=== PATIENT | female | born 1980 | race Caucasian/White ===

== ENCOUNTER 2024-03-14 17:57 | Inpatient (IN) | payer OTHER, SELFPAY ==
[2024-03-14] VITALS (10 sets, daily range): BP systolic 129–165; BP diastolic 74–95; PULSE 65–82; RESP 16–24; TEMP 36.6–36.9; O2SAT 98–100; BMI 25.0; BMI 26.4
--- NOTE | 2024-03-14 18:09 | CT_ITS ---
PROCEDURE INFORMATION: Exam: CT Abdomen And Pelvis With Contrast Exam date and time: 03/14/2024 6:44 PM Age: 44 years old Clinical indication: Abdominal pain; Additional info: Abd pain, HX biliary atresia TECHNIQUE: Imaging protocol: Computed tomography of the abdomen and pelvis with contrast. Radiation optimization: All CT scans at this facility use at least one of these dose optimization techniques: automated exposure control; mA and/or kV adjustment per patient size (includes targeted exams where dose is matched to clinical indication); or iterative reconstruction. Contrast material: ISOVUE; Contrast volume: 75 ml; Contrast route: IV; COMPARISON: No relevant prior studies available. FINDINGS: Liver: Fatty liver infiltration. Pneumobilia. No mass. Gallbladder and biliary ducts: Normal. No calcified stones. No ductal dilation. Pancreas: Peripancreatic fat stranding/fluid collection along pancreatic head to mid body. Indeterminate pancreatic ductal dilatation along the segment. Poorly defined and characterized pancreas from head to body. Spleen: Normal. No splenomegaly. Adrenal glands: Normal. No mass. Kidneys and ureters: Normal. No hydronephrosis. Stomach and bowel: Unremarkable. No obstruction. No mucosal thickening. Appendix: No evidence of appendicitis. Intraperitoneal space: Unremarkable. No free air. No significant fluid collection. Vasculature: Unremarkable. No abdominal aortic aneurysm. Lymph nodes: Unremarkable. No enlarged lymph nodes. Urinary bladder: Unremarkable as visualized. Reproductive: Unremarkable as visualized. Bones/joints: Unremarkable. No acute fracture. Soft tissues: Unremarkable. IMPRESSION: 1. Poorly defined pancreas with peripancreatic fat stranding/fluid collection suspected from head to body with poorly defined pancreatic parenchymal contour and equivocal ductal dilatation. Query pancreatitis symptoms. Consider further imaging clarification with dedicated MRI. 2. Pneumobilia. Considerations include biliary valvular incompetence and/or recent history of instrumentation.
--- NOTE | 2024-03-14 18:09 | ECG_ITS ---
APPROVED REPORT Exam: Resting ECG HR:60 bpm ECG Measurements Heart Rate 60 AXES AZ 146 P 62 QRSd 96 QRS 75 QT 404 T 52 QTc 405 Conclusion Sinus rhythm Electronically signed by : NICOLE SANTIAGO, 03/16/2024 11:32:06
--- OUTSIDE RECORDS SUMMARY | 2024-03-14 18:13 | XMS_ITS | Clinical Summary ---
Author Organization [facility] Address [facility] [place] [address] Phone Care Team Providers Care Clinical Analyst Name Role Phone Abdifatah Uriarte MD Unavailable [phone] Mini Reeder MD Primary Care Provider [phone] Allergies Active Allergy Reactions Criticality Noted Date Comments Latex Rash 04/22/2017 Latex, Natural Rubber Rash 11/07/2016 Metronidazole Rash Low 04/20/2018 Morphine Nausea And Vomiting 02/27/2013 Hydrocodone-Acetaminophen Itching 11/26/2022 Medications aspirin 81 mg Oral Tablet, Delayed Release (E.C.)Indication s:ASD (atrial septal defect),H/O Amplatzer atrial septal defect closure TAKE ONE TABLET BY MOUTH DAILY 90 Tab 2 03/20/20 20 Active ergocalciferol (VITAMIN D) 1,250 mcg (50,000 unit) Oral Capsule Take 1 Capsule by mouth once a week. 12 Capsule 2 08/27/19 24 Active medroxyPROGESTER one (DEPO-PROVERA) 150 mg/mL IM SuspensionIndica tions:Excessive and frequent menstruation INJECT ONE ML INTRAMUSCULARLY FOR 1 DOSE 1 mL 4 10/28/19 24 Active amLODIPine (NORVASC) 2.5 mg Oral Tablet Take 1 tablet by mouth once daily 90 Tablet 12/02/19 24 Active metoprolol succinate (TOPROL-XL) 25 mg Oral Tablet Sustained Release 24 hrIndications:Pa lpitations Take 1 tablet by mouth once daily 90 Tablet 02/11/20 24 Active amoxicillin (AMOXIL) 875 mg Oral Tablet Take 1 Tablet by mouth 2 times daily for 10 days. 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 Did have ext drain temporarily after , 2008 or so. Migraine without aura 09/13/2014 Overactive child 06/15/2013 Back pain 06/18/2012 Thyroid mass 06/18/2012 Allergic rhinitis 02/27/2010 Resolved Problems Problem Noted Date Diagnosed Date Resolved Date Diarrhea 12/26/2017 10/09/2018 Overview (05/01/2018): Overview: Added automatically from request for surgery [id number] Anemia 11/19/2017 10/09/2018 Overview (05/01/2018): Overview: Added automatically from request for surgery [id number] Status post exploratory laparotomy 11/07/2016 10/09/2018 Obesity 09/13/2014 04/19/2016 Normal pelvic exam 03/08/2014 9 Acute pancreatitis 05/27/2011 9 Cholangitis 12/11/2006 10/09/2018 Encounters Date Type Department Care Team Description 03/03/2024 Telephone [facility] [address] [place] [address] Mini Reeder MD Results (Labs 02/26) 03/02/2024 Orders Only [facility] [address] [place] [address] Mini Reeder MD 02/27/2024 2:45 PM EST Office Visit [facility] [address] [place] [address] Mini Reeder MD Dysuria (Primary Dx); Hematuria, unspecified type 02/27/2024 Orders Only [facility] [address] [place] [facility] [place] [address] Mini Reeder MD Hematuria, unspecified type (Primary Dx) 02/26/2024 Travel 02/09/2024 Telephone [facility] [address] [facility] [place] [address] Bud Jones APRN Results 02/09/2024 Refill [facility] [address] [address] Migue Anne MD Medication Refill 02/07/2024 9:00 AM EDT Office Visit [facility] [address] [place] [address] Bud Jones, PACO Annual physical exam (Primary Dx); Chronic midline posterior neck pain; Vitamin B 12 deficiency; Depo-Provera contraceptive status 02/02/2024 Telephone [facility] [address] [place] [address] Mini Reeder MD Appointment Needed (Dep shot ) from Last 3 Months Immunizations Name Administration Dates Next Due DTaP (Daptacel) 04/22/2008 Influenza Patient Reported 06/25/2018 Tdap 10/27/2019,09/26/2015 Surgical History Surgery Date Site/Laterality Comments ABDOMEN SURGERY as , with CCX, Appy for bile duct APPENDECTOMY couple mos old CHOLECYSTECTOMY couple mos old. ABDOMINAL EXPLORATION SURGERY 11/07/2016 Median Arcuate Ligament Division Deborah Parker MD, for biliary stenosis ASD REPAIR 07/09/2017 Amplatzer septal occluder UPPER GASTROINTESTINAL ENDOSCOPY 12/04/2017 at , Dr. Aaron Rocha COLONOSCOPY 01/12/2018 Dr. Aaron Rocha, with [facility]. 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 Diabetes Maternal Grandfather Heart Disease Maternal Grandfather Lung Cancer Maternal Grandfather Breast Cancer Maternal Grandmother COPD Mother Diabetes Mother Heart Attack Mother Heart Disease Mother stentsx7 Heart Failure Mother High Blood Pressure Mother Kidney Disease Mother melanoma Mother treated with larkin rgery Cancer Paternal Aunt uterine Stroke Paternal Grandmother Cancer Paternal Uncle ? type Cervical Cancer Sister 1 Di Ovarian Cancer Sister 1 Di Uterine Cancer Sister 1 Di Relation Name Status Comments Father Maternal Grandfather Maternal Grandmother Mother Paternal Aunt Paternal Grandmother Paternal Uncle Sister 1 Di Alive Sister 2 Alive Social History Tobacco Use Types Packs/Day Years Used Date Smoking Tobacco: Former Cigarettes 0.5 0.2 1 - 04/21/1994 Smokeless Tobacco: Never Alcohol Use Standard Drinks/Week Comments No 0 (1 standard drink = 0.6 oz pur e alcohol) Overall Financial Resource Strain (CARDIA) Answe r Date Recorded Difficulty of Paying Living Expenses Not hard at all 10/29/2019 PHQ-2 Answer Date Recorded PHQ-2 Total Score 0 08/26/2023 Hunger Vital Sign Answer Date Recorded Worried About Running Out of Food in the Last Ye ar Never true 10/29/2019 Ran Out of Food in the Last Year Never true 10/29/2019 PRAPARE - Transportation Answer Date Re corded Lack of Transportation (Medical) No 10/29/2019 Lack of Transportation (Non-Medical) No 10/29/2019 Sexually Active Control Partners Comments Yes Injection Male Comments No Sex and Gender Information Value Date Recorded Sex Assigned at Not on file Legal Sex Female 1:46 PM EDT Gender Identity Not on file Sexual Orientation Not on file Obstetrics History Para Term AB IAB SAB Ectopic Multiple Livin g Live Births 4 2 2 2 2 Date Outcome GA Total Labor Labor/2nd/3rd Weight Sex Type Anes PTL Zarina A1 A5 Name Clin Term Vag-Spo nt Term Vag-Spo nt SAB SAB Comments Age of menarche 12. 2 Vagina l deliveries. Abnormal pap X3. ECC and Cervical bx 10/21/2019 JACQUI I , LSIL On Depo-provera X 2 years. LMP 2 years ago. Last Filed Vital Signs Vital Sign Reading Time Taken Comments Blood Pressure 126/74 02/27/2024 2:55 PM EST Pulse 80 06/21/2023 9:30 AM EST Temperature 36.8 ??C (98.2 ??F) 02/27/2024 2:55 PM ES T Respiratory Rate 20 06/21/2023 9:30 AM EST Oxygen Saturation 98% 06/21/2023 9:30 AM EST Inhaled Oxygen Concentration - - Weight 74.4 kg (164 lb) 02/27/2024 2:55 PM EST Height 162.6 cm (5' 4 ) 02/27/2024 2:55 PM EST Body Mass Index 28.15 02/27/2024 2:55 PM EST Plan of Treatment Upcoming Encounters Date Type Department Care Team (Late st Contact Info) Description 04/24/2024 10:45 AM EST Clinical Support [facility] [address] [place] [address] Health Maintenance Due Date Last Done Comments COVID-19 Vaccine ( season) 2023 Influenza Vaccine (#1) 2023 9, 04/18/2017 (Declined), 04/19/2016 (Declined), Additional history exists Hepatitis B Vaccine (1 of 3 - 19+ 3-dose series) 08/25/2024 Postponed from 2001 (Patient Declined) Annual Wellness Exam 02/06/2025 02/07/2024, 10/09/2018, 04/18/2017, Additional history exists Breast Cancer Screening 08/25/2025 08/26/19 24, 07/10/2022, 10/30/2020, Additional history exists Pap Smear 06/17/2026 06/17/2023, 05/23, 06/04/2022, Additional history exists Cervical Cancer Screening 06/17/2028 HPV/Pap Cotest 06/17/2028 06/17/2023 DTaP/TDaP/Td (4 - Td or Tdap) 10/26/2029 10/27/2019, 09/26/2015, 04/22/2008 Pneumococcal Vaccine 0-64 Aged Out No longer eligible based on patient's age to complete this topic Goals Goal Patient Goal Type Associated Problems Recent Progress Patient-Stated? Author Maintain a healthy diet, exercise regularly and maintain an ideal body weight General No Thea Rubio MD Stay Tobacco Free Lifestyle No Thea Rubio MD Medical Devices Implanted Type Area Oracle Database Developer Device Identifier Shelf Expiration Date Model / Serial / Lot Occluder Septal Amplatzer 7 Fr 14 Mm - [id number] Implanted:Qty: 1 on 07/09/2017 by Genaro Ibarra MD at [facility] [id number] / / [id number] Procedures Procedure Name Priority Date/Time Associated Diagnosis Comments URINE CULTURE (NO STAIN) Routine 02/27/2024 4:05 PM EST Hematuria, unspecified type SEP URINALYSIS POC Routine 02/27/2024 3: 57 PM EST Dysuria Hematuria, unspecified type VITAMIN B12/ FOLIC ACID Routine 02/07/2024 10:16 AM EDT Vitamin B 12 deficiency THYROID STIMULATING HORMONE Routine 02/07/2024 10:16 AM EDT Annual physical exam LIPID SCREEN Routine 02/07/2024 10:16 AM EDT Annual physical exam HEMOGLOBIN A1C Routine 02/07/2024 10:16 AM EDT Annual physical exam COMPREHENSIVE METABOLIC PANEL Routine 02/07/2024 10:16 AM EDT Annual physical exam CBC Routine 02/07/2024 10:16 AM EDT Annual physical exam MM MAMMO DIGITAL MADELEINE SCREEN BILAT Routine 08/26/2023 7:37 AM EDT Encounter for screening mammogram for malignant neoplasm of breast [facility] CYTOLOGY ORDER Routine 06/17/2023 9:36 AM EST Well woman exam with routine gynecological exam from Last 3 Months or Most Recently Relevant to Health Maintenance Results * (ABNORMAL) URINE CULTURE (NO STAIN) (02/27/2024 4:05 PM EST) Culture Positive Growth(A) 03/02/2024 11:20 AM EST [facility] Culture 20,000 CFU/mL Streptococcus agalactiae (Group B) SUSCEPTIB ILITY RESULT 03/02/2024 11:20 AM EST [facility] Comment: isolated in addition to multiple bacterial species consistent with urogenital commensal organisms. No further workup. Urine URINE SPECIMEN COLLECTION, CLEAN CATCH / Unknown 02/27/2024 4:05 PM EST 02/27/2024 4:05 PM EST us Mini Reeder MD MICROBIOLOGY - GENERAL ORDERAB LES Final Result [facility] [address] [facility] , [place] [address] * (ABNORMAL) SEP URINALYSIS POC (02/27/2024 3:57 PM EST) UA Color POC Yellow Color 02/27/2024 4:00 PM EST [facility] [place] [facility] Appear POC Clear Clear 02/27/2024 4:00 PM EST [facility] [place] [facility] Gluc POC Negative Negative mg/dL 02/27/2024 4:00 PM EST [facility] [place] [facility] Bili POC Negative Negative 02/27/2024 4:00 PM EST [facility] [place] [facility] Ketones POC Negative Negative mg/dL 02/27/2024 4:00 PM EST [facility] [place] [facility] SG POC 1.015 1.001 - 1.035 no units 02/27/2024 4:00 PM EST [facility] [place] [facility] Blood POC Trace-Intact (A) Negative 02/27/2024 4:00 PM EST [facility] [place] [facility] pH POC 7.0 5.0 - 8.0 pH 02/27/2024 4:00 PM EST [facility] [place] [facility] Protein POC Negative Negative mg/dL 02/27/2024 4:00 PM EST [facility] [place] [facility] Urobilinogen POC 1.0 0.2, 1.0 02/27/2024 4:00 PM EST [facility] [place] [facility] Nitrite POC Negative Negative 02/27/2024 4:00 PM EST [facility] [place] [facility] Leuk Est POC Small(A) Negative 4:00 PM EST [facility] [place] Urine URINE SPECIMEN COLLECTION / Unknown 02/27/2024 3:57 PM EST 02/27/2024 4:00 PM EST Mini Reeder MD POINT OF CARE TEST ORDERABLES Final Result Performing Organization Address [facility] de Phone Number [address] [address] * VITAMIN B12/ FOLIC ACID (02/07/2024 10:16 AM EDT) Vitamin B12 416 232 - 1,245 pg/mL 02/07/2024 3:28 PM EDT [email or web address] Folate 9.21 >=4.80 ng/mL 02/07/2024 3:28 PM EDT [email or web address] Blood VENOUS BLOOD / Unknown Venipuncture / Unknown 02/07/2024 10:16 AM EDT 02/07/2024 10:16 AM EDT Narrative [email or web address] - 02/07/2024 3:28 PM EDT Ingestion of abimael doses of biotin (>5 mg/day) taken within 8 hours of drawing blood sample can interfere with this immunoassay test. us Bud Jones APRN CHEMISTRY ORDERABLES Final R esult Performing Organization Address City/[facility] Co de Phone Number [email or web address], [facility] [address] [facility] , [address] [place] [phone] * CBC (02/07/2024 10:16 AM EDT) WBC 6.8 3.7 - 10.3 x10(3)/mcL 02/07/2024 2:30 PM EDT [email or web address] RBC 4.75 3.90 - 5.20 x10(6)/mcL 02/07/2024 2:30 PM EDT [email or web address] Hgb 13.4 11.2 - 15.7 g/dL 02/07/2024 2:30 PM EDT [email or web address] Hct 41.8 34.0 - 45.0 % 02/07/2024 2:30 PM EDT [facility] MCV 88.0 80.0 - 100.0 fL 02/07/2024 2:30 PM EDT [facility] MCH 28.2 26.0 - 34.0 pg 02/07/2024 2:30 PM EDT [facility] MCHC 32.1 30.7 - 35.5 g/dL 02/07/2024 2:30 PM EDT [facility] RDW 12.7 <=14.9 % 02/07/2024 2:30 PM EDT [facility] Platelet 319 155 - 369 x10(3)/mcL 02/07/2024 2:30 PM EDT [email or web address], [facility] MPV 9.7 8.8 - 12.5 fL 02/07/2024 2:30 PM EDT [email or web address], [facility] Blood VENOUS BLOOD / Unknown Venipuncture / Unknown 02/07/2024 10:16 AM EDT 02/07/2024 10:16 AM EDT Bud Jones APRN HEMATOLOGY ORDERABLES Final Result Performing Organization Address City/[facility]/ZIP Co de Phone Number [email or web address] [address] [facility] , [place] [address] * THYROID STIMULATING HORMONE (02/07/2024 10:16 AM EDT) [facility] TSH 1.450 0.270 - 4.200 mcIU/mL 02/07/2024 3:09 PM EDT [email or web address], [facility] Blood VENOUS BLOOD / Unknown Venipuncture / Unknown 02/07/2024 10:16 AM EDT 02/07/2024 10:16 AM EDT Narrative [email or web address], [facility] - 02/07/2024 3:09 PM EDT Ingestion of abimael doses of biotin (>5 mg/day) taken within 8 hours of drawing blood sample can interfere with this immunoassay test. Bud Jones APRN CHEMISTRY ORDERABLES Final R esult Performing Organization Address City/[facility]/ZIP Co de Phone Number [facility], [facility] [address] [facility] , [address] [place] [phone] * HEMOGLOBIN A1C (02/07/2024 10:16 AM EDT) [facility] Hgb A1C 5.3 4.2 - 5.6 % 02/07/2024 2:52 PM EDT [facility] Est. Avg Glucose 105 mg/dL 02/07/2024 2:52 PM EDT [facility] Blood VENOUS BLOOD / Unknown Venipuncture / Unknown 02/07/2024 10:16 AM EDT 02/07/2024 10:16 AM EDT Narrative [facility] - 02/07/2024 2:52 PM EDT REFERENCE RANGE: Normal: 4.0-5.6% Pre-diabetes: 5.7-6.4% Provisional diagnosis of diabetes: >6.4% Hgb F>10% and anything which shortens red cell survival, such as hemolytic anemia, or unstable hemoglobin variants such as HbSS, HbSC, or HbCC, will lower the HbA1c value associated with a given level of glycemic control. ? us Bud Jones APRN CHEMISTRY ORDERABLES Final R esult [facility] [address] [facility] , [address] [place] [phone] [facility] 1 [place] [address] * LIPID SCREEN (02/07/2024 10:16 AM EDT) [facility] Cholesterol 161 <200 mg/dL 02/07/2024 3:09 PM EDT [facility] [employer] Comment: < 200 ?Desirable 200 - 239 ? Borderline High >= 240 ?High Triglyceride 74 <150 mg/dL 02/07/2024 3:09 PM EDT [facility] [employer] Comment: < 150 ? Normal 150 - 199 ?Borderline High 200 - 499 ?High ??>= 500 ? Very High HDL 52 >=40 mg/dL 02/07/2024 3:09 PM EDT [facility] Comment: ??> 60 ?Optimal 40 - 60 ?Acceptable ?? < 40 ?Low LDL Calculated 95 <100 mg/dL 02/07/2024 3:09 PM EDT [facility] Comment: < 100 ?Optimal 100 - 129 ? Near or above optimal 130 - 159 ? Borderline High 160 - 189 ? High >= 190 ?Very High Non-HDL-C Calculated 109 <=129 mg/dL 02/07/2024 3:09 PM EDT [email or web address] Comment: <130 ?Desirable 130-159 Above Desirable 160-189 Borderline High 190-219 High >= 220 ??Very High Fasting Specimen? Unknown None 024 3:09 PM EDT [facility] Blood VENOUS BLOOD / Unknown Venipuncture / Unknown 02/07/2024 10:16 AM EDT 02/07/2024 10:16 AM EDT Bud Jones APRN CHEMISTRY ORDERABLES Final R esult Performing Organization Address [facility]/State/ZIP Co de Phone Number [email or web address], [facility] [address] [facility], [address] [place] [phone] [facility] 1 [place] [address] * COMPREHENSIVE METABOLIC PANEL (02/07/2024 10:16 AM EDT) Sodium 141 136 - 145 mmol/L 02/07/2024 3:09 PM EDT [facility] Potassium 4.3 3.5 - 5.0 mmol/L 02/07/2024 3:09 PM EDT [facility] Chloride 106 98 - 107 mmol/L 02/07/2024 3:09 PM EDT [facility] Total CO2 23 22 - 29 mmol/L 02/07/2024 3:09 PM EDT [facility] Anion Gap 12 7 - 16 mmol/L 02/07/2024 3:09 PM EDT [facility] Calcium 9.0 8.6 - 10.4 mg/dL 02/07/2024 3:09 PM EDT [facility] Glucose Lvl 79 70 - 99 mg/dL 02/07/2024 3:09 PM EDT [facility] BUN 10 6 - 20 mg/dL 02/07/2024 3:09 PM EDT [facility] Creatinine 0.82 0.51 - 1.30 mg/dL 02/07/2024 3:09 PM EDT [facility] Albumin 3.9 3.5 - 5.2 gm/dL 02/07/2024 3:09 PM EDT [facility] Total Protein 6.9 6.4 - 8.3 gm/dL 02/07/2024 3:09 PM EDT [facility] Bili Total 0.4 0.2 - 1.3 mg/dL 02/07/2024 3:09 PM EDT [facility] ALT 5 <=41 U/L 02/07/2024 3:09 PM EDT [facility] AST 15 <=40 U/L 02/07/2024 3:09 PM EDT [facility] Alk Phos 77 36 - 123 U/L 02/07/2024 3:09 PM EDT [facility] eGFR (CKD-EPIcr 2020) 91 >=60 mL/min/1.7 3 m2 02/07/2024 3:09 PM EDT [facility] Comment:Estimated GFR was ca lculated using the CKD-EPIcr (2020) equation refit without race. The equation is recommended by the National [employer] - [place] [employer] Task Force. Blood VENOUS BLOOD / Unknown Venipuncture / Unknown 02/07/2024 10:16 AM EDT 02/07/2024 10:16 AM EDT us Bud Jones SAUSAGE STRINGER CHEMISTRY ORDERABLES Final R esult [facility] [address] [facility] [address] [place] [address] [address] * MM MAMMO DIGITAL MADELEINE SCREEN BILAT (08/26/2023 7:37 AM EDT) Anatomical Region Laterality Modality Breast Bilateral Mammography 08/26/2023 7:54 AM EDT Impressions 08/26/2023 7:54 AM EDT Negative ??([id number]) ~ RECOMMENDATION: Routine screening mammogram in 1 year. ~ DISCLAIMER * Any patient with a palpable abnormality, unexplained by breast imaging, should be managed on clinical basis by the attending physician. * Breast imaging has a false negative rate of 15%. * The patient was notified by mail of the results of this examination. *The patient's information was entered into a reminder system with a target due date for the next mammogram, in accordance with the [place] [employer] and the Society of Breast Imaging recommendations. Narrative 08/26/2023 7:54 AM EDT Procedure:MM MAMMO DIGITAL MADELEINE SCREEN BILAT ~ Reason for exam: screening, asymptomatic. Z12.31-Encounter for screening mammogram for malignant neoplasm of rokshl-KLE-87-CM ~ MM MAMMO DIGITAL MADELEINE SCREEN BILAT Bilateral CC and MLO view(s) were taken. The breast tissue is heterogeneously dense. ??This may lower the sensitivity of mammography. Prior study comparison: Compared with prior studies the most recent being 07/10/22, 10/30/20 No mammographic evidence of malignancy. ~ Procedure Note Charisma Navarrete MD - 08/26/2023 Procedure:MM MAMMO DIGITAL MADELEINE SCREEN BILAT ~ Reason for exam: screening, asymptomatic. Z12.31-Encounter for screening mammogram for malignant neoplasm of uyhksb-BHC-87-CM ~ MM MAMMO DIGITAL MADELEINE SCREEN BILAT Bilateral CC and MLO view(s) were taken. The breast tissue is heterogeneously dense. This may lower thesensitivity of mammography. Prior study comparison: Compared with prior studies the most recentbeing 07/10/22, 10/30/20 No mammographic evidence of malignancy. ~ IMPRESSION: Negative ([id number]) ~ RECOMMENDATION: Routine screening mammogram in 1 year. ~ DISCLAIMER * Any patient with a palpable abnormality, unexplained by breast imaging, should be managed on clinical basis by the attending physician. * Breast imaging has a false negative rate of 15%. * The patient was notified by mail of the results of this examination. *The patient's information was entered into a reminder system with atarget due date for the next mammogram, in accordance with the [place] [employer] and the Society of Breast Imaging recommendations. Misty Gillespie MD IMG MAMMOGRAPHY ORDERABLES Final Result from Last 3 Months or Most Recently Relevant to Health Maintenance Insurance [id number] [id number] Care Teams Clinical Analyst Relationship Specialty Start Date End Date Mini Reeder MD [address] [place] [address] PCP - General Family Medicine 08/26/23 Abdifatah Uriarte MD [address] [place] [phone] Consulting Physician Obstetrics & Gynecology-Gynecologic Oncology 12/16/19
--- OUTSIDE RECORDS SUMMARY | 2024-03-14 18:14 | XMS_ITS | Encounter Summary ---
Author Organization [place] [address] Care Team Providers Care Irish Moss Bleacher Name Role Phone Abdifatah Uriarte MD Unavailable [phone] Abidfatah Geiger MD Primary Care Provider [phone] Reason for Visit * Reason Onset Date Comments Results 06/24/2023 labs Follow-up 06/24/2023 ED f/u Encounter Details Date Type Department Care Team (Late st Contact Info) Description 06/24/2023 Telephone [facility] [address] [place] [address] Abdifatah Geiger MD [address] [place] [address] Results (labs); Follow-up (ED f/u) Social History Tobacco Use Types Packs/Day Years Used Date Smoking Tobacco: Former Cigarettes 0.5 0.2 1 - 04/21/1994 Smokeless Tobacco: Never Alcohol Use Standard Drinks/Week Comments No 0 (1 standard drink = 0.6 oz pur e alcohol) Overall Financial Resource Strain (CARDIA) Answe r Date Recorded Difficulty of Paying Living Expenses Not hard at all 10/29/2019 PHQ-2 Answer Date Recorded PHQ-2 Score 2 09/11/2018 Hunger Vital Sign Answer Date Recorded Worried [...] on file Sexual Orientation Not on file documented as of this encounter Miscellaneous Notes * Telephone Encounter - Antonietta Richards - 06/26/2023 1:55 PM EST She will call back * Telephone Encounter - Breezy Rubio MA - 06/26/2023 1:49 PM EST Needs an ER visit f/u and discuss result also You can schedule her with PA if has opening * Telephone Encounter - Allyn Barbosa MA - 06/26/2023 1:46 PM EST Select the most appropriate reason for this telephone message: Other Who is calling (name & relationship to patient if not the patient): Patient What is needed OR why are they calling: checking status of her labs results from the ER. She is asking if another provider can review results for PCP? Please advise When is this needed by: jeffry Where does this information need to go: any other provider in the office Additional information: * Telephone Encounter - Brittany Arboleda - 06/24/2023 10:59 AM EST Select the most appropriate reason for this telephone message: Test Result(s) Purpose of call: Patient seeking results Type of test: Lab Date of test: 06/21/23 Who ordered the test: Hospital Where was test performed: [facility] Additional Notes: Pt states she went to the ED on Friday for chest tightness and sob. Pt states she is concerned about BUN test, CO2 and platelets. Pt states she was advised her Echo and heart functions were normal. Pt declined appointment at this time. Pt requesting message be sent to PCP. Pt states she is feeling fine today just tired which is normal for her. Please advise. documented in this encounter Plan of Treatment Upcoming Encounters Date Type Department Care Team (Late st Contact Info) Description 04/24/2024 10:45 AM EST Clinical Support [facility] [address] [place] [address] documented as of this encounter Goals Goal Patient Goal Type Associated Problems Recent Progress Patient-Stated? Author Maintain a healthy diet, exercise regularly and maintain an ideal body weight General No Thea Rubio MD Stay Tobacco Free Lifestyle No Thea Rubio MD documented as of this encounter Visit Diagnoses Not on filedocumented in this encounter Additional Health Concerns Assessment Noted Time PHQ-9 Depression Total Score: 2 10/07/19 18 8:00 AM EDT PHQ-2 Depression Total Score: 2 10/07/19 18 8:00 AM EDT documented as of this encounter Care Teams Irish Moss Bleacher Relationship Specialty Start Date End Date Abdifatah Geiger MD [address] [place] [address] PCP - General Family Medicine 07/17/22 08/25/23 Abdifatah Uriarte MD [address] [place] [address] [place] [address] Consulting Physician Obstetrics & Gynecology-Gynecologic Oncology 12/16/19 documented as of this encounter
--- OUTSIDE RECORDS SUMMARY | 2024-03-14 18:14 | XMS_ITS | Encounter Summary ---
Author Organization [place] [address] Care Team Providers Care Ear Mold Laboratory Technician Name Role Phone Abdifatah Uriarte MD Unavailable [phone] Mini Reeder MD Primary Care Provider [phone] Reason for Visit * Reason Onset Date Comments Appointment Needed 10/03/2023 nurse-B12 tin t Encounter Details Date Type Department Care Team (Late Contact Info) Description 10/03/2023 Telephone [facility] [address] [place] [id number] Mini Reeder MD [address] [place] [address] Appointment Needed (nurse-B12 shot ) Social History Tobacco Use Types Packs/Day Years [...] on file documented as of this encounter Functional Status * Is the person deaf or does he/she have serious difficulty hearing? Answer Date of Assessment Author No 08/26/2023 10:23 AM EDT Eli Kilgore RMA * Is the person blind or does he/she have serious difficulty seeing even when wearing glasses? Answer Date of Assessment Author No 08/26/2023 10:23 AM EDT Eli Kilgore RMA * Does this person have serious difficulty walking or climbing stairs? Answer Date of Assessment Author No 08/26/2023 10:23 AM EDT Eli Kilgore RMA * Does this person have difficulty dressing or bathing? Answer Date of Assessment Author No 08/26/2023 10:23 AM EDT Eli Kilgore RMA * Because of a physical, mental or emotional condition, does this person have difficulty doing errands alone such as visiting a doctor's office or shopping? Answer Date of Assessment Author No 08/26/2023 10:23 AM EDT Eli Kilgore RMA documented as of this encounter Mental Status * Because of a physical, mental or emotional condition, does this person have serious difficulty concentrating, remembering or making decisions? Answer Entry Date Author No 08/26/2023 10:23 AM EDEli Donnelly RMA documented in this encounter Miscellaneous Notes * Telephone Encounter - Willi Banda - 10/03/2023 3:50 PM EDT Select the most appropriate reason for this telephone message: Appointment Needed Appointment Requested By: Patient Provider Preference: nurse Type of Appt Needed: Nurse Visit Detailed Reason for Appt: B12 shot Requested Timeframe: 11/11 @11am. Pt's daughter Nilda Childress has appt the same day Reason Scheduling Assistance is Needed: Call Center not permitted to schedule Additional Notes: Please adv documented in this encounter Plan of Treatment Upcoming Encounters Date Type Department Care Team (Late st Contact Info) Description 04/24/2024 10:45 AM EST Clinical Support [facility] [address] [place] [address] documented as of this encounter Goals Goal Patient Goal Type Associated Problems Recent Progress Patient-Stated? Author Maintain a healthy diet, exercise regularly and maintain an ideal body weight General No Thea Rubio MD Stay Tobacco Free Lifestyle No Thea Rubio MD documented as of this encounter Visit Diagnoses Not on filedocumented in this encounter Care Teams Ear Mold Laboratory Technician Relationship Specialty Start Date End Date Mini Reeder MD [address] [place], [place] [id number] PCP - General Family Medicine 08/26/23 Abdifatah Uriarte MD [address] [place] [address] [place] [address] Consulting Physician Obstetrics & Gynecology-Gynecologic Oncology 12/16/19 documented as of this encounter
--- OUTSIDE RECORDS SUMMARY | 2024-03-14 18:14 | XMS_ITS | Encounter Summary ---
Author Organization [place] [address] Care Team Providers Care Artificial Leather Calender Operator Name Role Phone Abdifatah Uriarte MD Unavailable [phone] Mini Reeder MD Primary Care Provider [phone] Reason for Visit * Reason Onset Date Comments Results 03/03/2024 Labs 02/26 Encounter Details Date Type Department Care Team (Late Contact Info) Description 03/03/2024 Telephone [facility] [address] [place] [phone] Mini Reeder MD [address] [place] [address] Results (Labs 02/26) Social History Tobacco Use Types Packs/Day Years [...] encounter Miscellaneous Notes * Telephone Encounter - Corey Cruz RMA - 03/03/2024 5:00 PM EST Left message informing Pt culture showing positive growth for bacteria and medication sent to pharmacy. * Telephone Encounter - Sherri Powers CCMA - 03/03/2024 4:54 PM EST Images from the original note were not included. Select the most appropriate reason for this telephone message: Patient Calling for Results Patient called for results on Lab Which Provider ordered the test? Dr. Reeder Date of test: 02/26 Advised patient of: abnormal result. Patient Instructions/ Questions: She wants to know if the streptococcus agalactiae means a uti? Medications Ordered/Pended (if yes, list medication): Yes amoxicillin Medications/Orders Needed: No Pharmacy Location Verified: Yes Pharmacy Location: [facility] Other: Results given to patient Mini Reeder MD 03/02/2024 6:48 PM EST Small amount of growth on the culture given the symptoms med is sent. documented in this encounter Plan of Treatment Upcoming Encounters Date Type Department Care Team (Late st Contact Info) Description 04/24/2024 10:45 AM EST Clinical Support [facility] [address] [place] [address] documented as of this encounter Goals Goal Patient Goal Type Associated Problems Recent Progress Patient-Stated? Author Maintain a healthy diet, exercise regularly and maintain an ideal body weight General No Thea Rubio MD Stay Tobacco Free Lifestyle No Thea Rubio MD documented as of this encounter Visit Diagnoses Not on filedocumented in this encounter Care Teams Artificial Leather Calender Operator Relationship Specialty Start Date End Date Mini Reeder MD [address] [place] [address] PCP - General Family Medicine 08/26/23 Abdifatah Uriarte MD [address] [place] [address] [place] [address] Consulting Physician Obstetrics & Gynecology-Gynecologic Oncology 12/16/19 documented as of this encounter
--- OUTSIDE RECORDS SUMMARY | 2024-03-14 18:14 | XMS_ITS | Encounter Summary ---
Author [place] [address] Care Team Providers Care Vending Machine Assembler Name Role Phone Abdifatah Uriarte MD Unavailable [phone] Mini Reeder MD Primary Care Provider [phone] Reason for Visit * Reason Comments Contraception Back Pain x14 years Encounter Details Date Type Department Care Team (Late Contact Info) Description 02/07/2024 9:00 AM EDT Office Visit [facility] [address] [place] [phone] Bud Jones, ELEVATOR ADJUSTER [address] [place] [address] Annual physical exam (Primary Dx); Chronic midline posterior neck pain; Vitamin B 12 deficiency; Depo-Provera contraceptive status Social History Tobacco Use Types Packs/Day Years [...] on file documented as of this encounter Last Filed Vital Signs Vital Sign Reading Time Taken Comments Blood Pressure 118/72 02/07/2024 9:22 AM EDT Pulse - - Temperature 37 ??C (98.6 ??F) 02/07/2024 9:22 AM EDT Respiratory Rate - - Oxygen Saturation - - Inhaled Oxygen Concentration - - Weight 73.1 kg (161 lb 3.2 oz) 02/07/2024 9:22 A M EDT Height 164.5 cm (5' 4.75 ) 02/07/2024 9:22 AM ED T Body Mass Index 27.03 02/07/2024 9:22 AM EDT documented in this encounter Functional Status * Is the person deaf or does he/she have serious difficulty hearing? Answer Date of Assessment Author No 08/26/2023 10:23 AM Eli Nguyen RMA * Is the person blind or does he/she have serious difficulty seeing even when wearing glasses? Answer Date of Assessment Author No 08/26/2023 10:23 AM Eli Nguyen RMA * Does this person have serious difficulty walking or climbing stairs? Answer Date of Assessment Author No 08/26/2023 10:23 AM Eli Nguyen RMA * Does this person have difficulty dressing or bathing? Answer Date of Assessment Author No 08/26/2023 10:23 AM Eli Nguyen RMA * Because of a physical, mental or emotional condition, does this person have difficulty doing errands alone such as visiting a doctor's office or shopping? Answer Date of Assessment Author No 08/26/2023 10:23 AM Eli Nguyen RMA documented as of this encounter Mental Status * Because of a physical, mental or emotional condition, does this person have serious difficulty concentrating, remembering or making decisions? Answer Entry Date Author No 08/26/2023 10:23 AM EDT Kilgore, Eli Alexa, RMA documented in this encounter Progress Notes * Bud Jones, ELEVATOR ADJUSTER - 02/07/2024 9:00 AM EDT Vitals: 02/07/24 0922 BP: 118/72 BP Location: Left arm Patient Position: Sitting Temp: 98.6 ??F (37 ??C) TempSrc: Forehead Weight: 161 lb 3.2 oz (73.1 kg) Height: 5' 4.75 (1.645 m) Body mass index is 27.03 kg/m??. SUBJECTIVE: Chief Complaint Patient presents with Contraception Back Pain x14 years HPI:Well Adult: Subjective Ms. Childress is a 44 y.o. female here for an annual wellness visit. Diet: regular Exercise: intermittent Activities of Daily Living: Functional Level: Self-care ADL Limitations: none Social Interaction Screen: Do you have concerns about issues that may impact social interaction such as developmental or behavioral/mental health conditions? no Health Maintenance Due Topic Date Due Annual Wellness Exam 10/10/2019 Health Maintenance Topic Date Due Annual Wellness Exam 10/10/2019 Influenza Vaccine (1) 02/08/2024 (Originally 12/21/2023) COVID-19 Vaccine ( - 2023- season) 2024 (Originally 12/21/2023) Hepatitis B Vaccine (1 of 3 - 19+ 3-dose series) 08/25/2024 (Originally 2001) Breast Cancer Screening 08/25/2025 Cervical Cancer Screening 06/17/2028 DTaP/TDaP/Td (4 - Td or Tdap) 10/26/2029 Immunization History Administered Date(s) Administered DTaP (Daptacel) 04/22/2008 Influenza Patient Reported 06/25/2018 Tdap 09/26/2015, 10/27/2019 Patient Active Problem List Diagnosis Congenital biliary atresia (HCC) Migraine without aura Celiac artery stenosis (HCC) Other chest pain ASD (atrial septal defect) Cyanocobalamin deficiency Allergic rhinitis Back pain Celiac artery compression syndrome (HCC) Overactive child Anaclitic depression Thyroid mass Dysplasia of cervix, low grade (JACQUI 1) S/P closure of congenital atrial septal defect by percutaneous transcatheter technique Past Medical History: Diagnosis Date Abnormal glandular Papanicolaou smear of cervix Bile duct stenosis (HCC) states bile duct dumps directly Biliary atresia (HCC) Depression Migraines Past Surgical History: Procedure Laterality Date ABDOMEN SURGERY as , with CCX, Appy for bile duct ABDOMINAL EXPLORATION SURGERY 11/07/2016 Median Arcuate Ligament Division Deborah Parker MD, for biliary stenosis APPENDECTOMY couple mos old ASD REPAIR 07/09/2017 Amplatzer septal occluder CHOLECYSTECTOMY couple mos old. Infant COLONOSCOPY 01/12/2018 Dr. Aaron Rocha, with [facility]. Normal colon UPPER GASTROINTESTINAL ENDOSCOPY 12/04/2017 at , Dr. Aaron Rocha Allergies Allergen Reactions Latex Rash Latex, Natural Rubber Rash Morphine Nausea And Vomiting Vicodin [Hydrocodone-Acetaminophen] Itching Metronidazole Rash Current Outpatient Medications on File Prior to Visit Medication Sig Dispense Refill amLODIPine (NORVASC) 2.5 mg Oral Tablet Take 1 tablet by mouth once daily 90 Tablet 0 aspirin 81 mg Oral Tablet, Delayed Release (E.C.) TAKE ONE TABLET BY MOUTH DAILY 90 Tab 2 ergocalciferol (VITAMIN D) 1,250 mcg (50,000 unit) Oral Capsule Take 1 Capsule by mouth once a week. 12 Capsule 2 medroxyPROGESTERone (DEPO-PROVERA) 150 mg/mL IM Suspension INJECT ONE ML INTRAMUSCULARLY FOR 1 DOSE1 mL 4 metoprolol succinate (TOPROL-XL) 25 mg Oral Tablet Sustained Release 24 hr Take 1 tablet by mouth once daily 90 Tablet 1 No current facility-administered medications on file prior to visit. Social History Socioeconomic History Marital status: Tobacco Use Smoking status: Former Current packs/day: 0.00 Average packs/day: 0.5 packs/day for 0.2 years (0.1 ttl pk-yrs) Types: Cigarettes Start date: 02/07/1994 Quit date: 04/21/1994 Years since quittin.8 Smokeless tobacco: Never Vaping Use Vaping status: Never Used Substance and Sexual Activity Alcohol use: No Alcohol/week: 0.0 oz Drug use: No Sexual activity: Yes Partners: Male control/protection: Injection Social Drivers of Health Financial Resource Strain: Low Risk (10/29/2019) Overall Financial Resource Strain (CARDIA) Difficulty of Paying Living Expenses: Not hard at all Food Insecurity: No Food Insecurity (10/29/2019) Hunger Vital Sign Worried About Running Out of Food in the Last Year: Never true Ran Out of Food in the Last Year: Never true Transportation Needs: No Transportation Needs (10/29/2019) PRAPARE - Transportation Lack of Transportation (Medical): No Lack of Transportation (Non-Medical): No Family History Problem Relation Age of Onset Diabetes Mother Heart Disease Mother stentsx7 High Blood Pressure Mother Heart Attack Mother 35 COPD Mother Kidney Disease Mother Heart Failure Mother Other (melanoma) Mother treated with surgery Other Father Leigha huddleston, (sp ?), causes head aneurysms. Aneurysm Father Ovarian Cancer Sister 32 Cervical Cancer Sister Uterine Cancer Sister Cancer Paternal Aunt uterine Cancer Paternal Uncle ? type Breast Cancer Maternal Grandmother Diabetes Maternal Grandfather Heart Disease Maternal Grandfather Lung Cancer Maternal Grandfather Stroke Paternal Grandmother No results found. No results found for this visit on 02/07/24. Patient Care Team: Mini Reeder MD as PCP - General (Family Medicine) Abdifatah Uriarte MD as Consulting Physician (Obstetrics & Gynecology- Gynecologic Oncology) Lab Results Component Value Date WBC 6.5 06/21/2023 HGB 13.8 06/21/2023 HCT 41.1 06/21/2023 PLT 394 (H) 06/21/2023 CHOLESTEROL 139 10/10/2021 TRIG 98 10/10/2021 HDL 42 10/10/2021 LDLCALC 79 10/10/2021 ALT 20 10/10/2021 AST 15 10/10/2021 NA 140 06/21/2023 K 3.5 06/21/2023 CL 106 06/21/2023 CREATININE 0.73 06/21/2023 BUN 4 (L) 06/21/2023 CO2 20 (L) 06/21/2023 INR 1.06 07/04/2017 GLU 87 06/21/2023 TSHREFLEX 1.260 12/06/2023 Additional issues addressed today: Contraception This is a new problem. The current episode started today. Associated symptoms include neck pain. Pertinent negatives include no abdominal pain, arthralgias, chest pain, chills, congestion, coughing, fever, headaches or rash. Back Pain This is a chronic problem. The current episode started more than 1 year ago. The problem occurs constantly. The problem has been waxing and waning. Associated symptoms include neck pain. Pertinent negatives include no abdominal pain, arthralgias, chest pain, chills, congestion, coughing, fever, headaches or rash. The symptoms are aggravated by standing. She has tried acetaminophen for the symptoms. The treatment provided mild relief. Also with chronic neck/back pain. Has taken tylenol without improvement. Also with history of b12 deficiency for which she has received injections prior. Also for contraception management. Currently receiving depo provera without side effects. Review of Systems Constitutional: Negative for chills and fever. HENT: Negative for congestion, ear discharge and ear pain. Eyes: Negative for pain, discharge and itching. Respiratory: Negative for cough, shortness of breath and wheezing. Cardiovascular: Negative for chest pain and palpitations. Gastrointestinal: Negative for abdominal distention and abdominal pain. Genitourinary: Negative for difficulty urinating, dysuria and hematuria. Musculoskeletal: Positive for back pain and neck pain. Negative for arthralgias and gait problem. Skin: Negative for rash and wound. Neurological: Negative for dizziness, light-headedness and headaches. Psychiatric/Behavioral: The patient is not nervous/anxious. OBJECTIVE: Physical Exam Constitutional: General: She is not in acute distress. Appearance: She is well-developed. She is not diaphoretic. HENT: Head: Normocephalic and atraumatic. Right Ear: External ear normal. Left Ear: External ear normal. Nose: Nose normal. Mouth/Throat: Pharynx: No oropharyngeal exudate. Eyes: General: Right eye: No discharge. Left eye: No discharge. Conjunctiva/sclera: Conjunctivae normal. Pupils: Pupils are equal, round, and reactive to light. Neck: Vascular: No JVD. Cardiovascular: Rate and Rhythm: Normal rate and regular rhythm. Heart sounds: Normal heart sounds. No murmur heard. Pulmonary: Effort: Pulmonary effort is normal. No respiratory distress. Breath sounds: Normal breath sounds. No wheezing or rales. Chest: Chest wall: No tenderness. Abdominal: General: Bowel sounds are normal. There is no distension. Palpations: Abdomen is soft. There is no mass. Tenderness: There is no abdominal tenderness. There is no guarding or rebound. Musculoskeletal: General: Normal range of motion. Cervical back: Normal range of motion and neck supple. Skin: General: Skin is warm and dry. Findings: No rash. Neurological: Mental Status: She is alert and oriented to person, place, and time. Psychiatric: Behavior: Behavior normal. Thought Content: Thought content normal. Judgment: Judgment normal. Assessment Assessment & Plan Annual physical exam Orders: CBC; Future COMPREHENSIVE METABOLIC PANEL; Future HEMOGLOBIN A1C; Future LIPID SCREEN; Future THYROID STIMULATING HORMONE; Future CBC COMPREHENSIVE METABOLIC PANEL HEMOGLOBIN A1C LIPID SCREEN THYROID STIMULATING HORMONE Chronic midline posterior neck pain Orders: methylPREDNISolone acetate (DEPO-Medrol) injection 120 mg Vitamin B 12 deficiency Orders: cyanocobalamin injection 1,000 mcg VITAMIN B12/ FOLIC ACID; Future VITAMIN B12/ FOLIC ACID Depo-Provera contraceptive status Orders: medroxyPROGESTERone (DEPO-PROVERA) injection 150 mg * Corey Cruz RMA - 02/07/2024 9:00 AM EDT Patient came into the office for a Depo Medrol, depo provera and B12 injections Patient was informed to expect muscle pain after an intramuscular injection and to call the office if there are any issues. Attempted to give Depo Medrol 1.5 mL in right upper outer quadrant and Depo Provera in left upper outer quadrant. Pt refused. Request to injected into deltoids. Explained to Pt possible site reactions. Pt verbalizes understanding. Still insisted to have injections in deltoids. documented in this encounter Plan of Treatment Upcoming Encounters Date Type Department Care Team (Late st Contact Info) Description 04/24/2024 10:45 AM EST Clinical Support [facility] [address] [place] [phone] documented as of this encounter Goals Goal Patient Goal Type Associated Problems Recent Progress Patient-Stated? Author Maintain a healthy diet, exercise regularly and maintain an ideal body weight General No Thea Rubio MD Stay Tobacco Free Lifestyle No Thea Rubio MD documented as of this encounter Procedures Procedure Name Priority Date/Time Associated Diagnosis Comments VITAMIN B12/ FOLIC ACID Routine 02/07/2024 10:16 AM EDT Vitamin B 12 deficiency CBC Routine 02/07/2024 10:16 AM EDT Annual physical exam THYROID STIMULATING HORMONE Routine 02/07/2024 10:16 AM EDT Annual physical exam HEMOGLOBIN A1C Routine 02/07/2024 10:16 AM EDT Annual physical exam LIPID SCREEN Routine 02/07/2024 10:16 AM EDT Annual physical exam COMPREHENSIVE METABOLIC PANEL Routine 02/07/2024 10:16 AM EDT Annual physical exam documented in this encounter Results * VITAMIN B12/ FOLIC ACID (02/07/2024 10:16 AM EDT) Vitamin B12 416 232 - 1,245 pg/mL 02/07/2024 3:28 PM EDT [facility] Folate 9.21 >=4.80 ng/mL 02/07/2024 3:28 PM EDT [employer] Blood VENOUS BLOOD / Unknown Venipuncture / Unknown 02/07/2024 10:16 AM EDT 02/07/2024 10:16 AM EDT Narrative [employer] - 02/07/2024 3:28 PM EDT Ingestion of abimael doses of biotin (>5 mg/day) taken within 8 hours of drawing blood sample can interfere with this immunoassay test. us Bud Jones ELEVATOR ADJUSTER CHEMISTRY ORDERABLES Final R esult [employer] [address] [facility] , [address] [place] [id number] * THYROID STIMULATING HORMONE (02/07/2024 10:16 AM EDT) TSH 1.450 0.270 - 4.200 mcIU/mL 02/07/2024 3:09 PM EDT [employer] Blood VENOUS BLOOD / Unknown Venipuncture / Unknown 02/07/2024 10:16 AM EDT 02/07/2024 10:16 AM EDT Narrative [employer] - 02/07/2024 3:09 PM EDT Ingestion of abimael doses of biotin (>5 mg/day) taken within 8 hours of drawing blood sample can interfere with this immunoassay test. us Bud Jones APRN CHEMISTRY ORDERABLES Final R esult [employer] [address] [facility] , [place] [address] * LIPID SCREEN (02/07/2024 10:16 AM EDT) [facility] Signature Cholesterol 161 <200 mg/dL 02/07/2024 3:09 PM EDT [employer] Comment: < 200 ?Desirable 200 - 239 ? Borderline High >= 240 ?High Triglyceride 74 <150 mg/dL 02/07/2024 3:09 PM EDT [employer] Comment: < 150 ? Normal 150 - 199 ?Borderline High 200 - 499 ?High ??>= 500 ? Very High HDL 52 >=40 mg/dL 02/07/2024 3:09 PM EDT [employer] Comment: ??> 60 ?Optimal 40 - 60 ?Acceptable ?? < 40 ?Low LDL Calculated 95 <100 mg/dL 02/07/2024 3:09 PM EDT [employer] Comment: < 100 ?Optimal 100 - 129 ? Near or above optimal 130 - 159 ? Borderline High 160 - 189 ? High >= 190 ?Very High Non-HDL-C Calculated 109 <=129 mg/dL 02/07/2024 3:09 PM EDT [employer] Comment: <130 ?Desirable 130-159 Above Desirable 160-189 Borderline High 190-219 High >= 220 ??Very High Fasting Specimen? Unknown None 024 3:09 PM EDT [facility] Blood VENOUS BLOOD / Unknown Venipuncture / Unknown 02/07/2024 10:16 AM EDT 02/07/2024 10:16 AM EDT Bud Jones APRN CHEMISTRY ORDERABLES Final R esult Performing Organization Address [facility] de Phone Number [facility] [employer] [facility] [address] [facility] , [place] [address] [facility] [address] [place] [address] * HEMOGLOBIN A1C (02/07/2024 10:16 AM EDT) Hgb A1C 5.3 4.2 - 5.6 % 02/07/2024 2:52 PM EDT [facility] [employer] [facility] Est. Avg Glucose 105 mg/dL 02/07/2024 2:52 PM EDT [facility] Blood VENOUS BLOOD / Unknown Venipuncture / Unknown 02/07/2024 10:16 AM EDT 02/07/2024 10:16 AM EDT Narrative [facility] [employer] [facility] - 02/07/2024 2:52 PM EDT REFERENCE RANGE: Normal: 4.0-5.6% Pre-diabetes: 5.7-6.4% Provisional diagnosis of diabetes: >6.4% Hgb F>10% and anything which shortens red cell survival, such as hemolytic anemia, or unstable hemoglobin variants such as HbSS, HbSC, or HbCC, will lower the HbA1c value associated with a given level of glycemic control. ? Bud Jones APRN CHEMISTRY ORDERABLES Final R esult Performing Organization Address [facility] [address]/[facility] Co de Phone Number [facility] [employer] [facility] [address] [facility] , [place] [address] [facility] [address] [place] [address] * COMPREHENSIVE METABOLIC PANEL (02/07/2024 10:16 AM EDT) Sodium 141 136 - 145 mmol/L 02/07/2024 3:09 PM EDT [facility] [employer] [facility] Potassium 4.3 3.5 - 5.0 mmol/L 02/07/2024 3:09 PM EDT [facility] Chloride 106 98 - 107 mmol/L 02/07/2024 3:09 PM EDT [facility] Total CO2 23 22 - 29 mmol/L 02/07/2024 3:09 PM EDT [facility] Anion Gap 12 7 - 16 mmol/L 02/07/2024 3:09 PM EDT [facility] Calcium 9.0 8.6 - 10.4 mg/dL 02/07/2024 3:09 PM EDT [facility] Glucose Lvl 79 70 - 99 mg/dL 02/07/2024 3:09 PM EDT [facility] BUN 10 6 - 20 mg/dL 02/07/2024 3:09 PM EDT [facility] Creatinine 0.82 0.51 - 1.30 mg/dL 02/07/2024 3:09 PM EDT [facility] Albumin 3.9 3.5 - 5.2 gm/dL 02/07/2024 3:09 PM EDT [facility] Total Protein 6.9 6.4 - 8.3 gm/dL 02/07/2024 3:09 PM EDT [facility] Bili Total 0.4 0.2 - 1.3 mg/dL 02/07/2024 3:09 PM EDT [facility] ALT 5 <=41 U/L 02/07/2024 3:09 PM EDT [facility] AST 15 <=40 U/L 02/07/2024 3:09 PM EDT [facility] Alk Phos 77 36 - 123 U/L 02/07/2024 3:09 PM EDT [facility] eGFR (CKD-EPIcr 2020) 91 >=60 mL/min/1.7 3 m2 02/07/2024 3:09 PM EDT [facility] Comment:Estimated GFR was ca lculated using the CKD-EPIcr (2020) equation refit without race. The equation is recommended by the National Kidney Foundation - [place] [employer] of Nephrology Task Force. Blood VENOUS BLOOD / Unknown Venipuncture / Unknown 02/07/2024 10:16 AM EDT 02/07/2024 10:16 AM EDT Bud Jones APRN CHEMISTRY ORDERABLES Final R esult [facility] [address] [facility], [place] [address] [facility] [address] [place] [address] * CBC (02/07/2024 10:16 AM EDT) [facility] WBC 6.8 3.7 - 10.3 x10(3)/mcL 02/07/2024 2:30 PM EDT [facility] RBC 4.75 3.90 - 5.20 x10(6)/mcL 02/07/2024 2:30 PM EDT [facility] Hgb 13.4 11.2 - 15.7 g/dL 02/07/2024 2:30 PM EDT [facility] Hct 41.8 34.0 - 45.0 % 02/07/2024 2:30 PM EDT [facility] MCV 88.0 80.0 - 100.0 fL 02/07/2024 2:30 PM EDT [facility] MCH 28.2 26.0 - 34.0 pg 02/07/2024 2:30 PM EDT [facility] MCHC 32.1 30.7 - 35.5 g/dL 02/07/2024 2:30 PM EDT [facility] RDW 12.7 <=14.9 % 02/07/2024 2:30 PM EDT [facility] Platelet 319 155 - 369 x10(3)/mcL 02/07/2024 2:30 PM EDT [facility] MPV 9.7 8.8 - 12.5 fL 02/07/2024 2:30 PM EDT [facility] Blood VENOUS BLOOD / Unknown Venipuncture / Unknown 02/07/2024 10:16 AM EDT 02/07/2024 10:16 AM EDT us Bud Jones APRN HEMATOLOGY ORDERABLES Final Result [facility] [address] [facility] [place] [address] [place] [address] documented in this encounter Visit Diagnoses Diagnosis Annual physical exam- Primary Routine general medical examination at a health care facility Chronic midline posterior neck pain Cervicalgia Vitamin B 12 deficiency Other B-complex deficiencies Depo-Provera contraceptive status Surveillance of other previously prescribed contraceptive method documented in this encounter Administered Medications Inactive Administered Medications - up to 1 most recent administrations Medication Order MAR Action Action Date Dose Rate Site cyanocobalamin injection 1,000 mcg 1,000 mcg, Intramuscular, ONCE, 1 dose, On 02/07/24 at 0930, Dx: 1. Vitamin B 12 deficiencyIndications:Vi tamin B 12 deficiency Given 02/07/2024 10:05 AM EDT 1,000 mcg Right Upper Outer Quadrant medroxyPROGESTERone (DEPO-PROVERA) injection 150 mg 150 mg, Intramuscular, ONCE, 1 dose, On 02/07/24 at 0930, Dx: 1. Depo-Provera contraceptive statusIndications:Depo-P rovera contraceptive status Given 02/07/2024 10:05 AM EDT 150 mg Left Deltoid methylPREDNISolone acetate (DEPO-Medrol) injection 120 mg 120 mg, Intramuscular, ONCE, 1 dose, On 02/07/24 at 0945, Dx: 1. Chronic midline posterior neck painIndications:Chronic midline posterior neck pain Given 02/07/2024 10:05 AM EDT 120 mg Right Deltoid documented in this encounter Care Teams Vending Machine Assembler Relationship Specialty Start Date End Date Mini Reeder MD [address] [place] [id number] PCP - General Family Medicine 08/26/23 Abdifatah Uriarte MD [address] [facility] [place] [id number] Consulting Physician Obstetrics & Gynecology-Gynecologic Oncology 12/16/19 documented as of this encounter
--- OUTSIDE RECORDS SUMMARY | 2024-03-14 18:14 | XMS_ITS | Encounter Summary ---
Author Organization [place] [address] Care Team Providers Care Human Relations Teacher Name Role Phone Abdifatah Uriarte MD Unavailable [phone] Mini Reeder MD Primary Care Provider [phone] Reason for Visit * Reason Comments Establish Care Annual Exam Hypertension Encounter Details Date Type Department Care Team (Late st Contact Info) Description 08/26/2023 10:30 AM EDT Office Visit [facility] [address] [place] [phone] Mini Reeder MD [address] [place] [address] ASD (atrial septal defect) (Primary Dx); Celiac artery stenosis (HCC); Celiac artery compression syndrome (HCC); Congenital biliary atresia (HCC); Cyanocobalamin deficiency; Migraine without aura and without status migrainosus, not intractable; S/P closure of congenital atrial septal defect by percutaneous transcatheter technique; Depo-Provera contraceptive status; Vitamin B 12 deficiency; Chronic midline posterior neck pain Social History Tobacco Use Types Packs/Day Years Used Date Smoking Tobacco: Former Cigarettes 0.5 0.2 1 - 04/21/1994 Smokeless Tobacco: Never Tobacco Cessation:Counseling Given: Not Answered Alcohol Use Standard Drinks/Week Comments No 0 [...] Sign Reading Time Taken Comments Blood Pressure 120/80 08/26/2023 10:25 AM EDT Pulse - - Temperature 36.5 ??C (97.7 ??F) 08/26/2023 10:25 AM E DT Respiratory Rate - - Oxygen Saturation - - Inhaled Oxygen Concentration - - Weight 72.6 kg (160 lb) 08/26/2023 10:25 AM EDT Height 164.5 cm (5' 4.75 ) 08/26/2023 10:25 AM E DT Body Mass Index 26.83 08/26/2023 10:25 AM EDT documented in this encounter Functional Status * Is the person deaf or does he/she have serious difficulty hearing? Answer Date of Assessment Author No 08/26/2023 10:23 AM Eli Nguyen RMA * Is the person blind or does he/she have serious difficulty seeing even when wearing glasses? Answer Date of Assessment Author No 08/26/2023 10:23 AM EDEli Donnelly RMA * Does this person have serious [...] of Assessment Author No 08/26/2023 10:23 AM EDEli Donnelly RMA documented as of this encounter Mental Status * Because of a physical, mental or emotional condition, does this person have serious difficulty concentrating, remembering or making decisions? Answer Entry Date Author No 08/26/2023 10:23 AM EDT Eli Kilgore RMA documented in this encounter Progress Notes * Mini Reeder MD - 08/26/2023 10:30 AM EDT Vitals: 08/26/23 1025 BP: 120/80 Temp: 97.7 ??F (36.5 ??C) Weight: 160 lb (72.6 kg) Height: 5' 4.75 (1.645 m) Body mass index is 26.83 kg/m??. SUBJECTIVE: Chief Complaint Patient presents with [facility] Care Annual Exam Hypertension HPI: Well Adult: Subjective Ms. Childress is a 43 y.o. female here for an annual wellness visit. Diet: good Exercise: good Activities of Daily Living: Functional Level: Self-care ADL Limitations: none Social Interaction Screen: Do you have concerns about issues that may impact social interaction such as developmental or behavioral/mental health conditions? no There are no preventive care reminders to display for this patient. Health Maintenance Topic Date Due COVID-19 Vaccine (2022- season) 2024 (Originally 12/20/2022) Hepatitis B Vaccine (1 of 3 - 19+ 3-dose series) 08/25/2024 (Originally 2001) Influenza Vaccine (Season Ended) 2023 Annual Wellness Exam 06/17/2024 Cervical Cancer Screening 06/17/2028 DTaP/TDaP/Td (4 - [...] Infant COLONOSCOPY 01/12/2018 Dr. Aaron Rocha, with [facility] Normal colon UPPER GASTROINTESTINAL ENDOSCOPY 12/04/2017 at , Dr. Aaron Rocha Allergies Allergen Reactions Latex Rash Latex, Natural Rubber Rash Morphine Nausea And Vomiting Vicodin [Hydrocodone-Acetaminophen] Itching Metronidazole Rash Current Outpatient Medications on File Prior to Visit Medication Sig Dispense Refill amLODIPine (NORVASC) 2.5 mg Oral Tablet Take 1 Tablet by mouth daily. 90 Tablet 3 aspirin 81 mg Oral Tablet, Delayed Release (E.C.) TAKE ONE TABLET BY MOUTH DAILY 90 Tab 2 medroxyPROGESTERone (DEPO-PROVERA) 150 mg/mL IM Suspension INJECT ONE ML INTRAMUSCULARLY FOR 1 DOSE1 mL 4 metoprolol succinate (TOPROL-XL) 25 mg Oral Tablet Sustained Release 24 hr Take 1 tablet by mouth once daily 90 Tablet 1 No current facility-administered medications on file prior to visit. Social History Socioeconomic History Marital status: Spouse name: None Number of children: None Years of education: None Highest education level: None Tobacco Use Smoking status: Former Current packs/day: 0.00 Average packs/day: 0.5 packs/day for 0.2 years (0.1 ttl pk-yrs) Types: Cigarettes Start date: 02/07/1994 Quit date: 04/21/1994 Years since quittin.3 Smokeless tobacco: Never Vaping Use Vaping status: Never Used Substance and Sexual Activity Alcohol use: No Alcohol/week: 0.0 oz Drug use: No Sexual activity: Yes Partners: Male control/protection: Injection Social Determinants of Health Financial Resource Strain: Low Risk [...] Grandfather Stroke Paternal Grandmother No results found. Results for orders placed or performed in visit on 08/26/23 VITAMIN B12/ FOLIC ACID Result Value Ref Range Vitamin B12 364 232 - 1,245 pg/mL Folate 8.09 >=4.80 ng/mL Narrative Ingestion of abimael doses of biotin (>5 mg/day) taken within 8 hours of drawing blood sample can interfere with this immunoassay test. VITAMIN D 25 HYDROXY Result Value Ref Range Vit D 25 OH 19.0 (L) 30.0 - 150.0 ng/mL Patient Care Team: Mini Reeder MD as [...] INR 1.06 07/04/2017 GLU 87 06/21/2023 TSHREFLEX 1.720 10/10/2021 Additional issues addressed today: Hypertension: Home reporting of hypertension was reviewed at time of visit. [place] denies any episodes of dizziness, lightheadedness, presyncope, syncope, headache, or chest pain. [place] does not report any new symptoms of possible hypertension sequelae. The patient reports that she is not having significant issues or side effects of current medications/treatments. Review of Systems Constitutional: Positive for fatigue. HENT: Negative. Respiratory: Negative for cough. Cardiovascular: Negative. Gastrointestinal: Negative. Genitourinary: Positive for menstrual problem. Musculoskeletal: Negative. Skin: Negative. Neurological: Negative. Hematological: Negative. Psychiatric/Behavioral: Negative. OBJECTIVE: Physical Exam Vitals and nursing note reviewed. HENT: Head: Normocephalic. Cardiovascular: Rate and Rhythm: Normal rate. Heart sounds: Murmur heard. Pulmonary: Effort: Pulmonary effort is normal. No respiratory distress. Abdominal: Palpations: Abdomen is soft. Tenderness: There is no abdominal tenderness. Musculoskeletal: General: Tenderness present. Skin: General: Skin is warm. Capillary Refill: Capillary refill takes less than 2 seconds. Neurological: General: No focal deficit present. Mental Status: She is alert. Psychiatric: Mood and Affect: Mood normal. 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 Did have ext drain temporarily after , 2008 or so. stable Cyanocobalamin deficiency Overview: Near low side of normal November 2017 Migraine without aura and without status migrainosus, not intractable S/P closure of congenital atrial septal defect by percutaneous transcatheter technique Depo-Provera contraceptive status - VITAMIN D 25 HYDROXY; Future Vitamin B 12 deficiency - VITAMIN B12/ FOLIC ACID; Future - cyanocobalamin injection 1,000 mcg Chronic midline posterior neck pain - methylPREDNISolone acetate (DEPO-Medrol) injection 120 mg documented in this encounter Plan of Treatment Upcoming Encounters Date Type Department Care Team (Late st Contact Info) Description 04/24/2024 10:45 AM EST Clinical Support [facility] [address] [place] [address] documented as of this encounter Goals Goal Patient Goal Type Associated Problems Recent Progress Patient-Stated? Author Maintain a healthy diet, exercise regularly and maintain an ideal body weight General No Thea Rubio MD Stay Tobacco Free Lifestyle No Thea Rubio MD documented as of this encounter Procedures Procedure Name Priority Date/Time Associated Diagnosis Comments VITAMIN B12/ FOLIC ACID Routine 08/26/2023 11:31 AM EDT Vitamin B 12 deficiency VITAMIN D 25 HYDROXY Routine 08/26/2023 11:31 AM EDT Depo-Provera contraceptive status documented in this encounter Results * (ABNORMAL) VITAMIN D 25 HYDROXY (08/26/2023 11:31 AM EDT) Vit D 25 OH 19.0(L) 30.0 - 150.0 ng/mL 08/26/2023 10:34 PM EDT [facility] Comment: Preferred: >= 30 ng/mL Insufficient: 21-29 ng/mL Deficient <= 20 ??ng/mL Possible Toxicity: >150 ng/mL Samples should not be taken from patients receiving therapy with high biotin doses (i.e. > 5 mg/day) until at least 8 hours following the last biotin administration. Blood VENOUS BLOOD / Unknown Venipuncture / Unknown 08/26/2023 11:31 AM EDT 08/26/2023 11:31 AM EDT us Mini Reeder MD CHEMISTRY ORDERABLES Final Res ult [facility] 1 [facility] , [address] [place] [id number] * VITAMIN B12/ FOLIC ACID (08/26/2023 11:31 AM EDT) Vitamin B12 364 232 - 1,245 pg/mL 08/26/2023 10:34 PM EDT [facility] Folate 8.09 >=4.80 ng/mL 08/26/2023 10:34 PM EDT [facility] Blood VENOUS BLOOD / Unknown Venipuncture / Unknown 08/26/2023 11:31 AM EDT 08/26/2023 11:31 AM EDT Narrative [facility] - 08/26/2023 10:34 PM EDT Ingestion of abimael doses of biotin (>5 mg/day) taken within 8 hours of drawing blood sample can interfere with this immunoassay test. 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 Other B-complex deficiencies Migraine without aura and without status migrainosus, not intractable Migraine without aura, without mention of intractable migraine without mention of status migrainosus S/P closure of congenital atrial septal defect by percutaneous transcatheter technique Postsurgical percutaneous transluminal coronary angioplasty status Depo-Provera contraceptive status Surveillance of other previously prescribed contraceptive method Vitamin B 12 deficiency Other B-complex deficiencies Chronic midline posterior neck pain Cervicalgia documented in this encounter Administered Medications Inactive Administered Medications - up to 1 most recent administrations Medication Order MAR Action Action Date Dose Rate Site cyanocobalamin injection 1,000 mcg 1,000 mcg, Intramuscular, ONCE, 1 dose, On Fri08/26/23 at 1115, Dx: 1. Vitamin B 12 deficiencyIndications: Vitamin B 12 deficiency Given 08/26/2023 11:31 AM EDT 1,000 mcg Right Arm methylPREDNISolone acetate (DEPO-Medrol) injection 120 mg 120 mg, Intramuscular, ONCE, 1 dose, On Fri08/26/23 at 1115, Dx: 1. Chronic midline posterior neck painIndications:Chroni c midline posterior neck pain Given 08/26/2023 11:31 AM EDT 120 mg Right Upper Outer Quadrant documented in this encounter Discontinued Medications Medication Sig Discontinue Reason Start Date End Da te medroxyPROGESTERone (DEPO-PROVERA) 150 mg/mL IM Syringe INJECT 1 SYRINGE INTRAMUSCULARLY ONCE FOR 1 DOSE DELETE-Therapy completed 01/08/2022 08/26/2023 documented as of this encounter Care Teams Human Relations Teacher Relationship Specialty Start Date End Date Mini Reeder MD [address] [place] [id number] PCP - General Family Medicine 08/26/23 Abdifatah Uriarte MD [address] [place] [address] [place] [address] Consulting Physician Obstetrics & Gynecology-Gynecologic Oncology 12/16/19 documented as of this encounter
--- OUTSIDE RECORDS SUMMARY | 2024-03-14 18:14 | XMS_ITS | Encounter Summary ---
Author Organization [facility] [place] [place] [address] Care Team Providers Care Computer Technology Instructor Name Role Phone Abdifatah Uriarte MD Unavailable [phone] Abdifatah Geiger MD Primary Care Provider [phone] Encounter Details Date Type Department Care Team (Latest Contact Info) Description 06/21/2023 Travel Social History Tobacco Use Types Packs/Day Years [...] on file documented as of this encounter Plan of Treatment Upcoming Encounters Date Type Department Care Team (Late st Contact Info) Description 04/24/2024 10:45 AM EST Clinical Support [facility] [address] [place] [address] documented as of this encounter Goals Goal Patient Goal Type Associated Problems Recent Progress Patient-Stated? Author Maintain a healthy diet, exercise regularly and maintain an ideal body weight General No Thea Rubio MD Stay Tobacco Free Lifestyle No Thea Rubio MD documented as of this encounter Visit Diagnoses Not on filedocumented in this encounter Additional Health Concerns Infection Onset Date Last Indicated Resolved Time R/O COVID-19 06/21/2023 06/21/2023 06/21/2023 10:2 0 AM EST Assessment Noted Time PHQ-9 Depression Total Score: 2 10/07/19 18 8:00 AM EDT PHQ-2 Depression Total Score: 2 10/07/19 8:00 AM EDT documented as of this encounter Care Teams Computer Technology Instructor Relationship Specialty Start Date End Date Abdifatah Geiger MD [address] [place] [phone] PCP - General Family Medicine 07/17/22 08/25/23 Abdifatah Uriarte MD [address] [place] [address] [place] [address] Consulting Physician Obstetrics & Gynecology-Gynecologic Oncology 12/16/19 documented as of this encounter
--- OUTSIDE RECORDS SUMMARY | 2024-03-14 18:14 | XMS_ITS | Encounter Summary ---
Author Organization [place] [address] Care Team Providers Care Fly Rail Operator Name Role Phone Abdifatah Uriarte MD Unavailable [phone] Abdifatah Geiger MD Primary Care Provider Reason for Visit * Reason Onset Date Comments Medication Refill 08/19/2023 Encounter Details Date Type Department Care Team (Late st Contact Info) Description 08/19/2023 Refill [facility] [address] [place] [phone] Misty Gillespie MD [address] [place] [address] Medication Refill Social History Tobacco Use Types Packs/Day Years [...] on file documented as of this encounter Ordered Prescriptions Prescription Sig Dispense Quantity Refills Last Filled Start Date End Date medroxyPROGESTERo ne (DEPO-PROVERA) 150 mg/mL IM SuspensionIndicat ions:Excessive and frequent menstruation INJECT ONE ML INTRAMUSCULARLY FOR 1 DOSE 1 mL 4 4 10/28/19 24 documented in this encounter Plan of Treatment Upcoming Encounters Date Type Department Care Team (Late st Contact Info) Description 04/24/2024 10:45 AM EST Clinical Support [facility] [address] [place] [address] documented as of this encounter Goals Goal Patient Goal Type Associated Problems Recent Progress Patient-Stated? Author Maintain a healthy diet, exercise regularly and maintain an ideal body weight General No Thea Rubio MD Stay Tobacco Free Lifestyle No Thea Rubio MD documented as of this encounter Visit Diagnoses Diagnosis Excessive and frequent menstruation Excessive or frequent menstruation documented in this encounter Discontinued Medications Medication Sig Discontinue Reason Start Date End Da te medroxyPROGESTERone (DEPO-PROVERA) 150 mg/mL IM SuspensionIndications :Excessive and frequent menstruation INJECT ONE ML INTRAMUSCULARLY FOR 1 DOSE Reorder 05/27/2023 08/19/2023 documented as of this encounter Additional Health Concerns Assessment Noted Time PHQ-9 Depression Total Score: 2 10/07/19 18 8:00 AM EDT PHQ-2 Depression Total Score: 2 10/07/19 18 8:00 AM EDT documented as of this encounter Care Teams Fly Rail Operator Relationship Specialty Start Date End Date Abdifatah Geiger MD [address] [place] [phone] PCP - General Family Medicine 07/17/22 08/25/23 Abdifatah Uriarte MD [address] [place] [phone] Consulting Physician Obstetrics & Gynecology-Gynecologic Oncology 8/27/20 documented as of this encounter
--- OUTSIDE RECORDS SUMMARY | 2024-03-14 18:14 | XMS_ITS | Encounter Summary ---
Author Organization [place] [address] Care Team Providers Care Netbackup Administrator Name Role Phone Abdifatah Uriarte MD Unavailable [phone] Mini Reeder MD Primary Care Provider [phone] Reason for Visit * Reason Comments Medication Refill Encounter Details Date Type Department Care Team (Late Contact Info) Description 02/09/2024 Refill [facility] [address] [place] [address] Migue Anne MD [address] [place] [address] Medication Refill Social History Tobacco Use Types [...] Eli Kilgore RMA documented in this encounter Ordered Prescriptions Prescription Sig Dispense Quantity Refills Last Filled Start Date End Date metoprolol succinate (TOPROL-XL) 25 mg Oral Tablet Sustained Release 24 hrIndications:Palpi tations Take 1 tablet by mouth once daily 90 Tablet 02/11/2024 documented in this encounter Miscellaneous Notes * Telephone Encounter - Swathi Washington CPhT - 02/11/2024 9:17 AM EDT Metoprolol 25mg - Patient has not had an office visit for any reason in >13 months (395 days). Lab tests needed, if any: NONE Defer to office. documented in this encounter Plan of Treatment Upcoming Encounters Date Type Department Care Team (Late st Contact Info) Description 04/24/2024 10:45 AM EST Clinical Support [facility] [address] [place] [address] documented as of this encounter Goals Goal Patient Goal Type Associated Problems Recent Progress Patient-Stated? Author Maintain a healthy diet, exercise regularly and maintain an ideal body weight General No Thea Rubio MD Stay Tobacco Free Lifestyle No Thea Rubio MD documented as of this encounter Visit Diagnoses Diagnosis Palpitations documented in this encounter Discontinued Medications Medication Sig Discontinue Reason Start Date End Da te metoprolol succinate (TOPROL-XL) 25 mg Oral Tablet Sustained Release 24 hrIndications:Palpitatio ns Take 1 tablet by mouth once daily 08/04/2023 02/11/2024 documented as of this encounter Care Teams Netbackup Administrator Relationship Specialty Start Date End Date Mini Reeder MD [address] [place] [address] PCP - General Family Medicine 08/26/23 Abdifatah Uriarte MD [address] [place] [address] [place] [address] Consulting Physician Obstetrics & Gynecology-Gynecologic Oncology 12/16/19 documented as of this encounter
--- OUTSIDE RECORDS SUMMARY | 2024-03-14 18:14 | XMS_ITS | Encounter Summary ---
Author Organization [place] [address] Care Team Providers Care Learning Specialist Name Role Phone Abdifatah Uriarte MD Unavailable [phone] Abdifatah Geiger MD Primary Care Provider [phone] Reason for Visit * Reason Comments Medication Refill Encounter Details Date Type Department Care Team (Late st Contact Info) Description 08/02/2023 Refill [facility] [address] [place] [address] Migue Anne MD [address] [place] [address] Medication Refill Social History Tobacco Use Types [...] 25 mg Oral Tablet Sustained Release 24 hrIndications:Palp itations Take 1 tablet by mouth once daily 90 Tablet 1 08/04/2023 02/11/2024 documented in this encounter Miscellaneous Notes * Telephone Encounter - Irma Gordon CPhT - 08/04/2023 6:42 AM EDT Metoprolol 25 Medication Refill Protocol passed. [facility] Action: Approved 90 day supply with sufficient refills to noted follow-up date by provider or protocol if no follow-up date noted, not to exceed 90 days past that date. documented in this encounter Plan of Treatment Upcoming Encounters Date Type Department Care Team (Late st Contact Info) Description 04/24/2024 10:45 AM EST Clinical Support [facility] [address] [place] [address] documented as of this encounter [...] Take 1 tablet by mouth once daily 02/05/2023 08/04/2023 documented as of this encounter Additional Health Concerns Assessment Noted Time PHQ-9 Depression Total Score: 2 10/07/19 8:00 AM EDT PHQ-2 Depression Total Score: 2 10/07/19 8:00 AM EDT documented as of this encounter Care Teams Learning Specialist Relationship Specialty Start Date End Date Abdifatah [place] [address] PCP - General Family Medicine 07/17/22 08/25/23 Abdifatah Uriarte MD [address] [facility] [place] [phone] Consulting Physician Obstetrics & Gynecology-Gynecologic Oncology 12/16/19 documented as of this encounter
--- OUTSIDE RECORDS SUMMARY | 2024-03-14 18:14 | XMS_ITS | Encounter Summary ---
Author Organization [place] [address] Care Team Providers Care Crt Name Role Phone Abdifatah Uriarte MD Unavailable [phone] Mini Reeder MD Primary Care Provider [phone] Reason for Visit * Reason Comments Vitamin B12 Deficiency Encounter Details Date Type Department Care Team (Latest Contact Info) Description 11/12/2023 11:00 AM EDT Clinical Support [facility] [address] [place] [address] Viri Gore MA Cyanocobalamin deficiency (Primary Dx) Social History Tobacco Use Types Packs/Day Years [...] 08/26/2023 10:23 AM EDEli Donnelly RMA * Is the person blind or [...] Entry Date Author No 08/26/2023 10:23 AM Eli Nguyen RMA documented in this encounter Plan of Treatment Upcoming Encounters Date Type Department Care Team (Late st Contact Info) Description 04/24/2024 10:45 AM EST Clinical Support [facility] [address] [place] [phone] documented as of this encounter Goals Goal Patient Goal Type Associated Problems Recent Progress Patient-Stated? Author Maintain a healthy diet, exercise regularly and maintain an ideal body weight General No Thea Rubio MD Stay Tobacco Free Lifestyle No Thea Rubio MD documented as of this encounter Visit Diagnoses Diagnosis Cyanocobalamin deficiency- Primary Other B-complex deficiencies documented in this encounter Administered Medications Inactive Administered Medications - up to 1 most recent administrations Medication Order MAR Action Action Date Dose Rate Site cyanocobalamin injection 1,000 mcg 1,000 mcg, Intramuscular, ONCE, 1 dose, On Fri11/12/23 at 1115, Dx: 1. Cyanocobalamin deficiencyIndications:Cyano cobalamin deficiency Given 11/12/2023 11:11 AM EDT 1,000 mcg Right Deltoid documented in this encounter Care Teams Crt Relationship Specialty Start Date End Date Mini Reeder MD [address] [place], [place] [phone] PCP - General Family Medicine 08/26/23 Abdifatah Uriarte MD [address] [place] [address] [place] [address] Consulting Physician Obstetrics & Gynecology-Gynecologic Oncology 12/16/19 documented as of this encounter
--- OUTSIDE RECORDS SUMMARY | 2024-03-14 18:14 | XMS_ITS | Encounter Summary ---
Author Organization [place] [address] Care Team Providers Care Recenterer Name Role Phone Abdifatah Uriarte MD Unavailable Mini Reeder MD Primary Care Provider [phone] Encounter Details Date Type Department Care Team (Late st Contact Info) Description 03/02/2024 Orders Only [facility] [address] [place] [phone] Mini Reeder MD [address] [place] [address] Social History Tobacco Use Types Packs/Day Years [...] Eli Nguyen RMA documented in this encounter Ordered Prescriptions Prescription Sig Dispense Quantity Refills Last Filled Start Date End Date amoxicillin (AMOXIL) 875 mg Oral Tablet Take 1 Tablet by mouth 2 times daily for 10 days. 20 Tablet 03/02/2024 03/12/2024 documented in this encounter Plan of Treatment Upcoming Encounters Date Type Department Care Team (Late st Contact Info) Description 04/24/2024 10:45 AM EST Clinical Support [facility] [address] [place] [address] documented as of this encounter Goals Goal Patient Goal Type Associated Problems Recent Progress Patient-Stated? Author Maintain a healthy diet, exercise regularly and maintain an ideal body weight General No Thea Rubio MD Stay Tobacco Free Lifestyle No Thea Rubio MD documented as of this encounter Visit Diagnoses Not on filedocumented in this encounter Care Teams Recenterer Relationship Specialty Start Date End Date Mini Reeder MD [address] [place] [phone] PCP - General Family Medicine 08/26/23 Abdifatah Uriarte MD [address] [place] [address] [place] [address] Consulting Physician Obstetrics & Gynecology-Gynecologic Oncology 12/16/19 documented as of this encounter
--- OUTSIDE RECORDS SUMMARY | 2024-03-14 18:14 | XMS_ITS | Encounter Summary ---
Author Organization [place] [address] Care Team Providers Care Director Marketing Name Role Phone Abdifatah Uriarte MD Unavailable [phone] Mini Reeder MD Primary Care Provider [phone] Encounter Details Date Type Department Care Team (Late st Contact Info) Description 08/27/2023 Orders Only SEP [facility] 100 [place] [phone] Mini Reeder MD 100 [place] [address] Vitamin D deficiency (Primary Dx) Social History Tobacco Use [...] Refills Last Filled Start Date End Date ergocalciferol (VITAMIN D) 1,250 mcg (50,000 unit) Oral Capsule Take 1 Capsule by mouth once a week. 12 Capsule 2 08/27/2023 documented in this encounter Plan of Treatment Upcoming Encounters Date Type Department Care Team (Late st Contact Info) Description 04/24/2024 10:45 AM EST Clinical Support [facility] [address] [place] [address] documented as of this encounter Goals Goal Patient Goal Type Associated Problems Recent Progress Patient-Stated? Author Maintain a healthy diet, exercise regularly and maintain an ideal body weight General No Thea Rubio MD Stay Tobacco Free Lifestyle No Thea Rubio MD documented as of this encounter Visit Diagnoses Diagnosis Vitamin D deficiency- Primary Unspecified vitamin D deficiency documented in this encounter Care Teams Director Marketing Relationship Specialty Start Date End Date Mini Reeder MD [address] [place] [phone] PCP - General Family Medicine 08/26/23 Abdifatah Uriarte MD [address] [place] [address] [place] [address] Consulting Physician Obstetrics & Gynecology-Gynecologic Oncology 12/16/19 documented as of this encounter
--- OUTSIDE RECORDS SUMMARY | 2024-03-14 18:14 | XMS_ITS | Encounter Summary ---
Author Organization [place] [address] Care Team Providers Care Museum Or Zoo Director Name Role Phone Abdifatah Uriarte MD Unavailable [phone] Mini Reeder MD Primary Care Provider [phone] Reason for Visit * Reason Comments Injections Encounter Details Date Type Department Care Team (Latest Contact Info) Description 11/12/2023 9:00 AM EDT Clinical Support [facility] [address] [place] [phone] La Flynn MA Excessive and frequent menstruation (Primary Dx) Social History Tobacco Use Types [...] Donnelly RMA * Does this person have difficulty [...] Description 04/24/2024 10:45 AM EST Clinical Support [facility] 100 [place] [address] documented as of this encounter Goals Goal Patient Goal Type Associated Problems Recent Progress Patient-Stated? Author Maintain a healthy diet, exercise regularly and maintain an ideal body weight General No Thea Rubio MD Stay Tobacco Free Lifestyle No Thea Rubio MD documented as of this encounter Visit Diagnoses Diagnosis Excessive and frequent menstruation- Primary Excessive or frequent menstruation documented in this encounter Administered Medications Inactive Administered Medications - up to 1 most recent administrations Medication Order MAR Action Action Date Dose Rate Site medroxyPROGESTERone (DEPO-PROVERA) injection 150 mg 150 mg, Intramuscular, ONCE, 1 dose, On Fri11/12/23 at 0830, Dx: 1. Excessive and frequent menstruationIndications:Exce ssive and frequent menstruation Given 11/12/2023 8:18 AM EDT 150 mg Left Deltoid documented in this encounter Care Teams Museum Or Zoo Director Relationship Specialty Start Date End Date Mini Reeder MD [address] [place], [place] [phone] PCP - General Family Medicine 08/26/23 Abdifatah Uriarte MD [address] [place] [address] [place] [address] Consulting Physician Obstetrics & Gynecology-Gynecologic Oncology 12/16/19 documented as of this encounter
--- OUTSIDE RECORDS SUMMARY | 2024-03-14 18:14 | XMS_ITS | Encounter Summary ---
Author Organization [place] [address] Care Team Providers Care Bracelet Maker Novelty Name Role Phone Abdifatah Uriarte MD Unavailable [phone] Mini Reeder MD Primary Care Provider Reason for Visit * Reason Comments Weight Gain Encounter Details Date Type Department Care Team (Late Contact Info) Description 12/06/2023 9:30 AM EDT Office Visit [facility] 100 [place] [phone] Horacio Brown MD 100 [place] [address] Vitamin B 12 deficiency (Primary Dx); Chronic fatigue; Hot flashes Social History Tobacco Use Types Packs/Day Years [...] Sign Reading Time Taken Comments Blood Pressure 116/72 12/06/2023 9:46 AM EDT Pulse - - Temperature 36.6 ??C (97.8 ??F) 12/06/2023 9:46 AM ED T Respiratory Rate - - Oxygen Saturation - - Inhaled Oxygen Concentration - - Weight 71.2 kg (157 lb) 12/06/2023 9:46 AM EDT Height 164.5 cm (5' 4.75 ) 12/06/2023 9:46 AM ED T Body Mass Index 26.33 12/06/2023 9:46 AM EDT documented in this encounter Functional [...] of Assessment Author No 08/26/2023 10:23 AM lEi Nguyen RMA * Does this person have [...] Eli Nguyen RMA documented in this encounter Progress Notes * Horacio Brown MD - 12/06/2023 9:30 AM EDT Vitals: 12/06/23 0946 BP: 116/72 Temp: 97.8 ??F (36.6 ??C) Weight: 157 lb (71.2 kg) Height: 5' 4.75 (1.645 m) Body mass index is 26.33 kg/m??. SUBJECTIVE: Chief Complaint Patient presents with Weight Gain Pt c/o weight gain, would like to discuss weight loss options. Pt has tried dieting and exercising with no success. Review of Systems Constitutional: Negative for fever. Eyes: Negative for visual disturbance. Respiratory: Negative for cough and shortness of breath. Cardiovascular: Negative for chest pain, palpitations and leg swelling. Gastrointestinal: Negative for abdominal pain, constipation and diarrhea. Genitourinary: Negative for difficulty urinating. Musculoskeletal: Negative for joint swelling. Skin: Negative for rash. Neurological: Negative for dizziness, light-headedness and headaches. OBJECTIVE: Physical Exam Vitals reviewed. Constitutional: General: She is not in acute distress. Appearance: Normal appearance. She is well-developed. She is not ill-appearing. HENT: Head: Normocephalic and atraumatic. Right Ear: Tympanic membrane normal. Tympanic membrane is not erythematous or bulging. Left Ear: Tympanic membrane normal. Tympanic membrane is not erythematous or bulging. Eyes: General: Right eye: No discharge. Left eye: No discharge. Conjunctiva/sclera: Conjunctivae normal. Cardiovascular: Rate and Rhythm: Normal rate and regular rhythm. Heart sounds: Normal heart sounds. No murmur heard. No friction rub. No gallop. Pulmonary: Effort: Pulmonary effort is normal. No respiratory distress. Breath sounds: Normal breath sounds. No wheezing or rales. Abdominal: General: Bowel sounds are normal. Palpations: Abdomen is soft. Musculoskeletal: General: Normal range of motion. Skin: General: Skin is warm. Findings: No rash. Neurological: Mental Status: She is alert. Psychiatric: Mood and Affect: Mood normal. Thought Content: Thought content normal. Assessment Diagnoses and all orders for this visit: Vitamin B 12 deficiency - cyanocobalamin injection 1,000 mcg - VITAMIN B12/ FOLIC ACID; Future Chronic fatigue - TSH REFLEX; Future Hot flashes - LH/FSH; Future No improvement in fatigue with B12 injections, will recheck lab. Poor sleep likely contributing to fatigue. documented in this encounter Miscellaneous Notes * Addendum Note - Kathleen Ball - 12/06/2023 9:30 AM EDTAddended by: KATHLEEN BALL on: 12/07/2023 01:10 PM Modules accepted: Orders documented in this encounter Plan of Treatment Upcoming Encounters Date Type Department Care Team (Late st Contact Info) Description 04/24/2024 10:45 AM EST Clinical Support [facility] [address] [place] [address] documented as of this encounter Goals Goal Patient Goal Type Associated Problems Recent Progress Patient-Stated? Author Maintain a healthy diet, exercise regularly and maintain an ideal body weight General No Thea Ruibo MD Stay Tobacco Free Lifestyle No Thea Rubio MD documented as of this encounter Procedures Procedure Name Priority Date/Time Associated Diagnosis Comments MISCELLANEOUS LAB Routine 12/06/2023 10: 33 AM EDT Vitamin B 12 deficiency Chronic fatigue Hot flashes VITAMIN B12/ FOLIC ACID Routine 12/06/2023 10:33 AM EDT Vitamin B 12 deficiency TSH REFLEX Routine 12/06/2023 10:33 AM EDT Chronic fatigue documented in this encounter Results * MISCELLANEOUS LAB (12/06/2023 10:33 AM EDT) [facility] COMMENT See Scanned Image 12/09/2023 7:48 AM EDT [facility] Blood VENOUS BLOOD / Unknown Venipuncture / Unknown 12/06/2023 10:33 AM EDT 12/07/2023 1:10 PM EDT us Horacio Brown MD HEMATOLOGY ORDERABLES F inal Result Performing Organization Address [facility] [place]/ZIP Co de Phone Number EXTERNAL LAB See Scanned Report [facility] [address] [place] [phone] * TSH REFLEX (12/06/2023 10:33 AM EDT) TSH Reflex 1.260 0.270 - 4.200 mcIU/mL 12/06/2023 3:12 PM EDT [facility]REFERR[facility] Blood VENOUS BLOOD / Unknown Venipuncture / Unknown 12/06/2023 10:33 AM EDT 12/06/2023 10:33 AM EDT Narrative [facility] - 12/06/2023 3:12 PM EDT Ingestion of abimael doses of biotin (>5 mg/day) taken within 8 hours of drawing blood sample can interfere with this immunoassay test. Horacio Brown MD CHEMISTRY ORDERABLES Fi nal Result Performing Organization Address [facility] de Phone Number [facility] [address] [place] [address] , [place] [address] * VITAMIN B12/ FOLIC ACID (12/06/2023 10:33 AM EDT) Pathologist [facility] Vitamin B12 473 232 - 1,245 pg/mL 12/06/2023 3:58 PM EDT [facility]REFERRED [facility] Folate 11.10 >=4.80 ng/mL 12/06/2023 3:58 PM EDT [facility] Blood VENOUS BLOOD / Unknown Venipuncture / Unknown 12/06/2023 10:33 AM EDT 12/06/2023 10:33 AM EDT Narrative [facility] - 12/06/2023 3:58 PM EDT Ingestion of abimael doses of biotin (>5 mg/day) taken within 8 hours of drawing blood sample can interfere with this immunoassay test. Horacio Brown MD CHEMISTRY ORDERABLES Fi nal Result Performing Organization Address [facility] [place] Co de Phone Number [facility] [address] [place] [address] , [place] [address] documented in this encounter Visit Diagnoses Diagnosis Vitamin B 12 deficiency- Primary Other B-complex deficiencies Chronic fatigue Other malaise and fatigue Hot flashes Symptomatic menopausal or female climacteric states documented in this encounter Administered Medications Inactive Administered Medications - up to 1 most recent administrations Medication Order MAR Action Action Date Dose Rate Site cyanocobalamin injection 1,000 mcg 1,000 mcg, Intramuscular, ONCE, 1 dose, On 12/06/23 at 1015, Dx: 1. Vitamin B 12 deficiencyIndications:Vit irizarry B 12 deficiency Given 12/06/2023 10:34 AM EDT 1,000 mcg Left Deltoid documented in this encounter Orders Lab Orders Without Results Count Last Ordered D ate First Ordered Date LH/FSH 1 12/06/2023 documented in this encounter Care Teams Bracelet Maker Novelty Relationship Specialty Start Date End Date Mini Reeder MD [address] [place] [phone] PCP - General Family Medicine 08/26/23 Abdifatah Uriarte MD 1 [facility] [place] [address] Consulting Physician Obstetrics & Gynecology-Gynecologic Oncology 12/16/19 documented as of this encounter
--- OUTSIDE RECORDS SUMMARY | 2024-03-14 18:14 | XMS_ITS | Encounter Summary ---
Author Organization [place] [address] Care Team Providers Care Nipple Machine Operator Name Role Phone Abdifatah Uriarte MD Unavailable [phone] Mini Reeder MD Primary Care Provider [phone] Reason for Visit * Reason Comments Flank Pain Burning when she uri nates along with some blood when she wipes Other Questions about the depo shot Encounter Details Date Type Department Care Team (Late st Contact Info) Description 02/27/2024 2:45 PM EST Office Visit [facility] 100 [place] [phone] Mini Reeder MD [address] [place] [address] Dysuria (Primary Dx); Hematuria, unspecified type Social History Tobacco Use Types Packs/Day Years [...] Pressure 126/74 02/27/2024 2:55 PM EST Pulse - - Temperature 36.8 ??C (98.2 ??F) 02/27/2024 2:55 PM ES T Respiratory Rate - - Oxygen Saturation - - Inhaled Oxygen Concentration - - Weight 74.4 kg (164 lb) 02/27/2024 2:55 PM EST Height 162.6 cm (5' 4 ) 02/27/2024 2:55 PM EST Body Mass Index 28.15 02/27/2024 2:55 PM EST documented in this encounter Functional Status * [...] Progress Notes * Mini Reeder MD - 02/27/2024 2:45 PM EST Vitals: 02/27/24 1455 BP: 126/74 Temp: 98.2 ??F (36.8 ??C) Weight: 164 lb (74.4 kg) Height: 5' 4 (1.626 m) Body mass index is 28.15 kg/m??. SUBJECTIVE: Chief Complaint Patient presents with Flank Pain Burning when she urinates along with some blood when she wipes Other Questions about the depo shot HPI: Flank Pain This is a new problem. The current episode started in the past 7 days. The problem occurs intermittently. The problem has been unchanged. Associated symptoms include flank pain and urgency. Other This is a new problem. The current episode started today. The problem occurs constantly. The problem has been unchanged. Pertinent negatives include no coughing, fatigue or fever. Review of Systems Constitutional: Negative for fatigue and fever. HENT: Negative. Respiratory: Negative for cough and wheezing. Cardiovascular: Negative. Gastrointestinal: Negative. Genitourinary: Positive for dysuria, flank pain and urgency. Skin: Negative. Neurological: Negative. Hematological: Negative. Psychiatric/Behavioral: Negative. OBJECTIVE: Physical Exam Vitals and nursing note reviewed. HENT: Head: Normocephalic. Cardiovascular: Rate and Rhythm: Normal rate. Heart sounds: No murmur heard. Pulmonary: Effort: Pulmonary effort is normal. Breath sounds: No wheezing. Abdominal: Palpations: Abdomen is soft. Tenderness: There is no abdominal tenderness. Neurological: General: No focal deficit present. Mental Status: She is alert. Psychiatric: Mood and Affect: Mood normal. Assessment Assessment & Plan Dysuria Orders: PERFORM DIPSTICK URINALYSIS Hematuria, unspecified type Orders: URINE CULTURE (NO STAIN) documented in this encounter Plan of Treatment Upcoming Encounters Date Type Department Care Team (Late st Contact Info) Description 04/24/2024 10:45 AM EST Clinical Support [facility] 100 [place] [address] documented as of this encounter Goals Goal [...] 57 PM EST Dysuria Hematuria, unspecified type documented in this encounter Results * (ABNORMAL) URINE CULTURE (NO STAIN) (02/27/2024 4:05 PM EST) Pathologist [facility] Culture Positive Growth(A) 03/02/2024 11:20 AM EST PREFERRED LAB [facility] Culture 20,000 CFU/mL Streptococcus agalactiae (Group B) SUSCEPTIB ILITY RESULT 03/02/2024 11:20 AM EST [facility] Comment: isolated in addition to multiple bacterial species consistent with urogenital commensal organisms. No further workup. Urine URINE SPECIMEN COLLECTION, CLEAN CATCH / Unknown 02/27/2024 4:05 PM EST 02/27/2024 4:05 PM EST us Mini Reeder MD MICROBIOLOGY - GENERAL ORDERAB LES Final Result [facility]REFERRED [facility] [address] [facility], [place] [address] * (ABNORMAL) SEP URINALYSIS POC (02/27/2024 3:57 [...] 1.035 no units 02/27/2024 4:00 PM EST [facility] UA Blood POC Trace-Intact (A) Negative 02/27/2024 4:00 PM EST [facility] [place] UA pH POC 7.0 5.0 - 8.0 pH 02/27/2024 4:00 PM EST [facility] [place] UA Protein POC Negative Negative mg/dL 02/27/2024 4:00 PM EST [facility] [place] [facility] Urobilinogen POC 1.0 0.2, 1.0 02/27/2024 4:00 PM EST [facility] [place] [facility] Nitrite POC Negative Negative 02/27/2024 4:00 PM EST [facility] [place] [facility] Leuk Est POC Small(A) Negative 4:00 PM EST [facility] Urine URINE SPECIMEN COLLECTION / Unknown 02/27/2024 3:57 PM EST 02/27/2024 4:00 PM EST us Mini Reeder MD POINT OF CARE TEST ORDERABLES Final Result Performing Organization Address City/State/[facility] Co de Phone Number [address] [address] documented in this encounter Visit Diagnoses Diagnosis Dysuria- Primary Hematuria, unspecified type documented in this encounter Orders Nursing Count Last Ordered Date First Orde red Date PERFORM DIPSTICK URINALYSIS 1 02/27/2024 documented in this encounter Care Teams Nipple Machine Operator Relationship Specialty Start Date End Date Mini Reeder MD [address] [place] [address] PCP - General Family Medicine 08/26/23 Abdifatah Uriarte MD [address] [place] [address] [place] [phone] Consulting Physician Obstetrics & Gynecology-Gynecologic Oncology 12/16/19 documented as of this encounter
--- OUTSIDE RECORDS SUMMARY | 2024-03-14 18:14 | XMS_ITS | Encounter Summary ---
Author Organization [place] [address] Care Team Providers Care Drivability Technician Name Role Phone Abdifatah Uriarte MD Unavailable [phone] Mini Reeder MD Primary Care Provider [phone] Reason for Visit * Reason Onset Date Comments Appointment Needed 08/29/2023 Encounter Details Date Type Department Care Team (Late Contact Info) Description 08/29/2023 Telephone [facility] [address] [place] [phone] Mini Reeder MD [address] [place] [address] Appointment Needed Social History Tobacco Use Types Packs/Day Years [...] Eli Kilgore RMA documented in this encounter Miscellaneous Notes * Telephone Encounter - Rehana Mccauley - 08/29/2023 10:00 AM EDT Called back and created appt as requested. * Telephone Encounter - Rehana Harmon - 08/29/2023 9:54 AM EDT Select the most appropriate reason for this telephone message: Appointment Needed Appointment Requested By: Patient Provider Preference: Other nurse Type of Appt Needed: Nurse Visit Detailed Reason for Appt: b12 shot Requested Timeframe: Other 09/26/23 Reason Scheduling Assistance is Needed: Call Center not permitted to schedule Additional Notes: documented in this encounter Plan of Treatment Upcoming Encounters Date Type Department Care Team (Late st Contact Info) Description 04/24/2024 10:45 AM EST Clinical Support [facility] [address] [place] [address] documented as of this encounter Goals Goal Patient Goal Type Associated Problems Recent Progress Patient-Stated? Author Maintain a healthy diet, exercise regularly and maintain an ideal body weight General No Thea Rubio MD Stay Tobacco Free Lifestyle No Thea Rubio MD documented as of this encounter Visit Diagnoses Not on filedocumented in this encounter Care Teams Drivability Technician Relationship Specialty Start Date End Date Mini Reeder MD [address] [place] [address] PCP - General Family Medicine 08/26/23 Abdifatah Uriarte MD [address] [place] [address] [place] [phone] Consulting Physician Obstetrics & Gynecology-Gynecologic Oncology 12/16/19 documented as of this encounter
--- OUTSIDE RECORDS SUMMARY | 2024-03-14 18:14 | XMS_ITS | Encounter Summary ---
Author Organization [facility] [place] [address] Care Team Providers Care Upholstery Department Supervisor Name Role Phone Abdifatah Uriarte MD Unavailable [phone] Abdifatah Geiger MD Primary Care Provider [phone] Encounter Details Date Type Department Care Team (Latest Contact Info) Description 08/21/2023 Travel Social History Tobacco Use Types Packs/Day [...] 04/24/2024 10:45 AM EST Clinical Support [facility] 100 [place] [address] documented as of this encounter Goals Goal [...] documented as of this encounter Care Teams Upholstery Department Supervisor Relationship Specialty Start Date End Date Abdifatah Geiger MD [address] [place] [address] PCP - General Family Medicine 07/17/22 08/25/23 Abdifatah Uriarte MD [address] [place] [address] [place] [address] Consulting Physician Obstetrics & Gynecology-Gynecologic Oncology 12/16/19 documented as of this encounter
--- OUTSIDE RECORDS SUMMARY | 2024-03-14 18:14 | XMS_ITS | Encounter Summary ---
Author Organization [place] [address] Care Team Providers Care Plaster Machine Operator Name Role Phone Abdifatah Uriarte MD Unavailable [phone] Mini Reeder MD Primary Care Provider [phone] Encounter Details Date Type Department Care Team (Late st Contact Info) Description 02/27/2024 Orders Only [facility] [address] [place] [phone] Mini Reeder MD [address] [place] [address] Hematuria, unspecified type (Primary Dx) Social History Tobacco Use Types [...] Description 04/24/2024 10:45 AM EST Clinical Support [facility] [address] [place] [address] documented as of this encounter Goals Goal Patient Goal Type Associated Problems Recent Progress Patient-Stated? Author Maintain a healthy diet, exercise regularly and maintain an ideal body weight General No Thea Rubio MD Stay Tobacco Free Lifestyle No Thea Rubio MD documented as of this encounter Results * (ABNORMAL) URINE CULTURE (NO STAIN) (02/27/2024 4:05 PM EST) Culture Positive Growth(A) 03/02/2024 11:20 AM EST PREFERRED LAB [facility] Culture 20,000 CFU/mL Streptococcus agalactiae (Group B) SUSCEPTIB ILITY RESULT 03/02/2024 11:20 AM EST PREFERRED [facility] Comment: isolated in addition to multiple bacterial species consistent with urogenital commensal organisms. No further workup. Urine URINE SPECIMEN COLLECTION, CLEAN CATCH / Unknown 02/27/2024 4:05 PM EST 02/27/2024 4:05 PM EST us Mini Reeder MD MICROBIOLOGY - GENERAL ORDERAB LES Final Result PREFERRED [facility] 1 [facility] , [place] [address] documented in this encounter Visit Diagnoses Diagnosis Hematuria, unspecified type- Primary documented in this encounter Care Teams Plaster Machine Operator Relationship Specialty Start Date End Date Mini Reeder MD [address] [place], [place] [id number] PCP - General Family Medicine 08/26/23 Abdifatah Uriarte MD 1 [facility] [place] [address] Consulting Physician Obstetrics & Gynecology-Gynecologic Oncology 12/16/19 documented as of this encounter
--- OUTSIDE RECORDS SUMMARY | 2024-03-14 18:14 | XMS_ITS | Encounter Summary ---
Author Organization [place] [address] Care Team Providers Care Janitorial Manager Name Role Phone Abdifatah Uriarte MD Unavailable [phone] Mini Reeder MD Primary Care Provider Reason for Visit * Reason Onset Date Comments Results 02/09/2024 Encounter Details Date Type Department Care Team (Late Contact Info) Description 02/09/2024 Telephone [facility] [address] [place] [phone] Bud Jones, DIRECTOR STATISTICAL PROGRAMMING [address] [place], [place] [phone] Results Social History Tobacco Use Types Packs/Day Years [...] Miscellaneous Notes * Telephone Encounter - Rehana Smith - 02/09/2024 9:50 AM EDT Pt returning phone call. Normal result given. * Telephone Encounter - Gerri Eduardo MA - 02/09/2024 8:58 AM EDT Results: Laboratory Result - resulted on 02/09/2024. Results normal. Patient needs follow up appointment in 0 days without . Additional advice or instructions for patient: (copy and paste provider documentation from the result here) Orders placed: No Meds pended: No documented in this encounter Plan of Treatment Upcoming Encounters Date Type Department Care Team (Late st Contact Info) Description 04/24/2024 10:45 AM EST Clinical Support [facility] [address] [place] [address] documented as of this encounter Goals Goal Patient Goal Type Associated Problems Recent Progress Patient-Stated? Author Maintain a healthy diet, exercise regularly and maintain an ideal body weight General No Thea Rubio MD Stay Tobacco Free Lifestyle No Thea Rubio MD documented as of this encounter Visit Diagnoses Not on filedocumented in this encounter Care Teams Janitorial Manager Relationship Specialty Start Date End Date Mini Reeder MD [address] [place] [address] PCP - General Family Medicine 08/26/23 Abdifatah Uriarte MD [address] [place] [address] [place] [address] Consulting Physician Obstetrics & Gynecology-Gynecologic Oncology 12/16/19 documented as of this encounter
--- OUTSIDE RECORDS SUMMARY | 2024-03-14 18:14 | XMS_ITS | Encounter Summary ---
Author Organization [place] [address] Care Team Providers Care Live Out Nanny Name Role Phone Abdifatah Uriarte MD Unavailable [phone] Mini Reeder MD Primary Care Provider [phone] Reason for Visit * Reason Onset Date Comments Medication Refill 10/28/2023 Encounter Details Date Type Department Care Team (Late st Contact Info) Description 10/28/2023 Refill [facility] [address] [place] [phone] Misty Gillespie MD [address] [place] [address] Medication Refill Social History Tobacco Use Types [...] FOR 1 DOSE 1 mL 4 4 documented in this encounter Plan of Treatment Upcoming Encounters Date Type Department Care Team (Late st Contact Info) Description 04/24/2024 10:45 AM EST Clinical Support [facility] 100 [place] [address] [phone] documented as of this encounter Goals Goal [...] ONE ML INTRAMUSCULARLY FOR 1 DOSE Reorder 08/19/2023 10/28/2023 documented as of this encounter Care Teams Live Out Nanny Relationship Specialty Start Date End Date Mini Reeder MD [address] [place] [address] PCP - General Family Medicine 08/26/23 Abdifatah Uriarte MD [address] [place] [address] [place] [address] Consulting Physician Obstetrics & Gynecology-Gynecologic Oncology 12/16/19 documented as of this encounter
--- OUTSIDE RECORDS SUMMARY | 2024-03-14 18:14 | XMS_ITS | Encounter Summary ---
Author Organization [place] [address] Care Team Providers Care Teletype Adjuster Name Role Phone Abdifatah Uriarte MD Unavailable [phone] Mini Reeder MD Primary Care Provider [phone] Reason for Visit * Reason Onset Date Comments Appointment Needed 02/02/2024 Dep shot Encounter Details Date Type Department Care Team (Late Contact Info) Description 02/02/2024 Telephone [facility] [address] [place] [phone] Mini Reeder MD [address] [place] [address] Appointment Needed (Dep shot ) Social History Tobacco Use Types [...] * Telephone Encounter - Rehana Smith - 02/02/2024 10:59 AM EDT Scheduled. * Telephone Encounter - Shea Stephen - 02/02/2024 10:48 AM EDT Select the most appropriate reason for this telephone message: Appointment Needed Appointment Requested By: Patient Provider Preference: Other nurse Type of Appt Needed: Nurse Visit Detailed Reason for Appt: Depo shot Requested Timeframe: Other can she get here instead of Dr Gillespie office hard to get into Dr Dobson office Would like to get on Saturdays at [place] if possible Reason Scheduling Assistance is Needed: Call Center not permitted to schedule Additional Information: N/A documented in this encounter Plan of Treatment Upcoming Encounters Date Type Department Care Team (Late st Contact Info) Description 04/24/2024 10:45 AM EST Clinical Support [facility] [address] [place] [phone] documented as of this encounter Goals Goal Patient Goal Type Associated Problems Recent Progress Patient-Stated? Author Maintain a healthy diet, exercise regularly and maintain an ideal body weight General No Thea Rubio MD Stay Tobacco Free Lifestyle No Thea Rubio MD documented as of this encounter Visit Diagnoses Not on filedocumented in this encounter Care Teams Teletype Adjuster Relationship Specialty Start Date End Date Mini Reeder MD 100 [place] [address] PCP - General Family Medicine 08/26/23 Abdifatah Uriarte MD [address] [place] [address] [place] [address] Consulting Physician Obstetrics & Gynecology-Gynecologic Oncology 12/16/19 documented as of this encounter
--- OUTSIDE RECORDS SUMMARY | 2024-03-14 18:14 | XMS_ITS | Encounter Summary ---
Author Organization [place] [address] Care Team Providers Care Public Health Technologist Name Role Phone Abdifatah Uriarte MD Unavailable Mini Reeder MD Primary Care Provider [phone] Reason for Referral * Mammography (Routine) - Pending Review Specialty Diagnoses / Procedures Referred By Amalia tuttle Referred To Contact Radiology Diagnoses Encounter for screening mammogram for malignant neoplasm of breast Procedures MM MAMMO DIGITAL MADELEINE SCREEN Misty Mary MD [address] [place] [address] Phone: tel: fax: Referral ID Status Reason Start Date Expiration Date V isits Requested Visits Authorized [id number] Pending Review 06/17/2023 06/16/2025 1 1 Reason for Visit * Mammography (Routine) - Pending Review Specialty Diagnoses / Procedures Referred By Amalia tuttle Referred To Contact Radiology Diagnoses Encounter for screening mammogram for malignant neoplasm of breast Procedures MM MAMMO DIGITAL MADELEINE SCREEN Misty Mary MD [address] [place] [address] Phone: tel: fax: Referral ID Status Reason Start Date Expiration Date V isits Requested Visits Authorized [id number] Pending Review 06/17/2023 06/16/2025 1 1 Encounter Details Date Type Department Care Team (Late st Contact Info) Description 08/26/2023 7:05 AM EDT - 08/26/2023 11:59 PM EDT Hospital Encounter [facility] [address] [place] [address] Misty Gillespie MD [address] [place] [address] Encounter for screening mammogram for malignant neoplasm of breast Discharge Disposition: Home or Self Care Social History Tobacco Use Types Packs/Day Years [...] Assessment Author No 08/26/2023 10:23 AM EDT lEi Kilgore RMA * Because of a physical, [...] Eli Kilgore RMA documented in this encounter Medications at Time of Discharge aspirin 81 mg Oral Tablet, Delayed Release (E.C.)Indications :ASD (atrial septal defect),H/O Amplatzer atrial septal defect closure TAKE ONE TABLET BY MOUTH DAILY 90 Tab 2 03/20/2020 amLODIPine (NORVASC) 2.5 mg Oral Tablet Take 1 Tablet by mouth daily. 90 Tablet 3 11/18/2022 10/24/2023 metoprolol succinate (TOPROL-XL) 25 mg Oral Tablet Sustained Release 24 hrIndications:Pal pitations Take 1 tablet by mouth once daily 90 Tablet 1 08/04/2023 02/11/2024 documented as of this encounter Discharge Disposition Disposition Code Departure Means Destination Home or Self Care documented in this encounter Plan of Treatment Upcoming Encounters Date Type Department Care Team (Late st Contact Info) Description 04/24/2024 10:45 AM EST Clinical Support [facility] 100 [place] [address] documented as of this encounter Goals Goal Patient Goal Type Associated Problems Recent Progress Patient-Stated? Author Maintain a healthy diet, exercise regularly and maintain an ideal body weight General No Thea Rubio MD Stay Tobacco Free Lifestyle No Thea Rubio MD documented as of this encounter Procedures Procedure Name Priority Date/Time Associated Diagnosis Comments MM MAMMO DIGITAL MADELEINE SCREEN BILAT Routine 08/26/2023 7:37 AM EDT Encounter for screening mammogram for malignant neoplasm of breast documented in this encounter Results * MM MAMMO DIGITAL MADELEINE SCREEN BILAT (08/26/2023 7:37 AM EDT) Anatomical Region Laterality Modality Breast Bilateral Mammography 08/26/2023 7:54 AM EDT Impressions 08/26/2023 7:54 AM EDT Negative ??([id number]) ~ RECOMMENDATION: Routine screening mammogram in 1 [...] the next mammogram, in accordance with the [employer] and the Society of Breast Imaging recommendations. Narrative 08/26/2023 7:54 AM EDT Procedure:MM MAMMO DIGITAL MADELEINE SCREEN BILAT ~ Reason for exam: screening, asymptomatic. Z12.31-Encounter for screening mammogram for malignant neoplasm of [id number]-CM ~ MM MAMMO DIGITAL MADELEINE SCREEN BILAT [...] for screening mammogram for malignant neoplasm of akgupx-DNX-87-CM ~ MM MAMMO DIGITAL MADELEINE SCREEN BILAT Bilateral CC and MLO view(s) were taken. The breast tissue is heterogeneously dense. This may lower thesensitivity of mammography. Prior study comparison: Compared with prior studies the most recentbeing 07/10/22, 10/30/20 No mammographic evidence of malignancy. ~ IMPRESSION: Negative ([id number]) ~ RECOMMENDATION: Routine screening mammogram in 1 [...] the next mammogram, in accordance with the [employer] and the Society of Breast Imaging recommendations. Misty Gillespie MD IMG MAMMOGRAPHY ORDERABLES Final Result documented in this encounter Visit Diagnoses Diagnosis Encounter for screening mammogram for malignant neoplasm of breast Other screening mammogram documented in this encounter Care Teams Public Health Technologist Relationship Specialty Start Date End Date Mini Reeder MD [address] [place] [address] PCP - General Family Medicine 08/26/23 Abdifatah Uriarte MD [address] [place] [address] [place] [address] Consulting Physician Obstetrics & Gynecology-Gynecologic Oncology 12/16/19 documented as of this encounter
--- OUTSIDE RECORDS SUMMARY | 2024-03-14 18:14 | XMS_ITS | Encounter Summary ---
Author Organization [facility] [place] [address] Care Team Providers Care Loan Review Officer Name Role Phone Abdifatah Uriarte MD Unavailable [phone] Mini Reeder MD Primary Care Provider [phone] Reason for Visit * Reason Comments Injections Encounter Details Date Type Department Care Team (Latest Contact Info) Description 09/27/2023 9:00 AM EDT Clinical Support [facility] [address] [place] [address] Corey Cruz RMA Cyanocobalamin deficiency (Primary Dx) Social History Tobacco [...] Sign Reading Time Taken Comments Blood Pressure - - Pulse - - Temperature - - Respiratory Rate - - Oxygen Saturation - - Inhaled Oxygen Concentration - - Weight 72.6 kg (160 lb) 09/27/2023 10:47 AM EDT Height 164.5 cm (5' 4.75 ) 09/27/2023 10:47 AM E DT Body Mass Index 26.83 09/27/2023 10:47 AM EDT documented in this encounter Functional [...] documented in this encounter Progress Notes * Corey Cruz RMA - 09/27/2023 9:00 AM EDT Patient came into the office for a B-12 injections Patient was informed to expect muscle pain afteran intramuscular injection and to call the office if there are any issues. Patient supplied injection/vaccine no Pt given 1 ml, in the Right deltoid documented in this encounter Plan of Treatment Upcoming Encounters Date Type Department Care Team (Late st Contact Info) Description 04/24/2024 10:45 AM EST Clinical Support [facility] [address] [place] [address] documented as of this encounter Goals Goal [...] 1,000 mcg, Intramuscular, ONCE, 1 dose, On 09/29/23 at 1015, Dx: 1. Cyanocobalamin deficiencyIndications:Cyano cobalamin deficiency Given 09/27/2023 10:47 AM EDT 1,000 mcg Right Deltoid documented in this encounter Care Teams Loan Review Officer Relationship Specialty Start Date End Date Mini Reeder MD [address] [place] [address] PCP - General Family Medicine 08/26/23 Abdifatah Uriarte MD [address] [place] [address] [place] [phone] Consulting Physician Obstetrics & Gynecology-Gynecologic Oncology 12/16/19 documented as of this encounter
--- OUTSIDE RECORDS SUMMARY | 2024-03-14 18:14 | XMS_ITS | Encounter Summary ---
Author Organization [place] [address] Care Team Providers Care Marble Carver Name Role Phone Abdifatah Uriarte MD Unavailable [phone] Mini Reeder MD Primary Care Provider [phone] Reason for Visit * Reason Onset Date Comments Medication Refill Central Patient Navigator Outreach 10/24/2023 med refill [facility]st [facility] Encounter Details Date Type Department Care Team (Late st Contact Info) Description 10/24/2023 Refill [facility] [address] [place] [address] Migue Anne MD [address] [place] [address] Medication Refill; Central Patient Navigator Outreach (med refill 1st H&[facility] ) Social History Tobacco Use Types Packs/Day [...] EDEli Donnelly RMA documented in this encounter Ordered Prescriptions Prescription Sig Dispense Quantity Refills Last Filled Start Date End Date amLODIPine (NORVASC) 2.5 mg Oral Tablet Take 1 tablet by mouth once daily 30 Tablet 10/24/2023 12/02/2023 documented in this encounter Miscellaneous Notes * Telephone Encounter - Ambar Rajput - 10/27/2023 9:12 AM EDT Patient Outreach: Medication refill appointment, 1st [facility] Attempt Count: 2nd Care Gaps Addressed manager contracting: Appointment Outcome: Left message to return call at . * Telephone Encounter - Myrtle Schulte - 10/24/2023 2:25 PM EDT Patient Outreach: Medication refill appointment, [facility] Attempt Count: 1st Care Gaps Addressed manager contracting: Appointment Outcome: Left message to return call at and MyChart Message Sent. * Telephone Encounter - Johnna Esparza CPhT - 10/24/2023 2:15 PM EDT Amlodipine Medication Refill Protocol failed due to appointment. counseling services director Reason: Chart review does not show a coded diagnosis in protocol timeframe. counseling services director Action: Approved 30-day supply of medication Routed to Patient Navigator team for outreach to schedule appointment. documented in this encounter Plan of Treatment Upcoming Encounters Date Type Department Care Team (Late st Contact Info) Description 04/24/2024 10:45 AM EST Clinical Support [facility] 100 [place] [address] documented as of this encounter Goals Goal Patient Goal Type Associated Problems Recent Progress Patient-Stated? Author Maintain a healthy diet, exercise regularly and maintain an ideal body weight General No Thea Rubio MD Stay Tobacco Free Lifestyle No Thea Rubio MD documented as of this encounter Visit Diagnoses Not on filedocumented in this encounter Discontinued Medications Medication Sig Discontinue Reason Start Date End Da te amLODIPine (NORVASC) 2.5 mg Oral Tablet Take 1 Tablet by mouth daily. 11/18/2022 10/24/2023 documented as of this encounter Care Teams Marble Carver Relationship Specialty Start Date End Date Mini Reeder MD [address] [place] [address] PCP - General Family Medicine 08/26/23 Abdifatah Uriarte MD [address] [facility] [address] Consulting Physician Obstetrics & Gynecology-Gynecologic Oncology 12/16/19 documented as of this encounter
--- OUTSIDE RECORDS SUMMARY | 2024-03-14 18:14 | XMS_ITS | Encounter Summary ---
Author Organization [place] [address] Care Team Providers Care Merchandise Director Name Role Phone Abdifatah Uriarte MD Unavailable [phone] Abdifatah Geiger MD Primary Care Provider [phone] Encounter Details Date Type Department Care Team ([facility] Contact Info) Description 08/19/2023 Orders Only [facility] [address] [place] [phone] Cassy Trujillo, RN Social History Tobacco Use Types Packs/Day Years [...] Encounters Date Type Department Care Team (Late Contact Info) Description 04/24/2024 10:45 AM EST Clinical Support [facility] [address] [place] [address] documented as of this encounter [...] documented as of this encounter Care Teams Merchandise Director Relationship Specialty Start Date End Date Abdifatah Geiger MD [address] [place] [address] PCP - General Family Medicine 07/17/22 08/25/23 Abdifatah Uriarte MD [address] [place] [address] [place] [address] Consulting Physician Obstetrics & Gynecology-Gynecologic Oncology 12/16/19 documented as of this encounter
--- OUTSIDE RECORDS SUMMARY | 2024-03-14 18:14 | XMS_ITS | Encounter Summary ---
Author Organization [place] [address] Care Team Providers Care Manager Plan Name Role Phone Abdifatah Uriarte MD Unavailable [phone] Mini Reeder MD Primary Care Provider [phone] Reason for Visit * Reason Comments Injections Depo injection Encounter Details Date Type Department Care Team (Latest Contact Info) Description 08/26/2023 9:00 AM EDT Clinical Support [facility] [address] [place] [phone] Louann Mccray MA Excessive and frequent menstruation (Primary Dx) [...] 04/24/2024 10:45 AM EST Clinical Support [facility] 100 [place] [address] documented as of this encounter Goals Goal [...] 150 mg, Intramuscular, ONCE, 1 dose, On Fri08/26/23 at 0830, Dx: 1. Excessive and frequent menstruationIndications:Exce ssive and frequent menstruation Given 08/26/2023 8:22 AM EDT 150 mg Left Deltoid documented in this encounter Care Teams Manager Plan Relationship Specialty Start Date End Date Mini Reeder MD [address] [place], [place] [phone] PCP - General Family Medicine 08/26/23 Abdifatah Uriarte MD [address] [place] [address] [place] [address] Consulting Physician Obstetrics & Gynecology-Gynecologic Oncology 12/16/19 documented as of this encounter
--- OUTSIDE RECORDS SUMMARY | 2024-03-14 18:14 | XMS_ITS | Referral Summary ---
Author Organization JULIAN SETH OD Address One [facility] [place] [address] Phone Care Team Providers Care Motor Vehicle Examiner Name Role Phone Abdifatah Uriarte MD Unavailable [phone] Mini Reeder MD Primary Care Provider Encounters Date Type Department Care Team Description 03/03/2024 Telephone [facility] [address] [place] [address] Mini Reeder MD Results (Labs 02/26) 03/02/2024 Orders Only [facility] [address] [place] [address] Mini Reeder MD 02/27/2024 Orders Only [facility] [address] [place] [address] Mini Reeder MD Hematuria, unspecified type (Primary Dx) 02/27/2024 2:45 PM EST Office Visit [facility] [address] [place] [address] Mini Reeder MD Dysuria (Primary Dx); Hematuria, unspecified type 02/26/2024 Travel 02/09/2024 Telephone [facility] [address] [place] [address] Bud Jones APRN Results 02/09/2024 Refill [facility] [address] [place] [address] Migue Anne MD Medication Refill 02/07/2024 9:00 AM EDT Office Visit [facility] [address] [place] [address] Bud Jones APRN Annual physical exam (Primary Dx); Chronic midline posterior neck pain; Vitamin B 12 deficiency; Depo-Provera contraceptive status 02/02/2024 Telephone [facility] [address] [place] [address] Mini Reeder MD Appointment Needed (Dep shot ) from Last 3 Months Allergies Active Allergy Reactions Criticality Noted Date [...] Overview: Added automatically from request for surgery [id number] Anemia 11/19/2017 10/09/2018 Overview (05/01/2018): Overview: Added automatically from request for surgery [id number] Status post exploratory laparotomy 11/07/2016 10/09/2018 Obesity 09/13/2014 04/19/2016 Normal pelvic exam 03/08/2014 9 Acute pancreatitis 05/27/2011 9 Cholangitis 12/11/2006 10/09/2018 Immunizations Name Administration Dates Next Due DTaP (Daptacel) 04/22/2008 Influenza Patient Reported 06/25/2018 Tdap 10/27/2019,09/26/2015 Social History Tobacco Use Types Packs/Day Years [...] on file Sexual Orientation Not on file Last Filed Vital Signs Vital Sign Reading [...] Mass Index 28.15 02/27/2024 2:55 PM EST Functional Status * Is the person deaf [...] Assessment Author No 08/26/2023 10:23 AM EDT Kilgore, Eli Alexa, RMA Mental Status * Because of a physical, mental or emotional condition, does this person have serious difficulty concentrating, remembering or making decisions? Answer Entry Date Author No 08/26/2023 10:23 AM EDT Eli Kilgore RMA Plan of Treatment Upcoming Encounters Date Type Department Care Team (Late st Contact Info) Description 04/24/2024 10:45 AM EST Clinical Support [facility] [address] [place] [address] Goals Goal Patient Goal Type Associated Problems Recent Progress Patient-Stated? Author Maintain a healthy diet, exercise regularly and maintain an ideal body weight General No Thea Rubio MD Stay Tobacco Free Lifestyle No Thea Rubio MD Medical Devices Implanted Type Area Enameler Device Identifier Shelf Expiration Date Model / Serial / Lot Occluder Septal Amplatzer 7 Fr 14 Mm - [id number] Implanted:Qty: 1 on 07/09/2017 by Genaro Ibarra MD at [facility] [id number] / / [id number] Procedures Procedure Name Priority Date/Time Associated Diagnosis [...] screening mammogram for malignant neoplasm of breast [facility] INSPECTOR PLATING CYTOLOGY ORDER Routine 06/17/2023 9:36 AM EST Well woman exam with routine gynecological exam from Last 3 Months or Most Recently Relevant to Health Maintenance Results * (ABNORMAL) URINE CULTURE (NO STAIN) (02/27/2024 4:05 PM EST) Culture Positive Growth(A) 03/02/2024 11:20 AM EST [facility] Culture 20,000 CFU/mL Streptococcus agalactiae (Group B) SUSCEPTIB ILITY RESULT 03/02/2024 11:20 AM EST [facility] Comment: isolated in addition to multiple bacterial species consistent with urogenital commensal organisms. No further workup. Urine URINE SPECIMEN COLLECTION, CLEAN CATCH / Unknown 02/27/2024 4:05 PM EST 02/27/2024 4:05 PM EST us Mini Reeder MD MICROBIOLOGY - GENERAL ORDERAB LES Final Result [facility] [address] [place] [address] , [place] [address] * (ABNORMAL) SEP URINALYSIS POC (02/27/2024 3:57 [...] - 8.0 pH 02/27/2024 4:00 PM EST [facility] UA Protein POC Negative Negative mg/dL 02/27/2024 4:00 PM EST [facility] UA Urobilinogen POC 1.0 0.2, 1.0 02/27/2024 4:00 PM EST [facility] UA Nitrite POC Negative Negative 02/27/2024 4:00 PM EST [facility] UA Leuk Est POC Small(A) Negative 4:00 PM EST [facility] Urine URINE SPECIMEN COLLECTION / Unknown 02/27/2024 3:57 PM EST 02/27/2024 4:00 PM EST Mini Reeder MD POINT OF CARE TEST ORDERABLES Final Result Performing Organization Address [facility] Co de Phone Number [address] [address] * VITAMIN B12/ FOLIC ACID (02/07/2024 10:16 AM EDT) Vitamin B12 416 232 - 1,245 pg/mL 02/07/2024 3:28 PM EDT [facility] Folate 9.21 >=4.80 ng/mL 02/07/2024 3:28 PM EDT [email or web address] Blood VENOUS BLOOD / Unknown Venipuncture / Unknown 02/07/2024 10:16 AM EDT 02/07/2024 10:16 AM EDT Narrative [facility] - 02/07/2024 3:28 PM EDT Ingestion of abimael doses of biotin (>5 mg/day) taken within 8 hours of drawing blood sample can interfere with this immunoassay test. us Bud Jones APRN CHEMISTRY ORDERABLES Final R esult [facility] [address] [facility] , [place] [address] * CBC (02/07/2024 10:16 AM EDT) WBC 6.8 3.7 - 10.3 x10(3)/mcL 02/07/2024 2:30 PM EDT [facility] RBC 4.75 3.90 - 5.20 x10(6)/mcL 02/07/2024 2:30 PM EDT [facility] Hgb 13.4 11.2 - 15.7 g/dL 02/07/2024 2:30 PM EDT [facility] Hct 41.8 34.0 - 45.0 % 02/07/2024 2:30 PM EDT [facility] MCV 88.0 80.0 - 100.0 fL 02/07/2024 2:30 PM EDT [facility] MCH 28.2 26.0 - 34.0 pg 02/07/2024 2:30 PM EDT [facility] MCHC 32.1 30.7 - 35.5 g/dL 02/07/2024 2:30 PM EDT [facility] RDW 12.7 <=14.9 % 02/07/2024 2:30 PM EDT [facility] Platelet 319 155 - 369 x10(3)/mcL 02/07/2024 2:30 PM EDT [facility] MPV 9.7 8.8 - 12.5 fL 02/07/2024 2:30 PM EDT [facility] Blood VENOUS BLOOD / Unknown Venipuncture / Unknown 02/07/2024 10:16 AM EDT 02/07/2024 10:16 AM EDT Bud Jones PRESS WRITER HEMATOLOGY ORDERABLES Final Result [facility] [address] [facility] , [place] [address] * THYROID STIMULATING HORMONE (02/07/2024 10:16 AM EDT) Pathologist [facility] TSH 1.450 0.270 - 4.200 mcIU/mL 02/07/2024 3:09 PM EDT [facility] Blood VENOUS BLOOD / Unknown Venipuncture / Unknown 02/07/2024 10:16 AM EDT 02/07/2024 10:16 AM EDT Narrative [facility] - 02/07/2024 3:09 PM EDT Ingestion of abimael doses of biotin (>5 mg/day) taken within 8 hours of drawing blood sample can interfere with this immunoassay test. Bud Jones APRN CHEMISTRY ORDERABLES Final R esult Performing Organization Address City/[facility]/ZIP Co de Phone Number [facility] [address] [facility] , [place] [address] * HEMOGLOBIN A1C (02/07/2024 10:16 AM EDT) Hgb A1C 5.3 4.2 - 5.6 % 02/07/2024 2:[address] [facility] Est. Avg Glucose 105 mg/dL 02/07/2024 2:52 PM EDT [facility] Blood VENOUS BLOOD / Unknown Venipuncture / Unknown 02/07/2024 10:16 AM EDT 02/07/2024 10:[address] [facility] - 02/07/2024 2:52 PM EDT REFERENCE RANGE: [...] ORDERABLES Final R esult Performing Organization Address City/[facility]/ZIP Co de Phone Number [facility] [address] [facility] [address], [place] [address] [facility] [address] [place] [address] * LIPID SCREEN (02/07/2024 10:16 AM EDT) Cholesterol 161 <200 mg/dL 02/07/2024 3:09 PM EDT [facility] Comment: < 200 ?Desirable 200 - 239 ? Borderline High >= 240 ?High Triglyceride 74 <150 mg/dL 02/07/2024 3:09 PM EDT [facility] Comment: < 150 ? Normal 150 - 199 ?Borderline High 200 - 499 ?High ??>= 500 ? Very High HDL 52 >=40 mg/dL 02/07/2024 3:09 PM EDT [facility] Comment: ??> 60 ?Optimal 40 - 60 ?Acceptable ?? < 40 ?Low LDL Calculated 95 <100 mg/dL 02/07/2024 3:09 PM EDT [facility] Comment: < 100 ?Optimal 100 - 129 ? Near or above optimal 130 - 159 ? Borderline High 160 - 189 ? High >= 190 ?Very High Non-HDL-C Calculated 109 <=129 mg/dL 02/07/2024 3:09 PM EDT [facility] Comment: <130 ?Desirable 130-159 Above Desirable 160-189 Borderline High 190-219 High >= 220 ??Very High Fasting Specimen? Unknown None 024 3:09 PM EDT [facility] Blood VENOUS BLOOD / Unknown Venipuncture / Unknown 02/07/2024 10:16 AM EDT 02/07/2024 10:16 AM EDT us Bud Jones PRESS WRITER CHEMISTRY ORDERABLES Final R esult [facility] [address] [facility], [place] [address] [facility] 1 [place] [address] * COMPREHENSIVE METABOLIC PANEL (02/07/2024 10:16 AM EDT) [facility] Sodium 141 136 - 145 mmol/L 02/07/2024 [...] mL/min/1.7 3 m2 02/07/2024 3:09 PM EDT [facility] Comment:Estimated GFR was ca lculated using the CKD-EPIcr (2020) equation refit without race. The equation is recommended by the National Kidney Foundation - [place] [employer] Neph[employer] Task Force. Blood VENOUS BLOOD / Unknown Venipuncture / Unknown 02/07/2024 10:16 AM EDT 02/07/2024 10:16 AM EDT us Bud Jones PRESS WRITER CHEMISTRY ORDERABLES Final R esult [facility] [address] [facility] [place] [id number] [facility] [address] [place] [address] * MM MAMMO DIGITAL MADELEINE SCREEN BILAT (08/26/2023 7:37 AM EDT) Anatomical Region Laterality Modality Breast Bilateral Mammography 08/26/2023 7:54 AM EDT Impressions 08/26/2023 7:54 AM EDT Negative ??([id number]) ~ RECOMMENDATION: Routine screening mammogram in 1 [...] the next mammogram, in accordance with the [employer] and the Society of Breast Imaging recommendations. Narrative 08/26/2023 7:54 AM EDT Procedure:MM MAMMO DIGITAL MADELEINE SCREEN BILAT ~ Reason for exam: screening, asymptomatic. Z12.31-Encounter for screening mammogram for malignant neoplasm of [id number] ~ MM MAMMO DIGITAL MADELEINE SCREEN BILAT [...] for screening mammogram for malignant neoplasm of [id number] ~ MM MAMMO DIGITAL MADELEINE SCREEN BILAT Bilateral CC and MLO view(s) were taken. The breast tissue is heterogeneously dense. This may lower thesensitivity of mammography. Prior study comparison: Compared with prior studies the most recentbeing 07/10/22, 10/30/20 No mammographic evidence of malignancy. ~ IMPRESSION: Negative ([id number]) ~ RECOMMENDATION: Routine screening mammogram in 1 [...] the next mammogram, in accordance with the [employer] and the Society of Breast Imaging recommendations. Misty Gillespie MD [facility] MAMMOGRAPHY ORDERABLES Final Result from Last 3 Months or Most Recently Relevant to Health Maintenance Insurance [id number] [address] Care Teams Motor Vehicle Examiner Relationship Specialty Start Date End Date Mini Reeder MD [address] [place] [address] PCP - General Family Medicine 08/26/23 Abdifatah Uriarte MD [address] [place] [address] [place] [address] Consulting Physician Obstetrics & Gynecology-Gynecologic Oncology 12/16/19
--- OUTSIDE RECORDS SUMMARY | 2024-03-14 18:14 | XMS_ITS | Encounter Summary ---
Author Organization [facility] [place] [address] Care Team Providers Care Tunnel Miner Name Role Phone Abdifatah Uriarte MD Unavailable [phone] Mini Reeder MD Primary Care Provider [phone] Encounter Details Date Type Department Care Team (Latest Contact Info) Description 02/26/2024 Travel Social History Tobacco Use Types Packs/Day [...] 04/24/2024 10:45 AM EST Clinical Support [facility] [address] [place] [address] documented as of this encounter Goals Goal Patient Goal Type Associated Problems Recent Progress Patient-Stated? Author Maintain a healthy diet, exercise regularly and maintain an ideal body weight General No Thea Rubio MD Stay Tobacco Free Lifestyle No Thea Rubio MD documented as of this encounter Visit Diagnoses Not on filedocumented in this encounter Care Teams Tunnel Miner Relationship Specialty Start Date End Date Mini Reeder MD [address] [place], [place] [id number] PCP - General Family Medicine 08/26/23 Abdifatah Uriarte MD [address] [place] [address] [place] [address] Consulting Physician Obstetrics & Gynecology-Gynecologic Oncology 12/16/19 documented as of this encounter
--- OUTSIDE RECORDS SUMMARY | 2024-03-14 18:14 | XMS_ITS | Encounter Summary ---
Author Organization [place] [address] Care Team Providers Care Rules Examiner Name Role Phone Abdifatah Uriarte MD Unavailable [phone] Mini Reeder MD Primary Care Provider [phone] Reason for Visit * Reason Comments Medication Refill Encounter Details Date Type Department Care Team (Late Contact Info) Description 11/30/2023 Refill [facility] [address] [place] [address] Migue Anne MD [address] [place] [address] Medication Refill Social History Tobacco Use Types [...] tablet by mouth once daily 90 Tablet 12/02/2023 documented in this encounter Miscellaneous Notes * Telephone Encounter - Irma Gordon CPhT - 12/02/2023 7:29 AM EDT Amlodipine 2.5 Medication Refill Protocol passed. Andre Action: Approved 90 day supply with sufficient refills to noted follow-up date by provider or protocol if no follow-up date noted, not to exceed 90 days past that date. This diagnosis was last coded on 12/17/22. documented in this encounter Plan of Treatment Upcoming Encounters Date Type Department Care Team (Late st Contact Info) Description 04/24/2024 10:45 AM EST Clinical Support [facility] [address] [place] [address] documented as of this encounter [...] Take 1 tablet by mouth once daily 10/24/2023 12/02/2023 documented as of this encounter Care Teams Rules Examiner Relationship Specialty Start Date End Date Mini Reeder MD [address] [place] [address] PCP - General Family Medicine 08/26/23 Abdifatah Uriarte MD [address] [place] [address] [place] [address] Consulting Physician Obstetrics & Gynecology-Gynecologic Oncology 12/16/19 documented as of this encounter
--- OUTSIDE RECORDS SUMMARY | 2024-03-14 18:14 | XMS_ITS | Encounter Summary ---
Author Organization [place] [address] Care Team Providers Care Fast Food Delivery Driver Name Role Phone Abdifatah Uriarte MD Unavailable [phone] Abdifatah Geiger MD Primary Care Provider [phone] Reason for Visit * Reason Onset Date Comments Medication Refill 08/19/2023 Encounter Details Date Type Department Care Team (Late st Contact Info) Description 08/19/2023 Telephone [facility] [place] [address] [place] [phone] Misty Gillespie MD [address] [place] [address] Medication Refill Social History Tobacco Use Types [...] encounter Miscellaneous Notes * Telephone Encounter - Cassy Trujillo, RN - 08/19/2023 11:21 AM EDT This was addressed by care team at 830a * Telephone Encounter - Eli Thorpe - 08/19/2023 9:36 AM EDT Please refill depo. [place] 05/2023, please give refills to last until due for next annual, Isa Yepez. documented in this encounter Plan of Treatment Upcoming Encounters Date Type Department Care Team (Late st Contact Info) Description 04/24/2024 10:45 AM EST Clinical Support [facility] [address] [place] [address] documented as of this encounter [...] documented as of this encounter Care Teams Fast Food Delivery Driver Relationship Specialty Start Date End Date Abdifatah Geiger MD [address] [place] [phone] PCP - General Family Medicine 07/17/22 08/25/23 Abdifatah Uriarte MD [address] [place] [address] [place] [address] Consulting Physician Obstetrics & Gynecology-Gynecologic Oncology 12/16/19 documented as of this encounter
--- OUTSIDE RECORDS SUMMARY | 2024-03-14 18:15 | XMS_ITS | Encounter Summary ---
Author Organization [place] [address] Care Team Providers Care Grant Officer Name Role Phone Abdifatah Uriarte MD Unavailable [phone] Abdifatah Geiger MD Primary Care Provider [phone] Reason for Visit * Reason Onset Date Comments Medication Refill 08/17/2022 Encounter Details Date Type Department Care Team (Late st Contact Info) Description 08/17/2022 Refill [facility] [address] [place] [address] Migue Anne MD [address] [place] [address] Medication Refill Social History Tobacco Use Types [...] 04/24/2024 10:45 AM EST Clinical Support [facility] [address] [place] [address] documented as of this encounter [...] documented as of this encounter Care Teams Grant Officer Relationship Specialty Start Date End Date Abdifatah Geiger MD [address] [place] [phone] PCP - General Family Medicine 07/17/22 08/25/23 Abdifatah Uriarte MD [address] [place] [address] [place] [address] Consulting Physician Obstetrics & Gynecology-Gynecologic Oncology 12/16/19 documented as of this encounter
--- OUTSIDE RECORDS SUMMARY | 2024-03-14 18:15 | XMS_ITS | Encounter Summary ---
Author Organization [place] [place] [address] Care Team Providers Care Senior Environmental Technician Name Role Phone Abdifatah Uriarte MD Unavailable [phone] Abdifatah Geiger MD Primary Care Provider [phone] Reason for Visit * Reason Comments Chest Pain Complains of chest p ain and shortness of breath for 10 minutes. CPTA-none Encounter Details Date Type Department Care Team (Late st Contact Info) Description 06/21/2023 9:25 AM EST - 06/21/2023 12:28 PM EST [facility] [address] [place], [place] [id number] Genaro Sanchez MD [address] [place] [id number] Chest pain, unspecified type (Primary Dx) Discharge Disposition: Home or Self Care Social [...] Sign Reading Time Taken Comments Blood Pressure 125/72 06/21/2023 9:30 AM EST Pulse 80 06/21/2023 9:30 AM EST Temperature 36.7 ??C (98 ??F) 06/21/2023 9:30 AM EST Respiratory Rate 20 06/21/2023 9:30 AM EST Oxygen Saturation 98% 06/21/2023 9:30 AM EST Inhaled Oxygen Concentration - - Weight - - Height - - Body Mass Index - - documented in this encounter Discharge Instructions * Attachments The following attachments cannot be sent through Care Everywhere. * Chest Pain Discharge Instructions (Marshallese) documented in this encounter Medications at Time [...] by mouth once daily 90 Tablet 1 02/05/2023 08/04/2023 documented as of this encounter Discharge Disposition Disposition Code Departure Means Destination Comment s Home or Self [facility] documented in this encounter ED Notes * Genaro Sanchez MD - 06/21/2023 9:24 AM EST CC: Chief Complaint Patient presents with Chest Pain Complains of chest pain and shortness of breath for 10 minutes. CPTA-none HPI: Gardenia Childress is a 43 y.o. female with a past medical history significant for celiac artery stenosis, migraines, recurrent chest pain, ASD who presents to the emergency department for evaluation of chest tightness and shortness of breath. Symptoms began about 10 minutes prior to arrival. She has had similar episodes in the past. She states that she was making coffee for her boyfriend when this occurred. She was in the kitchen. Nothing is helping her symptoms. She still feels short of breath now. ROS: All Pertinent ROS Negative Unless otherwise stated within HPI. VITALS: Vitals: 06/21/23 0930 BP: 125/72 Pulse: 80 Resp: 20 Temp: 98 ??F (36.7 ??C) SpO2: 98% PHYSICAL EXAM: General: Appears anxious HEENT: Atraumatic. EOMI. Neck: ROM normal, supple. Chest: Equal Chest Rise. Cardiovascular: Well-perfused. Regular rate and rhythm. Lungs: Respiratory effort normal. Clear to auscultation bilaterally. Abdomen: Nondistended. Soft, no guarding or rebound. /Anorectal: Deferred. Musculoskeletal: Moving all four extremities without deformity. Skin: Warm and dry. Psych: Anxious Neurologic: Awake & Alert, Nonfocal. LABS/IMAGING: Reviewed (See Orders) XR CHEST AP PORTABLE Final Result No acute finding. - Note: Radiology results need to be interpreted within a comprehensive clinical context. If you have questions about the radiology report, please contact the office of the ordering clinician. EK EKG [address] 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[facility] : 1980 Requested By: [facility] Order Number: [id number] Reading MD: Genaro Monte MD Measurements Intervals [place] Rate: 71 P: 66 OH: 129 QRS: 85 QRSD: 101 T: 44 QT: 373 QTc: 406 Interpretive Statements SINUS RHYTHM WITH SINUS ARRHYTHMIA INCOMPLETE RIGHT BUNDLE BRANCH BLOCK Electronically Signed On 06-21-2023 9:42:07 EST by Genaro Monte MD Abnormal Labs Reviewed CBC - Abnormal; Notable for the following components: Result Value Platelet 394 (*) All other components within normal limits BASIC METABOLIC PANEL - Abnormal; Notable for the following components: Total CO2 20 (*) BUN 4 (*) All other components within normal limits MEDICATIONS ADMINISTERED: Medications sodium chloride 0.9% syringe 5-10 mL (has no administration in time range) sodium chloride 0.9% IV line flush 50 mL (has no administration in time range) MEDICAL DECISION MAKING: Gardenia Childress is a 43 y.o. female who presents with chest tightness and shortness of breath, Acute.Concerning for possible acute coronary syndrome, pneumothorax, pneumonia, pulmonary embolus, viral illnesses COVID-19 or influenza. Patient's presenting with shortness of breath and chest tightness. I have ordered cardiac testing for the patient as well as COVID-19 and influenza testing. ECG is within normal limits. Patient is PERC negative. Independent Imaging/EKG Interpretations: This is a sinus rhythm at a rate of 71. OH interval is appropriate 129. QRS is narrow at 101. Thereare no acute abnormalities per my interpretation. History obtained via patient. I reviewed the patient's recent medical record which revealed: As noted above in the history of present illness. Discussed Patient with another provider: No. Social Determinants of Health: Noncontributory Care of patient discussed with nursing team and nursing documentation reviewed. As of 12:26 PM, the patient's workup has been completed. Patient's cardiac testing was reassuring. 2-hour troponin remained stable. Her symptoms are not consistent with pneumonia or pneumothorax. Shehas had resolution of her discomfort. It is unclear why she is getting recurrent episodes of chest pain. I recommended follow-up with her specialist. She will return if she develops worsening symptoms or other concerns. PROCEDURES: Procedures Prescriptions Written: ED Current Prescriptions None IMPRESSION: 1. Chest pain, unspecified type DISPOSITION: Discharge Condition at Discharge/Transfer from Department: Stable In cases where narcotics are prescribed, BLUE report was obtained, reviewed, and made part of record. After examining available information, and risks of prescribing or dispensing controlled substances was explained to the patient (including non-treatment or other treatment), it is considered medically appropriate to administer narcotics as prescribed. Genaro Sanchez MD Emergency Medicine 06/21/23 Genaro Sanchez MD 06/21/23 1226 documented in this encounter Plan of Treatment Upcoming Encounters Date Type Department Care Team (Late st Contact Info) Description 04/24/2024 10:45 AM EST Clinical Support [facility] [address] [place] [address] documented as of this encounter Goals Goal Patient Goal Type Associated Problems Recent Progress Patient-Stated? Author Maintain a healthy diet, exercise regularly and maintain an ideal body weight General No Thea Rubio MD Stay Tobacco Free Lifestyle No Thea Rubio MD documented as of this encounter Procedures Procedure Name Priority Date/Time Associated Diagnosis Comments SCANNED EKG 06/23/2023 9:53 AM EST TROPONIN-T HIGH SENSITIVITY 2HR Timed 06/21/2023 11:52 AM EST TROPONIN-T HIGH SENSITIVITY BASELINE W/ REFLEX STAT 06/21/2023 10:04 AM EST CBC STAT 06/21/2023 10:04 AM EST HUMAN CHORIONIC GONADOTROPIN QUANTITATIVE STAT 06/21/2023 10:04 AM EST BASIC METABOLIC PANEL STAT 06/21/2023 10:04 AM EST [id number] A/B Routine 06/21/2023 9:4 7 AM EST XR CHEST AP PORTABLE STAT 06/21/2023 9:44 AM EST EK EKG 12 LEAD STAT 06/21/2023 9:26 AM EST documented in this encounter Results * SCANNED EKG (06/23/2023 9:53 AM EST) Anatomical Region Laterality Modality Other 06/23/2023 9:53 AM EST us Unknown Provider IMG ECG ORDERABLES Final Result * TROPONIN-T HIGH SENSITIVITY 2HR (06/21/2023 11:52 AM EST) lf-[id number]-E 2HR <6 <14 ng/L 06/21/2023 12:16 PM EST [facility] Comment:See the website Information Assurance for rule out RI care pathway, conditions other than AMI that can cause elevated hs cTnT, and comparison of values from the 4th and 5th generation Olaf tests. https://askmayoexpert.[facility].org/topic/clinical-answers/gnt-60233620/cpm-203 24678 hs-cTnT 2Hr Delta from Baseline 06/21/2023 12:16 PM EST [facility] Comment:Unable to calculate, result is outside instrument's measuring range. Blood VENOUS BLOOD / Unknown Venipuncture / Unknown 06/21/2023 11:52 AM EST 06/21/2023 11:53 AM EST Narrative [facility] - 06/21/2023 12:16 PM EST Ingestion of abimael doses of biotin (>5 mg/day) taken within 8 hours of drawing blood sample can interfere with this immunoassay test. us Genaro Sanchez MD CHEMISTRY ORDERABLES Final Resu lt Performing Organization Address [facility] de Phone Number [facility] [address] [place] [address] * HUMAN CHORIONIC GONADOTROPIN QUANTITATIVE (06/21/2023 10:04 AM EST) Hcg Quant <1 <5 mIU/mL 06/21/2023 10:27 AM EST [facility] Blood VENOUS BLOOD / Unknown Venipuncture / Unknown 06/21/2023 10:04 AM EST 06/21/2023 10:08 AM EST Narrative [facility] - 06/21/2023 10:27 AM EST Ingestion of abimael doses of biotin (>5 mg/day) taken within 8 hours of drawing blood sample can interfere with this immunoassay test. Female (non-): 0-4.9 mIU/mL Female (postmenopausal): 0-8.1 mIU/mL Indeterminate values for (e.g., 5-25 mIU/mL) may be confirmed with a repeat test in 48-72 hours. Values in should double every 2-3 days for the first six weeks. us Genaro Sanchez MD CHEMISTRY ORDERABLES Final Resu lt Performing Organization Address [facility]/State/ZIP Co de Phone Number [facility] [address] [place] [id number] * TROPONIN-T HIGH SENSITIVITY BASELINE W/ REFLEX (06/21/2023 10:04 AM EST) Pathologist [facility] ii-lAaanukma-O <6 <14 ng/L 06/21/2023 10:32 AM EST [facility] Comment:See the website belo w for rule out RI care pathway, conditions other than AMI that can cause elevated hs cTnT, and comparison of values from the 4th and 5th generation Olaf tests. https://askmayoexpert.[facility].org/topic/clinical-answers/[email or web address]/cpm-203 25177 Blood VENOUS BLOOD / Unknown Venipuncture / Unknown 06/21/2023 10:04 AM EST 06/21/2023 10:08 AM EST Narrative [facility] - 06/21/2023 10:32 AM EST Ingestion of abimael doses of biotin (>5 mg/day) taken within 8 hours of drawing blood sample can interfere with this immunoassay test. us Genaro Sanchez MD CHEMISTRY ORDERABLES Final Resu lt [facility] [address] [place] [phone] * (ABNORMAL) BASIC METABOLIC PANEL (06/21/2023 10:04 AM EST) Pathologist [facility] Sodium 140 136 - 145 mmol/L 06/21/2023 10:27 AM EST [facility] Potassium 3.5 3.5 - 5.0 mmol/L 06/21/2023 10:27 AM EST [facility] Chloride 106 98 - 107 mmol/L 06/21/2023 10:27 AM EST [facility] Total CO2 20(L) 22 - 29 mmol/L 06/21/2023 10:27 AM EST [facility] Anion Gap 14 7 - 16 mmol/L 06/21/2023 10:27 AM EST [facility] Calcium 9.4 8.6 - 10.4 mg/dL 06/21/2023 10:27 AM [facility] Glucose Lvl 87 70 - 99 mg/dL 06/21/2023 10:27 AM [facility] BUN 4(L) 6 - 20 mg/dL 06/21/2023 10:27 AM [facility] Creatinine 0.73 0.51 - 1.30 mg/dL 06/21/2023 10:27 AM [facility] eGFR (CKD-EPIcr 2020) 105 >=60 mL/min/1.7 3 m2 06/21/2023 10:27 AM [facility] Comment:Estimated GFR was ca lculated using the CKD-EPIcr (2020) equation refit without race. The equation is recommended by the National Kidney Foundation - [place] Society of Nephrology Task Force. Blood VENOUS BLOOD / Unknown Venipuncture / Unknown 06/21/2023 10:04 AM EST 06/21/2023 10:08 AM EST us Genaro Sanchez MD CHEMISTRY ORDERABLES Final Resu lt [facility] [address] [place], [place] [phone] * (ABNORMAL) CBC (06/21/2023 10:04 AM EST) WBC 6.5 3.7 - 10.3 x10(3)/mcL 06/21/2023 10:11 AM [facility] RBC 4.86 3.90 - 5.20 x10(6)/mcL 06/21/2023 10:11 AM [facility] Hgb 13.8 11.2 - 15.7 g/dL 06/21/2023 10:11 AM [facility] Hct 41.1 34.0 - 45.0 % 06/21/2023 10:11 AM [facility] MCV 84.6 80.0 - 100.0 fL 06/21/2023 10:11 AM [facility] MCH 28.4 26.0 - 34.0 pg 06/21/2023 10:11 AM [facility] MCHC 33.6 30.7 - 35.5 g/dL 06/21/2023 10:11 AM [facility] RDW 12.8 <=14.9 % 06/21/2023 10:11 AM [facility] Platelet 394(H) 155 - 369 x10(3)/mcL 06/21/2023 10:11 AM [facility] MPV 9.2 8.8 - 12.5 fL 06/21/2023 10:11 AM [facility] Blood VENOUS BLOOD / Unknown Venipuncture / Unknown 06/21/2023 10:04 AM EST 06/21/2023 10:08 AM EST us Genaro Sanchez MD HEMATOLOGY ORDERABLES Final Res ult [facility] [address] [place] [address] * [id number] A/B (06/21/2023 9:47 AM EST) CORONAVIRUS [id number] Not Detected Not Detected 06/21/2023 10:20 AM [facility] Influenza A DNA Not Detected Not Detected 06/21/2023 10:20 AM [facility] Influenza B DNA Not Detected Not Detected 06/21/2023 10:20 AM [facility] Swab BOTH ANTERIOR NARES / Unknown 06/21/2023 9:47 AM EST 06/21/2023 9:49 AM EST Narrative [facility] - 06/21/2023 10:20 AM EST This test is a real-time RT-PCR test that simultaneously detects and differentiates nucleic acids from SARS-CoV-2, influenza A and influenza B in individuals suspected of a respiratory viral infection. Not Detected results do not preclude COVID-19 or influenza virus infection or other respiratory viruses and should not be used as the sole basis for treatment or other patient management decisions. Test is performed on the Birdie KAYLYNN platform under the FDA's Emergency Use Authorization (EUA). KAYLYNN Fact Sheet for Providers and Patients: KAYLYNN Fact Sheet for Providers: https://www.fda.gov/media/334764/download KAYLYNN Fact Sheet for Patients: https://www.[facility].gov/media/337109/download us Genaro Sanchez MD MICROBIOLOGY - GENERAL ORDERABL ES Final Result [facility] [address] [place] [address] * XR CHEST AP PORTABLE (06/21/2023 9:44 AM EST) Anatomical Region Laterality Modality Chest Radiographic Kristi ging 06/21/2023 9:44 AM EST Impressions 06/21/2023 9:43 AM EST No acute finding. - Note: Radiology results need to be interpreted within a comprehensive clinical context. ??If you have questions about the radiology report, please contact the office of the ordering clinician. Narrative 06/21/2023 9:43 AM EST XR CHEST AP PORTABLE, CLINICAL HISTORY: ??-CHEST PAIN COMPARISON: ??11/17/2017 PROCEDURE COMMENTS: AP portable technique. FINDINGS: Support devices: No visible support devices. Heart and mediastinal contours within normal limits for technique. ??No active failure, pneumonia, or visible effusion. ??No visible pneumothorax. Procedure Note Chandler Monreal MD - 06/21/2023 XR CHEST AP PORTABLE, CLINICAL HISTORY: -CHEST PAIN COMPARISON: 11/17/2017 PROCEDURE COMMENTS: AP portable technique. FINDINGS: Support devices: No visible support devices. Heart and mediastinal contours within normal limits for technique. Noactive failure, pneumonia, or visible effusion. No visible pneumothorax. IMPRESSION: No acute finding. - Note: Radiology results need to be interpreted within a comprehensiveclinical context. If you have questions about the radiology report, please contactthe office of the ordering clinician. us Genaro Sanchez MD IMG DIAGNOSTIC IMAGING ORDERABL ES Final Result * EK EKG 12 LEAD (06/21/2023 9:26 AM EST) Anatomical Region Laterality Modality Electrocardiogra phy 06/21/2023 9:32 AM EST Impressions 06/21/2023 9:42 AM EST ?[facility] ? Test Date: ?2023-06-21 Pat Name: ? GARDENIA HANKST ?Department: ?? DEPID ? Room: ? 06 Gender: ? Female ? 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 Requested By: [facility] Order Number: [id number] ?Reading MD: ?? Genaro Monte MD ? Measurements Intervals ?[place] ? Rate: ? 71 ? P: ?66 OH: ? 129 ?QRS: ?85 QRSD: ? 101 ?T: ?44 QT: ? 373 ? QTc: ?406 ? Interpretive Statements SINUS RHYTHM WITH SINUS ARRHYTHMIA INCOMPLETE RIGHT BUNDLE BRANCH BLOCK Electronically Signed On 06-21-2023 9:42:07 EST by Genaro Monte MD Narrative Procedure Note Genaro Monte MD - 06/21/[address] 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 Order Number: [id number] Reading MD: Genaro Monte MD Measurements Intervals [place] Rate: 71 P: 66 OH: 129 QRS: 85 QRSD: 101 T: 44 QT: 373 QTc: 406 Interpretive Statements SINUS RHYTHM WITH SINUS ARRHYTHMIA INCOMPLETE RIGHT BUNDLE BRANCH BLOCK Electronically Signed On 06-21-2023 9:42:07 EST by Genaro Monte MD Genaro Sanchez MD IMG ECG ORDERABLES Final Result documented in this encounter Visit Diagnoses Diagnosis Chest pain, unspecified type- Primary documented in this encounter Administered Medications Inactive Administered Medications - up to 1 most recent administrations Medication Order MAR Action Action Date Dose Rate Site sodium chloride 0.9% IV line flush 50 mL 50 mL, Intravenous, at 999 mL/hr, PRN, Starting on 06/21/23 at 0929, Until 06/21/23 at 1628, Line Care, Flush with 50 mL after IVPB to insure complete administration of the dose. May use the saline infusion to back flush IVPB tubing as needed., Use this order to document priming and flushing IV line after medication administration. sodium chloride 0.9% syringe 5-10 mL 5-10 mL, Intravenous, PRN, Starting on 06/21/23 at 0929, Until 06/21/23 at 1628, Line Care, Flush with 5 mL saline pre/post IVP, and 5 mL prior to IVPB or blood product administration. Protocol for PERIPHERAL IV saline lock maintenance, flush with 3-5 mL saline syringe every 8 hours., Flush peripheral lines every 12 hours, central lines every 8 hours, and after IV medication documented in this encounter Active and Recently Administered Medications Times are shown in EST. PRN Medication Order 06/19/2023 06/20/2023 06/21/2023 sodium chloride 0.9% IV line flush 50 mL 50 mL, Intravenous, at 999 mL/hr, PRN, Starting on 06/21/23 at 0929, Until 06/21/23 at 1628, Line Care, Flush with 50 mL after IVPB to insure complete administration of the dose. May use the saline infusion to back flush IVPB tubing as needed., Use this order to document priming and flushing IV line after medication administration. sodium chloride 0.9% syringe 5-10 mL 5-10 mL, Intravenous, PRN, Starting on 06/21/23 at 0929, Until 06/21/23 at 1628, Line Care, Flush with 5 mL saline pre/post IVP, and 5 mL prior to IVPB or blood product administration. Protocol for PERIPHERAL IV saline lock maintenance, flush with 3-5 mL saline syringe every 8 hours., Flush peripheral lines every 12 hours, central lines every 8 hours, and after IV medication documented in this encounter Orders Medications Ordered That Jair ht Not Have Been Administered Count Last Ordered Date First Ordered Date sodium chloride 0.9% IV line flush 50 mL 1 06/21/2023 sodium chloride 0.9% syringe 5-10 mL 1 05/2023 documented in this encounter Additional Health Concerns Infection Onset Date Last Indicated Resolved Time R/O COVID-19 06/21/2023 06/21/2023 06/21/2023 10:2 0 AM EST Assessment Noted Time PHQ-9 Depression Total Score: 2 10/07/19 18 8:00 AM EDT PHQ-2 Depression Total Score: 2 10/07/19 18 8:00 AM EDT documented as of this encounter Care Teams Senior Environmental Technician Relationship Specialty Start Date End Date Abdifatah Geiger MD [address] [place] [id number] PCP - General Family Medicine 07/17/22 08/25/23 Abdifatah Uriarte MD [address] [place] [address] [place] [address] Consulting Physician Obstetrics & Gynecology-Gynecologic Oncology 12/16/19 documented as of this encounter
--- OUTSIDE RECORDS SUMMARY | 2024-03-14 18:15 | XMS_ITS | Encounter Summary ---
Author Organization [place] [address] Care Team Providers Care Floor Runner Name Role Phone Abdifatah Uriarte MD Unavailable [phone] Abdifatah Geiger MD Primary Care Provider [phone] Reason for Visit * Reason Onset Date Comments Medication Refill 11/16/2022 Encounter Details Date Type Department Care Team (Late st Contact Info) Description 11/16/2022 Refill [facility] [place] [address] [place] [address] Migue Anne MD [address] [place] [address] Medication Refill Social History Tobacco Use Types [...] mouth daily. 90 Tablet 3 11/18/2022 10/24/2023 documented in this encounter Plan of Treatment Upcoming Encounters Date Type Department Care Team (Late st Contact Info) Description 04/24/2024 10:45 AM EST Clinical Support [facility] [address] [place] [phone] documented as of this encounter Goals Goal [...] Take 1 tablet by mouth once daily Reorder 08/19/2022 11/16/2022 documented as of this encounter Additional Health Concerns Assessment Noted Time PHQ-9 Depression Total Score: 2 10/07/19 18 8:00 AM EDT PHQ-2 Depression Total Score: 2 10/07/19 18 8:00 AM EDT documented as of this encounter Care Teams Floor Runner Relationship Specialty Start Date End Date Abdifatah Geiger MD [address] [place] [phone] PCP - General Family Medicine 07/17/22 08/25/23 Abdifatah Uriarte MD [address] [place] [address] [place] [address] Consulting Physician Obstetrics & Gynecology-Gynecologic Oncology 12/16/19 documented as of this encounter
--- OUTSIDE RECORDS SUMMARY | 2024-03-14 18:15 | XMS_ITS | Encounter Summary ---
Author Organization [place] [address] Care Team Providers Care Net Developer Consultant Name Role Phone Abdifatah Uriarte MD Unavailable [phone] Abdifatah Geiger MD Primary Care Provider [phone] Reason for Visit * Reason Onset Date Comments Medication Refill 12/13/2022 Encounter Details Date Type Department Care Team (Late st Contact Info) Description 12/13/[address] [facility] [address] [place] [phone] Misty Gillespie MD [address] [place] [address] Medication Refill Social History Tobacco Use Types [...] on file Sexual Orientation Not on file COVID-19 Exposure Response Date Recorded In the last 10 days, have louise spence been in contact with someone who was confirmed or suspected to have Coronavirus/COVID-19? No / Unsure 11/26/2022 7:19 PM EDT documented as of this encounter Ordered Prescriptions Prescription Sig Dispense Quantity Refills Last Filled Start Date End Date medroxyPROGESTERo ne (DEPO-PROVERA) 150 mg/mL IM SuspensionIndicat ions:Excessive and frequent menstruation INJECT ONE ML INTRAMUSCULARLY FOR 1 DOSE 1 mL 03/01/20 documented in this encounter Plan of Treatment Upcoming Encounters Date Type Department Care Team (Late st Contact Info) Description 04/24/2024 10:45 AM EST Clinical Support [facility] [address] [place] [address] documented as of this encounter Goals Goal Patient Goal Type Associated Problems Recent Progress Patient-Stated? Author Maintain a healthy diet, exercise regularly and maintain an ideal body weight General No Thea uRbio MD Stay Tobacco Free Lifestyle No Thea Rubio MD documented as of this encounter Visit Diagnoses Diagnosis Excessive and frequent menstruation Excessive or frequent menstruation documented in this encounter Discontinued Medications Medication Sig Discontinue Reason Start Date End Da te medroxyPROGESTERone (DEPO-PROVERA) 150 mg/mL IM SuspensionIndications :Excessive and frequent menstruation INJECT ONE ML INTRAMUSCULARLY FOR 1 DOSE Reorder 04/18/2022 12/13/2022 documented as of this encounter Additional Health Concerns Assessment Noted Time PHQ-9 Depression Total Score: 2 10/07/19 18 8:00 AM EDT PHQ-2 Depression Total Score: 2 10/07/19 18 8:00 AM EDT documented as of this encounter Care Teams Net Developer Consultant Relationship Specialty Start Date End Date Abdifatah Geiger MD [address] [facility] [place] [phone] PCP - General Family Medicine 07/17/22 08/25/23 Abdifatah Uriarte MD [address] [facility] [address] Consulting Physician Obstetrics & Gynecology-Gynecologic Oncology 12/16/19 documented as of this encounter
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
--- OUTSIDE RECORDS SUMMARY | 2024-03-14 18:15 | XMS_ITS | Encounter Summary ---
Author Organization [place] [address] Care Team Providers Care Wood Engraver Name Role Phone Abdifatah Uriarte MD Unavailable [phone] Abdifatah Geiger MD Primary Care Provider Reason for Referral * Mammography (Routine) - Pending Review Specialty Diagnoses / Procedures Referred By Contstephanie t Referred To Contact Radiology Diagnoses Encounter for screening mammogram for malignant neoplasm of breast Procedures MM MAMMO DIGITAL MADELEINE SCREEN Misty Mary MD [address] [place] [address] Phone: tel: fax: Referral ID Status Reason Start Date Expiration Date V isits Requested Visits Authorized [id number] Pending Review 06/17/2023 06/16/2025 1 1 Reason for Visit * Reason Comments Gynecologic Exam Encounter Details Date Type Department Care Team (Late st Contact Info) Description 06/17/2023 9:00 AM EST Office Visit [facility] [address] [place] [phone] Misty Gillespie MD [address] [place] [facility] Well woman exam with routine gynecological exam (Primary Dx); Encounter for screening mammogram for malignant neoplasm of breast Social History Tobacco Use Types Packs/Day Years [...] Sign Reading Time Taken Comments Blood Pressure 114/82 06/17/2023 8:39 AM EST Pulse - - Temperature - - Respiratory Rate - - Oxygen Saturation - - Inhaled Oxygen Concentration - - Weight 73.5 kg (162 lb) 06/17/2023 8:39 AM EST Height 164.5 cm (5' 4.75 ) 06/17/2023 8:39 AM ES T Body Mass Index 27.17 06/17/2023 8:39 AM EST documented in this encounter Progress Notes * Misty Gillespie MD - 06/17/2023 9:00 AM EST COMPOUND COATING MACHINE OFFBEARER ANNUAL EXAM HPI: Patient is a 43 y.o. female presenting for annual exam. Amenorrheic. Current contraception: Depo-Provera injections. No LMP recorded. Patient has had an injection. Mammo due next month. Past Medical History: Diagnosis Date Abnormal glandular [...] Amplatzer septal occluder CHOLECYSTECTOMY couple mos old. COLONOSCOPY 01/12/2018 Dr. Aaron Rocha, with [facility]. Normal colon UPPER GASTROINTESTINAL ENDOSCOPY 12/04/2017 at , Dr. Aaron Rocha Family History Problem Relation Age of Onset [...] Lung Cancer Maternal Grandfather Stroke Paternal Grandmother Social History Socioeconomic History Marital status: Spouse name: None Number of children: None Years of education: None Highest education level: None Tobacco Use Smoking status: Former Current packs/day: 0.00 Average packs/day: 0.5 packs/day for 0.2 years (0.1 ttl pk-yrs) Types: Cigarettes Start date: 02/07/1994 Quit date: 04/21/1994 Years since quittin.1 Smokeless tobacco: Never Vaping Use Vaping Use: Never used Substance and Sexual Activity Alcohol use: No [...] (Medical): No Lack of Transportation (Non-Medical): No Current Outpatient Medications: amLODIPine (NORVASC) 2.5 mg Oral Tablet, Take 1 Tablet by mouth daily., Disp: 90 Tablet, Rfl: 3 aspirin 81 mg Oral Tablet, Delayed Release (E.C.), TAKE ONE TABLET BY MOUTH DAILY, Disp: 90 Tab, Rfl: 2 medroxyPROGESTERone (DEPO-PROVERA) 150 mg/mL IM Suspension, INJECT ONE ML INTRAMUSCULARLY FOR 1 DOSE, Disp: 1 mL, Rfl: 0 metoprolol succinate (TOPROL-XL) 25 mg Oral Tablet Sustained Release 24 hr, Take 1 tablet by mouth once daily, Disp: 90 Tablet, Rfl: 1 medroxyPROGESTERone (DEPO-PROVERA) 150 mg/mL IM Syringe, INJECT 1 SYRINGE INTRAMUSCULARLY ONCE FOR 1 DOSE, Disp: 1 mL, Rfl: 0 Allergies Allergen Reactions Latex Rash Latex, Natural Rubber Rash Morphine Nausea And Vomiting Vicodin [Hydrocodone-Acetaminophen] Itching Metronidazole Rash PHYSICAL EXAM: BP 114/82 Ht 5' 4.75 (1.645 m) Wt 162 lb (73.5 kg) BMI 27.17 kg/m?? General appearance: alert, well appearing, and in no distress. Exam of extremities: peripheral pulses normal, no pedal edema, no clubbing or cyanosis Skin exam - normal coloration and turgor, no rashes, no suspicious skin lesions noted. Breast exam: breasts appear normal, no suspicious masses, no skin or nipple changes or axillary nodes. Abdominal exam: soft, nontender, nondistended, no masses or organomegaly. Pelvic exam: normal external genitalia, vulva, vagina, cervix, uterus and adnexa. Review of Systems - Pertinent items are noted in HPI Assessment: 43 y.o. female presenting for annual exam: 1. Well woman exam with routine gynecological exam [facility] COMPOUND COATING MACHINE OFFBEARER CYTOLOGY ORDER 2. Encounter for screening mammogram for malignant neoplasm of breast MM MAMMO DIGITAL MADELEINE SCREEN BILAT - RTO 1 year or prn Misty Gillespie MD documented in this encounter Plan of Treatment Upcoming Encounters Date Type Department Care Team (Late st Contact Info) Description 04/24/2024 10:45 AM EST Clinical Support [facility] [address] [place] [address] documented as of this encounter Goals Goal Patient Goal Type Associated Problems Recent Progress Patient-Stated? Author Maintain a healthy diet, exercise regularly and maintain an ideal body weight General No Thea Rubio MD Stay Tobacco Free Lifestyle No Thea Rubio MD documented as of this encounter Procedures Procedure Name Priority Date/Time Associated Diagnosis Comments COMPOUND COATING MACHINE OFFBEARER CYTOLOGY REQUEST (PAP ONLY) Routine 06/17/2023 9:36 AM EST Well woman exam with routine gynecological exam [facility] COMPOUND COATING MACHINE OFFBEARER CYTOLOGY ORDER Routine 06/17/2023 9:36 AM EST Well woman exam with routine gynecological exam HPV HIGH RISK Routine 06/17/2023 9:36 AM EST Well woman exam with routine gynecological exam documented in this encounter Results * MM MAMMO DIGITAL MADELEINE SCREEN BILAT (08/26/2023 7:37 AM EDT) Anatomical Region Laterality Modality Breast Bilateral Mammography 08/26/2023 7:54 AM EDT Impressions 08/26/2023 7:54 AM EDT Negative ??([id number]-2) ~ RECOMMENDATION: Routine screening mammogram in 1 [...] the next mammogram, in accordance with the [employer] and the Society of Breast Imaging recommendations. Narrative 08/26/2023 7:54 AM EDT Procedure:MM MAMMO DIGITAL MADELEINE SCREEN BILAT ~ Reason for exam: screening, asymptomatic. Z12.31-Encounter for screening mammogram for malignant neoplasm of nlvdse-FMN-57-CM ~ MM MAMMO DIGITAL MADELEINE SCREEN BILAT [...] for screening mammogram for malignant neoplasm of pmkpms-XTW-12-CM ~ MM MAMMO DIGITAL MADELEINE SCREEN BILAT Bilateral CC and MLO view(s) were taken. The breast tissue is heterogeneously dense. This may lower thesensitivity of mammography. Prior study comparison: Compared with prior studies the most recentbeing 07/10/22, 10/30/20 No mammographic evidence of malignancy. ~ IMPRESSION: Negative ([id number]-3) ~ RECOMMENDATION: Routine screening mammogram in 1 [...] the next mammogram, in accordance with the [employer] and the Society of Breast Imaging recommendations. Misty Gillespie MD IM MAMMOGRAPHY ORDERABLES Final Result * HPV HIGH RISK (06/17/2023 9:36 AM EST) HPV HR Not Detected Not Detected 06/18/2023 3:19 PM EST [facility] Thin Prep SPECIMEN FROM UTERINE CERVIX / Unknown 06/17/2023 9:36 AM EST 06/17/2023 9:36 AM EST Narrative [facility] - 06/18/2023 3:19 PM EST This test was performed using the FDA Approved APTIMA HPV mRNA assay which detects E6/E7 messenger RNA of High Risk HPV types (16, 18, 31, 33, 35, 39, 45, 51, 52, 56, 58, 59, 66, and 68).? This assay is intended for use in women 21 years or older with ASC-US cervical cytology or women 30 years or older. This assay is not intended to substitute for regular cervical cytology screening. Detection of HPV using the APTIMA HPV Assay does not differentiate HPV types and cannot evaluate persistence of any one type. The use of this assay has not been evaluated for the management of HPV vaccinated women, women with prior ablative or excisional therapy, hysterectomy, or who are . Sensitivities may be affected by collection methods, stage of infection, and the presence of interfering substances. Results of this assay should be interpreted in conjunction with other available laboratory and clinical data.?? us Misty Gillespie MD MICROBIOLOGY - GENERAL JOSE L [facility] Final Result [facility] [address] [facility] , [address] [place] [address] * COMPOUND COATING MACHINE OFFBEARER CYTOLOGY REQUEST (PAP ONLY) (06/17/2023 9:36 AM EST) CASE REPORT Gynecologic Cytology Report ? Case: [id number] ? Authorizing Provider: ??Misty Gillespie MD ? Collected: ? 06/17/2023 0936 ? [id number] ?Received: ?06/17/2023 0936 ? First Screen: ?Diego Raza, ? CT ? Specimen: ?LIQUID-BASED PAP - CERVICAL/ENDOCERV ICAL, Cervix, Endocervical ? 06/19/2023 11:44 AM EST [facility] CORRECTION HISTORY . 06/19/2023 11:44 AM EST [facility] PAP FINAL DIAGNOSIS Negative for intraepithelial lesion or malignancy 06/19/2023 11:44 AM EST [facility] OSCOPIC DESCRIPTION Microscopic examination is performed and the findings corroborate the diagnosis. 06/19/2023 11:44 AM EST [facility] PAP SMEAR ADEQUACY Satisfactory for evaluation 06/19/2023 11:44 AM EST [facility] ENDOCERVICAL T-ZONE Transformation zone present 06/19/2023 11:44 AM EST [facility] EMBEDDED IMAGES 11:44 AM EST [facility] PAP DISCLAIMER The Pap Smear is a screening test that aids in the detection of cervical cancer and cancer precursors. Both false positive and false negative results can occur. The test should be used at regular intervals, and positive results should be confirmed before definitive therapy. Processed using the ThinPrep Carriage Dogger Automated cytology screening device (T1 Visions). 06/19/2023 11:44 AM EST [facility] PAP OTHER FINDINGS Many acute inflammatory cells noted. 06/19/2023 11:44 AM EST [facility] Thin Prep ENDOCERVICAL STRUCTURE / Unknown 06/17/2023 9:36 AM EST 06/17/2023 9:36 AM EST us Misty Gillespie MD CYTOLOGY ORDERABLES Final R esult [facility] [address] [place] [address] documented in this encounter Visit Diagnoses Diagnosis Well woman exam with routine gynecological exam- Primary Routine gynecological examination Encounter for screening mammogram for malignant neoplasm of breast Other screening mammogram Encounter for screening mammogram for malignant neoplasm of breast Other screening mammogram documented in this encounter Additional Health Concerns Assessment Noted Time PHQ-9 Depression Total Score: 2 10/07/19 18 8:00 AM EDT PHQ-2 Depression Total Score: 2 10/07/19 18 8:00 AM EDT documented as of this encounter Care Teams Wood Engraver Relationship Specialty Start Date End Date Abdifatah Geiger MD [address] [facility] [phone] PCP - General Family Medicine 07/17/22 08/25/23 Abdifatah Uriarte MD [address] [facility] [place] [address] Consulting Physician Obstetrics & Gynecology-Gynecologic Oncology 12/16/19 documented as of this encounter
--- OUTSIDE RECORDS SUMMARY | 2024-03-14 18:15 | XMS_ITS | Encounter Summary ---
Author Organization [place] [address] Care Team Providers Care Cardiac Catheterization Technologist Name Role Phone Abdifatah Uriarte MD Unavailable [phone] Abdifatah Geiger MD Primary Care Provider [phone] Reason for Visit * Reason Onset Date Comments Medication Refill 12/15/2022 Encounter Details Date Type Department Care Team (Late st Contact Info) Description 12/15/2022 Refill [facility] [address] [place] [address] Migue Anne MD [address] [place] [address] Medication Refill Social History Tobacco Use Types [...] Sustained Release 24 hrIndications:Palp itations Take 1 Tablet by mouth daily. 30 Tablet 12/16/2022 01/05/2023 documented in this encounter Plan of Treatment Upcoming Encounters Date Type Department Care Team (Late st Contact Info) Description 04/24/2024 10:45 AM EST Clinical Support [facility] [address] [place] [address] documented as of this encounter [...] 1 tablet by mouth once daily Reorder 09/17/2022 12/15/2022 documented as of this encounter Additional Health Concerns Assessment Noted Time PHQ-9 Depression Total Score: 2 10/07/19 18 8:00 AM EDT PHQ-2 Depression Total Score: 2 10/07/19 18 8:00 AM EDT documented as of this encounter Care Teams Cardiac Catheterization Technologist Relationship Specialty Start Date End Date Abdifatah Geiger MD [address] [place] [address] PCP - General Family Medicine 07/17/22 08/25/23 Abdifatah Uriarte MD [address] [place] [address] [place] [address] Consulting Physician Obstetrics & Gynecology-Gynecologic Oncology 12/16/19 documented as of this encounter
--- OUTSIDE RECORDS SUMMARY | 2024-03-14 18:15 | XMS_ITS | Encounter Summary ---
Author Organization [place] [address] Care Team Providers Care Bulb Inspector Name Role Phone Thea Rubio MD Primary Care Provider [phone] Abdifatah Uriarte MD Unavailable [phone] Reason for Visit * Reason Comments Medication Refill Encounter Details Date Type Department Care Team (Late st Contact Info) Description 06/13/2022 Refill [facility] [place] [address] [place] [address] Migue Anne MD [address] [place] [address] Medication Refill Social History Tobacco Use Types [...] tablet by mouth once daily 90 Tablet 06/14/2022 09/17/2022 documented in this encounter Plan of Treatment Upcoming Encounters Date Type Department Care Team (Late st Contact Info) Description 04/24/2024 10:45 AM EST Clinical Support [facility] [address] [place] [address] documented as of this encounter Goals [...] Take 1 tablet by mouth once daily 03/12/2022 06/14/2022 documented as of this encounter Additional Health Concerns Assessment Noted Time PHQ-9 Depression Total Score: 2 10/07/19 18 8:00 AM EDT PHQ-2 Depression Total Score: 2 10/07/19 18 8:00 AM EDT documented as of this encounter Care Teams Bulb Inspector Relationship Specialty Start Date End Date Thea Rubio MD PCP - General Family Medicine 09/13/14 07/16/22 Abdifatah Uriarte MD [address] [place] [address] [place] [address] Consulting Physician Obstetrics & Gynecology-Gynecologic Oncology 12/16/19 documented as of this encounter
--- OUTSIDE RECORDS SUMMARY | 2024-03-14 18:15 | XMS_ITS | Encounter Summary ---
Author Organization [facility] [place] [address] Care Team Providers Care Motor Operator Name Role Phone Thea Rubio MD Primary Care Provider [phone] Abdifatah Uriarte MD Unavailable [phone] Encounter Details Date Type Department Care Team (Latest Contact Info) Description 07/10/2022 Travel Social History Tobacco Use Types Packs/Day [...] suspected to have Coronavirus/COVID-19? No / Unsure 07/10/2022 7:52 AM EDT documented as of this encounter Plan of Treatment Upcoming Encounters Date Type Department Care Team (Late st Contact Info) Description 04/24/2024 10:45 AM EST Clinical Support [facility] [address] [place] [address] documented as of this encounter [...] documented as of this encounter Care Teams Motor Operator Relationship Specialty Start Date End Date Thea Rubio MD PCP - General Family Medicine 09/13/14 07/16/22 Abdifatah Uriarte MD [address] [place] [address] [place] [address] Consulting Physician Obstetrics & Gynecology-Gynecologic Oncology 12/16/19 documented as of this encounter
--- OUTSIDE RECORDS SUMMARY | 2024-03-14 18:15 | XMS_ITS | Encounter Summary ---
Author Organization [place] [address] Care Team Providers Care Administrative Representative Name Role Phone Abdifatah Uriarte MD Unavailable [phone] Abdifatah Geiger MD Primary Care Provider [phone] Encounter Details Date Type Department Care Team (Latest Contact Info) Description 12/17/2022 3:38 PM EDT - 12/17/2022 11:59 PM EDT Hospital Encounter G[facility] XRAY [address] [place] [address] Cervical pain (neck) Discharge Disposition: Home or Self Care Social [...] PM EDT documented as of this encounter Medications at Time of Discharge aspirin 81 mg Oral Tablet, Delayed Release (E.C.)Indications :ASD (atrial septal defect),H/O Amplatzer atrial septal defect closure TAKE ONE TABLET BY MOUTH DAILY 90 Tab 2 03/20/2020 amLODIPine (NORVASC) 2.5 mg Oral Tablet Take 1 Tablet by mouth daily. 90 Tablet 3 11/18/2022 10/24/2023 methocarbamoL (ROBAXIN) 500 mg Oral TabletIndications :Cervical pain (neck) Take 1 Tablet by mouth 4 times daily as needed for Muscle spasms for up to 7 days. 28 Tablet 12/17/2022 12/24/2022 documented as of this encounter Discharge Disposition Disposition Code Departure Means Destination Home or Self Care documented in this encounter Plan of Treatment Upcoming Encounters Date Type Department Care Team (Late st Contact Info) Description 04/24/2024 10:45 AM EST [facility] Support [facility] [address] [place] [address] documented as of this encounter Goals Goal Patient Goal Type Associated Problems Recent Progress Patient-Stated? Author Maintain a healthy diet, exercise regularly and maintain an ideal body weight General No Thea Rubio MD Stay Tobacco Free Lifestyle No Thea Rubio MD documented as of this encounter Procedures Procedure Name Priority Date/Time Associated Diagnosis Comments XR CERVICAL SPINE AP LATERAL AND ODONTOID Routine 12/17/2022 3:53 PM EDT Cervical pain (neck) documented in this encounter Results * XR CERVICAL SPINE AP LATERAL AND [...] ODONTOID C-SPINE, ??12/17/2022 3:53 PM CLINICAL HISTORY: ??M54.4-[id number] COMPARISON: ??07/16/2018 PROCEDURE COMMENTS: AP, lateral, and odontoid views of the cervical spine. FINDINGS: No fracture or malalignment. Soft tissues unremarkable. Minimal degenerative change with minimal disc space narrowing C5-C6 and minimal facet disease stable from prior Procedure Note Abdifatah Flores MD - 12/17/2022 AP, LATERAL, AND ODONTOID C-SPINE, 12/17/2022 3:53 PM CLINICAL HISTORY: M54.0-[id number] COMPARISON: 07/16/2018 PROCEDURE COMMENTS: AP, lateral, and [...] contactthe office of the ordering clinician. Michelle Robert GEAR TESTER IMG DIAGNOSTIC IMAGING ORDERABLES Final Result documented in this encounter Visit Diagnoses Diagnosis Cervical pain (neck) Cervicalgia documented in this encounter Additional Health Concerns Assessment Noted Time PHQ-9 Depression Total Score: 2 10/07/19 18 8:00 AM EDT PHQ-2 Depression Total Score: 2 10/07/19 18 8:00 AM EDT documented as of this encounter Care Teams Administrative Representative Relationship Specialty Start Date End Date Abdifatah Geiger MD [facility] [place] [phone] PCP - General Family Medicine 07/17/22 08/25/23 Abdifatah Uriarte MD [address] [place] [address] [place] [address] Consulting Physician Obstetrics & Gynecology-Gynecologic Oncology 12/16/19 documented as of this encounter
--- OUTSIDE RECORDS SUMMARY | 2024-03-14 18:15 | XMS_ITS | Encounter Summary ---
Author Organization [place] [address] Care Team Providers Care Media Marketing Specialist Name Role Phone Abdifatah Uriarte MD Unavailable [phone] Abdifatah Geiger MD Primary Care Provider [phone] Reason for Visit * Reason Onset Date Comments Medication Refill 09/14/2022 Encounter Details Date Type Department Care Team (Late st Contact Info) Description 09/14/2022 Refill [facility] H&[facility] [place] [address] [place] [address] Migue Anne MD [address] [place] [address] Medication Refill Social History Tobacco Use Types [...] 04/24/2024 10:45 AM EST Clinical Support [facility] [address] [place] [address] documented as of this encounter Goals Goal Patient Goal Type Associated Problems Recent Progress Patient-Stated? Author Maintain a healthy diet, exercise regularly and maintain an ideal body weight General No Thea Rubio MD Stay Tobacco Free Lifestyle No Thea Rubio MD documented as of this encounter Visit Diagnoses Diagnosis Palpitations documented in this encounter Additional Health Concerns Assessment Noted Time PHQ-9 Depression Total Score: 2 10/07/19 18 8:00 AM EDT PHQ-2 Depression Total Score: 2 10/07/19 18 8:00 AM EDT documented as of this encounter Care Teams Media Marketing Specialist Relationship Specialty Start Date End Date Abdifatah Geiger MD [address] [place] [phone] PCP - General Family Medicine 07/17/22 08/25/23 Abdifatah Uriarte MD [address] [place] [address] [place] [address] Consulting Physician Obstetrics & Gynecology-Gynecologic Oncology 12/16/19 documented as of this encounter
--- OUTSIDE RECORDS SUMMARY | 2024-03-14 18:15 | XMS_ITS | Encounter Summary ---
Author Organization [place] [address] Care Team Providers Care Web Developer Name Role Phone Abdifatah Uriarte MD Unavailable [phone] Abdifatah Geiger MD Primary Care Provider [phone] Reason for Visit * Reason Comments Medication Refill Encounter Details Date Type Department Care Team (Late st Contact Info) Description 09/14/2022 Refill [facility] [place] [address] [place] [address] Migue Anne MD [address] [place] [address] Medication Refill Social History Tobacco Use Types [...] tablet by mouth once daily 90 Tablet 09/17/2022 12/15/2022 documented in this encounter Plan of Treatment Upcoming Encounters Date Type Department Care Team (Late st Contact Info) Description 04/24/2024 10:45 AM EST Clinical Support [facility] 100 [facility] [place] [address] documented as of this encounter [...] Take 1 tablet by mouth once daily 06/14/2022 09/17/2022 documented as of this encounter Additional Health Concerns Assessment Noted Time PHQ-9 Depression Total Score: 2 10/07/19 18 8:00 AM EDT PHQ-2 Depression Total Score: 2 10/07/19 18 8:00 AM EDT documented as of this encounter Care Teams Web Developer Relationship Specialty Start Date End Date Abdifatah Geiger MD [address] [place] [phone] PCP - General Family Medicine 07/17/22 08/25/23 Abdifatah Uriarte MD [address] [place] [address] [place] [address] Consulting Physician Obstetrics & Gynecology-Gynecologic Oncology 12/16/19 documented as of this encounter
--- OUTSIDE RECORDS SUMMARY | 2024-03-14 18:15 | XMS_ITS | Encounter Summary ---
Author Organization [place] [address] Care Team Providers Care Carver And Checkerer Specials Name Role Phone Thea Rubio MD Primary Care Provider [phone] Abdifatah Uriarte MD Unavailable [phone] Reason for Visit * Reason Comments Injections Dep-Provera Encounter Details Date Type Department Care Team (Latest Contact Info) Description 07/10/2022 9:00 AM EDT Clinical Support [facility] [address] [place] [phone] Sadaf Cobian, [facility] [address] [facility] [address] [place] [address] Excessive and frequent menstruation (Primary Dx) Social [...] 04/24/2024 10:45 AM EST Clinical Support [facility] [address] [place] [address] documented as of this encounter [...] 150 mg, Intramuscular, ONCE, 1 dose, On Fri07/10/22 at 0945, Dx: 1. Excessive and frequent menstruationIndications:Exce ssive and frequent menstruation Given 07/10/2022 9:38 AM EDT 150 mg Left Deltoid documented in this encounter Additional Health Concerns Assessment Noted Time PHQ-9 Depression Total Score: 2 10/07/19 18 8:00 AM EDT PHQ-2 Depression Total Score: 2 10/07/19 18 8:00 AM EDT documented as of this encounter Care Teams Carver And Checkerer Specials Relationship Specialty Start Date End Date Thea Rubio MD PCP - General Family Medicine 09/13/14 07/16/22 Abdifatah Uriarte MD [address] [place] [address] [place] [address] Consulting Physician Obstetrics & Gynecology-Gynecologic Oncology 12/16/19 documented as of this encounter
--- OUTSIDE RECORDS SUMMARY | 2024-03-14 18:15 | XMS_ITS | Encounter Summary ---
Author Organization [place] [address] Care Team Providers Care Physical Damage Appraiser Name Role Phone Abdifatah Uriarte MD Unavailable [phone] Abdifatah Geiger MD Primary Care Provider [phone] Reason for Visit * Reason Onset Date Comments Medication Refill 03/01/2023 Encounter Details Date Type Department Care Team (Late st Contact Info) Description 03/01/2023 Refill [facility] [address] [place] [phone] Misty Gillespie MD [address] [place] [address] Medication Refill Social History Tobacco Use Types [...] ML INTRAMUSCULARLY FOR 1 DOSE 1 mL 3 05/26/19 24 documented in this encounter Miscellaneous Notes * Telephone Encounter - Daniela Portillo MA - 03/03/2023 7:19 AM EST Approved documented in this encounter Plan of Treatment Upcoming Encounters Date Type Department Care Team (Late st Contact Info) Description 04/24/2024 10:45 AM EST Clinical Support [facility] [address] [place] [address] documented as of this encounter [...] ONE ML INTRAMUSCULARLY FOR 1 DOSE Reorder 12/13/2022 03/01/2023 documented as of this encounter Additional Health Concerns Assessment Noted Time PHQ-9 Depression Total Score: 2 10/07/19 18 8:00 AM EDT PHQ-2 Depression Total Score: 2 10/07/19 18 8:00 AM EDT documented as of this encounter Care Teams Physical Damage Appraiser Relationship Specialty Start Date End Date Abdifatah Geiger MD [place] [address] PCP - General Family Medicine 07/17/22 08/25/23 Abdifatah Uriarte MD 1 [facility] CANCER [place] [phone] Consulting Physician Obstetrics & Gynecology-Gynecologic Oncology 12/16/19 documented as of this encounter
--- OUTSIDE RECORDS SUMMARY | 2024-03-14 18:15 | XMS_ITS | Encounter Summary ---
Author Organization [place] [address] Care Team Providers Care Auto Body Repair Estimator Name Role Phone Thea Rubio MD Primary Care Provider [phone] Abdifatah Uriarte MD Unavailable [phone] Reason for Referral * Mammography (Routine) - Pending Review Specialty Diagnoses / Procedures Referred By Amalia tuttle Referred To Contact Radiology Diagnoses Breast cancer screening by mammogram Procedures MM MAMMO DIGITAL MADELEINE SCREEN Misty Mary MD [address] [place] [address] Phone: tel: fax: Referral ID Status Reason Start Date Expiration Date V isits Requested Visits Authorized [id number] Pending Review 06/04/2022 06/03/2024 1 1 Reason for Visit * Mammography (Routine) - Pending Review Specialty Diagnoses / Procedures Referred By Amalia tuttle Referred To Contact Radiology Diagnoses Breast cancer screening by mammogram Procedures MM MAMMO DIGITAL MADELEINE SCREEN Misty Mary MD [address] [place] [address] Phone: tel: fax: Referral ID Status Reason Start Date Expiration Date V isits Requested Visits Authorized [id number] Pending Review 06/04/2022 06/03/2024 1 1 Encounter Details Date Type Department Care Team (Late st Contact Info) Description 07/10/2022 7:54 AM EDT - 07/10/2022 11:59 PM EDT Hospital Encounter [facility] [address] [place] [address] Misty Gillespie MD [address] [place] [address] Breast cancer screening by mammogram Discharge Disposition: Home or Self Care Social [...] AM EDT documented as of this encounter Medications at Time of Discharge aspirin 81 mg Oral Tablet, Delayed Release (E.C.)Indications :ASD (atrial septal defect),H/O Amplatzer atrial septal defect closure TAKE ONE TABLET BY MOUTH DAILY 90 Tab 2 03/20/2020 amLODIPine (NORVASC) 2.5 mg Oral Tablet Take 1 tablet by mouth once daily 90 Tablet 05/20/2022 08/19/2022 metoprolol succinate (TOPROL-XL) 25 mg Oral Tablet Sustained Release 24 hrIndications:Pal pitations Take 1 tablet by mouth once daily 90 Tablet 06/14/2022 09/17/2022 documented as of this encounter Discharge Disposition Disposition Code Departure Means Destination Home or Self Care documented in this encounter Plan of Treatment Upcoming Encounters Date Type Department Care Team (Late st Contact Info) Description 04/24/2024 10:45 AM EST Clinical Support [facility] [address] [place] [address] documented as of this encounter Goals Goal Patient Goal Type Associated Problems Recent Progress Patient-Stated? Author Maintain a healthy diet, exercise regularly and maintain an ideal body weight General No Thea Rubio MD Stay Tobacco Free Lifestyle No Thea Rubio MD documented as of this encounter Procedures Procedure Name Priority Date/Time Associated Diagnosis Comments MM MAMMO DIGITAL MADELEINE SCREEN BILAT Routine 07/10/2022 8:14 AM EDT Breast cancer screening by mammogram documented in this encounter Results * MM MAMMO DIGITAL MADELEINE SCREEN BILAT (07/10/2022 8:14 AM EDT) Anatomical Region Laterality Modality Breast Bilateral Mammography 07/10/2022 9:09 AM EDT Impressions 07/10/2022 9:09 AM EDT Negative ??([id number]) ~ RECOMMENDATION: Routine screening mammogram in 1 [...] the next mammogram, in accordance with the [employer] and the Society of Breast Imaging recommendations. Narrative 07/10/2022 9:09 AM EDT Procedure:MM MAMMO DIGITAL MADELEINE SCREEN BILAT ~ Reason for exam: screening, asymptomatic. Z12.31-Encounter for screening mammogram for malignant neoplasm of [id number] ~ MM MAMMO DIGITAL MADELEINE SCREEN BILAT Bilateral CC and MLO view(s) were taken. Technologist: Svetlana Sinclair, RT The breast tissue is heterogeneously dense. ??This may lower the sensitivity of mammography. Prior study comparison: Compared with prior studies the most recent being 10/30/20, 10/07/19 No suspicious mass, architectural distortion, or microcalcifications. No mammographic evidence of malignancy. ~ Procedure Note Ruel Maurice MD - 07/10/2022 Procedure:MM MAMMO DIGITAL MADELEINE SCREEN BILAT ~ Reason for exam: screening, asymptomatic. Z12.31-Encounter for screening mammogram for malignant neoplasm of [id number]-CM ~ MM MAMMO DIGITAL MADELEINE SCREEN BILAT Bilateral CC and MLO view(s) were taken. Technologist: Svetlana Sinclair RT The breast tissue is heterogeneously dense. This may lower thesensitivity of mammography. Prior study comparison: Compared with prior studies the most recentbeing 10/30/20, 10/07/19 No suspicious mass, architectural distortion, or microcalcifications. No mammographic evidence of malignancy. ~ IMPRESSION: Negative ([id number]) ~ RECOMMENDATION: Routine screening mammogram in 1 [...] the next mammogram, in accordance with the [employer] and the Society of Breast Imaging recommendations. Misty Gillespie MD [facility] MAMMOGRAPHY ORDERABLES Final Result documented in this encounter Visit Diagnoses Diagnosis Breast cancer screening by mammogram documented in this encounter Additional Health Concerns Assessment Noted Time PHQ-9 Depression Total Score: 2 10/07/19 18 8:00 AM EDT PHQ-2 Depression Total Score: 2 10/07/19 18 8:00 AM EDT documented as of this encounter Care Teams Auto Body Repair Estimator Relationship Specialty Start Date End Date Thea Rubio MD PCP - General Family Medicine 09/13/14 07/16/22 Abdifatah Uriarte MD 1 [facility] [place] [address] Consulting Physician Obstetrics & Gynecology-Gynecologic Oncology 12/16/19 documented as of this encounter
--- OUTSIDE RECORDS SUMMARY | 2024-03-14 18:15 | XMS_ITS | Encounter Summary ---
Author Organization [place] [address] Care Team Providers Care Infertility Nurse Name Role Phone Abdifatah Uriarte MD Unavailable [phone] Abdifatah Geiger MD Primary Care Provider [phone] Reason for Visit * Reason Comments Medication Refill Encounter Details Date Type Department Care Team (Late st Contact Info) Description 08/17/2022 Refill [facility] [place] [address] [place] [address] Migue Anne MD [address] [place] [address] Medication Refill Social History Tobacco Use Types [...] tablet by mouth once daily 90 Tablet 08/19/2022 11/16/2022 documented in this encounter Plan of Treatment Upcoming Encounters Date Type Department Care Team (Late st Contact Info) Description 04/24/2024 10:45 AM EST Clinical Support [facility] [address] [place] [phone] documented as of this encounter Goals Goal [...] Take 1 tablet by mouth once daily 05/20/2022 08/19/2022 documented as of this encounter Additional Health Concerns Assessment Noted Time PHQ-9 Depression Total Score: 2 10/07/19 18 8:00 AM EDT PHQ-2 Depression Total Score: 2 10/07/19 18 8:00 AM EDT documented as of this encounter Care Teams Infertility Nurse Relationship Specialty Start Date End Date Abdifatah Geiger MD [address] [place] [phone] PCP - General Family Medicine 07/17/22 08/25/23 Abdifatah Uriarte MD [address] [place] [address] [place] [address] Consulting Physician Obstetrics & Gynecology-Gynecologic Oncology 12/16/19 documented as of this encounter
--- OUTSIDE RECORDS SUMMARY | 2024-03-14 18:15 | XMS_ITS | Encounter Summary ---
Author Organization [place] [address] Care Team Providers Care Computer Game Programmer Name Role Phone Abdifatah Uriarte MD Unavailable [phone] Abdifatah Geiger MD Primary Care Provider [phone] Reason for Referral * Echo (Routine) - Closed Specialty Diagnoses / Procedures Referred By Contac t Referred To Contact Radiology Diagnoses ASD (atrial septal defect) Palpitations Chest discomfort Procedures EC ECHOCARDIOGRAM COMPLETE W DOPPLER AND COLOR FLOW MAPPING Migue Anne MD [address] [place] [address] Phone: tel: fax: Referral ID Status Reason Start Date Expiration Date Visits Re quested Visits Authorized [id number] Closed 12/17/2022 12/16/2024 1 1 Reason for Visit * Echo (Routine) - Closed Specialty Diagnoses / Procedures Referred By Contac t Referred To Contact Radiology Diagnoses ASD (atrial septal defect) Palpitations Chest discomfort Procedures EC ECHOCARDIOGRAM COMPLETE W DOPPLER AND COLOR FLOW MAPPING Migue Anne MD [address] [place] [address] Phone: tel: fax: Referral ID Status Reason Start Date Expiration Date Visits Re quested Visits Authorized [id number] Closed 12/17/2022 12/16/2024 1 1 Encounter Details Date Type Department Care Team (Latest Contact Info) Description 06/17/2023 7:08 AM EST - 06/17/2023 11:59 PM [facility] [[email or web address] Hospital Encounter [facility] ECHO [address] [place] [address] Migue Anne MD [address] [facility] [place] [id number] ASD (atrial septal defect); Palpitations; Chest discomfort Discharge Disposition: Home or Self Care Social [...] on file documented as of this encounter Medications at [...] Clinical Support [facility] [address] [place] [address] documented as of this encounter Goals Goal Patient Goal Type Associated Problems Recent Progress Patient-Stated? Author Maintain a healthy diet, exercise regularly and maintain an ideal body weight General No Thea Rubio MD Stay Tobacco Free Lifestyle No Thea Rubio MD documented as of this encounter Procedures Procedure Name Priority Date/Time Associated Diagnosis Comments EC ECHOCARDIOGRAM COMPLETE W DOPPLER AND COLOR FLOW MAPPING Routine 06/17/2023 7:58 AM EST ASD (atrial septal defect) Palpitations Chest discomfort documented in this encounter Results * EC ECHOCARDIOGRAM COMPLETE W DOPPLER AND COLOR FLOW MAPPING (06/17/2023 7:58 AM EST) Ejection Fraction 60-65% PYRAMIS MITRAL REGURGITATION no PYRAMIS AORTIC STENOSIS no PYRAMIS LV DIASTOLIC PLAX 4.4 cm PYRAMIS Anatomical Region Laterality Modality Electrocardiogra phy 06/17/2023 7:12 AM EST Impressions 06/17/2023 11:45 AM EST Conclusions ??* Left ventricular chamber dimension is normal. ??* Left ventricular function is normal with an estimated ejection fraction of 60-65%. ??* Left ventricular segmental wall motion is normal. ??* There is no increased left ventricular wall thickness. ??* Right ventricular chamber dimension is normal. ??* Right ventricular systolic function is normal. ??* Atrial septal defect occluder visualized without evidence of interatrial shunting. Narrative Procedure Note Migue Anne MD - 06/17/2023 IMPRESSION Conclusions * Left ventricular chamber dimension is normal. * Left ventricular function is normal with an estimated ejectionfraction of 60-65%. * Left ventricular segmental wall motion is normal. * There is no increased left ventricular wall thickness. * Right ventricular chamber dimension is normal. * Right ventricular systolic function is normal. * Atrial septal defect occluder visualized without evidence ofinteratrial shunting. us Migue Anne MD IMG ECHO ORDERABLES Fin al Result documented in this encounter Visit Diagnoses Diagnosis ASD (atrial septal defect) Ostium secundum type atrial septal defect Palpitations Chest discomfort Other chest pain documented in this encounter Additional Health Concerns Assessment Noted Time PHQ-9 Depression Total Score: 2 10/07/19 18 8:00 AM EDT PHQ-2 Depression Total Score: 2 10/07/19 18 8:00 AM EDT documented as of this encounter Care Teams Computer Game Programmer Relationship Specialty Start Date End Date Abdifatah Geiger MD [address] [place] [phone] PCP - General Family Medicine 07/17/22 08/25/23 Abdifatah Uriarte MD [address] [place] [address] [place] [address] Consulting Physician Obstetrics & Gynecology-Gynecologic Oncology 12/16/19 documented as of this encounter
--- OUTSIDE RECORDS SUMMARY | 2024-03-14 18:15 | XMS_ITS | Encounter Summary ---
Author Organization [place] [address] Care Team Providers Care Cement Breaker Name Role Phone Abdifatah Uriarte MD Unavailable [phone] Abdifatah Geiger MD Primary Care Provider [phone] Reason for Visit * Reason Onset Date Comments Medication Refill 05/26/2023 Encounter Details Date Type Department Care Team (Late st Contact Info) Description 05/26/2023 Refill [facility] [address] [place] [phone] Misty Gillespie MD [address] [place] [address] Medication Refill Social History Tobacco Use Types [...] ML INTRAMUSCULARLY FOR 1 DOSE 1 mL 08/19/19 24 documented in this encounter Miscellaneous Notes * Telephone Encounter - Elba Hernandez RMA - 05/27/2023 9:52 AM EST Ordered. Annual scheduled. documented in this encounter Plan of Treatment Upcoming Encounters Date Type Department Care Team (Late st Contact Info) Description 04/24/2024 10:45 AM EST Clinical Support [facility] [address] [place] [address] documented as of this encounter [...] ONE ML INTRAMUSCULARLY FOR 1 DOSE Reorder 03/03/2023 05/26/2023 documented as of this encounter Additional Health Concerns Assessment Noted Time PHQ-9 Depression Total Score: 2 10/07/19 18 8:00 AM EDT PHQ-2 Depression Total Score: 2 10/07/19 18 8:00 AM EDT documented as of this encounter Care Teams Cement Breaker Relationship Specialty Start Date End Date Abdifatah Geiger MD [address] [place] [phone] PCP - General Family Medicine 07/17/22 08/25/23 Abdifatah Uriarte MD [address] [facility] [place] [address] Consulting Physician Obstetrics & Gynecology-Gynecologic Oncology 12/16/19 documented as of this encounter
--- OUTSIDE RECORDS SUMMARY | 2024-03-14 18:15 | XMS_ITS | Encounter Summary ---
Author Organization [place] [address] Care Team Providers Care Personnel Interviewer Name Role Phone Abdifatah Uriarte MD Unavailable [phone] Abdifatah Geiger MD Primary Care Provider [phone] Reason for Visit * Reason Comments Injections Encounter Details Date Type Department Care Team (Latest Contact Info) Description 03/07/2023 9:00 AM EST Clinical Support [facility] [address] [place] [phone] La Flynn MA Excessive and frequent [...] Clinical Support [facility] [address] [facility] [place] [address] documented as of this encounter Goals [...] 150 mg, Intramuscular, ONCE, 1 dose, On Fri03/07/23 at 0815, Dx: 1. Excessive and frequent menstruationIndications:Exce ssive and frequent menstruation Given 03/07/2023 8:04 AM EST 150 mg Left Deltoid documented in this encounter Orders Medications Ordered That Jair ht Not Have Been Administered Count Last Ordered Date First Ordered Date medroxyPROGESTERone (DEPO-LA OVERA) injection 150 mg 1 03/07/2023 documented in this encounter Additional Health Concerns Assessment Noted Time PHQ-9 Depression Total Score: 2 10/07/19 18 8:00 AM EDT PHQ-2 Depression Total Score: 2 10/07/19 18 8:00 AM EDT documented as of this encounter Care Teams Personnel Interviewer Relationship Specialty Start Date End Date Abdifatah Geiger MD [address] [place] [phone] PCP - General Family Medicine 07/17/22 08/25/23 Abdifatah Uriarte MD [address] [place] [address] [place] [address] Consulting Physician Obstetrics & Gynecology-Gynecologic Oncology 12/16/19 documented as of this encounter
--- OUTSIDE RECORDS SUMMARY | 2024-03-14 18:15 | XMS_ITS | Encounter Summary ---
Author Organization [place] [address] Care Team Providers Care Finish Rolls Operator Name Role Phone Abdifatah Uriarte MD Unavailable [phone] Abdifatah Geiger MD Primary Care Provider [phone] Reason for Visit * Reason Comments Injections Encounter Details Date Type Department Care Team (Latest Contact Info) Description 06/04/2023 3:00 PM EST Clinical Support [facility] [address] [place] [phone] La Flynn MA Excessive and frequent [...] Clinical [facility] [place] [address] documented as of this encounter Goals [...] 150 mg, Intramuscular, ONCE, 1 dose, On Fri06/04/23 at 1515, Dx: 1. Excessive and frequent menstruationIndications:Exce ssive and frequent menstruation Given 06/04/2023 3:10 PM EST 150 mg Left Deltoid documented in this encounter Additional Health Concerns Assessment Noted Time PHQ-9 Depression Total Score: 2 10/07/19 18 8:00 AM EDT PHQ-2 Depression Total Score: 2 10/07/19 18 8:00 AM EDT documented as of this encounter Care Teams Finish Rolls Operator Relationship Specialty Start Date End Date Abdifatah Geiger MD [address] [place] [phone] PCP - General Family Medicine 07/17/22 08/25/23 Abdifatah Uriarte MD 1 [facility] [place] [address] Consulting Physician Obstetrics & Gynecology-Gynecologic Oncology 12/16/19 documented as of this encounter
--- OUTSIDE RECORDS SUMMARY | 2024-03-14 18:15 | XMS_ITS | Encounter Summary ---
Author Organization [place] [address] Care Team Providers Care Air Hose Coupler Name Role Phone Abdifatah Uriarte MD Unavailable [phone] Abdifatah Geiger MD Primary Care Provider [phone] Encounter Details Date Type Department Care Team (Late st Contact Info) Description 09/18/2022 [facility] Only [facility] [address] [place] [address] Abdifatah Geiger MD [address] [place] [address] Social History Tobacco Use Types Packs/Day Years [...] Refills Last Filled Start Date End Date fluticasone propionate (FLONASE) 50 mcg/actuation Nasl Golden, Suspension 1 Golden by Nasal route 2 times daily for 30 days. 1 Each 2 09/18/2022 3 methylPREDNISolon e (MEDROL DOSPACK) 4 mg Oral Tablets, Dose Pack See package instructions 21 Tablet 09/18/2022 3 documented in this encounter Plan of Treatment Upcoming Encounters Date Type Department Care Team (Late st Contact Info) Description 04/24/2024 10:45 AM EST Clinical Support [facility] [address] [place] [address] documented as of this encounter [...] documented as of this encounter Care Teams Air Hose Coupler Relationship Specialty Start Date End Date Abdifatah Geiger MD [address] [place] [phone] PCP - General Family Medicine 07/17/22 08/25/23 Abdifatah Uriarte MD [address] [place] [address] [place] [address] Consulting Physician Obstetrics & Gynecology-Gynecologic Oncology 12/16/19 documented as of this encounter
--- OUTSIDE RECORDS SUMMARY | 2024-03-14 18:15 | XMS_ITS | Encounter Summary ---
Author Organization [place] [address] Care Team Providers Care Management Instructor Name Role Phone Abdifatah Uriarte MD Unavailable [phone] Abdifatah Geiger MD Primary Care Provider [phone] Reason for Visit * Reason Comments Injections Depo-Provera Encounter Details Date Type Department Care Team (Latest Contact Info) Description 10/01/2022 9:00 AM EDT Clinical Support [facility] [place] [id number] [place] [phone] Sadaf Cobian Michelle, REPLACED BY [facility] [address] [facility] [address] [place] [address] Excessive and frequent menstruation (Primary Dx) Social [...] 04/24/2024 10:45 AM EST Clinical Support [facility] [address] [place] [address] documented as of this encounter [...] 150 mg, Intramuscular, ONCE, 1 dose, On Fri10/01/22 at 0815, Dx: 1. Excessive and frequent menstruationIndications:Exce ssive and frequent menstruation Given 10/01/2022 8:04 AM EDT 150 mg Left Deltoid documented in this encounter Additional Health Concerns Assessment Noted Time PHQ-9 Depression Total Score: 2 10/07/19 18 8:00 AM EDT PHQ-2 Depression Total Score: 2 10/07/19 18 8:00 AM EDT documented as of this encounter Care Teams Management Instructor Relationship Specialty Start Date End Date Abdifatah Geiger MD [address] [place] [phone] PCP - General Family Medicine 07/17/22 08/25/23 Abdifatah Uriarte MD [address] [place] [address] [place] [address] Consulting Physician Obstetrics & Gynecology-Gynecologic Oncology 12/16/19 documented as of this encounter
--- OUTSIDE RECORDS SUMMARY | 2024-03-14 18:15 | XMS_ITS | Encounter Summary ---
Author Organization [place] [address] Care Team Providers Care Art Preparator Name Role Phone Abdifatah Uriarte MD Unavailable [phone] Abdifatah Geiger MD Primary Care Provider [phone] Reason for Visit * Reason Comments Dental Pain Abscess that started yesterday Encounter Details Date Type Department Care Team (Late st Contact Info) Description 11/26/2022 7:29 PM EDT - 11/26/2022 8:12 PM EDT Emergency [facility] [address] [facility] [place], [place] [id number] Pamela Brown MD [address] [facility] [place] [address] Dental infection (Primary Dx) Discharge Disposition: Home or Self [...] Sign Reading Time Taken Comments Blood Pressure 143/81 11/26/2022 7:32 PM EDT Pulse 70 11/26/2022 7:22 PM EDT Temperature 36.6 ??C (97.9 ??F) 11/26/2022 7:22 PM ED T Respiratory Rate 16 11/26/2022 7:22 PM EDT Oxygen Saturation 100% 11/26/2022 7:22 PM EDT Inhaled Oxygen Concentration - - Weight - - Height - - Body Mass Index - - documented in this encounter Discharge Instructions * Discharge Instructions* Lauren Crook APRN - 11/26/2022 7:45 PM EDT Warm salt water rinse four times a day and after eating. Take antibiotics as directed until completed. Percocet as needed for severe pain. Do not drive or drink alcohol with this medication as this is sedating. Follow-up with your oral surgeon as scheduled next week. Return if worse, fever, difficult swallowing or increasing swelling. * Attachments The following attachments cannot be sent through Care Everywhere. * DENTAL PAIN ED ([facility]) documented in this encounter Medications at Time of Discharge aspirin 81 mg Oral Tablet, Delayed Release (E.C.)Indications :ASD (atrial septal defect),H/O Amplatzer atrial septal defect closure TAKE ONE TABLET BY MOUTH DAILY 90 Tab 2 03/20/2020 amLODIPine (NORVASC) 2.5 mg Oral Tablet Take 1 Tablet by mouth daily. 90 Tablet 3 11/18/2022 10/24/2023 oxyCODONE-acetami nophen (PERCOCET) 5-325 mg Oral Tablet Take 1 Tablet by mouth every 6 hours as needed for Acute Pain (R52) for up to 3 days. 12 Tablet 11/26/2022 11/29/2022 penicillin v potassium (VEETID) 500 mg Oral Tablet Take 1 Tablet by mouth 4 times daily for 7 days. 28 Tablet 11/26/2022 12/03/2022 documented as of this encounter Ordered Prescriptions Prescription Sig Dispense Quantity Refills Last Filled Start Date End Date oxyCODONE-acetamin ophen (PERCOCET) 5-325 mg Oral Tablet Take 1 Tablet by mouth every 6 hours as needed for Acute Pain (R52) for up to 3 days. 12 Tablet 11/26/2022 11/29/2022 penicillin v potassium (VEETID) 500 mg Oral Tablet Take 1 Tablet by mouth 4 times daily for 7 days. 28 Tablet 11/26/2022 12/03/2022 HYDROcodone-acetam inophen (NORCO) 5-325 mg Oral Tablet Take 1 Tablet by mouth every 6 hours as needed for Acute Pain (R52) for up to 3 days. 12 Tablet 11/26/2022 11/26/2022 documented in this encounter Discharge Disposition Disposition Code Departure Means Destination Comment s Home or Self [facility] documented in this encounter ED Notes * ArmaanLaurenPACO - 11/26/2022 7:18 PM EDT CHIEF COMPLAINT Chief Complaint Patient presents with Dental Pain Abscess that started yesterday HPI I am seeing this patient with Dr. Pebbles Brown MD who is available for consultation during this encounter. Gardenia Childress is a 42 y.o. female with previous medical history as described below most significantly notable for biliary atresia, migraines who [facility]. Patient states that she has a broken tooth in the left upperside that needs to be pulled. She has an appointment for a oral surgeon that was recommended to her by her dentist. Her appointment is for next Friday, in approximately 1 week. Patient states that she noticed some pain in her tooth yesterday and then woke up this morning with worsening pain. She states she did not have any facial swelling this morning but as the day has gone on she has noticed some left facial swelling. She states she took Tylenol at home earlier today without relief. She denies any body aches or fevers. Denies any difficulty swallowing or drooling. Denies difficulty openingher mouth. Denies any additional complaints at this time. REVIEW OF SYSTEMS See HPI for further details. Constitutional: Negative. HENT: Positive for dental pain. Eyes: Negative. Respiratory: Negative. Cardiovascular: Negative. Gastrointestinal: Negative. Endocrine: Negative. Genitourinary: Negative. Musculoskeletal: Negative. Skin: Negative. Allergic/Immunologic: Negative. Neurological: Negative. Hematological: Negative. Psychiatric/Behavioral: Negative. All other systems reviewed and are otherwise negative. 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 Biliary atresia Depression Migraines FAMILY HISTORY Family History Problem Relation Age of Onset [...] Lung Cancer Maternal Grandfather Stroke Paternal Grandmother SOCIAL HISTORY Social History Socioeconomic History Marital status: Spouse name: None Number of children: None Years of education: None Highest education level: None Tobacco Use Smoking status: Former Current packs/day: 0.00 Average packs/day: 0.5 packs/day for 0.2 years (0.1 pk-yrs) Types: Cigarettes Start date: 02/07/1994 Quit date: 04/21/1994 Years since quittin.6 Smokeless tobacco: Never Vaping Use Vaping Use: Never used Substance and Sexual Activity Alcohol use: No Alcohol/week: 0.0 oz Drug use: No Sexual activity: Yes Partners: Male control/protection: Injection SURGICAL HISTORY Past Surgical History: Procedure Laterality Date ABDOMEN SURGERY as , with CCX, Appy for bile duct ABDOMINAL EXPLORATION SURGERY 11/07/2016 Median Arcuate Ligament Division Deborah Parker MD, for biliary stenosis APPENDECTOMY couple mos old ASD REPAIR 07/09/2017 Amplatzer septal occluder CHOLECYSTECTOMY couple mos old. COLONOSCOPY 01/12/2018 Dr. Aaron Rocha, with [facility]. Normal colon UPPER GASTROINTESTINAL ENDOSCOPY 12/04/2017 at , Dr. Aaron Rocha CURRENT MEDICATIONS No current facility-administered medications for this encounter. Current Outpatient Medications: amLODIPine (NORVASC) 2.5 mg Oral Tablet, Take 1 Tablet by mouth daily., Disp: 90 Tablet, Rfl: 3 aspirin 81 mg Oral Tablet, Delayed Release (E.C.), TAKE ONE TABLET BY MOUTH DAILY, Disp: 90 Tab, Rfl: 2 medroxyPROGESTERone (DEPO-PROVERA) 150 mg/mL IM Suspension, INJECT ONE ML INTRAMUSCULARLY FOR 1 DOSE, Disp: 1 mL, Rfl: 3 medroxyPROGESTERone (DEPO-PROVERA) 150 mg/mL IM Syringe, INJECT 1 SYRINGE INTRAMUSCULARLY ONCE FOR 1 DOSE, Disp: 1 mL, Rfl: 0 metoprolol succinate (TOPROL-XL) 25 mg Oral Tablet Sustained Release 24 hr, Take 1 tablet by mouth once daily, Disp: 90 Tablet, Rfl: 0 methylPREDNISolone (MEDROL DOSPACK) 4 mg Oral Tablets, Dose Pack, See package instructions (Patientnot taking: Reported on 11/26/2022), Disp: 21 Tablet, Rfl: 0 oxyCODONE-acetaminophen (PERCOCET) 5-325 mg Oral Tablet, Take 1 Tablet by mouth every 6 hours as needed for Acute Pain (R52) for up to 3 days., Disp: 12 Tablet, Rfl: 0 penicillin v potassium (VEETID) 500 mg Oral Tablet, Take 1 Tablet by mouth 4 times daily for 7 days., Disp: 28 Tablet, Rfl: 0 ALLERGIES Allergies Allergen Reactions Latex Rash Latex, Natural Rubber Rash Morphine Nausea And Vomiting Vicodin [Hydrocodone-Acetaminophen] Itching Metronidazole Rash PHYSICAL EXAM Vitals: 11/26/22 1922 11/26/22 1932 BP: 143/81 Pulse: 70 Resp: 16 Temp: 97.9 ??F (36.6 ??C) SpO2: 100% refer to nursing notes for most recent vital signs. Constitutional: Awake, alert & oriented. Well developed, and in no acute distress. HENT: Normocephalic, atraumatic head. Bilateral external ears normal. Nose normal. Throat normal. Posterior oropharynx without exudate or erythema. Uvula midline. No trismus. No drooling. No sublingual swelling. Mild left facial swelling. Dental: Scattered poor dentition with dental caries. First premolar #12 tooth is broken with exposed tooth root. Questionable early apical abscess that is pinpoint to the superior gumline with surrounding erythema. No palpable fluctuance. No drainage. No trismus. No drooling. Tongue normal. No sublingual swelling. Eyes: Conjunctiva normal, no discharge. Neck: Normal range of motion, supple. Cardiovascular: Normal heart rate, normal pulses. Thorax & Lungs: No respiratory distress. No chest asymmetry or tenderness. Abdomen: Soft, non tender, non distended. Skin: Warm, dry. No rash. No pallor or cyanosis. Back: No tenderness. Musculoskeletal: No signs of injury. Peripheral Vascular: No edema. No apparent focal weakness. Good strength bilaterally. Neurologic: No focal deficits. Psych: Calm, pleasant and cooperative. Mood normal and behavior appropriate. LABS/RADIOLOGY/PROCEDURES Labs Reviewed - No data to display No orders to display No orders to display COURSE & MEDICAL DECISION MAKING Pertinent Labs & Imaging studies reviewed. (See chart for details) Medications penicillin v potassium (VEETID) tablet 500 mg (500 mg Oral Given 11/26/222001) oxyCODONE-acetaminophen (PERCOCET) 5-325 mg per tablet 1 Tablet (1 Tablet Oral Given 11/26/222001) External records reviewed including previous ED notes. History obtained by patient. No social determinates addressed. Shared decision making used for treatment plan. Case discussed thoroughly with attending physician who is agreeable to plan. Gardenia Childress is a nontoxic, well appearing female who presents with complaints of left facial swelling and dental pain. Vital signs are stable. Patient is afebrile. Physical exam as noted above consistent with concerns for early development of apical abscess of the left upper first premolar. No evidence of Ludwigs angina. Airway patent. I offered the patient attempt of incision and drainage of the small area of questionable early abscess. Patient declined at this time and would like to first try pain medication and antibiotic treatment. Patient was given a Percocet for her discomfort. She was given her first dose of penicillin in the emergency department. A prescription for penicillin and Percocet was sent to desired pharmacy for her infection. She was instructed to keep her appointment with her oral surgeon for next Friday and explained that if after being on antibiotics for 24 hours the patient's pain or swelling worsenedor did not improve she needed to return to the emergency department or try to get in sooner to her oral surgeon. Return precautions were reviewed and discussed. Patient verbalized understanding of discharge instructions and is agreeable to this plan. Patient discharged in stable condition. Discussed Patient with another provider: Yes, Dr. Brown . Attending physician personally spoke with and evaluated patient: no. Care of patient discussed with nursing team and nursing documentation reviewed. ED Current Prescriptions Medication Dispense Auth. Provider penicillin v potassium (VEETID) 500 mg Oral Tablet 28 Tablet Pamela Brown MD oxyCODONE-acetaminophen (PERCOCET) 5-325 mg Oral Tablet 12 Tablet Pamela Brown MD FINAL IMPRESSION 1. Dental infection Disposition: Risks, benefits, and alternatives were discussed. At this time the patient has been deemed safe for discharge. My customary discharge instructions including strict return precautions forworsening or new symptoms have been communicated. Condition at Discharge/Transfer from Department: Stable Lauren Crook APRN This chart was completed using voice recognition technology and may contain unintended errors Lauren Crook APRN 11/26/222043 Cosigned by Pamela Brown MD at 11/26/2022 8:54 PM EDT Associated attestation - Pamela Brown MD - 11/26/2022 8:54 PM EDT I agree with the plan above. I was present and available for questions at all times. This chart was completed using voice recognition technology and may contain unintended errors documented in this encounter Plan of Treatment Upcoming Encounters Date Type Department Care Team (Late st Contact Info) Description 04/24/2024 10:45 AM EST Clinical Support [facility] [address] [place] [address] documented as of this encounter Goals Goal Patient Goal Type Associated Problems Recent Progress Patient-Stated? Author Maintain a healthy diet, exercise regularly and maintain an ideal body weight General No Tcheng, Thea Mcneilli, MD Stay Tobacco Free Lifestyle No Thea Rubio MD documented as of this encounter Visit Diagnoses Diagnosis Dental infection- Primary Acute apical periodontitis of pulpal origin documented in this encounter Administered Medications Inactive Administered Medications - up to 1 most recent administrations Medication Order MAR Action Action Date Dose Rate Site oxyCODONE-acetaminophen (PERCOCET) 5-325 mg per tablet 1 Tablet 1 Tablet, Oral, ONCE, 1 dose, On Fri11/26/22 at 1945, Maximum adult dose of acetaminophen is 4000 mg from all sources in 24 hours. Given 11/26/2022 8:02 PM EDT 1 Tablet penicillin v potassium (VEETID) tablet 500 mg 500 mg, Oral, ONCE, 1 dose, On Fri11/26/22 at 1945, Reason for Therapy: Infection Suspected, Indication: HEENT Coverage Given 11/26/2022 8:02 PM EDT 500 mg documented in this encounter Discontinued Medications Medication Sig Discontinue Reason Start Date End Da te HYDROcodone-acetaminophe n (NORCO) 5-325 mg Oral Tablet Take 1 Tablet by mouth every 6 hours as needed for Acute Pain (R52) for up to 3 days. Cancelled by 11/26/2022 11/26/2022 documented as of this encounter Active and Recently Administered Medications Times are shown in EDT. Scheduled Medication Order 11/24/2022 11/25/2022 11/26/2022 oxyCODONE-acetaminophen (PERCOCET) 5-325 mg per tablet 1 Tablet (COMPLETED) 1 Tablet, Oral, ONCE, 1 dose, On Fri11/26/22 at 1945, Maximum adult dose of acetaminophen is 4000 mg from all sources in 24 hours. 2001 (Given - Provid er: Geno Gomez RN) penicillin v potassium (VEETID) tablet 500 mg (COMPLETED) 500 mg, Oral, ONCE, 1 dose, On Fri11/26/22 at 1945, Reason for Therapy: Infection Suspected, Indication: HEENT Coverage 2001 (Given - Provid er: Geno Gomez RN) documented in this encounter Additional Health Concerns Assessment Noted Time PHQ-9 Depression Total Score: 2 10/07/19 18 8:00 AM EDT PHQ-2 Depression Total Score: 2 10/07/19 18 8:00 AM EDT documented as of this encounter Care Teams Art Preparator Relationship Specialty Start Date End Date Abdifatah Geiger MD [address] [place] [phone] PCP - General Family Medicine 07/17/22 08/25/23 Abdifatah Uriarte MD [address] [place] [address] [place] [address] Consulting Physician Obstetrics & Gynecology-Gynecologic Oncology 12/16/19 documented as of this encounter
--- OUTSIDE RECORDS SUMMARY | 2024-03-14 18:15 | XMS_ITS | Encounter Summary ---
Author Organization [place] [address] Care Team Providers Care Electric Fan Assembler Name Role Phone Abdifatah Uriarte MD Unavailable Abdifatah Geiger MD Primary Care Provider [phone] Reason for Visit * Reason Comments Injections Encounter Details Date Type Department Care Team (Latest Contact Info) Description 12/17/2022 10:00 AM EDT Clinical Support [facility] [address] [place] [phone] Chelsea Agee, HERIBERTO Excessive and frequent menstruation (Primary Dx) Social [...] PM EDT documented as of this encounter Plan of Treatment Upcoming Encounters Date Type Department Care Team (Late st Contact Info) Description 04/24/2024 10:45 AM EST Clinical Support [facility] [address] [place] [address] documented as of this encounter [...] 150 mg, Intramuscular, ONCE, 1 dose, On Fri12/17/22 at 1015, Dx: 1. Excessive and frequent menstruationIndications:Excess josie and frequent menstruation Given 12/17/2022 10:04 AM EDT 150 mg Left Arm documented in this encounter Additional Health Concerns Assessment Noted Time PHQ-9 Depression Total Score: 2 10/07/19 18 8:00 AM EDT PHQ-2 Depression Total Score: 2 10/07/19 18 8:00 AM EDT documented as of this encounter Care Teams Electric Fan Assembler Relationship Specialty Start Date End Date Abdifatah Geiger MD [address] [place] [phone] PCP - General Family Medicine 07/17/22 08/25/23 Abdifatah Uriarte MD [address] [place] [address] [place] [address] Consulting Physician Obstetrics & Gynecology-Gynecologic Oncology 12/16/19 documented as of this encounter
--- OUTSIDE RECORDS SUMMARY | 2024-03-14 18:15 | XMS_ITS | Encounter Summary ---
Author Organization [place] [address] Care Team Providers Care Special Delivery Messenger Name Role Phone Abdifatah Uriarte MD Unavailable [phone] Abdifatah Geiger MD Primary Care Provider [phone] Reason for Visit * Reason Onset Date Comments Medication Refill 01/05/2023 Encounter Details Date Type Department Care Team (Late st Contact Info) Description 01/05/2023 Refill [facility] [address] [place] [address] Migue Anne MD [address] [place] [address] Medication Refill Social History Tobacco Use Types [...] 1 Tablet by mouth daily. 30 Tablet 01/06/2023 02/05/2023 documented in this encounter Plan of Treatment Upcoming Encounters Date Type Department Care Team (Late st Contact Info) Description 04/24/2024 10:45 AM EST Clinical Support [facility] [address] [place] [address] documented as of this encounter [...] Sustained Release 24 hrIndications:Palpitatio ns Take 1 Tablet by mouth daily. Reorder 12/16/2022 01/05/2023 documented as of this encounter Additional Health Concerns Assessment Noted Time PHQ-9 Depression Total Score: 2 10/07/19 18 8:00 AM EDT PHQ-2 Depression Total Score: 2 10/07/19 18 8:00 AM EDT documented as of this encounter Care Teams Special Delivery Messenger Relationship Specialty Start Date End Date Abdifatah Geiger MD [address] [place] [phone] PCP - General Family Medicine 07/17/22 08/25/23 Abdifatah Uriarte MD [address] [place] [address] [place] [phone] Consulting Physician Obstetrics & Gynecology-Gynecologic Oncology 12/16/19 documented as of this encounter
--- OUTSIDE RECORDS SUMMARY | 2024-03-14 18:15 | XMS_ITS | Encounter Summary ---
Author Organization [place] [address] Care Team Providers Care Milk Condenser Name Role Phone Thea Rubio MD Primary Care Provider [phone] Abdifatah Uriarte MD Unavailable [phone] Reason for Referral * Mammography (Routine) - Pending Review Specialty Diagnoses / Procedures Referred By Amalia tuttle Referred To Contact Radiology Diagnoses Breast cancer screening by mammogram Procedures MM MAMMO DIGITAL MADELEINE SCREEN BILAT Misty Gillespie MD [address] [place] [address] Phone: tel: fax: Referral ID Status Reason Start Date Expiration Date V isits Requested Visits Authorized [id number] Pending Review 06/04/2022 06/03/2024 1 1 Reason for Visit * Reason Comments Gynecologic Exam * Consultation (Routine) - Closed Specialty Diagnoses / Procedures Referred By Amalia t Referred To Contact Obstetrics & Gynecology / Obstetrics and Gynecology Diagnoses Annual, [facility] Procedures ANNUAL OFFICE VISIT Thea Rubio MD Phone: tel: fax: Misty Gillespie MD [address] [place] [address] Phone: tel: fax: Referral ID Status Reason Start Date Expiration Date Visits Re quested Visits Authorized [id number] Closed 06/04/2022 06/04/2023 99 99 Encounter Details Date Type Department Care Team (Late st Contact Info) Description 06/04/2022 2:20 PM EST Office Visit [facility] [address] [place] [address] Misty Gillespie MD [address] [place] [address] Well woman exam with routine gynecological exam (Primary Dx); Breast cancer screening by mammogram Social History Tobacco Use Types Packs/Day Years [...] Sign Reading Time Taken Comments Blood Pressure 132/72 06/04/2022 2:24 PM EST Pulse - - Temperature - - Respiratory Rate - - Oxygen Saturation - - Inhaled Oxygen Concentration - - Weight 79.4 kg (175 lb) 06/04/2022 2:24 PM EST Height 164.5 cm (5' 4.75 ) 06/04/2022 2:24 PM ES T Body Mass Index 29.35 06/04/2022 2:24 PM EST documented in this encounter Progress Notes * Misty Gillespie MD - 06/04/2022 2:20 PM EST RESPIRATORY THERAPY AIDE ANNUAL EXAM HPI: Patient is a 42 y.o. female presenting for annual exam. Amenorrheic with depo provera. Currentcontraception: Depo-Provera injections. No LMP recorded. Patient has had an injection. Mammo scheduled. Past Medical History: Diagnosis Date ??? Abnormal glandular Papanicolaou smear of cervix ??? 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 Biliary atresia ??? Depression ??? Migraines Past Surgical History: Procedure Laterality Date ??? ABDOMEN SURGERY as , with CCX, Appy for bile duct ??? ABDOMINAL EXPLORATION SURGERY 11/07/2016 [facility] Deborah Parker MD, for biliary stenosis ??? APPENDECTOMY couple mos old ??? ASD REPAIR 07/09/2017 Amplatzer septal occluder ??? CHOLECYSTECTOMY couple mos old. ??? COLONOSCOPY 01/12/2018 Dr. Aaron Rocha, with [facility]. Normal colon ??? UPPER GASTROINTESTINAL ENDOSCOPY 12/04/2017 at , Dr. Aaron Rocha Family History Problem Relation Age of Onset ??? Diabetes Mother ??? Heart Disease Mother stentsx7 ??? High Blood Pressure Mother ??? Heart Attack Mother 35 ??? COPD Mother ??? Kidney Disease Mother ??? Heart Failure Mother ??? Other (melanoma) Mother treated with surgery ??? Other Father Leigha huddleston, (sp ?), causes head aneurysms. ??? Aneurysm Father ??? Ovarian Cancer Sister 32 ??? Cervical Cancer Sister ??? Uterine Cancer Sister ??? Cancer Paternal Aunt uterine ??? Cancer Paternal Uncle ? type ??? Breast Cancer Maternal Grandmother ??? Diabetes Maternal Grandfather ??? Heart Disease Maternal Grandfather ??? Lung Cancer Maternal Grandfather ??? Stroke Paternal Grandmother Social History Socioeconomic History ??? Marital status: Spouse name: None ??? Number of children: None ??? Years of education: None ??? Highest education level: None Tobacco Use ??? Smoking status: Former Packs/day: 0.50 Years: 0.20 Pack years: 0.10 Types: Cigarettes Quit date: 04/21/1994 Years since quittin.1 ??? Smokeless tobacco: Never Vaping Use ??? Vaping Use: Never used Substance and Sexual Activity ??? Alcohol use: No Alcohol/week: 0.0 oz ??? Drug use: No ??? Sexual activity: Yes Partners: Male control/protection: Injection Current Outpatient Medications: ??? amLODIPine (NORVASC) 2.5 mg Oral Tablet, Take 1 tablet by mouth once daily, Disp: 90 Tablet, Rfl: 0 ??? aspirin 81 mg Oral Tablet, Delayed Release (E.C.), TAKE ONE TABLET BY MOUTH DAILY, Disp: 90 Tab, Rfl: 2 ??? medroxyPROGESTERone (DEPO-PROVERA) 150 mg/mL IM Suspension, INJECT ONE ML INTRAMUSCULARLY FOR 1DOSE, Disp: 1 mL, Rfl: 3 ??? metoprolol succinate (TOPROL-XL) 25 mg Oral Tablet Sustained Release 24 hr, Take 1 tablet by mouth once daily, Disp: 90 Tablet, Rfl: 0 ??? medroxyPROGESTERone (DEPO-PROVERA) 150 mg/mL IM Syringe, INJECT 1 SYRINGE INTRAMUSCULARLY ONCE FOR 1 DOSE, Disp: 1 mL, Rfl: 0 Allergies Allergen Reactions ??? Latex Rash ??? Latex, Natural Rubber Rash ??? Morphine Nausea And Vomiting ??? Metronidazole Rash PHYSICAL EXAM: BP 132/72 (BP Location: Left arm, Patient Position: Sitting) Ht 5' 4.75 (1.645 m) Wt 175 lb (79.4 kg) BMI 29.35 kg/m?? General appearance: alert, well appearing, and [...] genitalia, vulva, vagina, cervix, uterus and adnexa. Thyroid exam reveals thyroid is normal in size without nodules or tenderness. Review of Systems - Pertinent items are noted in HPI Assessment: 42 y.o. female presenting for annual exam: 1. Well woman exam with routine gynecological exam [facility] RESPIRATORY THERAPY AIDE CYTOLOGY ORDER 2. Breast cancer screening by mammogram MM MAMMO DIGITAL MADELEINE SCREEN BILAT - RTO 1 year or prn Misty Gillespie MD documented in this encounter Plan of Treatment Upcoming Encounters Date Type Department Care Team (Late st Contact Info) Description 04/24/2024 10:45 AM EST Clinical Support [facility] [address] [facility] [place] [id number] documented as of this encounter Goals Goal Patient Goal Type Associated Problems Recent Progress Patient-Stated? Author Maintain a healthy diet, exercise regularly and maintain an ideal body weight General No Thea Rubio MD Stay Tobacco Free Lifestyle No Thea Rubio MD documented as of this encounter Procedures Procedure Name Priority Date/Time Associated Diagnosis Comments RESPIRATORY THERAPY AIDE CYTOLOGY REQUEST (PAP ONLY) Routine 06/04/2022 2:46 PM EST Well woman exam with routine gynecological exam [facility] RESPIRATORY THERAPY AIDE CYTOLOGY ORDER Routine 06/04/2022 2:46 PM EST Well woman exam with routine gynecological exam HPV HIGH RISK Routine 06/04/2022 2:46 PM EST Well woman exam with routine gynecological exam documented in this encounter Results * MM MAMMO DIGITAL MADELEINE SCREEN BILAT (07/10/2022 8:14 AM EDT) Anatomical Region Laterality Modality Breast Bilateral Mammography 07/10/2022 9:09 AM EDT Impressions 07/10/2022 9:09 AM EDT Negative ??([id number]) ~ RECOMMENDATION: Routine screening mammogram in 1 [...] the next mammogram, in accordance with the [employer] and the Society of Breast Imaging recommendations. Narrative 07/10/2022 9:09 AM EDT Procedure:MM MAMMO DIGITAL MADELEINE SCREEN BILAT ~ Reason for exam: screening, asymptomatic. Z12.31-Encounter for screening mammogram for malignant neoplasm of gymnej-FLA-19-CM ~ MM MAMMO DIGITAL MADELEINE SCREEN BILAT Bilateral CC and MLO view(s) were taken. Technologist: RT Yadi The breast tissue is heterogeneously dense. ??This [...] for screening mammogram for malignant neoplasm of glxxyj-CZR-75-CM ~ MM MAMMO DIGITAL MADELEINE SCREEN BILAT Bilateral CC and MLO view(s) were taken. Technologist: RT Yadi The breast tissue is heterogeneously dense. This may lower thesensitivity of mammography. Prior study comparison: Compared with prior studies the most recentbeing 10/30/20, 10/07/19 No suspicious mass, architectural distortion, or microcalcifications. No mammographic evidence of malignancy. ~ IMPRESSION: Negative ([id number]) ~ RECOMMENDATION: Routine screening mammogram in 1 [...] the next mammogram, in accordance with the [employer] and the Society of Breast Imaging recommendations. Misty Gillespie MD [facility] MAMMOGRAPHY ORDERABLES Final Result * HPV HIGH RISK (06/04/2022 2:46 PM EST) HPV HR Not Detected Not Detected 06/05/2022 3:47 PM EST [facility] Thin Prep SPECIMEN FROM UTERINE CERVIX / Unknown 06/04/2022 2:46 PM EST 06/04/2022 2:46 PM EST Narrative [facility] - 06/05/2022 3:47 PM EST This test was performed using [...] with other available laboratory and clinical data.?? Misty Gillespie MD MICROBIOLOGY - GENERAL [facility] Final Result [facility] [address] [facility] , [place] [address] * RESPIRATORY THERAPY AIDE CYTOLOGY REQUEST (PAP ONLY) (06/04/2022 2:46 PM EST) CASE REPORT Gynecologic Cytology Report ? Case: [id number] ? Authorizing Provider: ??Misty Gillespie MD ? Collected: ? 06/04/2022 1446 ? Ordering Location: ? [facility] ? Received: ?06/04/2022 1446 ? First Screen: ?Diego Raza, ? CT ? Rescreen: ?Lashell Mccann CT ? Specimen: ?LIQUID-BASED PAP - CERVICAL/ENDOCERV ICAL, Cervix, Endocervical ? 06/06/2022 10:44 AM [facility] P[facility] FINAL DIAGNOSIS Negative for intraepithelial lesion or malignancy 06/06/2022 10:44 AM [facility] OSCOPIC DESCRIPTION Microscopic examination is performed and the findings corroborate the diagnosis. 06/06/2022 10:44 AM [facility] PAP SMEAR ADEQUACY Satisfactory for evaluation 06/06/2022 10:44 AM [facility] ENDOCERVICAL T-ZONE Transformation zone present 06/06/2022 10:44 AM [employer] [facility] E[facility] 10:44 AM [facility] PAP DISCLAIMER The Pap Smear is a screening test that aids in the detection of cervical cancer and cancer precursors. Both false positive and false negative results can occur. The test should be used at regular intervals, and positive results should be confirmed before definitive therapy. Processed using the [employer] Automated cytology screening device (Rewardpod). 06/06/2022 10:44 AM EST [facility] Thin Prep ENDOCERVICAL STRUCTURE / Unknown 06/04/2022 2:46 PM EST 06/04/2022 2:46 PM EST us Misty Gillespie MD CYTOLOGY ORDERABLES Final R esult [facility] [address] [place] [address] documented in this encounter Visit Diagnoses Diagnosis Well woman exam with routine gynecological exam- Primary Routine gynecological examination Breast cancer screening by mammogram Breast cancer screening by mammogram documented in this encounter Additional Health Concerns Assessment Noted Time PHQ-9 Depression Total Score: 2 10/07/19 18 8:00 AM EDT PHQ-2 Depression Total Score: 2 10/07/19 18 8:00 AM EDT documented as of this encounter Care Teams Milk Condenser Relationship Specialty Start Date End Date Thea Rubio MD PCP - General Family Medicine 09/13/14 07/16/22 Abdifatah Uriarte MD [address] [facility] [place] [phone] Consulting Physician Obstetrics & Gynecology-Gynecologic Oncology 12/16/19 documented as of this encounter
--- OUTSIDE RECORDS SUMMARY | 2024-03-14 18:15 | XMS_ITS | Encounter Summary ---
Author Organization [place] [address] Care Team Providers Care Tv Host Name Role Phone Abdifatah Uriarte MD Unavailable [phone] Abdifatah Geiger MD Primary Care Provider [phone] Reason for Referral * Echo (Routine) - Closed Specialty Diagnoses / Procedures Referred By Amalia t Referred To Contact Radiology Diagnoses ASD (atrial septal defect) Palpitations Chest discomfort Procedures EC ECHOCARDIOGRAM COMPLETE W DOPPLER AND COLOR FLOW MAPPING Migue Anne MD [address] [place] [address] Phone: tel: fax: Referral ID Status Reason Start Date Expiration Date Visits Re quested Visits Authorized [id number] Closed 12/17/2022 12/16/2024 1 1 Reason for Visit * Reason Comments Annual Exam Annual exam * Consultation (Routine) - Closed Specialty Diagnoses / Procedures Referred By Contac t Referred To Contact Internal Medicine-Cardiovascular Disease / Cardiology Diagnoses 1 year follow up Procedures OFFICE VISIT Thea Rubio MD Phone: tel: fax: Migue Anne MD [address] [place] [address] Phone: tel: fax: Referral ID Status Reason Start Date Expiration Date Visits Re quested Visits Authorized [id number] Closed 12/17/2022 12/17/2023 99 99 Encounter Details Date Type Department Care Team (Late st Contact Info) Description 12/17/2022 8:30 AM EDT Office Visit [facility] [address] [place] [address] Migue Anne MD [address] [facility] [address] [place] [address] ASD (atrial septal defect) (Primary Dx); Palpitations; Chest discomfort Social History Tobacco Use Types Packs/Day Years [...] Sign Reading Time Taken Comments Blood Pressure 122/78 12/17/2022 8:39 AM EDT Pulse 65 12/17/2022 8:39 AM EDT Temperature - - Respiratory Rate - - Oxygen Saturation 98% 12/17/2022 8:39 AM EDT Inhaled Oxygen Concentration - - Weight 72.7 kg (160 lb 3.2 oz) 12/17/2022 8:39 A M EDT Height 164.5 cm (5' 4.75 ) 12/17/2022 8:39 AM ED T Body Mass Index 26.86 12/17/2022 8:39 AM EDT documented in this encounter Progress Notes * Migue Anne MD - 12/17/2022 8:30 AM EDT Cardiology Follow Up Visit Name: Gardenia Childress : 1980 Referring Physician Abdifatah Geiger MD Reason for Follow-up Chest Brennan, ASD, GAMING HPI 42 y.o. female is seen for regarding /o ASD closure, chronic chest pain and GAMING. She feels fairly well. Her weight is down from last visit with dietary modication. 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 Occasional fleeting palpitations very short lived. Rare chest pain but always fleeting. No exertional chest pain. Blood pressure has been well controlled. ROS Positive: intentional weight loss Denies: Change in vision, headache, fever, chills, nausea, vomiting, anorexia, diarrhea, change in bowel or bladder habits. No palpitations, lightheadedness, dizziness, syncope, or near syncope. No extreme fatigue, daytime solomence or change in energy level. No significant depression or anhedonia. Current Outpatient Medications Medication Sig Dispense Refill amLODIPine (NORVASC) 2.5 mg Oral Tablet Take 1 Tablet by mouth daily. 90 Tablet 3 aspirin 81 mg Oral Tablet, Delayed Release (E.C.) TAKE ONE TABLET BY MOUTH DAILY 90 Tab 2 medroxyPROGESTERone (DEPO-PROVERA) 150 mg/mL IM Suspension INJECT ONE ML INTRAMUSCULARLY FOR 1 DOSE1 mL 0 metoprolol succinate (TOPROL-XL) 25 mg Oral Tablet Sustained Release 24 hr Take 1 Tablet by mouth daily. 30 Tablet 0 medroxyPROGESTERone (DEPO-PROVERA) 150 mg/mL IM Syringe INJECT 1 SYRINGE INTRAMUSCULARLY ONCE FOR 1DOSE (Patient not taking: Reported on 12/17/2022) 1 mL 0 methylPREDNISolone (MEDROL DOSPACK) 4 mg Oral Tablets, Dose Pack See package instructions (Patient not taking: Reported on 11/26/2022) 21 Tablet 0 No current facility-administered medications for this visit. Allergies Allergen Reactions Latex Rash Latex, Natural Rubber Rash Morphine Nausea And Vomiting Vicodin [Hydrocodone-Acetaminophen] Itching Metronidazole Rash Objective Vitals: 12/17/22 0839 BP: 122/78 Pulse: 65 SpO2: 98% Exam: GENERAL APPEARANCE: In no acute distress HEENT: Normocephalic, Atraumatic, Sclera anicteric, Pupils equal, round, and reactive. NECK: No JVD, No Bruit. Carotid upstrokes are full. RESPIRATORY: No rales or wheezing HEART: Normal S1, with split S2. No murmur. VASCULAR: Normal pulses, equal bilaterally. ABDOMEN: Soft, nontender, no organomegaly, no distension. EXTREMITIES: No edema. Calves are soft No results found for this visit on 12/17/22. Labs Lab Results Component Value Date CHOLESTEROL 139 10/10/2021 CHOLESTEROL 137 12/16/2019 CHOLESTEROL 154 05/14/2017 HDL 42 10/10/2021 HDL 55 12/16/2019 HDL 68 05/14/2017 LDLCALC 79 10/10/2021 LDLCALC 67 12/16/2019 LDLCALC 73 05/14/2017 TRIG 98 10/10/2021 TRIG 73 12/16/2019 TRIG 67 05/14/2017 Lab Results Component Value Date INR 1.06 07/04/2017 Lab Results Component Value Date WBC 7.4 10/10/2021 WBC 5.3 12/16/2019 WBC 6.9 10/09/2018 HGB 13.1 10/10/2021 HGB 13.2 12/16/2019 HGB 12.9 10/09/2018 HCT 41.0 10/10/2021 HCT 39.2 12/16/2019 HCT 39.6 10/09/2018 MCV 86.5 10/10/2021 MCV 87.3 12/16/2019 MCV 87.8 10/09/2018 PLT 341 10/10/2021 PLT 296 12/16/2019 PLT 324 10/09/2018 No results found for: HGBA1C Lab Results Component Value Date NA 138 10/10/2021 NA 139 12/16/2019 NA 139 10/09/2018 K 3.9 10/10/2021 K 3.9 12/16/2019 K 3.5 10/09/2018 BUN 6 10/10/2021 BUN 7 12/16/2019 BUN 6 10/09/2018 CALCIUM 9.5 10/10/2021 CALCIUM 8.8 12/16/2019 CALCIUM 9.1 10/09/2018 CL 104 10/10/2021 CL 105 12/16/2019 CL 105 10/09/2018 CO2 22 10/10/2021 CO2 22 12/16/2019 CO2 23 10/09/2018 CREATININE 0.78 10/10/2021 CREATININE 0.66 12/16/2019 CREATININE 0.75 10/09/2018 GLU 79 10/10/2021 GLU 83 12/16/2019 GLU 89 10/09/2018 Lab Results Component Value Date ALT 20 10/10/2021 ALT 6 10/09/2018 ALT 11 04/14/2018 AST 15 10/10/2021 AST 13 10/09/2018 AST 15 04/14/2018 ALKPHOS 75 10/10/2021 ALKPHOS 88 10/09/2018 ALKPHOS 54 04/14/2018 Lab Results Component Value Date TSHREFLEX 1.720 10/10/2021 Cardiac Testing: Stress Echo 05/08: 9.8 METs negative ekg and echo. EF 60%. Mild RVD. ASD with left to right interatrial shunting. Mild TR. RVSP 19. Cardiac CT - normal cors but proximal vessels not well visualized. No congenital defects noted WAYNE 05/08: EF 55%. Mild JEFFREY. 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 Echo 07/06: EF 60-65%, ASD closure device without evidence of residual interatrial shunt Echo 01/06: EF 60%. Amplazter appears well seated in the interatrial septum without evidence of residual shunting Cardiac Cath 05/09: Essentially normal epicardial coronary arteries. Normal LV function. No findingsto explain persistent chest pain Echo 10/09: EF 60-65%. Normal size and chamber sizes. Amplatz device noted in interatrial septum appearing well seated with no peridevice leak Labs 10/11: LDL - 91, HDL - 46, VLDL 18. BUN/CR and LFT's WNL Assessment: ASD S/p Closure 07/06 - no associated cardiac abnormalities on Cardiac CT - s/p ASD closure 07/06 - stable Chronic Chest Pain - empirically treating small vessel dz - ? 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 Dada Anne MD documented in this encounter Plan of Treatment Upcoming Encounters Date Type Department Care Team (Late st Contact Info) Description 04/24/2024 10:45 AM EST Clinical Support [facility] [address] [place] [address] documented as of this encounter Goals Goal Patient Goal Type Associated Problems Recent Progress Patient-Stated? Author Maintain a healthy diet, exercise regularly and maintain an ideal body weight General No Thea Rubio MD Stay Tobacco Free Lifestyle No Thea Rubio MD documented as of this encounter Results * EC ECHOCARDIOGRAM COMPLETE [...] defect occluder visualized without evidence ofinteratrial shunting. Migue Anne MD IMG ECHO ORDERABLES Fin al Result documented in this encounter Visit Diagnoses Diagnosis ASD (atrial septal defect)- Primary Ostium secundum type atrial septal defect Palpitations Chest discomfort Other chest pain ASD (atrial septal defect) Ostium secundum type atrial septal defect Palpitations Chest discomfort Other chest pain documented in this encounter Additional Health Concerns Assessment Noted Time PHQ-9 Depression Total Score: 2 10/07/19 18 8:00 AM EDT PHQ-2 Depression Total Score: 2 10/07/19 18 8:00 AM EDT documented as of this encounter Care Teams Tv Host Relationship Specialty Start Date End Date Abdifatah Geiger MD [address] [place] [phone] PCP - General Family Medicine 07/17/22 08/25/23 Abdifatah Uriarte MD [address] [place] [address] [place] [address] Consulting Physician Obstetrics & Gynecology-Gynecologic Oncology 12/16/19 documented as of this encounter
--- OUTSIDE RECORDS SUMMARY | 2024-03-14 18:15 | XMS_ITS | Encounter Summary ---
Author Organization [place] [address] Care Team Providers Care Locket Maker Name Role Phone Abdifatah Uriarte MD Unavailable [phone] Abdifatah Geiger MD Primary Care Provider [phone] Reason for Visit * Reason Comments Medication Refill Encounter Details Date Type Department Care Team (Late Contact Info) Description 02/03/2023 Refill [facility] [facility] [address] [place] [address] Migue Anne MD [address] [place] [address] Medication Refill Social History Tobacco Use Types [...] daily 90 Tablet 1 02/05/2023 08/04/2023 documented in this encounter Miscellaneous Notes * Telephone Encounter - Irma Gordon CPhT - 02/04/2023 10:22 AM EDT Metoprolol Medication Refill Protocol failed due to labs, vitals or acute exacerbations. wholesale manager Reason: Abnormal serum potassium OR potassium not on file within 6 months and Serum creatininenot on file within protocol timeframe wholesale manager Action: Defer to office. Patient needs labwork or vitals completed. Routed to office staff for outreach. This diagnosis was last assessed on 12/17/22. documented in this encounter Plan of Treatment Upcoming Encounters Date Type Department Care Team (Late st Contact Info) Description 04/24/2024 10:45 AM EST Clinical Support [facility] [address] [place] [address] documented as of this encounter [...] ns Take 1 Tablet by mouth daily. 01/06/2023 02/05/2023 documented as of this encounter Additional Health Concerns Assessment Noted Time PHQ-9 Depression Total Score: 2 10/07/19 18 8:00 AM EDT PHQ-2 Depression Total Score: 2 10/07/19 8:00 AM EDT documented as of this encounter Care Teams Locket Maker Relationship Specialty Start Date End Date Abdifatah Geiger MD [address] [place] [address] PCP - General Family Medicine 07/17/22 08/25/23 Abdifatah Uriarte MD [address] [facility] [address] Consulting Physician Obstetrics & Gynecology-Gynecologic Oncology 12/16/19 documented as of this encounter
--- OUTSIDE RECORDS SUMMARY | 2024-03-14 18:15 | XMS_ITS | Encounter Summary ---
Author Organization [facility] [place] [address] Care Team Providers Care Miller Rod Mill Name Role Phone Abdifatah Uriarte MD Unavailable [phone] Abdifatah Geiger MD Primary Care Provider [phone] Encounter Details Date Type Department Care Team (Latest Contact Info) Description 11/26/2022 Travel Social History Tobacco Use Types Packs/Day [...] 04/24/2024 10:45 AM EST Clinical Support [facility] [address] [place] [address] documented as of this encounter [...] documented as of this encounter Care Teams Miller Rod Mill Relationship Specialty Start Date End Date Abdifatah Geiger MD [address] [place] [phone] PCP - General Family Medicine 07/17/22 08/25/23 Abdifatah Uriarte MD [address] [place] [address] [place] [address] Consulting Physician Obstetrics & Gynecology-Gynecologic Oncology 12/16/19 documented as of this encounter
--- NOTE | 2024-03-14 18:16 | ED_ITS ---
Discharge Plan Disposition Patient Disposition: Admitted Condition: Good Clinical Impressions Clinical Impression: Pancreatitis, Pneumobilia Discharge ED Provider: Rigoberto Fall General Adult HPI <SOL Gutierrez - Last Filed: 03/14/24 21:24> General Chief complaint: Abdominal Pain Stated complaint: Abdominal pain, Time Seen by Provider: 03/14/24 18:02 Mode of Arrival: Ambulatory Source of Information: Patient Limitations: No Limitations Description of Symptoms (Recalled from ER Triage Doc. by RN): abdominal pain,upper gastric History of Present Illness HPI narrative: Patient presents with sudden onset of epigastric abdominal pain with nausea and vomiting. 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 She reports that this pain seems similar. She denies any change in bowel habits. Denies any fever. Denies any jaundice or icterus. Hx CCY, Appendectomy, celiac artery repair, ASD repair. MD complaint: abdominal pain, N/V Onset (ago): hour(s) (1) Location: abdomen Radiation: non-radiation Severity: severe Severity scale (1-10): >10 Consistency: constant Relieving factors: none Exacerbating factors: none Associated symptoms: nausea/vomiting; negative fever/chills Treatments prior to arrival: none Related Data Allergies Allergy/AdvReac Type Severity Reaction Status Date / Time acetaminophen (From Vicodin) Allergy Rash Verified 03/14/24 18:16 hydrocodone (From Vicodin) Allergy Rash Verified 03/14/24 18:16 morphine Allergy Rash Verified 03/14/24 18:16 PFSH <SOL Gutierrez - Last Filed: 03/14/24 21:24> [facility] Disclaimer: The information contained in this section may have been updated after the patient was seen, as this information can be updated by other users. Social History (Updated 03/14/24 @ 21:24 by SOL Gutierrez) Smoking Status: Unknown if ever smoked alcohol intake: never current occupational status: employed Travel in the last 8 weeks: None <SOL Gutierrez - Last Filed: 03/14/24 21:24> ROS Obtained: Yes All systems reviewed & no additional complaints except as documented Physical Exam <SOL Gutierrez - Last Filed: 03/14/24 21:24> General General appearance: alert, in no apparent distress and other (diaphoretic ) Head Head exam: atraumatic and normocephalic Eye Eye exam: Present normal appearance and EOMI Chest Chest inspection: Present symmetric chest wall rise Respiratory Respiratory exam: Present normal lung sounds bilaterally; Absent wheezes or stridor Cardiovascular Cardiovascular exam: Present regular rate and normal rhythm; Absent systolic murmur Abdominal Exam Abdominal exam: Present soft; Absent distention, guarding or rebound Abdominal tenderness: Present epigastrium Extremities Exam Extremities exam: Present full ROM Neurological Exam Neurological exam: Present alert and oriented X3 Psychiatric Psychiatric exam: Present normal affect and normal mood Skin Skin exam: Present warm, dry and intact Medical Decision Making <SOL Gutierrez - Last Filed: 03/14/24 21:24> Medical Records Screening: Per USPSTF and CDC recommendations, given the prevalence of disease in our region, it is our hospital?s policy to screen for HIV and viral Hepatitis for all patients aged 18 and over and those with ongoing risk factors. Ayo Inquiry Pt receiving controlled substance: No Vital Signs: 03/14/24 18:00 03/14/24 18:05 03/14/24 18:30 Temperature 98.5 F Temperature Source Oral Pulse Rate 78 65 Pulse Rate [Right] 69 Respiratory Rate 22 16 Blood Pressure 165/95 H 131/90 Blood Pressure [Right Arm] 165/95 H Blood Pressure Mean [Right Arm] 118 02 Sat by Pulse Oximetry 99 99 98 Oxygen Delivery Method Room Air Room Air Room Air Lab Data Lab Results 03/14/24 18:15: WBC 21.4 H*, RBC 5.37, Hgb 15.5, Hct 45.8, MCV 85.3, MCH 28.8, MCHC 33.8, RDW 13.5, Plt Count 450 H, MPV 7.0 L, Neut % (Auto) 72.4, Lymph % (Auto) 18.5, Citrus % (Auto) 5.6, Eos % (Auto) 2.7, Baso % (Auto) 0.8, Neut # (Auto) 15.5 H, Lymph # (Auto) 4.0, Citrus # (Auto) 1.2 H, Eos # (Auto) 0.6 H, Baso # (Auto) 0.2, Total Counted 100, Neutrophils % (Manual) 69, Lymphocytes % (Manual) 21, Monocytes % (Manual) 6, Eosinophils % (Manual) 4 H, Platelet Estimate Normal, RBC Morphology Normal, Sodium 144, Potassium 3.2 L, Chloride 107, Carbon Dioxide 24, Anion Gap 16.2 H, BUN 12, Creatinine 0.80, Estimated Creat Clear 98, Estimated GFR 79, Est GFR ( Amer) 95, Glucose 118 H, L actate 2.7 H, Calcium 9.5, Total Bilirubin 0.6, AST 29, ALT 27, Alkaline Phosphatase 79, Troponin I < 0.01, Total Protein 8.2, Albumin 4.8, Globulin 3.4 H, Albumin/Globulin Ratio 1.4, Lipase 23648 H, Serum HCG, Qual Negative 03/14/24 18:15 03/14/24 18:15 Orders (Tests/Meds): ED MEDICATIONS Generic Name Dose Route Start Last Admin Trade Name Freq PRN Reason Stop Dose Admin Acetaminophen 650 mg 03/14/24 21:17 Acetaminophen 325mg Tab PO 04/13/24 21:16 Q4HP PRN Fever or Mild Pain (1-3) Hydromorphone HCl 0.5 mg 03/14/24 21:17 Hydromorphone 2mg/Ml Syringe IV 04/13/24 21:16 Q2HP PRN Severe Pain (7-10) Lactated Ringer's 1,000 mls @ 200 mls/hr 03/14/24 21:17 Lactated Ringer's 1000 Ml Bag IV 04/13/24 21:16 .Q5H YOANNA Lactated Ringer's 1,000 mls @ 999 mls/hr 03/14/24 21:24 Lactated Ringer's 1000 Ml Bag IV 03/14/24 22:24 .Q1H1M ONE Ketorolac Tromethamine 30 mg 03/14/24 21:17 Ketorolac 30mg/Ml Vial IV 03/19/24 21:16 Q6HP PRN Moderate Pain (4-6) Prochlorperazine Edisylate 5 mg 03/14/24 21:17 Prochlorperazine 10mg/2ml Vial IV 04/13/24 21:16 Q6HP PRN Nausea And Vomiting Discontinued Medications Generic Name Dose Route Start Last Admin Trade Name Freq PRN Reason Stop Dose Admin Hydromorphone HCl 1 mg 03/14/24 18:09 03/14/24 18:21 Hydromorphone 2mg/Ml Syringe IV 03/14/24 18:10 1 mg ONCE ONE Administration Hydromorphone HCl 1 mg 03/14/24 19:33 03/14/24 19:39 Hydromorphone 2mg/Ml Syringe IV 03/14/24 19:34 1 mg ONCE ONE Administration Sodium Chloride 1,000 mls @ 999 mls/hr 03/14/24 19:10 03/14/24 19:37 Sod Chlor 0.9% 1000ml Bag IV 03/14/24 20:10 999 mls/hr .Q1H1M ONE Administration Ampicillin Sodium/Sulbactam 100 mls @ 200 mls/hr 03/14/24 19:25 03/14/24 19:36 Sodium 3 gm/ Sodium Chloride IV 03/14/24 19:26 200 mls/hr ONCE ONE Administration Iopamidol 75 ml 03/14/24 19:04 03/14/24 19:05 Iopamidol-370 (76%);100ml Bottle IV 03/14/24 19:05 75 ml ONCE ONE Administration Ondansetron HCl 4 mg 03/14/24 18:09 03/14/24 18:21 Ondansetron 4mg/2ml Vial IV 03/14/24 18:10 4 mg ONCE ONE Administration Ondansetron HCl 4 mg 03/14/24 18:50 03/14/24 18:54 Ondansetron 4mg/2ml Vial IV 03/14/24 18:51 4 mg ONCE ONE Administration Promethazine HCl 12.5 mg 03/14/24 20:41 03/14/24 20:45 Promethazine Hcl 25mg/Ml 1ml Vial IV 03/14/24 20:42 12.5 mg ONCE ONE Administration Sodium Chloride 10 ml 03/14/24 19:04 03/14/24 19:05 Sodium Chloride 0.9% 10ml Syr (Rad Only) IV 03/14/24 19:05 10 ml ONCE ONE Administration Sodium Chloride 25 ml 03/14/24 20:41 03/14/24 20:46 Sodium Chloride 0.9% 25ml Bag IV 03/14/24 20:42 25 ml ONCE ONE Administration ORDERS Category Date Time Status CT abdomen pelvis w con Stat Cat Scan 03/14/24 18:09 Completed POCUS Point of Care (ER Only) Stat Exams 03/14/24 18:19 Completed CBC w/Auto Diff [Complete Blood Count Auto Diff] Stat Lab 03/14/24 18:15 Completed CMP [Comprehensive Metabolic Panel] Stat Lab 03/14/24 18:15 Completed HCG Qualitative, Serum Stat Lab 03/14/24 18:15 Completed Lactic Acid Stat Lab 03/14/24 18:15 Completed Lipase Stat Lab 03/14/24 18:15 Completed Trop I [Troponin I] Stat Lab 03/14/24 18:15 Completed Urinalysis and Microscopic Stat Lab 03/14/24 18:09 Ordered Blood Culture Stat Micro 03/14/24 18:39 Received Medical Decision Narrative: In summary patient is a 44-year-old who presents the emergency department for evaluation of epigastric abdominal pain, nausea and vomiting. Patient is hypertensive upon arrival, afebrile. Epigastric abdominal tenderness. Differential diagnosis includes cholecystitis, biliary dysfunction, ACS, gastroenteritis, pancreatitis. Initial workup will be conducted with CBC, CMP, lipase, EKG, troponin, CT abdomen pelvis. Initial inventions include Dilaudid, Zofran. Initial workup reviewed by ne leukocytosis of 20,000, lipase over 58,000, lactic 2.7, CT abdomen and pelvis reveals evidence of pancreatitis and pneumobilia. Upon repeat evaluation improvement in pain with Dilaudid.. Given this patient admitted for further workup and GI consultation.. I informally interpreted the patient's CT read and is remarkable for pneumobilia. <Rigoberto Fall MD - Last Filed: 03/14/24 21:42> Vital Signs: 03/14/24 18:00 03/14/24 18:05 03/14/24 18:30 Temperature 98.5 F Temperature Source Oral Pulse Rate 78 65 Pulse Rate [Right] 69 Respiratory Rate 22 16 Blood Pressure 165/95 H 131/90 Blood Pressure [Right Arm] 165/95 H Blood Pressure Mean [Right Arm] 118 02 Sat by Pulse Oximetry 99 99 98 Oxygen Delivery Method Room Air Room Air Room Air Lab Data Lab Results 03/14/24 18:15: WBC 21.4 H*, RBC 5.37, Hgb 15.5, Hct 45.8, MCV 85.3, MCH 28.8, MCHC 33.8, RDW 13.5, Plt Count 450 H, MPV 7.0 L, Neut % (Auto) 72.4, Lymph % (Auto) 18.5, Citrus % (Auto) 5.6, Eos % (Auto) 2.7, Baso % (Auto) 0.8, Neut # (Auto) 15.5 H, Lymph # (Auto) 4.0, Citrus # (Auto) 1.2 H, Eos # (Auto) 0.6 H, Baso # (Auto) 0.2, Total Counted 100, Neutrophils % (Manual) 69, Lymphocytes % (Manual) 21, Monocytes % (Manual) 6, Eosinophils % (Manual) 4 H, Platelet Estimate Normal, RBC Morphology Normal, Sodium 144, Potassium 3.2 L, Chloride 107, Carbon Dioxide 24, Anion Gap 16.2 H, BUN 12, Creatinine 0.80, Estimated Creat Clear 98, Estimated GFR 79, Est GFR ( Amer) 95, Glucose 118 H, L actate 2.7 H, Calcium 9.5, Total Bilirubin 0.6, AST 29, ALT 27, Alkaline Phosphatase 79, Troponin I < 0.01, Total Protein 8.2, Albumin 4.8, Globulin 3.4 H, Albumin/Globulin Ratio 1.4, Lipase 45600 H, Serum HCG, Qual Negative Orders (Tests/Meds): ED MEDICATIONS Generic Name Dose Route Start Last Admin Trade Name Freq PRN Reason Stop Dose Admin Acetaminophen 650 mg 03/14/24 21:17 Acetaminophen 325mg Tab PO 04/13/24 21:16 Q4HP PRN Fever or Mild Pain (1-3) Hydromorphone HCl 0.5 mg 03/14/24 21:17 Hydromorphone 2mg/Ml Syringe IV 04/13/24 21:16 Q2HP PRN Severe Pain (7-10) Lactated Ringer's 1,000 mls @ 200 mls/hr 03/14/24 21:17 Lactated Ringer's 1000 Ml Bag IV 04/13/24 21:16 .Q5H YOANNA Lactated Ringer's 1,000 mls @ 999 mls/hr 03/14/24 21:24 Lactated Ringer's 1000 Ml Bag IV 03/14/24 22:24 .Q1H1M ONE Ketorolac Tromethamine 30 mg 03/14/24 21:17 Ketorolac 30mg/Ml Vial IV 03/19/24 21:16 Q6HP PRN Moderate Pain (4-6) Prochlorperazine Edisylate 5 mg 03/14/24 21:17 Prochlorperazine 10mg/2ml Vial IV 04/13/24 21:16 Q6HP PRN Nausea And Vomiting Discontinued Medications Generic Name Dose Route Start Last Admin Trade Name Freq PRN Reason Stop Dose Admin Hydromorphone HCl 1 mg 03/14/24 18:09 03/14/24 18:21 Hydromorphone 2mg/Ml Syringe IV 03/14/24 18:10 1 mg ONCE ONE Administration Hydromorphone HCl 1 mg 03/14/24 19:33 03/14/24 19:39 Hydromorphone 2mg/Ml Syringe IV 03/14/24 19:34 1 mg ONCE ONE Administration Sodium Chloride 1,000 mls @ 999 mls/hr 03/14/24 19:10 03/14/24 19:37 Sod Chlor 0.9% 1000ml Bag IV 03/14/24 20:10 999 mls/hr .Q1H1M ONE Administration Ampicillin Sodium/Sulbactam 100 mls @ 200 mls/hr 03/14/24 19:25 03/14/24 19:36 Sodium 3 gm/ Sodium Chloride IV 03/14/24 19:26 200 mls/hr ONCE ONE Administration Iopamidol 75 ml 03/14/24 19:04 03/14/24 19:05 Iopamidol-370 (76%);100ml Bottle IV 03/14/24 19:05 75 ml ONCE ONE Administration Ondansetron HCl 4 mg 03/14/24 18:09 03/14/24 18:21 Ondansetron 4mg/2ml Vial IV 03/14/24 18:10 4 mg ONCE ONE Administration Ondansetron HCl 4 mg 03/14/24 18:50 03/14/24 18:54 Ondansetron 4mg/2ml Vial IV 03/14/24 18:51 4 mg ONCE ONE Administration Promethazine HCl 12.5 mg 03/14/24 20:41 03/14/24 20:45 Promethazine Hcl 25mg/Ml 1ml Vial IV 03/14/24 20:42 12.5 mg ONCE ONE Administration Sodium Chloride 10 ml 03/14/24 19:04 03/14/24 19:05 Sodium Chloride 0.9% 10ml Syr (Rad Only) IV 03/14/24 19:05 10 ml ONCE ONE Administration Sodium Chloride 25 ml 03/14/24 20:41 03/14/24 20:46 Sodium Chloride 0.9% 25ml Bag IV 03/14/24 20:42 25 ml ONCE ONE Administration ORDERS Category Date Time Status CT abdomen pelvis w con Stat Cat Scan 03/14/24 18:09 Completed POCUS Point of Care (ER Only) Stat Exams 03/14/24 18:19 Completed CBC w/Auto Diff [Complete Blood Count Auto Diff] Stat Lab 03/14/24 18:15 Completed CMP [Comprehensive Metabolic Panel] Stat Lab 03/14/24 18:15 Completed HCG Qualitative, Serum Stat Lab 03/14/24 18:15 Completed Lactic Acid Stat Lab 03/14/24 18:15 Completed Lipase Stat Lab 03/14/24 18:15 Completed Trop I [Troponin I] Stat Lab 03/14/24 18:15 Completed Urinalysis and Microscopic Stat Lab 03/14/24 18:09 Ordered Blood Culture Stat Micro 03/14/24 18:39 Received Medical Decision Narrative: In summary patient is a 44-year-old who presents the emergency department for evaluation of epigastric abdominal pain, nausea and vomiting. Patient is hypertensive upon arrival, afebrile. Epigastric abdominal tenderness. Differential diagnosis includes cholecystitis, biliary dysfunction, ACS, gastroenteritis, pancreatitis. Initial workup will be conducted with CBC, CMP, lipase, EKG, troponin, CT abdomen pelvis. Initial inventions include Dilaudid, Zofran. Initial workup reviewed by me leukocytosis of 20,000, lipase over 58,000, lactic 2.7, CT abdomen and pelvis reveals evidence of pancreatitis and pneumobilia. Upon repeat evaluation improvement in pain with Dilaudid.. Given this patient admitted for further workup and GI consultation.. I informally interpreted the patient's CT and is remarkable for pneumobilia as well as pancreatitis. I was consulted by the LUCERO, and we discussed the complexity of the problems being addressed. I approved the treatment and management plan for this patient's care in the Emergency Department, thus performing a substantive portion of the medical decision making. Rigoberto Fall MD Critical Care <SOL Gutierrez - Last Filed: 03/14/24 21:24> Critical Care Time Critical Care Time: Yes Attestation: On 03/14/24, the high probability of a clinically significant, sudden or life threatening deterioration of the following system(s) required my full and direct attention, intervention and personal management. The time I documented below is in addition to time spent performing reported procedures but includes the following listed in this critical care notation. Total Time Total Critical Care Time: 30 <Rigoberto Fall MD - Last Filed: 03/14/24 21:42> Total Time Total Critical Care Time: 35
--- OUTSIDE RECORDS SUMMARY | 2024-03-14 18:16 | XMS_ITS | Encounter Summary ---
Author [place] [address] Care Team Providers Care Enrollment Management Director Name Role Phone Thea Rubio MD Primary Care Provider +1- [phone] Abdifatah Uriarte MD Unavailable [phone] Reason for Visit * Reason Onset Date Comments ED Follow-Up Call 10/12/2021 Encounter Details Date Type Department Care Team (Late st Contact Info) Description 10/12/2021 Patient Outreach [facility] [address] [place] [address] Lidia Jean, EQUIPMENT ENGINEER Follow-Up Call Social History Tobacco Use Types Packs/Day Years [...] on file documented as of this encounter Progress Notes * Lidia Jean, RN - 10/12/2021 9:23 AM EDT Attempted to reach patient regarding Emergency Department follow up. Patient didn't answer and voicemail was left. Letter was sent via [employer]. documented in this encounter Plan of Treatment Upcoming Encounters Date Type Department Care Team (Late st Contact Info) Description 04/24/2024 10:45 AM EST Clinical Support [facility] [address] [place] [address] documented as of this encounter [...] documented as of this encounter Care Teams Enrollment Management Director Relationship Specialty Start Date End Date Thea Rubio MD PCP - General Family Medicine 09/13/14 07/16/22 Abdifatah Uriarte MD [address] [place] [address] [place] [address] Consulting Physician Obstetrics & Gynecology-Gynecologic Oncology 12/16/19 documented as of this encounter
--- OUTSIDE RECORDS SUMMARY | 2024-03-14 18:16 | XMS_ITS | Encounter Summary ---
Author Organization [place] [address] Care Team Providers Care Manual Winder Name Role Phone Thea Rubio MD Primary Care Provider +1- [phone] Abdifatah Uriarte MD Unavailable [phone] Reason for Visit * Reason Comments Poison Jeff Poison Jeff, has tristen ointment with my DrFazal at 0900 but I cant wait that long Encounter Details Date Type Department Care Team (Late st Contact Info) Description 10/11/2021 7:20 AM EDT - 10/11/2021 8:00 AM EDT Emergency [facility] [address] [place] [address] Matthew Salas MD [address] [place] [address] Contact dermatitis due to poison jeff (Primary Dx) Discharge Disposition: Home or Self [...] Sign Reading Time Taken Comments Blood Pressure 123/74 10/11/2021 7:18 AM EDT Pulse 73 10/11/2021 7:18 AM EDT Temperature 36.8 ??C (98.2 ??F) 10/11/2021 7:18 AM ED T Respiratory Rate 16 10/11/2021 7:18 AM EDT Oxygen Saturation 100% 10/11/2021 7:18 AM EDT Inhaled Oxygen Concentration - - Weight 77.1 kg (170 lb) 10/11/2021 7:18 AM EDT Height 165.1 cm (5' 5 ) 10/11/2021 7:18 AM EDT Body Mass Index 28.29 10/11/2021 7:18 AM EDT documented in this encounter Discharge Instructions * Discharge Instructions* Matthew Salas MD - 10/11/2021 7:42 AM EDT Begin prednisone taper tomorrow, return to emergency for any concerns, continue Benadryl and calamine documented in this encounter Medications at Time of Discharge aspirin 81 mg Oral Tablet, Delayed Release (E.C.)Indicatio ns:ASD (atrial septal defect),H/O Amplatzer atrial septal defect closure TAKE ONE TABLET BY MOUTH DAILY 90 Tab 2 03/20/2020 amLODIPine (NORVASC) 2.5 mg Oral Tablet Take 1 tablet by mouth once daily 90 Tablet 1 05/04/2021 11/09/19 22 medroxyPROGESTE Abelardo (DEPO-PROVERA) 150 mg/mL IM Syringe USE DIRECTED INTRAMUSCULARLY FOR 1 DOSE 1 mL 08/15/2021 01/09/20 22 metoprolol succinate (TOPROL-XL) 25 mg Oral Tablet Sustained Release 24 hrIndications:P alpitations Take 1 Tablet by mouth daily. 30 Tablet 5 09/11/2021 03/12/20 predniSONE (DELTASONE) 10 mg Oral Tablet 6day taper- Day 1: 6 tabs in AM; Day 2: 5 tabs in AM; Day 3: 4 tabs in AM; Day 4: 3 tabs in AM; Day 5: 2tabs in AM; Day 6 -1 tab in AM 21 Tablet 10/11/2021 10/18/19 22 documented as of this encounter Ordered Prescriptions Prescription Sig Dispense Quantity Refills Last Filled Start Date End Date predniSONE (DELTASONE) 10 mg Oral Tablet 6day taper- Day 1: 6 tabs in AM; Day 2: 5 tabs in AM; Day 3: 4 tabs in AM; Day 4: 3 tabs in AM; Day 5: 2tabs in AM; Day 6 -1 tab in AM 21 Tablet 10/11/2021 10/17/2021 documented in this encounter Discharge Disposition Disposition Code Departure Means Destination Home or Self Penitentiary documented in this encounter ED Notes * Washington Encinas RN - 10/11/2021 7:59 AM EDT Due to Covid Pandemic, verbal authorization of understanding of discharge instructions was obtainedto limit risk of exposure through exchange of pens/etc. Pt understands discharge instructions given, and all questions answered. * Matthew Salas MD - 10/11/2021 6:56 AM EDT Chief Complaint Patient presents with ??? Poison Jeff Poison Jeff, has appointment with my at 0900 but I cant wait that long 41-year-old female presents emerged department complaining of poison jeff rash over extremities, trunk and private areas. Had an appointment with This morning but could not wait. Has been using calamine at home. Denies fever or chills. Denies swelling in throat, face or eye involvement or difficulty breathing. Patient History Allergies Allergen Reactions ??? Latex Rash ??? Latex, Natural Rubber Rash ??? Morphine Nausea And Vomiting ??? Metronidazole Rash Home Medications: Prior to Admission medications Medication Sig Start Date End Date Taking? Authorizing Provider amLODIPine (NORVASC) 2.5 mg Oral Tablet Take 1 tablet by mouth once daily 05/04/21 Migue Anne MD aspirin 81 mg Oral Tablet, Delayed Release (E.C.) TAKE ONE TABLET BY MOUTH DAILY 03/20/20 Tiny Mendoza APRN medroxyPROGESTERone (DEPO-PROVERA) 150 mg/mL IM Suspension INJECT ONE ML INTRAMUSCULARLY FOR 1 DOSE04/30/21 Misty Gillespie MD medroxyPROGESTERone (DEPO-PROVERA) 150 mg/mL IM Syringe USE DIRECTED INTRAMUSCULARLY FOR 1 DOSE 08/15/21 Misty Gillespie MD metoprolol succinate (TOPROL-XL) 25 mg Oral Tablet Sustained Release 24 hr Take 1 Tablet by mouth daily. 09/11/21 Migue Anne MD predniSONE (DELTASONE) 10 mg Oral Tablet 6day taper- Day 1: 6 tabs in AM; Day 2: 5 tabs in AM; Day 3: 4 tabs in AM; Day 4: 3 tabs in AM; Day 5: 2tabs in AM; Day 6 -1 tab in AM 10/11/21 10/17/21 Matthew Salas MD Past Medical History: Past Medical History: Diagnosis Date ??? Abnormal glandular Papanicolaou smear of cervix ??? 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 Biliary atresia ??? Depression ??? Migraines Social History: reports that she quit smoking about 27 years ago. She has a 0.10 pack-year smoking history. She has never used smokeless tobacco. She reports being sexually active and has had partner(s) who are male. She reports using the following method of control/protection: Injection. Shereports that she does not drink alcohol and does not use drugs. E-Cigarettes (such as Vapes or Juul) ??? E-Cigarette Use Never User Family History: Family History Problem Relation Age of Onset ??? Ovarian Cancer Sister 32 ??? Cervical Cancer Sister ??? Uterine Cancer Sister ??? Diabetes Mother ??? Heart Disease Mother [id number] ??? High Blood Pressure Mother ??? Heart Attack Mother 35 ??? COPD Mother ??? Kidney Disease Mother ??? Heart Failure Mother ??? Other (melanoma) Mother treated with surgery ??? Cancer Paternal Aunt uterine ??? Cancer Paternal Uncle ? type ??? Breast Cancer Maternal Grandmother ??? Diabetes Maternal Grandfather ??? Heart Disease Maternal Grandfather ??? Lung Cancer Maternal Grandfather ??? Stroke Paternal Grandmother ??? Other Father Leigha huddleston, (sp ?), causes head aneurysms. Surgical History: Past Surgical History: Procedure Laterality Date ??? ABDOMEN SURGERY as infant, with CCX, Appy for bile duct ??? ABDOMINAL EXPLORATION SURGERY 11/07/2016 [facility] Deborah Parker MD, for biliary stenosis ??? APPENDECTOMY couple mos old ??? ASD REPAIR 07/09/2017 Amplatzer septal occluder ??? CHOLECYSTECTOMY couple mos old. ??? COLONOSCOPY 01/12/2018 Dr. Aaron Rocha, with [facility]. Normal colon ??? UPPER GASTROINTESTINAL ENDOSCOPY 12/04/2017 at , Dr. Aaron Rocha Review of Systems Review of Systems All other systems reviewed and are negative. Physical Exam Blood pressure 123/74, pulse 73, temperature 98.2 ??F (36.8 ??C), temperature source Oral, resp. rate 16, height 5' 5 (1.651 m), weight 170 lb (77.1 kg), SpO2 100 %, not currently . Physical Exam Vitals and nursing note reviewed. Constitutional: General: She is not in acute distress. Appearance: Normal appearance. HENT: Head: Normocephalic and atraumatic. Eyes: Extraocular Movements: Extraocular movements intact. Pupils: Pupils are equal, round, and reactive to light. Cardiovascular: Rate and Rhythm: Normal rate and regular rhythm. Pulses: Normal pulses. Heart sounds: Normal heart sounds. Pulmonary: Effort: Pulmonary effort is normal. Breath sounds: Normal breath sounds. Abdominal: General: Abdomen is flat. Bowel sounds are normal. There is no distension. Palpations: Abdomen is soft. Tenderness: There is no abdominal tenderness. Musculoskeletal: General: Normal range of motion. Cervical back: Normal range of motion and neck supple. No rigidity. No muscular tenderness. Right lower leg: No edema. Left lower leg: No edema. Skin: General: Skin is warm and dry. Capillary Refill: Capillary refill takes less than 2 seconds. Comments: Diffuse contact dermatitis over trunk and extremities Neurological: General: No focal deficit present. Mental Status: She is alert. Cranial Nerves: No cranial nerve deficit. Psychiatric: Mood and Affect: Mood normal. Behavior: Behavior normal. Thought Content: Thought content normal. Procedures Radiology/EKG/Labs: ED Course: Appropriate laboratory and radiology studies reviewed Medications dexamethasone (DECADRON) injection 10 mg (10 mg Intramuscular Given 10/11/21 0753) Patient discharged on a prednisone taper ED Clinical Impression: Final diagnoses: Contact dermatitis due to poison jeff (Primary) Condition at Discharge/Transfer from Department: Stable This chart was completed using voice recognition technology and may contain unintended errors Matthew Salas MD 10/14/21628 documented in this encounter Plan of Treatment Upcoming Encounters Date Type Department Care Team (Late st Contact Info) Description 04/24/2024 10:45 AM EST Clinical Support [facility] [address] [place] [address] documented as of this encounter Goals Goal Patient Goal Type Associated Problems Recent Progress Patient-Stated? Author Maintain a healthy diet, exercise regularly and maintain an ideal body weight General No Thea Rubio MD Stay Tobacco Free Lifestyle No Thea Rubio MD documented as of this encounter Visit Diagnoses Diagnosis Contact dermatitis due to poison jeff- Primary Contact dermatitis and other eczema due to plants (except food) documented in this encounter Administered Medications Inactive Administered Medications - up to 1 most recent administrations Medication Order MAR Action Action Date Dose Rate Site dexamethasone (DECADRON) injection 10 mg 10 mg, Intramuscular, ONCE, 1 dose, On Stephanie 10/11/21 at 0745 Given 10/11/2021 7:53 AM EDT 10 mg Left Deltoid documented in this encounter Active and Recently Administered Medications Times are shown in EDT. Scheduled Medication Order 10/09/2021 10/10/2021 10/11/2021 dexamethasone (DECADRON) injection 10 mg (COMPLETED) 10 mg, Intramuscular, ONCE, 1 dose, On Stephanie 10/11/21 at 0745 0753 (Given - Provid er: Washington Encinas RN) documented in this encounter Additional Health Concerns Assessment Noted Time PHQ-9 Depression Total Score: 2 10/07/19 18 8:00 AM EDT PHQ-2 Depression Total Score: 2 10/07/19 18 8:00 AM EDT documented as of this encounter Care Teams Manual Winder Relationship Specialty Start Date End Date Thea Rubio MD PCP - General Family Medicine 09/13/14 07/16/22 Abdifatah Uriarte MD [address] [place] [address] [place] [address] Consulting Physician Obstetrics & Gynecology-Gynecologic Oncology 12/16/19 documented as of this encounter
--- OUTSIDE RECORDS SUMMARY | 2024-03-14 18:16 | XMS_ITS | Encounter Summary ---
Author Organization [place] [address] Care Team Providers Care Cabinet Builder Name Role Phone Thea Rubio MD Primary Care Provider +1- [phone] Abdifatah Uriarte MD Unavailable [phone] Encounter Details Date Type Department Care Team (Late st Contact Info) Description 09/11/2021 Orders Only [facility] [place] [address] [place], [place] [id number] Shavon Pyle MA Palpitations Social History Tobacco Use Types Packs/Day Years [...] by mouth daily. 30 Tablet 5 09/11/2021 03/12/2022 documented in this encounter Plan of Treatment Upcoming Encounters Date Type Department Care Team (Late st Contact Info) Description 04/24/2024 10:45 AM EST Clinical Support [facility] [address] [place] [address] documented as of this encounter [...] Oral Tablet Sustained Release 24 hrIndications:Palpitatio ns TAKE ONE TABLET BY MOUTH DAILY Reorder 03/08/2021 09/11/2021 documented as of this encounter Additional Health Concerns Assessment Noted Time PHQ-9 Depression Total Score: 2 10/07/19 18 8:00 AM EDT PHQ-2 Depression Total Score: 2 10/07/19 18 8:00 AM EDT documented as of this encounter Care Teams Cabinet Builder Relationship Specialty Start Date End Date Thea Rubio MD PCP - General Family Medicine 09/13/14 07/16/22 Abdifatah Uriarte MD [address] [place] [address] [place] [address] Consulting Physician Obstetrics & Gynecology-Gynecologic Oncology 12/16/19 documented as of this encounter
--- OUTSIDE RECORDS SUMMARY | 2024-03-14 18:16 | XMS_ITS | Encounter Summary ---
Author Organization [place] [address] Care Team Providers Care Charity Fundraiser Name Role Phone Thea Rubio MD Primary Care Provider +1- [phone] Abdifatah Uriarte MD Unavailable [phone] Reason for Visit * Reason Comments Injections Encounter Details Date Type Department Care Team (Latest Contact Info) Description 04/22/2022 9:00 AM EST Clinical Support [facility] [address] [place] [phone] Louann Mccray MA Excessive and frequent [...] [facility] [address] [place] [phone] documented as of this encounter Goals Goal [...] 150 mg, Intramuscular, ONCE, 1 dose, On Fri04/22/22 at 0800, Dx: 1. Excessive and frequent menstruationIndications:Exce ssive and frequent menstruation Given 04/22/2022 7:47 AM EST 150 mg Left Deltoid documented in this encounter Additional Health Concerns Assessment Noted Time PHQ-9 Depression Total Score: 2 10/07/19 18 8:00 AM EDT PHQ-2 Depression Total Score: 2 10/07/19 18 8:00 AM EDT documented as of this encounter Care Teams Charity Fundraiser Relationship Specialty Start Date End Date Thea Rubio MD PCP - General Family Medicine 09/13/14 07/16/22 Abdifatah Uriarte MD [address] [facility] [place] [address] Consulting Physician Obstetrics & Gynecology-Gynecologic Oncology 12/16/19 documented as of this encounter
--- OUTSIDE RECORDS SUMMARY | 2024-03-14 18:16 | XMS_ITS | Encounter Summary ---
Author Organization [place] [address] Care Team Providers Care Farmer Cash Grain Name Role Phone Thea Rubio MD Primary Care Provider +1- [phone] Abdifatah Uriarte MD Unavailable [phone] Reason for Visit * Reason Comments Medication Refill Encounter Details Date Type Department Care Team (Late Contact Info) Description 04/18/2022 Refill [facility] [address] [place] [phone] Misty Gillespie MD [address] [place] [address] Medication Refill Social History Tobacco Use Types [...] 04/24/2024 10:45 AM EST Clinical Support [facility] [address] [place] [address] documented as of this encounter [...] documented as of this encounter Care Teams Farmer Cash Grain Relationship Specialty Start Date End Date Thea Rubio MD PCP - General Family Medicine 09/13/14 07/16/22 Abdifatah Uriarte MD [address] [place] [address] [place] [phone] Consulting Physician Obstetrics & Gynecology-Gynecologic Oncology 12/16/19 documented as of this encounter
--- OUTSIDE RECORDS SUMMARY | 2024-03-14 18:16 | XMS_ITS | Encounter Summary ---
Author Organization [place] [address] Care Team Providers Care Bench Worker Name Role Phone Thea Rubio MD Primary Care Provider +1- [phone] Abdifatah Urairte MD Unavailable [phone] Reason for Visit * Reason Comments Medication Refill Encounter Details Date Type Department Care Team (Late st Contact Info) Description 01/08/[address] [facility] [address] [place] [phone] Misty Gillespie MD [address] [place] [address] Medication Refill Social History Tobacco Use Types [...] Date medroxyPROGESTERo ne (DEPO-PROVERA) 150 mg/mL IM Syringe INJECT 1 SYRINGE INTRAMUSCULARLY ONCE FOR 1 DOSE 1 mL 2 08/26/19 24 documented in this encounter Plan of Treatment Upcoming Encounters Date Type Department Care Team (Late st Contact Info) Description 04/24/2024 10:45 AM EST Clinical Support [facility] [address] [place] [address] documented as of this encounter [...] te medroxyPROGESTERone (DEPO-PROVERA) 150 mg/mL IM Syringe USE DIRECTED INTRAMUSCULARLY FOR 1 DOSE 08/15/2021 01/08/2022 documented as of this encounter Additional Health Concerns Assessment Noted Time PHQ-9 Depression Total Score: 2 10/07/19 18 8:00 AM EDT PHQ-2 Depression Total Score: 2 10/07/19 18 8:00 AM EDT documented as of this encounter Care Teams Bench Worker Relationship Specialty Start Date End Date Thea Rubio MD PCP - General Family Medicine 09/13/14 07/16/22 Abdifatah Uriarte MD [address] [place] [address] [place] [address] Consulting Physician Obstetrics & Gynecology-Gynecologic Oncology 12/16/19 documented as of this encounter
--- OUTSIDE RECORDS SUMMARY | 2024-03-14 18:16 | XMS_ITS | Encounter Summary ---
Author Organization [place] [address] Care Team Providers Care Assistant Director Of Admissions Name Role Phone Thea Rubio MD Primary Care Provider [phone]- [phone] Abdifatah Uriarte MD Unavailable [phone] Reason for Visit * Reason Comments Injections Encounter Details Date Type Department Care Team (Latest Contact Info) Description 11/07/2021 9:00 AM EDT Clinical Support [facility] [address] [place] [phone] Excessive and frequent menstruation Social History Tobacco Use Types Packs/Day Years [...] 04/24/2024 10:45 AM EST Clinical Support [facility] [address] [place] [address] documented as of this encounter [...] 150 mg, Intramuscular, ONCE, 1 dose, On Fri11/07/21 at 0900, Dx: 1. Excessive and frequent menstruationIndications:Exce ssive and frequent menstruation Given 11/07/2021 8:54 AM EDT 150 mg Left Deltoid documented in this encounter Additional Health Concerns Assessment Noted Time PHQ-9 Depression Total Score: 2 10/07/19 18 8:00 AM EDT PHQ-2 Depression Total Score: 2 10/07/19 18 8:00 AM EDT documented as of this encounter Care Teams Assistant Director Of Admissions Relationship Specialty Start Date End Date Thea Rubio MD PCP - General Family Medicine 09/13/14 07/16/22 Abdifatah Uriarte MD [address] [place] [address] [place] [address] Consulting Physician Obstetrics & Gynecology-Gynecologic Oncology 12/16/19 documented as of this encounter
--- OUTSIDE RECORDS SUMMARY | 2024-03-14 18:16 | XMS_ITS | Encounter Summary ---
Author Organization [place] [address] Care Team Providers Care Metal Sprayer Name Role Phone Thea Rubio MD Primary Care Provider +1- [phone] Abdifatah Uriarte MD Unavailable [phone] Reason for Visit * Reason Comments Medication Refill Encounter Details Date Type Department Care Team (Late st Contact Info) Description 11/07/2021 Refill [facility] [place] [address] [place] [address] Migue Anne MD [address] [place] [address] Medication Refill Social History Tobacco Use Types [...] tablet by mouth once daily 90 Tablet 11/08/2021 02/14/2022 documented in this encounter Plan of Treatment Upcoming Encounters Date Type Department Care Team (Late st Contact Info) Description 04/24/2024 10:45 AM EST Clinical Support [facility] [address] [place] [address] documented as of this encounter [...] Take 1 tablet by mouth once daily 05/04/2021 11/08/2021 documented as of this encounter Additional Health Concerns Assessment Noted Time PHQ-9 Depression Total Score: 2 10/07/19 18 8:00 AM EDT PHQ-2 Depression Total Score: 2 10/07/19 18 8:00 AM EDT documented as of this encounter Care Teams Metal Sprayer Relationship Specialty Start Date End Date Thea Rubio MD PCP - General Family Medicine 09/13/14 07/16/22 Abdifatah Uriarte MD [address] [place] [address] [place] [address] Consulting Physician Obstetrics & Gynecology-Gynecologic Oncology 12/16/19 documented as of this encounter
--- OUTSIDE RECORDS SUMMARY | 2024-03-14 18:16 | XMS_ITS | Encounter Summary ---
Author Organization [place] [address] Care Team Providers Care Bus Cleaner Name Role Phone Thea Rubio MD Primary Care Provider +1- [phone] Abdifatah Uriarte MD Unavailable [phone] Reason for Visit * Reason Comments Medication Refill Encounter Details Date Type Department Care Team (Late st Contact Info) Description 05/19/2022 Refill [facility] [address] [place] [address] Migue Anne MD [address] [place] [address] Medication Refill Social History Tobacco Use Types [...] mouth once daily 90 Tablet 05/20/2022 08/19/2022 documented in this encounter Plan of Treatment Upcoming Encounters Date Type Department Care Team (Late st Contact Info) Description 04/24/2024 10:45 AM EST Clinical Support [facility] [address] [place] [address] documented as of this encounter [...] Take 1 tablet by mouth once daily 02/14/2022 05/20/2022 documented as of this encounter Additional Health Concerns Assessment Noted Time PHQ-9 Depression Total Score: 2 10/07/19 18 8:00 AM EDT PHQ-2 Depression Total Score: 2 10/07/19 18 8:00 AM EDT documented as of this encounter Care Teams Bus Cleaner Relationship Specialty Start Date End Date Thea Rubio MD PCP - General Family Medicine 09/13/14 07/16/22 Abdifatah Uriarte MD [address] [place] [address] [place] [address] Consulting Physician Obstetrics & Gynecology-Gynecologic Oncology 12/16/19 documented as of this encounter
--- OUTSIDE RECORDS SUMMARY | 2024-03-14 18:16 | XMS_ITS | Encounter Summary ---
Author Organization [place] [address] Care Team Providers Care Chief Gauger Name Role Phone hTea Rubio MD Primary Care Provider +1- [phone] Abdifatah Uriarte MD Unavailable [phone] Reason for Visit * Reason Comments Medication Refill Encounter Details Date Type Department Care Team (Late st Contact Info) Description 02/13/2022 Refill [facility] [place] [address] [place] [address] Migue Anne MD [address] [place] [address] Medication Refill Social History Tobacco Use Types [...] tablet by mouth once daily 90 Tablet 02/14/2022 05/20/2022 documented in this encounter Plan of Treatment Upcoming Encounters Date Type Department Care Team (Late st Contact Info) Description 04/24/2024 10:45 AM EST Clinical Support [facility] [address] [place] [address] documented as of this encounter [...] Take 1 tablet by mouth once daily 11/08/2021 02/14/2022 documented as of this encounter Additional Health Concerns Assessment Noted Time PHQ-9 Depression Total Score: 2 10/07/19 18 8:00 AM EDT PHQ-2 Depression Total Score: 2 10/07/19 18 8:00 AM EDT documented as of this encounter Care Teams Chief Gauger Relationship Specialty Start Date End Date Thea Rubio MD PCP - General Family Medicine 09/13/14 07/16/22 Abdifatah Uriarte MD [address] [place] [address] [place] [address] Consulting Physician Obstetrics & Gynecology-Gynecologic Oncology 12/16/19 documented as of this encounter
--- OUTSIDE RECORDS SUMMARY | 2024-03-14 18:16 | XMS_ITS | Encounter Summary ---
Author Organization [place] [address] Care Team Providers Care Winding Lathe Operator Name Role Phone Thea Rubio MD Primary Care Provider [phone]- [phone] Abdifatah Uriarte MD Unavailable [phone] Encounter Details Date Type Department Care Team (Late st Contact Info) Description 11/07/2021 Orders Only [facility] [address] [place] [phone] Misty Gillespie MD [address] [place] [address] Excessive and frequent menstruation Social History Tobacco [...] ML INTRAMUSCULARLY FOR 1 DOSE 1 mL 2 04/18/20 22 documented in this encounter Plan of Treatment Upcoming Encounters Date Type Department Care Team (Late st Contact Info) Description 04/24/2024 10:45 AM EST Clinical Support [facility] [address] [place] [address] documented as of this encounter [...] ONE ML INTRAMUSCULARLY FOR 1 DOSE Reorder 04/30/2021 11/07/2021 documented as of this encounter Additional Health Concerns Assessment Noted Time PHQ-9 Depression Total Score: 2 10/07/19 18 8:00 AM EDT PHQ-2 Depression Total Score: 2 10/07/19 18 8:00 AM EDT documented as of this encounter Care Teams Winding Lathe Operator Relationship Specialty Start Date End Date Thea Rubio MD PCP - General Family Medicine 09/13/14 07/16/22 Abdifatah Uriarte MD [address] [place] [address] [place] [address] Consulting Physician Obstetrics & Gynecology-Gynecologic Oncology 12/16/19 documented as of this encounter
--- OUTSIDE RECORDS SUMMARY | 2024-03-14 18:16 | XMS_ITS | Encounter Summary ---
Author Organization [place] [address] Care Team Providers Care Pump Attendant Name Role Phone Thea Rubio MD Primary Care Provider [phone]- [phone] Abdifatah Uriaret MD Unavailable [phone] Reason for Visit * Reason Comments Injections Encounter Details Date Type Department Care Team (Latest Contact Info) Description 12/21/2020 10:00 AM EDT Clinical Support [facility] [address] [place] [phone] Chelsea Agee RMA Excessive or frequent menstruation (Primary Dx) Social History Tobacco [...] Exposure Response Date Recorded In the last month, have you been in contact with someone who was confirmed or suspected to have Coronavirus / COVID-19? No / Unsure 12/20/2020 3:59 PM EDT documented as of this encounter Plan of Treatment Upcoming Encounters Date Type Department Care Team (Late st Contact Info) Description 04/24/2024 10:45 AM EST Clinical Support [facility] [address] [place] [address] documented as of this encounter Goals Goal Patient Goal Type Associated Problems Recent Progress Patient-Stated? Author Maintain a healthy diet, exercise regularly and maintain an ideal body weight General No Thea Rubio MD Stay Tobacco Free Lifestyle No Thea Rubio MD documented as of this encounter Visit Diagnoses Diagnosis Excessive or frequent menstruation- Primary documented in this encounter Administered Medications Inactive Administered Medications - up to 1 most recent administrations Medication Order MAR Action Action Date Dose Rate Site medroxyPROGESTERone (DEPO-PROVERA) injection 150 mg 150 mg, Intramuscular, ONCE, 1 dose, On Stephanie 12/21/20 at 1545, Dx: 1. Excessive or frequent menstruationIndications:Exce ssive or frequent menstruation Given 12/21/2020 3:38 PM EDT 150 mg Left Deltoid documented in this encounter Orders Medications Ordered That Jair ht Not Have Been Administered Count Last Ordered Date First Ordered Date medroxyPROGESTERone (DEPO-WY OVERA) injection 150 mg 1 12/21/2020 documented in this encounter Additional Health Concerns Assessment Noted Time PHQ-9 Depression Total Score: 2 10/07/19 18 8:00 AM EDT PHQ-2 Depression Total Score: 2 10/07/19 18 8:00 AM EDT documented as of this encounter Care Teams Pump Attendant Relationship Specialty Start Date End Date Thea Rubio MD PCP - General Family Medicine 09/13/14 07/16/22 Abdifatah Uriarte MD [address] [facility] [address] Consulting Physician Obstetrics & Gynecology-Gynecologic Oncology 12/16/19 documented as of this encounter
--- OUTSIDE RECORDS SUMMARY | 2024-03-14 18:16 | XMS_ITS | Encounter Summary ---
Author Organization [place] [address] Care Team Providers Care Centrifugal Operator Name Role Phone Thea Rubio MD Primary Care Provider [phone]- [phone] Abdifatah Uriarte MD Unavailable [phone] Reason for Visit * Reason Comments Injections Encounter Details Date Type Department Care Team (Latest Contact Info) Description 03/05/2021 10:00 AM EST Clinical Support [facility] [address] [place] [phone] Chelsea Agee, HERIBERTO Excessive or frequent menstruation (Primary Dx) Social [...] have Coronavirus / COVID-19? No / Unsure 03/05/2021 9:46 AM EST documented as of this encounter Plan of Treatment Upcoming Encounters Date Type Department Care Team (Late st Contact Info) Description 04/24/2024 10:45 AM EST Clinical Support [facility] [address] [place] [address] documented as of this encounter [...] 150 mg, Intramuscular, ONCE, 1 dose, On 03/05/21 at 1000, Dx: 1. Excessive or frequent menstruationIndications:Excess josie or frequent menstruation Given 03/05/2021 9:58 AM EST 150 mg Left Arm documented in this encounter Additional Health Concerns Assessment Noted Time PHQ-9 Depression Total Score: 2 10/07/19 18 8:00 AM EDT PHQ-2 Depression Total Score: 2 10/07/19 18 8:00 AM EDT documented as of this encounter Care Teams Centrifugal Operator Relationship Specialty Start Date End Date Thea Rubio MD PCP - General Family Medicine 09/13/14 07/16/22 Abdifatah Uriarte MD [address] [place] [address] [place] [id number] Consulting Physician Obstetrics & Gynecology-Gynecologic Oncology 12/16/19 documented as of this encounter
--- OUTSIDE RECORDS SUMMARY | 2024-03-14 18:16 | XMS_ITS | Encounter Summary ---
Author Organization [place] [address] Care Team Providers Care Jewelry Casting Model Maker Apprentice Name Role Phone Thea Rubio MD Primary Care Provider [phone]- [phone] Abdifatah Uriarte MD Unavailable [phone] Reason for Visit * Reason Comments Injections Depo-provera Encounter Details Date Type Department Care Team (Latest Contact Info) Description 05/23/2021 3:00 PM EST Clinical Support [facility] [address] [place] [phone] Es Vega MA Excessive and frequent menstruation (Primary Dx) [...] 04/24/2024 10:45 AM EST Clinical Support [facility] [place] [phone] documented as of this encounter Goals Goal [...] 150 mg, Intramuscular, ONCE, 1 dose, On Fri05/23/21 at 1545, Dx: 1. Excessive and frequent menstruationIndications:Exce ssive and frequent menstruation Given 05/23/2021 3:30 PM EST 150 mg Left Deltoid documented in this encounter Additional Health Concerns Assessment Noted Time PHQ-9 Depression Total Score: 2 10/07/19 18 8:00 AM EDT PHQ-2 Depression Total Score: 2 10/07/19 18 8:00 AM EDT documented as of this encounter Care Teams Jewelry Casting Model Maker Apprentice Relationship Specialty Start Date End Date Thea Rubio MD PCP - General Family Medicine 09/13/14 07/16/22 Abdifatah Uriarte MD [address] [facility] [address] Consulting Physician Obstetrics & Gynecology-Gynecologic Oncology 12/16/19 documented as of this encounter
--- OUTSIDE RECORDS SUMMARY | 2024-03-14 18:16 | XMS_ITS | Encounter Summary ---
Author Organization [place] [address] Care Team Providers Care Cracking Still Operator Name Role Phone Thea Rubio MD Primary Care Provider [phone]- [phone] Abdifatah Uriarte MD Unavailable [phone] Reason for Visit * Reason Comments Medication Refill Encounter Details Date Type Department Care Team (Late Contact Info) Description 03/16/2021 Refill [facility] [address] [place] [phone] Misty Gillespie MD [address] [place] [address] Medication Refill Social History Tobacco Use Types [...] have Coronavirus / COVID-19? No / Unsure 03/13/2021 8:42 AM EST documented as of this encounter Plan of Treatment Upcoming Encounters Date Type Department Care Team (Late st Contact Info) Description 04/24/2024 10:45 AM EST Clinical Support [facility] [address] [place] [address] documented as of this encounter Goals Goal Patient Goal Type Associated Problems Recent Progress Patient-Stated? Author Maintain a healthy diet, exercise regularly and maintain an ideal body weight General No Thea Rubio MD Stay Tobacco Free Lifestyle No Thea Rubio MD documented as of this encounter Visit Diagnoses Diagnosis Excessive and frequent menstruation Excessive or frequent menstruation documented in this encounter Additional Health Concerns Assessment Noted Time PHQ-9 Depression Total Score: 2 10/07/19 18 8:00 AM EDT PHQ-2 Depression Total Score: 2 10/07/19 18 8:00 AM EDT documented as of this encounter Care Teams Cracking Still Operator Relationship Specialty Start Date End Date Thea Rubio MD PCP - General Family Medicine 09/13/14 07/16/22 Abdifatah Uriarte MD [address] [place] [address] [place] [address] Consulting Physician Obstetrics & Gynecology-Gynecologic Oncology 12/16/19 documented as of this encounter
--- OUTSIDE RECORDS SUMMARY | 2024-03-14 18:16 | XMS_ITS | Encounter Summary ---
Author Organization [place] [address] Care Team Providers Care Factory Maintenance Manager Name Role Phone Thea Rubio MD Primary Care Provider [phone]- [phone] Abdifatah Uriarte MD Unavailable [phone] Reason for Visit * Reason Comments Consult * Consultation (Routine) - Closed Specialty Diagnoses / Procedures Referred By Amalia tuttle Referred To Contact Obstetrics & Gynecology / Obstetrics and Gynecology Diagnoses Consult for Hyst. , okay to add on per Dr. Gillespie Procedures RETURN TAX ACCOUNTANT VISIT Thea Rubio MD Phone: tel: fax: Misty Gillespie MD [id number] [place] [address] Phone: tel: fax: Referral ID Status Reason Start Date Expiration Date Visits Re quested Visits Authorized [id number] Closed 12/12/2021 01/18/2022 99 99 Encounter Details Date Type Department Care Team (Late st Contact Info) Description 12/12/2021 8:20 AM EDT Office Visit [facility] [address] [place] [phone] Misty Gillespie MD [address] [place] [address] On Depo-Provera for contraception (Primary Dx) Social History Tobacco Use Types [...] Sign Reading Time Taken Comments Blood Pressure 122/82 12/12/2021 8:34 AM EDT Pulse - - Temperature - - Respiratory Rate - - Oxygen Saturation - - Inhaled Oxygen Concentration - - Weight 78.7 kg (173 lb 9.6 oz) 12/12/2021 8:34 A M EDT Height 167.6 cm (5' 6 ) 12/12/2021 8:34 AM EDT Body Mass Index 28.02 12/12/2021 8:34 AM EDT documented in this encounter Progress Notes * Misty Gillespie MD - 12/12/2021 8:20 AM EDT TAX ACCOUNTANT Problem Visit HPI: Patient is a 41 y.o. female here for hysterectomy consultation. Has been on depo provera for 4+ years and continues to be amenorrheic. Says PMD is worried about bone density. Has not had any ill side effects. Is done having children. Does have history of abnormalpap smears. Has annual scheduled in a few weeks. Past Medical History: Diagnosis Date ??? Abnormal [...] septal occluder ??? CHOLECYSTECTOMY couple mos old. Infant ??? COLONOSCOPY 01/12/2018 Dr. Aaron Rocha, with [facility]. Normal colon ??? UPPER GASTROINTESTINAL ENDOSCOPY [...] Leigha huddleston, (sp ?), causes head aneurysms. Social History Socioeconomic History ??? Marital status: Spouse name: None ??? Number of children: None ??? Years of education: None ??? Highest education level: None Tobacco Use ??? Smoking status: Former Smoker Packs/day: 0.50 Years: 0.20 Pack years: 0.10 Quit date: 04/21/1994 Years since quittin.6 ??? Smokeless tobacco: Never Used Vaping Use ??? Vaping Use: Never used Substance and Sexual Activity ??? Alcohol use: No Alcohol/week: 0.0 oz ??? Drug use: No ??? Sexual activity: Yes Partners: Male control/protection: Injection Current Outpatient Medications on File Prior to Visit Medication Sig Dispense Refill ??? amLODIPine (NORVASC) 2.5 mg Oral Tablet Take 1 tablet by mouth once daily 90 Tablet 0 ??? aspirin 81 mg Oral Tablet, Delayed Release (E.C.) TAKE ONE TABLET BY MOUTH DAILY 90 Tab 2 ??? medroxyPROGESTERone (DEPO-PROVERA) 150 mg/mL IM Suspension INJECT ONE ML INTRAMUSCULARLY FOR 1 DOSE 1 mL 0 ??? medroxyPROGESTERone (DEPO-PROVERA) 150 mg/mL IM Syringe USE DIRECTED INTRAMUSCULARLY FOR 1 DOSE 1 mL 0 ??? metoprolol succinate (TOPROL-XL) 25 mg Oral Tablet Sustained Release 24 hr Take 1 Tablet by mouth daily. 30 Tablet 5 No current facility-administered medications on file prior to visit. Physical Exam BP 122/82 Ht 5' 6 (1.676 m) Wt 173 lb 9.6 oz (78.7 kg) BMI 28.02 kg/m?? General appearance: alert, well appearing, and in no distress. Abdominal exam: soft, nontender, nondistended, no masses or organomegaly. Has horizontal laparotomyscar about 3 fingerbreadths superior to umbilicus extending across entire width of abdomen A/P: 41 y.o. female with 1. On Depo-Provera for contraception Patient wants hysterectomy but is doing well on depo provera without any ill side effects. Discussed low benefit to surgery compared to surgical risks. She has had laparotomy x 2 on upper abdomen which would put her at higher surgical risk for bowel injury. I do not recommend proceeding with surgery for this reason as the risks outweigh the benefits. Discussed her concern of bone density and recommend calcium/vitamin D supplement if she likes. Misty Gillespie MD documented in this encounter Plan of Treatment Upcoming Encounters Date Type Department Care Team (Late st Contact Info) Description 04/24/2024 10:45 AM EST Clinical Support [facility] [address] [place] [address] documented as of this encounter Goals Goal Patient Goal Type Associated Problems Recent Progress Patient-Stated? Author Maintain a healthy diet, exercise regularly and maintain an ideal body weight General No Thea Rubio MD Stay Tobacco Free Lifestyle No Thea Rubio MD documented as of this encounter Visit Diagnoses Diagnosis On Depo-Provera for contraception- Primary documented in this encounter Additional Health Concerns Assessment Noted Time PHQ-9 Depression Total Score: 2 10/07/19 18 8:00 AM EDT PHQ-2 Depression Total Score: 2 10/07/19 18 8:00 AM EDT documented as of this encounter Care Teams Factory Maintenance Manager Relationship Specialty Start Date End Date Thea Rubio MD PCP - General Family Medicine 09/13/14 07/16/22 Abdifatah Uriarte MD [address] [place] [address] [place] [address] Consulting Physician Obstetrics & Gynecology-Gynecologic Oncology 12/16/19 documented as of this encounter
--- OUTSIDE RECORDS SUMMARY | 2024-03-14 18:16 | XMS_ITS | Encounter Summary ---
Author Organization [place] [address] Care Team Providers Care Glass Etcher Helper Name Role Phone Thea Rubio MD Primary Care Provider [phone]- [phone] Abdifatah Uriarte MD Unavailable [phone] Reason for Visit * Reason Comments Medication Refill Encounter Details Date Type Department Care Team (Late st Contact Info) Description 08/14/2021 Refill [facility] [address] [place] [phone] Misty Gillespie MD [address] [place] [address] Medication Refill Social History Tobacco Use Types [...] medroxyPROGESTERo ne (DEPO-PROVERA) 150 mg/mL IM Syringe USE DIRECTED INTRAMUSCULARLY FOR 1 DOSE 1 mL 2 01/09/20 22 documented in this encounter Plan of Treatment Upcoming Encounters Date Type Department Care Team (Late st Contact Info) Description 04/24/2024 10:45 AM EST Clinical Support [facility] [address] [place] [address] documented as of this encounter [...] documented as of this encounter Care Teams Glass Etcher Helper Relationship Specialty Start Date End Date Thea Rubio MD PCP - General Family Medicine 09/13/14 07/16/22 Abdifatah Uriarte MD [address] [place] [address] [place] [address] Consulting Physician Obstetrics & Gynecology-Gynecologic Oncology 12/16/19 documented as of this encounter
--- OUTSIDE RECORDS SUMMARY | 2024-03-14 18:16 | XMS_ITS | Encounter Summary ---
Author Organization [place] [address] Care Team Providers Care Chicken Hanger Name Role Phone Thea Rubio MD Primary Care Provider [phone]- [phone] Abdifatah Uriarte MD Unavailable [phone] Reason for Visit * Reason Comments Medication Refill Encounter Details Date Type Department Care Team (Late st Contact Info) Description 05/03/2021 Refill [facility] [address] [place] [address] Migue Anne MD [address] [place] [address] Medication Refill Social History Tobacco Use Types [...] mouth once daily 90 Tablet 1 05/04/2021 11/08/2021 documented in this encounter Plan of Treatment Upcoming Encounters Date Type Department Care Team (Late st Contact Info) Description 04/24/2024 10:45 AM EST Clinical Support [facility] [address] [place] [address] documented as of this encounter [...] te amLODIPine (NORVASC) 2.5 mg Oral Tablet TAKE ONE TABLET BY MOUTH DAILY 10/30/2020 05/04/2021 documented as of this encounter Additional Health Concerns Assessment Noted Time PHQ-9 Depression Total Score: 2 10/07/19 18 8:00 AM EDT PHQ-2 Depression Total Score: 2 10/07/19 18 8:00 AM EDT documented as of this encounter Care Teams Chicken Hanger Relationship Specialty Start Date End Date Thea Rubio MD PCP - General Family Medicine 09/13/14 07/16/22 Abdifatah Uriarte MD [address] [place] [address] [place] [address] Consulting Physician Obstetrics & Gynecology-Gynecologic Oncology 12/16/19 documented as of this encounter
--- OUTSIDE RECORDS SUMMARY | 2024-03-14 18:16 | XMS_ITS | Encounter Summary ---
Author Organization [place] [place] [address] Care Team Providers Care Open Hearth Laborer Name Role Phone Thea Rubio MD Primary Care Provider [phone]- [phone] Abdifatah Uriarte MD Unavailable [phone] Reason for Visit * Reason Comments Medication Refill Encounter Details Date Type Department Care Team (Late st Contact Info) Description 03/08/2021 Refill [facility] [address] [place] [address] Migue Anne MD [address] [place] [address] Medication Refill Social History Tobacco Use Types [...] AM EST documented as of this encounter Ordered Prescriptions Prescription Sig Dispense Quantity Refills Last Filled Start Date End Date metoprolol succinate (TOPROL-XL) 25 mg Oral Tablet Sustained Release 24 hrIndications:Palp itations TAKE ONE TABLET BY MOUTH DAILY 30 Tablet 5 03/08/2021 09/11/2021 documented in this encounter Miscellaneous Notes * Telephone Encounter - Heather Holden LPN - 03/08/2021 1:39 PM EST Office visit 03/13/21 documented in this encounter Plan of Treatment Upcoming Encounters Date Type Department Care Team (Late st Contact Info) Description 04/24/2024 10:45 AM EST Clinical Support [facility] [address] [place] [address] documented as of this encounter [...] 25 mg Oral Tablet Sustained Release 24 hrIndications:Palpitation s Take 1 Tab by mouth daily. 09/12/2020 03/08/2021 documented as of this encounter Additional Health Concerns Assessment Noted Time PHQ-9 Depression Total Score: 2 10/07/19 18 8:00 AM EDT PHQ-2 Depression Total Score: 2 10/07/19 8:00 AM EDT documented as of this encounter Care Teams Open Hearth Laborer Relationship Specialty Start Date End Date Thea Rubio MD PCP - General Family Medicine 09/13/14 07/16/22 Abdifatah Uriarte MD [address] [facility] [place] [phone] Consulting Physician Obstetrics & Gynecology-Gynecologic Oncology 12/16/19 documented as of this encounter
--- OUTSIDE RECORDS SUMMARY | 2024-03-14 18:16 | XMS_ITS | Encounter Summary ---
Author Organization [place] [address] Care Team Providers Care Framing Mill Operator Helper Name Role Phone Thea Rubio MD Primary Care Provider [phone]- [phone] Abdifatah Uriarte MD Unavailable [phone] Encounter Details Date Type Department Care Team (Latest Contact Info) Description 10/10/2021 8:45 AM EDT - 10/10/2021 11:59 PM EDT Hospital Encounter [facility] [address] [place] [address] ASD (atrial septal defect) Discharge Disposition: Home or Self Care Social [...] once daily 90 Tablet 1 05/04/2021 11/09/19 medroxyPROGESTE Abelardo (DEPO-PROVERA) 150 mg/mL IM Syringe USE DIRECTED INTRAMUSCULARLY FOR 1 DOSE 1 mL 08/15/2021 01/09/20 metoprolol succinate (TOPROL-XL) 25 mg Oral Tablet Sustained Release 24 hrIndications:P alpitations Take 1 Tablet by mouth daily. 30 Tablet 5 09/11/2021 03/12/20 documented as of this encounter Discharge Disposition Disposition Code Departure Means Destination Home or Self Care documented in this encounter Plan of Treatment Upcoming Encounters Date Type Department Care Team (Late st Contact Info) Description 04/24/2024 10:45 AM EST Clinical Support [facility] [address] [place] [address] documented as of this encounter Goals Goal Patient Goal Type Associated Problems Recent Progress Patient-Stated? Author Maintain a healthy diet, exercise regularly and maintain an ideal body weight General No Thea Rubio MD Stay Tobacco Free Lifestyle No Thea Rubio MD documented as of this encounter Procedures Procedure Name Priority Date/Time Associated Diagnosis Comments LIPID PANEL REFLEX Routine 10/10/2021 8: 52 AM EDT ASD (atrial septal defect) TSH REFLEX Routine 10/10/2021 8:52 AM EDT ASD (atrial septal defect) CBC Routine 10/10/2021 8:52 AM EDT ASD (atrial septal defect) COMPREHENSIVE METABOLIC PANEL Routine 10/10/2021 8:52 AM EDT ASD (atrial septal defect) documented in this encounter Results * TSH REFLEX (10/10/2021 8:52 AM EDT) TSH Reflex 1.720 0.270 - 4.200 mcIU/mL 10/10/2021 3:44 PM EDT [facility] Blood VENOUS BLOOD / Unknown Venipuncture / Unknown 10/10/2021 8:52 AM EDT 10/10/2021 8:52 AM EDT Narrative [facility] - 10/10/2021 3:44 PM EDT Ingestion of abimael doses of biotin (>5 mg/day) taken within 8 hours of drawing blood sample can interfere with this immunoassay test. us Migue Anne MD CHEMISTRY ORDERABLES nal Result [facility] [address] [facility] [facility] , [place] [address] * LIPID PANEL REFLEX (10/10/2021 8:52 AM EDT) Cholesterol 139 <200 mg/dL 10/10/2021 3:44 PM EDT [facility] Comment: < 200 ?Desirable 200 - 239 ? Borderline High >= 240 ?High Triglyceride 98 <150 mg/dL 10/10/2021 3:44 PM EDT [facility] Comment: < 150 ? Normal 150 - 199 ?Borderline High 200 - 499 ?High ??>= 500 ? Very High HDL 42 >=40 mg/dL 10/10/2021 3:44 PM EDT [facility] Comment: ??> 60 ?Optimal 40 - 60 ?Acceptable ?? < 40 ?Low LDL Calculated 79 <100 mg/dL 10/10/2021 3:44 PM EDT [facility] Non-HDL-C Calculated 97 <=129 mg/dL 10/10/2021 3:44 PM EDT [facility] Comment: <130 ?Desirable 130-159 Above Desirable 160-189 Borderline High 190-219 High >= 220 ??Very High Fasting Specimen? No None 022 3:44 PM EDT [facility] Blood VENOUS BLOOD / Unknown Venipuncture / Unknown 10/10/2021 8:52 AM EDT 10/10/2021 8:52 AM EDT Migue Anne MD CHEMISTRY ORDERABLES Fi nal Result [facility] [address] , [place] [address] [facility] [address] [place] [address] * CBC (10/10/2021 8:52 AM EDT) WBC 7.4 3.7 - 10.3 x10(3)/mcL 10/10/2021 3:22 PM EDT [facility] RBC 4.74 3.90 - 5.20 x10(6)/mcL 10/10/2021 3:22 PM EDT [facility] Hgb 13.1 11.2 - 15.7 g/dL 10/10/2021 3:22 PM EDT [facility] Hct 41.0 34.0 - 45.0 % 10/10/2021 3:22 PM EDT [facility] MCV 86.5 80.0 - 100.0 fL 10/10/2021 3:22 PM EDT [facility] MCH 27.6 26.0 - 34.0 pg 10/10/2021 3:22 PM EDT [facility] MCHC 32.0 30.7 - 35.5 g/dL 10/10/2021 3:22 PM EDT [facility] RDW 13.4 <=14.9 % 10/10/2021 3:22 PM EDT [facility] Platelet 341 155 - 369 x10(3)/mcL 10/10/2021 3:22 PM EDT [facility] MPV 9.7 8.8 - 12.5 fL 10/10/2021 3:22 PM EDT [facility] Blood VENOUS BLOOD / Unknown Venipuncture / Unknown 10/10/2021 8:52 AM EDT 10/10/2021 8:52 AM EDT Migue Anne MD HEMATOLOGY ORDERABLES F inal Result [facility] [address] [facility] , [place] [address] * COMPREHENSIVE METABOLIC PANEL (10/10/2021 8:52 AM EDT) Sodium 138 136 - 145 mmol/L 10/10/2021 3:44 PM EDT [facility] Potassium 3.9 3.5 - 5.0 mmol/L 10/10/2021 3:44 PM EDT [facility] Chloride 104 98 - 107 mmol/L 10/10/2021 3:44 PM EDT [facility] Total CO2 22 22 - 29 mmol/L 10/10/2021 3:44 PM EDT [facility] Anion Gap 12 7 - 16 mmol/L 10/10/2021 3:44 PM EDT [facility] Calcium 9.5 8.6 - 10.4 mg/dL 10/10/2021 3:44 PM EDT [facility] Glucose Lvl 79 74 - 100 mg/dL 10/10/2021 3:44 PM EDT [facility] BUN 6 6 - 20 mg/dL 10/10/2021 3:44 PM EDT [facility] Creatinine 0.78 0.51 - 1.30 mg/dL 10/10/2021 3:44 PM EDT [facility] Albumin 4.3 3.5 - 5.2 gm/dL 10/10/2021 3:44 PM EDT [facility] Total Protein 6.8 6.4 - 8.3 gm/dL 10/10/2021 3:44 PM EDT [facility] Bili Total 0.2 0.1 - 1.3 mg/dL 10/10/2021 3:44 PM EDT [facility] ALT 20 <=41 U/L 10/10/2021 3:44 PM EDT [facility] AST 15 <=40 U/L 10/10/2021 3:44 PM EDT [facility] Alk Phos 75 36 - 123 U/L 10/10/2021 3:44 PM EDT [facility] eGFR (CKD-EPIcr 2020) 99 >=60 mL/min/1.7 3 m2 10/10/2021 3:44 PM EDT [facility] Comment:Estimated GFR was ca lculated using the CKD-EPIcr (2020) equation refit without race. The equation is recommended by the National Kidney Foundation - [employer] Nephrology Task Force. Blood VENOUS BLOOD / Unknown Venipuncture / Unknown 10/10/2021 8:52 AM EDT 10/10/2021 8:52 AM EDT us Migue Anne MD CHEMISTRY ORDERABLES Fi nal Result [facility] [address] [place] [address] [facility] [address] [place] [address] documented in this encounter Visit Diagnoses Diagnosis ASD (atrial septal defect) Ostium secundum type atrial septal defect documented in this encounter Additional Health Concerns Assessment Noted Time PHQ-9 Depression Total Score: 2 10/07/19 18 8:00 AM EDT PHQ-2 Depression Total Score: 2 10/07/19 18 8:00 AM EDT documented as of this encounter Care Teams Framing Mill Operator Helper Relationship Specialty Start Date End Date Thea Rubio MD PCP - General Family Medicine 09/13/14 07/16/22 Abdifatah Uriarte MD [address] [facility] [place] [phone] Consulting Physician Obstetrics & Gynecology-Gynecologic Oncology 12/16/19 documented as of this encounter
--- OUTSIDE RECORDS SUMMARY | 2024-03-14 18:16 | XMS_ITS | Encounter Summary ---
Author Organization [place] [address] Care Team Providers Care Supervisor Cab Name Role Phone Thea Rubio MD Primary Care Provider [phone]- [phone] Abdifatah Uriarte MD Unavailable [phone] Reason for Visit * Reason Comments Medication Refill Encounter Details Date Type Department Care Team (Late st Contact Info) Description 03/11/2022 Refill [facility] [address] [place] [address] Migue Anne MD [address] [place] [address] Medication Refill Social History Tobacco Use Types [...] tablet by mouth once daily 90 Tablet 03/12/2022 06/14/2022 documented in this encounter Plan of Treatment Upcoming Encounters Date Type Department Care Team (Late st Contact Info) Description 04/24/2024 10:45 AM EST Clinical Support [facility] [address] [place] [address] documented as of this encounter Goals [...] ns Take 1 Tablet by mouth daily. 09/11/2021 03/12/2022 documented as of this encounter Additional Health Concerns Assessment Noted Time PHQ-9 Depression Total Score: 2 10/07/19 18 8:00 AM EDT PHQ-2 Depression Total Score: 2 10/07/19 18 8:00 AM EDT documented as of this encounter Care Teams Supervisor Cab Relationship Specialty Start Date End Date Thea Rubio MD PCP - General Family Medicine 09/13/14 07/16/22 Abdifatah Uriarte MD [address] [place] [address] [place] [address] Consulting Physician Obstetrics & Gynecology-Gynecologic Oncology 12/16/19 documented as of this encounter
--- OUTSIDE RECORDS SUMMARY | 2024-03-14 18:16 | XMS_ITS | Encounter Summary ---
Author Organization [place] [address] Care Team Providers Care Talent Acquisition Director Name Role Phone Thea Rubio MD Primary Care Provider +1- [phone] Abdifatah Uriarte MD Unavailable [phone] Encounter Details Date Type Department Care Team (Late st Contact Info) Description 10/10/2021 Orders Only [facility] [address] [place] [address] Migue Anne MD [address] [place] [address] ASD (atrial septal defect) (Primary Dx) Social History Tobacco Use Types [...] as of this encounter Progress Notes * Kallie Rocha RN - 10/10/2021 8:49 AM EDT Patient at lab attempting to get labs drawn. Labs . Will reorder. documented in this encounter Plan of Treatment Upcoming Encounters Date Type Department Care Team (Late st Contact Info) Description 04/24/2024 10:45 AM EST Clinical Support [facility]P [facility] [address] [place] [address] documented as of this encounter Goals Goal Patient Goal Type Associated Problems Recent Progress Patient-Stated? Author Maintain a healthy diet, exercise regularly and maintain an ideal body weight General No Thea Rubio MD Stay Tobacco Free Lifestyle No Thea Rbuio MD documented as of this encounter Results * TSH REFLEX (10/10/2021 8:52 AM EDT) TSH Reflex 1.720 0.270 - 4.200 mcIU/mL 10/10/2021 3:44 PM EDT [facility] Blood VENOUS BLOOD / Unknown Venipuncture / Unknown 10/10/2021 8:52 AM EDT 10/10/2021 8:52 AM EDT Narrative PREFERRED [facility] - 10/10/2021 3:44 PM EDT Ingestion of abimael doses of biotin (>5 mg/day) taken within 8 hours of drawing blood sample can interfere with this immunoassay test. us Migue Anne MD CHEMISTRY ORDERABLES nal Result PREFERRED [facility] [address] [facility] , [place] [address] * LIPID PANEL REFLEX (10/10/2021 8:52 AM EDT) Cholesterol 139 <200 mg/dL 10/10/2021 3:44 PM EDT PREFERRED LAB [facility] Comment: < 200 ?Desirable 200 - 239 ? Borderline High >= 240 ?High Triglyceride 98 <150 mg/dL 10/10/2021 3:44 PM EDT PREFERRED LAB [facility] Comment: < 150 ? Normal 150 - 199 ?Borderline High 200 - 499 ?High ??>= 500 ? Very High HDL 42 >=40 mg/dL 10/10/2021 3:44 PM EDT PREFERRED LAB [facility] Comment: ??> 60 ?Optimal 40 - 60 ?Acceptable ?? < 40 ?Low LDL Calculated 79 <100 mg/dL 10/10/2021 3:44 PM EDT PREFERRED LAB [facility] [place] Non-HDL-C Calculated 97 <=129 mg/dL 10/10/2021 3:44 PM EDT PREFERRED LAB [facility] [place] Comment: <130 ?Desirable 130-159 Above Desirable 160-189 Borderline High 190-219 High >= 220 ??Very High Fasting Specimen? No None 022 3:44 PM EDT [facility] Blood VENOUS BLOOD / Unknown Venipuncture / Unknown 10/10/2021 8:52 AM EDT 10/10/2021 8:52 AM EDT Migue Anne MD CHEMISTRY ORDERABLES Fi nal Result PREFERRED LAB [facility], [facility] [address] [facility] , [address] [place] [id number] [facility] 1 [place] [address] * CBC (10/10/2021 8:52 AM EDT) [facility] WBC 7.4 3.7 - 10.3 x10(3)/mcL 10/10/2021 3:22 PM EDT PREFERRED LAB [facility], [facility] RBC 4.74 3.90 - 5.20 x10(6)/mcL 10/10/2021 [...] ORDERABLES F inal Result [facility] [address] [facility] , [place] [address] * COMPREHENSIVE METABOLIC PANEL (10/10/2021 8:52 AM [...] 10/10/2021 3:44 PM EDT [facility] Calcium 9.5 8.6 - 10.4 mg/dL 10/10/2021 3:44 PM EDT [facility] Glucose Lvl 79 74 - 100 mg/dL 10/10/2021 3:44 PM EDT [facility] BUN 6 6 - 20 mg/dL 10/10/2021 3:44 PM EDT [facility] Creatinine 0.78 0.51 - 1.30 mg/dL 10/10/2021 3:44 PM EDT [facility] Albumin 4.3 3.5 - 5.2 gm/dL 10/10/2021 3:44 PM EDT [facility] Total Protein 6.8 6.4 - 8.3 gm/dL 10/10/2021 3:44 PM EDT [facility] Bili Total 0.2 0.1 - 1.3 mg/dL 10/10/2021 3:44 PM EDT [facility] ALT 20 <=41 U/L 10/10/2021 3:44 PM EDT [facility] AST 15 <=40 U/L 10/10/2021 3:44 PM EDT [facility] Alk Phos 75 36 - 123 U/L 10/10/2021 3:44 PM EDT [facility] eGFR (CKD-EPIcr 2020) 99 >=60 mL/min/1.7 3 m2 10/10/2021 3:44 PM EDT [facility] Comment:Estimated GFR was ca lculated using the CKD-EPIcr (2020) equation refit without race. The equation is recommended by the National Kidney Foundation - [place] [employer] Nephrology Task Force. Blood VENOUS BLOOD / Unknown Venipuncture / Unknown 10/10/2021 8:52 AM EDT 10/10/2021 8:52 AM EDT us Migue Anne MD CHEMISTRY ORDERABLES Fi nal Result [facility] [address] [facility] , [place] [address] [address] documented in this encounter Visit Diagnoses Diagnosis ASD (atrial septal defect)- Primary Ostium secundum type atrial septal defect documented in this encounter Additional Health Concerns Assessment Noted Time PHQ-9 Depression Total Score: 2 10/07/19 18 8:00 AM EDT PHQ-2 Depression Total Score: 2 10/07/19 18 8:00 AM EDT documented as of this encounter Care Teams Talent Acquisition Director Relationship Specialty Start Date End Date Thea Rubio MD PCP - General Family Medicine 09/13/14 07/16/22 Abdifatah Uriarte MD [address] [place] [address] [place] [address] Consulting Physician Obstetrics & Gynecology-Gynecologic Oncology 12/16/19 documented as of this encounter
--- OUTSIDE RECORDS SUMMARY | 2024-03-14 18:16 | XMS_ITS | Encounter Summary ---
Author Organization [facility] [place] [address] Care Team Providers Care Newspaper Publisher Name Role Phone Thea Rubio MD Primary Care Provider +1- [phone] Abdifatah Uriarte MD Unavailable [phone] Encounter Details Date Type Department Care Team (Latest Contact Info) Description 03/05/2021 Travel Social History Tobacco Use Types Packs/Day [...] 04/24/2024 10:45 AM EST Clinical Support [facility] [address] [place] [address] documented as of this encounter [...] documented as of this encounter Care Teams Newspaper Publisher Relationship Specialty Start Date End Date Thea Rubio MD PCP - General Family Medicine 09/13/14 07/16/22 Abdifatah Uriarte MD [address] [place] [address] [place] [address] Consulting Physician Obstetrics & Gynecology-Gynecologic Oncology 12/16/19 documented as of this encounter
--- OUTSIDE RECORDS SUMMARY | 2024-03-14 18:16 | XMS_ITS | Encounter Summary ---
Author Organization [place] [address] Care Team Providers Care Cake Washer Name Role Phone Thea Rubio MD Primary Care Provider [phone]- [phone] Abdifatah Uriarte MD Unavailable Reason for Visit * Reason Onset Date Comments Medication Refill 12/20/2020 Encounter Details Date Type Department Care Team (Late st Contact Info) Description 12/20/2020 Refill [facility] [address] [place] [phone] Misty Gillespie MD [address] [place] [address] Medication Refill Social History Tobacco Use Types [...] PM EDT documented as of this encounter Miscellaneous Notes * Telephone Encounter - Christina Florez RN - 12/20/2020 4:09 PM EDT Refill sent * Telephone Encounter - Luba Rain - 12/20/2020 4:00 PM EDT Images from the original note were not included. Please call in depo. Appoitnment tomorrow. medroxyPROGESTERone medroxyPROGESTERone (DEPO-PROVERA) 150 mg/mL IM Suspension INJECT ONE ML INTRAMUSCULARLY FOR 1 DOSE, Disp-1 Vial, R-0, Normal Dispense: 1 Vial Refills: 0 ordered Pharmacy: [address] [id number] [phone] ( ) Order Details Ordered on: 07/13/20 Associated Dx: Excessive and frequent menstruation Authorizing provider: Misty Gillespie MD documented in this encounter Plan of Treatment Upcoming Encounters Date Type Department Care Team (Late st Contact Info) Description 04/24/2024 10:45 AM EST Clinical Support [facility] [address] [place] [address] documented as of this encounter Goals Goal [...] documented as of this encounter Care Teams Cake Washer Relationship Specialty Start Date End Date Thea Rubio MD PCP - General Family Medicine 09/13/14 07/16/22 Abdifatah Uriarte MD [address] [place] [address] [place] [address] Consulting Physician Obstetrics & Gynecology-Gynecologic Oncology 12/16/19 documented as of this encounter
--- OUTSIDE RECORDS SUMMARY | 2024-03-14 18:16 | XMS_ITS | Encounter Summary ---
Author Organization [place] [address] Care Team Providers Care Account Collector Name Role Phone Thea Rubio MD Primary Care Provider [phone]- [phone] Abdifatah Uriarte MD Unavailable [phone] Encounter Details Date Type Department Care Team (Late st Contact Info) Description 02/16/2021 Orders Only [facility]P [facility] [address] [place] [phone] Cassy Trujillo, RN Excessive and frequent menstruation Social History Tobacco [...] ML INTRAMUSCULARLY FOR 1 DOSE 1 mL 04/30/19 22 documented in this encounter Plan of Treatment Upcoming Encounters Date Type Department Care Team (Late st Contact Info) Description 04/24/2024 10:45 AM EST Clinical Support [facility] [address] [place] [address] documented [...] ONE ML INTRAMUSCULARLY FOR 1 DOSE Reorder 12/20/2020 02/16/2021 documented as of this encounter Additional Health Concerns Assessment Noted Time PHQ-9 Depression Total Score: 2 10/07/19 18 8:00 AM EDT PHQ-2 Depression Total Score: 2 10/07/19 18 8:00 AM EDT documented as of this encounter Care Teams Account Collector Relationship Specialty Start Date End Date Thea Rubio MD PCP - General Family Medicine 09/13/14 07/16/22 Abdifatah Uriarte MD [address] [place] [address] [place] [address] Consulting Physician Obstetrics & Gynecology-Gynecologic Oncology 12/16/19 documented as of this encounter
--- OUTSIDE RECORDS SUMMARY | 2024-03-14 18:16 | XMS_ITS | Encounter Summary ---
Author Organization [facility] [place] [address] Care Team Providers Care Trailer Technician Name Role Phone Thea Rubio MD Primary Care Provider +1- [phone] Abdifatah Uriarte MD Unavailable [phone] Reason for Visit * Reason Onset Date Comments Medication Refill 04/18/2022 Encounter Details Date Type Department Care Team (Late st Contact Info) Description 04/18/2022 Refill [facility] [address] [place] [phone] Es Vega MA Medication Refill Social History Tobacco Use Types [...] INTRAMUSCULARLY FOR 1 DOSE 1 mL 3 2 12/14/19 23 documented in this encounter Plan of Treatment Upcoming Encounters Date Type Department Care Team (Late st Contact Info) Description 04/24/2024 10:45 AM EST Clinical Support [facility] [address] [place] [address] documented as of this encounter [...] ONE ML INTRAMUSCULARLY FOR 1 DOSE Reorder 11/07/2021 04/18/2022 documented as of this encounter Additional Health Concerns Assessment Noted Time PHQ-9 Depression Total Score: 2 10/07/19 18 8:00 AM EDT PHQ-2 Depression Total Score: 2 10/07/19 18 8:00 AM EDT documented as of this encounter Care Teams Trailer Technician Relationship Specialty Start Date End Date Thea Rubio MD PCP - General Family Medicine 09/13/14 07/16/22 Abdifatah Uriarte MD [address] [place] [address] [place] [phone] Consulting Physician Obstetrics & Gynecology-Gynecologic Oncology 12/16/19 documented as of this encounter
--- OUTSIDE RECORDS SUMMARY | 2024-03-14 18:16 | XMS_ITS | Encounter Summary ---
Author Organization [facility] [address] Care Team Providers Care Cdc Associate Name Role Phone Thea Rubio MD Primary Care Provider [phone]- [phone] Abdifatah Uriarte MD Unavailable [phone] Reason for Visit * Reason Onset Date Comments Medication Refill 04/30/2021 Encounter Details Date Type Department Care Team (Late Contact Info) Description 04/30/2021 Telephone [facility] [address] [place] [phone] Chelsea Agee, HERIBERTO Medication Refill Social History Tobacco Use Types [...] INTRAMUSCULARLY FOR 1 DOSE 1 mL 2 11/08/19 documented in this encounter Miscellaneous Notes * Telephone Encounter - Chelsea Agee RMA - 04/30/2021 3:47 PM EST Medication sent in, pt aware. documented in this encounter Plan of Treatment Upcoming Encounters Date Type Department Care Team (Late st Contact Info) Description 04/24/2024 10:45 AM EST Clinical Support SEP [facility] [address] [place] [address] documented as of this encounter Goals Goal Patient Goal Type Associated Problems Recent Progress Patient-Stated? Author Maintain a healthy diet, exercise regularly and maintain an ideal body weight General No Thea Rubio MD Stay Tobacco Free Lifestyle No Thea Rubio MD documented as of this encounter Visit Diagnoses Diagnosis Excessive or frequent menstruation- Primary Excessive and frequent menstruation Excessive or frequent menstruation documented in this encounter Discontinued Medications Medication Sig Discontinue Reason Start Date End Da te medroxyPROGESTERone (DEPO-PROVERA) 150 mg/mL IM SuspensionIndications :Excessive and frequent menstruation INJECT ONE ML INTRAMUSCULARLY FOR 1 DOSE Reorder 02/16/2021 04/30/2021 documented as of this encounter Additional Health Concerns Assessment Noted Time PHQ-9 Depression Total Score: 2 10/07/19 18 8:00 AM EDT PHQ-2 Depression Total Score: 2 10/07/19 18 8:00 AM EDT documented as of this encounter Care Teams Cdc Associate Relationship Specialty Start Date End Date Thea Rubio MD PCP - General Family Medicine 09/13/14 07/16/22 Abdifatah Uriarte MD 1 [facility] [place] [address] Consulting Physician Obstetrics & Gynecology-Gynecologic Oncology 12/16/19 documented as of this encounter
--- OUTSIDE RECORDS SUMMARY | 2024-03-14 18:16 | XMS_ITS | Encounter Summary ---
Author Organization [place] [address] Care Team Providers Care Post Doctoral Fellow Name Role Phone Thea Rubio MD Primary Care Provider +1- [phone] Abdifatah Uriarte MD Unavailable [phone] Reason for Visit * Reason Comments Injections Encounter Details Date Type Department Care Team (Latest Contact Info) Description 02/04/2022 9:00 AM EDT Clinical Support [facility] [address] [place] [phone] Louann Mccray MA Excessive and frequent [...] Support [facility] [address] [place] [phone] documented as of this encounter Goals Goal [...] 150 mg, Intramuscular, ONCE, 1 dose, On 02/04/22 at 0930, Dx: 1. Excessive and frequent menstruationIndications:Exce ssive and frequent menstruation Given 02/04/2022 9:20 AM EDT 150 mg Left Deltoid documented in this encounter Additional Health Concerns Assessment Noted Time PHQ-9 Depression Total Score: 2 10/07/19 18 8:00 AM EDT PHQ-2 Depression Total Score: 2 10/07/19 18 8:00 AM EDT documented as of this encounter Care Teams Post Doctoral Fellow Relationship Specialty Start Date End Date Thea Rubio MD PCP - General Family Medicine 09/13/14 07/16/22 Abdifatah Uriarte MD 1 [facility] [place] [address] Consulting Physician Obstetrics & Gynecology-Gynecologic Oncology 12/16/19 documented as of this encounter
--- OUTSIDE RECORDS SUMMARY | 2024-03-14 18:16 | XMS_ITS | Encounter Summary ---
Author Organization [place] [address] Care Team Providers Care Biofuels Plant Operations Engineer Name Role Phone Thea Rubio MD Primary Care Provider +1- [phone] Abdifatah Uriarte MD Unavailable [phone] Reason for Visit * Reason Comments Injections Encounter Details Date Type Department Care Team (Latest Contact Info) Description 08/21/2021 3:30 PM EDT Clinical Support SEP [facility] [address] [place] [phone] Lounan Mccray MA Excessive and frequent menstruation (Primary [...] Clinical Support [facility] [address] [facility] [place] [phone] documented as of this encounter Goals Goal [...] 150 mg, Intramuscular, ONCE, 1 dose, On Fri08/21/21 at 1615, Dx: 1. Excessive and frequent menstruationIndications:Exce ssive and frequent menstruation Given 08/21/2021 4:08 PM EDT 150 mg Left Deltoid documented in this encounter Additional Health Concerns Assessment Noted Time PHQ-9 Depression Total Score: 2 10/07/19 18 8:00 AM EDT PHQ-2 Depression Total Score: 2 10/07/19 18 8:00 AM EDT documented as of this encounter Care Teams Biofuels Plant Operations Engineer Relationship Specialty Start Date End Date Thea Rubio MD PCP - General Family Medicine 09/13/14 07/16/22 Abdifatah Uriarte MD 1 [facility] [place] [address] Consulting Physician Obstetrics & Gynecology-Gynecologic Oncology 12/16/19 documented as of this encounter
--- OUTSIDE RECORDS SUMMARY | 2024-03-14 18:16 | XMS_ITS | Encounter Summary ---
Author Organization [place] [address] Care Team Providers Care Front Office Supervisor Name Role Phone Thea Rubio MD Primary Care Provider [phone]- [phone] Abdifatah Uriarte MD Unavailable [phone] Encounter Details Date Type Department Care Team (Late st Contact Info) Description 12/20/2020 Orders Only [facility] [address] [place] [address] Christina Oreilly RN Excessive and frequent menstruation Social History [...] ML INTRAMUSCULARLY FOR 1 DOSE 1 mL 02/17/20 21 documented in this encounter Plan of Treatment Upcoming Encounters Date Type Department Care Team (Late st Contact Info) Description 04/24/2024 10:45 AM EST Clinical Support [facility] [address] [place] [address] documented as of this encounter [...] ONE ML INTRAMUSCULARLY FOR 1 DOSE Reorder 07/13/2020 12/20/2020 documented as of this encounter Additional Health Concerns Assessment Noted Time PHQ-9 Depression Total Score: 2 10/07/19 18 8:00 AM EDT PHQ-2 Depression Total Score: 2 10/07/19 18 8:00 AM EDT documented as of this encounter Care Teams Front Office Supervisor Relationship Specialty Start Date End Date Thea Rubio MD PCP - General Family Medicine 09/13/14 07/16/22 Abdifatah Uriarte MD [address] [place] [phone] Consulting Physician Obstetrics & Gynecology-Gynecologic Oncology 12/16/19 documented as of this encounter
--- OUTSIDE RECORDS SUMMARY | 2024-03-14 18:16 | XMS_ITS | Encounter Summary ---
Author Organization [place] [address] Care Team Providers Care Insurance Follow Up Representative Name Role Phone Thea Rubio MD Primary Care Provider +1- [phone] Abdifatah Uriarte MD Unavailable [phone] Reason for Visit * Reason Comments Medication Refill Encounter Details Date Type Department Care Team (Late st Contact Info) Description 12/27/2020 Refill [facility] [address] [place] [phone] Misty Gillespie MD [address] [place] [address] Medication Refill Social History Tobacco Use Types [...] 04/24/2024 10:45 AM EST Clinical Support [facility] [address] [place] [address] documented as of this encounter [...] documented as of this encounter Care Teams Insurance Follow Up Representative Relationship Specialty Start Date End Date Thea Rubio MD PCP - General Family Medicine 09/13/14 07/16/22 Abdifatah Uriarte MD [address] [place] [address] [place] [address] Consulting Physician Obstetrics & Gynecology-Gynecologic Oncology 12/16/19 documented as of this encounter
--- OUTSIDE RECORDS SUMMARY | 2024-03-14 18:16 | XMS_ITS | Encounter Summary ---
Author Organization [place] [address] Care Team Providers Care Patient Services Assistant Name Role Phone Thea Rubio MD Primary Care Provider [phone]- [phone] Abdifatah Uriarte MD Unavailable [phone] Reason for Visit * Reason Comments Follow-up atrial septal defect * Consultation (Routine) - Closed Specialty Diagnoses / Procedures Referred By Amalia tuttle Referred To Contact Internal Medicine-Cardiovascular Disease / Cardiology Diagnoses 6-8 month check/Echo 10/04/2020 Procedures OFFICE VISIT Thea Rubio MD Phone: tel: fax: Migue Anne MD [address] [place] [address] Phone: tel: fax: Referral ID Status Reason Start Date Expiration Date Visits Re quested Visits Authorized [id number] Closed 03/06/2021 03/06/2022 99 99 Encounter Details Date Type Department Care Team (Late st Contact Info) Description 03/13/2021 8:45 AM EST [place] [address] Migue Anne MD [address] [place] [address] ASD (atrial septal defect) (Primary Dx); Palpitations; [...] AM EST documented as of this encounter Last Filed Vital Signs Vital Sign Reading Time Taken Comments Blood Pressure 112/70 03/13/2021 8:51 AM EST Pulse 72 03/13/2021 8:51 AM EST Temperature - - Respiratory Rate 16 03/13/2021 8:51 AM EST Oxygen Saturation - - Inhaled Oxygen Concentration - - Weight 78.6 kg (173 lb 3.2 oz) 03/13/2021 8:51 A M EST Height 166.4 cm (5' 5.5 ) 03/13/2021 8:51 AM EST Body Mass Index 28.38 03/13/2021 8:51 AM EST documented in this encounter Progress Notes * Migue Anne MD - 03/13/2021 8:45 AM EST Cardiology Follow Up Visit Name: Gardenia Childress : 1980 Referring Physician Thea Rubio MD Reason for Follow-up Chest Brennan, ASD, GAMING HPI 41 y.o. female is seen for regarding h/o chronic chest pain and h/o ASD closure and GAMING. She has continued to gain a little weight and feels related to BCP. She has rare episode of fleeting chest pain but no change in pattern. Blood pressure has been well controlled. ROS Positive: weight gain Denies: Change in vision, headache, fever, chills, nausea, vomiting, anorexia, diarrhea, change in bowel or bladder habits. No palpitations, lightheadedness, dizziness, syncope, or near syncope. No extreme fatigue, daytime solomence or change in energy level. No significant depression or anhedonia. Current Outpatient Medications Medication Sig Dispense Refill ??? amLODIPine (NORVASC) 2.5 mg Oral Tablet TAKE ONE TABLET BY MOUTH DAILY 30 Tab 5 ??? aspirin 81 mg Oral Tablet, Delayed Release (E.C.) TAKE ONE TABLET BY MOUTH DAILY 90 Tab 2 ??? medroxyPROGESTERone (DEPO-PROVERA) 150 mg/mL IM Suspension INJECT ONE ML INTRAMUSCULARLY FOR 1 DOSE 1 mL 0 ??? metoprolol succinate (TOPROL-XL) 25 mg Oral Tablet Sustained Release 24 hr TAKE ONE TABLET BY MOUTH DAILY 30 Tablet 5 No current facility-administered medications for this visit. Allergies Allergen Reactions ??? Latex Rash ??? Latex, Natural Rubber Rash ??? Morphine Nausea And Vomiting ??? Metronidazole Rash Objective Vitals: 03/13/21 0851 BP: 112/70 Pulse: 72 Resp: 16 Exam: GENERAL APPEARANCE: In no acute distress [...] No results found for this visit on 03/13/21. Labs Lab Results Component Value Date CHOLESTEROL 137 12/16/2019 CHOLESTEROL 154 05/14/2017 CHOLESTEROL 151 04/22/2017 HDL 55 12/16/2019 HDL 68 05/14/2017 HDL 63 04/22/2017 LDLCALC 67 12/16/2019 LDLCALC 73 05/14/2017 LDLCALC 74 04/22/2017 TRIG 73 12/16/2019 TRIG 67 05/14/2017 TRIG 72 04/22/2017 Lab Results Component Value Date INR 1.06 07/04/2017 Lab Results Component Value Date WBC 5.3 12/16/2019 WBC 6.9 10/09/2018 WBC 6.0 05/19/2018 HGB 13.2 12/16/2019 HGB 12.9 10/09/2018 HGB 12.6 05/19/2018 HCT 39.2 12/16/2019 HCT 39.6 10/09/2018 HCT 38.4 05/19/2018 MCV 87.3 12/16/2019 MCV 87.8 10/09/2018 MCV 86.9 05/19/2018 PLT 296 12/16/2019 PLT 324 10/09/2018 PLT 461 (H) 05/19/2018 No results found for: HGBA1C Lab Results Component Value Date NA 139 12/16/2019 NA 139 10/09/2018 NA 140 05/19/2018 K 3.9 12/16/2019 K 3.5 10/09/2018 K 3.9 05/19/2018 BUN 7 12/16/2019 BUN 6 10/09/2018 BUN 9 05/19/2018 CALCIUM 8.8 12/16/2019 CALCIUM 9.1 10/09/2018 CALCIUM 9.0 05/19/2018 CL 105 12/16/2019 CL 105 10/09/2018 CL 104 05/19/2018 CO2 22 12/16/2019 CO2 23 10/09/2018 CO2 26 05/19/2018 CREATININE 0.66 12/16/2019 CREATININE 0.75 10/09/2018 CREATININE 0.76 05/19/2018 GLU 83 12/16/2019 GLU 89 10/09/2018 GLU 85 05/19/2018 Lab Results Component Value Date ALT 6 10/09/2018 ALT 11 04/14/2018 ALT 9 10/13/2017 AST 13 10/09/2018 AST 15 04/14/2018 AST 14 10/13/2017 ALKPHOS 88 10/09/2018 ALKPHOS 54 04/14/2018 ALKPHOS 53 10/13/2017 Lab Results Component Value Date TSHREFLEX 1.520 12/16/2019 Stress Echo 05/08: 9.8 METs negative ekg and echo. EF 60%. Mild RVD. ASD with left to right interatrial shunting. Mild TR. RVSP 19. Cardiac CT - normal cors but proximal vessels not well visualized. No congenital defects noted ?? WAYNE 05/08: EF 55%. Mild EJFFREY. 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 - empirically treating small vessel dz - ? some improvement on Amlodipine - stable GAMING - suspect related to weight gain ASD S/p Closure 07/06 - No associated cardiac abnormalities on Cardiac CT - s/p ASD closure 07/06 - stable Chronic Migraine ORTEGA's ?? 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 Plan: Continue Amlodipine Encourage more aerobic activity and weigh loss Echo reviwed and stable RTC 9 months P. Dada Anne MD documented in this encounter Plan of Treatment Upcoming Encounters Date Type Department Care Team (Late st Contact Info) Description 04/24/2024 10:45 AM EST Clinical Support [facility] [address] [place] [address] Scheduled Orders Name Type Priority Associated Diagnoses Orde r Schedule COMPREHENSIVE METABOLIC PANEL Lab Routine ASD (atrial septal defect) Palpitations Chest discomfort 1 Occurrences starting 03/13/2021 until 09/11/2021 CBC Lab Routine ASD (atrial septal defect) Palpitations Chest discomfort 1 Occurrences starting 03/13/2021 until 09/11/2021 LIPID SCREEN Lab Routine ASD (atrial septal defect) Palpitations Chest discomfort 1 Occurrences starting 03/13/2021 until 09/11/2021 TSH REFLEX Lab Routine ASD (atrial septal defect) Palpitations Chest discomfort 1 Occurrences starting 03/13/2021 until 09/11/2021 documented as of this encounter Goals Goal Patient Goal Type Associated Problems Recent Progress Patient-Stated? Author Maintain a healthy diet, exercise regularly and maintain an ideal body weight General No Thea Rubio MD Stay Tobacco Free Lifestyle No Thea Rubio MD documented as of this encounter Visit Diagnoses Diagnosis ASD (atrial septal defect)- Primary Ostium secundum type atrial septal defect Palpitations Chest discomfort Other chest pain documented in this encounter Discontinued Medications Medication Sig Discontinue Reason Start Date End Da te cetirizine (ZYRTEC) 10 mg Oral Tablet Take by mouth daily. Patient Reported not taking medication 03/13/2021 documented as of this encounter Additional Health Concerns Assessment Noted Time PHQ-9 Depression Total Score: 2 10/07/19 18 8:00 AM EDT PHQ-2 Depression Total Score: 2 10/07/19 18 8:00 AM EDT documented as of this encounter Care Teams Patient Services Assistant Relationship Specialty Start Date End Date Thea Rubio MD PCP - General Family Medicine 09/13/14 07/16/22 Abdifatah Uriarte MD [address] [place] [address] [place] [address] Consulting Physician Obstetrics & Gynecology-Gynecologic Oncology 12/16/19 documented as of this encounter
--- OUTSIDE RECORDS SUMMARY | 2024-03-14 18:16 | XMS_ITS | Encounter Summary ---
Author Organization [place] [address] Care Team Providers Care Computer Information Systems Professor Name Role Phone Thea Rubio MD Primary Care Provider [phone]- [phone] Abdifatah Uriarte MD Unavailable [phone] Reason for Visit * Reason Onset Date Comments Medication Refill 02/16/2021 Encounter Details Date Type Department Care Team (Late Contact Info) Description 02/16/2021 Telephone [facility] [address] [place] [phone] Misty Gillespie MD [address] [place] [address] Medication Refill Social History Tobacco Use Types [...] Miscellaneous Notes * Telephone Encounter - Cassy Trujillo RN - 02/16/2021 2:31 PM EDT sent * Telephone Encounter - Eli Thorpe - 02/16/2021 2:10 PM EDT Refill depo, inj scheduled for 03/05. Send Rx to [facility] in [place]. documented in this encounter Plan of Treatment Upcoming Encounters Date Type Department Care Team (Late st Contact Info) Description 04/24/2024 10:45 AM EST Clinical Support [facility] [address] [place] [address] documented as of this encounter [...] as of this encounter Care Teams Computer Information Systems Professor Relationship Specialty Start Date End Date Thea Rubio MD PCP - General Family Medicine 09/13/14 07/16/22 Abdifatah Uriarte MD [address] [place] [address] Consulting Physician Obstetrics & Gynecology-Gynecologic Oncology 12/16/19 documented as of this encounter
--- OUTSIDE RECORDS SUMMARY | 2024-03-14 18:16 | XMS_ITS | Encounter Summary ---
Author Organization [place] [address] Care Team Providers Care Code Enforcement Supervisor Name Role Phone Thea Rubio MD Primary Care Provider [phone]- [phone] Abdifatah Uriarte MD Unavailable [phone] Reason for Visit * Reason Comments Atrial Septal Defect 9 month follow up G H pt * Consultation (Routine) - Closed Specialty Diagnoses / Procedures Referred By Amalia tuttle Referred To Contact Internal Medicine-Cardiovascular Disease / Cardiology Diagnoses Palpitations Atrial septal defect 9 month follow up Procedures OFFICE VISIT Thea Rubio MD Phone: tel: fax: Migue Anne MD [address] [place] [address] Phone: tel: fax: Referral ID Status Reason Start Date Expiration Date Visits Re quested Visits Authorized [id number] Closed 12/07/2021 12/07/2022 99 99 Encounter Details Date Type Department Care Team (Latest Contact Info) Description 12/12/2021 10:40 AM EDT Office [place] [address] Ailyn Williamson PA-C ASD (atrial septal defect) (Primary Dx); S/P closure of congenital atrial septal defect by percutaneous transcatheter technique; Thyroid mass Social History Tobacco Use Types Packs/Day Years [...] Reading Time Taken Comments Blood Pressure 112/70 12/12/2021 9:42 AM EDT Pulse 80 12/12/2021 9:42 AM EDT Temperature - - Respiratory Rate - - Oxygen Saturation - - Inhaled Oxygen Concentration - - Weight 78.7 kg (173 lb 9.6 oz) 12/12/2021 9:42 A M EDT Height 167.6 cm (5' 6 ) 12/12/2021 9:42 AM EDT Body Mass Index 28.02 12/12/2021 9:42 AM EDT documented in this encounter Progress Notes * Ailyn Williamson PA-C - 12/12/2021 10:40 AM EDT Cardiology Progress Note Patient Name: Gardenia Childress : 1980 CC: 9 month f/u Chronic CP ASD s/p closure HPI States that she is feeling well. 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 No further issues with CP. Some SOB cont with hills, even small ones, working on building cardio up.Denies H/A's. ROS Denies: fever, chills, nausea, vomiting, dizziness, headaches, diarrhea Past Medical History: Diagnosis Date ??? Abnormal glandular Papanicolaou smear of cervix ??? 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 Biliary atresia ??? Depression ??? Migraines Current Outpatient Medications: ??? amLODIPine (NORVASC) 2.5 mg Oral Tablet, Take 1 tablet by mouth once daily, Disp: 90 Tablet, Rfl: 0 ??? aspirin 81 mg Oral Tablet, Delayed Release (E.C.), TAKE ONE TABLET BY MOUTH DAILY, Disp: 90 Tab, Rfl: 2 ??? medroxyPROGESTERone (DEPO-PROVERA) 150 mg/mL IM Suspension, INJECT ONE ML INTRAMUSCULARLY FOR 1DOSE, Disp: 1 mL, Rfl: 0 ??? medroxyPROGESTERone (DEPO-PROVERA) 150 mg/mL IM Syringe, USE DIRECTED INTRAMUSCULARLY FOR 1 DOSE, Disp: 1 mL, Rfl: 0 ??? metoprolol succinate (TOPROL-XL) 25 mg Oral Tablet Sustained Release 24 hr, Take 1 Tablet by mouth daily., Disp: 30 Tablet, Rfl: 5 Social History Socioeconomic History ??? Marital status: Spouse name: Not on file ??? Number of children: Not on file ??? Years of education: Not on file ??? Highest education level: Not on file Occupational History ??? Not on file Tobacco Use ??? Smoking status: Former Smoker Packs/day: 0.50 Years: 0.20 Pack years: 0.10 Quit date: 04/21/1994 Years since quittin.6 ??? Smokeless tobacco: Never Used Vaping Use ??? Vaping Use: Never used Substance and Sexual Activity ??? Alcohol use: No Alcohol/week: 0.0 oz ??? Drug use: No ??? Sexual activity: Yes Partners: Male control/protection: Injection Other Topics Concern ??? Not on file Social History Narrative ??? Not on file Social Determinants of Health Financial Resource Strain: Not on file Food Insecurity: Not on file Transportation Needs: Not on file Physical Activity: Not on file Stress: Not on file Social Connections: Not on file Intimate Partner Violence: Not on file Housing Stability: Not on file Past Surgical History: Procedure Laterality Date ??? ABDOMEN SURGERY as , with CCX, Appy for bile duct ??? ABDOMINAL EXPLORATION SURGERY 11/07/2016 Median Arcuate Ligament Division Shimul A Parker, MD, for biliary stenosis ??? APPENDECTOMY couple mos old ??? ASD REPAIR 07/09/2017 Amplatzer septal occluder ??? CHOLECYSTECTOMY couple mos old. ??? COLONOSCOPY 01/12/2018 Dr. Aaron Rocha, with [facility]. Normal colon ??? UPPER GASTROINTESTINAL ENDOSCOPY 12/04/2017 at , Dr. Aaron Rocha Allergies Allergen Reactions ??? Latex Rash ??? Latex, Natural Rubber Rash ??? Morphine Nausea And Vomiting ??? Metronidazole Rash Family History Problem Relation Age of Onset [...] Leigha huddleston, (sp ?), causes head aneurysms. Objective Vitals: 12/12/21 0942 BP: 112/70 Pulse: 80 Wt Readings from Last 2 Encounters: 12/12/21 173 lb 9.6 oz (78.7 kg) 12/12/21 173 lb 9.6 oz (78.7 kg) Exam: GENERAL APPEARANCE: Well-developed, In no acute Distress, AxO x4 NECK: No JVD - No Bruits RESPIRATORY: Normal breath sounds bilaterally HEART: Normal S1 S2- No S3, S4 No Murmur, rub or gallop VASCULAR: Normal pulses, equal, bilateral ABDOMEN: Soft, nontender, no organomegaly, no distension EXTREMITIES No edema- No cyanosis Labs Lab Results Component Value Date CHOLESTEROL 139 10/10/2021 HDL 42 10/10/2021 LDLCALC 79 10/10/2021 TRIG 98 10/10/2021 Lab Results Component Value Date INR 1.06 07/04/2017 Lab Results Component Value Date WBC 7.4 10/10/2021 HGB 13.1 10/10/2021 HCT 41.0 10/10/2021 MCV 86.5 10/10/2021 PLT 341 10/10/2021 Lab Results Component Value Date NA 138 10/10/2021 K 3.9 10/10/2021 BUN 6 10/10/2021 CALCIUM 9.5 10/10/2021 CL 104 10/10/2021 CO2 22 10/10/2021 CREATININE 0.78 10/10/2021 GLU 79 10/10/2021 Lab Results Component Value Date ALT 20 10/10/2021 AST 15 10/10/2021 ALKPHOS 75 10/10/2021 Lab Results Component Value Date TSHREFLEX 1.720 10/10/2021 FREET4 1.06 04/23/2016 IMAGING No results found. Results for orders placed during the hospital encounter of 10/06/20 EC ECHOCARDIOGRAM COMPLETE W DOPPLER AND COLOR FLOW MAPPING Impression CONCLUSIONS Normal global left ventricular size, wall thickness, systolic function with no obvious regional wall motion abnormalities. Left Ventricular ejection fraction is estimated at 60-65%. Amplatz device noted in interatrial septum - appearing well seated with no peridevice leak No significant valvular regurgitant lesions. No results found for this or any previous visit. No results found for this or any previous visit. Assessment/Plan: Chronic Chest Pain - no further issues with CP - cont amlodipine and bASA to empirically treat small vessel dz - cont BB - most recent LDL 79 ( 10/10/21)on no statin currently Stress Echo 05/08: 9.8 METs negative ekg and echo. EF 60%. Mild RVD. ASD with left to right interatrial shunting. Mild TR. RVSP 19. ?? Cardiac CT - normal cors but proximal vessels not well visualized. No congenital defects noted ?? WAYNE 05/08: EF 55%. Mild JEFFREY. 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 ?? Echo 07/06:??EF 60-65%, ASD closure device without evidence of residual interatrial shunt ?? Echo 01/06: EF 60%. Amplazter appears well seated in the interatrial septum without evidence of ??residual shunting ?? Cardiac Cath 05/09: Essentially normal epicardial coronary arteries. Normal LV function. No findingsto explain persistent chest pain ?? Echo 10/09: EF 60-65%. Normal size and chamber sizes. Amplatz device noted in interatrial septum appearing well seated with no peridevice leak ASD s/p Closure - most recent ECHO as noted above - plan next ECHO after next yr's OV or as determined necessary per camper assembler Thyroid Mass - no surgery - Bx 2012 - per others - being monitored - TSH 1.72 ion documented in this encounter Plan of Treatment Upcoming Encounters Date Type Department Care Team (Late st Contact Info) Description 04/24/2024 10:45 AM EST Clinical Support [facility] [address] [place] [address] documented as of this encounter Goals Goal Patient Goal Type Associated Problems Recent Progress Patient-Stated? Author Maintain a healthy diet, exercise regularly and maintain an ideal body weight General No Thea Rubio MD Stay Tobacco Free Lifestyle No Thea Rubio MD documented as of this encounter Visit Diagnoses Diagnosis ASD (atrial septal defect)- Primary Ostium secundum type atrial septal defect S/P closure of congenital atrial septal defect by percutaneous transcatheter technique Postsurgical percutaneous transluminal coronary angioplasty status Thyroid mass Unspecified disorder of thyroid documented in this encounter Additional Health Concerns Assessment Noted Time PHQ-9 Depression Total Score: 2 10/07/19 18 8:00 AM EDT PHQ-2 Depression Total Score: 2 10/07/19 18 8:00 AM EDT documented as of this encounter Care Teams Code Enforcement Supervisor Relationship Specialty Start Date End Date Thea Rubio MD PCP - General Family Medicine 09/13/14 07/16/22 Abdifatah Uriarte MD [address] [place] [address] [place] [address] Consulting Physician Obstetrics & Gynecology-Gynecologic Oncology 12/16/19 documented as of this encounter
--- OUTSIDE RECORDS SUMMARY | 2024-03-14 18:16 | XMS_ITS | Encounter Summary ---
Author Organization [facility] [place] [address] Care Team Providers Care Billing Manager Name Role Phone Thea Rubio MD Primary Care Provider [phone] Abdifatah Uriarte MD Unavailable [phone] Encounter Details Date Type Department Care Team (Latest Contact Info) Description 03/13/2021 Travel Social History Tobacco Use Types Packs/Day [...] 04/24/2024 10:45 AM EST Clinical Support [facility] [address] [place] [address] documented as of this encounter [...] documented as of this encounter Care Teams Billing Manager Relationship Specialty Start Date End Date Thea Rubio MD PCP - General Family Medicine 09/13/14 07/16/22 Abdifatah Uriarte MD [address] [place] [address] [place] [address] Consulting Physician Obstetrics & Gynecology-Gynecologic Oncology 12/16/19 documented as of this encounter
--- OUTSIDE RECORDS SUMMARY | 2024-03-14 18:17 | XMS_ITS | Encounter Summary ---
Author Organization [place] [address] Care Team Providers Care Make Up Editor Name Role Phone Thea Rubio MD Primary Care Provider [phone]- [phone] Abdifatah Uriarte MD Unavailable [phone] Reason for Referral * Echo (Routine) - Closed Specialty Diagnoses / Procedures Referred By Contac t Referred To Contact Radiology Diagnoses ASD (atrial septal defect) SOB (shortness of breath) Procedures EC ECHOCARDIOGRAM COMPLETE W DOPPLER AND COLOR FLOW MAPPING Migue Anne MD Phone: tel: fax: Referral ID Status Reason Start Date Expiration Date Visits Re quested Visits Authorized [id number] Closed 08/07/2020 08/07/2022 1 1 Reason for Visit * Echo (Routine) - Closed Specialty Diagnoses / Procedures Referred By Contac t Referred To Contact Radiology Diagnoses ASD (atrial septal defect) SOB (shortness of breath) Procedures EC ECHOCARDIOGRAM COMPLETE W DOPPLER AND COLOR FLOW MAPPING Migue Anne MD Phone: tel: fax: Referral ID Status Reason Start Date Expiration Date Visits Re quested Visits Authorized [id number] Closed 08/07/2020 08/07/2022 1 1 Encounter Details Date Type Department Care Team (Latest Contact Info) Description 10/06/2020 12:47 PM EDT - 10/06/2020 11:59 PM EDT Hospital Encounter [facility] [address] [place] [address] Migue Anne MD [address] [facility] [place] [address] ASD (atrial septal defect); SOB (shortness of breath) Discharge Disposition: Home or Self Care Social [...] have Coronavirus / COVID-19? No / Unsure 10/06/2020 12:45 PM EDT documented as of this encounter Medications at Time of Discharge aspirin 81 mg Oral Tablet, Delayed Release (E.C.)Indications :ASD (atrial septal defect),H/O Amplatzer atrial septal defect closure TAKE ONE TABLET BY MOUTH DAILY 90 Tab 2 03/20/2020 amLODIPine (NORVASC) 2.5 mg Oral Tablet TAKE ONE TABLET BY MOUTH DAILY 30 Tab 1 07/24/2020 10/30/2020 cetirizine (ZYRTEC) 10 mg Oral Tablet Take by mouth daily. 03/13/2021 metoprolol succinate (TOPROL-XL) 25 mg Oral Tablet Sustained Release 24 hrIndications:Pal pitations Take 1 Tab by mouth daily. 30 Tab 5 09/12/2020 03/08/2021 documented as of this encounter Discharge Disposition Disposition Code Departure Means Destination Home or Self Care documented in this encounter Plan of Treatment Upcoming Encounters Date Type Department Care Team (Late st Contact Info) Description 04/24/2024 10:45 AM EST Clinical Support [facility] [address] [place] [address] documented as of this encounter [...] W DOPPLER AND COLOR FLOW MAPPING Routine 10/06/2020 1:38 PM EDT ASD (atrial septal defect) SOB (shortness of breath) documented in this encounter Results * EC ECHOCARDIOGRAM COMPLETE W DOPPLER AND COLOR FLOW MAPPING (10/06/2020 1:38 PM EDT) Ejection Fraction 60-65 % PYRAMIS Anatomical Region Laterality Modality Electrocardiogra phy 10/06/2020 1:03 PM EDT Impressions 10/06/2020 3:34 PM EDT ??CONCLUSIONS ??Normal global left ventricular size, wall thickness, systolic function with no obvious regional wall motion abnormalities. ??Left Ventricular ejection fraction is estimated at 60-65%. ?Amplatz device noted in interatrial septum - appearing well seated with no peridevice leak ??No significant ??valvular regurgitant ??lesions. Narrative Procedure Note Migue Anne MD - 10/06/2020 IMPRESSION CONCLUSIONS Normal global left ventricular size, wall thickness, systolic functionwith no obvious regional wall motion abnormalities. Left Ventricular ejection fraction is estimated at 60-65%. Amplatz device noted in interatrial septum - appearing well seated withno peridevice leak No significant valvular regurgitant lesions. Migue Anne MD IMG ECHO ORDERABLES Fin al Result documented in this encounter Visit Diagnoses Diagnosis ASD (atrial septal defect) Ostium secundum type atrial septal defect SOB (shortness of breath) Shortness of breath documented in this encounter Additional Health Concerns Assessment Noted Time PHQ-9 Depression Total Score: 2 10/07/19 18 8:00 AM EDT PHQ-2 Depression Total Score: 2 10/07/19 18 8:00 AM EDT documented as of this encounter Care Teams Make Up Editor Relationship Specialty Start Date End Date Thea Rubio MD PCP - General Family Medicine 09/13/14 07/16/22 Abdifatah Uriarte MD [address] [place] [address] [place] [address] Consulting Physician Obstetrics & Gynecology-Gynecologic Oncology 12/16/19 documented as of this encounter
--- OUTSIDE RECORDS SUMMARY | 2024-03-14 18:17 | XMS_ITS | Encounter Summary ---
Author Organization [place] [address] Care Team Providers Care Preparation Center Coordinator Name Role Phone Thea Rubio MD Primary Care Provider [phone]- [phone] Abdifatah Uriarte MD Unavailable [phone] Reason for Visit * Reason Comments Injections Encounter Details Date Type Department Care Team (Latest Contact Info) Description 01/24/2020 4:00 PM EDT Clinical Support [facility] [address] [place] [phone] La Flynn MA Excessive and frequent [...] have Coronavirus / COVID-19? No / Unsure 01/24/2020 3:14 PM EDT documented as of this encounter Progress Notes * La Flynn MA - 01/24/2020 4:00 PM EDT Results for orders placed or performed in visit on 01/24/20 POCT URINE TELCOR Result Value Ref Range Preg Test, Ur Negative Pt supplied Depo was given, tolerated well, 150mg, LT deltoid documented in this encounter Plan of Treatment Upcoming Encounters Date Type Department Care Team (Late st Contact Info) Description 04/24/2024 10:45 AM EST Clinical Support [facility] [address] [place] [address] documented as of this encounter Goals Goal Patient Goal Type Associated Problems Recent Progress Patient-Stated? Author Maintain a healthy diet, exercise regularly and maintain an ideal body weight General No Thea Rubio MD Stay Tobacco Free Lifestyle No Thea Rubio MD documented as of this encounter Procedures Procedure Name Priority Date/Time Associated Diagnosis Comments POCT URINE TELCOR Routine 01/24/2020 3:22 PM EDT Excessive and frequent menstruation documented in this encounter Results * POCT URINE TELCOR (01/24/2020 3:22 PM EDT) Preg Test, Ur Negative 01/24/2020 3:29 PM EDT [facility] Urine URINE SPECIMEN COLLECTION / Unknown 01/24/2020 3:22 PM EDT 01/24/2020 3:28 PM EDT [facility] Injection Nurse POINT OF C ARE TEST ORDERABLES Final Result [facility] [address] [place] [address] documented in this encounter Visit Diagnoses Diagnosis Excessive and frequent menstruation- Primary Excessive or frequent menstruation documented in this encounter Administered Medications Inactive Administered Medications - up to 1 most recent administrations Medication Order MAR Action Action Date Dose Rate Site medroxyPROGESTERone (DEPO-PROVERA) injection 150 mg 150 mg, Intramuscular, ONCE, 1 dose, On 01/24/20 at 1545, Dx: 1. Excessive and frequent menstruationIndications:Exce ssive and frequent menstruation Given 01/24/2020 3:42 PM EDT 150 mg Left Deltoid documented in this encounter Additional Health Concerns Assessment Noted Time PHQ-9 Depression Total Score: 2 10/07/19 18 8:00 AM EDT PHQ-2 Depression Total Score: 2 10/07/19 18 8:00 AM EDT documented as of this encounter Care Teams Preparation Center Coordinator Relationship Specialty Start Date End Date Thea Rubio MD PCP - General Family Medicine 09/13/14 07/16/22 Abdifatah Uriarte MD [address] [place] [address] [place] [address] Consulting Physician Obstetrics & Gynecology-Gynecologic Oncology 12/16/19 documented as of this encounter
--- OUTSIDE RECORDS SUMMARY | 2024-03-14 18:17 | XMS_ITS | Encounter Summary ---
Author Organization [place] [address] Care Team Providers Care Web Development Intern Name Role Phone Thea Rubio MD Primary Care Provider [phone]- [phone] Abdifatah Uriarte MD Unavailable [phone] Reason for Visit * Reason Comments Medication Refill Encounter Details Date Type Department Care Team (Late Contact Info) Description 07/13/2020 Refill [facility] [address] [place] [phone] Misty Gillespie MD [address] [place] [address] Medication Refill Social History Tobacco Use Types [...] have Coronavirus / COVID-19? No / Unsure 07/14/2020 1:10 PM EDT documented as of this encounter Ordered Prescriptions Prescription Sig Dispense Quantity Refills Last Filled Start Date End Date medroxyPROGESTERo ne (DEPO-PROVERA) 150 mg/mL IM SuspensionIndicat ions:Excessive and frequent menstruation INJECT ONE ML INTRAMUSCULARLY FOR 1 DOSE 1 Vial 1 12/21/19 21 documented in this encounter Miscellaneous Notes * Telephone Encounter - Es Vega MA - 07/13/2020 7:28 AM EDT Ordered documented in this encounter Plan of Treatment Upcoming Encounters Date Type Department Care Team (Late st Contact Info) Description 04/24/2024 10:45 AM EST Clinical Support [facility] [address] [place] [address] documented as of this encounter [...] Da te medroxyPROGESTERone (DEPO-PROVERA) 150 mg/mL IM SuspensionIndications:Exc essive and frequent menstruation Inject 1 mL into the muscle once for 1 dose. 04/03/2020 07/13/2020 documented as of this encounter Additional Health Concerns Assessment Noted Time PHQ-9 Depression Total Score: 2 10/07/19 18 8:00 AM EDT PHQ-2 Depression Total Score: 2 10/07/19 18 8:00 AM EDT documented as of this encounter Care Teams Web Development Intern Relationship Specialty Start Date End Date Tcheng, Alvena Margarito, MD PCP - General Family Medicine 09/13/14 07/16/22 Abdifatah Uriarte MD [address] [place] [address] [place] [address] Consulting Physician Obstetrics & Gynecology-Gynecologic Oncology 12/16/19 documented as of this encounter
--- OUTSIDE RECORDS SUMMARY | 2024-03-14 18:17 | XMS_ITS | Encounter Summary ---
Author Organization [place] [address] Care Team Providers Care Cashier Payments Received Name Role Phone Thea Rubio MD Primary Care Provider [phone]- [phone] Abdifatah Uriarte MD Unavailable [phone] Reason for Visit * Reason Comments Medication Refill Encounter Details Date Type Department Care Team (Late st Contact Info) Description 07/23/2020 Refill [facility] [address] [place] [address] Migue Anne MD [address] [place] [address] Medication Refill Social History Tobacco Use Types [...] Date amLODIPine (NORVASC) 2.5 mg Oral Tablet TAKE ONE TABLET BY MOUTH DAILY 30 Tab 1 07/24/2020 10/30/2020 documented in this encounter Plan of Treatment Upcoming Encounters Date Type Department Care Team (Late st Contact Info) Description 04/24/2024 10:45 AM EST Clinical Support [facility] [address] [place] [address] documented as of this encounter [...] Tablet TAKE ONE TABLET BY MOUTH DAILY 04/18/2020 07/24/2020 documented as of this encounter Additional Health Concerns Assessment Noted Time PHQ-9 Depression Total Score: 2 10/07/19 18 8:00 AM EDT PHQ-2 Depression Total Score: 2 10/07/19 18 8:00 AM EDT documented as of this encounter Care Teams Cashier Payments Received Relationship Specialty Start Date End Date Thea Rubio MD PCP - General Family Medicine 09/13/14 07/16/22 Abdifatah Uriarte MD [address] [place] [address] [place] [address] Consulting Physician Obstetrics & Gynecology-Gynecologic Oncology 12/16/19 documented as of this encounter
--- OUTSIDE RECORDS SUMMARY | 2024-03-14 18:17 | XMS_ITS | Encounter Summary ---
Author Organization [place] [address] Care Team Providers Care Pharmacist Name Role Phone Thea Rubio MD Primary Care Provider [phone]- [phone] Abdifatah Uriarte MD Unavailable [phone] Reason for Visit * Reason Onset Date Comments Other 12/29/2019 Encounter Details Date Type Department Care Team (Late st Contact Info) Description 12/29/2019 Telephone [facility] [address] [place] [address] Thea Rubio MD [address] [place], [place] [id number] Other Social History Tobacco Use Types Packs/Day Years [...] have Coronavirus / COVID-19? No / Unsure 12/16/2019 12:49 PM EDT documented as of this encounter Miscellaneous Notes * Telephone Encounter - Susan Oliveira RMA - 12/29/2019 6:00 PM EDT Spoke with patient and discussed Dr Rubio's recommendations * Telephone Encounter - Thea Rubio MD - 12/29/2019 10:40 AM EDT Since patient had an abnormal Pap and is seeing the compress engineer, Dr. Gillespie, I would feel much better if she would be getting her shots from Dr. Gillespie. Can she ask long chain dyeing machine operator instead? * Telephone Encounter - Antonietta Richards - 12/29/2019 9:56 AM EDT The patient needs to get her Depo for control. Can we schedule this? documented in this encounter Plan of Treatment Upcoming Encounters Date Type Department Care Team (Late st Contact Info) Description 04/24/2024 10:45 AM EST Clinical Support [facility] [address] [place] [address] documented as of this encounter [...] documented as of this encounter Care Teams Pharmacist Relationship Specialty Start Date End Date Thea Rubio MD PCP - General Family Medicine 09/13/14 07/16/22 Abdifatah Uriarte MD [address] [place] [address] [place] [address] Consulting Physician Obstetrics & Gynecology-Gynecologic Oncology 12/16/19 documented as of this encounter
--- OUTSIDE RECORDS SUMMARY | 2024-03-14 18:17 | XMS_ITS | Encounter Summary ---
Author Organization [facility] [place] [address] Care Team Providers Care Foreclosure Field Inspector Name Role Phone Thea Rubio MD Primary Care Provider [phone]- [phone] Abdifatah Uriarte MD Unavailable [phone] Encounter Details Date Type Department Care Team (Latest Contact Info) Description 08/07/2020 Travel Social History Tobacco Use Types Packs/Day [...] have Coronavirus / COVID-19? No / Unsure 08/07/2020 3:03 PM EDT documented as of this encounter Plan of Treatment Upcoming Encounters Date Type Department Care Team (Late st Contact Info) Description 04/24/2024 10:45 AM EST Clinical Support [facility] [address] [place] [address] documented as of this encounter [...] documented as of this encounter Care Teams Foreclosure Field Inspector Relationship Specialty Start Date End Date Thea Rubio MD PCP - General Family Medicine 09/13/14 07/16/22 Abdifatah Uriarte MD [address] [place] [address] [place] [address] Consulting Physician Obstetrics & Gynecology-Gynecologic Oncology 12/16/19 documented as of this encounter
--- OUTSIDE RECORDS SUMMARY | 2024-03-14 18:17 | XMS_ITS | Encounter Summary ---
Author Organization [facility] [place] [address] Care Team Providers Care Mock Up Builder Name Role Phone Thea Rubio MD Primary Care Provider +1- [phone] Abdifatah Uriarte MD Unavailable [phone] Encounter Details Date Type Department Care Team (Latest Contact Info) Description 07/14/2020 Travel Social History Tobacco Use Types Packs/Day [...] 04/24/2024 10:45 AM EST Clinical Support [facility] [address] [place] [address] documented as of this encounter [...] documented as of this encounter Care Teams Mock Up Builder Relationship Specialty Start Date End Date Thea Rubio MD PCP - General Family Medicine 09/13/14 07/16/22 Abdifatah Uriarte MD [address] [place] [address] [place] [address] Consulting Physician Obstetrics & Gynecology-Gynecologic Oncology 12/16/19 documented as of this encounter
--- OUTSIDE RECORDS SUMMARY | 2024-03-14 18:17 | XMS_ITS | Encounter Summary ---
Author Organization [place] [address] Care Team Providers Care Imaging Technician Name Role Phone Thea Rubio MD Primary Care Provider [phone]- [phone] Abdifatah Uriarte MD Unavailable [phone] Encounter Details Date Type Department Care Team (Latest Contact Info) Description 12/16/2019 1:53 PM EDT - 12/16/2019 2:11 PM EDT Hospital Encounter EDG D-WING [facility] [place] [address] Tailor's bunionette, right; Tailor's bunionette, left; Pain in both feet Discharge Disposition: Home or Self Care Social [...] this encounter Medications at Time of Discharge amLODIPine (NORVASC) 2.5 mg Oral Tablet TAKE ONE TABLET BY MOUTH DAILY 30 Tab 3 12/06/2019 04/18/2020 aspirin 81 mg Oral Tablet, Delayed Release (E.C.)Indications :ASD (atrial septal defect),H/O Amplatzer atrial septal defect closure TAKE ONE TABLET BY MOUTH DAILY 30 Tab 8 07/12/2019 03/20/2020 cetirizine (ZYRTEC) 10 mg Oral Tablet Take by mouth daily. 03/13/2021 documented as of this encounter Discharge Disposition Disposition Code Departure Means Destination Home or Self Care documented in this encounter Plan of Treatment Upcoming Encounters Date Type Department Care Team (Late st Contact Info) Description 04/24/2024 10:45 AM EST Clinical Support [facility] [address] [place] [address] documented as of this encounter Goals Goal Patient Goal Type Associated Problems Recent Progress Patient-Stated? Author Maintain a healthy diet, exercise regularly and maintain an ideal body weight General No Thea Rubio MD Stay Tobacco Free Lifestyle No Thea Rubio MD documented as of this encounter Procedures Procedure Name Priority Date/Time Associated Diagnosis Comments XR FOOT BILATERAL AP LATERAL AND OBLIQUE STANDING Routine 12/16/2019 2:12 PM EDT Tailor's bunionette, right Tailor's bunionette, left Pain in both feet documented in this encounter Results * XR FOOT BILATERAL AP LATERAL AND OBLIQUE STANDING (12/16/2019 2:12 PM EDT) Anatomical Region Laterality Modality Foot Radiographic Kristi ging 12/16/2019 2:12 PM EDT Impressions 12/16/2019 3:31 PM EDT No significant arthritic process or acute bone or soft tissue abnormality. - Narrative 12/16/2019 3:31 PM EDT XR FOOT BILATERAL AP LATERAL AND OBLIQUE STANDING, ??12/16/2019 2:12 PM CLINICAL HISTORY: ??M21.621-Bunionette of right grjr-NWU-81-CM M21.622-Bunionette of left mcef-AQL-58-CM M79.671-Pain in right unfq-ZQS-29-CM M79.672-Pain in left bscv-CZU-90-CM COMPARISON: ??None. PROCEDURE COMMENTS: 3 views each of the right and left foot and toes obtained. FINDINGS: Right: Joint spaces are maintained. No erosions or periostitis. No significant bony or soft tissue finding. Left: Joint spaces are maintained. No erosions or periostitis. No significant bony or soft tissue finding. Procedure Note Lex Maynard MD - 12/16/2019 XR FOOT BILATERAL AP LATERAL AND OBLIQUE STANDING, 12/16/2019 2:12 PM CLINICAL HISTORY: M21.621-Bunionette of right rklz-PUO-50-CM M21.622-Bunionette of left wuiq-ZOI-05-CM M79.671-Pain in right vfty-GAI-23-CM M79.672-Pain in left mhve-VWH-48-CM COMPARISON: None. PROCEDURE COMMENTS: 3 views each of the right and left foot and toesobtained. FINDINGS: Right: Joint spaces are maintained. No erosions or periostitis. No significant bony or soft tissue finding. Left: Joint spaces are maintained. No erosions or periostitis. No significant bony or soft tissue finding. IMPRESSION: No significant arthritic process or acute bone or soft tissue abnormality. - Abdifatah Contreras DPM IMG DIAGNOSTIC IMAGING ORDERA BLES Final Result documented in this encounter Visit Diagnoses Diagnosis Tailor's bunionette, right Tailor's bunionette, left Pain in both feet Pain in limb documented in this encounter Additional Health Concerns Assessment Noted Time PHQ-9 Depression Total Score: 2 10/07/19 18 8:00 AM EDT PHQ-2 Depression Total Score: 2 10/07/19 18 8:00 AM EDT documented as of this encounter Care Teams Imaging Technician Relationship Specialty Start Date End Date Thea Rubio MD PCP - General Family Medicine 09/13/14 07/16/22 Abdifatah Uriarte MD [address] [facility] [place] [address] Consulting Physician Obstetrics & Gynecology-Gynecologic Oncology 12/16/19 documented as of this encounter
--- OUTSIDE RECORDS SUMMARY | 2024-03-14 18:17 | XMS_ITS | Encounter Summary ---
Author Organization [place] [address] Care Team Providers Care Health Occupations Instructor Name Role Phone Thea Rubio MD Primary Care Provider +1- [phone] Abdifatah Uriarte MD Unavailable [phone] Reason for Referral * Echo (Routine) - Closed Specialty Diagnoses / Procedures Referred By Amalia tuttle Referred To Contact Radiology Diagnoses ASD (atrial septal defect) SOB (shortness of breath) Procedures EC ECHOCARDIOGRAM COMPLETE W DOPPLER AND COLOR FLOW MAPPING Migue Anne MD Phone: tel: fax: Referral ID Status Reason Start Date Expiration Date Visits Re quested Visits Authorized [id number] Closed 08/07/2020 08/07/2022 1 1 Reason for Visit * Reason Comments Follow-up 8 mo ck * Consultation (Routine) - Closed Specialty Diagnoses / Procedures Referred By Amalia tuttle Referred To Contact Internal Medicine-Cardiovascula r Disease / Cardiology Diagnoses Personal history of (corrected) congenital malformations of heart and circulatory system Nereida Mendoza 8 mon ck Procedures OFFICE VISIT Thea Rubio MD Phone: tel: fax: Migue Anne MD [address] [place] [address] Phone: tel: fax: Referral ID Status Reason Start Date Expiration Date Visits Re quested Visits Authorized [id number] Closed 12/16/2019 12/15/2020 99 99 Encounter Details Date Type Department Care Team (Late st Contact Info) Description 08/07/2020 3:15 PM EDT Office Visit [facility] [place] [facility] [address] [place] [address] Migue Anne MD [address] [facility] [place] [address] ASD (atrial septal defect) (Primary Dx); Chest discomfort; SOB (shortness of breath) Social History Tobacco Use Types Packs/Day Years [...] Sign Reading Time Taken Comments Blood Pressure 122/86 08/07/2020 3:50 PM EDT Pulse 83 08/07/2020 3:50 PM EDT Temperature - - Respiratory Rate - - Oxygen Saturation - - Inhaled Oxygen Concentration - - Weight 71.8 kg (158 lb 3.2 oz) 08/07/2020 3:50 P M EDT Height 166.4 cm (5' 5.5 ) 08/07/2020 3:50 PM EDT Body Mass Index 25.93 08/07/2020 3:50 PM EDT documented in this encounter Progress Notes * Migue Anne MD - 08/07/2020 3:15 PM EDT Cardiology Follow Up Visit Name: Gardenia Childress : 1980 Referring Physician Thea Rubio MD Reason for Follow-up Chest Brennan, ASD Chief Complaint: GAMING HPI 40 y.o. female is seen for regarding h/o chest pain and h/o ASD closure. States the chest pain has been stable and rarely occurs. She has noted more GAMING when climbing steps. She restart Amlodipine. She recently received a promotion at [employer], now in a less labor intensive job. Admits she has not been able to lose weight. ROS Positive: weight gain Denies: Change in [...] TABLET BY MOUTH DAILY 30 Tab 1 ??? aspirin 81 mg Oral Tablet, Delayed Release (E.C.) TAKE ONE TABLET BY MOUTH DAILY 90 Tab 2 ??? cetirizine (ZYRTEC) 10 mg Oral Tablet Take by mouth daily. ??? medroxyPROGESTERone (DEPO-PROVERA) 150 mg/mL IM Suspension INJECT ONE ML INTRAMUSCULARLY FOR 1 DOSE 1 Vial 0 No current facility-administered medications for this visit. Allergies Allergen Reactions ??? Latex Rash ??? Latex, Natural Rubber Rash ??? Morphine Nausea And Vomiting ??? Metronidazole Rash Objective Vitals: 08/07/20 1550 BP: 122/86 Pulse: 83 Exam: GENERAL APPEARANCE: In no acute distress HEENT: Normocephalic, Atraumatic, Sclera anicteric, Pupils equal, round, and reactive. NECK: No JVD, No Bruit. Carotid upstrokes are full. RESPIRATORY: Normal breath sounds bilaterally with full volume excursion. No rales or wheezing HEART: Normal S1, with split S2. No murmur. VASCULAR: Normal pulses, equal bilaterally. ABDOMEN: Soft, nontender, no organomegaly, no distension. Bowel sounds are normoactive. EXTREMITIES: No edema. Calves are soft No results found for this visit on 08/07/20. Labs Lab Results Component Value Date CHOLESTEROL [...] to right interatrial shunting. Mild TR. RVSP . Cardiac CT - normal cors but proximal [...] function. No findingsto explain persistent chest pain Assessment: Atypical Chest Pain ?? - empirically treating small vessel dz - some improvement on Amlodipine GAMING - ? Weight gain ASD S/p Closure 07/06 - No associated cardiac abnormalities on Cardiac CT - s/p ASD closure 07/06 Chronic Migraine ORTEGA's ?? 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 Leg Cramps Plan: Continue Amlodipine Encourage more aerobic activity and weigh loss Echo RTC 6- 8 months documented in this encounter Miscellaneous Notes * Patient Instructions - Lauren Miles RMA - 08/07/2020 3:15 PM EDT Return to the office in 6-[address] Anne Echocardiogram (ultrasound of the heart) No prep prior to testing (eat and drink as you normally would) Please remember that this is a Hospital Service. Even though it is being performed in our office, it will be billed by the hospital documented in this encounter Plan of Treatment Upcoming Encounters Date Type Department Care Team (Late st Contact Info) Description 04/24/2024 10:45 AM EST Clinical Support [facility] [address] [place] [address] documented as of this encounter [...] Primary Ostium secundum type atrial septal defect Chest discomfort Other chest pain SOB (shortness of breath) Shortness of breath ASD (atrial septal defect) Ostium secundum type atrial septal defect SOB (shortness of breath) Shortness of breath documented in this encounter Discontinued Medications Medication Sig Discontinue Reason Start Date End Da te ranitidine HCl (ZANTAC ORAL) Take 1 Tab by mouth daily. DELETE-Therapy completed 08/07/2020 documented as of this encounter Additional Health Concerns Assessment Noted Time PHQ-9 Depression Total Score: 2 10/07/19 18 8:00 AM EDT PHQ-2 Depression Total Score: 2 10/07/19 18 8:00 AM EDT documented as of this encounter Care Teams Health Occupations Instructor Relationship Specialty Start Date End Date Thea Rubio MD PCP - General Family Medicine 09/13/14 07/16/22 Abdifatah Uriarte MD [address] [place] [address] [place] [id number] Consulting Physician Obstetrics & Gynecology-Gynecologic Oncology 12/16/19 documented as of this encounter
--- OUTSIDE RECORDS SUMMARY | 2024-03-14 18:17 | XMS_ITS | Encounter Summary ---
Author Organization [facility] [place] [address] Care Team Providers Care Motorized Squad Captain Name Role Phone Thea Rubio MD Primary Care Provider +1- [phone] Abdifatah Uriarte MD Unavailable [phone] Encounter Details Date Type Department Care Team (Latest Contact Info) Description 12/20/2020 Travel Social History Tobacco Use Types Packs/Day [...] 04/24/2024 10:45 AM EST Clinical Support [facility] [address] [place] [address] documented as of this encounter [...] documented as of this encounter Care Teams Motorized Squad Captain Relationship Specialty Start Date End Date Thea Rubio MD PCP - General Family Medicine 09/13/14 07/16/22 Abdifatah Uriarte MD [address] [place] [address] [place] [address] Consulting Physician Obstetrics & Gynecology-Gynecologic Oncology 12/16/19 documented as of this encounter
--- OUTSIDE RECORDS SUMMARY | 2024-03-14 18:17 | XMS_ITS | Encounter Summary ---
Author Organization [place] [address] Care Team Providers Care Intermodal Dispatcher Name Role Phone Thea Rubio MD Primary Care Provider +1- [phone] Abdifatah Uriarte MD Unavailable [phone] Reason for Visit * Reason Comments Medication Refill Encounter Details Date Type Department Care Team (Late st Contact Info) Description 03/17/2020 Refill [facility] [facility] [address] [place] [address] Migue Anne MD [address] [place] [address] Medication Refill Social History Tobacco Use Types [...] Refills Last Filled Start Date End Date aspirin 81 mg Oral Tablet, Delayed Release (E.C.)Indications:A SD (atrial septal defect),H/O Amplatzer atrial septal defect closure TAKE ONE TABLET BY MOUTH DAILY 90 Tab 2 03/20/2020 documented in this encounter Plan of Treatment Upcoming Encounters Date Type Department Care Team (Late st Contact Info) Description 04/24/2024 10:45 AM EST Clinical Support [facility] [address] [place] [address] documented as of this encounter Goals Goal Patient Goal Type Associated Problems Recent Progress Patient-Stated? Author Maintain a healthy diet, exercise regularly and maintain an ideal body weight General No Thea Rubio MD Stay Tobacco Free Lifestyle No Thea Rubio MD documented as of this encounter Visit Diagnoses Diagnosis ASD (atrial septal defect) Ostium secundum type atrial septal defect H/O Amplatzer atrial septal defect closure Personal history of surgery to heart and great vessels, presenting hazards to health documented in this encounter Discontinued Medications Medication Sig Discontinue Reason Start Date End Da te aspirin 81 mg Oral Tablet, Delayed Release (E.C.)Indications:ASD (atrial septal defect),H/O Amplatzer atrial septal defect closure TAKE ONE TABLET BY MOUTH DAILY 07/12/2019 03/20/2020 documented as of this encounter Additional Health Concerns Assessment Noted Time PHQ-9 Depression Total Score: 2 10/07/19 18 8:00 AM EDT PHQ-2 Depression Total Score: 2 10/07/19 18 8:00 AM EDT documented as of this encounter Care Teams Intermodal Dispatcher Relationship Specialty Start Date End Date Thea Rubio MD PCP - General Family Medicine 09/13/14 07/16/22 Abdifatah Uriarte MD [address] [place] [address] Consulting Physician Obstetrics & Gynecology-Gynecologic Oncology 12/16/19 documented as of this encounter
--- OUTSIDE RECORDS SUMMARY | 2024-03-14 18:17 | XMS_ITS | Encounter Summary ---
Author Organization [place] [address] Care Team Providers Care Burlap Roll Coverer Name Role Phone Thea Rubio MD Primary Care Provider +1- [phone] Abdifatah Uriarte MD Unavailable [phone] Reason for Visit * Reason Comments Injections Encounter Details Date Type Department Care Team (Latest Contact Info) Description 04/24/2020 3:00 PM EST Clinical Support [facility] [address] [place] [address] Daniela Portillo MA Excessive and frequent menstruation (Primary Dx) [...] have Coronavirus / COVID-19? No / Unsure 04/24/2020 3:04 PM EST documented as of this encounter Progress Notes * Daniela Hernandez MA - 04/24/2020 3:00 PM EST Depo Injection, patient supplied. Left Deltoid, patient tolerated well. [facility] # : [id number] Lot # : [id number] : 04/24/2022 documented in this encounter Plan of Treatment Upcoming Encounters Date Type Department Care Team (Late st Contact Info) Description 04/24/2024 10:45 AM EST Clinical Support [facility] [address] [place] [address] documented as of this encounter [...] 150 mg, Intramuscular, ONCE, 1 dose, On Fri04/24/20 at 1530, Dx: 1. Excessive and frequent menstruationIndications:Exce ssive and frequent menstruation Given 04/24/2020 3:19 PM EST 150 mg Left Deltoid documented in this encounter Additional Health Concerns Assessment Noted Time PHQ-9 Depression Total Score: 2 10/07/19 18 8:00 AM EDT PHQ-2 Depression Total Score: 2 10/07/19 18 8:00 AM EDT documented as of this encounter Care Teams Burlap Roll Coverer Relationship Specialty Start Date End Date Thea Rubio MD PCP - General Family Medicine 09/13/14 07/16/22 Abdifatah Uriarte MD [address] [place] [address] Consulting Physician Obstetrics & Gynecology-Gynecologic Oncology 12/16/19 documented as of this encounter
--- OUTSIDE RECORDS SUMMARY | 2024-03-14 18:17 | XMS_ITS | Encounter Summary ---
Author Organization [facility] [place] [address] Care Team Providers Care Client Account Manager Name Role Phone Thea Rubio MD Primary Care Provider +1- [phone] Abdifatah Uriarte MD Unavailable [phone] Encounter Details Date Type Department Care Team (Latest Contact Info) Description 10/30/2020 Travel Social History Tobacco Use Types Packs/Day [...] have Coronavirus / COVID-19? No / Unsure 10/30/2020 7:17 AM EDT documented as of this encounter Plan of Treatment Upcoming Encounters Date Type Department Care Team (Late st Contact Info) Description 04/24/2024 10:45 AM EST Clinical Support [facility] [address] [place] [address] documented as of this encounter [...] documented as of this encounter Care Teams Client Account Manager Relationship Specialty Start Date End Date Thea Rubio MD PCP - General Family Medicine 09/13/14 07/16/22 Abdifatah Uriarte MD [address] [place] [address] [place] [address] Consulting Physician Obstetrics & Gynecology-Gynecologic Oncology 12/16/19 documented as of this encounter
--- OUTSIDE RECORDS SUMMARY | 2024-03-14 18:17 | XMS_ITS | Encounter Summary ---
Author Organization [facility] [place] [address] Care Team Providers Care Industrial Editor Name Role Phone Thea Rubio MD Primary Care Provider +1- [phone] Abdifatah Uriarte MD Unavailable [phone] Encounter Details Date Type Department Care Team (Latest Contact Info) Description 10/06/2020 Travel Social History Tobacco Use Types Packs/Day [...] 04/24/2024 10:45 AM EST Clinical Support [facility] [address] [place] [address] documented as of this encounter [...] documented as of this encounter Care Teams Industrial Editor Relationship Specialty Start Date End Date Thea Rubio MD PCP - General Family Medicine 09/13/14 07/16/22 Abdifatah Uriarte MD [address] [place] [address] [place] [address] Consulting Physician Obstetrics & Gynecology-Gynecologic Oncology 12/16/19 documented as of this encounter
--- OUTSIDE RECORDS SUMMARY | 2024-03-14 18:17 | XMS_ITS | Encounter Summary ---
Author Organization [place] [address] Care Team Providers Care Apartment Hotel Manager Name Role Phone Thea Rubio MD Primary Care Provider +1- [phone] Abdifatah Uriarte MD Unavailable [phone] Reason for Visit * Reason Comments Medication Refill Encounter Details Date Type Department Care Team (Late st Contact Info) Description 10/28/2020 Refill [facility] [place] [facility] [address] [place] [address] Migue Anne MD [address] [place] [address] Medication Refill Social History Tobacco Use Types [...] AM EDT documented as of this encounter Ordered Prescriptions Prescription Sig Dispense Quantity Refills Last Filled Start Date End Date amLODIPine (NORVASC) 2.5 mg Oral Tablet TAKE ONE TABLET BY MOUTH DAILY 30 Tab 5 10/30/2020 05/04/2021 documented in this encounter Plan of Treatment Upcoming Encounters Date Type Department Care Team (Late st Contact Info) Description 04/24/2024 10:45 AM EST Clinical Support [facility] [address] [place] [address] documented as of this encounter [...] Tablet TAKE ONE TABLET BY MOUTH DAILY 07/24/2020 10/30/2020 documented as of this encounter Additional Health Concerns Assessment Noted Time PHQ-9 Depression Total Score: 2 10/07/19 18 8:00 AM EDT PHQ-2 Depression Total Score: 2 10/07/19 18 8:00 AM EDT documented as of this encounter Care Teams Apartment Hotel Manager Relationship Specialty Start Date End Date Thea Rubio MD PCP - General Family Medicine 09/13/14 07/16/22 Abdifatah Uriarte MD [address] [place] [address] [place] [address] Consulting Physician Obstetrics & Gynecology-Gynecologic Oncology 12/16/19 documented as of this encounter
--- OUTSIDE RECORDS SUMMARY | 2024-03-14 18:17 | XMS_ITS | Encounter Summary ---
Author Organization [facility] [place] [address] Care Team Providers Care Deaf Teacher Name Role Phone Thea Rubio MD Primary Care Provider [phone]- [phone] Abdifatah Uriarte MD Unavailable [phone] Encounter Details Date Type Department Care Team (Latest Contact Info) Description 04/24/2020 Travel Social History Tobacco Use Types Packs/Day [...] PM EST documented as of this encounter Plan of Treatment Upcoming Encounters Date Type Department Care Team (Late st Contact Info) Description 04/24/2024 10:45 AM EST Clinical Support [facility] [address] [place] [address] documented as of this encounter [...] documented as of this encounter Care Teams Deaf Teacher Relationship Specialty Start Date End Date Thea Rubio MD PCP - General Family Medicine 09/13/14 07/16/22 Abdifatah Uriarte MD [address] [place] [address] [place] [address] Consulting Physician Obstetrics & Gynecology-Gynecologic Oncology 12/16/19 documented as of this encounter
--- OUTSIDE RECORDS SUMMARY | 2024-03-14 18:17 | XMS_ITS | Encounter Summary ---
Author Organization [place] [address] Care Team Providers Care Large Sheetfed Press Operator Name Role Phone Thea Rubio MD Primary Care Provider +1- [phone] Abdifatah Uriarte MD Unavailable [phone] Reason for Visit * Reason Onset Date Comments Contraception 12/22/2019 mirena info Encounter Details Date Type Department Care Team (Late Contact Info) Description 12/22/2019 Telephone [facility] [address] [place] [address] Misty Gillespie MD [address] [place] [address] Contraception (mirena info) Social History Tobacco Use Types Packs/Day Years [...] PM EST documented as of this encounter Miscellaneous Notes * Telephone Encounter - Eli Thorpe - 04/24/2020 3:09 PM EST Pt is still weight options. Currently using depo but thinking of switching. Will call when she decides. * Telephone Encounter - Eli Thorpe - 02/03/2020 3:13 PM EDT IUD arrived in [place]. Called pt to schedule, LMTCB. * Telephone Encounter - Heather Ness - 01/20/2020 3:05 PM EDT Candida with [facility] called to schedule IUD delivery to office. [employer] priority. 01/26/20 * Telephone Encounter - Eli Thorpe - 01/04/2020 2:14 PM EDT Rx was transferred from [facility] to [facility]. Spoke anya/ Antonio, the pharmacist, to confirm this order. They will ship it out [facility]. * Telephone Encounter - Eli Thorpe - 12/22/2019 10:14 AM EDT Patient Supply Mirena order submitted to [facility]. Pharmacy will contact patient withbenefits and schedule delivery of IUD to office. Once IUD is received in office we will contact patient to schedule insertion. * Telephone Encounter - Maurilio Eli Marquez - 12/22/2019 10:06 AM EDT ----- Message from Misty Gillespie MD sent at 12/16/2019 3:54 PM EDT ----- Mirena auth please does not need Cytotec ordered Does not need to be on period for placement. Instruct Ibuprofen 600mg one hour before appt. Okay to squeeze onto schedule. Thanks! documented in this encounter Plan of Treatment Upcoming Encounters Date Type Department Care Team (Late st Contact Info) Description 04/24/2024 10:45 AM EST Clinical Support [facility] [address] [place] [address] documented as of this encounter [...] documented as of this encounter Care Teams Large Sheetfed Press Operator Relationship Specialty Start Date End Date Thea Rubio MD PCP - General Family Medicine 09/13/14 07/16/22 Abdifatah Uriarte MD [address] [place] [address] [place] [address] Consulting Physician Obstetrics & Gynecology-Gynecologic Oncology 12/16/19 documented as of this encounter
--- OUTSIDE RECORDS SUMMARY | 2024-03-14 18:17 | XMS_ITS | Encounter Summary ---
Author Organization [place] [address] Care Team Providers Care Selector Packer Name Role Phone Thea Rubio MD Primary Care Provider [phone]- [phone] Abdifatah Uriarte MD Unavailable [phone] Reason for Referral * Mammography (Routine) - Closed Specialty Diagnoses / Procedures Referred By Amalia tuttle Referred To Contact Radiology Diagnoses Breast lump on left side at 1 o'clock position Procedures MM MAMMO DIGITAL MADELEINE DIAGN BILAT MM MAMMO DIGITAL DIAGNOSTIC W CAD BILAT MM MAMMO DIGITAL DIAGNOSTIC W CAD LEFT Misty Gillespie MD [address] [place] [address] Phone: tel: fax: Referral ID Status Reason Start Date Expiration Date Visits Re quested Visits Authorized [id number] Closed 10/04/2020 10/04/2022 1 1 Reason for Visit * Mammography (Routine) - Closed Specialty Diagnoses / Procedures Referred By Amalia tuttle Referred To Contact Radiology Diagnoses Breast lump on left side at 1 o'clock position Procedures MM MAMMO DIGITAL MADELEINE DIAGN BILAT MM MAMMO DIGITAL DIAGNOSTIC W CAD BILAT MM MAMMO DIGITAL DIAGNOSTIC W CAD LEFT Misty Gillespie MD [address] [place] [address] Phone: tel: fax: Referral ID Status Reason Start Date Expiration Date Visits Re quested Visits Authorized [id number] Closed 10/04/2020 10/04/2022 1 1 Encounter Details Date Type Department Care Team (Late st Contact Info) Description 10/30/2020 7:20 AM EDT - 10/30/2020 7:50 AM EDT Hospital Encounter [facility] [address] [place] [address] Misty Gillespie MD [address] [place] [id number] Breast lump on left side at 1 o'clock position Discharge Disposition: Home or Self Care Social [...] MOUTH DAILY 30 Tab 5 10/30/2020 05/04/2021 cetirizine (ZYRTEC) 10 mg Oral Tablet Take [...] Description 04/24/2024 10:45 AM EST Clinical Support [facility] [address] [place] [address] documented as of this encounter Goals Goal Patient Goal Type Associated Problems Recent Progress Patient-Stated? Author Maintain a healthy diet, exercise regularly and maintain an ideal body weight General No Thea Rubio MD Stay Tobacco Free Lifestyle No Thea Rubio MD documented as of this encounter Procedures Procedure Name Priority Date/Time Associated Diagnosis Comments MM MAMMO DIGITAL MAEDLEINE DIAGN BILAT Routine 10/30/2020 7:46 AM EDT Breast lump on left side at 1 o'clock position documented in this encounter Results * MM MAMMO DIGITAL MADELEINE DIAGN BILAT (10/30/2020 7:46 AM EDT) Anatomical Region Laterality Modality Breast Bilateral Mammography 10/30/2020 2:43 PM EDT Impressions 10/30/2020 2:43 PM EDT Incomplete-need additional imaging evaluation ([id number]) ~ RECOMMENDATION: Ultrasound of the left breast. ~ DISCLAIMER * Any patient with a [...] the next mammogram, in accordance with the [employer] and the Society of Breast Imaging recommendations. Narrative 10/30/2020 2:43 PM EDT Procedure:MM MAMMO DIGITAL MADELEINE DIAGN BILAT ~ Reason for exam: clinical finding. N63.21-Unspecified lump in the left breast, upper outer [id number] ~ MM MAMMO DIGITAL MADELEINE DIAGN BILAT Bilateral CC and MLO view(s) were taken. Technologist: RT José Luis The breast tissue is heterogeneously dense. ??This may lower the sensitivity of mammography. Prior study comparison: Compared with prior studies, the most recent being 10/07/19. There are no focal findings in the far posterior left breast where the patient reports a palpable finding. This is far posterior approximately 3:00 location with the marker only identified on the MLO view. Ultrasound will be performed for further evaluation. The breasts are stable in appearance since the prior examination 10/07/2019. ~ Procedure Note Felix Ortiz III, MD - 10/30/2020 Procedure:MM MAMMO DIGITAL MADELEINE DIAGN BILAT ~ Reason for exam: clinical finding. N63.21-Unspecified lump in the left breast, upper [id number] ~ MM MAMMO DIGITAL MADELEINE DIAGN BILAT Bilateral CC and MLO view(s) were taken. Technologist: RT José Luis The breast tissue is heterogeneously dense. This may lower thesensitivity of mammography. Prior study comparison: Compared with prior studies, the most recentbeing 10/07/19. There are no focal findings in the far posterior left breast where the patient reports a palpable finding. This is far posterior approximately 3:00 location with the marker only identified on the MLO view.Ultrasound will be performed for further evaluation. The breasts are stable in appearance since the prior examination 10/07/2019. ~ IMPRESSION: Incomplete-need additional imaging evaluation ([id number]) ~ RECOMMENDATION: Ultrasound of the left breast. ~ DISCLAIMER * Any patient with a [...] the next mammogram, in accordance with the [place] and the Society of Breast Imaging recommendations. us Misty Gillespie MD IMG MAMMOGRAPHY ORDERABLES Final Result documented in this encounter Visit Diagnoses Diagnosis Breast lump on left side at 1 o'clock position Lump or mass in breast documented in this encounter Additional Health Concerns Assessment Noted Time PHQ-9 Depression Total Score: 2 10/07/19 18 8:00 AM EDT PHQ-2 Depression Total Score: 2 10/07/19 18 8:00 AM EDT documented as of this encounter Care Teams Selector Packer Relationship Specialty Start Date End Date Thea Rubio MD PCP - General Family Medicine 09/13/14 07/16/22 Abdifatah Uriarte MD [address] [place] [address] [place] [address] Consulting Physician Obstetrics & Gynecology-Gynecologic Oncology 12/16/19 documented as of this encounter
--- OUTSIDE RECORDS SUMMARY | 2024-03-14 18:17 | XMS_ITS | Encounter Summary ---
Author Organization [place] [address] Care Team Providers Care Egg Worker Name Role Phone Thea Rubio MD Primary Care Provider [phone]- [phone] Abdifatah Uriarte MD Unavailable [phone] Reason for Visit * Reason Onset Date Comments Palpitations 09/11/2020 Encounter Details Date Type Department Care Team (Late st Contact Info) Description 09/11/2020 Telephone [facility] [place] [facility] [address] [place] [address] Migue Anne MD [address] [place] [address] Palpitations Social History Tobacco Use Types Packs/Day [...] Sustained Release 24 hrIndications:Palpi tations Take 1 Tab by mouth daily. 30 Tab 5 09/12/2020 03/08/2021 documented in this encounter Miscellaneous Notes * Telephone Encounter - Teresa Saleh RN - 09/12/2020 8:40 AM EDT Called and DWP, she verbalized understanding. Rx sent to pharmacy at this time. * Telephone Encounter - Migue Anne MD - 09/11/2020 5:10 PM EDT Can try low dose beta moo Metoprolol XL 25 mg daily - may help with racing heart beat * Telephone Encounter - Teresa Saleh RN - 09/11/2020 4:29 PM EDT SWP, states she's continuing to experience intermittent heart racing and SOB. Her BP has also been slightly elevated: 131/91 124/89 136/90 139/94 128/100 146/100 HR 70-80s She denies any dizziness/lightheadedness. No edema or wt gain noted. No change in diet or meds. Will forward to Dr. Anne for review/recommendation, thank you. documented in this encounter Plan of Treatment Upcoming Encounters Date Type Department Care Team (Late st Contact Info) Description 04/24/2024 10:45 AM EST Clinical Support [facility] [address] [place] [address] documented as of this encounter Goals Goal Patient Goal Type Associated Problems Recent Progress Patient-Stated? Author Maintain a healthy diet, exercise regularly and maintain an ideal body weight General No Thea Rubio MD Stay Tobacco Free Lifestyle No Thea Rubio MD documented as of this encounter Visit Diagnoses Diagnosis Palpitations- Primary documented in this encounter Additional Health Concerns Assessment Noted Time PHQ-9 Depression Total Score: 2 10/07/19 18 8:00 AM EDT PHQ-2 Depression Total Score: 2 10/07/19 18 8:00 AM EDT documented as of this encounter Care Teams Egg Worker Relationship Specialty Start Date End Date Thea Rubio MD PCP - General Family Medicine 09/13/14 07/16/22 Abdifatah Uriarte MD [address] [place] [address] [place] [address] Consulting Physician Obstetrics & Gynecology-Gynecologic Oncology 12/16/19 documented as of this encounter
--- OUTSIDE RECORDS SUMMARY | 2024-03-14 18:17 | XMS_ITS | Encounter Summary ---
Author Organization [facility] [place] [address] Care Team Providers Care Supervisor Properties Name Role Phone Thea Rubio MD Primary Care Provider +1- [phone] Abdifatah Uriarte MD Unavailable [phone] Encounter Details Date Type Department Care Team (Latest Contact Info) Description 01/24/2020 Travel Social History Tobacco Use Types Packs/Day [...] 04/24/2024 10:45 AM EST Clinical Support [facility] [address] [place] [address] documented as of this encounter [...] as of this encounter Care Teams Supervisor Properties Relationship Specialty Start Date End Date Thea Rubio MD PCP - General Family Medicine 09/13/14 07/16/22 Abdifatah Uriarte MD [address] [place] [address] [place] [address] Consulting Physician Obstetrics & Gynecology-Gynecologic Oncology 12/16/19 documented as of this encounter
--- OUTSIDE RECORDS SUMMARY | 2024-03-14 18:17 | XMS_ITS | Encounter Summary ---
Author Organization [facility] [facility] [place] [address] Care Team Providers Care Security Flex Officer Name Role Phone Thea Rubio MD Primary Care Provider +1- [phone] Abdifatah Uriarte MD Unavailable [phone] Reason for Visit * Reason Onset Date Comments Medication Refill 06/27/2020 Encounter Details Date Type Department Care Team (Late st Contact Info) Description 06/27/2020 Refill [facility] [address] [place] [address] Misty Gillespie MD [address] [place] [address] Medication Refill Social History Tobacco Use Types [...] Refills Last Filled Start Date End Date medroxyPROGESTERon e (DEPO-PROVERA) 150 mg/mL IM SuspensionIndicati ons:Excessive and frequent menstruation Inject 1 mL into the muscle once for 1 dose. 1 Vial 06/27/2020 06/27/2020 documented in this encounter Miscellaneous Notes * Telephone Encounter - Yolis Angeles RN - 06/27/2020 2:49 PM EST Rx sent * Telephone Encounter - Eli Thorpe - 06/27/2020 1:56 PM EST Needs refill on depo, inj scheduled for 07/11. Annual scheduled for 10/04. documented in this encounter Plan of Treatment Upcoming Encounters Date Type Department Care Team (Late st Contact Info) Description 04/24/2024 10:45 AM EST Clinical Support [facility] [address] [place] [address] documented as of this encounter [...] documented as of this encounter Care Teams Security Flex Officer Relationship Specialty Start Date End Date Thea Rubio MD PCP - General Family Medicine 09/13/14 07/16/22 Abdifatah Uriarte MD [address] [facility] [place] [address] Consulting Physician Obstetrics & Gynecology-Gynecologic Oncology 12/16/19 documented as of this encounter
--- OUTSIDE RECORDS SUMMARY | 2024-03-14 18:17 | XMS_ITS | Encounter Summary ---
Author Organization [place] [address] Care Team Providers Care Supervisor Money Room Name Role Phone Thea Rubio MD Primary Care Provider +1- [phone] Abdifatah Uriarte MD Unavailable [phone] Reason for Referral * Mammography (Routine) - Closed Specialty Diagnoses / Procedures Referred By Contac t Referred To Contact Radiology Diagnoses Breast lump on left side at 1 o'clock position Procedures MM MAMMO DIGITAL MADELEINE DIAGN BILAT MM MAMMO DIGITAL DIAGNOSTIC W CAD BILAT MM MAMMO DIGITAL DIAGNOSTIC W CAD LEFT Misty Gillespie MD [address] [place] [address] Phone: tel: fax: Referral ID Status Reason Start Date Expiration Date Visits Re quested Visits Authorized [id number] Closed 10/04/2020 10/04/2022 1 1 * Mammography (Routine) - Closed Specialty Diagnoses / Procedures Referred By Contac t Referred To Contact Radiology Diagnoses Breast lump on left side at 1 o'clock position Procedures MM US BREAST LIMITED LEFT Misty Gillespie MD [address] [place] [address] Phone: tel: fax: Referral ID Status Reason Start Date Expiration Date Visits Re quested Visits Authorized [id number] Closed 10/04/2020 10/04/2022 11 11 Reason for Visit * Reason Comments Routine Visit Encounter Details Date Type Department Care Team (Late st Contact Info) Description 10/04/2020 3:30 PM EDT Office Visit [facility] [address] [facility] [address] [address] Misty Gillespie MD [address] [facility] [address] [place] [id number] Well woman exam (Primary Dx); Excessive and frequent menstruation; Breast lump on left side at 1 o'clock position Social History Tobacco Use Types Packs/Day Years [...] have Coronavirus / COVID-19? No / Unsure 10/04/2020 3:21 PM EDT documented as of this encounter Last Filed Vital Signs Vital Sign Reading Time Taken Comments Blood Pressure 110/80 10/04/2020 3:37 PM EDT Pulse - - Temperature - - Respiratory Rate - - Oxygen Saturation - - Inhaled Oxygen Concentration - - Weight 73.5 kg (162 lb) 10/04/2020 3:37 PM EDT Height 166.4 cm (5' 5.5 ) 10/04/2020 3:37 PM EDT Body Mass Index 26.55 10/04/2020 3:37 PM EDT documented in this encounter Progress Notes * Misty Gillespie MD - 10/04/2020 3:30 PM EDT INSOLE TACKER ANNUAL EXAM HPI: Patient is a 40 y.o. female presenting for annual exam. Amenorrheic with depo provera. The patient is sexually active. Current contraception: Depo- Provera injections. No LMP recorded. Patient has had an injection. Had screening mammogram last year which was normal. Past Medical History: Diagnosis Date ??? Abnormal [...] ??? COLONOSCOPY 01/12/2018 Dr. Aaron Rocha, with [facility]. Normal colon ??? UPPER GASTROINTESTINAL ENDOSCOPY 12/04/2017 [...] education: None ??? Highest education level: None Social Needs ??? Financial resource strain: Not hard at all ??? Food insecurity Worry: Never true Inability: Never true ??? Transportation needs Medical: No Non-medical: No Tobacco Use ??? Smoking status: Former Smoker Packs/day: 0.50 Years: 0.20 Pack years: 0.10 Quit date: 04/21/1994 Years since quittin.4 ??? Smokeless tobacco: Never Used Substance and Sexual Activity ??? Alcohol use: No Alcohol/week: 0.0 oz ??? Drug use: No ??? Sexual activity: Yes Partners: Male control/protection: Injection Current Outpatient Medications: ??? amLODIPine (NORVASC) 2.5 mg Oral Tablet, TAKE ONE TABLET BY MOUTH DAILY, Disp: 30 Tab, Rfl: 1 ??? aspirin 81 mg Oral Tablet, Delayed Release (E.C.), TAKE ONE TABLET BY MOUTH DAILY, Disp: 90 Tab, Rfl: 2 ??? cetirizine (ZYRTEC) 10 mg Oral Tablet, Take by mouth daily., Disp: , Rfl: ??? medroxyPROGESTERone (DEPO-PROVERA) 150 mg/mL IM Suspension, INJECT ONE ML INTRAMUSCULARLY FOR 1DOSE, Disp: 1 Vial, Rfl: 0 ??? metoprolol succinate (TOPROL-XL) 25 mg Oral Tablet Sustained Release 24 hr, Take 1 Tab by mouthdaily., Disp: 30 Tab, Rfl: 5 Allergies Allergen Reactions ??? Latex Rash ??? Latex, Natural Rubber Rash ??? Morphine Nausea And Vomiting ??? Metronidazole Rash PHYSICAL EXAM: BP 110/80 Ht 5' 5.5 (1.664 m) Wt 162 lb (73.5 kg) BMI 26.55 kg/m?? General appearance: alert, well appearing, and in no distress. Exam of extremities: peripheral pulses normal, no pedal edema, no clubbing or cyanosis Skin exam - normal coloration and turgor, no rashes, no suspicious skin lesions noted. Breast exam: breasts appear normal, no suspicious masses, no skin or nipple changes or axillary nodes.L breast with tender nodule around 1-2 oclock Abdominal exam: soft, nontender, nondistended, no masses or organomegaly. Pelvic exam: normal external genitalia, vulva, vagina, cervix, uterus and adnexa. Thyroid exam reveals thyroid is normal in size without nodules or tenderness. Review of Systems - Pertinent items are noted in HPI Assessment: 40 y.o. female presenting for annual exam: 1. Well woman exam [facility] INSOLE TACKER CYTOLOGY ORDER DISCONTINUED: medroxyPROGESTERone (DEPO-PROVERA) injection 150 mg 2. Excessive and frequent menstruation medroxyPROGESTERone (DEPO-PROVERA) injection 150 mg 3. Breast lump on left side at 1 o'clock position MM MAMMO DIGITAL DIAGNOSTIC W CAD LEFT MM US BREAST LIMITED LEFT - RTO 1 year or prn Misty Gillespie MD * Es Vega MA - 10/04/2020 3:30 PM EDT Dep[place] inj Pt supplied [id number] 09/2022 documented in this encounter Plan of Treatment Upcoming Encounters Date Type Department Care Team (Late st Contact Info) Description 04/24/2024 10:45 AM EST Clinical Support [facility] [address] [place] [address] documented as of this encounter Goals Goal Patient Goal Type Associated Problems Recent Progress Patient-Stated? Author Maintain a healthy diet, exercise regularly and maintain an ideal body weight General No Thea Rubio MD Stay Tobacco Free Lifestyle No Thea Rubio MD documented as of this encounter Procedures Procedure Name Priority Date/Time Associated Diagnosis Comments INSOLE TACKER CYTOLOGY REQUEST (PAP ONLY) Routine 10/04/2020 4:41 PM EDT Well woman exam [facility] INSOLE TACKER CYTOLOGY ORDER Routine 10/04/2020 4:41 PM EDT Well woman exam HPV HIGH RISK Routine 10/04/2020 4:41 PM EDT Well woman exam documented in this encounter Results * MM US BREAST LIMITED LEFT (10/30/2020 8:03 AM EDT) Anatomical Region Laterality Modality Breast Left Ultrasound 10/30/2020 2:37 PM EDT Impressions 10/30/2020 2:37 PM EDT Negative ??(MDR-Thrktanq-6) ~ RECOMMENDATION: Routine screening mammogram in 1 [...] the next mammogram, in accordance with the [employer] and the Society of Breast Imaging recommendations. Narrative 10/30/2020 2:37 PM EDT Procedure:MM US BREAST LIMITED LEFT ~ Reason for exam: characterization of a palpable mass. N63.21-Unspecified lump in the left breast, upper outer lzafdvgn-BYO-51-CM ~ MM US BREAST LIMITED LEFT Technologist: Aliyah Forrester ~ Prior study comparison: Compared with prior studies, the most recent being diagnostic mammogram dated 10/30/2020. There are no sonographic findings in the left breast to correspond the patient's palpable finding. ~ Procedure Note Felix Ortiz III, MD - 10/30/2020 Procedure:MM US BREAST LIMITED LEFT ~ Reason for exam: characterization of a palpable mass. N63.21-Unspecified lump in the left breast, upper amlihyuvpxlrz-UJF-58-CM ~ MM US BREAST LIMITED LEFT Technologist: Aliyah Forrester ~ Prior study comparison: Compared with prior studies, the most recentbeing diagnostic mammogram dated 10/30/2020. There are no sonographic findings in the left breast to correspond the patient's palpable finding. ~ IMPRESSION: Negative (RMC-Adgntvsk-2) ~ RECOMMENDATION: Routine screening mammogram in 1 [...] the next mammogram, in accordance with the [employer] and the Society of Breast Imaging recommendations. us Misty Gillespie MD IMG MAMMOGRAPHY ORDERABLES Final Result * MM MAMMO DIGITAL MADELEINE DIAGN BILAT (10/30/2020 7:46 AM EDT) Anatomical Region Laterality Modality Breast Bilateral Mammography 10/30/2020 2:43 PM EDT Impressions 10/30/2020 2:43 PM EDT Incomplete-need additional imaging evaluation (RJI-Jnvtmnuc-7) ~ RECOMMENDATION: Ultrasound of the left breast. [...] the next mammogram, in accordance with the [employer] and the Society of Breast Imaging recommendations. Narrative 10/30/2020 2:43 PM EDT Procedure:MM MAMMO DIGITAL MADELEINE DIAGN BILAT ~ Reason for exam: clinical finding. N63.21-Unspecified lump in the left breast, upper outer mreldpxn-XHC-09-CM ~ MM MAMMO DIGITAL MADELEINE DIAGN BILAT Bilateral CC and MLO view(s) were taken. Technologist: Jyoti Robles, RT The breast tissue is heterogeneously dense. [...] N63.21-Unspecified lump in the left breast, upper aoliqngmgasvf-BVE-00-CM ~ MM MAMMO DIGITAL MADELEINE DIAGN BILAT Bilateral CC and MLO view(s) were taken. Technologist: Jyoti Robles, RT The breast tissue is heterogeneously dense. [...] 10/07/2019. ~ IMPRESSION: Incomplete-need additional imaging evaluation (ZRL-Axpoqgnd-5) ~ RECOMMENDATION: Ultrasound of the left breast. [...] the next mammogram, in accordance with the [employer] and the Society of Breast Imaging recommendations. Misty Gillespie MD [facility] MAMMOGRAPHY ORDERABLES Final Result * HPV HIGH RISK (10/04/2020 4:41 PM EDT) HPV HR Not Detected Not Detected 10/05/2020 6:07 PM EDT [facility] Thin Prep SPECIMEN FROM UTERINE CERVIX / Unknown 10/04/2020 4:41 PM EDT 10/04/2020 4:41 PM EDT Narrative [facility] - 10/05/2020 6:07 PM EDT This test was performed using the FDA [...] us Misty Gillespie MD MICROBIOLOGY - GENERAL [facility] Final Result [facility] [address] [facility] , [address] [place] [id number] * INSOLE TACKER CYTOLOGY REQUEST (PAP ONLY) (10/04/2020 4:41 PM EDT) CASE REPORT Gynecologic Cytology Report ? Case: [id number] ? Authorizing Provider: ??Misty Gillespie MD ? Collected: ? 10/04/2020 1641 ? Ordering Location: ? [facility] ? Received: ?10/04/2020 1641 ? First Screen: ?Diego Raza, ? CT ? Rescreen: ?Lauren De Anda CT ? Specimen: ?LIQUID-BASED PAP - CERVICAL/ENDOCERV ICAL, Cervix, Endocervical ? 10/06/2020 1:52 PM EDT [facility] CORRECTION HISTORY 10/06/2020 1:52 PM EDT [facility] PAP FINAL DIAGNOSIS Negative for intraepithelial lesion or malignancy 10/06/2020 1:52 PM EDT [facility] OSCOPIC DESCRIPTION Microscopic examination is performed and the findings corroborate the diagnosis 10/06/2020 1:52 PM EDT [facility] PAP SMEAR ADEQUACY Satisfactory for evaluation 10/06/2020 1:52 PM EDT [facility] ENDOCERVICAL T-ZONE Transformation zone present 10/06/2020 1:52 PM EDT [facility] EMBEDDED IMAGES 1:52 PM EDT [facility] PAP DISCLAIMER The Pap Smear is a screening test that aids in the detection of cervical cancer and cancer precursors. Both false positive and false negative results can occur. The test should be used at regular intervals, and positive results should be confirmed before definitive therapy. Processed using the ThinPrep Business Analytics Director Automated cytology screening device (Airu). 10/06/2020 1:52 PM EDT [facility] Thin Prep ENDOCERVICAL STRUCTURE / Unknown 10/04/2020 4:41 PM EDT 10/04/2020 4:41 PM EDT us Misty Gillespie MD CYTOLOGY ORDERABLES Final R esult [facility] [address] [place] [address] documented in this encounter Visit Diagnoses Diagnosis Well woman exam- Primary Routine general medical examination at a health care facility Excessive and frequent menstruation Excessive or frequent menstruation Breast lump on left side at 1 o'clock position Lump or mass in breast Breast lump on left side at 1 o'clock position Lump or mass in breast Breast lump on left side at 1 o'clock position Lump or mass in breast documented in this encounter Administered Medications Inactive Administered Medications - up to 1 most recent administrations Medication Order MAR Action Action Date Dose Rate Site medroxyPROGESTERone (DEPO-PROVERA) injection 150 mg 150 mg, Intramuscular, ONCE, 1 dose, On Fri10/04/20 at 1545, Dx: 1. Excessive and frequent menstruationIndications:Exce ssive and frequent menstruation Given 10/04/2020 3:43 PM EDT 150 mg Left Deltoid documented in this encounter Orders Medications Ordered That Jair ht Not Have Been Administered Count Last Ordered Date First Ordered Date medroxyPROGESTERone (DEPO-RI OVERA) injection 150 mg 1 10/04/2020 documented in this encounter Additional Health Concerns Assessment Noted Time PHQ-9 Depression Total Score: 2 10/07/19 18 8:00 AM EDT PHQ-2 Depression Total Score: 2 10/07/19 18 8:00 AM EDT documented as of this encounter Care Teams Supervisor Money Room Relationship Specialty Start Date End Date Thea Rubio MD PCP - General Family Medicine 09/13/14 07/16/22 Abdifatah Uriarte MD [address] [facility] [place] [address] Consulting Physician Obstetrics & Gynecology-Gynecologic Oncology 12/16/19 documented as of this encounter
--- OUTSIDE RECORDS SUMMARY | 2024-03-14 18:17 | XMS_ITS | Encounter Summary ---
Author Organization [place] [address] Care Team Providers Care Lens Grinder Name Role Phone Thea Rubio MD Primary Care Provider [phone]- [phone] Abdifatah Uriarte MD Unavailable [phone] Reason for Visit * Reason Onset Date Comments Other 12/30/2019 Ordering of Depo Encounter Details Date Type Department Care Team (Late Contact Info) Description 12/30/2019 Telephone [facility] [address] [place] [address] Yolis Angeles, RN Other (Ordering of Depo) Social History Tobacco Use Types Packs/Day Years [...] Date medroxyPROGESTERon e (DEPO-PROVERA) 150 mg/mL IM Suspension Inject 1 mL into the muscle once for 1 dose. 1 Vial 12/30/2019 12/30/2019 documented in this encounter Miscellaneous Notes * Telephone Encounter - Yolis Angeles RN - 12/30/2019 5:00 PM EDT Rx ordered and appt scheduled for injection on 01/23. * Telephone Encounter - Misty Gillespie MD - 12/30/2019 4:48 PM EDT I am happy to take over her depo provera. PRODUCTION MAINTENANCE TECHNICIAN oncology thought Mirena would be good for her as well (which I agree) but either is appropriate. * Telephone Encounter - Yolis Angeles RN - 12/30/2019 4:00 PM EDT Patient called today asking if Dr. Gillespie can assume the responsibility of ordering her Depo injection. Previously this had been done by her PCP (Dr. Thea Rubio), but due to her history of abnormal pap/PRODUCTION MAINTENANCE TECHNICIAN hx, they have asked that the PRODUCTION MAINTENANCE TECHNICIAN now manage this medication. Patient has notes related to a possible hysterectomy and it appears that she is also awaiting Mirena placement. RN asked patient about possible Mirena placement and she stated she is unsure and wanted to do some more research.Patient instructed the RN will follow up with Dr. Gillespie to determine next steps. documented in this encounter Plan of Treatment Upcoming Encounters Date Type Department Care Team (Late st Contact Info) Description 04/24/2024 10:45 AM EST Clinical Support [facility] [address] [place] [address] documented as of this encounter Goals Goal Patient Goal Type Associated Problems Recent Progress Patient-Stated? Author Maintain a healthy diet, exercise regularly and maintain an ideal body weight General No Thea Rubio MD Stay Tobacco Free Lifestyle No Thea Rubio MD documented as of this encounter Visit Diagnoses Diagnosis Abnormal uterine bleeding- Primary Unspecified disorder of menstruation and other abnormal bleeding from female genital tract documented in this encounter Discontinued Medications Medication Sig Discontinue Reason Start Date End Da te medroxyprogesterone acetate (DEPO-PROVERA IM) Inject into the muscle. Every three months DELETE-Duplicate 12/30/2019 documented as of this encounter Additional Health Concerns Assessment Noted Time PHQ-9 Depression Total Score: 2 10/07/19 18 8:00 AM EDT PHQ-2 Depression Total Score: 2 10/07/19 18 8:00 AM EDT documented as of this encounter Care Teams Lens Grinder Relationship Specialty Start Date End Date Thea Rubio MD PCP - General Family Medicine 09/13/14 07/16/22 Abdifatah Uriarte MD [address] [place] [address] [place] [address] Consulting Physician Obstetrics & Gynecology-Gynecologic Oncology 12/16/19 documented as of this encounter
--- OUTSIDE RECORDS SUMMARY | 2024-03-14 18:17 | XMS_ITS | Encounter Summary ---
Author Organization [facility] [place] [address] Care Team Providers Care Utility Mechanic Name Role Phone Thea Rubio MD Primary Care Provider [phone]- [phone] Abdifatah Uriarte MD Unavailable [phone] Encounter Details Date Type Department Care Team (Latest Contact Info) Description 10/04/2020 Travel Social History Tobacco Use Types Packs/Day [...] 04/24/2024 10:45 AM EST Clinical Support [facility] [address] [place] [address] documented as of this encounter [...] documented as of this encounter Care Teams Utility Mechanic Relationship Specialty Start Date End Date Thea Rubio MD PCP - General Family Medicine 09/13/14 07/16/22 Abdifatah Uriarte MD [address] [place] [address] [place] [address] Consulting Physician Obstetrics & Gynecology-Gynecologic Oncology 12/16/19 documented as of this encounter
--- OUTSIDE RECORDS SUMMARY | 2024-03-14 18:17 | XMS_ITS | Encounter Summary ---
Author Organization [facility] [place] [address] Care Team Providers Care Computer Builder Name Role Phone Thea Rubio MD Primary Care Provider [phone]- [phone] Abdifatah Uriarte MD Unavailable [phone] Encounter Details Date Type Department Care Team (Latest Contact Info) Description 07/11/2020 Travel Social History Tobacco Use Types Packs/Day [...] have Coronavirus / COVID-19? No / Unsure 07/11/2020 4:05 PM EDT documented as of this encounter Plan of Treatment Upcoming Encounters Date Type Department Care Team (Late st Contact Info) Description 04/24/2024 10:45 AM EST Clinical Support [facility] [address] [place] [address] documented as of this encounter [...] as of this encounter Care Teams Computer Builder Relationship Specialty Start Date End Date Thea Rubio MD PCP - General Family Medicine 09/13/14 07/16/22 Abdifatah Uriarte MD [address] [place] [address] [place] [address] Consulting Physician Obstetrics & Gynecology-Gynecologic Oncology 12/16/19 documented as of this encounter
--- OUTSIDE RECORDS SUMMARY | 2024-03-14 18:17 | XMS_ITS | Encounter Summary ---
Author Organization [place] [address] Care Team Providers Care Heating And Cooling Systems Engineer Name Role Phone Thea Rubio MD Primary Care Provider [phone]- [phone] Abdifatah Uriarte MD Unavailable [phone] Encounter Details Date Type Department Care Team (Late st Contact Info) Description 12/20/2019 Social Work [facility] [place] [id number] Linda Roman, CLARE Social History Tobacco Use Types Packs/Day Years [...] as of this encounter Progress Notes * Linda Roman MSW - 12/20/2019 9:29 AM EDT 12/20/19 0928 Training Intern Assessment Referred By nursing Referral Location Other (Comment) Reason for Referral distress tool Distress Screening Distress Tool 0 Distress tool reviewed. Score of 0 with no concerns indicated. Linda SPARKS, REAL ESTATE RECRUITER Social Work - Cancer Care [place] documented in this encounter Plan of Treatment Upcoming Encounters Date Type Department Care Team (Late st Contact Info) Description 04/24/2024 10:45 AM EST Clinical Support [facility] [address] [place] [address] documented as of this encounter [...] documented as of this encounter Care Teams Heating And Cooling Systems Engineer Relationship Specialty Start Date End Date Thea Rubio MD PCP - General Family Medicine 09/13/14 07/16/22 Abdifatah Uriarte MD [address] [place] [address] [place] [address] Consulting Physician Obstetrics & Gynecology-Gynecologic Oncology 12/16/19 documented as of this encounter
--- OUTSIDE RECORDS SUMMARY | 2024-03-14 18:17 | XMS_ITS | Encounter Summary ---
Author Organization [place] [address] Care Team Providers Care Glove Parts Cutter Name Role Phone Thea Rubio MD Primary Care Provider [phone]- [phone] Abdifatah Uriarte MD Unavailable [phone] Reason for Visit * Reason Comments Injections depo Encounter Details Date Type Department Care Team (Latest Contact Info) Description 07/11/2020 4:00 PM EDT Clinical Support [facility] [address] [place] [phone] Es Vega MA Excessive and frequent [...] as of this encounter Progress Notes * Es Vega MA - 07/11/2020 4:00 PM EDT [place] supplied [id number] 06/2022 documented in this encounter Plan of Treatment Upcoming Encounters Date Type Department Care Team (Late st Contact Info) Description 04/24/2024 10:45 AM EST Clinical Support [facility] [address] [place] [address] documented as of this encounter Goals Goal [...] 150 mg, Intramuscular, ONCE, 1 dose, On Fri07/11/20 at 1700, Dx: 1. Excessive and frequent menstruationIndications:Exc essive and frequent menstruation Given 07/11/2020 4:45 PM EDT 150 mg Right Deltoid documented in this encounter Additional Health Concerns Assessment Noted Time PHQ-9 Depression Total Score: 2 10/07/19 18 8:00 AM EDT PHQ-2 Depression Total Score: 2 10/07/19 18 8:00 AM EDT documented as of this encounter Care Teams Glove Parts Cutter Relationship Specialty Start Date End Date Thea Rubio MD PCP - General Family Medicine 09/13/14 07/16/22 Abdifatah Uriarte MD [address] [facility] [place] [address] Consulting Physician Obstetrics & Gynecology-Gynecologic Oncology 12/16/19 documented as of this encounter
--- OUTSIDE RECORDS SUMMARY | 2024-03-14 18:17 | XMS_ITS | Encounter Summary ---
Author Organization [place] [address] Care Team Providers Care Data Integration Analyst Name Role Phone Thea Rubio MD Primary Care Provider [phone] Abdifatah Uriarte MD Unavailable [phone] Reason for Visit * Reason Comments Medication Refill Encounter Details Date Type Department Care Team (Late st Contact Info) Description 04/18/2020 Refill [facility] [address] [place] [address] Migue Anne MD [address] [place] [address] Medication Refill Social History Tobacco Use Types [...] ONE TABLET BY MOUTH DAILY 30 Tab 2 04/18/2020 07/24/2020 documented in this encounter Plan of Treatment Upcoming Encounters Date Type Department Care Team (Late st Contact Info) Description 04/24/2024 10:45 AM EST Clinical Support [facility] [address] [place] [address] documented as of this encounter [...] Tablet TAKE ONE TABLET BY MOUTH DAILY 12/06/2019 04/18/2020 documented as of this encounter Additional Health Concerns Assessment Noted Time PHQ-9 Depression Total Score: 2 10/07/19 18 8:00 AM EDT PHQ-2 Depression Total Score: 2 10/07/19 18 8:00 AM EDT documented as of this encounter Care Teams Data Integration Analyst Relationship Specialty Start Date End Date Thea Rubio MD PCP - General Family Medicine 09/13/14 07/16/22 Abdifatah Uriarte MD [address] [place] [address] [place] [address] Consulting Physician Obstetrics & Gynecology-Gynecologic Oncology 12/16/19 documented as of this encounter
--- OUTSIDE RECORDS SUMMARY | 2024-03-14 18:17 | XMS_ITS | Encounter Summary ---
Author Organization [place] [address] Care Team Providers Care Packaging Associate Name Role Phone Thea Rubio MD Primary Care Provider [phone]- [phone] Abdifatah Uriarte MD Unavailable [phone] Reason for Referral * Mammography (Routine) - Closed Specialty Diagnoses / Procedures Referred By Amalia tuttle Referred To Contact Radiology Diagnoses Breast lump on left side at 1 o'clock position Procedures MM US BREAST LIMITED LEFT Misty Gillespie MD [address] [place] [address] Phone: tel: fax: Referral ID Status Reason Start Date Expiration Date Visits Re quested Visits Authorized [id number] Closed 10/04/2020 10/04/2022 11 11 Reason for Visit * Mammography (Routine) - Closed Specialty Diagnoses / Procedures Referred By Amlaia tuttle Referred To Contact Radiology Diagnoses Breast lump on left side at 1 o'clock position Procedures MM US BREAST LIMITED LEFT Misty Gillespie MD [address] [place] [address] Phone: tel: fax: Referral ID Status Reason Start Date Expiration Date Visits Re quested Visits Authorized [id number] Closed 10/04/2020 10/04/2022 11 11 Encounter Details Date Type Department Care Team (Late st Contact Info) Description 10/30/2020 7:51 AM EDT - 10/30/2020 11:59 PM EDT Hospital Encounter [facility] [address] [place], [place] [address] Misty Gillespie MD [address] [place] [id number] Breast lump on left side at 1 [...] 04/24/2024 10:45 AM EST Clinical Support [facility] [address] [place] [address] documented as of this encounter Goals Goal Patient Goal Type Associated Problems Recent Progress Patient-Stated? Author Maintain a healthy diet, exercise regularly and maintain an ideal body weight General No Thea Rubio MD Stay Tobacco Free Lifestyle No Thea Rubio MD documented as of this encounter Procedures Procedure Name Priority Date/Time Associated Diagnosis Comments MM US BREAST LIMITED LEFT Routine 10/30/2020 8:03 AM EDT Breast lump on left side at 1 o'clock position documented in this encounter Results * MM US BREAST LIMITED LEFT (10/30/2020 8:03 AM EDT) Anatomical Region Laterality Modality Breast Left Ultrasound 10/30/2020 2:37 PM EDT Impressions 10/30/2020 2:37 PM EDT Negative ??([id number]) ~ RECOMMENDATION: Routine screening mammogram in 1 [...] the next mammogram, in accordance with the [employer] and the Society of Breast Imaging recommendations. Narrative 10/30/2020 2:37 PM EDT Procedure:MM US BREAST LIMITED LEFT ~ Reason for exam: characterization of a palpable mass. N63.21-Unspecified lump in the left breast, upper outer [id number] ~ MM US BREAST LIMITED LEFT Technologist: [...] N63.21-Unspecified lump in the left breast, upper pzjsoakywnagq-XPJ-16-CM ~ MM US BREAST LIMITED LEFT Technologist: Aliyah Forrseter ~ Prior study comparison: Compared with prior studies, the most recentbeing diagnostic mammogram dated 10/30/2020. There are no sonographic findings in the left breast to correspond the patient's palpable finding. ~ IMPRESSION: Negative (BJZ-[id number]-9) ~ RECOMMENDATION: Routine screening mammogram in 1 [...] the next mammogram, in accordance with the [employer] and the Society of [...] documented as of this encounter Care Teams Packaging Associate Relationship Specialty Start Date End Date Thea Rubio MD PCP - General Family Medicine 09/13/14 07/16/22 Abdifatah Uriarte MD [address] [place] [address] Consulting Physician Obstetrics & Gynecology-Gynecologic Oncology 12/16/19 documented as of this encounter
--- OUTSIDE RECORDS SUMMARY | 2024-03-14 18:17 | XMS_ITS | Encounter Summary ---
Author Organization [facility] [place] [address] Care Team Providers Care Dairy Associate Name Role Phone Thea Rubio MD Primary Care Provider [phone]- [phone] Abdifatah Uriarte MD Unavailable [phone] Encounter Details Date Type Department Care Team (Latest Contact Info) Description 12/16/2019 Travel Social History Tobacco Use Types Packs/Day [...] 10:45 AM EST Clinical Support [facility] [address] [place] [address] documented as of this encounter [...] documented as of this encounter Care Teams Dairy Associate Relationship Specialty Start Date End Date Thea Rubio MD PCP - General Family Medicine 09/13/14 07/16/22 Abdifatah Uriarte MD [address] [place] [address] [place] [address] Consulting Physician Obstetrics & Gynecology-Gynecologic Oncology 12/16/19 documented as of this encounter
--- OUTSIDE RECORDS SUMMARY | 2024-03-14 18:17 | XMS_ITS | Encounter Summary ---
Author Organization [place] [address] Care Team Providers Care Journeyman Level Acoustic Analyst Name Role Phone Thea Rubio MD Primary Care Provider [phone]- [phone] Abdifatah Uriarte MD Unavailable [phone] Encounter Details Date Type Department Care Team (Latest Contact Info) Description 12/16/2019 1:50 PM EDT - 12/16/2019 1:52 PM EDT Hospital Encounter [facility] [address] [place] [id number] ASD (atrial septal defect); Atypical chest pain Discharge Disposition: Home or Self Care Social [...] Support [facility] [address] [place] [address] documented as of this encounter Goals Goal Patient Goal Type Associated Problems Recent Progress Patient-Stated? Author Maintain a healthy diet, exercise regularly and maintain an ideal body weight General No Thea Rubio MD Stay Tobacco Free Lifestyle No Thea Rubio MD documented as of this encounter Procedures Procedure Name Priority Date/Time Associated Diagnosis Comments TSH REFLEX Routine 12/16/2019 2:02 PM EDT ASD (atrial septal defect) Atypical chest pain CBC Routine 12/16/2019 2:02 PM EDT ASD (atrial septal defect) Atypical chest pain LIPID SCREEN Routine 12/16/2019 2:02 PM EDT ASD (atrial septal defect) Atypical chest pain BASIC METABOLIC PANEL Routine 12/16/2019 2:02 PM EDT ASD (atrial septal defect) Atypical chest pain documented in this encounter Results * LIPID SCREEN (12/16/2019 2:02 PM EDT) Cholesterol 137 <200 mg/dL 12/16/2019 3:00 PM EDT [facility] Comment: < 200 ?Desirable 200 - 239 ? Borderline High >= 240 ?High Triglyceride 73 <150 mg/dL 12/16/2019 3:00 PM EDT [facility] Comment: < 150 ? Normal 150 - 199 ?Borderline High 200 - 499 ?High ??>= 500 ? Very High HDL 55 >=40 mg/dL 12/16/2019 3:00 PM EDT [facility] Comment: ??> 60 ?Optimal 40 - 60 ?Acceptable ?? < 40 ?Low LDL Calculated 67 <100 mg/dL 12/16/2019 3:00 PM EDT [facility] Comment: < 100 ?Optimal 100 - 129 ? Near or above optimal 130 - 159 ? Borderline High 160 - 189 ? High >= 190 ?Very High Non-HDL-C Calculated 82 <=129 mg/dL 12/16/2019 3:00 PM EDT [facility] Comment: <130 ?Desirable 130-159 Above Desirable 160-189 Borderline High 190-219 High >= 220 ??Very High Fasting Specimen? No None 020 3:00 PM EDT [facility] Blood VENOUS BLOOD / Unknown Venipuncture / Unknown 12/16/2019 2:02 PM EDT 12/16/2019 2:02 PM EDT us Tiny Mendoza WIRELESS WATCHER CHEMISTRY ORDERABLES Final Result [facility] [address], [place] [address] * BASIC METABOLIC PANEL (12/16/2019 2:02 PM EDT) Pathologist [facility] Sodium 139 136 - 145 mmol/L 12/16/2019 3:00 PM EDT [facility] Potassium 3.9 3.5 - 5.0 mmol/L 12/16/2019 3:00 PM EDT [facility] Chloride 105 98 - 107 mmol/L 12/16/2019 3:00 PM EDT [facility] Total CO2 22 22 - 29 mmol/L 12/16/2019 3:00 PM EDT [facility] Anion Gap 12 7 - 16 mmol/L 12/16/2019 3:00 PM EDT [facility] Calcium 8.8 8.6 - 10.4 mg/dL 12/16/2019 3:00 PM EDT [facility] Glucose Lvl 83 74 - 100 mg/dL 12/16/2019 3:00 PM EDT [facility] BUN 7 6 - 20 mg/dL 12/16/2019 3:00 PM EDT [facility] Creatinine 0.66 0.51 - 1.30 mg/dL 12/16/2019 3:00 PM EDT [facility] GFR Afr Am 131 >=60 mL/min/1.7 3 m2 12/16/2019 3:00 PM EDT [facility] GFR Non Afr Am 113 >=60 mL/min/1.7 3 m2 12/16/2019 3:00 PM EDT [facility] Comment: This estimated GFR was calculated using CKD-EPI equation which is modified based on ethnicity for Non Americans and Americans. Both results are reported since it is not always possible to determine the patient's ethnicity. This equation should only be used for individuals 18 and older. It has not been validated for use with the elderly (>70 years), women, or in some racial or ethnic subgroups, such as Hispanics. The equation will be less accurate in people with differences in nutritional status or muscle mass. Blood VENOUS BLOOD / Unknown Venipuncture / Unknown 12/16/2019 2:02 PM EDT 12/16/2019 2:02 PM EDT us Tiny Mendoza WIRELESS WATCHER CHEMISTRY ORDERABLES Final Result [facility] [address] [facility] , [place] [address] [facility] [address] [place] [address] * CBC (12/16/2019 2:02 PM EDT) Pathologist [facility] WBC 5.3 3.7 - 10.3 x10(3)/mcL 12/16/2019 2:16 PM EDT [facility] RBC 4.49 3.90 - 5.20 x10(6)/mcL 12/16/2019 2:16 PM EDT [facility] Hgb 13.2 11.2 - 15.7 g/dL 12/16/2019 2:16 PM EDT [facility] Hct 39.2 34.0 - 45.0 % 12/16/2019 2:16 PM EDT [facility] MCV 87.3 80.0 - 100.0 fL 12/16/2019 2:16 PM EDT [facility] MCH 29.4 26.0 - 34.0 pg 12/16/2019 2:16 PM EDT [facility] MCHC 33.7 30.7 - 35.5 g/dL 12/16/2019 2:16 PM EDT [facility] RDW 13.0 <=14.9 % 12/16/2019 2:16 PM EDT [facility] Platelet 296 155 - 369 x10(3)/mcL 12/16/2019 2:16 PM EDT [facility] MPV 9.7 8.8 - 12.5 fL 12/16/2019 2:16 PM EDT [facility] Blood VENOUS BLOOD / Unknown Venipuncture / Unknown 12/16/2019 2:02 PM EDT 12/16/2019 2:02 PM EDT us Tiny Mendoza APRN HEMATOLOGY ORDERABLES Antonia zach Result [facility] [address] [facility] , [place] [address] * TSH REFLEX (12/16/2019 2:02 PM EDT) TSH Reflex 1.520 0.270 - 4.200 mcIU/mL 12/16/2019 3:00 PM EDT [facility] Blood VENOUS BLOOD / Unknown Venipuncture / Unknown 12/16/2019 2:02 PM EDT 12/16/2019 2:02 PM EDT Narrative [facility] - 12/16/2019 3:00 PM EDT Ingestion of abimael doses of biotin (>5 mg/day) taken within 8 hours of drawing blood sample can interfere with this immunoassay test. Tiny Mendoza WIRELESS WATCHER CHEMISTRY ORDERABLES Final Result [facility] [address] [facility] , [place] [address] documented in this encounter Visit Diagnoses Diagnosis ASD (atrial septal defect) Ostium secundum type atrial septal defect Atypical chest pain Other chest pain documented in this encounter Additional Health Concerns Assessment Noted Time PHQ-9 Depression Total Score: 2 10/07/19 18 8:00 AM EDT PHQ-2 Depression Total Score: 2 10/07/19 18 8:00 AM EDT documented as of this encounter Care Teams Journeyman Level Acoustic Analyst Relationship Specialty Start Date End Date Thea Rubio MD PCP - General Family Medicine 09/13/14 07/16/22 Abdifatah Uriarte MD [address] [facility] [place] [address] Consulting Physician Obstetrics & Gynecology-Gynecologic Oncology 12/16/19 documented as of this encounter
--- OUTSIDE RECORDS SUMMARY | 2024-03-14 18:17 | XMS_ITS | Encounter Summary ---
Author Organization [facility] [place] [address] Care Team Providers Care Software Quality Tester Name Role Phone Thea Rubio MD Primary Care Provider [phone] Abdifatah Uriarte MD Unavailable [phone] Reason for Visit * Reason Onset Date Comments Medication Refill 04/03/2020 Encounter Details Date Type Department Care Team (Late st Contact Info) Description 04/03/2020 Refill [facility] [address] [place] [phone] Misty Gillespie MD [address] [place] [address] Medication Refill Social History Tobacco Use Types [...] muscle once for 1 dose. 1 Vial 04/03/2020 07/13/2020 documented in this encounter Miscellaneous Notes * Telephone Encounter - Yolis Angeles RN - 04/03/2020 3:28 PM EST Rx sent to pharmacy. * Telephone Encounter - Heather Ness - 04/03/2020 3:12 PM EST medroxyPROGESTERone (DEPO-PROVERA) injection 150 mg ?? [[id number]] Order Details Ordered Dose: 150 mg Route: Intramuscular Frequency: ONCE Administration Dose: 150 mg Scheduled Start Date/Time: 01/24/201544 End Date/Time: 01/24/20 154 after 1 doses ?? Diagnosis Association: Excessive and frequent menstruation (N92.0) Order Status: Completed FriJan 24, 2020 1542, originally scheduled to end FriJan 25, 2020 0345 Ordering User: La Flynn MA Ordering Date/Time: FriJan 24, 2020 1542 Ordering Provider: Misty Gillespie MD Refill needed, appt 04/24/20 documented in this encounter Plan of Treatment Upcoming Encounters Date Type Department Care Team (Late st Contact Info) Description 04/24/2024 10:45 AM EST Clinical Support [facility] [address] [place] [address] documented as of this encounter Goals Goal [...] documented as of this encounter Care Teams Software Quality Tester Relationship Specialty Start Date End Date Thea Rubio MD PCP - General Family Medicine 09/13/14 07/16/22 Abdifatah Uriarte MD [address] [place] [address] [place] [address] Consulting Physician Obstetrics & Gynecology-Gynecologic Oncology 12/16/19 documented as of this encounter
--- OUTSIDE RECORDS SUMMARY | 2024-03-14 18:18 | XMS_ITS | Encounter Summary ---
Author Organization [place] [address] Care Team Providers Care Sketch Liner Name Role Phone Thea Rubio MD Primary Care Provider [phone] Reason for Visit * Reason Comments Medication Refill Encounter Details Date Type Department Care Team (Late st Contact Info) Description 12/05/2019 Refill [facility] [address] [place] [address] Migue Anne MD [address] [place] [address] Medication Refill Social History Tobacco Use Types [...] 10/29/2019 Sexually Active Control Partners Comments Yes Male Comments No Sex and Gender Information Value Date Recorded Sex Assigned at Not on file Legal Sex Female 1:46 PM EDT Gender Identity Not on file Sexual Orientation Not on file COVID-19 Exposure Response Date Recorded In the last month, have you been in contact with someone who was confirmed or suspected to have Coronavirus / COVID-19? No / Unsure 12/03/2019 9:52 AM EDT documented as of this encounter Ordered Prescriptions Prescription Sig Dispense Quantity Refills Last Filled Start Date End Date amLODIPine (NORVASC) 2.5 mg Oral Tablet TAKE ONE TABLET BY MOUTH DAILY 30 Tab 3 12/06/2019 04/18/2020 documented in this encounter Miscellaneous Notes * Telephone Encounter - Heather Holden LPN - 12/06/2019 10:40 AM EDT Spoke with patient verified she is currently on Amlodipine 2.5 mg daily, medication refilled documented in this encounter Plan of Treatment Upcoming Encounters Date Type Department Care Team (Late st Contact Info) Description 04/24/2024 10:45 AM EST Clinical Support [facility] [address] [place] [address] documented as of this encounter [...] Discontinue Reason Start Date End Da te amLODIPine-atorvastata tin (CADUET) 10-10 mg Oral Tablet Take 1 Tab by mouth daily. Discontinued by another clinician 12/06/2019 documented as of this encounter Additional Health Concerns Assessment Noted Time PHQ-9 Depression Total Score: 2 10/07/19 18 8:00 AM EDT PHQ-2 Depression Total Score: 2 10/07/19 18 8:00 AM EDT documented as of this encounter Care Teams Sketch Liner Relationship Specialty Start Date End Date Thea Rubio MD PCP - General Family Medicine 09/13/14 07/16/22 documented as of this encounter
--- OUTSIDE RECORDS SUMMARY | 2024-03-14 18:18 | XMS_ITS | Encounter Summary ---
Author Organization [facility] [place] [address] Care Team Providers Care Senior National Account Manager Name Role Phone Thea Rubio MD Primary Care Provider [phone] Encounter Details Date Type Department Care Team (Latest Contact Info) Description 09/24/2019 Travel Social History Tobacco Use Types Packs/Day Years Used Date Smoking Tobacco: Former Cigarettes 0.5 0.2 1 - 04/21/1994 Smokeless Tobacco: Never Alcohol Use Standard Drinks/Week Comments No 0 (1 standard drink = 0.6 oz pur e alcohol) PHQ-2 Answer Date Recorded PHQ-2 Score 2 09/11/2018 Sexually Active Control Partners Comments Yes Male [...] Clinical Support [facility] [address] [place] [phone] documented as of this encounter Goals Goal [...] as of this encounter Care Teams Senior National Account Manager Relationship Specialty Start Date End Date Thea Rubio MD PCP - General Family Medicine 09/13/14 07/16/22 documented as of this encounter
--- OUTSIDE RECORDS SUMMARY | 2024-03-14 18:18 | XMS_ITS | Encounter Summary ---
Author Organization [place] [address] Care Team Providers Care Director Technical Name Role Phone Thea Rubio MD Primary Care Provider [phone] Reason for Visit * Reason Comments Foot Pain 5th pmj pain bilater ally * Consultation (Routine) - Closed Specialty Diagnoses / Procedures Referred By Amalia tuttle Referred To Contact Podiatry Diagnoses Chronic pain of both feet Thea Rubio MD Phone: tel: fax: Abdifatah Contreras, FIONA [address] [place] [address] Phone: tel: fax: Referral ID Status Reason Start Date Expiration Date Visits Re quested Visits Authorized [id number] Closed 10/13/2019 10/12/2020 99 99 Encounter Details Date Type Department Care Team (Late st Contact Info) Description 10/28/2019 2:00 PM EDT Office Visit [facility] [address] [address] Abdifatah Contreras, DPM [address] [place] [address] Tailor's bunionette, right (Primary Dx); Tailor's bunionette, left; Pain in both feet Social History Tobacco Use Types Packs/Day Years [...] have Coronavirus / COVID-19? No / Unsure 10/28/2019 2:02 PM EDT documented as of this encounter Last Filed Vital Signs Vital Sign Reading Time Taken Comments Blood Pressure - - Pulse - - Temperature 37 ??C (98.6 ??F) 10/28/2019 2:26 PM EDT Respiratory Rate - - Oxygen Saturation - - Inhaled Oxygen Concentration - - Weight 74.8 kg (165 lb) 10/28/2019 2:26 PM EDT Height 166.4 cm (5' 5.5 ) 10/28/2019 2:26 PM EDT Body Mass Index 27.04 10/28/2019 2:26 PM EDT documented in this encounter Progress Notes * Abdifatah Contreras DPM - 10/28/2019 2:00 PM EDT Subjective: Patient ID: Gardenia Childress is a 39 y.o. female. Chief Complaint: Foot Pain (5th pmj pain bilaterally) HPI 39 y.o. female with several years of pain to both feet. Worsened recently. Points to large bumps onoutside of both fifth toes. No prior treatment. Wears steel toe shoes every day, 5 days per week which causes pain. Works in [employer]. No injury or trauma. Patients past medical, family and social histories were reviewed and updated. There were no changesexcept as noted. Outpatient Medications Marked as Taking for the 10/28/19 encounter (Office Visit) with Abdifatah Contreras DPM Medication Sig Dispense Refill ??? amLODIPine-atorvastatatin (CADUET) 10-10 mg Oral Tablet Take 1 Tab by mouth daily. ??? aspirin 81 mg Oral Tablet, Delayed Release (E.C.) TAKE ONE TABLET BY MOUTH DAILY 30 Tab 8 ??? cetirizine (ZYRTEC) 10 mg Oral Tablet Take by mouth daily. ??? medroxyprogesterone acetate (DEPO-PROVERA IM) Inject into the muscle. Every three months ??? ranitidine HCl (ZANTAC ORAL) Take 1 Tab by mouth daily. Review of Systems Constitutional: Positive for activity change. Negative for chills, fatigue and fever. Eyes: Negative for visual disturbance. Respiratory: Negative for apnea and shortness of breath. Cardiovascular: Negative for chest pain and leg swelling. Gastrointestinal: Negative for nausea and vomiting. Musculoskeletal: Positive for gait problem. Negative for back pain and joint swelling. Skin: Negative for rash and wound. Neurological: Negative for dizziness, seizures, weakness, light-headedness, numbness and headaches. Hematological: Does not bruise/bleed easily. Psychiatric/Behavioral: Negative for agitation, behavioral problems and confusion. The patient is not nervous/anxious. All other systems reviewed and are negative. Objective: Vitals: 10/28/19 1426 Temp: 98.6 ??F (37 ??C) TempSrc: Oral Weight: 165 lb (74.8 kg) Height: 5' 5.5 (1.664 m) Before entering the room, my hands were washed/sanitized in standard fashion. A surgical mask was worn. Eyewear and nonsterile gloves were used when appropriate. The patient was instructed to follow recommendations for Respiratory Hygiene/Cough Etiquette. At the conclusion of the examination, my hands were re-washed. All equipment used was either discarded or cleaned appropriately for reuse. Body mass index is 27.04 kg/m??. Physical Exam Vascular Exam: Pedal pulses 2/4 for dorsalis pedis and posterior tibial arteries bilaterally. Capillary refill time < 3 seconds to digits 1-5 bilaterally. No vascular lesions or varicosities bilaterally. Neuro Exam: Sensation intact to light touch. No Tinel's or Vallieux's Signs. Deep tendon reflexes intact bilaterally. Proprioception intact bilaterally Musc Exam: Muscle strength 5/5 for lower extremity extrinsic musculature bilaterally. Range of motion is within normal limits for the ankle joint, subtalar joint, midtarsal joint, metatarsal phalangeal joints. Pain with palpation at the fifth metatarsal heads bilateral. Derm Exam: Skin texture and turgor are within normal limits. Assessment and Plan: Gardenia was seen today for foot pain. Diagnoses and all orders for this visit: Tailor's bunionette, right - XR FOOT BILATERAL AP LATERAL AND OBLIQUE STANDING; Future Tailor's bunionette, left - XR FOOT BILATERAL AP LATERAL AND OBLIQUE STANDING; Future Pain in both feet - XR FOOT BILATERAL AP LATERAL AND OBLIQUE STANDING; Future Plan: 1. E./M. x30 minutes with greater than 50% of time spent with patient dedicated to discussion of pathogenesis and treatment options for patient's problems including NSAIDS, offloading, padding, taping, orthopedic boot, and long-term outlook including possible need for surgical intervention. 2. Radiographs ordered bilateral feet 3. All questions and concerns were answered 4. Will try bunionette pads. 5. Follow up in 4 weeks. Abdifatah Contreras DPM 10/28/19 documented in this encounter Miscellaneous Notes * Patient Instructions - Jovanna Byrne CMA - 10/28/2019 2:00 PM EDT Images from the original note were not included. Patient Education Hand Washing Germs such as bacteria, viruses, and parasites are found everywhere. They can be in the air and water, and they can be on surfaces like food, door handles, and your skin. Every day, your hands come into contact with germs. Many of these germs can make you and your family sick. Washing your hands isone of the easiest and most effective ways to lower your risk of getting and sharing germs. When should I wash my hands? You should wash your hands whenever you think they are dirty. You should also wash your hands: ?? Before: ? Visiting a baby or anyone with a weakened disease-fighting system (immunesystem). ? Putting in or taking out contact lenses. ?? After: ? Using the bathroom or helping someone else use the bathroom. ? Working or playing outside. ? Touching or taking out the garbage. ? Touching anything dirty around your home. ? Sneezing, coughing, or blowing your nose. ? Using a phone, including your mobile phone. ? Touching an animal, animal food, animal waste, or its toys or leash. ? Touching money. ? Using household volunteer patient representative or toxic chemicals. ? Handling soiled clothes, bedding, or rags. ? Using public transportation. ? Going shopping, especially if you use a shopping cart or basket. ? Shaking hands. ? Handling livestock. ?? Before and after: ? Preparing food. ? Eating. ? Visiting or taking care of someone who is sick. This includes touching used tissues, toys, and clothes. ? Changing a bandage (dressing) or taking care of an injury or wound. ? Giving or taking medicine. ? Preparing a bottle for a baby. ? Feeding a baby or young child. ? Changing a diaper. What is the correct way to wash my hands? 1. Wet your hands with clean, running water. Turn off the water or move your hands out of the running water. 2. Apply liquid soap or bar soap to your hands. 3. Rub your hands together quickly to create lather. 4. Keep rubbing your hands together for at least 20 seconds. Thoroughly scrub all parts of your hands, including under your fingernails and between your fingers. 5. Rinse your hands with clean, running water until all the soap is gone. 6. Dry your hands using an air dryer or a clean paper or cloth towel, or let your hands air-dry. Donot use your clothing or a soiled towel to dry your hands. If you are in a public restroom, use a paper towel: ?? To turn off the water faucet. ?? To open the bathroom door. How can I clean my hands if I do not have soap and water? If soap and clean water are not available, use an alcohol-based wipe, spray, or hand gel. Use a hand-sanitizing agent that contains at least 60% alcohol. If you are preparing food, hand sanitizers are not recommended as a replacement for hand washing with soap and water. To use a hand care worker, follow the directions on the product, and: ?? Apply enough product to cover your hands. ?? Make sure you wipe, rub, or spray the product so that it reaches every part of your hands and wrists. Include the backs of your hands, between your fingers, and under your fingernails. ?? Rub the product onto your hands until it dries. Summary ?? Germs such as bacteria, viruses, and parasites are found everywhere. ?? Your hands come into contact with germs every day. Many of these germs can make you and your family sick. ?? Washing your hands is one of the easiest and most effective ways to lower your risk of getting and sharing germs. This information is not intended to replace advice given to you by your health care provider. Make sure you discuss any questions you have with your health care provider. Document Released: 11/26/2005 Document Revised: 01/14/2018 Document Reviewed: 01/14/2018 [employer] Patient Education ?? 2019 [employer]. documented in this encounter Plan of Treatment Upcoming Encounters Date Type Department Care Team (Late st Contact Info) Description 04/24/2024 10:45 AM EST Clinical Support [facility] [address] [place] [address] documented as of this encounter Goals Goal Patient Goal Type Associated Problems Recent Progress Patient-Stated? Author Maintain a healthy diet, exercise regularly and maintain an ideal body weight General No Thea Rubio MD Stay Tobacco Free Lifestyle No Thea Rubio MD documented as of this encounter Results * XR FOOT BILATERAL [...] 2:12 PM CLINICAL HISTORY: ??M21.621-Bunionette of right xjme-WLT-82-CM M21.622-Bunionette of left hqku-AOR-20-CM M79.671-Pain in right osms-FXJ-02-CM M79.672-Pain in left lbwt-MXO-55-CM COMPARISON: ??None. PROCEDURE COMMENTS: 3 views each [...] 2:12 PM CLINICAL HISTORY: M21.621-Bunionette of right gzei-HRV-19-CM M21.622-Bunionette of left ohiy-CPG-56-CM M79.671-Pain in right cyeo-LKF-95-CM M79.672-Pain in left uzqr-QUD-88-CM COMPARISON: None. PROCEDURE COMMENTS: 3 views each of the right and left foot and toesobtained. FINDINGS: Right: Joint spaces are maintained. No erosions or periostitis. No significant bony or soft tissue finding. Left: Joint spaces are maintained. No erosions or periostitis. No significant bony or soft tissue finding. IMPRESSION: No significant arthritic process or acute bone or soft tissue abnormality. - us Abdifatah Contreras DPM IMG DIAGNOSTIC IMAGING ORDERA BLES Final Result documented in this encounter Visit Diagnoses Diagnosis Tailor's bunionette, right- Primary Tailor's bunionette, left Pain in both feet Pain in limb Tailor's bunionette, right Tailor's bunionette, left Pain in both feet Pain in limb documented in this encounter Additional Health Concerns Assessment Noted Time PHQ-9 Depression Total Score: 2 10/07/19 18 8:00 AM EDT PHQ-2 Depression Total Score: 2 10/07/19 18 8:00 AM EDT documented as of this encounter Care Teams Director Technical Relationship Specialty Start Date End Date Thea Rubio MD PCP - General Family Medicine 09/13/14 07/16/22 documented as of this encounter
--- OUTSIDE RECORDS SUMMARY | 2024-03-14 18:18 | XMS_ITS | Encounter Summary ---
Author Organization [place] [address] Care Team Providers Care Process Checker Name Role Phone Thea Rubio MD Primary Care Provider [phone]- [phone] Reason for Referral * MRI/CAT Scan (Routine) - Closed Specialty Diagnoses / Procedures Referred By Contac t Referred To Contact Radiology Diagnoses Chronic left-sided low back pain with right-sided sciatica Procedures MRI LUMBAR SPINE WO CONTRAST Thea Rubio MD Phone: tel: fax: Referral ID Status Reason Start Date Expiration Date Visits Re quested Visits Authorized [id number] Closed 05/31/2019 05/30/2020 1 1 Reason for Visit * MRI/CAT Scan (Routine) - Closed Specialty Diagnoses / Procedures Referred By Contac t Referred To Contact Radiology Diagnoses Chronic left-sided low back pain with right-sided sciatica Procedures MRI LUMBAR SPINE WO CONTRAST Thea Rubio MD Phone: tel: fax: Referral ID Status Reason Start Date Expiration Date Visits Re quested Visits Authorized [id number] Closed 05/31/2019 05/30/2020 1 1 Encounter Details Date Type Department Care Team (Latest Contact Info) Description 06/21/2019 7:02 AM EST - 06/21/2019 11:59 PM EST Hospital Encounter [facility] [address] [place] [address] Thea Rubio MD [address] [facility] [place] [address] Chronic left-sided low back pain with right-sided sciatica Discharge Disposition: Home or Self Care Social [...] ONE TABLET BY MOUTH DAILY 30 Tab 10 07/20/2018 07/12/2019 cetirizine (ZYRTEC) 10 mg Oral Tablet Take by mouth daily. 03/13/2021 potassium chloride SA (K-DUR;KLOR-CON) 10 mEq Oral Tab Sust.Rel. Particle/Crystal Take 1 Tab by mouth daily. 30 Tab 6 03/25/2019 11/01/2019 documented as of this encounter Discharge Disposition Disposition Code Departure Means Destination Home or Self Care documented in this encounter Plan of Treatment Upcoming Encounters Date Type Department Care Team (Late st Contact Info) Description 04/24/2024 10:45 AM EST Clinical Support [facility] [address] [facility] [place] [address] documented as of this encounter Goals Goal Patient Goal Type Associated Problems Recent Progress Patient-Stated? Author Maintain a healthy diet, exercise regularly and maintain an ideal body weight General No Thea Rubio MD Stay Tobacco Free Lifestyle No Thea Rubio MD documented as of this encounter Procedures Procedure Name Priority Date/Time Associated Diagnosis Comments MRI LUMBAR SPINE WO CONTRAST Routine 06/21/2019 8:09 AM EST Chronic left-sided low back pain with right-sided sciatica documented in this encounter Results * MRI LUMBAR SPINE WO CONTRAST (06/21/2019 8:09 AM EST) Anatomical Region Laterality Modality Spine, L-spine Magnetic Resonan ce 06/21/2019 8:09 AM EST Impressions 06/21/2019 2:15 PM EST Essentially normal MRI of the lumbar spine. No significant discogenic disease or facet disease. No evidence of neural impingement or other abnormality. - Narrative 06/21/2019 2:15 PM EST MRI LUMBAR SPINE WITHOUT CONTRAST, ??06/21/2019 8:09 AM ?? CLINICAL HISTORY: ??M54.41-Lumbago with sciatica, right ivrx-GQE-26-CM G89.29-Other chronic dfri-DDR-94-CM COMPARISON: ??July 16, 2018. PROCEDURE COMMENTS: Multiplanar multiecho MR imaging of the lumbar spine without contrast. FINDINGS: ?? No fracture. No pars defect. No significant malalignments. The conus terminates at L1. The distal cord is normal. Imaged paravertebral soft tissues are normal. Level by level analysis: L1-L2: Unremarkable. L2-L3: Unremarkable. L3-L4: Unremarkable. L4-L5: Unremarkable. L5-S1: Unremarkable. Procedure Note Julio Cesar Saul MD - 06/21/2019 MRI LUMBAR SPINE WITHOUT CONTRAST, 06/21/2019 8:09 AM CLINICAL HISTORY: M54.41-Lumbago with sciatica, right jigt-UID-71-CM G89.29-Other chronic zhmb-WXE-07-CM COMPARISON: July 16, 2018. PROCEDURE COMMENTS: Multiplanar multiecho MR imaging of the lumbar spinewithout contrast. FINDINGS: No fracture. No pars defect. No significant malalignments. The conusterminates at L1. The distal cord is normal. Imaged paravertebral soft tissues arenormal. Level by level analysis: L1-L2: Unremarkable. L2-L3: Unremarkable. L3-L4: Unremarkable. L4-L5: Unremarkable. L5-S1: Unremarkable. IMPRESSION: Essentially normal MRI of the lumbar spine. No significant discogenicdisease or facet disease. No evidence of neural impingement or other abnormality. - us Thea Rubio MD IMG MRI ORDERABLES Final R esult documented in this encounter Visit Diagnoses Diagnosis Chronic left-sided low back pain with right-sided sciatica documented in this encounter Additional Health Concerns Assessment Noted Time PHQ-9 Depression Total Score: 2 10/07/19 18 8:00 AM EDT PHQ-2 Depression Total Score: 2 10/07/19 18 8:00 AM EDT documented as of this encounter Care Teams Process Checker Relationship Specialty Start Date End Date Thea Rubio MD PCP - General Family Medicine 09/13/14 07/16/22 documented as of this encounter
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
--- OUTSIDE RECORDS SUMMARY | 2024-03-14 18:18 | XMS_ITS | Encounter Summary ---
Author Organization [facility] [place] [address] Care Team Providers Care Center Rep Name Role Phone Thea Rubio MD Primary Care Provider +1- [phone] Encounter Details Date Type Department Care Team (Latest Contact Info) Description 10/06/2019 Travel Social History Tobacco Use Types Packs/Day [...] have Coronavirus / COVID-19? No / Unsure 10/06/2019 10:19 AM EDT documented as of this encounter Plan of Treatment Upcoming Encounters Date Type Department Care Team (Late st Contact Info) Description 04/24/2024 10:45 AM EST Clinical Support [facility] [address] [place] [address] documented as of this encounter [...] documented as of this encounter Care Teams Center Rep Relationship Specialty Start Date End Date Thea Rubio MD PCP - General Family Medicine 09/13/14 07/16/22 documented as of this encounter
--- OUTSIDE RECORDS SUMMARY | 2024-03-14 18:18 | XMS_ITS | Encounter Summary ---
Author Organization [place] [address] Care Team Providers Care Policy Cancellation Clerk Name Role Phone Thea Rubio MD Primary Care Provider +1- [phone] Reason for Visit * Reason Comments Medication Refill Encounter Details Date Type Department Care Team (Late st Contact Info) Description 05/08/2019 Refill [facility] [address] [place] [address] Thea Rubio MD [address] [place] [address] [id number] Medication Refill Social History Tobacco Use Types [...] Refills Last Filled Start Date End Date escitalopram oxalate (LEXAPRO) 20 mg Oral Tablet TAKE ONE TABLET BY MOUTH DAILY 30 Tab 05/08/2019 05/15/2019 documented in this encounter Plan of Treatment Upcoming Encounters Date Type Department Care Team (Late st Contact Info) Description 04/24/2024 10:45 AM EST Clinical Support [facility] [address] [place] [address] documented as of this encounter [...] Discontinue Reason Start Date End Da te escitalopram oxalate (LEXAPRO) 20 mg Oral Tablet TAKE ONE TABLET BY MOUTH DAILY 10/25/2018 05/08/2019 documented as of this encounter Additional Health Concerns Assessment Noted Time PHQ-9 Depression Total Score: 2 10/07/19 18 8:00 AM EDT PHQ-2 Depression Total Score: 2 10/07/19 18 8:00 AM EDT documented as of this encounter Care Teams Policy Cancellation Clerk Relationship Specialty Start Date End Date Thea Rubio MD PCP - General Family Medicine 09/13/14 07/16/22 documented as of this encounter
--- OUTSIDE RECORDS SUMMARY | 2024-03-14 18:18 | XMS_ITS | Encounter Summary ---
Author Organization [facility] [place] [address] Care Team Providers Care Cake Press Operator Helper Name Role Phone Thea Rubio MD Primary Care Provider +1- [phone] Encounter Details Date Type Department Care Team (Latest Contact Info) Description 10/27/2019 Travel Social History Tobacco Use Types Packs/Day [...] 04/24/2024 10:45 AM EST Clinical Support [facility] [address] [place] [address] documented as of this encounter [...] as of this encounter Care Teams Cake Press Operator Helper Relationship Specialty Start Date End Date Thea Rubio MD PCP - General Family Medicine 09/13/14 07/16/22 documented as of this encounter
--- OUTSIDE RECORDS SUMMARY | 2024-03-14 18:18 | XMS_ITS | Encounter Summary ---
Author Organization [place] [address] Care Team Providers Care National Sales Name Role Phone Thea Rubio MD Primary Care Provider [phone]- [phone] Abdifatah Uriarte MD Unavailable [phone] Reason for Visit * Reason Comments Consult Abnormal pap, wants hysterectomy Encounter Details Date Type Department Care Team (Latest Contact Info) Description 12/16/2019 2:12 PM EDT - 12/16/2019 11:59 PM EDT Hospital Encounter [facility] [place] [address] Abdifatah Uriarte MD [address] [place] [address] [place] [address] Dysplasia of cervix, low grade (JACQUI 1) (Primary Dx) Discharge Disposition: Home or Self [...] Sign Reading Time Taken Comments Blood Pressure 135/84 12/16/2019 2:48 PM EDT Pulse 61 12/16/2019 2:48 PM EDT Temperature 36.7 ??C (98 ??F) 12/16/2019 2:48 PM EDT Respiratory Rate 18 12/16/2019 2:48 PM EDT Oxygen Saturation 100% 12/16/2019 2:48 PM EDT Inhaled Oxygen Concentration - - Weight 72.6 kg (160 lb) 12/16/2019 2:48 PM EDT Height 166.4 cm (5' 5.5 ) 12/16/2019 2:48 PM EDT Body Mass Index 26.22 12/16/2019 2:48 PM EDT documented in this encounter Medications at Time [...] or Self Care documented in this encounter Progress Notes * Abdifatah Uriarte MD - 12/16/2019 3:00 PM EDT Images from the original note were not included. [facility] [place] [address] GYNECOLOGIC ONCOLOGY CONSULT NOTE Patient: Gardenia Childress [facility]: [id number] Date of : 1980 Age: 40 y.o. Date of Service: 12/16/2019 Chief complaint: I just want to be sure everything is ok Assessment/Plan: 1. Dysplasia of cervix, low grade (JACQUI 1) Discussed with patient the workup to date and management of cervical dysplasia. I indicated that hysterectomy for the indication of JACQUI I is overtreatment and the risk of negative outcome from surgery is higher than the risk inherent in this dysplasia. I did indicate that excision with LEEP would also be reasonable treatment. Pt very much dislikes the anxiety of following for Paps and colposcopy.I explained that even hysterectomy would not be a guarantee against HPV-related disease as it can involve the cervix, vagina, vulva, anus, and oropharynx. We discussed HPV vaccination and after checking this is available through Dr Gillespie. We also discussed the role of smoking in HPV-related disease, and I indicated that smoking cessation would have a larger impact in pt remaining free of hpv-related disease than the potential contribution of hysterctomy. I asked pt to follow with Dr. Gillespie as scheduled. 45 minute visit, majority in discussion/counseling. Subjective: History of present illness: Gardenia Childress is a 40 y.o. who is seen today at the request of Dr. Gillespie for evaluation of JACQUI III. She is free of any symptoms- no pain or abnormal bleeding. She does express some anxiety about her diagnosis and the follow-up necessary and expresses desire for definitive management. Past Medical History: Diagnosis Date ??? Abnormal [...] ??? COLONOSCOPY 01/12/2018 Dr. Aaron Rocha, with [facility]. Normal colon ??? UPPER GASTROINTESTINAL ENDOSCOPY 12/04/2017 at , Dr. Aaron Rocha OB History Para Term AB Living 4 2 2 2 SAB TAB Ectopic Multiple Live Births 2 # Outcome Date GA Lbr Oscar/2nd Weight Sex Delivery Anes PTL Lv 4 SAB 3 SAB 2 Term Vag-Spont 1 Term Vag-Spont Obstetric Comments Age of menarche 12. 2 Vaginal deliveries. Abnormal pap X3. ECC and Cervical bx 10/21/2019 JACQUI I , LSIL On Depo-provera X 2 years. LMP 2 years ago. Social History Socioeconomic History ??? Marital status: [...] years: 0.10 Quit date: 04/21/1994 Years since quittin.7 ??? Smokeless tobacco: Never Used Substance and Sexual Activity ??? Alcohol use: No Alcohol/week: 0.0 oz ??? Drug use: No ??? Sexual activity: Yes Partners: Male control/protection: Injection Family History Problem Relation Age of Onset [...] Leigha huddleston, (sp ?), causes head aneurysms. Current Outpatient Medications on File Prior to Encounter Medication Sig Dispense Refill ??? amLODIPine (NORVASC) 2.5 mg Oral Tablet TAKE ONE TABLET BY MOUTH DAILY 30 Tab 3 ??? aspirin 81 mg Oral Tablet, Delayed Release (E.C.) TAKE ONE TABLET BY MOUTH DAILY 30 Tab 8 ??? cetirizine (ZYRTEC) 10 mg Oral Tablet Take by mouth daily. ??? ranitidine HCl (ZANTAC ORAL) Take 1 Tab by mouth daily. No current facility-administered medications on file prior to encounter. Allergies Allergen Reactions ??? Latex Rash ??? Latex, Natural Rubber Rash ??? Morphine Nausea And Vomiting ??? Metronidazole Rash Review of Systems Constitutional: Negative for chills, fever and malaise/fatigue. HENT: Negative for hearing loss. Eyes: Negative for blurred vision and double vision. Respiratory: Negative for cough and shortness of breath. Cardiovascular: Negative for chest pain and leg swelling. Gastrointestinal: Negative for abdominal pain, constipation, diarrhea, nausea and vomiting. Genitourinary: Negative for dysuria and hematuria. Musculoskeletal: Negative for joint pain and myalgias. Skin: Negative for rash. Neurological: Negative for tingling, focal weakness, loss of consciousness and weakness. Allergies Reviewed - 01/23/20 Konstantin - Abdifatah Uriarte MD Medications Reviewed - 01/23/20 Konstantin - Abdifatah Uriarte MD Problem List Reviewed - 01/23/20 Konstantin - Abdifatah Uriarte MD Medical History Reviewed - 01/23/20 Konstantin - Abdifatah Uriarte MD Objective: Vitals: 12/16/19 1448 BP: 135/84 BP Location: Right arm Patient Position: Sitting Pulse: 61 Resp: 18 Temp: 98 ??F (36.7 ??C) TempSrc: Oral SpO2: 100% Weight: 160 lb (72.6 kg) Height: 5' 5.5 (1.664 m) Estimated body mass index is 26.22 kg/m?? as calculated from the following: Height as of this encounter: 5' 5.5 (1.664 m). Weight as of this encounter: 160 lb (72.6 kg). Physical Exam Constitutional: General: She is not in acute distress. Appearance: She is well-developed. HENT: Head: Normocephalic. Eyes: General: No scleral icterus. Neck: Thyroid: No thyromegaly. Cardiovascular: Rate and Rhythm: Normal rate and regular rhythm. Heart sounds: Normal heart sounds. No murmur. Pulmonary: Effort: Pulmonary effort is normal. No respiratory distress. Breath sounds: Normal breath sounds. No wheezing or rales. Abdominal: General: There is no distension. Palpations: Abdomen is soft. There is no mass. Tenderness: There is no abdominal tenderness. Genitourinary: Comments: Pelvic: External genitalia are normal female. Vaginal mucosa is without lesions or pathologic discharge. Cervix is small and without lesions Uterus small, mid position, mobile, non-tender Adnexae without lesions or masses, non-tender Rectovaginal confirms, normal tone Musculoskeletal: Normal range of motion. General: No tenderness. Right lower leg: No edema. Left lower leg: No edema. Lymphadenopathy: Cervical: No cervical adenopathy. Skin: Findings: No erythema or rash. Neurological: Mental Status: She is alert and oriented to person, place, and time. Psychiatric: Behavior: Behavior normal. Results: Labs: No results found for this or any previous visit (from the past 336 hour(s)). I have reviewed and summarized the above patient's laboratory findings. Imaging: No results found. Thank you for involving us in the care of Ms. Childress. We will continue to update you on her progress. MEDICAL DECISION MAKING: I have reviewed and summarized above the patient's MD notes. I have reviewed and summarized above the patient's laboratory data I have reviewed and summarized above the patient's radiology reports. I have reviewed the patient's radiology images and agree with the above assessment. Abdifatah Uriarte MD Gynecologic Oncology documented in this encounter Plan of Treatment Upcoming Encounters Date Type Department Care Team (Late st Contact Info) Description 04/24/2024 10:45 AM EST Clinical Support [facility] [address] [place] [address] documented as of this encounter Goals Goal Patient Goal Type Associated Problems Recent Progress Patient-Stated? Author Maintain a healthy diet, exercise regularly and maintain an ideal body weight General No Thea Rubio MD Stay Tobacco Free Lifestyle No Thea Rubio MD documented as of this encounter Visit Diagnoses Diagnosis Dysplasia of cervix, low grade (JACQUI 1)- Primary Mild dysplasia of cervix documented in this encounter Additional Health Concerns Assessment Noted Time PHQ-9 Depression Total Score: 2 10/07/19 18 8:00 AM EDT PHQ-2 Depression Total Score: 2 10/07/19 18 8:00 AM EDT documented as of this encounter Care Teams National Sales Relationship Specialty Start Date End Date Thea Rubio MD PCP - General Family Medicine 09/13/14 07/16/22 Abdifatah Uriarte MD [address] [facility] [place] [address] Consulting Physician Obstetrics & Gynecology-Gynecologic Oncology 12/16/19 documented as of this encounter
--- OUTSIDE RECORDS SUMMARY | 2024-03-14 18:18 | XMS_ITS | Encounter Summary ---
Author Organization [place] [address] Care Team Providers Care Dried Yeast Supervisor Name Role Phone Thea Rubio MD Primary Care Provider [phone] Reason for Visit * Reason Onset Date Comments Procedure 11/16/2019 Encounter Details Date Type Department Care Team (Late st Contact Info) Description 11/16/2019 Telephone [facility] [address] [place] [phone] Misty Gillespie MD [address] [place] [address] Procedure Social History Tobacco Use Types Packs/Day Years [...] encounter Miscellaneous Notes * Telephone Encounter - Misty Gillespie MD - 11/16/2019 10:03 AM EDT Pt aware I was going to refer her to [facility] for hysterectomy due to her extensive surgical history and large abdominal scars. I have called them this morning and they will call her to schedule consultation. * Telephone Encounter - Denise Fisher ABR-OE - 11/16/2019 8:53 AM EDT Patient states she wants Hysterectomy instead of pap in 1 year what would youlike me to schedule. documented in this encounter Plan of Treatment Upcoming Encounters Date Type Department Care Team (Late st Contact Info) Description 04/24/2024 10:45 AM EST Clinical Support [facility] [address] [place] [phone] documented as of this encounter Goals Goal [...] documented as of this encounter Care Teams Dried Yeast Supervisor Relationship Specialty Start Date End Date Thea Rubio MD PCP - General Family Medicine 09/13/14 07/16/22 documented as of this encounter
--- OUTSIDE RECORDS SUMMARY | 2024-03-14 18:18 | XMS_ITS | Encounter Summary ---
Author Organization [facility] [place] [address] Care Team Providers Care Auto Porter Name Role Phone Thea Rubio MD Primary Care Provider [phone]- [phone] Encounter Details Date Type Department Care Team (Latest Contact Info) Description 10/13/2019 Travel Social History Tobacco Use Types Packs/Day [...] have Coronavirus / COVID-19? No / Unsure 10/13/2019 1:10 PM EDT documented as of this encounter Plan of Treatment Upcoming Encounters Date Type Department Care Team (Late st Contact Info) Description 04/24/2024 10:45 AM EST Clinical Support [facility] [address] [place] [address] documented as of this encounter [...] as of this encounter Care Teams Auto Porter Relationship Specialty Start Date End Date Thea Rubio MD PCP - General Family Medicine 09/13/14 07/16/22 documented as of this encounter
--- OUTSIDE RECORDS SUMMARY | 2024-03-14 18:18 | XMS_ITS | Encounter Summary ---
Author Organization [place] [address] Care Team Providers Care Pyrometer Temperature Regulator Name Role Phone Thea Rubio MD Primary Care Provider [phone]- [phone] Reason for Visit * Reason Comments Medication Refill Encounter Details Date Type Department Care Team (Late st Contact Info) Description 05/15/2019 Refill [facility] [address] [place] [address] Thea Rubio MD [address] [place], [place] [id number] Medication Refill Social History Tobacco Use Types [...] Tablet TAKE ONE TABLET BY MOUTH DAILY 90 Tab 05/15/2019 12/16/2019 documented in this encounter Plan of Treatment Upcoming Encounters Date Type Department Care Team (Late st Contact Info) Description 04/24/2024 10:45 AM EST Clinical Support [facility] [address] [place] [address] documented as of this encounter [...] Tablet TAKE ONE TABLET BY MOUTH DAILY 05/08/2019 05/15/2019 documented as of this encounter Additional Health Concerns Assessment Noted Time PHQ-9 Depression Total Score: 2 10/07/19 18 8:00 AM EDT PHQ-2 Depression Total Score: 2 10/07/19 18 8:00 AM EDT documented as of this encounter Care Teams Pyrometer Temperature Regulator Relationship Specialty Start Date End Date Thea Rubio MD PCP - General Family Medicine 09/13/14 07/16/22 documented as of this encounter
--- OUTSIDE RECORDS SUMMARY | 2024-03-14 18:18 | XMS_ITS | Encounter Summary ---
Author Organization [place] [address] Care Team Providers Care Financial Analysis Manager Name Role Phone Thea Rubio MD Primary Care Provider +1- [phone] Reason for Referral * Mammography (Routine) - Closed Specialty Diagnoses / Procedures Referred By Amalia tuttle Referred To Contact Radiology Diagnoses Encounter for screening mammogram for malignant neoplasm of breast Family history of breast cancer Procedures MM MAMMO DIGITAL MADELEINE SCREEN BILAT MM MAMMO DIGITAL SCREENING W Misty Colón MD [address] [place] [address] Phone: tel: fax: Referral ID Status Reason Start Date Expiration Date Visits Re quested Visits Authorized [id number] Closed 10/01/2019 09/30/2021 1 1 Reason for Visit * Mammography (Routine) - Closed Specialty Diagnoses / Procedures Referred By Amalia tuttle Referred To Contact Radiology Diagnoses Encounter for screening mammogram for malignant neoplasm of breast Family history of breast cancer Procedures MM MAMMO DIGITAL MADELEINE SCREEN BILAT MM MAMMO DIGITAL SCREENING W Misty Colón MD [address] [place] [address] Phone: tel: fax: Referral ID Status Reason Start Date Expiration Date Visits Re quested Visits Authorized [id number] Closed 10/01/2019 09/30/2021 1 1 Encounter Details Date Type Department Care Team (Late st Contact Info) Description 10/07/2019 9:04 AM EDT - 10/07/2019 10:29 AM EDT Hospital Encounter [facility] [address] [place] [address] Misty Gillespie MD [address] [place] [address] Encounter for screening mammogram for malignant neoplasm of breast; Family history of breast cancer Discharge Disposition: Home or Self Care Social [...] have Coronavirus / COVID-19? No / Unsure 10/07/2019 9:57 AM EDT documented as of this encounter [...] documented in this encounter Progress Notes * Thea Rubio MD - 10/07/2019 9:15 AM EDT Results sent to pt by MyChart documented in this encounter Plan of Treatment Upcoming Encounters Date Type Department Care Team (Late st Contact Info) Description 04/24/2024 10:45 AM EST Clinical Support [facility] [address] [facility] [place] [id number] documented as of this encounter Goals Goal Patient Goal Type Associated Problems Recent Progress Patient-Stated? Author Maintain a healthy diet, exercise regularly and maintain an ideal body weight General No Thea Rubio MD Stay Tobacco Free Lifestyle No Thea Rubio MD documented as of this encounter Procedures Procedure Name Priority Date/Time Associated Diagnosis Comments MM MAMMO DIGITAL MADELEINE SCREEN BILAT Routine 10/07/2019 9:20 AM EDT Encounter for screening mammogram for malignant neoplasm of breast Family history of breast cancer documented in this encounter Results * MM MAMMO DIGITAL MADELEINE SCREEN BILAT (10/07/2019 9:20 AM EDT) Anatomical Region Laterality Modality Breast Bilateral Mammography 10/07/2019 11:2 9 AM EDT Impressions 10/07/2019 11:29 AM EDT Negative ??([id number]) ~ RECOMMENDATION: Routine screening mammogram in 1 [...] the next mammogram, in accordance with the [employer] and the Society of Breast Imaging recommendations. Narrative 10/07/2019 11:29 AM EDT Procedure:MM MAMMO DIGITAL MADELEINE SCREEN BILAT ~ Reason for exam: screening, asymptomatic. Z12.31-Encounter for screening mammogram for malignant neoplasm of [id number]-QXZ-37-CM Z80.3-Family history of malignant neoplasm of okefar-BOK-70-CM ~ MM MAMMO DIGITAL MADELEINE SCREEN BILAT Bilateral CC and MLO view(s) were taken. Technologist: Mere Ayers, RT The breast tissue is heterogeneously dense. ??This may lower the sensitivity of mammography. Prior study comparison: Baseline study without comparison. No mammographic evidence of malignancy. ~ Procedure Note Adriana Javier MD - 10/07/2019 Procedure:MM MAMMO DIGITAL MADELEINE SCREEN BILAT ~ Reason for exam: screening, asymptomatic. Z12.31-Encounter for screening mammogram for malignant neoplasm of [id number]-KIC-56-CM Z80.3-Family history of malignant neoplasm of mzurcl-FSL-52-CM ~ MM MAMMO DIGITAL MADELEINE SCREEN BILAT Bilateral CC and MLO view(s) were taken. Technologist: Mere Ayers, The breast tissue is heterogeneously dense. This may lower thesensitivity of mammography. Prior study comparison: Baseline study without comparison. No mammographic evidence of malignancy. ~ IMPRESSION: Negative ([id number]) ~ RECOMMENDATION: Routine screening mammogram in 1 [...] the next mammogram, in accordance with the [employer] and the Society of Breast Imaging recommendations. Misty Gillespie MD IMG MAMMOGRAPHY ORDERABLES Final Result documented in this encounter Visit Diagnoses Diagnosis Encounter for screening mammogram for malignant neoplasm of breast Other screening mammogram Family history of breast cancer Family history of malignant neoplasm of breast documented in this encounter Additional Health Concerns Assessment Noted Time PHQ-9 Depression Total Score: 2 10/07/19 18 8:00 AM EDT PHQ-2 Depression Total Score: 2 10/07/19 18 8:00 AM EDT documented as of this encounter Care Teams Financial Analysis Manager Relationship Specialty Start Date End Date Thea Rubio MD PCP - General Family Medicine 09/13/14 07/16/22 documented as of this encounter
--- OUTSIDE RECORDS SUMMARY | 2024-03-14 18:18 | XMS_ITS | Encounter Summary ---
Author Organization [facility] [place] [address] Care Team Providers Care Blacktop Paver Operator Name Role Phone Thea Rubio MD Primary Care Provider [phone]- [phone] Abdifatah Uriarte MD Unavailable [phone] Reason for Visit * Reason Comments Follow-up 8 mo ck * Consultation (Routine) - Closed Specialty Diagnoses / Procedures Referred By Amalia tuttle Referred To Contact Internal Medicine-Cardiovascula r Disease / Cardiology Diagnoses Personal history of (corrected) congenital malformations of heart and circulatory system Nereida Mendoza 8 mon ck Procedures OFFICE VISIT Thea Rubio MD Phone: tel: fax: Migue Anne MD [address] [place] [address] Phone: tel: fax: Referral ID Status Reason Start Date Expiration Date Visits Re quested Visits Authorized [id number] Closed 12/16/2019 12/15/2020 99 99 Encounter Details Date Type Department Care Team (Late st Contact Info) Description 12/16/2019 1:00 PM EDT Office Visit [facility] [address] [place] [address] Migue Anne MD [address] [place] [address] ASD (atrial septal defect) (Primary Dx); Atypical chest pain Social History Tobacco Use Types Packs/Day [...] Sign Reading Time Taken Comments Blood Pressure 124/78 12/16/2019 1:02 PM EDT Pulse 74 12/16/2019 1:02 PM EDT Temperature - - Respiratory Rate - - Oxygen Saturation - - Inhaled Oxygen Concentration - - Weight 73.1 kg (161 lb 3.2 oz) 12/16/2019 1:02 P M EDT Height 166.4 cm (5' 5.5 ) 12/16/2019 1:02 PM EDT Body Mass Index 26.42 12/16/2019 1:02 PM EDT documented in this encounter Progress Notes * Migue Anne MD - 12/16/2019 1:00 PM EDT Chief Complaint Patient presents with ??? Follow-up 8 mo ck HPI: Gardenia Childress returned to the office for routine follow up ASD Feeling well. 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 Able to preform strenuous activities at work (lifting) without chest pain or shortness. ROS: Denies: chest pain, dyspnea/orthopnea/PND, cough, weight changes, palpitations, dizziness, syncope,edema, fever/chills, myalgias, arthralgias, abdominal pain, N/V, hematochezia, melena, falls Allergies Allergen Reactions ??? Latex Rash ??? Latex, Natural Rubber Rash ??? Morphine Nausea And Vomiting ??? Metronidazole Rash Current Outpatient Medications: ??? amLODIPine (NORVASC) 2.5 mg Oral Tablet, TAKE ONE TABLET BY MOUTH DAILY, Disp: 30 Tab, Rfl: 3 ??? aspirin 81 mg Oral Tablet, [...] Tab by mouth daily., Disp: , Rfl: Past Medical History: Diagnosis Date ??? Bile [...] ??? COLONOSCOPY 01/12/2018 Dr. Aaron Rocha, with [facility]. Normal colon ??? UPPER GASTROINTESTINAL ENDOSCOPY 12/04/2017 [...] Leigha huddleston, (sp ?), causes head aneurysms. Lab Results Component Value Date HGB 12.9 10/09/2018 HCT 39.6 10/09/2018 PLT 324 10/09/2018 CHOLESTEROL 154 05/14/2017 TRIG 67 05/14/2017 HDL 68 05/14/2017 LDLCALC 73 05/14/2017 ALT 6 10/09/2018 AST 13 10/09/2018 NA 139 10/09/2018 K 3.5 10/09/2018 CREATININE 0.75 10/09/2018 BUN 6 10/09/2018 CO2 23 10/09/2018 INR 1.06 07/04/2017 GLU 89 10/09/2018 Vitals: Vitals: 12/16/19 1302 BP: 124/78 Pulse: 74 Weight: 161 lb 3.2 oz (73.1 kg) Height: 5' 5.5 (1.664 m) Body mass index is 26.42 kg/m??. well tolerated Physical Exam: GEN: Alert, pleasant and oriented x3. Skin W/D. Resp easy. In no acute distress. HEENT: Sclerae anicteric. No xanthelasmas. EOM's intact. NECK: Supple. No JVD. No carotid bruits. LUNGS: clear to auscultation. No rales or wheezes. Chest wall nontender. HEART: RRR, no M/G/R ABD: soft, nontender, positive bowel sounds EXT: no edema, +2 radial, +2 PT pulses NEURO: no obvious focal abnormalities Results: Stress Echo 05/08: 9.8 METs negative ekg [...] No findingsto explain persistent chest pain ?? 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 Hx biliary atresia s/p Amber Procedure (hepatoportoenterostomy) as an infacnt - s/p dilation procedure of a biliary duct bout 10 years ago - recent assessment and felt stable Plan: - Continue current medications - Labs - Discussed low fat diet and reinforced aerobic exercise - RTO 8 months - Call for questions or concerns prior to next office visit Tiny Mendoza APRN Addendum: I personally interviewed and examined the above patient. I have participated in the decision makingfor the care of the patient in conjunction with Tiny SOLORIO. I agree with the outlined assessment and plan as noted. Exam: GENERAL APPEARANCE: In no acute distress RESPIRATORY: Normal breath sounds. No rales or wheezing HEART: Normal S1, S2. No S3, S4. No Murmur EXTREMITIES: No edema. Calves are soft with good capillary refill. Plan: Encouraged more aerobic exercise with goal weight loss of 10lbs Plan as outlined above Myra Anne MD documented in this encounter Miscellaneous Notes * Patient Instructions - Yanely Matthews RMA - 12/16/2019 1:00 PM EDT Please call [phone] in late Dec for a 8 mo check due in August 2020. documented in this encounter Plan of Treatment Upcoming Encounters Date Type Department Care Team (Late st Contact Info) Description 04/24/2024 10:45 AM EST Clinical Support [facility] [address] [place] [address] documented as of this encounter Goals Goal Patient Goal Type Associated Problems Recent Progress Patient-Stated? Author Maintain a healthy diet, exercise regularly and maintain an ideal body weight General No Thea Rubio MD Stay Tobacco Free Lifestyle No Tcheng, Thea Pimentel MD documented as of this encounter Results * LIPID SCREEN (12/16/2019 2:02 PM EDT) Cholesterol 137 <200 mg/dL 12/16/2019 3:00 PM EDT [facility] Comment: < 200 ?Desirable 200 - 239 ? Borderline High >= 240 ?High Triglyceride 73 <150 mg/dL 12/16/2019 3:00 PM EDT [facility] Comment: < 150 ? Normal 150 - 199 ?Borderline High 200 - 499 ?High ??>= 500 ? Very High HDL 55 >=40 mg/dL 12/16/2019 3:00 PM EDT [facility] Comment: ??> 60 ?Optimal 40 - 60 ?Acceptable ?? < 40 ?Low LDL Calculated 67 <100 mg/dL 12/16/2019 3:00 PM EDT [facility] Comment: < 100 ?Optimal 100 - 129 ? Near or above optimal 130 - 159 ? Borderline High 160 - 189 ? High >= 190 ?Very High Non-HDL-C Calculated 82 <=129 mg/dL 12/16/2019 3:00 PM EDT [facility] Comment: <130 ?Desirable 130-159 Above Desirable 160-189 Borderline High 190-219 High >= 220 ??Very High Fasting Specimen? No None 020 3:00 PM EDT to-[facility] Blood VENOUS BLOOD / Unknown Venipuncture / Unknown 12/16/2019 2:02 PM EDT 12/16/2019 2:02 PM EDT us Tiny Mendoza PLUGGER WORKER CHEMISTRY ORDERABLES Final Result [facility] [address] [facility] , [address] [place] [id number] * BASIC METABOLIC PANEL (12/16/2019 2:02 PM EDT) Sodium 139 136 - 145 mmol/L 12/16/2019 3:00 PM EDT [facility] Potassium 3.9 3.5 - 5.0 mmol/L 12/16/2019 3:00 PM EDT [facility] Chloride 105 98 - 107 mmol/L 12/16/2019 3:00 PM EDT [facility] Total CO2 22 22 - 29 mmol/L 12/16/2019 3:00 PM EDT [facility] Anion Gap 12 7 - 16 mmol/L 12/16/2019 3:00 PM EDT [facility] Calcium 8.8 8.6 - 10.4 mg/dL 12/16/2019 3:00 PM EDT [facility] Glucose Lvl 83 74 - 100 mg/dL 12/16/2019 3:00 PM EDT [facility] BUN 7 6 - 20 mg/dL 12/16/2019 3:00 PM EDT [facility] Creatinine 0.66 0.51 - 1.30 mg/dL 12/16/2019 3:00 PM EDT [facility] GFR Afr Am 131 >=60 mL/min/1.7 3 m2 12/16/2019 3:00 PM EDT [facility] GFR Non Afr Am 113 >=60 mL/min/1.7 3 m2 12/16/2019 3:00 PM EDT [facility] Comment: This estimated GFR was [...] 2:02 PM EDT 12/16/2019 2:02 PM EDT Tiny Mendoza APRN CHEMISTRY ORDERABLES Final Result [facility] [address] [facility] , [place] [address] [facility] [address] [place] [address] * CBC (12/16/2019 2:02 PM EDT) [facility] WBC 5.3 3.7 - 10.3 x10(3)/mcL 12/16/2019 [...] 2:02 PM EDT 12/16/2019 2:02 PM EDT Tiny Mendoza APRN HEMATOLOGY ORDERABLES Antonia l Result [facility] [address] [facility] , [place] [address] * TSH REFLEX (12/16/2019 2:02 PM EDT) TSH Reflex 1.520 0.270 - 4.200 mcIU/mL 12/16/2019 3:00 PM EDT to-BB[facility] Blood VENOUS BLOOD / Unknown Venipuncture / Unknown 12/16/2019 2:02 PM EDT 12/16/2019 2:02 PM EDT Narrative [facility] - 12/16/2019 3:00 PM EDT Ingestion of abimael doses of biotin (>5 mg/day) taken within 8 hours of drawing blood sample can interfere with this immunoassay test. Tiny Mendoza APRN CHEMISTRY ORDERABLES Final Result [facility] [address] [facility] , [place] [address] documented in this encounter Visit Diagnoses Diagnosis ASD (atrial septal defect)- Primary Ostium secundum type atrial septal defect Atypical chest pain Other chest pain documented in this encounter Discontinued Medications Medication Sig Discontinue Reason Start Date End Da te escitalopram oxalate (LEXAPRO) 20 mg Oral Tablet TAKE ONE TABLET BY MOUTH DAILY Discontinued by another clinician 05/15/2019 12/16/2019 etodolac (LODINE) 400 mg Oral Tablet Take 1 Tab by mouth 2 times daily as needed. DELETE-Therapy completed 10/27/2019 12/16/2019 ferrous sulfate 325 mg (65 mg iron) Oral TabletIndications:Iron deficiency anemia, unspecified iron deficiency anemia type Take 1 Tab by mouth daily. Discontinued by another clinician 12/17/2017 12/16/2019 potassium chloride SA (KLOR-CON) 10 mEq Oral Tab Sust.Rel. Particle/Crystal TAKE ONE TABLET BY MOUTH DAILY Discontinued by another clinician 11/01/2019 12/16/2019 documented as of this encounter Additional Health Concerns Assessment Noted Time PHQ-9 Depression Total Score: 2 10/07/19 18 8:00 AM EDT PHQ-2 Depression Total Score: 2 10/07/19 18 8:00 AM EDT documented as of this encounter Care Teams Blacktop Paver Operator Relationship Specialty Start Date End Date Thea Rubio MD PCP - General Family Medicine 09/13/14 07/16/22 Abdifatah Uriarte MD [address] [facility] [place] [id number] Consulting Physician Obstetrics & Gynecology-Gynecologic Oncology 12/16/19 documented as of this encounter
--- OUTSIDE RECORDS SUMMARY | 2024-03-14 18:18 | XMS_ITS | Encounter Summary ---
Author Organization [facility] [place] [address] Care Team Providers Care Underground Heavy Equipment Operator Name Role Phone Thea Rubio MD Primary Care Provider [phone]- [phone] Reason for Visit * Reason Onset Date Comments Results 10/21/2019 Hereditary cance r genetic testing Encounter Details Date Type Department Care Team (Late st Contact Info) Description 10/21/2019 Telephone [facility] [address] [place] [address] Marge Alfredo [address] [place] [address] Results (Hereditary cancer genetic testing) Social History Tobacco Use Types Packs/Day Years [...] have Coronavirus / COVID-19? No / Unsure 10/21/2019 8:52 AM EDT documented as of this encounter Miscellaneous Notes * Telephone Encounter - Marge Alfredo - 10/21/2019 2:00 PM EDT I contacted Ms. Childress to discuss her negative hereditary cancer 47 gene panel results. Recommendations are made based on family history. A copy of this result is available for review under the [facility]. A detailed clinic note to follow. * Telephone Encounter - Marge Alfredo - 10/21/2019 1:05 PM EDT I left a voicemail requesting Ms. Childress return my call to review the results of her hereditary cancer genetic testing. documented in this encounter Plan of Treatment Upcoming Encounters Date Type Department Care Team (Late st Contact Info) Description 04/24/2024 10:45 AM EST Clinical Support [facility] [address] [place] [address] documented as of this encounter Goals Goal [...] documented as of this encounter Care Teams Underground Heavy Equipment Operator Relationship Specialty Start Date End Date Thea Rubio MD PCP - General Family Medicine 09/13/14 07/16/22 documented as of this encounter
--- OUTSIDE RECORDS SUMMARY | 2024-03-14 18:18 | XMS_ITS | Encounter Summary ---
Author Organization [facility] [place] [address] Care Team Providers Care Senior Logistics Manager Name Role Phone Thea Rubio MD Primary Care Provider +1- [phone] Encounter Details Date Type Department Care Team (Latest Contact Info) Description 10/04/2019 Travel Social History Tobacco Use Types Packs/Day [...] have Coronavirus / COVID-19? No / Unsure 10/04/2019 9:12 AM EDT documented as of this encounter Plan of Treatment Upcoming Encounters Date Type Department Care Team (Late st Contact Info) Description 04/24/2024 10:45 AM EST Clinical Support [facility] [address] [place] [address] documented as of this [...] as of this encounter Care Teams Senior Logistics Manager Relationship Specialty Start Date End Date Thea Rubio MD PCP - General Family Medicine 09/13/14 07/16/22 documented as of this encounter
--- OUTSIDE RECORDS SUMMARY | 2024-03-14 18:18 | XMS_ITS | Encounter Summary ---
Author Organization [facility] [place] [address] Care Team Providers Care Director Of Science Name Role Phone Thea Rubio MD Primary Care Provider [phone]- [phone] Encounter Details Date Type Department Care Team (Latest Contact Info) Description 09/30/2019 Travel Social History Tobacco Use Types Packs/Day [...] have Coronavirus / COVID-19? No / Unsure 09/30/2019 3:45 PM EDT documented as of this encounter Plan of Treatment Upcoming Encounters Date Type Department Care Team (Late st Contact Info) Description 04/24/2024 10:45 AM EST Clinical Support [facility] [address] [place] [address] documented as of this encounter [...] as of this encounter Care Teams Director Of Science Relationship Specialty Start Date End Date Thea Rubio MD PCP - General Family Medicine 09/13/14 07/16/22 documented as of this encounter
--- OUTSIDE RECORDS SUMMARY | 2024-03-14 18:18 | XMS_ITS | Encounter Summary ---
Author Organization [facility] [place] [address] Care Team Providers Care Pediatric Orthodontist Name Role Phone Thea Rubio MD Primary Care Provider [phone]- [phone] Encounter Details Date Type Department Care Team (Latest Contact Info) Description 10/21/2019 Travel Social History Tobacco Use Types Packs/Day [...] 10:45 AM EST Clinical Support [facility] [address] [place] [address] documented as of this encounter [...] documented as of this encounter Care Teams Pediatric Orthodontist Relationship Specialty Start Date End Date Thea Rubio MD PCP - General Family Medicine 09/13/14 07/16/22 documented as of this encounter
--- OUTSIDE RECORDS SUMMARY | 2024-03-14 18:18 | XMS_ITS | Encounter Summary ---
Author Organization [place] [address] Care Team Providers Care Dry Chain Offbearer Name Role Phone Thea Rubio MD Primary Care Provider [phone]- [phone] Reason for Referral * Physical Therapy (Routine) - Closed Specialty Diagnoses / Procedures Referred By Contstephanie t Referred To Contact Physical Therapy Diagnoses Right leg pain Thea Rubio MD Phone: tel: fax: Referral ID Status Reason Start Date Expiration Date Visits Re quested Visits Authorized [id number] Closed 05/12/2019 05/11/2020 1 1 Question Answer Reason for Physical Therapy Evaluate and Treat - 4-6 visits to treat chronic LBP and Rt leg pain Reason for Visit * Reason Comments Pain leg cramps Encounter Details Date Type Department Care Team (Late st Contact Info) Description 05/12/2019 1:45 PM EST Office Visit [facility] [address] [place] [address] Thea Rubio MD [address] [place] [id number] Right leg pain (Primary Dx) Social History Tobacco Use Types [...] Sign Reading Time Taken Comments Blood Pressure 134/84 05/12/2019 1:50 PM EST Pulse 84 05/12/2019 1:50 PM EST Temperature 36.7 ??C (98 ??F) 05/12/2019 1:50 PM EST Respiratory Rate - - Oxygen Saturation - - Inhaled Oxygen Concentration - - Weight 73.9 kg (163 lb) 05/12/2019 1:50 PM EST Height 165.1 cm (5' 5 ) 05/12/2019 1:50 PM EST Body Mass Index 27.12 05/12/2019 1:50 PM EST documented in this encounter Ordered Prescriptions Prescription Sig Dispense Quantity Refills Last Filled Start Date End Date meloxicam (MOBIC) 15 mg Oral TabletIndications:R ight leg pain Take 1 Tab by mouth daily for 30 days. 30 Tab 05/12/2019 05/31/2019 documented in this encounter Progress Notes * Thea Rubio MD - 05/12/2019 1:45 PM EST Subjective Chief Complaint Patient presents with ??? Pain leg cramps Trouble with leg cramps in Rt leg for few mos. Pain is whole outer, post and ant lateral Rt leg from lower outer gluteal area, all way down leg, wrapping around to ant ankle to top of Rt foot. Has chronic lower back pain, pulled mm in low back 19 yrs ago when current 21 yo daughter was 4 yo.Pain has been on and off since 19 yrs ago. No numbness down Rt leg. No B/B issues. Sx worsening. Pain is about 5/10 at its worst. Occ hurts to walk. Patient Active Problem List Diagnosis ??? Congenital biliary atresia ??? Migraine without aura ??? Celiac artery stenosis (HCC) ??? Other chest pain ??? ASD (atrial septal defect) ??? Cyanocobalamin deficiency ??? Allergic rhinitis ??? Back pain ??? Celiac artery compression syndrome (HCC) ??? Overactive child ??? Anaclitic depression ??? Thyroid mass ??? Dysplasia of cervix, low grade (JACQUI 1) Current Outpatient Medications on File Prior to Visit Medication Sig Dispense Refill ??? aspirin 81 mg Oral Tablet, Delayed Release (E.C.) TAKE ONE TABLET BY MOUTH DAILY 30 Tab 10 ??? cetirizine (ZYRTEC) 10 mg Oral Tablet Take by mouth daily. ??? escitalopram oxalate (LEXAPRO) 20 mg Oral Tablet TAKE ONE TABLET BY MOUTH DAILY 30 Tab 0 ??? ferrous sulfate 325 mg (65 mg iron) Oral Tablet Take 1 Tab by mouth daily. ??? medroxyprogesterone acetate (DEPO-PROVERA IM) Inject into the muscle. Every three months ??? potassium chloride SA (K-DUR;KLOR-CON) 10 mEq Oral Tab Sust.Rel. Particle/Crystal Take 1 Tab bymouth daily. 30 Tab 6 ??? ranitidine HCl (ZANTAC ORAL) Take 1 Tab by mouth daily. No current facility-administered medications on file prior to visit. Social History Socioeconomic History ??? Marital status: Spouse name: None ??? Number of children: None ??? Years of education: None ??? Highest education level: None Tobacco Use ??? Smoking status: Former Smoker Packs/day: 0.50 Years: 0.20 Pack years: 0.10 Last attempt to quit: 04/21/1994 Years since quittin.0 ??? Smokeless tobacco: Never Used Substance and Sexual Activity ??? Alcohol use: No Alcohol/week: 0.0 oz ??? Drug use: No ??? Sexual activity: Yes Partners: Male Family History Problem Relation Age of Onset ??? Cancer Sister 32 ovarian and uterine ??? Diabetes Mother ??? Heart Disease Mother stentsx7 ??? High Blood Pressure Mother ??? Heart Attack Mother 35 ??? COPD Mother ??? Kidney Disease Mother ??? Heart Failure Mother ??? Cancer Paternal Aunt uterine ??? Cancer Paternal Uncle ? type ??? Cancer Maternal Grandmother breast ??? Diabetes Maternal Grandfather ??? Heart Disease Maternal Grandfather ??? Stroke Paternal Grandmother ??? Other Father Leigha huddleston, (sp ?), causes head aneurysms. Immunization History Administered Date(s) Administered ??? Tdap 09/26/2015 There are no preventive care reminders to display for this patient. Patient Care Team: Thea Rubio MD as PCP - General (Family Medicine) Review of Systems Neurological: Negative for weakness and numbness. All other systems reviewed and are negative. Objective BP 134/84 (BP Location: Left arm, Patient Position: Sitting) Pulse 84 Temp 98 ??F (36.7 ??C) (Oral) Ht 5' 5 (1.651 m) Wt 163 lb (73.9 kg) BMI 27.12 kg/m?? Physical Exam Vitals signs and nursing note reviewed. Constitutional: Appearance: She is not ill-appearing. Abdominal: General: Abdomen is flat. Tenderness: There is no abdominal tenderness. There is no guarding or rebound. Neurological: Mental Status: She is alert. Deep Tendon Reflexes: Reflex Scores: Patellar reflexes are 3+ on the right side and 3+ on the left side. Achilles reflexes are 3+ on the right side and 3+ on the left side. Low back exam Tenderness no Muscle strength lower extremities 5/5 and equal Straight leg raising Rt-negative at 50 degrees Straight leg raising Lt-negative at 50 degrees Sensation normal and equal both LE Lab Results Component Value Date WBC 6.9 10/09/2018 HGB 12.9 10/09/2018 HCT 39.6 10/09/2018 PLT 324 10/09/2018 CHOLESTEROL 154 05/14/2017 TRIG 67 05/14/2017 HDL 68 05/14/2017 LDLCALC 73 05/14/2017 ALT 6 10/09/2018 AST 13 10/09/2018 NA 139 10/09/2018 K 3.5 10/09/2018 CL 105 10/09/2018 CREATININE 0.75 10/09/2018 BUN 6 10/09/2018 CO2 23 10/09/2018 INR 1.06 07/04/2017 GLU 89 10/09/2018 TSHREFLEX 2.250 10/09/2018 XR LUMBAR SPINE AP AND LATERAL, 07/16/2018 4:04 PM ?? CLINICAL HISTORY: M99.03-Segmental and somatic dysfunction of lumbar [id number] ?? COMPARISON: 06/13/2012. ?? PROCEDURE COMMENTS: 3 views lumbar spine per protocol. ?? FINDINGS: ?? There is normal alignment of the lumbar spine. The vertebral body heights and intervertebral disc space heights are normal. There are no pars defects. The sacroiliac joints are normal. The pedicles are intact. ?? IMPRESSION: No acute abnormality of the lumbar spine. Diagnoses and all orders for this visit: Right leg pain-strongly suspect L5 radiculopathic sx but can't prove on exam. Try PT for chronic LBP. Consider MRI if PT no help. Try 1 mo of NSAID - meloxicam (MOBIC) 15 mg Oral Tablet; Take 1 Tab by mouth daily for 30 days. Dispense: 30 Tab; Refill: 0 - AMB REFERRAL TO PHYSICAL THERAPY [facility] Documentation Medication Compliance: Compliant all the time Understanding of Current Medications: Good Medication Compliance Barriers: None or N/A Self-Management Tools: Home blood pressure monitoring, Home weight monitoring Self-Management Ability: Good Willingness to Adopt Healthy Behaviors: Fair Potential Barriers to completing treatment plans today: No significant barriers [facility] Flowsheet was completed/reviewed as part of today's visit. Educated patient regarding the diagnosis, medication/treatment, goals, self- management tools and instructions based on their care plan. They verbalized understanding of the education given on the After Visit Summary [AVS] for today's visit. A copy of the AVS was provided either in writing and/or via [employer]. A new medicine was prescribed during this office visit. I did discuss the reason for prescribing this new medication. I also informed of possible likely side effects, but also encouraged them to readthe medication insert that will accompany their prescription and encouraged them to discuss any questions about the insert with their pharmacist. I instructed them to call if having side effects or possible allergic reaction after taking. I also discussed the risk of stopping the medication or deviating from prescribing instructions. Dosing instructions are present on the AVS and they are aware. I inquired of any questions and answered accordingly. documented in this encounter Miscellaneous Notes * Patient Instructions - Thea Rubio MD - 05/12/2019 1:45 PM EST Images from the original note were not included. Patient Education Back Exercises The following exercises strengthen the muscles that help to support the back. They also help to keep the lower back flexible. Doing these exercises can help to prevent back pain or lessen existing pain. If you have back pain or discomfort, try doing these exercises 2-3 times each day or as told by your health care provider. When the pain goes away, do them once each day, but increase the number of times that you repeat the steps for each exercise (do more repetitions). If you do not have back painor discomfort, do these exercises once each day or as told by your health care provider. Exercises Single Knee to Chest Repeat these steps 3-5 times for each le. Lie on your back on a firm bed or the floor with your legs extended. 2. Bring one knee to your chest. Your other leg should stay extended and in contact with the floor. 3. Hold your knee in place by grabbing your knee or thigh. 4. Pull on your knee until you feel a gentle stretch in your lower back. 5. Hold the stretch for 10-30 seconds. 6. Slowly release and straighten your leg. Pelvic Tilt Repeat these steps 5-10 times: 1. Lie on your back on a firm bed or the floor with your legs extended. 2. Bend your knees so they are pointing toward the ceiling and your feet are flat on the floor. 3. Tighten your lower abdominal muscles to press your lower back against the floor. This motion will tilt your pelvis so your tailbone points up toward the ceiling instead of pointing to your feet orthe floor. 4. With gentle tension and even breathing, hold this position for 5-10 seconds. Cat-Cow Repeat these steps until your lower back becomes more flexible: 1. Get into a [id number] position on a firm surface. Keep your hands under your shoulders, andkeep your knees under your hips. You may place padding under your knees for comfort. 2. Let your head hang down, and point your tailbone toward the floor so your lower back becomes rounded like the back of a cat. 3. Hold this position for 5 seconds. 4. Slowly lift your head and point your tailbone up toward the ceiling so your back forms a saggingarch like the back of a cow. 5. Hold this position for 5 seconds. Press-Ups Repeat these steps 5-10 times: 1. Lie on your abdomen (face-down) on the floor. 2. Place your palms near your head, about shoulder-width apart. 3. While you keep your back as relaxed as possible and keep your hips on the floor, slowly straighten your arms to raise the top half of your body and lift your shoulders. Do not use your back muscles to raise your upper torso. You may adjust the placement of your hands to make yourself more comfortable. 4. Hold this position for 5 seconds while you keep your back relaxed. 5. Slowly return to lying flat on the floor. Bridges Repeat these steps 10 times: 1. Lie on your back on a firm surface. 2. Bend your knees so they are pointing toward the ceiling and your feet are flat on the floor. 3. Tighten your buttocks muscles and lift your buttocks off of the floor until your waist is at almost the same height as your knees. You should feel the muscles working in your buttocks and the backof your thighs. If you do not feel these muscles, slide your feet 1-2 inches farther away from yourbuttocks. 4. Hold this position for 3-5 seconds. 5. Slowly lower your hips to the starting position, and allow your buttocks muscles to relax completely. If this exercise is too easy, try doing it with your arms crossed over your chest. Abdominal Crunches Repeat these steps 5-10 times: 1. Lie on your back on a firm bed or the floor with your legs extended. 2. Bend your knees so they are pointing toward the ceiling and your feet are flat on the floor. 3. Cross your arms over your chest. 4. Tip your chin slightly toward your chest without bending your neck. 5. Tighten your abdominal muscles and slowly raise your trunk (torso) high enough to lift your shoulder blades a tiny bit off of the floor. Avoid raising your torso higher than that, because it can put too much stress on your low back and it does not help to strengthen your abdominal muscles. 6. Slowly return to your starting position. Back Lifts Repeat these steps 5-10 times: 1. Lie on your abdomen (face-down) with your arms at your sides, and rest your forehead on the floor. 2. Tighten the muscles in your legs and your buttocks. 3. Slowly lift your chest off of the floor while you keep your hips pressed to the floor. Keep the back of your head in line with the curve in your back. Your eyes should be looking at the floor. 4. Hold this position for 3-5 seconds. 5. Slowly return to your starting position. Contact a health care provider if: ?? Your back pain or discomfort gets much worse when you do an exercise. ?? Your back pain or discomfort does not lessen within 2 hours after you exercise. If you have any of these problems, stop doing these exercises right away. Do not do them again unless your health care provider says that you can. Get help right away if: ?? You develop sudden, severe back pain. If this happens, stop doing the exercises right away. Do not do them again unless your health care provider says that you can. This information is not intended to replace advice given to you by your health care provider. Make sure you discuss any questions you have with your health care provider. Document Released: 05/15/2005 Document Revised: 08/11/2018 Document Reviewed: 06/01/2015 [employer] Interactive Patient Education ?? 2019 [employer] documented in this encounter Plan of Treatment Upcoming Encounters Date Type Department Care Team (Late st Contact Info) Description 04/24/2024 10:45 AM EST Clinical Support [facility] [address] [place] [address] Scheduled Referrals Name Type Priority Associated Diagnoses Orde r Schedule AMB REFERRAL TO PHYSICAL THERAPY Outpatient Referral Routine Right leg pain Ordered: 05/12/2019 documented as of this encounter Goals Goal Patient Goal Type Associated Problems Recent Progress Patient-Stated? Author Maintain a healthy diet, exercise regularly and maintain an ideal body weight General No Thea Rubio MD Stay Tobacco Free Lifestyle No Thea Rubio MD documented as of this encounter Visit Diagnoses Diagnosis Right leg pain- Primary Pain in limb documented in this encounter Discontinued Medications Medication Sig Discontinue Reason Start Date End Da te amLODIPine (NORVASC) 2.5 mg Oral TabletIndications:ASD (atrial septal defect) TAKE ONE TABLET BY MOUTH DAILY DELETE- Entered in Error 11/24/2018 05/12/2019 documented as of this encounter Additional Health Concerns Assessment Noted Time PHQ-9 Depression Total Score: 2 10/07/19 18 8:00 AM EDT PHQ-2 Depression Total Score: 2 10/07/19 18 8:00 AM EDT documented as of this encounter Care Teams Dry Chain Offbearer Relationship Specialty Start Date End Date Thea Rubio MD PCP - General Family Medicine 09/13/14 07/16/22 documented as of this encounter
--- OUTSIDE RECORDS SUMMARY | 2024-03-14 18:18 | XMS_ITS | Encounter Summary ---
Author Organization [facility] [place] [place] [address] Care Team Providers Care Medical Illustrator Name Role Phone Thea Rubio MD Primary Care Provider +1- [phone] Encounter Details Date Type Department Care Team (Latest Contact Info) Description 10/28/2019 Travel Social History Tobacco Use Types Packs/Day [...] 04/24/2024 10:45 AM EST Clinical Support [facility] [address] [place] [address] documented as of this encounter [...] documented as of this encounter Care Teams Medical Illustrator Relationship Specialty Start Date End Date Thea Rubio MD PCP - General Family Medicine 09/13/14 07/16/22 documented as of this encounter
--- OUTSIDE RECORDS SUMMARY | 2024-03-14 18:18 | XMS_ITS | Encounter Summary ---
Author Organization [place] [address] Care Team Providers Care Leaf Tinner Name Role Phone Thea Rubio MD Primary Care Provider +1- [phone] Reason for Referral * Consultation (Routine) - Closed Specialty Diagnoses / Procedures Referred By Amalia tuttle Referred To Contact Genetics Diagnoses Family history of ovarian cancer Misty Gillespie MD [address] [place] [address] Phone: tel: fax: [facility] [address] [place] [address] Phone: tel: fax: Referral ID Status Reason Start Date Expiration Date Visits Re quested Visits Authorized [id number] Closed 09/30/2019 09/29/2020 99 99 Reason for Visit * Reason Comments Gynecologic Exam * Consultation (Routine) - Closed Specialty Diagnoses / Procedures Referred By Amalia t Referred To Contact Obstetrics & Gynecology / Obstetrics and Gynecology Diagnoses Abnormal Pap smear of cervix NEW TOWER DRAGLINE OPERATOR - ABNORMAL PAP PER PCP Procedures NEW GYNECOLOGICAL Thea Rubio MD Phone: tel: fax: Misty Gillespie MD [address] [place] [address] Phone: tel: fax: Referral ID Status Reason Start Date Expiration Date Visits Re quested Visits Authorized [id number] Closed 10/28/2018 10/28/2019 99 99 Encounter Details Date Type Department Care Team (Late st Contact Info) Description 09/30/2019 3:40 PM EDT Office Visit [facility] [address] [place] [address] Misty Gillespie MD [address] [place] [id number] Well woman exam (Primary Dx); Family history of breast cancer; Family history of ovarian cancer Social History Tobacco Use Types Packs/Day Years [...] have Coronavirus / COVID-19? No / Unsure 10/01/2019 10:38 AM EDT documented as of this encounter Last Filed Vital Signs Vital Sign Reading Time Taken Comments Blood Pressure 118/80 09/30/2019 3:56 PM EDT Pulse - - Temperature 36.6 ??C (97.9 ??F) 09/30/2019 3:56 PM ED T Respiratory Rate - - Oxygen Saturation - - Inhaled Oxygen Concentration - - Weight 74.8 kg (165 lb) 09/30/2019 3:56 PM EDT Height 165.1 cm (5' 5 ) 09/30/2019 3:56 PM EDT Body Mass Index 27.46 09/30/2019 3:56 PM EDT documented in this encounter Progress Notes * Misty Gillespie MD - 09/30/2019 3:40 PM EDT TOWER DRAGLINE OPERATOR ANNUAL EXAM HPI: Patient is a 39 y.o. female presenting for annual exam. Amenorrheic on depo provera but did have a single period after being on it for a year and was worried about that. States she needs to be off depo as it's not good to be on for long period of time due to bone health. Also says all of her doctors want her off it but she's too high risk to have future so she just wants a hysterectomy. Patient's last menstrual period was 09/03/2019. Past Medical History: Diagnosis Date ??? Bile [...] ??? COLONOSCOPY 01/12/2018 Dr. Aaron Rocha, with [facility]. Normal colon ??? UPPER GASTROINTESTINAL ENDOSCOPY 12/04/2017 [...] Last attempt to quit: 04/21/1994 Years since quittin.4 ??? Smokeless tobacco: Never Used Substance and Sexual Activity ??? Alcohol use: No Alcohol/week: 0.0 oz ??? Drug use: No ??? Sexual activity: Yes Partners: Male Current Outpatient Medications: ??? aspirin 81 mg Oral Tablet, Delayed Release (E.C.), TAKE ONE TABLET BY MOUTH DAILY, Disp: 30 Tab, Rfl: 8 ??? cetirizine (ZYRTEC) 10 mg Oral Tablet, Take by mouth daily., Disp: , Rfl: ??? ferrous sulfate 325 mg (65 mg [...] 09/30/2019), Disp: 90 Tab, Rfl: 0 ??? potassium chloride SA (K-DUR;KLOR-CON) 10 mEq Oral Tab Sust.Rel. Particle/Crystal, Take 1 Tab by mouth daily. (Patient not taking: Reported on 09/30/2019), Disp: 30 Tab, Rfl: 6 Allergies Allergen Reactions ??? Latex Rash ??? Latex, Natural Rubber Rash ??? Morphine Nausea And Vomiting ??? Metronidazole Rash PHYSICAL EXAM: BP 118/80 Temp 97.9 ??F (36.6 ??C) (Oral) Ht 5' 5 (1.651 m) Wt 165 lb (74.8 kg) LMP 09/03/2019 BMI 27.46 kg/m?? General appearance: alert, well appearing, and in no distress. Exam of extremities: peripheral pulses normal, no pedal edema, no clubbing or cyanosis Skin exam - normal coloration and turgor, no rashes, no suspicious skin lesions noted. Breast exam: breasts appear normal, no suspicious masses, no skin or nipple changes or axillary nodes. Abdominal exam: soft, nontender, nondistended, Has horizontal laparotomy scar about 3 fingerbreadths superior to umbilicus extending across entire width of abdomen Pelvic exam: normal external genitalia, vulva, vagina, cervix, uterus and adnexa. Thyroid exam reveals thyroid is normal in size without nodules or tenderness. Review of Systems - Pertinent items are noted in HPI Assessment: 39 y.o. female presenting for annual exam: 1. Well woman exam [facility] TOWER DRAGLINE OPERATOR CYTOLOGY ORDER [facility] TOWER DRAGLINE OPERATOR CYTOLOGY ORDER TOWER DRAGLINE OPERATOR CYTOLOGY REQUEST (PAP ONLY) HPV HIGH RISK 2. Family history of breast cancer MM MAMMO DIGITAL SCREENING W CAD BILAT 3. Family history of ovarian cancer AMB REFERRAL TO GENETIC COUNSELING Patient states she wants a hysterectomy. I explained to her that she it is safe to continue the depo provera half-way as she has no contra-indications to progesterone therapy. Explained bone loss and how it is not clinically relevant and that it returns to normal level after depo provera is completed. I do agree she is too high risk for . She also reports a sister having ovarian cancer that spread to her uterus and cervix but now in remission in her 30s. We discussed this information would impact her surgery because if she is a genetic carrier for mutation predisposing her to ovarian cancer, then oophorectomy would be indicated. Otherwise, at her young age, she should preserve her ovaries. Patient will see genetic counselor for this issue. She does have complicated surgical history in her upper abdomen. She reports that the most recent laparotomy she had, she was told she had extensive scar tissue. I did read her discharge summary from that reported extensive adhesiolysis was performed. Given this information, I will likely refer her to senior geologist oncology for surgical management of her hysterectomy if she decides to proceed. iMsty Gillespie MD documented in this encounter Plan of Treatment Upcoming Encounters Date Type Department Care Team (Late st Contact Info) Description 04/24/2024 10:45 AM EST Clinical Support [facility] [address] [place] [address] Scheduled Referrals Name Type Priority Associated Diagnoses Order Schedule AMB REFERRAL TO GENETIC COUNSELING Outpatient Referral Routine Family history of ovarian cancer Ordered: 09/30/2019 documented as of this encounter Goals Goal Patient Goal Type Associated Problems Recent Progress Patient-Stated? Author Maintain a healthy diet, exercise regularly and maintain an ideal body weight General No Thea Rubio MD Stay Tobacco Free Lifestyle No Thea Rubio MD documented as of this encounter Procedures Procedure Name Priority Date/Time Associated Diagnosis Comments TOWER DRAGLINE OPERATOR CYTOLOGY REQUEST (PAP ONLY) Routine 09/30/2019 4:17 PM EDT Well woman exam [facility] TOWER DRAGLINE OPERATOR CYTOLOGY ORDER Routine 09/30/2019 4:17 PM EDT Well woman exam HPV HIGH RISK Routine 09/30/2019 4:17 PM EDT Well woman exam documented in this encounter Results * HPV HIGH RISK (09/30/2019 4:17 PM EDT) HPV HR Not Detected Not Detected 10/01/2019 2:50 AM EDT Retroficiency Thin Prep SPECIMEN FROM UTERINE CERVIX / Unknown 09/30/2019 4:17 PM EDT 09/30/2019 4:17 PM EDT Narrative PREFERRED [facility] - 10/01/2019 2:50 AM EDT This test was performed using the [...] with other available laboratory and clinical data.?? Misyt Gillespie MD MICROBIOLOGY - GENERAL [facility] Final Result Retroficiency [address] [facility] , [place] [address] * (ABNORMAL) TOWER DRAGLINE OPERATOR CYTOLOGY REQUEST (PAP ONLY) (09/30/2019 4:17 PM EDT) CASE REPORT Gynecologic Cytology Report ? Case: [id number] ? Authorizing Provider: ??Misty Gillespie MD ? Collected: ? 09/30/2019 1617 ? Ordering Location: ? [facility] ? Received: ?09/30/2019 1617 ? First Screen: ?Ry, Diego Rocha, ? CT ? Pathologist: ? Jesse Rodriguez MD ? Specimen: ?LIQUID-BASED PAP - CERVICAL/ENDOCERV ICAL, Cervix, Endocervical ? 10/01/2019 12:32 PM EDT [facility] PAP FINAL DIAGNOSIS Low grade squamous intraepithelial lesion(A) 10/01/2019 12:32 PM EDT [facility] OSCOPIC DESCRIPTION Microscopic examination is performed and the findings corroborate the diagnosis. 10/01/2019 12:32 PM EDT [facility] PAP SMEAR ADEQUACY Satisfactory for evaluation 10/01/2019 12:32 PM EDT [facility] ENDOCERVICAL T-ZONE Transformation zone present 10/01/2019 12:32 PM EDT [facility] EMBEDDED IMAGES 0 12:32 PM EDT [facility] PAP DISCLAIMER The Pap Smear is a screening test that aids in the detection of cervical cancer and cancer precursors. Both false positive and false negative results can occur. The test should be used at regular intervals, and positive results should be confirmed before definitive therapy. Processed using the ThinPrep Developer [employer] Automated cytology screening device ([employer]). 10/01/2019 12:32 PM EDT [facility] Thin Prep ENDOCERVICAL STRUCTURE / Unknown 09/30/2019 4:17 PM EDT 09/30/2019 4:17 PM EDT us Misty Gillespie MD CYTOLOGY ORDERABLES [place] [address] documented in this encounter Visit Diagnoses Diagnosis Well woman exam- Primary Routine general medical examination at a health care facility Family history of breast cancer Family history of malignant neoplasm of breast Family history of ovarian cancer Family history of malignant neoplasm of ovary documented in this encounter Additional Health Concerns Assessment Noted Time PHQ-9 Depression Total Score: 2 10/07/19 18 8:00 AM EDT PHQ-2 Depression Total Score: 2 10/07/19 18 8:00 AM EDT documented as of this encounter Care Teams Leaf Tinner Relationship Specialty Start Date End Date Thea Rubio MD PCP - General Family Medicine 09/13/14 07/16/22 documented as of this encounter
--- OUTSIDE RECORDS SUMMARY | 2024-03-14 18:18 | XMS_ITS | Encounter Summary ---
Author Organization [facility] [place] [address] Care Team Providers Care Manufacturing Automation Engineer Name Role Phone Thea Rubio MD Primary Care Provider +1- [phone] Encounter Details Date Type Department Care Team (Latest Contact Info) Description 10/01/2019 Travel Social History Tobacco Use Types Packs/Day [...] 04/24/2024 10:45 AM EST Clinical Support [facility] [address] [place] [address] documented as of this encounter [...] documented as of this encounter Care Teams Manufacturing Automation Engineer Relationship Specialty Start Date End Date Thea Rubio MD PCP - General Family Medicine 09/13/14 07/16/22 documented as of this encounter
--- OUTSIDE RECORDS SUMMARY | 2024-03-14 18:18 | XMS_ITS | Encounter Summary ---
Author Organization [place] Address [facility] [place] [address] Care Team Providers Care Heel Cementer Machine Name Role Phone Thea Rubio MD Primary Care Provider +1- [phone] Encounter Details Date Type Department Care Team (Latest Contact Info) Description 10/07/2019 10:30 AM EDT - 10/07/2019 11:59 PM EDT Hospital Encounter [facility] [address] [place] [id number] Genetic testing (Primary Dx) Discharge Disposition: Home or Self [...] 04/24/2024 10:45 AM EST Clinical Support [facility] [address] [place] [address] documented as of this encounter Goals Goal Patient Goal Type Associated Problems Recent Progress Patient-Stated? Author Maintain a healthy diet, exercise regularly and maintain an ideal body weight General No Thea Rubio MD Stay Tobacco Free Lifestyle No Thea Rbuio MD documented as of this encounter Procedures Procedure Name Priority Date/Time Associated Diagnosis Comments MISCELLANEOUS LAB Callback 10/07/2019 10: 47 AM EDT Genetic testing documented in this encounter Results * MISCELLANEOUS LAB (10/07/2019 10:47 AM EDT) Pathologist [facility] COMMENT See Scanned Image 10/07/2019 11:42 AM EDT [facility] Blood UPPER LIMB STRUCTURE / Unknown Venipuncture / Unknown 10/07/2019 10:47 AM EDT 10/07/2019 10:47 AM EDT us Ruel Chinchilla MD HEMATOLOGY ORDERABLES Final Result [facility] [address] [place] [address] documented in this encounter Visit Diagnoses Diagnosis Genetic testing- Primary Other investigation and testing for procreative management documented in this encounter Additional Health Concerns Assessment Noted Time PHQ-9 Depression Total Score: 2 10/07/19 18 8:00 AM EDT PHQ-2 Depression Total Score: 2 10/07/19 18 8:00 AM EDT documented as of this encounter Care Teams Heel Cementer Machine Relationship Specialty Start Date End Date Thea Rubio MD PCP - General Family Medicine 09/13/14 07/16/22 documented as of this encounter
--- OUTSIDE RECORDS SUMMARY | 2024-03-14 18:18 | XMS_ITS | Encounter Summary ---
Author Organization [place] [address] Care Team Providers Care Advertising Editor Name Role Phone Thea Rubio MD Primary Care Provider +1- [phone] Encounter Details Date Type Department Care Team (Late st Contact Info) Description 10/07/2019 1:30 PM EDT Office Visit [facility] [address] [place] [address] Misty Gillespie MD [address] [place], [place] [id number] Marge Alfredo [address] [place] [address] [place] [address] Family history of breast cancer (Primary Dx); Family history of ovarian cancer Discharge Disposition: Home or Self Care [...] AM EDT documented as of this encounter Discharge Disposition Disposition Code Departure Means Destination Home or Self Care documented in this encounter Progress Notes * Marge Alfredo - 10/07/2019 1:30 PM EDT Images from the original note were not included. HEREDITARY CANCER GENETIC COUNSELING CONSULTATION Name: Gardenia Childress CSN: [id number] : 1980 Consultation Date: 10/07/2019 Referring M.D. : Misty Gillespie MD Attending: Ruel Chinchilla MD Genetic Counselor: Marge Alfredo Reason for Visit: Ms. Childress was referred to genetic counseling to discuss her family history of cancer. Indication for Testing: We reviewed the reported features of hereditary cancer in the family as indicated below: ??? Sister diagnosed with ovarian cancer at 32 with metastasis to her uteres and cervix ??? Sister with pre-cancerous cells that prompted a MARIZA ??? Mother diagnosed with melanoma in her 30's, had pre-cancerous cells that prompted a MARIZA in her 40's ??? Maternal uncle diagnosed with cancer at an older age ??? Maternal first cousin diagnosed with leukemia in her 30's ??? Maternal grandmother diagnosed with breast cancer, in her 80's ??? Paternal aunt diagnosed with cancer at an older age Therefore, at this time, there are enough features of a hereditary cancer risk to warrant the consideration of genetic testing. Testing Ordered: A sample was collected for the [employer] Common Hereditary cancers panel (47 genes).Ms. Childress will be contacted via telephone once the results are in. We appreciate having been asked to participate in the care of Ms. Childress. Please feel free to call [facility] [phone] with any questions or concerns. Marcus Vu Genetic Navigator Marge Alfredo MS, [facility] Licensed, Certified Genetic Counselor documented in this encounter Plan of Treatment Upcoming Encounters Date Type Department Care Team (Late st Contact Info) Description 04/24/2024 10:45 AM EST Clinical Support [facility] [address] [place] [address] documented as of this encounter Goals Goal Patient Goal Type Associated Problems Recent Progress Patient-Stated? Author Maintain a healthy diet, exercise regularly and maintain an ideal body weight General No Thea Rubio MD Stay Tobacco Free Lifestyle No Thea Rubio MD documented as of this encounter Procedures Procedure Name Priority Date/Time Associated Diagnosis Comments GENETIC SCANNING 10/25/2019 1:31 PM EDT GENETIC SCANNING 10/25/2019 1:30 PM EDT documented in this encounter Results * GENETIC SCANNING (10/25/2019 1:31 PM EDT) 10/25/2019 1:31 PM EDT us Unknown Unknown HEMATOLOGY ORDERABLES Final Resu lt * GENETIC SCANNING (10/25/2019 1:30 PM EDT) 10/25/2019 1:30 PM EDT us Unknown Unknown HEMATOLOGY ORDERABLES Final Resu lt documented in this encounter Visit Diagnoses Diagnosis Family history of breast cancer- Primary Family history of malignant neoplasm of breast Family history of ovarian cancer Family history of malignant neoplasm of ovary documented in this encounter Additional Health Concerns Assessment Noted Time PHQ-9 Depression Total Score: 2 10/07/19 18 8:00 AM EDT PHQ-2 Depression Total Score: 2 10/07/19 18 8:00 AM EDT documented as of this encounter Care Teams Advertising Editor Relationship Specialty Start Date End Date Thea Rubio MD PCP - General Family Medicine 09/13/14 07/16/22 documented as of this encounter
--- OUTSIDE RECORDS SUMMARY | 2024-03-14 18:18 | XMS_ITS | Encounter Summary ---
Author Organization [facility] [place] [address] Care Team Providers Care Instrument Repairer Helper Name Role Phone Thea Rubio MD Primary Care Provider +1- [phone] Encounter Details Date Type Department Care Team (Latest Contact Info) Description 06/11/2019 Travel Social History Tobacco Use Types Packs/Day [...] Clinical Support [facility] [address] [place] [address] documented as of this encounter Goals Goal [...] documented as of this encounter Care Teams Instrument Repairer Helper Relationship Specialty Start Date End Date Thea Rubio MD PCP - General Family Medicine 09/13/14 07/16/22 documented as of this encounter
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
--- OUTSIDE RECORDS SUMMARY | 2024-03-14 18:18 | XMS_ITS | Encounter Summary ---
Author Organization [facility] [place] [address] Care Team Providers Care Customer Service Assistant Name Role Phone Thea Rubio MD Primary Care Provider +1- [phone] Encounter Details Date Type Department Care Team (Latest Contact Info) Description 06/21/2019 Travel Social History Tobacco Use Types Packs/Day [...] Clinical Support [facility] [address] [place] [address] documented as of this encounter Goals Goal [...] documented as of this encounter Care Teams Customer Service Assistant Relationship Specialty Start Date End Date Thea Rubio MD PCP - General Family Medicine 09/13/14 07/16/22 documented as of this encounter
--- OUTSIDE RECORDS SUMMARY | 2024-03-14 18:18 | XMS_ITS | Encounter Summary ---
Author Organization [place] [address] Care Team Providers Care Handbell Choir Director Name Role Phone Thea Rubio MD Primary Care Provider +1- [phone] Reason for Visit * Reason Onset Date Comments Appointment Needed 12/03/2019 Encounter Details Date Type Department Care Team (Late st Contact Info) Description 12/03/2019 Telephone [facility] [address] [place] [address] Migue Anne MD [address] [place] [address] Appointment Needed Social History Tobacco Use Types [...] Telephone Encounter - Heather Holden LPN - 12/03/2019 9:54 AM EDT Rescheduled to 12/16/19 at 1:00 with Nereida Mendoza APRN * Telephone Encounter - Magdalena Tello RMA - 12/03/2019 9:07 AM EDT Patient wants to cancel and r/s her appointment. Asked to be seen on 12/16/2019. documented in this encounter Plan of Treatment Upcoming Encounters Date Type Department Care Team (Late st Contact Info) Description 04/24/2024 10:45 AM EST Clinical Support [facility] [address] [place] [address] documented as of this encounter [...] documented as of this encounter Care Teams Handbell Choir Director Relationship Specialty Start Date End Date Thea Rubio MD PCP - General Family Medicine 09/13/14 07/16/22 documented as of this encounter
--- OUTSIDE RECORDS SUMMARY | 2024-03-14 18:18 | XMS_ITS | Encounter Summary ---
Author Organization [facility] [place] [address] Care Team Providers Care Pharmacy Informatics Specialist Name Role Phone Thea Rubio MD Primary Care Provider +1- [phone] Reason for Visit * Reason Comments Medication Refill Encounter Details Date Type Department Care Team ([facility] Contact Info) Description 07/12/2019 Refill [facility] [address] [place] [address] Migue Anne MD [address] [place] [address] Medication Refill Social History Tobacco Use Types [...] aspirin 81 mg Oral Tablet, Delayed Release (E.C.)Indications: ASD (atrial septal defect),H/O Amplatzer atrial septal defect closure TAKE ONE TABLET BY MOUTH DAILY 30 Tab 8 07/12/2019 03/20/2020 documented in this encounter Plan of Treatment Upcoming Encounters Date Type Department Care Team ([facility] Contact Info) Description 04/24/2024 10:45 AM EST Clinical Support [facility] [address] [place] [address] documented as of this [...] closure TAKE ONE TABLET BY MOUTH DAILY 07/20/2018 07/12/2019 documented as of this encounter Additional Health Concerns Assessment Noted Time PHQ-9 Depression Total Score: 2 10/07/19 18 8:00 AM EDT PHQ-2 Depression Total Score: 2 10/07/19 18 8:00 AM EDT documented as of this encounter Care Teams Pharmacy Informatics Specialist Relationship Specialty Start Date End Date Thea Rubio MD PCP - General Family Medicine 09/13/14 07/16/22 documented as of this encounter
--- OUTSIDE RECORDS SUMMARY | 2024-03-14 18:18 | XMS_ITS | Encounter Summary ---
Author Organization [place] [address] Care Team Providers Care Ophthalmic Nurse Name Role Phone Thea Rubio MD Primary Care Provider +1- [phone] Reason for Visit * Reason Comments Procedure colp/lgsil * Consultation (Routine) - Closed Specialty Diagnoses / Procedures Referred By Contac t Referred To Contact Obstetrics & Gynecology / Obstetrics and Gynecology Diagnoses Abnormal Pap smear of cervix [place] *mask Procedures RETURN GEODESIST VISIT Misty Gillespie MD [address] [place] [address] Phone: tel: fax: Misty Gillespie MD [address] [place] [address] Phone: tel: fax: Referral ID Status Reason Start Date Expiration Date Visits Re quested Visits Authorized [id number] Closed 12/01/2019 11/30/2020 1 1 Encounter Details Date Type Department Care Team (Late st Contact Info) Description 10/21/2019 8:20 AM EDT Office Visit [facility] [address] [place] [address] Misty Gillespie MD [address] [place] [address] 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) Social History Tobacco Use Types [...] Sign Reading Time Taken Comments Blood Pressure 122/76 10/21/2019 9:00 AM EDT Pulse - - Temperature 36.4 ??C (97.5 ??F) 10/21/2019 9:00 AM ED T Respiratory Rate - - Oxygen Saturation - - Inhaled Oxygen Concentration - - Weight 73.5 kg (162 lb) 10/21/2019 9:00 AM EDT Height 165.1 cm (5' 5 ) 10/21/2019 9:00 AM EDT Body Mass Index 26.96 10/21/2019 9:00 AM EDT documented in this encounter Progress Notes * Misty Gillespie MD - 10/21/2019 8:20 AM EDT COLPOSCOPY PROCEDURE NOTE Pap Smear: low-grade squamous intraepithelial neoplasia (LGSIL - encompassing HPV,mild dysplasia,JACQUI I) HRHPV: negative EXAM: SCJ VISUALIZED IN ENTIRETY:Yes FINDINGS: ACW changes of anterior lip of cervix PROCEDURES PERFORMED: ECC: Yes BIOPSY: Yes LOCATION: 10 and 12 O'CLOCK SMOKER: yes Natural history of HPV as well as spectrum of pap smear results discussed with patient. All questions answered to her satisfaction. Plan dependent on results. Misty Gillespie MD documented in this encounter Plan of Treatment Upcoming Encounters Date Type Department Care Team (Late st Contact Info) Description 04/24/2024 10:45 AM EST Clinical Support [facility] [address] [place] [address] Scheduled Orders Name Type Priority Associated Diagnoses Orde r Schedule VT COLPOSC,CERVIX W/ADJ VAG,W/BX & CURRETAG VT Charge Routine LGSIL of cervix of undetermined significance Ordered: 10/21/2019 documented as of this encounter Goals Goal Patient Goal Type Associated Problems Recent Progress Patient-Stated? Author Maintain a healthy diet, exercise regularly and maintain an ideal body weight General No Thea Rubio MD Stay Tobacco Free Lifestyle No Thea Rubio MD documented as of this encounter Procedures Procedure Name Priority Date/Time Associated Diagnosis Comments PATHOLOGY TISSUE REQUEST Routine 10/21/2019 9:59 AM EDT LGSIL of cervix of undetermined significance documented in this encounter Results * PATHOLOGY TISSUE REQUEST (10/21/2019 9:59 AM EDT) CASE REPORT Surgical Pathology ?Case: [id number] ? Authorizing Provider: ??Misty Gillespie MD ? Collected: ? 10/21/2019 0959 ? Ordering Location: ? [facility] ?Received: ?10/21/2019 0959 ? Pathologist: ? Obdulia Hernandez MD ? Specimens: ?? A) - Cervix, Endocervical ? B) - Cervix ? 10/26/2019 9:34 AM EDT [facility] FINAL DIAGNOSIS A) Endocervix, curettage: - Mucus and inflammatory cells; insufficient for diagnosis. 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 10/26/2019 9:34 AM EDT [facility] S DESCRIPTION Part A) Received in formalin in a container labeled with the patient? s name, hospital number and ? endocervical? is a 0.3 x 0.2 x 0.1 cm aggregate of moore-white, minute soft tissue. The tissue is bagged and submitted entirely in A1. /EF Part B) Received in formalin in a container labeled with the patient? s name, hospital number and cervix is a 0.6 x 0.3 x 0.2 cm aggregate of moore-white soft tissue. Entirely submitted in B1. /EF 10/26/2019 9:34 AM EDT [facility] MICROSCOPIC DESCRIPTION Microscopic examination is performed and the findings corroborate the diagnosis. 10/26/2019 9:34 AM EDT [facility] EMBEDDED IMAGES 10/26/2019 9:34 AM EDT [facility] Tissue SPECIMEN FROM UTERINE CERVIX / Unknown 10/21/2019 9:59 AM EDT 10/21/2019 9:59 AM EDT Tissue specimen (specimen) SPECIMEN FROM UTERINE CERVIX / Unknown 10/21/2019 9:59 AM EDT 10/21/2019 9:59 AM EDT us Misty Gillespie MD PATHOLOGY ORDERABLES Final Result [facility] [address] [place] [address] documented in this encounter Visit Diagnoses Diagnosis LGSIL of cervix of undetermined significance- Primary Papanicolaou smear of cervix with low grade squamous intraepithelial lesion (LGSIL) documented in this encounter Historical Medications * This list may reflect changes made after this encounter. amLODIPine-atorva statatin (CADUET) 10-10 mg Oral Tablet Take 1 Tab by mouth daily. 12/06/2019 added in this encounter Additional Health Concerns Assessment Noted Time PHQ-9 Depression Total Score: 2 10/07/19 18 8:00 AM EDT PHQ-2 Depression Total Score: 2 10/07/19 18 8:00 AM EDT documented as of this encounter Care Teams Ophthalmic Nurse Relationship Specialty Start Date End Date Thea Rubio MD PCP - General Family Medicine 09/13/14 07/16/22 documented as of this encounter
--- OUTSIDE RECORDS SUMMARY | 2024-03-14 18:18 | XMS_ITS | Encounter Summary ---
Author Organization [place] [address] Care Team Providers Care Ticket Attendant Name Role Phone Thea Rubio MD Primary Care Provider +1- [phone] Reason for Visit * Reason Comments Contraception Encounter Details Date Type Department Care Team (Latest Contact Info) Description 06/24/2019 9:00 AM EST Clinical Support [facility] [address] [place] [address] Any Whitney RMA Surveillance for Depo-Provera contraception (Primary Dx) Social History Tobacco Use [...] Clinical Support [facility] [address] [place] [address] documented as of this encounter Goals Goal Patient Goal Type Associated Problems Recent Progress Patient-Stated? Author Maintain a healthy diet, exercise regularly and maintain an ideal body weight General No Thea Rubio MD Stay Tobacco Free Lifestyle No Thea Rubio MD documented as of this encounter Procedures Procedure Name Priority Date/Time Associated Diagnosis Comments POCT URINE Routine 06/24/2019 9:20 AM EST Surveillance for Depo-Provera contraception documented in this encounter Results * POCT URINE (06/24/2019 9:20 AM EST) Preg Test, Ur neg POS/NEG SEP OFFICE Lot Number SEP OFFICE Expiration Date SEP OFFICE SeriAl # SEP OFFICE Control Line Yes YES/NO SEP OFFICE 06/24/2019 9:20 AM EST us Thea Rubio MD POINT OF CARE TEST ORDERAB LES Final Result SEP OFFICE documented in this encounter Visit Diagnoses Diagnosis Surveillance for Depo-Provera contraception- Primary Surveillance of other previously prescribed contraceptive method documented in this encounter Administered Medications Inactive Administered Medications - up to 1 most recent administrations Medication Order MAR Action Action Date Dose Rate Site medroxyPROGESTERone (DEPO-PROVERA) injection 150 mg 150 mg, Intramuscular, ONCE, 1 dose, On Stephanie 06/24/19 at 0915, Dx: 1. Surveillance for Depo-Provera contraceptionIndications: Surveillance for Depo-Provera contraception Given 06/24/2019 9:20 AM EST 150 mg Left Upper Outer Quadrant documented in this encounter Additional Health Concerns Assessment Noted Time PHQ-9 Depression Total Score: 2 10/07/19 18 8:00 AM EDT PHQ-2 Depression Total Score: 2 10/07/19 18 8:00 AM EDT documented as of this encounter Care Teams Ticket Attendant Relationship Specialty Start Date End Date Thea Rubio MD PCP - General Family Medicine 09/13/14 07/16/22 documented as of this encounter
--- OUTSIDE RECORDS SUMMARY | 2024-03-14 18:18 | XMS_ITS | Encounter Summary ---
Author Organization [facility] [place] [address] Care Team Providers Care Pantograph Transferrer Name Role Phone Thea Rubio MD Primary Care Provider +1- [phone] Reason for Visit * Reason Comments Medication Refill Encounter Details Date Type Department Care Team (Late st Contact Info) Description 10/31/2019 Refill [facility] [place] [facility] [address] [place] [address] Migue Anne MD [address] [place] [address] Medication Refill Social History Tobacco Use Types [...] Refills Last Filled Start Date End Date potassium chloride SA (KLOR-CON) 10 mEq Oral Tab Sust.Rel. Particle/Crystal TAKE ONE TABLET BY MOUTH DAILY 30 Tab 5 11/01/2019 12/16/2019 documented in this encounter Plan of Treatment Upcoming Encounters Date Type Department Care Team (Late st Contact Info) Description 04/24/2024 10:45 AM EST Clinical Support [facility] [address] [place] [address] documented as of this encounter [...] Discontinue Reason Start Date End Da te potassium chloride SA (K-DUR;KLOR-CON) 10 mEq Oral Tab Sust.Rel. Particle/Crystal Take 1 Tab by mouth daily. 03/25/2019 11/01/2019 documented as of this encounter Additional Health Concerns Assessment Noted Time PHQ-9 Depression Total Score: 2 10/07/19 18 8:00 AM EDT PHQ-2 Depression Total Score: 2 10/07/19 18 8:00 AM EDT documented as of this encounter Care Teams Pantograph Transferrer Relationship Specialty Start Date End Date Thea Rubio MD PCP - General Family Medicine 09/13/14 07/16/22 documented as of this encounter
--- OUTSIDE RECORDS SUMMARY | 2024-03-14 18:18 | XMS_ITS | Encounter Summary ---
Author Organization [facility] [place] [address] Care Team Providers Care Rental Clerk Tool And Equipment Name Role Phone Thea Rubio MD Primary Care Provider +1- [phone] Encounter Details Date Type Department Care Team (Latest Contact Info) Description 12/03/2019 Travel Social History Tobacco Use Types Packs/Day [...] 04/24/2024 10:45 AM EST Clinical Support [facility] [address] [place] [address] documented as of this encounter [...] documented as of this encounter Care Teams Rental Clerk Tool And Equipment Relationship Specialty Start Date End Date Thea Rubio MD PCP - General Family Medicine 09/13/14 07/16/22 documented as of this encounter
--- OUTSIDE RECORDS SUMMARY | 2024-03-14 18:18 | XMS_ITS | Encounter Summary ---
Author Organization [place] [address] Care Team Providers Care Pattern Hand Name Role Phone Thea Rubio MD Primary Care Provider +1- [phone] Reason for Visit * Reason Comments Contraception Encounter Details Date Type Department Care Team (Latest Contact Info) Description 09/24/2019 11:10 AM EDT Clinical Support [facility] [address] [place] [address] Juana Trujillo RMA Surveillance of contraceptive injection (Primary Dx) Social History Tobacco Use Types [...] Description 04/24/2024 10:45 AM EST Clinical Support [facility] [address] [place] [address] documented as of this encounter Goals Goal Patient Goal Type Associated Problems Recent Progress Patient-Stated? Author Maintain a healthy diet, exercise regularly and maintain an ideal body weight General No Thea Rubio MD Stay Tobacco Free Lifestyle No Thea Rubio MD documented as of this encounter Procedures Procedure Name Priority Date/Time Associated Diagnosis Comments POCT URINE TELCOR Routine 09/24/2019 11:15 AM EDT Surveillance of contraceptive injection documented in this encounter Results * POCT URINE TELCOR (09/24/2019 11:15 AM EDT) Preg Test, Ur Negative 09/24/2019 11:21 AM EDT [facility] Urine URINE SPECIMEN COLLECTION / Unknown 09/24/2019 11:15 AM EDT 09/24/2019 11:21 AM EDT us Thea Rubio MD POINT OF CARE TEST ORDERAB LES Final Result [facility] [address] [place] [address] [address] documented in this encounter Visit Diagnoses Diagnosis Surveillance of contraceptive injection- Primary Surveillance of other previously prescribed contraceptive method documented in this encounter Administered Medications Inactive Administered Medications - up to 1 most recent administrations Medication Order MAR Action Action Date Dose Rate Site medroxyPROGESTERone (DEPO-PROVERA) injection 150 mg 150 mg, Intramuscular, ONCE, 1 dose, On Fri09/24/19 at 1130, Dx: 1. Surveillance of contraceptive injectionIndications:Surv eillance of contraceptive injection Given 09/24/2019 11:25 AM EDT 150 mg Left Upper Outer Quadrant documented in this encounter Additional Health Concerns Assessment Noted Time PHQ-9 Depression Total Score: 2 10/07/19 18 8:00 AM EDT PHQ-2 Depression Total Score: 2 10/07/19 18 8:00 AM EDT documented as of this encounter Care Teams Pattern Hand Relationship Specialty Start Date End Date Thea Rubio MD PCP - General Family Medicine 09/13/14 07/16/22 documented as of this encounter
--- OUTSIDE RECORDS SUMMARY | 2024-03-14 18:18 | XMS_ITS | Encounter Summary ---
Author Organization [facility] [place] [address] Care Team Providers Care Sanitary Napkin Machine Tender Name Role Phone Thea Rubio MD Primary Care Provider +1- [phone] Reason for Visit * Reason Onset Date Comments Cough 07/14/2019 Encounter Details Date Type Department Care Team (Late st Contact Info) Description 07/14/2019 Telephone [facility] [address] [place] [address] Thea Rubio MD [address] [place] [address] [id number] Cough Social History Tobacco Use Types Packs/Day Years [...] encounter Miscellaneous Notes * Telephone Encounter - Any Whitney RMA - 07/14/2019 1:44 PM EDT Notified via * Telephone Encounter - Thea Rubio MD - 07/14/2019 1:24 PM EDT So far, her symptoms sound like a usual cold and not the coronavirus. Continue using medications for symptoms only and let me know if she develops severe worsening cough or shortness of breath. Unfortunately, we do not have Coronavirus tests available in this local area. Recommend she stay off work for 1 more week and please write a note if she needs that. * Telephone Encounter - Mima Thompson - 07/14/2019 1:10 PM EDT What symptoms are you having? Pt Has Fatigue, upset Stomach,slight Productive Cough,runny nose How long have you had these symptoms? Pt Has Had Cough,runny Nose & Sneezing About 1 week, upset Stomach Started on Friday Do you now or have you had a fever? Pt Denies fever If you had a fever, how high did it get? Denies fever Do you now, or have you had shortness of breath, cough, (dry or productive), or congestion? Has Productive Cough , Have you taken anything for these symptoms, if so what? Pt Has taken Syrtec OTC Did anything help? The Zyrtec has helped Did symptoms return after medication, if so how soon? sxs Do Return After Doses Of Zyrtec Does anything make your symptoms worse? No Have you traveled in the last 60 days Has not Traveled Out of country If yes, where, how long did you stay, and when did you return Has Not traveled Have you been in contact with anyone with confirmed or suspected coronavirus, if so who ? Pt Says She Works in a [employer] house , Around a lot of people,and They Have Reported Off Work Sick but have NotBeen Tested. documented in this encounter Plan of Treatment Upcoming Encounters Date Type Department Care Team (Late st Contact Info) Description 04/24/2024 10:45 AM EST Clinical Support [facility] [address] [place] [address] documented as of this encounter Goals Goal [...] documented as of this encounter Care Teams Sanitary Napkin Machine Tender Relationship Specialty Start Date End Date Thea Rubio MD PCP - General Family Medicine 09/13/14 07/16/22 documented as of this encounter
--- OUTSIDE RECORDS SUMMARY | 2024-03-14 18:18 | XMS_ITS | Encounter Summary ---
Author Organization [facility] [place] [address] Care Team Providers Care Bacteriologist Dairy Name Role Phone Thea Rubio MD Primary Care Provider +1- [phone] Encounter Details Date Type Department Care Team (Latest Contact Info) Description 10/07/2019 Travel Social History Tobacco Use Types Packs/Day [...] 04/24/2024 10:45 AM EST Clinical Support [facility] [address] [place] [address] documented as of this encounter [...] documented as of this encounter Care Teams Bacteriologist Dairy Relationship Specialty Start Date End Date Thea Rubio MD PCP - General Family Medicine 09/13/14 07/16/22 documented as of this encounter
--- OUTSIDE RECORDS SUMMARY | 2024-03-14 18:19 | XMS_ITS | Encounter Summary ---
Author Organization [place] [address] Care Team Providers Care Systems Engineer Name Role Phone Thea Rubio MD Primary Care Provider +1- [phone] Reason for Visit * Reason Comments Injections control shot d epo provera Encounter Details Date Type Department Care Team (Latest Contact Info) Description 08/21/2018 1:30 PM EDT Clinical Support [facility] [address] [place] [address] Breezy Rubio MA control (Primary Dx) Social History Tobacco Use Types Packs/Day Years Used Date Smoking Tobacco: Former Cigarettes 0.5 0.2 1 - 04/21/1994 Smokeless Tobacco: Never Alcohol Use Standard Drinks/Week Comments No 0 (1 standard drink = 0.6 oz pur e alcohol) Sexually Active Control Partners Comments Yes Male [...] 04/24/2024 10:45 AM EST Clinical Support [facility] [address] [place] [address] documented as of this encounter Goals Goal Patient Goal Type Associated Problems Recent Progress Patient-Stated? Author Maintain a healthy diet, exercise regularly and maintain an ideal body weight General No Thea Rubio MD Stay Tobacco Free Lifestyle No Thea Rubio MD documented as of this encounter Procedures Procedure Name Priority Date/Time Associated Diagnosis Comments POCT URINE Routine 08/21/2018 1:38 PM EDT control documented in this encounter Results * POCT URINE (08/21/2018 1:38 PM EDT) Preg Test, Ur negative POS/NEG SEP OFFICE Lot Number [id number] SEP OFFICE Expiration Date ,020 SEP OFFICE SeriAl # SEP OFFICE Control Line YES/NO SEP OFFICE 08/21/2018 1:38 PM EDT us Thea Rubio MD POINT OF CARE TEST ORDERAB LES Final Result SEP OFFICE documented in this encounter Visit Diagnoses Diagnosis control- Primary Unspecified contraceptive management documented in this encounter Administered Medications Inactive Administered Medications - up to 1 most recent administrations Medication Order MAR Action Action Date Dose Rate Site medroxyPROGESTERone (DEPO-PROVERA) injection 150 mg 150 mg, Intramuscular, ONCE, 1 dose, On Fri08/21/18 at 1345, Dx: 1. controlIndications:Dar h control Given 08/21/2018 1:44 PM EDT 150 mg Right Upper Outer Quadrant documented in this encounter Additional Health Concerns Assessment Noted Time PHQ-9 Depression Total Score: 2 10/07/19 18 8:00 AM EDT PHQ-2 Depression Total Score: 2 10/07/19 18 8:00 AM EDT documented as of this encounter Care Teams Systems Engineer Relationship Specialty Start Date End Date Thea Rubio MD PCP - General Family Medicine 09/13/14 07/16/22 documented as of this encounter
--- OUTSIDE RECORDS SUMMARY | 2024-03-14 18:19 | XMS_ITS | Encounter Summary ---
Author Organization [facility] [place] [address] Care Team Providers [facility] Consultant Name Role Phone Thea Rubio MD Primary Care Provider [phone] Reason for Visit * Reason Comments Rash pt has a itchy bumps on her back x 1 day Encounter Details Date Type Department Care Team (Late st Contact Info) Description 08/19/2018 3:45 PM EDT Office Visit [facility] [place] Wilmaradha Trujillo [address] [place] [address] Dallin Chou PA-C [address] [place] [address] Hives (Primary Dx) Social History Tobacco Use Types [...] Sign Reading Time Taken Comments Blood Pressure 120/70 08/19/2018 3:50 PM EDT Pulse 100 08/19/2018 3:50 PM EDT Temperature 36.8 ??C (98.3 ??F) 08/19/2018 3:50 PM ED T Respiratory Rate - - Oxygen Saturation 99% 08/19/2018 3:50 PM EDT Inhaled Oxygen Concentration - - Weight 69.3 kg (152 lb 12.8 oz) 08/19/2018 3:50 PM EDT Height 165.1 cm (5' 5 ) 08/19/2018 3:50 PM EDT Body Mass Index 25.43 08/19/2018 3:50 PM EDT documented in this encounter Progress Notes * Dallin Chou PA-C - 08/19/2018 3:45 PM EDT Chief Complaint Patient presents with ??? Rash pt has a itchy bumps on her back x 1 day HPI: Here for hives Awoke this AM with itchy back Saw in the mirror, large red whelps/hives Brought in a cell ph pic Shows about 12 red raised patches approx 2 cm diameter Scattered randomly across back No dyspnea, dysphagia, wheeze, or speech difficulty Took a benadryl All resolved now This is the third recurrence in about 3-4 months No known contact Has hx of latex allergy Past Medical History: Diagnosis Date ??? Bile [...] ??? COLONOSCOPY 01/12/2018 Dr. Aaron Rocha, with [facility]. Normal colon ??? UPPER GASTROINTESTINAL ENDOSCOPY 12/04/2017 at , Dr. Aaron Rocha See time date stamps in the EMR for other pertient history components reviewed as part of today's encounter. Review of Systems Constitutional: Negative for appetite change, chills, fatigue and fever. HENT: Negative for congestion and trouble swallowing. Eyes: Negative for redness. Respiratory: Negative for cough, shortness of breath and wheezing. Cardiovascular: Negative for palpitations. Gastrointestinal: Negative for abdominal pain and nausea. Musculoskeletal: Negative for arthralgias and myalgias. Skin: Positive for rash. Neurological: Negative for light-headedness and headaches. Psychiatric/Behavioral: The patient is not nervous/anxious. Vitals: 08/19/18 1550 BP: 120/70 BP Location: Left arm Patient Position: Sitting Pulse: 100 Temp: 98.3 ??F (36.8 ??C) TempSrc: Oral SpO2: 99% Weight: 152 lb 12.8 oz (69.3 kg) Height: 5' 5 (1.651 m) Physical Exam Constitutional: She is oriented to person, place, and time. She appears well- developed and well-nourished. No distress. HENT: Mouth/Throat: Oropharynx is clear and moist. Eyes: Conjunctivae are normal. Neck: Normal range of motion. Neck supple. Cardiovascular: Normal rate, regular rhythm and normal heart sounds. Pulmonary/Chest: Effort normal and breath sounds normal. Musculoskeletal: Normal range of motion. Neurological: She is alert and oriented to person, place, and time. Skin: Skin is warm and dry. No rash noted. Psychiatric: She has a normal mood and affect. Her behavior is normal. Thought content normal. Vitals reviewed. 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 [facility] Documentation PCM Flowsheet was completed/reviewed as part of today's visit. Educated patient regarding the diagnosis, medication/treatment, goals, self- management tools and instructions based on their care plan. They verbalized understanding of the education given on the After Visit Summary [AVS] for today's visit. A copy of the AVS was provided either in writing and/or via TEAM [employer]. A new medicine was not prescribed on this visit. documented in this encounter Miscellaneous Notes * Patient Instructions - Dallin Chou PA-C - 08/19/2018 5:36 PM EDT Images from the original note were not included. Patient Education Hives Hives (urticaria) are itchy, red, swollen areas on your skin. Hives can appear on any part of your body and can vary in size. They can be as small as the tip of a pen or much larger. Hives often fadewithin 24 hours (acute hives). In other cases, new hives appear after old ones fade. This cycle cancontinue for several days or weeks (chronic hives). Hives result from your body's reaction to an irritant or to something that you are allergic to (trigger). When you are exposed to a trigger, your body releases a chemical (histamine) that causes redness, itching, and swelling. You can get hives immediately after being exposed to a trigger or hours later. Hives do not spread from person to person (are not contagious). Your hives may get worse with scratching, exercise, and emotional stress. What are the causes? Causes of this condition include: ?? Allergies to certain foods or ingredients. ?? Insect bites or stings. ?? Exposure to pollen or pet dander. ?? Contact with latex or chemicals. ?? Spending time in sunlight, heat, or cold (exposure). ?? Exercise. ?? Stress. You can also get hives from some medical conditions and treatments. These include: ?? Viruses, including the common cold. ?? Bacterial infections, such as urinary tract infections and strep throat. ?? Disorders such as vasculitis, lupus, or thyroid disease. ?? Certain medications. ?? Allergy shots. ?? Blood transfusions. Sometimes, the cause of hives is not known (idiopathic hives). What increases the risk? This condition is more likely to develop in: ?? Women. ?? People who have food allergies, especially to citrus fruits, milk, eggs, peanuts, tree nuts, or shellfish. ?? People who are allergic to: ? Medicines. ? Latex. ? Insects. ? Animals. ? Pollen. ?? People who have certain medical conditions, including??lupus or thyroid disease. What are the signs or symptoms? The main symptom of this condition is raised, itchy??red or white bumps or patches on your skin. These areas may: ?? Become large and swollen (welts). ?? Change in shape and location, quickly and repeatedly. ?? Be separate hives or connect over a large area of skin. ?? Sting or become painful. ?? Turn white when pressed in the center (naveed). In severe cases, your??hands, feet, and face may also become swollen. This may occur if hives develop deeper in your skin. How is this diagnosed? This condition is diagnosed based on your symptoms, medical history, and physical exam. Your skin, urine, or blood may be tested to find out what is causing your hives and to rule out other health issues. Your health care provider may also remove a small sample of skin from the affected area and exa mine it under a microscope (biopsy). How is this treated? Treatment depends on the severity of your condition. Your health care provider may recommend using cool, wet cloths (cool compresses) or taking cool showers to relieve itching. Hives are sometimes treated with medicines, including: ?? Antihistamines. ?? Corticosteroids. ?? Antibiotics. ?? An injectable medicine (omalizumab). Your health care provider may prescribe this if you have chronic idiopathic hives and you continue to have symptoms even after treatment with antihistamines. Severe cases may require an emergency injection of adrenaline (epinephrine) to prevent a life-threatening allergic reaction (anaphylaxis). Follow these instructions at home: Medicines ?? Take or apply [id number] and prescription medicines only as told by your health care provider. ?? If you were prescribed an antibiotic medicine, use it as told by your health care provider. Do not stop taking the antibiotic even if you start to feel better. Skin Care ?? Apply cool compresses to the affected areas. ?? Do not scratch or rub your skin. General instructions ?? Do not take hot showers or baths. This can make itching worse. ?? Do not wear tight-fitting clothing. ?? Use sunscreen and wear protective clothing when you are outside. ?? Avoid any substances that cause your hives. Keep a journal to help you track what causes your hives. Write down: ? What medicines you take. ? What you eat and drink. ? What products you use on your skin. ?? Keep all follow-up visits as told by your health care provider. This is important. Contact a health care provider if: ?? Your symptoms are not controlled with medicine. ?? Your joints are painful or swollen. Get help right away if: ?? You have a fever. ?? You have pain in your abdomen. ?? Your tongue or lips are swollen. ?? Your eyelids are swollen. ?? Your chest or throat feels tight. ?? You have trouble breathing or swallowing. These symptoms may represent a serious problem that is an emergency. Do not wait to see if the symptoms will go away. Get medical help right away. Call your local emergency services (911 in the [place] Do not drive yourself to the hospital. This information is not intended to replace advice given to you by your health care provider. Make sure you discuss any questions you have with your health care provider. Document Released: 04/07/2006 Document Revised: 09/04/2016 Document Reviewed: 01/24/2016 [employer] Interactive Patient Education ?? 2019 [employer]. documented in this encounter Plan of Treatment Upcoming Encounters Date Type Department Care Team (Late st Contact Info) Description 04/24/2024 10:45 AM EST Clinical Support [facility] [address] [place] [address] documented as of this encounter Goals Goal Patient Goal Type Associated Problems Recent Progress Patient-Stated? Author Maintain a healthy diet, exercise regularly and maintain an ideal body weight General No Thea Rubio MD Stay Tobacco Free Lifestyle No Thea Rubio MD documented as of this encounter Visit Diagnoses Diagnosis Hives- Primary Urticaria, unspecified documented in this encounter Additional Health Concerns Assessment Noted Time PHQ-9 Depression Total Score: 2 10/07/19 18 8:00 AM EDT PHQ-2 Depression Total Score: 2 10/07/19 18 8:00 AM EDT documented as of this encounter Care Teams Alliance Consultant Relationship Specialty Start Date End Date Thea Rubio MD PCP - General Family Medicine 09/13/14 07/16/22 documented as of this encounter
--- OUTSIDE RECORDS SUMMARY | 2024-03-14 18:19 | XMS_ITS | Encounter Summary ---
Author Organization [place] [address] Care Team Providers Care Lead Project Engineer Name Role Phone Thea Rubio MD Primary Care Provider [phone] Reason for Visit * Reason Comments Gynecologic Exam Encounter Details Date Type Department Care Team (Latest Contact Info) Description 10/09/2018 10:30 AM EDT Office Visit [facility] [address] [place] [address] Thea Rubio MD [address] [place] [address] [phone] Well adult exam (Primary Dx); Well woman exam with routine gynecological exam; Allergic contact dermatitis due to plants, except food; Breast discharge; Cyanocobalamin deficiency Social History Tobacco Use Types Packs/Day Years [...] Reading Time Taken Comments Blood Pressure 112/70 10/09/2018 10:32 AM EDT Pulse 72 10/09/2018 10:32 AM EDT Temperature 36.5 ??C (97.7 ??F) 10/09/2018 10:32 AM E DT Respiratory Rate - - Oxygen Saturation 98% 10/09/2018 10:32 AM EDT Inhaled Oxygen Concentration - - Weight 69 kg (152 lb 3.2 oz) 10/09/2018 10:32 AM EDT Height 165.1 cm (5' 5 ) 10/09/2018 10:32 AM EDT Body Mass Index 25.33 10/09/2018 10:32 AM EDT documented in this encounter Ordered Prescriptions Prescription Sig Dispense Quantity Refills Last Filled Start Date End Date predniSONE (DELTASONE) 10 mg Oral TabletIndications:A llergic contact dermatitis due to plants, except food 3 stat, then 3 in AM for 2 days, then 2/AM for 3 days, then 1/AM for 3 days. 18 Tab 10/09/2018 03/25/2019 documented in this encounter Progress Notes * Thea Rubio MD - 10/09/2018 10:30 AM EDT Subjective Ms. Childress is a 38 y.o. female here for an annual wellness physical exam. Hx of abnl pap in past. Has no menses since on Depo Provera. Is aware of decreased bone density on depo shot. Has had 2 shots so far. Was working in yard 5 and 6 days ago. Got rash, itching on arms, and mid abd since 6 days ago. Using Aristocort cream without help. Just noted d/c from both breasts yest, minimally sl clear with brown tint and some areas with actual white milky d/c. Patient Active Problem List Diagnosis ??? Congenital biliary atresia ??? Migraine without aura ??? Celiac artery stenosis (HCC) ??? Other chest pain ??? ASCUS of cervix with negative high risk HPV ??? ASD (atrial septal defect) ??? Cyanocobalamin deficiency ??? Allergic rhinitis ??? Back pain ??? Celiac artery compression syndrome (HCC) ??? Overactive child ??? Anaclitic depression ??? Thyroid mass Past Medical History: Diagnosis Date ??? Bile [...] ??? COLONOSCOPY 01/12/2018 Dr. Aaron Rocha, with [facility]. Normal colon ??? UPPER GASTROINTESTINAL ENDOSCOPY 12/04/2017 at , Dr. Aaron Rocha Allergies Allergen Reactions ??? Latex Rash ??? Latex, Natural Rubber Rash ??? Morphine Nausea And Vomiting ??? Metronidazole Rash Current Outpatient Medications on File Prior to Visit Medication Sig Dispense Refill ??? amLODIPine (NORVASC) 2.5 mg Oral Tablet Take 1 Tab by mouth daily. 30 Tab 1 ??? aspirin 81 mg [...] Take 1 Tab by mouth daily. ??? ketorolac (TORADOL) 10 mg Oral Tablet Take 10 mg by mouth every 6 hours as needed for Pain. ??? medroxyprogesterone acetate (DEPO-PROVERA IM) Inject into the muscle. Every three months ??? ranitidine HCl (ZANTAC ORAL) Take 1 Tab by mouth daily. ??? triamcinolone (ARISTOCORT) 0.5 % Top Cream Apply topically 3 times daily for 10 days. Prn itchyrash on arms 30 g 0 No current facility-administered medications on file prior to visit. Social History Socioeconomic History ??? Marital status: Spouse name: None ??? Number of children: None ??? Years of education: None ??? Highest education level: None Occupational History ??? None Social Needs ??? Financial resource strain: None ??? Food insecurity: Worry: None Inability: None ??? Transportation needs: Medical: None Non-medical: None Tobacco Use ??? Smoking status: Former Smoker Packs/day: 0.50 Years: 0.20 Pack years: 0.10 Last attempt to quit: 04/21/1994 Years since quittin.4 ??? Smokeless tobacco: Never Used Substance and Sexual Activity ??? Alcohol use: No Alcohol/week: 0.0 oz ??? Drug use: No ??? Sexual activity: Yes Partners: Male Lifestyle ??? Physical activity: Days per week: None Minutes per session: None ??? Stress: None Relationships ??? Social connections: Talks on phone: None Gets together: None Attends orthodox service: None Active member of club or organization: None Attends meetings of clubs or organizations: None Relationship status: None ??? Intimate partner violence: Fear of current or ex partner: None Emotionally abused: None Physically abused: None Forced sexual activity: None Other Topics Concern ??? None Social History Narrative ??? None Family History Problem Relation Age of Onset ??? Cancer Sister 32 ovarian and uterine ??? Diabetes Mother ??? Heart Disease Mother stentsx7 ??? High Blood Pressure Mother ??? Heart Attack Mother 35 ??? Cancer Paternal Aunt uterine ??? Cancer Paternal Uncle ? type ??? Cancer Maternal Grandmother breast ??? Diabetes Maternal Grandfather ??? Heart Disease Maternal Grandfather ??? Stroke Paternal Grandmother ??? Other Father Leigha huddleston, (sp ?), causes head aneurysms. Immunization History Administered Date(s) Administered ??? Tdap 09/26/2015 Health Maintenance Topic Date Due ??? Annual Wellness Exam 10/10/2019 ??? Cervical Cancer Screening 10/06/2020 ??? Influenza Vaccine Completed ??? Pneumococcal Vaccine 0-64 Aged Out There are no preventive care reminders to display for this patient. Patient Care Team: Thea Rubio MD as PCP - General (Family Medicine) Review of Systems Skin: Positive for rash. All other systems reviewed and are negative. Objective BP 112/70 (BP Location: Right arm, Patient Position: Sitting) Pulse 72 Temp 97.7 ??F (36.5 ??C)(Temporal) Ht 5' 5 (1.651 m) Wt 152 lb 3.2 oz (69 kg) SpO2 98% BMI 25.33 kg/m?? Physical Exam Constitutional: She is oriented to person, place, and time. She appears well- developed and well-nourished. HENT: Head: Normocephalic and atraumatic. Right Ear: External ear normal. Left Ear: External ear normal. Nose: Nose normal. Mouth/Throat: Oropharynx is clear and moist. Eyes: Pupils are equal, round, and reactive to light. Conjunctivae are normal. Neck: Normal range of motion. Neck supple. No tracheal deviation present. No thyromegaly present. Cardiovascular: Normal rate, regular rhythm and normal heart sounds. Pulmonary/Chest: Effort normal and breath sounds normal. Right breast exhibits nipple discharge. Right breast exhibits no inverted nipple, no mass, no skin change and no tenderness. Left breast exhibits nipple discharge. Left breast exhibits no inverted nipple, no mass, no skin change and no tenderness. No breast swelling, tenderness or bleeding. Breasts are symmetrical. Nipple discharges bilateral and multiple ducts. Abdominal: Soft. She exhibits no mass. There is no tenderness. Genitourinary: Vagina normal and uterus normal. No breast discharge. Pelvic exam was performed withpatient supine. Genitourinary Comments: No breast masses. Pap done with broom. Bimanual normal. Lymphadenopathy: She has no cervical adenopathy. Neurological: She is alert and oriented to person, place, and time. Skin: Skin is warm and dry. Psychiatric: She has a normal mood and affect. Her behavior is normal. Judgment and thought contentnormal. Vitals reviewed. bilateral breasts with expressible d/c. Discharge varies from milky from some ducts to clear with abrownish tinge from other ducts Very excoriated papular rash on mid abd and forearms. Lab Results Component Value Date WBC 6.0 05/19/2018 HGB 12.6 05/19/2018 HCT 38.4 05/19/2018 PLT 461 (H) 05/19/2018 CHOLESTEROL 154 05/14/2017 TRIG 67 05/14/2017 HDL 68 05/14/2017 LDLCALC 73 05/14/2017 ALT 11 04/14/2018 AST 15 04/14/2018 NA 140 05/19/2018 K 3.9 05/19/2018 CL 104 05/19/2018 CREATININE 0.76 05/19/2018 BUN 9 05/19/2018 CO2 26 05/19/2018 INR 1.06 07/04/2017 GLU 85 05/19/2018 TSHREFLEX 2.240 05/14/2017 Diagnoses and all orders for this visit: Well adult exam-stable - CBC WITH DIFF; Future - COMPREHENSIVE METABOLIC PANEL; Future - LIPID SCREEN; Future - TSH REFLEX; Future Well woman exam with routine gynecological exam-Pap done, exam normal. - [facility] LEAF CONDITIONER CYTOLOGY ORDER; Future - LEAF CONDITIONER CYTOLOGY REQUEST (PAP ONLY) - HPV HIGH RISK Allergic contact dermatitis due to plants, except food-suspect poison jeff - predniSONE (DELTASONE) 10 mg Oral Tablet; 3 stat, then 3 in AM for 2 days, then 2/AM for 3 days, then 1/AM for 3 days. Dispense: 18 Tab; Refill: 0 Breast discharge-uncertain etiology but bilateral issue and multiple ducts implies some systemic issue or medication. - PROLACTIN LEVEL; Future Cyanocobalamin deficiency Overview: Near low side of normal November 2017 Orders: - VITAMIN B12 LEVEL; Future if can, get fasting BW before begins steroids orally [facility] Documentation Medication Compliance: Compliant all the time Understanding of Current Medications: Good Medication Compliance Barriers: None or N/A Self-Management Tools: Home weight monitoring Self-Management Ability: Good Willingness to Adopt Healthy Behaviors: Good Potential Barriers to completing treatment plans today: No significant barriers [facility] Flowsheet was completed/reviewed as part of today's visit. Educated patient regarding the diagnosis, medication/treatment, goals, self- management tools and instructions based on their care plan. They verbalized understanding of the education given on the After Visit Summary [AVS] for today's visit. A copy of the AVS was provided either in writing and/or via [employer]. A new medicine was prescribed during this [...] Patient Instructions - Thea Rubio MD - 10/09/2018 10:30 AM EDT Images from the original note were not included. Patient Education Contact Dermatitis Dermatitis is redness, soreness, and swelling (inflammation) of the skin. Contact dermatitis is a reaction to certain substances that touch the skin. There are two types of contact dermatitis: ?? Irritant contact dermatitis. This type is caused by something that irritates your skin, such as dry hands from washing them too much. This type does not require previous exposure to the substance for a reaction to occur. This type is more common. ?? Allergic contact dermatitis. This type is caused by a substance that you are allergic to, such as a nickel allergy or poison jeff. This type only occurs if you have been exposed to the substance (allergen) before. Upon a repeat exposure, your body reacts to the substance. This type is less common. What are the causes? Many different substances can cause contact dermatitis. Irritant contact dermatitis is most commonly caused by exposure to: ?? Makeup. ?? Soaps. ?? Detergents. ?? Bleaches. ?? Acids. ?? Metal salts, such as nickel. Allergic contact dermatitis is most commonly caused by exposure to: ?? Poisonous plants. ?? Chemicals. ?? Jewelry. ?? Latex. ?? Medicines. ?? Preservatives in products, such as clothing. What increases the risk? This condition is more likely to develop in: ?? People who have jobs that expose them to irritants or allergens. ?? People who have certain medical conditions, such as asthma or eczema. What are the signs or symptoms? Symptoms of this condition may occur anywhere on your body where the irritant has touched you or istouched by you. Symptoms include: ?? Dryness or flaking. ?? Redness. ?? Cracks. ?? Itching. ?? Pain or a burning feeling. ?? Blisters. ?? Drainage of small amounts of blood or clear fluid from skin cracks. With allergic contact dermatitis, there may also be swelling in areas such as the eyelids, mouth, or genitals. How is this diagnosed? This condition is diagnosed with a medical history and physical exam. A patch skin test may be performed to help determine the cause. If the condition is related to your job, you may need to see an occupational health physiotherapist. How is this treated? Treatment for this condition includes figuring out what caused the reaction and protecting your skin from further contact. Treatment may also include: ?? Steroid creams or ointments. Oral steroid medicines may be needed in more severe cases. ?? Antibiotics or antibacterial ointments, if a skin infection is present. ?? Antihistamine lotion or an antihistamine taken by mouth to ease itching. ?? A bandage (dressing). Follow these instructions at home: Skin Care ?? Moisturize your skin as needed. ?? Apply cool compresses to the affected areas. ?? Try taking a bath with: ? Epsom salts. Follow the instructions on the packaging. You can get these at your local pharmacy or grocery store. ? Baking soda. Pour a small amount into the bath as directed by your health care provider. ? Colloidal oatmeal. Follow the instructions on the packaging. You can get this at your local pharmacy or grocery store. ?? Try applying baking soda paste to your skin. Stir water into baking soda until it reaches a paste-like consistency. ?? Do not scratch your skin. ?? Bathe less frequently, such as every other day. ?? Bathe in lukewarm water. Avoid using hot water. Medicines ?? Take or apply suru-[id number]-[id number] and prescription medicines only as told by your health care provider. ?? If you were prescribed an antibiotic medicine, take or apply your antibiotic as told by your health care provider. Do not stop using the antibiotic even if your condition starts to improve. General instructions ?? Keep all follow-up visits as told by your health care provider. This is important. ?? Avoid the substance that caused your reaction. If you do not know what caused it, keep a journalto try to track what caused it. Write down: ? What you eat. ? What cosmetic products you use. ? What you drink. ? What you wear in the affected area. This includes jewelry. ?? If you were given a dressing, take care of it as told by your health care provider. This includes when to change and remove it. Contact a health care provider if: ?? Your condition does not improve with treatment. ?? Your condition gets worse. ?? You have signs of infection such as swelling, tenderness, redness, soreness, or warmth in the affected area. ?? You have a fever. ?? You have new symptoms. Get help right away if: ?? You have a severe headache, neck pain, or neck stiffness. ?? You vomit. ?? You feel very sleepy. ?? You notice red streaks coming from the affected area. ?? Your bone or joint underneath the affected area becomes painful after the skin has healed. ?? The affected area turns darker. ?? You have difficulty breathing. This information is not intended to replace advice given to you by your health care provider. Make sure you discuss any questions you have with your health care provider. Document Released: 04/04/2001 Document Revised: 11/19/2017 Document Reviewed: 08/23/2015 [employer] Interactive Patient Education ?? 2019 [employer]. documented in this encounter Plan of Treatment Upcoming Encounters Date Type Department Care Team (Late st Contact Info) Description 04/24/2024 10:45 AM EST Clinical Support [address] [address] Scheduled Orders Name Type Priority Associated Diagnoses Orde r Schedule LIPID SCREEN Lab Routine Well adult exam 1 Occurrences starting 10/09/2018 until 10/09/2019 documented as of this encounter Goals Goal Patient Goal Type Associated Problems Recent Progress Patient-Stated? Author Maintain a healthy diet, exercise regularly and maintain an ideal body weight General No Thea Rubio MD Stay Tobacco Free Lifestyle No Thea Rubio MD documented as of this encounter Procedures Procedure Name Priority Date/Time Associated Diagnosis Comments LEAF CONDITIONER CYTOLOGY REQUEST (PAP ONLY) Routine 10/09/2018 11:58 AM EDT Well woman exam with routine gynecological exam [facility] LEAF CONDITIONER CYTOLOGY ORDER Routine 10/09/2018 11:58 AM EDT Well woman exam with routine gynecological exam HPV HIGH RISK Routine 10/09/2018 11:58 AM EDT Well woman exam with routine gynecological exam documented in this encounter Results * PROLACTIN LEVEL (10/09/2018 12:29 PM EDT) Prolactin 7.97 4.79 - 23.30 ng/mL 10/09/2018 7:18 PM EDT [facility] [employer] [facility] Blood VENOUS BLOOD / Unknown Venipuncture / Unknown 10/09/2018 12:29 PM EDT 10/09/2018 12:29 PM EDT Narrative [facility] [employer] [facility] - 10/09/2018 7:18 PM EDT Ingestion of abimael doses of biotin (>5 mg/day) taken within 8 hours of drawing blood sample can interfere with this immunoassay test. us Thea Rubio MD CHEMISTRY ORDERABLES Final Result Performing Organization Address [facility] Co de Phone Number [facility] [employer] , [place] [address] * VITAMIN B12 LEVEL (10/09/2018 12:29 PM EDT) Vitamin B12 383 211 - 946 pg/mL 10/09/2018 7:26 PM EDT [facility] [employer] [facility] Blood Venipuncture / Unknown 10/09/2018 12:29 PM EDT 10/09/2018 12:29 PM EDT Narrative [facility] [employer] [facility] - 10/09/2018 7:26 PM EDT Ingestion of abimael doses of biotin (>5 mg/day) taken within 8 hours of drawing blood sample can interfere with this immunoassay test. us Thea Rubio MD CHEMISTRY ORDERABLES Final Result Performing Organization Address [facility] de Phone Number [facility] [employer] , [place] [address] * TSH REFLEX (10/09/2018 12:29 PM EDT) TSH Reflex 2.250 0.270 - 4.200 mcIU/mL 10/09/2018 7:18 PM EDT [facility] [employer] [facility] Blood Venipuncture / Unknown 10/09/2018 12:29 PM EDT 10/09/2018 12:29 PM EDT Narrative [facility] [employer] [facility] - 10/09/2018 7:18 PM EDT Ingestion of abimael doses of biotin (>5 mg/day) taken within 8 hours of drawing blood sample can interfere with this immunoassay test. us Thea Rubio MD CHEMISTRY ORDERABLES Final Result [facility] [address] [facility] , [address] [place] [id number] * COMPREHENSIVE METABOLIC PANEL (10/09/2018 12:29 PM EDT) Sodium 139 136 - 145 mmol/L 10/09/2018 7:18 PM EDT [facility] Potassium 3.5 3.5 - 5.0 mmol/L 10/09/2018 7:18 PM EDT [facility] Chloride 105 98 - 107 mmol/L 10/09/2018 7:18 PM EDT [facility] Total CO2 23 22 - 29 mmol/L 10/09/2018 7:18 PM EDT [facility] Anion Gap 11 7 - 16 mmol/L 10/09/2018 7:18 PM EDT [facility] Calcium 9.1 8.6 - 10.4 mg/dL 10/09/2018 7:18 PM EDT [facility] Glucose Lvl 89 74 - 100 mg/dL 10/09/2018 7:18 PM EDT [facility] BUN 6 6 - 20 mg/dL 10/09/2018 7:18 PM EDT [facility] Creatinine 0.75 0.51 - 1.30 mg/dL 10/09/2018 7:18 PM EDT [facility] Albumin 4.1 3.5 - 5.2 gm/dL 10/09/2018 7:18 PM EDT [facility] Total Protein 7.2 6.4 - 8.3 gm/dL 10/09/2018 7:18 PM EDT [facility] Bili Total 0.4 0.1 - 1.3 mg/dL 10/09/2018 7:18 PM EDT [facility] ALT 6 <=41 IU/L 10/09/2018 7:18 PM EDT [facility] AST 13 <=40 IU/L 10/09/2018 7:18 PM EDT [facility] Alk Phos 88 36 - 123 IU/L 10/09/2018 7:18 PM EDT [facility] [employer] GFR Afr Am 119 >=60 mL/min/1.7 3 m2 10/09/2018 7:18 PM EDT [facility] GFR Non Afr Am 103 >=60 mL/min/1.7 3 m2 10/09/2018 7:18 PM EDT [facility] Comment: This estimated GFR was calculated [...] in nutritional status or muscle mass. Blood Venipuncture / Unknown 10/09/2018 12:29 PM EDT 10/09/2018 12:29 PM EDT us Thea Rubio MD CHEMISTRY ORDERABLES Final Result [facility] [employer], [facility] [address] [facility], [place] [address] [facility] [address] [place], [place] [id number] * CBC WITH DIFF (10/09/2018 12:29 PM EDT) WBC 6.9 3.7 - 10.3 x10(3)/mcL 10/09/2018 6:56 PM EDT [facility] RBC 4.51 3.90 - 5.20 x10(6)/mcL 10/09/2018 6:56 PM EDT [facility] Hgb 12.9 11.2 - 15.7 g/dL 10/09/2018 6:56 PM EDT [facility] Hct 39.6 34.0 - 45.0 % 10/09/2018 6:56 PM EDT [facility] MCV 87.8 80.0 - 100.0 fL 10/09/2018 6:56 PM EDT [facility] MCH 28.6 26.0 - 34.0 pg 10/09/2018 6:56 PM EDT [facility] MCHC 32.6 30.7 - 35.5 g/dL 10/09/2018 6:56 PM EDT [facility] RDW 13.3 <=14.9 % 10/09/2018 6:56 PM EDT [facility] Platelet 324 155 - 369 x10(3)/mcL 10/09/2018 6:56 PM EDT [facility] MPV 10.1 8.8 - 12.5 fL 10/09/2018 6:56 PM EDT [facility] Neut Percent 64.4 % 10/09/2018 6:56 PM EDT [facility] Comment:Neutrophils equals s egs plus bands Imm Gran% 0.3 % 10/09/2018 6:56 PM EDT [facility] Comment:Automated count of m etamyelocytes, myelocytes and promyelocytes. Lymph Percent 21.3 % 10/09/2018 6:56 PM EDT [facility] [place] Percent 7.6 % 10/09/2018 6:56 PM EDT [facility] Eos Percent 5.8 % 10/09/2018 6:56 PM EDT [facility] Baso Percent 0.6 % 10/09/2018 6:56 PM EDT [facility] Neut # 4.5 1.6 - 6.1 x10(3)/mcL 10/09/2018 6:56 PM EDT [facility] Comment:Neutrophils equals s egs plus bands IMMGRAN# 0.0 0.0 - 0.1 x10(3)/mcL 10/09/2018 6:56 PM EDT [facility] Comment:Automated count of m etamyelocytes, myelocytes and promyelocytes. An absolute IG <0.1 is reported as 0.0. Lymph # 1.5 1.2 - 3.9 x10(3)/mcL 10/09/2018 6:56 PM EDT [facility] [place] # 0.5 0.3 - 0.9 x10(3)/mcL 10/09/2018 6:56 PM EDT [facility] Eos# 0.4 0.0 - 0.5 x10(3)/mcL 10/09/2018 6:56 PM EDT [facility] Baso # 0.0 0.0 - 0.1 x10(3)/[facility] 10/09/2018 6:56 PM EDT [facility] Blood Venipuncture / Unknown 10/09/2018 12:29 PM EDT 10/09/2018 12:29 PM EDT Result [facility] Thea Rubio MD HEMATOLOGY ORDERABLES Antonia l Result Performing Organization Address [facility] de Phone Number [facility] [address] [place] [address] , [place] [address] * HPV HIGH RISK (10/09/2018 11:58 AM EDT) HPV HR Not Detected Not Detected 10/10/2018 2:17 PM EDT [facility] Thin Prep SPECIMEN FROM UTERINE CERVIX / Unknown 10/09/2018 11:58 AM EDT 10/09/2018 11:58 AM EDT Narrative [facility] - 10/10/2018 2:17 PM EDT This test was performed using [...] other available laboratory and clinical data.?? us Thea Rubio MD MICROBIOLOGY - GENERAL ORD ERABLES Final Result Performing Organization Address [facility] Co de Phone Number [facility] [address] [place] [address] , [address] [place] [id number] * (ABNORMAL) LEAF CONDITIONER CYTOLOGY REQUEST (PAP ONLY) (10/09/2018 11:58 AM EDT) CASE REPORT Gynecologic Cytology Report ? Case: [id number] ? Authorizing Provider: ??Thea Rubio MD ?Collected: ? 10/09/2018 1158 ? Ordering Location: ? [facility] ? Received: ?10/09/2018 1158 ? First Screen: ?Adilson, Lauren, CT ? Pathologist: ? Obdulia Hernandez MD ? Specimen: ?LIQUID-BASED PAP - CERVICAL, Cervix ? 10/12/2018 3:34 PM EDT [facility] PAP FINAL DIAGNOSIS Low grade squamous intraepithelial lesion(A) 10/12/2018 3:34 PM EDT [facility] OSCOPIC DESCRIPTION Microscopic examination is performed and the findings corroborate the diagnosis. 10/12/2018 3:34 PM EDT [facility] PAP SMEAR ADEQUACY Satisfactory for evaluation 10/12/2018 3:34 PM EDT [facility] ENDOCERVICAL T-ZONE Transformation zone absent. 10/12/2018 3:34 PM EDT [facility] EMBEDDED IMAGES 9 3:34 PM EDT [facility] PAP DISCLAIMER The Pap Smear is a screening test that aids in the detection of cervical cancer and cancer precursors. Both false positive and false negative results can occur. The test should be used at regular intervals, and positive results should be confirmed before definitive therapy. Processed using the ThinPrep Telephone Technician Automated cytology screening device (Tuicool). 10/12/2018 3:34 PM EDT [facility] Thin Prep SPECIMEN FROM UTERINE CERVIX / Unknown 10/09/2018 11:58 AM EDT 10/09/2018 11:58 AM EDT us Thea Ruboi MD CYTOLOGY ORDERAB[place] [address] documented in this encounter Visit Diagnoses Diagnosis Well adult exam- Primary Routine general medical examination at a health care facility Well woman exam with routine gynecological exam Routine gynecological examination Allergic contact dermatitis due to plants, except food Contact dermatitis and other eczema due to plants (except food) Breast discharge Other sign and symptom in breast Cyanocobalamin deficiency Other B-complex deficiencies documented in this encounter Historical Medications * This list may reflect changes made after this encounter. ketorolac (TORADOL) 10 mg Oral Tablet Take 10 mg by mouth every 6 hours as needed for Pain. 03/25/2019 added in this encounter Additional Health Concerns Assessment Noted Time PHQ-9 Depression Total Score: 2 10/07/19 18 8:00 AM EDT PHQ-2 Depression Total Score: 2 10/07/19 18 8:00 AM EDT documented as of this encounter Care Teams Lead Project Engineer Relationship Specialty Start Date End Date Thea Rubio MD PCP - General Family Medicine 09/13/14 07/16/22 documented as of this encounter
--- OUTSIDE RECORDS SUMMARY | 2024-03-14 18:19 | XMS_ITS | Encounter Summary ---
Author Organization [place] [address] Care Team Providers Care Hand Hardener Name Role Phone Thea Rubio MD Primary Care Provider +1- [phone] Encounter Details Date Type Department Care Team (Late st Contact Info) Description 08/26/2018 Orders Only [facility] [place] [facility] [address] [place] [address] Magdalena Tello RMA ASD (atrial septal defect) (Primary Dx) Social [...] End Date amLODIPine (NORVASC) 2.5 mg Oral TabletIndications:A SD (atrial septal defect) Take 1 Tab by mouth daily. 30 Tab 1 08/26/2018 11/24/2018 documented in this encounter Plan of Treatment Upcoming Encounters Date Type Department Care Team (Late st Contact Info) Description 04/24/2024 10:45 AM EST Clinical Support [facility] [address] [place] [address] documented as of this encounter [...] atrial septal defect documented in this encounter Discontinued Medications Medication Sig Discontinue Reason Start Date End Da te amLODIPine (NORVASC) 2.5 mg Oral Tablet Take 1 Tab by mouth daily. Reorder 05/25/2018 08/26/2018 documented as of this encounter Additional Health Concerns Assessment Noted Time PHQ-9 Depression Total Score: 2 10/07/19 18 8:00 AM EDT PHQ-2 Depression Total Score: 2 10/07/19 18 8:00 AM EDT documented as of this encounter Care Teams Hand Hardener Relationship Specialty Start Date End Date Thea Rubio MD PCP - General Family Medicine 09/13/14 07/16/22 documented as of this encounter
--- OUTSIDE RECORDS SUMMARY | 2024-03-14 18:19 | XMS_ITS | Encounter Summary ---
Author Organization [place] [address] Care Team Providers Care Lung Gun Operator Name Role Phone Thea Rubio MD Primary Care Provider +1- [phone] Reason for Visit * Reason Comments Medication Refill Encounter Details Date Type Department Care Team (Late Contact Info) Description 11/24/2018 Refill [facility] [place] [facility] [address] [place] [address] Migue Anne MD [address] [place] [address] Medication Refill Social History Tobacco Use Types [...] End Date amLODIPine (NORVASC) 2.5 mg Oral TabletIndications: ASD (atrial septal defect) TAKE ONE TABLET BY MOUTH DAILY 30 Tab 10 11/24/2018 05/12/2019 documented in this encounter Plan of Treatment Upcoming Encounters Date Type Department Care Team (Late Contact Info) Description 04/24/2024 10:45 AM EST Clinical Support [facility] [address] [facility] [place] [address] documented as of this encounter [...] 2.5 mg Oral TabletIndications:ASD (atrial septal defect) Take 1 Tab by mouth daily. Reorder 08/26/2018 11/24/2018 documented as of this encounter Additional Health Concerns Assessment Noted Time PHQ-9 Depression Total Score: 2 10/07/19 18 8:00 AM EDT PHQ-2 Depression Total Score: 2 10/07/19 18 8:00 AM EDT documented as of this encounter Care Teams Lung Gun Operator Relationship Specialty Start Date End Date Thea Rubio MD PCP - General Family Medicine 09/13/14 07/16/22 documented as of this encounter
--- OUTSIDE RECORDS SUMMARY | 2024-03-14 18:19 | XMS_ITS | Encounter Summary ---
Author [place] [address] Care Team Providers Care Pockets And Pieces Necktie Operator Name Role Phone Thea Rubio MD Primary Care Provider +1- [phone] Reason for Visit * Reason Comments Procedure Ernul * Consultation (Routine) - Closed Specialty Diagnoses / Procedures Referred By Contac t Referred To Contact Obstetrics & Gynecology / Obstetrics and Gynecology Diagnoses Abnormal Pap smear of cervix NEW FLY WINDER - ABNORMAL PAP PER PCP Procedures NEW GYNECOLOGICAL Thea Rubio MD Phone: tel: fax: Misty Gillespie MD [address] [place] [address] Phone: tel: fax: Referral ID Status Reason Start Date Expiration Date Visits Re quested Visits Authorized [id number] Closed 10/28/2018 10/28/2019 99 99 Encounter Details Date Type Department Care Team (Late st Contact Info) Description 10/28/2018 2:20 PM EDT Office Visit [facility] [address] [place] [address] Misty Gillespie MD [address] [place] [address] 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) Social History Tobacco Use Types [...] Sign Reading Time Taken Comments Blood Pressure 116/78 10/28/2018 2:50 PM EDT Pulse 89 10/28/2018 2:50 PM EDT Temperature - - Respiratory Rate - - Oxygen Saturation - - Inhaled Oxygen Concentration - - Weight 68.5 kg (151 lb) 10/28/2018 2:50 PM EDT Height - - Body Mass Index 25.13 10/09/2018 10:32 AM EDT documented in this encounter Progress Notes * Misty Gillespie MD - 10/28/2018 2:20 PM EDT COLPOSCOPY PROCEDURE NOTE Pap Smear: low-grade squamous intraepithelial neoplasia (LGSIL - encompassing HPV,mild dysplasia,JACQUI I) HRHPV: negative EXAM: SCJ VISUALIZED IN ENTIRETY:Yes FINDINGS: minimal ACW changes PROCEDURES PERFORMED: ECC: Yes BIOPSY: Yes LOCATION: 9 O'CLOCK SMOKER: no Natural history of HPV as well as spectrum of pap smear results discussed with patient. All questions answered to her satisfaction. Plan dependent on results. Misty Gillespie MD documented in this encounter Plan of Treatment Upcoming Encounters Date Type Department Care Team (Late st Contact Info) Description 04/24/2024 10:45 AM EST Clinical Support [facility] [address] [place] [address] Scheduled Orders Name Type Priority Associated Diagnoses Orde r Schedule MA COLPOSC,CERVIX W/ADJ VAG,W/BX & CURRETAG MA Charge Routine LGSIL on Pap smear of cervix Ordered: 10/28/2018 documented as of this encounter Goals Goal Patient Goal Type Associated Problems Recent Progress Patient-Stated? Author Maintain a healthy diet, exercise regularly and maintain an ideal body weight General No Tcheng, Alvekarena Margarito, MD Stay Tobacco Free Lifestyle No Thea Rubio MD documented as of this encounter Procedures Procedure Name Priority Date/Time Associated Diagnosis Comments PATHOLOGY TISSUE REQUEST Routine 10/28/2018 3:08 PM EDT LGSIL on Pap smear of cervix documented in this encounter Results * PATHOLOGY TISSUE REQUEST (10/28/2018 3:08 PM EDT) CASE REPORT Surgical Pathology ?Case: [id number] ? Authorizing Provider: ??Misty Gillespie MD ? Collected: ? 10/28/2018 1508 ? Ordering Location: ? [facility] ? Received: ?10/28/2018 1508 ? Pathologist: ? Makenzie Calix MD ? Specimens: ?? A) - Cervix, Endocervical ? B) - Cervix, ecto ? 10/29/2018 2:57 PM EDT [facility] FINAL DIAGNOSIS A. Endocervix, curettage: - Fragments of benign endocervical glandular tissue and detached benign squamous epithelium. B. Cervix, 9:00, biopsy: - Low-grade squamous intraepithelial lesion (LSIL, CIN1) in a background of mixed inflammation. - Negative for high-grade dysplasia and carcinoma. 10/29/2018 2:57 PM EDT [facility] S DESCRIPTION Part A) Received in formalin labeled with the patient's name and endocervical is a 2.8 x 0.4 x 0.2 cm aggregate of minute fragments of pale hernandez tissue. Entirely submitted in one cassette. /ZN Part B) Received in formalin labeled with the patient? s name and biopsy at 9 o'clock is a single fragment of hernandez tissue, 0.4 cm in greatest dimension. Entirely submitted in one cassette. /ZN 10/29/2018 2:57 PM EDT [facility] MICROSCOPIC DESCRIPTION Microscopic examination is performed and the findings corroborate the diagnosis. 10/29/2018 2:57 PM EDT [facility] EMBEDDED IMAGES 10/29/2018 2:57 PM EDT [facility] Tissue SPECIMEN FROM UTERINE CERVIX / Unknown 10/28/2018 3:08 PM EDT 10/28/2018 3:08 PM EDT Tissue specimen (specimen) SPECIMEN FROM UTERINE CERVIX / Unknown 10/28/2018 3:08 PM EDT 10/28/2018 3:08 PM EDT us Misty Gillespie MD PATHOLOGY ORDERABLES Final Result [facility] [address] [id number] documented in this encounter Visit Diagnoses Diagnosis LGSIL on Pap smear of cervix- Primary documented in this encounter Additional Health Concerns Assessment Noted Time PHQ-9 Depression Total Score: 2 10/07/19 18 8:00 AM EDT PHQ-2 Depression Total Score: 2 10/07/19 18 8:00 AM EDT documented as of this encounter Care Teams Pockets And Pieces Necktie Operator Relationship Specialty Start Date End Date Thea Rubio MD PCP - General Family Medicine 09/13/14 07/16/22 documented as of this encounter
--- OUTSIDE RECORDS SUMMARY | 2024-03-14 18:19 | XMS_ITS | Encounter Summary ---
Author Organization [place] [address] Care Team Providers Care Armature Winder Helper Repair Name Role Phone Thea Rubio MD Primary Care Provider +1- [phone] Encounter Details Date Type Department Care Team (Latest Contact Info) Description 10/09/2018 12:28 PM EDT - 10/09/2018 11:59 PM EDT Hospital Encounter [facility] [address] [id number] [place], [facility] Well adult exam; Cyanocobalamin deficiency; Breast discharge Discharge Disposition: Home or Self Care Social [...] [facility] [address] [place] [address] documented as of this encounter Goals Goal Patient Goal Type Associated Problems Recent Progress Patient-Stated? Author Maintain a healthy diet, exercise regularly and maintain an ideal body weight General No Thea Rubio MD Stay Tobacco Free Lifestyle No Thea Rubio MD documented as of this encounter Procedures Procedure Name Priority Date/Time Associated Diagnosis Comments TSH REFLEX Routine 10/09/2018 12:29 PM EDT Well adult exam PROLACTIN LEVEL Routine 10/09/2018 12:29 PM EDT Breast discharge CBC WITH DIFF Routine 10/09/2018 12:29 PM EDT Well adult exam VITAMIN B12 LEVEL Routine 10/09/2018 12: 29 PM EDT Cyanocobalamin deficiency COMPREHENSIVE METABOLIC PANEL Routine 10/09/2018 12:29 PM EDT Well adult exam documented in this encounter Results * PROLACTIN LEVEL (10/09/2018 12:29 PM EDT) Prolactin 7.97 4.79 - 23.30 ng/mL 10/09/2018 7:18 PM EDT [facility] VENOUS BLOOD / Unknown Venipuncture / Unknown 10/09/2018 12:29 PM EDT 10/09/2018 12:29 PM EDT Narrative [facility] - 10/09/2018 7:18 PM EDT Ingestion of abimael doses of biotin (>5 mg/day) taken within 8 hours of drawing blood sample can interfere with this immunoassay test. us Thea Rubio MD CHEMISTRY ORDERABLES Final Result [facility] [address] [address] , [place] [address] * VITAMIN B12 LEVEL (10/09/2018 12:29 PM EDT) Vitamin B12 383 211 - 946 pg/mL 10/09/2018 7:26 PM EDT [facility] Blood Venipuncture / Unknown 10/09/2018 12:29 PM EDT 10/09/2018 12:29 PM EDT Narrative [facility], [facility] - 10/09/2018 7:26 PM EDT Ingestion of abimael doses of biotin (>5 mg/day) taken within 8 hours of drawing blood sample can interfere with this immunoassay test. Thea Rubio MD CHEMISTRY ORDERABLES Final Result Performing Organization Address City/[facility]/ZIP Co de Phone Number [facility] [email or web address] [facility] [address] [facility] , [place] [address] * TSH REFLEX (10/09/2018 12:29 PM EDT) TSH Reflex 2.250 0.270 - 4.200 mcIU/mL 10/09/2018 7:18 PM EDT [facility] Blood Venipuncture / Unknown 10/09/2018 12:29 PM EDT 10/09/2018 12:29 PM EDT Narrative [facility] - 10/09/2018 7:18 PM EDT Ingestion of abimael doses of biotin (>5 mg/day) taken within 8 hours of drawing blood sample can interfere with this immunoassay test. Thea Rubio MD CHEMISTRY ORDERABLES Final Result [facility], [facility] [address] [address] , [place] [address] * COMPREHENSIVE METABOLIC PANEL (10/09/2018 12:29 PM EDT) Sodium 139 136 - 145 mmol/L 10/09/2018 7:18 PM EDT [facility] Potassium 3.5 3.5 - 5.0 mmol/L 10/09/2018 7:18 PM EDT [facility] Chloride 105 98 - 107 mmol/L 10/09/2018 7:18 PM EDT [facility] Total CO2 23 22 - 29 mmol/L 10/09/2018 7:18 PM EDT [facility] Anion Gap 11 7 - 16 mmol/L 10/09/2018 7:18 PM EDT [facility] Calcium 9.1 8.6 - 10.4 mg/dL 10/09/2018 7:18 PM EDT [facility] Glucose Lvl 89 74 - 100 mg/dL 10/09/2018 7:18 PM EDT [facility] BUN 6 6 - 20 mg/dL 10/09/2018 7:18 PM EDT [facility] Creatinine 0.75 0.51 - 1.30 mg/dL 10/09/2018 7:18 PM EDT [facility] Albumin 4.1 3.5 - 5.2 gm/dL 10/09/2018 7:18 PM EDT [facility] Total Protein 7.2 6.4 - 8.3 gm/dL 10/09/2018 7:18 PM EDT [facility] Bili Total 0.4 0.1 - 1.3 mg/dL 10/09/2018 7:18 PM EDT [facility] ALT 6 <=41 IU/L 10/09/2018 7:18 PM EDT [facility] AST 13 <=40 IU/L 10/09/2018 7:18 PM EDT [facility] Alk Phos 88 36 - 123 IU/L 10/09/2018 7:18 PM EDT [facility] GFR Afr Am 119 >=60 mL/min/1.7 3 m2 10/09/2018 7:18 PM EDT [facility] GFR Non Afr Am 103 >=60 mL/min/1.7 3 m2 10/09/2018 7:18 PM EDT [facility] Comment: This estimated GFR was calculated [...] Final Result [facility] [address] , [place] [address] [facility] [address] [place] [address] * CBC WITH DIFF (10/09/2018 12:29 PM [...] 6:56 PM EDT [facility] MCH 28.6 26.0 - 34.0 pg 10/09/2018 6:56 PM EDT [facility] MCHC 32.6 30.7 - 35.5 g/dL 10/09/2018 6:56 PM EDT [facility] RDW 13.3 <=14.9 % 10/09/2018 6:56 PM EDT [facility] Platelet 324 155 - 369 x10(3)/mcL 10/09/2018 6:56 PM EDT [facility] MPV 10.1 8.8 - 12.5 fL 10/09/2018 6:56 PM EDT [facility] Neut Percent 64.4 % 10/09/2018 6:56 PM EDT [facility] Comment:Neutrophils equals s egs plus bands Imm Gran% 0.3 % 10/09/2018 6:56 PM EDT [facility] Comment:Automated count of m etamyelocytes, myelocytes and promyelocytes. Lymph Percent 21.3 % 10/09/2018 6:56 PM EDT [facility] [place] Percent 7.6 % 10/09/2018 6:56 PM EDT [facility] Eos Percent 5.8 % 10/09/2018 6:56 PM EDT [facility] Baso Percent 0.6 % 10/09/2018 6:56 PM EDT [facility] Neut # 4.5 1.6 - 6.1 x10(3)/[facility] 10/09/2018 6:56 PM EDT [facility] Comment:Neutrophils equals s egs plus bands IMMGRAN# 0.0 0.0 - 0.1 x10(3)/mcL 10/09/2018 6:56 PM EDT [facility] Comment:Automated count of m etamyelocytes, myelocytes and promyelocytes. An absolute IG <0.1 is reported as 0.0. Lymph # 1.5 1.2 - 3.9 x10(3)/mcL 10/09/2018 6:56 PM EDT [facility] [place] # 0.5 0.3 - 0.9 x10(3)/mcL 10/09/2018 6:56 PM EDT [facility] Eos# 0.4 0.0 - 0.5 x10(3)/[facility] 10/09/2018 6:56 PM EDT [facility] Baso # 0.0 0.0 - 0.1 x10(3)/mcL 10/09/2018 6:56 PM EDT [facility] Blood Venipuncture / Unknown 10/09/2018 12:29 PM EDT 10/09/2018 12:29 PM EDT us Thea Rubio MD HEMATOLOGY ORDERABLES Antonia zach Result [facility] [address] [facility] , [address] [place] [id number] documented in this encounter Visit Diagnoses Diagnosis Well adult exam Routine general medical examination at a health care facility Cyanocobalamin deficiency Other B-complex deficiencies Breast discharge Other sign and symptom in breast documented in this encounter Additional Health Concerns Assessment Noted Time PHQ-9 Depression Total Score: 2 10/07/19 18 8:00 AM EDT PHQ-2 Depression Total Score: 2 10/07/19 18 8:00 AM EDT documented as of this encounter Care Teams Armature Winder Helper Repair Relationship Specialty Start Date End Date Thea Rubio MD PCP - General Family Medicine 09/13/14 07/16/22 documented as of this encounter
--- OUTSIDE RECORDS SUMMARY | 2024-03-14 18:19 | XMS_ITS | Encounter Summary ---
Author Organization [place] [address] Care Team Providers Care Epic Ambulatory Analyst Name Role Phone Thea Rubio MD Primary Care Provider +1- [phone] Encounter Details Date Type Department Care Team (Latest Contact Info) Description 04/15/2018 11:31 AM EST - 04/15/2018 11:59 PM EST Hospital Encounter [facility] [address] [place], [place] [id number] Possible exposure to STD; Anemia, unspecified type; Atypical chest pain Discharge Disposition: Home or [...] on file documented as of this encounter Discharge Disposition Disposition Code Departure Means Destination Home or Self Care documented in this encounter Plan of Treatment Upcoming Encounters Date Type Department Care Team (Late st Contact Info) Description 04/24/2024 10:45 AM EST Clinical Support [facility] [address] [place] [address] documented as of this encounter Goals Goal Patient Goal Type Associated Problems Recent Progress Patient-Stated? Author Maintain a healthy diet, exercise regularly and maintain an ideal body weight General No Thea Rubio MD Stay Tobacco Free Lifestyle No Tcheng, Thea Pimentel MD documented as of this encounter Procedures Procedure Name Priority Date/Time Associated Diagnosis Comments IRON/UIBC Routine 04/15/2018 11:33 AM EST Anemia, unspecified type D-DIMER Routine 04/15/2018 11:33 AM EST Atypical chest pain CBC WITH DIFF Routine 04/15/2018 11:33 AM EST Anemia, unspecified type VITAMIN B12 LEVEL Routine 04/15/2018 11: 33 AM EST Anemia, unspecified type HIV AG/AB Routine 04/15/2018 11:31 AM EST Possible exposure to STD SYPHILIS SCREEN WITH REFLEX RPR QUANT Routine 04/15/2018 11:31 AM EST Possible exposure to STD ACUTE HEPATITIS PANEL Routine 04/15/2018 11:31 AM EST Possible exposure to STD documented in this encounter Results * D-DIMER (04/15/2018 11:33 AM EST) D-Dimer <230 <=230 ng/mL D-DU 04/15/2018 2:30 PM EST [facility] Comment: This test has been clinically validated by the tile ditcher and approved by the FDA for exclusion of pulmonary embolism (PE) or deep vein thrombosis (DVT) in patients with a low clinical risk assessment. ?? The cutoff for exclusion of PE and DVT is < 230 ng/mL D-Dimer Units. Increased levels of D-dimer are associated with PE, DVT, disseminated intravascular coagulation, malignancies, inflammation, sepsis, surgery, trauma, , and advanced patient age. Blood VENOUS BLOOD / Unknown Venipuncture / Unknown 04/15/2018 11:33 AM EST 04/15/2018 11:33 AM EST us Migue Anne MD HEMATOLOGY ORDERABLES F inal Result [facility] [address] [facility] , [place] [address] * IRON/UIBC (04/15/2018 11:33 AM EST) Iron 139 30 - 160 mcg/dL 04/15/2018 3:03 PM EST [facility] UIBC 243 112 - 347 mcg/dL 04/15/2018 3:03 PM EST [facility] Transferrin Sat 36 20 - 50 % 8 3:03 PM EST [facility] Blood Venipuncture / Unknown 04/15/2018 11:33 AM EST 04/15/2018 11:33 AM EST us Thea Rubio MD CHEMISTRY ORDERABLES Final Result [facility] [address] [facility] , [place] [address] * CBC WITH DIFF (04/15/2018 11:33 AM EST) WBC 7.4 3.7 - 10.3 x10(3)/mcL 04/15/2018 2:47 PM EST [facility] RBC 4.78 3.90 - 5.20 x10(6)/mcL 04/15/2018 2:47 PM EST [facility] Hgb 13.4 11.2 - 15.7 g/dL 04/15/2018 2:47 PM EST [facility] Hct 41.8 34.0 - 45.0 % 04/15/2018 2:47 PM EST [facility] MCV 87.4 79.0 - 98.0 fL 04/15/2018 2:47 PM EST [facility] MCH 28.0 26.0 - 32.0 pg 04/15/2018 2:47 PM EST [facility] MCHC 32.1 30.7 - 35.5 g/dL 04/15/2018 2:47 PM EST [facility] RDW 14.4 <=14.9 % 04/15/2018 2:47 PM EST [facility] Platelet 347 155 - 369 x10(3)/mcL 04/15/2018 2:47 PM EST [facility] MPV 10.2 8.8 - 12.5 fL 04/15/2018 2:47 PM EST [facility] Neut Percent 70.8 % 04/15/2018 2:47 PM EST [facility] Comment:Neutrophils equals s egs plus bands Imm Gran% 0.4 % 04/15/2018 2:47 PM EST [facility] Comment:Automated count of m etamyelocytes, myelocytes and promyelocytes. Lymph Percent 17.7 % 04/15/2018 2:47 PM EST [facility] Solano Percent 6.0 % 04/15/2018 2:47 PM EST [facility] Eos Percent 4.8 % 04/15/2018 2:47 PM EST [facility] Baso Percent 0.3 % 04/15/2018 2:47 PM EST [facility] Neut # 5.3 1.6 - 6.1 x10(3)/[facility] 04/15/2018 2:47 PM EST [facility] Comment:Neutrophils equals s egs plus bands IMMGRAN# 0.0 0.0 - 0.1 x10(3)/[facility] 04/15/2018 2:47 PM EST [facility] Comment:Automated count of m etamyelocytes, myelocytes and promyelocytes. An absolute IG <0.1 is reported as 0.0. Lymph # 1.3 1.2 - 3.9 x10(3)/[facility] 04/15/2018 2:47 PM EST [facility] [place] # 0.5 0.3 - 0.9 x10(3)/[facility] 04/15/2018 2:47 PM EST [facility] Eos# 0.4 0.0 - 0.5 x10(3)/[facility] 04/15/2018 2:47 PM EST [facility] Baso # 0.0 0.0 - 0.1 x10(3)/[facility] 04/15/2018 2:47 PM EST [facility] Blood Venipuncture / Unknown 04/15/2018 11:33 AM EST 04/15/2018 11:33 AM EST us Thea Rubio MD HEMATOLOGY ORDERABLES Antonia l Result [facility], [address] , [place] [address] * VITAMIN B12 LEVEL (04/15/2018 11:33 AM EST) [facility] Vitamin B12 440 211 - 946 pg/mL 04/15/2018 3:15 PM EST [facility] Blood Venipuncture / Unknown 04/15/2018 11:33 AM EST 04/15/2018 11:33 AM EST Narrative [facility] - 04/15/2018 3:15 PM EST Ingestion of abimael doses of biotin (>5 mg/day) taken within 8 hours of drawing blood sample can interfere with this immunoassay test. us Thea Rubio MD CHEMISTRY ORDERABLES Final Result Performing Organization Address [facility] Phone Number [facility] [employer] , [place] [address] * ACUTE HEPATITIS PANEL (04/15/2018 11:31 AM EST) [facility] Hep Bs Ag Non-Reacti ve Non-Reacti ve 04/15/2018 3:42 PM EST [facility] Hep B Core IgM Non-Reacti ve Non-Reacti ve 04/15/2018 3:42 PM EST [facility] Hep A IgM Non-Reacti ve Non-Reacti ve 04/15/2018 3:42 PM EST [facility] Hep C Ab Non-Reacti ve Non-Reacti ve 04/15/2018 3:42 PM EST [facility] Blood VENOUS BLOOD / Unknown Venipuncture / Unknown 04/15/2018 11:31 AM EST 04/15/2018 11:31 AM EST us Gary White DO CHEMISTRY ORDERABLES Final Res ult Performing Organization Address [facility] Co de Phone Number [facility] [address] [facility] , [place] [address] * SYPHILIS SCREEN WITH REFLEX RPR QUANT (04/15/2018 11:31 AM EST) [facility] Trep Ab Index 0.07 <=0.99 Index Value 04/15/2018 3:39 PM EST [facility] Comment: < 1.00 - Negative ?? >=1.00 - Positive NOTE: ??All positive results will be reflexed to Quantitative Non-Treponemal(RPR)test. ?? Blood VENOUS BLOOD / Unknown Venipuncture / Unknown 04/15/2018 11:31 AM EST 04/15/2018 11:31 AM EST us Gary White DO CHEMISTRY ORDERABLES Final Res ult Performing Organization Address [facility]/ZIP Co de Phone Number [facility] [address] [facility] , [place] [address] * HIV AG/AB (04/15/2018 11:31 AM EST) [facility] HIV Ag/AB Non-Reacti ve Non-Reactive, See Footnote 04/15/2018 3:42 PM EST [facility] Blood VENOUS BLOOD / Unknown Venipuncture / Unknown 04/15/2018 11:31 AM EST 04/15/2018 11:31 AM EST [employer] Gary White DO IMMUNOLOGY ORDERABLES Final Re sult Performing Organization Address [facility] Co de Phone Number [facility] [employer] [facility] [address] [facility] , [place] [address] documented in this encounter Visit Diagnoses Diagnosis Possible exposure to STD Other specified personal history presenting hazards to health Anemia, unspecified type Atypical chest pain Other chest pain documented in this encounter Additional Health Concerns Assessment Noted Time PHQ-9 Depression Total Score: 2 10/07/19 18 8:00 AM EDT PHQ-2 Depression Total Score: 2 10/07/19 18 8:00 AM EDT documented as of this encounter Care Teams Epic Ambulatory Analyst Relationship Specialty Start Date End Date Thea Rubio MD PCP - General Family Medicine 09/13/14 07/16/22 documented as of this encounter
--- OUTSIDE RECORDS SUMMARY | 2024-03-14 18:19 | XMS_ITS | Encounter Summary ---
Author Organization [place] [address] Care Team Providers Care Receiving Tank Operator Name Role Phone Thea Rubio MD Primary Care Provider +1- [phone] Reason for Visit * Reason Onset Date Comments Appointment Needed 04/24/2018 Canceled 04/27 Encounter Details Date Type Department Care Team (Late st Contact Info) Description 04/24/2018 Telephone [facility] [address] [place] [phone] Tiny Ortega, ICT DEVELOPER [address] [place] [address] Appointment Needed (Canceled 04/27) Social History Tobacco Use Types Packs/Day Years [...] encounter Miscellaneous Notes * Telephone Encounter - Magdalena Tello RMA - 04/24/2018 3:17 PM EST Spoke to patient and rescheduled * Telephone Encounter - Norberto Jishree Yates - 04/24/2018 2:54 PM EST PT needs to cancel appointment on FridayApr 27 and r/s. Please call documented in this encounter Plan of Treatment Upcoming Encounters Date Type Department Care Team (Late st Contact Info) Description 04/24/2024 10:45 AM EST Clinical Support [facility] [address] [place] [address] documented as of this encounter Goals Goal [...] documented as of this encounter Care Teams Receiving Tank Operator Relationship Specialty Start Date End Date Thea Rubio MD PCP - General Family Medicine 09/13/14 07/16/22 documented as of this encounter
--- OUTSIDE RECORDS SUMMARY | 2024-03-14 18:19 | XMS_ITS | Encounter Summary ---
Author Organization [place] [address] Care Team Providers Care Timber Sprinkler Name Role Phone Thea Rubio MD Primary Care Provider +1- [phone] Reason for Visit * Reason Onset Date Comments Reschedule 08/10/2018 Encounter Details Date Type Department Care Team (Late st Contact Info) Description 08/10/2018 Telephone [facility]P [facility] [address] [place] [address] Migue Anne MD [address] [place] [address] Reschedule Social History Tobacco Use Types Packs/Day Years [...] Telephone Encounter - Heather Holden LPN - 08/13/2018 1:18 PM EDT Rescheduled to 02/15/19 * Telephone Encounter - Heather Holden LPN - 08/10/2018 11:30 AM EDT Left message to have patient return call * Telephone Encounter - Ena Stephen, Clerical Staff - 08/10/2018 10:56 AM EDT Pt needs to reschedule her appt from 4.23.[address] anne.Please call pt. documented in this encounter Plan of Treatment Upcoming Encounters Date Type Department Care Team (Late st Contact Info) Description 04/24/2024 10:45 AM EST Clinical Support [facility] [address] [place] [address] documented as of this encounter Goals Goal [...] documented as of this encounter Care Teams Timber Sprinkler Relationship Specialty Start Date End Date Thea Rubio MD PCP - General Family Medicine 09/13/14 07/16/22 documented as of this encounter
--- OUTSIDE RECORDS SUMMARY | 2024-03-14 18:19 | XMS_ITS | Encounter Summary ---
Author Organization [facility] Address [place] [address] Care Team Providers Care Pen Ruler Operator Name Role Phone Thea Rubio MD Primary Care Provider +1- [phone] Reason for Visit * Reason Comments Follow-up ASD * Consultation (Routine) - Closed Specialty Diagnoses / Procedures Referred By Contac t Referred To Contact Internal Medicine-Cardiovascular Disease / Cardiology Diagnoses 7 month follow up Procedures OFFICE VISIT Thea Rubio MD Phone: tel: fax: Migue Anne MD [address] [place] [address] Phone: tel: fax: Referral ID Status Reason Start Date Expiration Date Visits Re quested Visits Authorized [id number] Closed 08/11/2018 08/11/2019 99 99 Encounter Details Date Type Department Care Team (Late st Contact Info) Description 03/25/2019 3:00 PM EST Office Visit [facility] [place] [facility] [address] [place] [address] Migue Anne MD [address] [place] [address] [place] [address] H/O Amplatzer atrial septal defect closure (Primary Dx); Chest discomfort; Other fatigue Social History Tobacco Use Types Packs/Day Years [...] Sign Reading Time Taken Comments Blood Pressure 106/58 03/25/2019 3:06 PM EST Pulse 84 03/25/2019 3:06 PM EST Temperature - - Respiratory Rate 16 03/25/2019 3:06 PM EST Oxygen Saturation - - Inhaled Oxygen Concentration - - Weight 74.3 kg (163 lb 12.8 oz) 03/25/2019 3:06 PM EST Height 165.1 cm (5' 5 ) 03/25/2019 3:06 PM EST Body Mass Index 27.26 03/25/2019 3:06 PM EST documented in this encounter Ordered Prescriptions Prescription Sig Dispense Quantity Refills Last Filled Start Date End Date potassium chloride SA (K-DUR;KLOR-CON) 10 mEq Oral Tab Sust.Rel. Particle/Crystal Take 1 Tab by mouth daily. 30 Tab 6 03/25/2019 11/01/2019 documented in this encounter Progress Notes * Migue Anne MD - 03/25/2019 3:00 PM EST Cardiology Follow Up Visit Name: Gardenia Childress : 1980 Referring Physician Thea Rubio MD Reason for Follow-up Chest Brennan, ASD Chief Complaint: General Fatigue HPI 39 y.o. female is seen for regarding chest pain and h/o ASD closure. States the chest pain has beenstable and rarely occurs. 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 States she feels tired all the time . Her weight is up about 30 lbs which she attributes to BCP. ROS Denies: Change in vision, headache, fever, chills, nausea, vomiting, anorexia, diarrhea, change in bowel or bladder habits, weight loss or gain. No palpitations, lightheadedness, dizziness, syncope, or near syncope. No extreme fatigue, daytime solomence or change in energy level. No significant depression or anhedonia. Current Outpatient Medications Medication Sig Dispense Refill ??? amLODIPine (NORVASC) 2.5 mg Oral Tablet TAKE ONE TABLET BY MOUTH DAILY 30 Tab 10 ??? aspirin 81 mg Oral Tablet, Delayed Release (E.C.) TAKE ONE TABLET BY MOUTH DAILY 30 Tab 10 ??? cetirizine (ZYRTEC) 10 mg Oral Tablet Take by mouth daily. ??? escitalopram oxalate (LEXAPRO) 20 mg Oral Tablet TAKE ONE TABLET BY MOUTH DAILY 90 Tab 1 ??? ferrous sulfate 325 mg (65 mg iron) Oral Tablet Take 1 Tab by mouth daily. ??? medroxyprogesterone acetate (DEPO-PROVERA IM) Inject into the muscle. Every three months ??? ranitidine HCl (ZANTAC ORAL) Take 1 Tab by mouth daily. ??? potassium chloride SA (K-DUR;KLOR-CON) 10 mEq Oral Tab Sust.Rel. Particle/Crystal Take 1 Tab bymouth daily. 30 Tab 6 No current facility-administered medications for this visit. Allergies Allergen Reactions ??? Latex Rash ??? Latex, Natural Rubber Rash ??? Morphine Nausea And Vomiting ??? Metronidazole Rash Objective Vitals: 03/25/19 1506 BP: 106/58 Pulse: 84 Resp: 16 Exam: GENERAL APPEARANCE: In no [...] No results found for this visit on 03/25/19. Labs Lab Results Component Value Date CHOLESTEROL 154 05/14/2017 CHOLESTEROL 151 04/22/2017 CHOLESTEROL 174 10/07/2015 HDL 68 05/14/2017 HDL 63 04/22/2017 HDL 50 10/07/2015 LDLCALC 73 05/14/2017 LDLCALC 74 04/22/2017 LDLCALC 110 (H) 10/07/2015 TRIG 67 05/14/2017 TRIG 72 04/22/2017 TRIG 71 10/07/2015 Lab Results Component Value Date INR 1.06 07/04/2017 Lab Results Component Value Date WBC 6.9 10/09/2018 WBC 6.0 05/19/2018 WBC 7.4 04/15/2018 HGB 12.9 10/09/2018 HGB 12.6 05/19/2018 HGB 13.4 04/15/2018 HCT 39.6 10/09/2018 HCT 38.4 05/19/2018 HCT 41.8 04/15/2018 MCV 87.8 10/09/2018 MCV 86.9 05/19/2018 MCV 87.4 04/15/2018 PLT 324 10/09/2018 PLT 461 (H) 05/19/2018 PLT 347 04/15/2018 No results found for: HGBA1C Lab Results Component Value Date NA 139 10/09/2018 NA 140 05/19/2018 NA 141 04/14/2018 K 3.5 10/09/2018 K 3.9 05/19/2018 K 4.0 04/14/2018 BUN 6 10/09/2018 BUN 9 05/19/2018 BUN 8 04/14/2018 CALCIUM 9.1 10/09/2018 CALCIUM 9.0 05/19/2018 CALCIUM 8.9 04/14/2018 CL 105 10/09/2018 CL 104 05/19/2018 CL 108 (H) 04/14/2018 CO2 23 10/09/2018 CO2 26 05/19/2018 CO2 25 04/14/2018 CREATININE 0.75 10/09/2018 CREATININE 0.76 05/19/2018 CREATININE 0.89 04/14/2018 GLU 89 10/09/2018 GLU 85 05/19/2018 GLU 95 04/14/2018 Lab Results Component Value Date ALT 6 10/09/2018 ALT 11 04/14/2018 ALT 9 10/13/2017 AST 13 10/09/2018 AST 15 04/14/2018 AST 14 10/13/2017 ALKPHOS 88 10/09/2018 ALKPHOS 54 04/14/2018 ALKPHOS 53 10/13/2017 Lab Results Component Value Date TSHREFLEX 2.250 10/09/2018 Stress Echo 05/08: 9.8 METs negative ekg [...] ?? - empirically treating small vessel dz with some improvement ASD S/p Closure 07/06 - No associated [...] surgical release 11/04 ?? Leg Cramps Plan: Can try holding Amlodipine and follow fatigue symptoms Low dose potassium with leg cramps - Kdur 10 meq daily Encourage more aerobic activity and weigh loss Reviewed recent labs - thyroid is stable RTC 8 months documented in this encounter Miscellaneous Notes * Patient Instructions - Madeline Porter RMA - 03/25/2019 3:00 PM EST Start KDur 10meq, 1 tablet per day documented in this encounter Plan of Treatment Upcoming Encounters Date Type Department Care Team (Late st Contact Info) Description 04/24/2024 10:45 AM EST Clinical Support [facility] [address] [place] [phone] documented as of this encounter Goals Goal Patient Goal Type Associated Problems Recent Progress Patient-Stated? Author Maintain a healthy diet, exercise regularly and maintain an ideal body weight General No Tcheng, Alvena Margarito, MD Stay Tobacco Free Lifestyle No Thea Rubio MD documented as of this encounter Visit Diagnoses Diagnosis H/O Amplatzer atrial septal defect closure- Primary Personal history of surgery to heart and great vessels, presenting hazards to health Chest discomfort Other chest pain Other fatigue documented in this encounter Discontinued Medications Medication Sig Discontinue Reason Start Date End Da te ketorolac (TORADOL) 10 mg Oral Tablet Take 10 mg by mouth every 6 hours as needed for Pain. Discontinued by another clinician 03/25/2019 predniSONE (DELTASONE) 10 mg Oral TabletIndications:Javi rgic contact dermatitis due to plants, except food 3 stat, then 3 in AM for 2 days, then 2/AM for 3 days, then 1/AM for 3 days. Discontinued by another clinician 10/09/2018 03/25/2019 documented as of this encounter Additional Health Concerns Assessment Noted Time PHQ-9 Depression Total Score: 2 10/07/19 18 8:00 AM EDT PHQ-2 Depression Total Score: 2 10/07/19 18 8:00 AM EDT documented as of this encounter Care Teams Pen Ruler Operator Relationship Specialty Start Date End Date Thea Rubio MD PCP - General Family Medicine 09/13/14 07/16/22 documented as of this encounter
--- OUTSIDE RECORDS SUMMARY | 2024-03-14 18:19 | XMS_ITS | Encounter Summary ---
Author Organization [place] [address] Care Team Providers Care Operations Director Name Role Phone Thea Rubio MD Primary Care Provider +1- [phone] Encounter Details Date Type Department Care Team (Late st Contact Info) Description 04/17/2018 Orders Only [facility] [place] [address] [address] [place] [address] Eileen Pfeiffer ARNP [address] [address] BV (bacterial vaginosis) (Primary Dx) Social History Tobacco Use Types [...] Refills Last Filled Start Date End Date metroNIDAZOLE (FLAGYL) 500 mg Oral TabletIndications:B V (bacterial vaginosis) Take 1 Tab by mouth every 12 hours for 7 days. 14 Tab 04/17/2018 04/20/2018 documented in this encounter Plan of Treatment Upcoming Encounters Date Type Department Care Team (Late st Contact Info) Description 04/24/2024 10:45 AM EST Clinical Support [facility] [address] [place] [address] documented as of this encounter Goals Goal Patient Goal Type Associated Problems Recent Progress Patient-Stated? Author Maintain a healthy diet, exercise regularly and maintain an ideal body weight General No Thea Rubio MD Stay Tobacco Free Lifestyle No Thea Rubio MD documented as of this encounter Visit Diagnoses Diagnosis BV (bacterial vaginosis)- Primary Vaginitis and vulvovaginitis, unspecified documented in this encounter Additional Health Concerns Assessment Noted Time PHQ-9 Depression Total Score: 2 10/07/19 18 8:00 AM EDT PHQ-2 Depression Total Score: 2 10/07/19 18 8:00 AM EDT documented as of this encounter Care Teams Operations Director Relationship Specialty Start Date End Date Thea Rubio MD PCP - General Family Medicine 09/13/14 07/16/22 documented as of this encounter
--- OUTSIDE RECORDS SUMMARY | 2024-03-14 18:19 | XMS_ITS | Encounter Summary ---
Author Organization [place] [address] Care Team Providers Care Director Search Name Role Phone Thea Rubio MD Primary Care Provider +1- [phone] Reason for Visit * Reason Comments Nasal Congestion couple days Encounter Details Date Type Department Care Team (Late st Contact Info) Description 05/01/2018 2:15 PM EST [facility] Visit [facility] [address] [address] [address] [place] [address] Oma Palomo APRN [address] [place] [address] Acute rhinitis (Primary Dx) Social History Tobacco Use Types [...] Sign Reading Time Taken Comments Blood Pressure 114/74 05/01/2018 2:25 PM EST Pulse 85 05/01/2018 2:25 PM EST Temperature 36.7 ??C (98.1 ??F) 05/01/2018 2:25 PM ES T Respiratory Rate 16 05/01/2018 2:25 PM EST Oxygen Saturation 98% 05/01/2018 2:25 PM EST Inhaled Oxygen Concentration - - Weight 64.7 kg (142 lb 9.6 oz) 05/01/2018 2:25 P M EST Height 169.5 cm (5' 6.72 ) 05/01/2018 2:25 PM ES T Body Mass Index 22.52 05/01/2018 2:25 PM EST documented in this encounter Ordered Prescriptions Prescription Sig Dispense Quantity Refills Last Filled Start Date End Date fluticasone (FLONASE) 50 mcg/actuation Nasl Walker, SuspensionIndicatio ns:Acute rhinitis 1 Walker by Nasal route daily for 14 days. 1 Bottle 05/01/2018 05/15/2018 loratadine (CLARITIN) 10 mg Oral TabletIndications:A cute rhinitis Take 1 Tab by mouth daily. 14 Tab 05/01/2018 09/21/2018 documented in this encounter Progress Notes * Oma Palomo ARNP - 05/01/2018 2:15 PM EST Urgent Care Encounter [place] Kristie Childress 38 y.o. female is being seen today for Chief Complaint Patient presents with ??? Nasal Congestion couple days Nasal Congestion This is a new problem. Episode onset: 2-3 days ago. The problem is unchanged. There has been no fever. Associated symptoms include congestion and sneezing. Pertinent negatives include no chills, coughing, diaphoresis, ear pain (ear fullness), headaches, hoarse voice, neck pain, shortness of breath,sinus pressure, sore throat or swollen glands. Treatments tried: dayquil, lex seltzer. The treatment provided no relief. Review of Systems Constitutional: Negative for chills, diaphoresis, fatigue and fever. HENT: Positive for congestion, postnasal drip, rhinorrhea and sneezing. Negative for ear discharge,ear pain (ear fullness), hoarse voice, sinus pain, sinus pressure and sore throat. Respiratory: Negative for cough and shortness of breath. Gastrointestinal: Negative for abdominal pain, diarrhea, nausea and vomiting. Musculoskeletal: Negative for myalgias, neck pain and neck stiffness. Neurological: Negative for headaches. Patient Active Problem List Diagnosis Date Noted ??? 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 Diarrhea 12/26/2017 ??? 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 ASD (atrial septal defect) 11/19/2017 ??? Anemia 11/19/2017 ??? ASCUS of cervix with negative high risk HPV 04/25/2017 ??? Precordial pain 04/22/2017 ??? Status post exploratory laparotomy 11/07/2016 ??? 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 Migraine without aura 09/13/2014 ??? Normal pelvic exam 03/08/2014 ??? Overactive child 06/15/2013 ??? Back pain 06/18/2012 ??? Thyroid mass 06/18/2012 ??? Acute pancreatitis 05/27/2011 ??? Allergic rhinitis 02/27/2010 ??? Cholangitis 12/11/2006 Past Medical History: Diagnosis Date ??? Bile [...] ??? COLONOSCOPY 01/12/2018 Dr. Aaron Rocha, with [facility]. Normal colon ??? UPPER GASTROINTESTINAL ENDOSCOPY 12/04/2017 at , Dr. Aaron Rocha Outpatient Prescriptions Marked as Taking for the 05/01/18 encounter (Office Visit) with Oma Palomo ARNP Medication Sig Dispense Refill ??? aspirin 81 mg Oral Tablet, Delayed Release (E.C.) Take 1 Tab by mouth daily. 30 Tab 11 ??? cyanocobalamin (VITAMIN B-12) 500 mcg Oral Tablet Take 1 Tab by mouth once a week. ??? escitalopram oxalate (LEXAPRO) 20 mg Oral Tablet Take 1 Tab by mouth daily. 30 Tab 2 ??? ferrous sulfate 325 mg (65 mg iron) Oral Tablet Take 1 Tab by mouth daily. ??? PIRMELLA 0.5/0.75/1 mg- 35 mcg Oral Tablet TAKE ONE TABLET BY MOUTH DAILY 28 Tab 10 Allergies Allergen Reactions ??? Latex Rash ??? Latex, Natural Rubber Rash ??? Morphine Nausea And Vomiting ??? Metronidazole Rash Social History Substance Use Topics ??? Smoking status: Former Smoker Packs/day: 0.50 Years: 0.20 Quit date: 04/21/1994 ??? Smokeless tobacco: Never Used ??? Alcohol use No Family History Problem Relation Age of [...] Leigha huddleston, (sp ?), causes head aneurysms. Vitals: 05/01/18 1425 BP: 114/74 BP Location: Left arm Patient Position: Sitting Pulse: 85 Resp: 16 Temp: 98.1 ??F (36.7 ??C) TempSrc: Oral SpO2: 98% Weight: 142 lb 9.6 oz (64.7 kg) Height: 5' 6.72 (1.695 m) Physical Exam Constitutional: She appears well-developed and well-nourished. No distress. HENT: Head: Normocephalic and atraumatic. Right Ear: External ear normal. Tympanic membrane is bulging. Tympanic membrane is not injected andnot erythematous. Left Ear: External ear normal. Tympanic membrane is bulging. Tympanic membrane is not injected and not erythematous. Nose: Mucosal edema and rhinorrhea present. Right sinus exhibits no maxillary sinus tenderness and no frontal sinus tenderness. Left sinus exhibits no maxillary sinus tenderness and no frontal sinus tenderness. Mouth/Throat: Uvula is midline, oropharynx is clear and moist and mucous membranes are normal. Neck: Normal range of motion. Neck supple. Cardiovascular: Normal rate, regular rhythm and normal heart sounds. Pulmonary/Chest: Effort normal. No respiratory distress. She has no wheezes. She has no rales. Lymphadenopathy: She has no cervical adenopathy. Skin: She is not diaphoretic. No results found for this visit on 05/01/18. [place] was seen today for nasal congestion. Diagnoses and all orders for this visit: Acute rhinitis - loratadine (CLARITIN) 10 mg Oral Tablet; Take 1 Tab by mouth daily. - fluticasone (FLONASE) 50 mcg/actuation Nasl Walker, Suspension; 1 Walker by Nasal route daily for 14 days. I explained to the patient that we would treat this as a viral or allergy driven rhinitis. I also explained that treatment of rhinitis include symptom management. I prescribed loratadine and Flonase to help manage her sneezing, nasal drainage, and ear congestion. I instructed her to follow up with her PCP in 10 days if her symptoms persist or sooner if they worsen. She stated she understood my instructions and agreed to the treatment plan. Given instructions on conservative care for this condition and signs and symptoms to follow-up on immediately. Return for Follow up with your PCP if needed. Education provided regarding the care plan and instructions listed on the After Visit Summary [AVS]for today's visit. Full understanding of the care plan and instructions given on the AVS for today's visit was verbalized. OSMIN Stephenson documented in this encounter Miscellaneous Notes * Patient Instructions - Oma Palomo ARNP - 05/01/2018 3:07 PM EST Images from the original note were not included. Patient Education Nonallergic Rhinitis Nonallergic rhinitis is a condition that causes symptoms that affect the nose, such as a runny noseand a stuffed-up nose (nasal congestion) that can make it hard to breathe through the nose. This condition is different from having an allergy (allergic rhinitis). Allergic rhinitis occurs when the body's defense system (immune system) reacts to a substance that you are allergic to (allergen), suchas pollen, pet dander, mold, or dust. Nonallergic rhinitis has many similar symptoms, but it is notcaused by allergens. Nonallergic rhinitis can be a short-term or long-term problem. What are the causes? This condition can be caused by many different things. Some common types of nonallergic rhinitis include: Infectious rhinitis ?? This is usually due to an infection in the upper respiratory tract. Vasomotor rhinitis ?? This is the most common type of long-term nonallergic rhinitis. ?? It is caused by too much blood flow through the nose, which makes the tissue inside of the nose swell. ?? Symptoms are often triggered by strong odors, cold air, stress, drinking alcohol, cigarette smoke, or changes in the weather. Occupational rhinitis ?? This type is caused by triggers in the workplace, such as chemicals, dusts, animal dander, or air pollution. Hormonal rhinitis ?? This type occurs in women as a result of an increase in the female hormone estrogen. ?? It may occur during , puberty, and menstrual cycles. ?? Symptoms improve when estrogen levels drop. Drug-induced rhinitis Several drugs can cause nonallergic rhinitis, including: ?? Medicines that are used to treat high blood pressure, heart disease, and Parkinson disease. ?? Aspirin and NSAIDs. ?? Jzou-pgo-oqvhwyb nasal decongestant sprays. These can cause a type of nonallergic rhinitis (rhinitis medicamentosa) when they are used for more than a few days. Nonallergic rhinitis with eosinophilia syndrome (NARES) ?? This type is caused by having too much of a certain type of white blood cell (eosinophil). Nonallergic rhinitis can also be caused by a reaction to eating hot or spicy foods. This does not usually cause long-term symptoms. In some cases, the cause of nonallergic rhinitis is not known. What increases the risk? You are more likely to develop this condition if: ?? You are 30-60 years of age. ?? You are a woman. Women are twice as likely to have this condition. What are the signs or symptoms? Common symptoms of this condition include: ?? Nasal congestion. ?? Runny nose. ?? The feeling of mucus going down the back of the throat (postnasal drip). ?? Trouble sleeping at night and daytime sleepiness. Less common symptoms include: ?? Sneezing. ?? Coughing. ?? Itchy nose. ?? Bloodshot eyes. How is this diagnosed? This condition may be diagnosed based on: ?? Your symptoms and medical history. ?? A physical exam. ?? Allergy testing to rule out allergic rhinitis. You may have skin tests or blood tests. In some cases, the health care provider may take a swab of nasal secretions to look for an increased number of eosinophils. This would be done to confirm a diagnosis of NARES. How is this treated? Treatment for this condition depends on the cause. No single treatment works for everyone. Work with your health care provider to find the best treatment for you. Treatment may include: ?? Avoiding the things that trigger your symptoms. ?? Using medicines to relieve congestion, such as: ?? Steroid nasal spray. There are many types. You may need to try a few to find out which one worksbest. ?? Decongestant medicine. This may be an oral medicine or a nasal spray. These medicines are only used for a short time. ?? Using medicines to relieve a runny nose. These may include antihistamine medicines or anticholinergic nasal sprays. Surgery to remove tissue from inside the nose may be needed in severe cases if the condition has not improved after 6-12 months of medical treatment. Follow these instructions at home: ?? Take or use coeb-hog-wiksubf and prescription medicines only as told by your health care provider. Do not stop using your medicine even if you start to feel better. ?? Use salt-water (saline) rinses or other solutions (nasal washes or irrigations) to wash or rinseout the inside of your nose as told by your health care provider. ?? Do not take NSAIDs or medicines that contain aspirin if they make your symptoms worse. ?? Do not drink alcohol if it makes your symptoms worse. ?? Do not use any tobacco products, such as cigarettes, chewing tobacco, and e- cigarettes. If you need help quitting, ask your health care provider. ?? Avoid secondhand smoke. ?? Get some exercise every day. Exercise may help reduce symptoms of nonallergic rhinitis for some people. Ask your health care provider how much exercise and what types of exercise are safe for you. ?? Sleep with the head of your bed raised (elevated). This may reduce nighttime nasal congestion. ?? Keep all follow-up visits as told by your health care provider. This is important. Contact a health care provider if: ?? You have a fever. ?? Your symptoms are getting worse at home. ?? Your symptoms are not responding to medicine. ?? You develop new symptoms, especially a headache or nosebleed. This information is not intended to replace advice given to you by your health care provider. Make sure you discuss any questions you have with your health care provider. Document Released: 07/29/2016 Document Revised: 09/12/2016 Document Reviewed: 06/27/2016 [employer] Patient Education ?? 2018 [employer] Keep yourself hydrated with plenty of fluids You can take Claritin once a day for the next two weeks and use Flonase nasal spray daily for the next two weeks to help relieve yours symptoms. Follow up with your primary care provider if your symptoms persist with treatmetn or sooner if theyworsen documented in this encounter Plan of Treatment Upcoming Encounters Date Type Department Care Team (Late st Contact Info) Description 04/24/2024 10:45 AM EST Clinical Support [facility] [address] [place] [address] documented as of this encounter Goals Goal Patient Goal Type Associated Problems Recent Progress Patient-Stated? Author Maintain a healthy diet, exercise regularly and maintain an ideal body weight General No Thea Rubio MD Stay Tobacco Free Lifestyle No Thea Rubio MD documented as of this encounter Visit Diagnoses Diagnosis Acute rhinitis- Primary Acute nasopharyngitis (common cold) documented in this encounter Additional Health Concerns Assessment Noted Time PHQ-9 Depression Total Score: 2 10/07/19 18 8:00 AM EDT PHQ-2 Depression Total Score: 2 10/07/19 18 8:00 AM EDT documented as of this encounter Care Teams Director Search Relationship Specialty Start Date End Date Thea Rubio MD PCP - General Family Medicine 09/13/14 07/16/22 documented as of this encounter
--- OUTSIDE RECORDS SUMMARY | 2024-03-14 18:19 | XMS_ITS | Encounter Summary ---
Author Organization [place] [address] Care Team Providers Care Appraiser Name Role Phone Thea Rubio MD Primary Care Provider +1- [phone] Reason for Visit * Reason Comments Medication Refill Encounter Details Date Type Department Care Team (Late st Contact Info) Description 10/25/2018 [facility] [address] [place] [address] hTea Rubio MD [address] [place], [place] [id number] Medication Refill Social History Tobacco Use Types [...] TABLET BY MOUTH DAILY 90 Tab 1 10/25/2018 05/08/2019 documented in this encounter Plan of Treatment Upcoming Encounters Date Type Department Care Team (Late st Contact Info) Description 04/24/2024 10:45 AM EST Clinical Support [facility] [address] [place] [address] documented as of this encounter [...] Tablet TAKE ONE TABLET BY MOUTH DAILY Reorder 09/20/2018 10/25/2018 documented as of this encounter Additional Health Concerns Assessment Noted Time PHQ-9 Depression Total Score: 2 10/07/19 18 8:00 AM EDT PHQ-2 Depression Total Score: 2 10/07/19 18 8:00 AM EDT documented as of this encounter Care Teams Appraiser Relationship Specialty Start Date End Date Thea Rubio MD PCP - General Family Medicine 09/13/14 07/16/22 documented as of this encounter
--- OUTSIDE RECORDS SUMMARY | 2024-03-14 18:19 | XMS_ITS | Encounter Summary ---
Author Organization [place] [address] Care Team Providers Care Commercial Relief Driver Name Role Phone Thea Rubio MD Primary Care Provider +1- [phone] Reason for Visit * Reason Onset Date Comments Other 08/22/2018 Encounter Details Date Type Department Care Team (Late st Contact Info) Description 08/22/2018 Refill [facility] [address] [place] [address] Migue Anne MD [address] [place] [address] Other Social History Tobacco Use Types Packs/Day [...] encounter Miscellaneous Notes * Telephone Encounter - Aliyah Steele RMA - 09/02/2018 10:02 AM EDT On 08-26-18 amlodipine 2.5mg one a day script was sent to [facility] electronically for #30 with 1 refill * Telephone Encounter - Migue Anne MD - 09/01/2018 7:01 PM EDT Ok to renew * Telephone Encounter - Heather Holden LPN - 08/26/2018 8:09 AM EDT Patient return call stated she was out of medication and her refill had not been approved. Scheduled appointment for 09/21/18 at 4:00. Refill for 30 days phoned in * Telephone Encounter - Heather Holden LPN - 08/24/2018 8:43 AM EDT Refill request was received for Amlodipine 2.5 mg. This medication is not noted on med list. Was prescribed on 05/25/18 in hospital. May prescription be refilled? Please advise documented in this encounter Plan of Treatment Upcoming Encounters Date Type Department Care Team (Late st Contact Info) Description 04/24/2024 10:45 AM EST Clinical Support [facility] [address] [place] [address] documented as of this encounter [...] documented as of this encounter Care Teams Commercial Relief Driver Relationship Specialty Start Date End Date Thea Rubio MD PCP - General Family Medicine 09/13/14 07/16/22 documented as of this encounter
--- OUTSIDE RECORDS SUMMARY | 2024-03-14 18:19 | XMS_ITS | Encounter Summary ---
Author Organization [place] [address] Care Team Providers Care Insole Rounder Name Role Phone Thea Rubio MD Primary Care Provider +1- [phone] Reason for Visit * Reason Comments Medication Refill Encounter Details Date Type Department Care Team (Late st Contact Info) Description 09/20/2018 Refill [facility] [address] [place] [address] Thea Rubio MD [address] [place], [place] [id number] Medication Refill Social History Tobacco Use Types [...] ONE TABLET BY MOUTH DAILY 30 Tab 09/20/2018 10/25/2018 documented in this encounter Plan of Treatment Upcoming Encounters Date Type Department Care Team (Late st Contact Info) Description 04/24/2024 10:45 AM EST Clinical Support [facility] [address] [place] [address] documented as of this encounter [...] TAKE ONE TABLET BY MOUTH DAILY Reorder 06/15/2018 09/20/2018 documented as of this encounter Additional Health Concerns Assessment Noted Time PHQ-9 Depression Total Score: 2 10/07/19 18 8:00 AM EDT PHQ-2 Depression Total Score: 2 10/07/19 18 8:00 AM EDT documented as of this encounter Care Teams Insole Rounder Relationship Specialty Start Date End Date Thea Rubio MD PCP - General Family Medicine 09/13/14 07/16/22 documented as of this encounter
--- OUTSIDE RECORDS SUMMARY | 2024-03-14 18:19 | XMS_ITS | Encounter Summary ---
Author Organization [place] [address] Care Team Providers Care Ocean Export Agent Name Role Phone Thea Rubio MD Primary Care Provider +1- [phone] Reason for Visit * Reason Comments Contraception depo shot Encounter Details Date Type Department Care Team (Latest Contact Info) Description 05/29/2018 3:10 PM EST Clinical Support [facility] [address] [place] [address] Breezy Rubio MA Encounter for initial prescription of injectable contraceptive (Primary Dx) Social History Tobacco Use Types [...] 04/24/2024 10:45 AM EST Clinical Support [facility] [address] [place] [address] documented as of this encounter Goals Goal Patient Goal Type Associated Problems Recent Progress Patient-Stated? Author Maintain a healthy diet, exercise regularly and maintain an ideal body weight General No Thea Rubio MD Stay Tobacco Free Lifestyle No Thea Rubio MD documented as of this encounter Visit Diagnoses Diagnosis Encounter for initial prescription of injectable contraceptive- Primary General counseling for initiation of other contraceptive measures documented in this encounter Administered Medications Inactive Administered Medications - up to 1 most recent administrations Medication Order MAR Action Action Date Dose Rate Site medroxyPROGESTERone (DEPO-PROVERA) injection 150 mg 150 mg, Intramuscular, ONCE, 1 dose, On Fri05/29/18 at 1530, Dx: 1. Encounter for initial prescription of injectable contraceptiveIndications:Encou nter for initial prescription of injectable contraceptive Given 05/29/2018 3:21 PM EST 150 mg Left Arm documented in this encounter Additional Health Concerns Assessment Noted Time PHQ-9 Depression Total Score: 2 10/07/19 18 8:00 AM EDT PHQ-2 Depression Total Score: 2 10/07/19 18 8:00 AM EDT documented as of this encounter Care Teams Ocean Export Agent Relationship Specialty Start Date End Date Thea Rubio MD PCP - General Family Medicine 09/13/14 07/16/22 documented as of this encounter
--- OUTSIDE RECORDS SUMMARY | 2024-03-14 18:19 | XMS_ITS | Encounter Summary ---
Author Organization [facility] [place] [address] Care Team Providers Care Candy Roller Name Role Phone Thea Rubio MD Primary Care Provider [phone] Encounter Details Date Type Department Care Team (Latest Contact Info) Description 07/16/2018 3:45 PM EDT - 07/16/2018 11:59 PM EDT Hospital Encounter [facility] [address], [place] [id number] Cervical segment dysfunction; Somatic dysfunction of lumbar region Discharge Disposition: Home or Self Care Social [...] Clinical Support [facility] [address] [place] [address] documented as of this encounter Goals Goal Patient Goal Type Associated Problems Recent Progress Patient-Stated? Author Maintain a healthy diet, exercise regularly and maintain an ideal body weight General No Thea Rubio MD Stay Tobacco Free Lifestyle No TchengThea MD documented as of this encounter Procedures Procedure Name Priority Date/Time Associated Diagnosis Comments XR LUMBAR SPINE AP AND LATERAL Routine 07/16/2018 4:04 PM EDT Somatic dysfunction of lumbar region XR CERVICAL SPINE AP LATERAL ODONTOID AND OBLIQUE Routine 07/16/2018 4:04 PM EDT Cervical segment dysfunction documented in this encounter Results * XR LUMBAR SPINE AP AND LATERAL (07/16/2018 4:04 PM EDT) Anatomical Region Laterality Modality L-spine Radiographic Kristi ging 07/16/2018 4:04 PM EDT Impressions 07/16/2018 4:31 PM EDT No acute abnormality of the lumbar spine. - - Narrative 07/16/2018 4:31 PM EDT XR LUMBAR SPINE AP AND LATERAL, ??07/16/2018 4:04 PM CLINICAL HISTORY: ??M99.03-Segmental and somatic dysfunction of lumbar [id number] COMPARISON: ??06/13/2012. PROCEDURE COMMENTS: 3 views lumbar spine per protocol. FINDINGS: ?? There is normal alignment of the lumbar spine. The vertebral body heights and intervertebral disc space heights are normal. There are no pars defects. The sacroiliac joints are normal. The pedicles are intact. Procedure Note Melina Lambert MD - 07/16/2018 XR LUMBAR SPINE AP AND LATERAL, 07/16/2018 4:04 PM CLINICAL HISTORY: M99.03-Segmental and somatic dysfunction of lumbar [id number] COMPARISON: 06/13/2012. PROCEDURE COMMENTS: 3 views lumbar spine per protocol. FINDINGS: There is normal alignment of the lumbar spine. The vertebral body heightsand intervertebral disc space heights are normal. There are no pars defects.The sacroiliac joints are normal. The pedicles are intact. IMPRESSION: No acute abnormality of the lumbar spine. - - Munira Zuniga DC IMG DIAGNOSTIC IMAGING ORDERABLES Final Result * XR CERVICAL SPINE AP LATERAL ODONTOID AND OBLIQUE (07/16/2018 4:04 PM EDT) Anatomical Region Laterality Modality C-spine Radiographic Kristi ging 07/16/2018 4:04 PM EDT Impressions 07/16/2018 4:48 PM EDT No acute bony abnormality of the cervical spine. - - Narrative 07/16/2018 4:48 PM EDT C-SPINE SERIES, ??07/16/2018 4:04 PM CLINICAL HISTORY: ??M99.01-Segmental and somatic dysfunction of cervical [id number] COMPARISON: ??Cervical spine images from June 23, 2015 PROCEDURE COMMENTS: 5 views of the cervical spine, including PA, lateral, odontoid, and bilateral oblique positioning. FINDINGS: ?? No fracture or evidence of traumatic malalignment. Soft tissues unremarkable. Minimal degenerative changes are present with some mild endplate and facet irregularities. The vertebral body height and disc height is overall well-maintained. Appearance grossly stable compared to June 2015. Oblique imaging unremarkable. Procedure Note Abdifatah Aguilera MD - 07/16/2018 C-SPINE SERIES, 07/16/2018 4:04 PM CLINICAL HISTORY: M99.01-Segmental and somatic dysfunction of cervical [id number]-[id number] COMPARISON: Cervical spine images from June 23, 2015 PROCEDURE COMMENTS: 5 views of the cervical spine, including PA,lateral, odontoid, and bilateral oblique positioning. FINDINGS: No fracture or evidence of traumatic malalignment. Soft tissuesunremarkable. Minimal degenerative changes are present with some mild endplate andfacet irregularities. The vertebral body height and disc height is overall well-maintained. Appearance grossly stable compared to June 2015. Oblique imaging unremarkable. IMPRESSION: No acute bony abnormality of the cervical spine. - - Munira Zuniga DC IMG DIAGNOSTIC IMAGING ORDERABLES Final Result documented in this encounter Visit Diagnoses Diagnosis Cervical segment dysfunction Nonallopathic lesion of cervical region, not elsewhere classified Somatic dysfunction of lumbar region Nonallopathic lesion of lumbar region, not elsewhere classified documented in this encounter Additional Health Concerns Assessment Noted Time PHQ-9 Depression Total Score: 2 10/07/19 18 8:00 AM EDT PHQ-2 Depression Total Score: 2 10/07/19 18 8:00 AM EDT documented as of this encounter Care Teams Candy Roller Relationship Specialty Start Date End Date Thea Rubio MD PCP - General Family Medicine 09/13/14 07/16/22 documented as of this encounter
--- OUTSIDE RECORDS SUMMARY | 2024-03-14 18:19 | XMS_ITS | Encounter Summary ---
Author Organization [place] [address] Care Team Providers Care Manager Mortgage Name Role Phone Thea Rubio MD Primary Care Provider [phone]- [phone] Reason for Visit * Reason Comments Medication Refill Encounter Details Date Type Department Care Team (Late st Contact Info) Description 07/18/2018 Refill [facility] [address] [place] [address] Myrtle Vincent APRN Medication Refill Social History Tobacco Use Types [...] MOUTH DAILY 30 Tab 10 07/20/2018 07/12/2019 documented in this encounter Plan of Treatment Upcoming Encounters Date Type Department Care Team (Late st Contact Info) Description 04/24/2024 10:45 AM EST Clinical Support [facility] [address] [place] [address] documented as of this encounter Goals Goal [...] septal defect),H/O Amplatzer atrial septal defect closure Take 1 Tab by mouth daily. Reorder 07/18/2017 07/18/2018 documented as of this encounter Additional Health Concerns Assessment Noted Time PHQ-9 Depression Total Score: 2 10/07/19 18 8:00 AM EDT PHQ-2 Depression Total Score: 2 10/07/19 18 8:00 AM EDT documented as of this encounter Care Teams Manager Mortgage Relationship Specialty Start Date End Date Thea Rubio MD PCP - General Family Medicine 09/13/14 07/16/22 documented as of this encounter
--- OUTSIDE RECORDS SUMMARY | 2024-03-14 18:19 | XMS_ITS | Encounter Summary ---
Author Organization [place] [address] Care Team Providers Care Commanding Officer Homicide Squad Name Role Phone Thea Rubio MD Primary Care Provider [phone]- [phone] Reason for Visit * Auth/Cert/Inpt Specialty Diagnoses / Procedures Referred By Contac t Referred To Contact Diagnoses Chest pain due to myocardial ischemia, unspecified ischemic chest pain type Chest pain due to myocardial ischemia, unspecified ischemic chest pain type [I25.9] Procedures W[place] CATH PLMT L HRT & ARTS W/NJX & ANGIO IMG S&I CORONARY ANGIOGRAM / CARDIAC CATHETERIZATION Referral ID Status Reason Start Date Expiration Date Visits Re quested Visits Authorized [id number] 1 1 Encounter Details Date Type Department Care Team (Latest Contact Info) Description 05/25/2018 5:56 AM EST - 05/25/2018 11:25 AM EST Hospital Encounter EDG CARD CATH REC [facility] [place] [address] Migue Anne MD [address] [place] [address] Chest pain due to myocardial ischemia, unspecified ischemic chest pain type Discharge Disposition: Home or Self Care Social [...] Sign Reading Time Taken Comments Blood Pressure 125/75 05/25/2018 10:00 AM EST Pulse 69 05/25/2018 10:00 AM EST Temperature 36.6 ??C (97.9 ??F) 05/25/2018 6:27 AM ES T Respiratory Rate 15 05/25/2018 10:00 AM EST Oxygen Saturation 98% 05/25/2018 10:00 AM EST Inhaled Oxygen Concentration - - Weight 61.4 kg (135 lb 5 oz) 05/25/2018 6:11 AM EST Height 166.4 cm (5' 5.5 ) 05/25/2018 6:11 AM EST Body Mass Index 22.17 05/25/2018 6:11 AM EST documented in this encounter Discharge Instructions * Discharge Instructions* Za Ibarra, IVETTE - 05/25/2018 9:33 AM EST Best wishes are extended to you on behalf of [facility] as you are discharged. Because we are most concerned with your health, we suggest you carefully read and take an active role in your overall health and follow these instructions. IF YOU ARE DISCHARGED THE DAY OF YOUR PROCEDURE: 1. A responsible adult, 18 years or older must be in attendance until the next morning. 2. Return to your usual diet including, low fat, no added salt. 3. Rest quietly today with the leg used for the procedure kept straight. Limit the use of stairs. Do not drive or operate any machinery until the next morning. 4. Do NOT make any legal or important decisions for the next 24 hours. 5. Do not drink alcoholic beverages or take sleeping pills for 24 hours unless otherwise directed. 6. Leave the bandage in place over the puncture site until next day, when you remove the bandage, shower, and gently cleanse leg with soap and water. A Band- Aid may be placed over the area if desired. AFTER THE FIRST 24 HOURS FOLLOWING THE PROCEDURE: 1. You may climb stairs. 2. You may shower, wash gently in your groin area. You may NOT take a bath, swim, or use hot tubs for 5 days following your procedure. 3. You may NOT do strenuous exercise for five days, including golf, bowling, tennis, jogging, sexual relations, etc., unless otherwise instructed by your doctor. 4. You may NOT do heavy lifting, object heavier than 10 pounds, for five days, unless otherwise instructed by your doctor. AFTER THE FIRST 48HOURS FOLLOWING THE PROCEDURE: 1. You may drive a car. You may return to your normal activities as per MD You may return to work on 05/28/2018 Do NOT stop taking ASPIRIN for any reason without first discussing with your physician, due to the risk of heart attack and . WHAT TO WATCH FOR AFTER GOING HOME: 1. You may have some groin discoloration and a small lump, at the puncture site this will graduallygo away. 2. There will be slight pain at the puncture site when you first begin to walk and move about. 3. You may have numbness at the puncture site; this should go away within 4-6 hours. WHAT TO BE CONCERNED ABOUT: 1. Excessive pain in the area around puncture site, in the thigh or calf. 2. Increase in swelling around puncture site or thigh. 3. Loss of color, extreme coldness or numbness of legs or feet. 4. Sign of infection- fever, chills, redness at puncture site. 5. Bleeding from the puncture site - if this happens, immediately lie flat and apply pressure to the bleeding site with your fingers and have someone call 911 to transport you to your local EmergencyRoom. IF ANY OF THE ABOVE OCCURS, GO IMMEDIATELY TO THE HOSPITAL EMERGENCY ROOM. PAIN ASSESSMENT Location: NA Condition: Dressing dry and intact Current Pain Intensity: NA Pain Managem IF PAIN INTENSIFIES OR PAIN IS UNRELIEVED WITH MEDICATIONS ORDERED, CALL YOUR PHYSICIAN. MEDICATIONS: *Contact your physician before resuming any medication from home not listed in the discharge medication instruction sheet. PRESCRIPTIONS: Sent electronically to pharmacy FOLLOW-UP TO DOCTOR: As scheduled ADDITIONAL INSTRUCTIONS: * See your physician regularly. * HEART FAILURE: Call your physician if you experience any weight gain of 4 lbs in 2 days, chest discomfort, swelling of feet/ankles, frequent dry hacking cough especially when lying down, dizziness,fainting, passing out, difficulty breathing, leg cramping, decrease in activity tolerance, problemsrelated to current illness/procedure or if symptoms persist or worsen. * Stay active, lower your stress level and monitor your blood pressure. Other Instructions: I HAVE RECEIVED AND UNDERSTAND THE ABOVE INSTRUCTIONS. Please bring this paper with you when you return to your physician. * Attachments The following attachments cannot be sent through Care Everywhere. * Amlodipine tablets (Bolivian) documented in this encounter Ordered Prescriptions Prescription Sig Dispense Quantity Refills Last Filled Start Date End Date amLODIPine (NORVASC) 2.5 mg Oral Tablet Take 1 Tab by mouth daily. 30 Tab 2 05/25/2018 08/26/2018 documented in this encounter Discharge Disposition Disposition Code Departure Means Destination Home or Self Shelter documented in this encounter H&P Notes * Migue Anne MD - 05/25/2018 8:11 AM EST PHYSICIAN IMMEDIATE PRE-PROCEDURE UPDATE H&P and SEDATION ASSESSMENT Risks, benefits, potential complications and alternatives have been discussed with patient and/or patient's legal authorized physician relations representative. HISTORY AND PHYSICAL H&P is less than 30 days old and reviewed. The patient was examined and NO change has occurred in the patient's condition since the H&P was completed. SEDATION ASSESSMENT The patient's immediate pre-procedure physical assessment indicates the patient is a suitable candidate for and agrees to the planned sedation: Moderate sedation Patient has been NPO for a sufficient period of time to allow for gastric emptying. Date of last liquid consumption: 05/24/18 Date of last solid food consumption: 05/24/18 Comment: Patient has no previous adverse experience to anesthesia. Comment: Vital Signs: Temp: 97.9 ??F (36.6 ??C) Pulse: 60 Resp: 16 BP: 129/81 SpO2: 100 % Comment: Patient's pain has been assessed and based on patient report consideration has been given as to howit might alter the patient's sedation plan. Comment: Patient's airway has been assessed and consideration has been given as to how it might alter the patient's response to sedation. Mallampati Score: II (soft palate, uvula, fauces visible) Cath PCI Bleeding Risk Score Fine Arts Model; <=25 mild, 26-65 mod, >65 high = : 40 Height: 5' 5.5 (166.4 cm) Weight: 135 lb 5 oz (61.4 kg) BMI (Calculated): 22.2 Comment: Allergies Allergen Reactions ??? Latex Rash ??? Latex, Natural Rubber Rash ??? Morphine Nausea And Vomiting ??? Metronidazole Rash Source Note - Tiny Ortega, BLOCK PILER - 05/07/2018 2:30 PM EST Chief Complaint Patient presents with ??? Follow-up 1 month ASD check HPI: Gardenia Childress returned to the office for chest pain. She has continued to have chest pain since prior to her ASD repair. Echo and coronary CT have been unremarkable. She has seen GI, with an unremarkable workup. States the chest pain has improved recently, but she continues to have it. Now it lasts a few minutes and describes it as sharp. Can occur with exertion or with rest. She gets short of breath with it. Denies syncope, edema, or palpitations. ROS: Denies: recent weight changes, palpitations, edema, orthopnea, dizziness, syncope, hematochezia Complains of: chest pain, shortness of breath Allergies Allergen Reactions ??? Latex Rash ??? Latex, Natural Rubber Rash ??? Morphine Nausea And Vomiting ??? Metronidazole Rash Current Outpatient Prescriptions: ??? aspirin 81 mg Oral Tablet, Delayed Release (E.C.), Take 1 Tab by mouth daily., Disp: 30 Tab, Rfl: 11 ??? cyanocobalamin (VITAMIN B-12) 500 mcg Oral Tablet, Take 1 Tab by mouth once a week., Disp: , Rfl: ??? escitalopram oxalate (LEXAPRO) 20 mg Oral Tablet, Take 1 Tab by mouth daily., Disp: 30 Tab, Rfl: 2 ??? ferrous sulfate 325 mg (65 mg iron) Oral Tablet, Take 1 Tab by mouth daily., Disp: , Rfl: ??? fluticasone (FLONASE) 50 mcg/actuation Nasl [place], Suspension, 1 [place] by Nasal route daily for14 days., Disp: 1 Bottle, Rfl: 0 ??? loratadine (CLARITIN) 10 mg Oral Tablet, Take 1 Tab by mouth daily., Disp: 14 Tab, Rfl: 0 ??? PIRMELLA 0.5/0.75/1 mg- 35 mcg Oral Tablet, TAKE ONE TABLET BY MOUTH DAILY, Disp: 28 Tab, Rfl: 10 History Smoking Status ??? Former Smoker ??? Packs/day: 0.50 ??? Years: 0.20 ??? Quit date: 04/21/1994 Smokeless Tobacco ??? Never Used History Alcohol Use No Vitals: Vitals: 05/07/18 1340 BP: 110/58 BP Location: Left arm Patient Position: Sitting Pulse: 72 Weight: 140 lb 9.6 oz (63.8 kg) Height: 5' 5 (1.651 m) Body mass index is 23.4 kg/m??. Wt Readings from Last 3 Encounters: 05/07/18 140 lb 9.6 oz (63.8 kg) 05/01/18 142 lb 9.6 oz (64.7 kg) 04/15/18 147 lb (66.7 kg) Physical Exam: GEN: Alert and oriented, no acute distress HEENT: NC, sclerae anicteric, OPP/M NECK: supple, no carotid bruits, no JVD LUNGS: CTA CHEST: NT HEART: RRR, no murmur, no gallop, no rubs ABD: soft, NT, positive bowel sounds EXT: no edema, +2 radial pulses NEURO: no obvious focal abnormalities Results: Lab Results Component Value Date HGB 13.4 04/15/2018 HCT 41.8 04/15/2018 PLT 347 04/15/2018 CHOLESTEROL 154 05/14/2017 TRIG 67 05/14/2017 HDL 68 05/14/2017 LDLCALC 73 05/14/2017 ALT 11 04/14/2018 AST 15 04/14/2018 NA 141 04/14/2018 K 4.0 04/14/2018 CREATININE 0.89 04/14/2018 BUN 8 04/14/2018 INR 1.06 07/04/2017 GLU 95 04/14/2018 Stress Echo 05/08:??9.8 METs negative ekg and echo. EF 60%. Mild RVD. ASD with left to right interatrial shunting. Mild TR. RVSP . ?? Cardiac CT 05/08: normal cors but proximal vessels not well visualized. No congenital defects noted ?? WAYNE 05/08:??EF 55%. Mild JEFFREY. 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 ?? Echo 07/06: EF 60-65%, ASD closure device without evidence of residual interatrial shunt Echo 01/06: EF 60%. Amplazter appears well seated in the interatrial septum without evidence of ??residual shunting ?? Assessment: ?? ASD - ASD closure 07/06 ?? Atypical Chest Pain? - echo and coronary CTA were unremarkable - GI workup was negative - D-dimer was negative Chronic Migraine ORTEGA's ?? H/o Biliary Atresia s/p Amber Procedure (hepatoportoenterostomy) as an ?? - cleared to take asa and Plavix - reports she did have a dilation procedure of a biliary duct about 10 years ago ?? 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 Plan: Cardiac cath due to recurrent chest pain without known cause. I discussed the procedure with the benefits and risks including but not limited to bleeding, infection, renal insufficiency, MA, stroke, and . The patient is willing the proceed. Return in about 3 months (around 08/05/2018). Call us with any questions or concerns prior to your next visit. documented in this encounter Nursing Notes * Za Ibarra RN - 05/25/2018 10:52 AM EST Written and verbal discharge instructions given to patient and patient's significant other. Verbalized understanding. documented in this encounter Plan of Treatment Upcoming Encounters Date Type Department Care Team (Late st Contact Info) Description 04/24/2024 10:45 AM EST Clinical Support [facility] [address] [place] [address] documented as of this encounter Goals Goal Patient Goal Type Associated Problems Recent Progress Patient-Stated? Author Maintain a healthy diet, exercise regularly and maintain an ideal body weight General No Thea Rubio MD Stay Tobacco Free Lifestyle No Thea Rubio MD documented as of this encounter Procedures Procedure Name Priority Date/Time Associated Diagnosis Comments SCANNED RHYTHM STRIPS 05/25/2018 11:07 AM EST LEFT HEART CATH Routine 05/25/2018 8:46 AM EST Chest pain due to myocardial ischemia, unspecified ischemic chest pain type LEFT VENTRICULOGRAM Routine 05/25/2018 8 :46 AM EST Chest pain due to myocardial ischemia, unspecified ischemic chest pain type CARDIAC PROCEDURE Routine 05/25/2018 8:4 6 AM EST Chest pain due to myocardial ischemia, unspecified ischemic chest pain type PHOTOGRAPH RETOUCHER HEMODYNAMIC WAVEFORMS Routine 05/25/2018 7:51 AM EST POCT URINE Routine 05/25/2018 7:42 AM EST documented in this encounter Results * SCANNED RHYTHM STRIPS (05/25/2018 11:07 AM EST) Anatomical Region Laterality Modality Other 05/25/2018 11:0 7 AM EST us Unknown Unknown IMG ECG ORDERABLES Final Result * CORONARY ANGIOGRAM (COR/LHC/LV GRAM, CARDIAC CATHETERIZATION), LEFT VENTRICULOGRAM, LEFT HEART CATH(05/25/2018 8:46 AM EST) Cath EF Estimated 60 % [facility] Narrative [facility] - 05/25/2018 8:46 AM EST Essentially normal epicardial coronary arteries Preserved LV function No findings to explain persistent chest pain Coronary Findings Diagnostic Dominance: Right Left Main: The vessel was visualized by angiography, is large and is angiographically normal. Left Anterior Descending: The vessel is large and is angiographically normal. Left Circumflex: The vessel is small and is angiographically normal. Right Coronary Artery: The vessel was visualized by angiography, is large and is angiographically normal. RCA is normal. Prominent right atrial branch noted Intervention No interventions have been documented. Left Ventricle The left ventricular size is normal. The left ventricular systolic function is normal. The patient's LV Systolic pressure is normal. The patient's LV End Diastolic pressure is normal. The ejection fraction is greater than 55% by visual estimate. There are no wall motion abnormalities in the left ventricle. Left Heart Pressures LVEDP /post-A wave : 15 mmHg Wall Motion All segments of the heart are normal. Migue Anne MD CARDIAC CATH ORDERABLES Final Result Performing Organization Address [facility] de Phone Number [facility] * PHOTOGRAPH RETOUCHER HEMODYNAMIC WAVEFORMS (05/25/2018 7:51 AM EST) 05/25/2018 7:51 AM EST Migue Anne MD CARDIAC CATH ORDERABLES Final Result Performing Organization Address [facility] de Phone Number [facility] [address] [place] [address] * POCT URINE (05/25/2018 7:42 AM EST) Preg Test, Ur NEG POS/NEG [facility] Lot Number [id number] [facility] Expiration Date 08/19/2019 [facility] SeriAl # [facility] Control Line Yes YES/NO [facility] 05/25/2018 7:42 AM EST Migue Anne MD POINT OF CARE TEST ORDE RABLES Final Result Performing Organization Address [facility] de Phone Number [facility] [address] [place] [address] documented in this encounter Visit Diagnoses Diagnosis Chest pain due to myocardial ischemia, unspecified ischemic chest pain type Chest pain due to myocardial ischemia, unspecified ischemic chest pain type documented in this encounter Administered Medications Inactive Administered Medications - up to 1 most recent administrations Medication Order MAR Action Action Date Dose Rate Site 0.9 % NaCl infusion Intravenous, at 150 mL/hr, CONTINUOUS, Starting on Fri05/24/18 at 1330, Until Fri05/25/18 at 1610, Start 2 hours prior to procedure at 150 mL/hr. If Sodium Bicarbonate drip to infuse, 0.9% Normal Saline to infuse at Keep Open Rate., Pre-op (Floor Meds) New Bag 05/25/2018 6:38 AM EST 1,000 mL 150 mL/hr 0.9 % NaCl infusion Intravenous, at 150 mL/hr, CONTINUOUS, Starting on Fri05/25/18 at 0900, Until Fri05/25/18 at 1059, If infusion complete, infuse 0.9% Normal Saline at KOR until sheath is removed., Post-op Rate/Dose Verify 05/25/2018 9:00 AM EST 150 mL/hr aspirin tablet 325 mg 325 mg, Oral, DAILY, First dose on 05/24/18 at 1330, Until Discontinued, Only give pre-procedure if patient did not take ordered aspirin at home. If patient allergic to aspirin, call physician., Pre-op (Floor Meds) Given 05/25/2018 6:38 AM EST 325 mg documented in this encounter Historical Medications * This list may reflect changes made after this encounter. medroxyprogestero ne acetate (DEPO-PROVERA IM) Inject into the muscle. Every three months 12/30/2019 added in this encounter Active and Recently Administered Medications Times are shown in EST. Scheduled Medication Order 05/23/2018 05/24/2018 05/25/2018 aspirin tablet 325 mg 325 mg, Oral, DAILY, First dose on 05/24/18 at 1330, Until Discontinued, Only give pre-procedure if patient did not take ordered aspirin at home. If patient allergic to aspirin, call physician., Pre-op (Floor Meds) 0638 (Given - Provid er: Za Ibarra RN)0900 (Canceled Entry - Provider: Za Ibarra RN) fentaNYL (SUBLIMAZE) injection 50 mcg 50 mcg, Intravenous, ONCE, 1 dose, On Fri05/25/18 at 0900, Give 5 minutes prior to sheath removal, Post-op 0900 (Due) Continuous Medication Order 05/23/2018 05/24/2018 05/25/2018 0.9 % NaCl infusion Intravenous, at 150 mL/hr, CONTINUOUS, Starting on 05/24/18 at 1330, Until Fri05/25/18 at 1610, Start 2 hours prior to procedure at 150 mL/hr. If Sodium Bicarbonate drip to infuse, 0.9% Normal Saline to infuse at Keep Open Rate., Pre-op (Floor Meds) 0638 (New Bag - Prov ider: Za Ibarra RN) 0.9 % NaCl infusion Intravenous, at 150 mL/hr, CONTINUOUS, Starting on Fri05/25/18 at 0900, Until Fri05/25/18 at 1059, If infusion complete, infuse 0.9% Normal Saline at KOR until sheath is removed., Post-op 0900 (Rate/Dose Veri fy - Provider: Za Ibarra RN)1052 (Stopped - Provider: Za Ibarra RN) PRN Medication Order 05/23/2018 05/24/2018 05/25/2018 acetaminophen (TYLENOL) tablet 650 mg 650 mg, Oral, EVERY 4 HOURS PRN, Starting on Fri05/25/18 at 0847, Until Fri05/25/18 at 1610, Pain, Maximum adult dose of acetaminophen is 4000 mg from all sources in 24 hours. , Post-op atropine injection 0.5 mg 0.5 mg, Intravenous, PRN, Starting on Fri05/25/18 at 0840, Until Fri05/25/18 at 1610, Symptomatic bradycardia, emergency treatment, Administer IV push for symptomatic bradycardia, may repeat every 3-5 minutes to total of 3 mg. dextrose 50 % solution 25 g 25 g, Intravenous, PRN, Starting on Fri05/25/18 at 0840, Until Fri05/25/18 at 1610, Low blood sugar, for emergency treatment of profound hypoglycemia, May repeat in 15 minutes. VESICANT EPINEPHrine injection 1 mg 1 mg, Intravenous, PRN, Starting on Fri05/25/18 at 0840, Until Fri05/25/18 at 1610, Ventricular fibrillation, Emergency order for V-FIB or Pulseless V-TACH, Emergency order for V-FIB or Pulseless V-TACH, Asystole, PEA. VESICANT fentaNYL (SUBLIMAZE) injection (CANCELED) PRN, Starting on Fri05/25/18 at 0813, Until Fri05/25/18 at 0846, Intra-procedure(Cath) 0813 (Given - Provid er: Heather Garcia RN)0816 (Given - Provider: Heather Garcia RN) lidocaine 20 mg/mL (2 %) injection (CANCELED) PRN, Starting on Fri05/25/18 at 0814, Until Fri05/25/18 at 0846, Intra-procedure(Cath) 0814 (Given - Provid er: Migue Anne MD)0822 (Given - Provider: Migue Anne MD) LORazepam (ATIVAN) tablet 1 mg 1 mg, Oral, EVERY 4 HOURS PRN, Starting on Fri05/25/18 at 0847, Until Fri05/25/18 at 1610, Anxiety, Restlessness, Post-op metoclopramide HCl (REGLAN) injection 10 mg 10 mg, Intravenous, EVERY 6 HOURS PRN, Starting on Fri05/25/18 at 0847, Until Fri05/25/18 at 1610, Nausea, Post-op midazolam (VERSED) injection (CANCELED) PRN, Starting on Fri05/25/18 at 0813, Until Fri05/25/18 at 0846, Intra-procedure(Cath) 0813 (Given - Provid er: Heather Garcia RN)08 (Given - Provider: Heather Garcia RN) documented in this encounter Orders Medications Ordered That Jair ht Not Have Been Administered Count Last Ordered Date First Ordered Date acetaminophen (TYLENOL) tablet 650 mg 1 07/2018 atropine injection 0.5 mg 1 05/25/2018 dextrose 50 % solution 25 g 1 05/25/2018 EPINEPHrine injection 1 mg 1 05/25/2018 fentaNYL (SUBLIMAZE) injection 1 05/25/2018 fentaNYL (SUBLIMAZE) injection 50 mcg 1 07/2018 lidocaine 20 mg/mL (2 %) injection 1 2018 LORazepam (ATIVAN) tablet 1 mg 1 05/25/2018 metoclopramide HCl (REGLAN) injection 10 mg 1 05/25/2018 midazolam (VERSED) injection 1 05/25/2018 Discharge Count Last Ordered Date First Orde red Date DISCHARGE PATIENT 1 05/25/2018 documented in this encounter Additional Health Concerns Assessment Noted Time PHQ-9 Depression Total Score: 2 10/07/19 18 8:00 AM EDT PHQ-2 Depression Total Score: 2 10/07/19 18 8:00 AM EDT documented as of this encounter Care Teams Commanding Officer Homicide Squad Relationship Specialty Start Date End Date Thea Rubio MD PCP - General Family Medicine 09/13/14 07/16/22 documented as of this encounter
--- OUTSIDE RECORDS SUMMARY | 2024-03-14 18:19 | XMS_ITS | Encounter Summary ---
Author [place] [address] Care Team Providers Care Ortho Assistant Name Role Phone Thea Rubio MD Primary Care Provider +1- [phone] Reason for Visit * Reason Onset Date Comments Results 04/15/2018 Encounter Details Date Type Department Care Team (Late st Contact Info) Description 04/15/2018 Telephone [facility]P [facility] [address] [place] [address] Tiny Ortega, ARTIFICIAL FOLIAGE ARRANGER [address] [place] [address] Results Social History Tobacco Use Types Packs/Day [...] encounter Miscellaneous Notes * Telephone Encounter - Romana Barnett RN - 04/15/2018 3:15 PM EST Spoke with pt * Telephone Encounter - Heather Holden LPN - 04/15/2018 3:02 PM EST Lab called with lab results for D Dimer <230. Result is in EPIC. documented in this encounter Plan of Treatment Upcoming Encounters Date Type Department Care Team (Late st Contact Info) Description 04/24/2024 10:45 AM EST Clinical Support [facility] [address] [place] [address] documented as of this encounter Goals Goal [...] documented as of this encounter Care Teams Ortho Assistant Relationship Specialty Start Date End Date Thea Rubio MD PCP - General Family Medicine 09/13/14 07/16/22 documented as of this encounter
--- OUTSIDE RECORDS SUMMARY | 2024-03-14 18:19 | XMS_ITS | Encounter Summary ---
Author Organization [place] [address] Care Team Providers Care Blasting Entryman Name Role Phone Thea Rubio MD Primary Care Provider +1- [phone] Reason for Visit * Reason Comments Follow-up 1 month ASD check * Consultation (Routine) - Closed Specialty Diagnoses / Procedures Referred By Contact Referred To Contact Nurse Practitioner / Cardiology Diagnoses Hospital follow up Procedures HOSPITAL PATIENT VISIT Thea Rubio MD Phone: tel: fax: Tiny Ortega, DIRECTOR INFORMATION SECURITY [address] [place] [address] Phone: tel: fax: Referral ID Status Reason Start Date Expiration Date Visits Re quested Visits Authorized [id number] Closed 11/19/2017 11/19/2018 1 99 Encounter Details Date Type Department Care Team (Late st Contact Info) Description 05/07/2018 2:30 PM EST Office Visit [facility] [address] [place] [address] Tiny Ortega, DIRECTOR INFORMATION SECURITY [address] [place] [address] ASD (atrial septal defect) (Primary Dx); Other chest pain Social History Tobacco Use Types [...] Sign Reading Time Taken Comments Blood Pressure 110/58 05/07/2018 1:40 PM EST Pulse 72 05/07/2018 1:40 PM EST Temperature - - Respiratory Rate - - Oxygen Saturation - - Inhaled Oxygen Concentration - - Weight 63.8 kg (140 lb 9.6 oz) 05/07/2018 1:40 P M EST Height 165.1 cm (5' 5 ) 05/07/2018 1:40 PM EST Body Mass Index 23.4 05/07/2018 1:40 PM EST documented in this encounter Progress Notes * Tiny Ortega, DIRECTOR INFORMATION SECURITY - 05/07/2018 2:30 PM EST Chief Complaint [...] Rfl: ??? fluticasone (FLONASE) 50 mcg/actuation Nasl [place], Suspension, 1 [place] by Nasal route daily for14 days., Disp: [...] Mild TR. RVSP 19. ?? Cardiac CT 05/08: normal cors but [...] not limited to bleeding, infection, renal insufficiency, PA, stroke, and . The patient is willing the proceed. Return in about 3 months (around 08/05/2018). Call us with any questions or concerns prior to your next visit. documented in this encounter Miscellaneous Notes * Patient Instructions - Magdalena Tello RMA - 05/07/2018 2:30 PM EST You may be contacted by mail or e-mail to participate in a patient satisfaction survey regarding your office visit today. We value your opinion and depend on your feedback to make improvements and provide you with the best possible experience while receiving high quality medical treatment. Your time in completing this survey is greatly appreciated. documented in this encounter Plan of Treatment Upcoming Encounters Date Type Department Care Team (Late st Contact Info) Description 04/24/2024 10:45 AM EST Clinical Support [facility] [address] [place] [address] documented as of this encounter Goals Goal Patient Goal Type Associated Problems Recent Progress Patient-Stated? Author Maintain a healthy diet, exercise regularly and maintain an ideal body weight General No Thea Rubio MD Stay Tobacco Free Lifestyle No Thea Rubio MD documented as of this encounter Results * (ABNORMAL) CBC (05/19/2018 3:07 PM EST) WBC 6.0 3.7 - 10.3 x10(3)/mcL 05/19/2018 3:34 PM EST [facility] RBC 4.42 3.90 - 5.20 x10(6)/mcL 05/19/2018 3:34 PM EST [facility] Hgb 12.6 11.2 - 15.7 g/dL 05/19/2018 3:34 PM EST [facility] Hct 38.4 34.0 - 45.0 % 05/19/2018 3:34 PM EST [facility] MCV 86.9 79.0 - 98.0 fL 05/19/2018 3:34 PM EST [facility] MCH 28.5 26.0 - 32.0 pg 05/19/2018 3:34 PM EST [facility] MCHC 32.8 30.7 - 35.5 g/dL 05/19/2018 3:34 PM EST [facility] RDW 13.5 <=14.9 % 05/19/2018 3:34 PM EST [facility] Platelet 461(H) 155 - 369 x10(3)/mcL 05/19/2018 3:34 PM EST [facility] MPV 9.2 8.8 - 12.5 fL 05/19/2018 3:34 PM EST [facility] Blood Venipuncture / Unknown 05/19/2018 3:07 PM EST 05/19/2018 3:11 PM EST us Tiny Ortega DIRECTOR INFORMATION SECURITY HEMATOLOGY ORDERABLES Antonia serrano Result [facility] [address] [facility] , [address] [place], [place] [id number] * BASIC METABOLIC PANEL (05/19/2018 3:07 PM EST) Sodium 140 136 - 145 mmol/L 05/19/2018 3:54 PM EST [facility] Potassium 3.9 3.5 - 5.0 mmol/L 05/19/2018 3:54 PM EST [facility] Chloride 104 98 - 107 mmol/L 05/19/2018 3:54 PM EST [facility] Total CO2 26 22 - 29 mmol/L 05/19/2018 3:54 PM EST [facility] Anion Gap 10 7 - 16 mmol/L 05/19/2018 3:54 PM EST [facility] Calcium 9.0 8.6 - 10.2 mg/dL 05/19/2018 3:54 PM EST [facility] Glucose Lvl 85 74 - 100 mg/dL 05/19/2018 3:54 PM EST [facility] BUN 9 6 - 20 mg/dL 05/19/2018 3:54 PM EST [facility] Creatinine 0.76 0.51 - 1.30 mg/dL 05/19/2018 3:54 PM EST [facility] GFR Afr Am 117 >=60 mL/min/1.7 3 m2 05/19/2018 3:54 PM EST [facility] GFR Non Afr Am 101 >=60 mL/min/1.7 3 m2 05/19/2018 3:54 PM EST [facility] Comment: This estimated GFR was calculated using [...] or muscle mass. Blood Venipuncture / Unknown 05/19/2018 3:07 PM EST 05/19/2018 3:11 PM EST us Tniy Ortega DIRECTOR INFORMATION SECURITY CHEMISTRY ORDERABLES Final Result [facility] , [place] [address] documented in this encounter Visit Diagnoses Diagnosis ASD (atrial septal defect)- Primary Ostium secundum type atrial septal defect Other chest pain documented in this encounter Discontinued Medications Medication Sig Discontinue Reason Start Date End Da te clindamycin (CLEOCIN) 2 % Vagl CreamIndications:Martin nerella vaginalis infection Place 1 Applicator vaginally nightly. Discontinued by another clinician 04/20/2018 05/07/2018 dicyclomine (BENTYL) 20 mg Oral Tablet Take 1 Tab by mouth every 6 hours as needed for Other (abdominal cramping) for up to 30 days. Discontinued by another clinician 04/14/2018 05/07/2018 naproxen (NAPROSYN) 500 mg Oral TabletIndications:Str ain of left trapezius muscle, initial encounter Take 1 Tab by mouth 2 times daily (with meals). Discontinued by another clinician 02/03/2018 05/07/2018 promethazine (PHENERGAN) 25 mg Oral Tablet Take 1 Tab by mouth 3 times daily as needed for Nausea for up to 30 days. Discontinued by another clinician 04/14/2018 05/07/2018 documented as of this encounter Additional Health Concerns Assessment Noted Time PHQ-9 Depression Total Score: 2 10/07/19 18 8:00 AM EDT PHQ-2 Depression Total Score: 2 10/07/19 18 8:00 AM EDT documented as of this encounter Care Teams Blasting Entryman Relationship Specialty Start Date End Date Thea Rubio MD PCP - General Family Medicine 09/13/14 07/16/22 documented as of this encounter
--- OUTSIDE RECORDS SUMMARY | 2024-03-14 18:19 | XMS_ITS | Encounter Summary ---
Author Organization [place] [address] Care Team Providers Care Marketing Clerk Name Role Phone Thea Rubio MD Primary Care Provider +1- [phone] Reason for Visit * Reason Comments Follow-up atrial septal defect * Consultation (Routine) - Closed Specialty Diagnoses / Procedures Referred By Contac t Referred To Contact Internal Medicine-Cardiovascular Disease / Cardiology Diagnoses 7 month follow up Procedures OFFICE VISIT Thea Rubio MD Phone: tel: fax: Migue Anne MD [address] [place] [address] Phone: tel: fax: Referral ID Status Reason Start Date Expiration Date Visits Re quested Visits Authorized [id number] Closed 08/11/2018 08/11/2019 99 99 Encounter Details Date Type Department Care Team (Late st Contact Info) Description 09/21/2018 4:00 PM EDT Office Visit [facility] [place] [facility] [address] [place] [id number] Migue Anne MD [address] [place] [address] ASD (atrial septal defect) (Primary Dx); H/O Amplatzer atrial septal defect closure; Chest discomfort; Other chest pain Social History Tobacco Use [...] Sign Reading Time Taken Comments Blood Pressure 110/68 09/21/2018 4:14 PM EDT Pulse 96 09/21/2018 4:14 PM EDT Temperature - - Respiratory Rate 20 09/21/2018 4:14 PM EDT Oxygen Saturation - - Inhaled Oxygen Concentration - - Weight 70.1 kg (154 lb 9.6 oz) 09/21/2018 4:14 P M EDT Height 165.1 cm (5' 5 ) 09/21/2018 4:14 PM EDT Body Mass Index 25.73 09/21/2018 4:14 PM EDT documented in this encounter Progress Notes * Migue Anne MD - 09/21/2018 4:00 PM EDT Cardiology Follow Up Visit Name: Gardenia Childress : 1980 Referring Physician Thea Rubio MD Reason for Follow-up Chest Brennan, ASD Chief Complaint: Chest pain HPI 38 y.o. female is seen for regarding chest pain and h/o ASD closure. She is feeling better since starting Amlodipine. States a little less sob when ambulating steps and less chest pain. Recently seenby Photo Mask Inspector and given a clean bill. Admits she has gained about 15 lbs of weight. ROS Denies: Change in vision, headache, fever, [...] by mouth daily. No current facility-administered medications for this visit. No current facility-administered medications for this visit. Allergies Allergen Reactions ??? Latex Rash ??? Latex, Natural Rubber Rash ??? Morphine Nausea And Vomiting ??? Metronidazole Rash Objective There were no vitals filed for this visit. Exam: GENERAL APPEARANCE: In no acute distress [...] No results found for this visit on 09/21/18. Labs Lab Results Component Value Date CHOLESTEROL 154 05/14/2017 CHOLESTEROL 151 04/22/2017 CHOLESTEROL 174 10/07/2015 HDL 68 05/14/2017 HDL 63 04/22/2017 HDL 50 10/07/2015 LDLCALC 73 05/14/2017 LDLCALC 74 04/22/2017 LDLCALC 110 (H) 10/07/2015 TRIG 67 05/14/2017 TRIG 72 04/22/2017 TRIG 71 10/07/2015 Lab Results Component Value Date INR 1.06 07/04/2017 Lab Results Component Value Date WBC 6.0 05/19/2018 WBC 7.4 04/15/2018 WBC 6.9 04/14/2018 HGB 12.6 05/19/2018 HGB 13.4 04/15/2018 HGB 12.4 04/14/2018 HCT 38.4 05/19/2018 HCT 41.8 04/15/2018 HCT 37.8 04/14/2018 MCV 86.9 05/19/2018 MCV 87.4 04/15/2018 MCV 85.1 04/14/2018 PLT 461 (H) 05/19/2018 PLT 347 04/15/2018 PLT 304 04/14/2018 No results found for: HGBA1C Lab Results Component Value Date NA 140 05/19/2018 NA 141 04/14/2018 NA 140 11/17/2017 K 3.9 05/19/2018 K 4.0 04/14/2018 K 3.5 11/17/2017 BUN 9 05/19/2018 BUN 8 04/14/2018 BUN 9 11/17/2017 CALCIUM 9.0 05/19/2018 CALCIUM 8.9 04/14/2018 CALCIUM 9.2 11/17/2017 CL 104 05/19/2018 CL 108 (H) 04/14/2018 CL 104 11/17/2017 CO2 26 05/19/2018 CO2 25 04/14/2018 CO2 24 11/17/2017 CREATININE 0.76 05/19/2018 CREATININE 0.89 04/14/2018 CREATININE 0.72 11/17/2017 GLU 85 05/19/2018 GLU 95 04/14/2018 GLU 92 11/17/2017 Lab Results Component Value Date ALT 11 04/14/2018 ALT 9 10/13/2017 ALT 11 05/14/2017 AST 15 04/14/2018 AST 14 10/13/2017 AST 15 05/14/2017 ALKPHOS 54 04/14/2018 ALKPHOS 53 10/13/2017 ALKPHOS 67 05/14/2017 Lab Results Component Value Date TSHREFLEX 2.240 05/14/2017 Stress Echo 05/08: 9.8 METs negative ekg [...] pain Assessment: Atypical Chest Pain ?? - recurrent issue of unclear etiology - empirically treating small vessel dz with some improvement ASD S/p Closure 07/06 - No associated cardiac abnormalities on Cardiac CT - s/p ASD closure 07/06 Chronic Migraine ORTEGA's ?? 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 Plan: Continue Amlodipine Encourage more aerobic activity and weigh loss RTC 6 months documented in this encounter Plan of Treatment Upcoming Encounters Date Type Department Care Team (Late st Contact Info) Description 04/24/2024 10:45 AM EST Clinical Support [facility] [address] [place] [address] documented as of this encounter Goals Goal Patient Goal Type Associated Problems Recent Progress Patient-Stated? Author Maintain a healthy diet, exercise regularly and maintain an ideal body weight General No Thea Rubio MD Stay Tobacco Free Lifestyle No Thea Rubio MD documented as of this encounter Visit Diagnoses Diagnosis ASD (atrial septal defect)- Primary Ostium secundum type atrial septal defect H/O Amplatzer atrial septal defect closure Personal history of surgery to heart and great vessels, presenting hazards to health Chest discomfort Other chest pain Other chest pain documented in this encounter Discontinued Medications Medication Sig Discontinue Reason Start Date End Da te cyanocobalamin (VITAMIN B-12) 500 mcg Oral TabletIndications:Cyan ocobalamin deficiency Take 1 Tab by mouth once a week. DELETE-Therapy completed 12/17/2017 09/21/2018 loratadine (CLARITIN) 10 mg Oral TabletIndications:Acut e rhinitis Take 1 Tab by mouth daily. DELETE-Therapy completed 05/01/2018 09/21/2018 PIRMELLA 0.5/0.75/1 mg- 35 mcg Oral Tablet TAKE ONE TABLET BY MOUTH DAILY Alternate therapy 12/05/2017 09/21/2018 documented as of this encounter Historical Medications * This list may reflect changes made after this encounter. ranitidine HCl (ZANTAC ORAL) Take 1 Tab by mouth daily. 08/07/2020 cetirizine (ZYRTEC) 10 mg Oral Tablet Take by mouth daily. 03/13/2021 added in this encounter Additional Health Concerns Assessment Noted Time PHQ-9 Depression Total Score: 2 10/07/19 18 8:00 AM EDT PHQ-2 Depression Total Score: 2 10/07/19 18 8:00 AM EDT documented as of this encounter Care Teams Marketing Clerk Relationship Specialty Start Date End Date Thea Rubio MD PCP - General Family Medicine 09/13/14 07/16/22 documented as of this encounter
--- OUTSIDE RECORDS SUMMARY | 2024-03-14 18:19 | XMS_ITS | Encounter Summary ---
Author Organization [place] [address] Care Team Providers Care Project Associate Name Role Phone Thea Rubio MD Primary Care Provider +1- [phone] Reason for Visit * Auth/Cert/Inpt Specialty Diagnoses / Procedures Referred By Contac t Referred To Contact Diagnoses Chest pain due to myocardial ischemia, unspecified ischemic chest pain type Chest pain due to myocardial ischemia, unspecified ischemic chest pain type [I25.9] Procedures TX CATH PLMT L HRT & ARTS W/NJX & ANGIO IMG S&I CORONARY ANGIOGRAM / CARDIAC CATHETERIZATION Referral ID Status Reason Start Date Expiration Date Visits Re quested Visits Authorized [id number] 1 1 Encounter Details Date Type Department Care Team (Late st Contact Info) Description 05/25/2018 8:00 AM EST - 05/25/2018 9:00 AM EST Surgery EDG TRANSACTION COORDINATOR [facility] [place] [address] Migue Anne MD [address] [place] [address] [place] [address] CORONARY ANGIOGRAM / CARDIAC CATHETERIZATION Surgery Details Date/Time Status Location OR Service Patient Class Case Class Case Type Trauma Case? 05/25/2018 8:00 AM Posted EDG CARDIAC TRANSACTION COORDINATOR IMAGING EDG CCL 2 Cardiac Same Day Surgery Elective Panel 1 Procedure LRB Anes Op Region Wound Class Comments CORONARY ANGIOGRAM / CARDIAC CATHETERIZATION N/A Moderate Sedation CORONARY ANGIOGRAM / CARDIAC CATHETERIZATION LEFT HEART CATHETERIZATION N/A Moderate Sedation LEFT VENTRICULOGRAM N/A Moderate Sedation Surgeon Surgeon Role Service Panel Migue Anne MD Primary Cardiac 1 Special Needs 6AM documented in this encounter Social History Tobacco Use Types Packs/Day Years [...] encounter Discharge Instructions * Discharge Instructions* Za Ibarra RN - 05/25/2018 9:33 AM EST Best wishes are extended to you on behalf of [facility] as you are discharged. Because we are [...] sent through Care Everywhere. * Amlodipine tablets (Burmese) documented in this encounter Ordered Prescriptions Prescription Sig Dispense Quantity Refills Last Filled Start Date End Date amLODIPine (NORVASC) 2.5 mg Oral Tablet Take 1 Tab by mouth daily. 30 Tab 2 05/25/2018 08/26/2018 documented in this encounter Discharge Disposition Disposition Code Departure Means Destination Home or Self [facility] documented in this encounter H&P Notes * Migue Anne MD - 05/25/2018 8:11 AM EST PHYSICIAN IMMEDIATE PRE-PROCEDURE UPDATE H&P and SEDATION ASSESSMENT Risks, benefits, potential complications and alternatives have been discussed with patient and/or patient's legal authorized bank representative. HISTORY AND PHYSICAL H&P is less [...] fauces visible) Cath PCI Bleeding Risk Score Supervisor [facility]; <=25 mild, 26-65 mod, >65 high = : 40 Height: 5' 5.5 (166.4 cm) Weight: 135 lb 5 oz (61.4 kg) BMI (Calculated): 22.2 Comment: Allergies Allergen Reactions ??? Latex Rash ??? Latex, Natural Rubber Rash ??? Morphine Nausea And Vomiting ??? Metronidazole Rash Source Note - Tiny Ortega, CERTIFIED PHARMACY TECH - 05/07/2018 2:30 PM EST Chief Complaint [...] Rfl: ??? fluticasone (FLONASE) 50 mcg/actuation Nasl [place], Suspension, 1 [place] by Nasal route daily for14 days., Disp: [...] not limited to bleeding, infection, renal insufficiency, MD, stroke, and . The patient is willing the proceed. Return in about 3 months (around 08/05/2018). Call us with any questions or concerns prior to your next visit. documented in this encounter Nursing Notes * Za Ibarra, IVETTE - 05/25/2018 10:52 AM EST Written and verbal discharge instructions given to patient and patient's significant other. Verbalized understanding. documented in this encounter Plan of Treatment Upcoming Encounters Date Type Department Care Team (Late st Contact Info) Description 04/24/2024 10:45 AM EST Clinical Support [facility] [address] [place] [address] documented as of this encounter [...] myocardial ischemia, unspecified ischemic chest pain type TRANSACTION COORDINATOR HEMODYNAMIC WAVEFORMS Routine 05/25/2018 7:51 AM EST [...] CATH ORDERABLES Final Result Performing Organization Address [facility] de Phone Number [facility] * TRANSACTION COORDINATOR HEMODYNAMIC WAVEFORMS (05/25/2018 7:51 AM EST) 05/25/2018 7:51 AM EST Migue Anne MD CARDIAC CATH ORDERABLES Final Result Performing Organization Address [facility] de Phone Number [facility] [address] [place] [address] * POCT URINE (05/25/2018 7:42 AM EST) Preg Test, Ur NEG POS/NEG [facility] Lot Number [id number] [facility] Expiration Date 08/19/2019 [facility] SeriAl # [facility] Control Line Yes YES/NO [facility] 05/25/2018 7:42 AM EST Migue Anne MD POINT OF CARE TEST ORDE LORY Final Result Performing Organization Address [facility] de Phone Number [facility] [address] [place] [address] documented in this encounter Visit Diagnoses Diagnosis [...] CONTINUOUS, Starting on 05/24/18 at 1330, Until 2/4/19 at 1610, Start 2 hours prior to [...] Given 05/25/2018 6:38 AM EST 325 mg fentaNYL (SUBLIMAZE) injection PRN, Starting on Fri05/25/18 at 0813, Until Fri05/25/18 at 0846, Intra-procedure(Cath) Given 05/25/2018 8:16 AM EST 50 mcg lidocaine 20 mg/mL (2 %) injection PRN, Starting on Fri05/25/18 at 0814, Until Fri05/25/18 at 0846, Intra-procedure(Cath) Given 05/25/2018 8:22 AM EST 5 mL Right Groin midazolam (VERSED) injection PRN, Starting on Fri05/25/18 at 0813, Until Fri05/25/18 at 0846, Intra-procedure(Cath) Given 05/25/2018 8:22 AM EST 1 mg documented in this encounter Historical Medications [...] at 0813, Until Fri05/25/18 at 0846, Intra-procedure(Cath) 812 (Given - Provid er: Heather Garcia RN)815 (Given - Provider: Heather Garcia RN) lidocaine 20 mg/mL (2 %) injection (CANCELED) PRN, Starting on Fri05/25/18 at 0814, Until Fri05/25/18 at 0846, Intra-procedure(Cath) 813 (Given - Provid er: Migue Anne MD)821 (Given - Provider: Migue Anne MD) LORazepam [...] at 0813, Until Fri05/25/18 at 0846, Intra-procedure(Cath) 812 (Given - Provid er: Heather Garcia RN)821 (Given - Provider: Heather Garcia RN) documented in this encounter Orders Medications Ordered That Jair ht Not Have Been Administered Count Last Ordered Date First Ordered Date acetaminophen (TYLENOL) tablet 650 mg 1 07/2018 atropine injection 0.5 mg 1 05/25/2018 dextrose 50 % solution 25 g 1 05/25/2018 EPINEPHrine injection 1 mg 1 05/25/2018 fentaNYL (SUBLIMAZE) injection 50 mcg 1 07/2018 LORazepam (ATIVAN) tablet 1 mg 1 05/25/2018 metoclopramide HCl (REGLAN) injection 10 mg 1 05/25/2018 Discharge Count Last Ordered Date First Orde red Date DISCHARGE PATIENT 1 05/25/2018 documented in this encounter Additional Health Concerns Assessment Noted Time PHQ-9 Depression Total Score: 2 10/07/19 18 8:00 AM EDT PHQ-2 Depression Total Score: 2 10/07/19 18 8:00 AM EDT documented as of this encounter Care Teams Project Associate Relationship Specialty Start Date End Date Thea Rubio MD PCP - General Family Medicine 09/13/14 07/16/22 documented as of this encounter
--- OUTSIDE RECORDS SUMMARY | 2024-03-14 18:19 | XMS_ITS | Encounter Summary ---
Author Organization [place] [address] Care Team Providers Care Engine Oiler Name Role Phone Thea Rubio MD Primary Care Provider +1- [phone] Reason for Visit * Reason Comments Injections Encounter Details Date Type Department Care Team (Latest Contact Info) Description 11/24/2018 3:40 PM EDT Clinical Support [facility] [address] [place] [address] Any Whitney RMA Encounter for initial prescription of injectable contraceptive (Primary Dx); Surveillance of contraceptive injection Social History Tobacco Use Types Packs/Day Years [...] Clinical Support [facility] [address] [place] [address] documented as of this encounter Goals Goal Patient Goal Type Associated Problems Recent Progress Patient-Stated? Author Maintain a healthy diet, exercise regularly and maintain an ideal body weight General No Thea Rubio MD Stay Tobacco Free Lifestyle No Thea Rubio MD documented as of this encounter Procedures Procedure Name Priority Date/Time Associated Diagnosis Comments POCT URINE Routine 11/24/2018 3:58 PM EDT Surveillance of contraceptive injection documented in this encounter Results * POCT URINE (11/24/2018 3:58 PM EDT) Preg Test, Ur negative POS/NEG SEP OFFICE Lot Number SEP OFFICE Expiration Date SEP OFFICE SeriAl # SEP OFFICE Control Line YES/NO SEP OFFICE 11/24/2018 3:58 PM EDT us Thea Rubio MD POINT OF CARE TEST ORDERAB LES Final Result SEP OFFICE documented in this encounter Visit Diagnoses Diagnosis Encounter for initial prescription of injectable contraceptive- Primary General counseling for initiation of other contraceptive measures Surveillance of contraceptive injection Surveillance of other previously prescribed contraceptive method documented in this encounter Administered Medications Inactive Administered Medications - up to 1 most recent administrations Medication Order MAR Action Action Date Dose Rate Site medroxyPROGESTERone (DEPO-PROVERA) injection 150 mg 150 mg, Intramuscular, ONCE, 1 dose, On Fri11/24/18 at 1600, Dx: 1. Surveillance of contraceptive injectionIndications:Surv eillance of contraceptive injection Given 11/24/2018 3:58 PM EDT 150 mg Left Upper Outer Quadrant documented in this encounter Additional Health Concerns Assessment Noted Time PHQ-9 Depression Total Score: 2 10/07/19 18 8:00 AM EDT PHQ-2 Depression Total Score: 2 10/07/19 18 8:00 AM EDT documented as of this encounter Care Teams Engine Oiler Relationship Specialty Start Date End Date Thea Rubio MD PCP - General Family Medicine 09/13/14 07/16/22 documented as of this encounter
--- OUTSIDE RECORDS SUMMARY | 2024-03-14 18:19 | XMS_ITS | Encounter Summary ---
Author Organization [place] [address] Care Team Providers Care Pharmaceutical Engineer Name Role Phone Thea Rubio MD Primary Care Provider +1- [phone] Reason for Visit * Reason Comments Contraception Encounter Details Date Type Department Care Team (Latest Contact Info) Description 03/25/2019 2:30 PM EST Clinical Support [facility] [address] [place] [address] Allyn Sumner CMA Surveillance for Depo-Provera contraception (Primary Dx) Social [...] Clinical Support [facility] [address] [place] [address] documented as of this encounter Goals Goal Patient Goal Type Associated Problems Recent Progress Patient-Stated? Author Maintain a healthy diet, exercise regularly and maintain an ideal body weight General No Thea Rubio MD Stay Tobacco Free Lifestyle No Thea Rubio MD documented as of this encounter Visit Diagnoses Diagnosis Surveillance for Depo-Provera contraception- Primary Surveillance of other previously prescribed contraceptive method documented in this encounter Administered Medications Inactive Administered Medications - up to 1 most recent administrations Medication Order MAR Action Action Date Dose Rate Site medroxyPROGESTERone (DEPO-PROVERA) injection 150 mg 150 mg, Intramuscular, ONCE, 1 dose, On Stephanie 03/25/19 at 1445, Dx: 1. Surveillance for Depo-Provera contraceptionIndications: Surveillance for Depo-Provera contraception Given 03/25/2019 2:33 PM EST 150 mg Left Upper Outer Quadrant documented in this encounter Additional Health Concerns Assessment Noted Time PHQ-9 Depression Total Score: 2 10/07/19 18 8:00 AM EDT PHQ-2 Depression Total Score: 2 10/07/19 18 8:00 AM EDT documented as of this encounter Care Teams Pharmaceutical Engineer Relationship Specialty Start Date End Date Thea Rubio MD PCP - General Family Medicine 09/13/14 07/16/22 documented as of this encounter
--- OUTSIDE RECORDS SUMMARY | 2024-03-14 18:19 | XMS_ITS | Encounter Summary ---
Author Organization [place] [address] Care Team Providers Care Tray Casting Machine Operator Name Role Phone Thea Rubio MD Primary Care Provider +1- [phone] Reason for Visit * Reason Comments Medication Refill Encounter Details Date Type Department Care Team (Late st Contact Info) Description 06/13/2018 Refill [facility] [address] [place] [address] Dallin Chou PA-C [address] [place] [address] Medication Refill Social History Tobacco Use Types [...] ONE TABLET BY MOUTH DAILY 90 Tab 06/15/2018 09/20/2018 documented in this encounter Plan of Treatment Upcoming Encounters Date Type Department Care Team (Late st Contact Info) Description 04/24/2024 10:45 AM EST Clinical Support [facility] [address] [place] [address] documented as of this encounter Goals Goal Patient Goal Type Associated Problems Recent Progress Patient-Stated? Author Maintain a healthy diet, exercise regularly and maintain an ideal body weight General No hTea Rubio MD Stay Tobacco Free Lifestyle No Thea Rubio MD documented as of this encounter Visit Diagnoses Not on filedocumented in this encounter Discontinued Medications Medication Sig Discontinue Reason Start Date End Da te escitalopram oxalate (LEXAPRO) 20 mg Oral Tablet Take 1 Tab by mouth daily. Reorder 02/03/2018 06/13/2018 documented as of this encounter Additional Health Concerns Assessment Noted Time PHQ-9 Depression Total Score: 2 10/07/19 18 8:00 AM EDT PHQ-2 Depression Total Score: 2 10/07/19 18 8:00 AM EDT documented as of this encounter Care Teams Tray Casting Machine Operator Relationship Specialty Start Date End Date Thea Rubio MD PCP - General Family Medicine 09/13/14 07/16/22 documented as of this encounter
--- OUTSIDE RECORDS SUMMARY | 2024-03-14 18:19 | XMS_ITS | Encounter Summary ---
Author Organization [place] [address] Care Team Providers Care Respiratory Care Assistant Name Role Phone Thea Rubio MD Primary Care Provider +1- [phone] Encounter Details Date Type Department Care Team (Latest Contact Info) Description 05/19/2018 3:03 PM EST - 05/19/2018 11:59 PM EST Hospital Encounter [facility] [place] [address] ASD (atrial septal defect) Discharge Disposition: Home [...] in this encounter Progress Notes * Tiny Ortega APRN - 05/19/2018 11:59 PM EST Pre procedure labs ok documented in this encounter Plan of Treatment Upcoming Encounters Date Type Department Care Team (Late st Contact Info) Description 04/24/2024 10:45 AM EST Clinical Support [facility] [address] [place] [address] documented as of this encounter Goals Goal Patient Goal Type Associated Problems Recent Progress Patient-Stated? Author Maintain a healthy diet, exercise regularly and maintain an ideal body weight General No Thea Rubio MD Stay Tobacco Free Lifestyle Thea Hickman MD documented as of this encounter Procedures Procedure Name Priority Date/Time Associated Diagnosis Comments CBC Routine 05/19/2018 3:07 PM EST ASD (atrial septal defect) BASIC METABOLIC PANEL Routine 05/19/2018 3:07 PM EST ASD (atrial septal defect) documented in this encounter Results * (ABNORMAL) CBC (05/19/2018 [...] 05/19/2018 3:11 PM EST us Tiny Ortega VITICULTURIST HEMATOLOGY ORDERABLES Antonia serrano Result [facility] [address] [facility] , [place] [address] * BASIC METABOLIC PANEL (05/19/2018 3:07 PM [...] 05/19/2018 3:11 PM EST us Tiny Ortega VITICULTURIST CHEMISTRY ORDERABLES Final Result [facility] [employer] [address] [facility] , [place] [address] documented in this encounter Visit Diagnoses Diagnosis ASD (atrial septal defect) Ostium secundum type atrial septal defect documented in this encounter Additional Health Concerns Assessment Noted Time PHQ-9 Depression Total Score: 2 10/07/19 18 8:00 AM EDT PHQ-2 Depression Total Score: 2 10/07/19 18 8:00 AM EDT documented as of this encounter Care Teams Respiratory Care Assistant Relationship Specialty Start Date End Date Thea Rubio MD PCP - General Family Medicine 09/13/14 07/16/22 documented as of this encounter
--- OUTSIDE RECORDS SUMMARY | 2024-03-14 18:20 | XMS_ITS | Encounter Summary ---
Author Organization [place] [address] Care Team Providers Care Pusher Runner Name Role Phone Thea Rubio MD Primary Care Provider +1- [phone] Encounter Details Date Type Department Care Team (Late Contact Info) Description 01/28/2018 Orders Only [facility] [address] [place] [address] Thea Rubio MD [address] [place] [address] [phone] Anemia, unspecified type (Primary Dx) Social History Tobacco [...] [facility] [address] [place] [address] documented as of this encounter Goals Goal Patient Goal Type Associated Problems Recent Progress Patient-Stated? Author Maintain a healthy diet, exercise regularly and maintain an ideal body weight General No Thea Rubio MD Stay Tobacco Free Lifestyle No Tcheng, Thea Pimentel MD documented as of this encounter Results * IRON/UIBC (04/15/2018 11:33 AM EST) Iron [...] Final Result [facility] [address] [facility] , [place] [address] * CBC WITH DIFF (04/15/2018 11:33 AM [...] 04/15/2018 2:47 PM EST [facility] MPV 10.2 8.8 - 12.5 fL 04/15/2018 2:47 PM EST [facility] Neut Percent 70.8 % 04/15/2018 2:47 PM EST [facility] Comment:Neutrophils equals s egs plus bands Imm Gran% 0.4 % 04/15/2018 2:47 PM EST [facility] Comment:Automated count of m etamyelocytes, myelocytes and promyelocytes. Lymph Percent 17.7 % 04/15/2018 2:47 PM EST [facility] [place] Percent 6.0 % 04/15/2018 2:47 PM EST [facility] Eos Percent 4.8 % 04/15/2018 2:47 PM EST [facility] Baso Percent 0.3 % 04/15/2018 2:47 PM EST [facility] Neut # 5.3 1.6 - 6.1 x10(3)/mcL 04/15/2018 2:47 PM EST [facility] Comment:Neutrophils equals s egs plus bands IMMGRAN# 0.0 0.0 - 0.1 x10(3)/mcL 04/15/2018 2:47 PM EST [facility] Comment:Automated count of m etamyelocytes, myelocytes and promyelocytes. An absolute IG <0.1 is reported as 0.0. Lymph # 1.3 1.2 - 3.9 x10(3)/mcL 04/15/2018 2:47 PM EST [facility] Dyer # 0.5 0.3 - 0.9 x10(3)/mcL 04/15/2018 2:47 PM EST [facility] Eos# 0.4 0.0 - 0.5 x10(3)/mcL 04/15/2018 2:47 PM EST [facility] Baso # 0.0 0.0 - 0.1 x10(3)/mcL 04/15/2018 2:47 PM EST [facility] Blood Venipuncture / Unknown 04/15/2018 11:33 AM EST 04/15/2018 11:33 AM EST us Thea Rubio MD HEMATOLOGY ORDERABLES Antonia l Result Performing Organization Address City/[facility]/ZIP Co de Phone Number [email or web address] [address] [facility] , [place] [address] * VITAMIN B12 LEVEL (04/15/2018 11:33 AM EST) Vitamin B12 440 211 - 946 pg/mL 04/15/2018 3:15 PM EST [email or web address] Blood Venipuncture / Unknown 04/15/2018 11:33 AM EST 04/15/2018 11:33 AM EST Narrative [email or web address] - 04/15/2018 3:15 PM EST Ingestion of abimael doses of biotin (>5 mg/day) taken within 8 hours of drawing blood sample can interfere with this immunoassay test. us Thea Rubio MD CHEMISTRY ORDERABLES Final Result Performing Organization Address [facility] de Phone Number [email or web address] [address] [facility] , [place] [address] documented in this encounter Visit Diagnoses Diagnosis Anemia, unspecified type- Primary documented in this encounter Additional Health Concerns Assessment Noted Time PHQ-9 Depression Total Score: 2 10/07/19 18 8:00 AM EDT PHQ-2 Depression Total Score: 2 10/07/19 18 8:00 AM EDT documented as of this encounter Care Teams Pusher Runner Relationship Specialty Start Date End Date Thea Rubio MD PCP - General Family Medicine 09/13/14 07/16/22 documented as of this encounter
--- OUTSIDE RECORDS SUMMARY | 2024-03-14 18:20 | XMS_ITS | Encounter Summary ---
Author Organization [place] [address] Care Team Providers Care Drawing Kiln Operator Name Role Phone Thea Rubio MD Primary Care Provider +1- [phone] Reason for Visit * Reason Onset Date Comments Other 04/02/2018 numbness and CP Encounter Details Date Type Department Care Team (Late st Contact Info) Description 04/02/2018 Telephone [facility]P [facility] [address] [place] [address] Migue Anne MD [address] [place] [address] Other (numbness and CP) Social History Tobacco Use Types Packs/Day Years [...] Telephone Encounter - Teresa Saleh RN - 04/02/2018 11:21 AM EST Pt returned call and will be in at 1430 for further eval. * Telephone Encounter - Teresa Saleh RN - 04/02/2018 10:[address] Anne has a cancellation this afternoon at 1430 - Pt tentatively scheduled. [facility]. ([place], thank you) * Telephone Encounter - Magdalena Tello RMA - 04/02/2018 8:15 AM EST Please call the patient and triage. Will route to the wire spooler * Telephone Encounter - Magdalena Tello RMA - 04/02/2018 8:14 AM EST ----- Message from Gardenia Childress sent at 04/02/2018 8:12 AM EST ----- Regarding: Non-Urgent Medical Question Contact: Dr. Anne, I've had a headache three days in a row, my neck has been hurting and the other day my left arm felt like I had slept on it wrong even though I didn't sleep on my left side, and for the last few sIacc've had sharp pains on the left side of my chest that comes and goes documented in this encounter Plan of Treatment Upcoming Encounters Date Type Department Care Team (Late st Contact Info) Description 04/24/2024 10:45 AM EST Clinical Support [facility] [address] [place] [address] documented as of this encounter [...] documented as of this encounter Care Teams Drawing Kiln Operator Relationship Specialty Start Date End Date Thea Rubio MD PCP - General Family Medicine 09/13/14 07/16/22 documented as of this encounter
--- OUTSIDE RECORDS SUMMARY | 2024-03-14 18:20 | XMS_ITS | Encounter Summary ---
Author Organization [place] [address] Care Team Providers Care Spiritual Care Coordinator Name Role Phone Thea Rubio MD Primary Care Provider +1- [phone] Reason for Visit * Reason Comments Follow-up depression f/u Encounter Details Date Type Department Care Team (Late st Contact Info) Description 03/03/2018 3:00 PM EST [facility] [address] [place] [address] Dallin Chou PA-C [address] [place] [address] Adjustment disorder with depressed mood (Primary Dx); Major depressive disorder, recurrent episode, mild (HCC) Social History Tobacco Use Types Packs/Day Years [...] Sign Reading Time Taken Comments Blood Pressure 120/88 03/03/2018 3:03 PM EST Pulse 70 03/03/2018 3:03 PM EST Temperature 36.7 ??C (98.1 ??F) 03/03/2018 3:03 PM ES T Respiratory Rate - - Oxygen Saturation 99% 03/03/2018 3:03 PM EST Inhaled Oxygen Concentration - - Weight 65 kg (143 lb 3.2 oz) 03/03/2018 3:03 PM EST Height 165.4 cm (5' 5.1 ) 03/03/2018 3:03 PM EST Body Mass Index 23.76 03/03/2018 3:03 PM EST documented in this encounter Progress Notes * Dallin Chou PA-C - 03/03/2018 3:00 PM EST Chief Complaint Patient presents with ??? Follow-up depression f/u HPI: Here for f/u depression On lexapro 20 mg daily Well tolerated No nausea ORTEGA drowsiness No SI or HI Past Medical History: Diagnosis Date ??? Bile [...] ??? COLONOSCOPY 01/12/2018 Dr. Aaron Rocha, with [facility]. Normal colon ??? UPPER GASTROINTESTINAL ENDOSCOPY 12/04/2017 at , Dr. Aaron Rocha Outpatient Encounter Prescriptions as of 03/03/2018 Medication Sig Dispense Refill ??? aspirin 81 [...] Take 1 Tab by mouth daily. ??? naproxen (NAPROSYN) 500 mg Oral Tablet Take 1 Tab by mouth 2 times daily (with meals). 60 Tab 2 ??? PIRMELLA 0.5/0.75/1 mg- 35 mcg Oral Tablet TAKE ONE TABLET BY MOUTH DAILY 28 Tab 10 ??? clopidogrel (PLAVIX) 75 mg Oral Tablet Take 1 Tab by mouth daily. (Patient not taking: Reportedon 02/03/2018) 90 Each 1 No facility-administered encounter medications on file as of 03/03/2018. See time date stamps in the EMR for other pertient history components reviewed as part of today's encounter. Review of Systems Constitutional: Negative for activity change, appetite change, fatigue, fever and unexpected weightchange. HENT: Negative for trouble swallowing. Eyes: Negative for visual disturbance. Respiratory: Negative for cough. Cardiovascular: Negative for chest pain and palpitations. Gastrointestinal: Negative for abdominal pain, constipation, diarrhea and nausea. Endocrine: Negative for cold intolerance, heat intolerance, polydipsia, polyphagia and polyuria. Genitourinary: Negative for difficulty urinating. Musculoskeletal: Negative for arthralgias and myalgias. Skin: Negative for rash. Neurological: Negative for weakness, light-headedness and headaches. Psychiatric/Behavioral: Negative for agitation, confusion, decreased concentration, dysphoric mood,hallucinations, self-injury, sleep disturbance and suicidal ideas. The patient is not nervous/anxious and is not hyperactive. Vitals: 03/03/18 1503 BP: 120/88 BP Location: Left arm Patient Position: Sitting Pulse: 70 Temp: 98.1 ??F (36.7 ??C) TempSrc: Oral SpO2: 99% Weight: 143 lb 3.2 oz (65 kg) Height: 5' 5.1 (1.654 m) Physical Exam Constitutional: She is oriented [...] Diagnoses and all orders for this visit: Adjustment disorder with depressed mood Major depressive disorder, recurrent episode, mild (HCC) (Chronic) doing well now Stay on lexapro as written Follow up 3 months Sooner if needed Return in about 3 months (around 06/03/2018). [facility] was completed/reviewed as part of today's visit. Educated patient regarding the diagnosis, medication/treatment, goals, self- management tools and instructions based on their care plan. They verbalized understanding of the education given on the After Visit Summary [AVS] for today's visit. A copy of the AVS was provided either in writing and/or via Rad. A new medicine was not prescribed on this visit. documented in this encounter Miscellaneous Notes * Patient Instructions - Dallin Chou PA-C - 03/03/2018 8:44 PM EST Images from the original note were not included. Patient Education Major Depressive Disorder, Adult Major depressive disorder (MDD) is a mental health condition. It may also be called clinical depression or unipolar depression. MDD usually causes feelings of sadness, hopelessness, or helplessness. MDD can also cause physical symptoms. It can interfere with work, school, relationships, and other everyday activities. MDD may be mild, moderate, or severe. It may occur once (single episode major depressive disorder) or it may occur multiple times (recurrent major depressive disorder). What are the causes? The exact cause of this condition is not known. MDD is most likely caused by a combination of things, which may include: ?? Genetic factors. These are traits that are passed along from parent to child. ?? Individual factors. Your personality, your behavior, and the way you handle your thoughts and feelings may contribute to MDD. This includes personality traits and behaviors learned from others. ?? Physical factors, such as: ?? Differences in the part of your brain that controls emotion. This part of your brain may be different than it is in people who do not have MDD. ?? Long-term (chronic) medical or psychiatric illnesses. ?? Social factors. Traumatic experiences or major life changes may play a role in the development of MDD. What increases the risk? This condition is more likely to develop in women. The following factors may also make you more likely to develop MDD: ?? A family history of depression. ?? Troubled family relationships. ?? Abnormally low levels of certain brain chemicals. ?? Traumatic events in childhood, especially abuse or the loss of a parent. ?? Being under a lot of stress, or long-term stress, especially from upsetting life experiences or losses. ?? A history of: ?? Chronic physical illness. ?? Other mental health disorders. ?? Substance abuse. ?? Poor living conditions. ?? Experiencing social exclusion or discrimination on a regular basis. What are the signs or symptoms? The main symptoms of MDD typically include: ?? Constant depressed or irritable mood. ?? Loss of interest in things and activities. MDD symptoms may also include: ?? Sleeping or eating too much or too little. ?? Unexplained weight change. ?? Fatigue or low energy. ?? Feelings of worthlessness or guilt. ?? Difficulty thinking clearly or making decisions. ?? Thoughts of suicide or of harming others. ?? Physical agitation or weakness. ?? Isolation. Severe cases of MDD may also occur with other symptoms, such as: ?? Delusions or hallucinations, in which you imagine things that are not real (psychotic depression). ?? Low-level depression that lasts at least a year (chronic depression or persistent depressive disorder). ?? Extreme sadness and hopelessness (melancholic depression). ?? Trouble speaking and moving (catatonic depression). How is this diagnosed? This condition may be diagnosed based on: ?? Your symptoms. ?? Your medical history, including your mental health history. This may involve tests to evaluate your mental health. You may be asked questions about your lifestyle, including any drug and alcohol use, and how long you have had symptoms of MDD. ?? A physical exam. ?? Blood tests to rule out other conditions. You must have a depressed mood and at least four other MDD symptoms most of the day, nearly every day in the same 2-week timeframe before your health care provider can confirm a diagnosis of MDD. How is this treated? This condition is usually treated by mental health professionals, such as psychologists, psychiatrists, and clinical social workers. You may need more than one type of treatment. Treatment may include: ?? Psychotherapy. This is also called talk therapy or counseling. Types of psychotherapy include: ?? Cognitive behavioral therapy (CBT). This type of therapy teaches you to recognize unhealthy feelings, thoughts, and behaviors, and replace them with positive thoughts and actions. ?? Interpersonal therapy (IPT). This helps you to improve the way you relate to and communicate with others. ?? Family therapy. This treatment includes members of your family. ?? Medicine to treat anxiety and depression, or to help you control certain emotions and behaviors. ?? Lifestyle changes, such as: ?? Limiting alcohol and drug use. ?? Exercising regularly. ?? Getting plenty of sleep. ?? Making healthy eating choices. ?? Spending more time outdoors. Treatments involving stimulation of the brain can be used in situations with extremely severe symptoms, or when medicine or other therapies do not work over time. These treatments include electroconvulsive therapy, transcranial magnetic stimulation, and vagal nerve stimulation. Follow these instructions at home: Activity ?? Return to your normal activities as told by your health care provider. ?? Exercise regularly and spend time outdoors as told by your health care provider. General instructions ?? Take [id number] and prescription medicines only as told by your health care provider. ?? Do not drink alcohol. If you drink alcohol, limit your alcohol intake to no more than 1 drink a day for non women and 2 drinks a day for men. One drink equals 12 oz of beer, 5 oz of wine, or 1?? oz of hard liquor. Alcohol can affect any antidepressant medicines you are taking. Talk to your health care provider about your alcohol use. ?? Eat a healthy diet and get plenty of sleep. ?? Find activities that you enjoy doing, and make time to do them. ?? Consider joining a support group. Your health care provider may be able to recommend a support group. ?? Keep all follow-up visits as told by your health care provider. This is important. Where to find more information: National [place] on Mental Illness ?? www.joseph.org U.S. National [place] of Mental Health ?? www.nimh.nih.gov National Suicide Prevention Lifeline ?? 0-928-342-TALK (6664). This is free, 24-hour help. Contact a health care provider if: ?? Your symptoms get worse. ?? You develop new symptoms. Get help right away if: ?? You self-harm. ?? You have serious thoughts about hurting yourself or others. ?? You see, hear, taste, smell, or feel things that are not present (hallucinate). This information is not intended to replace advice given to you by your health care provider. Make sure you discuss any questions you have with your health care provider. Document Released: 08/02/2013 Document Revised: 12/12/2016 Document Reviewed: 10/16/2016 Elsevier Interactive Patient Education ?? 2018 [employer] documented in this encounter Plan of Treatment Upcoming Encounters Date Type Department Care Team (Late st Contact Info) Description 04/24/2024 10:45 AM EST Clinical Support [facility] [address] [place] [address] documented as of this encounter Goals Goal Patient Goal Type Associated Problems Recent Progress Patient-Stated? Author Maintain a healthy diet, exercise regularly and maintain an ideal body weight General No Thea Rubio MD Stay Tobacco Free Lifestyle No Thea Rubio MD documented as of this encounter Visit Diagnoses Diagnosis Adjustment disorder with depressed mood- Primary Major depressive disorder, recurrent episode, mild (HCC) Major depressive disorder, recurrent episode, mild documented in this encounter Additional Health Concerns Assessment Noted Time PHQ-9 Depression Total Score: 2 10/07/19 18 8:00 AM EDT PHQ-2 Depression Total Score: 2 10/07/19 18 8:00 AM EDT documented as of this encounter Care Teams Spiritual Care Coordinator Relationship Specialty Start Date End Date Thea Rubio MD PCP - General Family Medicine 09/13/14 07/16/22 documented as of this encounter
--- OUTSIDE RECORDS SUMMARY | 2024-03-14 18:20 | XMS_ITS | Encounter Summary ---
Author Organization [place] [address] Care Team Providers Care Wood Floor Refinisher Name Role Phone Thea Rubio MD Primary Care Provider +1- [phone] Reason for Referral * Echo (Routine) - Closed Specialty Diagnoses / Procedures Referred By Nancyac t Referred To Contact Radiology Diagnoses ASD (atrial septal defect) H/O Amplatzer atrial septal defect closure Procedures EC ECHOCARDIOGRAM LIMITED Myrtle Vincent APRN EDG ECHO [facility] [place] [address] Phone: tel: fax: Referral ID Status Reason Start Date Expiration Date Visits Re quested Visits Authorized [id number] Closed 07/18/2017 07/19/2019 1 1 Reason for Visit * Echo (Routine) - Closed Specialty Diagnoses / Procedures Referred By Amalia tuttle Referred To Contact Radiology Diagnoses ASD (atrial septal defect) H/O Amplatzer atrial septal defect closure Procedures EC ECHOCARDIOGRAM LIMITED Myrtle Vincent APRN EDG [facility] [place] [address] Phone: tel: fax: Referral ID Status Reason Start Date Expiration Date Visits Re quested Visits Authorized [id number] Closed 07/18/2017 07/19/2019 1 1 Encounter Details Date Type Department Care Team (Latest Contact Info) Description 01/06/2018 12:48 PM EDT - 01/06/2018 11:59 PM EDT Hospital Encounter [facility] [address] [place] [id number] Myrtle Vincent APRN ASD (atrial septal defect); H/O Amplatzer atrial septal defect closure Discharge Disposition: Home or Self Care Social [...] Description 04/24/2024 10:45 AM EST Clinical Support [facility] [address] [place] [address] documented as of this encounter Goals Goal Patient Goal Type Associated Problems Recent Progress Patient-Stated? Author Maintain a healthy diet, exercise regularly and maintain an ideal body weight General No Thea Rubio MD Stay Tobacco Free Lifestyle No Thea Rubio MD documented as of this encounter Procedures Procedure Name Priority Date/Time Associated Diagnosis Comments EC ECHOCARDIOGRAM LIMITED Routine 01/06/2018 2:02 PM EDT ASD (atrial septal defect) H/O Amplatzer atrial septal defect closure documented in this encounter Results * EC ECHOCARDIOGRAM LIMITED (01/06/2018 2:02 PM EDT) Ejection Fraction 60-65 % PYRAMIS Anatomical Region Laterality Modality Electrocardiogra phy 01/06/2018 1:45 PM EDT Impressions 01/06/2018 5:03 PM EDT ??CONCLUSIONS ??Left ventricular ejection fraction is in the normal range. ??Amplazter appears well seated in the interatrial septum without evidence of ??residual shunting. ?? Narrative Procedure Note Migue Anne MD - 01/06/2018 IMPRESSION CONCLUSIONS Left ventricular ejection fraction is in the normal range. Amplazter appears well seated in the interatrial septum without evidenceof residual shunting. Myrtle Vincent APRN IMG ECHO ORDERABLES Final Resu lt documented in this encounter Visit Diagnoses Diagnosis ASD (atrial septal defect) Ostium secundum type atrial septal defect H/O Amplatzer atrial septal defect closure Personal history of surgery to heart and great vessels, presenting hazards to health documented in this encounter Additional Health Concerns Assessment Noted Time PHQ-9 Depression Total Score: 2 10/07/19 18 8:00 AM EDT PHQ-2 Depression Total Score: 2 10/07/19 18 8:00 AM EDT documented as of this encounter Care Teams Wood Floor Refinisher Relationship Specialty Start Date End Date Thea Rubio MD PCP - General Family Medicine 09/13/14 07/16/22 documented as of this encounter
--- OUTSIDE RECORDS SUMMARY | 2024-03-14 18:20 | XMS_ITS | Encounter Summary ---
Author Organization [place] [address] Care Team Providers Care Messenger Floorperson Name Role Phone Thea Rubio MD Primary Care Provider +1- [phone] Reason for Visit * Reason Onset Date Comments Appointment Needed 11/17/2017 Encounter Details Date Type Department Care Team (Late st Contact Info) Description 11/17/2017 Telephone SEP [facility] [place] [address] [place] [address] Migue Anne MD [address] [place] [address] Appointment Needed Social History Tobacco Use Types [...] Telephone Encounter - Magdalena Tello RMA - 11/18/2017 10:11 AM EDT Cris Sellers scheduled pt for 11/19/17 at 330 pm with Tiny * Telephone Encounter - Magdalena Tello RMA - 11/18/2017 9:19 AM EDT TRC to make a appointment with CW * Telephone Encounter - Tiny Ortega APRN - 11/18/2017 9:03 AM EDT I can see her this week. * Telephone Encounter - Teresa Saleh RN - 11/17/2017 3:34 PM EDT Will forward to CW for recommendation. Please see Tele Enc and ER note from today 11/17. * Telephone Encounter - Mya Ramirez, Clerical Staff - 11/17/2017 2:42 PM EDT Pt needs appt jeffry. She went to ER today and was discharged and was told to see Dr Anne soon. Went to ER for elevated BP of 153/96 at ER and tightness in her chest. Please call. documented in this encounter Plan of Treatment Upcoming Encounters Date Type Department Care Team (Late st Contact Info) Description 04/24/2024 10:45 AM EST Clinical Support [facility] [address] [place] [address] documented as of this encounter Goals Goal [...] documented as of this encounter Care Teams Messenger Floorperson Relationship Specialty Start Date End Date Thea Rubio MD PCP - General Family Medicine 09/13/14 07/16/22 documented as of this encounter
--- OUTSIDE RECORDS SUMMARY | 2024-03-14 18:20 | XMS_ITS | Encounter Summary ---
Author Organization [place] [address] Care Team Providers Care Cook Starch Name Role Phone Thea Rubio MD Primary Care Provider +1- [phone] Reason for Visit * Reason Onset Date Comments Other 12/24/2017 Encounter Details Date Type Department Care Team (Late st Contact Info) Description 12/24/2017 Telephone [facility] [address] [place] [address] Thea Rubio MD [address] [place] [phone] Other Social History Tobacco Use Types Packs/Day [...] Telephone Encounter - Susan Oliveira RMA - 12/24/2017 6:50 PM EDT Spoke with patient and discussed Dr Rubio's recommendations * Telephone Encounter - Thea Rubio MD - 12/24/2017 6:43 PM EDT Scant sputum, clear to minimally green. Tell pt that I suspect she still has a virus, a cold. Would not put her on antibiotics yet. She canuse just a tiny bit of Vaseline at night on the inside of the nose of the side that is bleeding. * Telephone Encounter - Susan Oliveira RMA - 12/24/2017 6:36 PM EDT Pt has been sick since Friday, no fever, a little blood left side every time she blows her nose * Telephone Encounter - Thea Rubio MD - 12/24/2017 6:20 PM EDT How long has she had symptoms? Does she have a fever? Is she coughing up mucus and if so, what color is it? How much blood is in her mucus she is blowing out? A little blood is common when the nose is irritated. * Telephone Encounter - Antonietta Richards - 12/24/2017 3:17 PM EDT The patient said when she blows her nose there is blood in the mucus. She also has a cough and she wants to know if you can call in something. She does not want a nasal spray. Shalonda Wilma documented in this encounter Plan of Treatment Upcoming Encounters Date Type Department Care Team (Late st Contact Info) Description 04/24/2024 10:45 AM EST Clinical Support [facility] [address] [place] [address] documented as of this encounter Goals Goal [...] documented as of this encounter Care Teams Cook Starch Relationship Specialty Start Date End Date Thea Rubio MD PCP - General Family Medicine 09/13/14 07/16/22 documented as of this encounter
--- OUTSIDE RECORDS SUMMARY | 2024-03-14 18:20 | XMS_ITS | Encounter Summary ---
Author Organization [place] [address] Care Team Providers Care Stain Applicator Name Role Phone Thea Rubio MD Primary Care Provider +1- [phone] Reason for Visit * Reason Onset Date Comments Prior Authorization 04/08/2018 Other 04/08/2018 Encounter Details Date Type Department Care Team (Late st Contact Info) Description 04/08/2018 Telephone SEP [facility] [place] [address] [place] [address] Migue Anne MD [address] [place] [address] Prior Authorization; Other Social History Tobacco Use Types Packs/Day [...] Telephone Encounter - Heather Holden LPN - 04/10/2018 3:06 PM EST Patient notified * Telephone Encounter - Ena Stephen, Clerical Staff - 04/10/2018 2:48 PM EST Pt returning Cris's call.Please call pt. * Telephone Encounter - Mya Ramirez Clerical Staff - 04/10/2018 2:17 PM EST Pt returned our call. She is off work now and can get a call back. * Telephone Encounter - Ena Stephen Clerical Staff - 04/10/2018 8:06 AM EST Pt returning cris's call.Please call at 11:00am.She will be at lunch and able to take a call. * Telephone Encounter - Heather Holden LPN - 04/10/2018 7:55 AM EST Left message on voice mail per [facility] to notify patient of blood work and to return call. * Telephone Encounter - Heather Holden LPN - 04/09/2018 8:13 AM EST Left message on machine to have patient return call * Telephone Encounter - Tiny Ortega APRN - 04/08/2018 4:17 PM EST Will get a D-dimer first. If positive, then can order chest CT to r/o PE. * Telephone Encounter - Mat, Nikolette, Clerical Staff - 04/08/2018 9:11 AM EST Peer to Peer review need for CT test. Please call [facility] @ [phone], option 3 with in 3 business days. documented in this encounter Plan of Treatment Upcoming Encounters Date Type Department Care Team (Late st Contact Info) Description 04/24/2024 10:45 AM EST Clinical Support [facility] [address] [place] [address] documented as of this encounter Goals Goal Patient Goal Type Associated Problems Recent Progress Patient-Stated? Author Maintain a healthy diet, exercise regularly and maintain an ideal body weight General No Thea Rubio MD Stay Tobacco Free Lifestyle No Thea Rubio MD documented as of this encounter Results * D-DIMER (04/15/2018 11:33 AM EST) D-Dimer <230 <=230 ng/mL D-DU 04/15/2018 2:30 PM EST [facility] Comment: This test has been clinically validated by the lard tub washer and approved by the FDA for exclusion [...] Anne MD HEMATOLOGY ORDERABLES F inal Result [facility] [address] [place] [place] [address] documented in this encounter Visit Diagnoses Diagnosis Atypical chest pain- Primary Other chest pain documented in this encounter Additional Health Concerns Assessment Noted Time PHQ-9 Depression Total Score: 2 10/07/19 18 8:00 AM EDT PHQ-2 Depression Total Score: 2 10/07/19 18 8:00 AM EDT documented as of this encounter Care Teams Stain Applicator Relationship Specialty Start Date End Date Thea Rubio MD PCP - General Family Medicine 09/13/14 07/16/22 documented as of this encounter
--- OUTSIDE RECORDS SUMMARY | 2024-03-14 18:20 | XMS_ITS | Encounter Summary ---
Author Organization [place] [address] Care Team Providers Care Supervisor Solder Making Name Role Phone Thea Rubio MD Primary Care Provider +1- [phone] Reason for Visit * Reason Onset Date Comments ED Follow-Up Call 04/15/2018 Encounter Details Date Type Department Care Team (Late st Contact Info) Description 04/15/2018 Patient Outreach [facility] [address] App[place] [address] Laxmi Pate BS, COS ED Follow-Up Call Social History Tobacco Use [...] as of this encounter Progress Notes * Laxmi Pate BS, COS - 04/15/2018 10:02 AM EST ED Follow Up Regarding the most recent emergency room visit: Number of ED visits in last year: 4 Contact made?: Yes Medical reason for visit: Epigastric abdominal pain Do you feel the staff kept you informed during your visit?: Yes Have your symptoms improved since your ED visit?: No Were you able to, or did you try to, reach us prior to deciding to go to the ED?: No Were you aware that we always have a provider candle extrusion machine operator and offer eVisits?: No Are you aware of the [facility] or [facility]?: No Was there anything more that we could have done to facilitate a visit to our provider office if theED visit was not due to an emergency?: No Reason you chose to go to ED as site for your medical care?: Severity of Illness Did you get a prescription, or were your medications changed?: Yes Did you get it filled?: Yes If patient is unable to fill medications, please consider a social work consult if criteria met: Would you like to follow up with your PCP?: Yes (Comment: nothing available until 05/2018 please call pt to [facility] sooner if possible ) It is important to us that you understood your discharge instructions from the ED. Do you have any questions?: No Are there additional concerns that we have not discussed that I can help you with?: No documented in this encounter Miscellaneous Notes * Telephone Encounter - Thea Rubio MD - 04/15/2018 12:55 PM EST ? appt next wk? documented in this encounter Plan of Treatment Upcoming Encounters Date Type Department Care Team (Late st Contact Info) Description 04/24/2024 10:45 AM EST Clinical Support [facility] [address] [place] [phone] documented as of this encounter Goals Goal [...] as of this encounter Care Teams Supervisor Solder Making Relationship Specialty Start Date End Date Thea Rubio MD PCP - General Family Medicine 09/13/14 07/16/22 documented as of this encounter
--- OUTSIDE RECORDS SUMMARY | 2024-03-14 18:20 | XMS_ITS | Encounter Summary ---
Author Organization [facility] [address] Care Team Providers Care Rubber Moulding Machine Operator Name Role Phone Thea Rubio MD Primary Care Provider +1- [phone] Reason for Visit * Reason Comments Medication Refill Encounter Details Date Type Department Care Team (Late st Contact Info) Description 12/05/2017 Refill [facility] [address] [place] [address] Thea Rubio MD [address] [place] [address] [phone] Medication Refill Social History Tobacco Use Types [...] Refills Last Filled Start Date End Date PIRMELLA 0.5/0.75/1 mg- 35 mcg Oral Tablet TAKE ONE TABLET BY MOUTH DAILY 28 Tab 10 12/05/2017 09/21/2018 documented in this encounter Plan of Treatment Upcoming Encounters Date Type Department Care Team (Late Contact Info) Description 04/24/2024 10:45 AM EST Clinical Support [facility] [address] [place] [address] documented as of this encounter [...] Discontinue Reason Start Date End Da te norethindrone-ethinyl estradiol (ORTHO-NOVUM) 0.5/0.75/1 mg- 35 mcg Oral Tablet Take 1 Tab by mouth daily. Reorder 08/18/2017 12/05/2017 documented as of this encounter Additional Health Concerns Assessment Noted Time PHQ-9 Depression Total Score: 2 10/07/19 18 8:00 AM EDT PHQ-2 Depression Total Score: 2 10/07/19 18 8:00 AM EDT documented as of this encounter Care Teams Rubber Moulding Machine Operator Relationship Specialty Start Date End Date Thea Rubio MD PCP - General Family Medicine 09/13/14 07/16/22 documented as of this encounter
--- OUTSIDE RECORDS SUMMARY | 2024-03-14 18:20 | XMS_ITS | Encounter Summary ---
Author Organization [facility] [place] [address] Care Team Providers Care Spray Drier Operator Helper Name Role Phone Thea Rubio MD Primary Care Provider +1- [phone] Reason for Referral * MRI/CAT Scan (Routine) - Closed Specialty Diagnoses / Procedures Referred By Contac t Referred To Contact Radiology Diagnoses Other chronic pulmonary embolism without acute cor pulmonale (HCC) Chest discomfort ASD (atrial septal defect) Procedures CT CHEST W CONTRAST Migue Anne MD Phone: tel: fax: Referral ID Status Reason Start Date Expiration Date Visits Re quested Visits Authorized [id number] Closed 04/02/2018 04/02/2019 1 1 Reason for Visit * Reason Comments Chest Discomfort few days left side Headache Neck Pain Encounter Details Date Type Department Care Team (Late st Contact Info) Description 04/02/2018 2:30 PM EST Office Visit [facility] [address] [place] [address] Migue Anne MD [address] [place] [address] Chest discomfort (Primary Dx); Precordial pain; ASD (atrial septal defect); Iron deficiency anemia due to chronic blood loss; Congenital biliary atresia (HCC); Other chronic pulmonary embolism without acute cor pulmonale (HCC) Social History Tobacco Use Types Packs/Day [...] Sign Reading Time Taken Comments Blood Pressure 124/76 04/02/2018 2:28 PM EST Pulse 95 04/02/2018 2:28 PM EST Temperature - - Respiratory Rate - - Oxygen Saturation 98% 04/02/2018 2:28 PM EST Inhaled Oxygen Concentration - - Weight 64.3 kg (141 lb 12.8 oz) 04/02/2018 2:28 PM EST Height 165.1 cm (5' 5 ) 04/02/2018 2:28 PM EST Body Mass Index 23.6 04/02/2018 2:28 PM EST documented in this encounter Progress Notes * Migue Anne MD - 04/02/2018 2:30 PM EST Cardiology Follow Up Visit Name: Gardenia Childress : 1980 Referring Physician Thea Rubio MD Reason for Follow-up Chest Brennan, ASD Chief Complaint Patient presents with ??? Chest Discomfort few days left side ??? Headache ??? Neck Pain HPI 38 y.o. female is seen for emergent follow up regarding chest pain. Over the last 3 days she has had chest pain which has wax and waned. Some pressure when breathing deep. No recent fevers. No increased cough. She underwent a colonoscopy at and was told it looked ok. She became concerned yesterday because she noted numbness in left arm. She has had recurrent chest pain over the last 6 months. ROS Denies: Change in vision, headache, fever, chills, nausea, vomiting, anorexia, diarrhea, change in bowel or bladder habits, weight loss or gain. No palpitations, lightheadedness, dizziness, syncope, or near syncope. No extreme fatigue, daytime solomence or change in energy level. No significant depression or anhedonia. Current Outpatient Prescriptions Medication Sig Dispense Refill ??? aspirin 81 [...] TABLET BY MOUTH DAILY 28 Tab 10 No current facility-administered medications for this visit. Allergies Allergen Reactions ??? Latex Rash ??? Morphine Nausea And Vomiting Objective Vitals: 04/02/18 1428 BP: 124/76 Pulse: 95 SpO2: 98% Exam: GENERAL APPEARANCE: In no [...] distension. Bowel sounds are normoactive. EXTREMITIES: No edema- No cyanosis. Good capillary refill. No results found for this visit on 04/02/18. Labs Lab Results Component Value Date CHOLESTEROL 154 05/14/2017 CHOLESTEROL 151 04/22/2017 CHOLESTEROL 174 10/07/2015 HDL 68 05/14/2017 HDL 63 04/22/2017 HDL 50 10/07/2015 LDLCALC 73 05/14/2017 LDLCALC 74 04/22/2017 LDLCALC 110 (H) 10/07/2015 TRIG 67 05/14/2017 TRIG 72 04/22/2017 TRIG 71 10/07/2015 Lab Results Component Value Date INR 1.06 07/04/2017 Lab Results Component Value Date WBC 5.9 01/28/2018 WBC 5.6 12/16/2017 WBC 6.5 11/24/2017 HGB 10.9 (L) 01/28/2018 HGB 9.9 (L) 12/16/2017 HGB 9.7 (L) 11/24/2017 HCT 35.3 01/28/2018 HCT 30.6 (L) 12/16/2017 HCT 30.8 (L) 11/24/2017 MCV 85.9 01/28/2018 MCV 80.1 12/16/2017 MCV 81.7 11/24/2017 PLT 347 01/28/2018 PLT 354 12/16/2017 PLT 337 11/24/2017 No results found for: HGBA1C Lab Results Component Value Date NA 140 11/17/2017 NA 141 10/13/2017 NA 140 07/04/2017 K 3.5 11/17/2017 K 3.5 10/13/2017 K 4.0 07/04/2017 BUN 9 11/17/2017 BUN 8 10/13/2017 BUN 6 07/04/2017 CALCIUM 9.2 11/17/2017 CALCIUM 9.1 10/13/2017 CALCIUM 8.9 07/04/2017 CL 104 11/17/2017 CL 101 10/13/2017 CL 105 07/04/2017 CO2 24 11/17/2017 CO2 25 10/13/2017 CO2 23 07/04/2017 CREATININE 0.72 11/17/2017 CREATININE 0.75 10/13/2017 CREATININE 0.79 07/04/2017 GLU 92 11/17/2017 GLU 93 10/13/2017 GLU 85 07/04/2017 Lab Results Component Value Date ALT 9 10/13/2017 ALT 11 05/14/2017 ALT 14 04/22/2017 AST 14 10/13/2017 AST 15 05/14/2017 AST 22 04/22/2017 ALKPHOS 53 10/13/2017 ALKPHOS 67 05/14/2017 ALKPHOS 64 04/22/2017 Lab Results Component Value Date TSHREFLEX 2.240 [...] interatrial septum without evidence of residual shunting Assessment: Atypical Chest Pain ?? - recurrent issue - echo and coronary CT have been unremarkable ASD - No associated cardiac abnormalities on Cardiac CT - s/p ASD closure 07/06 - appears stable on f/u echo Chronic Migraine ORTEGA's ?? 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 Plan: Will proceed with Chest Ct to evaluate for PE Would discuss with prior surgical team If recurrent chest pain and no issues to exxpldain symptoms would consider cardiac cath RTC 1 months. documented in this encounter Plan of Treatment Upcoming Encounters Date Type Department Care Team (Late st Contact Info) Description 04/24/2024 10:45 AM EST Clinical Support [facility] [address] [place] [phone] Scheduled Orders Name Type Priority Associated Diagnoses Orde r Schedule CT CHEST W CONTRAST Imaging Routine Other chronic pulmonary embolism without acute cor pulmonale (HCC) Chest discomfort ASD (atrial septal defect) 1 Occurrences starting 04/02/2018 until 04/02/2019 documented as of this encounter Goals Goal Patient Goal Type Associated Problems Recent Progress Patient-Stated? Author Maintain a healthy diet, exercise regularly and maintain an ideal body weight General No Thea Rubio MD Stay Tobacco Free Lifestyle No Thea Rubio MD documented as of this encounter Procedures Procedure Name Priority Date/Time Associated Diagnosis Comments POCT EKG Routine 04/02/2018 2:33 PM EST Chest discomfort documented in this encounter Results * POCT EKG (04/02/2018 2:33 PM EST) 04/02/2018 2:33 PM EST Impressions SEP OFFICE - 04/02/2018 2:46 PM EST Sinus Rhythm Incomplete Right Bundle Branch Block No ischemic ST changes Migue Anne MD POINT OF CARE CARDIOLOG Y Final Result SEP OFFICE documented in this encounter Visit Diagnoses Diagnosis Chest discomfort- Primary Other chest pain Precordial pain ASD (atrial septal defect) 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 DELETE-Therapy completed 07/11/2017 04/02/2018 documented as of this encounter Additional Health Concerns Assessment Noted Time PHQ-9 Depression Total Score: 2 10/07/19 18 8:00 AM EDT PHQ-2 Depression Total Score: 2 10/07/19 18 8:00 AM EDT documented as of this encounter Care Teams Spray Drier Operator Helper Relationship Specialty Start Date End Date Thea Rubio MD PCP - General Family Medicine 09/13/14 07/16/22 documented as of this encounter
--- OUTSIDE RECORDS SUMMARY | 2024-03-14 18:20 | XMS_ITS | Encounter Summary ---
Author Organization [place] [address] Care Team Providers Care Gyn Name Role Phone Thea Rubio MD Primary Care Provider +1- [phone] Reason for Visit * Reason Comments Mass pt has a knot on her left shoulder x 2 days Depression depression med not w orking anymore ( lexapro) Encounter Details Date Type Department Care Team (Late st Contact Info) Description 02/03/2018 3:15 PM EDT Office Visit [facility] [address] [place] [address] Dallin Chou PA-C [address] [place] [address] Adjustment disorder with depressed mood (Primary Dx); Strain of left trapezius muscle, initial encounter Social History Tobacco Use Types Packs/Day [...] Sign Reading Time Taken Comments Blood Pressure 118/76 02/03/2018 3:00 PM EDT Pulse 74 02/03/2018 3:00 PM EDT Temperature 36.7 ??C (98 ??F) 02/03/2018 3:00 PM EDT Respiratory Rate - - Oxygen Saturation 99% 02/03/2018 3:00 PM EDT Inhaled Oxygen Concentration - - Weight 64 kg (141 lb) 02/03/2018 3:00 PM EDT Height 165.1 cm (5' 5 ) 02/03/2018 3:00 PM EDT Body Mass Index 23.46 02/03/2018 3:00 PM EDT documented in this encounter Ordered Prescriptions Prescription Sig Dispense Quantity Refills Last Filled Start Date End Date naproxen (NAPROSYN) 500 mg Oral TabletIndications:S train of left trapezius muscle, initial encounter Take 1 Tab by mouth 2 times daily (with meals). 60 Tab 2 02/03/2018 05/07/2018 escitalopram oxalate (LEXAPRO) 20 mg Oral Tablet Take 1 Tab by mouth daily. 30 Tab 2 02/03/2018 06/13/2018 documented in this encounter Progress Notes * Dallin Chou PA-C - 02/03/2018 3:15 PM EDT Chief Complaint Patient presents with ??? Mass pt has a knot on her left shoulder x 2 days ??? Depression depression med not working anymore ( lexapro) HPI: Currently on lexapro at 10 mg daily since august after spouse July 2017 Symptoms were well controlled but recently starting having fragile emotions for about 1 month Also, woke with pain in left upper trap yesterday, that has only mildly improved today Tenderness locally No trauma or overuse hx Past Medical History: Diagnosis Date ??? Bile [...] ??? COLONOSCOPY 01/12/2018 Dr. Aaron Rocha, with [facility]. Normal colon ??? UPPER GASTROINTESTINAL ENDOSCOPY 12/04/2017 at , Dr. Aaron Rocha See time date stamps in the EMR for other pertient history components reviewed as part of today's encounter. Review of Systems Constitutional: Negative for appetite change, chills, fatigue and fever. HENT: Negative for trouble swallowing. Respiratory: Negative for cough. Cardiovascular: Negative for palpitations. Gastrointestinal: Negative for abdominal pain and nausea. Musculoskeletal: Negative for arthralgias and myalgias. Skin: Negative for rash. Neurological: Negative for light-headedness and headaches. Psychiatric/Behavioral: The patient is not nervous/anxious. Vitals: 02/03/18 1500 BP: 118/76 BP Location: Right arm Patient Position: Sitting Pulse: 74 Temp: 98 ??F (36.7 ??C) TempSrc: Oral SpO2: 99% Weight: 141 lb (64 kg) Height: 5' 5 (1.651 m) Physical [...] this visit: Adjustment disorder with depressed mood Strain of left trapezius muscle, initial encounter - naproxen (NAPROSYN) 500 mg Oral Tablet; Take 1 Tab by mouth 2 times daily (with meals). Dispense:60 Tab; Refill: 2 Other orders - escitalopram oxalate (LEXAPRO) 20 mg Oral Tablet; Take 1 Tab by mouth daily. Dispense: 30 Tab; Refill: 2 Ice and heat applic Stop ASA shile on NSAID, then restart Changing lexapro to 20 mg daily Return in about 2 weeks (around 02/17/2018). [facility] Documentation [facility] Flowsheet was completed/reviewed as part of today's visit. Educated patient regarding the diagnosis, medication/treatment, goals, self- management tools and instructions based on their care plan. They verbalized understanding of the education given on the After Visit Summary [AVS] for today's visit. A copy of the AVS was provided either in writing and/or via [employer]. A new medicine was prescribed during this [...] Patient Instructions - Dallin Chou PA-C - 02/03/2018 3:31 PM EDT Images from the original note were not included. Patient Education Muscle Strain A muscle strain is an injury that occurs when a muscle is stretched beyond its normal length. Usually a small number of muscle fibers are torn when this happens. Muscle strain is rated in degrees. First-degree strains have the least amount of muscle fiber tearing and pain. Second-degree and third-degree strains have increasingly more tearing and pain. Usually, recovery from muscle strain takes 1-2 weeks. Complete healing takes 5-6 weeks. What are the causes? Muscle strain happens when a sudden, violent force placed on a muscle stretches it too far. This may occur with lifting, sports, or a fall. What increases the risk? Muscle strain is especially common in athletes. What are the signs or symptoms? At the site of the muscle strain, there may be: ?? Pain. ?? Bruising. ?? Swelling. ?? Difficulty using the muscle due to pain or lack of normal function. How is this diagnosed? Your health care provider will perform a physical exam and ask about your medical history. How is this treated? Often, the best treatment for a muscle strain is resting, icing, and applying cold compresses to the injured area. Follow these instructions at home: ?? Use the ALBERT method of treatment to promote muscle healing during the first 2-3 days after yourinjury. The ALBERT method involves: ?? Protecting the muscle from being injured again. ?? Restricting your activity and resting the injured body part. ?? Icing your injury. To do this, put ice in a plastic bag. Place a towel between your skin and thebag. Then, apply the ice and leave it on from 15-20 minutes each hour. After the third day, switch to moist heat packs. ?? Apply compression to the injured area with a splint or elastic bandage. Be careful not to wrap it too tightly. This may interfere with blood circulation or increase swelling. ?? Elevate the injured body part above the level of your heart as often as you can. ?? Only take [id number] or prescription medicines for pain, discomfort, or fever as directed by your health care provider. ?? Warming up prior to exercise helps to prevent future muscle strains. Contact a health care provider if: ?? You have increasing pain or swelling in the injured area. ?? You have numbness, tingling, or a significant loss of strength in the injured area. This information is not intended to replace advice given to you by your health care provider. Make sure you discuss any questions you have with your health care provider. Document Released: 04/07/2006 Document Revised: 09/12/2016 Document Reviewed: 11/04/2013 [employer] Interactive Patient Education ?? 2017 [employer]. documented in this encounter Plan of Treatment Upcoming Encounters Date Type Department Care Team (Late st Contact Info) Description 04/24/2024 10:45 AM EST Clinical Support [facility] [address] [place] [phone] documented as of this encounter Goals Goal Patient Goal Type Associated Problems Recent Progress Patient-Stated? Author Maintain a healthy diet, exercise regularly and maintain an ideal body weight General No Thea Rubio MD Stay Tobacco Free Lifestyle Thea Hickman MD documented as of this encounter Visit Diagnoses Diagnosis Adjustment disorder with depressed mood- Primary Strain of left trapezius muscle, initial encounter documented in this encounter Discontinued Medications Medication Sig Discontinue Reason Start Date End Da te escitalopram oxalate (LEXAPRO) 10 mg Oral TabletIndications:Grief reaction Take 1 Tab by mouth daily. Dose adjustment 01/04/2018 02/03/2018 documented as of this encounter Additional Health Concerns Assessment Noted Time PHQ-9 Depression Total Score: 2 10/07/19 18 8:00 AM EDT PHQ-2 Depression Total Score: 2 10/07/19 18 8:00 AM EDT documented as of this encounter Care Teams Gyn Relationship Specialty Start Date End Date Thea Rubio MD PCP - General Family Medicine 09/13/14 07/16/22 documented as of this encounter
--- OUTSIDE RECORDS SUMMARY | 2024-03-14 18:20 | XMS_ITS | Encounter Summary ---
Author Organization [place] [address] Care Team Providers Care Research Geologist Name Role Phone Thea Rubio MD Primary Care Provider +1- [phone] Reason for Visit * Reason Onset Date Comments ED Follow-Up Call 11/18/2017 Care Management - Chart Review 11/18/2017 Encounter Details Date Type Department Care Team (Late st Contact Info) Description 11/18/2017 Patient Outreach [facility] [address] [place] [address] Thea Rubio MD [address] [place], [place] [id number] ED Follow-Up Call; Care Management - Chart Review Social History Tobacco Use Types Packs/Day Years [...] as of this encounter Progress Notes * Sparkle Ghotra MA - 11/18/2017 1:42 PM EDT ED Follow Up Regarding the most recent emergency room visit: Appropriate for follow up?: Yes Contact made?: Yes Medical reason for visit: chest pain Are you feeling better?: Yes Were you able to, or did you try to, reach us prior to deciding to go to the ED?: Yes Were you aware that we always have a provider conservation of resources commissioner and offer eVisits?: Yes Reason you chose to go to ED as site for your medical care?: Severity of Illness Did you get a prescription, or were your medications changed?: Yes Did you get it filled?: Yes If patient is unable to fill medications, please consider a social work consult if criteria met: Would you like to follow up with your PCP?: Yes Do you have any additional concerns that we have not discussed that I can help you with?: No documented in this encounter Plan of Treatment Upcoming Encounters Date Type Department Care Team (Late st Contact Info) Description 04/24/2024 10:45 AM EST Clinical Support [facility] [address] [place] [phone] documented as of this encounter Goals Goal [...] documented as of this encounter Care Teams Research Geologist Relationship Specialty Start Date End Date Thea Rubio MD PCP - General Family Medicine 09/13/14 07/16/22 documented as of this encounter
--- OUTSIDE RECORDS SUMMARY | 2024-03-14 18:20 | XMS_ITS | Encounter Summary ---
Author Organization [place] [address] Care Team Providers Care Clinical Training Coordinator Name Role Phone Thea Rubio MD Primary Care Provider +1- [phone] Encounter Details Date Type Department Care Team (Latest Contact Info) Description 03/05/2018 2:53 PM EST - 03/05/2018 11:59 PM EST Hospital Encounter [facility] [address] [phone] [facility] Amenorrhea Discharge Disposition: Home or Self Care Social [...] 04/24/2024 10:45 AM EST Clinical Support [facility] [address] [place] [address] documented as of this encounter Goals Goal Patient Goal Type Associated Problems Recent Progress Patient-Stated? Author Maintain a healthy diet, exercise regularly and maintain an ideal body weight General No Thea Rubio MD Stay Tobacco Free Lifestyle No Thea Rubio MD documented as of this encounter Procedures Procedure Name Priority Date/Time Associated Diagnosis Comments HCG QUALITATIVE Routine 03/05/2018 2:54 PM EST Amenorrhea documented in this encounter Results * HCG QUALITATIVE (03/05/2018 2:54 PM EST) HCG QUAL Negative 03/05/2018 6:21 PM EST [facility] VENOUS BLOOD / Unknown Venipuncture / Unknown 03/05/2018 2:54 PM EST 03/05/2018 2:54 PM EST Narrative [facility] - 03/05/2018 6:21 PM EST Ingestion of abimael doses of biotin (>5 mg/day) taken within 8 hours of drawing blood sample can interfere with this immunoassay test. us Thea Rubio MD CHEMISTRY ORDERABLES Final Result [facility] [address] [facility] , [place] [address] documented in this encounter Visit Diagnoses Diagnosis Amenorrhea Absence of menstruation documented in this encounter Additional Health Concerns Assessment Noted Time PHQ-9 Depression Total Score: 2 10/07/19 18 8:00 AM EDT PHQ-2 Depression Total Score: 2 10/07/19 18 8:00 AM EDT documented as of this encounter Care Teams Clinical Training Coordinator Relationship Specialty Start Date End Date Thea Rubio MD PCP - General Family Medicine 09/13/14 07/16/22 documented as of this encounter
--- OUTSIDE RECORDS SUMMARY | 2024-03-14 18:20 | XMS_ITS | Encounter Summary ---
Author Organization [place] [address] Care Team Providers Care Mercantile Agent Name Role Phone Thea Rubio MD Primary Care Provider +1- [phone] Encounter Details Date Type Department Care Team (Latest Contact Info) Description 01/28/2018 2:51 PM EDT - 01/28/2018 11:59 PM EDT Hospital Encounter [facility] [address] [phone] [facility], [facility] Iron deficiency anemia, unspecified iron deficiency anemia type Discharge Disposition: Home or Self Care [...] Clinical Support [facility] [address] [place] [address] documented as of this encounter Goals Goal Patient Goal Type Associated Problems Recent Progress Patient-Stated? Author Maintain a healthy diet, exercise regularly and maintain an ideal body weight General No Thea Rubio MD Stay Tobacco Free Lifestyle No Thea Rubio MD documented as of this encounter Procedures Procedure Name Priority Date/Time Associated Diagnosis Comments IRON/UIBC Routine 01/28/2018 2:52 PM EDT Iron deficiency anemia, unspecified iron deficiency anemia type CBC WITH DIFF Routine 01/28/2018 2:52 PM EDT Iron deficiency anemia, unspecified iron deficiency anemia type documented in this encounter Results * (ABNORMAL) IRON/UIBC (01/28/2018 2:52 PM EDT) Iron 82 30 - 160 mcg/dL 01/28/2018 7:38 PM EDT [facility] UIBC 363(H) 112 - 347 mcg/dL 01/28/2018 7:38 PM EDT [facility] Transferrin Sat 18(L) 20 - 50 % 8 7:38 PM EDT [facility] Blood Venipuncture / Unknown 01/28/2018 2:52 PM EDT 01/28/2018 2:52 PM EDT us Thea Rubio MD CHEMISTRY ORDERABLES Final Result [facility] [address] [facility] , [place] [address] * (ABNORMAL) CBC WITH DIFF (01/28/2018 2:52 PM EDT) WBC 5.9 3.7 - 10.3 x10(3)/mcL 01/28/2018 7:04 PM EDT [facility] RBC 4.11 3.90 - 5.20 x10(6)/mcL 01/28/2018 7:04 PM EDT [facility] Hgb 10.9(L) 11.2 - 15.7 g/dL 01/28/2018 7:04 PM EDT [facility] Hct 35.3 34.0 - 45.0 % 01/28/2018 7:04 PM EDT [facility] MCV 85.9 79.0 - 98.0 fL 01/28/2018 7:04 PM EDT [facility] MCH 26.5 26.0 - 32.0 pg 01/28/2018 7:04 PM EDT [facility] MCHC 30.9 30.7 - 35.5 g/dL 01/28/2018 7:04 PM EDT [facility] RDW 17.6(H) <=14.9 % 01/28/2018 7:04 PM EDT [facility] Platelet 347 155 - 369 x10(3)/mcL 01/28/2018 7:04 PM EDT [facility] MPV 10.4 8.8 - 12.5 fL 01/28/2018 7:04 PM EDT [facility] Neut Percent 57.6 % 01/28/2018 7:04 PM EDT [facility] Comment:Neutrophils equals s egs plus bands Imm Gran% 0.3 % 01/28/2018 7:04 PM EDT [facility] Comment:Automated count of m etamyelocytes, myelocytes and promyelocytes. Lymph Percent 27.0 % 01/28/2018 7:04 PM EDT [facility] Hyde Percent 7.8 % 01/28/2018 7:04 PM EDT [facility] Eos Percent 6.8 % 01/28/2018 7:04 PM EDT [facility] Baso Percent 0.5 % 01/28/2018 7:04 PM EDT [facility] Neut # 3.4 1.6 - 6.1 x10(3)/mcL 01/28/2018 7:04 PM EDT [facility] Comment:Neutrophils equals s egs plus bands IMMGRAN# 0.0 0.0 - 0.1 x10(3)/mcL 01/28/2018 7:04 PM EDT [facility] Comment:Automated count of m etamyelocytes, myelocytes and promyelocytes. An absolute IG <0.1 is reported as 0.0. Lymph # 1.6 1.2 - 3.9 x10(3)/mcL 01/28/2018 7:04 PM EDT [facility] Hyde # 0.5 0.3 - 0.9 x10(3)/mcL 01/28/2018 7:04 PM EDT [facility] Eos# 0.4 0.0 - 0.5 x10(3)/mcL 01/28/2018 7:04 PM EDT [facility] Baso # 0.0 0.0 - 0.1 x10(3)/mcL 01/28/2018 7:04 PM EDT [facility] Blood Venipuncture / Unknown 01/28/2018 2:52 PM EDT 01/28/2018 2:52 PM EDT us Thea Rubio MD HEMATOLOGY ORDERABLES Antonia l Result [facility] [address] [facility] , [place] [address] documented in this encounter Visit Diagnoses Diagnosis Iron deficiency anemia, unspecified iron deficiency anemia type documented in this encounter Additional Health Concerns Assessment Noted Time PHQ-9 Depression Total Score: 2 10/07/19 18 8:00 AM EDT PHQ-2 Depression Total Score: 2 10/07/19 18 8:00 AM EDT documented as of this encounter Care Teams Mercantile Agent Relationship Specialty Start Date End Date Thea Rubio MD PCP - General Family Medicine 09/13/14 07/16/22 documented as of this encounter
--- OUTSIDE RECORDS SUMMARY | 2024-03-14 18:20 | XMS_ITS | Encounter Summary ---
Author Organization [place] [address] Care Team Providers Care Component Design Engineer Name Role Phone Thea Rubio MD Primary Care Provider +1- [phone] Reason for Visit * Reason Onset Date Comments Results 12/17/2017 Encounter Details Date Type Department Care Team (Late st Contact Info) Description 12/17/2017 Telephone [facility] [address] [place] [address] Thea Rubio MD [address] [place] [address] [phone] Results Social History Tobacco Use Types Packs/Day [...] Telephone Encounter - Thea Rubio MD - 12/17/2017 7:17 PM EDT See notes on lab * Telephone Encounter - Mima Thompson - 12/17/2017 3:00 PM EDT Pt Calling To Ask if You Have Her BW Results Yet That She had Done Yesterday? documented in this encounter Plan of Treatment Upcoming Encounters Date Type Department Care Team (Late st Contact Info) Description 04/24/2024 10:45 AM EST Clinical Support [facility] [address] [place] [address] documented as of this encounter [...] documented as of this encounter Care Teams Component Design Engineer Relationship Specialty Start Date End Date Thea Rubio MD PCP - General Family Medicine 09/13/14 07/16/22 documented as of this encounter
--- OUTSIDE RECORDS SUMMARY | 2024-03-14 18:20 | XMS_ITS | Encounter Summary ---
Author Organization [place] [address] Care Team Providers Care Maintenance Carpenter Name Role Phone Thea Rubio MD Primary Care Provider [phone] Reason for Visit * Reason Comments Exposure to STD Encounter Details Date Type Department Care Team (Late st Contact Info) Description 04/15/2018 10:15 AM EST Office Visit [facility] [address] [address] [address] [place] [id number] Gary White, DO [address] [facility] [facility] [address] [place] [address] Possible exposure to STD (Primary Dx); Vaginal discharge Social History Tobacco Use Types Packs/Day Years [...] Sign Reading Time Taken Comments Blood Pressure 133/84 04/15/2018 10:27 AM EST Pulse 90 04/15/2018 10:27 AM EST Temperature 36.8 ??C (98.2 ??F) 04/15/2018 10:[address] Respiratory Rate 16 04/15/2018 10:27 AM EST Oxygen Saturation 97% 04/15/2018 10:27 AM EST Inhaled Oxygen Concentration - - Weight 66.7 kg (147 lb) 04/15/2018 10:27 AM EST Height 165.1 cm (5' 5 ) 04/15/2018 10:27 AM EST Body Mass Index 24.46 04/15/2018 10:27 AM EST documented in this encounter Ordered Prescriptions Prescription Sig Dispense Quantity Refills Last Filled Start Date End Date fluconazole (DIFLUCAN) 150 mg Oral TabletIndications:V aginal discharge Take 1 Tab by mouth once for 1 dose. 1 Tab 04/15/2018 04/15/2018 documented in this encounter Progress Notes * Gary White DO - 04/15/2018 10:15 AM EST Subjective Chief Complaint Patient presents with ??? Exposure to STD Urgent Care Encounter HPI Patient is a 38 y.o. female here for possible exposure to STD. She states her one male sexual partner complained of stinging with urination and she went to be checked for STDs. She states he has not been checked for STDs he denies any known exposure or other sexual partners. She denies any other sexual partners. She denies any symptoms to include vaginal discharge, vaginal pain, abdominal pain, fever, chills, nausea, vomiting. Denies pain with urination. She denies history of STDs. She denies being . She states her last menstrual period was 3 weeks ago and was normal. Review of Systems Constitutional: Negative for chills and fever. Gastrointestinal: Negative for nausea and vomiting. Genitourinary: Negative for menstrual problem, vaginal bleeding, vaginal discharge and vaginal pain. Patient Active Problem List Diagnosis ??? Congenital biliary atresia ??? Migraine without aura ??? Celiac artery stenosis (HCC) ??? Precordial pain ??? ASCUS of cervix with negative high risk HPV ??? ASD (atrial septal defect) ??? Anemia ??? Cyanocobalamin deficiency No outpatient prescriptions have been marked as taking for the 04/15/18 encounter (Office Visit) with Gary White DO. Allergies Allergen Reactions ??? Latex Rash ??? Morphine Nausea And Vomiting Social Social History Social History ??? Marital status: Spouse name: N/A ??? Number of children: N/A ??? Years of education: N/A Social History Main Topics ??? Smoking status: Former Smoker Packs/day: 0.50 Years: 0.20 Quit date: 04/21/1994 ??? Smokeless tobacco: Never Used ??? Alcohol use No ??? Drug use: No ??? Sexual activity: Yes Partners: Male Other Topics Concern ??? None Social History [...] History Administered Date(s) Administered ??? Tdap 09/26/2015 Patient Care Team: Thea Rubio MD as PCP - General (Family Medicine) Objective Vitals: 04/15/18 1027 BP: 133/84 BP Location: Left arm Patient Position: Sitting Pulse: 90 Resp: 16 Temp: 98.2 ??F (36.8 ??C) SpO2: 97% Weight: 147 lb (66.7 kg) Height: 5' 5 (1.651 m) Physical Exam Constitutional: She appears well-developed and well-nourished. No distress. Abdominal: Soft. Bowel sounds are normal. She exhibits no distension. There is no tenderness. Thereis no rebound and no guarding. Genitourinary: There is no rash, tenderness or lesion on the right labia. There is no rash, tenderness or lesion on the left labia. No erythema, tenderness or bleeding in the vagina. No signs of injury around the vagina. Vaginal discharge (White creamy discharge of the vaginal canal. There is no friable tissue or bleeding. Nontender. Negative chandelier's test.) found. Skin: She is not diaphoretic. exam done with female co-worker in room, Heidi MACIAS. Results for orders placed or performed in visit on 04/15/18 CHLAMYDIA/GC *Canceled* Narrative The following orders were created for panel order CHLAMYDIA/GC. Procedure Abnormality Status --------- ------ CHLAMYDIA/GC BY TMA[[id number]] Please view results for these tests on the individual orders. CHLAMYDIA/GC Narrative The following orders were created for panel order CHLAMYDIA/GC. Procedure Abnormality Status --------- ------ CHLAMYDIA/GC BY TMA[[id number]] In process Please view results for these tests on the individual orders. Assessment and Plan Gardenia was seen today for exposure to std. Diagnoses and all orders for this visit: Possible exposure to STD - TRICHOMONAS VAGINALIS BY TMA; Future - Cancel: CHLAMYDIA/GC; Future - Cancel: CHLAMYDIA/GC BY TMA - VAGINAL PANEL; Future - Cancel: CHLAMYDIA/GC; Future - CHLAMYDIA/GC BY TMA - HIV AG/AB; Future - SYPHILIS SCREEN WITH REFLEX RPR QUANT; Future - ACUTE HEPATITIS PANEL; Future Vaginal discharge - fluconazole (DIFLUCAN) 150 mg Oral Tablet; Take 1 Tab by mouth once for 1 dose. On exam discharge seem consistent with yeast infection. Will start treatment today. Await results. 1. Patient has been instructed that if any acute problems worsen or fail to improve that they should contact primary care physician or urgent care. If acutely worsens or unable to reach a physician (and is an emergency) go to emergency room. 2. New medications, if ordered, have been reviewed and possible side effects discussed with patienttoday. 3. Patient expressed verbal understanding of above assessment and plan. Return if symptoms worsen or fail to improve. Education provided regarding the care plan and instructions listed on the After Visit Summary [AVS]for today's visit. This chart was completed using [employer] voice recognition technology and may contain unintended errors. Gary White DO documented in this encounter Miscellaneous Notes * Patient Instructions - Gary White DO - 04/15/2018 11:27 AM EST Images from the original note were not included. Patient Education Vaginitis Vaginitis is an inflammation of the vagina. It can happen when the normal bacteria and yeast in thevagina grow too much. There are different types. Treatment will depend on the type you have. Follow these instructions at home: ?? Take all medicines as told by your doctor. ?? Keep your vagina area clean and dry. Avoid soap. Rinse the area with water. ?? Avoid washing and cleaning out the vagina (douching). ?? Do not use tampons or have sex (intercourse) until your treatment is done. ?? Wipe from front to back after going to the restroom. ?? Wear cotton underwear. ?? Avoid wearing underwear while you sleep until your vaginitis is gone. ?? Avoid tight pants. Avoid underwear or nylons without a cotton panel. ?? Take off wet clothing (such as a bathing suit) as soon as you can. ?? Use mild, unscented products. Avoid fabric softeners and scented: ?? Feminine sprays. ?? Laundry detergents. ?? Tampons. ?? Soaps or bubble baths. ?? Practice safe sex and use condoms. Get help right away if: ?? You have belly (abdominal) pain. ?? You have a fever or lasting symptoms for more than 2-3 days. ?? You have a fever and your symptoms suddenly get worse. This information is not intended to replace advice given to you by your health care provider. Make sure you discuss any questions you have with your health care provider. Document Released: 07/04/2009 Document Revised: 09/12/2016 Document Reviewed: 09/17/2012 [employer] Interactive Patient Education ?? 2017 [employer]. Patient Education Sexually Transmitted Disease A sexually transmitted disease (STD) is a disease or infection that may be passed (transmitted) from person to person, usually during sexual activity. This may happen by way of saliva, semen, blood, vaginal mucus, or urine. Common STDs include: ?? Gonorrhea. ?? Chlamydia. ?? Syphilis. ?? HIV and AIDS. ?? Genital herpes. ?? Hepatitis B and C. ?? Trichomonas. ?? Human papillomavirus (HPV). ?? Pubic lice. ?? Scabies. ?? Mites. ?? Bacterial vaginosis. What are the causes? An STD may be caused by bacteria, a virus, or parasites. STDs are often transmitted during sexual activity if one person is infected. However, they may also be transmitted through nonsexual means. STDs may be transmitted after: ?? Sexual intercourse with an infected person. ?? Sharing sex toys with an infected person. ?? Sharing needles with an infected person or using unclean piercing or tattoo needles. ?? Having intimate contact with the genitals, mouth, or rectal areas of an infected person. ?? Exposure to infected fluids during . What are the signs or symptoms? Different STDs have different symptoms. Some people may not have any symptoms. If symptoms are present, they may include: ?? Painful or bloody urination. ?? Pain in the pelvis, abdomen, vagina, anus, throat, or eyes. ?? A skin rash, itching, or irritation. ?? Growths, ulcerations, blisters, or sores in the genital and anal areas. ?? Abnormal vaginal discharge with or without bad odor. ?? Penile discharge in men. ?? Fever. ?? Pain or bleeding during sexual intercourse. ?? Swollen glands in the groin area. ?? Yellow skin and eyes (jaundice). This is seen with hepatitis. ?? Swollen testicles. ?? Infertility. ?? Sores and blisters in the mouth. How is this diagnosed? To make a diagnosis, your health care provider may: ?? Take a medical history. ?? Perform a physical exam. ?? Take a sample of any discharge to examine. ?? Swab the throat, cervix, opening to the penis, rectum, or vagina for testing. ?? Test a sample of your first morning urine. ?? Perform blood tests. ?? Perform a Pap test, if this applies. ?? Perform a colposcopy. ?? Perform a laparoscopy. How is this treated? Treatment depends on the STD. Some STDs may be treated but not cured. ?? Chlamydia, gonorrhea, trichomonas, and syphilis can be cured with antibiotic medicine. ?? Genital herpes, hepatitis, and HIV can be treated, but not cured, with prescribed medicines. Themedicines lessen symptoms. ?? Genital warts from HPV can be treated with medicine or by freezing, burning (electrocautery), orsurgery. Warts may come back. ?? HPV cannot be cured with medicine or surgery. However, abnormal areas may be removed from the cervix, vagina, or vulva. ?? If your diagnosis is confirmed, your recent sexual partners need treatment. This is true even ifthey are symptom-free or have a negative culture or evaluation. They should not have sex until their health care providers say it is okay. ?? Your health care provider may test you for infection again 3 months after treatment. How is this prevented? Take these steps to reduce your risk of getting an STD: ?? Use latex condoms, dental dams, and water-soluble lubricants during sexual activity. Do not use petroleum jelly or oils. ?? Avoid having multiple sex partners. ?? Do not have sex with someone who has other sex partners. ?? Do not have sex with anyone you do not know or who is at high risk for an STD. ?? Avoid risky sex practices that can break your skin. ?? Do not have sex if you have open sores on your mouth or skin. ?? Avoid drinking too much alcohol or taking illegal drugs. Alcohol and drugs can affect your judgment and put you in a vulnerable position. ?? Avoid engaging in oral and anal sex acts. ?? Get vaccinated for HPV and hepatitis. If you have not received these vaccines in the past, talk to your health care provider about whether one or both might be right for you. ?? If you are at risk of being infected with HIV, it is recommended that you take a prescription medicine daily to prevent HIV infection. This is called pre- exposure prophylaxis (PrEP). You are considered at risk if: ?? You are a man who has sex with other men (MSM). ?? You are a heterosexual man or woman and are sexually active with more than one partner. ?? You take drugs by injection. ?? You are sexually active with a partner who has HIV. ?? Talk with your health care provider about whether you are at high risk of being infected with HIV. If you choose to begin PrEP, you should first be tested for HIV. You should then be tested every 3 months for as long as you are taking PrEP. Contact a health care provider if: ?? See your health care provider. ?? Tell your sexual partner(s). They should be tested and treated for any STDs. ?? Do not have sex until your health care provider says it is okay. Get help right away if: Contact your health care provider right away if: ?? You have severe abdominal pain. ?? You are a man and notice swelling or pain in your testicles. ?? You are a woman and notice swelling or pain in your vagina. This information is not intended to replace advice given to you by your health care provider. Make sure you discuss any questions you have with your health care provider. Document Released: 06/28/2003 Document Revised: 10/25/2016 Document Reviewed: 10/26/2013 [employer] Interactive Patient Education ?? 2018 [employer] documented in this encounter Plan of Treatment Upcoming Encounters Date Type Department Care Team (Late st Contact Info) Description 04/24/2024 10:45 AM EST Clinical Support [facility] [address] [place] [address] documented as of this encounter Goals Goal Patient Goal Type Associated Problems Recent Progress Patient-Stated? Author Maintain a healthy diet, exercise regularly and maintain an ideal body weight General No Thea Rubio MD Stay Tobacco Free Lifestyle No Thea Rubio MD documented as of this encounter Procedures Procedure Name Priority Date/Time Associated Diagnosis Comments CHLAMYDIA/GC Routine 04/15/2018 11:17 AM EST Possible exposure to STD VAGINAL PANEL Routine 04/15/2018 11:17 AM EST Possible exposure to STD CHLAMYDIA/GC BY TMA Routine 04/15/2018 1 1:17 AM EST Possible exposure to STD TRICHOMONAS VAGINALIS BY TMA Routine 04/15/2018 10:31 AM EST Possible exposure to STD documented in this encounter Results * ACUTE HEPATITIS PANEL (04/15/2018 11:31 AM EST) Hep Bs Ag Non-Reacti ve Non-Reacti ve 04/15/2018 3:42 PM EST [facility] Hep B Core IgM Non-Reacti ve Non-Reacti ve 04/15/2018 3:42 PM EST [facility] Hep A IgM Non-Reacti ve Non-Reacti ve 04/15/2018 3:42 PM EST [facility] Hep C Ab Non-Reacti ve Non-Reacti ve 04/15/2018 3:42 PM EST [facility] [employer] Blood VENOUS BLOOD / Unknown Venipuncture / Unknown 04/15/2018 11:31 AM EST 04/15/2018 11:31 AM EST us Gary White DO CHEMISTRY ORDERABLES Final Res ult Performing Organization Address [facility] de Phone Number [facility] [employer] [facility] [address] , [place] [address] * SYPHILIS SCREEN WITH REFLEX RPR QUANT (04/15/2018 11:31 AM EST) Trep Ab Index 0.07 <=0.99 Index Value 04/15/2018 3:39 PM EST [facility] [employer] Comment: < 1.00 - Negative ?? >=1.00 - Positive NOTE: ??All positive results will be reflexed to Quantitative Non-Treponemal(RPR)test. ?? Blood VENOUS BLOOD / Unknown Venipuncture / Unknown 04/15/2018 11:31 AM EST 04/15/2018 11:31 AM EST us Gary White DO CHEMISTRY ORDERABLES Final Res ult Performing Organization Address [facility] de Phone Number [facility] [employer] [facility] [address] , [place] [address] * HIV AG/AB (04/15/2018 11:31 AM EST) HIV Ag/AB Non-Reacti ve Non-Reactive, See Footnote 04/15/2018 3:42 PM EST [employer] Blood VENOUS BLOOD / Unknown Venipuncture / Unknown 04/15/2018 11:31 AM EST 04/15/2018 11:31 AM EST us Gary White DO IMMUNOLOGY ORDERABLES Final Re sult Performing Organization Address City/[facility] Co de Phone Number [facility] [employer] [facility] [address] , [place] [address] * CHLAMYDIA/GC BY TMA (04/15/2018 11:17 AM EST) Chlamydia trachomatis Not Detected Not Detected 04/16/2018 2:17 AM EST [facility] Neisseria gonorrhoeae Not Detected Not Detected 04/16/2018 2:17 AM EST [facility] [employer] [facility] Swab SPECIMEN FROM UTERINE CERVIX / Unknown 04/15/2018 11:17 AM EST 04/15/2018 11:17 AM EST Narrative [facility] [employer] [facility] - 04/16/2018 2:17 AM EST Testing methodology is food vendor mediated amplification (TMA) using the Aptima Combo 2 assay from [employer]. A negative result does not completely rule out a Chlamydia trachomatis or Neisseria gonorrhoeae infection due to potential inhibitors or levels present below the limit of detection by this assay.?? Results are dependent on proper collection and transport of specimen. This test is indicated for medical purposes only and should not be used for legal or forensic purposes. The performance characteristics of this test were validated by [facility] laboratory. This assay is FDA cleared to test the following specimens: clinician-collected endocervical, vaginal and male urethral swab specimens, patient collected vaginal specimens within a clinic setting, Thin Prep Specimens in [employer], and first-stream, unpreserved male urine specimens. Testing on female urine is not FDA approved by this methodology, but has been developed and validated by the [facility] laboratory.?? Detailed methodology is available upon request. Gary White DO MICROBIOLOGY - GENERAL ORDERAB LES Final Result [facility] [employer] [facility] [address] , [place] [address] * (ABNORMAL) VAGINAL PANEL (04/15/2018 11:17 AM EST) Pathologist [facility] Brenda Species DNA probe Negative Negative 04/16/2018 9:36 PM EST [employer] Comment: Performed by [employer], [address] [place] [id number] [email or web address], Vinayak Barrera MD, Lab. Director Gardnerella Vaginalis DNAprobe Positive(A) Negative 04/16/2018 9:36 PM EST [employer] Trichomonas Vaginalis DNA probe Negative Negative 04/16/2018 9:36 PM EST [employer] Comment: INTERPRETIVE DATA: Vaginal Pathogen Panel by DNA Probe All test results should be correlated with clinical history. Swab SPECIMEN FROM VAGINA / Unknown 04/15/2018 11:17 AM EST 04/15/2018 11:17 AM EST Gary White DO MICROBIOLOGY - GENERAL ORDERAB LES Final Result Performing Organization Address City/[facility]/ZIP Co de Phone Number [employer] [employer] [address] [place] [address] * TRICHOMONAS VAGINALIS BY TMA (04/15/2018 10:31 AM EST) Trichomonas vaginalis by TMA Not Detected Not Detected 04/16/2018 3:41 AM EST [facility] [employer] Urine 04/15/2018 10:3 1 AM EST 04/15/2018 10:31 AM EST Narrative [facility] [employer] - 04/16/2018 3:41 AM EST Test methodology is food vendor mediated amplification (TMA) using the Aptima Trichomonas vaginalis assay from [employer]. A negative result does not completely rule out a Trichomonas vaginalis infection due to potential inhibitors or levels present below the limit of detection of this assay. ??Results are dependent on proper collection and transport of specimen. ??This test is indicated for medical purposes only and should not be used for legal or forensic purposes. The performance characteristics of this test were validated by [facility]. ??This assay is FDA cleared to test the following specimens: ??clinician-collected endocervical and vaginal swab specimens, and clinician collected gynecological specimens collected in [employer]. ??Testing on first catch male and female urine is not FDA approved by this methodology, but has been developed and validated by the [facility]. ??Detailed methodology is available upon request. us Gary White DO MICROBIOLOGY - GENERAL ORDERAB LES Final Result Performing Organization Address City/[facility]/ZIP Co de Phone Number [facility] [address] [facility] [address] , [place] [address] documented in this encounter Visit Diagnoses Diagnosis Possible exposure to STD- Primary Other specified personal history presenting hazards to health Vaginal discharge Leukorrhea, not specified as infective documented in this encounter Additional Health Concerns Assessment Noted Time PHQ-9 Depression Total Score: 2 10/07/19 18 8:00 AM EDT PHQ-2 Depression Total Score: 2 10/07/19 18 8:00 AM EDT documented as of this encounter Care Teams Maintenance Carpenter Relationship Specialty Start Date End Date Thea Rubio MD PCP - General Family Medicine 09/13/14 07/16/22 documented as of this encounter
--- OUTSIDE RECORDS SUMMARY | 2024-03-14 18:20 | XMS_ITS | Encounter Summary ---
Author Organization [facility] [place] [address] Care Team Providers Care Truck Safety Inspector Name Role Phone Thea Rubio MD Primary Care Provider [phone]- [phone] Encounter Details Date Type Department Care Team (Late st Contact Info) Description 12/17/2017 [facility] Only [facility] [address] [place] [address] Thea Rubio MD [address] [place], [place] [id number] Iron deficiency anemia, unspecified iron deficiency anemia type (Primary Dx); Cyanocobalamin deficiency Social History Tobacco Use Types [...] Refills Last Filled Start Date End Date cyanocobalamin (VITAMIN B-12) 500 mcg Oral TabletIndications:C yanocobalamin deficiency Take 1 Tab by mouth once a week. 12/17/2017 09/21/2018 ferrous sulfate 325 mg (65 mg iron) Oral TabletIndications:I aide deficiency anemia, unspecified iron deficiency anemia type Take 1 Tab by mouth daily. 12/17/2017 12/16/2019 documented in this encounter Plan of Treatment Upcoming Encounters Date Type Department Care Team (Late st Contact Info) Description 04/24/2024 10:45 AM EST Clinical Support [facility] [address] [place] [address] documented as of this encounter Goals Goal Patient Goal Type Associated Problems Recent Progress Patient-Stated? Author Maintain a healthy diet, exercise regularly and maintain an ideal body weight General No Thea Rubio MD Stay Tobacco Free Lifestyle No Thea Rubio MD documented as of this encounter Results * (ABNORMAL) IRON/UIBC (01/28/2018 2:52 PM EDT) Iron 82 30 - 160 mcg/dL 01/28/2018 7:38 PM EDT [facility] UIBC 363(H) 112 - 347 mcg/dL 01/28/2018 7:38 PM EDT [facility] Transferrin Sat 18(L) 20 - 50 % 8 7:38 PM EDT [facility] Blood Venipuncture / Unknown 01/28/2018 2:52 PM EDT 01/28/2018 2:52 PM EDT us Thea Rubio MD CHEMISTRY ORDERABLES Final Result [facility] [facility] , [place] [address] * (ABNORMAL) CBC WITH DIFF (01/28/2018 2:52 [...] 01/28/2018 7:04 PM EDT [facility] MCHC 30.9 30.7 - 35.5 g/dL 01/28/2018 7:04 PM EDT [facility] RDW 17.6(H) <=14.9 % 01/28/2018 7:04 PM EDT [facility] Platelet 347 155 - 369 x10(3)/mcL 01/28/2018 7:04 PM EDT [facility] MPV 10.4 8.8 - 12.5 fL 01/28/2018 7:04 PM EDT [facility] Neut Percent 57.6 % 01/28/2018 7:04 PM EDT [facility] Comment:Neutrophils equals s egs plus bands Imm Gran% 0.3 % 01/28/2018 7:04 PM EDT [facility] Comment:Automated count of m etamyelocytes, myelocytes and promyelocytes. Lymph Percent 27.0 % 01/28/2018 7:04 PM EDT [facility] Dimmit Percent 7.8 % 01/28/2018 7:04 PM EDT [facility] Eos Percent 6.8 % 01/28/2018 7:04 PM EDT [facility] Baso Percent 0.5 % 01/28/2018 7:04 PM EDT [facility] Neut # 3.4 1.6 - 6.1 x10(3)/mcL 01/28/2018 7:04 PM EDT [facility] Comment:Neutrophils equals s egs plus bands IMMGRAN# 0.0 0.0 - 0.1 x10(3)/mcL 01/28/2018 7:04 PM EDT [facility] Comment:Automated count of m etamyelocytes, myelocytes and promyelocytes. An absolute IG <0.1 is reported as 0.0. Lymph # 1.6 1.2 - 3.9 x10(3)/mcL 01/28/2018 7:04 PM EDT [facility] Dimmit # 0.5 0.3 - 0.9 x10(3)/mcL 01/28/2018 [...] ORDERABLES Antonia zach Result [facility] [address] [facility] , [place] [address] documented in this encounter Visit Diagnoses Diagnosis Iron deficiency anemia, unspecified iron deficiency anemia type- Primary Cyanocobalamin deficiency Other B-complex deficiencies documented in this encounter Additional Health Concerns Assessment Noted Time PHQ-9 Depression Total Score: 2 10/07/19 18 8:00 AM EDT PHQ-2 Depression Total Score: 2 10/07/19 18 8:00 AM EDT documented as of this encounter Care Teams Truck Safety Inspector Relationship Specialty Start Date End Date Thea Rubio MD PCP - General Family Medicine 09/13/14 07/16/22 documented as of this encounter
--- OUTSIDE RECORDS SUMMARY | 2024-03-14 18:20 | XMS_ITS | Encounter Summary ---
Author Organization [place] [address] Care Team Providers Care Gripper Attacher Name Role Phone Thea Rubio MD Primary Care Provider [phone]- [phone] Reason for Visit * Reason Comments Follow-up 4/5 month follow up Chest Pain Edema * Consultation (Routine) - Closed Specialty Diagnoses / Procedures Referred By Contact Referred To Contact Nurse Practitioner / Cardiology Diagnoses Hospital follow up Procedures HOSPITAL PATIENT VISIT Thea Rubio MD Phone: tel: fax: Tiny Ortega, [facility] [employer] [facility] [employer] [employer] [address] [place] [address] Phone: tel: fax: Referral ID Status Reason Start Date Expiration Date Visits Re quested Visits Authorized [id number] Closed 11/19/2017 11/19/2018 1 99 Encounter Details Date Type Department Care Team (Late st Contact Info) Description 01/13/2018 3:45 PM EDT Office Visit [facility] [address] [place] [address] Migue Anne MD [address] [place] [address] ASD (atrial septal defect) (Primary Dx); Precordial pain; ASCUS of cervix with negative high risk HPV Social History Tobacco Use Types Packs/Day Years [...] Sign Reading Time Taken Comments Blood Pressure 130/78 01/13/2018 4:53 PM EDT Pulse 75 01/13/2018 4:53 PM EDT Temperature - - Respiratory Rate - - Oxygen Saturation - - Inhaled Oxygen Concentration - - Weight 62.4 kg (137 lb 9.6 oz) 01/13/2018 4:53 P M EDT Height 165.1 cm (5' 5 ) 01/13/2018 4:53 PM EDT Body Mass Index 22.9 01/13/2018 4:53 PM EDT documented in this encounter Progress Notes * Migue Anne MD - 01/13/2018 3:45 PM EDT Cardiology Follow Up Visit Name: Gardenia Childress : 1980 Referring Physician Thea Rubio MD Reason for Follow-up Chest Brennan, ASD No chief complaint on file. HPI 37 y.o. female is seen for follow up regarding h/o ASD and recent closure. She underwent a colonoscopy at and was told it looked ok. She states after holding asa and Plavix she started having morechest pain. Describes left sided chest pain and upper abdominal pain that is sharp in nature. She is now back on asa and Plavix. She has been anemic and is undergoing a w/u. ROS Denies: Change in vision, headache, fever, chills, nausea, vomiting, anorexia, diarrhea, change in bowel or bladder habits, weight loss or gain. No palpitations, lightheadedness, dizziness, syncope, or near syncope. No extreme fatigue, daytime solomence or change in energy level. No significant depression or anhedonia. Current Outpatient Prescriptions: ??? aspirin 81 mg Oral Tablet, Delayed Release (E.C.), Take 1 Tab by mouth daily., Disp: 30 Tab, Rfl: 11 ??? clopidogrel (PLAVIX) 75 mg Oral Tablet, Take 1 Tab by mouth daily., Disp: 90 Each, Rfl: 1 ??? cyanocobalamin (VITAMIN B-12) 500 mcg Oral Tablet, Take 1 Tab by mouth once a week., Disp: , Rfl: ??? escitalopram oxalate (LEXAPRO) 10 mg Oral Tablet, Take 1 Tab by mouth daily., Disp: 90 Tab, Rfl: 1 ??? ferrous sulfate 325 mg (65 mg iron) Oral Tablet, Take 1 Tab by mouth daily., Disp: , Rfl: ??? PIRMELLA 0.5/0.75/1 mg- 35 mcg Oral Tablet, TAKE ONE TABLET BY MOUTH DAILY, Disp: 28 Tab, Rfl: 10 Allergies Allergen Reactions ??? Latex Rash ??? Morphine Nausea And Vomiting Objective There were no vitals filed for [...] No results found for this visit on 01/13/18. Labs Lab Results Component Value Date CHOLESTEROL 154 05/14/2017 CHOLESTEROL 151 04/22/2017 CHOLESTEROL 174 10/07/2015 HDL 68 05/14/2017 HDL 63 04/22/2017 HDL 50 10/07/2015 LDLCALC 73 05/14/2017 LDLCALC 74 04/22/2017 LDLCALC 110 (H) 10/07/2015 TRIG 67 05/14/2017 TRIG 72 04/22/2017 TRIG 71 10/07/2015 Lab Results Component Value Date INR 1.06 07/04/2017 Lab Results Component Value Date WBC 5.6 12/16/2017 WBC 6.5 11/24/2017 WBC 6.8 11/17/2017 HGB 9.9 (L) 12/16/2017 HGB 9.7 (L) 11/24/2017 HGB 10.9 (L) 11/17/2017 HCT 30.6 (L) 12/16/2017 HCT 30.8 (L) 11/24/2017 HCT 33.4 (L) 11/17/2017 MCV 80.1 12/16/2017 MCV 81.7 11/24/2017 MCV 78.4 (L) 11/17/2017 PLT 354 12/16/2017 PLT 337 11/24/2017 PLT 340 11/17/2017 No results found for: HGBA1C Lab Results [...] septum without evidence of residual shunting Assessment: ASD - No associated cardiac abnormalities on Cardiac CT - s/p ASD closure 07/06 - appears stable on f/u echo Atypical Chest Pain ?? - worse after holding Plavix ? Chronic Migraine ORTEGA's ?? 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 Plan: Would stop Plavix Continue low dose asa Call if worsening chest pain RTC 6 months. documented in this encounter Miscellaneous Notes * Patient Instructions - Natalee Russo CMA - 01/13/2018 3:45 PM EDT You may be contacted by phone, mail or e-mail for a patient satisfaction survey regarding your visit here today. We value your opinion and depend on your feedback to make improvements, if needed, andto provide you with the best possible experience while receiving high quality care. We appreciate you taking the time to complete this survey. Stop Plavix 75 mg in 7 days documented in this encounter Plan of Treatment Upcoming Encounters Date Type Department Care Team (Late st Contact Info) Description 04/24/2024 10:45 AM EST Clinical Support [facility] [address] [place] [id number] documented as of this encounter Goals Goal Patient Goal Type Associated Problems Recent Progress Patient-Stated? Author Maintain a healthy diet, exercise regularly and maintain an ideal body weight General No Thea Rubio MD Stay Tobacco Free Lifestyle No Thea Rubio MD documented as of this encounter Visit Diagnoses Diagnosis ASD (atrial septal defect)- Primary Ostium secundum type atrial septal defect Precordial pain ASCUS of cervix with negative high risk HPV documented in this encounter Additional Health Concerns Assessment Noted Time PHQ-9 Depression Total Score: 2 10/07/19 18 8:00 AM EDT PHQ-2 Depression Total Score: 2 10/07/19 18 8:00 AM EDT documented as of this encounter Care Teams Gripper Attacher Relationship Specialty Start Date End Date Thea Rubio MD PCP - General Family Medicine 09/13/14 07/16/22 documented as of this encounter
--- OUTSIDE RECORDS SUMMARY | 2024-03-14 18:20 | XMS_ITS | Encounter Summary ---
Author [place] [address] Care Team Providers Care Cryolite Recovery Operator Name Role Phone Thea Rubio MD Primary Care Provider [phone] Reason for Visit * Reason Comments Chest Pain C/o high blood press ure, left arm pain and chest pain that started today. States she is a little short of breath. denies fever. cpta- plavix and aspirin. Encounter Details Date Type Department Care Team (Late st Contact Info) Description 11/17/2017 11:12 AM EDT - 11/17/2017 2:42 PM EDT Emergency [facility] [address] [place] [address] Vilma Cotto MD [address] [place] [id number] Chest pain, unspecified type (Primary Dx) Discharge [...] Sign Reading Time Taken Comments Blood Pressure 120/75 11/17/2017 2:41 PM EDT Pulse 70 11/17/2017 2:41 PM EDT Temperature 36.8 ??C (98.2 ??F) 11/17/2017 11:17 AM E DT Respiratory Rate 17 11/17/2017 2:41 PM EDT Oxygen Saturation 98% 11/17/2017 2:41 PM EDT Inhaled Oxygen Concentration - - Weight 59.4 kg (131 lb) 11/17/2017 11:17 AM EDT Height 165.1 cm (5' 5 ) 11/17/2017 11:17 AM EDT Body Mass Index 21.8 11/17/2017 11:17 AM EDT documented in this encounter Discharge Instructions * Discharge Instructions* Nichole Lu PA-C - 11/17/2017 2:20 PM EDT Continue your already prescribed medications. Follow up with cardiology within the next week. Monitor your blood pressures daily. Keep a log and take this to your cardiology appointment. Return if you develop worsening chest pain, difficulty breathing, coughing up blood, loss of consciousness, and any other concerns. documented in this encounter Discharge Disposition Disposition Code Departure Means Destination Home or Self Long-Term documented in this encounter ED Notes * Nichole Lu PA-C - 11/17/2017 10:59 AM EDT Chief Complaint Patient presents with ??? Chest Pain C/o high blood pressure, left arm pain and chest pain that started today. States she is a little short of breath. denies fever. cpta- plavix and aspirin. Patient is a 37-year-old female presenting to the emergency department with chest pain. Patient states that she had some left arm discomfort and overall felt funny over the weekend. She subsequently checked her blood pressure, which was ranging from 140-160/90-106. Patient normally runs lower than this. She has since developed chest tightness and shortness of breath today. This has been constant without alleviating or aggravating factors. She works at a demanding job and was told to perform this without difficulty. Patient contacted her stain sprayer, Dr. Anne, and was referred here by his office staff. Patient denies pleuritic chest pain, recent trips, recent surgeries, and previous history of blood clots. 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 She has a follow-up echocardiogram in December for this. Patient denies a history of hypertension, hypercholesterolemia, and diabetes mellitus. She does notsmoke. She had a stress test earlier this year. Patient has been taking the baby aspirin and Plavixregularly without missed doses. She presents here for further evaluation. Patient History Allergies Allergen Reactions ??? Latex Rash ??? Morphine Nausea And Vomiting Home Medications: Prior to Admission medications Medication Sig Start Date End Date Taking? Authorizing Provider aspirin 81 mg Oral Tablet, Delayed Release (E.C.) Take 1 Tab by mouth daily. 07/18/17 Yes Myrtle Vincent APRN clopidogrel (PLAVIX) 75 mg Oral Tablet Take 1 Tab by mouth daily. 07/11/17 Yes Elver Jones APRN escitalopram oxalate (LEXAPRO) 10 mg Oral Tablet Half a day for 6 days, then 1 a day. 10/09/17 Yes Thea Rubio MD norethindrone-ethinyl estradiol (ORTHO-NOVUM) 0.5/0.75/1 mg- 35 mcg Oral Tablet Take 1 Tab by mouthdaily. 08/18/17 Yes Thea Rubio MD methocarbamol (ROBAXIN) 750 mg Oral Tablet Take 1 Tab by mouth 3 times daily as needed for Pain forup to 12 doses. Patient not taking: Reported on 11/17/2017 10/09/17 Anderson Chery MD Past Medical History: Past Medical History: Diagnosis Date ??? 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 Biliary atresia ??? Depression ??? Migraines Social History: reports that she quit smoking about 23 years ago. She has a 0.10 pack-year smoking history. She has never used smokeless tobacco. She reports that she currently engages in sexual activity and has had male partners. She reports that she does not drink alcohol or use drugs. Family History: Family History Problem Relation Age [...] APPENDECTOMY couple mos old ??? ASD REPAIR 06/2017 ??? CHOLECYSTECTOMY couple mos old. Review of Systems Review of Systems Constitutional: Negative for fever. Respiratory: Positive for shortness of breath. Cardiovascular: Positive for chest pain. Gastrointestinal: Negative for vomiting. Musculoskeletal: Positive for myalgias. Left arm discomfort. Skin: Negative for color change, pallor, rash and wound. Neurological: Negative for syncope and numbness. Psychiatric/Behavioral: Negative for confusion. Physical Exam Blood pressure 143/89, pulse 85, temperature 98.2 ??F (36.8 ??C), temperature source Oral, resp. rate 18, height 5' 5 (1.651 m), weight 131 lb (59.4 kg), SpO2 100 %. Physical Exam Constitutional: She is oriented to person, place, and time. She appears well- developed and well-nourished. No distress. HENT: Head: Normocephalic and atraumatic. Right Ear: External ear normal. Left Ear: External ear normal. Nose: Nose normal. Eyes: Conjunctivae and EOM are normal. Right eye exhibits no discharge. Left eye exhibits no discharge. No scleral icterus. Neck: Normal range of motion. Neck supple. Cardiovascular: Normal rate and regular rhythm. Pulmonary/Chest: Effort normal and breath sounds normal. No respiratory distress. She has no wheezes. Abdominal: Soft. Bowel sounds are normal. She exhibits no distension and no mass. There is no tenderness. There is no rebound and no guarding. Abdomen is soft and non-distended. No rebound or guarding. Bowel sounds present in all 4 quadrants. Musculoskeletal: Normal range of motion. She exhibits no edema. Neurological: She is alert and oriented to person, place, and time. No cranial nerve deficit. She exhibits normal muscle tone. Coordination normal. Skin: Skin is warm and dry. No rash noted. She is not diaphoretic. No erythema. No pallor. Psychiatric: She has a normal mood and affect. Her behavior is normal. Judgment and thought contentnormal. Nursing note and vitals reviewed. Procedures Radiology/EKG/Labs: Results for orders placed or performed during the hospital encounter of 11/17/17 XR CHEST PA AND LATERAL Narrative PA AND LATERAL CHEST X-RAY, 11/17/2017 1:02 PM CLINICAL HISTORY: -CHEST PAIN COMPARISON: 07/09/2017 PROCEDURE COMMENTS: Frontal and lateral views of the chest. FINDINGS: Heart size stable and normal. ASD closure device again noted. Lungs are clear. Impression No acute finding. CBC WITH DIFF Result Value Ref Range WBC 6.8 4.0 - 11.0 x10(3)/mcL RBC 4.27 3.80 - 5.10 x10(6)/mcL Hgb 10.9 (L) 12.0 - 15.6 g/dL Hct 33.4 (L) 35.7 - 45.9 % MCV 78.4 (L) 82.5 - 99.8 fL MCH 25.6 (L) 27.0 - 34.3 pg MCHC 32.6 32.1 - 35.3 g/dL RDW 16.2 (H) 11.5 - 15.0 % Platelet 340 144 - 423 x10(3)/mcL MPV 8.3 6.8 - 10.8 fL Neut Percent 71.2 % Lymph Percent 17.6 % Gilchrist Percent 7.4 % Eos Percent 3.1 % Baso Percent 0.7 % Neut # 4.8 1.8 - 7.7 x10(3)/mcL Lymph # 1.2 0.6 - 4.8 x10(3)/mcL Gilchrist # 0.5 0.0 - 1.3 x10(3)/mcL Eos# 0.2 0.0 - 0.5 x10(3)/mcL Baso # 0.0 0.0 - 0.2 x10(3)/mcL BASIC METABOLIC PANEL Result Value Ref Range Sodium 140 136 - 145 mmol/L Potassium 3.5 3.5 - 5.0 mmol/L Chloride 104 98 - 107 mmol/L Total CO2 24 22 - 29 mmol/L Anion Gap 12 7 - 16 mmol/L Calcium 9.2 8.6 - 10.2 mg/dL Glucose Lvl 92 74 - 100 mg/dL BUN 9 6 - 20 mg/dL Creatinine 0.72 0.51 - 1.30 mg/dL GFR Afr Am 125 mL/min/1.73 m2 GFR Non Afr Am 109 mL/min/1.73 m2 TROPONIN-T Result Value Ref Range Troponin-T <0.01 <0.01 ng/mL Narrative Values > or = 0.01 ng/mL have been shown to have prognostic value. Ingestion of abimael doses of biotin (>5 mg/day) taken within 8 hours of drawing blood sample can interfere with this immunoassay test. TROPONIN-T Result Value Ref Range Troponin-T <0.01 <0.01 ng/mL Narrative Values > or = 0.01 ng/mL have been shown to have prognostic value. Ingestion of abimael doses of biotin (>5 mg/day) taken within 8 hours of drawing blood sample can interfere with this immunoassay test. EK EKG 12 LEAD Impression Stationary ECG Study [facility] Interpretive Statements SINUS RHYTHM NONSPECIFIC T-WAVE ABNORMALITY WITH SLIGHT INCREASE no diagnostic change from previous tracing Electronically Signed On 11-17-2017 13:45:33 EDT by Duran Sales MD ED Course: Patient is a 37-year-old female who presented to the emergency department with chest pain. Patient was seen and examined by for Dr. Cotto. A cardiac work-up was ordered. This was within normal limits, including 2 normal troponins. I spokewith Dr. Cuellar, the on-call stain sprayer, who was comfortable with outpatient management. Patientwas encouraged to continue her Plavix and is to contact her stain sprayer today to schedule an appointment for follow-up this week. Strong return precautions were given. All questions were answered. Patient was discharged in stable condition. ED Clinical Impression: Chest pain, unspecified type (primary encounter diagnosis) Critical Care time Condition at Discharge/Transfer from Department: Stable This chart was completed using voice recognition technology and may contain unintended errors Nichole Lu PA-C 11/18/17 1233 Cosigned by Vilma Cotto MD at 11/20/2017 7:35 AM EDT Associated attestation - Vilma oCtto MD - 11/20/2017 7:35 AM EDT I have reviewed the chief complaint and history of present illness and review of systems as well asthe past medical/social/family history sections for this patient. I have participated in the care of this patient. I have reviewed the pertinent clinical information including physical exam, labs, radiographic studies and the plan. This patient was seen in coordination with PA/OCULARIST. This chart was completed using voice recognition technology and may contain unintended errors documented in this encounter Plan of Treatment Upcoming Encounters Date Type Department Care Team (Late st Contact Info) Description 04/24/2024 10:45 AM EST Clinical Support [facility] [address] [place] [address] documented as of this encounter Goals Goal Patient Goal Type Associated Problems Recent Progress Patient-Stated? Author Maintain a healthy diet, exercise regularly and maintain an ideal body weight General No Thea Rubio MD Stay Tobacco Free Lifestyle No Thea Rubio MD documented as of this encounter Procedures Procedure Name Priority Date/Time Associated Diagnosis Comments SCANNED EKG 11/18/2017 1:11 PM EDT TROPONIN-T STAT 11/17/2017 1:29 PM EDT XR CHEST PA AND LATERAL JACK 11/17/2017 1:02 PM EDT EXTRA TUBES PANEL Routine 11/17/2017 11: 44 AM EDT EXTRA LIGHT BLUE Routine 11/17/2017 11:4 4 AM EDT TROPONIN-T STAT 11/17/2017 11:44 AM EDT CBC WITH DIFF STAT 11/17/2017 11:44 AM EDT BASIC METABOLIC PANEL STAT 11/17/2017 11:44 AM EDT SALINE LOCK IV STAT 11/17/2017 11:21 AM EDT EK EKG 12 LEAD STAT 11/17/2017 11:14 AM EDT documented in this encounter Results * SCANNED EKG (11/18/2017 1:11 PM EDT) Anatomical Region Laterality Modality Other 11/18/2017 1:11 PM EDT us Unknown Unknown IMG ECG ORDERABLES Final Result * TROPONIN-T (11/17/2017 1:29 PM EDT) Troponin-T <0.01 <0.01 ng/mL 11/17/2017 2:25 PM EDT [facility] Blood VENOUS BLOOD / Unknown Venipuncture / Unknown 11/17/2017 1:29 PM EDT 11/17/2017 1:35 PM EDT Narrative [facility] - 11/17/2017 2:25 PM EDT Values > or = 0.01 ng/mL have been shown to have prognostic value. Ingestion of abimael doses of biotin (>5 mg/day) taken within 8 hours of drawing blood sample can interfere with this immunoassay test. us Vilma Cotto MD CHEMISTRY ORDERABLES Final Resul t [facility] [address] [place] [address] * XR CHEST PA AND LATERAL (11/17/2017 1:02 PM EDT) Anatomical Region Laterality Modality Chest Radiographic Kristi ging 11/17/2017 1:02 PM EDT Impressions 11/17/2017 1:06 PM EDT No acute finding. Narrative 11/17/2017 1:06 PM EDT PA AND LATERAL CHEST X-RAY, ??11/17/2017 1:02 PM CLINICAL HISTORY: ??-CHEST PAIN COMPARISON: ??07/09/2017 PROCEDURE COMMENTS: Frontal and lateral views of the chest. FINDINGS: Heart size stable and normal. ASD closure device again noted. Lungs are clear. Procedure Note Johan Ibarra MD - 11/17/2017 PA AND LATERAL CHEST X-RAY, 11/17/2017 1:02 PM CLINICAL HISTORY: -CHEST PAIN COMPARISON: 07/09/2017 PROCEDURE COMMENTS: Frontal and lateral views of the chest. FINDINGS: Heart size stable and normal. ASD closure device again noted. Lungs are clear. IMPRESSION: No acute finding. Vilma Cotto MD IMG DIAGNOSTIC IMAGING ORDERABLE S Final Result * EXTRA LIGHT BLUE (11/17/2017 11:44 AM EDT) Blood VENOUS BLOOD / Unknown Venipuncture / Unknown 11/17/2017 11:44 AM EDT 11/17/2017 11:50 AM EDT Vilma Cotto MD HEMATOLOGY ORDERABLES Final Resu lt Performing Organization Address [facility] Co de Phone Number [facility] [address] [place] [address] * TROPONIN-T (11/17/2017 11:44 AM EDT) Pathologist [facility] Troponin-T <0.01 <0.01 ng/mL 11/17/2017 12:09 PM EDT [facility] Blood VENOUS BLOOD / Unknown Venipuncture / Unknown 11/17/2017 11:44 AM EDT 11/17/2017 11:49 AM EDT Narrative [facility] - 11/17/2017 12:09 PM EDT Values > or = 0.01 ng/mL have been shown to have prognostic value. Ingestion of abimael doses of biotin (>5 mg/day) taken within 8 hours of drawing blood sample can interfere with this immunoassay test. Vilma Cotto MD CHEMISTRY ORDERABLES Final Resul t Performing Organization Address [facility] Co de Phone Number [facility] [address] [place] [address] * BASIC METABOLIC PANEL (11/17/2017 11:44 AM EDT) Sodium 140 136 - 145 mmol/L 11/17/2017 12:33 PM EDT [facility] Potassium 3.5 3.5 - 5.0 mmol/L 11/17/2017 12:33 PM EDT [facility] Chloride 104 98 - 107 mmol/L 11/17/2017 12:33 PM [facility] Total CO2 24 22 - 29 mmol/L 11/17/2017 12:33 PM [facility] Anion Gap 12 7 - 16 mmol/L 11/17/2017 12:33 PM [facility] Calcium 9.2 8.6 - 10.2 mg/dL 11/17/2017 12:33 PM [facility] Glucose Lvl 92 74 - 100 mg/dL 11/17/2017 12:33 PM [facility] BUN 9 6 - 20 mg/dL 11/17/2017 12:33 PM [facility] Creatinine 0.72 0.51 - 1.30 mg/dL 11/17/2017 12:33 PM [facility] GFR Afr Am 125 mL/min/1.7 3 m2 11/17/2017 12:33 PM [facility] GFR Non Afr Am 109 mL/min/1.7 3 m2 11/17/2017 12:33 PM [facility] Comment: GFR Afr Am and GFR Non Afr Am calculated using CKD-EPI equation. ?? GFR Category ?GFR(mL/min/1.73 m??) ? Kidney Function G1 ?>=90 ?Normal or high G2 ?60-89 ? Mildly decreased G3a ? 45-59 ? Mildly to moderately decreased G3b ? 30-44 ? Moderately to severely decreased G4 ?15-29 ? Severely decreased G5 ?<15 ? Kidney Failure Blood VENOUS BLOOD / Unknown Venipuncture / Unknown 11/17/2017 11:44 AM EDT 11/17/2017 11:49 AM EDT us Vilma Cotto MD CHEMISTRY ORDERABLES Final Resul t [facility] [address] [place] [address] * (ABNORMAL) CBC WITH DIFF (11/17/2017 11:44 AM EDT) WBC 6.8 4.0 - 11.0 x10(3)/mcL 11/17/2017 11:53 AM EDT [facility] RBC 4.27 3.80 - 5.10 x10(6)/mcL 11/17/2017 11:53 AM EDT [facility] Hgb 10.9(L) 12.0 - 15.6 g/dL 11/17/2017 11:53 AM EDT [facility] Hct 33.4(L) 35.7 - 45.9 % 11/17/2017 11:53 AM EDT [facility] MCV 78.4(L) 82.5 - 99.8 fL 11/17/2017 11:53 AM EDT [facility] MCH 25.6(L) 27.0 - 34.3 pg 11/17/2017 11:53 AM EDT [facility] MCHC 32.6 32.1 - 35.3 g/dL 11/17/2017 11:53 AM EDT [facility] RDW 16.2(H) 11.5 - 15.0 % 11/17/2017 11:53 AM EDT [facility] Platelet 340 144 - 423 x10(3)/[facility] 11/17/2017 11:53 AM EDT [facility] MPV 8.3 6.8 - 10.8 fL 11/17/2017 11:53 AM EDT [facility] Neut Percent 71.2 % 11/17/2017 11:53 AM EDT [facility] Lymph Percent 17.6 % 11/17/2017 11:53 AM EDT [facility] Gilchrist Percent 7.4 % 11/17/2017 11:53 AM EDT [facility] Eos Percent 3.1 % 11/17/2017 11:53 AM EDT [facility] Baso Percent 0.7 % 11/17/2017 11:53 AM EDT [facility] Neut # 4.8 1.8 - 7.7 x10(3)/[facility] 11/17/2017 11:53 AM EDT [facility] Lymph # 1.2 0.6 - 4.8 x10(3)/[facility] 11/17/2017 11:53 AM EDT [facility] Gilchrist # 0.5 0.0 - 1.3 x10(3)/[facility] 11/17/2017 11:53 AM EDT [facility] Eos# 0.2 0.0 - 0.5 x10(3)/[facility] 11/17/2017 11:53 AM EDT [facility] Baso # 0.0 0.0 - 0.2 x10(3)/[facility] 11/17/2017 11:53 AM EDT [facility] Blood VENOUS BLOOD / Unknown Venipuncture / Unknown 11/17/2017 11:44 AM EDT 11/17/2017 11:49 AM EDT us Vilma Cotto MD HEMATOLOGY ORDERABLES Final Resu lt [facility] [address] [facility] [place] [address] * EK EKG 12 LEAD (11/17/2017 11:14 AM EDT) Anatomical Region Laterality Modality Electrocardiogra phy 11/17/2017 11:1 7 AM EDT Impressions 11/17/2017 1:45 PM EDT ? Stationary ECG Study ?[facility] ? Interpretive Statements ? SINUS RHYTHM NONSPECIFIC T-WAVE ABNORMALITY WITH SLIGHT INCREASE no diagnostic change from previous tracing Electronically Signed On 11-17-2017 13:45:33 EDT by Duran Sales MD Narrative Procedure Note Duran Sales MD - 11/17/2017 IMPRESSION Stationary ECG Study [facility] Interpretive Statements SINUS RHYTHM NONSPECIFIC T-WAVE ABNORMALITY WITH SLIGHT INCREASE no diagnostic change from previous tracing Electronically Signed On 11-17-2017 13:45:33 EDT by Duran Sales MD Vilma Cotto MD IMG ECG ORDERABLES Final Result documented in this encounter Visit Diagnoses Diagnosis Chest pain, unspecified type- Primary documented in this encounter Administered Medications Inactive Administered Medications - up to 1 most recent administrations Medication Order MAR Action Action Date Dose Rate Site sodium chloride 0.9% IV line flush 50 mL 50 mL, Intravenous, at 150-600 mL/hr, PRN, Starting on Fri11/17/17 at 1121, Until Fri11/17/17 at 1842, Line Care, Flush with a minimum of 20 mL after IVPB to insure complete administration of the dose. May use the saline infusion to back flush IVPB tubing as needed., Use this order to document priming and flushing IV line after medication administration. sodium chloride 0.9% syringe 5 mL 5 mL, Intravenous, PRN, Starting on Fri11/17/17 at 1121, Until Fri11/17/17 at 1842, Line Care, Flush with 5 mL saline pre/post IVP, and 5 mL prior to IVPB or blood product administration. Protocol for PERIPHERAL IV saline lock maintenance, flush with 3-5 mL saline syringe every 8 hours., Flush every shift or after IV medication sodium chloride 0.9% syringe 5-10 mL 5-10 mL, Intravenous, PRN, Starting on Fri11/17/17 at 1121, Until Fri11/17/17 at 1842, Line Care, Flush with 5-10 mL saline pre/post IVP, and 5 mL prior to IVPB administration. documented in this encounter Active and Recently Administered Medications Times are shown in EDT. PRN Medication Order 11/15/2017 11/16/2017 11/17/2017 sodium chloride 0.9% IV line flush 50 mL 50 mL, Intravenous, at 150-600 mL/hr, PRN, Starting on Fri11/17/17 at 1121, Until Fri11/17/17 at 1842, Line Care, Flush with a minimum of 20 mL after IVPB to insure complete administration of the dose. May use the saline infusion to back flush IVPB tubing as needed., Use this order to document priming and flushing IV line after medication administration. sodium chloride 0.9% syringe 5 mL 5 mL, Intravenous, PRN, Starting on Fri11/17/17 at 1121, Until Fri11/17/17 at 1842, Line Care, Flush with 5 mL saline pre/post IVP, and 5 mL prior to IVPB or blood product administration. Protocol for PERIPHERAL IV saline lock maintenance, flush with 3-5 mL saline syringe every 8 hours., Flush every shift or after IV medication sodium chloride 0.9% syringe 5-10 mL 5-10 mL, Intravenous, PRN, Starting on Fri11/17/17 at 1121, Until Fri11/17/17 at 1842, Line Care, Flush with 5-10 mL saline pre/post IVP, and 5 mL prior to IVPB administration. documented in this encounter Orders Medications Ordered That Jair ht Not Have Been Administered Count Last Ordered Date First Ordered Date sodium chloride 0.9% IV line flush 50 mL 1 11/17/2017 sodium chloride 0.9% syringe 5 mL 1 018 sodium chloride 0.9% syringe 5-10 mL 1 10/21 Nursing Count Last Ordered Date First Orde red Date CARDIAC MONITORING 11/17/2017 PULSE OX 1 11/17/2017 IV Count Last Ordered Date First Orde red Date SALINE LOCK IV 1 11/17/2017 documented in this encounter Additional Health Concerns Assessment Noted Time PHQ-9 Depression Total Score: 2 10/07/19 18 8:00 AM EDT PHQ-2 Depression Total Score: 2 10/07/19 18 8:00 AM EDT documented as of this encounter Care Teams Cryolite Recovery Operator Relationship Specialty Start Date End Date Thea Rubio MD PCP - General Family Medicine 09/13/14 07/16/22 documented as of this encounter
--- OUTSIDE RECORDS SUMMARY | 2024-03-14 18:20 | XMS_ITS | Encounter Summary ---
Author Organization [place] [address] Care Team Providers Care Betting Agency Manager Name Role Phone Thea Rubio MD Primary Care Provider [phone]- [phone] Reason for Visit * Reason Comments Hospital Follow Up Hospital follow up * Consultation (Routine) - Closed Specialty Diagnoses / Procedures Referred By Contact Referred To Contact Nurse Practitioner / Cardiology Diagnoses Hospital follow up Procedures HOSPITAL PATIENT VISIT Thea Rubio MD Phone: tel: fax: Tiny Ortega, SHEET METAL WORKER SUPERVISOR [address] [place] [address] Phone: tel: fax: Referral ID Status Reason Start Date Expiration Date Visits Re quested Visits Authorized [id number] Closed 11/19/2017 11/19/2018 1 99 Encounter Details Date Type Department Care Team (Late st Contact Info) Description 11/19/2017 3:30 PM EDT Office Visit [facility] [address] [place] [place] [address] Tiny Ortega, SHEET METAL WORKER SUPERVISOR [address] [place] [address] Anemia, unspecified type (Primary Dx); ASD (atrial septal defect) Social History Tobacco Use Types Packs/Day Years [...] Reading Time Taken Comments Blood Pressure 122/84 11/19/2017 3:01 PM EDT Pulse 78 11/19/2017 3:01 PM EDT Temperature - - Respiratory Rate - - Oxygen Saturation - - Inhaled Oxygen Concentration - - Weight 62.1 kg (136 lb 12.8 oz) 11/19/2017 3:01 PM EDT Height 165.1 cm (5' 5 ) 11/19/2017 3:01 PM EDT Body Mass Index 22.76 11/19/2017 3:01 PM EDT documented in this encounter Progress Notes * Tiny Ortega, SHEET METAL WORKER SUPERVISOR - 11/19/2017 3:30 PM EDT Chief Complaint Patient presents with ??? Hospital Follow Up Hospital follow up HPI: Gardenia Childress returned to the office for ASD. She had an ASD repair 5 months ago. She was going to have an echo earlier this year, but she rescheduled it for next month. States she is unable to get it done sooner because she will not be able to leave work to come for testing prior to 3pm. She went to the ER 2 days ago for chest pain. States she has been having chest pressure on and off for the last month. When it occurs it lasts all day. Does not get worse with exertion and does not get better with rest. Feels short of breath when she has the chest pain. ROS: Denies: palpitations, edema, orthopnea, dizziness, syncope, hematochezia Complains of: chest pain, shortness of breath Allergies Allergen Reactions ??? Latex Rash ??? Morphine Nausea And Vomiting Current Outpatient Prescriptions: ??? aspirin 81 mg Oral Tablet, Delayed Release (E.C.), Take 1 Tab by mouth daily., Disp: 30 Tab, Rfl: 11 ??? clopidogrel (PLAVIX) 75 mg Oral Tablet, Take 1 Tab by mouth daily., Disp: 90 Each, Rfl: 1 ??? escitalopram oxalate (LEXAPRO) 10 mg Oral Tablet, Half a day for 6 days, then 1 a day., Disp: 30 Tab, Rfl: 2 ??? norethindrone-ethinyl estradiol (ORTHO-NOVUM) 0.5/0.75/1 mg- 35 mcg Oral Tablet, Take 1 Tab by mouth daily., Disp: 28 Tab, Rfl: 3 History Smoking Status ??? Former Smoker ??? Packs/day: 0.50 ??? Years: 0.20 ??? Quit date: 04/21/1994 Smokeless Tobacco ??? Never Used History Alcohol Use No Vitals: Vitals: 11/19/17 1501 BP: 122/84 BP Location: Left arm Patient Position: Sitting Pulse: 78 Weight: 136 lb 12.8 oz (62.1 kg) Height: 5' 5 (1.651 m) Body mass index is 22.76 kg/m??. Wt Readings from Last 3 Encounters: 11/19/17 136 lb 12.8 oz (62.1 kg) 11/17/17 131 lb (59.4 kg) 10/13/17 130 lb (59 kg) Physical Exam: GEN: Alert and oriented, no acute distress HEENT: NC, sclerae anicteric, OPP/M NECK: supple, no carotid bruits, no JVD LUNGS: CTA CHEST: NT HEART: RRR, no murmur, no gallop, no rubs ABD: soft, NT, positive bowel sounds EXT: no edema, +2 radial pulses NEURO: no obvious focal abnormalities Results: Lab Results Component Value Date HGB 10.9 (L) 11/17/2017 HCT 33.4 (L) 11/17/2017 PLT 340 11/17/2017 CHOLESTEROL 154 05/14/2017 TRIG 67 05/14/2017 HDL 68 05/14/2017 LDLCALC 73 05/14/2017 ALT 9 10/13/2017 AST 14 10/13/2017 NA 140 11/17/2017 K 3.5 11/17/2017 CREATININE 0.72 11/17/2017 BUN 9 11/17/2017 INR 1.06 07/04/2017 GLU 92 11/17/2017 Stress Echo 05/08: 9.8 METs negative ekg [...] without evidence of residual interatrial shunt ?? Assessment: ?? ASD - s/p ASD closure 07/06 ?? Atypical Chest Pain ? Chronic Migraine ORTEGA's ?? H/o Biliary Atresia s/p Amber Procedure (hepatoportoenterostomy) as an - cleared to take asa and Plavix - reports she did have a dilation procedure of a biliary duct bout 10 years ago ?? 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 Anemia Plan: CBC in 1 week Offered to get her echo done soon, but she is unable. If echo is ok, would stop plavix at next office visit and increase ASA to 325mg daily at that time. Will discuss with Dr Anne Return in about 1 month (around 12/20/2017). Call us with any questions or concerns prior to your next visit. Addendum: 11/19/2017 4:[address] Anne. GI consult. Possible stress test if echo is ok. Tiny Ortega APRN documented in this encounter Miscellaneous Notes * Patient Instructions - Magdalena Tello RMA - 11/19/2017 3:30 PM EDT You may be contacted by mail or [...] Clinical Support [facility] [address] [facility] [place] [address] documented as of this encounter Goals Goal Patient Goal Type Associated Problems Recent Progress Patient-Stated? Author Maintain a healthy diet, exercise regularly and maintain an ideal body weight General No Thea Rubio MD Stay Tobacco Free Lifestyle No Thea Rubio MD documented as of this encounter Results * (ABNORMAL) CBC (11/24/2017 2:58 PM EDT) WBC 6.5 3.7 - 10.3 x10(3)/mcL 11/24/2017 7:03 PM EDT [facility] RBC 3.77(L) 3.90 - 5.20 x10(6)/mcL 11/24/2017 7:03 PM EDT [facility] Hgb 9.7(L) 11.2 - 15.7 g/dL 11/24/2017 7:03 PM EDT [facility] Hct 30.8(L) 34.0 - 45.0 % 11/24/2017 7:03 PM EDT [facility] MCV 81.7 79.0 - 98.0 fL 11/24/2017 7:03 PM EDT [facility] MCH 25.7(L) 26.0 - 32.0 pg 11/24/2017 7:03 PM EDT [facility] MCHC 31.5 30.7 - 35.5 g/dL 11/24/2017 7:03 PM EDT [facility] RDW 16.1(H) <=14.9 % 11/24/2017 7:03 PM EDT [facility] Platelet 337 155 - 369 x10(3)/mcL 11/24/2017 7:03 PM EDT [facility] MPV 10.8 8.8 - 12.5 fL 11/24/2017 7:03 PM EDT [facility] Blood Venipuncture / Unknown 11/24/2017 2:58 PM EDT 11/24/2017 2:58 PM EDT Tiny M Ortega SHEET METAL WORKER SUPERVISOR HEMATOLOGY ORDERABLES Antonia serrano Result [facility] [address] [facility] , [place] [place] [address] documented in this encounter Visit Diagnoses Diagnosis Anemia, unspecified type- Primary ASD (atrial septal defect) Ostium secundum type atrial septal defect documented in this encounter Discontinued Medications Medication Sig Discontinue Reason Start Date End Da te methocarbamol (ROBAXIN) 750 mg Oral Tablet Take 1 Tab by mouth 3 times daily as needed for Pain for up to 12 doses. Discontinued by another clinician 10/09/2017 11/19/2017 documented as of this encounter Additional Health Concerns Assessment Noted Time PHQ-9 Depression Total Score: 2 10/07/19 18 8:00 AM EDT PHQ-2 Depression Total Score: 2 10/07/19 18 8:00 AM EDT documented as of this encounter Care Teams Betting Agency Manager Relationship Specialty Start Date End Date Thea Rubio MD PCP - General Family Medicine 09/13/14 07/16/22 documented as of this encounter
--- OUTSIDE RECORDS SUMMARY | 2024-03-14 18:20 | XMS_ITS | Encounter Summary ---
Author Organization [place] [address] Care Team Providers Care Operator Vacuum Name Role Phone Thea Rubio MD Primary Care Provider [phone]- [phone] Reason for Visit * Reason Onset Date Comments Cardiology Clearance 12/25/2017 Encounter Details Date Type Department Care Team (Late st Contact Info) Description 12/25/2017 Telephone [facility] [address] [place] [address] Migue Anne MD [address] [place] [address] Cardiology Clearance Social History Tobacco Use Types Packs/Day Years [...] Telephone Encounter - Heather Holden LPN - 12/26/2017 7:45 AM EDT Faxed * Telephone Encounter - Migue Anne MD - 12/25/2017 5:42 PM EDT Ok from cardiology perspective to hold Plavix for 7 days to undergo colonoscopy * Telephone Encounter - Heather Holden LPN - 12/25/2017 5:[address] Aaron Rocha would like to request cardiac clearance for patient to have colonoscopy on 01/12/18 due to anemia and diarrhea. Request is for patient to hold plavix 75 mg for [address] Aaron Rocha [phone] documented in this encounter Plan of Treatment Upcoming Encounters Date Type Department Care Team (Late st Contact Info) Description 04/24/2024 10:45 AM EST Clinical Support [facility] [address] [place] [address] documented as of this encounter [...] documented as of this encounter Care Teams Operator Vacuum Relationship Specialty Start Date End Date Thea Rubio MD PCP - General Family Medicine 09/13/14 07/16/22 documented as of this encounter
--- OUTSIDE RECORDS SUMMARY | 2024-03-14 18:20 | XMS_ITS | Encounter Summary ---
Author Organization [place] [address] Care Team Providers Care Bakery Team Leader Name Role Phone Thea Rubio MD Primary Care Provider +1- [phone] Reason for Visit * Reason Comments Follow-up depression f/u Encounter Details Date Type Department Care Team (Late st Contact Info) Description 02/17/2018 3:15 PM EDT [facility] [address] [place] [address] Dallin Chou PA-C [address] [place] [address] Strain of left trapezius muscle, initial encounter (Primary Dx); Adjustment disorder with depressed mood Social History Tobacco Use Types Packs/Day Years [...] Sign Reading Time Taken Comments Blood Pressure 126/80 02/17/2018 2:51 PM EDT Pulse 81 02/17/2018 2:51 PM EDT Temperature 36.8 ??C (98.3 ??F) 02/17/2018 2:51 PM ED T Respiratory Rate - - Oxygen Saturation 99% 02/17/2018 2:51 PM EDT Inhaled Oxygen Concentration - - Weight 66 kg (145 lb 6.4 oz) 02/17/2018 2:51 PM EDT Height 165.4 cm (5' 5.1 ) 02/17/2018 2:51 PM EDT Body Mass Index 24.12 02/17/2018 2:51 PM EDT documented in this encounter Ordered Prescriptions Prescription Sig Dispense Quantity Refills Last Filled Start Date End Date methylPREDNISolon e (MEDROL DOSPACK) 4 mg Oral Tablets, Dose PackIndications:S train of left trapezius muscle, initial encounter See package instructions 21 Tab 02/17/2018 8 documented in this encounter Progress Notes * Dallin Chou PA-C - 02/17/2018 3:15 PM EDT Images from the original note were not included. Chief Complaint Patient presents with ??? Follow-up depression f/u HPI: Left trap pain improving but persisting Increase of lexapro to 20 mg was tolerated Symptoms well controlled now No SI or HI Past Medical History: [...] ??? COLONOSCOPY 01/12/2018 Dr. Aaron Rocha, with [facility]. Normal colon ??? UPPER GASTROINTESTINAL ENDOSCOPY 12/04/2017 at , Dr. Aaron Rocha Outpatient Encounter Prescriptions as of 02/17/2018 Medication Sig Dispense Refill ??? aspirin 81 [...] not taking: Reportedon 02/03/2018) 90 Each 1 ??? methylPREDNISolone (MEDROL DOSPACK) 4 mg Oral Tablets, Dose Pack See package instructions 21 Tab 0 No facility-administered encounter medications on file as of 02/17/2018. See time date stamps in the EMR for other pertient history components reviewed as part of today's encounter. Review of Systems Constitutional: Negative for appetite change, chills, fatigue and fever. HENT: Negative for trouble swallowing. Respiratory: Negative for cough. Cardiovascular: Negative for palpitations. Gastrointestinal: Negative for abdominal pain and nausea. Musculoskeletal: Positive for myalgias and neck pain. Negative for arthralgias. Skin: Negative for rash. Neurological: Negative for light-headedness and headaches. Psychiatric/Behavioral: The patient is not nervous/anxious. Vitals: 02/17/18 1451 BP: 126/80 BP Location: Right arm Patient Position: Sitting Pulse: 81 Temp: 98.3 ??F (36.8 ??C) TempSrc: Oral SpO2: 99% Weight: 145 lb 6.4 oz (66 kg) Height: 5' 5.1 (1.654 m) Physical [...] sounds normal. Musculoskeletal: Normal range of motion. Cervical back: She exhibits tenderness. She exhibits normal range of motion, no bony tenderness, noswelling, no edema and no deformity. Back: Neurological: She is alert and oriented to person, place, and time. Skin: Skin is warm and dry. No rash noted. Psychiatric: She has a normal mood and affect. Her behavior is normal. Thought content normal. Vitals reviewed. Assessment Diagnoses and all orders for this visit: Strain of left trapezius muscle, initial encounter - methylPREDNISolone (MEDROL DOSPACK) 4 mg Oral Tablets, Dose Pack; See package instructions Dispense: 21 Tab; Refill: 0 Adjustment disorder with depressed mood Continue lexapro at the new dose Will re-eval at follow up Will try steroid course Hold NSAID until steroids completed Continue stretching and avoiding aggravators Follow 2 weeks Return in about 2 weeks (around 03/03/2018). [facility] Documentation Medication Compliance: Compliant all the time Understanding of Current Medications: Good Medication Compliance Barriers: None or N/A Self-Management Tools: N/A, no chronic conditions Self-Management Ability: Good Willingness to Adopt Healthy Behaviors: Good Potential Barriers to completing treatment plans today: No significant barriers [facility] Flowsheet was completed/reviewed as part of today's visit. Educated patient regarding the diagnosis, medication/treatment, goals, self- management tools and instructions based on their care plan. They verbalized understanding of the education given on the After Visit Summary [AVS] for today's visit. A copy of the AVS was provided either in writing and/or via [employer]. A new medicine was not prescribed on this visit. documented in this encounter Plan of Treatment Upcoming Encounters Date Type Department Care Team (Late st Contact Info) Description 04/24/2024 10:45 AM EST Clinical Support [facility] [address] [place] [address] documented as of this encounter Goals Goal Patient Goal Type Associated Problems Recent Progress Patient-Stated? Author Maintain a healthy diet, exercise regularly and maintain an ideal body weight General No hTea Rubio MD Stay Tobacco Free Lifestyle No Thea Rubio MD documented as of this encounter Visit Diagnoses Diagnosis Strain of left trapezius muscle, initial encounter- Primary Adjustment disorder with depressed mood documented in this encounter Additional Health Concerns Assessment Noted Time PHQ-9 Depression Total Score: 2 10/07/19 18 8:00 AM EDT PHQ-2 Depression Total Score: 2 10/07/19 18 8:00 AM EDT documented as of this encounter Care Teams Bakery Team Leader Relationship Specialty Start Date End Date Thea Rubio MD PCP - General Family Medicine 09/13/14 07/16/22 documented as of this encounter
--- OUTSIDE RECORDS SUMMARY | 2024-03-14 18:20 | XMS_ITS | Encounter Summary ---
Author Organization [place] [address] Care Team Providers Care Traffic Or System Dispatcher Name Role Phone Thea Rubio MD Primary Care Provider +1- [phone] Reason for Visit * Reason Onset Date Comments Chest Discomfort 11/17/2017 Encounter Details Date Type Department Care Team (Late st Contact Info) Description 11/17/2017 Telephone [facility] [address] [address] [place] [address] Migue Anne MD [address] [place] [address] Chest Discomfort Social History Tobacco Use Types Packs/Day Years [...] Encounter - Teresa Saleh RN - 11/17/2017 10:12 AM EDT SWP, states over the past few days her BP has been elevated. States her BP is usually ~ 110/70. Last week she obtained a reading of 140/90, Friday - 161/99, Rinku 158/109. With these elevated BP'sshe has been experiencing a discomfort in her L arm. Today this discomfort has radiated into her chest. Pt c/o H/A and slight SOB; she has not checked her BP today. Advised ER evaluation at this time, she is agreeable. documented in this encounter Plan of Treatment Upcoming Encounters Date Type Department Care Team (Late st Contact Info) Description 04/24/2024 10:45 AM EST Clinical Support [facility] [address] [place] [address] documented as of this encounter [...] documented as of this encounter Care Teams Traffic Or System Dispatcher Relationship Specialty Start Date End Date Thea Rubio MD PCP - General Family Medicine 09/13/14 07/16/22 documented as of this encounter
--- OUTSIDE RECORDS SUMMARY | 2024-03-14 18:20 | XMS_ITS | Encounter Summary ---
Author Organization [place] [address] Care Team Providers Care Tube And Manifold Builder Name Role Phone Thea Rubio MD Primary Care Provider [phone]- [phone] Reason for Visit * Reason Comments Abdominal Pain lt. upper abdomen, t hinks it's from her liver Encounter Details Date Type Department Care Team (Late Contact Info) Description 04/14/2018 7:31 PM EST - 04/14/2018 9:18 PM EST Emergency [facility] [address] [facility] [place] [address] Anderson Chery MD [address] [place] [id number] Epigastric abdominal pain (Primary Dx) Discharge Disposition: Home or Self [...] Sign Reading Time Taken Comments Blood Pressure 139/87 04/14/2018 7:30 PM EST Pulse 85 04/14/2018 7:30 PM EST Temperature 36.8 ??C (98.2 ??F) 04/14/2018 7:30 PM ES T Respiratory Rate 16 04/14/2018 7:30 PM EST Oxygen Saturation 100% 04/14/2018 7:30 PM EST Inhaled Oxygen Concentration - - Weight 64.4 kg (142 lb) 04/14/2018 7:30 PM EST Height 166.4 cm (5' 5.5 ) 04/14/2018 7:30 PM EST Body Mass Index 23.27 04/14/2018 7:30 PM EST documented in this encounter Discharge Instructions * Discharge Instructions* Renetta Alva PA-C - 04/14/2018 9:13 PM EST Take medications as prescribed Follow up with your family doctor in 1-4 days Follow-up with the GI doctor as planned Return if worsening of abdominal pain, vomiting, bloody stool * Attachments The following attachments cannot be sent through Care Everywhere. * Abdominal Pain Adult [id number] ([place]) documented in this encounter Ordered Prescriptions Prescription Sig Dispense Quantity Refills Last Filled Start Date End Date promethazine (PHENERGAN) 25 mg Oral Tablet Take 1 Tab by mouth 3 times daily as needed for Nausea for up to 30 days. 10 Tab 04/14/2018 05/07/2018 dicyclomine (BENTYL) 20 mg Oral Tablet Take 1 Tab by mouth every 6 hours as needed for Other (abdominal cramping) for up to 30 days. 12 Tab 04/14/2018 05/07/2018 documented in this encounter Discharge Disposition Disposition Code Departure Means Destination Home or Self [facility] documented in this encounter ED Notes * Renetta Alva PA-C - 04/14/2018 6:59 PM EST Chief Complaint Patient presents with ??? Abdominal Pain lt. upper abdomen, thinks it's from her liver The patient was seen with Dr Chery. The patient is a 38-year-old female who presents with epigastric abdominal pain that started a couple of days ago. He describes a constant dull pain with intermittent sharp pain. She states the pain is currently 1/10 intensity. She states it is 9/10 when it flares up. She denies nausea, vomiting, diarrhea, melena, or hematochezia. 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 She has history of cholecystectomy and appendectomy. She has appointment with GI at on 22 April. She denies fever or chills. Patient has no other complaints today. History provided by: Patient Patient History Allergies Allergen Reactions ??? Latex Rash ??? Morphine Nausea And Vomiting Home Medications: Prior to Admission medications Medication Sig Start Date End Date Taking? Authorizing Provider aspirin 81 mg Oral Tablet, Delayed Release (E.C.) Take 1 Tab by mouth daily. 07/18/17 Myrtle Vincent APRN cyanocobalamin (VITAMIN B-12) 500 mcg Oral Tablet Take 1 Tab by mouth once a week. 12/17/17 Thea Rubio MD escitalopram oxalate (LEXAPRO) 20 mg Oral Tablet Take 1 Tab by mouth daily. 02/03/18 Dallin Chou PA-C ferrous sulfate 325 mg (65 mg iron) Oral Tablet Take 1 Tab by mouth daily. 12/17/17 Thea Rubio MD naproxen (NAPROSYN) 500 mg Oral Tablet Take 1 Tab by mouth 2 times daily (with meals). 02/03/18 Dallin Chou PA-C PIRMELLA 0.5/0.75/1 mg- 35 mcg Oral Tablet TAKE ONE TABLET BY MOUTH DAILY 12/05/17 Thea Rubio MD Past Medical History: Past Medical History: [...] ??? COLONOSCOPY 01/12/2018 Dr. Aaron Rocha, with [facility]. Normal colon ??? UPPER GASTROINTESTINAL ENDOSCOPY 12/04/2017 at , Dr. Aaron Rocha Review of Systems Review of Systems Constitutional: Negative. HENT: Negative. Respiratory: Negative. Cardiovascular: Negative. Gastrointestinal: Positive for abdominal pain. Negative for abdominal distention, anal bleeding, blood in stool, constipation, diarrhea, nausea, rectal pain and vomiting. Genitourinary: Negative. Musculoskeletal: Negative. Neurological: Negative. All other systems reviewed and are negative. Physical Exam Blood pressure 139/87, pulse 85, temperature 98.2 ??F (36.8 ??C), temperature source Oral, resp. rate 16, height 5' 5.5 (1.664 m), weight 142 lb (64.4 kg), last menstrual period 03/17/2018, SpO2 100%, not currently . Physical Exam Constitutional: She is oriented to person, place, and time. She appears well- developed and well-nourished. No distress. HENT: Head: Normocephalic and atraumatic. Eyes: Pupils are equal, round, and reactive to light. Conjunctivae and EOM are normal. Neck: Normal range of motion. Neck supple. Cardiovascular: Normal rate, regular rhythm, normal heart sounds and intact distal pulses. No murmur heard. Pulmonary/Chest: Effort normal and breath sounds normal. No respiratory distress. She has no wheezes. Abdominal: Soft. Bowel sounds are normal. She exhibits no distension and no mass. There is tenderness. There is no rebound and no guarding. Mild epigastric abdominal tenderness. Abdomen is soft and nondistended. Musculoskeletal: Normal range of motion. Neurological: She is alert and oriented to person, place, and time. Skin: Skin is warm and dry. No rash noted. She is not diaphoretic. No erythema. Psychiatric: She has a normal mood and affect. Her behavior is normal. Vitals reviewed. Procedures Radiology/EKG/Labs: Results for orders placed or performed during the hospital encounter of 04/14/18 CBC WITH DIFF Result Value Ref Range WBC 6.9 4.0 - 11.0 x10(3)/mcL RBC 4.45 3.80 - 5.10 x10(6)/mcL Hgb 12.4 12.0 - 15.6 g/dL Hct 37.8 35.7 - 45.9 % MCV 85.1 82.5 - 99.8 fL MCH 27.9 27.0 - 34.3 pg MCHC 32.8 32.1 - 35.3 g/dL RDW 14.2 11.5 - 15.0 % Platelet 304 144 - 423 x10(3)/mcL MPV 8.2 6.8 - 10.8 fL Neut Percent 57.5 % Lymph Percent 29.8 % Gaston Percent 7.9 % Eos Percent 4.4 % Baso Percent 0.4 % Neut # 4.0 1.8 - 7.7 x10(3)/mcL Lymph # 2.1 0.6 - 4.8 x10(3)/mcL Gaston # 0.5 0.0 - 1.3 x10(3)/mcL Eos# 0.3 0.0 - 0.5 x10(3)/mcL Baso # 0.0 0.0 - 0.2 x10(3)/mcL COMPREHENSIVE METABOLIC PANEL Result Value Ref Range Sodium 141 136 - 145 mmol/L Potassium 4.0 3.5 - 5.0 mmol/L Chloride 108 (H) 98 - 107 mmol/L Total CO2 25 22 - 29 mmol/L Anion Gap 8 7 - 16 mmol/L Calcium 8.9 8.6 - 10.2 mg/dL Glucose Lvl 95 74 - 100 mg/dL BUN 8 6 - 20 mg/dL Creatinine 0.89 0.51 - 1.30 mg/dL Albumin 3.7 3.5 - 5.2 gm/dL Total Protein 6.6 6.4 - 8.3 gm/dL Bili Total 0.1 0.1 - 1.3 mg/dL ALT 11 <=41 IU/L AST 15 <=40 IU/L Alk Phos 54 35 - 104 IU/L GFR Afr Am 96 >=60 mL/min/1.73 m2 GFR Non Afr Am 84 >=60 mL/min/1.73 m2 LIPASE LEVEL Result Value Ref Range Lipase Lvl 24 13 - 60 IU/L URINALYSIS Result Value Ref Range UA Color Yellow UA Appear Clear Clear UA Glucose Negative Negative mg/dL UA Ketones Trace (5 mg/dL) (A) Negative mg/dL UA Blood Trace-Intact (A) Negative UA pH 6.5 5.0 - 8.0 pH UA Protein Negative Negative mg/dL UA Urobilinogen 1.0 <=1 mg/dL UA Bili Negative Negative UA Nitrite Negative Negative UA Leuk Est Negative Negative UA Spec Grav 1.020 1.001 - 1.035 no units UA WBC 5 (H) 0 - 4 /HPF UA RBC 1 0 - 3 /HPF UA Squam Epi Rare /LPF UA Mucus 2+ /LPF HCG QUALITATIVE Result Value Ref Range HCG QUAL Negative Narrative Ingestion of abimael doses of biotin (>5 mg/day) taken within 8 hours of drawing blood sample can interfere with this immunoassay test. ED Course: Appropriate laboratory and radiology studies reviewed The patient was seen and evaluated in the ER for abdominal pain. She did not appear to be in pain when I evaluated her. Examination is unremarkable for any acute findings. CBC, CMP, lipase are unremarkable. test is negative. Patient was recommended to follow up with her GI as planned. She was told to return to ER if worsening of abdominal pain, vomiting, or bloody stool. Discharge instructions was went to her, she verbalized understanding. Patient was discharged home in stable condition. She was prescribed Bentyl and Zofran. ED Clinical Impression: Epigastric abdominal pain (primary encounter diagnosis) Critical Care time Condition at Discharge/Transfer from Department: Improved This chart was completed using voice recognition technology and may contain unintended errors Renetta Alva PA-C 04/14/182115 Cosigned by Anderson Chery MD at 04/14/2018 9:57 PM EST Associated attestation - Anderson Chery MD - 04/14/2018 9:57 PM EST I have reviewed the chief complaint and history of present illness and review of systems as well asthe past medical/social/family history sections for this patient. I have participated in the care of this patient. I have reviewed the pertinent clinical information including physical exam, labs, radiographic studies and the plan. This patient was seen in coordination with PA/SHREDDING MACHINE KNIFE CHANGER. This chart was completed using voice recognition technology and may contain unintended errors documented in this encounter Plan of Treatment Upcoming Encounters Date Type Department Care Team (Late st Contact Info) Description 04/24/2024 10:45 AM EST Clinical Support [facility] [address] [place] [address] documented as of this encounter Goals Goal Patient Goal Type Associated Problems Recent Progress Patient-Stated? Author Maintain a healthy diet, exercise regularly and maintain an ideal body weight General No Thea Rubio MD Stay Tobacco Free Lifestyle No Thea Rubio MD documented as of this encounter Procedures Procedure Name Priority Date/Time Associated Diagnosis Comments EXTRA ADAME URINE CX STAT 04/14/2018 8 :25 PM EST HCG QUALITATIVE STAT 04/14/2018 8:25 PM EST URINALYSIS STAT 04/14/2018 8:25 PM EST CBC WITH DIFF STAT 04/14/2018 8:25 PM EST LIPASE LEVEL STAT 04/14/2018 8:25 PM EST COMPREHENSIVE METABOLIC PANEL STAT 04/14/2018 8:25 PM EST documented in this encounter Results * HCG QUALITATIVE (04/14/2018 8:25 PM EST) HCG QUAL Negative 04/14/2018 9:01 PM EST [facility] Blood VENOUS BLOOD / Unknown Venipuncture / Unknown 04/14/2018 8:25 PM EST 04/14/2018 8:29 PM EST Narrative [facility] - 04/14/2018 9:01 PM EST Ingestion of abimael doses of biotin (>5 mg/day) taken within 8 hours of drawing blood sample can interfere with this immunoassay test. Anderson Chery MD CHEMISTRY ORDERABLES Final Re sult Performing Organization Address [facility] Co de Phone Number [facility] [address] [place] [address] * EXTRA ADAME URINE CX (04/14/2018 8:25 PM EST) Urine URINE SPECIMEN COLLECTION, CLEAN CATCH / Unknown 04/14/2018 8:25 PM EST 04/14/2018 8:29 PM EST Anderson Chery MD MICROBIOLOGY - GENERAL ORDERA BLES Final Result Performing Organization Address [facility] Co de Phone Number [facility] [address] [place] [address] * (ABNORMAL) URINALYSIS (04/14/2018 8:25 PM EST) UA Color Yellow 04/14/2018 8:43 PM EST [facility] UA Appear Clear Clear 04/14/2018 8:43 PM EST [facility] UA Glucose Negative Negative mg/dL 04/14/2018 8:43 PM EST [facility] UA Ketones Trace (5 mg/dL)(A) Negative mg/dL 04/14/2018 8:43 PM EST [facility] UA Blood Trace-Intac t(A) Negative 04/14/2018 8:43 PM EST [facility] UA pH 6.5 5.0 - 8.0 pH 04/14/2018 8:43 PM EST [facility] UA Protein Negative Negative mg/dL 04/14/2018 8:43 PM EST [facility] UA Urobilinogen 1.0 <=1 mg/dL 8 8:43 PM EST [facility] UA Bili Negative Negative 04/14/2018 8:43 PM EST [facility] UA Nitrite Negative Negative 04/14/2018 8:43 PM EST [facility] UA Leuk Est Negative Negative 04/14/2018 8:43 PM EST [facility] UA Spec Grav 1.020 1.001 - 1.035 no units 04/14/2018 8:43 PM EST [facility] Comment: Reference range valid for random specimens only. UA WBC 5(H) 0 - 4 /HPF 04/14/2018 8:43 PM EST [facility] UA RBC 1 0 - 3 /HPF 04/14/2018 8:43 PM EST [facility] UA Squam Epi Rare /LPF 04/14/2018 8:43 PM EST [facility] UA Mucus 2+ /LPF 04/14/2018 8:43 PM EST [facility] Urine URINE SPECIMEN COLLECTION, CLEAN CATCH / Unknown 04/14/2018 8:25 PM EST 04/14/2018 8:29 PM EST us Anderson Chery MD URINE ORDERABLES Final Result Performing Organization Address [facility]/ZIP Co de Phone Number [facility] [address] [place] [address] * LIPASE LEVEL (04/14/2018 8:25 PM EST) Lipase Lvl 24 13 - 60 IU/L 04/14/2018 8:48 PM EST [facility] Blood VENOUS BLOOD / Unknown Venipuncture / Unknown 04/14/2018 8:25 PM EST 04/14/2018 8:29 PM EST us Anderson Chery MD CHEMISTRY ORDERABLES Final Re sult Performing Organization Address [facility]/ZIP Co de Phone Number [facility] [address] [place] [address] * (ABNORMAL) COMPREHENSIVE METABOLIC PANEL (04/14/2018 8:25 PM EST) Sodium 141 136 - 145 mmol/L 04/14/2018 8:48 PM EST [facility] Potassium 4.0 3.5 - 5.0 mmol/L 04/14/2018 8:48 PM EST [facility] Chloride 108(H) 98 - 107 mmol/L 04/14/2018 8:48 PM EST [facility] Total CO2 25 22 - 29 mmol/L 04/14/2018 8:48 PM [facility] Anion Gap 8 7 - 16 mmol/L 04/14/2018 8:48 PM [facility] Calcium 8.9 8.6 - 10.2 mg/dL 04/14/2018 8:48 PM [facility] Glucose Lvl 95 74 - 100 mg/dL 04/14/2018 8:48 PM [facility] BUN 8 6 - 20 mg/dL 04/14/2018 8:48 PM [facility] Creatinine 0.89 0.51 - 1.30 mg/dL 04/14/2018 8:48 PM [facility] Albumin 3.7 3.5 - 5.2 gm/dL 04/14/2018 8:48 PM [facility] Total Protein 6.6 6.4 - 8.3 gm/dL 04/14/2018 8:48 PM [facility] Bili Total 0.1 0.1 - 1.3 mg/dL 04/14/2018 8:48 PM [facility] ALT 11 <=41 IU/L 04/14/2018 8:48 PM [facility] AST 15 <=40 IU/L 04/14/2018 8:48 PM [facility] Alk Phos 54 35 - 104 IU/L 04/14/2018 8:48 PM [facility] GFR Afr Am 96 >=60 mL/min/1.7 3 m2 04/14/2018 8:48 PM [facility] GFR Non Afr Am 84 >=60 mL/min/1.7 3 m2 04/14/2018 8:48 PM [facility] Comment: This [...] VENOUS BLOOD / Unknown Venipuncture / Unknown 04/14/2018 8:25 PM EST 04/14/2018 8:29 PM EST us Anderson Chery MD CHEMISTRY ORDERABLES Final Re sult [facility] [address] [place], [place] [address] * CBC WITH DIFF (04/14/2018 8:25 PM EST) WBC 6.9 4.0 - 11.0 x10(3)/mcL 04/14/2018 8:32 PM EST [facility] RBC 4.45 3.80 - 5.10 x10(6)/mcL 04/14/2018 8:32 PM EST [facility] Hgb 12.4 12.0 - 15.6 g/dL 04/14/2018 8:32 PM EST [facility] Hct 37.8 35.7 - 45.9 % 04/14/2018 8:32 PM EST [facility] MCV 85.1 82.5 - 99.8 fL 04/14/2018 8:32 PM EST [facility] MCH 27.9 27.0 - 34.3 pg 04/14/2018 8:32 PM EST [facility] MCHC 32.8 32.1 - 35.3 g/dL 04/14/2018 8:32 PM EST [facility] RDW 14.2 11.5 - 15.0 % 04/14/2018 8:32 PM EST [facility] Platelet 304 144 - 423 x10(3)/mcL 04/14/2018 8:32 PM EST [facility] MPV 8.2 6.8 - 10.8 fL 04/14/2018 8:32 PM EST [facility] Neut Percent 57.5 % 04/14/2018 8:32 PM EST [facility] Lymph Percent 29.8 % 04/14/2018 8:32 PM EST [facility] Gaston Percent 7.9 % 04/14/2018 8:32 PM EST [facility] Eos Percent 4.4 % 04/14/2018 8:32 PM EST [facility] Baso Percent 0.4 % 04/14/2018 8:32 PM EST [facility] Neut # 4.0 1.8 - 7.7 x10(3)/[facility] 04/14/2018 8:32 PM EST [facility] Lymph # 2.1 0.6 - 4.8 x10(3)/[facility] 04/14/2018 8:32 PM EST [facility] Gaston # 0.5 0.0 - 1.3 x10(3)/[facility] 04/14/2018 8:32 PM EST [facility] Eos# 0.3 0.0 - 0.5 x10(3)/[facility] 04/14/2018 8:32 PM EST [facility] Baso # 0.0 0.0 - 0.2 x10(3)/[facility] 04/14/2018 8:32 PM EST [facility] Blood VENOUS BLOOD / Unknown Venipuncture / Unknown 04/14/2018 8:25 PM EST 04/14/2018 8:29 PM EST us Anderson Chery MD HEMATOLOGY ORDERABLES Final R esult Performing Organization Address City/State/[facility] Co de Phone Number [facility] [address] [place] [address] documented in this encounter Visit Diagnoses Diagnosis Epigastric abdominal pain- Primary Abdominal pain, epigastric documented in this encounter Additional Health Concerns Assessment Noted Time PHQ-9 Depression Total Score: 2 10/07/19 18 8:00 AM EDT PHQ-2 Depression Total Score: 2 10/07/19 18 8:00 AM EDT documented as of this encounter Care Teams Tube And Manifold Builder Relationship Specialty Start Date End Date Thea Rubio MD PCP - General Family Medicine 09/13/14 07/16/22 documented as of this encounter
--- OUTSIDE RECORDS SUMMARY | 2024-03-14 18:20 | XMS_ITS | Encounter Summary ---
Author Organization [place] [address] Care Team Providers Care Human Services Manager Name Role Phone Thea Rubio MD Primary Care Provider [phone]- [phone] Encounter Details Date Type Department Care Team (Latest Contact Info) Description 11/24/2017 2:58 PM EDT - 11/24/2017 11:59 PM EDT Hospital Encounter [facility] [address] [id number] [place] Anemia, unspecified type Discharge Disposition: Home or Self Care [...] Progress Notes * Tiny Ortega APRN - 11/24/2017 11:59 PM EDT Blood count is continuing to get lower. Follow up with PCP or GI for this. documented in this encounter Plan of Treatment Upcoming Encounters Date Type Department Care Team (Late st Contact Info) Description 04/24/2024 10:45 AM EST Clinical Support [facility] [address] [place] [phone] documented as of this encounter Goals Goal Patient Goal Type Associated Problems Recent Progress Patient-Stated? Author Maintain a healthy diet, exercise regularly and maintain an ideal body weight General No Thea Rubio MD Stay Tobacco Free Lifestyle No Thea Rubio MD documented as of this encounter Procedures Procedure Name Priority Date/Time Associated Diagnosis Comments CBC Routine 11/24/2017 2:58 PM EDT Anemia, unspecified type documented in this encounter Results * (ABNORMAL) CBC (11/24/2017 [...] 2:58 PM EDT 11/24/2017 2:58 PM EDT us Tiny Ortega BRAKE ADJUSTER HEMATOLOGY ORDERABLES Antonia serrano Result [facility] [address] [facility] , [place] [address] documented in this encounter Visit Diagnoses Diagnosis Anemia, unspecified type documented in this encounter Additional Health Concerns Assessment Noted Time PHQ-9 Depression Total Score: 2 10/07/19 18 8:00 AM EDT PHQ-2 Depression Total Score: 2 10/07/19 18 8:00 AM EDT documented as of this encounter Care Teams Human Services Manager Relationship Specialty Start Date End Date Thea Rubio MD PCP - General Family Medicine 09/13/14 07/16/22 documented as of this encounter
--- OUTSIDE RECORDS SUMMARY | 2024-03-14 18:20 | XMS_ITS | Encounter Summary ---
Author Organization [facility] [place] [address] Care Team Providers Care Supervisor Belt And Link Assembly Name Role Phone Thea Rubio MD Primary Care Provider +1- [phone] Reason for Visit * Reason Comments Follow-up on control Anemia Encounter Details Date Type Department Care Team (Late st Contact Info) Description 12/10/2017 3:45 PM EDT Office Visit [facility] [address] [place] [address] Thea Rubio MD [address] [place] [address] Normocytic anemia (Primary Dx) Social History Tobacco Use Types [...] Reading Time Taken Comments Blood Pressure 126/80 12/10/2017 3:22 PM EDT Pulse 88 12/10/2017 3:22 PM EDT Temperature 36.7 ??C (98.1 ??F) 12/10/2017 3:22 PM ED T Respiratory Rate - - Oxygen Saturation - - Inhaled Oxygen Concentration - - Weight 61.1 kg (134 lb 12.8 oz) 12/10/2017 3:22 PM EDT Height 165.1 cm (5' 5 ) 12/10/2017 3:22 PM EDT Body Mass Index 22.43 12/10/2017 3:22 PM EDT documented in this encounter Progress Notes * Thea Rubio MD - 12/10/2017 3:45 PM EDT Subjective Chief Complaint Patient presents with ??? Follow-up on control ??? Anemia Was seen in ER due to chest tightness, discomfort L arm, BP volatile. Steady decrease Hgb since September 2017, ? Why. No blood in stools or melena. Very light menses on BCP.No blood in urine. Did see Dr. Aaron Rocha at , had EGD last wk, no bleeding site. He is considering colonoscopy. Has next appt 2018. Not vegetarian. Didn't do BW for him. Does have a Amplatzer septal occluder, placed Jul 09, 2017. Anemia began 3 mos after device was placed (cked in Jun, then anemic in September2017). No BTB on BCP. Patient Active Problem List Diagnosis ??? Congenital biliary atresia ??? Migraine without aura ??? Celiac artery stenosis (HCC) ??? Precordial pain ??? ASCUS of cervix with negative high risk HPV ??? ASD (atrial septal defect) ??? Anemia Current Outpatient Prescriptions on File Prior to Visit Medication Sig Dispense Refill ??? aspirin 81 mg Oral Tablet, Delayed Release (E.C.) Take 1 Tab by mouth daily. 30 Tab 11 ??? clopidogrel (PLAVIX) 75 mg Oral Tablet Take 1 Tab by mouth daily. 90 Each 1 ??? escitalopram oxalate (LEXAPRO) 10 mg Oral Tablet Half a day for 6 days, then 1 a day. 30 Tab 2 ??? PIRMELLA 0.5/0.75/1 mg- 35 mcg Oral Tablet TAKE ONE TABLET BY MOUTH DAILY 28 Tab 10 No current facility-administered medications on file prior to visit. Social History Social History ??? Marital status: [...] - General (Family Medicine) Review of Systems Constitutional: Positive for fatigue. All other systems reviewed and are negative. Objective BP 126/80 (BP Location: Right arm, Patient Position: Sitting) Pulse 88 Temp 98.1 ??F (36.7 ??C)(Oral) Ht 5' 5 (1.651 m) Wt 134 lb 12.8 oz (61.1 kg) BMI 22.43 kg/m?? Physical Exam Constitutional: She appears well-developed and well-nourished. Neck: Normal range of motion. Neck supple. No tracheal deviation present. No thyromegaly present. Cardiovascular: Normal rate, regular rhythm and normal heart sounds. Exam reveals no gallop. No murmur heard. No carotid bruits Pulmonary/Chest: Effort normal and breath sounds normal. Musculoskeletal: She exhibits no edema or tenderness. Lymphadenopathy: She has no cervical adenopathy. Nursing note and vitals reviewed. Lab Results Component Value Date WBC 6.5 11/24/2017 HGB 9.7 (L) 11/24/2017 HCT 30.8 (L) 11/24/2017 PLT 337 11/24/2017 CHOLESTEROL 154 05/14/2017 TRIG 67 05/14/2017 HDL 68 05/14/2017 LDLCALC 73 05/14/2017 ALT 9 10/13/2017 AST 14 10/13/2017 NA 140 11/17/2017 K 3.5 11/17/2017 CL 104 11/17/2017 CREATININE 0.72 11/17/2017 BUN 9 11/17/2017 CO2 24 11/17/2017 INR 1.06 07/04/2017 GLU 92 11/17/2017 TSHREFLEX 2.240 05/14/2017 Diagnoses and all orders for this visit: Normocytic anemia-after ASD closure device implanted. ?? Is anemia related to metallic device. GI to eval for GI blood loss. - CBC WITH DIFF; Future - IRON/UIBC; Future - VITAMIN B12/ FOLIC ACID; Future - HAPTOGLOBIN; Future - LACTATE DEHYDROGENASE; Future - RETICULOCYTE COUNT; Future PCM Documentation Medication Compliance: Compliant all the time Understanding of Current Medications: Good Medication Compliance Barriers: None or N/A Self-Management Tools: Home blood pressure monitoring, Home weight monitoring, Home glucometer Self-Management Ability: Good Willingness to Adopt Healthy Behaviors: Good Potential Barriers to completing treatment plans today: No significant barriers [facility] Flowsheet was completed/reviewed as part of today's visit. Educated patient regarding the diagnosis, medication/treatment, goals, self- management tools and instructions based on their care plan. They verbalized understanding of the education given on the After Visit Summary [AVS] for today's visit. A copy of the AVS was provided either in writing and/or via [facility]. A new medicine was not prescribed on this visit. documented in this encounter Miscellaneous Notes * Patient Instructions - Thea Rubio MD - 12/10/2017 4:32 PM EDT Images from the original note were not included. Patient Education Anemia Anemia is a condition in which you do not have enough red blood cells or hemoglobin. Hemoglobin is a substance in red blood cells that carries oxygen. When you do not have enough red blood cells or hemoglobin (are anemic), your body cannot get enough oxygen and your organs may not work properly. Asa result, you may feel very tired or have other problems. What are the causes? Common causes of anemia include: ?? Excessive bleeding. Anemia can be caused by excessive bleeding inside or outside the body, including bleeding from the intestine or from periods in women. ?? Poor nutrition. ?? Long-lasting (chronic) kidney, thyroid, and liver disease. ?? Bone marrow disorders. ?? Cancer and treatments for cancer. ?? HIV (human immunodeficiency virus) and AIDS (acquired immunodeficiency syndrome). ?? Treatments for HIV and AIDS. ?? Spleen problems. ?? Blood disorders. ?? Infections, medicines, and autoimmune disorders that destroy red blood cells. What are the signs or symptoms? Symptoms of this condition include: ?? Minor weakness. ?? Dizziness. ?? Headache. ?? Feeling heartbeats that are irregular or faster than normal (palpitations). ?? Shortness of breath, especially with exercise. ?? Paleness. ?? Cold sensitivity. ?? Indigestion. ?? Nausea. ?? Difficulty sleeping. ?? Difficulty concentrating. Symptoms may occur suddenly or develop slowly. If your anemia is mild, you may not have symptoms. How is this diagnosed? This condition is diagnosed based on: ?? Blood tests. ?? Your medical history. ?? A physical exam. ?? Bone marrow biopsy. Your health care provider may also check your stool (feces) for blood and may do additional testingto look for the cause of your bleeding. You may also have other tests, including: ?? Imaging tests, such as a CT scan or MRI. ?? Endoscopy. ?? Colonoscopy. How is this treated? Treatment for this condition depends on the cause. If you continue to lose a lot of blood, you may need to be treated at a hospital. Treatment may include: ?? Taking supplements of iron, vitamin B12, or folic acid. ?? Taking a hormone medicine (erythropoietin) that can help to stimulate red blood cell growth. ?? Having a blood transfusion. This may be needed if you lose a lot of blood. ?? Making changes to your diet. ?? Having surgery to remove your spleen. Follow these instructions at home: ?? Take [id number] and prescription medicines only as told by your health care provider. ?? Take supplements only as told by your health care provider. ?? Follow any diet instructions that you were given. ?? Keep all follow-up visits as told by your health care provider. This is important. Contact a health care provider if: ?? You develop new bleeding anywhere in the body. Get help right away if: ?? You are very weak. ?? You are short of breath. ?? You have pain in your abdomen or chest. ?? You are dizzy or feel faint. ?? You have trouble concentrating. ?? You have bloody or black, tarry stools. ?? You vomit repeatedly or you vomit up blood. Summary ?? Anemia is a condition in which you do not have enough red blood cells or enough of a substance in your red blood cells that carries oxygen (hemoglobin). ?? Symptoms may occur suddenly or develop slowly. ?? If your anemia is mild, you may not have symptoms. ?? This condition is diagnosed with blood tests as well as a medical history and physical exam. Other tests may be needed. ?? Treatment for this condition depends on the cause of the anemia. This information is not intended to replace advice given to you by your health care provider. Make sure you discuss any questions you have with your health care provider. Document Released: 05/15/2005 Document Revised: 05/09/2017 Document Reviewed: 05/09/2017 [employer] Patient Education ?? 2018 [employer] documented in this encounter Plan of Treatment Upcoming Encounters Date Type Department Care Team (Late st Contact Info) Description 04/24/2024 10:45 AM EST Clinical Support [facility] [address] [place] [address] documented as of this encounter Goals Goal Patient Goal Type Associated Problems Recent Progress Patient-Stated? Author Maintain a healthy diet, exercise regularly and maintain an ideal body weight General No Thea Rubio MD Stay Tobacco Free Lifestyle No Thea Rubio MD documented as of this encounter Results * RETICULOCYTE COUNT (12/16/2017 2:48 PM EDT) Retic Cnt Auto 1.4 0.9 - 2.5 % 12/16/2017 7:59 PM EDT [facility] Retic # 50.8 40.0 - 110.0 x10(3)/mcL 12/16/2017 7:59 PM EDT [facility] [employer] Blood VENOUS BLOOD / Unknown Venipuncture / Unknown 12/16/2017 2:48 PM EDT 12/16/2017 2:48 PM EDT us Thea Rubio MD HEMATOLOGY ORDERABLES Antonia l Result Performing Organization Address [facility] Co de Phone Number [facility] velingo [facility] [address] [facility] , [place] [address] * LACTATE DEHYDROGENASE (12/16/2017 2:48 PM EDT) LDH 175 135 - 214 IU/L 12/16/2017 8:31 PM EDT [facility] [employer] [facility] Blood VENOUS BLOOD / Unknown Venipuncture / Unknown 12/16/2017 2:48 PM EDT 12/16/2017 2:48 PM EDT us Thea Rubio MD CHEMISTRY ORDERABLES Final Result Performing Organization Address [facility] Co de Phone Number [facility] velingo [facility] [address] [facility] , [place] [address] * HAPTOGLOBIN (12/16/2017 2:48 PM EDT) Haptoglobin 102 30 - 200 mg/dL 12/16/2017 8:20 PM EDT [facility] [employer] Blood VENOUS BLOOD / Unknown Venipuncture / Unknown 12/16/2017 2:48 PM EDT 12/16/2017 2:48 PM EDT us Thea Rubio MD CHEMISTRY ORDERABLES Final Result Performing Organization Address [facility] Co de Phone Number [facility] velingo [facility] [address] [facility] , [place] [address] * VITAMIN B12/ FOLIC ACID (12/16/2017 2:48 PM EDT) Vitamin B12 222 211 - 946 pg/mL 12/16/2017 8:48 PM EDT [facility] Folate 12.00 4.50 - 16.00 ng/mL 12/16/2017 8:48 PM EDT [facility] [employer] Blood Venipuncture / Unknown 12/16/2017 2:48 PM EDT 12/16/2017 2:48 PM EDT Narrative PREFERRED [employer], [facility] - 12/16/2017 8:48 PM EDT Ingestion of abimael doses of biotin (>5 mg/day) taken within 8 hours of drawing blood sample can interfere with this immunoassay test. Thea Rubio MD CHEMISTRY ORDERABLES Final Result Performing Organization Address [facility]/ZIP Co de Phone Number [facility] [employer], [facility] [address] [facility] , [place] [address] * (ABNORMAL) IRON/UIBC (12/16/2017 2:48 PM EDT) Iron 22(L) 30 - 160 mcg/dL 12/16/2017 8:50 PM EDT [facility], [facility] UIBC 463(H) 112 - 347 mcg/dL 12/16/2017 8:50 PM EDT [facility] [employer] Transferrin Sat 5(L) 20 - 50 % 8 8:50 PM EDT [facility] [employer] Blood Venipuncture / Unknown 12/16/2017 2:48 PM EDT 12/16/2017 2:48 PM EDT us Thea Rubio MD CHEMISTRY ORDERABLES Final Result Performing Organization Address [facility]/ZIP Co de Phone Number PREFERRED [employer], [facility] [address] [facility] , [place] [address] * (ABNORMAL) CBC WITH DIFF (12/16/2017 2:48 PM EDT) WBC 5.6 3.7 - 10.3 x10(3)/mcL 12/16/2017 7:56 PM EDT [facility] [employer] RBC 3.82(L) 3.90 - 5.20 x10(6)/mcL 12/16/2017 7:56 PM EDT [facility], [facility] Hgb 9.9(L) 11.2 - 15.7 g/dL 12/16/2017 7:56 PM EDT [facility], [facility] Hct 30.6(L) 34.0 - 45.0 % 12/16/2017 7:56 PM EDT [facility], [facility] MCV 80.1 79.0 - 98.0 fL 12/16/2017 7:56 PM EDT [facility], [facility] MCH 25.9(L) 26.0 - 32.0 pg 12/16/2017 7:56 PM EDT [facility], [facility] MCHC 32.4 30.7 - 35.5 g/dL 12/16/2017 7:56 PM EDT [facility] RDW 15.6(H) <=14.9 % 12/16/2017 7:56 PM EDT [facility] Platelet 354 155 - 369 x10(3)/mcL 12/16/2017 7:56 PM EDT [facility] MPV 10.3 8.8 - 12.5 fL 12/16/2017 7:56 PM EDT [facility] Neut Percent 59.1 % 12/16/2017 7:56 PM EDT [facility], [facility] Comment:Neutrophils equals s egs plus bands Imm Gran% 0.5 % 12/16/2017 7:56 PM EDT [facility], [facility] Comment:Automated count of m etamyelocytes, myelocytes and promyelocytes. Lymph Percent 26.3 % 12/16/2017 7:56 PM EDT [facility], [facility] [place] Percent 8.2 % 12/16/2017 7:56 PM EDT [facility] Eos Percent 5.5 % 12/16/2017 7:56 PM EDT [facility], [facility] Baso Percent 0.4 % 12/16/2017 7:56 PM EDT [facility] Neut # 3.3 1.6 - 6.1 x10(3)/mcL 12/16/2017 7:56 PM EDT [facility], [facility] Comment:Neutrophils equals s egs plus bands IMMGRAN# 0.0 0.0 - 0.1 x10(3)/mcL 12/16/2017 7:56 PM EDT [facility], [facility] Comment:Automated count of m etamyelocytes, myelocytes and promyelocytes. An absolute IG <0.1 is reported as 0.0. Lymph # 1.5 1.2 - 3.9 x10(3)/mcL 12/16/2017 7:56 PM EDT [facility] [place] # 0.5 0.3 - 0.9 x10(3)/mcL 12/16/2017 7:56 PM EDT [facility] Eos# 0.3 0.0 - 0.5 x10(3)/mcL 12/16/2017 7:56 PM EDT [facility] Baso # 0.0 0.0 - 0.1 x10(3)/mcL 12/16/2017 7:56 PM EDT [facility] Blood Venipuncture / Unknown 12/16/2017 2:48 PM EDT 12/16/2017 2:48 PM EDT us Thea Rubio MD HEMATOLOGY ORDERABLES Antonia serrano Result [facility] [address] [facility] , [place] [address] documented in this encounter Visit Diagnoses Diagnosis Normocytic anemia- Primary Anemia, unspecified documented in this encounter Additional Health Concerns Assessment Noted Time PHQ-9 Depression Total Score: 2 10/07/19 18 8:00 AM EDT PHQ-2 Depression Total Score: 2 10/07/19 18 8:00 AM EDT documented as of this encounter Care Teams Supervisor Belt And Link Assembly Relationship Specialty Start Date End Date Thea Rubio MD PCP - General Family Medicine 09/13/14 07/16/22 documented as of this encounter
--- OUTSIDE RECORDS SUMMARY | 2024-03-14 18:20 | XMS_ITS | Encounter Summary ---
Author Organization [place] [address] Care Team Providers Care Felt Machine Mechanic Name Role Phone Thea Rubio MD Primary Care Provider +1- [phone] Reason for Visit * Reason Onset Date Comments Advice Only 11/19/2017 Encounter Details Date Type Department Care Team (Late st Contact Info) Description 11/19/2017 Telephone SEP [facility] [address] [phone] Tiny Ortega APRN [address] [place] [address] Advice Only Social History Tobacco Use Types Packs/Day Years [...] encounter Miscellaneous Notes * Telephone Encounter - Tiny Ortega APRN - 11/19/2017 4:25 PM EDT DWP * Telephone Encounter - Tiny Ortega APRN - 11/19/2017 4:[address]iscussed with Dr Anne. He suggested she see GI. If CBC next week shows H&H is still low, then will defer to PCP. LMTRC documented in this encounter Plan of Treatment Upcoming Encounters Date Type Department Care Team (Late st Contact Info) Description 04/24/2024 10:45 AM EST Clinical Support [facility] [address] [place] [address] documented as of this encounter [...] documented as of this encounter Care Teams Felt Machine Mechanic Relationship Specialty Start Date End Date Thea Rubio MD PCP - General Family Medicine 09/13/14 07/16/22 documented as of this encounter
--- OUTSIDE RECORDS SUMMARY | 2024-03-14 18:20 | XMS_ITS | Encounter Summary ---
Author Organization [place] [address] Care Team Providers Care Preventive Maintenance Engineer Name Role Phone Thea Rubio MD Primary Care Provider +1- [phone] Encounter Details Date Type Department Care Team (Latest Contact Info) Description 12/16/2017 2:47 PM EDT - 12/16/2017 11:59 PM EDT Hospital Encounter [facility] [address] [id number] [place], [facility] Preop testing; ASD (atrial septal defect); Normocytic anemia Discharge Disposition: Home or Self Care Social [...] Clinical Support [facility] [address] [place] [address] documented as of this encounter Goals Goal Patient Goal Type Associated Problems Recent Progress Patient-Stated? Author Maintain a healthy diet, exercise regularly and maintain an ideal body weight General No Thea Rubio MD Stay Tobacco Free Lifestyle No Thea Rubio MD documented as of this encounter Procedures Procedure Name Priority Date/Time Associated Diagnosis Comments IRON/UIBC Routine 12/16/2017 2:48 PM EDT Normocytic anemia VITAMIN B12/ FOLIC ACID Routine 12/16/2017 2:48 PM EDT Normocytic anemia RETICULOCYTE COUNT Routine 12/16/2017 2: 48 PM EDT Normocytic anemia CBC WITH DIFF Routine 12/16/2017 2:48 PM EDT Normocytic anemia LACTATE DEHYDROGENASE Routine 12/16/2017 2:48 PM EDT Normocytic anemia HAPTOGLOBIN Routine 12/16/2017 2:48 PM EDT Normocytic anemia documented in this encounter Results * RETICULOCYTE COUNT (12/16/2017 2:48 PM EDT) Retic Cnt Auto 1.4 0.9 - 2.5 % 12/16/2017 7:59 PM EDT [facility] Retic # 50.8 40.0 - 110.0 x10(3)/mcL 12/16/2017 7:59 PM EDT [facility] Blood VENOUS BLOOD / Unknown Venipuncture / Unknown 12/16/2017 2:48 PM EDT 12/16/2017 2:48 PM EDT us Thea Rubio MD HEMATOLOGY ORDERABLES Antonia l Result [facility] [employer] [address] [facility] , [place] [address] * LACTATE DEHYDROGENASE (12/16/2017 2:48 PM EDT) LDH 175 135 - 214 IU/L 12/16/2017 8:31 PM EDT [facility] Blood VENOUS BLOOD / Unknown Venipuncture / Unknown 12/16/2017 2:48 PM EDT 12/16/2017 2:48 PM EDT Result Placido Rubio MD CHEMISTRY ORDERABLES Final Result Performing Organization Address City/[facility]/ZIP Co de Phone Number [facility], [facility] [address] [facility] , [place] [address] * HAPTOGLOBIN (12/16/2017 2:48 PM EDT) Haptoglobin 102 30 - 200 mg/dL 12/16/2017 8:20 PM EDT [facility] [employer], [facility] Blood VENOUS BLOOD / Unknown Venipuncture / Unknown 12/16/2017 2:48 PM EDT 12/16/2017 2:48 PM EDT Result Placido Rubio MD CHEMISTRY ORDERABLES Final Result Performing Organization Address [facility] de Phone Number [facility] [employer], [facility] [address] [facility] , [place] [address] * VITAMIN B12/ FOLIC ACID (12/16/2017 2:48 PM EDT) Vitamin B12 222 211 - 946 pg/mL 12/16/2017 8:48 PM EDT [facility] [employer], [employer] Folate 12.00 4.50 - 16.00 ng/mL 12/16/2017 8:48 PM EDT [facility] [employer], [employer] Blood Venipuncture / Unknown 12/16/2017 2:48 PM EDT 12/16/2017 2:48 PM EDT Narrative [facility] [employer] - 12/16/2017 8:48 PM EDT Ingestion of abimael doses of biotin (>5 mg/day) taken within 8 hours of drawing blood sample can interfere with this immunoassay test. Result Placido Rubio MD CHEMISTRY ORDERABLES Final Result Performing Organization Address [facility] Co de Phone Number [facility] [employer] [facility] [address] [facility] , [place] [address] * (ABNORMAL) IRON/UIBC (12/16/2017 2:48 PM EDT) Iron 22(L) 30 - 160 mcg/dL 12/16/2017 8:50 PM EDT [facility] UIBC 463(H) 112 - 347 mcg/dL 12/16/2017 8:50 PM EDT [facility] Transferrin Sat 5(L) 20 - 50 % 8 8:50 PM EDT [facility] Blood Venipuncture / Unknown 12/16/2017 2:48 PM EDT 12/16/2017 2:48 PM EDT us Thea Rubio MD CHEMISTRY ORDERABLES Final Result [facility] [address] [facility] , [address] [place] [phone] * (ABNORMAL) CBC WITH DIFF (12/16/2017 2:48 PM EDT) WBC 5.6 3.7 - 10.3 x10(3)/mcL 12/16/2017 7:56 PM EDT [facility] RBC 3.82(L) 3.90 - 5.20 x10(6)/mcL 12/16/2017 7:56 PM EDT [facility] Hgb 9.9(L) 11.2 - 15.7 g/dL 12/16/2017 7:56 PM EDT [facility] Hct 30.6(L) 34.0 - 45.0 % 12/16/2017 7:56 PM EDT [facility] MCV 80.1 79.0 - 98.0 fL 12/16/2017 7:56 PM EDT [facility] MCH 25.9(L) 26.0 - 32.0 pg 12/16/2017 7:56 PM EDT [facility] MCHC 32.4 30.7 - 35.5 g/dL 12/16/2017 7:56 PM EDT [facility] RDW 15.6(H) <=14.9 % 12/16/2017 7:56 PM EDT [facility] Platelet 354 155 - 369 x10(3)/mcL 12/16/2017 7:56 PM EDT [facility] MPV 10.3 8.8 - 12.5 fL 12/16/2017 7:56 PM EDT [facility] Neut Percent 59.1 % 12/16/2017 7:56 PM EDT [facility] Comment:Neutrophils equals s egs plus bands Imm Gran% 0.5 % 12/16/2017 7:56 PM EDT [facility] Comment:Automated count of m etamyelocytes, myelocytes and promyelocytes. Lymph Percent 26.3 % 12/16/2017 7:56 PM EDT [facility] Davie Percent 8.2 % 12/16/2017 7:56 PM EDT [facility] Eos Percent 5.5 % 12/16/2017 7:56 PM EDT [facility] Baso Percent 0.4 % 12/16/2017 7:56 PM EDT [facility] Neut # 3.3 1.6 - 6.1 x10(3)/[facility] 12/16/2017 7:56 PM EDT [facility] Comment:Neutrophils equals s egs plus bands IMMGRAN# 0.0 0.0 - 0.1 x10(3)/[facility] 12/16/2017 7:56 PM EDT [facility] Comment:Automated count of m etamyelocytes, myelocytes and promyelocytes. An absolute IG <0.1 is reported as 0.0. Lymph # 1.5 1.2 - 3.9 x10(3)/[facility] 12/16/2017 7:56 PM EDT [facility] Davie # 0.5 0.3 - 0.9 x10(3)/[facility] 12/16/2017 7:56 PM EDT [facility] Eos# 0.3 0.0 - 0.5 x10(3)/[facility] 12/16/2017 7:56 PM EDT [facility] Baso # 0.0 0.0 - 0.1 x10(3)/[facility] 12/16/2017 7:56 PM EDT [facility] Blood Venipuncture / Unknown 12/16/2017 2:48 PM EDT 12/16/2017 2:48 PM EDT us Thea Rubio MD HEMATOLOGY ORDERABLES Antonia serrano Result [facility] [address] [place] [address] , [place] [address] documented in this encounter Visit Diagnoses Diagnosis Preop testing Preoperative examination, unspecified ASD (atrial septal defect) Ostium secundum type atrial septal defect Normocytic anemia Anemia, unspecified documented in this encounter Additional Health Concerns Assessment Noted Time PHQ-9 Depression Total Score: 2 10/07/19 18 8:00 AM EDT PHQ-2 Depression Total Score: 2 10/07/19 18 8:00 AM EDT documented as of this encounter Care Teams Preventive Maintenance Engineer Relationship Specialty Start Date End Date Thea Rubio MD PCP - General Family Medicine 09/13/14 07/16/22 documented as of this encounter
--- OUTSIDE RECORDS SUMMARY | 2024-03-14 18:20 | XMS_ITS | Encounter Summary ---
Author Organization [place] [address] Care Team Providers Care Clerical Specialist Name Role Phone Thea Rubio MD Primary Care Provider +1- [phone] Reason for Visit * Reason Comments Medication Refill Encounter Details Date Type Department Care Team (Late st Contact Info) Description 01/04/2018 Refill [facility] [address] [place] [address] Thea Rubio MD [address] [place] [phone] Medication Refill Social History Tobacco Use Types [...] Start Date End Date escitalopram oxalate (LEXAPRO) 10 mg Oral TabletIndications:G rief reaction Take 1 Tab by mouth daily. 90 Tab 1 01/04/2018 02/03/2018 documented in this encounter Plan of Treatment Upcoming Encounters Date Type Department Care Team (Late st Contact Info) Description 04/24/2024 10:45 AM EST Clinical Support [facility] [address] [place] [address] documented as of this encounter Goals Goal Patient Goal Type Associated Problems Recent Progress Patient-Stated? Author Maintain a healthy diet, exercise regularly and maintain an ideal body weight General No Thea Rubio MD Stay Tobacco Free Lifestyle No Thea Rubio MD documented as of this encounter Visit Diagnoses Diagnosis Grief reaction Adjustment disorder with depressed mood documented in this encounter Discontinued Medications Medication Sig Discontinue Reason Start Date End Da te escitalopram oxalate (LEXAPRO) 10 mg Oral TabletIndications:Grief reaction Half a day for 6 days, then 1 a day. Reorder 10/09/2017 01/04/2018 documented as of this encounter Additional Health Concerns Assessment Noted Time PHQ-9 Depression Total Score: 2 10/07/19 18 8:00 AM EDT PHQ-2 Depression Total Score: 2 10/07/19 18 8:00 AM EDT documented as of this encounter Care Teams Clerical Specialist Relationship Specialty Start Date End Date Thea Rubio MD PCP - General Family Medicine 09/13/14 07/16/22 documented as of this encounter
[2024-03-14] MEDS: HYDROMORPHONE 2MG/ML SYRINGE 1 MG IV ×2 (18:21→19:39)
[2024-03-14] MEDS: ONDANSETRON 4MG/2ML VIAL 4 MG IV ×2 (18:21→18:54)
--- OUTSIDE RECORDS SUMMARY | 2024-03-14 18:21 | XMS_ITS | Encounter Summary ---
Author Organization [place] [address] Care Team Providers Care Unit Trust Manager Name Role Phone Thea Rubio MD Primary Care Provider +1- [phone] Reason for Referral * Echo (Routine) - Closed Specialty Diagnoses / Procedures Referred By Amalia tuttle Referred To Contact Radiology Diagnoses ASD (atrial septal defect) H/O Amplatzer atrial septal defect closure Procedures ECHOCARDIOGRAM LIMITED Myrtle Vincent [place] [address] Phone: tel: fax: Referral ID Status Reason Start Date Expiration Date Visits Re quested Visits Authorized [id number] Closed 07/18/2017 07/19/2019 1 1 Reason for Visit * Reason Comments Hospital Follow Up * Consultation (Routine) - Closed Specialty Diagnoses / Procedures Referred By Amalia tuttle Referred To Contact Nurse Practitioner / Cardiology Diagnoses hosp follow up Procedures OFFICE VISIT Thea Rubio MD Phone: tel: fax: Myrtle Vincent APRN Referral ID Status Reason Start Date Expiration Date Visits Re quested Visits Authorized [id number] Closed 07/17/2017 07/17/2018 1 99 Encounter Details Date Type Department Care Team (Late st Contact Info) Description 07/17/2017 10:45 AM EDT Office Visit [facility] [address] [place] [address] Myrtle Vincent APRN H/O Amplatzer atrial septal defect closure (Primary Dx); ASD (atrial septal defect) Social [...] Sign Reading Time Taken Comments Blood Pressure 102/70 07/17/2017 10:43 AM EDT Pulse 85 07/17/2017 10:43 AM EDT Temperature - - Respiratory Rate - - Oxygen Saturation - - Inhaled Oxygen Concentration - - Weight 67.1 kg (148 lb) 07/17/2017 10:43 AM EDT Height 165.1 cm (5' 5 ) 07/17/2017 10:43 AM EDT Body Mass Index 24.63 07/17/2017 10:43 AM EDT documented in this encounter Ordered Prescriptions Prescription Sig Dispense Quantity Refills Last Filled Start Date End Date aspirin 81 mg Oral Tablet, Delayed Release (E.C.)Indications:A SD (atrial septal defect),H/O Amplatzer atrial septal defect closure Take 1 Tab by mouth daily. 30 Tab 11 07/18/2017 07/18/2018 documented in this encounter Progress Notes * Myrtle Vincent APRN - 07/17/2017 10:45 AM EDT Chief Complaint Patient presents with ??? Hospital Follow Up HPI: Gardenia Childress returned to the office for hospital discharge follow up for an ASD closure device on 07/09/2017. ASD found on echo after presenting with chest pain,. No recurrence of pain Bilateral groins sites tender, but no bleeding or pain Denies chest pain, SOB/orthopnea/PND, cough, palpitations, dizziness, syncope, edema or claudication. Has a hx of a liver condition Asking about dose of ASA ROS: Denies fever/chills, visual changes, paresthesias, myalgias, arthralgias, weight change, N/V/diarrhea, hematochezia, melena, dysuria, polyuria, polydipsia or night sweats. Allergies Allergen Reactions ??? Latex Rash ??? Morphine Nausea And Vomiting Current Outpatient Prescriptions: ??? Aspirin 325 mg Oral Tablet, Delayed Release (E.C.), Take 1 Tab by mouth daily., Disp: 90 Tab, Rfl: 3 ??? clopidogrel (PLAVIX) 75 mg Oral Tablet, Take 1 Tab by mouth daily., Disp: 90 Each, Rfl: 1 ??? dicyclomine (BENTYL) 10 mg Oral Capsule, Take 1 Cap by mouth 4 times daily as needed (for cramps after menses)., Disp: 120 Cap, Rfl: 2 ??? SUMAtriptan (IMITREX) 25 mg Oral Tablet, TAKE ONE TABLET BY MOUTH NEEDED FOR MIGRAINE, Disp:9 Tab, Rfl: 4 ??? topiramate (TOPAMAX) 50 mg Oral Tablet, TAKE ONE TABLET BY MOUTH TWICE A DAY. MAY ADD EXTRA PILL AT NIGHT WHEN HAVING MIGRAINE FLARES., Disp: 270 Tab, Rfl: 1 Past Medical History: Diagnosis Date ??? 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 Biliary atresia ??? Depression ??? Migraines Past Surgical History: Procedure Laterality Date ??? ABDOMEN SURGERY as , with CCX, Appy for bile duct ??? ABDOMINAL EXPLORATION SURGERY 11/07/2016 Median Arcuate Ligament Division Deborah Parker MD, for biliary stenosis ??? APPENDECTOMY couple mos old ??? CHOLECYSTECTOMY couple mos old. Infant Family History Problem Relation Age of Onset [...] aneurysms. Lab Results Component Value Date HGB 13.3 07/04/2017 HCT 39.4 07/04/2017 PLT 258 07/04/2017 CHOLESTEROL 154 05/14/2017 TRIG 67 05/14/2017 HDL 68 05/14/2017 LDLCALC 73 05/14/2017 ALT 11 05/14/2017 AST 15 05/14/2017 NA 140 07/04/2017 K 4.0 07/04/2017 CREATININE 0.79 07/04/2017 BUN 6 07/04/2017 CO2 23 07/04/2017 INR 1.06 07/04/2017 GLU 85 07/04/2017 Vitals: Vitals: 07/17/17 1043 BP: 102/70 Pulse: 85 Weight: 148 lb (67.1 kg) Height: 5' 5 (1.651 m) Body mass index is 24.63 kg/m??. Physical Exam: GEN: Alert, pleasant and oriented x3. Skin W/D. Resp easy. In no acute distress. HEENT: Sclerae anicteric. EOM's intact. NECK: Supple. Carotids without bruits. No thyromegaly. LUNGS: clear to auscultation. Chest wall nontender. HEART: RRR, no murmur, gallop, or rub. No jugular venous distension. ABD: soft, nontender, positive bowel soundsEXT: no edema, +2 radial, +2 PT pulses NEURO: no obvious focal abnormalities Assessment and Plan: ASD S/p ASD closure device No symptoms of chest pain or shortness of breath Groin sites healing well Hx of Biliary atresia s/p Amber procedure as an infant Hepatology recommends asa 81 mg only Chest pain Resolved Celiac artery stenosis Hx of surgical release 11/04 Impression/Plan Stable s/p ASD closure Asa 81 mg daily D/c plavix in 3 months , continue ASA lifelong Echo limited in 3 mos and one year F/u as previously scheduled in November Call for any problems or questions documented in this encounter Plan of Treatment Upcoming Encounters Date Type Department Care Team (Late st Contact Info) Description 04/24/2024 10:45 AM EST Clinical Support [facility] [address] [place] [address] documented as of this encounter Goals Goal Patient Goal Type Associated Problems Recent Progress Patient-Stated? Author Maintain a healthy diet, exercise regularly and maintain an ideal body weight General No Thea Rubio MD Stay Tobacco Free Lifestyle No Thea Rubio MD documented as of this encounter Results * EC ECHOCARDIOGRAM LIMITED [...] septum without evidenceof residual shunting. 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 IMG ECHO ORDERABLES Final Resu lt documented in this encounter Visit Diagnoses Diagnosis H/O Amplatzer atrial septal defect closure- Primary Personal history of surgery to heart and great vessels, presenting hazards to health ASD (atrial septal defect) Ostium secundum type atrial septal defect ASD (atrial septal defect) Ostium secundum type atrial septal defect H/O Amplatzer atrial septal defect closure Personal history of surgery to heart and great vessels, presenting hazards to health documented in this encounter Discontinued Medications Medication Sig Discontinue Reason Start Date End Da te Aspirin 325 mg Oral Tablet, Delayed Release (E.C.) Take 1 Tab by mouth daily. Dose adjustment 07/11/2017 07/18/2017 documented as of this encounter Care Teams Unit Trust Manager Relationship Specialty Start Date End Date Thea Rubio MD PCP - General Family Medicine 09/13/14 07/16/22 documented as of this encounter
--- OUTSIDE RECORDS SUMMARY | 2024-03-14 18:21 | XMS_ITS | Encounter Summary ---
Author Organization [place] [address] Care Team Providers Care Project Manager Process Development Name Role Phone Thea Rubio MD Primary Care Provider +1- [phone] Reason for Visit * Reason Onset Date Comments Medication Management 08/07/2017 Encounter Details Date Type Department Care Team (Late st Contact Info) Description 08/07/2017 Telephone [facility] [address] [place] [address] Thea Rubio MD [address] [place], [place] [id number] Medication Management Social History Tobacco Use Types Packs/Day Years [...] Refills Last Filled Start Date End Date LORazepam (ATIVAN) 1 mg Oral Tablet Take 0.5-1 Tabs by mouth 2 times daily as needed for Anxiety. 14 Tab 08/07/2017 10/06/2017 documented in this encounter Miscellaneous Notes * Telephone Encounter - Thea Rubio MD - 08/07/2017 10:47 AM EDT Called [facility]al[facility] to pharmacy, spoke with pt, expressed my condolences. of massive [place]. Discussed fact that med can be habit forming so use only prn and only short time Don't drive when she takes it as it can impair her driving and make her sleepy * Telephone Encounter - Dejuan Covington - 08/07/2017 8:27 AM EDT She lost her this week and would like an RX to help her get through this. Would like something that works quickly and is stronger then what she has had in the past. documented in this encounter Plan of Treatment Upcoming Encounters Date Type Department Care Team (Late st Contact Info) Description 04/24/2024 10:45 AM EST Clinical Support [facility] [address] [place] [address] documented as of this encounter Goals Goal Patient Goal Type Associated Problems Recent Progress Patient-Stated? Author Maintain a healthy diet, exercise regularly and maintain an ideal body weight General No Thea Rubio MD Stay Tobacco Free Lifestyle No Thea Rubio MD documented as of this encounter Visit Diagnoses Not on filedocumented in this encounter Care Teams Project Manager Process Development Relationship Specialty Start Date End Date Thea Rubio MD PCP - General Family Medicine 09/13/14 07/16/22 documented as of this encounter
--- OUTSIDE RECORDS SUMMARY | 2024-03-14 18:21 | XMS_ITS | Encounter Summary ---
[place] [address] Care Team Providers Care Key Account Executive Name Role Phone Thea Rubio MD Primary Care Provider [phone] Reason for Visit * Auth/Cert/Inpt Specialty Diagnoses / Procedures Referred By Contac t Referred To Contact Diagnoses Atrial septal defect Atrial septal defect [Q21.1] Procedures ME PERC CLOS,RIK INTERATRIAL COMMUN W/IMPL ATRIAL SEPTAL DEFECT CLOSURE Referral ID Status Reason Start Date Expiration Date Visits Re quested Visits Authorized [id number] 1 1 Encounter Details Date Type Department Care Team (Late st Contact Info) Description 07/09/2017 1:00 PM EDT - 07/09/2017 3:00 PM EDT Surgery [facility] [place] [place] [address] Genaro Ibarra MD [address] [place] [address] PERCUTANEOUS CLOSURE PATENT FORAMEN OVALE/ ATRIAL SEPTAL DEFECT (CONTROL ROOM AGENT) Surgery Details Date/Time Status Location OR Service Patient Class Case Class Case Type Trauma Case? 07/09/2017 1:00 PM Posted [facility] CCL 3 Cardiac Same Day Surgery N/A Panel 1 Procedure LRB Anes Op Region Wound Class Comments PERCUTANEOUS CLOSURE PATENT FORAMEN OVALE/ ATRIAL SEPTAL DEFECT (CONTROL ROOM AGENT) N/A Moderate Sedation ATRIAL SEPTAL DEFECT CLOSURE RIGHT HEART CATHETERIZATION N/A Moderate Sedation Surgeon Surgeon Role Service Panel Genaro Ibarra MD Primary Cardiac 1 Special Needs 11:00 documented in this encounter Social History Tobacco [...] Sign Reading Time Taken Comments Blood Pressure 106/65 07/10/2017 1:07 PM EDT Pulse 69 07/10/2017 1:07 PM EDT Temperature 37.1 ??C (98.7 ??F) 07/10/2017 8:36 AM ED T Respiratory Rate 16 07/10/2017 1:07 PM EDT Oxygen Saturation 98% 07/10/2017 1:07 PM EDT Inhaled Oxygen Concentration - - Weight 65.8 kg (145 lb) 07/09/2017 11:22 AM EDT Height 165.1 cm (5' 5 ) 07/09/2017 11:22 AM EDT Body Mass Index 24.13 07/09/2017 11:22 AM EDT documented in this encounter Discharge Summaries * Elvre Jones, [facility] - 07/10/2017 10:09 AM EDT [facility] Discharge Summary Patient Name: Gardenia Childress : 1980 Admit Date: 07/09/2017 Discharge Date:07-10-17 Admitting Physician: Genaro Ibarra MD Discharge Physician: Dr Soriano Reason for Hospitalization: ASD Hospital Course/Significant Findings: ASD closure procedure Discharge Exam: See progress note Discharge Diagnoses: ASD closure Condition at Discharge: good Disposition: Home Discharge Medications:: Medication List START taking these medications Aspirin 325 mg Tbec Dose: 325 mg Qty: 90 Tab Refills: 3 Start: 07/11/2017 325 mg, Oral, DAILY clopidogrel 75 mg Tab Dose: 75 mg Qty: 90 Each Refills: 1 Start: 07/11/2017 Commonly known as: PLAVIX 75 mg, Oral, DAILY CONTINUE taking these medications dicyclomine 10 mg Cap Dose: 10 mg Qty: 120 Cap Refills: 2 Commonly known as: BENTYL 10 mg, Oral, 4 TIMES DAILY PRN SUMAtriptan 25 mg Tab Qty: 9 Tab Refills: 4 Commonly known as: IMITREX TAKE ONE TABLET BY MOUTH NEEDED FOR MIGRAINE topiramate 50 mg Tab Qty: 270 Tab Refills: 1 Commonly known as: TOPAMAX TAKE ONE TABLET BY MOUTH TWICE A DAY. MAY ADD EXTRA PILL AT NIGHT WHEN HAVING MIGRAINE FLARES. Where to Get Your Medications These medications were sent to [facility] [address] [place] [address], [place] [address] - [address] - [phone], [place] [address] ?? Aspirin 325 mg Tbec ?? clopidogrel 75 mg Tab Follow Up: Migue Anne MD [address] [place] [id number] Schedule an appointment as soon as possible for a visit in 1 week Signed: Elver Jones APRN 07/10/2017 10:09 AM Cosigned by Rosa Soriano MD at 07/10/2017 5:36 PM EDT documented in this encounter Discharge Instructions * Discharge Instructions* Mady Castro RN - 07/10/2017 4:00 PM EDT Images from the original note were not included. [facility] Discharge Instructions - Leg Access Best wishes are extended to you on behalf of [facility] as you are discharged. Because we are most concerned with your health, we suggest you carefully read and take an active role in your overall health and follow these instructions. IF YOU ARE DISCHARGED THE DAY OF YOUR PROCEDURE: 1. Return to your usual diet including, low fat, no added salt. 2. Rest quietly today with the leg used for the procedure kept straight. Limit the use of stairs. Do not drive. 3. Leave the bandage in place over the puncture site until next day, when you remove the bandage, shower, and gently cleanse leg with soap and water. A Band- Aid may be placed over the area if desired. AFTER THE FIRST 24 HOURS FOLLOWING THE PROCEDURE: 1. You may climb stairs. 2. You may drive a car. 3. You may shower, wash gently in your groin area. You may NOT take a bath, swim, or use hot tubs for 5 days following your procedure. 4. You may NOT do strenuous exercise for five days, including golf, bowling, tennis, jogging, sexual relations, etc., unless otherwise instructed by your doctor. 5. You may NOT do heavy lifting, object heavier than 10 pounds, for five days, unless otherwise instructed by your doctor. You may return to your normal activities on {Time; dates multiple:53125}. You may return to work on {Time; dates multiple:75184}. Do NOT stop taking ASPIRIN and PLAVIX (CLOPIDOGREL) for any reason without first discussing with [...] THE HOSPITAL EMERGENCY ROOM. PAIN ASSESSMENT Location: Condition: {Desc; acute/chronic/recent:97978} Current Pain Intensity: {Desc; severity w/0-10 scale:5014} Pain Management: {PAIN MANAGEMENT INSTRUCTIONS:77984404} IF PAIN INTENSIFIES OR PAIN IS UNRELIEVED WITH MEDICATIONS ORDERED, CALL YOUR PHYSICIAN. MEDICATIONS: *Contact your physician before resuming any medication from home not listed in the discharge medication instruction sheet. PRESCRIPTIONS: {Prescriptions for Discharge:73525223} FOLLOW-UP TO DOCTOR: {IP FOLLOW UP VISIT:33938219} ADDITIONAL INSTRUCTIONS: * Smoking is hazardous to your health. Second hand smoke is hazardous to those around you. If you smoke, you can contact your Primary Care Provider for smoking cessation information and classes. * See your physician regularly. * HEART [...] you when you return to your physician. Clopidogrel tablets What is this medicine? CLOPIDOGREL (kloh PID oh grel) helps to prevent blood clots. This medicine is used to prevent heartattack, stroke, or other vascular events in people who are at high risk. This medicine may be used for other purposes; ask your health care provider or pharmacist if you have questions. What should I tell my health care provider before I take this medicine? They need to know if you have any of the following conditions: -bleeding disorder -bleeding in the brain Aspirin and Your Heart Aspirin is a medicine that affects the way blood clots. Aspirin can be used to help reduce the riskof blood clots, heart attacks, and other heart-related problems. Aspirin, ASA oral tablets What is this medicine? ASPIRIN ( pir in) is a pain reliever. It is used to treat mild pain and fever. This medicine is also used as directed by a doctor to prevent and to treat heart attacks, to prevent strokes, and to treat arthritis or inflammation. This medicine may be used for other purposes; ask your health care provider or pharmacist if you have questions. What should I tell my health care provider before I take this medicine? They need to know if you have any of these conditions: -anemia -asthma -bleeding problems -child with chickenpox, the flu, or other viral infection -diabetes -gout -if you frequently drink alcohol containing drinks -kidney disease -liver disease -low level of vitamin K -lupus -smoke tobacco -stomach ulcers or other problems -an unusual or allergic reaction to aspirin, tartrazine dye, other medicines, dyes, or preservatives - or trying to get -breast-feeding How should I use this medicine? Take this medicine by mouth with a glass of water. Follow the directions on the package or prescription label. You can take this medicine with or without food. If it upsets your stomach, take it withfood. Do not take your medicine more often than directed. Talk to your third steel pourer regarding the use of this medicine in children. While this drug may be prescribed for children as young as 12 years of age for selected conditions, precautions do apply. Children and teenagers should not use this medicine to treat chicken pox or flu symptoms unless directed by a doctor. Patients over 65 years old may have a stronger reaction and need a smaller dose. Overdosage: If you think you have taken too much of this medicine contact a poison control center or emergency room at once. NOTE: This medicine is only for you. Do not share this medicine with others. What if I miss a dose? If you are taking this medicine on a regular schedule and miss a dose, take it as soon as you can. If it is almost time for your next dose, take only that dose. Do not take double or extra doses. What may interact with this medicine? Do not take this medicine with any of the following medications: -cidofovir -ketorolac -probenecid This medicine may also interact with the following medications: -alcohol -alendronate -bismuth subsalicylate -flavocoxid -herbal supplements like feverfew, garlic, carson, ginkgo biloba, horse chestnut -medicines for diabetes or glaucoma like acetazolamide, methazolamide -medicines for gout -medicines that treat or prevent blood clots like enoxaparin, heparin, ticlopidine, warfarin -other aspirin and aspirin-like medicines -NSAIDs, medicines for pain and inflammation, like ibuprofen or naproxen -pemetrexed -sulfinpyrazone -varicella live vaccine This list may not describe all possible interactions. Give your health care provider a list of all the medicines, herbs, non-prescription drugs, or dietary supplements you use. Also tell them if you smoke, drink alcohol, or use illegal drugs. Some items may interact with your medicine. What should I watch for while using this medicine? If you are treating yourself for pain, tell your doctor or health day care center director if the pain lasts more than 10 days, if it gets worse, or if there is a new or different kind of pain. Tell your doctor if you see redness or swelling. Also, check with your doctor if you have a fever that lasts formore than 3 days. Only take this medicine to prevent heart attacks or blood clotting if prescribed by your doctor or health day care center director. Do not take aspirin or aspirin-like medicines with this medicine. Too much aspirin can be dangerous. Always read the labels carefully. This medicine can irritate your stomach or cause bleeding problems. Do not smoke cigarettes or drink alcohol while taking this medicine. Do not lie down for 30 minutes after taking this medicine to prevent irritation to your throat. If you are scheduled for any medical or dental procedure, tell your healthcare provider that you are taking this medicine. You may need to stop taking this medicine before the procedure. This medicine may be used to treat migraines. If you take migraine medicines for 10 or more days a month, your migraines may get worse. Keep a diary of headache days and medicine use. Contact your healthcare professional if your migraine attacks occur more frequently. What side effects may I notice from receiving this medicine? Side effects that you should report to your doctor or health day care center director as soon as possible: -allergic reactions like skin rash, itching or hives, swelling of the face, lips, or tongue -breathing problems -changes in hearing, ringing in the ears -confusion -general ill feeling or flu-like symptoms -pain on swallowing -redness, blistering, peeling or loosening of the skin, including inside the mouth or nose -signs and symptoms of bleeding such as bloody or black, tarry stools; red or dark-brown urine; spitting up blood or brown material that looks like coffee grounds; red spots on the skin; unusual bruising or bleeding from the eye, gums, or nose -trouble passing urine or change in the amount of urine -unusually weak or tired -yellowing of the eyes or skin Side effects that usually do not require medical attention (report to your doctor or health day care center director if they continue or are bothersome): -diarrhea or constipation -headache -nausea, vomiting -stomach gas, heartburn This list may not describe all possible side effects. Call your doctor for medical advice about side effects. You may report side effects to FDA at 1-974-VHF-7383. Where should I keep my medicine? Keep out of the reach of children. Store at room temperature between 15 and 30 degrees C (59 and 86 degrees F). Protect from heat and moisture. Do not use this medicine if it has a strong vinegar smell. Throw away any unused medicine after the expiration date. NOTE: This sheet is a summary. It may not cover all possible information. If you have questions about this medicine, talk to your doctor, pharmacist, or health care provider. ?? 2016, Elsevier/Gold Standard. (2013-12-07 11:30:31) SHOULD I TAKE ASPIRIN? Your health care provider will help you determine whether it is safe and beneficial for you to takeaspirin daily. Taking aspirin daily may be beneficial if you: ?? Have had a heart attack or chest pain. ?? Have undergone open heart surgery such as coronary artery bypass surgery (CABG). ?? Have had coronary angioplasty. ?? Have experienced a stroke or transient ischemic attack (TIA). ?? Have peripheral vascular disease (PVD). ?? Have chronic heart rhythm problems such as atrial fibrillation. ARE THERE ANY RISKS OF TAKING ASPIRIN DAILY? Daily use of aspirin can increase your risk of side effects. Some of these include: ?? Bleeding. Bleeding problems can be minor or serious. An example of a minor problem is a cut thatdoes not stop bleeding. An example of a more serious problem is stomach bleeding or bleeding into the brain. Your risk of bleeding is increased if you are also taking non-steroidal anti-inflammatory medicine (NSAIDs). ?? Increased bruising. ?? Upset stomach. ?? An allergic reaction. People who have nasal polyps have an increased risk of developing an aspirin allergy. WHAT ARE SOME GUIDELINES I SHOULD FOLLOW WHEN TAKING ASPIRIN? ?? Take aspirin only as directed by your health care provider. Make sure you understand how much you should take and what form you should take. The two forms of aspirin are: Zhn-fguusyr-gwekmv. This type of aspirin does not have a coating and is absorbed quickly. Iqz-bjaiugk-ddimvo aspirin is usually recommended for people with chest pain. This type of aspirin also comesin a chewable form. Enteric-coated. This type of aspirin has a special coating that releases the medicine very slowly. Enteric-coated aspirin causes less stomach upset than use-wptgvyh-byfcir aspirin. This type of aspirin should not be chewed or crushed. ?? Drink alcohol in moderation. Drinking alcohol increases your risk of bleeding. WHEN SHOULD I SEEK MEDICAL CARE? ?? You have unusual bleeding or bruising. ?? You have stomach pain. ?? You have an allergic reaction. Symptoms of an allergic reaction include: Hives. Itchy skin. Swelling of the lips, tongue, or face. ?? You have ringing in your ears. WHEN SHOULD I SEEK IMMEDIATE MEDICAL CARE? ?? Your bowel movements are bloody, dark red, or black in color. ?? You vomit or cough up blood. ?? You have blood in your urine. ?? You cough, wheeze, or feel short of breath. If you have any of the following symptoms, this is an emergency. Do not wait to see if the pain will go away. Get medical help at once. Call your local emergency services (911 in the [place] Do not drive yourself to the hospital. ?? You have severe chest pain, especially if the pain is crushing or pressure- like and spreads to the arms, back, neck, or jaw.? You have stroke-like symptoms, such as: ?? Loss of vision. ?? Difficulty talking. ?? Numbness or weakness on one side of your body. ?? Numbness or weakness in your arm or leg. ?? Not thinking clearly or feeling confused. ?? This information is not intended to replace advice given to you by your health care provider. Make sure you discuss any questions you have with your health care provider. Document Released: 03/20/2009 Document Revised: 04/28/2015 Document Reviewed: 07/13/2014 [employer] Interactive Patient Education ??2016 [employer]. -stomach or intestinal ulcers -stroke or transient ischemic attack -an unusual or allergic reaction to clopidogrel, other medicines, foods, dyes, or preservatives - or trying to get -breast-feeding How should I use this medicine? Take this medicine by mouth with a drink of water. Follow the directions on the prescription label.You may take this medicine with or without food. Take your medicine at regular intervals. Do not take your medicine more often than directed. Talk to your third steel pourer regarding the use of this medicine in children. Special care may be needed. Overdosage: If you think you have taken too much of this medicine contact a poison control center or emergency room at once. NOTE: This medicine is only for you. Do not share this medicine with others. What if I miss a dose? If you miss a dose, take it as soon as you can. If it is almost time for your next dose, take only that dose. Do not take double or extra doses. What may interact with this medicine? -aspirin -blood thinners like cilostazol, enoxaparin, ticlopidine, and warfarin -certain medicines for depression like citalopram, fluoxetine, and fluvoxamine -certain medicines for fungal infections like ketoconazole, fluconazole, and voriconazole -certain medicines for HIV infection like delavirdine, efavirenz, and etravirine -certain medicines for seizures like felbamate, oxcarbazepine, and phenytoin -chloramphenicol -fluvastatin -isoniazid, INH -medicines for inflammation like ibuprofen and naproxen -modafinil -nicardipine -over-the counter supplements like echinacea, feverfew, fish oil, garlic, carson, ginkgo, green tea, horse chestnut -quinine -stomach acid blockers like cimetidine, omeprazole, and esomeprazole -tamoxifen -tolbutamide -topiramate -torsemide This list may not describe all possible interactions. Give your health care provider a list of all the medicines, herbs, non-prescription drugs, or dietary supplements you use. Also tell them if you smoke, drink alcohol, or use illegal drugs. Some items may interact with your medicine. What should I watch for while using this medicine? Visit your doctor or health day care center director for regular check ups. Do not stop taking your medicine unless your doctor tells you to. Notify your doctor or health day care center director and seek emergency treatment if you develop breathing problems; changes in vision; chest pain; severe, sudden headache; pain, swelling, warmth in the leg; trouble speaking; sudden numbness or weakness of the face, arm or leg. These can be signs that your condition has gotten worse. If you are going to have surgery or dental work, tell your doctor or health day care center director that you are taking this medicine. Certain genetic factors may reduce the effect of this medicine. Your doctor may use genetic tests to determine treatment. What side effects may I notice from receiving this medicine? Side effects that you should report to your doctor or health day care center director as soon as possible: -allergic reactions like skin rash, itching or hives, swelling of the face, lips, or tongue -breathing problems -changes in vision -fever -signs and symptoms of bleeding such as bloody or black, tarry stools; red or dark-brown urine; spitting up blood or brown material that looks like coffee grounds; red spots on the skin; unusual bruising or bleeding from the eye, gums, or nose -sudden weakness -unusual bleeding or bruising Side effects that usually do not require medical attention (report to your doctor or health day care center director if they continue or are bothersome): -constipation or diarrhea -headache -pain in back or joints -stomach upset This list may not describe all possible side effects. Call your doctor for medical advice about side effects. You may report side effects to FDA at 6-217-NRS-0544. Where should I keep my medicine? Keep out of the reach of children. Store at room temperature of 59 to 86 degrees F (15 to 30 degrees C). Throw away any unused medicine after the expiration date. NOTE: This sheet is a summary. It may not cover all possible information. If you have questions about this medicine, talk to your doctor, pharmacist, or health care provider. ?? 2016, Elsevier/Gold Standard. (2013-08-03 16:34:37) documented in this encounter Ordered Prescriptions Prescription Sig Dispense Quantity Refills Last Filled Start Date End Date clopidogrel (PLAVIX) 75 mg Oral Tablet Take 1 Tab by mouth daily. 90 Each 1 07/11/2017 04/02/2018 Aspirin 325 mg Oral Tablet, Delayed Release (E.C.) Take 1 Tab by mouth daily. 90 Tab 3 07/11/2017 07/18/2017 documented in this encounter Discharge Disposition Disposition Code Departure Means Destination Home or Self Custodial documented in this encounter Progress Notes * Mady Castro RN - 07/10/2017 4:30 PM EDT Patient discharged. Echo results in Epic. Reviewed discharge instructions with pt and pt's spouse, both verbalized understanding. Reviewed new medications, Asa and Plavix. For side-effects and benefit. Reviewed post leg access at discharge with pt. Handout provided. Heart monitor removed. IV removed without complication. Pt's spouse to transport home. 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 SUBJECTIVE: The patient has no CV complaints from over night post ASd closure . REVIEW OF SYSTEMS: NEGATIVE FOR: chest pain, dyspnea, palpitations, dizziness, syncope, edema POSITIVE FOR: See subjective. Review of systems is otherwise negative. MEDICATIONS: Scheduled Medications: ??? Aspirin 325 mg Oral Daily ??? clopidogrel 75 mg Oral Daily ??? sodium chloride 0.9% Intravenous 3 times per day ??? topiramate 25 mg Oral BID Continuous Infusions: ??? sodium chloride 0.9 % 1,000 mL (07/09/17 1155) PRN Medications: acetaminophen, diazePAM, metoclopramide HCl, oxyCODONE-acetaminophen, sodium chloride 0.9%, sodium chloride 0.9% PHYSICAL EXAMINATION: Vitals: 07/10/17 0836 BP: 99/62 Pulse: 80 Resp: 16 Temp: 98.7 ??F (37.1 ??C) SpO2: 97% Temp (24hrs), Av.6 ??F (37 ??C), Min:98 ??F (36.7 ??C), Max:99.2 ??F (37.3 ??C) Weight: 145 lb (65.8 kg) Intake/Output Summary (Last 24 hours) at 07/10/17 0957 Last data filed at 07/09/172056 Gross per 24 hour Intake 0 ml Output 250 ml Net -250 ml Physical Exam: GEN: Alert, pleasant and oriented x3. In no acute distress. LUNGS: clear to auscultation. Chest wall nontender. HEART: RRR, no murmur, gallop, or rub. No jugular venous distension. ABD: soft, nontender, positive bowel sounds. EXT: no edema, +2 radial, +2 PT pulses Musculoskeletal: No cyanosis, discoloration, clubbing . NEURO: no obvious focal abnormalities SKIN: warm and dry. No new rashes Left groin unremarkable Psychologist Research Assistant: b SR Vitals: Vitals: 07/09/17 2215 07/10/17 0003 07/10/17 0441 07/10/17 0836 BP: 99/55 103/66 90/59 99/62 BP Location: Left arm Left arm Left arm Patient Position: Semi Fowlers Semi Fowlers Semi Fowlers Pulse: 66 65 79 80 Resp: Temp: 98.4 ??F (36.9 ??C) 98.9 ??F (37.2 ??C) 98.7 ??F (37.1 ??C) TempSrc: Oral Oral Oral SpO2: 98% 97% 97% Weight: Height: Intake and Output: Intake/Output Summary (Last 24 hours) at 07/10/17 0957 Last data filed at 07/09/172056 Gross per 24 hour Intake 0 ml Output 250 ml Net -250 ml Weight: Wt Readings from Last 3 Encounters: 07/09/17 145 lb (65.8 kg) 07/07/17 145 lb (65.8 kg) 06/20/17 144 lb (65.3 kg) LABORATORY AND STUDIES: Lab Results Component Value Date WBC 7.7 07/04/2017 HGB 13.3 07/04/2017 HCT 39.4 07/04/2017 MCV 86.8 07/04/2017 PLT 258 07/04/2017 ACTIVE PROBLEM LIST: There are no active hospital problems to display for this patient. ASSESSMENT AND PLAN: This is a 37 y.o. female who was admitted on 07/09/2017 and has the following issues: 1. ASD closure -no complications over night -ASA/Plavix for 6 months then ASA following -limited echo today Anticipate DC home later today Dr Anne in 1-2 weeks Fredy Jones APRN 07/10/2017 9:57 AM * Thuan Michelle - 07/09/2017 8:47 PM EDT 07/09/171999 Pastoral Care Encounter Visited With Patient Date of visit 07/09/17 Visit Type Initial [facility] Pastoral care brochure * Jag Lombardo RN - 07/09/2017 6:05 PM EDT 07/09/171801 Assessment Complete Actual Discharge Plan /////// 07/09/17, 180, cc, ATRIAL SEPTAL DEFECT CLOSURE. indpt. . op f/u w/ cardio after dc. pcp- tcheng. disposition at dc- home. transport - spouse Care Coordination Assessment Obtain prescription meds at discharge? Medicare D/Medicaid Obtain follow up care after discharge? Other (Comment) Transportation at discharge Personal vehicle Discussed discharge plan with patient/family Other (Comment) (primary rn to review dc instruction & f/u s @ time of dc ) Agency/Facility Options Offered, list provided N/A [facility] Financial Disclosure completed? N/A Follow-up Visit Follow-up Needed? Complete * Brittany Saucedo RN - 07/09/2017 5:10 PM EDT Right and left femoral sheaths removed. Pressure applied for 15 minutes. No complications. New dressings applied. CDI. No bleeding. No hematoma. BR restrictions reinforced. Verbalizes understanding. Will monitor. * Brittany Saucedo RN - 07/09/2017 4:07 PM EDT Pt arrived to room [facility] from [facility] via stretcher. VSS. Right and left groins site CDI. No bleeding.No hematoma. Bilateral sheaths intact. Pt instructed to remain on strict BR with head down and right and left legs straight. Verbalizes understanding. Instructed to hold pressure on groin sites when laughing, sneezing, coughing, etc. Verbalizes understanding. Instructed on the use of call light, [facility] and PIC. Verbalizes understanding. No questions or concerns at this time. Skin assessment complete with Agustin Amezquita RN. No issues noted. Will monitor. documented in this encounter H&P Notes * Genaro Ibarra MD - 07/09/2017 12:36 PM EDT PHYSICIAN IMMEDIATE PRE-PROCEDURE UPDATE H&P and SEDATION ASSESSMENT Risks, benefits, potential complications and alternatives have been discussed with patient and/or patient's legal authorized underwriting sales representative. HISTORY AND PHYSICAL H&P is completed and reviewed; progress notes reflect changes in patient condition. SEDATION ASSESSMENT The patient's immediate pre-procedure physical assessment indicates the patient is a suitable candidate for and agrees to the planned sedation: Moderate sedation Patient has been NPO for a sufficient period of time to allow for gastric emptying. Date of last liquid consumption: 07/08/17 Time of last liquid consumption: 2199 Date of last solid food consumption: 07/08/17 Time of last solid food consumption: 2199 Comment: Patient has no previous adverse experience to anesthesia. Comment: Vital Signs: Temp: 99.2 ??F (37.3 ??C) Pulse: 77 Resp: 14 BP: 113/59 SpO2: 99 % Comment: Patient's pain has been assessed and based on patient report consideration has been given as to howit might alter the patient's sedation plan. Comment: Patient's airway has been assessed and consideration has been given as to how it might alter the patient's response to sedation. Mallampati Score: II (soft palate, uvula, fauces visible) Cath PCI Bleeding Risk Score Road Traffic Controller; <=25 mild, 26-65 mod, >65 high: 35 Height: 5' 5 (165.1 cm) Weight: 145 lb (65.8 kg) BMI (Calculated): 24.2 Comment: Allergies Allergen Reactions ??? Latex Rash ??? Morphine Nausea And Vomiting Source Note - Genaro Ibarra MD - 06/20/2017 3:20 PM EST CHIEF COMPLAINT Chief Complaint Patient presents with ??? Atrial Septal Defect F/u WAYNE with Dr Dayana VALENTINE Gardenia Childress is a 37 y.o. female who presents here for routine scheduled follow up for Secundum atrial septal defect HPI We are seeing her today to discuss a percutaneous closure of her recently diagnosed secundum atrialseptal defect. She is asymptomatic but has mild right heart dilatation noted on transthoracic and transesophageal echocardiography. We feel that the indication to proceed with percutaneous closures prevention of atrial arrhythmias. MEDICATIONS Current Outpatient Prescriptions: ??? dicyclomine (BENTYL) 10 mg Oral Capsule, [...] MIGRAINE FLARES., Disp: 270 Tab, Rfl: 1 ALLERGIES Allergies Allergen Reactions ??? Latex Rash ??? Morphine Nausea And Vomiting The past medical history, pertinent social history, and family history were reviewed and verified. ROS: No unintentional weight loss, bleeding, progressive neurologic complaints, fevers or chills. Other systems were reviewed and were negative PHYSICAL EXAM Vital Signs: BP 96/64 (BP Location: Left arm, Patient Position: Sitting) Pulse 72 Ht 5' 5 (1.651 m) Wt 144 lb (65.3 kg) BMI 23.96 kg/m?? ,Body mass index is 23.96 kg/m??. Constitutional: No acute distress, non-toxic appearance HEENT: Normal Neck- supple. No bruit, JVP normal Respiratory: clear Cardiovascular: Normal S1 and S2. No audible murmurs or gallops. Regular rhythm Abdominal: Soft, nondistended, normal bowel sounds, nontender, no organomegaly, no mass, Extremities: No edema Neurologic: Alert & oriented x 3, Moves all extremities well. Grossly nonfocal exam. Pertinent recent laboratory findings were reviewed EKG No results found for this visit on 06/20/17. ASSESSMENT: 1. Atrial septal defect PLAN Percutaneous ASD closure was discussed in detail The risks, benefits, rationale, and alternatives to the planned procedure were discussed, and She agrees to proceed as planned. Questions were answered to the patient's satisfaction. Additional plans will be forthcoming No Follow-up on file. This chart was completed using voice recognition technology and may contain unintended errors documented in this encounter Miscellaneous Notes * Utilization Review Notes - Sho Langford RN - 07/10/2017 9:20 AM EDT OBS order following procedure: Percutaneous closure of an atrial septal defect Intracardiac echocardiography (ICE) done during therapeutic and diagnostic interventions. RHC documented in this encounter Plan of Treatment Upcoming Encounters Date Type Department Care Team (Late st Contact Info) Description 04/24/2024 10:45 AM EST Clinical Support [address] [id number] documented as of this encounter Goals Goal Patient Goal Type Associated Problems Recent Progress Patient-Stated? Author Maintain a healthy diet, exercise regularly and maintain an ideal body weight General No Thea Rubio MD Stay Tobacco Free Lifestyle No Thea Rubio MD documented as of this encounter Procedures Procedure Name Priority Date/Time Associated Diagnosis Comments SCANNED RHYTHM STRIPS 07/14/2017 7:59 PM EDT EC ECHOCARDIOGRAM LIMITED Routine 07/10/2017 12:31 PM EDT SCANNED RHYTHM STRIPS 07/10/2017 8:05 AM EDT SCANNED RHYTHM STRIPS 07/09/2017 9:58 PM EDT SCANNED RHYTHM STRIPS 07/09/2017 9:32 PM EDT ACTIVATED CLOTTING TIME LR POC Routine 07/09/2017 4:51 PM EDT ACTIVATED CLOTTING TIME LR POC Routine 07/09/2017 3:51 PM EDT XR CHEST AP PORTABLE STAT 07/09/2017 3:22 PM EDT CARDIAC PROCEDURE Routine 07/09/2017 2:1 8 PM EDT Atrial septal defect CARDIAC PROCEDURE Routine 07/09/2017 2:1 8 PM EDT Atrial septal defect ACTIVATED CLOTTING TIME LR POC Routine 07/09/2017 1:59 PM EDT ACTIVATED CLOTTING TIME LR POC Routine 07/09/2017 1:46 PM EDT RETAIL PROJECT MERCHANDISER HEMODYNAMIC WAVEFORMS Routine 07/09/2017 1:34 PM EDT POCT URINE Routine 07/09/2017 11:19 AM EDT documented in this encounter Results * SCANNED RHYTHM STRIPS (07/14/2017 7:59 PM EDT) Anatomical Region Laterality Modality Other 07/14/2017 7:59 PM EDT us Unknown Unknown IMG ECG ORDERABLES Final Result * EC ECHOCARDIOGRAM LIMITED (07/10/2017 12:31 PM EDT) [facility] Ejection Fraction 60-65 % [place] Anatomical Region Laterality Modality Electrocardiogra phy 07/10/2017 12:0 9 PM EDT Impressions 07/10/2017 1:17 PM EDT ??CONCLUSIONS ??Left ventricular ejection fraction is in the normal range. ?ASD closure divice without evidence of residual interatrial shunt. ?? Wilfred Angeles MD Narrative Procedure Note Wilfred Angeles MD - 07/10/2017 IMPRESSION CONCLUSIONS Left ventricular ejection fraction is in the normal range. ASD closure divice without evidence of residual interatrial shunt. Wilfred Angeles MD us Genaro Ibarra MD IMG ECHO ORDERABLES Final Resu lt * SCANNED RHYTHM STRIPS (07/10/2017 8:05 AM EDT) Anatomical Region Laterality Modality Other 07/10/2017 8:05 AM EDT us Unknown Unknown IMG ECG ORDERABLES Final Result * SCANNED RHYTHM STRIPS (07/09/2017 9:58 PM EDT) Anatomical Region Laterality Modality Other 07/09/2017 9:58 PM EDT us Unknown Unknown IMG ECG ORDERABLES Final Result * SCANNED RHYTHM STRIPS (07/09/2017 9:32 PM EDT) Anatomical Region Laterality Modality Other 07/09/2017 9:32 PM EDT us Unknown Unknown IMG ECG ORDERABLES Final Result * ACTIVATED CLOTTING TIME LR POC (07/09/2017 4:51 PM EDT) ACT-LR 167 89 - 169 second(s) 07/09/2017 5:17 PM EDT [facility] Blood BLOOD SPECIMEN / Unknown 07/09/2017 4:51 PM EDT 07/09/2017 5:17 PM EDT us Genaro Ibarra MD POINT OF CARE TEST ORDERABLES Final Result Performing Organization Address [facility] Co de Phone Number [place] [phone] * (ABNORMAL) ACTIVATED CLOTTING TIME LR POC (07/09/2017 3:51 PM EDT) ACT-LR 186(H) 89 - 169 second(s) 07/09/2017 3:55 PM EDT [facility] Blood BLOOD SPECIMEN / Unknown 07/09/2017 3:51 PM EDT 07/09/2017 3:55 PM EDT us Genaro Ibarra MD POINT OF CARE TEST ORDERABLES Final Result Performing Organization Address City/[facility] Co de Phone Number [address] [address] * XR CHEST AP PORTABLE (07/09/2017 3:22 PM EDT) Anatomical Region Laterality Modality Chest Radiographic Kristi ging 07/09/2017 3:22 PM EDT Impressions 07/09/2017 3:28 PM EDT Impression: ASD closure device faintly seen projecting over the spine. Lungs clear. No pneumothorax. Narrative 07/09/2017 3:28 PM EDT XR CHEST AP PORTABLE ??07/09/2017 3:22 PM HISTORY: ??-Post PFO/ASD Closure Comparison: 04/21/2017 Procedure Note Jesús Allred MD - 07/09/2017 XR CHEST AP PORTABLE 07/09/2017 3:22 PM HISTORY: -Post PFO/ASD Closure Comparison: 04/21/2017 IMPRESSION: Impression: ASD closure device faintly seen projecting over the spine.Lungs clear. No pneumothorax. us Genaro Ibarra MD IMG DIAGNOSTIC IMAGING ORDERAB LES Final Result * PFO/ASD CLOSURE-PERCUTANEOUS, RIGHT HEART CATH (RHC) (07/09/2017 2:18 PM EDT) Narrative [facility] - 07/10/2017 10:35 AM EDT Successful percutaneous ASD closure Right Heart [place] catheter inserted via the right femoral vein and advanced through right heart into pulmonary artery. Right atrial pressure is normal. There was no Pulmonary Hypertension. Pulmonary vascular resistance was normal us Genaro Ibarra MD CARDIAC CATH ORDERABLES Final Result Performing Organization Address [facility] Co de Phone Number [facility] * (ABNORMAL) ACTIVATED CLOTTING TIME LR POC (07/09/2017 1:59 PM EDT) ACT-LR 344(H) 89 - 169 second(s) 07/09/2017 2:14 PM EDT [facility] Blood BLOOD SPECIMEN / Unknown 07/09/2017 1:59 PM EDT 07/09/2017 2:14 PM EDT us Genaro Ibarra MD POINT OF CARE TEST ORDERABLES Final Result Performing Organization Address City/[facility]/ZIP Co de Phone Number [facility] [address] [place] [address] * (ABNORMAL) ACTIVATED CLOTTING TIME LR POC (07/09/2017 1:46 PM EDT) [facility] ACT-LR 394(H) 89 - 169 second(s) 07/09/2017 2:14 PM EDT [facility] Blood BLOOD SPECIMEN / Unknown 07/09/2017 1:46 PM EDT 07/09/2017 2:14 PM EDT us Genaro Ibarra MD POINT OF CARE TEST ORDERABLES Final Result Performing Organization Address [facility] de Phone Number [facility] [address] [place] [address] * RETAIL PROJECT MERCHANDISER HEMODYNAMIC WAVEFORMS (07/09/2017 1:34 PM EDT) 07/09/2017 1:34 PM EDT us Genaro Ibarra MD CARDIAC CATH ORDERABLES Final Result Performing Organization Address [facility] Co de Phone Number [facility] [address] [place] [address] * POCT URINE (07/09/2017 11:19 AM EDT) [facility] Preg Test, Ur negative POS/NEG [facility] Lot Number [id number] [facility] Expiration Date 2018-06-18 [facility] SeriAl # [facility] Control Line Yes YES/NO [facility] 07/09/2017 11:1 9 AM EDT us Genaro Ibarra MD POINT OF CARE TEST ORDERABLES Final Result Performing Organization Address [facility] Co de Phone Number [facility] [address] [place] [address] documented in this encounter Visit Diagnoses Diagnosis Atrial septal defect Ostium secundum type atrial septal defect Atrial septal defect Ostium secundum type atrial septal defect documented in this encounter Administered Medications Inactive Administered Medications - up to 1 most recent administrations Medication Order MAR Action Action Date Dose Rate Site 0.9 % NaCl infusion Intravenous, at 50 mL/hr, CONTINUOUS, Starting on Fri07/09/17 at 1130, Until Fri07/10/17 at 2053 New Bag 07/09/2017 11:55 AM EDT 1,000 mL 50 mL/hr Right Arm Aspirin EC tablet 325 mg 325 mg, Oral, ONCE, 1 dose, On Fri07/09/17 at 1130 Given 07/09/2017 12:09 PM EDT 325 mg Aspirin EC tablet 325 mg 325 mg, Oral, DAILY, First dose on Fri07/10/17 at 0900, Until Discontinued, Do not crush or chew., Post-op Given 07/10/2017 9:14 AM EDT 325 mg ceFAZolin (ANCEF) injection PRN, Starting on Fri07/09/17 at 1310, Until Fri07/09/17 at 1418, Intra-procedure(Cath) Given 07/09/2017 1:10 PM EDT 1 g Left Arm ceFAZolin (ANCEF) IVPB 1 g 1 g, Intravenous, *EVERY 8 HOURS, 2 doses, First dose on Fri07/09/17 at 2100, Last dose on Fri07/10/17 at 0500, Administer over 30 Minutes, Not to exceed 24 hours post procedure end time, Post-op IV Started 07/10/2017 5:56 AM EDT 1 g 100 mL/hr clopidogrel (PLAVIX) tablet 75 mg 75 mg, Oral, DAILY, First dose on Fri07/09/17 at 1615, Until Discontinued Given 07/10/2017 9:14 AM EDT 75 mg cyclobenzaprine (FLEXERIL) tablet 10 mg 10 mg, Oral, ONCE, 1 dose, On Fri07/09/17 at 1445 Given 07/09/2017 3:13 PM EDT 10 mg diazePAM (VALIUM) tablet 5 mg 5 mg, Oral, EVERY 8 HOURS PRN, 3 doses, Starting on Fri07/09/17 at 1433, Until Fri07/10/17 at 2052, Muscle spasms Given 07/09/2017 5:52 PM EDT 5 mg fentaNYL (SUBLIMAZE) injection PRN, Starting on Fri07/09/17 at 1310, Until Fri07/09/17 at 1418, Intra-procedure(Cath) Given 07/09/2017 2:14 PM EDT 50 mcg heparin (porcine) injection PRN, Starting on Fri07/09/17 at 1337, Until Fri07/09/17 at 1418, Intra-procedure(Cath) Given 07/09/2017 1:37 PM EDT 1,000 Units heparin 2 units/ml in 0.9% NaCl 500 mL CONTINUOUS PRN, Starting on Fri07/09/17 at 1310, Until Fri07/09/17 at 1418, Intra-procedure(Cath) New Bag 07/09/2017 1:50 PM EDT 1 'Bag' lidocaine 20 mg/mL (2 %) injection PRN, Starting on Fri07/09/17 at 1321, Until Fri07/09/17 at 1418, Intra-procedure(Cath) Given 07/09/2017 1:22 PM EDT 5 mL Left Groin metoclopramide HCl (REGLAN) injection 10 mg 10 mg, Intravenous, EVERY 6 HOURS PRN, Starting on Fri07/09/17 at 1510, Until Stephanie 07/10/17 at 2053, Nausea, Post-op Given 07/09/2017 5:04 PM EDT 10 mg midazolam (VERSED) injection PRN, Starting on Fri07/09/17 at 1310, Until Fri07/09/17 at 1418, Intra-procedure(Cath) Given 07/09/2017 2:02 PM EDT 1 mg oxyCODONE-acetaminophen (PERCOCET) 5-325 mg per tablet 1-2 Tab 1-2 Tablet, Oral, EVERY 4 HOURS PRN, Starting on Fri07/09/17 at 1510, Until Setphanie 07/10/17 at 2053, Pain, Begin with lowest dose unless otherwise directed. Reassess pain in one hour. If pain unrelieved, remainder of dose may be given to patient. Maximum adult dose of acetaminophen is 4000 mg from all sources in 24 hours. , Post-op Given 07/09/2017 8:46 PM EDT 2 Tablets topiramate (TOPAMAX) tablet 25 mg 25 mg, Oral, 2 TIMES DAILY, First dose on Fri07/09/17 at 2100, Until Discontinued Given 07/10/2017 9:14 AM EDT 25 mg documented in this encounter Active and Recently Administered Medications Times are shown in EDT. Scheduled Medication Order 07/08/2017 07/09/2017 07/10/2017 Aspirin EC tablet 325 mg (COMPLETED) 325 mg, Oral, ONCE, 1 dose, On Fri07/09/17 at 1130 1209 (Given - Provider: Sho Estrada RN) Aspirin EC tablet 325 mg 325 mg, Oral, DAILY, First dose on Fri07/10/17 at 0900, Until Discontinued, Do not crush or chew., Post-op 0914 (Given - Provid er: Mady Castro RN) ceFAZolin (ANCEF) IVPB 1 g (COMPLETED) 1 g, Intravenous, *EVERY 8 HOURS, 2 doses, First dose on Fri07/09/17 at 2100, Last dose on Fri07/10/17 at 0500, Administer over 30 Minutes, Not to exceed 24 hours post procedure end time, Post-op 2213 (IV Started - Provider: Brittany Saucedo RN)2243 (Stopped - Provider: Ulysses Ramos RN) 0556 (IV Started - Provider: Ulysses Ramos RN)0626 (Stopped - Provider: Mady Castro RN) clopidogrel (PLAVIX) tablet 75 mg 75 mg, Oral, DAILY, First dose on Fri07/09/17 at 1615, Until Discontinued 1634 (Given - Provider: Brittany Saucedo RN) 0914 (Given - Provider: Mady Castro RN) cyclobenzaprine (FLEXERIL) tablet 10 mg (COMPLETED) 10 mg, Oral, ONCE, 1 dose, On Fri07/09/17 at 1445 1513 (Given - Provider: Sho Estrada RN) sodium chloride 0.9% syringe Intravenous, EVERY 8 HOURS SCHEDULED (3 times per day), First dose on Fri07/09/17 at 1515, Until Discontinued, Flush with 3-5 mL saline for PERIPHERAL saline lock maintenance. 1614 (Not Given - Provider: Brittany Saucedo RN - Reason: IV Infusing)2214 (Not Given - Provider: Brittany Saucedo RN - Reason: IV Infusing) 0600 (Not Given - Provider: Mady Castro RN - Reason: IV Infusing)1400 (Not Given - Provider: Mady Castro RN - Reason: Other) topiramate (TOPAMAX) tablet 25 mg 25 mg, Oral, 2 TIMES DAILY, First dose on Fri07/09/17 at 2100, Until Discontinued 2212 (Given - Provider: Brittany Saucedo RN) 0914 (Given - Provider: Mady Castro, RN) Continuous Medication Order 07/08/2017 07/09/2017 07/10/2017 0.9 % NaCl infusion Intravenous, at 50 mL/hr, CONTINUOUS, Starting on Fri07/09/17 at 1130, Until Stephanie 07/10/17 at 2052 1155 (New Bag - Provider: Lissette Estrada RN)1700 (IV Stopped by Other - Provider: Mady Castro, RN) PRN Medication Order 07/08/2017 07/09/2017 07/10/2017 acetaminophen (TYLENOL) tablet 650 mg 650 mg, Oral, EVERY 4 HOURS PRN, Starting on Fri07/09/17 at 1510, Until Stephanie 07/10/17 at 205, Pain, Headaches, Maximum adult dose of acetaminophen is 4000 mg from all sources in 24 hours. , Post-op ceFAZolin (ANCEF) injection (CANCELED) PRN, Starting on Fri07/09/17 at 1310, Until Fri07/09/17 at 1418, Intra-procedure(Cath) 1310 (Given - Provider: Meghan Nichols RN) diazePAM (VALIUM) tablet 5 mg 5 mg, Oral, EVERY 8 HOURS PRN, 3 doses, Starting on Fri07/09/17 at 1433, Until Stephanie 07/10/17 at 2053, Muscle spasms 1752 (Given - Provider: Rogerio Caba RN) fentaNYL (SUBLIMAZE) injection (CANCELED) PRN, Starting on Fri07/09/17 at 1310, Until Fri07/09/17 at 1418, Intra-procedure(Cath) 1310 (Given - Provider: Meghan Nichols RN)1319 (Given - Provider: Meghan Nichols, IVETTE)1333 (Given - Provider: Meghan Nichols RN)1341 (Given - Provider: Meghan Nichols, IVETTE)1342 (Given - Provider: Meghan Nichols, IVETTE)1414 (Given - Provider: Meghan Nichols, IVETTE) heparin (porcine) injection (CANCELED) PRN, Starting on Fri07/09/17 at 1337, Until Fri07/09/17 at 1418, Intra-procedure(Cath) 1337 (Given - Provider: Mikhail Ibarra MD) heparin 2 units/ml in 0.9% NaCl 500 mL (CANCELED) CONTINUOUS PRN, Starting on Fri07/09/17 at 1310, Until Fri07/09/17 at 1418, Intra-procedure(Cath) 1310 (New Bag - Provider: Genaro Ibarra MD)1350 (New Bag - Provider: Genaro Ibarra MD)1613 (IV Stopped by Other - Provider: Brittany Saucedo RN) lidocaine 20 mg/mL (2 %) injection (CANCELED) PRN, Starting on Fri07/09/17 at 1321, Until Fri07/09/17 at 1418, Intra-procedure(Cath) 1321 (Given - Provider: Mikhail Ibarra MD)1322 (Given - Provider: Genaro Ibarra MD) metoclopramide HCl (REGLAN) injection 10 mg 10 mg, Intravenous, EVERY 6 HOURS PRN, Starting on Fri07/09/17 at 1510, Until Stephanie 07/10/17 at 2053, Nausea, Post-op 1704 (Given - Provider: Jesus Saucedo RN) midazolam (VERSED) injection (CANCELED) PRN, Starting on Fri07/09/17 at 1310, Until Fri07/09/17 at 1418, Intra-procedure(Cath) 1310 (Given - Provider: Meghan Nichols RN)1319 (Given - Provider: Meghan Nichols RN)1333 (Given - Provider: Meghan Nichols RN)1342 (Given - Provider: Meghan Nichols RN)1402 (Given - Provider: Meghan Nichols RN) oxyCODONE-acetaminophen (PERCOCET) 5-325 mg per tablet 1-2 Tab 1-2 Tablet, Oral, EVERY 4 HOURS PRN, Starting on Fri07/09/17 at 1510, Until Stephanie 07/10/17 at 2053, Pain, Begin with lowest dose unless otherwise directed. Reassess pain in one hour. If pain unrelieved, remainder of dose may be given to patient. Maximum adult dose of acetaminophen is 4000 mg from all sources in 24 hours. , Post-op 1634 (Given - Provider: Jesus Saucedo, IVETTE)2045 (Given - Provider: Brittany Saucedo RN) sodium chloride 0.9% IV line flush 20-50 mL 20-50 mL, Intravenous, at 150-600 mL/hr, PRN, Starting on 07/09/17 at 1510, Until Stephanie 07/10/17 at 2052, Line Care, Flush with a minimum of 20 mL after IVPB to insure complete administration of the dose. May use the saline infusion to back flush IVPB tubing as needed. sodium chloride 0.9% syringe Intravenous, PRN, Starting on 07/09/17 at 1510, Until Stephanie 07/10/17 at 2052, Line Care, Flush with 5-10 mL saline pre/post IVP, and 5 mL prior to IVPB or blood product administration. documented in this encounter Orders Medications Ordered That Jair ht Not Have Been Administered Count Last Ordered Date First Ordered Date acetaminophen (TYLENOL) tablet 650 mg 1 aspirin chewable tablet 325 mg 1 07/09/2017 ceFAZolin (ANCEF) injection 1 g 1 8 sodium chloride 0.9% IV line flush 20-50 mL 1 07/09/2017 sodium chloride 0.9% syringe 2 07/09/2017 Nursing Count Last Ordered Date First Orde red Date ADMISSION 1 07/10/2017 Transfer Count Last Ordered Date First Orde red Date BED REQUEST 1 07/09/2017 documented in this encounter Care Teams Key Account Executive Relationship Specialty Start Date End Date Thea Rubio MD PCP - General Family Medicine 09/13/14 07/16/22 documented as of this encounter
--- OUTSIDE RECORDS SUMMARY | 2024-03-14 18:21 | XMS_ITS | Encounter Summary ---
Author Organization [place] [address] Care Team Providers Care District Resource Officer Name Role Phone Thea Rubio MD Primary Care Provider +1- [phone] Reason for Visit * Reason Onset Date Comments Precertification 07/04/2017 DOCUMENTATION F OR PRECERTIFICATION//REFERRAL DEPT. Encounter Details Date Type Department Care Team (Late st Contact Info) Description 07/04/2017 Telephone [facility] [address] [place] [id number] Payton Levy Clerical Staff Precertification (DOCUMENTATION FOR PRECERTIFICATION//REFERRAL DEPT. ) Social History Tobacco Use Types Packs/Day [...] encounter Miscellaneous Notes * Telephone Encounter - Payton Levy Clerical Staff - 07/04/2017 10:12 AM EDT Images from the original note were not included. Gardenia Childress 06/20/2017 3:20 PM ?? Office Visit Description: Female : 1980 Provider: Genaro Ibarra MD Department: Sep [facility] #: [id number] H&P Gardenia Childress (MR# [id number]) H&P Info Author Note Status Last Update User Last Update Date/Time Genaro Ibarra MD Signed Genaro Ibarra MD 06/20/2017 ??3:55 PM H&P Expand All Collapse All []Hide copied text []Hover for attribution information CHIEF COMPLAINT Chief Complaint Patient presents with ??? Atrial Septal Defect ? F/u WAYNE with Dr Sidhu ? SUBJECTIVE Gardenia Childress is a 37 y.o. female who presents here for routine scheduled follow up for Secundum atrial septal defect ?? HPI ?? We are seeing her today to discuss a percutaneous closure of her recently diagnosed secundum atrialseptal defect. She is asymptomatic but has mild right heart dilatation noted on transthoracic and transesophageal echocardiography. We feel that the indication to proceed with percutaneous closures prevention of atrial arrhythmias. ?? MEDICATIONS ?? Current Outpatient Prescriptions: ??? dicyclomine (BENTYL) 10 [...] MIGRAINE FLARES., Disp: 270 Tab, Rfl: 1 ?? ALLERGIES Allergies Allergies Allergen Reactions ??? Latex Rash ??? Morphine Nausea And Vomiting ? The past medical history, pertinent social history, and family history were reviewed and verified. ?? ROS: No unintentional weight loss, bleeding, progressive neurologic complaints, fevers or chills. Other systems were reviewed and were negative ?? PHYSICAL EXAM Vital Signs: BP 96/64 (BP Location: Left arm, Patient Position: Sitting) Pulse 72 Ht 5' 5 (1.651 m) Wt 144 lb (65.3 kg) BMI 23.96 kg/m?? ,Body mass index is 23.96 kg/m??. Constitutional: No acute distress, non-toxic appearance HEENT: Normal Neck- supple. No bruit, JVP normal Respiratory: clear Cardiovascular: Normal S1 and S2. No audible murmurs or gallops. Regular rhythm ?? Abdominal: Soft, nondistended, normal bowel sounds, nontender, no organomegaly, no mass, Extremities: No edema Neurologic: Alert & oriented x 3, Moves all extremities well. Grossly nonfocal exam. ?? Pertinent recent laboratory findings were reviewed ?? EKG No results found for this visit on 06/20/17. ? ASSESSMENT: 1. Atrial septal defect ? PLAN ? Percutaneous ASD closure was discussed in detail The risks, benefits, rationale, and alternatives to the planned procedure were discussed, and She agrees to proceed as planned. Questions were answered to the patient's satisfaction. Additional plans will be forthcoming ?? No Follow-up on file. ? This chart was completed using voice recognition technology and may contain unintended errors ?3:55 PM Chart Review Routing History No Routing History on File EC ECHOCARDIOGRAM TRANSESOPHAGEAL W DOPPLER AND COLOR FLOW MAPPING Status: Final result Result Notes Notes Recorded by Tiny Ortega APRN on 05/21/2017 at 4:20 PM EST Done in hospital ?? Study Result IMPRESSION CONCLUSIONS Secundum type ASD wtih significant left to right shunting noted on color flow. Mild right atrial dilation Nomral left ventricular size and funciton Normal cardaic valvular structures Migue Sidhu MD Linked Documents Click Here to Review Full Clinical Report Read By Reading Date ?? MIGUE SIDHU 05/20/2017 ? Signed By Signed Date/Time Phone Pager Reading MIGUE SIDHU May 20, 2017 ??5:54 PM [phone] MIGUE SIDHU Order Providers Authorizing Encounter Billing Migue Sidhu EDG STRESS ECHO RM 2 Migue Sidhu ?? Curber Info - ?? Associated Diagnoses Atrial septal defect and mitral stenosis Celiac artery stenosis (HCC) Previous Versions of Result Result History Show result comparison Results History EC ECHOCARDIOGRAM TRANSESOPHAGEAL W DOPPLER AND COLOR FLOW MAPPING (Order [id number]) 05/20/2017 ??5:54 PM - John, Rad Results In Component Results Component Value Flag Ref Range Units Status Ejection Fraction 55-60 % Impression ?CONCLUSIONS ?Secundum type ASD wtih significant left to right shunting noted on color flow. ?Mild right atrial dilation ?Nomral left ventricular size and funciton ?Normal cardaic valvular structures ? Migue Sidhu MD Linked Documents Click Here to Review Full Clinical Report ?? 05/20/2017 ??1:47 PM - Juan Hernandez, RDJEREMIE Result not yet available Exam Ended Imaging Order Information Order Information External Result Report External Result Report Reviewed by Tiny Márquez, SPACE SCHEDULER on 05/21/2017 16:20 Order Report Order Details documented in this encounter Plan of Treatment Upcoming Encounters Date Type Department Care Team (Late st Contact Info) Description 04/24/2024 10:45 AM EST Clinical Support [facility] [place] [address] [place] [address] documented as of this encounter Goals Goal Patient Goal Type Associated Problems Recent Progress Patient-Stated? Author Maintain a healthy diet, exercise regularly and maintain an ideal body weight General No Thea Rubio MD Stay Tobacco Free Lifestyle No Thea Rubio MD documented as of this encounter Visit Diagnoses Not on filedocumented in this encounter Care Teams District Resource Officer Relationship Specialty Start Date End Date Thea Rubio MD PCP - General Family Medicine 09/13/14 07/16/22 documented as of this encounter
--- OUTSIDE RECORDS SUMMARY | 2024-03-14 18:21 | XMS_ITS | Encounter Summary ---
Author Organization [place] [address] Care Team Providers Care Contract Negotiation Specialist Name Role Phone Thea Rubio MD Primary Care Provider [phone]- [phone] Reason for Visit * Reason Onset Date Comments Other 06/24/2017 Encounter Details Date Type Department Care Team (Late st Contact Info) Description 06/24/2017 Telephone SEP [facility] [place] [address] [place] [address] Genaro Ibarra MD [address] [place] [address] Other Social History Tobacco Use Types Packs/Day [...] encounter Miscellaneous Notes * Telephone Encounter - Madeline Porter RMA - 06/26/2017 10:52 AM EST Swp ASD closure scheduled for 07/09/17 @ 1pm [place]als instructions given to pt * Telephone Encounter - Madeline Porter RMA - 06/24/2017 12:52 PM EST Swp Still waiting to hear from Rep to see if the days requested will work for his schedule * Telephone Encounter - Ena Stephen, Clerical Staff - 06/24/2017 11:58 AM EST Pt is supposed to be set up for an ASD closure.She has not heard from anyone.Please call pt. documented in this encounter Plan of Treatment Upcoming Encounters Date Type Department Care Team (Late st Contact Info) Description 04/24/2024 10:45 AM EST Clinical Support [facility] [address] [place] [address] documented as of this encounter Goals Goal Patient Goal Type Associated Problems Recent Progress Patient-Stated? Author Maintain a healthy diet, exercise regularly and maintain an ideal body weight General No Thea Rubio MD Stay Tobacco Free Lifestyle No Thea Rubio MD documented as of this encounter Results * BASIC METABOLIC PANEL (07/04/2017 4:26 PM EDT) Sodium 140 136 - 145 mmol/L 07/04/2017 8:15 PM EDT [facility] Potassium 4.0 3.5 - 5.0 mmol/L 07/04/2017 8:15 PM EDT [facility] Chloride 105 98 - 107 mmol/L 07/04/2017 8:15 PM EDT [facility] Total CO2 23 22 - 29 mmol/L 07/04/2017 8:15 PM EDT [facility] Anion Gap 12 7 - 16 mmol/L 07/04/2017 8:15 PM EDT [facility] Calcium 8.9 8.6 - 10.2 mg/dL 07/04/2017 8:15 PM EDT [facility] Glucose Lvl 85 74 - 100 mg/dL 07/04/2017 8:15 PM EDT [facility] BUN 6 6 - 20 mg/dL 07/04/2017 8:15 PM [facility] Creatinine 0.79 0.51 - 1.30 mg/dL 07/04/2017 8:15 PM [facility] GFR Afr Am 112 mL/min/1.7 3 m2 07/04/2017 8:15 PM [facility] GFR Non Afr Am 97 mL/min/1.7 3 m2 07/04/2017 8:15 PM [facility] Comment: GFR Afr Am and GFR [...] VENOUS BLOOD / Unknown Venipuncture / Unknown 07/04/2017 4:26 PM EDT 07/04/2017 4:26 PM EDT us Genaro Ibarra MD CHEMISTRY ORDERABLES Final Res ult [place] [id number] documented in this encounter Visit Diagnoses Diagnosis Preop testing- Primary Preoperative examination, unspecified ASD (atrial septal defect) Ostium secundum type atrial septal defect documented in this encounter Orders Lab Orders Without Results Count Last Ordered D ate First Ordered Date CBC 1 06/26/2017 documented in this encounter Care Teams Contract Negotiation Specialist Relationship Specialty Start Date End Date Thea Rubio MD PCP - General Family Medicine 09/13/14 07/16/22 documented as of this encounter
--- OUTSIDE RECORDS SUMMARY | 2024-03-14 18:21 | XMS_ITS | Encounter Summary ---
Author Organization [place] [address] Care Team Providers Care Wing Mailer Machine Operator Name Role Phone Thea Rubio MD Primary Care Provider +1- [phone] Reason for Referral * Echo (Routine) - Closed Specialty Diagnoses / Procedures Referred By Contac t Referred To Contact Radiology Diagnoses Atrial septal defect and mitral stenosis Celiac artery stenosis (HCC) Procedures EC ECHOCARDIOGRAM TRANSESOPHAGEAL W DOPPLER AND COLOR FLOW MAPPING ND ECHO TRANSESOPHAG R-T 2D W/PRB IMG ACQUISJ I&R ND DOPPLER ECHO HEART,COMPLETE ND DOPPLER COLOR FLOW VELOCITY MAP Migue Anne MD Phone: tel: fax: Referral ID Status Reason Start Date Expiration Date Visits Re quested Visits Authorized [id number] Closed 05/05/2017 05/05/2019 1 1 Reason for Visit * Echo (Routine) - Closed Specialty Diagnoses / Procedures Referred By Contac t Referred To Contact Radiology Diagnoses Atrial septal defect and mitral stenosis Celiac artery stenosis (HCC) Procedures EC ECHOCARDIOGRAM TRANSESOPHAGEAL W DOPPLER AND COLOR FLOW MAPPING ND ECHO TRANSESOPHAG R-T 2D W/PRB IMG ACQUISJ I&R ND DOPPLER ECHO HEART,COMPLETE ND DOPPLER COLOR FLOW VELOCITY MAP Migue Anne MD Phone: tel: fax: Referral ID Status Reason Start Date Expiration Date Visits Re quested Visits Authorized [id number] Closed 05/05/2017 05/05/2019 1 1 Encounter Details Date Type Department Care Team (Latest Contact Info) Description 05/20/2017 12:00 PM EST - 05/20/2017 11:59 PM EST Hospital Encounter [facility] Stress Test [facility] [address] [place] [address] Migue Anne MD [address] [facility] [address] [place] [address] Atrial septal defect and mitral stenosis; Celiac artery stenosis (HCC) Discharge Disposition: Home or Self Care Social [...] Sign Reading Time Taken Comments Blood Pressure 107/71 05/20/2017 3:28 PM EST Pulse 88 05/20/2017 3:28 PM EST Temperature 36.9 ??C (98.5 ??F) 05/20/2017 12:[address] Respiratory Rate 16 05/20/2017 3:28 PM EST Oxygen Saturation 99% 05/20/2017 3:28 PM EST Inhaled Oxygen Concentration - - Weight 65 kg (143 lb 3.2 oz) 05/20/2017 12:25 PM EST Height 165.1 cm (5' 5 ) 05/20/2017 12:25 PM EST Body Mass Index 23.83 05/20/2017 12:25 PM EST documented in this encounter Discharge Instructions * Discharge Instructions* Juliane Plascencia, IVETTE - 05/20/2017 5:21 PM EST Trans-Esophageal Echo (WAYNE) Discharge Instructions 1. A responsible adult, 18 years or older must be in attendance until the next morning. 2. Rest quietly today. 3. You may resume usual diet after 3 hours. Avoid hot liquids for [address] any machinery until the next morning or as instructed. 5. Do not make any legal or important decisions for the next 24 hours. 6. Do not drink alcoholic beverages or take sleeping pills for 24 hours unless otherwise directed. 7. Call the Front End Web Designer office for a follow up visit. 8. Call physician if the following symptoms occurs: Chest pain, difficulty swallowing, shortness ofbreath, severe sore throat, or temperature greater than 101.5. documented in this encounter Discharge Disposition Disposition Code Departure Means Destination Home or Self Care documented in this encounter Progress Notes * Juliane Plascencia RN - 05/20/2017 5:24 PM EST Pt without complaints. Taking po without problems. Discharge instructions given to pt. Verbalized understanding. documented in this encounter H&P Notes * Migue Anne MD - 05/20/2017 2:36 PM EST PHYSICIAN IMMEDIATE PRE-PROCEDURE UPDATE H&P and SEDATION ASSESSMENT Risks, benefits, potential complications and alternatives have been discussed with patient and/or patient's legal authorized insurance service representative. HISTORY AND PHYSICAL H&P is less [...] gastric emptying. Date of last liquid consumption: 05/20/17 Time of last liquid consumption: 0700 Date of last solid food consumption: 05/20/17 Time of last solid food consumption: 0700 Comment: Patient has no previous adverse experience to anesthesia. Comment: Vital Signs: Temp: 98.5 ??F (36.9 ??C) Pulse: 74 Resp: 20 BP: 107/78 SpO2: 100 % Comment: Patient's pain has been assessed and based on patient report consideration has been given as to howit might alter the patient's sedation plan. Comment: Patient's airway has been assessed and consideration has been given as to how it might alter the patient's response to sedation. Mallampati Score: II (soft palate, uvula, fauces visible) Height: 5' 5 (165.1 cm) Weight: 143 lb 3.2 oz (65 kg) BMI (Calculated): 23.9 Comment: Allergies Allergen Reactions ??? Aspirin Not sure of rxn. ??? Latex Rash ??? Morphine Nausea And Vomiting Source Note - Migue nAne MD - 05/05/2017 8:30 AM EST Cardiology Follow Up Visit Name: Gardenia Childress : 1980 Referring Physician Thea Rubio MD Reason for Follow-up Chest Brennan, ASD Chief Complaint Patient presents with ??? Hospital Follow Up U, [place] 04/23/17 HPI 37 y.o. female is seen for hospital follow up. States she is not having chest pain but still feels sob with exertion. She is trying to resume her exercise regimen but becomes very sob when exerting her self heavily. This is much more pronounced than 6 months ago. She has multiple questions about the ASD which was noted on TTE. She has not had fever, chills, edema or palpitations. ROS Denies: Change in vision, headache, fever, chills, nausea, vomiting, anorexia, diarrhea, change in bowel or bladder habits, weight loss or gain. No palpitations, lightheadedness, dizziness, syncope, or near syncope. No extreme fatigue, daytime solomence or change in energy level. No significant depression or anhedonia. Current Outpatient Prescriptions: ??? dicyclomine (BENTYL) 10 [...] MIGRAINE FLARES., Disp: 270 Tab, Rfl: 1 Allergies Allergen Reactions ??? Aspirin Not sure of rxn. ??? Latex Rash ??? Morphine Nausea And Vomiting Objective Vitals: 05/05/17 0825 BP: 110/68 Pulse: 72 Exam: GENERAL APPEARANCE: In no acute distress [...] No results found for this visit on 05/05/17. Labs Lab Results Component Value Date CHOLESTEROL 151 04/22/2017 CHOLESTEROL 174 10/07/2015 HDL 63 04/22/2017 HDL 50 10/07/2015 LDLCALC 74 04/22/2017 LDLCALC 110 (H) 10/07/2015 TRIG 72 04/22/2017 TRIG 71 10/07/2015 No results found for: INR, PROTIME Lab Results Component Value Date WBC 9.2 04/22/2017 WBC 7.9 10/07/2015 WBC 8.0 03/12/2014 HGB 14.5 04/22/2017 HGB 12.8 10/07/2015 HGB 13.6 03/12/2014 HCT 44.1 04/22/2017 HCT 39.5 10/07/2015 HCT 40.9 03/12/2014 MCV 86.6 04/22/2017 MCV 85.1 10/07/2015 MCV 85.6 03/12/2014 PLT 298 04/22/2017 PLT 298 10/07/2015 PLT 307 03/12/2014 No results found for: HGBA1C Lab Results Component Value Date NA 141 04/22/2017 NA 141 10/07/2015 NA 139 03/12/2014 K 4.1 04/22/2017 K 4.4 10/07/2015 K 4.1 03/12/2014 BUN 11 04/22/2017 BUN 9 10/07/2015 BUN 8 03/12/2014 CALCIUM 9.1 04/22/2017 CALCIUM 9.0 10/07/2015 CALCIUM 9.2 03/12/2014 CL 108 (H) 04/22/2017 CL 109 (H) 10/07/2015 CL 103 03/12/2014 CO2 14 (L) 04/22/2017 CO2 21 (L) 10/07/2015 CO2 24 03/12/2014 CREATININE 0.77 04/22/2017 CREATININE 0.86 10/07/2015 CREATININE 0.73 03/12/2014 GLU 79 04/22/2017 GLU 90 10/07/2015 GLU 83 03/12/2014 Lab Results Component Value Date ALT 14 04/22/2017 ALT 16 10/07/2015 ALT 9 03/12/2014 AST 22 04/22/2017 AST 17 10/07/2015 AST 18 03/12/2014 ALKPHOS 64 04/22/2017 ALKPHOS 69 10/07/2015 ALKPHOS 69 03/12/2014 Lab Results Component Value Date TSHREFLEX 2.100 04/23/2016 Stress Echo 05/08: 9.8 METs negative ekg and echo. EF 60%. Mild RVD. ASD with left to right interatrial shunting. Mild TR. RVSP 19. Cardiac CT - normal cors but proximal vessels not well visualized. No congenital defects noted ? Assessment: ASD - noted incidentally on echo - No associated cardiac abnormalities on Cardiac CT Atypical Chest Pain ?? - quiet - she feels GAMING persistent Chronic Migraine ORTEGA's ?? 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 Plan: Will proceed with WAYNE to further assess ASD prior to considering closure Discussed the risks and benefits in depth with Gardenia Childress, including, but not limited to, risks of bleeding, infection, or esophageal trauma RTC 1-2 months. documented in this encounter Plan of Treatment Upcoming Encounters Date Type Department Care Team (Late st Contact Info) Description 04/24/2024 10:45 AM EST Clinical Support [facility] [address] [place] [address] documented as of this encounter Goals Goal Patient Goal Type Associated Problems Recent Progress Patient-Stated? Author Maintain a healthy diet, exercise regularly and maintain an ideal body weight General No Thea Rubio MD Stay Tobacco Free Lifestyle No Thea Rubio MD documented as of this encounter Procedures Procedure Name Priority Date/Time Associated Diagnosis Comments EC ECHOCARDIOGRAM TRANSESOPHAGEAL W DOPPLER AND COLOR FLOW MAPPING Routine 05/20/2017 3:39 PM EST Atrial septal defect and mitral stenosis Celiac artery stenosis (HCC) documented in this encounter Results * EC ECHOCARDIOGRAM TRANSESOPHAGEAL W DOPPLER AND COLOR FLOW MAPPING (05/20/2017 3:39 PM EST) Ejection Fraction 55-60 % PYRAMIS Anatomical Region Laterality Modality Cardiac Stress T esting 05/20/2017 1:58 PM EST Impressions 05/20/2017 5:54 PM EST ??CONCLUSIONS ??Secundum type ASD wtih significant left to right shunting noted on color flow. ?Mild right atrial dilation ?Nomral left ventricular size and funciton ??Normal cardaic valvular structures ?? Migue Anne MD Narrative Procedure Note Migue Anne MD - 05/20/2017 IMPRESSION CONCLUSIONS Secundum type ASD wtih significant left to right shunting noted on colorflow. Mild right atrial dilation Nomral left ventricular size and funciton Normal cardaic valvular structures Migue Anne MD us Migue Anne MD IMG ECHO ORDERABLES Fin al Result documented in this encounter Visit Diagnoses Diagnosis Atrial septal defect and mitral stenosis Ostium secundum type atrial septal defect Celiac artery stenosis (HCC) Celiac artery compression syndrome documented in this encounter Historical Medications * This list may reflect changes made after this encounter. amoxicillin (AMOXIL) 875 mg Oral Tablet Take 875 mg by mouth 2 times daily. Pre dental procedure 8 added in this encounter Orders Medications Ordered That Jair ht Not Have Been Administered Count Last Ordered Date First Ordered Date 0.9 % NaCl infusion 1 05/19/2017 mazvyvxy-zfphsaymih-iddutyyu ne (CETACAINE; EXACTACAINE) spray 1 [place] 1 05/19/2017 fentaNYL (SUBLIMAZE) injection 25 mcg 1 flumazenil (ROMAZICON) injection 0.2 mg 1 0 05/19/2017 midazolam (VERSED) injection 1-2 mg 1 05/19 naloxone (NARCAN) injection 0.2 mg 1 2017 documented in this encounter Care Teams Wing Mailer Machine Operator Relationship Specialty Start Date End Date Thea Rubio MD PCP - General Family Medicine 09/13/14 07/16/22 documented as of this encounter
--- OUTSIDE RECORDS SUMMARY | 2024-03-14 18:21 | XMS_ITS | Encounter Summary ---
Author Organization [place] [address] Care Team Providers Care Union Laborer Name Role Phone Thea Rubio MD Primary Care Provider +1- [phone] Reason for Visit * Reason Onset Date Comments ED Follow-Up Call 10/15/2017 Encounter Details Date Type Department Care Team (Late st Contact Info) Description 10/15/2017 Patient Outreach [facility] [address] [place] [address] Thea Rubio MD [address] [place], [place] [id number] ED Follow-Up Call Social History Tobacco Use [...] Progress Notes * Sparkle Ghotra MA - 10/15/2017 1:13 PM EDT ED Follow Up Regarding the most recent emergency room visit: Appropriate for follow up?: Yes Contact made?: Yes Medical reason for visit: vomiting Are you feeling better?: Yes Were you able to, or did you try to, reach us prior to deciding to go to the ED?: Yes Reason you chose to go to [...] [facility] [address] [place] [address] documented as of this encounter [...] documented as of this encounter Care Teams Union Laborer Relationship Specialty Start Date End Date Thea Rubio MD PCP - General Family Medicine 09/13/14 07/16/22 documented as of this encounter
--- OUTSIDE RECORDS SUMMARY | 2024-03-14 18:21 | XMS_ITS | Encounter Summary ---
Author Organization [place] [address] Care Team Providers Care Sign Designer Name Role Phone Thea Rubio MD Primary Care Provider [phone]- [phone] Encounter Details Date Type Department Care Team (Latest Contact Info) Description 05/14/2017 12:03 PM EST - 05/14/2017 11:59 PM EST Hospital Encounter [facility] [address] [id number] Click, [facility] adult exam Discharge Disposition: Home or Self Care Social [...] EST Clinical Support [facility] [address] [place] [address] documented as of this encounter Goals Goal Patient Goal Type Associated Problems Recent Progress Patient-Stated? Author Maintain a healthy diet, exercise regularly and maintain an ideal body weight General No Thea Rubio MD Stay Tobacco Free Lifestyle No Tcheng, Thea Pimentel MD documented as of this encounter Procedures Procedure Name Priority Date/Time Associated Diagnosis Comments TSH REFLEX Routine 05/14/2017 12:04 PM EST Well adult exam LIPID SCREEN Routine 05/14/2017 12:04 PM EST Well adult exam COMPREHENSIVE METABOLIC PANEL Routine 05/14/2017 12:04 PM EST Well adult exam documented in this encounter Results * TSH REFLEX (05/14/2017 12:04 PM EST) TSH Reflex 2.240 0.270 - 4.200 mcIU/mL 05/14/2017 6:13 PM EST [facility] Blood Venipuncture / Unknown 05/14/2017 12:04 PM EST 05/14/2017 12:04 PM EST us Thea Rubio MD CHEMISTRY ORDERABLES Final Result Performing Organization Address City/State/[facility] Co de Phone Number [facility] [address] [place] [address] * LIPID SCREEN (05/14/2017 12:04 PM EST) Cholesterol 154 <=200 mg/dL 05/14/2017 6:13 PM EST [facility] Comment: < 200 ?Desirable 200 - 239 ? Borderline High >= 240 ?High Triglyceride 67 <=150 mg/dL 05/14/2017 6:13 PM EST [facility] Comment: < 150 ? Normal 150 - 199 ?Borderline High 200 - 499 ?High ??>= 500 ? Very High HDL 68 >=40 mg/dL 05/14/2017 6:13 PM EST [facility] Comment: ??> 60 ?Optimal 40 - 60 ?Acceptable ?? < 40 ?Low LDL Calculated 73 <=100 mg/dL 05/14/2017 6:13 PM EST [facility] Comment: < 100 ?Optimal 100 - 129 ? Near or above optimal 130 - 159 ? Borderline High 160 - 189 ? High >= 190 ?Very High Non-HDL-C Calculated 86 <=129 mg/dL 05/14/2017 6:13 PM EST [facility] Comment: <130 ?Desirable 130-159 Above Desirable 160-189 Borderline High 190-219 High >= 220 ??Very High Blood Venipuncture / Unknown 05/14/2017 12:04 PM EST 05/14/2017 12:04 PM EST us Thea Rubio MD CHEMISTRY ORDERABLES Final Result [facility] [address] [place] [address] * (ABNORMAL) COMPREHENSIVE METABOLIC PANEL (05/14/2017 12:04 PM EST) Sodium 141 136 - 145 mmol/L 05/14/2017 6:13 PM [facility] Potassium 3.9 3.5 - 5.0 mmol/L 05/14/2017 6:13 PM [facility] Chloride 108(H) 98 - 107 mmol/L 05/14/2017 6:13 PM [facility] Total CO2 21(L) 22 - 29 mmol/L 05/14/2017 6:13 PM [facility] Anion Gap 12 7 - 16 mmol/L 05/14/2017 6:13 PM [facility] Calcium 8.9 8.6 - 10.2 mg/dL 05/14/2017 6:13 PM [facility] Glucose Lvl 75 74 - 100 mg/dL 05/14/2017 6:13 PM [facility] BUN 11 6 - 20 mg/dL 05/14/2017 6:13 PM [facility] Creatinine 0.80 0.51 - 1.30 mg/dL 05/14/2017 6:13 PM [facility] Albumin 4.2 3.5 - 5.2 gm/dL 05/14/2017 6:13 PM [facility] Total Protein 7.0 6.4 - 8.3 gm/dL 05/14/2017 6:13 PM [facility] Bili Total 0.4 0.1 - 1.3 mg/dL 05/14/2017 6:13 PM [facility] ALT 11 <=41 IU/L 05/14/2017 6:13 PM [facility] AST 15 <=40 IU/L 05/14/2017 6:13 PM [facility] Alk Phos 67 35 - 104 IU/L 05/14/2017 6:13 PM [facility] GFR Afr Am 110 mL/min/1.7 3 m2 05/14/2017 6:13 PM [facility] GFR Non Afr Am 96 mL/min/1.7 3 m2 05/14/2017 6:13 PM [facility] Comment: GFR Afr Am and GFR Non Afr Am calculated using CKD-EPI equation. ?? GFR Category ?GFR(mL/min/1.73 m??) ? Kidney Function G1 ?>=90 ?Normal or high G2 ?60-89 ? Mildly decreased G3a ? 45-59 ? Mildly to moderately decreased G3b ? 30-44 ? Moderately to severely decreased G4 ?15-29 ? Severely decreased G5 ?<15 ? Kidney Failure Blood Venipuncture / Unknown 05/14/2017 12:04 PM EST 05/14/2017 12:04 PM EST us Thea Rubio MD CHEMISTRY ORDERABLES Final Result [facility] [address] [place] [address] documented in this encounter Visit Diagnoses Diagnosis Well adult exam Routine general medical examination at a health care facility documented in this encounter Care Teams Sign Designer Relationship Specialty Start Date End Date Thea Rubio MD PCP - General Family Medicine 09/13/14 07/16/22 documented as of this encounter
--- OUTSIDE RECORDS SUMMARY | 2024-03-14 18:21 | XMS_ITS | Encounter Summary ---
Author Organization [employer] [place] [address] Care Team Providers Care Director Instrumentation Name Role Phone Thea Rubio MD Primary Care Provider +1- [phone] Reason for Visit * Reason Onset Date Comments Medication Refill 08/18/2017 Encounter Details Date Type Department Care Team (Late st Contact Info) Description 08/18/2017 Telephone [facility] [address] [place] [address] Thea Rubio MD [address] [place], [place] [id number] Medication Refill Social History Tobacco Use Types [...] Refills Last Filled Start Date End Date norethindrone-ethin yl estradiol (ORTHO-NOVUM) 0.5/0.75/1 mg- 35 mcg Oral Tablet Take 1 Tab by mouth daily. 28 Tab 3 08/18/2017 12/05/2017 documented in this encounter Miscellaneous Notes * Telephone Encounter - Thea Rubio MD - 08/18/2017 12:25 PM EDT Has migraines without aura. Not sex active yet but is anticipating it. No troubles when on BCP in past. Sent in BCP but very strongly warned patient not to get while on Topamax (category D ) and Imitrex. If any chance of in the future, would advise stopping both of those. Also, Topamax will decrease the effectiveness of the control pills so she should use condoms also along w ith the pill if she is not yet off Topamax Pt offered sterilization as an option, will consider it. * Telephone Encounter - Antonietta Richards - 08/18/2017 8:20 AM EDT The patient wants to talk about being put back on control. documented in this encounter Plan of Treatment Upcoming Encounters Date Type Department Care Team (Late st Contact Info) Description 04/24/2024 10:45 AM EST Clinical Support [facility] [address] [place] [address] documented as of this encounter Goals Goal Patient Goal Type Associated Problems Recent Progress Patient-Stated? Author Maintain a healthy diet, exercise regularly and maintain an ideal body weight General No Thea Rubio MD Stay Tobacco Free Lifestyle No Thea Rubio MD documented as of this encounter Visit Diagnoses Not on filedocumented in this encounter Care Teams Director Instrumentation Relationship Specialty Start Date End Date Thea Rubio MD PCP - General Family Medicine 09/13/14 07/16/22 documented as of this encounter
--- OUTSIDE RECORDS SUMMARY | 2024-03-14 18:21 | XMS_ITS | Encounter Summary ---
Author Organization [place] [address] Care Team Providers Care [employer] Rep Name Role Phone Thea Rubio MD Primary Care Provider +1- [phone] Encounter Details Date Type Department Care Team (Latest Contact Info) Description 10/06/2017 9:58 AM EDT - 10/06/2017 11:59 PM EDT Hospital Encounter [facility] [address] [phone] [facility], [facility] High risk sexual behavior Discharge Disposition: Home or Self Care Social [...] Clinical Support [facility] [address] [place] [address] documented as of this encounter Goals Goal Patient Goal Type Associated Problems Recent Progress Patient-Stated? Author Maintain a healthy diet, exercise regularly and maintain an ideal body weight General No Thea Rubio MD Stay Tobacco Free Lifestyle No JoanneThea MD documented as of this encounter Procedures Procedure Name Priority Date/Time Associated Diagnosis Comments HIV AG/AB Routine 10/06/2017 9:58 AM EDT High risk sexual behavior SYPHILIS SCREEN WITH REFLEX RPR QUANT Routine 10/06/2017 9:58 AM EDT High risk sexual behavior HCV ANTIBODY SCREEN W/ REFLEX Routine 10/06/2017 9:58 AM EDT High risk sexual behavior HEPATITIS B SURFACE ANTIGEN Routine 10/06/2017 9:58 AM EDT High risk sexual behavior documented in this encounter Results * SYPHILIS SCREEN WITH REFLEX RPR QUANT (10/06/2017 9:58 AM EDT) Trep Ab Index 0.06 <=0.99 Index Value 10/06/2017 10:02 PM EDT [facility] Comment: < 1.00 - Negative ?? >=1.00 - Positive NOTE: ??All positive results will be reflexed to Quantitative Non-Treponemal(RPR)test. ?? Blood Venipuncture / Unknown 10/06/2017 9:58 AM EDT 10/06/2017 9:58 AM EDT us Thea Rubio MD CHEMISTRY ORDERABLES Final Result [facility] [address] [place] [address] , [place] [address] * HIV AG/AB (10/06/2017 9:58 AM EDT) HIV Ag/AB Non-Reacti ve Non-Reactive, See Footnote 10/06/2017 10:01 PM EDT [facility] Blood Venipuncture / Unknown 10/06/2017 9:58 AM EDT 10/06/2017 9:58 AM EDT us Thea Rubio MD IMMUNOLOGY ORDERABLES Antonia l Result Performing Organization Address [facility] Co de Phone Number [facility] [address] [facility] , [place] [address] * HEPATITIS C ANTIBODY - SCREENING (10/06/2017 9:58 AM EDT) Hep C Ab Non-Reactiv e Non-Reacti ve 10/06/2017 10:01 PM EDT [facility] Blood Venipuncture / Unknown 10/06/2017 9:58 AM EDT 10/06/2017 9:58 AM EDT us Thea Rubio MD HEMATOLOGY ORDERABLES Antonia l Result Performing Organization Address [facility] Co de Phone Number [facility] [address] [facility] , [place] [address] * HEPATITIS B SURFACE ANTIGEN (10/06/2017 9:58 AM EDT) Hep Bs Ag Non-Reactiv e Non-Reacti ve 10/06/2017 10:01 PM EDT [facility] Blood Venipuncture / Unknown 10/06/2017 9:58 AM EDT 10/06/2017 9:58 AM EDT us Thea Rubio MD CHEMISTRY ORDERABLES Final Result Performing Organization Address [facility] Co de Phone Number [facility] [address] [facility] , [place] [address] documented in this encounter Visit Diagnoses Diagnosis High risk sexual behavior Problems related to high-risk sexual behavior documented in this encounter Additional Health Concerns Assessment Noted Time PHQ-9 Depression Total Score: 2 10/07/19 18 8:00 AM EDT PHQ-2 Depression Total Score: 2 10/07/19 18 8:00 AM EDT documented as of this encounter Care Teams [employer] Rep Relationship Specialty Start Date End Date Thea Rubio MD PCP - General Family Medicine 09/13/14 07/16/22 documented as of this encounter
--- OUTSIDE RECORDS SUMMARY | 2024-03-14 18:21 | XMS_ITS | Encounter Summary ---
Author Organization [place] [address] Care Team Providers Care Counter Professional Name Role Phone Thea Rubio MD Primary Care Provider [phone]- [phone] Reason for Visit * Auth/Cert/Inpt Specialty Diagnoses / Procedures Referred By Contac t Referred To Contact Diagnoses Atrial septal defect Atrial septal defect [Q21.1] Procedures NV PERC CLOS,RIK INTERATRIAL COMMUN W/IMPL ATRIAL SEPTAL DEFECT CLOSURE Referral ID Status Reason Start Date Expiration Date Visits Re quested Visits Authorized [id number] 1 1 Encounter Details Date Type Department Care Team (Latest Contact Info) Description 07/09/2017 10:47 AM EDT - 07/10/2017 4:15 PM EDT Hospital Encounter [facility] [place] [id number] Genaro Ibarra MD [address] [place] [address] Atrial septal defect Discharge Disposition: Home or Self Care Social [...] documented in this encounter Discharge Summaries * Elver Jones, POTTERY DECORATION DESIGNER - 07/10/2017 10:09 AM EDT [facility] Discharge Summary Patient Name: Gardenia Childress [...] These medications were sent to [facility] [address] [place], [place] [address] [address] [address] - [phone] [address] [place] [address] ?? Aspirin 325 mg Tbec ?? clopidogrel 75 mg Tab Follow Up: Migue Anne MD [address] [place] [id number] Schedule an appointment as soon as possible for a visit in 1 week Signed: Elver Jones APRN 07/10/2017 10:09 AM Cosigned by Rosa Soriano MD at 07/10/2017 5:36 PM EDT documented in this encounter Discharge Instructions * Discharge Instructions* Mady Castro RN - 07/10/2017 4:00 PM EDT Images from the original note were not included. [facility] Discharge Instructions - Leg Access Best wishes are extended to you on behalf of [facility] as you are discharged. Because we [...] to your normal activities on {Time; dates multiple:02400}. You may return to work on {Time; dates multiple:96539}. Do NOT stop taking ASPIRIN and PLAVIX [...] EMERGENCY ROOM. PAIN ASSESSMENT Location: Condition: {Desc; acute/chronic/recent:22295} Current Pain Intensity: {Desc; severity w/0-10 scale:5014} Pain Management: {PAIN MANAGEMENT INSTRUCTIONS:48125471} IF PAIN INTENSIFIES OR PAIN IS UNRELIEVED WITH MEDICATIONS ORDERED, CALL YOUR PHYSICIAN. MEDICATIONS: *Contact your physician before resuming any medication from home not listed in the discharge medication instruction sheet. PRESCRIPTIONS: {Prescriptions for Discharge:71201115} FOLLOW-UP TO DOCTOR: {IP FOLLOW UP VISIT:90553512} ADDITIONAL INSTRUCTIONS: * Smoking is hazardous to [...] more often than directed. Talk to your supervisor shed workers regarding the use of this medicine in [...] for pain, tell your doctor or health care program resident if the pain lasts more than 10 [...] if prescribed by your doctor or health care program resident. Do not take aspirin or aspirin-like medicines [...] should report to your doctor or health care program resident as soon as possible: -allergic reactions like [...] attention (report to your doctor or health care program resident if they continue or are bothersome): -diarrhea or constipation -headache -nausea, vomiting -stomach gas, heartburn This list may not describe all possible side effects. Call your doctor for medical advice about side effects. You may report side effects to FDA at 5-003-DXD-5270. Where should I keep my medicine? Keep [...] take. The two forms of aspirin are: Auf-gmloage-lllbwo. This type of aspirin does not have a coating and is absorbed quickly. Zvp-axndbwz-qwywyc aspirin is usually recommended for people with chest pain. This type of aspirin also comesin a chewable form. Enteric-coated. This type of aspirin has a special coating that releases the medicine very slowly. Enteric-coated aspirin causes less stomach upset than fza-hxgulep-xpwnro aspirin. This type of aspirin should not [...] 03/20/2009 Document Revised: 04/28/2015 Document Reviewed: 07/13/2014 [employer] Interactive Patient Education ??2016 [employer]. -stomach or intestinal ulcers -stroke or transient [...] more often than directed. Talk to your supervisor shed workers regarding the use of this medicine in [...] this medicine? Visit your doctor or health care program resident for regular check ups. Do not stop taking your medicine unless your doctor tells you to. Notify your doctor or health care program resident and seek emergency treatment if you develop breathing problems; changes in vision; chest pain; severe, sudden headache; pain, swelling, warmth in the leg; trouble speaking; sudden numbness or weakness of the face, arm or leg. These can be signs that your condition has gotten worse. If you are going to have surgery or dental work, tell your doctor or health care program resident that you are taking this medicine. Certain genetic factors may reduce the effect of this medicine. Your doctor may use genetic tests to determine treatment. What side effects may I notice from receiving this medicine? Side effects that you should report to your doctor or health care program resident as soon as possible: -allergic reactions like [...] attention (report to your doctor or health care program resident if they continue or are bothersome): -constipation or diarrhea -headache -pain in back or joints -stomach upset This list may not describe all possible side effects. Call your doctor for medical advice about side effects. You may report side effects to FDA at 4-078-OHW-1142. Where should I keep my medicine? Keep [...] Self Nursing Home documented in this encounter Progress Notes * [...] Soriano MD - 07/10/2017 9:56 AM EDT [facility] Patient: Gardeniajosafat Childress Primary Boat Assembler: Dr Anne She has been in the [...] dry. No new rashes Left groin unremarkable Woodworking Craftsman: b SR Vitals: Vitals: 07/09/17 2215 07/10/17 [...] Intake/Output Summary (Last 24 hours) at 07/10/17 09 Last data filed at 07/09/172056 Gross per [...] Date of visit 07/09/17 Visit Type Initial [facility] Pastoral care brochure * Jag Lombardo RN - 07/09/2017 6:05 PM EDT 03/21/18 1802 Assessment Complete Actual Discharge Plan /////// 07/09/17, 1803, cc, ATRIAL SEPTAL DEFECT CLOSURE. indpt. . [...] ) Agency/Facility Options Offered, list provided N/A [facility] Financial Disclosure completed? N/A Follow-up Visit Follow-up Needed? Complete * Brittany Saucedo RN - 07/09/2017 5:10 PM EDT Right and left femoral sheaths removed. Pressure applied for 15 minutes. No complications. New dressings applied. CDI. No bleeding. No hematoma. BR restrictions reinforced. Verbalizes understanding. Will monitor. * Brittany Saucedo RN - 07/09/2017 4:07 PM EDT Pt arrived to room [facility] from [facility] via stretcher. VSS. Right and left [...] discussed with patient and/or patient's legal authorized healthcare representative. HISTORY AND PHYSICAL H&P is completed [...] fauces visible) Cath PCI Bleeding Risk Score Online Marketer; <=25 mild, 26-65 mod, >65 high: 35 Height: 5' 5 (165.1 cm) Weight: 145 lb (65.8 kg) BMI (Calculated): 24.2 Comment: Allergies Allergen Reactions ??? Latex Rash ??? Morphine Nausea And Vomiting Source Note - Genaro Ibarra MD - 06/20/2017 3:20 PM EST CHIEF COMPLAINT Chief Complaint Patient presents with ??? Atrial Septal Defect F/u WAYNE with Dr Dayana Flowers Fior is a 37 y.o. female who presents [...] (ICE) done during therapeutic and diagnostic interventions. C documented in this encounter Plan of Treatment Upcoming Encounters Date Type Department Care Team (Late st Contact Info) Description 04/24/2024 10:45 AM EST Clinical Support [facility] [address] [place] [address] documented as of this encounter Goals Goal [...] LR POC Routine 07/09/2017 1:46 PM EDT GLOVE EXAMINER HEMODYNAMIC WAVEFORMS Routine 07/09/2017 1:34 PM EDT POCT URINE Routine 07/09/2017 11:19 AM EDT documented in this encounter Results * SCANNED RHYTHM STRIPS (07/14/2017 7:59 PM EDT) Anatomical Region Laterality Modality Other 07/14/2017 7:59 PM EDT us Unknown Unknown IMG ECG ORDERABLES Final Result * EC ECHOCARDIOGRAM LIMITED (07/10/2017 12:31 PM EDT) [facility] Ejection Fraction 60-65 % PYRAMIS Anatomical Region [...] - 169 second(s) 07/09/2017 5:17 PM EDT [facility] Blood BLOOD SPECIMEN / Unknown 07/09/2017 4:51 PM EDT 07/09/2017 5:17 PM EDT us Genaro Ibarra MD POINT OF CARE TEST ORDERABLES Final Result Performing Organization Address City/[facility]/[place] [address] * (ABNORMAL) ACTIVATED CLOTTING TIME LR POC (07/09/2017 3:51 PM EDT) ACT-LR 186(H) 89 - 169 second(s) 07/09/2017 3:55 PM EDT [facility] Blood BLOOD SPECIMEN / Unknown 07/09/2017 3:51 PM EDT 07/09/2017 3:55 PM EDT us Genaro Ibarra MD POINT OF CARE TEST ORDERABLES Final Result Performing Organization Address City/[facility]/[place] [address] * XR CHEST AP PORTABLE (07/09/2017 3:22 [...] EDT Successful percutaneous ASD closure Right Heart [place] catheter inserted via the right femoral vein and advanced through right heart into pulmonary artery. Right atrial pressure is normal. There was no Pulmonary Hypertension. Pulmonary vascular resistance was normal us Genaro Ibarra MD CARDIAC CATH ORDERABLES Final Result Performing Organization Address City/[facility]/ZIP Co de Phone Number [facility] * (ABNORMAL) ACTIVATED CLOTTING TIME LR POC (07/09/2017 1:59 PM EDT) ACT-LR 344(H) 89 - 169 second(s) 07/09/2017 2:14 PM EDT [facility] Blood BLOOD SPECIMEN / Unknown 07/09/2017 1:59 PM EDT 07/09/2017 2:14 PM EDT us Genaro Ibarra MD POINT OF CARE TEST ORDERABLES Final Result [facility] [address] [place] [address] * (ABNORMAL) ACTIVATED CLOTTING TIME LR POC (07/09/2017 1:46 PM EDT) ACT-LR 394(H) 89 - 169 second(s) 07/09/2017 2:14 PM EDT [facility] Blood BLOOD SPECIMEN / Unknown 07/09/2017 1:46 PM EDT 07/09/2017 2:14 PM EDT us Genaro Ibarra MD POINT OF CARE TEST ORDERABLES Final Result Performing Organization Address [facility] de Phone Number [facility] [address] [place] [address] * GLOVE EXAMINER HEMODYNAMIC WAVEFORMS (07/09/2017 1:34 PM EDT) 07/09/2017 1:34 PM EDT us Genaro Ibarra MD CARDIAC CATH ORDERABLES Final Result Performing Organization Address [facility] Co de Phone Number [facility] [address] [place] [address] * POCT URINE (07/09/2017 11:19 AM EDT) Preg Test, Ur negative POS/NEG [facility] Lot Number [id number] [facility] Expiration Date 2018-06-18 [facility] SeriAl # [facility] Control Line Yes YES/NO [facility] 07/09/2017 11:1 9 AM EDT us Genaro Ibarra MD POINT OF CARE TEST ORDERABLES Final Result Performing Organization Address [facility] de Phone Number [facility] [address] [place], [place] [id number] documented in this encounter Visit Diagnoses Diagnosis [...] 325 mg, Oral, DAILY, First dose on Stephanie 07/10/17 at 0900, Until Discontinued, Do not crush or chew., Post-op Given 07/10/2017 9:14 AM EDT 325 mg ceFAZolin (ANCEF) IVPB 1 g 1 g, [...] Given 07/09/2017 5:52 PM EDT 5 mg metoclopramide HCl (REGLAN) injection 10 mg 10 mg, Intravenous, EVERY 6 HOURS PRN, Starting on Fri07/09/17 at 1510, Until Fri07/10/17 at 2052, Nausea, Post-op Given 07/09/2017 5:04 PM EDT 10 mg oxyCODONE-acetaminophen (PERCOCET) 5-325 mg per tablet 1-2 Tab 1-2 Tablet, Oral, EVERY 4 HOURS PRN, Starting on Fri07/09/17 at 1510, Until Fri07/10/17 at 2052, Pain, Begin with lowest dose unless otherwise [...] at 1130 1209 (Given - Provider: Sho Estrada, RN) Aspirin EC tablet 325 mg 325 mg, Oral, DAILY, First dose on Stephanie 07/10/17 at 0900, Until Discontinued, Do not crush [...] RN) 0914 (Given - Provider: Mady Castro, IVETTE) cyclobenzaprine (FLEXERIL) tablet 10 mg (COMPLETED) 10 mg, Oral, ONCE, 1 dose, On Fri07/09/17 at 1445 1513 (Given - Provider: Sho Estrada, RN) sodium chloride 0.9% syringe Intravenous, EVERY [...] (IV Stopped by Other - Provider: Mady Castro RN) PRN Medication Order 07/08/2017 07/09/2017 07/10/2017 [...] Fri07/09/17 at 1433, Until Stephanie 07/10/17 at 205, Muscle spasms 1752 (Given - Provider: Rogerio Caba RN) fentaNYL (SUBLIMAZE) injection (CANCELED) PRN, Starting on Fri07/09/17 at 1310, Until Fri07/09/17 at 1418, Intra-procedure(Cath) 1310 (Given - Provider: Meghan Nichols RN)1319 (Given - Provider: Meghan Nichols RN)1333 (Given - Provider: Meghan Nichols RN)1341 (Given - Provider: Meghan Nichols RN)1342 (Given - Provider: Meghan Nichols RN)1414 (Given - Provider: Meghan Nichols RN) heparin (porcine) injection (CANCELED) PRN, Starting on [...] Meghan Nichols RN)1333 (Given - Provider: Meghan Nichols, IVETTE)1342 (Given - Provider: Meghan Nichols RN)1402 (Given [...] , Post-op 1634 (Given - Provider: Jesus Saucedo RN)2045 (Given - Provider: Brittany Saucedo RN) sodium chloride 0.9% IV line flush 20-50 mL 20-50 mL, Intravenous, at 150-600 mL/hr, PRN, Starting on Fri07/09/17 at 1510, Until Stephanie 07/10/17 at 2052, Line Care, Flush with a minimum of 20 mL after IVPB to insure complete administration of the dose. May use the saline infusion to back flush IVPB tubing as needed. sodium chloride 0.9% syringe Intravenous, PRN, Starting on Fri07/09/17 at 1510, Until Stephanie 07/10/17 at 2052, [...] mg 1 07/09/2017 ceFAZolin (ANCEF) injection 1 07/09/2017 ceFAZolin (ANCEF) injection 1 g 1 8 fentaNYL (SUBLIMAZE) injection 1 07/09/2017 heparin (porcine) injection 1 07/09/2017 heparin 2 units/ml in 0.9% NaCl 500 mL 1 lidocaine 20 mg/mL (2 %) injection 1 2017 midazolam (VERSED) injection 1 07/09/2017 sodium chloride 0.9% IV line flush 20-50 mL 1 07/09/2017 sodium chloride 0.9% syringe 2 07/09/2017 Nursing Count Last Ordered Date First Orde red Date ADMISSION 07/10/2017 Transfer Count Last Ordered Date First Orde red Date BED REQUEST 1 07/09/2017 documented in this encounter Care Teams Counter Professional Relationship Specialty Start Date End Date Thea Rubio MD PCP - General Family Medicine 09/13/14 07/16/22 documented as of this encounter
--- OUTSIDE RECORDS SUMMARY | 2024-03-14 18:21 | XMS_ITS | Encounter Summary ---
Author Organization [place] [address] Care Team Providers Care Manager Technical Services Name Role Phone Thea Rubio MD Primary Care Provider +1- [phone] Reason for Visit * Reason Comments Other Encounter Details Date Type Department Care Team (Late st Contact Info) Description 07/18/2017 Telephone SEP [facility] [place] [facility] [address] [place] [address] Myrtle Vincent APRN Other Social History Tobacco Use Types Packs/Day [...] Telephone Encounter - Heather Holden LPN - 07/18/2017 4:16 PM EDT Patient notified of decreasing to ASA 81 mg daily and continuing plavix for the recommended 3 months. Patient notified she needed to schedule an ECHO in 3 months. Patient requested to call and schedule ECHO herself given the number [phone]. Patient verbalized understanding * Telephone Encounter - Heather Holden LPN - 07/18/2017 4:14 PM EDT Myrtle Vincent APRN I tried to call and reached an un identified voice mail. I left her a message that we would call back or she can call us. Please call and let her know the following: - decrease aspirin to 81 mg daily - stop plavix 3 mos after the ASD closure procedure - echo in 3 months documented in this encounter Plan of Treatment Upcoming Encounters Date Type Department Care Team (Late st Contact Info) Description 04/24/2024 10:45 AM EST Clinical Support [facility] [address] [place] [address] documented as of this encounter Goals Goal Patient Goal Type Associated Problems Recent Progress Patient-Stated? Author Maintain a healthy diet, exercise regularly and maintain an ideal body weight General No Thea Rubio MD Stay Tobacco Free Lifestyle No Thea Ruboi MD documented as of this encounter Visit Diagnoses Not on filedocumented in this encounter Care Teams Manager Technical Services Relationship Specialty Start Date End Date Thea Rubio MD PCP - General Family Medicine 09/13/14 07/16/22 documented as of this encounter
--- OUTSIDE RECORDS SUMMARY | 2024-03-14 18:21 | XMS_ITS | Encounter Summary ---
Author Organization [place] [address] Care Team Providers Care Pneumatic Tube Repairer Name Role Phone Thea Rubio MD Primary Care Provider +1- [phone] Reason for Visit * Reason Onset Date Comments Medication Problem 05/21/2017 Encounter Details Date Type Department Care Team (Late st Contact Info) Description 05/21/2017 Telephone [facility] [place] [address] [place] [address] Migeu Anne MD [address] [place] [address] Medication Problem Social History Tobacco Use Types Packs/Day Years [...] encounter Miscellaneous Notes * Telephone Encounter - Joanne Sandoval RN - 05/21/2017 1:24 PM EST DWP * Telephone Encounter - Tiny Ortega APRN - 05/21/2017 1:20 PM EST Do not start ASA at this time. Can discuss further at next appt. * Telephone Encounter - Joanne Sandoval RN - 05/21/2017 10:50 AM EST Pt returned call. Pt states her Liver specialist at Dr.Milton Rocha, said it would be ok for her to be on ASA if needed. 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 Pt has OV on 07/07 with to discuss ASD closure. Do you want pt on ASA? To Shanti * Telephone Encounter - Joanne Sandoval RN - 05/21/2017 10:42 AM EST [facility] for [facility] information * Telephone Encounter - Mya Ramirez, Clerical Staff - 05/21/2017 10:11 AM EST Pt called to see if she can take the low dose asa after her procedure coming up. She had a [place] procedure as an . Please call. documented in this encounter Plan of Treatment Upcoming Encounters Date Type Department Care Team (Late st Contact Info) Description 04/24/2024 10:45 AM EST Clinical Support [facility] [address] [place] [address] documented as of this encounter Goals Goal Patient Goal Type Associated Problems Recent Progress Patient-Stated? Author Maintain a healthy diet, exercise regularly and maintain an ideal body weight General No Thea Rubio MD Stay Tobacco Free Lifestyle No Thea Rubio MD documented as of this encounter Visit Diagnoses Not on filedocumented in this encounter Care Teams Pneumatic Tube Repairer Relationship Specialty Start Date End Date Thea Rubio MD PCP - General Family Medicine 09/13/14 07/16/22 documented as of this encounter
--- OUTSIDE RECORDS SUMMARY | 2024-03-14 18:21 | XMS_ITS | Encounter Summary ---
Author Organization [facility] [place] [address] Care Team Providers Care Drafter Mechanical Name Role Phone Thea Rubio MD Primary Care Provider [phone]- [phone] Reason for Visit * Reason Comments Follow-up H & P Scheduled with [facility] on 07/09/17 * Consultation (Routine) - Closed Specialty Diagnoses / Procedures Referred By Amalia tuttle Referred To Contact Internal Medicine-Cardiovascular Disease / Cardiology Diagnoses HFU DC 04/23/17 Procedures OFFICE VISIT Thea Rubio MD Phone: tel: fax: Migue Anne MD [address] [place] [address] [place] [address] Phone: tel: fax: Referral ID Status Reason Start Date Expiration Date Visits Re quested Visits Authorized [id number] Closed 05/05/2017 05/05/2018 1 99 Encounter Details Date Type Department Care Team (Late st Contact Info) Description 07/07/2017 8:30 AM EDT Office Visit [facility] [address] [place] [address] Migue Anne MD [address] [place] [address] [place] [address] Atrial septal defect (Primary Dx); Chest pain, unspecified type Social History Tobacco Use Types [...] Sign Reading Time Taken Comments Blood Pressure 94/60 07/07/2017 8:23 AM EDT Pulse 60 07/07/2017 8:23 AM EDT Temperature - - Respiratory Rate - - Oxygen Saturation - - Inhaled Oxygen Concentration - - Weight 65.8 kg (145 lb) 07/07/2017 8:23 AM EDT Height 165.1 cm (5' 5 ) 07/07/2017 8:23 AM EDT Body Mass Index 24.13 07/07/2017 8:23 AM EDT documented in this encounter Progress Notes * Migue Anne MD - 07/07/2017 8:30 AM EDT Cardiology Follow Up Visit Name: Gardenia Childress : 1980 Referring Physician Thea Rubio MD Reason for Follow-up Chest Brennan, ASD Chief Complaint Patient presents with ??? Follow-up H & P Scheduled with KM on 07/09/17 HPI 37 y.o. female is seen for follow up prior to undergoing ASD closure which is Scheduled this week. States she is not having chest pain but still feels sob with exertion at times. She did check with UC and was told it was ok to take asa and Plavix if needed. She has not had fever, chills, edema or palpitations. Once again we discussed the procedure. ROS Denies: Change in vision, headache, fever, [...] Tab, Rfl: 1 Allergies Allergen Reactions ??? Latex Rash ??? Morphine Nausea And Vomiting Objective Vitals: 07/07/17 0823 BP: 94/60 Pulse: 60 Exam: GENERAL APPEARANCE: In no acute distress [...] No results found for this visit on 07/07/17. Labs Lab Results Component Value Date CHOLESTEROL 154 05/14/2017 CHOLESTEROL 151 04/22/2017 CHOLESTEROL 174 10/07/2015 HDL 68 05/14/2017 HDL 63 04/22/2017 HDL 50 10/07/2015 LDLCALC 73 05/14/2017 LDLCALC 74 04/22/2017 LDLCALC 110 (H) 10/07/2015 TRIG 67 05/14/2017 TRIG 72 04/22/2017 TRIG 71 10/07/2015 Lab Results Component Value Date INR 1.06 07/04/2017 Lab Results Component Value Date WBC 7.7 07/04/2017 WBC 9.2 04/22/2017 WBC 7.9 10/07/2015 HGB 13.3 07/04/2017 HGB 14.5 04/22/2017 HGB 12.8 10/07/2015 HCT 39.4 07/04/2017 HCT 44.1 04/22/2017 HCT 39.5 10/07/2015 MCV 86.8 07/04/2017 MCV 86.6 04/22/2017 MCV 85.1 10/07/2015 PLT 258 07/04/2017 PLT 298 04/22/2017 PLT 298 10/07/2015 No results found for: HGBA1C Lab Results Component Value Date NA 140 07/04/2017 NA 141 05/14/2017 NA 141 04/22/2017 K 4.0 07/04/2017 K 3.9 05/14/2017 K 4.1 04/22/2017 BUN 6 07/04/2017 BUN 11 05/14/2017 BUN 11 04/22/2017 CALCIUM 8.9 07/04/2017 CALCIUM 8.9 05/14/2017 CALCIUM 9.1 04/22/2017 CL 105 07/04/2017 CL 108 (H) 05/14/2017 CL 108 (H) 04/22/2017 CO2 23 07/04/2017 CO2 21 (L) 05/14/2017 CO2 14 (L) 04/22/2017 CREATININE 0.79 07/04/2017 CREATININE 0.80 05/14/2017 CREATININE 0.77 04/22/2017 GLU 85 07/04/2017 GLU 75 05/14/2017 GLU 79 04/22/2017 Lab Results Component Value Date ALT 11 05/14/2017 ALT 14 04/22/2017 ALT 16 10/07/2015 AST 15 05/14/2017 AST 22 04/22/2017 AST 17 10/07/2015 ALKPHOS 67 05/14/2017 ALKPHOS 64 04/22/2017 ALKPHOS 69 10/07/2015 Lab Results Component Value Date TSHREFLEX 2.240 05/14/2017 Stress Echo 05/08: 9.8 METs negative ekg and echo. EF 60%. Mild RVD. ASD with left to right interatrial shunting. Mild TR. RVSP 19. Cardiac CT - normal cors but proximal vessels not well visualized. No congenital defects noted ?WAYNE 05/08: EF 55%. Mild JEFFREY. 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 ?? Assessment: ASD - No associated cardiac abnormalities on Cardiac CT - plans for percutaneous closure this week Atypical Chest Pain ?? - quiet Chronic Migraine ORTEGA's ?? H/o Biliary Atresia s/p Amber Procedure (hepatoportoenterostomy) as an - cleared to take asa and Plavix - reports she did have a dilation procedure of a biliary duct bout 10 years ago ?? 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 Plan: No new rec Once again reviewed procedure RTC 4 months. documented in this encounter Plan of Treatment Upcoming Encounters Date Type Department Care Team (Late st Contact Info) Description 04/24/2024 10:45 AM EST Clinical Support [facility] [address] [place] [id number] documented as of this encounter Goals Goal Patient Goal Type Associated Problems Recent Progress Patient-Stated? Author Maintain a healthy diet, exercise regularly and maintain an ideal body weight General No Thea Rubio MD Stay Tobacco Free Lifestyle No Thea Rubio MD documented as of this encounter Visit Diagnoses Diagnosis Atrial septal defect- Primary Ostium secundum type atrial septal defect Chest pain, unspecified type documented in this encounter Care Teams Drafter Mechanical Relationship Specialty Start Date End Date Thea Rubio MD PCP - General Family Medicine 09/13/14 07/16/22 documented as of this encounter
--- OUTSIDE RECORDS SUMMARY | 2024-03-14 18:21 | XMS_ITS | Encounter Summary ---
Author Organization [facility] [address] Care Team Providers Care Icer Machine Operator Name Role Phone Thea Rubio MD Primary Care Provider [phone]- [phone] Reason for Visit * Reason Comments Atrial Septal Defect F/u WAYNE with Dr Reggie michaud * Consultation (Routine) - Closed Specialty Diagnoses / Procedures Referred By Contac t Referred To Contact Internal Medicine-Cardiovascular Disease / Cardiology Diagnoses Dayana pt- needs to discuss possible ASD closure Procedures OFFICE VISIT Thea Rubio MD Phone: tel: fax: Genaro Ibarra MD [address] [place] [address] Phone: tel: fax: Referral ID Status Reason Start Date Expiration Date Visits Re quested Visits Authorized [id number] Closed 06/02/2017 06/02/2018 1 99 Encounter Details Date Type Department Care Team (Late st Contact Info) Description 06/20/2017 3:20 PM EST Office Visit [facility] [address] [place] [address] Genaro Ibarra MD [address] [place] [address] Atrial septal defect (Primary Dx) Social History Tobacco Use Types [...] Sign Reading Time Taken Comments Blood Pressure 96/64 06/20/2017 2:54 PM EST Pulse 72 06/20/2017 2:54 PM EST Temperature - - Respiratory Rate - - Oxygen Saturation - - Inhaled Oxygen Concentration - - Weight 65.3 kg (144 lb) 06/20/2017 2:54 PM EST Height 165.1 cm (5' 5 ) 06/20/2017 2:54 PM EST Body Mass Index 23.96 06/20/2017 2:54 PM EST documented in this encounter H&P Notes * Genaro Ibarra MD - 06/20/2017 3:20 PM EST CHIEF COMPLAINT Chief Complaint Patient presents with ??? Atrial Septal Defect F/u WAYNE with Dr Anne SUBJECTIVE Gardenia Childress is a 37 y.o. [...] Description 04/24/2024 10:45 AM EST Clinical Support [address] [address] documented as of this encounter Goals Goal [...] Discontinue Reason Start Date End Da te amoxicillin (AMOXIL) 875 mg Oral Tablet Take 875 mg by mouth 2 times daily. Pre dental procedure DELETE-Therapy completed 06/20/2017 documented as of this encounter Care Teams Icer Machine Operator Relationship Specialty Start Date End Date Thea Rubio MD PCP - General Family Medicine 09/13/14 07/16/22 documented as of this encounter
--- OUTSIDE RECORDS SUMMARY | 2024-03-14 18:21 | XMS_ITS | Encounter Summary ---
Author Organization [place] [address] Care Team Providers Care Tape Recording Machine Operator Name Role Phone Thea Rubio MD Primary Care Provider +1- [phone] Reason for Visit * Reason Onset Date Comments Menstrual Problem 07/23/2017 Encounter Details Date Type Department Care Team (Late st Contact Info) Description 07/23/2017 Telephone [facility] [address] [place] [address] Thea Rubio MD [address] [place], [place] [id number] Menstrual Problem Social History Tobacco Use Types Packs/Day [...] Refills Last Filled Start Date End Date medroxyPROGESTERone (PROVERA) 10 mg Oral TabletIndications:M enorrhagia with regular cycle Take 1 Tab by mouth daily for 10 days. 10 Tab 07/23/2017 08/02/2017 documented in this encounter Miscellaneous Notes * Telephone Encounter - Thea Rubio MD - 07/23/2017 5:32 PM EDT Sent in 10 days of Provera. * Telephone Encounter - Susan Oliveira RMA - 07/23/2017 5:13 PM EDT Pt states she has went through a 36 pack of super plus tampons in [address] Rubio she will send in med to help with the bleeding Please send to [facility] * Telephone Encounter - Thea Rubio MD - 07/23/2017 12:42 PM EDT I suspect the heavy menses was from the stress of her recent heart procedure and aggravated by the aspirin and Plavix that she is taking. Unless she is bleeding so heavily that she is lightheaded, just see if the bleeding doesn't decrease in the next 2 days. If still bleeding fairly heavily in 2 days, let me know and I will put her on med to try to slow it down some. * Telephone Encounter - Mima Thompson - 07/23/2017 9:03 AM EDT Pt Calling that her Menstrual Cycle is Very Heavy this month, Says it usually lasts For About 3 Days , she is on Day 6 Now And Passing Some Clots Also, not Having Any Pain Or Cramping.please advise documented in this encounter Plan of Treatment Upcoming Encounters Date Type Department Care Team (Late st Contact Info) Description 04/24/2024 10:45 AM EST Clinical Support [facility] [address] [place] [address] documented as of this encounter Goals Goal Patient Goal Type Associated Problems Recent Progress Patient-Stated? Author Maintain a healthy diet, exercise regularly and maintain an ideal body weight General No Thea Rubio MD Stay Tobacco Free Lifestyle No Thea Rubio MD documented as of this encounter Visit Diagnoses Diagnosis Menorrhagia with regular cycle- Primary Excessive or frequent menstruation documented in this encounter Care Teams Tape Recording Machine Operator Relationship Specialty Start Date End Date Thea Rubio MD PCP - General Family Medicine 09/13/14 07/16/22 documented as of this encounter
--- OUTSIDE RECORDS SUMMARY | 2024-03-14 18:21 | XMS_ITS | Encounter Summary ---
Author Organization [place] [address] Care Team Providers Care Area Intelligence Technician Name Role Phone Thea Rubio MD Primary Care Provider [phone]- [phone] Reason for Visit * Reason Comments Gynecologic Exam Encounter Details Date Type Department Care Team (Late st Contact Info) Description 10/06/2017 8:45 AM EDT Office Visit [facility] [address] [place] [address] Thea Rubio MD [address] [place] [address] [id number] ASCUS of cervix with negative high risk HPV (Primary Dx); Visit for gynecologic examination; High risk sexual behavior Social History Tobacco Use Types Packs/Day Years [...] Sign Reading Time Taken Comments Blood Pressure 120/74 10/06/2017 8:50 AM EDT Pulse 72 10/06/2017 8:50 AM EDT Temperature 36.5 ??C (97.7 ??F) 10/06/2017 8:50 AM ED T Respiratory Rate - - Oxygen Saturation 99% 10/06/2017 8:50 AM EDT Inhaled Oxygen Concentration - - Weight 62.1 kg (137 lb) 10/06/2017 8:50 AM EDT Height 165.1 cm (5' 5 ) 10/06/2017 8:50 AM EDT Body Mass Index 22.8 10/06/2017 8:50 AM EDT documented in this encounter Progress Notes * Thea Rubio MD - 10/06/2017 8:45 AM EDT Subjective Ms. Childress is a 37 y.o. female here for an annual wellness physical exam. Just lost of 19 yrs, 4-16-18. Does still have nights she can't sleep well. Depressed but never suicidal. Has support system. Still has menses. Wants an STD check, recent new contact. Patient Active Problem List Diagnosis ??? Congenital biliary atresia ??? Migraine without aura ??? Celiac artery stenosis (HCC) ??? Precordial pain ??? ASCUS of cervix with negative high risk HPV Past Medical History: Diagnosis Date ??? Bile [...] old ??? CHOLECYSTECTOMY couple mos old. Infant Allergies Allergen Reactions ??? Latex Rash ??? Morphine Nausea And Vomiting Current Outpatient Prescriptions on File Prior to Visit Medication Sig Dispense Refill ??? aspirin 81 mg Oral Tablet, Delayed Release (E.C.) Take 1 Tab by mouth daily. 30 Tab 11 ??? clopidogrel (PLAVIX) 75 mg Oral Tablet Take 1 Tab by mouth daily. 90 Each 1 ??? norethindrone-ethinyl estradiol (ORTHO-NOVUM) 0.5/0.75/1 mg- 35 mcg Oral Tablet Take 1 Tab by mouth daily. 28 Tab 3 No current facility-administered medications on file prior [...] Topic Date Due ??? Annual Wellness Exam 04/18/2018 ??? Cervical Cancer Screening 04/18/2020 ??? Influenza Vaccine Addressed There are no preventive care reminders to display for this patient. Patient Care Team: Thea Rubio MD as PCP - General (Family Medicine) Review of Systems Respiratory: Positive for chest tightness. All other systems reviewed and are negative. Occ chest tightness can be with or without activity Objective BP 120/74 (BP Location: Left arm, Patient Position: Sitting) Pulse 72 Temp 97.7 ??F (36.5 ??C) (Oral) Ht 5' 5 (1.651 m) Wt 137 lb (62.1 kg) LMP 09/08/2017 SpO2 99% BMI 22.80 kg/m?? Physical Exam Constitutional: She is oriented to person, place, and time. She appears well- developed and well-nourished. HENT: Head: Normocephalic and atraumatic. Right Ear: External ear normal. Left Ear: External ear normal. Nose: Nose normal. Mouth/Throat: Oropharynx is clear and moist. Eyes: Conjunctivae are normal. Pupils are equal, round, and reactive to light. Neck: Normal range of motion. Neck supple. No tracheal deviation present. No thyromegaly present. Cardiovascular: Normal rate, regular rhythm and normal heart sounds. Pulmonary/Chest: Effort normal and breath sounds normal. Abdominal: Soft. She exhibits no mass. There is no tenderness. Genitourinary: Vagina normal and uterus normal. No breast swelling or discharge. Pelvic exam was performed with patient supine. Genitourinary Comments: Pap done with broom. Bimanual normal. GC, Chlamydia cult taken Lymphadenopathy: She has no cervical adenopathy. Neurological: She is alert and oriented to person, place, and time. Skin: Skin is warm and dry. Psychiatric: She has a normal mood and affect. Her behavior is normal. Judgment and thought contentnormal. Vitals reviewed. Lab Results Component Value Date WBC 7.7 07/04/2017 HGB 13.3 07/04/2017 HCT 39.4 07/04/2017 PLT 258 07/04/2017 CHOLESTEROL 154 05/14/2017 TRIG 67 05/14/2017 HDL 68 05/14/2017 LDLCALC 73 05/14/2017 ALT 11 05/14/2017 AST 15 05/14/2017 NA 140 07/04/2017 K 4.0 07/04/2017 CL 105 07/04/2017 CREATININE 0.79 07/04/2017 BUN 6 07/04/2017 CO2 23 07/04/2017 INR 1.06 07/04/2017 GLU 85 07/04/2017 TSHREFLEX 2.240 05/14/2017 Diagnoses and all orders for this visit: ASCUS of cervix with negative high risk HPV-pap done. Overview: Mar 2017 Visit for gynecologic examination High risk sexual behavior - HEPATITIS B SURFACE ANTIGEN; Future - HEPATITIS C ANTIBODY - SCREENING; Future - HIV AG/AB; Future - SYPHILIS SCREEN WITH REFLEX RPR QUANT; Future [facility] Documentation Medication Compliance: Compliant all the time Understanding of Current Medications: Good Medication Compliance Barriers: None or N/A Self-Management Tools: Home weight monitoring Self-Management Ability: Good Willingness to Adopt Healthy Behaviors: Good Potential Barriers to completing treatment plans today: No significant barriers [facility] Flowsheet was completed/reviewed as part of today's visit. Educated patient regarding the diagnosis, medication/treatment, goals, self- management tools and instructions based on their care plan. They verbalized understanding of the education given on the After Visit Summary [AVS] for today's visit. A copy of the AVS was provided either in writing and/or via MyChart. A new medicine was not prescribed on this visit. documented in this encounter Miscellaneous Notes * Patient Instructions - Thea Rubio MD - 10/06/2017 8:45 AM EDT Current Exercise Recommendations, U.[place] Dept of Health and Human services, 2013 Age Group 6-18 years old 1 hour per day (moderate or vigorous) Muscle strengthening at least 3 days a week involving all major Muscle groups. 18-65 years old 150 minutes per week (moderate) OR 75 minutes per week (vigorous) For additional health benefits: 300 minutes per week (moderate) OR 150 minutes per week (vigorous) Over 65 years old Follow adult guidelines if symptoms allow All adults Muscle strengthening at least 2 days a week involving all major Muscle groups. Exercise reduces all-cause mortality (earlier than expected ) and heart risk. It improves glucose control, lipids, blood pressure and quality of life. Moderate exercise increases the heart rate noticeably. Vigorous exercise increases the heart rate and causes rapid breathing. * Addendum Note - Susan Oliveira RMA - 10/06/2017 8:45 AM EDTAddended by: SUSAN OLIVEIRA on: 10/06/2017 12:13 PM Modules accepted: Orders documented in this encounter Plan of Treatment Upcoming Encounters Date Type Department Care Team (Late st Contact Info) Description 04/24/2024 10:45 AM EST Clinical Support [facility] [address] [place] [id number] documented as of this encounter Goals Goal Patient Goal Type Associated Problems Recent Progress Patient-Stated? Author Maintain a healthy diet, exercise regularly and maintain an ideal body weight General No Thea Rubio MD Stay Tobacco Free Lifestyle No Thea Rubio MD documented as of this encounter Procedures Procedure Name Priority Date/Time Associated Diagnosis Comments AUTOMOBILE DAMAGE FIELD APPRAISER CYTOLOGY REQUEST (PAP ONLY) Routine 10/06/2017 12:18 PM EDT Visit for gynecologic examination [facility] AUTOMOBILE DAMAGE FIELD APPRAISER CYTOLOGY ORDER Routine 10/06/2017 12:18 PM EDT Visit for gynecologic examination HPV HIGH RISK WITH REFLEX TO GENOTYPE Routine 10/06/2017 12:18 PM EDT Visit for gynecologic examination CHLAMYDIA/GC Routine 10/06/2017 12:15 PM EDT High risk sexual behavior CHLAMYDIA/GC BY TMA Routine 10/06/2017 1 2:15 PM EDT High risk sexual behavior documented in this encounter Results * HPV HIGH RISK WITH REFLEX TO GENOTYPE (10/06/2017 12:18 PM EDT) HPV HR Reflex Not Detected Not Detected 018 9:48 AM EDT [facility] Thin Prep SPECIMEN FROM UTERINE CERVIX / Unknown 10/06/2017 12:18 PM EDT 10/06/2017 12:18 PM EDT Narrative [facility] - 10/07/2017 9:48 AM EDT This test was performed using the FDA Approved APTIMA HPV mRNA assay which detects E6/E7 messenger RNA of High Risk HPV types (16, 18, 31, 33, 35, 39, 45, 51, 52, 56, 58, 59, 66, and 68).?? This assay is intended for use in [...] MICROBIOLOGY - GENERAL ORD ERABLES Final Result [facility] [address] [facility] [address], [address] [place] [address] * AUTOMOBILE DAMAGE FIELD APPRAISER CYTOLOGY REQUEST (PAP ONLY) (10/06/2017 12:18 PM EDT) CASE REPORT Gynecologic Cytology Report ? Case: [id number] ? Authorizing Provider: ??Thea Rubio MD ?Collected: ? 10/06/2017 1218 ? Ordering Location: ? [facility] ? Received: ?10/06/2017 1218 ? First Screen: ?Diego Raza, ? CT ? Rescreen: ?Lauren De Anda, CT ? Specimen: ?LIQUID-BASED PAP - CERVICAL, Cervix ? 10/09/2017 12:11 PM EDT [facility] PAP FINAL DIAGNOSIS Negative for intraepithelial lesion or malignancy 10/09/2017 12:11 PM EDT [facility] OSCOPIC DESCRIPTION Microscopic examination is performed and the findings corroborate the diagnosis. 10/09/2017 12:11 PM EDT [facility] PAP SMEAR ADEQUACY Satisfactory for evaluation 10/09/2017 12:11 PM EDT [facility] ENDOCERVICAL T-ZONE Transformation zone present 10/09/2017 12:11 PM EDT [facility] EMBEDDED IMAGES 8 12:11 PM EDT [facility] PAP DISCLAIMER The Pap Smear is a screening test that aids in the detection of cervical cancer and cancer precursors. Both false positive and false negative results can occur. The test should be used at regular intervals, and positive results should be confirmed before definitive therapy. Processed using the ThinPrep Materials Inspector Automated cytology screening device ([employer]). 10/09/2017 12:11 PM EDT [facility] Thin Prep SPECIMEN FROM UTERINE CERVIX / Unknown 10/06/2017 12:18 PM EDT 10/06/2017 12:18 PM EDT us Thea Rubio MD CYTOLOGY ORDERABLES Final Result [facility] [address] [place] [address] * CHLAMYDIA/GC BY TMA (10/06/2017 12:15 PM EDT) Chlamydia trachomatis Not Detected Not Detected 10/07/2017 1:13 PM EDT [facility] Neisseria gonorrhoeae Not Detected Not Detected 10/07/2017 1:13 PM EDT [facility] Thin Prep SPECIMEN FROM UTERINE CERVIX / Unknown 10/06/2017 12:15 PM EDT 10/06/2017 12:15 PM EDT Narrative [facility] - 10/07/2017 1:13 PM EDT Testing methodology is java user interface developer mediated amplification (TMA) using the Aptima Combo 2 assay from [employer]. A negative result does not completely rule [...] characteristics of this test were validated by [facility]. This assay is FDA cleared to test the following specimens: clinician-collected endocervical, vaginal and male urethral swab specimens, patient collected vaginal specimens within a clinic setting, Thin Prep Specimens in PreservCyt Solution, and first-stream, unpreserved male urine specimens. Testing on female urine is not FDA approved by this methodology, but has been developed and validated by the [facility] laboratory.?? Detailed methodology is available upon request. Thea Rubio MD MICROBIOLOGY - GENERAL ORD ERABLES Final Result Performing Organization Address City/[facility]/ZIP Co de Phone Number [facility] [address] [place] [address] , [place] [address] * SYPHILIS SCREEN WITH REFLEX RPR QUANT (10/06/2017 9:58 AM EDT) Trep Ab Index 0.06 <=0.99 Index Value 10/06/2017 10:02 PM EDT [facility] Comment: < 1.00 - Negative ?? >=1.00 - Positive NOTE: ??All positive results will be reflexed to Quantitative Non-Treponemal(RPR)test. ?? Blood Venipuncture / Unknown 10/06/2017 9:58 AM EDT 10/06/2017 9:58 AM EDT Thea Rubio MD CHEMISTRY ORDERABLES Final Result Performing Organization Address [facility]/ZIP Co de Phone Number [facility] [address] [facility] , [place] [address] * HIV AG/AB (10/06/2017 9:58 AM EDT) HIV Ag/AB Non-Reacti ve Non-Reactive, See Footnote 10/06/2017 10:01 PM EDT [facility] Blood Venipuncture / Unknown 10/06/2017 9:58 AM EDT 10/06/2017 9:58 AM EDT us Thea Rubio MD IMMUNOLOGY ORDERABLES Antonia l Result Performing Organization Address City/[facility]/ZIP Co de Phone Number [facility] [address] [facility] , [place] [address] * HEPATITIS C ANTIBODY - SCREENING (10/06/2017 9:58 AM EDT) Hep C Ab Non-Reactiv e Non-Reacti ve 10/06/2017 10:01 PM EDT [facility] Blood Venipuncture / Unknown 10/06/2017 9:58 AM EDT 10/06/2017 9:58 AM EDT Result Placido Rubio MD HEMATOLOGY ORDERABLES Antonia l Result Performing Organization Address [facility] Co de Phone Number [facility] [address] [facility] , [place] [address] * HEPATITIS B SURFACE ANTIGEN (10/06/2017 9:58 AM EDT) Hep Bs Ag Non-Reactiv e Non-Reacti ve 10/06/2017 10:01 PM EDT [facility] Blood Venipuncture / Unknown 10/06/2017 9:58 AM EDT 10/06/2017 9:58 AM EDT Result Placido Rubio MD CHEMISTRY ORDERABLES Final Result Performing Organization Address City/[facility]/ZIP Co de Phone Number [facility] [address] [facility] , [place] [address] documented in this encounter Visit Diagnoses Diagnosis ASCUS of cervix with negative high risk HPV- Primary Visit for gynecologic examination Routine gynecological examination High risk sexual behavior Problems related to high-risk sexual behavior documented in this encounter Discontinued Medications Medication Sig Discontinue Reason Start Date End Da te dicyclomine (BENTYL) 10 mg Oral Capsule Take 1 Cap by mouth 4 times daily as needed (for cramps after menses). DELETE-Therapy completed 03/25/2017 10/06/2017 LORazepam (ATIVAN) 1 mg Oral Tablet Take 0.5-1 Tabs by mouth 2 times daily as needed for Anxiety. DELETE-Therapy completed 08/07/2017 10/06/2017 SUMAtriptan (IMITREX) 25 mg Oral Tablet TAKE ONE TABLET BY MOUTH NEEDED FOR MIGRAINE DELETE-Therapy completed 03/19/2017 10/06/2017 topiramate (TOPAMAX) 50 mg Oral TabletIndications:Migr rose without aura and without status migrainosus, not intractable TAKE ONE TABLET BY MOUTH TWICE A DAY (MAY ADD EXTRA PILL AT NIGHT WHEN HAVING MIGRAINE FLARES) DELETE-Therapy completed 07/30/2017 10/06/2017 documented as of this encounter Additional Health Concerns Assessment Noted Time PHQ-9 Depression Total Score: 2 10/07/19 18 8:00 AM EDT PHQ-2 Depression Total Score: 2 10/07/19 8:00 AM EDT documented as of this encounter Care Teams Area Intelligence Technician Relationship Specialty Start Date End Date Thea Rubio MD PCP - General Family Medicine 09/13/14 07/16/22 documented as of this encounter
--- OUTSIDE RECORDS SUMMARY | 2024-03-14 18:21 | XMS_ITS | Encounter Summary ---
Author Organization [place] [address] Care Team Providers Care Display Designer Name Role Phone Thea Rubio MD Primary Care Provider [phone]- [phone] Caty Porter RN Unavailable [phone] Reason for Visit * Reason Onset Date Comments Hospital Follow Up 07/11/2017 Care Transition 07/11/2017 Encounter Details Date Type Department Care Team (Late st Contact Info) Description 07/11/2017 Patient Outreach [facility] [address] [place] [address] Caty Porter RN [address] [place], [place] [id number] Hospital Follow Up; Care Transition Social History Tobacco Use Types Packs/Day Years [...] as of this encounter Progress Notes * Caty Porter, RN - 07/11/2017 10:34 AM EDT Spoke with patient. She is on her way shortly to [facility]le pumper prescription of plavix. Educated on potential side effects of medication as well as when to contact providers. Patient to follow up with cardiology-states will call this morning to schedule follow up. Denies questions or concerns at this time. Encouraged her to call prn. * Caty Porter RN - 07/11/2017 10:24 AM EDT Follow up scheduled/pre-arranged cardiac procedure, new to plavix. documented in this encounter Plan of Treatment Upcoming Encounters Date Type Department Care Team (Late st Contact Info) Description 04/24/2024 10:45 AM EST Clinical Support [facility] [address] [place] [address] documented as of this encounter Goals Goal Patient Goal Type Associated Problems Recent Progress Patient-Stated? Author Maintain a healthy diet, exercise regularly and maintain an ideal body weight General No Thea Rubio MD Stay Tobacco Free Lifestyle No Thea Rubio MD documented as of this encounter Visit Diagnoses Not on filedocumented in this encounter Care Teams Display Designer Relationship Specialty Start Date End Date Thea Rubio MD PCP - General Family Medicine 09/13/14 07/16/22 Caty Porter RN [address] [place] [address] [facility] Registered Nurse 07/11/17 07/11/17 documented as of this encounter
--- OUTSIDE RECORDS SUMMARY | 2024-03-14 18:21 | XMS_ITS | Encounter Summary ---
Author Organization [place] [address] Care Team Providers Care Mother Repairer Name Role Phone Thea Rubio MD Primary Care Provider [phone] Reason for Visit * Reason Onset Date Comments ED Follow-Up Call 10/10/2017 Encounter Details Date Type Department Care Team (Late st Contact Info) Description 10/10/2017 Patient Outreach [facility] [address] [place] [address] Thea Rubio MD [address] [place], [place] [id number] ED Follow-Up Call Social History Tobacco Use [...] Progress Notes * Sparkle Ghotra MA - 10/10/2017 10:32 AM EDT ED Follow Up Regarding the most recent emergency room visit: Appropriate for follow up?: Yes Contact made?: Yes Are you feeling better?: Yes Were you able to, or did you try to, reach us prior to deciding to go to the ED?: Yes Were you aware that we always have a provider manager installation and offer eVisits?: Yes Reason you chose to go to ED as site for your medical care?: Severe Pain, Severity of Illness Chronicity of Severe Pain: new/acute Did you get a prescription, or were [...] Clinical Support [facility] [address] [place] [id number] documented as of this encounter Goals Goal [...] documented as of this encounter Care Teams Mother Repairer Relationship Specialty Start Date End Date Thea Rubio MD PCP - General Family Medicine 09/13/14 07/16/22 documented as of this encounter
--- OUTSIDE RECORDS SUMMARY | 2024-03-14 18:21 | XMS_ITS | Encounter Summary ---
Author Organization [place] [address] Care Team Providers Care Manager Technical Support Name Role Phone Thea Rubio MD Primary Care Provider [phone] Encounter Details Date Type Department Care Team (Latest Contact Info) Description 07/04/2017 4:19 PM EDT - 07/04/2017 11:59 PM EDT Hospital Encounter [facility] [address] [place] [address] Preop testing; ASD (atrial septal defect) Discharge Disposition: Home [...] Clinical Support [facility] [address] [place] [address] documented as of this encounter Goals Goal Patient Goal Type Associated Problems Recent Progress Patient-Stated? Author Maintain a healthy diet, exercise regularly and maintain an ideal body weight General No Thea Rubio MD Stay Tobacco Free Lifestyle No Thea Rubio, MD documented as of this encounter Procedures Procedure Name Priority Date/Time Associated Diagnosis Comments PT / INR Routine 07/04/2017 4:26 PM EDT CBC WITH DIFF Routine 07/04/2017 4:26 PM EDT BASIC METABOLIC PANEL Routine 07/04/2017 4:26 PM EDT Preop testing ASD (atrial septal defect) documented in this encounter Results * BASIC METABOLIC PANEL (07/04/2017 4:26 PM EDT) Sodium 140 136 - 145 mmol/L 07/04/2017 8:15 PM EDT [facility] Potassium 4.0 3.5 - 5.0 mmol/L 07/04/2017 8:15 PM EDT [facility] Chloride 105 98 - 107 mmol/L 07/04/2017 8:15 PM EDT [facility] Total CO2 23 22 - 29 mmol/L 07/04/2017 8:15 PM EDT [facility] Anion Gap 12 7 - 16 mmol/L 07/04/2017 8:15 PM EDT [facility] Calcium 8.9 8.6 - 10.2 mg/dL 07/04/2017 8:15 PM EDT [facility] Glucose Lvl 85 74 - 100 mg/dL 07/04/2017 8:15 PM EDT [facility] BUN 6 6 - 20 mg/dL 07/04/2017 8:15 PM EDT [facility] Creatinine 0.79 0.51 - 1.30 mg/dL 07/04/2017 8:15 PM EDT [facility] GFR Afr Am 112 mL/min/1.7 3 m2 07/04/2017 8:15 PM EDT [facility] GFR Non Afr Am 97 mL/min/1.7 3 m2 07/04/2017 8:15 PM EDT [facility] Comment: GFR Afr Am and [...] Ibarra MD CHEMISTRY ORDERABLES Final Res ult [facility] [address] [place] [address] * PT / INR (07/04/2017 4:26 PM EDT) PT 12.4 9.7 - 12.5 second(s) 07/04/2017 4:48 PM EDT [facility] INR 1.06 0.84 - 1.08 no units 07/04/2017 4:48 PM EDT [facility] Comment: Level of Therapy ? Indications ?Target INR Range Standard Dose Treatment and prophylaxis of venous ? 2.0 - 3.0 ? thrombosis, pulmonary embolism High Dose ? High risk patients with mechanical ? 2.5 - 3.5 ? heart valves Blood Venipuncture / Unknown 07/04/2017 4:26 PM EDT 07/04/2017 4:26 PM EDT us Genaro Ibarra MD HEMATOLOGY ORDERABLES Final Re sult [facility] [address] [place] [address] * CBC WITH DIFF (07/04/2017 4:26 PM EDT) WBC 7.7 4.0 - 11.0 x10(3)/mcL 07/04/2017 4:42 PM EDT [facility] RBC 4.54 3.80 - 5.10 x10(6)/mcL 07/04/2017 4:42 PM EDT [facility] Hgb 13.3 12.0 - 15.6 gm/dL 07/04/2017 4:42 PM EDT [facility] Hct 39.4 35.7 - 45.9 % 07/04/2017 4:42 PM EDT [facility] MCV 86.8 82.5 - 99.8 fL 07/04/2017 4:42 PM EDT [facility] MCH 29.3 27.0 - 34.3 pg 07/04/2017 4:42 PM EDT [facility] MCHC 33.7 32.1 - 35.3 gm/dL 07/04/2017 4:42 PM EDT [facility] RDW 13.2 11.5 - 15.0 % 07/04/2017 4:42 PM EDT [facility] Platelet 258 144 - 423 x10(3)/mcL 07/04/2017 4:42 PM EDT [facility] MPV 8.0 6.8 - 10.8 fL 07/04/2017 4:42 PM EDT [facility] Neut Percent 60.2 % 07/04/2017 4:42 PM EDT [facility] Lymph Percent 26.3 % 07/04/2017 4:42 PM EDT [facility] [place] Percent 7.5 % 07/04/2017 4:42 PM EDT [facility] Eos Percent 5.4 % 07/04/2017 4:42 PM EDT [facility] Baso Percent 0.6 % 07/04/2017 4:42 PM EDT [facility] Neut # 4.6 1.8 - 7.7 x10(3)/[facility] 07/04/2017 4:42 PM EDT [facility] Lymph # 2.0 0.6 - 4.8 x10(3)/[facility] 07/04/2017 4:42 PM EDT [facility] [place] # 0.6 0.0 - 1.3 x10(3)/[facility] 07/04/2017 4:42 PM EDT [facility] Eos# 0.4 0.0 - 0.5 x10(3)/[facility] 07/04/2017 4:42 PM EDT [facility] Baso # 0.0 0.0 - 0.2 x10(3)/[facility] 07/04/2017 4:42 PM EDT [facility] Blood Venipuncture / Unknown 07/04/2017 4:26 PM EDT 07/04/2017 4:26 PM EDT us Genaro Ibarra MD HEMATOLOGY ORDERABLES Final Re sult [facility] [address] [place] [id number] documented in this encounter Visit Diagnoses Diagnosis Preop testing Preoperative examination, unspecified ASD (atrial septal defect) Ostium secundum type atrial septal defect documented in this encounter Care Teams Manager Technical Support Relationship Specialty Start Date End Date Thea Rubio MD PCP - General Family Medicine 09/13/14 07/16/22 documented as of this encounter
--- OUTSIDE RECORDS SUMMARY | 2024-03-14 18:21 | XMS_ITS | Encounter Summary ---
Author Organization [place] [place] [address] Care Team Providers Care Garment Parts Cutter Hand Name Role Phone Thea Rubio MD Primary Care Provider [phone] Caty Porter RN Unavailable [phone] Reason for Visit * Reason Onset Date Comments Hospital Follow Up 07/11/2017 Encounter Details Date Type Department Care Team (Late st Contact Info) Description 07/11/2017 Telephone [facility] [address] [place] [id number] Migue Anne MD [address] [place] [address] Hospital Follow Up Social History Tobacco Use Types Packs/Day Years [...] Telephone Encounter - Heather Holden LPN - 07/11/2017 2:07 PM EDT Patient scheduled office visit with Myrtle Vincent APRN 07/17/17 at 10:45. * Telephone Encounter - Tiny Ortega APRN - 07/11/2017 1:34 PM EDT Please offer appt with Abbey next week or me in 3-4 weeks * Telephone Encounter - Heather Michelle RMA - 07/11/2017 12:58 PM EDT Please advise on with whom/when the patient should be seen * Telephone Encounter - nEa Stephen, Clerical Staff - 07/11/2017 12:03 PM EDT Pt released from hospital on 07.10.17-needs a followup with dr anne. documented in this encounter Plan of Treatment Upcoming Encounters Date Type Department Care Team (Late st Contact Info) Description 04/24/2024 10:45 AM EST Clinical Support [facility] [address] [place] [address] documented as of this encounter Goals Goal Patient Goal Type Associated Problems Recent Progress Patient-Stated? Author Maintain a healthy diet, exercise regularly and maintain an ideal body weight General No Thea Rubio MD Stay Tobacco Free Lifestyle No Thea Rubio MD documented as of this encounter Visit Diagnoses Not on filedocumented in this encounter Care Teams Garment Parts Cutter Hand Relationship Specialty Start Date End Date Thea Rubio MD PCP - General Family Medicine 09/13/14 07/16/22 Caty Porter RN [address] [place] [address] [facility] Registered Nurse 07/11/17 07/11/17 documented as of this encounter
--- OUTSIDE RECORDS SUMMARY | 2024-03-14 18:21 | XMS_ITS | Encounter Summary ---
Author Organization [place] [address] Care Team Providers Care Yard Rigger Name Role Phone Thea Rubio MD Primary Care Provider [phone] Reason for Visit * Reason Comments Hip Pain right hip pain after steping of of a stair wrong Back Pain right sided CPTA: no ne Encounter Details Date Type Department Care Team (Late st Contact Info) Description 10/09/2017 7:38 PM EDT - 10/09/2017 8:26 PM EDT Emergency [facility] [address] [facility] [place] [address] Anderson Chery MD [address] [place] [id number] Strain of lumbar region, initial encounter (Primary Dx) Discharge Disposition: Home or Self [...] Sign Reading Time Taken Comments Blood Pressure 135/81 10/09/2017 7:29 PM EDT Pulse 71 10/09/2017 7:29 PM EDT Temperature 36.8 ??C (98.3 ??F) 10/09/2017 7:29 PM ED T Respiratory Rate 16 10/09/2017 7:29 PM EDT Oxygen Saturation 100% 10/09/2017 7:29 PM EDT Inhaled Oxygen Concentration - - Weight - - Height - - Body Mass Index - - documented in this encounter Discharge Instructions * Discharge Instructions* Gabriella Campbell PA-C - 10/09/2017 8:12 PM EDT Apply ice to your low back 30 minutes 3-4 times a day. After 24 hours you may alternate ice with moist heat. Take Tylenol as needed for pain. Robaxin as needed for muscle flap. Follow-up with primary care physician in 2 days. Return to the ED for worsening symptoms including increased pain, pain radiating to chest abdomen or extremities, shortness of breath, numbness or tingling in your extremities or other concerns. documented in this encounter Ordered Prescriptions Prescription Sig Dispense Quantity Refills Last Filled Start Date End Date methocarbamol (ROBAXIN) 750 mg Oral Tablet Take 1 Tab by mouth 3 times daily as needed for Pain for up to 12 doses. 12 Tab 10/09/2017 11/19/2017 documented in this encounter Discharge Disposition Disposition Code Departure Means Destination Home or Self Retirement documented in this encounter ED Notes * Gabriella Campbell PA-C - 10/09/2017 7:24 PM EDT Chief Complaint Patient presents with ??? Hip Pain right hip pain after steping of of a stair wrong ??? Back Pain right sided CPTA: none Patient is a 37-year-old female who presents to the emergency department for evaluation of right low back pain. Patient states her back pain began about 4 or 4:30 this afternoon. She states that she stepped awkwardly off of a stair twisting her right low back. Patient states that she felt pain in her right low back. She states that she feels pulling and tightness around her right side. She statesthat earlier this evening after the pain started she felt some popping in that area while taking a deep breath. Patient denies pain radiating into her abdomen chest or extremities. No nodes or tingling in her extremities. No saddle anesthesia. No dysuria hematuria or frequency. Patient denies history of previous back problems. Patient History Allergies Allergen Reactions ??? Latex [...] needed for Pain forup to 12 doses. 10/09/17 Herfel, Anderson Huggins MD Past Medical History: Past Medical History: [...] old. Review of Systems Review of Systems All other systems reviewed and are negative. Physical Exam Blood pressure 135/81, pulse 71, temperature 98.3 ??F (36.8 ??C), temperature source Oral, resp. rate 16, SpO2 100 %. Physical Exam Constitutional: She is oriented to person, place, and time. She appears well- developed and well-nourished. No distress. HENT: Head: Normocephalic and atraumatic. Eyes: Conjunctivae and EOM are normal. Pupils are equal, round, and reactive to light. Neck: Normal range of motion. Neck supple. Cardiovascular: Normal rate, regular rhythm and normal heart sounds. Pulmonary/Chest: Effort normal and breath sounds normal. No respiratory distress. Abdominal: Soft. Bowel sounds are normal. There is no tenderness. Abdomen soft and nontender. No CVA tenderness. Musculoskeletal: Lumbar back: She exhibits tenderness. She exhibits normal range of motion, no swelling and normal pulse. There is no instability or step-off with palpation through the lumbar midline. There is no midline tenderness. Patient is tender she palpation in the right lumbar paraspinous musculature. Patient feels pulling with flexion and lateral rotation. Neurological: She is alert and oriented to person, place, and time. She has normal strength. No sensory deficit. Gait normal. Reflex Scores: Patellar reflexes are 2+ on the right side and 2+ on the left side. Achilles reflexes are 2+ on the right side and 2+ on the left side. Straight leg raise is negative. Patient is ambulatory. Skin: Skin is warm and dry. Psychiatric: She has a normal mood and affect. Her behavior is normal. Nursing note and vitals reviewed. Procedures Radiology/EKG/Labs: None indicated ED Course: Appropriate laboratory and radiology studies reviewed Patient was seen and evaluated in the emergency Department. Strength exam consistent with lumbar muscle strain. Patient states that this does not feel similar to her previous kidney stones. She has no signs or symptoms concerning for kidney stone or urinary tract infection. She's had no trauma there for radiology studies not indicated. Discussed with the patient that I would start her on a musclerelaxant as needed for muscle pain and spasm. Tylenol recommended for pain. She is to follow-up with her primary care physician in 2 days if not improving. She may take Tylenol [id number] for pain. Advised to return to the emergency department for any worsening or changing symptoms such as inc reased pain, pain radiating into chest abdomen or extremities, numbness or tingling in extremities,urinary symptoms, fever or other concerns. ED Clinical Impression: 1. Strain of lumbar region, initial encounter Critical Care time Condition at Discharge/Transfer from Department: Stable This chart was completed using voice recognition technology and may contain unintended errors Gabriella Campbell PA-C 10/09/[id number] Cosigned by Anderson Chery MD at 10/09/2017 11:11 PM EDT Associated attestation - Anderson Chery MD - 10/09/2017 11:11 PM EDT I have reviewed the chief complaint and history of present illness and review of systems as well asthe past medical/social/family history sections for this patient. I have participated in the care of this patient. I have reviewed the pertinent clinical information including physical exam, labs, radiographic studies and the plan. This patient was seen in coordination with PA/REGULATED PROGRAM MANAGER. This chart was completed using voice recognition technology and may contain unintended errors documented in this encounter Plan of Treatment Upcoming Encounters Date Type Department Care Team (Late st Contact Info) Description 04/24/2024 10:45 AM EST Clinical Support [facility] [address] [place] [address] documented as of this encounter Goals Goal Patient Goal Type Associated Problems Recent Progress Patient-Stated? Author Maintain a healthy diet, exercise regularly and maintain an ideal body weight General No Thea Rubio MD Stay Tobacco Free Lifestyle Thea Hickman MD documented as of this encounter Visit Diagnoses Diagnosis Strain of lumbar region, initial encounter- Primary documented in this encounter Additional Health Concerns Assessment Noted Time PHQ-9 Depression Total Score: 2 10/07/19 18 8:00 AM EDT PHQ-2 Depression Total Score: 2 10/07/19 18 8:00 AM EDT documented as of this encounter Care Teams Yard Rigger Relationship Specialty Start Date End Date Thea Rubio MD PCP - General Family Medicine 09/13/14 07/16/22 documented as of this encounter
--- OUTSIDE RECORDS SUMMARY | 2024-03-14 18:21 | XMS_ITS | Encounter Summary ---
Author Organization [place] [address] Care Team Providers Care Large Animal Husbandry Technician Name Role Phone Thea Rubio MD Primary Care Provider [phone]- [phone] Caty Porter RN Unavailable [phone] Reason for Visit * Reason Onset Date Comments Care Management - Chart Review 07/11/2017 Encounter Details Date Type Department Care Team (Late Contact Info) Description 07/11/2017 Patient Outreach [facility] [address] [place] [address] Lino Castro, RN Care Management - Chart Review Social History [...] as of this encounter Progress Notes * Lino Castro RN - 07/11/2017 8:18 AM EDT Triage reviewed chart, pt appropriate for Level 2/HCA to review. Diagnosis of New anticoag documented in this encounter Plan of Treatment Upcoming Encounters Date Type Department Care Team (Late st Contact Info) Description 04/24/2024 10:45 AM EST Clinical Support [facility] [address] [place] [address] documented as of this encounter Goals Goal Patient Goal Type Associated Problems Recent Progress Patient-Stated? Author Maintain a healthy diet, exercise regularly and maintain an ideal body weight General No Thea Rubio MD Stay Tobacco Free Lifestyle No Thea Rubio MD documented as of this encounter Visit Diagnoses Not on filedocumented in this encounter Care Teams Large Animal Husbandry Technician Relationship Specialty Start Date End Date Thea Rubio MD PCP - General Family Medicine 09/13/14 07/16/22 Caty Porter RN [address] [place] [address] [facility] Registered Nurse 07/11/17 07/11/17 documented as of this encounter
--- OUTSIDE RECORDS SUMMARY | 2024-03-14 18:21 | XMS_ITS | Encounter Summary ---
Author Organization [place] [address] Care Team Providers Care Canal Driver Name Role Phone Thea Rubio MD Primary Care Provider +1- [phone] Reason for Visit * Reason Comments Emesis Pt ambulated to [facility] ge w/ c/o vomiting since this AM. CPTA: none Encounter Details Date Type Department Care Team (Late st Contact Info) Description 10/13/2017 9:05 PM EDT - 10/13/2017 11:11 PM EDT Emergency [facility] [address] [place] [id number] Haider Forte MD [address] [place] [address] [place] [address] Non-intractable vomiting with nausea, unspecified vomiting type (Primary Dx) Discharge Disposition: Home or [...] Sign Reading Time Taken Comments Blood Pressure 123/71 10/13/2017 11:00 PM EDT Pulse 72 10/13/2017 8:53 PM EDT Temperature 36.8 ??C (98.3 ??F) 10/13/2017 8:53 PM ED T Respiratory Rate 16 10/13/2017 8:53 PM EDT Oxygen Saturation 99% 10/13/2017 11:00 PM EDT Inhaled Oxygen Concentration - - Weight 59 kg (130 lb) 10/13/2017 8:53 PM EDT Height - - Body Mass Index 21.63 10/06/2017 8:50 AM EDT documented in this encounter Discharge Instructions * Attachments The following attachments cannot be sent through Care Everywhere. * Nausea and Vomiting Adult (Kazakh) documented in this encounter Medications at Time of Discharge promethazine (PHENERGAN) 25 mg Oral Tablet Take 1 Tab by mouth 3 times daily as needed for Nausea for up to 30 days. 10 Tab 10/13/2017 11/12/2017 documented as of this encounter Ordered Prescriptions Prescription Sig Dispense Quantity Refills Last Filled Start Date End Date promethazine (PHENERGAN) 25 mg Oral Tablet Take 1 Tab by mouth 3 times daily as needed for Nausea for up to 30 days. 10 Tab 10/13/2017 11/12/2017 documented in this encounter Discharge Disposition Disposition Code Departure Means Destination Home or Self Usp documented in this encounter ED Notes * Haider Forte MD - 10/13/2017 8:50 PM EDT CHIEF COMPLAINT Chief Complaint Patient presents with ??? Emesis Pt ambulated to triage w/ c/o vomiting since this AM. CPTA: none HPI Gardenia Childress is a 37 y.o. female who presents Complaining of nausea and vomiting. She denies any abdominal pain with it. She denies fevers, chills or diarrhea. She is not aware of anything she may have ate or drank that could've caused food poisoning. She denies any recent travel. She did not haveany hematemesis. 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 Shedenies vaginal bleeding or vaginal discharge and dysuria. REVIEW OF SYSTEMS Constitutional: no fever, ENT: No complaint of sore throat cardiovascular: no chest pain, syncope Respiratory: no difficulty breathing or cough, Gastrointestinal: no abdominal pain or diarrhea, Genitourinary: patient denies dysuria, Skin: the patient has not had a rash, Remainder of Review of systems reviewed and otherwise negative. PAST MEDICAL HISTORY Past Medical [...] causes head aneurysms. SOCIAL HISTORY Social History Social History ??? Marital status: [...] ??? None Social History Narrative ??? None SURGICAL HISTORY Past Surgical History: Procedure Laterality Date ??? ABDOMEN SURGERY as , with CCX, Appy for bile duct ??? ABDOMINAL EXPLORATION SURGERY 11/07/2016 [facility] Deborah Parker MD, for biliary stenosis ??? APPENDECTOMY couple mos old ??? ASD REPAIR 06/2017 ??? CHOLECYSTECTOMY couple mos old. Infant CURRENT MEDICATIONS No current facility-administered medications for this encounter. Current Outpatient Prescriptions: ??? aspirin 81 mg [...] day., Disp: 30 Tab, Rfl: 2 ??? methocarbamol (ROBAXIN) 750 mg Oral Tablet, Take 1 Tab by mouth 3 times daily as needed for Pain for up to 12 doses., Disp: 12 Tab, Rfl: 0 ??? norethindrone-ethinyl estradiol (ORTHO-NOVUM) 0.5/0.75/1 mg- 35 mcg Oral Tablet, Take 1 Tab by mouth daily., Disp: 28 Tab, Rfl: 3 ALLERGIES Allergies Allergen Reactions ??? Latex Rash ??? Morphine Nausea And Vomiting PHYSICAL EXAM VITAL SIGNS: BP 127/77 (BP Location: Left arm, Patient Position: Sitting) Pulse 72 Temp 98.3 ??F (36.8 ??C) (Oral) Resp 16 Wt 130 lb (59 kg) LMP 10/06/2017 SpO2 100% BMI 21.63 kg/m?? Constitutional: Well developed, Well nourished, Non-toxic appearance. HENT: Normocephalic, Atraumatic, Bilateral external ears normal, Oropharynx moist, No oral exudates, Nose normal. Eyes: PERRLA, EOMI, Conjunctiva normal, No discharge. Neck: Normal range of motion, No tenderness, Supple, No stridor. Cardiovascular: Normal heart rate, Normal rhythm, No murmurs, No rubs, No gallops. Thorax & Lungs: Normal breath sounds, No respiratory distress, No wheezing, No chest tenderness. Abdomen: Bowel sounds normal, Soft, No tenderness, No masses, No pulsatile masses. Well-healed surgical scar running horizontally across the epigastric area Skin: Warm, Dry, No erythema, No rash. Back: Grossly normal Genitalia: Deferred Rectal: Deferred Extremities: No cyanosis, No clubbing, Intact distal pulses, No edema Musculoskeletal: Good range of motion in all major joints. No tenderness to palpation, No major deformities noted. Neurologic: Alert, speech is normal, no focal deficits, Psychiatric: Affect normal, well kempt appearance, intellect appears WNL In cases where narcotics are prescribed, BLUE report was obtained, reviewed, and made part of record. After examining available information, and risks of prescribing or dispensing controlled substances was explained to the patient (including non-treatment or other treatment), it is considered medically appropriate to administer _narcotics as appropriate__ If a controlled substance was prescribed I discussed the risks and benefits of the use of the controlled substances with the patient, including the risk of tolerance and drug dependence. Also discussed not to work, drive, or make any legal decisions while taking a controlled substance. Pt verbalizes understanding. RADIOLOGY: The images were directly interpreted by myself, and the radiologist reading is none Labs were reviewed and include Labs Reviewed CBC WITH DIFF - Abnormal; Notable for the following: Result Value Hgb 11.9 (*) MCV 79.5 (*) MCH 26.4 (*) All other components within normal limits LIPASE LEVEL - Normal COMPREHENSIVE METABOLIC PANEL HCG QUALITATIVE Narrative: Ingestion of abimael doses of biotin (>5 mg/day) taken within 8 hours of drawing blood sample can interfere with this immunoassay test. Procedures: none CONSULTATION: none CRITICAL CARE: none ED COURSE: unremarkable MEDICAL DECISION MAKING: Vomiting, unclear etiology, the patient is not she denies abdominal pain or abdominal exam is benign, The patient presents with abdominal pain. The patient is feeling better with a benign repeat examination. I do not believe at this time that the patient has an acute abdomen. Based on history, physical exam, risk factors and tests; my suspicion for bowel obstructi on, acute pancreatitis, abscess, perforated viscus, diverticulitis, cholecystitis, choledocholithiasis, appendicitis, abdominal aortic aneurysm, aortic dissection, mesenteric ischemia, gonadal torsion, incarcerated hernia, acute coronary syndrome is very low and I feel the patient can be managed asan outpatient with follow-up. Instructions have been given for the patient to return to the emergency department for worsening of the pain, high fevers, intractable vomiting or bleeding. FINAL IMPRESSION: 1. Vomiting 2. 3. Plan: The patient is believed to be medically stable and appropriate for outpatient treatment. In addition to the preprinted discharge instructions, verbal discharge instructions were communicated by myself to the patient and when appropriate to the patient's family members and/or caregivers and they were asked to return at any point in time if they felt concerned or certainly if any symptoms worsened or new symptoms developed. Portions of this note were generated using voice recognition software. Every effort was made to ensure the accuracy of senior quality assurance analyst, however some discrepancies may remain. This chart was completed using voice recognition technology and may contain unintended errors Haider Forte MD 10/13/17 2334 documented in this encounter Plan of Treatment [...] Priority Date/Time Associated Diagnosis Comments HCG QUALITATIVE STAT 10/13/2017 10:03 PM EDT CBC WITH DIFF STAT 10/13/2017 10:03 PM EDT LIPASE LEVEL STAT 10/13/2017 10:03 PM EDT COMPREHENSIVE METABOLIC PANEL STAT 10/13/2017 10:03 PM EDT documented in this encounter Results * HCG QUALITATIVE (10/13/2017 10:03 PM EDT) Pathologist [facility] HCG QUAL Negative 10/13/2017 10:24 PM EDT [facility] Blood VENOUS BLOOD / Unknown Venipuncture / Unknown 10/13/2017 10:03 PM EDT 10/13/2017 10:11 PM EDT Narrative [facility] - 10/13/2017 10:24 PM EDT Ingestion of abimael doses of biotin (>5 mg/day) taken within 8 hours of drawing blood sample can interfere with this immunoassay test. us Haider Forte MD CHEMISTRY ORDERABLES Final Result [facility] [address] [place] [address] * LIPASE LEVEL (10/13/2017 10:03 PM EDT) [facility] Lipase Lvl 19 13 - 60 IU/L 10/13/2017 10:23 PM EDT [facility] Blood VENOUS BLOOD / Unknown Venipuncture / Unknown 10/13/2017 10:03 PM EDT 10/13/2017 10:11 PM EDT us Haider Forte MD CHEMISTRY ORDERABLES Final Result [facility] [address] [place] [id number] * COMPREHENSIVE METABOLIC PANEL (10/13/2017 10:03 PM EDT) Sodium 141 136 - 145 mmol/L 10/13/2017 10:23 PM EDT [facility] Potassium 3.5 3.5 - 5.0 mmol/L 10/13/2017 10:23 PM EDT [facility] Chloride 101 98 - 107 mmol/L 10/13/2017 10:23 PM EDT [facility] Total CO2 25 22 - 29 mmol/L 10/13/2017 10:23 PM EDT [facility] Anion Gap 15 7 - 16 mmol/L 10/13/2017 10:23 PM EDT [facility] Calcium 9.1 8.6 - 10.2 mg/dL 10/13/2017 10:23 PM EDT [facility] Glucose Lvl 93 74 - 100 mg/dL 10/13/2017 10:23 PM EDT [facility] BUN 8 6 - 20 mg/dL 10/13/2017 10:23 PM EDT [facility] Creatinine 0.75 0.51 - 1.30 mg/dL 10/13/2017 10:23 PM EDT [facility] Albumin 4.2 3.5 - 5.2 gm/dL 10/13/2017 10:23 PM EDT [facility] Total Protein 7.2 6.4 - 8.3 gm/dL 10/13/2017 10:23 PM EDT [facility] Bili Total 0.5 0.1 - 1.3 mg/dL 10/13/2017 10:23 PM EDT [facility] ALT 9 <=41 IU/L 10/13/2017 10:23 PM EDT [facility] AST 14 <=40 IU/L 10/13/2017 10:23 PM EDT [facility] Alk Phos 53 35 - 104 IU/L 10/13/2017 10:23 PM EDT [facility] GFR Afr Am 119 mL/min/1.7 3 m2 10/13/2017 10:23 PM EDT [facility] GFR Non Afr Am 104 mL/min/1.7 3 m2 10/13/2017 10:23 PM T [facility] Comment: GFR Afr Am and GFR [...] VENOUS BLOOD / Unknown Venipuncture / Unknown 10/13/2017 10:03 PM EDT 10/13/2017 10:11 PM EDT us Haider Forte MD CHEMISTRY ORDERABLES Final Result [facility] [address] [place] [address] * (ABNORMAL) CBC WITH DIFF (10/13/2017 10:03 PM EDT) WBC 6.7 4.0 - 11.0 x10(3)/mcL 10/13/2017 10:07 PM EDT [facility] RBC 4.49 3.80 - 5.10 x10(6)/mcL 10/13/2017 10:07 PM EDT [facility] Hgb 11.9(L) 12.0 - 15.6 g/dL 10/13/2017 10:07 PM EDT [facility] Hct 35.7 35.7 - 45.9 % 10/13/2017 10:07 PM EDT [facility] MCV 79.5(L) 82.5 - 99.8 fL 10/13/2017 10:07 PM EDT [facility] MCH 26.4(L) 27.0 - 34.3 pg 10/13/2017 10:07 PM EDT [facility] MCHC 33.2 32.1 - 35.3 g/dL 10/13/2017 10:07 PM EDT [facility] RDW 14.3 11.5 - 15.0 % 10/13/2017 10:07 PM EDT [facility] Platelet 369 144 - 423 x10(3)/mcL 10/13/2017 10:07 PM EDT [facility] MPV 8.1 6.8 - 10.8 fL 10/13/2017 10:07 PM EDT [facility] Neut Percent 70.8 % 10/13/2017 10:07 PM EDT [facility] Lymph Percent 20.6 % 10/13/2017 10:07 PM EDT [facility] Rapides Percent 7.0 % 10/13/2017 10:07 PM EDT [facility] Eos Percent 1.1 % 10/13/2017 10:07 PM EDT [facility] Baso Percent 0.5 % 10/13/2017 10:07 PM EDT [facility] Neut # 4.7 1.8 - 7.7 x10(3)/mcL 10/13/2017 10:07 PM EDT [facility] Lymph # 1.4 0.6 - 4.8 x10(3)/[facility] 10/13/2017 10:07 PM EDT [facility] Rapides # 0.5 0.0 - 1.3 x10(3)/[facility] 10/13/2017 10:07 PM EDT [facility] Eos# 0.1 0.0 - 0.5 x10(3)/[facility] 10/13/2017 10:07 PM EDT [facility] Baso # 0.0 0.0 - 0.2 x10(3)/[facility] 10/13/2017 10:07 PM EDT [facility] Blood VENOUS BLOOD / Unknown Venipuncture / Unknown 10/13/2017 10:03 PM EDT 10/13/2017 10:04 PM EDT us Haider Forte MD HEMATOLOGY ORDERABLES Final Result Performing Organization Address City/State/[facility] [place] [address] documented in this encounter Visit Diagnoses Diagnosis Non-intractable vomiting with nausea, unspecified vomiting type- Primary documented in this encounter Administered Medications Inactive Administered Medications - up to 1 most recent administrations Medication Order MAR Action Action Date Dose Rate Site ondansetron (ZOFRAN) injection 4 mg 4 mg, Intravenous, ONCE, 1 dose, On Fri10/13/17 at 2145 Given 10/13/2017 10:02 PM EDT 4 mg sodium chloride 0.9 % 1,000 mL IV bolus Intravenous, ONCE, 1 dose, On Fri10/13/17 at 2145, at 983.6 mL/hr IV Started 10/13/2017 10:02 PM EDT 983.6 mL/hr documented in this encounter Active and Recently Administered Medications Times are shown in EDT. Scheduled Medication Order 10/11/2017 10/12/2017 10/13/2017 ondansetron (ZOFRAN) injection 4 mg (COMPLETED) 4 mg, Intravenous, ONCE, 1 dose, On Fri10/13/17 at 2145 2202 (Given - Provid er: Dawson Walters RN) sodium chloride 0.9 % 1,000 mL IV bolus (COMPLETED) Intravenous, ONCE, 1 dose, On 10/13/17 at 2145, at 983.6 mL/hr 2202 (IV Started - P rovider: Dawson Walters RN)2235 (Stopped - Provider: Dawson Waltesr RN) documented in this encounter Additional Health Concerns Assessment Noted Time PHQ-9 Depression Total Score: 2 10/07/19 18 8:00 AM EDT PHQ-2 Depression Total Score: 2 10/07/19 18 8:00 AM EDT documented as of this encounter Care Teams Canal Driver Relationship Specialty Start Date End Date Thea Rubio MD PCP - General Family Medicine 09/13/14 07/16/22 documented as of this encounter
--- OUTSIDE RECORDS SUMMARY | 2024-03-14 18:21 | XMS_ITS | Encounter Summary ---
Author Organization [facility] [place] [address] Care Team Providers Care Vp Public Relations Name Role Phone Thea Rubio MD Primary Care Provider +1- [phone] Reason for Visit * Reason Comments Medication Refill Encounter Details Date Type Department Care Team (Late st Contact Info) Description 07/29/2017 Refill [facility] [address] [place] [address] Thea Rubio MD [address] [place], [place] [id number] Medication Refill Social History Tobacco Use Types [...] Refills Last Filled Start Date End Date topiramate (TOPAMAX) 50 mg Oral TabletIndications: Migraine without aura and without status migrainosus, not intractable TAKE ONE TABLET BY MOUTH TWICE A DAY (MAY ADD EXTRA PILL AT NIGHT WHEN HAVING MIGRAINE FLARES) 270 Tab 1 07/30/2017 8 documented in this encounter Plan of Treatment Upcoming Encounters Date Type Department Care Team (Late st Contact Info) Description 04/24/2024 10:45 AM EST Clinical Support [facility] [address] [facility] [place] [place] [address] documented as of this encounter Goals Goal Patient Goal Type Associated Problems Recent Progress Patient-Stated? Author Maintain a healthy diet, exercise regularly and maintain an ideal body weight General No Thea Rubio MD Stay Tobacco Free Lifestyle No Thea Rubio MD documented as of this encounter Visit Diagnoses Diagnosis Migraine without aura and without status migrainosus, not intractable Migraine without aura, without mention of intractable migraine without mention of status migrainosus documented in this encounter Discontinued Medications Medication Sig Discontinue Reason Start Date End Da te topiramate (TOPAMAX) 50 mg Oral TabletIndications:Migrai ne without aura and without status migrainosus, not intractable TAKE ONE TABLET BY MOUTH TWICE A DAY. MAY ADD EXTRA PILL AT NIGHT WHEN HAVING MIGRAINE FLARES. Reorder 10/18/2016 07/29/2017 documented as of this encounter Care Teams Vp Public Relations Relationship Specialty Start Date End Date Thea Rubio MD PCP - General Family Medicine 09/13/14 07/16/22 documented as of this encounter
--- OUTSIDE RECORDS SUMMARY | 2024-03-14 18:21 | XMS_ITS | Encounter Summary ---
Author Organization [place] [address] Care Team Providers Care Alligator Hunter Name Role Phone Thea Rubio MD Primary Care Provider +1- [phone] Reason for Visit * Reason Comments Hospital Follow Up [facility], [place] 04/23/17 * Consultation (Routine) - Closed Specialty Diagnoses / Procedures Referred By Amalia tuttle Referred To Contact Internal Medicine-Cardiovascular Disease / Cardiology Diagnoses [facility] [place] 04/23/17 Procedures OFFICE VISIT Thea Rubio MD Phone: tel: fax: Migue Sidhu MD [address] [place] [address] [place] [address] Phone: tel: fax: Referral ID Status Reason Start Date Expiration Date Visits Re quested Visits Authorized [id number] Closed 05/05/2017 05/05/2018 1 99 Encounter Details Date Type Department Care Team (Late st Contact Info) Description 05/05/2017 8:30 AM EST Office Visit [facility] [address] [place] [address] Migue Sidhu MD [address] [place] [address] [place] [address] Chest pain, unspecified type (Primary Dx); Celiac artery stenosis (HCC); ASD (atrial septal defect) Social History Tobacco [...] Reading Time Taken Comments Blood Pressure 110/68 05/05/2017 8:25 AM EST Pulse 72 05/05/2017 8:25 AM EST Temperature - - Respiratory Rate - - Oxygen Saturation - - Inhaled Oxygen Concentration - - Weight 64.4 kg (142 lb) 05/05/2017 8:25 AM EST Height 166.4 cm (5' 5.5 ) 05/05/2017 8:25 AM EST Body Mass Index 23.27 05/05/2017 8:25 AM EST documented in this encounter Progress Notes * Migue Sidhu MD - 05/05/2017 8:30 AM EST Cardiology Follow Up Visit Name: Gardenia Childress : 1980 Referring Physician Thea Rubio MD Reason for Follow-up Chest Brennan, ASD Chief Complaint Patient presents with ??? Hospital Follow Up [place], [place] 04/23/17 HPI 37 y.o. female is seen [...] s/p Amber Procedure (hepatoportoenterostomy) as an - told she could not take asa [...] RTC 1-2 months. documented in this encounter Miscellaneous Notes * Addendum Note - Migue Sidhu MD - 05/05/2017 8:30 AM ESTAddended by: MIGUE SIDHU on: 05/05/2017 12:44 PM Modules accepted: Orders, SmartSet documented in this encounter Plan of Treatment Upcoming Encounters Date Type Department Care Team (Late st Contact Info) Description 04/24/2024 10:45 AM EST Clinical Support [facility] [address] [place] [address] documented as of this encounter Goals Goal Patient Goal Type Associated Problems Recent Progress Patient-Stated? 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
--- OUTSIDE RECORDS SUMMARY | 2024-03-14 18:21 | XMS_ITS | Encounter Summary ---
Author Organization [place] [address] Care Team Providers Care Director Group Sales Name Role Phone Thea Rubio MD Primary Care Provider +1- [phone] Reason for Referral * Echo (Routine) - Closed Specialty Diagnoses / Procedures Referred By Amalia tuttle Referred To Contact Radiology Diagnoses Ostium secundum type atrial septal defect Procedures EC ECHOCARDIOGRAM COMPLETE W DOPPLER AND COLOR FLOW MAPPING Genaro Ibarra MD Phone: tel: fax: [facility] [place] [address] Phone: tel: fax: Referral ID Status Reason Start Date Expiration Date Visits Re quested Visits Authorized [id number] Closed 06/25/2017 06/26/2019 1 1 Reason for Visit * Auth/Cert/Inpt Specialty Diagnoses / Procedures Referred By Contac t Referred To Contact Diagnoses Atrial septal defect Atrial septal defect [Q21.1] Procedures MS PERC CLOS,RIK INTERATRIAL COMMUN W/IMPL ATRIAL SEPTAL DEFECT CLOSURE Referral ID Status Reason Start Date Expiration Date Visits Re quested Visits Authorized [id number] 1 1 Encounter Details Date Type Department Care Team (Latest Contact Info) Description 07/09/2017 12:47 PM EDT - 07/09/2017 11:59 PM EDT Hospital Encounter EDG ECHO [facility] [place] [address] Genaro Ibarra MD [address] [place], [place] [id number] Ostium secundum type atrial septal defect Discharge Disposition: Home or Self [...] Description 04/24/2024 10:45 AM EST Clinical Support [address] [address] documented as of this encounter Goals [...] W DOPPLER AND COLOR FLOW MAPPING Routine 07/09/2017 2:40 PM EDT Ostium secundum type atrial septal defect documented in this encounter Results * EC ECHOCARDIOGRAM COMPLETE W DOPPLER AND COLOR FLOW MAPPING (07/09/2017 2:40 PM EDT) Anatomical Region Laterality Modality Electrocardiogra phy 07/09/2017 1:00 PM EDT Impressions 07/10/2017 10:33 AM EDT ?Conclusions: ?Itracardiac echo used to assist closure of secundum ASD Narrative Procedure Note Genaro Ibarra MD - 07/10/2017 IMPRESSION Conclusions: Itracardiac echo used to assist closure of secundum ASD us Genaro Ibarra MD IMG ECHO ORDERABLES Final Resu lt documented in this encounter Visit Diagnoses Diagnosis Ostium secundum type atrial septal defect documented in this encounter Orders Medications Ordered That Jair ht Not Have Been Administered Count Last Ordered Date First Ordered Date 0.9 % NaCl infusion 1 07/08/2017 aspirin tablet 325 mg 1 07/08/2017 ceFAZolin (ANCEF) IVPB 1 g 1 07/08/2017 documented in this encounter Care Teams Director Group Sales Relationship Specialty Start Date End Date Thea Rubio MD PCP - General Family Medicine 09/13/14 07/16/22 documented as of this encounter
--- OUTSIDE RECORDS SUMMARY | 2024-03-14 18:22 | XMS_ITS | Encounter Summary ---
Author Organization [place] [address] Care Team Providers Care Case Coordinator Name Role Phone Thea Rubio MD Primary Care Provider +1- [phone] Reason for Visit * Physical Therapy (Routine) - Closed Specialty Diagnoses / Procedures Referred By Contstephanie t Referred To Contact Physical Therapy Diagnoses Right knee pain, unspecified chronicity Thea Rubio MD Phone: tel: fax: [facility] Physical Therapy [address] [address] Phone: tel: fax: Referral ID Status Reason Start Date Expiration Date V isits Requested Visits Authorized [id number] Closed Specialty Services Required 12/26/2015 12/25/2016 30 30 Encounter Details Date Type Department Care Team (Latest Contact Info) Description 01/01/2016 7:55 AM EDT - 01/01/2016 11:59 PM EDT Hospital Encounter [facility] [place] [place] [address] Kris Barboza, DANIELLE Discharge Disposition: Home or Self Care Social History Tobacco Use Types Packs/Day Years Used Date Smoking Tobacco: Former Cigarettes 0.5 0.2 1 - 04/21/1994 Smokeless Tobacco: Never Alcohol Use Standard Drinks/Week Comments No 0 (1 standard drink = 0.6 oz pur e alcohol) 2-3 drink every 3-4 mos. Sexually Active Control Partners Comments Yes Male Comments No Sex and Gender Information Value Date Recorded Sex Assigned at Not on file Legal Sex Female 1:46 PM EDT Gender Identity Not on file Sexual Orientation Not on file documented as of this encounter Discharge Disposition Disposition Code Departure Means Destination Home or Self Care documented in this encounter Miscellaneous Notes * Plan of Care - Kris Barboza, PT - 01/01/2016 8:01 AM EDT Images from the original note were not included. Physical Therapy Knee Evaluation 01/01/2016 Visit # /Insurance : 1 [place] Medicaid Onset Date: 12/01/14 Diagnosis: right knee Precautions: n/a Follow Up: Joanne , n/a Subjective: Gardenia Childress is a 35 y.o., female, referred by Dr. Rubio . Primary complaint: Pt was walking back to her area of her job from the bathroom and felt a pull in the back of her knee. (did this 2x in about 2 days just walking from the bathroom to her workstation) Same day as initial muscle type pull she also bumped her right knee into a speaker at home so thathurt the front part of the knee. Still has bruise on right lateral inferior part of the patella. Since pain wasn't going away went to the doctor, got Xray and Naproxen Pain scale: 1/10 Location: Right lateral quads (not the back of the knee) Type: ache , sometimes sharp Pain increases when: squating; long days at work Pain decreases when: sits after work, rest Sensation/Neurovascular: Pt feels like she does have some numbness in her feet every now and then that started with this muscle type pull Diagnostic Tests: Xrays: normal Have you received any Speech or Physical therapy this year? No Are you currently receiving any Home Health services? No Any problems with speech, communication, memory? No Barriers to learning? No Recent falls? 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 Biliary atresia ??? Migraines Past Surgical History Procedure Laterality Date ??? Abdomen surgery as , with CCX, Appy for bile duct ??? Appendectomy couple mos old ??? Cholecystectomy couple mos old. Current Outpatient Prescriptions Medication Sig Dispense Refill ??? albuterol (PROVENTIL HFA;VENTOLIN HFA) 90 mcg/actuation Inhl HFA Aerosol Inhaler Inhale 1-2 Puffs into the lungs every 6 hours as needed for Wheezing. 1 Inhaler 0 ??? dicyclomine (BENTYL) 10 mg Oral Capsule Take 10 mg by mouth 4 times daily as needed (for crampsafter menses). ??? naproxen (NAPROSYN) 500 mg Oral Tablet Take 1 Tab by mouth 2 times daily with meals as needed for Pain. 60 Tab 0 ??? SUMAtriptan (IMITREX) 25 mg tablet Take by mouth as needed for Migraine. ??? topiramate (TOPAMAX) 50 mg Oral Tablet Take 1 Tab by mouth 2 times daily. May add extra pill atnight when having migraine flares. 270 Tab 1 No current facility-administered medications for this encounter. Allergies: Aspirin and Morphine Patient stated goals: What are her limitations to her ADLs Observation: Body Composition: Endomorphic Assistive Devices: none Bracing: n/a Skin integrity: Intact Posture: Normal Gait: normal Patellar Position: Neutral Patellar Tracking: neutral Objective: FOTO: Patient Score: 64 Predicted Score: 45 Predicted Change: 10 Patient Specific Functional Scale (PSFS): Patient rates their ability to perform specific functional tasks . 1. Patient will be able to walk Current status: 12/29 2. Patient will be able to sleep Current status: 09/28 3. Patient will be able to squat Current status: 08/28 Palpation: mild soreness at lateral patella femoral joint and knot found with tightness in right vastus lateralis Pelvic Symmetry: n/a Leg Length: n/a Girth Measurements: Unaffected Affected 4 above the joint line n/a n/a Joint line n/a n/a 4 below the joint line n/a n/a AFFECTED knee AROM: 0-125* full squat Flexibility: Hamstring (90/90) 10* degrees from straight UNAFFECTED knee AROM: 0-125* full squat Flexibility: Hamstring (90/90) dna degrees from straight Knee Reference Range 10-0-135 degrees HS Flexibility Ref. Range (90*/90*) 0-20* from straight IPSILATERAL Hip AROM: grossly WFL IPSILATERAL Ankle AROM: grossly WFL Patellar Mobility: n/a Strength: AFFECTED Knee: Extension (quadriceps; L3-4): 4-/5 sore Flex (Hamstring): 4/5 Hip Flexion (L2 - 3): 4-/5 Hip Extension (Gluteal Muscles): 4/5 Hip Abduction: 4-/5 Hip Adduction: N/A Anterior Tibialis (L5): 5/5 Gastroc (S1-2): 5/5 UNAffected Knee strength: quads: 4,4+ All others the same as above Neuro Screen: SLR: n/a Light touch to dermatomes: n/a DTRs: Quadriceps (L3-4): n/a Gastrocnemius (S1): N/A Coordination: Heel to Centeno: N/A Balance: Timed Single Leg Stance: 20 sec no issues bilaterally Special Tests Varus Stress Test: Negative Valgus Stress Test: Negative Squat Test/Standing Dean's: Negative Also did functional step up / hold with general quad soreness but no specific spike in pain or deficit in function Quad stretch in standing felt pulling through the quads and soreness mimicking pain in vastus lateralis UNAFFECTED: N/A Treatment today included: Evaluation, HEP Instruction and x 25 min to review 'do's and don't's' forhome and community ADLs and some pt education on ergonomic changes of her work tasks when squattingis needed (use pad and kneel on left knee taking right knee out of the movement equation) pt understood verbally; also use of ice and knee sleeve as needed might be helpful for work tasks and then toremove at home Response to Treatment: No change in pain or function Response to HEP Instruction/Patient Education: Verbalized understanding, Returned demonstration Assessment: Gardenia Childress presents with signs and symptoms consistent with right quadriceps strain. Functional Impairments and Activity Limitations: squatting Patient presents as a good rehabilitation candidate. Goals set for 3 weeks. Functional Goals: 1. Patient to demonstrate independence with HEP. 2. Patient's FOTO score will increase to 69 noting an increase in overall function 3. 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 Pt to demo ability to perform step up hold x 3 sec on 9 stool x 8 reps with 2/10 discomfort or less Plan: Patient will be seen 1 times per week for 3 weeks. Treatment to include: Therapeutic exercise, Neuromuscular re-education, Manual soft tissue and/or joint mobilization, Patient education and Functional activity training Time In: 8:03 TimeOut: 8:48 Signed: Kris Barboza, PT Date: 01/01/2016 Gardenia L Childress : 1980 [id number] documented in this encounter Plan of Treatment Upcoming Encounters Date Type Department Care Team (Late st Contact Info) Description 04/24/2024 10:45 AM EST Clinical Support [address] [id number] Scheduled Referrals Name Type Priority Associated Diagnoses Orde r Schedule AMB REFERRAL TO PHYSICAL THERAPY Outpatient Referral Routine Right knee pain, unspecified chronicity Ordered: 12/26/2015 documented as of this encounter Visit Diagnoses Not on filedocumented in this encounter Care Teams Case Coordinator Relationship Specialty Start Date End Date Thea Rubio MD PCP - General Family Medicine 09/13/14 07/16/22 documented as of this encounter
--- OUTSIDE RECORDS SUMMARY | 2024-03-14 18:22 | XMS_ITS | Encounter Summary ---
Author Organization [place] [address] Care Team Providers Care Transmission Calibration Engineer Name Role Phone Thea Rubio MD Primary Care Provider +1- [phone] Reason for Visit * Reason Onset Date Comments Other 10/24/2015 Encounter Details Date Type Department Care Team (Late st Contact Info) Description 10/24/2015 Telephone [facility] [address] [place] [address] Thea Rubio MD [address] [place] [address] [id number] Other Social History Tobacco Use Types Packs/Day [...] Telephone Encounter - Susan Oliveira RMA - 10/24/2015 11:55 AM EDT Pt aware of appt tomorrow unable to come in today due to work * Telephone Encounter - Susan Oliveira RMA - 10/24/2015 9:52 AM EDT [facility] FOR AN APPT * Telephone Encounter - Thea Rubio MD - 10/24/2015 9:43 AM EDT Yes, will see today * Telephone Encounter - Antonietta Richards - 10/24/2015 9:07 AM EDT Over the weekend the patients found a lump in her breast and she wants to know if you want to see her and check it. documented in this encounter Plan of Treatment Upcoming Encounters Date Type Department Care Team (Late st Contact Info) Description 04/24/2024 10:45 AM EST Clinical Support [facility] [address] [place] [address] documented as of this encounter Visit Diagnoses Not on filedocumented in this encounter Care Teams Transmission Calibration Engineer Relationship Specialty Start Date End Date Thea Rubio MD PCP - General Family Medicine 09/13/14 07/16/22 documented as of this encounter
--- OUTSIDE RECORDS SUMMARY | 2024-03-14 18:22 | XMS_ITS | Encounter Summary ---
Author Organization [place] [address] Care Team Providers Care Inpatient Services Director Name Role Phone Thea Rubio MD Primary Care Provider +1- [phone] Reason for Visit * Reason Onset Date Comments Hospital Follow Up 04/23/2017 Encounter Details Date Type Department Care Team (Late st Contact Info) Description 04/23/2017 Telephone [facility] [address] [place] [address] Migue Anne MD [address] [place] [address] Hospital Follow Up Social History Tobacco Use [...] Miscellaneous Notes * Telephone Encounter - Heather Michelle RMA - 04/23/2017 11:46 AM EST Scheduled 05/05/16 with * Telephone Encounter - Ena Stephen, Clerical Staff - 04/23/2017 10:01 AM EST Pt released from hospital today-needs followup in 2 weeks.Pt would like 1.15.18 if available. documented in this encounter Plan of Treatment Upcoming Encounters Date Type Department Care Team (Late st Contact Info) Description 04/24/2024 10:45 AM EST Clinical Support [facility] [address] [place] [phone] documented as of this encounter Goals Goal Patient Goal Type Associated Problems Recent Progress Patient-Stated? Author Maintain a healthy diet, exercise regularly and maintain an ideal body weight General No Thea Rubio MD Stay Tobacco Free Lifestyle No Thea Rubio MD documented as of this encounter Visit Diagnoses Not on filedocumented in this encounter Care Teams Inpatient Services Director Relationship Specialty Start Date End Date Thea Rubio MD PCP - General Family Medicine 09/13/14 07/16/22 documented as of this encounter
--- OUTSIDE RECORDS SUMMARY | 2024-03-14 18:22 | XMS_ITS | Encounter Summary ---
Author [place] [address] Care Team Providers Care Workers Compensation Claims Supervisor Name Role Phone Thea Rubio MD Primary Care Provider +1- [phone] Encounter Details Date Type Department Care Team (Latest Contact Info) Description 09/26/2015 8:55 PM EDT - 09/26/2015 11:59 PM EDT Hospital Encounter [facility] [place] [address] Visit for gynecologic examination Discharge Disposition: Home or Self Care Social [...] Progress Notes * Thea Rubio MD - 09/28/2015 12:10 PM EDTQuick Note: Please tell pt Pap is NL. documented in this encounter Plan of Treatment Upcoming Encounters Date Type Department Care Team (Late st Contact Info) Description 04/24/2024 10:45 AM EST Clinical Support [facility] [address] [place] [address] documented as of this encounter Procedures Procedure Name Priority Date/Time Associated Diagnosis Comments POWER PRESS OPERATOR CYTOLOGY REPORT Routine 09/26/2015 8 :55 PM EDT documented in this encounter Results * POWER PRESS OPERATOR CYTOLOGY REPORT (09/26/2015 8:55 PM EDT) Magnetic Prospecting Supervisor Cytology Report ? PATIENT NAME:ISHAN CHILDRESS ? Magnetic Prospecting Supervisor Cytology Report ? Accession Number ?Collected Date/Time ? Received Date/Time ? [id number] ? 09/26/15 20:55 EDT ?09/27/15 09:07 EDT ? GY Specimen Source ? Specimen Vag/Cerv/Endocx?: Cervical ? Statement of Adequacy ? Satisfactory for Evaluation. ??Transformation Zone Absent. ? Diagnosis ? NEGATIVE FOR INTRAEPITHELIAL LESION OR MALIGNANCY. ? Comment ? This case was not successfully Imaged due to technical reasons and was ? manually rescreened. ? The Pap Smear is a screening test that aids in the detection of cervical ? cancer and cancer precursors. ??Both false positive and false negative ? results can occur. ??The test should be used at regular intervals, and ? positive results should be confirmed before definitive ? therapy. ? Processed using the CashSentinel[employer] automated cytology screening device ? ([employer]). ? Acute Specialist: TS ?09/28/2015 ? Completed by: ??Magaly Rocha CT ?(Electronically signed by) ?09/28/2015 ?[facility] 09/26/2015 8:55 PM EDT us Thea Rubio MD PATHOLOGY ORDERABLES Final Result Performing Organization Address City/State/[facility] Co de Phone Number [facility] [address] [place] [address] documented in this encounter Visit Diagnoses Diagnosis Visit for gynecologic examination Routine gynecological examination documented in this encounter Orders Lab Orders Without Results Count Last Ordered D ate First Ordered Date POWER PRESS OPERATOR CYTOLOGY REQUEST (PAP ONLY) 1 6 documented in this encounter Care Teams Workers Compensation Claims Supervisor Relationship Specialty Start Date End Date Thea Rubio MD PCP - General Family Medicine 09/13/14 07/16/22 documented as of this encounter
--- OUTSIDE RECORDS SUMMARY | 2024-03-14 18:22 | XMS_ITS | Encounter Summary ---
Author Organization [place] [address] Care Team Providers Care Reservation Agent Name Role Phone Thea Rubio MD Primary Care Provider +1- [phone] Reason for Visit * Physical Therapy (Routine) - Closed Specialty Diagnoses / Procedures Referred By Contstephanie t Referred To Contact Physical Therapy Diagnoses Right knee pain, unspecified chronicity Thea Rubio MD Phone: tel: fax: [facility] Physical Therapy [address] [address] Phone: tel: fax: Referral ID Status Reason Start Date Expiration Date V isits Requested Visits Authorized [id number] Closed Specialty Services Required 12/26/2015 12/25/2016 30 30 Encounter Details Date Type Department Care Team (Latest Contact Info) Description 01/29/2016 3:30 PM EDT - 01/29/2016 11:59 PM EDT Hospital Encounter [facility] [place] [address] Meghan Garcia PTA Discharge Disposition: Home or Self Care Social [...] file documented as of this encounter Discharge Summaries * Meghan Garcia, MANAGER INDUSTRIAL - 01/29/2016 7:06 AM EDT [facility] Discharge/Treatment Report 01/29/2016 Gardenia Childress : 1980 Diagnosis: right knee pain Referring practitioner: Ethel Overton MD Date of initial PT visit: 01/01/16 Patient seen for 4 sessions Medication change: No Mental Status: Alert and Oriented Treatment consisted of: Therapeutic exercise Subjective: Pt notes 98% improved overall. Still feels it a bit with squatting. Objective/Treatment today: Rx Today: Total gym level 10 bilateral squats 20 reps ?? In open clinic: BLACK sidestepping 80 feet BLACK diagonal stepping 80 feet ?? At treadmill bar: BLACK hip flex, abd, ext 15 reps Step up and hold 3 second SLS stool 12 reps ?? Quad stretch 2 reps hold 20 seconds Squat, lift and sweet pickled fruit maker 30# crate carry 10 feet put on counter and then return to floor ?? Sitting: BLACK alternate LAQ 15 reps ?? In open clinic Walking lunges 40 feet with 1 UE assist Total gym level 8 single leg squats 15 reps ?? Pain: 0 ROM: 0-130* Strength: Knee ext 5, flex 4+, hip flex 5, abd 5, add 4 Function: Back to full duty at work and doing all the lifting and squatting needed for job duties, also doing all home and community ADL's FOTO: Intake: 64 Discharge: 99 Gait/Balance: Normal Assessment: Pt did well with PT. She met all goals and had increases in strength, ROM and function. HEP: Independent and compliant Goals Met: 1. Patient to demonstrate independence with HEP. 2. Patient's FOTO score will increase to 69 noting an increase in overall function 3. Pt to demo ability to properly squat at sweet pickled fruit maker 30# box and carry to counter and return box to floor x 2 reps with 2/10 discomfort or less 4. Pt to demo ability to perform step up hold x 3 sec on 9 stool x 8 reps with 2/10 discomfort or less Unmet: None Plan: Patient is currently discharged from outpatient physical therapy. Advice/Direction given to continue HEP. Meghan Garcia PTA Cosigned by Kris Barboza, PT at 01/30/2016 8:40 AM EDT documented in this encounter Discharge Disposition Disposition Code Departure Means Destination Home or Self Care documented in this encounter Plan of Treatment Upcoming Encounters Date Type Department Care Team (Late st Contact Info) Description 04/24/2024 10:45 AM EST Clinical Support [facility] [address] [place] [address] documented as of this encounter Visit Diagnoses Not on filedocumented in this encounter Care Teams Reservation Agent Relationship Specialty Start Date End Date Thea Rubio MD PCP - General Family Medicine 09/13/14 07/16/22 documented as of this encounter
--- OUTSIDE RECORDS SUMMARY | 2024-03-14 18:22 | XMS_ITS | Encounter Summary ---
Author Organization [place] [address] Care Team Providers Care Transportation Dispatcher Name Role Phone Thea Rubio MD Primary Care Provider +1- [phone] Reason for Visit * Physical Therapy (Routine) - Closed Specialty Diagnoses / Procedures Referred By Contstephanie t Referred To Contact Physical Therapy Diagnoses Right knee pain, unspecified chronicity Thea Rubio MD Phone: tel: fax: [facility] Physical Therapy [address] [address] Phone: tel: fax: Referral ID Status Reason Start Date Expiration Date V isits Requested Visits Authorized [id number] Closed Specialty Services Required 12/26/2015 12/25/2016 30 30 Encounter Details Date Type Department Care Team (Latest Contact Info) Description 01/08/2016 3:37 PM EDT - 01/08/2016 11:59 PM EDT Hospital Encounter [facility] [place] [address] Meghan Garcia PTA Discharge Disposition: Home or [...] documented in this encounter Progress Notes * Meghan Garcia PTA - 01/08/2016 7:45 AM EDT [facility] Physical Therapy Daily Progress Note 01/08/2016 Gardenia Childress : 1980 Diagnosis: Right knee pain Referring Practitioner: Ethel Overton MD Visit # 2 Onset Date: 12/01/14 Reassessment Date: 01/31/16 G-codes Due: N/A Next FOTO due: 01/31/16 Next MD visit: Nothing scheduled Precautions: None Med Changes: None Time In/Out: 1542/1613 Pain Scale: 0 Location: right knee(s) medial knee Type: sharp Subjective Exercises are going ok. At times still trying to lock up on her. HEP: Independent and Compliant Objective FOTO Eval: Patient Score: 64 FOTO Expected Score: 45 Anticipated Change: 10 Subsequent FOTO Scores (score and date): None yet Treatment (30 minutes therapeutic exercise) At [employer] bar: GREEN hip flex, abd, ext 15 reps GREEN sidestepping 80 feet GREEN diagonal stepping 60 feet Quad stretch 3 reps hold 20 seconds Step up and hold 3 second SLS on 6 step 10 reps Hooklying: Bridges 12 reps with 3 second hold Quad stretch off edge of mat by AUTOMOBILE UPHOLSTERY TRIM INSTALLER 3 reps hold 20 seconds Sitting: GREEN alternate LAQ 15 reps Total gym level 8 bilateral squats 15 reps with cues to keep knees apart At ballet bar: SLS 5 reps 10 second holds Education: Needs Assistance: Yes HEP additions Understood: Yes Assessment Pt did well with all above exercises. No increase in pain and did well with additions. Plan Continue PT: Advance as able Meghan Garcia PTA documented in this encounter Plan of Treatment Upcoming Encounters Date Type Department Care Team (Late st Contact Info) Description 04/24/2024 10:45 AM EST Clinical Support [facility] [address] [place] [address] documented as of this encounter Visit Diagnoses Not on filedocumented in this encounter Care Teams Transportation Dispatcher Relationship Specialty Start Date End Date Thea Rubio MD PCP - General Family Medicine 09/13/14 07/16/22 documented as of this encounter
--- OUTSIDE RECORDS SUMMARY | 2024-03-14 18:22 | XMS_ITS | Encounter Summary ---
Author Organization [place] [address] Care Team Providers Care Clothes Marker Name Role Phone Thea Rubio MD Primary Care Provider +1- [phone] Reason for Visit * Reason Onset Date Comments Medication Refill 03/25/2017 Encounter Details Date Type Department Care Team (Late st Contact Info) Description 03/25/2017 Telephone [facility] [address] [place] [address] Thea Rubio MD [address] [place], [place] [id number] Medication Refill Social History Tobacco Use Types Packs/Day Years Used Date Smoking Tobacco: Former Cigarettes 0.5 0.2 1 - 04/21/1994 Smokeless Tobacco: Never Alcohol Use Standard Drinks/Week Comments Yes 0 (1 standard drink = 0.6 oz [...] Refills Last Filled Start Date End Date dicyclomine (BENTYL) 10 mg Oral Capsule Take 1 Cap by mouth 4 times daily as needed (for cramps after menses). 120 Cap 2 03/25/2017 10/06/2017 documented in this encounter Miscellaneous Notes * Telephone Encounter - Thea Rubio MD - 03/25/2017 1:36 PM EST Med sent * Telephone Encounter - Dejuan Covington - 03/25/2017 1:23 PM EST Her Dicyclomine 10 mg and would like a new rx, please documented in this encounter Plan of Treatment Upcoming Encounters Date Type Department Care Team (Late st Contact Info) Description 04/24/2024 10:45 AM EST Clinical Support [facility] [address] [place] [address] documented as of this encounter [...] daily as needed (for cramps after menses). Reorder 03/25/2017 documented as of this encounter Care Teams Clothes Marker Relationship Specialty Start Date End Date Thea Rubio MD PCP - General Family Medicine 09/13/14 07/16/22 documented as of this encounter
--- OUTSIDE RECORDS SUMMARY | 2024-03-14 18:22 | XMS_ITS | Encounter Summary ---
Author Organization [place] [address] Care Team Providers Care Channeling Machine Operator Name Role Phone Thea Rubio MD Primary Care Provider +1- [phone] Reason for Visit * Reason Comments Leg Injury right leg back of kn ee muscle pulled Encounter Details Date Type Department Care Team (Late st Contact Info) Description 12/19/2015 2:45 PM EDT [facility] [address] [place] [address] Ethel Overton MD [address] [place] [address] Knee injury, right, initial encounter (Primary Dx) Social History Tobacco Use Types [...] Sign Reading Time Taken Comments Blood Pressure 118/62 12/19/2015 2:50 PM EDT Pulse 88 12/19/2015 2:50 PM EDT Temperature 36.8 ??C (98.2 ??F) 12/19/2015 2:50 PM ED T Respiratory Rate - - Oxygen Saturation 98% 12/19/2015 2:50 PM EDT Inhaled Oxygen Concentration - - Weight 78.9 kg (174 lb) 12/19/2015 2:50 PM EDT Height 165.1 cm (5' 5 ) 12/19/2015 2:50 PM EDT Body Mass Index 28.96 12/19/2015 2:50 PM EDT documented in this encounter Progress Notes * Ethel Overton MD - 12/19/2015 2:52 PM EDT Subjective Subjective: Patient ID: Gardenia Childress is a 35 y.o. female. Chief Complaint Patient presents with ??? Leg Injury right leg back of knee muscle pulled HPI Pt complains of R knee pain x several weeks. Pt hit knee on speaker. Pain has improved but still present. Pt works at [employer]. Pt does repetitive bending, squatting, lifting. Pain is worse at end of day. Pt also twisted R leg and this has worsened R knee pain. No otc nsaids leg. Denies leg pain Patients past medical, family and social histories were reviewed and updated. There were no changesexcept as noted. Review of Systems Constitutional: Negative. Musculoskeletal: +R knee pain Skin: Negative for rash. Objective Objective: Vitals: 12/19/15 1450 BP: 118/62 BP Location: Left arm Patient Position: Sitting Pulse: 88 Temp: 98.2 ??F (36.8 ??C) TempSrc: Oral SpO2: 98% Weight: 174 lb (78.9 kg) Height: 5' 5 (1.651 m) Body mass index is 28.96 kg/(m^2). Physical Exam Constitutional: She is oriented to person, place, and time. She appears well- developed and well-nourished. Cardiovascular: Regular rhythm. Musculoskeletal: Normal range of motion. She exhibits tenderness. She exhibits no edema. Mild ttp R knee Good rom knee Gait normal Neurological: She is alert and oriented to person, place, and time. Skin: No bruising on knee Assessment and Plan: Gardenia was seen today for leg injury. Diagnoses and all orders for this visit: Knee injury, right, initial encounter Orders: - XR KNEE RIGHT AP LAT INT EXT OBLIQUES AND SUNRISE; Future otc ibuprofen prn Pt was instructed to call or return to clinic if there is no improvement in symptoms or worsening of symptoms. documented in this encounter Plan of Treatment Upcoming Encounters Date Type Department Care Team (Late st Contact Info) Description 04/24/2024 10:45 AM EST Clinical Support [facility] [address] [place] [address] documented as of this encounter Results * XR KNEE RIGHT AP LAT INT EXT OBLIQUES AND SUNRISE (12/19/2015 3:38 PM EDT) Anatomical Region Laterality Modality Knee Radiographic Kristi ging 12/19/2015 3:38 PM EDT Impressions 12/19/2015 3:50 PM EDT Negative right knee films. Narrative 12/19/2015 3:50 PM EDT Procedure: 5 view right knee, 12/19/2015. INDICATION: Pain. FINDINGS: 5 view right knee. No prior. No acute fracture or malalignment. No worrisome bony lesion or radiopaque foreign body. No effusion. Joint spaces are well-preserved. Procedure Note Alvin Saldana MD - 12/19/2015 Procedure: 5 view right knee, 12/19/2015. INDICATION: Pain. FINDINGS: 5 view right knee. No prior. No acute fracture or malalignment.No worrisome bony lesion or radiopaque foreign body. No effusion. Jointspaces are well-preserved. IMPRESSION Negative right knee films. Ethel Overton MD IMG DIAGNOSTIC IMAGING ORDERABL ES Final Result documented in this encounter Visit Diagnoses Diagnosis Knee injury, right, initial encounter- Primary Knee injury, right, initial encounter documented in this encounter Discontinued Medications Medication Sig Discontinue Reason Start Date End Da te diazepam (VALIUM) 5 mg Oral Tablet Take 1 Tab by mouth every 12 hours as needed. DELETE-Therapy completed 06/19/2015 12/19/2015 traMADol (ULTRAM) 50 mg Oral TabletIndications:New daily persistent headache,Neck pain Take 1 Tab by mouth every 6 hours as needed for Pain. DELETE-Therapy completed 06/23/2015 12/19/2015 documented as of this encounter Care Teams Channeling Machine Operator Relationship Specialty Start Date End Date Thae Rubio MD PCP - General Family Medicine 09/13/14 07/16/22 documented as of this encounter
--- OUTSIDE RECORDS SUMMARY | 2024-03-14 18:22 | XMS_ITS | Encounter Summary ---
Author Organization [facility] [facility] [address] Care Team Providers Care Demand Generator Manager Name Role Phone Thea Rubio MD Primary Care Provider +1- [phone] Reason for Visit * Reason Comments Medication Refill Encounter Details Date Type Department Care Team (Late st Contact Info) Description 03/19/2017 Refill [facility] [address] [place] [address] Thea Rubio MD [address] [place] [address] [phone] Medication Refill Social History Tobacco Use Types [...] Refills Last Filled Start Date End Date SUMAtriptan (IMITREX) 25 mg Oral Tablet TAKE ONE TABLET BY MOUTH NEEDED FOR MIGRAINE 9 Tab 4 03/19/2017 8 documented in this encounter Plan of Treatment Upcoming Encounters Date Type Department Care Team (Late st Contact Info) Description 04/24/2024 10:45 AM EST Clinical Support [facility] [address] [place] [address] documented as of this encounter [...] Discontinue Reason Start Date End Da te SUMAtriptan (IMITREX) 25 mg Oral Tablet Take 1 Tab by mouth as needed for Migraine. Reorder 01/08/2016 03/19/2017 documented as of this encounter Care Teams Demand Generator Manager Relationship Specialty Start Date End Date Thea Rubio MD PCP - General Family Medicine 09/13/14 07/16/22 documented as of this encounter
--- OUTSIDE RECORDS SUMMARY | 2024-03-14 18:22 | XMS_ITS | Encounter Summary ---
Author Organization [place] [address] Care Team Providers Care Babbitter Name Role Phone Thea Rubio MD Primary Care Provider +1- [phone] Reason for Visit * Reason Comments Chest Pain hospital follow up Encounter Details Date Type Department Care Team (Late st Contact Info) Description 04/28/2017 10:00 AM EST [facility] [address] [place] [address] Thea Rubio MD [address] [place] [address] Precordial pain (Primary Dx); ASD (atrial septal defect); ASCUS of cervix with negative high risk [...] Sign Reading Time Taken Comments Blood Pressure 102/64 04/28/2017 10:12 AM EST Pulse 72 04/28/2017 10:12 AM EST Temperature 36.6 ??C (97.9 ??F) 04/28/2017 10:[address] Respiratory Rate - - Oxygen Saturation - - Inhaled Oxygen Concentration - - Weight 64 kg (141 lb) 04/28/2017 10:12 AM EST Height 166.4 cm (5' 5.5 ) 04/28/2017 10:12 AM ES T Body Mass Index 23.11 04/28/2017 10:12 AM EST documented in this encounter Progress Notes * Thea Rubio MD - 04/28/2017 10:00 AM EST Subjective Ms. Childress is a 37 y.o. female here for hospital follow up. She was admitted 04-21-17 and discharged 04-23-17 with a diagnosis of precordial CP, ASD on Echo. Pt admitted after dev 2 hr precordial pain and L chest pain after eating [employer], sharp and tight. Usually has fried chicken and has not problems. She is compliant with discharge medications / treatment. She is not having medication side effects. Is f/u with Dr. Anne next wk. No more CP. No reg exercise since in hospital. Used to do intensecardio w/u. Has had GAMING for last yr but never really paid attn to it, thought she was just out of shape. Recent ASCUS on pap. Mo had abnl cells and had hysterectomy. Sister had uterine and ovarian CA. Patient Active Problem List Diagnosis ??? Congenital biliary atresia ??? Migraine without aura ??? Celiac artery stenosis (HCC) ??? Precordial pain ??? ASCUS of cervix with negative high risk HPV Past Surgical History: Procedure Laterality Date ??? ABDOMEN SURGERY as , with CCX, Appy for bile duct ??? ABDOMINAL EXPLORATION SURGERY 11/07/2016 [facility] Deborah Parker MD, for biliary stenosis ??? APPENDECTOMY couple mos old ??? CHOLECYSTECTOMY couple mos old. Allergies Allergen Reactions ??? Aspirin Not sure of rxn. ??? Latex Rash ??? Morphine Nausea And Vomiting Current Outpatient Prescriptions on File Prior to Visit Medication Sig Dispense Refill ??? dicyclomine (BENTYL) 10 mg Oral Capsule Take 1 Cap by mouth 4 times daily as needed (for crampsafter menses). 120 Cap 2 ??? SUMAtriptan (IMITREX) 25 mg Oral Tablet TAKE ONE TABLET BY MOUTH NEEDED FOR MIGRAINE 9 Tab 4 ??? topiramate (TOPAMAX) 50 mg Oral Tablet TAKE ONE TABLET BY MOUTH TWICE A DAY. MAY ADD EXTRA PILLAT NIGHT WHEN HAVING MIGRAINE FLARES. 270 Tab 1 No current facility-administered medications on file [...] Medicine) Review of Systems Respiratory: Positive for shortness of breath. Cardiovascular: Negative for chest pain. All other systems reviewed and are negative. Objective BP 102/64 (BP Location: Left arm, Patient Position: Sitting) Pulse 72 Temp 97.9 ??F (36.6 ??C) (Oral) Ht 5' 5.5 (1.664 m) Wt 141 lb (64 kg) BMI 23.11 kg/m?? Physical Exam Constitutional: She appears well-developed [...] reviewed. Lab Results Component Value Date WBC 9.2 04/22/2017 HGB 14.5 04/22/2017 HCT 44.1 04/22/2017 PLT 298 04/22/2017 CHOLESTEROL 151 04/22/2017 TRIG 72 04/22/2017 HDL 63 04/22/2017 LDLCALC 74 04/22/2017 ALT 14 04/22/2017 AST 22 04/22/2017 NA 141 04/22/2017 K 4.1 04/22/2017 CL 108 (H) 04/22/2017 CREATININE 0.77 04/22/2017 BUN 11 04/22/2017 CO2 14 (L) 04/22/2017 GLU 79 04/22/2017 TSHREFLEX 2.100 04/23/2016 IMPRESSION CONCLUSIONS Normal global left ventricular size, wall thickness, systolic function with no obvious regional wall motion abnormalities at rest. Normal resting echocardiogram. Mild right ventricular dilatation. Prominent right atrial size. Quwu-gv-ggrvz shunt seen at the atrial level. Shunt max velocity is 161 cm/s. Max PG 10 mmHg, mean PG 5 mmHg. No tricuspid stenosis. Mild tricuspid regurgitation. Right ventricular systolic pressure estimated at 19 mmHg. No echocardiographic evidence of myocardial ischemia. The global left ventricular systolic function improved with stress. Diagnoses and all orders for this visit: Precordial pain-doesn't sound cardiac, ? Reflux sx. If sx recur, try Pepid complete. ASD (atrial septal defect)-f/u with cardiology. Likely an incidental finding ASCUS of cervix with negative high risk HPV-pt with FHx of mult issues, ck pap 6 mos Overview: Mar 2017 [facility] Documentation Recent hospital discharge summary and patient instructions were reviewed with . Discharge medications were discussed and reconciled with her. [facility] Documentation Medication Compliance: Compliant all the time Understanding of Current Medications: Good Medication Compliance Barriers: None or N/A Self-Management Tools: N/A, no chronic conditions Self-Management Ability: Good Willingness to Adopt Healthy Behaviors: Good Potential Barriers to completing treatment plans today: No significant barriers [facility] Flowsheet was completed/reviewed as part of today's visit. Educated patient and spouse regarding the diagnosis, medication/treatment, goals, self-management tools and instructions based on their care plan. They verbalized understanding of the education givenon the After Visit Summary [AVS] for today's visit. A copy of the AVS was provided either in writing and/or via [employer]. A new medicine was not prescribed on this visit. Existing barriers discussed and addressed in orders and /or referrals. I certify the following are true: 1. Communication with the patient was made within 2 business days of discharge. (I spoke with pt repap and hospital stay 04-25-17) 2. Medical decision making of medium complexity. 3. Face to face visit within 7 days. Code Complexity Face to face 81024 High complexity within 7 days 52430 High complexity 8-14 days 38667 Medium complexity Within 14 days documented in this encounter Miscellaneous Notes * Patient Instructions - Thea Rubio MD - 04/28/2017 10:00 AM EST If your chest pain recurs, try Pepcid complete documented in this encounter Plan of Treatment Upcoming Encounters Date Type Department Care Team (Late st Contact Info) Description 04/24/2024 10:45 AM EST Clinical Support [facility] [address] [place] [address] documented as of this encounter Goals Goal Patient Goal Type Associated Problems Recent Progress Patient-Stated? Author Maintain a healthy diet, exercise regularly and maintain an ideal body weight General No Thea Rubio MD Stay Tobacco Free Lifestyle No Thea Rubio MD documented as of this encounter Visit Diagnoses Diagnosis Precordial pain- Primary ASD (atrial septal defect) Ostium secundum type atrial septal defect ASCUS of cervix with negative high risk HPV documented in this encounter Care Teams Babbitter Relationship Specialty Start Date End Date Thea Rubio MD PCP - General Family Medicine 09/13/14 07/16/22 documented as of this encounter
--- OUTSIDE RECORDS SUMMARY | 2024-03-14 18:22 | XMS_ITS | Encounter Summary ---
Author Organization [facility] [place] [address] Care Team Providers Care Gang Vibrator Operator Name Role Phone Thea Rubio MD Primary Care Provider +1- [phone] Reason for Referral * Physical Therapy (Routine) - Closed Specialty Diagnoses / Procedures Referred By Amalia t Referred To Contact Physical Therapy Diagnoses Right knee pain, unspecified chronicity Thea Rubio MD Phone: tel: fax: [facility] Therapy [address] [address] Phone: tel: fax: Referral ID Status Reason Start Date Expiration Date V isits Requested Visits Authorized [id number] Closed Specialty Services Required 12/26/2015 12/25/2016 30 30 Question Answer Reason for Physical Therapy Evaluate and Treat Reason for Visit * Reason Onset Date Comments Other 12/22/2015 Encounter Details Date Type Department Care Team (Late st Contact Info) Description 12/22/2015 Telephone [facility] [address] [place] [address] Thae Rubio MD [address] [id number] Other Social History Tobacco Use Types Packs/Day [...] End Date naproxen (NAPROSYN) 500 mg Oral TabletIndications: Right knee pain, unspecified chronicity Take 1 Tab by mouth 2 times daily with meals as needed for Pain. 60 Tab 12/22/2015 04/19/2016 documented in this encounter Miscellaneous Notes * Telephone Encounter - Alise Hanna RMA - 12/26/2015 12:20 PM EDT LMOM with details for PT * Telephone Encounter - Antonietta Richards - 12/22/2015 4:39 PM EDT The patient had an x ray of her right knee and she wants the results. documented in this encounter Plan of Treatment Upcoming Encounters Date Type Department Care Team (Late st Contact Info) Description 04/24/2024 10:45 AM EST Clinical Support [facility] [address] [place] [address] Scheduled Referrals Name Type Priority Associated Diagnoses Orde r Schedule AMB REFERRAL TO PHYSICAL THERAPY Outpatient Referral Routine Right knee pain, unspecified chronicity Ordered: 12/26/2015 documented as of this encounter Visit Diagnoses Diagnosis Right knee pain, unspecified chronicity- Primary documented in this encounter Care Teams Gang Vibrator Operator Relationship Specialty Start Date End Date Thea Rubio MD PCP - General Family Medicine 09/13/14 07/16/22 documented as of this encounter
--- OUTSIDE RECORDS SUMMARY | 2024-03-14 18:22 | XMS_ITS | Encounter Summary ---
Author Organization [place] [address] Care Team Providers Care Building Services Supervisor Name Role Phone Thea Rubio MD Primary Care Provider +1- [phone] Reason for Visit * Reason Onset Date Comments Alopecia 06/18/2016 Encounter Details Date Type Department Care Team (Late st Contact Info) Description 06/18/2016 Telephone [facility] [address] [place] [address] Thea Rubio MD [address] [place] [address] [phone] Alopecia Social History Tobacco Use Types Packs/Day Years [...] Telephone Encounter - Susan Oliveira RMA - 06/18/2016 5:10 PM EST Spoke with patient and discussed Dr Rubio's recommendations * Telephone Encounter - Thea Rubio MD - 06/18/2016 4:09 PM EST Only Rx is OTC Rogaine topical medicine, takes up to 6 mos to work. * Telephone Encounter - Bernarda Barrios - 06/18/2016 3:56 PM EST Pt has tried biotin pills and shampoo with biotin in it To help with her hair loss and it is not helping. Is there some type of Rx she can try. Please advise. consuelo montana documented in this encounter Plan of Treatment Upcoming Encounters Date Type Department Care Team (Late st Contact Info) Description 04/24/2024 10:45 AM EST Clinical Support [facility] [address] [place] [address] documented as of this encounter Visit Diagnoses Not on filedocumented in this encounter Care Teams Building Services Supervisor Relationship Specialty Start Date End Date Thea Rubio MD PCP - General Family Medicine 09/13/14 07/16/22 documented as of this encounter
--- OUTSIDE RECORDS SUMMARY | 2024-03-14 18:22 | XMS_ITS | Encounter Summary ---
Author Organization [place] [address] Care Team Providers Care Chuck Splitter Name Role Phone Thea Rubio MD Primary Care Provider +1- [phone] Reason for Visit * Reason Onset Date Comments Migraine 07/30/2016 Encounter Details Date Type Department Care Team (Late st Contact Info) Description 07/30/2016 Telephone [facility] [address] [place] [address] Thea Rubio MD [address] [place] [address] [phone] Migraine Social History Tobacco Use Types Packs/Day Years [...] Telephone Encounter - Susan Oliveira RMA - 07/31/2016 3:31 PM EDT Pt will decrease cardio and see if it helps if no help will call back for an appt sooner * Telephone Encounter - Susan Oliveira RMA - 07/31/2016 7:44 AM EDT [facility] * Telephone Encounter - Thea Rubio MD - 07/30/2016 4:22 PM EDT Pt needs appt to be evaluated. In meantime, until pt is seen, decrease intensity of cardio workoutsto see if helps * Telephone Encounter - Bernarda Barrios - 07/30/2016 3:24 PM EDT Pt started exercising about a month ago, she is doing a mixture of cardio and weight training and she has started getting pretty bad migraines. they last for about a day sometimes 2. She mainly gets migraines when she does the cardio workouts. They started about a week ago. She exercises 6 days a week any where from 30 minutes to a hr. Pt is not taking any pre work out or anything. She is stayinghydrated she drinks water all day long. documented in this encounter Plan of Treatment Upcoming Encounters Date Type Department Care Team (Late st Contact Info) Description 04/24/2024 10:45 AM EST Clinical Support [facility] [address] [place] [address] documented as of this encounter Visit Diagnoses Not on filedocumented in this encounter Care Teams Chuck Splitter Relationship Specialty Start Date End Date Thea Rubio MD PCP - General Family Medicine 09/13/14 07/16/22 documented as of this encounter
--- OUTSIDE RECORDS SUMMARY | 2024-03-14 18:22 | XMS_ITS | Encounter Summary ---
Author Organization [place] [address] Care Team Providers Care Cashier Assistant Name Role Phone Thea Rubio MD Primary Care Provider +1- [phone] Encounter Details Date Type Department Care Team (Latest Contact Info) Description 12/19/2015 3:18 PM EDT - 12/19/2015 11:59 PM EDT Hospital Encounter [facility] [address] [facility] [place], [place] [id number] Knee injury, right, initial encounter Discharge Disposition: Home or Self [...] [facility] [address] [facility] [place] [address] documented as of this encounter Procedures Procedure Name Priority Date/Time Associated Diagnosis Comments XR KNEE RIGHT AP LAT INT EXT OBLIQUES AND SUNRISE Routine 12/19/2015 3:38 PM EDT Knee injury, right, initial encounter documented in this encounter Results * XR KNEE RIGHT [...] are well-preserved. IMPRESSION Negative right knee films. us Ethel S Tian HERNANDEZ IMG DIAGNOSTIC IMAGING ORDERABL ES Final Result documented in this encounter Visit Diagnoses Diagnosis Knee injury, right, initial encounter documented in this encounter Care Teams Cashier Assistant Relationship Specialty Start Date End Date Thea Rubio MD PCP - General Family Medicine 09/13/14 07/16/22 documented as of this encounter
--- OUTSIDE RECORDS SUMMARY | 2024-03-14 18:22 | XMS_ITS | Encounter Summary ---
Author [place] [address] Care Team Providers Care Health Care Law Specialist Name Role Phone Thea Rubio MD Primary Care Provider +1- [phone] Reason for Visit * Reason Onset Date Comments ED Follow-Up Call 01/16/2017 Care Management - Chart Review 01/16/2017 Encounter Details Date Type Department Care Team (Late st Contact Info) Description 01/16/2017 Patient Outreach [facility] [address] [place] [id number] Caty Porter RN [address] [place] [address] ED Follow-Up Call; Care Management - Chart [...] [facility] [address] [place] [address] documented as of this encounter Goals Goal Patient Goal Type Associated Problems Recent Progress Patient-Stated? Author Maintain a healthy diet, exercise regularly and maintain an ideal body weight General No Thea Rubio MD Stay Tobacco Free Lifestyle No Thea Rubio MD documented as of this encounter Visit Diagnoses Not on filedocumented in this encounter Care Teams Health Care Law Specialist Relationship Specialty Start Date End Date Thea Rubio MD PCP - General Family Medicine 09/13/14 07/16/22 documented as of this encounter
--- OUTSIDE RECORDS SUMMARY | 2024-03-14 18:22 | XMS_ITS | Encounter Summary ---
Author Organization [facility] [place] [address] Care Team Providers Care Diagnostics Tech Name Role Phone Thea Rubio MD Primary Care Provider [phone]- [phone] Reason for Visit * Reason Comments Migraine Encounter Details Date Type Department Care Team (Late st Contact Info) Description 10/18/2016 2:00 PM EDT Office Visit [facility] [address] [place] [address] Thea Rubio MD [address] [place] [address] [phone] Migraine without aura and without status migrainosus, not intractable (Primary Dx); Celiac artery stenosis (HCC) Social History Tobacco Use Types Packs/Day [...] Sign Reading Time Taken Comments Blood Pressure 116/70 10/18/2016 1:57 PM EDT Pulse 80 10/18/2016 1:57 PM EDT Temperature 36.9 ??C (98.4 ??F) 10/18/2016 1:57 PM ED T Respiratory Rate - - Oxygen Saturation 98% 10/18/2016 1:57 PM EDT Inhaled Oxygen Concentration - - Weight 67.1 kg (148 lb) 10/18/2016 1:57 PM EDT Height 165.1 cm (5' 5 ) 10/18/2016 1:57 PM EDT Body Mass Index 24.63 10/18/2016 1:57 PM EDT documented in this encounter Ordered Prescriptions Prescription Sig Dispense Quantity Refills Last Filled Start Date End Date topiramate (TOPAMAX) 50 mg Oral TabletIndications: Migraine without aura and without status migrainosus, not intractable TAKE ONE TABLET BY MOUTH TWICE A DAY. MAY ADD EXTRA PILL AT NIGHT WHEN HAVING MIGRAINE FLARES. 270 Tab 1 10/18/2016 8 documented in this encounter Progress Notes * Thea Rubio MD - 10/18/2016 2:00 PM EDT Images from the original note were not included. Subjective Chief Complaint Patient presents with ??? Migraine Will be having surgery soon, scar wrapped around main artery of GI tract, will see Dr. Parker at . Has constant dull upper epigastric pain and bouts of sharp pain. Wt is down. Migraines infrequent. Did get more migraines with cardio part of [place] butt lift exercises. No chance of , is impotent due to DM. Not exercising at all. Patient Active Problem List Diagnosis ??? Congenital biliary atresia ??? Migraine without aura ??? Celiac artery stenosis (HCC) Current Outpatient Prescriptions on File Prior to Visit Medication Sig Dispense Refill ??? dicyclomine (BENTYL) 10 mg Oral Capsule Take 10 mg by mouth 4 times daily as needed (for crampsafter menses). ??? SUMAtriptan (IMITREX) 25 mg Oral Tablet Take 1 Tab by mouth as needed for Migraine. 9 Tab 5 No current facility-administered medications on file prior to visit. Social History Social History ??? Marital status: Spouse name: N/A ??? Number of children: N/A ??? Years of education: N/A Social History Main Topics ??? Smoking status: Former Smoker Packs/day: 0.50 Years: 0.20 Quit date: 04/21/1994 ??? Smokeless tobacco: Never Used ??? Alcohol use No Comment: 2-3 drink every 3-4 mos. ??? Drug use: No ??? Sexual activity: Yes Partners: Male Other Topics Concern ??? None Social History Narrative ??? None Family History Problem Relation Age of Onset ??? Cancer Sister 32 ovarian and uterine ??? Diabetes Mother ??? Heart Disease Mother ??? High Blood Pressure Mother ??? Cancer Paternal Aunt uterine ??? Cancer Paternal Uncle ? type ??? Cancer Maternal Grandmother breast ??? Diabetes Maternal Grandfather ??? Stroke Paternal Grandmother ??? Other Father Leigha huddleston, (sp ?), causes head aneurysms. Immunization History Administered Date(s) Administered ??? Tdap 09/26/2015 Health Maintenance Due Topic Date Due ??? Annual Wellness Exam 09/25/2016 Patient Care Team: Thea Rubio MD as PCP - General (Family Medicine) Review of Systems Gastrointestinal: Positive for abdominal pain. Neurological: Positive for headaches. All other systems reviewed and are negative. Objective BP 116/70 (BP Location: Left arm, Patient Position: Sitting) Pulse 80 Temp 98.4 ??F (36.9 ??C) (Oral) Ht 5' 5 (1.651 m) Wt 148 lb (67.1 kg) SpO2 98% BMI 24.63 kg/m?? Physical Exam Constitutional: She appears well-developed and well-nourished. Neck: Normal range of motion. Neck supple. No tracheal deviation present. No thyromegaly present. Cardiovascular: Normal rate, regular rhythm and normal heart sounds. Exam reveals no gallop. No murmur heard. No carotid bruits Pulmonary/Chest: Effort normal and breath sounds normal. Abdominal: There is tenderness. Mild to mod tender epigastric area in general, no mass Lymphadenopathy: She has no cervical adenopathy. Nursing note and vitals reviewed. Lab Results Component Value Date WBC 7.9 10/07/2015 HGB 12.8 10/07/2015 HCT 39.5 10/07/2015 PLT 298 10/07/2015 CHOLESTEROL 174 10/07/2015 TRIG 71 10/07/2015 HDL 50 10/07/2015 LDLCALC 110 (H) 10/07/2015 ALT 16 10/07/2015 AST 17 10/07/2015 NA 141 10/07/2015 K 4.4 10/07/2015 CL 109 (H) 10/07/2015 CREATININE 0.86 10/07/2015 BUN 9 10/07/2015 CO2 21 (L) 10/07/2015 GLU 90 10/07/2015 TSHREFLEX 2.100 04/23/2016 Exam: CT ANGIOGRAPHY LIVER BIPHASIC dated 10/14/2016 9:24 AM EDT? CLINICAL HISTORY: Obstruction of bile duct; history of biliary atresia with remote [place] procedure? TECHNIQUE: Biphasic (arterial and venous) helical scanning was performed through the abdomen following intravenous contrast administration with multiplanar reformats, maximum intensity projections, and volume rendering performed separately.? FIELD OF VIEW: 34 cm? CONTRAST: 150 mL Omnipaque-350.? COMPARISON: April 2011? FINDINGS:? 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 There is mild left intrahepatic biliary dilation with pneumobilia, unchanged. The right bile ducts are not dilated.? The liver is normal in attenuation with no focal lesions. The portal vein and hepatic veins are patent. 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 The spleen, pancreas, kidneys, and adrenal glands are normal in appearance. The gallbladder is absent. No abnormalities of the gastrointestinal tract are evident.? The lung bases are clear. There are no lytic or blastic bone lesions.?? Diagnoses and all orders for this visit: 1. Migraine without aura and without status migrainosus, not intractable-doing well. - topiramate (TOPAMAX) 50 mg Oral Tablet; TAKE ONE TABLET BY MOUTH TWICE A DAY. MAY ADD EXTRA PILL AT NIGHT WHEN HAVING MIGRAINE FLARES. Dispense: 270 Tab; Refill: 1 2. Celiac artery stenosis (HCC) (Chronic)-will need surgery. [facility] Documentation Medication Compliance - compliant all of the time Understanding of current medications - good Self-Management Tools - home weight monitoring Self-Management Ability - good Willingness to adopt healthy behaviors - good Patient Barriers: no significant Existing barriers discussed and addressed in orders and /or referrals. Educated patient regarding the diagnosis, medication/treatment, goals, self- management tools and instructions based on their care plan. They verbalized understanding of the education given on the After Visit Summary [AVS] for today's visit. A copy of the AVS was provided either in writing and/or via Pop[employer]. A new medicine was not prescribed on this visit. documented in this encounter Miscellaneous Notes * Patient Instructions - Thea Rubio MD - 10/18/2016 2:00 PM EDT Current Exercise Recommendations, [place] Dept of [...] the heart rate and causes rapid breathing. documented in this encounter Plan of Treatment Upcoming Encounters Date Type Department Care Team (Late st Contact Info) Description 04/24/2024 10:45 AM EST Clinical Support [facility] [address] [place] [phone] documented as of this encounter Goals Goal Patient Goal Type Associated Problems Recent Progress Patient-Stated? 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 MAY ADD EXTRA PILL AT NIGHT WHEN HAVING MIGRAINE FLARES. Reorder 09/17/2016 10/18/2016 documented as of this encounter Care Teams Diagnostics Tech Relationship Specialty Start Date End Date Thea Rubio MD PCP - General Family Medicine 09/13/14 07/16/22 documented as of this encounter
--- OUTSIDE RECORDS SUMMARY | 2024-03-14 18:22 | XMS_ITS | Encounter Summary ---
Author Organization [place] [address] Care Team Providers Care Small Products I Assembler Name Role Phone Thea Rubio MD Primary Care Provider [phone]- [phone] Reason for Visit * Reason Onset Date Comments Care Management - Chart Review 04/24/2017 h ospital discharge chart review Encounter Details Date Type Department Care Team (Late st Contact Info) Description 04/24/2017 Patient Outreach [facility] [address] [place] [phone] Shoshana Britton, RN Care Management - Chart Review (hospital discharge chart review) Social History Tobacco Use Types Packs/Day Years [...] as of this encounter Progress Notes * Shoshana Britton, RN - 04/24/2017 8:22 AM EST CTT reviewed patient's chart after hospital discharge. Pt's MD score level 1. Will not be followed by CTT documented in this encounter Plan of Treatment Upcoming Encounters Date Type Department Care Team (Late st Contact Info) Description 04/24/2024 10:45 AM EST Clinical Support [facility] [address] [place] [phone] documented as of this encounter Goals Goal Patient Goal Type Associated Problems Recent Progress Patient-Stated? Author Maintain a healthy diet, exercise regularly and maintain an ideal body weight General No Thea Rubio MD Stay Tobacco Free Lifestyle No Thea Rubio MD documented as of this encounter Visit Diagnoses Not on filedocumented in this encounter Care Teams Small Products I Assembler Relationship Specialty Start Date End Date Thea Rubio MD PCP - General Family Medicine 09/13/14 07/16/22 documented as of this encounter
--- OUTSIDE RECORDS SUMMARY | 2024-03-14 18:22 | XMS_ITS | Encounter Summary ---
Author Organization [place] [address] Care Team Providers Care Bindery Production Manager Name Role Phone Thea Rubio MD Primary Care Provider [phone] Reason for Visit * Reason Comments Chest Pain Pt has ahd chest martha n since 1600 today. + SOB, denies any heart hx. CPTA: topamax * Auth/Cert/Inpt Specialty Diagnoses / Procedures Referred By Amalia t Referred To Contact Diagnoses Chest pain, unspecified type Referral ID Status Reason Start Date Expiration Date Visits Re quested Visits Authorized [id number] 1 1 Encounter Details Date Type Department Care Team (Late st Contact Info) Description 04/21/2017 11:14 PM EST - 04/23/2017 9:07 AM EST Emergency EDG CLIN DEC UNIT One [facility] [place] [address] Eros Gunter MD [address] [facility] [place] [address] Popeye Brady MD [address] [place] [address] Chest pain, unspecified type (Primary Dx) Discharge [...] Sign Reading Time Taken Comments Blood Pressure 98/64 04/23/2017 8:38 AM EST Pulse 74 04/23/2017 8:38 AM EST Temperature 36.9 ??C (98.5 ??F) 04/23/2017 8:38 AM ES T Respiratory Rate 16 04/23/2017 8:38 AM EST Oxygen Saturation 98% 04/23/2017 8:38 AM EST Inhaled Oxygen Concentration - - Weight 62.2 kg (137 lb 3.2 oz) 04/22/2017 2:30 A M EST Height 166.4 cm (5' 5.5 ) 04/22/2017 2:30 AM EST Body Mass Index 22.48 04/22/2017 2:30 AM EST documented in this encounter Discharge Summaries * Migue Anne MD - 04/23/2017 8:30 AM EST [facility] Discharge Summary Patient Name: Gardenia Childress : 1980 Admit Date: 04/21/2017 Discharge Date: 04-23-16 Admitting Physician: Popeye Brady MD Discharge Physician: Dr Anne Reason for Hospitalization: Active Hospital Problems Precordial pain Hospital Course/Significant Findings: Patient is a 37 y.o. female who presented to the ER w developing CP Friday afternoon. Pt reports recent ROS to be unremarkable. She ate [employer] w her and while in the car she developed MS CP radiating left breast a/w mild SOB. NO dizziness or sensation of irreg HR. No nausea, emesis or abdominal; pain. No pleuritic or MSK component Discomfort persisted for over two hours prompting ER evaluation Pain free overnight in CDU Trop < 0.01 x 3 No ischemic EKG changes DDimer < 230 Procedures Performed: CTA: Heart rate was in sinus rhythm but too fast. As a result there are portions of proximal LAD, proximal circumflex and of the RIGHT coronary origin that were not imaged. ?? IMPRESSION: No evidence of atherosclerotic disease but nondiagnostic due to failure to image segments of the proximal RIGHT coronary, LAD and circumflex. ?? Note: Exam will be repeated if requested but unlikely to be diagnostic if heart rate cannot be significantly lowered. GXT Echo Normal global left ventricular size, wall thickness, systolic function with no obvious regional wall motion abnormalities at rest. Normal resting echocardiogram. Mild right ventricular dilatation. Prominent right atrial size. [id number]-jk-[id number] shunt seen at the atrial level. Shunt max velocity is 161 cm/s. Max PG 10 mmHg, mean PG 5 mmHg. No tricuspid stenosis. Mild tricuspid regurgitation. Right ventricular systolic pressure estimated at 19 mmHg. No echocardiographic evidence of myocardial ischemia. The global left ventricular systolic function improved with stress. : Discharge Exam: BP (!) 86/61 (BP Location: Left arm, Patient Position: Semi Fowlers) Pulse 76 Temp 98.8 ??F (37.1 ??C) (Oral) Resp 16 Ht 5' 5.5 (1.664 m) Wt 137 lb 3.2 oz (62.2 kg) LMP 03/24/2017 [id number]% ? No BMI 22.48 kg/m?? General Appearance: Alert, cooperative, no distress, appears stated age Head: Normocephalic, without obvious abnormality, atraumatic Throat: Lips, mucosa, and tongue normal; teeth and gums normal Neck: Supple, symmetrical, trachea midline, no adenopathy; thyroid: no enlargement/tenderness/nodules; no carotid bruit or JVD Back: Symmetric, no curvature, ROM normal, no CVA tenderness Lungs: Clear to auscultation bilaterally, respirations unlabored Chest Wall: No tenderness or deformity Heart: Regular rate and rhythm, S1 and S2 normal, no murmur, rub or gallop Abdomen: Soft, non-tender, bowel sounds active all four quadrants, no masses, no organomegaly Extremities: Extremities normal, atraumatic, no cyanosis or edema Pulses: 2+ and symmetric all extremities Skin: Skin color, texture, turgor normal, no rashes or lesions Neurologic: CNII-XII intact, normal strength, sensation and reflexes throughout Discharge Diagnoses: Precordial CP ASD Condition at Discharge: good Disposition: Home Discharge Medications:: Medication List CONTINUE taking these medications dicyclomine 10 mg [...] PILL AT NIGHT WHEN HAVING MIGRAINE FLARES. Follow Up: Thea Rubio MD [address] [place] [address] Schedule an appointment as soon as possible for a visit in 1 week Migue Anne MD [address] [facility] [phone] Schedule an appointment as soon as possible for a visit in 2 weeks Signed: Elver Jones APRN 04/23/2017 8:30 AM Addendum: I personally interviewed and examined the above patient. I have reviewed the PMH, Social Hx, and ROS. I agree with the outlined assessment and plan as noted. Plan as above and as outlined in today's progress note documented in this encounter Discharge Disposition Disposition Code Departure Means Destination Home or Self Group Home documented in this encounter Progress Notes * Kris Bruce RN - 04/23/2017 9:06 AM EST Discharge instructions given to patient who voiced her understanding. * Migue Anne MD - 04/23/2017 8:22 AM EST Cardiology Progress Note Admit Date: 04/21/2017 LOS: 0 days Gardenia Childress is a(n)37 y.o. female Subjective: Pt states she feels better this am. Cp has resolved. Objective: Patient Vitals for the past 24 hrs: BP Temp Temp src Pulse Resp SpO2 04/23/17 0630 (!) 86/61 98.8 ??F (37.1 ??C) Oral 76 16 98 % 04/23/17 0257 - - - 80 - - 04/23/17 0030 104/72 97.9 ??F (36.6 ??C) Oral 72 16 99 % 04/22/172109 117/71 - - 77 - 97 % 04/22/172044 96/61 - - 68 - - 04/22/171921 106/66 98.6 ??F (37 ??C) Oral 74 16 98 % 04/22/17 175 112/58 98.3 ??F (36.8 ??C) - 80 - 94 % 04/22/17 0829 110/58 98.3 ??F (36.8 ??C) - 64 18 98 % I/O last 3 completed shifts: In: 360 [P.O.:360] Out: - Exam: GENERAL APPEARANCE: In no acute distress HEENT: Normocephalic, Atraumatic, Sclera anicteric, Pupils equal, round, and reactive. NECK: No JVD, No Bruit. Carotid upstrokes are full. RESPIRATORY: Normal breath sounds bilaterally with full volume excursion. No rales or wheezing HEART: Normal S1, S2- No S3, S4. No Murmur, rub or gallop. PMI is nondisplaced. VASCULAR: Normal pulses, equal bilaterally. ABDOMEN: Soft, nontender, no organomegaly, no distension. Bowel sounds are normoactive.h EXTREMITIES: No edema- No cyanosis. Good capillary refill. Labs Lab Results Component Value Date CHOLESTEROL 151 04/22/2017 HDL 63 04/22/2017 LDLCALC 74 04/22/2017 TRIG 72 04/22/2017 No results found for: INR, PROTIME Lab Results Component Value Date WBC 9.2 04/22/2017 HGB 14.5 04/22/2017 HCT 44.1 04/22/2017 MCV 86.6 04/22/2017 PLT 298 04/22/2017 No results found for: HGBA1C Lab Results Component Value Date NA 141 04/22/2017 K 4.1 04/22/2017 BUN 11 04/22/2017 CALCIUM 9.1 04/22/2017 CL 108 (H) 04/22/2017 CO2 14 (L) 04/22/2017 CREATININE 0.77 04/22/2017 GLU 79 04/22/2017 Lab Results Component Value Date ALT 14 04/22/2017 AST 22 04/22/2017 ALKPHOS 64 04/22/2017 Lab Results Component Value Date TSHREFLEX 2.100 04/23/2016 Tele: sinus in 70's Card[address] CT - normal cors but proximal vessels not well visualized. No congenital defects noted Assessment: Atypical Chest Pain - persistent without objective ischemic findings ?? Chronic Migraine ORTEGA's ?? 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 Told she could not take asa for this reason. 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 ASD - noted on echo. Doubt would explain cp. No obvious associated cardiac abnormalities on CardiacCT ?? Plan: Ok with d/c Will hold on asa given fact she has been told not to take it due to above Will consider eventual WAYNE and possible RHC as OP See d/c note per Elver Jones ?? Migue Anne MD * Julissa Brown RN - 04/22/2017 10:45 PM EST Attempted CCTA earlier. Lowest HR 62. Unable to give Lopressor IV or nitro d/t BP less than 100. CCTA results inconclusive. Pt will not be discharged tonight, possible further cardiac testing in am. Per Lisa Jones APRN. documented in this encounter H&P Notes * Migue Anne MD - 04/22/2017 8:07 AM EST Cardiology History and Physical: Gardenia Childress Today's Date: 04/22/2017 Date of Admission: 04/21/2017 Primary Care Provider: Thea Rubio MD Studio Operation Engineer: None PMHx : none SH: non smoker, NO ETOH, Illicit drug use FH: Mother: CAD mid 30's w 7 stents Chief Complaint: CP History of Present Illness: Patient is a 37 y.o. female who presented to the ER w developing CP Friday afternoon. Pt reports recent ROS to be unremarkable. She ate [employer] w her and while in the car she developed MS CP radiating left breast a/w mild SOB. NO dizziness or sensation of irreg HR. No nausea, emesis or abdominal; pain. No pleuritic or MSK component Discomfort persisted for over two hours prompting ER evaluation Pain free overnight in CDU Trop < 0.01 x 3 No ischemic EKG changes DDimer < 230 Review of Systems: Constitutional: No fever, chills, or sweats. No weight loss. No activity changes ?? Eyes: No visual disturbance ?? HENT: No headache, hearing loss, epistaxis, sore throat, or hoarseness ?? Lungs: No SOB, cough, congestion, wheeze, hemoptysis, or pleuritic chest pain ?? Cardiovascular: No PND or orthopnea. No palpitations, dizziness. No near syncope or Syncopal events ?? Endocrine: No polyuria, polydypsia, or polyphagia. No history of diabetes ?? GI: No abdominal pain, nausea, vomiting, diarrhea, constipation, melena, hematochezia, or brightred blood per rectum ?? : No dysuria, frequency, hesitancy, or gross hematuria ?? Musculoskeletal: No myalgias or muscle weakness. No gait changes ?? Neurologic: No focal numbness, tingling or weakness ?? Skin: No new edema, jaundice, or skin rash ?? Hematologic/Allergic: No history of blood clots, bleeding or easy bruising DRAMA CRITIC: No TIA, CVA. NO focal extremity weakness Psychiatric: Speech and behavior appropriate . No agitation, depression or anxiety Medical History: Past Medical History: Diagnosis Date ??? 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 Biliary atresia ??? Depression ??? Migraines Surgical History: Past Surgical History: Procedure Laterality Date ??? ABDOMEN SURGERY as , with CCX, Appy for bile duct ??? ABDOMINAL EXPLORATION SURGERY 11/07/2016 Median Arcuate Ligament Division Deborah Parker MD, for biliary stenosis ??? APPENDECTOMY couple mos old ??? CHOLECYSTECTOMY couple mos old. Allergies: Allergies Allergen Reactions ??? Aspirin Not sure of rxn. ??? Latex Rash ??? Morphine Nausea And Vomiting Prior To Admission Medications: Prescriptions Prior to Admission Medication Sig Dispense Refill Last Dose ??? dicyclomine (BENTYL) 10 mg Oral Capsule Take 1 Cap by mouth 4 times daily as needed (for crampsafter menses). 120 Cap 2 Taking at Unknown time ??? SUMAtriptan (IMITREX) 25 mg Oral Tablet TAKE ONE TABLET BY MOUTH NEEDED FOR MIGRAINE 9 Tab 4Taking at Unknown time ??? topiramate (TOPAMAX) 50 mg Oral Tablet TAKE ONE TABLET BY MOUTH TWICE A DAY. MAY ADD EXTRA PILLAT NIGHT WHEN HAVING MIGRAINE FLARES. 270 Tab 1 04/21/2017 at 2000 Social History: Social History Substance Use Topics ??? Smoking status: Former Smoker Packs/day: 0.50 Years: 0.20 Quit date: 04/21/1994 ??? Smokeless tobacco: Never Used ??? Alcohol use No Family History: Family History Problem Relation Age [...] Leigha huddleston, (sp ?), causes head aneurysms. Physical Exam: GEN: Alert, pleasant and oriented x3. In no acute distress. HEENT:. No xanthelasmas. NECK: Supple. Carotids without bruits. No thyromegaly. LUNGS: clear to auscultation. Chest wall nontender. HEART: RRR, no murmur, gallop, or rub. No jugular venous distension. PMI nondisplaced. ABD: soft, nontender, positive bowel sounds, no hepatosplenomegaly or bruits. EXT: no edema, +2 radial, +2 PT pulses Musculoskeletal: no clubbing, cyanosis or discoloration. SKIN warm and dry. No new rashes Manager Database: Vitals: Vitals: 04/21/17 2217 04/22/17 0134 04/22/17 0230 04/22/17 0636 BP: 106/74 118/86 108/66 104/56 BP Location: Left arm Left arm Left arm Left arm Patient Position: Sitting Semi Fowlers Semi Fowlers Semi Fowlers Pulse: 68 92 84 66 Resp: Temp: 97.9 ??F (36.6 ??C) 97.9 ??F (36.6 ??C) 98.1 ??F (36.7 ??C) TempSrc: Oral Oral Oral SpO2: 100% 98% 100% Weight: 145 lb (65.8 kg) 137 lb 3.2 oz (62.2 kg) Height: 5' 5.5 (1.664 m) 5' 5.5 (1.664 m) Intake and Output: No intake or output data in the 24 hours ending 04/22/17 0807 Weight: Wt Readings from Last 3 Encounters: 04/22/17 137 lb 3.2 oz (62.2 kg) 04/18/17 145 lb (65.8 kg) 01/15/17 135 lb (61.2 kg) Labs: Lab Results Component Value Date HGB 14.5 04/22/2017 HCT 44.1 04/22/2017 PLT 298 04/22/2017 CHOLESTEROL 174 10/07/2015 TRIG 71 10/07/2015 HDL 50 10/07/2015 LDLCALC 110 (H) 10/07/2015 ALT 16 10/07/2015 AST 17 10/07/2015 NA 141 04/22/2017 K 4.1 04/22/2017 CREATININE 0.77 04/22/2017 BUN 11 04/22/2017 CO2 14 (L) 04/22/2017 GLU 79 04/22/2017 Chest xray: NAD EKG: NSR Assessment: 1. CP: Resolved, - no objective data c/w ACS -Trop < 0.01 x 3 -D Dimer < 230 -no ischemic EKG shifts -Low CV risk w exception of FH Plan: GXT Echo Further input to follow from Dr.Houlihan Fredy Jones, PODIATRY ASSISTANT Addendum: I personally interviewed and examined the above patient. I have reviewed the PMH, Social Hx, and ROS. I agree with the outlined assessment and plan as noted. Pt presents with substernal chest tightness. Since arrival has had a persisitent tightness. No sob or pleuritic component. EKG: NSR. ICRBBB. GRAHAM Exam: GENERAL APPEARANCE: In no acute distress NECK: No JVD, No Bruit. Carotid upstrokes are full. RESPIRATORY: Normal breath sounds bilaterally. No rales or wheezing HEART: Normal S1, S2- No S3, S4. No Murmur, rub or gallop. ABDOMEN: Soft, nontender. Bowel sounds are normoactive. EXTREMITIES: No edema- No cyanosis. Good capillary refill. Assessment: Atypical Chest Pain - persistent without objective ischemic findings Chronic Migraine ORTEGA's Celiac Artery Stenosis - required surgery in 10/05 at . Reportedly had a ligament wrapped around the artery Plan: Will proceed with a stress echo Addendum Noted to have possible ASD on stress echo Still having chest pain Will proceed with cardiac CT - evaluate for ASA or possible associated congenital defects documented in this encounter ED Notes * La Geiger RN - 04/22/2017 1:53 AM EST Report to CDU RN Pt will be transferred in approx 1hour * Jayne Delcid RN - 04/22/2017 1:51 AM EST Report given to La Gonzalez RN * Jayne Delcid RN - 04/22/2017 12:15 AM EST 00:15 PT REFUSED MORPHINE,STATES SHE IS ALLERGIC, ER AWARE * Eros Gunter MD - 04/21/2017 10:15 PM EST Chief Complaint Patient presents with ??? Chest Pain Pt has ahd chest pain since 1600 today. + SOB, denies any heart hx. CPTA: ruthx Patient is a 37-year-old female presents to the emergency Department secondary to chest pain. Patient reports a roughly 4 PM today she began with both chest discomfort and chest pain. Chest discomfort is substernal. Chest pain is in the left anterior chest wall. Both began at the same time. Chest pain is more sharp. Substernal discomfort is more pressure-like. She does have associated shortness of breath. She denies nausea or diaphoresis. She denies any recent fevers chills or cough. She deniesextremity edema. She's had no recent travel. She denies a history of hypertension or diabetes. There is a family history of coronary disease with her mother developing coronary disease in her early 30s. No medications were taken for this discomfort at home. She notices no particular aggravating factors. History provided by: Patient Patient History Allergies Allergen Reactions ??? Aspirin Not sure of rxn. ??? Morphine Nausea And Vomiting Home Medications: Prior to Admission medications Medication Sig Start Date End Date Taking? Authorizing Provider dicyclomine (BENTYL) 10 mg Oral Capsule Take 1 Cap by mouth 4 times daily as needed (for cramps after menses). 03/25/17 Thea Rubio MD SUMAtriptan (IMITREX) 25 mg Oral Tablet TAKE ONE TABLET BY MOUTH NEEDED FOR MIGRAINE 03/19/17 Thea Rubio MD topiramate (TOPAMAX) 50 mg Oral Tablet TAKE ONE TABLET BY MOUTH TWICE A DAY. MAY ADD EXTRA PILL AT NIGHT WHEN HAVING MIGRAINE FLARES. 10/18/16 Thea Rubio MD Past Medical History: Past Medical History: Diagnosis Date ??? 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 Biliary atresia ??? Migraines Social History: reports that she [...] old ??? CHOLECYSTECTOMY couple mos old. Infant Review of Systems Review of Systems All other systems reviewed and are negative. Physical Exam Blood pressure 106/74, pulse 68, temperature 97.9 ??F (36.6 ??C), temperature source Oral, resp. rate 20, height 5' 5.5 (1.664 m), weight 145 lb (65.8 kg), SpO2 100 %. Physical Exam Constitutional: She is oriented to person, place, and time. She appears well- developed and well-nourished. HENT: Head: Normocephalic and atraumatic. Mouth/Throat: Oropharynx is clear and moist. Eyes: EOM are normal. Pupils are equal, round, and reactive to light. Neck: Normal range of motion. Neck supple. Cardiovascular: Normal rate, regular rhythm and normal heart sounds. Exam reveals no gallop. No murmur heard. Pulmonary/Chest: Effort normal and breath sounds normal. She has no wheezes. She has no rales. She exhibits no tenderness. Abdominal: Soft. Bowel sounds are normal. There is no tenderness. Musculoskeletal: Normal range of motion. She exhibits no edema. Neurological: She is alert and oriented to person, place, and time. Skin: Skin is warm and dry. Nursing note and vitals reviewed. Procedures Radiology/EKG/Labs: EKG Interpretation Interpreted by me Rhythm: normal sinus Rate: normal [place]: normal Ectopy: none Conduction: normal ST Segments: no acute change T Waves: no acute change Q Waves: none Clinical Impression: no acute changes and normal EKG Results for orders placed or performed during the hospital encounter of 04/21/17 XR CHEST PA AND LATERAL Narrative PA AND LATERAL CHEST X-RAY, 04/21/2017 10:37 PM CLINICAL HISTORY: -CHEST PAIN COMPARISON: 06/11/2015 PROCEDURE COMMENTS: Frontal and lateral views of the chest. FINDINGS: No failure, pneumonia, or effusion. No pneumothorax. Impression No acute finding. CBC WITH DIFF Result Value Ref Range WBC 9.2 4.0 - 11.0 x10(3)/mcL RBC 5.10 3.80 - 5.10 x10(6)/mcL Hgb 14.5 12.0 - 15.6 gm/dL Hct 44.1 35.7 - 45.9 % MCV 86.6 82.5 - 99.8 fL MCH 28.5 27.0 - 34.3 pg MCHC 32.9 32.1 - 35.3 gm/dL RDW 13.3 11.5 - 15.0 % Platelet 298 144 - 423 x10(3)/mcL MPV 8.0 6.8 - 10.8 fL Neut Percent 53.0 % Lymph Percent 34.4 % [place] Percent 7.2 % Eos Percent 4.9 % Baso Percent 0.5 % Neut # 4.9 1.8 - 7.7 x10(3)/mcL Lymph # 3.2 0.6 - 4.8 x10(3)/mcL [place] # 0.7 0.0 - 1.3 x10(3)/mcL Eos# 0.5 0.0 - 0.5 x10(3)/mcL Baso # 0.0 0.0 - 0.2 x10(3)/mcL BASIC METABOLIC PANEL Result Value Ref Range Sodium 141 136 - 145 mmol/L Potassium 4.1 3.5 - 5.0 mmol/L Chloride 108 (H) 98 - 107 mmol/L Total CO2 14 (L) 22 - 29 mmol/L Anion Gap 19 (H) 7 - 16 mmol/L Calcium 9.1 8.6 - 10.2 mg/dL Glucose Lvl 79 74 - 100 mg/dL BUN 11 6 - 20 mg/dL Creatinine 0.77 0.51 - 1.30 mg/dL GFR Afr Am 116 mL/min/1.73 m2 GFR Non Afr Am 100 mL/min/1.73 m2 TROPONIN-T Result Value Ref Range Troponin-T <0.01 <0.01 ng/mL Narrative Values > or = 0.01 ng/mL have been shown to have prognostic value. D-DIMER Result Value Ref Range D-Dimer <230 <=230 ng/mL D-DU EK EKG 12 LEAD Narrative NOTICE: Preliminary tracing available for review; Final Interpretation by physician to follow. Impression Stationary ECG Study [facility] Interpretive Statements SINUS RHYTHM WITH SINUS ARRHYTHMIA INCOMPLETE RIGHT BUNDLE BRANCH BLOCK ED Course: Appropriate laboratory and radiology studies reviewed Patient presents to the emergency Department secondary to chest discomfort. Substernal chest discomfort is pressure-like in nature. She had mild shortness of breath. She does not have significant risk factor profile other than a mother who had a heart attack at the age of 32. Cardiac workup thus far negative. D- dimer negative. Patient chest pain-free in the emergency department. Case discussed with Dr. Brady of cardiology. Patient will be admitted to the CDU for further evaluation. ED Clinical Impression: Chest pain Critical Care time Condition at Discharge/Transfer from Department: Stable This chart was completed using voice recognition technology and may contain unintended errors Eros Gunter MD 04/22/17 0123 documented in this encounter Miscellaneous Notes * Utilization Review Notes - Michelle Hunt RN - 04/23/2017 8:43 AM EST UR note Cont stay review observation order observation CDU with chest pain Per cardiology Plan: Ok with d/c Will hold on asa given fact she has been told not to take it due to above Will consider eventual WAYNE and possible RHC as OP Pt with discharge order plan home today * Utilization Review Notes - Michelle Hunt RN - 04/22/2017 8:32 AM EST UR note Admission review observation order observation CDU from ed with chest pain Per cardiology 1. CP: Resolved, - no objective data c/w ACS -Trop < 0.01 x 3 -D Dimer < 230 -no ischemic EKG shifts -Low CV risk w exception of FH Plan: GXT Myoview Discharge plan pending medical stability current plan home documented in this encounter Plan of Treatment Upcoming Encounters Date Type Department Care Team (Late st Contact Info) Description 04/24/2024 10:45 AM EST Clinical Support [facility] [address] [place] [phone] documented as of this encounter Goals Goal Patient Goal Type Associated Problems Recent Progress Patient-Stated? Author Maintain a healthy diet, exercise regularly and maintain an ideal body weight General No Thea Rubio MD Stay Tobacco Free Lifestyle No Thea Rubio MD documented as of this encounter Procedures Procedure Name Priority Date/Time Associated Diagnosis Comments SCANNED RHYTHM STRIPS 04/25/2017 6:21 PM EST SCANNED EKG 04/23/2017 10:10 PM EST SCANNED RADIOLOGY REPORT 04/23/2017 8:[address] ANGIOGRAM CORONARY W CONTRAST JACK 04/22/2017 9:02 PM EST EC ECHOCARDIOGRAM EXERCISE STRESS W DOPPLER AND COLOR FLOW MAPPING Routine 04/22/2017 2:[address] STRESS TEST EXERCISE Routine 04/22/19 18 1:33 PM EST TROPONIN-T Timed 04/22/2017 6:57 AM EST TROPONIN-T STAT 04/22/2017 1:48 AM EST HEPATIC FUNCTION PANEL Add-On 8 1:48 AM EST LIPID SCREEN Add-On 04/22/2017 1:48 AM EST TROPONIN-T STAT 04/22/2017 12:14 AM EST D-DIMER STAT 04/22/2017 12:14 AM EST CBC WITH DIFF STAT 04/22/2017 12:14 AM EST BASIC METABOLIC PANEL STAT 04/22/2017 12:14 AM EST XR CHEST PA AND LATERAL JACK 04/21/19 18 10:37 PM EST EK EKG 12 LEAD STAT 04/21/2017 10:17 PM EST documented in this encounter Results * SCANNED RHYTHM STRIPS (04/25/2017 6:21 PM EST) Anatomical Region Laterality Modality Other 04/25/2017 6:21 PM EST us Unknown Unknown IMG ECG ORDERABLES Final Result * SCANNED EKG (04/23/2017 10:10 PM EST) Anatomical Region Laterality Modality Other 04/23/2017 10:1 0 PM EST us Unknown Unknown IMG ECG ORDERABLES Final Result * SCANNED RADIOLOGY REPORT (04/23/2017 8:09 AM EST) Anatomical Region Laterality Modality Other 04/23/2017 8:09 AM EST us Unknown Unknown IMG DIAGNOSTIC IMAGING ORDERABLE S Final Result * CT ANGIOGRAM CORONARY W CONTRAST (04/22/2017 9:02 PM EST) Anatomical Region Laterality Modality Chest Computed Tomogra phy 04/22/2017 9:02 PM EST Impressions 04/22/2017 9:40 PM EST No evidence of atherosclerotic disease but nondiagnostic due to failure to image segments of the proximal RIGHT coronary, LAD and circumflex. Note: Exam will be repeated if requested but unlikely to be diagnostic if heart rate cannot be significantly lowered. Narrative 04/22/2017 9:[address] CORONARY ARTERIES ??WITH CONTRAST ? INDICATIONS: Chest pain TECHNICAL: Patient administered 150 mg of Lopressor by mouth and 5 mg Valium during the examination. The patient then given 75 mL Isovue 370 intravenous contrast material. CCTA ??prospective gated technique utilized for coronary artery visualization and assessment. For optimization of anatomic evaluation, advanced 3-D off-line post-processing was ??performed. ??This included multi-planar reconstruction and maximum intensity projections. FINDINGS: CORONARY ARTERIES: LEFT MAIN: ??X Normal ?Mild narrowing, up to 24% ?Moderate narrowing, 25-49% ?Severe narrowing, 50% or greater ?Occlusion LAD: ? Normal ? Location of stenosis X proximal 1/3 ?mid 1/3 ?distal ?Minimal narrowing, 1-24% ?Mild narrowing,25-49% ?Moderate narrowing, 50-74% ?Severe narrowing, 75% or greater ?Occlusion ? CIRCUMFLEX: ? Normal ? Location of stenosis X proximal 1/3 ?mid 1/3 ?distal ?Minimal narrowing, 1-24% ?Mild narrowing,25-49% ?Moderate narrowing, 50-74% ?Severe narrowing, 75% or greater ?Occlusion ? RCA: ? Normal ? Location of stenosis X proximal 04/23 ?mid / ?distal ?Minimal narrowing, 1-24% ?Mild narrowing,25-49% ?Moderate narrowing, 50-74% ?Severe narrowing, 75% or greater ?Occlusion Heart rate was in sinus rhythm but too fast. As a result there are portions of proximal LAD, proximal circumflex and of the RIGHT coronary origin that were not imaged. Procedure Note Ulysses Ledesma MD - 04/22/2017 CT CORONARY ARTERIES WITH CONTRAST INDICATIONS: Chest pain TECHNICAL: Patient administered 150 mg of Lopressor by mouth and 5 mgValium during the examination. The patient then given 75 mL Isovue 370intravenous contrast material. CCTA prospective gated technique utilized forcoronary artery visualization and assessment. For optimization of anatomic evaluation, advanced 3-D [id number]-[id number] was performed. This included multi-planar reconstruction and maximumintensity projections. FINDINGS: CORONARY ARTERIES: LEFT MAIN: X Normal Mild narrowing, up to 24% Moderate narrowing, 25-49% Severe narrowing, 50% or greater Occlusion LAD: ? Normal Location of stenosis X proximal 1/3 mid 1/3distal Minimal narrowing, 1-24% Mild narrowing,25-49% Moderate narrowing, 50-74% Severe narrowing, 75% or greater Occlusion CIRCUMFLEX: ? Normal Location of stenosis X proximal 1/3 mid 1/3distal Minimal narrowing, 1-24% Mild narrowing,25-49% Moderate narrowing, 50-74% Severe narrowing, 75% or greater Occlusion RCA: ? Normal Location of stenosis X proximal 1/3 mid 1/3distal Minimal narrowing, 1-24% Mild narrowing,25-49% Moderate narrowing, 50-74% Severe narrowing, 75% or greater Occlusion Heart rate was in sinus rhythm but too fast. As a result there areportions of proximal LAD, proximal circumflex and of the RIGHT coronary origin thatwere not imaged. IMPRESSION: No evidence of atherosclerotic disease but nondiagnostic due to failure to image segments of the proximal RIGHT coronary, LAD andcircumflex. Note: Exam will be repeated if requested but unlikely to be diagnostic ifheart rate cannot be significantly lowered. us Migue Anne MD IM CT ORDERABLES Final Result * EC ECHOCARDIOGRAM EXERCISE STRESS W DOPPLER AND COLOR FLOW MAPPING (04/22/2017 2:59 PM EST) [facility] Ejection Fraction 60-65 % PYRAMIS Anatomical Region Laterality Modality Cardiac Stress T esting 04/22/2017 1:48 PM EST Impressions 04/22/2017 3:04 PM EST ??CONCLUSIONS ??Normal global left ventricular size, wall thickness, systolic function with no obvious regional wall motion abnormalities at rest. ?Normal resting echocardiogram. ?Mild right ventricular dilatation. ?Prominent right atrial size. ?Sfht-fj-vfqyi shunt seen at the atrial level. ??Shunt max velocity is 161 cm/s. Max PG 10 mmHg, mean PG 5 mmHg. ??No tricuspid stenosis. Mild tricuspid regurgitation. ?Right ventricular systolic pressure estimated at 19 mmHg. ?No echocardiographic evidence of myocardial ischemia. ?The global left ventricular systolic function improved with stress. ?? Narrative Procedure Note Anderson Sigala MD - 04/22/2017 IMPRESSION CONCLUSIONS Normal global left ventricular size, wall thickness, systolic functionwith no obvious regional wall motion abnormalities at rest. Normal resting echocardiogram. Mild right ventricular dilatation. Prominent right atrial size. Yfoq-ph-blipz shunt seen at the atrial level. Shunt max velocity is 161cm/s. Max PG 10 mmHg, mean PG 5 mmHg. No tricuspid stenosis. Mild tricuspid regurgitation. Right ventricular systolic pressure estimated at 19 mmHg. No echocardiographic evidence of myocardial ischemia. The global left ventricular systolic function improved with stress. us Elver Jones APRN IMG ECHO ORDERABLES Final Resu lt * ST STRESS TEST EXERCISE (04/22/2017 1:33 PM EST) Anatomical Region Laterality Modality Cardiac Stress T esting 04/22/2017 1:33 PM EST Impressions 04/22/2017 2:50 PM EST ? Exercise ECG Report ?[facility] ? Interpretive Statements ? Type of Test: Exercise Reason for Exam: chest pain Ordering Diagnosis: chest pain Resting HR: 73 ?Peak HR: 167 Resting B/P : 104/72 ?? Peak B/P : 139/71 1. METS achieved : 9.8 2. WALKED 9:16 MINUTES ON FULL JOSEE PROTOCOL 3. Target HR achieved : Yes / HEART RATE : 167 4. Termination of test due to : Reached THR,+SOB 5. Symptoms: + SOB 6. Imaging pending : yes / Echo good exercise tolerance neg gxt ekg. Electronically Signed On 04-22-2017 14:52:35 EST by Anderson Sigala MD Electronically Signed On 04-22-2017 16:32:35 EST by Administratively Closed Narrative Procedure Note Anderson Sigala MD - 04/22/2017 IMPRESSION Exercise ECG Report [facility] Interpretive Statements Type of Test: Exercise Reason for Exam: chest pain Ordering Diagnosis: chest pain Resting HR: 73 Peak HR: 167 Resting B/P : 104/72 Peak B/P : 139/71 1. METS achieved : 9.8 2. WALKED 9:16 MINUTES ON FULL JOSEE PROTOCOL 3. Target HR achieved : Yes / HEART RATE : 167 4. Termination of test due to : Reached THR,+SOB 5. Symptoms: + SOB 6. Imaging pending : yes / Echo good exercise tolerance neg gxt ekg. Electronically Signed On 04-22-2017 14:52:35 EST by Anderson Sigala MD Electronically Signed On 04-22-2017 16:32:35 EST by AdministrativelyClosed Elver Jones APRN IM STRESS ORDERABLES Edited R esult - Final * TROPONIN-T (04/22/2017 6:57 AM EST) Troponin-T <0.01 <0.01 ng/mL 04/22/2017 7:47 AM EST [facility] Blood VENOUS BLOOD / Unknown Venipuncture / Unknown 04/22/2017 6:57 AM EST 04/22/2017 7:04 AM EST Narrative [facility] - 04/22/2017 7:47 AM EST Values > or = 0.01 ng/mL have been shown to have prognostic value. us Eros uGnter MD CHEMISTRY ORDERABLES Final Resul t Performing Organization Address [facility] de Phone Number [facility] [address] [place] [address] * HEPATIC FUNCTION PANEL (04/22/2017 1:48 AM EST) Total Protein 7.0 6.4 - 8.3 gm/dL 04/22/2017 10:46 AM EST [facility] Albumin 4.2 3.5 - 5.2 gm/dL 04/22/2017 10:46 AM EST [facility] Bili Direct <0.2 0.0 - 0.3 mg/dL 04/22/2017 10:46 AM EST [facility] Bili Total 0.3 0.1 - 1.3 mg/dL 04/22/2017 10:46 AM EST [facility] AST 22 <=40 IU/L 04/22/2017 10:46 AM EST [facility] ALT 14 <=41 IU/L 04/22/2017 10:46 AM EST [facility] Alk Phos 64 35 - 104 IU/L 04/22/2017 10:46 AM EST [facility] Blood VENOUS BLOOD / Unknown Venipuncture / Unknown 04/22/2017 1:48 AM EST 04/22/2017 1:53 AM EST us Elver Jones APRN CHEMISTRY ORDERABLES Final Res ult Performing Organization Address [facility] Co de Phone Number [facility] [address] [place] [address] * LIPID SCREEN (04/22/2017 1:48 AM EST) Cholesterol 151 <=200 mg/dL 04/22/2017 10:40 AM EST [facility] Comment: < 200 ?Desirable 200 - 239 ? Borderline High >= 240 ?High Triglyceride 72 <=150 mg/dL 04/22/2017 10:40 AM EST [facility] Comment: < 150 ? Normal 150 - 199 ?Borderline High 200 - 499 ?High ??>= 500 ? Very High HDL 63 >=40 mg/dL 04/22/2017 10:40 AM EST [facility] Comment: ??> 60 ?Optimal 40 - 60 ?Acceptable ?? < 40 ?Low LDL Calculated 74 <=100 mg/dL 04/22/2017 10:40 AM EST [facility] Comment: < 100 ?Optimal 100 - 129 ? Near or above optimal 130 - 159 ? Borderline High 160 - 189 ? High >= 190 ?Very High Blood VENOUS BLOOD / Unknown Venipuncture / Unknown 04/22/2017 1:48 AM EST 04/22/2017 1:53 AM EST us Elver Jones APRN CHEMISTRY ORDERABLES Final Res ult Performing Organization Address [facility] [place] [address] * TROPONIN-T (04/22/2017 1:48 AM EST) Troponin-T <0.01 <0.01 ng/mL 04/22/2017 2:15 AM EST [facility] Blood VENOUS BLOOD / Unknown Venipuncture / Unknown 04/22/2017 1:48 AM EST 04/22/2017 1:53 AM EST Narrative [facility] - 04/22/2017 2:15 AM EST Values > or = 0.01 ng/mL have been shown to have prognostic value. us Eros Gunter MD CHEMISTRY ORDERABLES Final Resul t Performing Organization Address [facility] [place] [address] * D-DIMER (04/22/2017 12:14 AM EST) D-Dimer <230 <=230 ng/mL D-DU 04/22/2017 12:48 AM EST [facility] Comment: This test has been clinically validated by the centrifugal separator and approved by the FDA for exclusion [...] VENOUS BLOOD / Unknown Venipuncture / Unknown 04/22/2017 12:14 AM EST 04/22/2017 12:18 AM EST Eros Gunter MD HEMATOLOGY ORDERABLES Final Resu lt Performing Organization Address [facility] [place] [address] * TROPONIN-T (04/22/2017 12:14 AM EST) Troponin-T <0.01 <0.01 ng/mL 04/22/2017 1:11 AM EST [facility] Blood VENOUS BLOOD / Unknown Venipuncture / Unknown 04/22/2017 12:14 AM EST 04/22/2017 12:18 AM EST Narrative [facility] - 04/22/2017 1:11 AM EST Values > or = 0.01 ng/mL have been shown to have prognostic value. Eros Gunter MD CHEMISTRY ORDERABLES Final Resul t Performing Organization Address [facility] Co de Phone Number [facility] [address] [place] [address] * (ABNORMAL) BASIC METABOLIC PANEL (04/22/2017 12:14 AM EST) Sodium 141 136 - 145 mmol/L 04/22/2017 1:16 AM EST [facility] Potassium 4.1 3.5 - 5.0 mmol/L 04/22/2017 1:16 AM EST [facility] Chloride 108(H) 98 - 107 mmol/L 04/22/2017 1:16 AM EST [facility] Total CO2 14(L) 22 - 29 mmol/L 04/22/2017 1:16 AM [facility] Anion Gap 19(H) 7 - 16 mmol/L 04/22/2017 1:16 AM [facility] Calcium 9.1 8.6 - 10.2 mg/dL 04/22/2017 1:16 AM [facility] Glucose Lvl 79 74 - 100 mg/dL 04/22/2017 1:16 AM [facility] BUN 11 6 - 20 mg/dL 04/22/2017 1:16 AM [facility] Creatinine 0.77 0.51 - 1.30 mg/dL 04/22/2017 1:16 AM [facility] GFR Afr Am 116 mL/min/1.7 3 m2 04/22/2017 1:16 AM [facility] GFR Non Afr Am 100 mL/min/1.7 3 m2 04/22/2017 1:16 AM [facility] Comment: GFR Afr Am and GFR Non [...] VENOUS BLOOD / Unknown Venipuncture / Unknown 04/22/2017 12:14 AM EST 04/22/2017 12:18 AM EST us Eros Gunter MD CHEMISTRY ORDERABLES Final Resul t [facility] [address] [place] [address] * CBC WITH DIFF (04/22/2017 12:14 AM EST) WBC 9.2 4.0 - 11.0 x10(3)/mcL 04/22/2017 12:36 AM [facility] RBC 5.10 3.80 - 5.10 x10(6)/mcL 04/22/2017 12:36 AM [facility] Hgb 14.5 12.0 - 15.6 gm/dL 04/22/2017 12:36 AM [facility] Hct 44.1 35.7 - 45.9 % 04/22/2017 12:36 AM [facility] MCV 86.6 82.5 - 99.8 fL 04/22/2017 12:36 AM [facility] MCH 28.5 27.0 - 34.3 pg 04/22/2017 12:36 AM [facility] MCHC 32.9 32.1 - 35.3 gm/dL 04/22/2017 12:36 AM [facility] RDW 13.3 11.5 - 15.0 % 04/22/2017 12:36 AM [facility] Platelet 298 144 - 423 x10(3)/mcL 04/22/2017 12:36 AM [facility] MPV 8.0 6.8 - 10.8 fL 04/22/2017 12:36 AM [facility] Neut Percent 53.0 % 04/22/2017 12:36 AM [facility] Lymph Percent 34.4 % 04/22/2017 12:36 AM EST [facility] [place] Percent 7.2 % 04/22/2017 12:36 AM EST [facility] Eos Percent 4.9 % 04/22/2017 12:36 AM EST [facility] Baso Percent 0.5 % 04/22/2017 12:36 AM EST [facility] Neut # 4.9 1.8 - 7.7 x10(3)/[facility] 04/22/2017 12:36 AM EST [facility] Lymph # 3.2 0.6 - 4.8 x10(3)/[facility] 04/22/2017 12:36 AM EST [facility] [place] # 0.7 0.0 - 1.3 x10(3)/[facility] 04/22/2017 12:36 AM EST [facility] Eos# 0.5 0.0 - 0.5 x10(3)/[facility] 04/22/2017 12:36 AM EST [facility] Baso # 0.0 0.0 - 0.2 x10(3)/[facility] 04/22/2017 12:36 AM EST [facility] Blood VENOUS BLOOD / Unknown Venipuncture / Unknown 04/22/2017 12:14 AM EST 04/22/2017 12:18 AM EST us Eros Gunter MD HEMATOLOGY ORDERABLES Final Resu lt Performing Organization Address City/State/[facility] Co de Phone Number [facility] [address] [place] [address] * XR CHEST PA AND LATERAL (04/21/2017 10:37 PM EST) Anatomical Region Laterality Modality Chest Radiographic Kristi ging 04/21/2017 10:3 7 PM EST Impressions 04/21/2017 10:49 PM EST No acute finding. Narrative 04/21/2017 10:49 PM EST PA AND LATERAL CHEST X-RAY, ??04/21/2017 10:37 PM CLINICAL HISTORY: ??-CHEST PAIN COMPARISON: ??06/11/2015 PROCEDURE COMMENTS: Frontal and lateral views of the chest. FINDINGS: No failure, pneumonia, or effusion. No pneumothorax. Procedure Note Omar Loredo MD - 04/21/2017 PA AND LATERAL CHEST X-RAY, 04/21/2017 10:37 PM CLINICAL HISTORY: -CHEST PAIN COMPARISON: 06/11/2015 PROCEDURE COMMENTS: Frontal and lateral views of the chest. FINDINGS: No failure, pneumonia, or effusion. No pneumothorax. IMPRESSION: No acute finding. us Eros Gunter MD IMG DIAGNOSTIC IMAGING ORDERABLE S Final Result * EK EKG 12 LEAD (04/21/2017 10:17 PM EST) Anatomical Region Laterality Modality Electrocardiogra phy 04/21/2017 10:2 2 PM EST Impressions 04/22/2017 8:37 AM EST ? [facility] ? Interpretive Statements ? SINUS RHYTHM WITH SINUS ARRHYTHMIA INCOMPLETE RIGHT BUNDLE BRANCH BLOCK Electronically Signed On 04-22-2017 8:37:18 EST by Callum Hernandez MD Narrative Procedure Note Callum Hernandez MD - 04/22/2017 IMPRESSION Stationary ECG Study [facility] Interpretive Statements SINUS RHYTHM WITH SINUS ARRHYTHMIA INCOMPLETE RIGHT BUNDLE BRANCH BLOCK Electronically Signed On 04-22-2017 8:37:18 EST by Callum Hernnadez MD Eros Gunter MD IMG ECG ORDERABLES Final Result documented in this encounter Visit Diagnoses Diagnosis Chest pain, unspecified type- Primary Precordial pain documented in this encounter Administered Medications Inactive Administered Medications - up to 1 most recent administrations Medication Order MAR Action Action Date Dose Rate Site aluminum & magnesium hydroxide-simethicone 200-200-20 mg/5 mL suspension 30 mL 30 mL, Oral, EVERY 6 HOURS PRN, Starting on Fri04/22/17 at 0221, Until Fri04/23/17 at 1307, Indigestion, Shake well. diazePAM (VALIUM) tablet 5 mg 5 mg, Oral, ONCE PRN, 1 dose, Starting on Fri04/22/17 at 1726, Until Fri04/22/17 at 1903, Anxiety, May give if patient anxious or claustrophobic, Pre-procedure(IR) Given 04/22/2017 7:03 PM EST 5 mg diphenhydrAMINE (BENADRYL) tablet 25 mg 25 mg, Oral, NIGHTLY PRN, Starting on Fri04/22/17 at 0221, Until Fri04/23/17 at 1307, Sleep HYDROmorphone (DILAUDID) injection 1 mg 1 mg, Intramuscular, ONCE, 1 dose, On Fri04/22/17 at 0100 Given 04/22/2017 1:17 AM EST 1 mg Left Upper Outer Quadrant iopamidol (ISOVUE-370) 76 % injection (LOW) 75 mL 75 mL, Intravenous, ONCE PRN, 1 dose, Starting on Fri04/22/17 at 2040, Until Fri04/22/17 at 2107, Radiology Procedure, VESICANT , CT (Contrasts) Given 04/22/2017 9:07 PM EST 75 mL labetalol (NORMODYNE,TRANDATE) injection 10 mg 10 mg, Intravenous, EVERY 5 MIN PRN, Starting on Fri04/22/17 at 0221, Until Fri04/23/17 at 1307, High Blood Pressure, for SBP greater than 180, Administer IV push. Hold for HR less than 60 and notify physician. LORazepam (ATIVAN) tablet 1 mg 1 mg, Oral, EVERY 4 HOURS PRN, Starting on Fri04/22/17 at 0221, Until Fri04/23/17 at 1307, Anxiety, Restlessness, May give for up to 48 hours. metoclopramide HCl (REGLAN) injection 10 mg 10 mg, Intravenous, EVERY 6 HOURS PRN, Starting on Fri04/22/17 at 0221, Until Fri04/23/17 at 1307, Nausea metoprolol (LOPRESSOR) injection 5 mg 5 mg, Intravenous, EVERY 5 MIN PRN, 3 doses, Starting on Fri04/22/17 at 1726, Until Fri04/23/17 at 1307, Other, HR is 65 or greater in CDU/Radiology and systolic B/P is 100 or greater, After patient in CDU/Radiology, if HR is 65 or greater and systolic B/P above or equal to 100, give metoprolol (LOPRESSOR) injection every 5 minutes for up to a total of 3 doses, Pre-procedure(IR) metoprolol (LOPRESSOR) tablet 100 mg 100 mg, Oral, ONCE PRN, 1 dose, Starting on Fri04/22/17 at 1726, Until Fri04/22/17 at 1747, Pre-procedure if HR greater than or equal to 60 and SBP above or equal to 100, If heart rate is equal to or greater than 60 and systolic B/P is equal to or greater than 100, give metoprolol 100 mg PO one hour prior to scan (CT to call with scheduled time)., Pre-procedure(IR) Given 04/22/2017 5:47 PM EST 100 mg metoprolol (LOPRESSOR) tablet 50 mg 50 mg, Oral, ONCE PRN, 1 dose, Starting on Fri04/22/17 at 1726, Until Fri04/22/17 at 1842, Pre-procedure if HR 56-59 and SBP above or equal to 100, For heart rate 56-59 and systolic B/P equal to or greater than 100, give metoprolol (LOPRESSOR) 50 mg PO one hour prior to scan (CT to call with scheduled time), Pre-procedure(IR) Given 04/22/2017 6:42 PM EST 50 mg nitroGLYCERIN (NITROSTAT) SL tablet 0.4 mg 0.4 mg, Sublingual, EVERY 5 MIN PRN, 4 doses, Starting on Fri04/22/17 at 0221, Until Fri04/23/17 at 1307, Chest pain, May repeat 3 times. Notify physician is pain not relieved. Hold if SBP less than 90. Administer for angina/chest pain prior to administration of analgesics for angina. ondansetron (ZOFRAN) injection 4 mg 4 mg, Intramuscular, ONCE, 1 dose, On Fri04/22/17 at 0015 Given 04/22/2017 1:17 AM EST 4 mg Left Upper Outer Quadrant sodium chloride 0.9% IV line flush 20-50 mL 20-50 mL, Intravenous, at 150-600 mL/hr, PRN, Starting on Fri04/22/17 at 0221, Until Fri04/23/17 at 1307, Line Care, Flush with a minimum of 20 mL after IVPB to insure complete administration of the dose. May use the saline infusion to back flush IVPB tubing as needed. sodium chloride 0.9% IV line flush 50 mL 50 mL, Intravenous, at 150-600 mL/hr, PRN, Starting on Fri04/21/17 at 2217, Until Fri04/23/17 at 1307, Line Care, Flush with a minimum of 20 mL after IVPB to insure complete administration of the dose. May use the saline infusion to back flush IVPB tubing as needed., Use this order to document priming and flushing IV line after medication administration. sodium chloride 0.9% syringe 5 mL 5 mL, Intravenous, PRN, Starting on Fri04/21/17 at 2217, Until Fri04/23/17 at 1307, Line Care, Flush with 5 mL saline pre/post IVP, and 5 mL prior to IVPB or blood product administration. Protocol for PERIPHERAL IV saline lock maintenance, flush with 3-5 mL saline syringe every 8 hours., Flush every shift or after IV medication sodium chloride 0.9% syringe 50-100 mL 50-100 mL, Intravenous, ONCE PRN, 1 dose, Starting on Fri04/22/17 at 2040, Until Fri04/22/17 at 2107, Line Care, Use for drug dilution, Flush every shift or after IV medication, CT (Contrasts) Given 04/22/2017 9:07 PM EST 100 mL sodium chloride 0.9% syringe Intravenous, EVERY 8 HOURS SCHEDULED (3 times per day), First dose on Fri04/22/17 at 0600, Until Discontinued, Flush with 3-5 mL saline for PERIPHERAL saline lock maintenance. Given 04/23/2017 6:41 AM EST 10 mL sodium chloride 0.9% syringe Intravenous, PRN, Starting on Fri04/22/17 at 0221, Until Fri04/23/17 at 1307, Line Care, Flush with 5-10 mL saline pre/post IVP, and 5 mL prior to IVPB or blood product administration. sodium chloride 0.9% syringe Intravenous, ONCE PRN, 1 dose, Starting on Fri04/22/17 at 2040, Until Fri04/22/17 at 2108, Line Care, Flush every shift or after IV medication, CT (Contrasts) Given 04/22/2017 9:08 PM EST zolpidem (AMBIEN) tablet 5 mg 5 mg, Oral, NIGHTLY PRN, Starting on Fri04/22/17 at 0221, Until Fri04/23/17 at 1307, Sleep, Hold for age greater than 70 years documented in this encounter Active and Recently Administered Medications Times are shown in EST. Scheduled Medication Order 04/21/2017 04/22/2017 04/23/2017 HYDROmorphone (DILAUDID) injection 1 mg (COMPLETED) 1 mg, Intramuscular, ONCE, 1 dose, On Fri04/22/17 at 0100 0117 (Given - Provider: Jayne Delcid, IVETTE) ondansetron (ZOFRAN) injection 4 mg (COMPLETED) 4 mg, Intramuscular, ONCE, 1 dose, On Fri04/22/17 at 0015 0117 (Given - Provider: Jayne Delcid RN) sodium chloride 0.9% syringe Intravenous, EVERY 8 HOURS SCHEDULED (3 times per day), First dose on Fri04/22/17 at 0600, Until Discontinued, Flush with 3-5 mL saline for PERIPHERAL saline lock maintenance. 0600 (Not Given - Provider: Julissa Brown RN - Reason: Loss of IV access - Comment: pt has no IV access)1400 (Not Given - Provider: Kris Bruce RN - Reason: Patient not available)2325 (Given - Provider: Julissa Brown RN) 0641 (Given - Provider: Julissa Brown RN) PRN Medication Order 04/21/2017 04/22/2017 04/23/2017 aluminum & magnesium hydroxide-simethicone 200-200-20 mg/5 mL suspension 30 mL 30 mL, Oral, EVERY 6 HOURS PRN, Starting on Fri04/22/17 at 0221, Until Fri04/23/17 at 1307, Indigestion, Shake well. diazePAM (VALIUM) tablet 5 mg (COMPLETED) 5 mg, Oral, ONCE PRN, 1 dose, Starting on Fri04/22/17 at 1726, Until Fri04/22/17 at 1903, Anxiety, May give if patient anxious or claustrophobic, Pre-procedure(IR) 190 (Given - Provider: Jin Bruce RN) diphenhydrAMINE (BENADRYL) tablet 25 mg 25 mg, Oral, NIGHTLY PRN, Starting on Fri04/22/17 at 0221, Until Fri04/23/17 at 1307, Sleep iopamidol (ISOVUE-370) 76 % injection (LOW) 75 mL (COMPLETED) 75 mL, Intravenous, ONCE PRN, 1 dose, Starting on Fri04/22/17 at 2040, Until Fri04/22/17 at 2107, Radiology Procedure, VESICANT , CT (Contrasts) 2106 (Given - Provider: Ramez Rodrigez, RT) labetalol (NORMODYNE,TRANDATE) injection 10 mg 10 mg, Intravenous, EVERY 5 MIN PRN, Starting on Fri04/22/17 at 0221, Until Fri04/23/17 at 1307, High Blood Pressure, for SBP greater than 180, Administer IV push. Hold for HR less than 60 and notify physician. LORazepam (ATIVAN) tablet 1 mg 1 mg, Oral, EVERY 4 HOURS PRN, Starting on Fri04/22/17 at 0221, Until Fri04/23/17 at 1307, Anxiety, Restlessness, May give for up to 48 hours. metoclopramide HCl (REGLAN) injection 10 mg 10 mg, Intravenous, EVERY 6 HOURS PRN, Starting on Fri04/22/17 at 0221, Until Fri04/23/17 at 1307, Nausea metoprolol (LOPRESSOR) injection 5 mg 5 mg, Intravenous, EVERY 5 MIN PRN, 3 doses, Starting on Fri04/22/17 at 1726, Until Fri04/23/17 at 1307, Other, HR is 65 or greater in CDU/Radiology and systolic B/P is 100 or greater, After patient in CDU/Radiology, if HR is 65 or greater and systolic B/P above or equal to 100, give metoprolol (LOPRESSOR) injection every 5 minutes for up to a total of 3 doses, Pre-procedure(IR) metoprolol (LOPRESSOR) tablet 100 mg (COMPLETED) 100 mg, Oral, ONCE PRN, 1 dose, Starting on Fri04/22/17 at 1726, Until Fri04/22/17 at 1747, Pre-procedure if HR greater than or equal to 60 and SBP above or equal to 100, If heart rate is equal to or greater than 60 and systolic B/P is equal to or greater than 100, give metoprolol 100 mg PO one hour prior to scan (CT to call with scheduled time)., Pre-procedure(IR) 1747 (Given - Provider: Jin Bruce RN) metoprolol (LOPRESSOR) tablet 50 mg (COMPLETED) 50 mg, Oral, ONCE PRN, 1 dose, Starting on Fri04/22/17 at 1726, Until Fri04/22/17 at 1842, Pre-procedure if HR 56-59 and SBP above or equal to 100, For heart rate 56-59 and systolic B/P equal to or greater than 100, give metoprolol (LOPRESSOR) 50 mg PO one hour prior to scan (CT to call with scheduled time), Pre-procedure(IR) 184 (Given - Provider: Jin Bruce RN) nitroGLYCERIN (NITROSTAT) SL tablet 0.4 mg 0.4 mg, Sublingual, EVERY 5 MIN PRN, 4 doses, Starting on Fri04/22/17 at 0221, Until Fri04/23/17 at 1307, Chest pain, May repeat 3 times. Notify physician is pain not relieved. Hold if SBP less than 90. Administer for angina/chest pain prior to administration of analgesics for angina. sodium chloride 0.9% IV line flush 20-50 mL 20-50 mL, Intravenous, at 150-600 mL/hr, PRN, Starting on Fri04/22/17 at 0221, Until Fri04/23/17 at 1307, Line Care, Flush with a minimum of 20 mL after IVPB to insure complete administration of the dose. May use the saline infusion to back flush IVPB tubing as needed. sodium chloride 0.9% IV line flush 50 mL 50 mL, Intravenous, at 150-600 mL/hr, PRN, Starting on Fri04/21/17 at 2217, Until Fri04/23/17 at 1307, Line Care, Flush with a minimum of 20 mL after IVPB to insure complete administration of the dose. May use the saline infusion to back flush IVPB tubing as needed., Use this order to document priming and flushing IV line after medication administration. sodium chloride 0.9% syringe 5 mL 5 mL, Intravenous, PRN, Starting on Fri04/21/17 at 2217, Until Fri04/23/17 at 1307, Line Care, Flush with 5 mL saline pre/post IVP, and 5 mL prior to IVPB or blood product administration. Protocol for PERIPHERAL IV saline lock maintenance, flush with 3-5 mL saline syringe every 8 hours., Flush every shift or after IV medication sodium chloride 0.9% syringe 50-100 mL (COMPLETED) 50-100 mL, Intravenous, ONCE PRN, 1 dose, Starting on Fri04/22/17 at 2040, Until Fri04/22/17 at 2107, Line Care, Use for drug dilution, Flush every shift or after IV medication, CT (Contrasts) 2106 (Given - Provider: Ramez Rodrigez, RT) sodium chloride 0.9% syringe Intravenous, PRN, Starting on Fri04/22/17 at 0221, Until Fri04/23/17 at 1307, Line Care, Flush with 5-10 mL saline pre/post IVP, and 5 mL prior to IVPB or blood product administration. sodium chloride 0.9% syringe (COMPLETED) Intravenous, ONCE PRN, 1 dose, Starting on Fri04/22/17 at 2040, Until Fri04/22/17 at 2108, Line Care, Flush every shift or after IV medication, CT (Contrasts) 2107 (Given - Provider: Ramez Rodrigez, RT) zolpidem (AMBIEN) tablet 5 mg 5 mg, Oral, NIGHTLY PRN, Starting on Fri04/22/17 at 0221, Until Fri04/23/17 at 1307, Sleep, Hold for age greater than 70 years documented in this encounter Orders Medications Ordered That Jair ht Not Have Been Administered Count Last Ordered Date First Ordered Date aluminum & magnesium hydroxi de-simethicone 200-200-20 mg/5 mL suspension 30 mL 1 04/22/2017 diphenhydrAMINE (BENADRYL) tablet 25 mg 1 0 04/22/2017 HYDROmorphone (DILAUDID) injection 1 mg 1 0 04/22/2017 labetalol (NORMODYNE,TRANDAT E) injection 10 mg 1 04/22/2017 LORazepam (ATIVAN) tablet 1 mg 1 04/22/2017 metoclopramide HCl (REGLAN) injection 10 mg 1 04/22/2017 metoprolol (LOPRESSOR) injection 5 mg 2 05/2017 morphine injection 8 mg 1 04/22/2017 nitroGLYCERIN (NITROSTAT) SL tablet 0.4 mg 3 04/22/2017 sodium chloride 0.9% IV line flush 20-50 mL 1 04/22/2017 sodium chloride 0.9% syringe 1 04/22/2017 zolpidem (AMBIEN) tablet 5 mg 1 04/22/2017 sodium chloride 0.9% IV line flush 50 mL 1 04/21/2017 sodium chloride 0.9% syringe 5 mL 1 018 Nursing Count Last Ordered Date First Orde red Date ADMISSION 04/22/2017 ED ENTER ADMISSION ORDER 1 04/22/2017 Transfer Count Last Ordered Date First Orde red Date BED REQUEST 1 04/22/2017 documented in this encounter Care Teams Bindery Production Manager Relationship Specialty Start Date End Date Thea Rubio MD PCP - General Family Medicine 09/13/14 07/16/22 documented as of this encounter
--- OUTSIDE RECORDS SUMMARY | 2024-03-14 18:22 | XMS_ITS | Encounter Summary ---
Author Organization [place] [address] Care Team Providers Care Refrigerator Assembler Name Role Phone Thea Rubio MD Primary Care Provider [phone] Reason for Visit * Reason Onset Date Comments Hospital Follow Up 04/24/2017 Care Management - Chart Review 04/24/2017 Encounter Details Date Type Department Care Team (Late st Contact Info) Description 04/24/2017 Patient Outreach [facility] [address] [place] [address] Thea Rubio MD [address] [place], [place] [id number] Hospital Follow Up; Care Management - Chart Review Social History [...] Progress Notes * Sparkle Ghotra MA - 04/24/2017 2:53 PM EST 1st attempt today 04/24/17 at 1115 am 2nd attempt at 245 p [address] documented in this encounter Plan of Treatment Upcoming Encounters Date Type Department Care Team (Late st Contact Info) Description 04/24/2024 10:45 AM EST Clinical Support [facility] [address] [place] [id number] documented as of this encounter Goals Goal Patient Goal Type Associated Problems Recent Progress Patient-Stated? Author Maintain a healthy diet, exercise regularly and maintain an ideal body weight General No Thea Rubio MD Stay Tobacco Free Lifestyle No Thea Rubio MD documented as of this encounter Visit Diagnoses Not on filedocumented in this encounter Care Teams Refrigerator Assembler Relationship Specialty Start Date End Date Thea Rubio MD PCP - General Family Medicine 09/13/14 07/16/22 documented as of this encounter
--- OUTSIDE RECORDS SUMMARY | 2024-03-14 18:22 | XMS_ITS | Encounter Summary ---
Author Organization [employer] [place] [address] Care Team Providers Care Sample Grader Name Role Phone Thea Rubio MD Primary Care Provider [phone] Reason for Visit * Reason Comments Gynecologic Exam Encounter Details Date Type Department Care Team (Late st Contact Info) Description 09/26/2015 10:00 AM EDT Office Visit [facility] [address] [place] [address] Thea Rubio MD [address] [place] [id number] Visit for gynecologic examination (Primary Dx); Well adult exam; Abnormal menstrual cycle; Need for iskdbdodio-vjgrqan-dt rtussis (Tdap) vaccine, adult/adolescent Social History Tobacco Use Types Packs/Day Years [...] Sign Reading Time Taken Comments Blood Pressure 122/80 09/26/2015 9:49 AM EDT Pulse 80 09/26/2015 9:49 AM EDT Temperature 36.6 ??C (97.8 ??F) 09/26/2015 9:49 AM ED T Respiratory Rate - - Oxygen Saturation - - Inhaled Oxygen Concentration - - Weight 83.3 kg (183 lb 9.6 oz) 09/26/2015 9:49 A M EDT Height 167.6 cm (5' 6 ) 09/26/2015 9:49 AM EDT Body Mass Index 29.63 09/26/2015 9:49 AM EDT documented in this encounter Progress Notes * hTea Rubio MD - 09/26/2015 10:12 AM EDT Subjective: Patient ID: Gardenia Childress is a 35 y.o. female. Chief Complaint Patient presents with ??? Gynecologic Exam HPI: Patients past medical, family and social histories were reviewed and updated. There were no changesexcept as noted. No hx abnl pap. Does get home comfort advisor ck yearly as pt has had ovarian and uterine CA. Mom had some type home comfort advisor pre-CA cells. Has menses monthly, very regular, usually light and bleeds 3 days. Menses in July 2015, came 2 d early, and menses was very light like spotting for 3 days, then off menses for 3 days, then spotting for 3 days, and repeat of cycle for 2 total wks. Menses finally stopped. In August 2015, menses on timebut was very heavy, lasted 5 days. Due to start at end September 2015. 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 Anticipated last day work was September 14 but it got delayed. Pt has known re this loss of job in Apr 2015. Now, pt is just waiting for company to close and pt to lose job. 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 Hasn't looked for another job. 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 Doesn't do BSE herself but hasn't found any lumps. No chance of . Lots sinus drainage lately. As kid, was allergic to grass and few other pos tests. Patient Active Problem List Diagnosis Date Noted ??? 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 Migraine without aura 09/13/2014 ??? Obesity 09/13/2014 Past Medical History Diagnosis Date ??? 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 Biliary atresia ??? Migraines Past Surgical History Procedure Laterality Date ??? Abdomen surgery as , with CCX, Appy for bile duct ??? Appendectomy couple mos old ??? Cholecystectomy couple mos old. Outpatient Prescriptions Marked as Taking for the 09/26/15 encounter (Office Visit) with Thea Rubio MD Medication Sig Dispense Refill ??? albuterol (PROVENTIL HFA;VENTOLIN HFA) 90 mcg/actuation Inhl HFA Aerosol Inhaler Inhale 1-2 Puffs into the lungs every 6 hours as needed for Wheezing. 1 Inhaler 0 ??? dicyclomine (BENTYL) 10 mg Oral Capsule Take 10 mg by mouth 4 times daily as needed (for crampsafter menses). ??? SUMAtriptan (IMITREX) 25 mg tablet Take by mouth as needed for Migraine. ??? topiramate (TOPAMAX) 50 mg Oral Tablet Take 1 Tab by mouth 2 times daily. May add extra pill atnight when having migraine flares. 270 Tab 1 ??? traMADol (ULTRAM) 50 mg Oral Tablet Take 1 Tab by mouth every 6 hours as needed for Pain. 20 Tab 0 Allergies Allergen Reactions ??? Aspirin Not sure of rxn. ??? Morphine Nausea And Vomiting History Substance Use Topics ??? Smoking status: Former Smoker -- 0.50 packs/day for .2 years Quit date: 04/21/1994 ??? Smokeless tobacco: Never Used ??? Alcohol Use: No Comment: 2-3 drink every 3-4 mos. Family History Problem Relation Age of Onset ??? Diabetes Mother ??? Heart Disease Mother ??? High Blood Pressure Mother ??? Cancer Sister 32 ovarian and uterine ??? Cancer Paternal Aunt uterine ??? Cancer Paternal Uncle ? type ??? Cancer Maternal Grandmother breast ??? Diabetes Maternal Grandfather ??? Stroke Paternal Grandmother ??? Other Father Leigha huddleston, (sp ?), causes head aneurysms. Review of Systems Genitourinary: Positive for menstrual problem. All other systems reviewed and are negative. Objective: Filed Vitals: 09/26/15 0949 BP: 122/80 Pulse: 80 Temp: 97.8 ??F (36.6 ??C) TempSrc: Oral Height: 5' 6 (1.676 m) Weight: 183 lb 9.6 oz (83.28 kg) Body mass index is 29.65 kg/(m^2). Physical Exam Constitutional: She is oriented [...] Pelvic exam was performed with patient supine. No breast masses. Pap done with broom. Bimanual normal. Lymphadenopathy: She has no cervical adenopathy. Neurological: She is alert and oriented to person, place, and time. Skin: Skin is warm and dry. Psychiatric: She has a normal mood and affect. Her behavior is normal. Judgment and thought contentnormal. Vitals reviewed. cervix points to Rt and down. Lab Results Component Value Date WBC 8.0 03/12/2014 HGB 13.6 03/12/2014 HCT 40.9 03/12/2014 PLT 307 03/12/2014 ALT 9 03/12/2014 AST 18 03/12/2014 NA 139 03/12/2014 K 4.1 03/12/2014 CL 103 03/12/2014 CREATININE 0.73 03/12/2014 BUN 8 03/12/2014 CO2 24 03/12/2014 GLU 83 03/12/2014 TSHREFLEX 1.250 03/12/2014 Assessment and Plan: Gardenia was seen today for gynecologic exam. Diagnoses and all orders for this visit: Visit for gynecologic examination-pap done. Exam NL. Well adult exam-encourage exercise, wt loss. Stop sugary soft drinks. - Comprehensive Metabolic Panel; Future - Lipid Panel Reflex; Future - TSH Reflex; Future - CBC with Auto Diff; Future Abnormal menstrual cycle-very likely due to severe stress re job, etc. Tdap Return in about 1 year (around 09/25/2016), or if symptoms worsen or fail to improve. documented in this encounter Miscellaneous Notes * Patient Instructions - Thea Rubio MD - 09/26/2015 10:42 AM EDT Health Maintenance, Female A healthy lifestyle and preventative care can promote health and wellness. ?? Maintain regular health, dental, and eye exams. ?? Eat a healthy diet. Foods like vegetables, fruits, whole grains, low-fat dairy products, and lean protein foods contain the nutrients you need without too many calories. Decrease your intake of foods high in solid fats, added sugars, and salt. Get information about a proper diet from your caregiver, if necessary. ?? Regular physical exercise is one of the most important things you can do for your health. Most adults should get at least 150 minutes of moderate-intensity exercise (any activity that increases your heart rate and causes you to sweat) each week. In addition, most adults need muscle-strengtheningexercises on 2 or more days a week. ? Maintain a healthy weight. The body mass index (BMI) is a screening tool to identify possible weight problems. It provides an estimate of body fat based on height and weight. Your caregiver can help determine your BMI, and can help you achieve or maintain a healthy weight. For adults 20 years and older: ?? A BMI below 18.5 is considered underweight. ?? A BMI of 18.5 to 24.9 is normal. ?? A BMI of 25 to 29.9 is considered overweight. ?? A BMI of 30 and above is considered obese. ?? Maintain normal blood lipids and cholesterol by exercising and minimizing your intake of saturated fat. Eat a balanced diet with plenty of fruits and vegetables. Blood tests for lipids and cholesterol should begin at age 20 and be repeated every 5 years. If your lipid or cholesterol levels are high, you are over 50, or you are a high risk for heart disease, you may need your cholesterol levelschecked more frequently.??Ongoing high lipid and cholesterol levels should be treated with medicines if diet and exercise are not effective. ?? If you smoke, find out from your caregiver how to quit. If you do not use tobacco, do not start. ?? Lung cancer screening is recommended for adults aged 55-80 years who are at high risk for developing lung cancer because of a history of smoking. Yearly low-dose computed tomography (CT) is recommended for people who have at least a 62-afzz-ziyb history of smoking and are a current smoker or have quit within the past 15 years. A pack year of smoking is smoking an average of 1 pack of cigarettes a day for 1 year (for example: 1 pack a day for 30 years or 2 packs a day for 15 years). Yearly screening should continue until the smoker has stopped smoking for at least 15 years. Yearly screeningshould also be stopped for people who develop a health problem that would prevent them from having lung cancer treatment. ?? If you are , do not drink alcohol. If you are , be very cautious about drinking alcohol. If you are not and choose to drink alcohol, do not exceed 1 drink per day. One drink is considered to be 12 ounces (355 mL) of beer, 5 ounces (148 mL) of wine, or 1.5 ounces (44mL) of liquor. ?? Avoid use of street drugs. Do not share needles with anyone. Ask for help if you need support orinstructions about stopping the use of drugs. ?? High blood pressure causes heart disease and increases the risk of stroke. Blood pressure shouldbe checked at least every 1 to 2 years. Ongoing high blood pressure should be treated with medicines, if weight loss and exercise are not effective. ?? If you are 55 to 79 years old, ask your caregiver if you should take aspirin to prevent strokes. ?? Diabetes screening involves taking a blood sample to check your fasting blood sugar level. This should be done once every 3 years, after age 45, if you are within normal weight and without risk factors for diabetes. Testing should be considered at a younger age or be carried out more frequently if you are overweight and have at least 1 risk factor for diabetes. ?? Breast cancer screening is essential preventative care for women. You should practice breast self-awareness. This means understanding the normal appearance and feel of your breasts and may include breast self-examination. Any changes detected, no matter how small, should be reported to a caregiver. Women in their 20s and 30s should have a clinical breast exam (CBE) by a caregiver as part of a regular health exam every 1 to 3 years. After age 40, women should have a CBE every year. Startingat age 40, women should consider having a mammogram (breast X-ray) every year. Women who have a family history of breast cancer should talk to their caregiver about genetic screening. Women at a highrisk of breast cancer should talk to their caregiver about having an MRI and a mammogram every year. ?? Breast cancer gene (BRCA)-related cancer risk assessment is recommended for women who have family members with BRCA-related cancers. BRCA-related cancers include breast, ovarian, tubal, and peritoneal cancers. Having family members with these cancers may be associated with an increased risk for harmful changes (mutations) in the breast cancer genes BRCA1 and BRCA2. Results of the assessment will determine the need for genetic counseling and BRCA1 and BRCA2 testing. ?? The Pap test is a screening test for cervical cancer. Women should have a Pap test starting at age 21. Between ages 21 and 29, Pap tests should be repeated every 2 years. Beginning at age 30, you should have a Pap test every 3 years as long as the past 3 Pap tests have been normal. If you had a hysterectomy for a problem that was not cancer or a condition that could lead to cancer, then you nolonger need Pap tests. If you are between ages 65 and 70, and you have had normal Pap tests going back 10 years, you no longer need Pap tests. If you have had past treatment for cervical cancer or a condition that could lead to cancer, you need Pap tests and screening for cancer for at least 20 years after your treatment. If Pap tests have been discontinued, risk factors (such as a new sexual partner) need to be reassessed to determine if screening should be resumed. Some women have medical problems that increase the chance of getting cervical cancer. In these cases, your caregiver may recommend more frequent screening and Pap tests. ?? The human papillomavirus (HPV) test is an additional test that may be used for cervical cancer screening. The HPV test looks for the virus that can cause the cell changes on the cervix. The cells collected during the Pap test can be tested for HPV. The HPV test could be used to screen women aged30 years and older, and should be used in women of any age who have unclear Pap test results. Afterthe age of 30, women should have HPV testing at the same frequency as a Pap test. ?? Colorectal cancer can be detected and often prevented. Most routine colorectal cancer screening begins at the age of 50 and continues through age 75. However, your caregiver may recommend screening at an earlier age if you have risk factors for colon cancer. On a yearly basis, your caregiver mayprovide home test kits to check for hidden blood in the stool. Use of a small camera at the end of a tube, to directly examine the colon (sigmoidoscopy or colonoscopy), can detect the earliest forms of colorectal cancer. Talk to your caregiver about this at age 50, when routine screening begins. Direct examination of the colon should be repeated every 5 to 10 years through age 75, unless early forms of pre-cancerous polyps or small growths are found. ?? Hepatitis C blood testing is recommended for all people born from 1945 through 1965 and any individual with known risks for hepatitis C. ?? Practice safe sex. Use condoms and avoid high-risk sexual practices to reduce the spread of sexually transmitted infections (STIs). Sexually active women aged 25 and younger should be checked for Chlamydia, which is a common sexually transmitted infection. Older women with new or multiple partners should also be tested for Chlamydia. Testing for other STIs is recommended if you are sexually active and at increased risk. ?? Osteoporosis is a disease in which the bones lose minerals and strength with aging. This can result in serious bone fractures. The risk of osteoporosis can be identified using a bone density scan.Women ages 65 and over and women at risk for fractures or osteoporosis should discuss screening with their caregivers. Ask your caregiver whether you should be taking a calcium supplement or vitamin D to reduce the rate of osteoporosis. ?? Menopause can be associated with physical symptoms and risks. Hormone replacement therapy is available to decrease symptoms and risks. You should talk to your caregiver about whether hormone replacement therapy is right for you. ?? Use sunscreen. Apply sunscreen liberally and repeatedly throughout the day. You should seek shade when your shadow is shorter than you. Protect yourself by wearing long sleeves, pants, a wide-brimmed hat, and sunglasses year round, whenever you are outdoors. ?? Notify your caregiver of new moles or changes in moles, especially if there is a change in shapeor color. Also notify your caregiver if a mole is larger than the size of a pencil eraser. ?? Stay current with your immunizations. Document Released: 10/21/2011 Document Revised: 08/02/2013 Document Reviewed: 03/09/2014 ExitCare?? Patient Information ??2014 Labs on the Go. This information is not intended to replace advice given to you by your health care provider. Make sure you discuss any questions you have with your health care provider. documented in this encounter Plan of Treatment Upcoming Encounters Date Type Department Care Team (Late st Contact Info) Description 04/24/2024 10:45 AM EST Clinical Support [facility] [address] [place] [address] Scheduled Orders Name Type Priority Associated Diagnoses Orde r Schedule TITLE EXAMINER CYTOLOGY REQUEST (PAP ONLY) Lab Routine Visit for gynecologic examination 1 Occurrences starting 09/26/2015 until 09/25/2016 documented as of this encounter Results * CBC WITH AUTO DIFF (10/07/2015 9:32 AM EDT) WBC 7.9 4.0 - 11.0 x10(3)/mcL [facility] RBC 4.64 3.80 - 5.10 x10(6)/mcL [facility] Hgb 12.8 12.0 - 15.6 gm/dL [facility] Hct 39.5 35.7 - 45.9 % [facility] MCV 85.1 82.5 - 99.8 fL [facility] MCH 27.6 27.0 - 34.3 pg [facility] MCHC 32.4 32.1 - 35.3 gm/dL [facility] RDW 13.5 11.5 - 15.0 % [facility] Platelet 298 144 - 423 x10(3)/mcL [facility] MPV 8.3 6.8 - 10.8 fL [facility] Blood specimen (specimen) UPPER LIMB STRUCTURE / Unknown 10/07/2015 9:32 AM EDT 10/07/2015 9:32 AM EDT us Thea Rubio MD HEMATOLOGY ORDERABLES Antonia l Result [facility] [address] [id number] * TSH REFLEX (10/07/2015 9:32 AM EDT) TSH Reflex 1.600 0.270 - 4.200 mcIU/mL [facility] Blood specimen (specimen) UPPER LIMB STRUCTURE / Unknown 10/07/2015 9:32 AM EDT 10/07/2015 11:58 AM EDT Thea Rubio MD CHEMISTRY ORDERABLES Final Result Performing Organization Address [facility] de Phone Number [facility] [address] [place] [address] * LIPID PANEL REFLEX (10/07/2015 9:32 AM EDT) Pathologist [facility] Cholesterol 174 <=200 mg/dL [facility] Comment: < 200 ?Desirable 200 - 239 ? Borderline High >= 240 ?High Triglyceride 71 <=150 mg/dL [facility] Comment: < 150 ? Normal 150 - 199 ?Borderline High 200 - 499 ?High ??>= 500 ? Very High HDL 50 >=40 mg/dL [facility] Comment: ?? > 60 ?Optimal 40 - 60 ?Acceptable ?? < 40 ?Low Blood specimen (specimen) UPPER LIMB STRUCTURE / Unknown 10/07/2015 9:32 AM EDT 10/07/2015 11:58 AM EDT us Thea Rubio MD CHEMISTRY ORDERABLES Final Result Performing Organization Address [facility] de Phone Number [facility] [address] [place] [address] * (ABNORMAL) COMPREHENSIVE METABOLIC PANEL (10/07/2015 9:32 AM EDT) Pathologist [facility] Sodium 141 136 - 145 mmol/L [facility] Potassium 4.4 3.5 - 5.0 mmol/L [facility] Chloride 109(H) 98 - 107 mmol/L [facility] Total CO2 21(L) 22 - 29 mmol/L [facility] Anion Gap 11 7 - 16 mmol/L [facility] Calcium 9.0 8.6 - 10.2 mg/dL [facility] Glucose Lvl 90 74 - 100 mg/dL [facility] BUN 9 6 - 20 mg/dL [facility] Creatinine 0.86 0.51 - 1.30 mg/dL [facility] Albumin 4.1 3.5 - 5.2 gm/dL [facility] Total Protein 7.0 6.4 - 8.3 gm/dL [facility] Bili Total 0.3 0.1 - 1.3 mg/dL [facility] AST 17 <=40 IU/L [facility] ALT 16 <=41 IU/L [facility] Alk Phos 69 35 - 104 IU/L [facility] GFR Afr Am >60 [facility] GFR Non Afr Am >60 [facility] Blood specimen (specimen) UPPER LIMB STRUCTURE / Unknown 10/07/2015 9:32 AM EDT 10/07/2015 11:58 AM EDT us Thea Rubio MD CHEMISTRY ORDERABLES Edite d Result - Final [facility] [address] [place] [address] documented in this encounter Visit Diagnoses Diagnosis Visit for gynecologic examination- Primary Routine gynecological examination Well adult exam Routine general medical examination at a health care facility Abnormal menstrual cycle Unspecified disorder of menstruation and other abnormal bleeding from female genital tract Need for pywoehltfh-pobifcp-yhjnojszo (Tdap) vaccine, adult/adolescent Need for prophylactic vaccination with combined sxpobnogdz-gyxragk-secshgorx (DTP) vaccine documented in this encounter Orders Immunization/Injection Count Last Ordered Date First Ordered Date TDAP VACCINE =>7YO IM 1 09/26/2015 documented in this encounter Care Teams Sample Grader Relationship Specialty Start Date End Date Thea Rubio MD PCP - General Family Medicine 09/13/14 07/16/22 documented as of this encounter
--- OUTSIDE RECORDS SUMMARY | 2024-03-14 18:22 | XMS_ITS | Encounter Summary ---
Author [place] [address] Care Team Providers Care [employer] Name Role Phone Thea Rubio MD Primary Care Provider +1- [phone] Reason for Visit * Reason Comments Back Pain Right lower back martha n. began 1.5 hours ago. Encounter Details Date Type Department Care Team (Late st Contact Info) Description 01/15/2017 9:17 PM EDT - 01/16/2017 12:41 AM EDT [facility] [address] [place] [address] Mohamud Rodgers MD [facility] [address] [place] [address] Renal colic on right side (Primary Dx) Discharge Disposition: Home or Self [...] Sign Reading Time Taken Comments Blood Pressure 108/72 01/16/2017 12:40 AM EDT Pulse 80 01/16/2017 12:40 AM EDT Temperature 36.6 ??C (97.8 ??F) 01/15/2017 9:02 PM ED T Respiratory Rate 16 01/16/2017 12:40 AM EDT Oxygen Saturation 100% 01/16/2017 12:40 AM EDT Inhaled Oxygen Concentration - - Weight 61.2 kg (135 lb) 01/15/2017 9:02 PM EDT Height 165.1 cm (5' 5 ) 01/15/2017 9:02 PM EDT Body Mass Index 22.47 01/15/2017 9:02 PM EDT documented in this encounter Discharge Instructions * Discharge Instructions* Mohamud Rodgers MD - 01/16/2017 12:23 AM EDT You were seen in the ED for your back pain. You have a kidney stone. You should follow up with the urologist on this form. Please return for worsening pain, fevers, or concerning symptoms. You shouldpass the stone. Please strain your urine. * Attachments The following attachments cannot be sent through Care Everywhere. * RENAL COLIC (EGYPTIAN) documented in this encounter Medications at Time of Discharge HYDROcodone-aceta minophen (NORCO) 5-325 mg Oral Tablet Take 1 Tab by mouth every 4 hours as needed for Pain for up to 10 doses. 10 Tab 01/16/2017 01/19/2017 ondansetron (ZOFRAN) 4 mg Oral Tablet Take 1 Tab by mouth every 4 hours as needed for Nausea for up to 3 days. 10 Tab 01/16/2017 01/19/2017 documented as of this encounter Ordered Prescriptions Prescription Sig Dispense Quantity Refills Last Filled Start Date End Date ondansetron (ZOFRAN) 4 mg Oral Tablet Take 1 Tab by mouth every 4 hours as needed for Nausea for up to 3 days. 10 Tab 01/16/2017 01/19/2017 HYDROcodone-acetam inophen (NORCO) 5-325 mg Oral Tablet Take 1 Tab by mouth every 4 hours as needed for Pain for up to 10 doses. 10 Tab 01/16/2017 01/19/2017 documented in this encounter Discharge Disposition Disposition Code Departure Means Destination Home or Self Custodial documented in this encounter ED Notes * Mohamud Rodgers MD - 01/15/2017 8:53 PM EDT Chief Complaint Patient presents with ??? Back Pain Right lower back pain. began 1.5 hours ago. Patient is a 36-year-old female who presents to the emergency department today for back pain. The patient states that she started having back pain just prior to coming to the emergency department. She was not doing anything particular. She was sitting watching TV when it started. She describes it as sharp and achy. It does not radiate. She has no associated lower tremor any symptoms such as weakness, numbness. She denies any red flag features such as fever, saddle anesthesia, back injections, history of cancer. She has a history of kidney stones. She states that she was urinating more frequently than usual but denies any dysuria or hematuria. Allergies Allergen Reactions ??? Aspirin Not sure of rxn. ??? Morphine Nausea And Vomiting Home Medications: Prior to Admission medications Medication Sig Start Date End Date Taking? Authorizing Provider dicyclomine (BENTYL) 10 mg Oral Capsule Take 10 mg by mouth 4 times daily as needed (for cramps after menses). Yes Provider, Historical SUMAtriptan (IMITREX) 25 mg Oral Tablet Take 1 Tab by mouth as needed for Migraine. 01/08/16 Yes Thea Rubio MD topiramate (TOPAMAX) 50 mg Oral Tablet TAKE ONE TABLET BY MOUTH TWICE A DAY. MAY ADD EXTRA PILL AT NIGHT WHEN HAVING MIGRAINE FLARES. 10/18/16 Yes Thea Rubio MD HYDROcodone-acetaminophen (NORCO) 5-325 mg Oral Tablet Take 1 Tab by mouth every 4 hours as needed for Pain for up to 10 doses. 01/16/17 01/19/17 Mohamud Rodgers MD ondansetron (ZOFRAN) 4 mg Oral Tablet Take 1 Tab by mouth every 4 hours as needed for Nausea for upto 3 days. 01/16/17 01/19/17 Mohamud Rodgers MD Past Medical History: Past Medical History: Diagnosis Date ??? 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 Biliary atresia ??? Migraines Social History: reports that she quit smoking about 22 years ago. She has a 0.10 pack-year smoking history. She has never used smokeless tobacco. She reports that she drinks alcohol. She reports thatshe currently engages in sexual activity and has had male partners. She reports that she does not use drugs. Family History: Family History Problem [...] couple mos old. Infant Review of Systems Constitutional: Negative for chills and fever. HENT: Negative for congestion. Eyes: Negative for visual disturbance. Respiratory: Negative for chest tightness and shortness of breath. Cardiovascular: Negative for chest pain. Gastrointestinal: Negative for abdominal pain, nausea and vomiting. Endocrine: Positive for polyuria. Genitourinary: Negative for dysuria and hematuria. Musculoskeletal: Positive for back pain. Negative for neck pain and neck stiffness. Skin: Negative for rash and wound. Allergic/Immunologic: Negative for immunocompromised state. Neurological: Negative for headaches. Hematological: Negative for adenopathy. Psychiatric/Behavioral: Negative for confusion. Blood pressure 104/67, pulse 78, temperature 97.8 ??F (36.6 ??C), temperature source Oral, resp. rate 20, height 5' 5 (1.651 m), weight 135 lb (61.2 kg), last menstrual period 01/06/2017, SpO2 100 %. Physical Exam Constitutional: She is oriented to person, place, and time. She appears well- developed and well-nourished. HENT: Head: Atraumatic. Eyes: Conjunctivae are normal. Neck: Normal range of motion. Neck supple. Cardiovascular: Normal rate and regular rhythm. Pulmonary/Chest: Effort normal and breath sounds normal. Abdominal: Soft. She exhibits no distension. There is right sided paraspinal lumbar tenderness to palpation. Musculoskeletal: She exhibits no edema or deformity. Neurological: She is alert and oriented to person, place, and time. 5/5 strength with foot dorsiflexion/plantar flexion, hip flexion, knee flexion, knee extension. Intact sensation to light touch throughout the left bilateral lower extremities Skin: Skin is warm and dry. Nursing note and vitals reviewed. Procedures Radiology/EKG/Labs: Results for orders placed or performed during the hospital encounter of 01/15/17 CT ABDOMEN PELVIS WO ORAL OR IV CONTRAST Narrative CLINICAL HISTORY: Acute right-flank pain. COMPARISON: 2008. TECHNIQUE: CT ABDOMEN PELVIS WO ORAL OR IV CONTRAST on 01/15/2017 11:39 PM. FINDINGS: Abdomen: The lung bases are clear. The visualized portions of the heart are normal. There is a 2.8 mm calculus at the right ureterovesical junction causing mild right hydroureteronephrosis. The unenhanced left kidney and left collecting system are grossly normal. There are surgical changes in the upper abdomen which contribute to pneumobilia in the left hepatic lobe. The gallbladder has been removed. The unenhanced spleen, pancreas, and adrenal glands are grossly normal. The caliber of the small bowel is normal. There are no enlarged abdominal lymph nodes or free fluid. The caliber of the aorta is normal. The spine is unremarkable. Pelvis: The caliber of the colon is normal. The appendix has been removed. There are no enlarged pelvic lymph nodes or free fluid. The urinary bladder, uterus, and adnexa are normal. The bony pelvis is unremarkable. Impression 1. A calculus at the right ureterovesical junction causes mild right hydroureteronephrosis. 2. Incidental findings as described URINALYSIS Result Value Ref Range UA Color Yellow Straw UA Appear Slightly Cloudy (A) Clear UA Glucose Negative Negative UA Ketones Negative Negative UA Blood Large (A) Negative UA pH 6.0 5.0 - 8.0 UA Protein Trace (A) Negative UA Urobilinogen 1.0 E.U./dL <=1 E.U./dL UA Nitrite Negative Negative UA Leuk Est Negative Negative UA Spec Grav >=1.030 1.002 - 1.030 UA RBC 5-10 (A) 0 - 3 /HPF UA Squam Epi 3+ UA Mucus 4+ UA Hyal Cast 3-5 (A) 0 - 2 /LPF UA CA Ox Chiquis 1+ UA Trans Epi 1+ ED Course: Appropriate laboratory and radiology studies reviewed Patient is a 36-year-old female presents to the emergency department today for right back pain. Clinically I suspected lumbar strain given the location of the pain. She has no radicular features to suggest cauda equina. Her urine which is notable for calcium oxalate crystals, blood. It was at that time that I began to suspect renal colic. CT scan of the abdomen was performed which revealed a 2.8 m m stone causing mild hydronephrosis. The patient is now comfortable after pain medication. She is given a urine strainer, urology follow-up, Percocet, Zofran and discharge. The patient understands proper return precautions. BLUE reviewed. Stable for discharge home with medications and follow up. No signs of infection on urinalysis. ED Clinical Impression: Renal colic Critical Care time Condition at Discharge/Transfer from Department: Stable This chart was completed using voice recognition technology and may contain unintended errors Mohamud Rodgers MD 01/16/17 0033 documented in this encounter Plan of Treatment Upcoming Encounters Date Type Department Care Team (Late st Contact Info) Description 04/24/2024 10:45 AM EST Clinical Support [facility] [address] [place] [address] documented as of this encounter Goals Goal Patient Goal Type Associated Problems Recent Progress Patient-Stated? Author Maintain a healthy diet, exercise regularly and maintain an ideal body weight General No Thea Rubio MD Stay Tobacco Free Lifestyle No Thea Rubio MD documented as of this encounter Procedures Procedure Name Priority Date/Time Associated Diagnosis Comments CT ABDOMEN PELVIS WO ORAL OR IV CONTRAST STAT 01/15/2017 11:39 PM EDT URINALYSIS STAT 01/15/2017 10:50 PM EDT documented in this encounter Results * CT ABDOMEN PELVIS WO ORAL OR IV CONTRAST (01/15/2017 11:39 PM EDT) Anatomical Region Laterality Modality Abdomen, Pelvis Computed Tomogra phy 01/15/2017 11:3 9 PM EDT Impressions 01/16/2017 12:12 AM EDT 1. A calculus at the right ureterovesical junction causes mild right hydroureteronephrosis. 2. Incidental findings as described Narrative 01/16/2017 12:12 AM EDT CLINICAL HISTORY: Acute right-flank pain. COMPARISON: 2008. TECHNIQUE: CT ABDOMEN PELVIS WO ORAL OR IV CONTRAST on 01/15/2017 11:39 PM. FINDINGS: Abdomen: The lung bases are clear. The visualized portions of the heart are normal. There is a 2.8 mm calculus at the right ureterovesical junction causing mild right hydroureteronephrosis. The unenhanced left kidney and left collecting system are grossly normal. There are surgical changes in the upper abdomen which contribute to pneumobilia in the left hepatic lobe. The gallbladder has been removed. The unenhanced spleen, pancreas, and adrenal glands are grossly normal. The caliber of the small bowel is normal. There are no enlarged abdominal lymph nodes or free fluid. The caliber of the aorta is normal. The spine is unremarkable. Pelvis: The caliber of the colon is normal. The appendix has been removed. There are no enlarged pelvic lymph nodes or free fluid. The urinary bladder, uterus, and adnexa are normal. The bony pelvis is unremarkable. Procedure Note Ulysses Chapman MD - 01/16/2017 CLINICAL HISTORY: Acute right-flank pain. COMPARISON: 2008. TECHNIQUE: CT ABDOMEN PELVIS WO ORAL OR IV CONTRAST on 01/15/2017 11:39PM. FINDINGS: Abdomen: The lung bases are clear. The visualized portions of the heartare normal. There is a 2.8 mm calculus at the right ureterovesical junction causingmild right hydroureteronephrosis. The unenhanced left kidney and leftcollecting system are grossly normal. There are surgical changes in the upper abdomen which contribute topneumobilia in the left hepatic lobe. The gallbladder has been removed. Theunenhanced spleen, pancreas, and adrenal glands are grossly normal. The caliber ofthe small bowel is normal. There are no enlarged abdominal lymph nodes orfree fluid. The caliber of the aorta is normal. The spine is unremarkable. Pelvis: The caliber of the colon is normal. The appendix has been removed.There are no enlarged pelvic lymph nodes or free fluid. The urinary bladder,uterus, and adnexa are normal. The bony pelvis is unremarkable. IMPRESSION: 1. A calculus at the right ureterovesical junction causes mild right hydroureteronephrosis. 2. Incidental findings as described us Mohamud Rodgers MD IMG CT ORDERABLES Final Result * (ABNORMAL) URINALYSIS (01/15/2017 10:50 PM EDT) UA Color Yellow Straw [facility] UA Appear Slightly Cloudy(A) Clear [facility] UA Glucose Negative Negative [facility] UA Ketones Negative Negative [facility] UA Blood Large(A) Negative [facility] UA pH 6.0 5.0 - 8.0 [facility] Comment:Reference range dionna d for random specimens only. UA Protein Trace(A) Negative [facility] UA Urobilinogen 1.0 E.U./dL <=1 E.U./dL [facility] UA Nitrite Negative Negative [facility] UA Leuk Est Negative Negative [facility] UA Spec Grav >=1.030 1.002 - 1.030 [facility] Comment:Reference range dionna d for random specimens only. UA RBC 5-10(A) 0 - 3 /HPF [facility] UA Squam Epi 3+ [facility] UA Mucus 4+ [facility] UA Hyal Cast 3-5(A) 0 - 2 /LPF [facility] UA CA Ox Chiquis 1+ [facility] UA Trans Epi 1+ [facility] Urine specimen (specimen) URINE SPECIMEN COLLECTION, CLEAN CATCH / Unknown 01/15/2017 10:50 PM EDT 01/15/2017 10:55 PM EDT us Mohamud Rodgers MD URINE ORDERABLES Final Result [facility] [address] [place] [address] documented in this encounter Visit Diagnoses Diagnosis Renal colic on right side- Primary Renal colic documented in this encounter Administered Medications Inactive Administered Medications - up to 1 most recent administrations Medication Order MAR Action Action Date Dose Rate Site diazePAM (VALIUM) tablet 5 mg 5 mg, Oral, ONCE, 1 dose, On Fri01/15/17 at 2130 Given 01/15/2017 9:45 PM EDT 5 mg ketorolac (TORADOL) injection 30 mg 30 mg, Intramuscular, ONCE, 1 dose, On Stephanie 01/16/17 at 0030, Maximum IV dose is 30mg Given 01/16/2017 12:33 AM EDT 30 mg Left Arm oxyCODONE-acetaminophen (PERCOCET) 5-325 mg per tablet 1 Tab 1 Tablet, Oral, ONCE, 1 dose, On Fri01/15/17 at 2245, Maximum adult dose of acetaminophen is 4000 mg from all sources in 24 hours. Given 01/15/2017 10:42 PM EDT 1 Tablet documented in this encounter Active and Recently Administered Medications Times are shown in EDT. Scheduled Medication Order 01/14/2017 01/15/2017 01/16/2017 diazePAM (VALIUM) tablet 5 mg (COMPLETED) 5 mg, Oral, ONCE, 1 dose, On Fri01/15/17 at 2130 2145 (Given - Provider: Abad Candelario RN) ketorolac (TORADOL) injection 30 mg (COMPLETED) 30 mg, Intramuscular, ONCE, 1 dose, On Fri01/16/17 at 0030, Maximum IV dose is 30mg 0033 (Given - Provid er: Abad Candelario RN) oxyCODONE-acetaminophen (PERCOCET) 5-325 mg per tablet 1 Tab (COMPLETED) 1 Tablet, Oral, ONCE, 1 dose, On Fri01/15/17 at 2245, Maximum adult dose of acetaminophen is 4000 mg from all sources in 24 hours. 2242 (Given - Provider: Abad Candelario RN) documented in this encounter Orders Medications Ordered That Jair ht Not Have Been Administered Count Last Ordered Date First Ordered Date ketorolac (TORADOL) injection 30 mg 1 01/16 Nursing Count Last Ordered Date First Orde red Date STRAIN ALL URINE 1 01/16/2017 documented in this encounter Care Teams [employer] Relationship Specialty Start Date End Date Thea Rubio MD PCP - General Family Medicine 09/13/14 07/16/22 documented as of this encounter
--- OUTSIDE RECORDS SUMMARY | 2024-03-14 18:22 | XMS_ITS | Encounter Summary ---
Author Organization [place] [address] Care Team Providers Care Clerk [address] Name Role Phone Thea Rubio MD Primary Care Provider +1- [phone] Reason for Visit * Reason Comments Medication Refill Encounter Details Date Type Department Care Team (Late st Contact Info) Description 09/17/2016 Refill [facility] [address] [place] [address] Thea Rubio MD [address] [place], [place] [id number] Medication Refill Social History Tobacco Use Types [...] PILL AT NIGHT WHEN HAVING MIGRAINE FLARES. 90 Tab 1 09/17/2016 7 documented in this encounter Plan of Treatment Upcoming Encounters Date Type Department Care Team (Late st Contact Info) Description 04/24/2024 10:45 AM EST Clinical Support [facility] [address] [place] [address] documented as of this encounter Goals [...] aura and without status migrainosus, not intractable Take 1 Tab by mouth 2 times daily. May add extra pill at night when having migraine flares. Reorder 01/08/2016 09/17/2016 documented as of this encounter Care Teams Clerk Of [address] Court Relationship Specialty Start Date End Date Thea Rubio MD PCP - General Family Medicine 09/13/14 07/16/22 documented as of this encounter
--- OUTSIDE RECORDS SUMMARY | 2024-03-14 18:22 | XMS_ITS | Encounter Summary ---
Author Organization [place] [address] Care Team Providers Care [employer] Name Role Phone Thea Rubio MD Primary Care Provider +1- [phone] Reason for Visit * Physical Therapy (Routine) - Closed Specialty Diagnoses / Procedures Referred By Contstephanie t Referred To Contact Physical Therapy Diagnoses Right knee pain, unspecified chronicity Thea Rubio MD Phone: tel: fax: [facility] [address] [address] Phone: tel: fax: Referral ID Status Reason Start Date Expiration Date V isits Requested Visits Authorized [id number] Closed Specialty Services Required 12/26/2015 12/25/2016 30 30 Encounter Details Date Type Department Care Team (Latest Contact Info) Description 01/15/2016 3:30 PM EDT - 01/15/2016 11:59 PM EDT Hospital Encounter [place] [address] Meghan Garcia PTA Discharge Disposition: Home or [...] Progress Notes * Meghan Garcia PTA - 01/15/2016 3:29 PM EDT [facility] Daily Progress Note 01/15/2016 [place]ia Childress : 1980 Diagnosis: Right knee pain Referring Practitioner: Ethel Overton MD Visit # 3 Onset Date: 12/01/14 Reassessment Date: 01/31/16 G-codes Due: N/A Next FOTO due: 01/31/16 Next MD visit: Nothing scheduled Precautions: None Med Changes: None Time In/Out: 1529/1555 Pain Scale: 0 Location: right knee(s) medial knee Type: sharp Subjective Doing all right. HEP: Independent and Compliant Objective FOTO Eval: Patient Score: 64 FOTO Expected Score: 45 Anticipated Change: 10 Subsequent FOTO Scores (score and date): None yet Treatment (25 minutes therapeutic exercise) Total gym level 10 bilateral squats 15 reps In open clinic: BLUE sidestepping 80 feet BLUE diagonal stepping 60 feet At ballet bar: BLUE hip flex, abd, ext 15 reps Step up and hold 3 second SLS on trampoline 12 reps Lateral step up and hold 3 second SLS 12 reps Quad stretch 3 reps hold 20 seconds Squat, lift and cloth picker 12.5# crate 5 reps Hooklying: Bridges on RED ball 12 reps with 3 second hold arms across chest BLUE SLR 12 reps Quad stretch off edge of mat by EVENT AV OPERATOR 3 reps hold 20 seconds Sitting: BLUE alternate LAQ 15 reps At ballet bar: Walking lunges 40 feet with 1 UE assist Quad stretch 2 reps hold 20 seconds each Total gym level 7 single leg squat 15 reps Education: Needs Assistance: Yes HEP additions Understood: Yes Assessment Continues to do well and meeting goals. Plan Continue PT: 1 more visit in 2 weeks and if ok will discharge to HEP. Meghan Garcia PTA documented in this encounter Plan of Treatment Upcoming Encounters Date Type Department Care Team (Late st Contact Info) Description 04/24/2024 10:45 AM EST Clinical Support [facility] [address] [place] [address] documented as of this encounter Visit Diagnoses Not on filedocumented in this encounter Care Teams [employer] Relationship Specialty Start Date End Date Thea Rubio MD PCP - General Family Medicine 09/13/14 07/16/22 documented as of this encounter
--- OUTSIDE RECORDS SUMMARY | 2024-03-14 18:22 | XMS_ITS | Encounter Summary ---
Author Organization [place] [address] Care Team Providers Care Drum Builder Name Role Phone Thea Rubio MD Primary Care Provider +1- [phone] Encounter Details Date Type Department Care Team (Latest Contact Info) Description 04/23/2016 4:34 PM EST - 04/23/2016 11:59 PM EST Hospital Encounter [facility] [address] [place] [address] Alopecia Discharge Disposition: Home or Self Care Social [...] Clinical Support [facility] [address] [place] [address] Scheduled Orders Name Type Priority Associated Diagnoses Orde r Schedule OP VENIPUNCTURE CHARGE Lab Timed Alopecia One Time for 1 Occurrences starting 04/23/2016 until 04/23/2016 documented as of this encounter Procedures Procedure Name Priority Date/Time Associated Diagnosis Comments TSH REFLEX Routine 04/23/2016 4:41 PM EST Alopecia T4, FREE (THYROXINE) Routine 04/23/2016 4:41 PM EST Alopecia documented in this encounter Results * TSH REFLEX (04/23/2016 4:41 PM EST) TSH Reflex 2.100 0.270 - 4.200 mcIU/mL [facility] Blood specimen (specimen) UPPER LIMB STRUCTURE / Unknown 04/23/2016 4:41 PM EST 04/23/2016 7:53 PM EST us Thea Rubio MD CHEMISTRY ORDERABLES Final Result Performing Organization Address [facility] [place] [address] * T4, FREE (THYROXINE) (04/23/2016 4:41 PM EST) Free T4 1.06 0.80 - 2.00 ng/dL [facility] Blood specimen (specimen) 04/23/2016 4:41 PM EST 04/23/2016 7:53 PM EST us Thea Rubio MD CHEMISTRY ORDERABLES Final Result Performing Organization Address [facility] [place] [address] documented in this encounter Visit Diagnoses Diagnosis Alopecia Alopecia, unspecified documented in this encounter Care Teams Drum Builder Relationship Specialty Start Date End Date Thea Rubio MD PCP - General Family Medicine 09/13/14 07/16/22 documented as of this encounter
--- OUTSIDE RECORDS SUMMARY | 2024-03-14 18:22 | XMS_ITS | Encounter Summary ---
Author Organization [place] [address] Care Team Providers Care Repulping Supervisor Name Role Phone Thea Rubio MD Primary Care Provider +1- [phone] Reason for Visit * Reason Onset Date Comments Medication Refill 01/08/2016 Encounter Details Date Type Department Care Team (Late st Contact Info) Description 01/08/2016 Telephone [facility] [address] [place] [address] Thea Rubio MD [address] [place], [place] [id number] Medication Refill Social History Tobacco Use Types [...] Date SUMAtriptan (IMITREX) 25 mg Oral Tablet Take 1 Tab by mouth as needed for Migraine. 9 Tab 5 01/08/2016 7 topiramate (TOPAMAX) 50 mg Oral TabletIndications: Migraine without aura and without status migrainosus, not intractable Take 1 Tab by mouth 2 times daily. May add extra pill at night when having migraine flares. 270 Tab 1 01/08/2016 7 documented in this encounter Miscellaneous Notes * Telephone Encounter - Thea Rubio MD - 01/08/2016 6:00 PM EDT Both meds sent in. * Telephone Encounter - Susan Oliveira RMA - 01/08/2016 5:44 PM EDT Pt will be out of Topamax tomorrow has been out of Imitrex for a couple of mos * Telephone Encounter - Thea Rubio MD - 01/08/2016 12:04 PM EDT Clarify, this note doesn't quite make sense. * Telephone Encounter - Mima Thompson - 01/08/2016 11:12 AM EDT Pt Made A Migraine medication check up With you On 04/19, She Will be Out tomorrow of topiramate (TOPAMAX) 50 mg Oral Tablet & Says She has been Out For Months Of topiramate (TOPAMAX) 50 mg Oral Tablet Will You Ok Refills of Both Until Apt Or Need to See her sooner ? Shalonda Wilma documented in this encounter Plan of Treatment Upcoming Encounters Date Type Department Care Team (Late st Contact Info) Description 04/24/2024 10:45 AM EST Clinical Support [facility] [address] [place] [id number] documented as of this encounter Visit Diagnoses [...] at night when having migraine flares. Reorder 03/17/2015 01/08/2016 SUMAtriptan (IMITREX) 25 mg tablet Take by mouth as needed for Migraine. Reorder 01/08/2016 documented as of this encounter Care Teams Repulping Supervisor Relationship Specialty Start Date End Date Thea Rubio MD PCP - General Family Medicine 09/13/14 07/16/22 documented as of this encounter
--- OUTSIDE RECORDS SUMMARY | 2024-03-14 18:22 | XMS_ITS | Encounter Summary ---
Author [place] [address] Care Team Providers Care Social Science Manager Name Role Phone Thea Rubio MD Primary Care Provider +1- [phone] Encounter Details Date Type Department Care Team (Latest Contact Info) Description 10/07/2015 9:20 AM EDT - 10/07/2015 11:59 PM EDT Hospital Encounter [facility] [address] [place] [address] Well adult exam Discharge Disposition: Home or Self [...] Clinical Support [facility] [address] [place] [address] Scheduled Orders Name Type Priority Associated Diagnoses Orde r Schedule OP VENIPUNCTURE CHARGE Lab Timed Well adult exam One Time for 1 Occurrences starting 10/07/2015 until 10/07/2015 documented as of this encounter Procedures Procedure Name Priority Date/Time Associated Diagnosis Comments LDL, CALCULATED Routine 10/07/2015 9:32 AM EDT LIPID PANEL REFLEX Routine 10/07/2015 9: 32 AM EDT Well adult exam TSH REFLEX Routine 10/07/2015 9:32 AM EDT Well adult exam DIFFERENTIAL Routine 10/07/2015 9:32 AM EDT CBC WITH DIFF Routine 10/07/2015 9:32 AM EDT Well adult exam COMPREHENSIVE METABOLIC PANEL Routine 10/07/2015 9:32 AM EDT Well adult exam documented in this encounter Results * (ABNORMAL) LDL, CALCULATED (10/07/2015 9:32 AM EDT) Pathologist [facility] LDL Calculated 110(H) <=100 mg/dL [facility] Comment: ??< 100 ?Optimal 100 - 129 ? Near or above optimal 130 - 159 ? Borderline High 160 - 189 ? High >= 190 ?Very High Blood specimen (specimen) 10/07/2015 9:32 AM EDT 10/07/2015 11:58 AM EDT us Thea Rubio MD CHEMISTRY ORDERABLES Final Result [facility] [address] [place] [address] * DIFFERENTIAL (10/07/2015 9:32 AM EDT) Neut Percent 62.5 % [facility] Lymph Percent 25.0 % [facility] Travis Percent 6.9 % [facility] Eos Percent 5.0 % [facility] Baso Percent 0.6 % [facility] Neut# 4.9 1.8 - 7.7 x10(3)/mcL [facility] Lymph# 2.0 0.6 - 4.8 x10(3)/[facility] Travis# 0.5 0.0 - 1.3 x10(3)/[facility] Eos# 0.4 0.0 - 0.5 x10(3)/[facility] Baso# 0.0 0.0 - 0.2 x10(3)/[facility] Blood specimen (specimen) 10/07/2015 9:32 AM EDT 10/07/2015 9:32 AM EDT Thea Rubio MD HEMATOLOGY ORDERABLES Antonia l Result [facility] [address] [place] [address] * TSH REFLEX (10/07/2015 9:32 AM EDT) TSH Reflex 1.600 0.270 - 4.200 mcIU/mL [facility] Blood specimen (specimen) UPPER LIMB STRUCTURE / Unknown 10/07/2015 9:32 AM EDT 10/07/2015 11:58 AM EDT Thea Rubio MD CHEMISTRY ORDERABLES Final Result Performing Organization Address City/[facility]/ZIP Co de Phone Number [facility] [address] [place] [address] * LIPID PANEL REFLEX (10/07/2015 9:32 AM EDT) Cholesterol 174 <=200 mg/dL [facility] Comment: < 200 ?Desirable 200 - 239 ? Borderline High >= 240 ?High Triglyceride 71 <=150 mg/dL [facility] Comment: < 150 ? Normal 150 - 199 ?Borderline High 200 - 499 ?High ??>= 500 ? Very High HDL 50 >=40 mg/dL [facility] Comment: ?? > 60 ?Optimal 40 - 60 ?Acceptable ?? < 40 ?Low Blood specimen (specimen) UPPER LIMB STRUCTURE / Unknown 10/07/2015 9:32 AM EDT 10/07/2015 11:58 AM EDT us Thea Rubio MD CHEMISTRY ORDERABLES Final Result [facility] [address] [place] [address] * (ABNORMAL) COMPREHENSIVE METABOLIC PANEL (10/07/2015 9:32 AM EDT) Sodium 141 136 - 145 mmol/L [facility] Potassium 4.4 3.5 - 5.0 mmol/L [facility] Chloride 109(H) 98 - 107 mmol/L [facility] Total CO2 21(L) 22 - 29 mmol/L [facility] Anion Gap 11 7 - 16 mmol/L [facility] Calcium 9.0 8.6 - 10.2 mg/dL [facility] Glucose Lvl 90 74 - 100 mg/dL [facility] BUN 9 6 - 20 mg/dL [facility] Creatinine 0.86 0.51 - 1.30 mg/dL [facility] Albumin 4.1 3.5 - 5.2 gm/dL [facility] Total Protein 7.0 6.4 - 8.3 gm/dL [facility] Bili Total 0.3 0.1 - 1.3 mg/dL [facility] AST 17 <=40 IU/L [facility] ALT 16 <=41 IU/L [facility] Alk Phos 69 35 - 104 IU/L [facility] GFR Afr Am >60 [facility] GFR Non Afr Am >60 [facility] Blood specimen (specimen) UPPER LIMB STRUCTURE / Unknown 10/07/2015 9:32 AM EDT 10/07/2015 11:58 AM EDT Thea Rubio MD CHEMISTRY ORDERABLES Edite d Result - Final Performing Organization Address City/[facility]/ZIP Co de Phone Number [facility] [address] [place] [address] * CBC WITH AUTO DIFF (10/07/2015 9:32 AM EDT) WBC 7.9 4.0 - 11.0 x10(3)/mcL [facility] RBC 4.64 3.80 - 5.10 x10(6)/mcL [facility] Hgb 12.8 12.0 - 15.6 gm/dL [facility] Hct 39.5 35.7 - 45.9 % [facility] MCV 85.1 82.5 - 99.8 fL [facility] MCH 27.6 27.0 - 34.3 pg [facility] MCHC 32.4 32.1 - 35.3 gm/dL [facility] RDW 13.5 11.5 - 15.0 % [facility] Platelet 298 144 - 423 x10(3)/mcL [facility] MPV 8.3 6.8 - 10.8 fL [facility] Blood specimen (specimen) UPPER LIMB STRUCTURE / Unknown 10/07/2015 9:32 AM EDT 10/07/2015 9:32 AM EDT us Thea Rubio MD HEMATOLOGY ORDERABLES Antonia l Result Performing Organization Address City/[facility]/ZIP Co de Phone Number [facility] [address] [place] [address] documented in this encounter Visit Diagnoses Diagnosis Well adult exam Routine general medical examination at a health care facility documented in this encounter Care Teams Social Science Manager Relationship Specialty Start Date End Date Thea Rubio MD PCP - General Family Medicine 09/13/14 07/16/22 documented as of this encounter
--- OUTSIDE RECORDS SUMMARY | 2024-03-14 18:22 | XMS_ITS | Encounter Summary ---
Author Organization [place] [address] Care Team Providers Care Dry Cans Back Tender Name Role Phone Thea Rubio MD Primary Care Provider +1- [phone] Reason for Visit * Reason Comments Breast Mass left Encounter Details Date Type Department Care Team (Late st Contact Info) Description 10/25/2015 4:00 PM EDT Office Visit [facility] [address] [place] [address] Thea Rubio MD [address] [place] [address] Fibrocystic disease of both breasts (Primary Dx) Social History Tobacco Use Types [...] Sign Reading Time Taken Comments Blood Pressure 120/84 10/25/2015 4:21 PM EDT Pulse 80 10/25/2015 4:21 PM EDT Temperature 36.9 ??C (98.4 ??F) 10/25/2015 4:21 PM ED T Respiratory Rate - - Oxygen Saturation - - Inhaled Oxygen Concentration - - Weight 82.4 kg (181 lb 9.6 oz) 10/25/2015 4:21 P M EDT Height 166.4 cm (5' 5.5 ) 10/25/2015 4:21 PM EDT Body Mass Index 29.76 10/25/2015 4:21 PM EDT documented in this encounter Progress Notes * Thea Rubio MD - 10/25/2015 4:48 PM EDT Subjective: Patient ID: Gardenia Childress is a 35 y.o. female. Chief Complaint Patient presents with ??? Breast Mass left HPI: Patients past medical, family and social histories were reviewed and updated. There were no changesexcept as noted. On 10-21-15, found knot in L breast about dime sized, inner upper breast, NOT tender. By nextday, knot couldn't be found again. LMP usually at end of month ? Date. No nipple d/c. No knots under arms. Thinks she has had calcium deposits in her breasts noted on exam by other MD in past. Notes dimpling in L breast at area of previous lump. Did have lots discomfort in breasts yrs ago when drank lots Dr. Pepper with caffeine and sugar. MGM had breast CA, ? Age. Outpatient Prescriptions Marked as Taking for the 10/25/15 encounter (Office Visit) with Thea Rubio MD [...] when having migraine flares. 270 Tab 1 Review of Systems Skin: Negative for rash. All other systems reviewed and are negative. Objective: Filed Vitals: 10/25/15 1621 BP: 120/84 Pulse: 80 Temp: 98.4 ??F (36.9 ??C) TempSrc: Oral Height: 5' 5.5 (1.664 m) Weight: 181 lb 9.6 oz (82.373 kg) Body mass index is 29.75 kg/(m^2). Physical Exam Constitutional: She appears well-developed and well-nourished. Neck: Normal range of motion. Neck supple. No tracheal deviation present. No thyromegaly present. Cardiovascular: Normal rate, regular rhythm and normal heart sounds. Exam reveals no gallop. No murmur heard. No carotid bruits Pulmonary/Chest: Effort normal and breath sounds normal. Right breast exhibits no inverted nipple, no mass, no nipple discharge, no skin change and no tenderness. Left breast exhibits no inverted nipple, no mass, no nipple discharge, no skin change and no tenderness. Breasts are symmetrical. No dimpling or discrete mass now in either breast but bilateral mod fibrocystic texture. Lymphadenopathy: She has no cervical adenopathy. She has no axillary adenopathy. Nursing note and vitals reviewed. Assessment and Plan: Gardenia was seen today for breast mass. Diagnoses and all orders for this visit: Fibrocystic disease of both breasts-mass at found one day was gone by the next day,? Cyst. If mass should return and be persistent, will get ultrasound. Encouraged patient to stop drinking regular Dr. Pepper with caffeine Return if symptoms worsen or fail to improve. documented in this encounter Miscellaneous Notes * Patient Instructions - Thea Rubio MD - 10/25/2015 4:59 PM EDT Images from the original note were not included. Fibrocystic Breast Changes Fibrocystic breast changes occur when breast ducts become blocked, causing painful, fluid-filled lumps (cysts) to form in the breast. This is a common condition that is noncancerous (benign). It occurs when women go through hormonal changes during their menstrual cycle. Fibrocystic breast changes can affect one or both breasts. CAUSES The exact cause of fibrocystic breast changes is not known, but it may be related to the female hormones estrogen and progesterone. Family traits that get passed from parent to child (genetics) may also be a factor in some cases. SIGNS AND SYMPTOMS ?? Tenderness, mild discomfort, or pain. ? Swelling. ? Ropelike feeling when touching the breast. ? Lumpy breast, one or both sides. ? Changes in breast size, especially before (larger) and after (smaller) the menstrual period. ? Green or dark brown nipple discharge (not blood). ?? Symptoms are usually worse before menstrual periods start and get better toward the end of the menstrual period. DIAGNOSIS To make a diagnosis, your health care provider will ask you questions and perform a physical exam of your breasts. The health care provider may recommend other tests that can examine inside your breasts, such as: ?? A breast X-ray (mammogram). ? Ultrasonography.? An MRI. ?? If something more than fibrocystic breast changes is suspected, your health care provider may take a breast tissue sample (breast biopsy) to examine. TREATMENT Often, treatment is not needed. Your health care provider may recommend [id number] pain relievers to help lessen pain or discomfort caused by the fibrocystic breast changes. You may also be asked to change your diet to limit or stop eating foods or drinking beverages that contain caffeine. Foods and beverages that contain caffeine include chocolate, soda, coffee, and tea. Reducing sugar andfat in your diet may also help. Your health care provider may also recommend: ?? Fine needle aspiration to remove fluid from a cyst that is causing pain. ? Surgery to remove a large, persistent, and tender cyst. HOME CARE INSTRUCTIONS ?? Examine your breasts after every menstrual period. If you do not have menstrual periods, check your breasts the first day of every month. Feel for changes, such as more tenderness, a new growth, achange in breast size, or a change in a lump that has always been there. ? Only take tywq-xnb-nljfyfe or prescription medicine as directed by your health care provider. ? Wear a well-fitted support or sports bra, especially when exercising. ? Decrease or avoid caffeine, fat, and sugar in your diet as directed by your health care provider. ?? SEEK MEDICAL CARE IF: ?? You have fluid leaking (discharge) from your nipples, especially bloody discharge. ? You have new lumps or bumps in the breast. ? Your breast or breasts become enlarged, red, and painful. ? You have areas of your breast that pucker in. ? Your nipples appear flat or indented. ?? Document Released: 01/22/2007 Document Revised: 04/12/2014 Document Reviewed: 09/26/2013 ExitCare?? Patient Information ??2015 [employer]. This information is not intended to replace advice given to you by your health care provider. Make sure you discuss any questions you have with your health care provider. documented in this encounter Plan of Treatment Upcoming Encounters Date Type Department Care Team (Late st Contact Info) Description 04/24/2024 10:45 AM EST Clinical Support [facility] [address] [place] [phone] documented as of this encounter Visit Diagnoses Diagnosis Fibrocystic disease of both breasts- Primary documented in this encounter Care Teams Dry Cans Back Tender Relationship Specialty Start Date End Date Thea Rubio MD PCP - General Family Medicine 09/13/14 07/16/22 documented as of this encounter
--- OUTSIDE RECORDS SUMMARY | 2024-03-14 18:22 | XMS_ITS | Encounter Summary ---
Author Organization [place] [address] Care Team Providers Care Supply Chain Planner Name Role Phone Thea Rubio MD Primary Care Provider +1- [phone] Reason for Visit * Reason Onset Date Comments Other 12/26/2015 Encounter Details Date Type Department Care Team (Late st Contact Info) Description 12/26/2015 Telephone [facility] [address] [place] [address] Thea Rubio MD [address] [place] [id number] Other Social History Tobacco Use Types Packs/Day [...] Telephone Encounter - Thea Rubio MD - 12/26/2015 5:59 PM EDT Spoke with pt. 3 wks ago, pt seemed to pull something behind Rt knee without hyperextension (did itwhile walking). Sx occurred 3 wks ago and recurred [address] Overton last wk. Had x-ray, NL. Knee occ tries to lock up, d/n give away. No swelling. Dr. Overton ordered PT and pt not sure it will help. A/ Due to lack of swelling, agree with PT trial to help strengthen and protect knee no matter what the cause. Pt understands and will do PT. If sx not better or worsens, contact Dr. Overton on further rx, ? MRI * Telephone Encounter - Bernarda Barrios - 12/26/2015 1:36 PM EDT The best time to reach pt is after 3:30 Pt saw PSK last week about R knee, pt thinks she pulled something in the back of it twice in 2 daysabout 3 or 4 weeks ago. Pt would like to speak with AGT about physical therapy PSK recommended since AGT is her primary Dr. Pt doesn't think that that's what she needs she does a lot of bending and squatting at work. Please advise. documented in this encounter Plan of Treatment Upcoming Encounters Date Type Department Care Team (Late st Contact Info) Description 04/24/2024 10:45 AM EST Clinical Support [facility] [address] [place] [address] documented as of this encounter Visit Diagnoses Not on filedocumented in this encounter Care Teams Supply Chain Planner Relationship Specialty Start Date End Date Thea Rubio MD PCP - General Family Medicine 09/13/14 07/16/22 documented as of this encounter
--- OUTSIDE RECORDS SUMMARY | 2024-03-14 18:22 | XMS_ITS | Encounter Summary ---
Author Organization [place] [address] Care Team Providers Care Plastics Technician Name Role Phone Thea Rubio MD Primary Care Provider [phone]- [phone] Reason for Visit * Reason Comments Gynecologic Exam Encounter Details Date Type Department Care Team (Late st Contact Info) Description 04/18/2017 2:00 PM EST Office Visit [facility] [address] [place] [address] Thea Rubio MD [address] [place] [address] [phone] Well adult exam (Primary Dx); Visit for gynecologic examination Social History Tobacco Use Types Packs/Day Years [...] Sign Reading Time Taken Comments Blood Pressure 110/74 04/18/2017 1:48 PM EST Pulse 76 04/18/2017 1:48 PM EST Temperature 36.6 ??C (97.9 ??F) 04/18/2017 1:48 PM ES T Respiratory Rate - - Oxygen Saturation - - Inhaled Oxygen Concentration - - Weight 65.8 kg (145 lb) 04/18/2017 1:48 PM EST Height 165.1 cm (5' 5 ) 04/18/2017 1:48 PM EST Body Mass Index 24.13 04/18/2017 1:48 PM EST documented in this encounter Progress Notes * Thea Rubio MD - 04/18/2017 2:00 PM EST Subjective Chief Complaint Patient presents with ??? Gynecologic Exam Sister had uterine and ovarian CA, another sister and mom had pre-CA cervical cells. No know exposure to JAYNA in utero. Not exercising much now. 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 Alcohol use 0.0 oz/week Comment: 2-3 drink every 3-4 mos. ??? [...] General (Family Medicine) Review of Systems Respiratory: Negative for chest tightness. Cardiovascular: Negative for chest pain. Genitourinary: Negative for menstrual problem. All other systems reviewed and are negative. no breast lumps Objective BP 110/74 (BP Location: Left arm, Patient Position: Sitting) Pulse 76 Temp 97.9 ??F (36.6 ??C) (Oral) Ht 5' 5 (1.651 m) Wt 145 lb (65.8 kg) BMI 24.13 kg/m?? Physical Exam Constitutional: She is oriented [...] was performed with patient supine. Genitourinary Comments: No breast masses but mod fibrocystic changes bilat. Pap done with broom. Bimanual normal. Lymphadenopathy: [...] 10/07/2015 GLU 90 10/07/2015 TSHREFLEX 2.100 04/23/2016 Diagnoses and all orders for this visit: Well adult exam-doing well, increase exercise. - COMPREHENSIVE METABOLIC PANEL; Future - LIPID SCREEN; Future - TSH REFLEX; Future Visit for gynecologic examination-NL exam [facility] Documentation Medication Compliance: Compliant all the time Understanding of Current Medications: Good Medication Compliance Barriers: None or N/A Self-Management Tools: Home blood pressure monitoring, Home weight monitoring Self-Management Ability: Good Willingness to Adopt Healthy Behaviors: Fair Potential Barriers to completing treatment plans today: No significant barriers [facility] Flowsheet was completed/reviewed as part of today's visit. Educated patient and spouse regarding the diagnosis, medication/treatment, goals, self-management tools and instructions based on their care plan. They verbalized understanding of the education givenon the After Visit Summary [AVS] for today's visit. A copy of the AVS was provided either in writing and/or via [employer]. A new medicine was not prescribed on this visit. documented in this encounter Miscellaneous Notes * Patient Instructions - Thea Rubio MD - 04/18/2017 2:00 PM EST Current Exercise Recommendations, [place] Dept of Health [...] Addendum Note - Susan Oliveira RMA - 04/18/2017 2:00 PM ESTAddended by: SUSAN OLIVEIRA on: 04/18/2017 02:28 PM Modules accepted: Orders documented in this encounter Plan of Treatment Upcoming Encounters Date Type Department Care Team (Late st Contact Info) Description 04/24/2024 10:45 AM EST Clinical Support [facility] [address] [place] [address] documented as of this encounter Goals Goal Patient Goal Type Associated Problems Recent Progress Patient-Stated? Author Maintain a healthy diet, exercise regularly and maintain an ideal body weight General No Thea Rubio MD Stay Tobacco Free Lifestyle No Thea Rubio MD documented as of this encounter Procedures Procedure Name Priority Date/Time Associated Diagnosis Comments SUPERVISOR PASTE MIXING CYTOLOGY REQUEST (PAP ONLY) Routine 04/18/2017 2:30 PM EST Visit for gynecologic examination [facility] SUPERVISOR PASTE MIXING CYTOLOGY ORDER Routine 04/18/2017 2:30 PM EST Visit for gynecologic examination HPV HIGH RISK Routine 04/18/2017 2:30 PM EST Visit for gynecologic examination documented in this encounter Results * TSH REFLEX (05/14/2017 12:04 PM EST) TSH Reflex 2.240 0.270 - 4.200 mcIU/mL 05/14/2017 6:13 PM EST [facility] Blood Venipuncture / Unknown 05/14/2017 12:04 PM EST 05/14/2017 12:04 PM EST us Thea Rubio MD CHEMISTRY ORDERABLES Final Result [facility] [address] [place] [address] * LIPID SCREEN (05/14/2017 12:04 PM EST) Cholesterol 154 <=200 mg/dL 05/14/2017 6:13 PM EST [facility] Comment: < 200 ?Desirable 200 - 239 ? Borderline High >= 240 ?High Triglyceride 67 <=150 mg/dL 05/14/2017 6:13 PM EST [facility] Comment: < 150 ? Normal 150 - 199 ?Borderline High 200 - 499 ?High ??>= 500 ? Very High HDL 68 >=40 mg/dL 05/14/2017 6:13 PM EST [facility] Comment: ??> 60 ?Optimal 40 - 60 ?Acceptable ?? < 40 ?Low LDL Calculated 73 <=100 mg/dL 05/14/2017 6:13 PM EST [facility] Comment: < 100 ?Optimal 100 - 129 ? Near or above optimal 130 - 159 ? Borderline High 160 - 189 ? High >= 190 ?Very High Non-HDL-C Calculated 86 <=129 mg/dL 05/14/2017 6:13 PM EST [facility] Comment: <130 ?Desirable 130-159 Above Desirable 160-189 Borderline High 190-219 High >= 220 ??Very High Blood Venipuncture / Unknown 05/14/2017 12:04 PM EST 05/14/2017 12:04 PM EST us Thea Rubio MD CHEMISTRY ORDERABLES Final Result [facility] [address] [place] [address] * (ABNORMAL) COMPREHENSIVE METABOLIC PANEL (05/14/2017 12:04 PM EST) Pathologist [facility] Sodium 141 136 - 145 mmol/L 05/14/2017 6:13 PM [facility] Potassium 3.9 3.5 - 5.0 mmol/L 05/14/2017 6:13 PM [facility] Chloride 108(H) 98 - 107 mmol/L 05/14/2017 6:13 PM [facility] Total CO2 21(L) 22 - 29 mmol/L 05/14/2017 6:13 PM [facility] Anion Gap 12 7 - 16 mmol/L 05/14/2017 6:13 PM [facility] Calcium 8.9 8.6 - 10.2 mg/dL 05/14/2017 6:13 PM [facility] Glucose Lvl 75 74 - 100 mg/dL 05/14/2017 6:13 PM [facility] BUN 11 6 - 20 mg/dL 05/14/2017 6:13 PM [facility] Creatinine 0.80 0.51 - 1.30 mg/dL 05/14/2017 6:13 PM [facility] Albumin 4.2 3.5 - 5.2 gm/dL 05/14/2017 6:13 PM [facility] Total Protein 7.0 6.4 - 8.3 gm/dL 05/14/2017 6:13 PM [facility] Bili Total 0.4 0.1 - 1.3 mg/dL 05/14/2017 6:13 PM [facility] ALT 11 <=41 IU/L 05/14/2017 6:13 PM [facility] AST 15 <=40 IU/L 05/14/2017 6:13 PM [facility] Alk Phos 67 35 - 104 IU/L 05/14/2017 6:13 PM [facility] GFR Afr Am 110 mL/min/1.7 3 m2 05/14/2017 6:13 PM [facility] GFR Non Afr Am 96 mL/min/1.7 3 m2 05/14/2017 6:13 PM [facility] Comment: GFR Afr Am and [...] Thea Rubio MD CHEMISTRY ORDERABLES Final Result [facility] [address] [place] [address] * HPV HIGH RISK (04/18/2017 2:30 PM EST) HPV HR Not Detected Not Detected 04/24/2017 6:35 PM EST [facility] Thin Prep SPECIMEN FROM UTERINE CERVIX / Unknown 04/18/2017 2:30 PM EST 04/23/2017 3:49 PM EST Narrative [facility] - 04/24/2017 6:35 PM EST This test was performed using [...] with other available laboratory and clinical data.?? Thea Rubio MD MICROBIOLOGY - GENERAL ORD ERABLES Final Result [facility] [address] [place] [address] * (ABNORMAL) SUPERVISOR PASTE MIXING CYTOLOGY REQUEST (PAP ONLY) (04/18/2017 2:30 PM EST) CASE REPORT Gynecologic Cytology Report ? Case: [id number] ? Authorizing Provider: ??Thea Rubio MD ?Collected: ? 04/18/2017 1430 ? Ordering Location: ? [facility] ? Received: ?04/18/2017 1430 ? First Screen: ?Lauren De Anda, CT ? Pathologist: ? Nury Jerry MD ? Specimen: ?LIQUID-BASED PAP - CERVICAL, Cervix ? 04/23/2017 3:49 PM EST [facility] PAP FINAL DIAGNOSIS Atypical squamous cells of undetermined significance(A) 04/23/2017 3:49 PM [facility] SMEAR ADEQUACY Satisfactory for evaluation 04/23/2017 3:49 PM EST [facility] ENDOCERVICAL T-ZONE Transformation zone present 04/23/2017 3:49 PM EST [facility] EMBEDDED IMAGES 8 3:49 PM [facility] PAP DISCLAIMER The Pap Smear is a screening test that aids in the detection of cervical cancer and cancer precursors. Both false positive and false negative results can occur. The test should be used at regular intervals, and positive results should be confirmed before definitive therapy. 04/23/2017 3:49 PM EST [facility] Thin Prep SPECIMEN FROM UTERINE CERVIX / Unknown 04/18/2017 2:30 PM EST 04/18/2017 2:30 PM EST us Thea Rubio MD CYTOLOGY ORDERABLES Final Result [facility] [address] [place] [address] documented in this encounter Visit Diagnoses Diagnosis Well adult exam- Primary Routine general medical examination at a health care facility Visit for gynecologic examination Routine gynecological examination documented in this encounter Care Teams Plastics Technician Relationship Specialty Start Date End Date Thea Rubio MD PCP - General Family Medicine 09/13/14 07/16/22 documented as of this encounter
--- OUTSIDE RECORDS SUMMARY | 2024-03-14 18:22 | XMS_ITS | Encounter Summary ---
Author Organization [place] [address] Care Team Providers Care Lithoplate Maker Name Role Phone Thea Rubio MD Primary Care Provider +1- [phone] Encounter Details Date Type Department Care Team (Latest Contact Info) Description 01/20/2017 8:17 PM EDT - 01/20/2017 11:59 PM EDT Hospital Encounter [facility] ALEJANDRO PROCESSING [facility] [place] [address] Calculus of upper urinary tract (Primary Dx) Discharge Disposition: Home or Self [...] [facility] [address] [place] [address] documented as of this encounter Goals Goal Patient Goal Type Associated Problems Recent Progress Patient-Stated? Author Maintain a healthy diet, exercise regularly and maintain an ideal body weight General No Thea Rubio MD Stay Tobacco Free Lifestyle No Thea Rubio MD documented as of this encounter Procedures Procedure Name Priority Date/Time Associated Diagnosis Comments CALCULI (STONE) ANALYSIS - REF LAB Routine 01/20/2017 1:00 PM EDT Calculus of upper urinary tract documented in this encounter Results * CALCULI (STONE) ANALYSIS - REF LAB (01/20/2017 1:00 PM EDT) Calculi Comp See Note [employer] Comment: Calculi composed primarily of: 40% calcium oxalate dihydrate, and 60% calcium phosphate (hydroxy- and carbonate- apatite). INTERPRETIVE INFORMATION: Calculi (Stone) analysis Calculi are the products of physiological processes that yield crystalline compounds in a matrix of biological compounds and blood. ??Matrix components are not reported. ??The clinically significant crystalline components identified in calculi specimens are reported. ??Gross description may not be consistent with composition determined by FTIR analysis. Performed by [facility], ? [address] [place], [place] [id number] ? [email or web address], Vinayak Barrera MD - Lab. Director Calculi Mass 5 mg [employer] Calculi Number 2 [employer] Calculi Size 1 to 4 mm [employer] Calculi Desc See Note [employer] Comment: Specimen consists of two, small, brown/hernandez, irregular calculi fragments. Stone 01/20/2017 1:00 PM EDT 01/20/2017 11:23 PM EDT us Anderson Irwin MD MICROBIOLOGY - GENERAL ORD ERABLES Final Result [facility] [address] [place], [place] [id number] documented in this encounter Visit Diagnoses Diagnosis Calculus of upper urinary tract- Primary documented in this encounter Care Teams Lithoplate Maker Relationship Specialty Start Date End Date Thea Rubio MD PCP - General Family Medicine 09/13/14 07/16/22 documented as of this encounter
--- OUTSIDE RECORDS SUMMARY | 2024-03-14 18:22 | XMS_ITS | Encounter Summary ---
Author Organization [place] [address] Care Team Providers Care Cash Teller Name Role Phone Thea Rubio MD Primary Care Provider +1- [phone] Reason for Visit * Reason Comments Migraine Thyroid Problem Encounter Details Date Type Department Care Team (Late st Contact Info) Description 04/19/2016 7:45 AM EST [facility] [address] [place] [address] Thea Rubio MD [address] [place], [place] [phone] Alopecia (Primary Dx); Migraine without aura and without status migrainosus, not intractable Social History Tobacco Use Types Packs/Day Years [...] Sign Reading Time Taken Comments Blood Pressure 120/60 04/19/2016 7:37 AM EST Pulse 74 04/19/2016 7:37 AM EST Temperature 36.6 ??C (97.9 ??F) 04/19/2016 7:37 AM ES T Respiratory Rate - - Oxygen Saturation - - Inhaled Oxygen Concentration - - Weight 73 kg (161 lb) 04/19/2016 7:37 AM EST Height 165.1 cm (5' 5 ) 04/19/2016 7:37 AM EST Body Mass Index 26.79 04/19/2016 7:37 AM EST documented in this encounter Progress Notes * Thea Rubio MD - 04/19/2016 7:45 AM EST Subjective Subjective: Patient ID: Gardenia Childress is a 36 y.o. female. Chief Complaint Patient presents with ??? Migraine ??? Thyroid Problem HPI: Patients past medical, family and social histories were reviewed and updated. There were no changesexcept as noted. Still has ORTEGA, mostly around menses, eg 2-3 ORTEGA a mo, and Imitrex helps. not able to get pt so no issues with her meds. 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 Wonders re her TH. Hair on head seems to be thinning for over 1 yr. No hair loss elsewhere. No change in sweating, bowels. Is working on losing wt. Has lost 29 # since May 2015. Goal wt 150 #. Outpatient Prescriptions Marked as Taking for the 04/19/16 encounter (Office Visit) with Thea Rubio MD Medication Sig Dispense Refill ??? [DISCONTINUED] albuterol (PROVENTIL HFA;VENTOLIN HFA) 90 mcg/actuation Inhl HFA Aerosol InhalerInhale 1-2 Puffs into the lungs every 6 hours as needed for Wheezing. 1 Inhaler 0 ??? dicyclomine (BENTYL) 10 mg Oral Capsule Take 10 mg by mouth 4 times daily as needed (for crampsafter menses). ??? SUMAtriptan (IMITREX) 25 mg Oral Tablet Take 1 Tab by mouth as needed for Migraine. 9 Tab 5 ??? topiramate (TOPAMAX) 50 mg Oral Tablet Take 1 Tab by mouth 2 times daily. May add extra pill atnight when having migraine flares. 270 Tab 1 Review of Systems Neurological: Positive for headaches. All other systems reviewed and are negative. Objective Objective: Vitals: 04/19/16 0737 BP: 120/60 BP Location: Left arm Patient Position: Sitting Pulse: 74 Temp: 97.9 ??F (36.6 ??C) TempSrc: Oral Weight: 161 lb (73 kg) Height: 5' 5 (1.651 m) Body mass index is 26.79 kg/(m^2). Physical Exam Constitutional: She appears well-developed [...] cervical adenopathy. Nursing note and vitals reviewed. mild to mod thinning scalp, no spots of loss. Lab Results Component Value Date WBC 7.9 10/07/2015 HGB 12.8 10/07/2015 HCT 39.5 10/07/2015 PLT 298 10/07/2015 CHOLESTEROL 174 10/07/2015 TRIG 71 10/07/2015 HDL 50 10/07/2015 LDLCALC 110 (H) 10/07/2015 ALT 16 10/07/2015 AST 17 10/07/2015 NA 141 10/07/2015 K 4.4 10/07/2015 CL 109 (H) 10/07/2015 CREATININE 0.86 10/07/2015 BUN 9 10/07/2015 CO2 21 (L) 10/07/2015 GLU 90 10/07/2015 TSHREFLEX 1.600 10/07/2015 . Assessment and Plan: Gardenia was seen today for migraine and thyroid problem. Diagnoses and all orders for this visit: Alopecia-?? 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 Excellent wt decrease. Try Biotin for hair and nails - TSH Reflex; Future - T4, FREE (Thyroxine); Future Migraine without aura and without status migrainosus, not intractable-stable on meds. Return in about 6 months (around 10/18/2016), or if symptoms worsen or fail to improve. documented in this encounter Miscellaneous Notes * Patient Instructions - Thea Rubio MD - 04/19/2016 7:45 AM EST Telogen effluvium due to wt loss. Excellent wt decrease. Try Biotin for hair and nails documented in this encounter Plan of Treatment Upcoming Encounters Date Type Department Care Team (Late st Contact Info) Description 04/24/2024 10:45 AM EST Clinical Support [facility] [address] [place] [address] documented as of this encounter Procedures Procedure Name Priority Date/Time Associated Diagnosis Comments SCANNED LABS 07/09/2016 2:14 PM EDT documented in this encounter Results * SCANNED LABS (07/09/2016 2:14 PM EDT) 07/09/2016 2:14 PM EDT us Unknown Unknown HEMATOLOGY ORDERABLES Final Resu lt * T4, FREE (THYROXINE) (04/23/2016 4:41 PM EST) Free T4 1.06 0.80 - 2.00 ng/dL [facility] Blood specimen (specimen) 04/23/2016 4:41 PM EST 04/23/2016 7:53 PM EST us Thea Rubio MD CHEMISTRY ORDERABLES Final Result Performing Organization Address City/[facility]/[place] [address] * TSH REFLEX (04/23/2016 4:41 PM EST) TSH Reflex 2.100 0.270 - 4.200 mcIU/mL [facility] Blood specimen (specimen) UPPER LIMB STRUCTURE / Unknown 04/23/2016 4:41 PM EST 04/23/2016 7:53 PM EST us Thea Rubio MD CHEMISTRY ORDERABLES Final Result Performing Organization Address City/[facility]/[place] [address] documented in this encounter Visit Diagnoses Diagnosis Alopecia- Primary Alopecia, unspecified Migraine without aura and without status migrainosus, not intractable Migraine without aura, without mention of intractable migraine without mention of status migrainosus documented in this encounter Discontinued Medications Medication Sig Discontinue Reason Start Date End Da te albuterol (PROVENTIL HFA;VENTOLIN HFA) 90 mcg/actuation Inhl HFA Aerosol Inhaler Inhale 1-2 Puffs into the lungs every 6 hours as needed for Wheezing. DELETE-Therapy completed 06/11/2015 04/19/2016 naproxen (NAPROSYN) 500 mg Oral TabletIndications:Right knee pain, unspecified chronicity Take 1 Tab by mouth 2 times daily with meals as needed for Pain. DELETE-Therapy completed 12/22/2015 04/19/2016 documented as of this encounter Care Teams Cash Teller Relationship Specialty Start Date End Date Thea Rubio MD PCP - General Family Medicine 09/13/14 07/16/22 documented as of this encounter
--- OUTSIDE RECORDS SUMMARY | 2024-03-14 18:23 | XMS_ITS | Encounter Summary ---
Author Organization [place] [address] Care Team Providers Care Community Fundraiser Name Role Phone Yuliet Norman MD Primary Care Provider [phone] Reason for Visit * Reason Comments Emesis nausea since this af ternoon; Emesis x 1 a few min ago Headache posterior h/a, start ed at same time as nausea; Cpta, Diclofenac Encounter Details Date Type Department Care Team (Late st Contact Info) Description 02/27/2013 8:13 PM EST - 02/27/2013 9:58 PM EST Emergency [facility] [address] [place] [address] Matthew Salas MD [address] [place] [id number] Cephalgia (Primary Dx) Discharge Disposition: Home or Self Care Social History Tobacco Use Types Packs/Day Years Used Date Smoking Tobacco: Former Smokeless Tobacco: Never Alcohol Use Standard Drinks/Week Comments No 0 (1 standard drink = 0.6 oz pur e alcohol) Comments No Sex and Gender Information Value Date Recorded Sex Assigned at Not on file Legal Sex Female 1:46 PM EDT Gender Identity Not on file Sexual Orientation Not on file documented as of this encounter Last Filed Vital Signs Vital Sign Reading Time Taken Comments Blood Pressure 108/70 02/27/2013 9:57 PM EST Pulse 90 02/27/2013 9:57 PM EST Temperature 36.9 ??C (98.4 ??F) 02/27/2013 7:58 PM ES T Respiratory Rate 16 02/27/2013 9:57 PM EST Oxygen Saturation 99% 02/27/2013 9:57 PM EST Inhaled Oxygen Concentration - - Weight 82.1 kg (181 lb) 02/27/2013 7:58 PM EST Height 165.1 cm (5' 5 ) 02/27/2013 7:58 PM EST Body Mass Index 30.12 02/27/2013 7:58 PM EST documented in this encounter Discharge Instructions * Discharge Instructions* Matthew Salas MD - 02/27/2013 9:05 PM EST Fluids rest, return to emergency room if worse. documented in this encounter Discharge Disposition Disposition Code Departure Means Destination Home or Self Shelter documented in this encounter ED Notes * Matthew Salas MD - 02/27/2013 9:05 PM EST Chief Complaint Patient presents with ??? Emesis nausea since this afternoon; Emesis x 1 a few min ago ??? 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 She has history of recurrent headaches. This seems to be a bit worse and usual. She denies fever, chills or neck pain. Took [id number] Tylenol Motrin home without relief. She continues to vomit. Pain moderate to severe rated a 7/10. The history is provided by the patient. Allergies Allergen Reactions ??? Aspirin ??? Morphine Nausea And Vomiting Home Medications: Prior to Admission medications Medication Sig Start Date End Date Taking? Authorizing Provider diclofenac (VOLTAREN) 75 mg EC tablet Take 75 mg by mouth 2 times daily as needed. Yes Provider, Historical Past Medical History: Past Medical History Diagnosis Date ??? 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 Biliary atresia Social History: reports that she has quit smoking. She has never used smokeless tobacco. She reports that she does not drink alcohol or use illicit drugs. Family History: No family history on file. Surgical History: Past Surgical History Procedure Laterality Date ??? Abdomen surgery for bile duct ??? Appendectomy ??? Cholecystectomy Review of Systems All other systems reviewed and are negative. Blood pressure 117/67, pulse 101, temperature 98.4 ??F (36.9 ??C), resp. rate 15, height 5' 5 (1.651 m), weight 181 lb (82.101 kg), last menstrual period 02/18/2013, SpO2 100.00%. Physical Exam Nursing note and vitals reviewed. Constitutional: She is oriented to person, place, and time. She appears well- developed and well-nourished. No distress. HENT: Mouth/Throat: Oropharynx is clear and moist. Eyes: Conjunctivae and EOM are normal. Pupils are equal, round, and reactive to light. Neck: Normal range of motion. Neck supple. Cardiovascular: Normal rate and regular rhythm. Exam reveals no gallop and no friction rub. No murmur heard. Pulmonary/Chest: Effort normal and breath sounds normal. Abdominal: Soft. Bowel sounds are normal. She exhibits no distension. There is no tenderness. Musculoskeletal: She exhibits no edema. Lymphadenopathy: She has no cervical adenopathy. Neurological: She is alert and oriented to person, place, and time. She has normal reflexes. No cranial nerve deficit. Skin: Skin is warm and dry. No rash noted. Psychiatric: She has a normal mood and affect. Procedures Radiology/EKG/Labs: ED Course: Patient treated with IV Dilaudid, Zofran and Decadron. She reported immediate relief of symptoms. ED Clinical Impression: Cephalgia (primary encounter diagnosis) Condition at Discharge/Transfer from Department: Stable This chart was completed using voice recognition technology and may contain unintended errors Matthew Salas MD 03/03/13 1731 documented in this encounter Plan of Treatment Upcoming Encounters Date Type Department Care Team (Late st Contact Info) Description 04/24/2024 10:45 AM EST Clinical Support [facility] [address] [place] [address] documented as of this encounter Visit Diagnoses Diagnosis Cephalgia- Primary Headache documented in this encounter Administered Medications Inactive Administered Medications - up to 1 most recent administrations Medication Order MAR Action Action Date Dose Rate Site dexamethasone (DECADRON) injection 5 mg 5 mg, Intravenous, ONCE, 1 dose, On 02/27/13 at 2030 Given 02/27/2013 8:55 PM EST 5 mg HYDROmorphone (DILAUDID) 1 mg/mL injection 1 mg 1 mg, Intravenous, ONCE, 1 dose, On 02/27/13 at 2030 Given 02/27/2013 8:54 PM EST 1 mg ondansetron (ZOFRAN) 4 mg/2 mL injection 4 mg 4 mg, Intravenous, ONCE, 1 dose, On 02/27/13 at 2029 Given 02/27/2013 8:53 PM EST 4 mg sodium chloride 0.9 % 1,000 mL IV bolus Intravenous, ONCE, 1 dose, On 02/27/13 at 2030, at 1,000 mL/hr IV Started 02/27/2013 8:52 PM EST 1000 mL/hr documented in this encounter Active and Recently Administered Medications Times are shown in EST. Scheduled Medication Order 02/25/2013 02/26/2013 02/27/2013 dexamethasone (DECADRON) injection 5 mg (COMPLETED) 5 mg, Intravenous, ONCE, 1 dose, On 02/27/13 at 2029 2054 (Given - Provid er: Shara Raphael, IVETTE) HYDROmorphone (DILAUDID) 1 mg/mL injection 1 mg (COMPLETED) 1 mg, Intravenous, ONCE, 1 dose, On 02/27/13 at 2029 2053 (Given - Provid er: Shara Raphael, IVETTE) ondansetron (ZOFRAN) 4 mg/2 mL injection 4 mg (COMPLETED) 4 mg, Intravenous, ONCE, 1 dose, On 02/27/13 at 2029 2052 (Given - Provid er: Shara Raphael, IVETTE) sodium chloride 0.9 % 1,000 mL IV bolus (COMPLETED) Intravenous, ONCE, 1 dose, On 02/27/13 at 2029, at 1,000 mL/hr 2051 (IV Started - P rovider: Shara Raphael RN)2148 (IV STOP - Provider: Sandy Mayberry RN)2151 (Due: IV STOP - Provider: Shara Raphael, IVETTE) documented in this encounter Care Teams Community Fundraiser Relationship Specialty Start Date End Date Yuliet Norman MD PCP - General 11/22/10 09/12/14 documented as of this encounter
--- OUTSIDE RECORDS SUMMARY | 2024-03-14 18:23 | XMS_ITS | Encounter Summary ---
Author Organization [place] [address] Care Team Providers Care Assembler Knife Name Role Phone Yuliet Norman MD Primary Care Provider Reason for Visit * Reason Comments Otalgia x today has been hav ing right ear, jaw, and neck pain. States unsure if it is more her teeth or ear. Denies discharge from ear. Encounter Details Date Type Department Care Team (Late st Contact Info) Description 03/13/2011 6:35 PM EST - 03/13/2011 7:14 PM EST Emergency [facility] [address] [place] [address] Genaro Savage MD [address] [place] [address] TMJ inflammation Discharge Disposition: Home or Self Care Social History Tobacco Use Types Packs/Day Years Used Date Smoking Tobacco: Former Alcohol Use Standard Drinks/Week Comments No 0 [...] Sign Reading Time Taken Comments Blood Pressure 119/80 03/13/2011 6:29 PM EST Pulse 68 03/13/2011 6:29 PM EST Temperature 36.6 ??C (97.9 ??F) 03/13/2011 6:29 PM ES T Respiratory Rate 18 03/13/2011 6:29 PM EST Oxygen Saturation 100% 03/13/2011 6:29 PM EST Inhaled Oxygen Concentration - - Weight 86.2 kg (190 lb) 03/13/2011 6:29 PM EST Height 165.1 cm (5' 5 ) 03/13/2011 6:29 PM EST Body Mass Index 31.62 03/13/2011 6:29 PM EST documented in this encounter Discharge Instructions * Discharge Instructions* Allyn Marie PA-C - 03/13/2011 7:03 PM EST Follow up with primary care physician in two to three days symptoms persist Return to the emergency department if symptoms worsen Ibuprofen as directed Soft diet x 2-3 days symptoms persist Warm compresses to the right neck region * Attachments The following attachments cannot be sent through Care Everywhere. * TEMPOROMANDIBULAR JOINT (TMJ) PAIN-BRIEF (GRENADI[place]) documented in this encounter Medications at Time of Discharge ibuprofen (ADVIL;MOTRIN) 800 mg Take 1 Tab by mouth every 8 hours as needed for 21 doses. 21 Tab 0 03/13/2011 10/09/2012 documented as of this encounter Ordered Prescriptions Prescription Sig Dispense Quantity Refills Last Filled Start Date End Date ibuprofen (ADVIL;MOTRIN) 800 mg Take 1 Tab by mouth every 8 hours as needed for 21 doses. 21 Tab 0 03/13/2011 10/09/2012 documented in this encounter Discharge Disposition Disposition Code Departure Means Destination Home or Self Care documented in this encounter Progress Notes * Unknown, Unknown - 03/15/2011 3:12 AM EST * Unknown, Unknown - 03/15/2011 3:12 AM EST documented in this encounter ED Notes * Ly Moody RN - 03/13/2011 7:14 PM EST Patient/family verbalize understanding discharge instructions. Patient discharged in stable condition, ambulatory without difficulty. * Allyn Marie PA-C - 03/13/2011 7:03 PM EST Chief Complaint Patient presents with ??? Otalgia x today has been having right ear, jaw, and neck pain. States unsure if it is more her teeth or ear. Denies discharge from ear. HPI Comments: Patient is a 31 year old female presenting to the emergency department complaining ofright ear, teeth, and jaw pain since this morning. She describes it as sharp and throbbing worst with opening and closing her mouth. She rates the pain as a 7/10. She states she has had a sensitive right ear for a very long time but no one can ever find what causes it, but not this much pain for awile. she also states she has cavities in most of her teeth for a long time too. She has tried tylenol and naprosyn without relief. She denies fever, nausea, vomiting, drainage from ear or teeth. Shedenies shortness of breath, chest pain, or history of heart problems. The history is provided by the patient. Allergies Allergen Reactions ??? Aspirin Home Medications: Prior to Admission medications Medication Sig Start Date End Date Taking? Authorizing Provider ibuprofen (ADVIL;MOTRIN) 800 mg Take 1 Tab by mouth every 8 hours as needed for 21 doses. 03/13/11 Genaro Savage MD Past Medical History: Past Medical History Diagnosis Date ??? 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 She does not have any smokeless tobacco history on file. She reports that she does not currently drink alcohol. Family History: History reviewed. No pertinent family history. Surgical History: Past Surgical History Procedure Date ??? Abdomen surgery for bile duct Review of Systems HENT: Positive for ear pain and dental problem. Blood pressure 119/80, pulse 68, temperature 97.9 ??F (36.6 ??C), temperature source Oral, resp. rate 18, height 5' 5 (1.651 m), weight 190 lb (86.183 kg), last menstrual period 02/19/2011, SpO2 100.00%. Physical Exam Nursing note and vitals reviewed. Constitutional: She appears well-developed and well-nourished. HENT: Head: Normocephalic and atraumatic. Right Ear: Hearing, tympanic membrane, external ear and ear canal normal. Left Ear: Hearing, tympanic membrane, external ear and ear canal normal. Nose: Nose normal. Mouth/Throat: Uvula is midline, oropharynx is clear and moist and mucous membranes are normal. Slight tenderness to the right TMJ with palpation and opening and closing of jaw. Right ear canal is patent with right TM being pearly with good cone of light and landmarks visualized. No tenderness over the right teeth or mandible. No abscesses of the teeth or inflammation of the gums noted. Procedures Radiology/EKG/Labs: ED Course: Appropriate laboratory and radiology studies reviewed Patient is evaluated and appears well on exam. She seems to be suffering from TMJ pain. She is encouraged to take an antiinflammatory and given ibuprofen 800 mg and stick to a soft diet for a few days. No signs of infection on exam. She is to follow up with primary care physician or ENT symptoms persist. ED Clinical Impression: Right TMJ pain Critical Care time Condition at Discharge/Transfer from Department: Stable Allyn Marie PA 03/13/[id number] Genaro Savage MD 03/13/112057 Cosigned by Genaro Savage MD at 03/13/2011 8:58 PM EST documented in this encounter Miscellaneous Notes * Miscellaneous - Unknown, Unknown - 03/15/2011 2:12 PM EST documented in this encounter Plan of Treatment Upcoming Encounters Date Type Department Care Team (Late st Contact Info) Description 04/24/2024 10:45 AM EST Clinical Support [facility] [address] [place] [address] documented as of this encounter Visit Diagnoses Diagnosis TMJ inflammation Other specified temporomandibular joint disorders documented in this encounter Care Teams Assembler Knife Relationship Specialty Start Date End Date Yuliet Norman MD PCP - General 11/22/10 09/12/14 documented as of this encounter
--- OUTSIDE RECORDS SUMMARY | 2024-03-14 18:23 | XMS_ITS | Encounter Summary ---
Author Organization [place] [address] Care Team Providers Care Sign Hanger Supervisor Name Role Phone Thea Rubio MD Primary Care Provider +1- [phone] Reason for Referral * MRI/CAT Scan (Routine) - Closed Specialty Diagnoses / Procedures Referred By Contac t Referred To Contact Radiology Diagnoses New daily persistent headache Procedures MRI BRAIN W WO CONTRAST Thea Rubio MD Phone: tel: fax: Referral ID Status Reason Start Date Expiration Date Visits Re quested Visits Authorized [id number] Closed 06/23/2015 06/22/2016 1 1 Reason for Visit * Reason Comments Hospital Follow Up Encounter Details Date Type Department Care Team (Late st Contact Info) Description 06/23/2015 10:00 AM EST Office Visit [facility] [address] [place] [address] Thea Rubio MD [address] [place] [id number] New daily persistent headache (Primary Dx); Neck pain; Abducens nerve disease, right Social History Tobacco Use Types Packs/Day Years [...] Reading Time Taken Comments Blood Pressure 116/78 06/23/2015 9:51 AM EST Pulse 72 06/23/2015 9:51 AM EST Temperature 36.9 ??C (98.5 ??F) 06/23/2015 9:51 AM ES T Respiratory Rate - - Oxygen Saturation - - Inhaled Oxygen Concentration - - Weight 86.1 kg (189 lb 12.8 oz) 06/23/2015 9:51 AM EST Height 166.4 cm (5' 5.5 ) 06/23/2015 9:51 AM EST Body Mass Index 31.1 06/23/2015 9:51 AM EST documented in this encounter Ordered Prescriptions Prescription Sig Dispense Quantity Refills Last Filled Start Date End Date traMADol (ULTRAM) 50 mg Oral TabletIndications :New daily persistent headache,Neck pain Take 1 Tab by mouth every 6 hours as needed for Pain. 20 Tab 0 06/23/2015 6 methylPREDNISolon e (MEDROL DOSPACK) 4 mg Oral Tablets, Dose PackIndications:N juan c pain See package instructions 21 Tab 0 06/23/2015 6 documented in this encounter Progress Notes * Thea Rubio MD - 06/23/2015 9:59 AM EST Subjective: Patient ID: Gardenia Childress is a 35 y.o. female. Chief Complaint Patient presents with ??? Hospital Follow Up HPI: Patients past medical, family and social histories were reviewed and updated. There were no changesexcept as noted. See ER visit 06-19-15. Bronchitis is gone, except for minimal residual cough. Still neck pain, hurtsup back of neck and both sides under occiput. Onset of sx about 4 wks ago. No sx to arms. If pt looks down and to the L, she gets dizzy as if she will pass out. No vertigo, even when supine. Can hearpulse in head for 5 days. Dad has had 2 cerebral aneurysms from something hereditary called Moyamoya ?? No injury to neck. Has tried Flexeril and valium from ER, massage, hot water, icy hot. Whole head hurts since sx began, constant, for at least 2 wks. Hx of weak mm in Rt eye since , ? Which one. Outpatient Prescriptions Marked as Taking for the 06/23/15 encounter (Office Visit) with Thea Rubio MD Medication Sig Dispense Refill ??? diazepam (VALIUM) 5 mg Oral Tablet Take 1 Tab by mouth every 12 hours as needed. 10 Tab 0 ??? dicyclomine (BENTYL) 10 mg Oral [...] flares. 270 Tab 1 Review of Systems Musculoskeletal: Positive for neck pain. All other systems reviewed and are negative. Objective: Filed Vitals: 06/23/15 0951 BP: 116/78 Pulse: 72 Temp: 98.5 ??F (36.9 ??C) TempSrc: Oral Height: 5' 5.5 (1.664 m) Weight: 189 lb 12.8 oz (86.093 kg) Body mass index is 31.09 kg/(m^2). Physical Exam Constitutional: She is oriented to person, place, and time. She appears well- developed and well-nourished. No distress. HENT: Right Ear: Tympanic membrane and ear canal normal. Left Ear: Tympanic membrane and ear canal normal. Mouth/Throat: Oropharynx is clear and moist. No posterior oropharyngeal edema or posterior oropharyngeal erythema. Eyes: EOM are normal. Pupils are equal, round, and reactive to light. Neck: Normal range of motion. Neck supple. No tracheal deviation present. No thyromegaly present. Cardiovascular: Normal rate, regular rhythm and normal heart sounds. Exam reveals no gallop and no friction rub. No murmur heard. Pulmonary/Chest: Effort normal and breath sounds normal. Lymphadenopathy: She has no cervical adenopathy. Neurological: She is alert and oriented to person, place, and time. She has normal strength. A cranial nerve deficit is present. Coordination normal. CN II-XII shows no lateral Rt eye movement at all. O/w CN intact grossly. No nystagmus. Mm strengthall ext. = and 5/5. Finger to nose NL. Rapid alt. Motions with hands NL. Gait NL. Heel to toe NL. Romberg neg. Nursing note and vitals reviewed. Mild to mod tender post neck mm in general. CT of neck done May 2015. Pt can tap out correct pulse as I am feeling her pulse. Lab Results Component Value Date WBC 8.0 03/12/2014 HGB 13.6 03/12/2014 HCT 40.9 03/12/2014 PLT 307 03/12/2014 ALT 9 03/12/2014 AST 18 03/12/2014 NA 139 03/12/2014 K 4.1 03/12/2014 CL 103 03/12/2014 CREATININE 0.73 03/12/2014 BUN 8 03/12/2014 CO2 24 03/12/2014 GLU 83 03/12/2014 TSHREFLEX 1.250 03/12/2014 Assessment and Plan: Gardenia was seen today for hospital follow up. Diagnoses and all orders for this visit: New daily persistent headache-NL BP but pt is aware of pulse rate, father has what sounds to be Moyamoya disease. (? 10% of cases are hereditary) Orders: - MRI brain with and without contrast; Future - traMADol (ULTRAM) 50 mg Oral Tablet; Take 1 Tab by mouth every 6 hours as needed for Pain. Neck pain-sx persistent. ? Needs MRI C spine. 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 Will get MRI of the brain. Return if symptoms worsen or fail to improve. documented in this encounter Miscellaneous Notes * Patient Instructions - Thea Rubio MD - 06/23/2015 10:19 AM EST Headaches, Frequently Asked Questions MIGRAINE HEADACHES Q: What is migraine? What causes it? How can I treat it? A: Generally, migraine headaches begin as a dull ache. Then they develop into a constant, throbbing, and pulsating pain. You may experience pain at the temples. You may experience pain at the front or back of one or both sides of the head. The pain is usually accompanied by a combination of: ?? Nausea. ?? Vomiting. ?? Sensitivity to light and noise. Some people (about 15%) experience an aura (see below) before an attack. The cause of migraine is believed to be chemical reactions in the brain. Treatment for migraine may include yxpp-drd-horilgx or prescription medications. It may also include self-help techniques. These include relaxation training and biofeedback. Q: What is an aura? A: About 15% of people with migraine get an aura . This is a sign of neurological symptoms that occur before a migraine headache. You may see wavy or jagged lines, dots, or flashing lights. You might experience tunnel vision or blind spots in one or both eyes. The aura can include visual or auditory hallucinations (something imagined). It may include disruptions in smell (such as strange odors),taste or touch. Other symptoms include: ?? Numbness. ?? A pins and needles sensation. ?? Difficulty in recalling or speaking the correct word. These neurological events may last as long as 60 minutes. These symptoms will fade as the headache begins. Q: What is a trigger? A: Certain physical or environmental factors can lead to or trigger a migraine. These include: ?? Foods. ?? Hormonal changes. ?? Weather. ?? Stress. It is important to remember that triggers are different for everyone. To help prevent migraine attacks, you need to figure out which triggers affect you. Keep a headache diary. This is a good way to track triggers. The diary will help you talk to your healthcare professional about your condition. Q: Does weather affect migraines? A: Bright sunshine, hot, humid conditions, and drastic changes in barometric pressure may lead to, or trigger, a migraine attack in some people. But studies have shown that weather does not act as a trigger for everyone with migraines. Q: What is the link between migraine and hormones? A: Hormones start and regulate many of your body's functions. Hormones keep your body in balance within a constantly changing environment. The levels of hormones in your body are unbalanced at times.Examples are during menstruation, , or menopause. That can lead to a migraine attack. In fact, about three quarters of all women with migraine report that their attacks are related to the menstrual cycle. Q: Is there an increased risk of stroke for migraine sufferers? A: The likelihood of a migraine attack causing a stroke is very remote. That is not to say that migraine sufferers cannot have a stroke associated with their migraines. In persons under age 40, the most common associated factor for stroke is migraine headache. But over the course of a person's normal life span, the occurrence of migraine headache may actually be associated with a reduced risk of dying from cerebrovascular disease due to stroke. Q: What are acute medications for migraine? A: Acute medications are used to treat the pain of the headache after it has started. Examples oshf-aue-diyvzym medications, NSAIDs, ergots, and triptans. Q: What are the triptans? A: Triptans are the newest class of abortive medications. They are specifically targeted to treat migraine. Triptans are vasoconstrictors. They moderate some chemical reactions in the brain. The triptans work on receptors in your brain. Triptans help to restore the balance of a neurotransmitter called serotonin. Fluctuations in levels of serotonin are thought to be a main cause of migraine. Q: Are qgub-vjf-rvbuntj medications for migraine effective? A: Srob-mhd-kxmjusd, or OTC, medications may be effective in relieving mild to moderate pain and associated symptoms of migraine. But you should see your caregiver before beginning any treatment regimen for migraine. Q: What are preventive medications for migraine? A: Preventive medications for migraine are sometimes referred to as prophylactic treatments. Theyare used to reduce the frequency, severity, and length of migraine attacks. Examples of preventive medications include antiepileptic medications, antidepressants, beta-blockers, calcium channel blockers, and NSAIDs (nonsteroidal anti-inflammatory drugs). Q: Why are anticonvulsants used to treat migraine? A: During the past few years, there has been an increased interest in antiepileptic drugs for the prevention of migraine. They are sometimes referred to as anticonvulsants . Both epilepsy and migraine may be caused by similar reactions in the brain. Q: Why are antidepressants used to treat migraine? A: Antidepressants are typically used to treat people with depression. They may reduce migraine frequency by regulating chemical levels, such as serotonin, in the brain. Q: What alternative therapies are used to treat migraine? A: The term alternative therapies is often used to describe treatments considered outside the scope of conventional Western medicine. Examples of alternative therapy include acupuncture, acupressure, and yoga. Another common alternative treatment is herbal therapy. Some herbs are believed to relieve headache pain. Always discuss alternative therapies with your caregiver before proceeding. Some herbal products contain arsenic and other toxins. TENSION HEADACHES Q: What is a tension-type headache? What causes it? How can I treat it? A: Tension-type headaches occur randomly. They are often the result of temporary stress, anxiety, fatigue, or anger. Symptoms include soreness in your temples, a tightening band-like sensation aroundyour head (a vice-like ache). Symptoms can also include a pulling feeling, pressure sensations, and chris head and neck muscles. The headache begins in your forehead, temples, or the back of your head and neck. Treatment for tension-type headache may include xmdv-xhg-yegxebr or prescriptionmedications. Treatment may also include self- help techniques such as relaxation training and biofeedback. CLUSTER HEADACHES Q: What is a cluster headache? What causes it? How can I treat it? A: Cluster headache gets its name because the attacks come in groups. The pain arrives with little,if any, warning. It is usually on one side of the head. A tearing or bloodshot eye and a runny noseon the same side of the headache may also accompany the pain. Cluster headaches are believed to be caused by chemical reactions in the brain. They have been described as the most severe and intense of any headache type. Treatment for cluster headache includes prescription medication and oxygen. SINUS HEADACHES Q: What is a sinus headache? What causes it? How can I treat it? A: When a cavity in the bones of the face and skull (a sinus) becomes inflamed, the inflammation will cause localized pain. This condition is usually the result of an allergic reaction, a tumor, or an infection. If your headache is caused by a sinus blockage, such as an infection, you will probablyhave a fever. An x-ray will confirm a sinus blockage. Your caregiver's treatment might include antib iotics for the infection, as well as antihistamines or decongestants. REBOUND HEADACHES Q: What is a rebound headache? What causes it? How can I treat it? A: A pattern of taking acute headache medications too often can lead to a condition known as rebound headache. A pattern of taking too much headache medication includes taking it more than 2 days per week or in excessive amounts. That means more than the label or a caregiver advises. With reboundheadaches, your medications not only stop relieving pain, they actually begin to cause headaches. Doctors treat rebound headache by tapering the medication that is being overused. Sometimes your caregiver will gradually substitute a different type of treatment or medication. Stopping may be a challenge. Regularly overusing a medication increases the potential for serious side effects. Consult a caregiver if you regularly use headache medications more than 2 days per week or more than the label advises. ADDITIONAL QUESTIONS AND ANSWERS Q: What is biofeedback? A: Biofeedback is a self-help treatment. Biofeedback uses special equipment to monitor your body's involuntary physical responses. Biofeedback monitors: ?? Breathing. ?? Pulse. ?? Heart rate. ?? Temperature. ?? Muscle tension. ?? Brain activity. Biofeedback helps you refine and perfect your relaxation exercises. You learn to control the physical responses that are related to stress. Once the technique has been mastered, you do not need the equipment any more. Q: Are headaches hereditary? A: Four out of five (80%) of people that suffer report a family history of migraine. Scientists arenot sure if this is genetic or a family predisposition. Despite the uncertainty, a child has a 50% chance of having migraine if one parent suffers. The child has a 75% chance if both parents suffer. Q: Can children get headaches? A: By the time they reach high school, most young people have experienced some type of headache. Many safe and effective approaches or medications can prevent a headache from occurring or stop it after it has begun. Q: What type of doctor should I see to diagnose and treat my headache? A: Start with your primary caregiver. Discuss his or her experience and approach to headaches. Discuss methods of classification, diagnosis, and treatment. Your caregiver may decide to recommend you to a headache specialist, depending upon your symptoms or other physical conditions. Having diabetes, allergies, etc., may require a more comprehensive and inclusive approach to your headache. The [employer] will provide, upon request, a list of NHF physician members in your state. Document Released: 06/27/2004 Document Revised: 06/29/2012 Document Reviewed: 12/05/2008 ExitCare?? Patient Information ??2015 [employer]. This information is not intended to replace advice given to you by your health care provider. Make sure you discuss any questions you have with your health care provider. documented in this encounter Plan of Treatment Upcoming Encounters Date Type Department Care Team (Late st Contact Info) Description 04/24/2024 10:45 AM EST Clinical Support [facility] [address] [place] [address] documented as of this encounter Results * MRI BRAIN W WO CONTRAST (06/29/2015 4:25 PM EST) Anatomical Region Laterality Modality Head Magnetic Resonan ce 06/29/2015 4:25 PM EST Impressions 06/29/2015 5:36 PM EST IMPRESSION: ??Normal exam. Narrative 06/29/2015 5:36 PM EST MRI BRAIN WITHOUT AND WITH CONTRAST, 06/29/2015 4:25 PM HISTORY: ??G44.52-New daily persistent headache (ndph)-ICD-10-CM IMAGING PARAMETERS: ??The brain was imaged utilizing sagittal T2, coronal T2 and postcontrast T1, and axial T2, FLAIR, T2-weighted gradient echo, diffusion, and pre- and post-contrast T1 weighted sequences. 15 mL Multihance. FINDINGS: Comparison with head CT from 06/13/2012. No comparison brain MRI available. Mild patient motion artifact not felt to significantly compromise exam. The midline structures are normally formed. No Chiari malformation. Ventricular size and configuration is normal. There is no mass, mass effect, midline shift, extra-axial fluid collection, abnormal parenchymal signal, restricted diffusion or evidence of hemorrhage. Following contrast administration, there is no pathologic enhancement. Expected flow voids are noted within the major intracranial vessels. No significant sinus or mastoid opacification. ?? Procedure Note Law Schulte MD - 06/29/2015 MRI BRAIN WITHOUT AND WITH CONTRAST, 06/29/2015 4:25 PM HISTORY: G44.52-New daily persistent headache (ndph)-ICD-10-CM IMAGING PARAMETERS: The brain was imaged utilizing sagittal T2, coronalT2 and postcontrast T1, and axial T2, FLAIR, T2-weighted gradient echo,diffusion, and pre- and post-contrast T1 weighted sequences. 15 mL Multihance. FINDINGS: Comparison with head CT from 06/13/2012. No comparison brainMRI available. Mild patient motion artifact not felt to significantlycompromise exam. The midline structures are normally formed. No Chiarimalformation. Ventricular size and configuration is normal. There is no mass, masseffect, midline shift, extra-axial fluid collection, abnormal parenchymalsignal, restricted diffusion or evidence of hemorrhage. Following contrast administration, there is no pathologic enhancement. Expected flow voidsare noted within the major intracranial vessels. No significant sinus ormastoid opacification. IMPRESSION: Normal exam. us Thea Rubio MD IMG MRI ORDERABLES Final R esult documented in this encounter Visit Diagnoses Diagnosis New daily persistent headache- Primary Neck pain Cervicalgia Abducens nerve disease, right New daily persistent headache documented in this encounter Discontinued Medications Medication Sig Discontinue Reason Start Date End Da te codeine-guaiFENesin (ROBITUSSIN AC) 10-100 mg/5 mL Oral LiquidIndications:Acute bronchitis, unspecified organism Take 5-10 mL by mouth every 6 hours as needed for Cough. DELETE-Therapy completed 06/14/2015 06/23/2015 cyclobenzaprine (FLEXERIL) 10 mg Oral Tablet Take 1 Tab by mouth 3 times daily as needed for Muscle spasms for up to 10 doses. DELETE-Therapy completed 06/11/2015 06/23/2015 documented as of this encounter Care Teams Sign Hanger Supervisor Relationship Specialty Start Date End Date Thea Rubio MD PCP - General Family Medicine 09/13/14 07/16/22 documented as of this encounter
--- OUTSIDE RECORDS SUMMARY | 2024-03-14 18:23 | XMS_ITS | Encounter Summary ---
Author Organization [place] [address] Care Team Providers Care Closing Coordinator Name Role Phone Thea Rubio MD Primary Care Provider +1- [phone] Encounter Details Date Type Department Care Team (Latest Contact Info) Description 06/23/2015 10:44 AM EST - 06/23/2015 11:59 PM EST Hospital Encounter [facility] [address] [place], [place] [id number] Neck pain Discharge Disposition: Home or Self Care [...] this encounter Medications at Time of Discharge methylPREDNISolo ne (MEDROL DOSPACK) 4 mg Oral Tablets, Dose PackIndications: Neck pain See package instructions 21 Tab 0 06/23/2015 6 documented as of this encounter Discharge Disposition Disposition Code Departure Means Destination Home or Self Care documented in this encounter Plan of Treatment Upcoming Encounters Date Type Department Care Team (Late st Contact Info) Description 04/24/2024 10:45 AM EST Clinical Support [facility] [address] [place] [address] documented as of this encounter Procedures Procedure Name Priority Date/Time Associated Diagnosis Comments XR CERVICAL SPINE AP LATERAL ODONTOID AND OBLIQUE Routine 06/23/2015 11:05 AM EST Neck pain documented in this encounter Results * XR CERVICAL SPINE AP LATERAL ODONTOID AND OBLIQUE (06/23/2015 11:05 AM EST) Anatomical Region Laterality Modality C-spine Radiographic Kristi ging 06/23/2015 11:0 5 AM EST Impressions 06/23/2015 2:20 PM EST IMPRESSION: Normal cervical spine. Narrative 06/23/2015 2:20 PM EST XR CERVICAL SPINE AP LATERAL ODONTOID AND OBLIQUE ??06/23/2015 11:05 AM HISTORY: ??M54.7-Okxegpjwpfm-GCC-10-CM Alignment is anatomic. Disc interspaces and vertebral body heights are maintained. No fracture-dislocation or significant degenerative changes noted. Procedure Note Kris Pendleton MD - 06/23/2015 XR CERVICAL SPINE AP LATERAL ODONTOID AND OBLIQUE 06/23/2015 11:05 AM HISTORY: M54.4-Qukvjivyxfw-ELL-10-CM Alignment is anatomic. Disc interspaces and vertebral body heights are maintained. No fracture-dislocation or significant degenerative changes noted. IMPRESSION: Normal cervical spine. us Thea [facility] ORD ERABLES Final Result documented in this encounter Visit Diagnoses Diagnosis Neck pain Cervicalgia documented in this encounter Care Teams Closing Coordinator Relationship Specialty Start Date End Date Thea Rubio MD PCP - General Family Medicine 09/13/14 07/16/22 documented as of this encounter
--- OUTSIDE RECORDS SUMMARY | 2024-03-14 18:23 | XMS_ITS | Encounter Summary ---
Author Organization [facility] [place] [address] Care Team Providers Care Pari Mutuel Ticket Seller Name Role Phone Thea Rubio MD Primary Care Provider [phone] Reason for Referral * MRI/CAT Scan (Routine) - Closed Specialty Diagnoses / Procedures Referred By Nancyac t Referred To Contact Radiology Diagnoses New daily persistent headache Procedures MRI BRAIN W WO CONTRAST Thea Rubio MD Phone: tel: fax: Referral ID Status Reason Start Date Expiration Date Visits Re quested Visits Authorized [id number] Closed 06/23/2015 06/22/2016 1 1 Reason for Visit * MRI/CAT Scan (Routine) - Closed Specialty Diagnoses / Procedures Referred By Amalia tuttle Referred To Contact Radiology Diagnoses New daily persistent headache Procedures MRI BRAIN W WO CONTRAST Thea Rubio MD Phone: tel: fax: Referral ID Status Reason Start Date Expiration Date Visits Re quested Visits Authorized [id number] Closed 06/23/2015 06/22/2016 1 1 Encounter Details Date Type Department Care Team (Latest Contact Info) Description 06/29/2015 3:18 PM EST - 06/29/2015 11:59 PM EST Hospital Encounter [facility] MRI [address] [place] [address] Thea Rubio MD [address] [place] [address] New daily persistent headache Discharge Disposition: Home or Self Care Social [...] EST Clinical Support [facility] [address] [place] [address] documented as of this encounter Procedures Procedure Name Priority Date/Time Associated Diagnosis Comments MRI BRAIN W WO CONTRAST Routine 06/29/2015 4:25 PM EST New daily persistent headache documented in this encounter Results * MRI BRAIN W [...] encounter Visit Diagnoses Diagnosis New daily persistent headache documented in this encounter Administered Medications Inactive Administered Medications - up to 1 most recent administrations Medication Order MAR Action Action Date Dose Rate Site Gadobenate Dimeglumine (MULTIHANCE) Soln 15 mL 15 mL, Intravenous, ONCE PRN, 1 dose, Starting on Setphanie 06/29/15 at 1553, Until Stephanie 06/29/15 at 1623, Other, Radiology Procedure, VESICANT , MRI (Contrasts) Given 06/29/2015 4:23 PM EST 15 mL Right Arm documented in this encounter Care Teams Pari Mutuel Ticket Seller Relationship Specialty Start Date End Date Thea Rubio MD PCP - General Family Medicine 09/13/14 07/16/22 documented as of this encounter
--- OUTSIDE RECORDS SUMMARY | 2024-03-14 18:23 | XMS_ITS | Encounter Summary ---
Author Organization [place] [address] Care Team Providers Care Roof Service Technician Name Role Phone Yuliet Norman MD Primary Care Provider [phone] Reason for Visit * Reason Comments Migraine Pt states that for t he past couple of hours she has had a severe migraine. Pt states that she has hx of migraines. Pt is out of topamax, did take imitrex. Encounter Details Date Type Department Care Team (Late st Contact Info) Description 10/18/2013 12:20 AM EDT - 10/18/2013 1:42 AM EDT Emergency [facility] [address] [place] [address] Adithya Chen MD [address] [place] [id number] Migraine (Primary Dx); Vomiting Discharge Disposition: Home or Self Care Social [...] Reading Time Taken Comments Blood Pressure 120/80 10/18/2013 1:42 AM EDT Pulse 90 10/18/2013 1:42 AM EDT Temperature 36.6 ??C (97.8 ??F) 10/17/2013 10:20 PM E DT Respiratory Rate 16 10/18/2013 1:42 AM EDT Oxygen Saturation 100% 10/17/2013 10:20 PM EDT Inhaled Oxygen Concentration - - Weight 77.1 kg (170 lb) 10/17/2013 10:20 PM EDT Height 165.1 cm (5' 5 ) 10/17/2013 10:20 PM EDT Body Mass Index 28.29 10/17/2013 10:20 PM EDT documented in this encounter Discharge Instructions * Discharge Instructions* Adithya Chen MD - 10/18/2013 1:32 AM EDT Migraine Headache A migraine headache is very bad, throbbing pain on one or both sides of your head. Talk to your doctor about what things may bring on (trigger) your migraine headaches. HOME CARE ?? Only take medicines as told by your doctor. ?? Lie down in a dark, quiet room when you have a migraine. ?? Keep a journal to find out if certain things bring on migraine headaches. For example, write down: ?? What you eat and drink. ?? How much sleep you get. ?? Any change to your diet or medicines. ?? Lessen how much alcohol you drink. ?? Quit smoking if you smoke. ?? Get enough sleep. ?? Lessen any stress in your life. ?? Keep lights dim if bright lights bother you or make your migraines worse. GET HELP RIGHT AWAY IF: ?? Your migraine becomes really bad. ?? You have a fever. ?? You have a stiff neck. ?? You have trouble seeing. ?? Your muscles are weak, or you lose muscle control. ?? You lose your balance or have trouble walking. ?? You feel like you will pass out (faint), or you pass out. ?? You have really bad symptoms that are different than your first symptoms. MAKE SURE YOU: ?? Understand these instructions. ?? Will watch your condition. ?? Will get help right away if you are not doing well or get worse. Document Released: 01/14/2009 Document Revised: 06/29/2012 Document Reviewed: 03/27/2012 ExitCare?? Patient Information ??2013 [employer]. documented in this encounter Discharge Disposition Disposition Code Departure Means Destination Home or Self [facility] documented in this encounter ED Notes * Brittany Martinez RN - 10/18/2013 1:41 AM EDT IV #20 removed from left hand. Catheter intact, dressing applied. No complications. * Adithya Chen MD - 10/18/2013 12:32 AM EDT Chief Complaint Patient presents with ??? Migraine Pt states that for the past couple of hours she has had a severe migraine. Pt states that she hashx of migraines. Pt is out of topamax, did take imitrex. HPI Comments: 33-year-old female presents to the ED with severe migraine. Patient states that patient has had severe headache for the past 2 hours and that she took her home rescue medication Imitrexbut could not keep it down. Patient has had bouts of emesis associated with this migraine. Patient rates her headache is 8/10 pain is described as an aching pressure-like sensation in the right side of her head. Patient states that this is not her worst headache. Patient denies any fevers chills sinus congestion. The history is provided by the patient. Allergies Allergen Reactions ??? Aspirin ??? Morphine Nausea And Vomiting Home Medications: Prior to Admission medications Medication Sig Start Date End Date Taking? Authorizing Provider topiramate (TOPAMAX) 25 mg tablet Take by mouth 2 times daily. Yes Provider, Historical SUMAtriptan (IMITREX) 25 mg tablet Take by mouth as needed for Migraine. Yes Provider, Historical Past Medical History: Past Medical History Diagnosis Date ??? 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 Biliary atresia ??? Migraines Social History: reports that she has quit smoking. She has never used smokeless tobacco. She reports that she does not drink alcohol or use illicit drugs. Family History: No family history on file. Surgical History: Past Surgical History Procedure Laterality Date ??? Abdomen surgery for bile duct ??? Appendectomy ??? Cholecystectomy Review of Systems Constitutional: Negative for fever and chills. Eyes: Negative. Respiratory: Negative for cough and shortness of breath. Cardiovascular: Negative for chest pain, palpitations and leg swelling. Gastrointestinal: Positive for vomiting. Negative for nausea, abdominal pain and diarrhea. Genitourinary: Negative for dysuria and frequency. Musculoskeletal: Negative. Skin: Negative for rash. Neurological: Positive for headaches. Psychiatric/Behavioral: Negative. All other systems reviewed and are negative. Blood pressure 114/70, pulse 68, temperature 97.8 ??F (36.6 ??C), temperature source Oral, resp. rate 16, height 5' 5 (1.651 m), weight 170 lb (77.111 kg), last menstrual period 10/08/2013, SpO2 100.00%. Physical Exam Constitutional: She is oriented to person, place, and time. She appears well- developed. She appearsdistressed. HENT: Head: Normocephalic. Eyes: Conjunctivae and EOM are normal. Pupils are equal, round, and reactive to light. Neck: Normal range of motion. Neck supple. No JVD present. No tracheal deviation present. Cardiovascular: Normal rate, regular rhythm, normal heart sounds and intact distal pulses. Pulmonary/Chest: Effort normal and breath sounds normal. No respiratory distress. Abdominal: Soft. She exhibits no distension and no mass. There is no tenderness. There is no rebound and no guarding. Musculoskeletal: Normal range of motion. She exhibits no edema and no tenderness. Neurological: She is alert and oriented to person, place, and time. No cranial nerve deficit. Coordination normal. Skin: Skin is warm and dry. She is not diaphoretic. No erythema. Psychiatric: She has a normal mood and affect. Procedures Radiology/EKG/Labs: No results found for this visit on 10/18/13. ED Course: Appropriate laboratory and radiology studies reviewed Patient is admitted to the ED and examined. Patient appears uncomfortable and photophobic. Patient is administered IV Compazine and fluids and Benadryl with symptomatic improvement. ED Clinical Impression: Acute migraine. Patient will be discharged home. Critical Care time Condition at Discharge/Transfer from Department: Stable This chart was completed using voice recognition technology and may contain unintended errors Adithya Chen MD 10/18/13 0358 documented in this encounter Plan of Treatment Upcoming Encounters Date Type Department Care Team (Late st Contact Info) Description 04/24/2024 10:45 AM EST Clinical Support [facility] [address] [place] [address] documented as of this encounter Visit Diagnoses Diagnosis Migraine- Primary Migraine, unspecified, without mention of intractable migraine without mention of status migrainosus Vomiting Vomiting alone documented in this encounter Administered Medications Inactive Administered Medications - up to 1 most recent administrations Medication Order MAR Action Action Date Dose Rate Site 0.9 % NaCl infusion Intravenous, at 999 mL/hr, ONCE, 1 dose, On Fri10/18/13 at 0045 New Bag 10/18/2013 12:48 AM EDT 999 mL/hr diphenhydrAMINE (BENADRYL) injection 25 mg 25 mg, Intravenous, ONCE, 1 dose, On Fri10/18/13 at 0045 Given 10/18/2013 12:48 AM EDT 25 mg prochlorperazine Edisylate (COMPAZINE) injection 10 mg 10 mg, Intravenous, ONCE, 1 dose, On Fri10/18/13 at 0045 Given 10/18/2013 12:48 AM EDT 10 mg documented in this encounter Discontinued Medications Medication Sig Discontinue Reason Start Date End Da te diclofenac (VOLTAREN) 75 mg EC tablet Take 75 mg by mouth 2 times daily as needed. DELETE- Entered in Error 10/17/2013 documented as of this encounter Historical Medications * This list may reflect changes made after this encounter. SUMAtriptan (IMITREX) 25 mg tablet Take by mouth as needed for Migraine. 01/08/2016 topiramate (TOPAMAX) 25 mg tablet Take by mouth 2 times daily. 09/13/2014 added in this encounter Active and Recently Administered Medications Times are shown in EDT. Scheduled Medication Order 10/16/2013 10/17/2013 10/18/2013 0.9 % NaCl infusion (COMPLETED) Intravenous, at 999 mL/hr, ONCE, 1 dose, On Fri10/18/13 at 0045 0048 (New Bag - Prov ider: Shannan Correa RN)0138 (Stopped - Provider: Brittany Martinez RN) diphenhydrAMINE (BENADRYL) injection 25 mg (COMPLETED) 25 mg, Intravenous, ONCE, 1 dose, On Fri10/18/13 at 0045 0048 (Given - Provid er: Shannan Correa RN) prochlorperazine Edisylate (COMPAZINE) injection 10 mg (COMPLETED) 10 mg, Intravenous, ONCE, 1 dose, On Fri10/18/13 at 0045 0048 (Given - Provid er: Shannan Correa RN) documented in this encounter Care Teams Roof Service Technician Relationship Specialty Start Date End Date Yuliet Norman MD PCP - General 11/22/10 09/12/14 documented as of this encounter
--- OUTSIDE RECORDS SUMMARY | 2024-03-14 18:23 | XMS_ITS | Encounter Summary ---
Author Organization [place] [address] Care Team Providers Care Straddle Truck Driver Name Role Phone Yuliet Norman MD Primary Care Provider [phone] Reason for Visit * Reason Comments Nasal Congestion Runny nose and conge stion and feels like body aches Encounter Details Date Type Department Care Team (Late Contact Info) Description 04/24/2012 4:59 PM EST - 04/24/2012 5:47 PM EST Emergency [facility] [place] [address] Chela Last MD [address] [place] [address] [place] [address] Nasal congestion (Primary Dx); Acute URI Discharge Disposition: Home or Self Care Social [...] Sign Reading Time Taken Comments Blood Pressure 103/73 04/24/2012 4:38 PM EST Pulse 94 04/24/2012 4:38 PM EST Temperature 36.8 ??C (98.2 ??F) 04/24/2012 4:38 PM ES T Respiratory Rate 20 04/24/2012 4:38 PM EST Oxygen Saturation 97% 04/24/2012 4:38 PM EST Inhaled Oxygen Concentration - - Weight 80.3 kg (177 lb) 04/24/2012 4:38 PM EST Height 165.1 cm (5' 5 ) 04/24/2012 4:38 PM EST Body Mass Index 29.45 04/24/2012 4:38 PM EST documented in this encounter Discharge Instructions * Attachments The following attachments cannot be sent through Care Everywhere. * COLD, COMMON, ADULT ([place]) * UPPER RESPIRATORY INFECTION (URI), ADULT, [id number] ([place]) * VIRAL INFECTIONS, [id number] (MON[place]ERR[place]) documented in this encounter Medications at Time of Discharge ibuprofen (ADVIL;MOTRIN) 800 mg Take 1 Tab by mouth every 8 hours as needed for 21 doses. 21 Tab 0 03/13/2011 10/09/2012 documented as of this encounter Ordered Prescriptions Prescription Sig Dispense Quantity Refills Last Filled Start Date End Date ibuprofen (ADVIL;MOTRIN) 400 mg tablet Take 1 Tab by mouth every 8 hours as needed for Pain for 21 doses. 21 Tab 0 04/24/2012 06/13/2012 documented in this encounter Discharge Disposition Disposition Code Departure Means Destination Home or Self Intermediate documented in this encounter ED Notes * Kaitlynn Tsang RN - 04/24/2012 5:46 PM EST Discharged per ambulatory. Condition good. Instructions given. patient verbalizes understanding. Scripts given yes. Verbalizes understanding of not to drive n/a. Pain = 4. NAD. * Chela Last MD - 04/24/2012 5:39 PM EST CHIEF COMPLAINT Chief Complaint Patient presents with ??? Nasal Congestion Runny nose and congestion and feels like body aches HPI Gardenia Childress is a 32 y.o. female who presents Complaining of runny nose and nasal congestion as well as generalized body aches for the last 2-3 days. Patient complains of a nonproductive cough for the last 2 days, and no shortness of breath, no known fever or chills, no sore throat, no difficulty swallowing, no headache, no abdominal pain. She states her bskoze-mo-cka had similar symptoms last week. The patient has a past medical history biliary atresia. She is a former smoker, denies alcohol or drug use. REVIEW OF SYSTEMS See HPI for further details. Review of systems otherwise negative. PAST MEDICAL HISTORY Past Medical History Diagnosis Date ??? 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 Biliary atresia FAMILY HISTORY No family history on file. SOCIAL HISTORY History Social History ??? Marital Status: Spouse Name: N/A Number of Children: N/A ??? Years of Education: N/A Social History Main Topics ??? Smoking status: Former Smoker ??? Smokeless tobacco: Never Used ??? Alcohol Use: No ??? Drug Use: No ??? Sexually Active: Other Topics Concern ??? None Social History Narrative ??? None SURGICAL HISTORY Past Surgical History Procedure Date ??? Abdomen surgery for bile duct ??? Appendectomy ??? Cholecystectomy CURRENT MEDICATIONS Current Outpatient Rx Name Route Sig Dispense Refill ??? IBUPROFEN 800 MG TABLET Oral Take 1 Tab by mouth every 8 hours as needed for 21 doses. 21 Tab 0 ALLERGIES Allergies Allergen Reactions ??? Aspirin PHYSICAL EXAM VITAL SIGNS: ED Triage Vitals Temp 04/24/12 1638 98.2 ??F (36.8 ??C) Heart Rate 04/24/12 1638 94 Resp 04/24/12 1638 20 BP 04/24/12 1638 103/73 mmHg SpO2 04/24/12 1638 97 % Height 04/24/12 1638 5' 5 (1.651 m) Weight - Scale 04/24/12 1638 177 lb (80.287 kg) Constitutional: Alert and oriented x3, nontoxic-appearing in no respiratory distress HENT: Normocephalic, Atraumatic,Oropharynx moist, TMs clear bilaterally, posterior oropharynx with no erythema, no tonsillar hypertrophy or exudate Eyes: PERRLA, EOMI, Conjunctiva normal, No discharge. Neck: Normal range of motion, No tenderness, Supple, No JVD, no carotid bruit Cardiovascular: S1 and S2 normal, no murmurs, clicks, gallops or rubs. Regular rate and rhythm. No edema or JVD. Thorax & Lungs: Chest is clear to auscultation, no wheezing, rales or rhonchi. Normal symmetricbreath sounds in all lung king. Abdomen: Bowel sounds normal, Soft, No tenderness, No masses, No pulsatile masses. Skin: Warm, Dry, No erythema, No rash. Extremities: Intact distal pulses, No tenderness, No cyanosis, No edema Neurologic: Alert & oriented x 3, No focal deficits noted. LABS/RADIOLOGY/PROCEDURES No results found for this visit on 04/24/12. COURSE & MEDICAL DECISION MAKING Pertinent Labs & Imaging studies reviewed. (See chart for details) Patient is well-appearing, nontoxic, afebrile distended 97% in room air and clear lungs on exam. She was given viral URI instructions. FINAL IMPRESSION 1. Nasal congestion 2. Acute URI Condition at discharge: Stable Chela Last MD 04/24/12 1742 * Kaitlynn Tsang RN - 04/24/2012 5:18 PM EST Pt c/o nonproductive cough x2 days and body aches today. CPTA Dayquil and Nyquil with no relief. documented in this encounter Miscellaneous Notes * Miscellaneous - Unknown, Unknown - 04/24/2012 9:02 PM EST * Miscellaneous - Unknown, Unknown - 04/24/2012 4:44 PM EST * Miscellaneous - Unknown, Unknown - 04/24/2012 12:00 AM EST documented in this encounter Plan of Treatment Upcoming Encounters Date Type Department Care Team (Late st Contact Info) Description 04/24/2024 10:45 AM EST Clinical Support [facility] [address] [place] [address] documented as of this encounter Visit Diagnoses Diagnosis Nasal congestion- Primary Other diseases of nasal cavity and sinuses Acute URI Acute upper respiratory infections of unspecified site documented in this encounter Care Teams Straddle Truck Driver Relationship Specialty Start Date End Date Yuliet Norman MD PCP - General 11/22/10 09/12/14 documented as of this encounter
--- OUTSIDE RECORDS SUMMARY | 2024-03-14 18:23 | XMS_ITS | Encounter Summary ---
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 C/o head, neck pain and left elbow pain. No loc. Encounter Details Date Type Department Care Team (Late st Contact Info) Description 06/13/2012 1:58 PM EST - 06/13/2012 4:48 PM EST Emergency [facility] [place] [address] Matthias Delaney MD [address] [id number] Fall (Primary Dx); Closed head injury; Cervical strain; Back contusion; Right wrist sprain; Abnormal CT scan Discharge Disposition: Home or Self Care Social [...] Sign Reading Time Taken Comments Blood Pressure 131/71 06/13/2012 3:56 PM EST Pulse 88 06/13/2012 3:56 PM EST Temperature 36.8 ??C (98.2 ??F) 06/13/2012 12:[address] Respiratory Rate 18 06/13/2012 12:18 PM EST Oxygen Saturation 100% 06/13/2012 12:18 PM EST Inhaled Oxygen Concentration - - Weight 78.9 kg (174 lb) 06/13/2012 12:18 PM EST Height 165.1 cm (5' 5 ) 06/13/2012 12:18 PM EST Body Mass Index 28.96 06/13/2012 12:18 PM EST documented in this encounter Discharge Instructions * Discharge Instructions* Rosalie Rivera PA-C - 06/13/2012 4:41 PM EST Rest and plenty of fluids Gentle activity as tolerated Ice to painful areas 20 minutes 4 times daily for the first 2 days he may then switched to heat forcomfort Norflex as prescribed. This is a muscle relaxer and may make you tired Aleve [id number] as directed for pain followup as instructed for recheck an ultrasound of thyroid Return to ER 4 fever, bowel or bladder incontinence, saddle paresthesias, any numbness, tingling orweakness of the Extremities, any worsening of your symptoms, blood in urine or other concerns. * Attachments The following attachments cannot be sent through Care Everywhere. * BRUISE (CONTUSION, HEMATOMA) ([place]) * HEAD INJURIES, ADULT ([place]) * BACK PAIN ([place] AND [place]) documented in this encounter Medications at Time of Discharge HYDROcodone-aceta minophen (VICODIN) 5-500 mg per tablet Take 1 Tab by mouth every 6 hours as needed for Pain. 10 Tab 0 06/13/2012 10/09/2012 ibuprofen (ADVIL;MOTRIN) 800 mg Take 1 Tab by mouth every 8 hours as needed for 21 doses. 21 Tab 0 03/13/2011 10/09/2012 orphenadrine (NORFLEX) 100 mg tablet Take 1 Tab by mouth 2 times daily for 5 days. 10 Tab 0 06/13/2012 06/18/2012 documented as of this encounter Ordered Prescriptions Prescription Sig Dispense Quantity Refills Last Filled Start Date End Date HYDROcodone-acetam inophen (VICODIN) 5-500 mg per tablet Take 1 Tab by mouth every 6 hours as needed for Pain. 10 Tab 0 06/13/2012 10/09/2012 orphenadrine (NORFLEX) 100 mg tablet Take 1 Tab by mouth 2 times daily for 5 days. 10 Tab 0 06/13/2012 06/18/2012 documented in this encounter Discharge Disposition Disposition Code Departure Means Destination Home or Self Long Term documented in this encounter ED Notes * Mya Sears RN - 06/13/2012 4:46 PM EST D/c inst to pt who verb understanding; amb on d/c cond fair; gait steady * Rosalie Rivera PA-C - 06/13/2012 2:57 PM EST Chief Complaint Patient presents with ??? Fall Pt fell off horse last night. C/o head, neck pain and left elbow pain. No loc. HPI Comments: Patient is a 32-year-old female who presents to the emergency department for evaluation of injuries sustained after a fall from a horse. Patient tells me between 6:30 and 7 AM last night she was riding a horse bareback. the horse was spooked by a cow, took off quickly and the patient fell off the side and landed on her back. She does not believe the horse stepped on her at all. She says she did hit the back of her head on the grass. She did not lose consciousness but does report aposterior headache which is dull in nature although improved in comparison to last night. No nauseaor vomiting. No changes in vision or speech. No numbness, tingling or weakness of the extremities. She says she is having pain radiating into the neck and into the superior trapezius musculature bilaterally. There is additional pain across the low back greater at a site of bruising along the left posterior lateral iliac crest region. She does report a bruise and some tenderness only at the site of bruising just above the left elbow and feels she may have exacerbated an old right wrist injury. She says she did fracture this wrist several years ago. No bowel or bladder incontinence. No saddle paresthesias. She denies any chest or abdominal pain. No hematuria. She did take some ibuprofen last night. She presents to the ER for evaluation. The history is provided by the patient. [...] file. Surgical History: Past Surgical History Procedure Date ??? Abdomen surgery for bile duct ??? Appendectomy ??? Cholecystectomy Review of Systems All other systems reviewed and are negative. Blood pressure 117/74, pulse 93, temperature 98.2 ??F (36.8 ??C), temperature source Oral, resp. rate 18, height 5' 5 (1.651 m), weight 174 lb (78.926 kg), SpO2 100.00%. Physical Exam Nursing note and vitals reviewed. Constitutional: She is oriented to person, place, and time. She appears well- developed and well-nourished. No distress. HENT: Head: Normocephalic and atraumatic. Right Ear: Hearing, tympanic membrane, external ear and ear canal normal. Left Ear: Hearing, external ear and ear canal normal. Nose: Nose normal. Mouth/Throat: Uvula is midline, oropharynx is clear and moist and mucous membranes are normal. No tenderness of the skull Left tympanic membrane not visualized secondary to cerumen in the canal Eyes: Conjunctivae are normal. Pupils are equal, round, and reactive to light. Right eye exhibits no discharge. Left eye exhibits no discharge. No scleral icterus. Extraocular movements intact for the left eye. Patient tells me that chronically she has a weak muscle in the right eye and is unable to perform right lateral gaze with this eye. Neck: Normal range of motion. Neck supple. No abrasion, laceration, erythema, edema, bruising or deformity of the neck. There is some mild tenderness midline as well as at the cervical paraspinal musculature at the base of the neck only. Tenderness and spasm extends into the superior aspect of the trapezius musculature bilaterally. Cardiovascular: Normal rate, regular rhythm and normal heart sounds. Pulmonary/Chest: Effort normal and breath sounds normal. No accessory muscle usage or stridor. Not tachypneic. No respiratory distress. She has no decreased breath sounds. She has no wheezes. She hasno rhonchi. She has no rales. She exhibits no tenderness. Abdominal: Soft. Bowel sounds are normal. She exhibits no distension and no mass. There is no tenderness. There is no rigidity, no rebound, no guarding and no CVA tenderness. No evidence of abdominal trauma. No bruising of the abdomen. Abdomen is soft and completely nontender. No CVA tenderness. Musculoskeletal: Right wrist: She exhibits tenderness (mild diffuse tenderness over the anterior aspect of the wristonly. No snuffbox tenderness). She exhibits normal range of motion (patient does report some pain described as a pulling sensation over the posterior aspect of the wrist with flexion), no swelling, no effusion, no crepitus, no deformity and no laceration. No thoracic midline tenderness No lumbar midline tenderness. Patient does have some mild to moderate tenderness in the left lower lumbar paraspinal musculature and left flank musculature. Mild tenderness extends into the left SI joint. She does have some bruising and tenderness at the posterior lateral left iliac crest. Patient has a small area of purple to blue colored bruising just proximal to the left elbow at the medial aspect of the upper arm. There is soft tissue tenderness only over the site of bruising. No bony tenderness of the left upper extremity. No other pain with palpation or range of motion of the upper or lower extremities bilaterally Distally patient is neurovascularly intact in the extremities bilaterally Neurological: She is alert and oriented to person, place, and time. GCS eye subscore is 4. GCS verbal subscore is 5. GCS motor subscore is 6. Reflex Scores: Patellar reflexes are 2+ on the right side and 2+ on the left side. Cranial nerves II through XII grossly intact Strength and sensation are intact in the upper and lower extremities bilaterally Skin: Skin is warm and dry. No rash noted. She is not diaphoretic. No pallor. Psychiatric: She has a normal mood and affect. Procedures Radiology/EKG/Labs: Labs Reviewed URINALYSIS POC - Abnormal; Notable for the following: UA Protein POC Trace (*) All other components within normal limits XR WRIST RIGHT PA LATERAL AND OBLIQUE (Final result) Result time:06/13/12 1534 Final result by John, Rad Results In (06/13/12 15:34:56) Narrative: Right wrist, 4 views, 1449, June 03, [id number] Trauma, pain, no priors There is no arthritis. There is no fracture or destructive lesion. The cartilage spaces are maintained. Impression, Normal [facility] XR LUMBAR SPINE AP AND LATERAL (Final result) Result time:06/13/12 1511 Final result by John, Rad Results In (06/13/12 15:11:46) Narrative: Lumbar spine, 3 views, 1449, June 03, [id number] Trauma, pain no priors There are 5 lumbar vertebrae. They are normal in shape and alignment. There is no fracture or subluxation. There is no arthritis. Impression, Normal lumbar spine [facility] CT CERVICAL SPINE WO CONTRAST (Final result) Result time:06/13/12 1502 Final result by John, Rad Results In (06/13/12 15:02:01) Narrative: CT of the cervical spine without contrast, including sagittal and coronal reformats, 1430, June 03, [id number] Trauma, pain, no contrast, no priors Limited soft tissue images show no abnormality of the imaged portions of the brain or neck. There is an accessory lobe of the right parotid gland extending more anteriorly than one typically sees. This is a developmental variant. There is a low-density lesion in the left thyroid lobe measuring over a centimeter in diameter. Consider further assessment with thyroid sonography. The imaged portions of the lung apices and the airway are normal. There is no arthritis of the spine. The cervical vertebrae are normal in shape and alignment. There is no fracture or malalignment. Impression, Normal CT of the cervical spine A small low-density left thyroid lobe lesion warrants further assessment with thyroid sonography. There is an accessory lobule of the right parotid gland. [facility] CT HEAD WO CONTRAST (Final result) Result time:06/13/12 1433 Final result by John, Rad Results In (06/13/12 14:33:30) Impression: IMPRESSION: Normal noncontrast head CT. Narrative: HEAD CT WITHOUT CONTRAST dated 06/13/2012 COMPARISON: none HISTORY: Head pain, fall FINDINGS: Ventricles, sulci, and cisterns are normal in size and position. No abnormalities are identified in the brain parenchyma. No evidence of acute intracranial hemorrhage, mass, extra-axial collection, or acute vascular territory infarct by CT. Visualized paranasal sinuses, orbits, and osseous structures are unremarkable. XR ELBOW LEFT AP LATERAL AND OBLIQUES (Final result) Result time:06/13/12 1403 Final result by John, Rad Results In (06/13/12 14:03:58) Narrative: Left elbow, 5 views, 1244, June 03, [id number] Trauma, pain, no priors There is no arthritis. There is no fracture or destructive lesion. There is no joint effusion. Impression, Normal [facility] ED Course: Appropriate laboratory and radiology studies reviewed Patient was seen and evaluated. I discussed this case with . Patient presents to the ER with a history and physical exam as detailed above. She is neurologically intact. CT head without contrast does not show any acute intracranial hemorrhage. CT of the cervical spine does not show any acute fracture. A small low density left thyroid lobe lesion was visualized. Patient is informed of this resolved and is told to followup with her primary care physician for ultrasound.x-ray of the rightwrist and lumbar spine are normal. No evidence of cauda equina syndrome. Left elbow x-ray is also unremarkable. This was ordered prior to my evaluation of the patient. Patient does not have any bony tenderness over the left elbow. Patient does have some tenderness to the left flank region. Point ofcare urine does not show any blood.Patient was offered pain medication while here in the departmentbut declines. She is given appropriate discharge, followup and return instructions and is discharged home with prescriptions for Norflex and Vicodin in good condition. BLUE report obtained, reviewed, and made part of record. After examining available information, and risks of prescribing or dispensing controlled substances to patient (including non-treatment or other treatment), it is considered medically appropriate to discharge the patient with a prescriptionfor a controlled substance. ED Clinical Impression: Fall Closed head injury Cervical strain Back contusion Right wrist pain Small low density left thyroid lobe lesion identified Critical Care time Condition at Discharge/Transfer from Department: Stable Rosalie Rivera PA-C 06/13/12 [id number] Rosalie Rivera PA-C 06/13/12 [id number] Cosigned by Matthias Delaney MD at 06/13/2012 9:47 PM EST documented in this encounter Miscellaneous Notes * Miscellaneous - Unknown, Unknown - 06/15/2012 2:35 PM EST * Miscellaneous - Unknown, Unknown - 06/15/2012 2:32 PM EST * Miscellaneous - Unknown, Unknown - 06/13/2012 2:23 PM EST * Miscellaneous - Unknown, Unknown - 06/13/2012 12:34 PM EST documented in this encounter Plan of Treatment Upcoming Encounters Date Type Department Care Team (Late st Contact Info) Description 04/24/2024 10:45 AM EST Clinical Support [facility] [address] [place] [address] documented as of this encounter Procedures Procedure Name Priority Date/Time Associated Diagnosis Comments URINALYSIS POC Routine 06/13/2012 3:50 PM EST XR WRIST RIGHT PA LATERAL AND OBLIQUE JACK 06/13/2012 3:03 PM EST XR LUMBAR SPINE AP AND LATERAL JACK 06/13/2012 3:[address] CERVICAL SPINE WO CONTRAST STAT 06/13/2012 2:[address] HEAD WO CONTRAST STAT 06/13/2012 2 :28 PM EST XR ELBOW LEFT AP LATERAL AND OBLIQUES JACK 06/13/2012 12:57 PM EST documented in this encounter Results * (ABNORMAL) URINALYSIS POC (06/13/2012 3:50 PM EST) UA Color POC Yellow [facility] UA Appear POC Clear Clear [facility] UA Gluc POC Negative Negative [facility] UA Ketones POC Negative Negative [facility] UA Blood POC Negative Negative [facility] UA pH POC 7.5 5.0 - 8.0 [facility] UA Protein POC Trace(A) Negative [facility] UA Urobilinogen POC 0.2 mg/dl <=1 mg/dl [facility] UA Nitrite POC Negative Negative [facility] Leuk Est POC Negative Negative [facility] UA SG POC 1.015 1.001 - 1.035 [facility] Urine specimen (specimen) 06/13/2012 3:50 PM EST 06/13/2012 3:50 PM EST Matthias Delaney MD POINT OF CARE TEST ORDERABLE S Final Result [facility] [address] [place] [address] * XR WRIST RIGHT PA LATERAL AND OBLIQUE (06/13/2012 3:03 PM EST) Anatomical Region Laterality Modality Wrist Radiographic Kristi ging 06/13/2012 2:20 PM EST Narrative 06/13/2012 3:34 PM EST Right wrist, 4 views, June 03, [id number] Trauma, pain, no priors There is no arthritis. There is no fracture or destructive lesion. The cartilage spaces are maintained. Impression, Normal [facility] Procedure Note Ivon, Rah Avendano MD - 06/13/2012 Right wrist, 4 views, June 03, [id number] Trauma, pain, no priors There is no arthritis. There is no fracture or destructive lesion. Thecartilage spaces are maintained. Impression, Normal [facility] Matthias Delaney MD [facility] ORDER CON Final Result * XR LUMBAR SPINE AP AND LATERAL (06/13/2012 3:03 PM EST) Anatomical Region Laterality Modality L-spine Radiographic Kristi ging 06/13/2012 2:20 PM EST Narrative 06/13/2012 3:11 PM EST Lumbar spine, 3 views, 1449, June 03, [id number] Trauma, pain no priors There are 5 lumbar vertebrae. They are normal in shape and alignment. There is no fracture or subluxation. There is no arthritis. Impression, Normal lumbar spine [facility] Procedure Note Rah [facility] MD - 06/13/2012 Lumbar spine, 3 views, 1449, June 03, [id number] Trauma, pain no priors There are 5 lumbar vertebrae. They are normal in shape and alignment.There is no fracture or subluxation. There is no arthritis. Impression, Normal lumbar spine [facility] Matthias Delaney MD [facility] ORDER CON Final Result * CT CERVICAL SPINE WO CONTRAST (06/13/2012 2:30 PM EST) Anatomical Region Laterality Modality C-spine Computed Tomogra phy 06/13/2012 2:20 PM EST Narrative 06/13/2012 3:[address] of the cervical spine without contrast, including sagittal and coronal reformats, 1430, June 03, [id number] Trauma, pain, no contrast, no priors Limited soft tissue images show no abnormality of the imaged portions of the brain or neck. There is an accessory lobe of the right parotid gland extending more anteriorly than one typically sees. This is a developmental variant. There is a low-density lesion in the left thyroid lobe measuring over a centimeter in diameter. Consider further assessment with thyroid sonography. The imaged portions of the lung apices and the airway are normal. There is no arthritis of the spine. The cervical vertebrae are normal in shape and alignment. ??There is no fracture or malalignment. Impression, Normal CT of the cervical spine A small low-density left thyroid lobe lesion warrants further assessment with thyroid sonography. There is an accessory lobule of the right parotid gland. [facility] Procedure Note Rah [facility] MD - 06/13/2012 CT of the cervical spine without contrast, including sagittal and coronalreformats, 143June 03, [id number] Trauma, pain, no contrast, no priors Limited soft tissue images show no abnormality of the imaged portions ofthe brain or neck. There is an accessory lobe of the right parotid gland extending moreanteriorly than one typically sees. This is a developmental variant. There is a low-densitylesion in the left thyroid lobe measuring over a centimeter in diameter. Consider furtherassessment with thyroid sonography. The imaged portions of the lung apices and the airway are normal. There isno arthritis of the spine. The cervical vertebrae are normal in shape and alignment. There isno fracture or malalignment. Impression, Normal CT of the cervical spine A small low-density left thyroid lobe lesion warrants further assessmentwith thyroid sonography. There is an accessory lobule of the right parotid gland. [facility] us Matthias Delaney MD IMG CT ORDERABLES Final Resu lt * CT HEAD WO CONTRAST (06/13/2012 2:28 PM EST) Anatomical Region Laterality Modality Head Computed Tomogra phy 06/13/2012 2:20 PM EST Impressions 06/13/2012 2:33 PM EST IMPRESSION: Normal noncontrast head CT. Narrative 06/13/2012 2:[address] WITHOUT CONTRAST dated 06/13/2012 COMPARISON: none HISTORY: Head pain, fall FINDINGS: Ventricles, sulci, and cisterns are normal in size and position. ??No abnormalities are identified in the brain parenchyma. ??No evidence of acute intracranial hemorrhage, mass, extra-axial collection, or acute vascular territory infarct by CT. ??Visualized paranasal sinuses, orbits, and osseous structures are unremarkable. Procedure Note Chris Steel MD - 06/13/[address] WITHOUT CONTRAST dated 06/13/2012 COMPARISON: none HISTORY: Head pain, fall FINDINGS: Ventricles, sulci, and cisterns are normal in size and position. Noabnormalities are identified in the brain parenchyma. No evidence of acute intracranialhemorrhage, mass, extra-axial collection, or acute vascular territory infarct by CT.Visualized paranasal sinuses, orbits, and osseous structures are unremarkable. IMPRESSION: Normal noncontrast head CT. Matthias Delaney MD [facility] CT ORDERABLES Final Resu lt * XR ELBOW LEFT AP LATERAL AND OBLIQUES (06/13/2012 12:57 PM EST) Anatomical Region Laterality Modality Elbow Radiographic Kristi ging 06/13/2012 12:2 3 PM EST Narrative 06/13/2012 2:03 PM EST Left elbow, 5 views, 124, June 03, [id number] Trauma, pain, no priors There is no arthritis. There is no fracture or destructive lesion. There is no joint effusion. Impression, Normal [facility] Procedure Note Ivon, Rah Avendano MD - 06/13/2012 Left elbow, 5 views, June 03, [id number] Trauma, pain, no priors There is no arthritis. There is no fracture or destructive lesion. Thereis no joint effusion. Impression, Normal [facility] Matthias Delaney MD [facility] ORDER CON Final Result documented in this encounter Visit Diagnoses Diagnosis Fall- Primary Unspecified fall Closed head injury Head injury, unspecified Cervical strain Sprain of neck Back contusion Contusion of back Right wrist sprain Sprain of wrist, unspecified site Abnormal CT scan Other nonspecific (abnormal) findings on radiological and other examinations of body structure documented in this encounter Discontinued Medications Medication Sig Discontinue Reason Start Date End Da te ibuprofen (ADVIL;MOTRIN) 400 mg tablet Take 1 Tab by mouth every 8 hours as needed for Pain for 21 doses. DELETE-Therapy completed 04/24/2012 06/13/2012 documented as of this encounter Orders Nursing Count Last Ordered Date First Orde red Date ED PRINCIPAL QUALITY ENGINEER REQUEST BLUE REPORT 1 06/13/2012 PERFORM DIPSTICK URINALYSIS 1 06/13/2012 documented in this encounter Care Teams High School Music Instructor Relationship Specialty Start Date End Date Yuliet Norman MD PCP - General 11/22/10 09/12/14 documented as of this encounter
--- OUTSIDE RECORDS SUMMARY | 2024-03-14 18:23 | XMS_ITS | Encounter Summary ---
Author Organization [place] [address] Care Team Providers Care Outsole Flexer Name Role Phone Thea Rubio MD Primary Care Provider [phone] Reason for Visit * Reason Onset Date Comments Other 08/28/2015 Encounter Details Date Type Department Care Team (Late Contact Info) Description 08/28/2015 Telephone [facility] [address] [place] [address] Thea Rubio MD [address] [place] [address] [phone] Other Social History Tobacco Use Types Packs/Day [...] * Telephone Encounter - Antonietta Richards - 09/21/2015 3:07 PM EDT other documented in this encounter Plan of Treatment Upcoming Encounters Date Type Department Care Team (Late Contact Info) Description 04/24/2024 10:45 AM EST Clinical Support [facility] [address] [facility] [place] [address] documented as of this encounter Visit Diagnoses Not on filedocumented in this encounter Care Teams Outsole Flexer Relationship Specialty Start Date End Date Thea Rubio MD PCP - General Family Medicine 09/13/14 07/16/22 documented as of this encounter
--- OUTSIDE RECORDS SUMMARY | 2024-03-14 18:23 | XMS_ITS | Encounter Summary ---
Author Organization [place] [address] Care Team Providers Care Manager Test Name Role Phone Yuliet Norman MD Primary Care Provider [phone] Reason for Visit * Reason Comments Headache ambulated to triage with c/o sharp pain left posterior head. denies other c/o CPTA: ibuprofen Encounter Details Date Type Department Care Team (Late st Contact Info) Description 11/05/2011 12:39 AM EDT - 11/05/2011 1:03 AM EDT Emergency [facility] [address] [place] [id number] Matthew Salas MD [address] [place] [phone] Occipital neuralgia Discharge Disposition: Home or Self Care Social [...] Sign Reading Time Taken Comments Blood Pressure 118/78 11/04/2011 11:58 PM EDT Pulse 78 11/04/2011 11:58 PM EDT Temperature 36.5 ??C (97.7 ??F) 11/04/2011 11:58 PM E DT Respiratory Rate 18 11/04/2011 11:58 PM EDT Oxygen Saturation 99% 11/04/2011 11:58 PM EDT Inhaled Oxygen Concentration - - Weight 81.6 kg (180 lb) 11/04/2011 11:58 PM EDT Height 165.1 cm (5' 5 ) 11/04/2011 11:58 PM EDT Body Mass Index 29.95 11/04/2011 11:58 PM EDT documented in this encounter Discharge Instructions * Discharge Instructions* Matthew Salas MD - 11/05/2011 12:59 AM EDT Return if worse documented in this encounter Medications at Time of Discharge HYDROcodone-acet aminophen (LORTAB) 5-500 mg per tablet Take 1-2 Tabs by mouth every 6 hours as needed for Pain for 3 days. 12 Tab 0 11/05/2011 2 ibuprofen (ADVIL;MOTRIN) 800 mg Take 1 Tab by mouth every 8 hours as needed for 21 doses. 21 Tab 0 03/13/2011 3 methylPREDNISolo ne (MEDROL, JOSE,) 4 mg tablet follow package directions 21 Tab 0 11/05/2011 2 documented as of this encounter Ordered Prescriptions Prescription Sig Dispense Quantity Refills Last Filled Start Date End Date methylPREDNISolone (MEDROL, JOSE,) 4 mg tablet follow package directions 21 Tab 0 11/05/2011 2 HYDROcodone-acetam inophen (LORTAB) 5-500 mg per tablet Take 1-2 Tabs by mouth every 6 hours as needed for Pain for 3 days. 12 Tab 0 11/05/2011 2 documented in this encounter Discharge Disposition Disposition Code Departure Means Destination Home or Self Care documented in this encounter Progress Notes * Unknown, Unknown - 11/05/2011 12:51 AM EDT * Unknown, Unknown - 11/05/2011 12:50 AM EDT documented in this encounter ED Notes * Matthew Salas MD - 11/05/2011 12:55 AM EDT Chief Complaint Patient presents with ??? Headache ambulated to triage with c/o sharp pain left posterior head. denies other c/o CPTA: ibuprofen HPI Comments: 41-year-old female complains of a 2-1/2 week history of sharp pain emanating from theleft occipital scalp area radiating over the left side of her head and around towards the ear. Painis constant, throbbing, does not respond to Tylenol or her usual migraine medicine her home. She denies injury to head. She denies earache or sore throat. Denies sinus congestion. She denies fever or chills. She denies neck pain or stiffness The history is provided by the patient. Allergies Allergen Reactions ??? Aspirin Home Medications: Prior to Admission medications Medication Sig Start Date End Date Taking? Authorizing Provider ibuprofen (ADVIL;MOTRIN) 800 mg Take 1 Tab by mouth every 8 hours as needed for 21 doses. 03/13/11 Yes Genaro Savage MD Past Medical History: Past Medical History Diagnosis Date ??? 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 She does not have any smokeless tobacco history on file. She reports that she does not currently drink alcohol or use illicit drugs. Family History: History reviewed. No pertinent family history. Surgical History: Past Surgical History Procedure Date ??? Abdomen surgery for bile duct Review of Systems All other systems reviewed and are negative. Blood pressure 118/78, pulse 78, temperature 97.7 ??F (36.5 ??C), temperature source Oral, resp. rate 18, height 5' 5 (1.651 m), weight 180 lb (81.647 kg), last menstrual period 10/20/2011, SpO2 99.00%. Physical Exam Nursing note and vitals reviewed. [...] sounds are normal. She exhibits no distension. No tenderness. Musculoskeletal: She exhibits no edema. Lymphadenopathy: She has no cervical adenopathy. Neurological: She is alert and oriented to person, place, and time. Skin: Skin is warm and dry. No rash noted. Psychiatric: She has a normal mood and affect. Procedures Radiology/EKG/Labs: ED Course: Patient will be treated with Lortab and a Medrol Dosepak ED Clinical Impression: Occipital neuralgia Condition at Discharge/Transfer from Department: Stable Matthew Salas MD 11/05/11 0159 documented in this encounter Miscellaneous Notes * Miscellaneous - Unknown, Unknown - 11/05/2011 3:27 PM EDT documented in this encounter Plan of Treatment Upcoming Encounters Date Type Department Care Team (Late st Contact Info) Description 04/24/2024 10:45 AM EST Clinical Support [address] [phone] documented as of this encounter Visit Diagnoses Diagnosis Occipital neuralgia Other syndromes affecting cervical region documented in this encounter Administered Medications Inactive Administered Medications - up to 1 most recent administrations Medication Order MAR Action Action Date Dose Rate Site HYDROcodone-acetaminophen (NORCO) 5-325 mg per tablet 1 Tab 1 Tablet, Oral, ONCE, 1 dose, On Fri11/05/11 at 0100, Maximum dose of acetaminophen is 4000 mg from all sources in 24 hours. Given 11/05/2011 1:03 AM EDT 1 Tablet documented in this encounter Active and Recently Administered Medications Times are shown in EDT. Scheduled Medication Order 11/03/2011 11/04/2011 11/05/2011 HYDROcodone-acetaminophen (NORCO) 5-325 mg per tablet 1 Tab (COMPLETED) 1 Tablet, Oral, ONCE, 1 dose, On Fri11/05/11 at 0100, Maximum dose of acetaminophen is 4000 mg from all sources in 24 hours. 0103 (Given - Provid er: Brisa M Mygatt, RN) documented in this encounter Care Teams Manager Test Relationship Specialty Start Date End Date Yuliet Norman MD PCP - General 11/22/10 09/12/14 documented as of this encounter
--- OUTSIDE RECORDS SUMMARY | 2024-03-14 18:23 | XMS_ITS | Encounter Summary ---
Author Organization [place] [address] Care Team Providers Care Asparagus Buncher Name Role Phone Thea Rubio MD Primary Care Provider [phone] Reason for Visit * Reason Onset Date Comments ED Follow-Up Call 06/21/2015 Encounter Details Date Type Department Care Team (Late st Contact Info) Description 06/21/2015 Patient Outreach [facility] [address] [place] [address] Susan Oliveira RMA [address] [place], [place] [id number] ED Follow-Up Call Social History Tobacco Use [...] Telephone Encounter - Susan Oliveira RMA - 06/21/2015 5:43 PM EST Contact made with patient in reference to follow up on recent discharge to home / self-care from a [facility] (ED). ?? Patient reports feeling better today. ?? Patient verbalizes good understanding of why they went to the ED. ?? Patient feels she did go to the ED for a life threatening condition. ?? If did not , reason: N/A ?? Patient was given a prescription for medication. ?? Is patient taking medication as expected? Yes ?? PCP office does require a follow up with her PCP (if not nearly or fully resolved, encourage/schedule a follow up visit). ?? What else could have been done to potentially avoid the visit to the ED? na Please remind patient that if they have any changes in condition or any emergent clinical issues, please contact their primary care office or physician salesperson new cars to ensure we meet their needs. Please remind patients to CALL THEIR DOCTOR FIRST before going to the Emergency Department. documented in this encounter Plan of Treatment Upcoming Encounters Date Type Department Care Team (Late st Contact Info) Description 04/24/2024 10:45 AM EST Clinical Support [facility] [address] [place] [address] documented as of this encounter Visit Diagnoses Not on filedocumented in this encounter Care Teams Asparagus Buncher Relationship Specialty Start Date End Date Thea Rubio MD PCP - General Family Medicine 09/13/14 07/16/22 documented as of this encounter
--- OUTSIDE RECORDS SUMMARY | 2024-03-14 18:23 | XMS_ITS | Encounter Summary ---
Author Organization [place] [address] Care Team Providers Care Supervisor Assembly Room Name Role Phone Thea Rubio MD Primary Care Provider [phone] Reason for Visit * Reason Comments Neck Pain stiff neck x 4 weeks . seen in the ED last week for bronchitis and cervical strain Encounter Details Date Type Department Care Team (Late st Contact Info) Description 06/19/2015 4:06 PM EST - 06/19/2015 4:56 PM EST Emergency [facility] [address] [facility] [place] [address] Ryan Vargas MD [address] [place] [phone] Muscle spasms of neck (Primary Dx) Discharge Disposition: Home or Self [...] Sign Reading Time Taken Comments Blood Pressure 121/87 06/19/2015 4:10 PM EST Pulse 100 06/19/2015 4:10 PM EST Temperature 36.9 ??C (98.4 ??F) 06/19/2015 3:49 PM ES T Respiratory Rate 22 06/19/2015 4:10 PM EST Oxygen Saturation 100% 06/19/2015 4:10 PM EST Inhaled Oxygen Concentration - - Weight 86.2 kg (190 lb) 06/19/2015 3:49 PM EST Height 166.4 cm (5' 5.5 ) 06/19/2015 3:49 PM EST Body Mass Index 31.14 06/19/2015 3:49 PM EST documented in this encounter Discharge Instructions * Discharge Instructions* Mohamud Lee PA-C - 06/19/2015 4:41 PM EST Valium as prescribed. Do not drive or work on this medication. Ice and heat as needed for symptomatic relief. Follow-up with family care provider. Return to the ER for any fever, intense headache, rash, chest pain or difficulty breathing, vomiting, numbness or weakness, difficulty walking, loss of control of bowel or bladder, symptoms worsen, or for any other concern. documented in this encounter Ordered Prescriptions Prescription Sig Dispense Quantity Refills Last Filled Start Date End Date diazepam (VALIUM) 5 mg Oral Tablet Take 1 Tab by mouth every 12 hours as needed. 10 Tab 0 06/19/2015 12/19/2015 documented in this encounter Discharge Disposition Disposition Code Departure Means Destination Home or Self Longterm documented in this encounter ED Notes * Mohamud Lee PA-C - 06/19/2015 5:28 PM EST Chief Complaint Patient presents with ??? Neck Pain stiff neck x 4 weeks. seen in the ED last week for bronchitis and cervical strain This is a 35-year-old female seen for Dr. Vargas. Patient presents to the ER with intermittent tightness in her bilateral neck area. She tells me that she was recently treated for bronchitis and has been coughing a lot. She feels like she has pulled muscles in her neck. She was treated with antibiotics and states her bronchitis is improved, but she still having tightness in her neck. This is minimal at rest, but occurs with twisting her neck. She is taking Flexeril with normal relief. No trauma or injury. Patient has been eating/drinking without difficulty or pain. She denies any fever, cephalgia, numbness, weakness, visual changes, chest pain, shortness of breath, difficulty breathing, ear pain, sore throat, abdominal pain, nausea, vomiting, diarrhea, dysuria, rash, concern for , numbness/weakness in extremities, loss of control of bowel or bladder, or any other complaint. Patient is a 35 y.o. female presenting with neck pain. History provided by: Patient Neck Pain Allergies Allergen Reactions ??? Aspirin Not sure of rxn. ??? Morphine Nausea And Vomiting Home Medications: Prior to Admission medications Medication Sig Start Date End Date Taking? Authorizing Provider cyclobenzaprine (FLEXERIL) 10 mg Oral Tablet Take 1 Tab by mouth 3 times daily as needed for Musclespasms for up to 10 doses. 06/11/15 Yes Bud Ibarra MD SUMAtriptan (IMITREX) 25 mg tablet Take by mouth as needed for Migraine. Yes Provider, Historical topiramate (TOPAMAX) 50 mg Oral Tablet Take 1 Tab by mouth 2 times daily. May add extra pill at night when having migraine flares. 03/17/15 Yes Thea Rubio MD albuterol (PROVENTIL HFA;VENTOLIN HFA) 90 mcg/actuation Inhl HFA Aerosol Inhaler Inhale 1-2 Puffs into the lungs every 6 hours as needed for Wheezing. 06/11/15 Bud Ibarra MD codeine-guaiFENesin (ROBITUSSIN AC) 10-100 mg/5 mL Oral Liquid Take 5-10 mL by mouth every 6 hours as needed for Cough. 06/14/15 Thea Rubio MD diazepam (VALIUM) 5 mg Oral Tablet Take 1 Tab by mouth every 12 hours as needed. 06/19/15 Ryan Vargas MD dicyclomine (BENTYL) 10 mg Oral Capsule Take 10 mg by mouth 4 times daily as needed (for cramps after menses). Provider, Historical Past Medical History: Past Medical History Diagnosis Date ??? 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 Biliary atresia ??? Migraines Social History: reports that she quit smoking about 21 years ago. She has never used smokeless tobacco. She reports that she currently engages in sexual activity and has had male partners. She reports that she does not drink alcohol or use illicit drugs. Family History: Family History Problem Relation [...] causes head aneurysms. Surgical History: Past Surgical History Procedure Laterality Date ??? Abdomen surgery as infant, with CCX, Appy for bile duct ??? Appendectomy couple mos old ??? Cholecystectomy couple mos old. Infant Review of Systems Musculoskeletal: Positive for neck pain. All other systems reviewed and are negative. Blood pressure 121/87, pulse 100, temperature 98.4 ??F (36.9 ??C), temperature source Oral, resp. rate 22, height 5' 5.5 (1.664 m), weight 190 lb (86.183 kg), last menstrual period 05/22/2015, SpO2 100 %. Physical Exam Constitutional: She is oriented to person, place, and time. She appears well- developed and well-nourished. No distress. HENT: Head: Normocephalic and atraumatic. Right Ear: External ear normal. Left Ear: External ear normal. Nose: Nose normal. Mouth/Throat: Oropharynx is clear and moist. No oropharyngeal exudate. Eyes: Conjunctivae and EOM are normal. Pupils are equal, round, and reactive to light. Right eye exhibits no discharge. Left eye exhibits no discharge. No scleral icterus. Neck: Normal range of motion. Neck supple. Cardiovascular: Normal rate, regular rhythm and normal heart sounds. Heart rate is 92 bpm on exam. Pulmonary/Chest: Effort normal and breath sounds normal. No respiratory distress. She has no wheezes. She has no rales. Abdominal: Soft. Bowel sounds are normal. She exhibits no distension and no mass. There is no tenderness. There is no rebound and no guarding. Musculoskeletal: Normal range of motion. Mild tenderness over bilateral trapezius muscles with palpable spasm. No rash. No midline tenderness, spasm, or focal tenderness. Neurological: She is alert and oriented to person, place, and time. She has normal reflexes. She displays normal reflexes. No cranial nerve deficit. She exhibits normal muscle tone. Coordination normal. Patellar, Achilles, and Brachioradialis reflexes are intact and brisk. Patient has 5/5 strength in upper and lower extremities including on flexion and extension of the knees as well as plantarflexion and dorsiflexion of feet. Cranial nerves II through XII are intact. All extremities are neurovascularly intact distally. Skin: Skin is warm and dry. She is not diaphoretic. Psychiatric: She has a normal mood and affect. Her behavior is normal. Nursing note and vitals reviewed. Procedures Radiology/EKG/Labs: None. ED Course: Appropriate laboratory and radiology studies reviewed This patient is interviewed, examined, and discussed with Dr. Vargas. Patient presents with neck stiffness/tightness. Patient is well appearing. Initial tachycardia is resolving my exam. She is neurologically intact. Patient exam consistent with muscle spasm. She will be treated with Valium. I offered treatment in the ER, but she is requesting prescription and discharge. She is educated on symptomatic treatment and prevention. She will follow up with family care provider. All questions are answered. She is in agreement with plan. The patient is discharged in good condition with precautions to return to ER. ED Clinical Impression: Muscle spasms of neck Critical Care time Condition at Discharge/Transfer from Department: Stable This chart was completed using voice recognition technology and may contain unintended errors Mohamud Lee PA-C 06/19/15 1732 Cosigned by Ryan Vargas MD at 06/19/2015 11:12 PM EST Associated attestation - Ryan Vargas MD - 06/19/2015 11:12 PM EST This chart was completed using voice recognition technology and may contain unintended errors documented in this encounter Plan of Treatment Upcoming Encounters Date Type Department Care Team (Late st Contact Info) Description 04/24/2024 10:45 AM EST Clinical Support [facility] [address] [place] [address] documented as of this encounter Visit Diagnoses Diagnosis Muscle spasms of neck- Primary Spasm of muscle documented in this encounter Orders Nursing Count Last Ordered Date First Orde red Date ED MOTORIZED SQUAD CAPTAIN REQUEST BLUE REPORT 1 06/19/2015 documented in this encounter Care Teams Supervisor Assembly Room Relationship Specialty Start Date End Date Thea Rubio MD PCP - General Family Medicine 09/13/14 07/16/22 documented as of this encounter
--- OUTSIDE RECORDS SUMMARY | 2024-03-14 18:23 | XMS_ITS | Encounter Summary ---
Author [place] [address] Care Team Providers Care Administrative Sales Assistant Name Role Phone Yuliet Norman MD Primary Care Provider [phone] Reason for Visit * Reason Comments Headache head pressure in bas e of skull, started few hours ago. also having dizziness/lightheadedness. denies fever. denies photo/phonophobia. denies nausea. denies stiff neck. no meds taken for pain Encounter Details Date Type Department Care Team (Late st Contact Info) Description 04/10/2012 8:44 PM EST - 04/10/2012 9:43 PM EST Emergency [facility] [address] [facility] [place] [address] Gerard Geiger, [address] [id number] Cephalgia (Primary Dx) Discharge Disposition: Home [...] Sign Reading Time Taken Comments Blood Pressure 113/73 04/10/2012 8:29 PM EST Pulse 74 04/10/2012 8:29 PM EST Temperature 36.4 ??C (97.6 ??F) 04/10/2012 8:29 PM ES T Respiratory Rate 16 04/10/2012 8:29 PM EST Oxygen Saturation 100% 04/10/2012 8:29 PM EST Inhaled Oxygen Concentration - - Weight 77.1 kg (170 lb) 04/10/2012 8:29 PM EST Height 165.1 cm (5' 5 ) 04/10/2012 8:29 PM EST Body Mass Index 28.29 04/10/2012 8:29 PM EST documented in this encounter Discharge Instructions * Attachments The following attachments cannot be sent through Care Everywhere. * HEADACHE, FAQ'S (LUXEMBOURGER) documented in this encounter Medications at Time of Discharge ibuprofen (ADVIL;MOTRIN) 800 mg Take 1 Tab by mouth every 8 hours as needed for 21 doses. 21 Tab 0 03/13/2011 10/09/2012 documented as of this encounter Discharge Disposition Disposition Code Departure Means Destination Home or Self [facility] documented in this encounter ED Notes * Brittany Martinez RN - 04/10/2012 9:42 PM EST Discharge instructions given to patient who verbalized understanding and posed no questions. Pt awake, alert, MMM and pink, respers easy and unlabored, NAD. Out of ED ambulatory. RX received - n/a Designated drive with pt - yes Pt verbalized understanding to not drive today - yes Condition: good * Gerard Geiger DO - 04/10/2012 9:12 PM EST Chief Complaint Patient presents with ??? Headache head pressure in base of skull, started few hours ago. also having dizziness/lightheadedness. denies fever. denies photo/phonophobia. denies nausea. denies stiff neck. no meds taken for pain HPI Comments: 32-year-old female presents to the emergency department with chief complaint of headache. Patient states her symptoms began approximate 5:30 PM today after riding home from work. Patient states she began with transient vague dizziness which has progressed to a posterior occiput headache. Patient states he has a pressure-like sensation. She denies any neck pain or stiffness. She denies any skin rash. She denies having fever or chills. She denies having any numbness or weakness. Shereports history of similar headaches in the past. She denies any recent head injury. She denies anyknown carbon monoxide exposure. Patient has not taken any medication for her headache prior to arrival. She has not noticed any exacerbating factors regarding her headache. The history is provided by the patient. [...] surgery for bile duct Review of Systems Constitutional: Negative for fever and chills. Eyes: Negative. Respiratory: Negative for cough and shortness of breath. Cardiovascular: Negative for chest pain, palpitations and leg swelling. Gastrointestinal: Negative for nausea, vomiting, abdominal pain and diarrhea. Genitourinary: Negative for dysuria and frequency. Musculoskeletal: Negative. Skin: Negative for rash. Neurological: Positive for dizziness (resolved) and headaches. Negative for weakness and numbness. Psychiatric/Behavioral: Negative. All other systems reviewed and are negative. Blood pressure 113/73, pulse 74, temperature 97.6 ??F (36.4 ??C), temperature source Oral, resp. rate 16, height 5' 5 (1.651 m), weight 170 lb (77.111 kg), last menstrual period 04/03/2012, SpO2 100.00%. Physical Exam Nursing note and vitals reviewed. Constitutional: She is oriented to person, place, and time. She appears well- developed and well-nourished. No distress. HENT: Mouth/Throat: Oropharynx is clear and moist. TMs are occluded by cerumen bilaterally. No tenderness over patient's mastoid processes. No frontalor ethmoid sinus tenderness. Nose is clear. Posterior pharynx is clear. Eyes: Conjunctivae and EOM are normal. Pupils are equal, round, and reactive to light. Patient has strabismus. Funduscopic exam revealing no evidence of papilledema. Disc margins are sharp bilaterally. Neck: Normal range of motion. Neck supple. No nuchal rigidity or meningismus. Cardiovascular: Normal rate, regular rhythm, normal heart sounds and intact distal pulses. Exam reveals no gallop and no friction rub. No murmur heard. Pulmonary/Chest: Effort normal and breath sounds normal. Abdominal: Soft. Bowel sounds are normal. She exhibits no distension. There is no tenderness. Musculoskeletal: She exhibits no edema. Lymphadenopathy: She has no cervical adenopathy. Neurological: She is alert and oriented to person, place, and time. Patient has no focal motor or sensory deficit on exam. Skin: Skin is warm and dry. No rash noted. Psychiatric: She has a normal mood and affect. Procedures Radiology/EKG/Labs: none ED Course: Appropriate laboratory and radiology studies reviewed Patient presented to the ED with chief complaint of headache. Her physical exam is benign. His headache is similar to her typical headaches. She is treated with intramuscular morphine and Phenergan and discharged home. She is instructed to followup with her family physician. She was given return toED precautions at discharge. ED Clinical Impression: Cephalgia Critical Care time Condition at Discharge/Transfer from Department: Stable Gerard Geiger DO 04/10/122115 documented in this encounter Miscellaneous Notes * Miscellaneous - Unknown, Unknown - 04/13/2012 12:44 PM EST * Miscellaneous - Unknown, Unknown - 04/10/2012 9:11 PM EST * Miscellaneous - Unknown, Unknown - 04/10/2012 8:10 PM EST documented in this encounter Plan of Treatment Upcoming Encounters Date Type Department Care Team (Late st Contact Info) Description 04/24/2024 10:45 AM EST Clinical [facility] [address] [facility] [place] [address] documented as of this encounter Visit Diagnoses Diagnosis Cephalgia- Primary Headache documented in this encounter Administered Medications Inactive Administered Medications - up to 1 most recent administrations Medication Order MAR Action Action Date Dose Rate Site morphine injection 10 mg 10 mg, Intramuscular, ONCE, 1 dose, On Fri04/10/12 at 2114 Given 04/10/2012 9:37 PM EST 10 mg promethazine (PHENERGAN) injection 25 mg 25 mg, Intramuscular, ONCE, 1 dose, On Fri04/10/12 at 2114, If administering promethazine IV, must dilute to 10 mL Bacteriostatic NaCl prior to administration. Administer through a running IV ONLY Given 04/10/2012 9:37 PM EST 25 mg documented in this encounter Active and Recently Administered Medications Times are shown in EST. Scheduled Medication Order 04/08/2012 04/09/2012 04/10/2012 morphine injection 10 mg (COMPLETED) 10 mg, Intramuscular, ONCE, 1 dose, On Fri04/10/12 at 2114 2136 (Given - Provid er: Elsa Celis RN) promethazine (PHENERGAN) injection 25 mg (COMPLETED) 25 mg, Intramuscular, ONCE, 1 dose, On Fri04/10/12 at 2114, If administering promethazine IV, must dilute to 10 mL Bacteriostatic NaCl prior to administration. Administer through a running IV ONLY 2136 (Given - Provid er: Elsa Celis RN) documented in this encounter Care Teams Administrative Sales Assistant Relationship Specialty Start Date End Date Yuliet Norman MD PCP - General 11/22/10 09/12/14 documented as of this encounter
--- OUTSIDE RECORDS SUMMARY | 2024-03-14 18:23 | XMS_ITS | Encounter Summary ---
Author Organization [place] [address] Care Team Providers Care Construction Representative Name Role Phone Yuliet Norman MD Primary Care Provider [phone] Reason for Visit * Reason Comments Hand Pain states carried garba ge out last night and no other injury, but pain since I carried the garbage ,pain mostly at base of fingers Encounter Details Date Type Department Care Team (Late st Contact Info) Description 05/07/2013 9:45 AM EST - 05/07/2013 11:33 AM EST Emergency [facility] [address] [place] [address] Vilma Cotto MD [address] [place] [id number] Finger strain (Primary Dx) Discharge Disposition: Home or Self [...] Sign Reading Time Taken Comments Blood Pressure 114/76 05/07/2013 9:42 AM EST Pulse 77 05/07/2013 9:42 AM EST Temperature 36.4 ??C (97.5 ??F) 05/07/2013 9:42 AM ES T Respiratory Rate 16 05/07/2013 9:42 AM EST Oxygen Saturation 98% 05/07/2013 9:42 AM EST Inhaled Oxygen Concentration - - Weight 81.6 kg (180 lb) 05/07/2013 9:42 AM EST Height 166.4 cm (5' 5.5 ) 05/07/2013 9:42 AM EST Body Mass Index 29.5 05/07/2013 9:42 AM EST documented in this encounter Discharge Instructions * Discharge Instructions* Chery Quiñones PA-C - 05/07/2013 11:13 AM EST Rest, ice, and elevate the right hand Activity as tolerated Wear the splint daily as needed Ibuprofen every 6-8 hours as needed for pain or diclofenac Off work 05/07 Followup with orthopedics next week if not improving Return to the ER as needed documented in this encounter Discharge Disposition Disposition Code Departure Means Destination Home or Self Assisted documented in this encounter ED Notes * Elba Saunders - 05/07/2013 11:26 AM EST Finger splint was held in place with a small mariaa wrap * Cheyr Quiñones PA-C - 05/07/2013 10:42 AM EST Chief Complaint Patient presents with ??? Hand Pain states carried garbage out last night and no other injury, but pain since I carried the garbage ,pain mostly at base of fingers HPI Comments: Patient seen for Dr. Vilma Cotto The patient is a 33-year-old female who presents to the emergency room with pain in the right hand.Patient states that last evening, she lifted a bag of garbage. When she returned into the house, she had pain in the space between the third and fourth metacarpals. Other than carrying the garbage, she cannot recall any injury or trauma. Patient is right-hand dominant. She tells me she had a fractur e in her wrist 6 years ago. She was unable to go in to work because of her discomfort and presents here for evaluation The history is provided by the patient. No vice president of instruction was used. Allergies Allergen Reactions ??? Aspirin ??? Morphine [...] Systems Constitutional: Negative for fever and chills. HENT: Negative. Eyes: Negative. Respiratory: Negative for cough and shortness of breath. Cardiovascular: Negative for chest pain, palpitations and leg swelling. Gastrointestinal: Negative for nausea, vomiting, abdominal pain and diarrhea. Genitourinary: Negative for dysuria and frequency. Skin: Negative for rash. Neurological: Negative. Psychiatric/Behavioral: Negative. All other systems reviewed and are negative. Blood pressure 114/76, pulse 77, temperature 97.5 ??F (36.4 ??C), temperature source Oral, resp. rate 16, height 5' 5.5 (1.664 m), weight 180 lb (81.647 kg), last menstrual period 04/06/2013, SpO2 98.00%. Physical Exam Nursing note and vitals reviewed. Constitutional: She is oriented to person, place, and time. She appears well- developed and well-nourished. No distress. HENT: Head: Normocephalic and atraumatic. Eyes: Conjunctivae and EOM are normal. Pupils are equal, round, and reactive to light. No scleral icterus. Neck: Normal range of motion. Pulmonary/Chest: Effort normal. Musculoskeletal: Normal range of motion. The patient has full range of motion of her right upper extremity. She is able to move the fingers without difficulty. She complains of pain in the web space between the third and fourth fingers and metacarpal region. There is no soft tissue swelling or evidence of ecchymosis. She is nontender otherwise throughout the hand. Distally, she is neurovascularly intact Neurological: She is alert and oriented to person, place, and time. No cranial nerve deficit. Coordination normal. Skin: Skin is warm and dry. No rash noted. Psychiatric: She has a normal mood and affect. Her behavior is normal. Judgment and thought contentnormal. Procedures Radiology/EKG/Labs: Results for orders placed during the hospital encounter of 05/07/13 XR HAND RIGHT PA LATERAL AND OBLIQUE Narrative: XR HAND RIGHT PA LATERAL AND OBLIQUE May 07, 2013 10:40:35 AM HISTORY: Injury and Pain No osseous, soft tissue, joint space abnormality seen. Impression: Impression: Negative exam. ED Course: Appropriate laboratory and radiology studies reviewed The patient was seen and evaluated by me the emergency department. I discussed the above x-ray finding with the patient. Patient had a long aluminum splint placed on the third and fourth fingers downto the palm. Recommend ice and elevation. This should be self-limiting however if the patient is having pain a few days, she should followup with orthopedics ED Clinical Impression: Finger strain ( right third and fourth fingers) Critical Care time Condition at Discharge/Transfer from Department: Stable This chart was completed using voice recognition technology and may contain unintended errors Chery Quiñones PA-C 05/07/13 1111 Cosigned by Vilma Cotto MD at 05/07/2013 1:57 PM EST documented in this encounter Plan of Treatment Upcoming Encounters Date Type Department Care Team (Late st Contact Info) Description 04/24/2024 10:45 AM EST Clinical Support [facility] [address] [place] [address] documented as of this encounter Procedures Procedure Name Priority Date/Time Associated Diagnosis Comments XR HAND RIGHT PA LATERAL AND OBLIQUE JACK 05/07/2013 10:40 AM EST documented in this encounter Results * XR HAND RIGHT PA LATERAL AND OBLIQUE (05/07/2013 10:40 AM EST) Anatomical Region Laterality Modality Hand Radiographic Kristi ging 05/07/2013 10:2 6 AM EST Impressions 05/07/2013 10:55 AM EST Impression: ??Negative exam. Narrative 05/07/2013 10:55 AM EST XR HAND RIGHT PA LATERAL AND OBLIQUE ??May 07, 2013 10:40:35 AM HISTORY: ??Injury and Pain No osseous, soft tissue, joint space abnormality seen. Procedure Note Omar Loredo MD - 05/07/2013 XR HAND RIGHT PA LATERAL AND OBLIQUE May 07, 2013 10:40:35 AM HISTORY: Injury and Pain No osseous, soft tissue, joint space abnormality seen. Impression: Negative exam. us Vilma Cotto MD IMG DIAGNOSTIC IMAGING ORDERABLE S Final Result documented in this encounter Visit Diagnoses Diagnosis Finger strain- Primary Sprain of hand, unspecified site documented in this encounter Orders Nursing Count Last Ordered Date First Orde red Date SPLINT, PREFAB 1 05/07/2013 documented in this encounter Care Teams Construction Representative Relationship Specialty Start Date End Date Yuliet Norman MD PCP - General 11/22/10 09/12/14 documented as of this encounter
--- OUTSIDE RECORDS SUMMARY | 2024-03-14 18:23 | XMS_ITS | Encounter Summary ---
Author Organization [place] [address] Care Team Providers Care Spinning Bath Patroller Name Role Phone Thea Rubio MD Primary Care Provider +1- [phone] Reason for Visit * Reason Comments Neck Pain pt states she thinks she pulled a muscle from coughing Cough for 4 to 5 days, als o has runny nose Encounter Details Date Type Department Care Team (Late Contact Info) Description 06/11/2015 12:48 PM EST - 06/11/2015 1:45 PM EST Emergency [facility] [address] [place] [address] Bud Ibarra MD [address] [place] [id number] Bronchitis (Primary Dx); Cervical strain, acute, initial encounter Discharge Disposition: Home or Self [...] Sign Reading Time Taken Comments Blood Pressure 135/87 06/11/2015 12:52 PM EST Pulse 86 06/11/2015 12:52 PM EST Temperature 36.7 ??C (98 ??F) 06/11/2015 12:52 PM EST Respiratory Rate 18 06/11/2015 12:52 PM EST Oxygen Saturation 100% 06/11/2015 12:52 PM EST Inhaled Oxygen Concentration - - Weight 84.4 kg (186 lb) 06/11/2015 12:52 PM EST Height 165.1 cm (5' 5 ) 06/11/2015 12:52 PM EST Body Mass Index 30.95 06/11/2015 12:52 PM EST documented in this encounter Discharge Instructions * Discharge Instructions* Aram Valverde PA-C - 06/11/2015 1:27 PM EST Medication as prescribed. Followup with primary care provider in 2-4 days if no improvement or sooner if worse. Return to emergency department for any difficulty breathing, difficulty swallowing, fever not responding to medication, chest pain, coughing up blood, or other concerning symptoms. documented in this encounter Medications at Time of Discharge azithromycin (ZITHROMAX) 250 mg Oral Tablet Day 1 - take 2 tablets Day 2 - take 1 tablet Day 3 - take 1 tablet Day 4 - take 1 tablet Day 5 - take 1 tablet 6 Tab 0 06/11/2015 06/16/2015 predniSONE (DELTASONE) 20 mg Oral Tablet Take 2 Tabs by mouth daily for 5 days. 10 Tab 0 06/11/2015 06/16/2015 documented as of this encounter Ordered Prescriptions Prescription Sig Dispense Quantity Refills Last Filled Start Date End Date cyclobenzaprine (FLEXERIL) 10 mg Oral Tablet Take 1 Tab by mouth 3 times daily as needed for Muscle spasms for up to 10 doses. 10 Tab 0 06/11/2015 6 azithromycin (ZITHROMAX) 250 mg Oral Tablet Day 1 - take 2 tablets Day 2 - take 1 tablet Day 3 - take 1 tablet Day 4 - take 1 tablet Day 5 - take 1 tablet 6 Tab 0 06/11/2015 6 albuterol (PROVENTIL HFA;VENTOLIN HFA) 90 mcg/actuation Inhl HFA Aerosol Inhaler Inhale 1-2 Puffs into the lungs every 6 hours as needed for Wheezing. 1 Inhaler 0 06/11/2015 6 predniSONE (DELTASONE) 20 mg Oral Tablet Take 2 Tabs by mouth daily for 5 days. 10 Tab 0 06/11/2015 6 documented in this encounter Discharge Disposition Disposition Code Departure Means Destination Home or Self Long Term documented in this encounter ED Notes * Aram Valverde PA-C - 06/11/2015 1:09 PM EST Chief Complaint Patient presents with ??? Neck Pain pt states she thinks she pulled a muscle from coughing ??? Cough for 4 to 5 days, also has runny nose HPI Comments: This is a 35-year-old female presents to emergency department today for evaluation ofcough and neck pain. She states she has had cough for the past 2 weeks and her neck pain has been present for one week and developed that she was coughing. She is here for evaluation. She plans of nonproductive cough. She complains of occasional shortness of breath and wheezing, butnot currently. No hemoptysis. She can buy the rhinorrhea, congestion and right ear congestion. No tinnitus or dizziness. No hearing loss. Denies any sore throat, headache, photophobia, or actual neck stiffness. Denies any fevers or chills. One week ago when she was coughing she developed midline cervical neck pain radiates to the bilateral trapezius muscles. The pain is stabbing and 5/10 in intensity. This is constant and worse with cough and bilateral rotation of the neck. No alleviating factors. No radiating pain or radicular symptoms. Former tobacco smoker. No history of blood clots, DVT, or pulmonary embolism. No recent long distance travel or surgery. No oral contraceptive/estrogens. No further pertinent medical or surgical history. See below for complete medical and surgical history. 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 Aspirin Not sure [...] migraine flares. 03/17/15 Yes Thea Rubio MD Past Medical History: Past Medical History Diagnosis Date ??? 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 Biliary atresia ??? Migraines Social History: reports that she quit smoking about 21 years ago. She has never used smokeless tobacco. She reports that she drinks alcohol. She reports that she currently engages in sexual activity and has had male partners. She reports that she does not use illicit drugs. Family History: Family History [...] Infant Review of Systems Constitutional: Negative for fever, chills, diaphoresis, activity change and appetite change. HENT: Positive for congestion and rhinorrhea. Negative for ear pain, postnasal drip, sore throat, tinnitus and trouble swallowing. Eyes: Negative for photophobia and pain. Respiratory: Positive for cough, shortness of breath and wheezing. Negative for chest tightness andstridor. Cardiovascular: Negative for chest pain, palpitations and leg swelling. Gastrointestinal: Negative for nausea, vomiting, abdominal pain, blood in stool and anal bleeding. Genitourinary: Negative for dysuria, urgency, frequency, hematuria, flank pain, vaginal bleeding, vaginal discharge and difficulty urinating. Musculoskeletal: Negative for myalgias, joint swelling, arthralgias, gait problem, neck pain and neck stiffness. Skin: Negative for color change, pallor and rash. Neurological: Negative for dizziness, syncope, weakness, light-headedness, numbness and headaches. Hematological: Does not bruise/bleed easily. Psychiatric/Behavioral: Negative for confusion. Blood pressure 135/87, pulse 86, temperature 98 ??F (36.7 ??C), temperature source Oral, resp. rate18, height 5' 5 (1.651 m), weight 186 lb (84.369 kg), last menstrual period 05/22/2015, SpO2 100 [...] motion. Neck supple. No JVD present. No subcutaneous emphysema. Cardiovascular: Normal rate, regular rhythm and normal heart sounds. Exam reveals no gallop and no friction rub. No murmur heard. Pulmonary/Chest: Effort normal and breath sounds normal. No stridor. No respiratory distress. She has no wheezes. She has no rales. She exhibits no tenderness. Abdominal: Soft. Bowel sounds are normal. She exhibits no distension and no mass. There is no tenderness. There is no rebound and no guarding. Musculoskeletal: Normal range of motion. She exhibits tenderness. She exhibits no edema. Tenderness to the bilateral cervical paraspinal musculature and bilateral trapezius muscles. No actual midline C-spine tenderness. Lymphadenopathy: She has no cervical adenopathy. Neurological: She is alert and oriented to person, place, and time. She has normal strength. She displays no atrophy and no tremor. No cranial nerve deficit or sensory deficit. She exhibits normal muscle tone. She displays no seizure activity. Coordination and gait normal. Reflex Scores: Tricep reflexes are 2+ on the right side and 2+ on the left side. Bicep reflexes are 2+ on the right side and 2+ on the left side. Brachioradialis reflexes are 2+ on the right side and 2+ on the left side. Skin: Skin is warm and dry. No rash noted. She is not diaphoretic. No erythema. No pallor. Psychiatric: She has a normal mood and affect. Her behavior is normal. Judgment and thought contentnormal. Nursing note and vitals reviewed. Procedures Radiology/EKG/Labs: Results for orders placed or performed during the hospital encounter of 06/11/15 XR CHEST PA AND LATERAL Narrative 06/11/2015 2 view chest: HISTORY: Productive cough. Rule out pneumonia. Prior 11/22/2010 study. Stable heart/mediastinal structures. The lungs are clear. No focal pleural effusion. Impression IMPRESSION: No acute intrathoracic process. ED Course: Appropriate laboratory and radiology studies reviewed. Patient was seen and examined by me. The patient was discussed with the attending physician, Dr. Ibarra. Diagnostic tests and exam findings werediscussed and reviewed with the attending physician. Chest x-ray ordered. Chest imaging clear. No indication for imaging of the cervical spine. No evidence of pneumonia. Given the duration of symptoms, she is started on azithromycin. Symptoms are mostly consistent with acute bronchitis. She is prescribed a short burst of prednisone and an albuterol inhaler. Should her wheezing returned. She is prescribed Flexeril for her neck discomfort. Neck discomfort seems to be musculoskeletal in origin. There is no evidence of meningitis, carotid artery dissection, Lemierre's syndrome, or other emergent process. Patient is instructed to followup with primary care. The patient remained stable in the department. Vital signs remained within normal limits. All questions were answered and the patient agrees with the treatment plan. Criteria for returning to the Emergency Department was discussed and the patient verbalized an understanding. The patient is being discharged in stable condition. ED Clinical Impression: Bronchitis (primary encounter diagnosis) Cervical strain, acute, initial encounter Critical Care time Condition at Discharge/Transfer from Department: Stable This chart was completed using voice recognition technology and may contain unintended errors Aram Valverde PA-C 06/12/15 0018 Cosigned by Bud Ibarra MD at 06/12/2015 11:57 PM EST Associated attestation - Bud Ibarra MD - 06/12/2015 11:57 PM EST This chart was completed using voice recognition technology and may contain unintended errors documented in this encounter Plan of Treatment Upcoming Encounters Date Type Department Care Team (Late st Contact Info) Description 04/24/2024 10:45 AM EST Clinical Support [facility] [address] [place] [id number] documented as of this encounter Procedures Procedure Name Priority Date/Time Associated Diagnosis Comments XR CHEST PA AND LATERAL JACK 06/11/2015 1:16 PM EST documented in this encounter Results * XR CHEST PA AND LATERAL (06/11/2015 1:16 PM EST) Anatomical Region Laterality Modality Chest Radiographic Kristi ging 06/11/2015 1:16 PM EST Impressions 06/11/2015 1:32 PM EST IMPRESSION: No acute intrathoracic process. Narrative 06/11/2015 1:32 PM EST 06/11/2015 2 view chest: HISTORY: Productive cough. Rule out pneumonia. Prior 11/22/2010 study. Stable heart/mediastinal structures. The lungs are clear. No focal pleural effusion. Procedure Note Michael Garcia, DO - 06/11/2015 06/11/2015 2 view chest: HISTORY: Productive cough. Rule out pneumonia. Prior 11/22/2010 study. Stable heart/mediastinal structures. The lungs are clear. No focalpleural effusion. IMPRESSION: No acute intrathoracic process. us Bud Ibarra MD IMG DIAGNOSTIC IMAGING ORDERAB LES Final Result documented in this encounter Visit Diagnoses Diagnosis Bronchitis- Primary Bronchitis, not specified as acute or chronic Cervical strain, acute, initial encounter documented in this encounter Care Teams Spinning Bath Patroller Relationship Specialty Start Date End Date Thea Rubio MD PCP - General Family Medicine 09/13/14 07/16/22 documented as of this encounter
--- OUTSIDE RECORDS SUMMARY | 2024-03-14 18:23 | XMS_ITS | Encounter Summary ---
Author Organization [place] [address] Care Team Providers Care Manufacturing Maintenance Mechanic Name Role Phone Yuliet Norman MD Primary Care Provider Encounter Details Date Type Department Care Team (Late st Contact Info) Description 07/11/2012 12:43 PM EDT - 07/11/2012 11:59 PM EDT Hospital Encounter [facility] [address] [place] [address] [place] [address] [place], [place] [id number] Thyroid mass Discharge Disposition: Home or Self Care Social [...] Notes * Miscellaneous - Unknown, Unknown - 07/11/2012 12:52 PM EDT * Miscellaneous - Unknown, Unknown - 07/11/2012 12:50 PM EDT documented in this encounter Plan of Treatment Upcoming Encounters Date Type Department Care Team (Late st Contact Info) Description 04/24/2024 10:45 AM EST Clinical Support [facility] [address] [place] [phone] documented as of this encounter Procedures Procedure Name Priority Date/Time Associated Diagnosis Comments US THYROID Routine 07/11/2012 1:15 PM EDT Thyroid mass documented in this encounter Results * US THYROID (07/11/2012 1:15 PM EDT) Anatomical Region Laterality Modality Neck Ultrasound 07/11/2012 Impressions 07/11/2012 3:43 PM EDT IMPRESSION: There are 2 mass lesions present on the left one measuring 2.4 x 1.5 x 1.8 cm and one measuring 1.1 x 0.7 x 1.2 cm. Both of these are indeterminate and ultrasound-guided thyroid biopsy for both of these lesions is recommended. Narrative 07/11/2012 3:43 PM EDT Ultrasound of the thyroid 07/11/2012 Compare: CT of the cervical spine that showed a hypodense mass in the left lobe of the thyroid from June 13, 2012 FINDINGS: High-resolution sonography is performed. The right lobe measures 5.6 x 1.2 x 1.7 cm and contains a tiny 3 mm hypoechoic nodule of no clinical significance The left lobe measures 5.1 x 1.3 x 1.9 cm. Two masses are seen on the left. The dominant mass that likely represents the lesion seen on CT is a complex cystic mass which is heterogeneous and measures 2.4 x 1.5 x 1.8 cm A second subtle hypoechoic 1.1 x 0.7x1.2 cm nodule slightly lower in the midpole is noted on the left. The isthmus is normal and measures 2 mm in thickness. There are no extrathyroidal mass lesions. Procedure Note Abdifatah Flores MD - 07/11/2012 Ultrasound of the thyroid 07/11/2012 Compare: CT of the cervical spine that showed a hypodense mass in the leftlobe of the thyroid from June 13, 2012 FINDINGS: High-resolution sonography is performed. The right lobe measures 5.6 x 1.2x 1.7 cm and contains a tiny 3 mm hypoechoic nodule of no clinical significance The left lobe measures 5.1 x 1.3 x 1.9 cm. Two masses are seen on theleft. The dominant mass that likely represents the lesion seen on CT is a complex cystic masswhich is heterogeneous and measures 2.4 x 1.5 x 1.8 cm A second subtle hypoechoic 1.1 x 0.7x1.2 cm nodule slightly lower in themidpole is noted on the left. The isthmus is normal and measures 2 mm in thickness. There are noextrathyroidal mass lesions. IMPRESSION: There are 2 mass lesions present on the left one measuring 2.4 x 1.5 x 1.8cm and one measuring 1.1 x 0.7 x 1.2 cm. Both of these are indeterminate and ultrasound-guidedthyroid biopsy for both of these lesions is recommended. us Yuliet Norman MD IMG US ORDERABLES Final Result documented in this encounter Visit Diagnoses Diagnosis Thyroid mass Unspecified disorder of thyroid documented in this encounter Care Teams Manufacturing Maintenance Mechanic Relationship Specialty Start Date End Date Yuliet Norman MD PCP - General 11/22/10 09/12/14 documented as of this encounter
--- OUTSIDE RECORDS SUMMARY | 2024-03-14 18:23 | XMS_ITS | Encounter Summary ---
Author Organization [facility] [place] [address] Care Team Providers Care Shrimp Pond Laborer Name Role Phone Thea Rubio MD Primary Care Provider +1- [phone] Reason for Visit * Reason Onset Date Comments Other 08/28/2015 Encounter Details Date Type Department Care Team (Late st Contact Info) Description 08/28/2015 Telephone [facility] [address] [place] [address] Thea Rubio MD [address] [place] [phone] Other Social History Tobacco Use Types Packs/Day [...] Telephone Encounter - Susan Oliveira RMA - 08/29/2015 4:10 PM EDT Pt aware of appt * Telephone Encounter - Thea Rubio MD - 08/28/2015 5:27 PM EDT Help, ? In next few wks * Telephone Encounter - Antonietta Richards - 08/28/2015 4:41 PM EDT The patient is having trouble with her periods and she needs to see you about this . They are out of wack. Can You fit her in some day after 3:30? documented in this encounter Plan of Treatment Upcoming Encounters Date Type Department Care Team (Late st Contact Info) Description 04/24/2024 10:45 AM EST Clinical Support [facility] [address] [place] [address] documented as of this encounter Visit Diagnoses Not on filedocumented in this encounter Care Teams Shrimp Pond Laborer Relationship Specialty Start Date End Date Thea Rubio MD PCP - General Family Medicine 09/13/14 07/16/22 documented as of this encounter
--- OUTSIDE RECORDS SUMMARY | 2024-03-14 18:23 | XMS_ITS | Encounter Summary ---
Author Organization [place] [address] Care Team Providers Care Velvet Cutter Name Role Phone Thea Rubio MD Primary Care Provider +1- [phone] Reason for Visit * Reason Onset Date Comments Other 08/28/2015 Encounter Details Date Type Department Care Team (Late Contact Info) Description 08/28/2015 Telephone [facility] [address] [place] [address] Thea Rubio MD [address] [place] [phone] Other Social History Tobacco Use Types Packs/Day [...] Telephone Encounter - Antonietta Richards - 08/28/2015 4:40 PM EDT error documented in this encounter Plan of Treatment Upcoming Encounters Date Type Department Care Team (Late Contact Info) Description 04/24/2024 10:45 AM EST Clinical Support [facility] [address] [facility] [place] [address] documented as of this encounter Visit Diagnoses Not on filedocumented in this encounter Care Teams Velvet Cutter Relationship Specialty Start Date End Date Thea Rubio MD PCP - General Family Medicine 09/13/14 07/16/22 documented as of this encounter
--- OUTSIDE RECORDS SUMMARY | 2024-03-14 18:23 | XMS_ITS | Encounter Summary ---
Author Organization [place] [address] Care Team Providers Care Airport Operations Coordinator Name Role Phone Thea Rubio MD Primary Care Provider [phone]- [phone] Reason for Visit * Reason Comments Follow-up on migraines Encounter Details Date Type Department Care Team (Late st Contact Info) Description 03/17/2015 4:15 PM EST [facility] [address] [place] [address] Thea Rubio MD [address] [place] [address] Migraine without aura and without status migrainosus, not intractable (Primary Dx) Social History Tobacco Use Types [...] Sign Reading Time Taken Comments Blood Pressure 116/74 03/17/2015 4:25 PM EST Pulse 80 03/17/2015 4:25 PM EST Temperature 37 ??C (98.6 ??F) 03/17/2015 4:25 PM EST Respiratory Rate - - Oxygen Saturation - - Inhaled Oxygen Concentration - - Weight 85.6 kg (188 lb 12.8 oz) 03/17/2015 4:25 PM EST Height 166.4 cm (5' 5.5 ) 03/17/2015 4:25 PM EST Body Mass Index 30.94 03/17/2015 4:25 PM EST documented in this encounter Ordered Prescriptions Prescription Sig Dispense Quantity Refills Last Filled Start Date End Date topiramate (TOPAMAX) 50 mg Oral TabletIndications: Migraine without aura and without status migrainosus, not intractable Take 1 Tab by mouth 2 times daily. May add extra pill at night when having migraine flares. 270 Tab 1 03/17/2015 6 documented in this encounter Progress Notes * Thea Rubio MD - 03/17/2015 4:43 PM EST Subjective: Patient ID: Gardenia Childress is a 35 y.o. female. Chief Complaint Patient presents with ??? Follow-up on migraines HPI: Patients past medical, family and social histories were reviewed and updated. There were no changesexcept as noted. Has been having migraines about monthly with menses until last 3 days, has had about 4 ORTEGA. No increase stress but is one yr anniversary of father in law's Feb 10. Nothing else is different in last few days. Not excessively sleepy due to Topamax. ORTEGA are her typical ORTEGA. ORTEGA begin in back of neck as a tight sensation. 4 days ago, pt did get sharp pains in L upper arm, radiating down L arm at times. Sx on and off for2 days. Outpatient Prescriptions Marked as Taking for the 03/17/15 encounter (Office Visit) with Thea Rubio MD Medication Sig Dispense Refill ??? topiramate (TOPAMAX) 50 mg Oral Tablet Take 1 Tab by mouth 2 times daily. May add extra pill atnight when having migraine flares. 270 Tab 1 ??? [DISCONTINUED] topiramate (TOPAMAX) 50 mg Oral Tablet Take 1 Tab by mouth 2 times daily. 180 Tab 1 ??? SUMAtriptan (IMITREX) 25 mg tablet Take by mouth as needed for Migraine. Review of Systems Neurological: Positive for headaches. All other systems reviewed and are negative. Objective: Filed Vitals: 03/17/15 1625 BP: 116/74 Pulse: 80 Temp: 98.6 ??F (37 ??C) TempSrc: Oral Height: 5' 5.5 (1.664 m) Weight: 188 lb 12.8 oz (85.639 kg) Body mass index is 30.93 kg/(m^2). Physical Exam Constitutional: She appears well-developed and well-nourished. No distress. HENT: Right Ear: Tympanic membrane and ear canal normal. Left Ear: Tympanic membrane and ear canal normal. Mouth/Throat: Oropharynx is clear and moist. No posterior oropharyngeal edema or posterior oropharyngeal erythema. Neck: Normal range of motion. Neck supple. No tracheal deviation present. No thyromegaly present. Cardiovascular: Normal rate, regular rhythm and normal heart sounds. Exam reveals no gallop and no friction rub. No murmur heard. Pulmonary/Chest: Effort normal and breath sounds normal. Lymphadenopathy: She has no cervical adenopathy. Nursing note and vitals reviewed. Assessment and Plan: Gardenia was seen today for follow-up. Diagnoses and all orders for this visit: Migraine without aura and without status migrainosus, not intractable-recent flare? Etiology. Will allow patient to take extra Topamax with flares, and con't for about a week until after the flare stops. Orders: - topiramate (TOPAMAX) 50 mg Oral Tablet; Take 1 Tab by mouth 2 times daily. May add extra pill at night when having migraine flares. Return in about 6 months (around 09/15/2015), or if symptoms worsen or fail to improve. documented in this encounter Miscellaneous Notes * Patient Instructions - Thea Rubio MD - 03/17/2015 4:50 PM EST Images from the original note were not included. Migraine Headache A migraine headache is an intense, throbbing pain on one or both sides of your head. A migraine canlast for 30 minutes to several hours. CAUSES The exact cause of a migraine headache is not always known. However, a migraine may be caused when nerves in the brain become irritated and release chemicals that cause inflammation. This causes pain. Certain things may also trigger migraines, such as: ?? Alcohol. ?? Smoking. ?? Stress. ?? Menstruation. ?? Aged cheeses. ?? Foods or drinks that contain nitrates, glutamate, aspartame, or tyramine. ?? Lack of sleep. ?? Chocolate. ?? Caffeine. ?? Hunger. ?? Physical exertion. ?? Fatigue. ?? Medicines used to treat chest pain (nitroglycerine), control pills, estrogen, and some blood pressure medicines. SIGNS AND SYMPTOMS ?? Pain on one or both sides of your head. ?? Pulsating or throbbing pain. ?? Severe pain that prevents daily activities. ?? Pain that is aggravated by any physical activity. ?? Nausea, vomiting, or both. ?? Dizziness. ?? Pain with exposure to bright lights, loud noises, or activity. ?? General sensitivity to bright lights, loud noises, or smells. Before you get a migraine, you may get warning signs that a migraine is coming (aura). An aura may include: ?? Seeing flashing lights. ?? Seeing bright spots, halos, or zig-zag lines. ?? Having tunnel vision or blurred vision. ?? Having feelings of numbness or tingling. ?? Having trouble talking. ?? Having muscle weakness. DIAGNOSIS A migraine headache is often diagnosed based on: ?? Symptoms. ?? Physical exam. ?? A CT scan or MRI of your head. These imaging tests cannot diagnose migraines, but they can help rule out other causes of headaches. TREATMENT Medicines may be given for pain and nausea. Medicines can also be given to help prevent recurrent migraines. HOME CARE INSTRUCTIONS ?? Only take [id number] or prescription medicines for pain or discomfort as directed by your health care provider. The use of long-term narcotics is not recommended. ?? Lie down in a dark, quiet room when you have a migraine. ?? Keep a journal to find out what may trigger your migraine headaches. For example, write down: ?? What you eat and drink. ?? How much sleep you get. ?? Any change to your diet or medicines. ?? Limit alcohol consumption. ?? Quit smoking if you smoke. ?? Get 7-9 hours of sleep, or as recommended by your health care provider. ?? Limit stress. ?? Keep lights dim if bright lights bother you and make your migraines worse. SEEK IMMEDIATE MEDICAL CARE IF: ?? Your migraine becomes severe. ?? You have a fever. ?? You have a stiff neck. ?? You have vision loss. ?? You have muscular weakness or loss of muscle control. ?? You start losing your balance or have trouble walking. ?? You feel faint or pass out. ?? You have severe symptoms that are different from your first symptoms. MAKE SURE YOU: ?? Understand these instructions. ?? Will watch your condition. ?? Will get help right away if you are not doing well or get worse. Document Released: 04/07/2006 Document Revised: 01/26/2014 Document Reviewed: 12/13/2013 ExitCare?? Patient Information ??2015 [employer]. This information is not intended to replace advice given to you by your health care provider. Make sure you discuss any questions you have with your health care provider. documented in this encounter Plan of Treatment Upcoming Encounters Date Type Department Care Team (Late st Contact Info) Description 04/24/2024 10:45 AM EST Clinical Support [facility] [address] [place] [address] documented as of this encounter Visit Diagnoses Diagnosis Migraine without aura and without status migrainosus, not intractable- Primary Migraine without aura, without mention of intractable migraine without mention of status migrainosus documented in this encounter Discontinued Medications Medication Sig Discontinue Reason Start Date End Da te topiramate (TOPAMAX) 50 mg Oral TabletIndications:Migrain e without aura and without status migrainosus, not intractable Take 1 Tab by mouth 2 times daily. Reorder 09/13/2014 03/17/2015 documented as of this encounter Care Teams Airport Operations Coordinator Relationship Specialty Start Date End Date Thea Rubio MD PCP - General Family Medicine 09/13/14 07/16/22 documented as of this encounter
--- OUTSIDE RECORDS SUMMARY | 2024-03-14 18:23 | XMS_ITS | Encounter Summary ---
Author Organization [place] [address] Care Team Providers Care Communications Engineering Technician Name Role Phone Thea Rubio MD Primary Care Provider [phone]- [phone] Encounter Details Date Type Department Care Team (Late Contact Info) Description 06/12/2015 [facility] [address] [place] [address] Thea Rubio MD [address] [place], [place] [id number] Social History Tobacco Use Types Packs/Day Years [...] Clinical Support [facility] [address] [place] [address] documented as of this encounter Visit Diagnoses Not on filedocumented in this encounter Care Teams Communications Engineering Technician Relationship Specialty Start Date End Date Thea Rubio MD PCP - General Family Medicine 09/13/14 07/16/22 documented as of this encounter
--- OUTSIDE RECORDS SUMMARY | 2024-03-14 18:23 | XMS_ITS | Encounter Summary ---
Author Organization [place] [address] Care Team Providers Care Software Development Intern Name Role Phone Thea Rubio MD Primary Care Provider [phone]- [phone] Reason for Visit * Reason Comments Hospital Follow Up Encounter Details Date Type Department Care Team (Late st Contact Info) Description 06/14/2015 2:30 PM EST Office Visit [facility] [address] [place] [address] Thea Rubio MD [address] [facility] [place], [place] [id number] Acute bronchitis, unspecified organism (Primary Dx) Social History Tobacco Use Types [...] Sign Reading Time Taken Comments Blood Pressure 124/86 06/14/2015 2:39 PM EST Pulse 80 06/14/2015 2:39 PM EST Temperature 36.7 ??C (98.1 ??F) 06/14/2015 2:39 PM ES T Respiratory Rate - - Oxygen Saturation - - Inhaled Oxygen Concentration - - Weight 86.2 kg (190 lb) 06/14/2015 2:39 PM EST Height 165.1 cm (5' 5 ) 06/14/2015 2:39 PM EST Body Mass Index 31.62 06/14/2015 2:39 PM EST documented in this encounter Ordered Prescriptions Prescription Sig Dispense Quantity Refills Last Filled Start Date End Date codeine-guaiFENesi n (ROBITUSSIN AC) 10-100 mg/5 mL Oral LiquidIndications: Acute bronchitis, unspecified organism Take 5-10 mL by mouth every 6 hours as needed for Cough. 180 mL 0 06/14/2015 06/23/2015 documented in this encounter Progress Notes * Thea Rubio MD - 06/14/2015 3:18 PM EST Subjective: Patient ID: Gardenia Childress is a 35 y.o. female. Chief Complaint Patient presents with ??? Hospital Follow Up HPI: Patients past medical, family and social histories were reviewed and updated. There were no changesexcept as noted. Onset sx about 3 wks ago. Began with cough and rhin, no fever, no chills. Still rhin, sinus drainage. Mucus is clear to green. Bad cough, is beginning to cough, mostly white foamy stuff. Was first seen 06-11-15 in ER for sx after pt got tired coughing and she strained mm across upper back. Was treated with Zpak, prednisone, albuterol inhaler, and Flexeril. No contacts have same cough. Works at [employer]. No travel. No itching of eyes or nose. Outpatient Prescriptions Marked as Taking for the 06/14/15 encounter (Office Visit) with Thea Rubio MD Medication Sig Dispense Refill ??? albuterol (PROVENTIL HFA;VENTOLIN HFA) 90 mcg/actuation Inhl HFA Aerosol Inhaler Inhale 1-2 Puffs into the lungs every 6 hours as needed for Wheezing. 1 Inhaler 0 ??? azithromycin (ZITHROMAX) 250 mg Oral Tablet Day 1 - take 2 tablets Day 2 - take 1 tablet Day 3 - take 1 tablet Day 4 - take 1 tablet Day 5 - take 1 tablet 6 Tab 0 ??? cyclobenzaprine (FLEXERIL) 10 mg Oral Tablet Take 1 Tab by mouth 3 times daily as needed for Muscle spasms for up to 10 doses. 10 Tab 0 ??? dicyclomine (BENTYL) 10 mg Oral Capsule Take 10 mg by mouth 4 times daily as needed (for crampsafter menses). ??? predniSONE (DELTASONE) 20 mg Oral Tablet Take 2 Tabs by mouth daily for 5 days. 10 Tab 0 ??? SUMAtriptan (IMITREX) 25 mg tablet Take by mouth as needed for Migraine. ??? topiramate (TOPAMAX) 50 mg Oral Tablet Take 1 Tab by mouth 2 times daily. May add extra pill atnight when having migraine flares. 270 Tab 1 Review of Systems HENT: Positive for rhinorrhea. Respiratory: Positive for cough. Gastrointestinal: Negative for vomiting and diarrhea. All other systems reviewed and are negative. Objective: Filed Vitals: 06/14/15 1439 BP: 124/86 Pulse: 80 Temp: 98.1 ??F (36.7 ??C) TempSrc: Oral Height: 5' 5 (1.651 m) Weight: 190 lb (86.183 kg) Body mass index is 31.62 kg/(m^2). Physical Exam Constitutional: She appears well-developed [...] cervical adenopathy. Nursing note and vitals reviewed. Deep dry resonating cough. Results for orders placed during the hospital encounter of 06/11/15 XR CHEST PA AND LATERAL Narrative 06/11/2015 2 view chest: HISTORY: Productive cough. Rule out pneumonia. Prior 11/22/2010 study. Stable heart/mediastinal structures. The lungs are clear. No focal pleural effusion. Impression IMPRESSION: No acute intrathoracic process. Assessment and Plan: Gardenia was seen today for hospital follow up. Diagnoses and all orders for this visit: Acute bronchitis, unspecified organism-?? Viral. Finish meds from ER. Add prn cough med. Expect resolution in next 3 wks or so. Orders: - codeine-guaiFENesin (ROBITUSSIN AC) 10-100 mg/5 mL Oral Liquid; Take 5-10 mL by mouth every 6 hours as needed for Cough. Return if symptoms worsen or fail to improve. documented in this encounter Miscellaneous Notes * Patient Instructions - Thea Rubio MD - 06/14/2015 3:28 PM EST Images from the original note were not included. Acute Bronchitis Bronchitis is inflammation of the airways that extend from the windpipe into the lungs (bronchi). The inflammation often causes mucus to develop. This leads to a cough, which is the most common symptom of bronchitis. In acute bronchitis, the condition usually develops suddenly and goes away over time, usually in a couple weeks. Smoking, allergies, and asthma can make bronchitis worse. Repeated episodes of bronchitis may cause further lung problems. CAUSES Acute bronchitis is most often caused by the same virus that causes a cold. The virus can spread from person to person (contagious). SIGNS AND SYMPTOMS ?? Cough. ? Fever. ? Coughing up mucus. ? Body aches. ? Chest congestion. ? Chills. ? Shortness of breath. ? Sore throat. ?? DIAGNOSIS Acute bronchitis is usually diagnosed through a physical exam. Tests, such as chest X-rays, are sometimes done to rule out other conditions. TREATMENT Acute bronchitis usually goes away in a couple weeks. Often times, no medical treatment is necessary. Medicines are sometimes given for relief of fever or cough. Antibiotics are usually not needed but may be prescribed in certain situations. In some cases, an inhaler may be recommended to help reduce shortness of breath and control the cough. A cool mist vaporizer may also be used to help thin bronchial secretions and make it easier to clear the chest. HOME CARE INSTRUCTIONS ?? Get plenty of rest. ? Drink enough fluids to keep your urine clear or pale yellow (unless you have a medical conditionthat requires fluid restriction). Increasing fluids may help thin your secretions and will prevent dehydration. ? Only take btea-qab-zhusuul or prescription medicines as directed by your health care provider. ? Avoid smoking and secondhand smoke. Exposure to cigarette smoke or irritating chemicals will make bronchitis worse. If you are a smoker, consider using nicotine gum or skin patches to help controlwithdrawal symptoms. Quitting smoking will help your lungs heal faster. ? Reduce the chances of another bout of acute bronchitis by washing your hands frequently, avoiding people with cold symptoms, and trying not to touch your hands to your mouth, nose, or eyes. ? Follow up with your health care provider as directed. ?? SEEK MEDICAL CARE IF: Your symptoms do not improve after 1 week of treatment. SEEK IMMEDIATE MEDICAL CARE IF: ?? You develop an increased fever or chills. ? You have chest pain. ? You have severe shortness of breath. ?? You have bloody sputum. ? You develop dehydration. ?? You develop fainting. ?? You develop repeated vomiting. ?? You develop a severe headache. MAKE SURE YOU: ?? Understand these instructions. ?? Will watch your condition. ?? Will get help right away if you are not doing well or get worse. Document Released: 05/15/2005 Document Revised: 12/08/2013 Document Reviewed: 09/28/2013 ExitCare?? Patient Information ??2015 [employer]. This information is not intended to replace advice given to you by your health care provider. Make sure you discuss any questions you have with your health care provider. documented in this encounter Plan of Treatment Upcoming Encounters Date Type Department Care Team (Late st Contact Info) Description 04/24/2024 10:45 AM EST Clinical Support [address] [address] documented as of this encounter Visit Diagnoses Diagnosis Acute bronchitis, unspecified organism- Primary documented in this encounter Care Teams Software Development Intern Relationship Specialty Start Date End Date Thea Rubio MD PCP - General Family Medicine 09/13/14 07/16/22 documented as of this encounter
--- OUTSIDE RECORDS SUMMARY | 2024-03-14 18:23 | XMS_ITS | Encounter Summary ---
Author Organization [place] [address] Care Team Providers Care Spareribs Trimmer Name Role Phone Yuliet Norman MD Primary Care Provider [phone] Reason for Visit * Reason Comments Cough Pt. amb to triage c/ o cough, fever, congestion and runny nose for the past few days. CPTA: Nyquill/Dayquill Encounter Details Date Type Department Care Team (Late st Contact Info) Description 04/17/2014 6:17 PM EST - 04/17/2014 6:50 PM EST [facility] [place] [address] Ulysses Quiros MD Viral syndrome (Primary Dx); Unspecified viral infection, in conditions classified elsewhere and of unspecified site Discharge Disposition: Home or Self Care Social [...] Sign Reading Time Taken Comments Blood Pressure 121/80 04/17/2014 5:46 PM EST Pulse 96 04/17/2014 5:46 PM EST Temperature 37 ??C (98.6 ??F) 04/17/2014 5:46 PM EST Respiratory Rate 18 04/17/2014 5:46 PM EST Oxygen Saturation 97% 04/17/2014 5:46 PM EST Inhaled Oxygen Concentration - - Weight 81.2 kg (179 lb) 04/17/2014 5:46 PM EST Height 165.1 cm (5' 5 ) 04/17/2014 5:46 PM EST Body Mass Index 29.79 04/17/2014 5:46 PM EST documented in this encounter Discharge Instructions * Discharge Instructions* Pancho Johnson APRN - 04/17/2014 6:24 PM EST Push fluids. Tylenol or Motrin for any pain or fever. If any prescriptions had been prescribed, take as directed. Follow up with your family doctor for a recheck. If you do not have a doctor, you can call [phone] for a family doctor. Return here for worsening of symptoms. * Attachments The following attachments cannot be sent through Care Everywhere. * VIRAL SYNDROME (ARABIC) documented in this encounter Discharge Disposition Disposition Code Departure Means Destination Home or Self [facility] documented in this encounter ED Notes * Pancho Johnson APRN - 04/17/2014 6:24 PM EST CHIEF COMPLAINT Chief Complaint Patient presents with ??? Cough Pt. amb to triage c/o cough, fever, congestion and runny nose for the past few days. CPTA: Nyquill/Dayquill HPI Gardenia Childress is a 34 y.o. female who presents to the Emergency Room The complaint of URI symptoms since Friday. Patient has had some chest congestion with a runny nose. Mild headache. Denies earache. Patient has had a mild cough. States she has been using DayQuil and NyQuil with no relief. Nonsmoker. States her daughter has a virus as well. Denies chest pain or shortness of breath. Patient has no other associated symptoms. REVIEW OF SYSTEMS See HPI for further details. Review of systems otherwise negative. PAST MEDICAL HISTORY Past Medical History Diagnosis Date ??? 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 Biliary atresia ??? Migraines FAMILY HISTORY No family history on file. SOCIAL HISTORY History Social History ??? Marital Status: Spouse Name: N/A Number of Children: N/A ??? Years of Education: N/A Social History Main Topics ??? Smoking status: Former Smoker ??? Smokeless tobacco: Never Used ??? Alcohol Use: No ??? Drug Use: No ??? Sexual Activity: None Other Topics Concern ??? None Social History Narrative SURGICAL HISTORY Past Surgical History Procedure Laterality Date ??? Abdomen surgery for bile duct ??? Appendectomy ??? Cholecystectomy CURRENT MEDICATIONS Current Outpatient Rx Name Route Sig Dispense Refill ??? topiramate (TOPAMAX) 25 mg tablet Oral Take by mouth 2 times daily. ??? SUMAtriptan (IMITREX) 25 mg tablet Oral Take by mouth as needed for Migraine. ALLERGIES Allergies Allergen Reactions ??? Aspirin ??? Morphine Nausea And Vomiting PHYSICAL EXAM VITAL SIGNS: ED Triage Vitals Temp 04/17/14 1746 98.6 ??F (37 ??C) Heart Rate 04/17/14 1746 96 Resp 04/17/14 1746 18 BP 04/17/14 1746 121/80 mmHg SpO2 04/17/14 1746 97 % Height 04/17/14 1746 5' 5 (1.651 m) Weight 04/17/14 1746 179 lb (81.194 kg) Constitutional: Well developed, Well nourished, No acute distress, Non-toxic appearance. HENT: Normocephalic, Atraumatic, Bilateral external ears normal, TM's intact, No erythema noted. Oropharynx moist, No oral exudates, Oropharynx Clear, uvula midline, airway patent, no drooling or stridor noted. Nose normal. Eyes: PERRLA, EOMI, Conjunctiva normal, No discharge. Neck: Normal range of motion, No tenderness, Supple, No stridor. Lymphatic: No anterior cervical adenopathy Cardiovascular: Normal heart rate, Normal rhythm, No murmurs, No rubs, No gallops. Thorax & Lungs: Clear to auscultation. No rhonchi or wheezes noted. No rales. Skin: Warm, Dry, No erythema, No rash. Extremities: Intact distal pulses, No edema, No tenderness. LABS/RADIOLOGY/PROCEDURES No results found for this visit on 04/17/14. COURSE & MEDICAL DECISION MAKING Pertinent Labs & Imaging studies reviewed. (See chart for details) Filed Vitals: 04/17/14 1746 BP: 121/80 Pulse: 96 Temp: 98.6 ??F (37 ??C) TempSrc: Oral Resp: 18 Height: 5' 5 (1.651 m) Weight: 179 lb (81.194 kg) SpO2: 97% Pt presents to the ED with the above complaints. Symptoms consistent with viral syndrome. Instructed push fluids. Tylenol or Motrin for any body aches, pain or fever. Followup with the primary doctoras needed. Return here for worsening of symptoms. I treated this patient independently. FINAL IMPRESSION 1. Viral syndrome Condition on discharge: Stable Electronically signed by: Pancho Johnson APRN, 04/17/2014 6:24 PM This chart was completed using voice recognition technology and may contain unintended errors Pancho Johnson APRN 04/17/14 1825 Cosigned by Ulysses Quiros MD at 04/17/2014 8:17 PM EST Associated attestation - Ulysses Quiros MD - 04/17/2014 8:17 PM EST This chart was completed using voice recognition technology and may contain unintended errors documented in this encounter Plan of Treatment Upcoming Encounters Date Type Department Care Team (Late st Contact Info) Description 04/24/2024 10:45 AM EST Clinical Support [facility] [address] [place] [address] documented as of this encounter Visit Diagnoses Diagnosis Viral syndrome- Primary Unspecified viral infection, in conditions classified elsewhere and of unspecified site Unspecified viral infection, in conditions classified elsewhere and of unspecified site documented in this encounter Care Teams Spareribs Trimmer Relationship Specialty Start Date End Date Yuliet Norman MD PCP - General 11/22/10 09/12/14 documented as of this encounter
--- OUTSIDE RECORDS SUMMARY | 2024-03-14 18:23 | XMS_ITS | Encounter Summary ---
Author Organization [place] [address] Care Team Providers Care Cook Cold Meat Name Role Phone Thea Rubio MD Primary Care Provider [phone] Reason for Visit * Reason Onset Date Comments Other 06/13/2015 Encounter Details Date Type Department Care Team (Late st Contact Info) Description 06/13/2015 Telephone [facility] [address] [place] [address] Thea Rubio MD [address] [place] [id number] Other Social History Tobacco Use Types Packs/Day [...] Miscellaneous Notes * Telephone Encounter - Heather Hood - 06/13/2015 10:14 AM EST LMOM reminder of OV for tomorrow. documented in this encounter Plan of Treatment Upcoming Encounters Date Type Department Care Team (Late st Contact Info) Description 04/24/2024 10:45 AM EST Clinical Support [facility] [address] [place] [address] documented as of this encounter Visit Diagnoses Not on filedocumented in this encounter Care Teams Cook Cold Meat Relationship Specialty Start Date End Date Thea Rubio MD PCP - General Family Medicine 09/13/14 07/16/22 documented as of this encounter
--- OUTSIDE RECORDS SUMMARY | 2024-03-14 18:23 | XMS_ITS | Encounter Summary ---
Author Organization [place] [address] Care Team Providers Care Adjunct Spanish Instructor Name Role Phone Yuliet Norman MD Primary Care Provider [phone] Reason for Visit * Reason Onset Date Comments Other 08/09/2014 appt. request Encounter Details Date Type Department Care Team (Late st Contact Info) Description 08/09/2014 Telephone [facility] [address] [place] [address] Thea Rubio MD [address] [place] [address] Other (appt. request) Social History Tobacco Use Types Packs/Day Years [...] Telephone Encounter - Susan Oliveira RMA - 08/09/2014 4:22 PM EDT Pt aware of appt on august * Telephone Encounter - Thea Rubio MD - 08/09/2014 3:53 PM EDT Okay, as long as she doesn't need to come in urgently * Telephone Encounter - OlivierDanika - 08/09/2014 3:52 PM EDT Last time patient saw you was in 2004. Would like to see you again as a new patient. Please advise. documented in this encounter Plan of Treatment Upcoming Encounters Date Type Department Care Team (Late st Contact Info) Description 04/24/2024 10:45 AM EST Clinical Support [facility] [address] [place] [address] documented as of this encounter Visit Diagnoses Not on filedocumented in this encounter Care Teams Adjunct Spanish Instructor Relationship Specialty Start Date End Date Yuliet Norman MD PCP - General 11/22/10 09/12/14 documented as of this encounter
--- OUTSIDE RECORDS SUMMARY | 2024-03-14 18:23 | XMS_ITS | Encounter Summary ---
Author Organization [place] [address] Care Team Providers Care Chief Steward/Stewardess Name Role Phone Thea Rubio MD Primary Care Provider [phone] Reason for Visit * Reason Onset Date Comments Visit Follow Up 07/03/2015 Encounter Details Date Type Department Care Team (Late Contact Info) Description 07/03/2015 Telephone [facility] [address] [place] [address] Thea Rubio MD [address] [place], [place] [phone] Visit Follow Up Social History Tobacco Use Types [...] * Telephone Encounter - Heather Hood - 07/03/2015 3:18 PM EDT LMOM After visit follow up call complete. documented in this encounter Plan of Treatment Upcoming Encounters Date Type Department Care Team (Late st Contact Info) Description 04/24/2024 10:45 AM EST Clinical Support [facility] [address] [place] [phone] documented as of this encounter Visit Diagnoses Not on filedocumented in this encounter Care Teams Chief Steward/Stewardess Relationship Specialty Start Date End Date Thea Rubio MD PCP - General Family Medicine 09/13/14 07/16/22 documented as of this encounter
--- OUTSIDE RECORDS SUMMARY | 2024-03-14 18:23 | XMS_ITS | Encounter Summary ---
Author [place] [address] Care Team Providers Care Agricultural Equipment Design Engineer Name Role Phone Yuliet Norman MD Primary Care Provider Encounter Details Date Type Department Care Team (Latest Contact Info) Description 03/12/2014 11:20 AM EST - 03/12/2014 11:59 PM EST Hospital Encounter [facility] [address] [place] [address] Routine gynecological examination (Primary Dx); Goiter, unspecified Discharge Disposition: Home or Self Care Social [...] Notes * Miscellaneous - Unknown, Unknown - 03/14/2014 6:19 AM EST documented in this encounter Plan of Treatment Upcoming Encounters Date Type Department Care Team (Late st Contact Info) Description 04/24/2024 10:45 AM EST Clinical Support [facility] [address] [place] [address] Scheduled Orders Name Type Priority Associated Diagnoses Orde r Schedule OP VENIPUNCTURE CHARGE Lab Timed Routine gynecological examination Goiter, unspecified One Time for 1 Occurrences starting 03/12/2014 until 03/12/2014 documented as of this encounter Procedures Procedure Name Priority Date/Time Associated Diagnosis Comments TSH REFLEX Routine 03/12/2014 11:34 AM EST Routine gynecological examination Goiter, unspecified DIFFERENTIAL Routine 03/12/2014 11:34 AM EST CBC WITH DIFF Routine 03/12/2014 11:34 AM EST Routine gynecological examination Goiter, unspecified COMPREHENSIVE METABOLIC PANEL Routine 03/12/2014 11:34 AM EST Routine gynecological examination Goiter, unspecified documented in this encounter Results * DIFFERENTIAL (03/12/2014 11:34 AM EST) Neut Percent 58.8 % [facility] Lymph Percent 29.2 % [facility] [place] Percent 7.2 % [facility] Eos Percent 3.9 % [facility] Baso Percent 0.9 % [facility] Neut# 4.7 1.8 - 7.7 x10(3)/mcL [facility] Lymph# 2.3 0.6 - 4.8 x10(3)/mcL [facility] [place]# 0.6 0.0 - 1.3 x10(3)/mcL [facility] Eos# 0.3 0.0 - 0.5 x10(3)/mcL [facility] Baso# 0.1 0.0 - 0.2 x10(3)/[facility] Blood specimen (specimen) 03/12/2014 11:34 AM EST 03/12/2014 11:34 AM EST us Yuliet Norman MD HEMATOLOGY ORDERABLES Final Res ult [facility] [address] [place] [address] * CBC WITH AUTO DIFF (03/12/2014 11:34 AM EST) WBC 8.0 4.0 - 11.0 x10(3)/mcL [facility] RBC 4.78 3.80 - 5.10 x10(6)/mcL [facility] Hgb 13.6 12.0 - 15.6 gm/dL [facility] Hct 40.9 35.7 - 45.9 % [facility] MCV 85.6 82.5 - 99.8 fL [facility] MCH 28.5 27.0 - 34.3 pg [facility] MCHC 33.4 32.1 - 35.3 gm/dL [facility] RDW 13.7 11.5 - 15.0 % [facility] Platelet 307 144 - 423 x10(3)/mcL [facility] MPV 7.9 6.8 - 10.8 fL [facility] Blood specimen (specimen) UPPER LIMB STRUCTURE / Unknown 03/12/2014 11:34 AM EST 03/12/2014 11:34 AM EST us Yuliet Norman MD HEMATOLOGY ORDERABLES Final Res ult Performing Organization Address [facility] Co de Phone Number [facility] [address] [place] [address] * TSH REFLEX (03/12/2014 11:34 AM EST) TSH Reflex 1.250 0.270 - 4.200 mcIU/mL [facility] Blood specimen (specimen) UPPER LIMB STRUCTURE / Unknown 03/12/2014 11:34 AM EST 03/12/2014 2:06 PM EST us Yuliet Norman MD CHEMISTRY ORDERABLES Final Resu lt Performing Organization Address [facility] Co de Phone Number [facility] [address] [place] [address] * COMPREHENSIVE METABOLIC PANEL (03/12/2014 11:34 AM EST) Sodium 139 136 - 145 mmol/L [facility] Potassium 4.1 3.5 - 5.0 mmol/L [facility] Chloride 103 98 - 107 mmol/L [facility] Total CO2 24 22 - 29 mmol/L [facility] Anion Gap 12 7 - 16 mmol/L [facility] Calcium 9.2 8.6 - 10.2 mg/dL [facility] Glucose Lvl 83 74 - 100 mg/dL [facility] BUN 8 6 - 20 mg/dL [facility] Creatinine 0.73 0.51 - 1.30 mg/dL [facility] Albumin 4.2 3.5 - 5.2 gm/dL [facility] Total Protein 7.8 6.4 - 8.3 gm/dL [facility] Bili Total 0.2 0.1 - 1.3 mg/dL [facility] AST 18 <=40 IU/L [facility] ALT 9 <=41 IU/L [facility] Alk Phos 69 35 - 104 IU/L [facility] GFR Afr Am >60 [facility] Comment: GFR is estimated using creatinine, age, gender, and race. ??GFR has been validated for patients between 18 and 70 years of age. GFR has not been validated for women, patients with serious comorbid conditions, or persons with extremes of body size, muscle mass, or nutritional status. ??For additional information: ??www.kidney.org. GFR Non Afr Am >60 [facility] Blood specimen (specimen) UPPER LIMB STRUCTURE / Unknown 03/12/2014 11:34 AM EST 03/12/2014 2:06 PM EST us Yuliet Norman MD CHEMISTRY ORDERABLES Edited Res ult - Final [facility] [address] [place] [address] documented in this encounter Visit Diagnoses Diagnosis Routine gynecological examination- Primary Goiter, unspecified documented in this encounter Care Teams Agricultural Equipment Design Engineer Relationship Specialty Start Date End Date Yuliet Norman MD PCP - General 11/22/10 09/12/14 documented as of this encounter
--- OUTSIDE RECORDS SUMMARY | 2024-03-14 18:23 | XMS_ITS | Encounter Summary ---
Author Organization [place] [address] Care Team Providers Care Supervisor [employer] Name Role Phone Yuliet Norman MD Primary Care Provider [phone] Reason for Visit * Reason Comments Headache X 1 day. + N/V. Yoan es vision problems. States feels like heart is racing sometimes. CPTA: Diclofenac at 0100. 4 Tylenol at 0100. Encounter Details Date Type Department Care Team (Late st Contact Info) Description 10/09/2012 2:56 AM EDT - 10/09/2012 4:22 AM EDT Emergency [facility] [address] [place] [address] Bud Ibarra MD [address] [place] [phone] Headache (Primary Dx) Discharge Disposition: Home or Self [...] Reading Time Taken Comments Blood Pressure 118/80 10/09/2012 4:21 AM EDT Pulse 78 10/09/2012 4:21 AM EDT Temperature 36.4 ??C (97.5 ??F) 10/09/2012 2:57 AM ED T Respiratory Rate 16 10/09/2012 4:21 AM EDT Oxygen Saturation 99% 10/09/2012 4:21 AM EDT Inhaled Oxygen Concentration - - Weight 81.2 kg (179 lb) 10/09/2012 2:57 AM EDT Height 165.1 cm (5' 5 ) 10/09/2012 2:57 AM EDT Body Mass Index 29.79 10/09/2012 2:57 AM EDT documented in this encounter Discharge Instructions * Discharge Instructions* Bud Ibarra MD - 10/09/2012 3:59 AM EDT Return for recurrent or worsening headache, changes in vision, or leg weakness or numbness, fever greater than 101, or any other concerns. documented in this encounter Discharge Disposition Disposition Code Departure Means Destination Home or Self Jail documented in this encounter ED Notes * Bud Ibarra MD - 10/09/2012 9:49 PM EDT Chief Complaint Patient presents with ??? Headache X 1 day. + N/V. Denies vision problems. States feels like heart is racing sometimes. CPTA: Diclofenac at 0100. 4 Tylenol at 0100. HPI Comments: The patient is a 32-year-old female who presents complaining of headache. Headache started yesterday gradually around 4 PM. It is located mainly in the right sabianism area and retro-orbital area on the right. She has a history of similar headaches many times in the past. She reports that the headache was fairly mild yesterday and then she went to sleep. She woke with some worsening ofthe headache around 1 AM. She rates it as an 8/10 in intensity and throbbing in quality. She has had 2 episodes of associated emesis. Review of the medical record shows prior ER visits for headache in the past. She had a normal head CT on May of this year. Patient denies any associated vision changes, slurred speech, arm or leg weakness or numbness. No neck stiffness. No rash or fever. No carbon monoxide exposure. 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 Patient states headache is very similar to prior headaches. The history is provided by the patient and medical records. Allergies Allergen Reactions ??? Aspirin Home Medications: [...] systems reviewed and are negative. Blood pressure 118/80, pulse 78, temperature 97.5 ??F (36.4 ??C), temperature source Oral, resp. rate 16, height 5' 5 (1.651 m), weight 179 lb (81.194 kg), last menstrual period 10/05/2012, SpO2 99.00%. Physical Exam Nursing note and vitals reviewed. Constitutional: She is oriented to person, place, and time. She appears well- developed and well-nourished. No distress. HENT: Head: Normocephalic and atraumatic. Eyes: Conjunctivae are normal. Pupils are equal, round, and reactive to light. Patient's right eye cannot look laterally. This is normal for her. Otherwise extraocular movements are intact. Neck: Normal range of motion. Neck supple. Cardiovascular: Regular rhythm and normal heart sounds. Exam reveals no gallop and no friction rub. No murmur heard. Pulmonary/Chest: Effort normal and breath sounds normal. Abdominal: Soft. She exhibits no distension. There is no tenderness. There is no rebound and no guarding. Musculoskeletal: Normal range of motion. She exhibits no edema. Neurological: She is alert and oriented to person, place, and time. No cranial nerve deficit. Coordination normal. Neurologic: Alert & oriented x 3, Normal motor function, Normal sensory function, No focal deficits noted. Normal Cranial Nerves. Skin: Skin is warm and dry. Psychiatric: She has a normal mood and affect. Procedures Radiology/EKG/Labs: None ED Course: Appropriate laboratory and radiology studies reviewed Patient declined IV medication and would prefer IM injection. Phenergan and Stadol administered. Patient observed for a brief amount of time. Headache was improving and patient appeared well. Discharged with no change in neurologic condition. Medical Decision Making: Patient's headache appears acute on chronic in nature. I certainly see nothing to suggest subarachnoid hemorrhage, meningitis, or any other emergent medical condition. I do not believe a head CT is indicated. The patient is discharged to followup with primary care. ED Clinical Impression: Headache (primary encounter diagnosis) Critical Care time Condition at Discharge/Transfer from Department: Improved Bud Ibarra MD 10/09/12 2153 documented in this encounter Plan of Treatment Upcoming Encounters Date Type Department Care Team (Late st Contact Info) Description 04/24/2024 10:45 AM EST Clinical Support [facility] [address] [place] [address] documented as of this encounter Visit Diagnoses Diagnosis Headache(784.0)- Primary Headache documented in this encounter Administered Medications Inactive Administered Medications - up to 1 most recent administrations Medication Order MAR Action Action Date Dose Rate Site butorphanol (STADOL) injection 1 mg 1 mg, Intramuscular, ONCE, 1 dose, On Fri10/09/12 at 0345 Given 10/09/2012 4:00 AM EDT 1 mg Left Upper Outer Quadrant promethazine (PHENERGAN) injection 25 mg 25 mg, Intramuscular, ONCE, 1 dose, On Fri10/09/12 at 0345, If administering promethazine IV, must dilute to 10 mL Bacteriostatic NaCl prior to administration. Administer through a running IV ONLY Given 10/09/2012 4:00 AM EDT 25 mg Left Upper Outer Quadrant documented in this encounter Discontinued Medications Medication Sig Discontinue Reason Start Date End Da te HYDROcodone-acetaminophe n (VICODIN) 5-500 mg per tablet Take 1 Tab by mouth every 6 hours as needed for Pain. 06/13/2012 10/09/2012 ibuprofen (ADVIL;MOTRIN) 800 mg Take 1 Tab by mouth every 8 hours as needed for 21 doses. 03/13/2011 10/09/2012 documented as of this encounter Historical Medications * This list may reflect changes made after this encounter. diclofenac (VOLTAREN) 75 mg EC tablet Take 75 mg by mouth 2 times daily as needed. 10/17/2013 added in this encounter Active and Recently Administered Medications Times are shown in EDT. Scheduled Medication Order 10/07/2012 10/08/2012 10/09/2012 butorphanol (STADOL) injection 1 mg (COMPLETED) 1 mg, Intramuscular, ONCE, 1 dose, On Fri10/09/12 at 0345 0400 (Given - Provid er: Sandy Mayberry RN) promethazine (PHENERGAN) injection 25 mg (COMPLETED) 25 mg, Intramuscular, ONCE, 1 dose, On Fri10/09/12 at 0345, If administering promethazine IV, must dilute to 10 mL Bacteriostatic NaCl prior to administration. Administer through a running IV ONLY 0400 (Given - Provid er: Sandy Mayberry RN) documented in this encounter Care Teams Supervisor [employer] Relationship Specialty Start Date End Date Yuliet Norman MD PCP - General 11/22/10 09/12/14 documented as of this encounter
--- OUTSIDE RECORDS SUMMARY | 2024-03-14 18:23 | XMS_ITS | Encounter Summary ---
Author Organization [place] [address] Care Team Providers Care Rib Cutter Name Role Phone Yuliet Norman MD Primary Care Provider Encounter Details Date Type Department Care Team (Late st Contact Info) Description 07/20/2012 1:04 PM EDT - 07/20/2012 11:59 PM EDT Hospital Encounter [facility] [address] [place] [address] [place] [address] [place] [address] Thyroid mass Discharge Disposition: Home or Self [...] documented in this encounter Progress Notes * Heather Garcai RDMS - 07/22/2012 10:29 AM EDT Called and left message on phone at 10 30 am on Friday07/22/2012. I told the patient to call back if she had any complications or further questions. Cris Garcia documented in this encounter Miscellaneous Notes * Miscellaneous - Unknown, Unknown - 07/30/2012 9:09 AM EDT documented in this encounter Plan of Treatment Upcoming Encounters Date Type Department Care Team (Late st Contact Info) Description 04/24/2024 10:45 AM EST Clinical Support [facility] [address] [place] [address] documented as of this encounter Procedures Procedure Name Priority Date/Time Associated Diagnosis Comments US GUIDED THYROID BIOPSY Routine 07/20/2012 2:18 PM EDT Thyroid mass NON-ASSOCIATE SOFTWARE DEVELOPER CYTOLOGY REPORT Routine 07/20/2012 1:56 PM EDT documented in this encounter Results * US GUIDED THYROID BIOPSY (07/20/2012 2:18 PM EDT) Anatomical Region Laterality Modality Neck Ultrasound 07/20/2012 Impressions 07/20/2012 3:12 PM EDT IMPRESSION: Successful biopsy of both upper and lower lobe left thyroid nodules using ultrasound guidance. Narrative 07/20/2012 3:12 PM EDT And guided biopsy of 2 left thyroid nodules date 07/20/2012 time 1306 HISTORY: Left thyroid nodules. FINDINGS: Informed consent was obtained the patient. The patient has two thyroid nodules. The is a more heterogeneous nodule in the left upper lobe which was biopsied first. Two core biopsies were performed. There is a more slightly hypoechoic nodule which is uniform in echogenicity in the lower lobe. A single core biopsy was performed this nodule. There were no complications. Ultrasound guidance was used as well as local anesthetic and sterile technique. The pathologist felt the maternal be diagnostic of the time. Procedure Note Felix Ortiz III, MD - 07/20/2012 And guided biopsy of 2 left thyroid nodules date 07/20/2012 time 1306 HISTORY: Left thyroid nodules. FINDINGS: Informed consent was obtained the patient. The patient has twothyroid nodules. The is a more heterogeneous nodule in the left upper lobe which was biopsiedfirst. Two core biopsies were performed. There is a more slightly hypoechoic nodule whichis uniform in echogenicity in the lower lobe. A single core biopsy was performed thisnodule. There were no complications. Ultrasound guidance was used as well as local anestheticand sterile technique. The pathologist felt the maternal be diagnostic of the time. IMPRESSION: Successful biopsy of both upper and lower lobe left thyroidnodules using ultrasound guidance. us Yuliet Norman MD [facility] US ORDERABLES Final Result * NON-ASSOCIATE SOFTWARE DEVELOPER CYTOLOGY REPORT (07/20/2012 1:56 PM EDT) Non-Clerical Supervisor Cytology Report ? PATIENT NAME:ISHAN CHILDRESS ? Non-Clerical Supervisor Cytology Report ? Accession Number ?Collected Date/Time ? Received Date/Time ? [id number] ? 07/20/12 13:56 EDT ?07/21/12 10:03 EDT ? Specimen Source ? 1) Fine Needle Aspiration, Thyroid (Left Upper Lobe Nodule) ? 2) Fine Needle Aspiration, Thyroid (Left Lower Lobe Nodule) ? Diagnosis ? Negative for Malignancy. ? Comment ? 1)FNA, Thyroid (Left Upper Lobe Nodule): ? Specimen Adequacy: ?? Satisfactory ? The specimen is composed of uniform, cytologically bland-appearing ? follicular epithelial cells with a predominantly macrofollicular ? arrangement with extracellular colloid, consistent with a benign nodule. ? COMMENT: ?? Clinical and radiographic correlation is recommended. ? 2)FNA, Thyroid (Left Lower Lobe Nodule): ? NON-DIAGNOSTIC: ?? There are no follicular epithelial cells present for ? evaluation. ? Linux Administrator:Bong Miller, ??DO ?07/21/2012 ? Completed by: ?LEONARDO LOVELL MD ?(Electronically signed by) ?07/21/2012 ? [facility] ? Gross Description ? 1)FNA, Thyroid (Left Upper Lobe): received 4 direct smears. ? Evaluation Episode #1: Adequate/DRB ? 2)FNA, Thyroid (Left Lower Lobe): received 4 direct smears. ? Evaluation Episode #1: Inadequate/DRB [facility] 07/20/2012 1:56 PM EDT us Felix Ortiz III, MD CYTOLOGY ORDERABLES Final Result Performing Organization Address City/State/[facility] Co de Phone Number [facility] [address] [place] [address] documented in this encounter Visit Diagnoses Diagnosis Thyroid mass Unspecified disorder of thyroid documented in this encounter Care Teams Rib Cutter Relationship Specialty Start Date End Date Yuliet Norman MD PCP - General 11/22/10 09/12/14 documented as of this encounter
--- OUTSIDE RECORDS SUMMARY | 2024-03-14 18:23 | XMS_ITS | Encounter Summary ---
Author Organization [place] [address] Care Team Providers Care Warp Trucker Name Role Phone Thea Rubio MD Primary Care Provider [phone]- [phone] Reason for Visit * Reason Onset Date Comments ED Follow-Up Call 06/12/2015 Encounter Details Date Type Department Care Team (Late st Contact Info) Description 06/12/2015 Patient Outreach [facility] [address] [place] [address] Susan Oliveira RMA [address] [place], [place] [id number] ED Follow-Up Call Social History Tobacco Use [...] Telephone Encounter - Susan Oliveira RMA - 06/12/2015 5:39 PM EST Contact made with patient in reference to follow up on recent discharge to home / self-care from a [facility] (ED). ?? Patient reports feeling [...] contact their primary care office or physician network systems consultant to ensure we meet their needs. Please remind patients to CALL THEIR DOCTOR FIRST before going to the Emergency Department. documented in this encounter Plan of Treatment Upcoming Encounters Date Type Department Care Team (Late st Contact Info) Description 04/24/2024 10:45 AM EST Clinical Support [facility] [address] [place] [address] documented as of this encounter Visit Diagnoses Not on filedocumented in this encounter Care Teams Warp Trucker Relationship Specialty Start Date End Date Thea Rubio MD PCP - General Family Medicine 09/13/14 07/16/22 documented as of this encounter
--- OUTSIDE RECORDS SUMMARY | 2024-03-14 18:23 | XMS_ITS | Encounter Summary ---
Author Organization [place] [address] Care Team Providers Care Senior Java Software Developer Name Role Phone Thea Rubio MD Primary Care Provider [phone]- [phone] Reason for Visit * Reason Comments Establish Care Encounter Details Date Type Department Care Team (Late st Contact Info) Description 09/13/2014 9:30 AM EDT Office Visit [facility] [address] [place] [address] Thea Rubio MD [address] [place], [place] [id number] Well adult (Primary Dx); Congenital biliary atresia (HCC); Migraine without aura and without status migrainosus, not intractable; Obesity Social History Tobacco Use Types Packs/Day Years Used Date Smoking Tobacco: Former Cigarettes 0.5 0.2 1 - 04/21/1994 Smokeless Tobacco: Never Tobacco Cessation:Counseling Given: Yes Alcohol Use Standard Drinks/Week Comments Yes 0 [...] Sign Reading Time Taken Comments Blood Pressure 112/76 09/13/2014 9:36 AM EDT Pulse 88 09/13/2014 9:36 AM EDT Temperature 36.4 ??C (97.6 ??F) 09/13/2014 9:36 AM ED T Respiratory Rate - - Oxygen Saturation - - Inhaled Oxygen Concentration - - Weight 87.1 kg (192 lb) 09/13/2014 9:36 AM EDT Height 165.1 cm (5' 5 ) 09/13/2014 9:36 AM EDT Body Mass Index 31.95 09/13/2014 9:36 AM EDT documented in this encounter Ordered Prescriptions Prescription Sig Dispense Quantity Refills Last Filled Start Date End Date topiramate (TOPAMAX) 50 mg Oral TabletIndications:M igraine without aura and without status migrainosus, not intractable Take 1 Tab by mouth 2 times daily. 180 Tab 1 09/13/2014 03/17/2015 documented in this encounter Progress Notes * Thea Rubio MD - 09/13/2014 10:02 AM EDT Subjective: Patient ID: Gardenia Childress is a 34 y.o. female. Chief Complaint Patient presents with ??? Establish Care HPI Patients past medical, family and social histories were reviewed and updated. There were no changesexcept as noted. Has migraines about 1-2 x a mo, lasting 1-2 days, occ Imitrex helps, occ doesn't. ORTEGA begins in neckarea. No aura. Imitrex is very sedating to pt. No problems with Topamax. Tried to lose wt and can't easily. Drinks reg soda at home. Patient Active Problem List Diagnosis Date Noted [...] old ??? Cholecystectomy couple mos old. Infant Outpatient Prescriptions Marked as Taking for the 09/13/14 encounter (Office Visit) with Thea Rubio MD Medication Sig Dispense Refill ??? dicyclomine (BENTYL) 10 mg Oral Capsule Take 10 mg by mouth 4 times daily as needed (for crampsafter menses). ??? SUMAtriptan (IMITREX) 25 mg tablet Take by mouth as needed for Migraine. ??? [DISCONTINUED] topiramate (TOPAMAX) 25 mg tablet Take by mouth 2 times daily. Allergies Allergen Reactions ??? Aspirin Not sure of rxn. ??? Morphine Nausea And Vomiting History Substance Use Topics ??? Smoking status: Former Smoker -- 0.50 packs/day for .2 years Quit date: 04/21/1994 ??? Smokeless tobacco: Never Used ??? Alcohol Use: Yes Comment: 2-3 drink every 3-4 mos. Family [...] ?), causes head aneurysms. Review of Systems Neurological: Positive for headaches. All other systems reviewed and are negative. Objective: Filed Vitals: 09/13/14 0936 BP: 112/76 Pulse: 88 Temp: 97.6 ??F (36.4 ??C) TempSrc: Oral Height: 5' 5 (1.651 m) Weight: 192 lb (87.091 kg) Body mass index is 31.95 kg/(m^2). Physical Exam Constitutional: She is oriented to person, place, and time. She appears well- developed and well-nourished. HENT: Head: Normocephalic and atraumatic. Right Ear: Tympanic membrane, external ear and ear canal normal. Left Ear: Tympanic membrane, external ear and ear canal normal. Nose: Nose normal. Mouth/Throat: Oropharynx is clear and moist. Eyes: Conjunctivae are normal. Pupils are equal, round, and reactive to light. Neck: Normal range of motion. Neck supple. No tracheal deviation present. No thyromegaly present. Cardiovascular: Normal rate, regular rhythm, normal heart sounds and intact distal pulses. Exam reveals no gallop and no friction rub. No murmur heard. Pulmonary/Chest: Effort normal and breath sounds normal. No respiratory distress. She has no rales. Abdominal: Soft. She exhibits no mass. There is no tenderness. There is no rebound and no guarding. Musculoskeletal: Normal range of motion. Lymphadenopathy: She has no cervical adenopathy. Neurological: She is alert and oriented to person, place, and time. No cranial nerve deficit. Skin: Skin is warm and dry. Psychiatric: She has a normal mood and affect. Her behavior is normal. Judgment and thought contentnormal. Nursing note and vitals reviewed. Lab Results Component Value Date WBC 8.0 03/12/2014 HGB 13.6 03/12/2014 HCT 40.9 03/12/2014 PLT 307 03/12/2014 ALT 9 03/12/2014 AST 18 03/12/2014 NA 139 03/12/2014 K 4.1 03/12/2014 CL 103 03/12/2014 CREATININE 0.73 03/12/2014 BUN 8 03/12/2014 CO2 24 03/12/2014 GLU 83 03/12/2014 TSHREFLEX 1.250 03/12/2014 Assessment and Plan: Gardenia was seen today for establish care. Diagnoses and associated orders for this visit: Well adult-doing well, see below. 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 Migraine without aura and without status migrainosus, not intractable-still sx, increase dose. - topiramate (TOPAMAX) 50 mg Oral Tablet; Take 1 Tab by mouth 2 times daily. Obesity-advise more exercise, cutting out soda forever, watching calories. Return in about 6 months (around 03/16/2015), or if symptoms worsen or fail to improve. 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 Dose adjustment 09/13/2014 documented as of this encounter Historical Medications * This list may reflect changes made after this encounter. dicyclomine (BENTYL) 10 mg Oral Capsule Take 10 mg by mouth 4 times daily as needed (for cramps after menses). 03/25/2017 added in this encounter Care Teams Senior Java Software Developer Relationship Specialty Start Date End Date Thea Rubio MD PCP - General Family Medicine 09/13/14 07/16/22 documented as of this encounter
--- OUTSIDE RECORDS SUMMARY | 2024-03-14 18:23 | XMS_ITS | Encounter Summary ---
Author Organization [place] [address] Care Team Providers Care Biblical Languages Professor Name Role Phone Thea Rubio MD Primary Care Provider [phone]- [phone] Reason for Visit * Reason Onset Date Comments Other 06/28/2015 Encounter Details Date Type Department Care Team (Late st Contact Info) Description 06/28/2015 Telephone [facility] [address] [place] [address] Thea Rubio MD [address] [place] [phone] Other Social History Tobacco Use Types Packs/Day [...] Refills Last Filled Start Date End Date ALPRAZolam (XANAX) 1 mg Oral TabletIndications: Claustrophobia Take 1 Tab by mouth once for 1 dose. Take 1 hour before MRI 1 Tab 0 06/28/2015 06/28/2015 documented in this encounter Miscellaneous Notes * Telephone Encounter - Susan Oliveira RMA - 06/28/2015 5:48 PM EST Pt aware rx called into pharmacy * Telephone Encounter - Thea Rubio MD - 06/28/2015 12:17 PM EST Please call alprazolam to pharmacy. Let patient know it possibly won't be covered by her insurance but since it is only 1 pill, she probably can just buy it. Someone else will need to drive her sinceshe is going to be under the influence of medication * Telephone Encounter - Antonietta Richards - 06/28/2015 11:09 AM EST The patient is having and MRI done tomorrow and she gets claustrophobic and she wants to know if you can prescribe something for her to calm her down. Shalonda Dillon documented in this encounter Plan of Treatment Upcoming Encounters Date Type Department Care Team (Late st Contact Info) Description 04/24/2024 10:45 AM EST Clinical Support [facility] [address] [place] [address] documented as of this encounter Visit Diagnoses Diagnosis Claustrophobia- Primary Other isolated or specific phobias documented in this encounter Care Teams Biblical Languages Professor Relationship Specialty Start Date End Date Thea Rubio MD PCP - General Family Medicine 09/13/14 07/16/22 documented as of this encounter
--- OUTSIDE RECORDS SUMMARY | 2024-03-14 18:23 | XMS_ITS | Encounter Summary ---
Author Organization [place] [address] Care Team Providers Care Social Science Analyst Name Role Phone Yuliet Norman MD Primary Care Provider [phone] Reason for Visit * Reason Comments Headache started last night, states has gotten worse as the day has progrees. Encounter Details Date Type Department Care Team (Late Contact Info) Description 06/07/2013 5:19 PM EST - 06/07/2013 7:34 PM EST Emergency [facility] [address] [facility] [place] [address] Gerard Geiger, [address] [address] Migraine (Primary Dx) Discharge Disposition: Home or Self [...] Sign Reading Time Taken Comments Blood Pressure 108/73 06/07/2013 7:26 PM EST Pulse 82 06/07/2013 7:26 PM EST Temperature 36.6 ??C (97.8 ??F) 06/07/2013 5:16 PM ES T Respiratory Rate 12 06/07/2013 7:26 PM EST Oxygen Saturation 97% 06/07/2013 7:26 PM EST Inhaled Oxygen Concentration - - Weight 81.6 kg (180 lb) 06/07/2013 5:16 PM EST Height 166.4 cm (5' 5.5 ) 06/07/2013 5:16 PM EST Body Mass Index 29.5 06/07/2013 5:16 PM EST documented in this encounter Discharge Instructions * Discharge Instructions* Rosalie Rivera PA-C - 06/07/2013 7:28 PM EST Images from the original note were not included. Go home and rest in a quiet dark room and Plenty of fluids Followup as instructed. You have been given a referral to neurology Return to ER for fever, neck stiffness, worsening headache, numbness, tingling or weakness of the extremities, changes in vision or speech, intractable vomiting, or other concerns Migraine Headache A migraine headache is very [...] Document Reviewed: 03/27/2012 ExitCare?? Patient Information ??2013 [employer] documented in this encounter Discharge Disposition Disposition Code Departure Means Destination Home or Self Senior Living documented in this encounter ED Notes * Rosalie Rivera PA-C - 06/07/2013 6:52 PM EST Chief Complaint Patient presents with ??? Headache started last night, states has gotten worse as the day has progrees. HPI Comments: Ms. Childress is a 33 year old female with a past medical history of migraines presenting with a new-onset migraine. Patient states the migraine began last night and continues to worsen gradually. She describes it as a throbbing in the back of the neck and bilateral ache in the face and orbit. Patient has taken 2 tablets of 75mg diclofenac with no improvement in symptoms. Movement increases the pain. No alleviating factors. She is positive for photophobia, phonophobia, blurry vision, and nausea. She denies vomiting and fever. No neck stiffness. No recent nasal congestion or uri symptoms. She denies any recent head injury. However she reports that in April 2012 she did have a fallfrom a horse and has had almost constant pain in the back of the head ever since which does worsen with her migraines. She has had CT head in May 2012 which does not show any acute intracranial findings. Patient denies numbness, tingling or weakness of the extremities. She says her headache today is consistent with a normal migraine.She presents here for further evaluation. The history is provided by the [...] Constitutional: Negative for fever and chills. Eyes: Positive for photophobia and visual disturbance. Respiratory: Negative for cough and shortness of breath. Cardiovascular: Negative for chest pain, palpitations and leg swelling. Gastrointestinal: Negative for nausea, vomiting, abdominal pain and diarrhea. Genitourinary: Negative for dysuria and frequency. Musculoskeletal: Negative. Skin: Negative for rash. Neurological: Positive for headaches. Psychiatric/Behavioral: Negative. All other systems reviewed and are negative. Blood pressure 118/84, pulse 99, temperature 97.8 ??F (36.6 ??C), temperature source Oral, resp. rate 16, height 5' 5.5 (1.664 m), weight 180 lb (81.647 kg), last menstrual period 06/01/2013, SpO2 100.00%. Physical Exam Nursing note and vitals reviewed. Constitutional: She is oriented to person, place, and time. She appears well- developed and well-nourished. No distress. HENT: Head: Normocephalic and atraumatic. No trismus in the jaw. Right Ear: Hearing and external ear normal. Left Ear: Hearing and external ear normal. Nose: Nose normal. Mouth/Throat: Uvula is midline, oropharynx is clear and moist and mucous membranes are normal. No edematous. No oropharyngeal exudate. Eyes: Conjunctivae and EOM are normal. Pupils are equal, round, and reactive to light. Right eye exhibits no discharge. Left eye exhibits no discharge. 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 She is unable to gaze laterally with the right eye but this is normal for her. Otherwise extraocular muscle movements are intact. Neck: Normal range of motion. Neck supple. No tracheal deviation present. No nuchal rigidity Cardiovascular: Normal rate, regular rhythm and normal [...] oriented to person, place, and time. She exhibits normal muscle tone. Coordination normal. GCS eye subscore is 4. GCS verbal subscore is 5. GCS motor subscore is 6. Cranial nerves II through XII grossly intact Strength and sensation are intact in the upper and lower extremities bilaterally Skin: Skin is warm and dry. No rash noted. Psychiatric: She has a normal mood and affect. Procedures Radiology/EKG/Labs: none ED Course: Appropriate laboratory and radiology studies reviewed Patient was seen and evaluated. I discussed this case with Dr. Geiger. Patient has had a normal CThead in May of 2012. She feels her headache today is consistent with a normal migraine and is neurologically intact. Therefore we did not feel any repeat CT head imaging was required. She is given a liter of IV fluids, Reglan and Benadryl. She says her headache is now tolerable . She will be discharged home. She is given a referral to neurology. She is to followup with primary care within 2days for recheck. She is given appropriate discharge, followup and return instructions. 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 ED Clinical Impression: Migraine headache Critical Care time Condition at Discharge/Transfer from Department: Improved This chart was completed using voice recognition technology and may contain unintended errors Rosalie Rivera PA-C 06/07/13 1930 Cosigned by Gerard Geiger DO at 06/07/2013 11:48 PM EST documented in this encounter Plan of Treatment Upcoming Encounters Date Type Department Care Team (Late st Contact Info) Description 04/24/2024 10:45 AM EST Clinical Support [facility] [address] [place] [address] documented as of this encounter Visit Diagnoses Diagnosis Migraine- Primary Migraine, unspecified, without mention of intractable migraine without mention of status migrainosus documented in this encounter Administered Medications Inactive Administered Medications - up to 1 most recent administrations Medication Order MAR Action Action Date Dose Rate Site diphenhydrAMINE (BENADRYL) injection 25 mg 25 mg, Intravenous, ONCE, 1 dose, On 06/07/13 at 1800 Given 06/07/2013 6:11 PM EST metoclopramide HCl (REGLAN) injection 10 mg 10 mg, Intravenous, ONCE, 1 dose, On Fri06/07/13 at 1800 Given 06/07/2013 6:11 PM EST 10 mg sodium chloride 0.9 % 1,000 mL IV bolus Intravenous, ONCE, 1 dose, On Fri06/07/13 at 1800, Wide Open IV Started 06/07/2013 6:12 PM EST documented in this encounter Active and Recently Administered Medications Times are shown in EST. Scheduled Medication Order 06/05/2013 06/06/2013 06/07/2013 diphenhydrAMINE (BENADRYL) injection 25 mg (COMPLETED) 25 mg, Intravenous, ONCE, 1 dose, On Fri06/07/13 at 1800 1811 (Given - Provid er: Chelsea Lancaster RN) metoclopramide HCl (REGLAN) injection 10 mg (COMPLETED) 10 mg, Intravenous, ONCE, 1 dose, On Fri06/07/13 at 1800 1811 (Given - Provid er: Chelsea Lancaster RN) sodium chloride 0.9 % 1,000 mL IV bolus (COMPLETED) Intravenous, ONCE, 1 dose, On Fri06/07/13 at 1800, Wide Open 1812 (IV Started - P rovider: Chelsea Lancaster RN)1927 (IV STOP - Provider: Chelsea Lancaster RN) documented in this encounter Care Teams Social Science Analyst Relationship Specialty Start Date End Date Yuliet Norman MD PCP - General 11/22/10 09/12/14 documented as of this encounter
--- OUTSIDE RECORDS SUMMARY | 2024-03-14 18:24 | XMS_ITS | Encounter Summary ---
Author Organization [place] [address] Care Team Providers Care Head Cook Name Role Phone Unavailable Primary Care Provider Unavailabl e Encounter Details Date Type Department Care Team (Late st Contact Info) Description 04/04/2007 8:30 PM EST - 04/09/2007 10:10 AM EST Hospital Encounter HST W4SE ASAEL Generic, Historical Provider Social History Tobacco Use Types Packs/Day Years Used Date Smoking Tobacco: Never Assessed Comments Unknown Sex and Gender Information Value Date Recorded Sex Assigned at Not on file Legal Sex Female 1:46 PM EDT Gender Identity Not on file Sexual Orientation Not on file documented as of this encounter Discharge Summaries * Unknown, Unknown - 08/15/2009 6:04 PM EDT documented in this encounter H&P Notes * Unknown, Unknown - 08/18/2009 1:03 AM EDT documented in this encounter Consult Notes * Unknown, Unknown - 08/18/2009 2:01 AM EDT * Unknown, Unknown - 08/18/2009 1:54 AM EDT documented in this encounter ED Notes * Unknown, Unknown - 08/18/2009 1:01 AM EDT documented in this encounter Plan of Treatment Upcoming Encounters Date Type Department Care Team (Late st Contact Info) Description 04/24/2024 10:45 AM EST Clinical Support [facility] [address] [place] [address] Scheduled Orders Name Type Priority Associated Diagnoses Orde r Schedule CT ABDOMEN W CONTRAST Imaging Routine Onc e for 1 Occurrences starting 08/04/2009 until 08/04/2009, [address] PELVIS W CONTRAST Imaging Routine Once for 1 Occurrences starting 08/04/2009 until 08/04/2009, [address] ABDOMEN W CONTRAST Imaging Routine Onc e for 1 Occurrences starting 08/04/2009 until 08/04/2009, [address] PELVIS W CONTRAST Imaging Routine Once for 1 Occurrences starting 08/04/2009 until 08/04/2009, 1 completed DIAG ABDOMEN, AP VIEW Imaging Routine Onc e for 1 Occurrences starting 08/04/2009 until 08/04/2009, 1 completed DIAG ABDOMEN, AP VIEW Imaging Routine Onc e for 1 Occurrences starting 08/04/2009 until 08/04/2009, 1 completed documented as of this encounter Procedures Procedure Name Priority Date/Time Associated Diagnosis Comments DIAG ABDOMEN, AP VIEW Routine 04/08/2007 12:00 AM EST DIAG ABDOMEN, AP VIEW Routine 04/08/2007 12:[address] PELVIS W CONTRAST Routine 04/07/2007 12:[address] ABDOMEN W CONTRAST Routine 04/06/2007 12:[address] PELVIS W CONTRAST Routine 04/04/2007 12:[address] ABDOMEN W CONTRAST Routine 04/04/2007 12:00 AM EST documented in this encounter Results * DIAG ABDOMEN, AP VIEW (04/08/2007 12:00 AM EST) Anatomical Region Laterality Modality Other 04/08/2007 04/08/2007 Narrative 04/08/2007 12:00 AM EST VERIFIED [facility] Reason: ??ABD PAIN/CHECK FOR RESIDUAL CONTRAST Dict.Staff: DARNELL PAK [id number] Verified By: DARNELL PAK ?Trice: 04/09/07 ??11:34 am Exams: ??[id number] VIEW KUB, 04-09-07: HISTORY: Abdominal pain. DISCUSSION: Two supine views of the abdomen/pelvis were obtained in anticipation of a scheduled upper GI series and small bowel follow-through. ??There is residual colonic contrast from patient's recent CT. ??The study will be performed after adequate bowel preparation. IMPRESSION: RESIDUAL BOWEL CONTRAST. ??SCHEDULED UPPER GI SERIES AND SMALL BOWEL FOLLOW-THROUGH WILL BE RESCHEDULED. ??MELLISA/ranulfo DICTATED 04-09-07 @7:19 AM end of result Procedure Note Unknown, U - 08/04/2009 VERIFIED [facility] Reason: ABD PAIN/CHECK FOR RESIDUAL CONTRAST Dict.Staff: DARNELL PAK [id number] Verified By: DARNELL PAK Trice: 04/09/07 11:34 am Exams: [id number] VIEW [facility], 04-09-07: HISTORY: Abdominal pain. DISCUSSION: Two supine views of the abdomen/pelvis were obtained in anticipation of a scheduled upper GI series and small bowel follow-through. There is residual colonic contrast from patient's recent CT. The study will be performed after adequate bowel preparation. IMPRESSION: RESIDUAL BOWEL CONTRAST. SCHEDULED UPPER GI SERIES AND SMALL BOWEL FOLLOW-THROUGH WILL BE RESCHEDULED. Tramaine DICTATED 04-09-07 @7:19 AM end of result us U Unknown IMG [facility] LW RAD HISTORICAL Final Result * DIAG ABDOMEN, AP VIEW (04/08/2007 12:00 AM EST) Anatomical Region Laterality Modality Other 04/08/2007 04/08/2007 Narrative 04/08/2007 12:00 AM EST VERIFIED [facility] Reason: ??BILIARY ATRESIA /ABD PAIN Dict.Staff: JOHN KOEHLER [id number] Verified By: JESÚS BUCK ? Trice: 04/08/07 ?? 3:59 pm Exams: ??[id number] VIEW ABDOMEN HISTORY: ??BILIARY ATRESIA, ABDOMINAL PAIN The study was obtained prior to a planned upper GI and small bowel examination. ??Considerable contrast is seen in the colon. The planned study will be rescheduled in order to allow for thorough preparation of the bowel. ??No free air or dilated bowel loops. OPINION: ??CONSIDERABLE CONTRAST IS SEEN IN THE COLON FROM THE PATIENT'S RECENT CT SCAN. NEILS/pp DICTATED ON 04-08-07 AT 1100 HOURS end of result Procedure Note Unknown, U - 08/04/2009 VERIFIED [facility] Reason: BILIARY ATRESIA /ABD PAIN Dict.Staff: JOHN KOEHLER [id number] Verified By: JESÚS BUCK Trice: 04/08/07 3:59 pm Exams: [id number] VIEW ABDOMEN HISTORY: BILIARY ATRESIA, ABDOMINAL PAIN The study was obtained prior to a planned upper GI and small bowel examination. Considerable contrast is seen in the colon. The planned study will be rescheduled in order to allow for thorough preparation of the bowel. No free air or dilated bowel loops. OPINION: CONSIDERABLE CONTRAST IS SEEN IN THE COLON FROM THE PATIENT'S RECENT CT SCAN. NEILS/pp DICTATED ON 04-08-07 AT 1100 HOURS end of result us U Unknown [facility] RAD HISTORICAL Final Result * CT PELVIS W CONTRAST (04/07/2007 12:00 AM EST) Anatomical Region Laterality Modality Other 04/07/2007 04/07/2007 Narrative 04/07/2007 12:00 AM EST VERIFIED [facility] Reason: ??ABD PAIN Dict.Staff: ELAINE MCKAY [id number] Verified By: ELAINE MCKAY ?Trice: 04/07/07 ?? 4:54 pm Exams: ??CT-ABDOMEN WITH CONTRAST CT-PELVIS WITH CONTRAST CT ABDOMEN AND PELVIS WITH CONTRAST 04-07-07 HISTORY: ??ABDOMINAL PAIN. ??NAUSEA AND VOMITING. ??PRIOR KSAI PROCEDURE. ??FOLLOW UP LIVER LESION COMPARISON: ??CT ABDOMEN AND PELVIS WITH CONTRAST 04-04-[address] abdomen and pelvis after administration of oral and 100ml Isovue 370 intravenous contrast. Abdomen: Previously described areas of low attenuation surrounding the dilated left hepatic biliary duct is similar to the recent prior study. ??A small 6 by 15mm fluid focus with surrounding enhancement is developing in the lateral aspect of the low attenuation focus non dependent pneumobilia is again demonstrated consistent with the prior KSAI procedure. ??Surgical clip is again seen in the region of the distal extra hepatic bile duct consistent with a distal biliary anastomosis. ??The extra hepatic bile duct is slightly more distended than the prior study measuring 1.4cm in diameter. ??Liver is otherwise unremarkable without additional new focal lesions. ??Spleen, adrenals, pancreas and kidneys are stable and unremarkable. There is no pancreatic duct dilatation. ??Visualized gastrointestinal tract is stable. Pelvis: No evidence of abscess or ascites. ??Visualized gastrointestinal tract and the urinary bladder remain normal. ??Cysts are again seen in the bilateral adnexa consistent with ovarian follicles. IMPRESSION: 1. PERSISTENT LOW ATTENUATION SURROUNDING DILATED LEFT INTRAHEPATIC BILIARY DUCT IN THE ANTERIOR LIVER NOW WITH DEVELOPING FLUID FOCUS IN THE MOST LEFTWARD OF THESE SUSPICIOUS FOR DEVELOPING ABSCESS, BUT ONLY MEASURING 6 BY 15MM AT THIS POINT. ??FINDINGS ARE MOST CONSISTENT WITH ASCENDING CHOLANGITIS. CLINICAL CORRELATION RECOMMENDED. ??THERE IS MINIMAL INCREASING PROMINENCE OF THE EXTRA HEPATIC BILIARY DUCT OF UNCERTAIN SIGNIFICANCE. ??IF THERE IS SERUM EVIDENCE FOR BILIARY OBSTRUCTION WITH ELEVATED ALKAPHOSE OR BILIRUBIN THAN ERCP WOULD BE RECOMMENDED TO ASSESS THE DISTAL BILIARY ANASTOMOSIS FOR STRICTURE OR STONES. NELY/jocy DICTATED ON 04-07-07 AT 1250 HOURS end of result Procedure Note Unknown, U - 08/04/2009 VERIFIED [facility] Reason: ABD PAIN Dict.Staff: ELAINE MCKAY [id number] Verified By: ELAINE MCKAY Trice: 04/07/07 4:54 pm Exams: CT-ABDOMEN WITH CONTRAST CT-PELVIS WITH CONTRAST CT ABDOMEN AND PELVIS WITH CONTRAST 04-07-07 HISTORY: ABDOMINAL PAIN. NAUSEA AND VOMITING. PRIOR KSAI PROCEDURE. FOLLOW UP LIVER LESION COMPARISON: CT ABDOMEN AND PELVIS WITH CONTRAST 04-04-[address] abdomen and pelvis after administration of oral and 100ml Isovue 370 intravenous contrast. Abdomen: Previously described areas of low attenuation surrounding the dilated left hepatic biliary duct is similar to the recent prior study. A small 6 by 15mm fluid focus with surrounding enhancement is developing in the lateral aspect of the low attenuation focus non dependent pneumobilia is again demonstrated consistent with the prior KSAI procedure. Surgical clip is again seen in the region of the distal extra hepatic bile duct consistent with a distal biliary anastomosis. The extra hepatic bile duct is slightly more distended than the prior study measuring 1.4cm in diameter. Liver is otherwise unremarkable without additional new focal lesions. Spleen, adrenals, pancreas and kidneys are stable and unremarkable. There is no pancreatic duct dilatation. Visualized gastrointestinal tract is stable. Pelvis: No evidence of abscess or ascites. Visualized gastrointestinal tract and the urinary bladder remain normal. Cysts are again seen in the bilateral adnexa consistent with ovarian follicles. IMPRESSION: 1. PERSISTENT LOW ATTENUATION SURROUNDING DILATED LEFT INTRAHEPATIC BILIARY DUCT IN THE ANTERIOR LIVER NOW WITH DEVELOPING FLUID FOCUS IN THE MOST LEFTWARD OF THESE SUSPICIOUS FOR DEVELOPING ABSCESS, BUT ONLY MEASURING 6 BY 15MM AT THIS POINT. FINDINGS ARE MOST CONSISTENT WITH ASCENDING CHOLANGITIS. CLINICAL CORRELATION RECOMMENDED. THERE IS MINIMAL INCREASING PROMINENCE OF THE EXTRA HEPATIC BILIARY DUCT OF UNCERTAIN SIGNIFICANCE. IF THERE IS SERUM EVIDENCE FOR BILIARY OBSTRUCTION WITH ELEVATED ALKAPHOSE OR BILIRUBIN THAN ERCP WOULD BE RECOMMENDED TO ASSESS THE DISTAL BILIARY ANASTOMOSIS FOR STRICTURE OR STONES. NELY/jocy DICTATED ON 04-07-07 AT 1250 HOURS end of result us U Unknown IMG [facility] RAD HISTORICAL Final Result * CT ABDOMEN W CONTRAST (04/06/2007 12:00 AM EST) Anatomical Region Laterality Modality Other 04/06/2007 04/06/2007 Narrative 04/06/2007 12:00 AM EST VERIFIED [facility] Reason: ??ABD PAIN Dict.Staff: ELAINE MCKAY [id number] Verified By: ELAINE MCKAY ?Trice: 04/07/07 ?? 4:54 pm Exams: ??CT-ABDOMEN WITH CONTRAST CT-PELVIS WITH CONTRAST CT ABDOMEN AND PELVIS WITH CONTRAST 04-07-07 HISTORY: ??ABDOMINAL PAIN. ??NAUSEA AND VOMITING. ??PRIOR KSAI PROCEDURE. ??FOLLOW UP LIVER LESION COMPARISON: ??CT ABDOMEN AND PELVIS WITH CONTRAST 04-04-[address] abdomen and pelvis after administration of oral and 100ml Isovue 370 intravenous contrast. Abdomen: Previously described areas of low attenuation surrounding the dilated left hepatic biliary duct is similar to the recent prior study. ??A small 6 by 15mm fluid focus with surrounding enhancement is developing in the lateral aspect of the low attenuation focus non dependent pneumobilia is again demonstrated consistent with the prior KSAI procedure. ??Surgical clip is again seen in the region of the distal extra hepatic bile duct consistent with a distal biliary anastomosis. ??The extra hepatic bile duct is slightly more distended than the prior study measuring 1.4cm in diameter. ??Liver is otherwise unremarkable without additional new focal lesions. ??Spleen, adrenals, pancreas and kidneys are stable and unremarkable. There is no pancreatic duct dilatation. ??Visualized gastrointestinal tract is stable. Pelvis: No evidence of abscess or ascites. ??Visualized gastrointestinal tract and the urinary bladder remain normal. ??Cysts are again seen in the bilateral adnexa consistent with ovarian follicles. IMPRESSION: 1. PERSISTENT LOW ATTENUATION SURROUNDING DILATED LEFT INTRAHEPATIC BILIARY DUCT IN THE ANTERIOR LIVER NOW WITH DEVELOPING FLUID FOCUS IN THE MOST LEFTWARD OF THESE SUSPICIOUS FOR DEVELOPING ABSCESS, BUT ONLY MEASURING 6 BY 15MM AT THIS POINT. ??FINDINGS ARE MOST CONSISTENT WITH ASCENDING CHOLANGITIS. CLINICAL CORRELATION RECOMMENDED. ??THERE IS MINIMAL INCREASING PROMINENCE OF THE EXTRA HEPATIC BILIARY DUCT OF UNCERTAIN SIGNIFICANCE. ??IF THERE IS SERUM EVIDENCE FOR BILIARY OBSTRUCTION WITH ELEVATED ALKAPHOSE OR BILIRUBIN THAN ERCP WOULD BE RECOMMENDED TO ASSESS THE DISTAL BILIARY ANASTOMOSIS FOR STRICTURE OR STONES. NELY/jocy DICTATED ON 04-07-07 AT 1250 HOURS end of result Procedure Note Unknown, U - 08/04/2009 VERIFIED [facility] Reason: ABD PAIN Dict.Staff: ELAINE MCKAY [id number] Verified By: ELAINE MCKAY Trice: 04/07/07 4:54 pm Exams: CT-ABDOMEN WITH CONTRAST CT-PELVIS WITH CONTRAST CT ABDOMEN AND PELVIS WITH CONTRAST 04-07-07 HISTORY: ABDOMINAL PAIN. NAUSEA AND VOMITING. PRIOR KSAI PROCEDURE. FOLLOW UP LIVER LESION COMPARISON: CT ABDOMEN AND PELVIS WITH CONTRAST 04-04-[address] abdomen and pelvis after administration of oral and 100ml Isovue 370 intravenous contrast. Abdomen: Previously described areas of low attenuation surrounding the dilated left hepatic biliary duct is similar to the recent prior study. A small 6 by 15mm fluid focus with surrounding enhancement is developing in the lateral aspect of the low attenuation focus non dependent pneumobilia is again demonstrated consistent with the prior KSAI procedure. Surgical clip is again seen in the region of the distal extra hepatic bile duct consistent with a distal biliary anastomosis. The extra hepatic bile duct is slightly more distended than the prior study measuring 1.4cm in diameter. Liver is otherwise unremarkable without additional new focal lesions. Spleen, adrenals, pancreas and kidneys are stable and unremarkable. There is no pancreatic duct dilatation. Visualized gastrointestinal tract is stable. Pelvis: No evidence of abscess or ascites. Visualized gastrointestinal tract and the urinary bladder remain normal. Cysts are again seen in the bilateral adnexa consistent with ovarian follicles. IMPRESSION: 1. PERSISTENT LOW ATTENUATION SURROUNDING DILATED LEFT INTRAHEPATIC BILIARY DUCT IN THE ANTERIOR LIVER NOW WITH DEVELOPING FLUID FOCUS IN THE MOST LEFTWARD OF THESE SUSPICIOUS FOR DEVELOPING ABSCESS, BUT ONLY MEASURING 6 BY 15MM AT THIS POINT. FINDINGS ARE MOST CONSISTENT WITH ASCENDING CHOLANGITIS. CLINICAL CORRELATION RECOMMENDED. THERE IS MINIMAL INCREASING PROMINENCE OF THE EXTRA HEPATIC BILIARY DUCT OF UNCERTAIN SIGNIFICANCE. IF THERE IS SERUM EVIDENCE FOR BILIARY OBSTRUCTION WITH ELEVATED ALKAPHOSE OR BILIRUBIN THAN ERCP WOULD BE RECOMMENDED TO ASSESS THE DISTAL BILIARY ANASTOMOSIS FOR STRICTURE OR STONES. NELY/pp DICTATED ON 04-07-07 AT 1250 HOURS end of result us U Unknown IM [facility] RAD HISTORICAL Final Result * CT PELVIS W CONTRAST (04/04/2007 12:00 AM EST) Anatomical Region Laterality Modality Other 04/04/2007 04/04/2007 Narrative 04/04/2007 12:00 AM EST VERIFIED [facility] Reason: ??llq pain h/o of kasai procedure in ac3 Dict.Staff: MONTSERRAT TERRY [id number] Verified By: HARPER DSOUZA ? Trice: 04/05/07 ??11:13 am Exams: ??CT-ABDOMEN WITH CONTRAST CT-PELVIS WITH CONTRAST CT ABDOMEN AND PELVIS: ??04/04/2007. HISTORY: ??Left lower quadrant pain, nausea, vomiting. TECHNIQUE: ??Five millimeter helical CT images were obtained of the abdomen and pelvis following intravenous administration of 100ml of Isovue 370. ??Oral contrast was also administered. COMPARISON: ??12/08/2006 and 12/03/2006. FINDINGS: Abdomen: ??The patient is status post Kasai procedure. ??There is a small amount of pneumobilia. ??There is an increased heterogeneous appearance of the left lobe of the liver with some biliary dilatation and surrounding low density. ??The surrounding low attenuation is a new finding since prior CT. ??The pancreas, spleen, adrenal glands, and kidneys are unremarkable. Previously identified fluid collection within the mid abdominal mesentery has resolved. ??There is no bowel obstruction or free air. Pelvis: ??Trace amount of free pelvic fluid. ??Some mildly prominent mesenteric lymph nodes, not significantly changed since the prior study. IMPRESSION: The patient is status post Kasai procedure. ??There is increased heterogeneous appearance of the left lobe of the liver with biliary dilatation and surrounding hypodensity. ??This may be post-infectious in nature. ??Short-interval follow-up is recommended to evaluate for developing liver abscess. ARI:ivana Dictated on 04/04/2007 @ 18:54 Findings called to the Emergency Department at 19:00 on 04/04/2007. end of result Procedure Note Cruz Rain S - 08/04/2009 VERIFIED [facility] Reason: llq pain h/o of kasai procedure in ac3 Dict.Staff: MONTSERRAT TERRY [id number] Verified By: HARPER DSOUZA Trice: 04/05/07 11:13 am Exams: CT-ABDOMEN WITH CONTRAST CT-PELVIS WITH CONTRAST CT ABDOMEN AND PELVIS: 04/04/2007. HISTORY: Left lower quadrant pain, nausea, vomiting. TECHNIQUE: Five millimeter helical CT images were obtained of the abdomen and pelvis following intravenous administration of 100ml of Isovue 370. Oral contrast was also administered. COMPARISON: 12/08/2006 and 12/03/2006. FINDINGS: Abdomen: The patient is status post Kasai procedure. There is a small amount of pneumobilia. There is an increased heterogeneous appearance of the left lobe of the liver with some biliary dilatation and surrounding low density. The surrounding low attenuation is a new finding since prior CT. The pancreas, spleen, adrenal glands, and kidneys are unremarkable. Previously identified fluid collection within the mid abdominal mesentery has resolved. There is no bowel obstruction or free air. Pelvis: Trace amount of free pelvic fluid. Some mildly prominent mesenteric lymph nodes, not significantly changed since the prior study. IMPRESSION: The patient is status post Kasai procedure. There is increased heterogeneous appearance of the left lobe of the liver with biliary dilatation and surrounding hypodensity. This may be post-infectious in nature. Short-interval follow-up is recommended to evaluate for developing liver abscess. ARI:ivana Dictated on 04/04/2007 @ 18:54 Findings called to the Emergency Department at 19:00 on 04/04/2007. end of result Dallin Dowd IM [facility] RAD HISTORICAL Final Result * CT ABDOMEN W CONTRAST (04/04/2007 12:00 AM EST) Anatomical Region Laterality Modality Other 04/04/2007 04/04/2007 Narrative 04/04/2007 12:00 AM EST VERIFIED [facility] Reason: ??llq pain h/o of kasai procedure in ac3 Dict.Staff: MONTSERRAT TERRY [id number] Verified By: HARPER DSOUZA ? Trice: 04/05/07 ??11:13 am Exams: ??CT-ABDOMEN WITH CONTRAST CT-PELVIS WITH CONTRAST CT ABDOMEN AND PELVIS: ??04/04/2007. HISTORY: ??Left lower quadrant pain, nausea, vomiting. TECHNIQUE: ??Five millimeter helical CT images were obtained of the abdomen and pelvis following intravenous administration of 100ml of Isovue 370. ??Oral contrast was also administered. COMPARISON: ??12/08/2006 and 12/03/2006. FINDINGS: Abdomen: ??The patient is status post Kasai procedure. ??There is a small amount of pneumobilia. ??There is an increased heterogeneous appearance of the left lobe of the liver with some biliary dilatation and surrounding low density. ??The surrounding low attenuation is a new finding since prior CT. ??The pancreas, spleen, adrenal glands, and kidneys are unremarkable. Previously identified fluid collection within the mid abdominal mesentery has resolved. ??There is no bowel obstruction or free air. Pelvis: ??Trace amount of free pelvic fluid. ??Some mildly prominent mesenteric lymph nodes, not significantly changed since the prior study. IMPRESSION: The patient is status post Kasai procedure. ??There is increased heterogeneous appearance of the left lobe of the liver with biliary dilatation and surrounding hypodensity. ??This may be post-infectious in nature. ??Short-interval follow-up is recommended to evaluate for developing liver abscess. ARI:ivaan Dictated on 04/04/2007 @ 18:54 Findings called to the Emergency Department at 19:00 on 04/04/2007. end of result Procedure Note Rain Cruz S - 08/04/2009 VERIFIED [facility] Reason: llq pain h/o of kasai procedure in ac3 Dict.Staff: MONTSERRAT TERRY [id number] Verified By: HARPER DSOUZA Trice: 04/05/07 11:13 am Exams: CT-ABDOMEN WITH CONTRAST CT-PELVIS WITH CONTRAST CT ABDOMEN AND PELVIS: 04/04/2007. HISTORY: Left lower quadrant pain, nausea, vomiting. TECHNIQUE: Five millimeter helical CT images were obtained of the abdomen and pelvis following intravenous administration of 100ml of Isovue 370. Oral contrast was also administered. COMPARISON: 12/08/2006 and 12/03/2006. FINDINGS: Abdomen: The patient is status post Kasai procedure. There is a small amount of pneumobilia. There is an increased heterogeneous appearance of the left lobe of the liver with some biliary dilatation and surrounding low density. The surrounding low attenuation is a new finding since prior CT. The pancreas, spleen, adrenal glands, and kidneys are unremarkable. Previously identified fluid collection within the mid abdominal mesentery has resolved. There is no bowel obstruction or free air. Pelvis: Trace amount of free pelvic fluid. Some mildly prominent mesenteric lymph nodes, not significantly changed since the prior study. IMPRESSION: The patient is status post Kasai procedure. There is increased heterogeneous appearance of the left lobe of the liver with biliary dilatation and surrounding hypodensity. This may be post-infectious in nature. Short-interval follow-up is recommended to evaluate for developing liver abscess. ARI:ivana Dictated on 04/04/2007 @ 18:54 Findings called to the Emergency Department at 19:00 on 04/04/2007. end of result us Dallin Dowd IMG [facility] LW RAD HISTORICAL Final Result documented in this encounter Visit Diagnoses Not on filedocumented in this encounter
--- OUTSIDE RECORDS SUMMARY | 2024-03-14 18:24 | XMS_ITS | Encounter Summary ---
Author Organization [place] [address] Care Team Providers Care Caser In Name Role Phone Unavailable Primary Care Provider Unavailabl e Encounter Details Date Type Department Care Team (Late st Contact Info) Description 11/12/2007 Hospital Encounter HST MEDICIN ASAEL Generic, Historical Provider Social History Tobacco [...] 04/24/2024 10:45 AM EST Clinical Support [facility] [address] [place] [address] documented as of this encounter Visit Diagnoses Not on filedocumented in this encounter
--- OUTSIDE RECORDS SUMMARY | 2024-03-14 18:24 | XMS_ITS | Encounter Summary ---
Author Organization [place] [address] Care Team Providers Care Housekeeping Laundry Worker Name Role Phone Unavailable Primary Care Provider Unavailabl e Encounter Details Date Type Department Care Team (Late st Contact Info) Description 01/27/1998 9:28 AM EDT - 03/13/1998 Hospital Encounter HST [facility] Fred Martínez MD Social History Tobacco Use Types Packs/Day Years [...] Clinical Support [facility] [address] [place] [id number] documented as of this encounter Visit Diagnoses Not on filedocumented in this encounter
--- OUTSIDE RECORDS SUMMARY | 2024-03-14 18:24 | XMS_ITS | Encounter Summary ---
Author Organization [place] [address] Care Team Providers Care Timber Management Technician Name Role Phone Unavailable Primary Care Provider Unavailabl e Encounter Details Date Type Department Care Team (Late st Contact Info) Description 02/07/1999 7:10 PM EDT - 02/07/1999 9:00 PM EDT Hospital Encounter HST MAJOR ER EDG Edmund Small [address] [place] [address] [address] [place] [id number] Fred Judd MD Social History Tobacco Use Types Packs/Day [...] 04/24/2024 10:45 AM EST Clinical Support [facility] [address] [place] [phone] documented as of this encounter Visit Diagnoses Not on filedocumented in this encounter
--- OUTSIDE RECORDS SUMMARY | 2024-03-14 18:24 | XMS_ITS | Encounter Summary ---
Author Organization [place] [address] Care Team Providers Care Pc Analyst Name Role Phone Unavailable Primary Care Provider Unavailabl e Encounter Details Date Type Department Care Team (Late st Contact Info) Description 12/03/2006 9:55 AM EDT Hospital Encounter HST E/D RED EDG Kris Campbell MD [address] [place] [address] [place] [address] Social History Tobacco Use Types Packs/Day Years Used Date Smoking Tobacco: Never Assessed Comments Unknown Sex and Gender Information Value Date Recorded Sex Assigned at Not on file Legal Sex Female 1:46 PM EDT Gender Identity Not on file Sexual Orientation Not on file documented as of this encounter H&P Notes * Unknown, U - 11/30/2009 1:37 PM EDT documented in this encounter Plan of Treatment Upcoming Encounters Date Type Department Care Team (Late Contact Info) Description 04/24/2024 10:45 AM EST Clinical Support [facility] [address] [place] [address] Scheduled Orders Name Type Priority Associated Diagnoses Orde r Schedule CT ABD/PELVIS HORSE SHOW MANAGER Imaging Routine Once fo r 1 Occurrences starting 06/28/2009 until 06/28/2009, 1 completed documented as of this encounter Procedures Procedure Name Priority Date/Time Associated Diagnosis Comments CT ABD/PELVIS HORSE SHOW MANAGER Routine 12/03/2006 8:5 1 AM EDT documented in this encounter Results * CT ABD/PELVIS HORSE SHOW MANAGER (12/03/2006 8:51 AM EDT) Anatomical Region Laterality Modality Other 12/03/2006 8:51 AM EDT Narrative 12/03/2006 9:51 AM EDT ER [address] with contrast- 12/03/06. Comparisons- ??None at this institution. Indication- ??26-year-old female with abdominal pain, nausea and vomiting. Reported history of liver surgery as a small child. Details not clearly known. Technical factors- ??5 mm axial images obtained from lung bases through symphysis pubis following administration or oral contrast and 100 mL IV [id number]. Findings- Lungs are clear. Pneumobilia present in anterior right and left hepatic lobes. Mild intrahepatic low attenuation, ductal dilatation predominantly involves anteromedial and lateral segment left hepatic lobe^ however, there is at least one mildly dilated biliary duct anteromedial margin of medial segment left hepatic lobe. There is doubtful presence that the gallbladder still remains. A partially fluid and air filled viscus structure medial to the liver does not appear continuous with the normal duodenal C loop. Postsurgical small bowel remnant may be present. Inferior and anterior to the pancreas is confluent hazy increased attenuation of the mesentery. It surrounds an irregular and heterogeneous gas collection measuring approximately 3.4 x 2.6 cm in size and is indeterminate for endoluminal, extraluminal or a combination of both gas. This area lies immediately posterior to inferior gastric wall. Portions of a partially collapsed small bowel marginates the area as well. Tail of the pancreas has distinct margins and there is no associated mesenteric inflammation. A couple of small accessory spleens or lymph nodes noted medial to inferior spleen. Adrenal glands and kidneys are normal. Appendix is not identified. Cecum is high, located above the iliac crest. ??Ascending and proximal transverse colon contain a moderate amount of gas with a small to moderate amount of stool. Descending colon is collapsed and rectum contains stool. Left adnexa is heterogeneous. Inferiorly, a 1.8 cm lobulated mildly hyperintense thick outer marginated structure has small area of eccentric low attenuation center. This is favored to represent a collapsed cyst. Right adnexa and uterus are normal. Small amount of gas is noted on left side of the vagina. No definite free fluid present in the pelvis. Impression abdomen- 1. Suspected altered upper GI and liver postsurgical changes, including pneumobilia and localized mild dilated left hepatic ducts. What appears to be more acute is inflammation anterior and inferior to the pancreas, posterior to the stomach and near a partially collapsed small bowel loop. An unusual collection of mixed gas within the center of this area is indeterminate for endo ??or extraluminal gas. It may be a combination of both and there is concern for a perforated gastric ulcer ??versus upper small bowel ulcer to account for the findings. Discussion with Dr. Kris Campbell of the Emergency Department describes the patient has no laboratory abnormalities or history consistent with pancreatitis. Although it may not be possible, any prior outside film comparisons or surgical history may be helpful. Direct visualization with endoscope also would be helpful. Impression pelvis- 1. 1.8 cm suspected recently collapsed left adnexal cyst. ? Cost Estimator- JANE ESPARZA ? Reading Radiologist- SAQIB ANAND ??MD. ? Released Date Time- 12/03/06 1246 Procedure Note Saqib Anand - 06/28/2009 ER [address] with contrast- 12/03/06. Comparisons- None at this institution. Indication- 26-year-old female with abdominal pain, nausea and vomiting. Reported history of liver surgery as a small child. Details not clearly known. Technical factors- 5 mm axial images obtained from lung bases through symphysis pubis following administration or oral contrast and 100 mL IV [id number]-[id number]. Findings- Lungs are clear. Pneumobilia present in anterior right and left hepatic lobes. Mild intrahepatic low attenuation, ductal dilatation predominantly involves anteromedial and lateral segment left hepatic lobe^ however, there is at least one mildly dilated biliary duct anteromedial margin of medial segment left hepatic lobe. There is doubtful presence that the gallbladder still remains. A partially fluid and air filled viscus structure medial to the liver does not appear continuous with the normal duodenal C loop. Postsurgical small bowel remnant may be present. Inferior and anterior to the pancreas is confluent hazy increased attenuation of the mesentery. It surrounds an irregular and heterogeneous gas collection measuring approximately 3.4 x 2.6 cm in size and is indeterminate for endoluminal, extraluminal or a combination of both gas. This area lies immediately posterior to inferior gastric wall. Portions of a partially collapsed small bowel marginates the area as well. Tail of the pancreas has distinct margins and there is no associated mesenteric inflammation. A couple of small accessory spleens or lymph nodes noted medial to inferior spleen. Adrenal glands and kidneys are normal. Appendix is not identified. Cecum is high, located above the iliac crest. Ascending and proximal transverse colon contain a moderate amount of gas with a small to moderate amount of stool. Descending colon is collapsed and rectum contains stool. Left adnexa is heterogeneous. Inferiorly, a 1.8 cm lobulated mildly hyperintense thick outer marginated structure has small area of eccentric low attenuation center. This is favored to represent a collapsed cyst. Right adnexa and uterus are normal. Small amount of gas is noted on left side of the vagina. No definite free fluid present in the pelvis. Impression abdomen- 1. Suspected altered upper GI and liver postsurgical changes, including pneumobilia and localized mild dilated left hepatic ducts. What appears to be more acute is inflammation anterior and inferior to the pancreas, posterior to the stomach and near a partially collapsed small bowel loop. An unusual collection of mixed gas within the center of this area is indeterminate for endo or extraluminal gas. It may be a combination of both and there is concern for a perforated gastric ulcer versus upper small bowel ulcer to account for the findings. Discussion with Dr. Kris Campbell of the Emergency Department describes the patient has no laboratory abnormalities or history consistent with pancreatitis. Although it may not be possible, any prior outside film comparisons or surgical history may be helpful. Direct visualization with endoscope also would be helpful. Impression pelvis- 1. 1.8 cm suspected recently collapsed left adnexal cyst. Cost Estimator- JANE ESPARZA Reading Radiologist- SAQIB ANAND MD. Released Date Time- 12/03/06 1246 us Lex Salas MD [facility] HISTORICAL Final Result documented in this encounter Visit Diagnoses Not on filedocumented in this encounter
--- OUTSIDE RECORDS SUMMARY | 2024-03-14 18:24 | XMS_ITS | Encounter Summary ---
Author Organization [place] [address] Care Team Providers Care Price Economist Name Role Phone Unavailable Primary Care Provider Unavailabl e Encounter Details Date Type Department Care Team (Late st Contact Info) Description 05/24/2008 12:24 PM EST - 05/24/2008 11:59 PM EST Hospital Encounter HST LAB EDG Marge Calles MD [address] [place] [address] Social History Tobacco Use Types Packs/Day Years [...] 04/24/2024 10:45 AM EST Clinical Support [facility] [address] [place] [address] documented as of this encounter Visit Diagnoses Not on filedocumented in this encounter
--- OUTSIDE RECORDS SUMMARY | 2024-03-14 18:24 | XMS_ITS | Encounter Summary ---
Author Organization [place] [address] Care Team Providers Care Air Conditioning Unit Assembler Name Role Phone Unavailable Primary Care Provider Unavailabl e Encounter Details Date Type Department Care Team (Late st Contact Info) Description 12/31/2007 2:30 PM EDT - 12/31/2007 5:45 PM EDT Hospital Encounter HST EBC FTT Generic, Historical Provider Social History Tobacco Use [...] Clinical Support [facility] [address] [place] [phone] documented as of this encounter Visit Diagnoses Not on filedocumented in this encounter
--- OUTSIDE RECORDS SUMMARY | 2024-03-14 18:24 | XMS_ITS | Encounter Summary ---
Author Organization [facility] [address] Care Team Providers Care E/M Engineer Name Role Phone Unavailable Primary Care Provider Unavailabl e Encounter Details Date Type Department Care Team (Late st Contact Info) Description 07/15/2007 2:57 PM EDT - 07/15/2007 11:59 PM EDT Hospital Encounter HST LAB EDG [facility] Social History Tobacco Use Types Packs/Day Years [...] Clinical Support [facility] [address] [place] [address] documented as of this encounter Visit Diagnoses Not on filedocumented in this encounter
--- OUTSIDE RECORDS SUMMARY | 2024-03-14 18:24 | XMS_ITS | Encounter Summary ---
Author Organization [place] [address] Care Team Providers Care Sock Examiner Name Role Phone Unavailable Primary Care Provider Unavailabl e Encounter Details Date Type Department Care Team (Late st Contact Info) Description 03/17/2009 12:01 AM EST - 03/20/2009 6:57 AM EST Hospital Encounter HST [place] [address] [place] [address] Social History Tobacco Use Types Packs/Day Years [...] [facility] [address] [place] [address] Scheduled Orders Name Type Priority Associated Diagnoses Orde r Schedule HOLTER MONTIOR PANEL Imaging Cardiology Routine Once for 1 Occurrences starting 06/30/2009 until 06/30/2009, 1 completed documented as of this encounter Procedures Procedure Name Priority Date/Time Associated Diagnosis Comments HM HOLTER MONTIOR PANEL Routine 03/20/2009 2:27 PM EST documented in this encounter Results * HM HOLTER MONTIOR PANEL (03/20/2009 2:27 PM EST) Anatomical Region Laterality Modality Other 03/20/2009 2:27 PM EST Narrative 03/23/2009 1:47 PM EST INDICATIONS- Palpitations ?LENGTH OF TAPE 24 HRS 20 ??MINS MEDICATION- Oxycodone,Phenergan SLOWEST RATE 62 ?FASTEST RATE 122 ? AVERAGE RATE 86 TOTAL PVC'S ??89 ? TOTAL PAC'S 2 ??VENTRICULAR TACHYCARDIA ? SUPRAVENTRICULAR TACHYCARDIA Number of episodes 0 ?Number of episodes 0 Longest run ? beats ? Longest run ?beats Fastest rate ?Fastest rate OTHER ARRHYTHMIAS- ??See below. ST ??T WAVE CHANGES- ??See below. SYMPTOMS- ??See below. IMPRESSION- Sinus rhythm with heart rate between 62-122, aveage 88. ?89 PVC'S. No VT. 2 PAC'S. No SVT. ? Health Information Provider- ASHLEE BUTLER ? Reading Physician- Jaison SORIANO ??M.D. ? Released Date Time- 03/23/09 1352 Procedure Note Rosa Soriano P - 06/30/2009 INDICATIONS- Palpitations LENGTH OF TAPE 24 HRS 20 MINS MEDICATION- Oxycodone,Phenergan SLOWEST RATE 62 FASTEST RATE 122 AVERAGE RATE 86 TOTAL PVC'S 89 TOTAL PAC'S 2 VENTRICULAR TACHYCARDIA SUPRAVENTRICULAR TACHYCARDIA Number of episodes 0 Number of episodes 0 Longest run beats Longest run beats Fastest rate Fastest rate OTHER ARRHYTHMIAS- See below. ST T WAVE CHANGES- See below. SYMPTOMS- See below. IMPRESSION- Sinus rhythm with heart rate between 62-122, aveage 88. 89 PVC'S. No VT. 2 PAC'S. No SVT. Health Information Provider- ASHLEE Mendoza Physician- Jaison SOIRANO M.D. Released Date Time- 03/23/09 1352 Yuliet Norman MD [facility] HISTOR[facility] Fi nal Result documented in this encounter Visit Diagnoses Not on filedocumented in this encounter
--- OUTSIDE RECORDS SUMMARY | 2024-03-14 18:24 | XMS_ITS | Encounter Summary ---
Author [place] [address] Care Team Providers Care Sliding Joint Maker Name Role Phone Unavailable Primary Care Provider Unavailabl e Encounter Details Date Type Department Care Team (Late st Contact Info) Description 12/29/2007 Hospital Encounter HST OBSTETRICS FTT Generic, Historical Provider Social History Tobacco [...] 10:45 AM EST Clinical Support [facility] [address] [place] [address] documented as of this encounter Visit Diagnoses Not on filedocumented in this encounter
--- OUTSIDE RECORDS SUMMARY | 2024-03-14 18:24 | XMS_ITS | Encounter Summary ---
Author Organization [place] [address] Care Team Providers Care Machine Builder Name Role Phone Unavailable Primary Care Provider Unavailabl e Encounter Details Date Type Department Care Team (Late st Contact Info) Description 07/13/2007 11:15 AM EDT - 07/13/2007 5:20 PM EDT Hospital Encounter HST E/D BLUE EDG Shane Puckett MD [address] [place] [phone] Social History Tobacco Use Types Packs/Day [...] AM EST Clinical Support [facility] [address] [place] [address] Scheduled Orders Name Type Priority Associated Diagnoses Orde r Schedule PN US EXAM HAMMER SHOP SUPERVISOR Imaging Routine Once for 1 Occur rences starting 06/29/2009 until 06/29/2009, 1 completed documented as of this encounter Procedures Procedure Name Priority Date/Time Associated Diagnosis Comments PN US EXAM HAMMER SHOP SUPERVISOR Routine 07/13/2007 4:23 PM EDT documented in this encounter Results * PN US EXAM HAMMER SHOP SUPERVISOR (07/13/2007 4:23 PM EDT) Anatomical Region Laterality Modality Other 07/13/2007 4:23 PM EDT Narrative 07/14/2007 2:02 PM EDT ? [facility] ? ULTRASOUND EXAMINATION REPORT ISHAN CHILDRESS OB Exam, 07/13/2007 Exam Information Patient Name- ??ISHAN CHILDRESS - ??1980 Age- ??27 yrs Ref Phys- MONAE CASTORENA [facility] Exam Date- 07/13/2007 Procedure- TRANSVAGINAL ULTRASOUND Exam Site[facility] Plurality- 1 LMP- ??06/11/2007 OBHx- [G-(3)] ?F Trm-(1) Pre-() Ab-I-() Ab-S-(1) Ect-() Multi-() Zarina-(1) ?? MEASUREMENTS ??[cm, wks] ?COMPUTATIONS ? Selected GA ?GA- ??4w4d [+/-2.00] ?Method- ??LMP ?SHINE- ??03/17/2008 INDICATIONS FOR SONOGRAPHY Abdominal pain/Cramping. Bleeding/Spotting. Right Lower Quadrant Pain. COMMENTS Medications and Allergies The patient is allergic to aspirin. ??The patient takes the following medication- ??Prevacid. Early OB The uterus is anteverted. ??The left ovary appears normal. ??There is no free fluid in the cul de sac. ??Transvaginal scan does not demonstrate sonographic evidence of an intrauterine . ??The endometrial lining appears thickened measuring 1.87 cm. The right ovary contains a cyst that measures 0.95 x 0[address] Hunt called the ER with the ultrasound findings. Electronically Signed and Authenticated By- Preston Hunt M.D. Chicken Fancier- ??Belia Garrido [facility] Thank You For This Referral ? Floorhand- ANGELA MORLEY ? Reading Radiologist- PRESTON HUNT ??Michelle ? Released Date Time- 07/14/07 1402 Procedure Note Preston Hunt - 06/29/2009 [facility] ULTRASOUND EXAMINATION REPORT ISHAN CHILDRESS OB Exam, 07/13/2007 Exam Information Patient Name- ISHAN CHILDRESS - 1980 Age- 27 yrs Ref Phys- MONAE CASTORENA [facility] Exam Date- 07/13/2007 Procedure- TRANSVAGINAL ULTRASOUND Exam Site- [facility] Plurality- 1 LMP- 06/11/2007 OBHx- [G-(3)] F Trm-(1) Pre-() Ab-I-() Ab-S-(1) Ect-() Multi-() Zarina-(1) MEASUREMENTS [cm, wks] COMPUTATIONS Selected GA GA- 4w4d [+/-2.00] Method- LMP SHINE- 03/17/2008 INDICATIONS FOR SONOGRAPHY Abdominal pain/Cramping. Bleeding/Spotting. Right Lower Quadrant Pain. COMMENTS Medications and Allergies The patient is allergic to aspirin. The patient takes the following medication- Prevacid. Early OB The uterus is anteverted. The left ovary appears normal. There is no free fluid in the cul de sac. Transvaginal scan does not demonstrate sonographic evidence of an intrauterine . The endometrial lining appears thickened measuring 1.87 cm. The right ovary contains a cyst that measures 0.95 x 0.[address] Hunt called the ER with the ultrasound findings. Electronically Signed and Authenticated By- Preston Hunt M.D. Chicken Fancier- Belia Garrido RDMS Thank You For This Referral Floorhand- ANGELA Mendoza Radiologist- PRESTON HUNT M.D. Released Date Time- 07/14/07 1402 us Shane Puckett MD [facility]ISTOR[facility] Final Result documented in this encounter Visit Diagnoses Not on filedocumented in this encounter
--- OUTSIDE RECORDS SUMMARY | 2024-03-14 18:24 | XMS_ITS | Encounter Summary ---
Author Organization [place] [address] Care Team Providers Care Forestry Support Specialist Name Role Phone Unavailable Primary Care Provider Unavailabl e Encounter Details Date Type Department Care Team (Late st Contact Info) Description 03/05/1998 12:55 AM EST - 03/06/1998 3:30 PM EST Hospital Encounter HST 1C Fred Martínez MD Social History Tobacco Use Types Packs/Day Years Used Date Smoking Tobacco: Never Assessed Comments Unknown Sex and Gender Information Value Date Recorded Sex Assigned at Not on file Legal Sex Female 1:46 PM EDT Gender Identity Not on file Sexual Orientation Not on file documented as of this encounter H&P Notes * Unknown, U - 11/15/2009 10:16 PM EDT documented in this encounter Plan of Treatment Upcoming Encounters Date Type Department Care Team (Late st Contact Info) Description 04/24/2024 10:45 AM EST Clinical Support [facility] [address] [place] [address] documented as of this encounter Visit Diagnoses Not on filedocumented in this encounter
--- OUTSIDE RECORDS SUMMARY | 2024-03-14 18:24 | XMS_ITS | Encounter Summary ---
Author Organization [place] [address] Care Team Providers Care Air Hose Coupler Name Role Phone Unavailable Primary Care Provider Unavailabl e Encounter Details Date Type Department Care Team (Late st Contact Info) Description 02/09/1998 6:53 PM EDT - 02/09/1998 11:59 PM EDT Hospital Encounter HST LAB EDG Fred Martínez MD Social History Tobacco [...] Clinical Support [facility] [address] [place] [address] documented as of this encounter Visit Diagnoses Not on filedocumented in this encounter
--- OUTSIDE RECORDS SUMMARY | 2024-03-14 18:24 | XMS_ITS | Encounter Summary ---
Author Organization [place] [address] Care Team Providers Care Revival Clerk Name Role Phone Unavailable Primary Care Provider Unavailabl e Encounter Details Date Type Department Care Team (Late st Contact Info) Description 07/17/2004 5:55 PM EST - 07/17/2004 7:32 PM EST Hospital Encounter HST ER ASAEL Generic, Historical Provider Social History Tobacco Use Types Packs/Day Years Used Date Smoking Tobacco: Never Assessed Comments Unknown Sex and Gender Information Value Date Recorded Sex Assigned at Not on file Legal Sex Female 1:46 PM EDT Gender Identity Not on file Sexual Orientation Not on file documented as of this encounter ED Notes * Unknown, Unknown - 09/13/2009 12:39 PM EDT documented in this encounter Plan of Treatment Upcoming Encounters Date Type Department Care Team (Late st Contact Info) Description 04/24/2024 10:45 AM EST Clinical Support [facility] [address] [place] [phone] Scheduled Orders Name Type Priority Associated Diagnoses Orde r Schedule XR HAND MIN 3 VIEWS RT Imaging Routine Once for 1 Occur rences starting 08/03/2009 until 08/03/2009, 1 completed documented as of this encounter Procedures Procedure Name Priority Date/Time Associated Diagnosis Comments DIAG HAND MIN 3 VIEWS RT Routine 07/17/2004 12:00 AM EST documented in this encounter Results * XR HAND MIN 3 VIEWS RT (07/17/2004 12:00 AM EST) Anatomical Region Laterality Modality Other 07/17/2004 07/17/2004 Narrative 07/17/2004 12:00 AM EST VERIFIED [facility] Reason: ??RIGHT HAND INJURY Dict.Staff: GISELE KNOX Verified By: SUNNY MATOS ? Trice: 07/18/04 ?? 2:41 pm Exams: ??DIAG-HAND MIN 3-VIEWS RT 07-17-04 THREE-VIEW RIGHT HAND: Clinical indication for study: Right hand injury. IMPRESSION: No significant osseous, joint or soft tissue abnormality is seen. HURST:ps end of result Procedure Note Unknown, U - 08/03/2009 VERIFIED [facility] Reason: RIGHT HAND INJURY Dict.Staff: GISELE KNOX Verified By: SUNNY MATOS Trice: 07/18/04 2:41 pm Exams: DIAG-HAND MIN 3-VIEWS RT 07-17-04 THREE-VIEW RIGHT HAND: Clinical indication for study: Right hand injury. IMPRESSION: No significant osseous, joint or soft tissue abnormality is seen. HURST:ps end of result us U Unknown IMG [facility] HISTORICAL Final Result documented in this encounter Visit Diagnoses Not on filedocumented in this encounter
--- OUTSIDE RECORDS SUMMARY | 2024-03-14 18:24 | XMS_ITS | Encounter Summary ---
Author Organization [place] [address] Care Team Providers Care [employer] Name Role Phone Unavailable Primary Care Provider Unavailabl e Encounter Details Date Type Department Care Team (Latest Contact Info) Description 05/07/2010 4:24 AM EST - 05/07/2010 11:59 PM EST Hospital Encounter [facility] PROCESSING [facility] [place] [address] Discharge Disposition: Home or Self Care Social [...] or Self Care documented in this encounter Procedure Notes * Unknown, Unknown - 05/09/2010 4:25 AM EST documented in this encounter Plan of Treatment Upcoming Encounters Date Type Department Care Team (Late st Contact Info) Description 04/24/2024 10:45 AM EST Clinical Support [facility] [address] [place] [id number] documented as of this encounter Procedures Procedure Name Priority Date/Time Associated Diagnosis Comments TONGUE AND GROOVE MACHINE FEEDER CYTOLOGY REPORT Routine 05/07/2010 4 :55 AM EST documented in this encounter Results * TONGUE AND GROOVE MACHINE FEEDER CYTOLOGY REPORT (05/07/2010 4:55 AM EST) Straight Cutter Machine Cytology Report ? PATIENT NAME:ISHAN CHILDRESS ? Straight Cutter Machine Cytology Report ? Accession Number ?Collected Date/Time ? Received Date/Time ? [id number] ? 05/07/10 04:55 EST ?05/09/10 04:55 EST ? GY Specimen Source ? Specimen Vag/Cerv/Endocx?: Vaginal/Cervical/E ndocervical ? Statement of Adequacy ? Satisfactory for Evaluation. ??Transformation Zone Absent. ? Diagnosis ? NEGATIVE FOR INTRAEPITHELIAL LESION OR MALIGNANCY. ? Comment ? The Pap Smear is a screening test that aids in the detection of cervical ? cancer and cancer precursors. ??Both false positive and false negative ? results can occur. ??The test should be used at regular intervals, and ? positive results should be confirmed before definitive therapy. ? Processed using the ImmuRxp MEDSEEK automated cytology screening device ? (Massive Damage). ? Hydroelectric Systems Technician: HK ?05/17/2010 ? Completed by: ??SHANNAN Muniz ?(Electronically signed by) ?05/17/2010 ?P Laboratory [facility] 05/07/2010 4:55 AM EST us Yuliet Norman MD PATHOLOGY ORDERABLES Final Resu lt [facility] [address] [place] [address] documented in this encounter Visit Diagnoses Not on filedocumented in this encounter
--- OUTSIDE RECORDS SUMMARY | 2024-03-14 18:24 | XMS_ITS | Encounter Summary ---
Author Organization [place] [address] Care Team Providers Care Cylinder Press Feeder Name Role Phone Unavailable Primary Care Provider Unavailabl e Encounter Details Date Type Department Care Team (Late st Contact Info) Description 12/19/2008 6:12 PM EDT - 12/19/2008 9:08 PM EDT Hospital Encounter [facility] Genaro Savage MD [address] [place] [address] Social History Tobacco Use Types Packs/Day Years Used Date Smoking Tobacco: Never Assessed Comments Unknown Sex and Gender Information Value Date Recorded Sex Assigned at Not on file Legal Sex Female 1:46 PM EDT Gender Identity Not on file Sexual Orientation Not on file documented as of this encounter ED Notes * Unknown, Unknown - 07/26/2009 6:36 PM EDT documented in this encounter Plan of Treatment Upcoming Encounters Date Type Department Care Team (Late st Contact Info) Description 04/24/2024 10:45 AM EST Clinical Support [facility] [address] [place] [address] Scheduled Orders Name Type Priority Associated Diagnoses Orde r Schedule DIAG ABDOMEN KUB/UP &/OR DECUB & CHEST Imaging Routine Once for 1 Oc currences starting 08/04/2009 until 08/04/2009, 1 completed documented as of this encounter Procedures Procedure Name Priority Date/Time Associated Diagnosis Comments BETA HCG QUALITATIVE KIT TEST, URINE Routine 12/19/2008 7:00 PM EDT LIPASE LEVEL Routine 12/19/2008 7:00 PM EDT DIAG ABDOMEN KUB/UP &/OR DECUB & CHEST Routine 12/19/2008 12:00 AM EDT documented in this encounter Results * BETA HUMAN CHORIONIC GONADOTROPIN QUALITATIVE (12/19/2008 7:00 PM EDT) Beta hCG Qual Negative Negative [facility] VENOUS BLOOD / Unknown 12/19/2008 7:00 PM EDT 12/19/2008 7:00 PM EDT Narrative [facility] - 12/19/2008 7:42 PM EDT AKA:BETA HCG QUALITATIVE: Genaro Savage MD CHEMISTRY ORDERABLES Final Re sult Performing Organization Address [facility] Co de Phone Number [facility] [address] [place] [address]. [address] LAB * LIPASE LEVEL (12/19/2008 7:00 PM EDT) Lipase Lvl 17 10 - 71 U/L [facility] VENOUS BLOOD / Unknown 12/19/2008 7:00 PM EDT 12/19/2008 7:00 PM EDT Narrative [facility] - 12/19/2008 7:24 PM EDT AKA:LIPASE: Genaro Savage MD CHEMISTRY ORDERABLES Final Re sult Performing Organization Address [facility] Co de Phone Number [facility] [address] [place] [address]. [address] LAB * DIAG ABDOMEN KUB/UP &/OR DECUB & CHEST (12/19/2008 12:00 AM EDT) Anatomical Region Laterality Modality Other 12/19/2008 12/19/2008 Narrative 12/19/2008 12:00 AM EDT Name: OBIE Flowers : ??1980 VERIFIED [facility] Reason: ??abd pain in ac 9 Dict.Staff: JANA STEVENS III [id number] Verified By: THEO WALKER ? Trice: 12/20/08 ?? 3:00 pm Exams: ??DIAG-ABD KUB UP/DECUB & PA CXR TWO VIEW CHEST: The heart and lungs are within normal limits. IMPRESSION; ??Normal chest. HILDA/erinn Dictated 12/19/08 at 19:54 hours. end of result Procedure Note Unknown, U - 08/04/2009 Name: OBIE Flowers : 1980 VERIFIED [facility] Reason: abd pain in ac 9 Dict.Staff: JANA STEVENS III [id number] Verified By: THEO WALKER Trice: 12/20/08 3:00 pm Exams: DIAG-ABD KUB UP/DECUB & PA CXR TWO VIEW CHEST: The heart and lungs are within normal limits. IMPRESSION; Normal chest. HILDA/erinn Dictated 12/19/08 at 19:54 hours. end of result us U Unknown IMG SE LW RAD HISTORICAL Final Result documented in this encounter Visit Diagnoses Not on filedocumented in this encounter
--- OUTSIDE RECORDS SUMMARY | 2024-03-14 18:24 | XMS_ITS | Encounter Summary ---
Author Organization [place] [address] Care Team Providers Care Sausage Grinder Name Role Phone Unavailable Primary Care Provider Unavailabl e Encounter Details Date Type Department Care Team (Late st Contact Info) Description 04/20/2008 1:43 AM EST - 04/22/2008 1:07 PM EST Hospital Encounter [facility] Generic, Historical Provider Social History Tobacco [...] 04/24/2024 10:45 AM EST Clinical Support [facility] [address] [place] [phone] documented as of this encounter Visit Diagnoses Not on filedocumented in this encounter
--- OUTSIDE RECORDS SUMMARY | 2024-03-14 18:24 | XMS_ITS | Encounter Summary ---
Author Organization [place] [address] Care Team Providers Care Drug Discovery Informatics Specialist Name Role Phone Unavailable Primary Care Provider Unavailabl e Encounter Details Date Type Department Care Team (Late st Contact Info) Description 03/04/1998 4:54 PM EST - 03/04/1998 5:36 PM EST Hospital Encounter [facility] [...] 04/24/2024 10:45 AM EST Clinical Support [facility] [address] [place] [phone] documented as of this encounter Visit Diagnoses Not on filedocumented in this encounter
--- OUTSIDE RECORDS SUMMARY | 2024-03-14 18:24 | XMS_ITS | Encounter Summary ---
Author Organization [place] [address] Care Team Providers Care Sustainability Director Name Role Phone Yuliet Norman MD Primary Care Provider [phone] Reason for Visit * Reason Comments Chest Pain complains of chest t ightness starting approx 0715. states at work when symptoms started. also reports that left arm feels funny as well. Encounter Details Date Type Department Care Team (Late st Contact Info) Description 11/22/2010 11:01 AM EDT - 11/22/2010 1:01 PM EDT Emergency [facility] [address] [facility] [place] [address] Ryan Vargas MD [address] [place] [phone] Chest discomfort Discharge Disposition: Home or Self Care Social History Tobacco Use Types Packs/Day Years Used Date Smoking Tobacco: Former Comments No Sex and Gender Information Value Date Recorded Sex Assigned at Not on file Legal Sex Female 1:46 PM EDT Gender Identity Not on file Sexual Orientation Not on file documented as of this encounter Last Filed Vital Signs Vital Sign Reading Time Taken Comments Blood Pressure 116/70 11/22/2010 12:55 PM EDT Pulse 97 11/22/2010 12:55 PM EDT Temperature 37.2 ??C (99 ??F) 11/22/2010 10:43 AM EDT Respiratory Rate 16 11/22/2010 12:55 PM EDT Oxygen Saturation 100% 11/22/2010 12:55 PM EDT Inhaled Oxygen Concentration - - Weight 87.1 kg (192 lb) 11/22/2010 10:43 AM EDT Height 165.1 cm (5' 5 ) 11/22/2010 10:43 AM EDT Body Mass Index 31.95 11/22/2010 10:43 AM EDT documented in this encounter Discharge Instructions * Discharge Instructions* Ryan Vargas MD - 11/22/2010 12:37 PM EDT 2 Aleve twice a day for one week Call physician for recheck in 5-7 days Recheck if worse or any other problems documented in this encounter Discharge Disposition Disposition Code Departure Means Destination Home or Self Care documented in this encounter Progress Notes * Unknown, Unknown - 11/22/2010 11:10 AM EDT * Unknown, Unknown - 11/22/2010 11:10 AM EDT documented in this encounter ED Notes * Lynne Hill RN - 11/22/2010 1:00 PM EDT Discharge instructions reviewed with patient. Verbalized understanding of same. Prescription given:n/a. Patient left the emergency room ambulatory. Color natural. Skin warm and dry. Pt in good condition at discharge. * Ryan Vargas MD - 11/22/2010 11:11 AM EDT Chief Complaint Patient presents with ??? Chest Pain complains of chest tightness starting approx 0715. states at work when symptoms started. also reports that left arm feels funny as well. HPI Comments: 30-year-old female presents for evaluation of a little tightness she feels in her chest associated with a little short of breath. This has been going on for about 4 hours. No coughing, no fever. She states she's never had this before. She denies any stress. No radiation of the discomfort. She felt dizzy and lightheaded over the last couple days. This is not worse with exertion. Patient works in [employer] but does not think she's done anything new. 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 She is worried that herliver enzymes may be elevated. She presents here for further evaluation and treatment. Patient has no history of diabetes, hypertension, previous cardiac or respiratory problems. No history of elevated cholesterol. Patient is a nonsmoker. Her mother had an VT and has history of congestive heart failure The history is provided by the patient. Allergies Allergen Reactions ??? Aspirin Home Medications: Prior to Admission medications Not on File Past Medical History: Past Medical History Diagnosis Date ??? 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 She does not have any smokeless tobacco history on file. Family History: History reviewed. No pertinent family history. Surgical History: Past Surgical History Procedure Date ??? Abdomen surgery for bile duct Review of Systems All other systems reviewed and are negative. Blood pressure 117/75, pulse 110, temperature 99 ??F (37.2 ??C), temperature source Oral, resp. rate 18, height 5' 5 (1.651 m), weight 192 lb (87.091 kg), last menstrual period 11/07/2010, SpO2 97%. Physical Exam Nursing note and vitals reviewed. Constitutional: She is oriented. She appears well-developed and well-nourished. No distress. HENT: Mouth/Throat: Oropharynx is clear and moist. Eyes: Conjunctivae and extraocular motions are normal. Pupils are equal, round, and reactive to light. Neck: Normal range of motion. Neck supple. Cardiovascular: Normal rate and regular rhythm. Exam reveals no gallop and no friction rub. No murmur heard. Pulmonary/Chest: Effort normal and breath sounds normal. Abdominal: Soft. Bowel sounds are normal. She exhibits no distension. No tenderness. Musculoskeletal: She exhibits no edema and no tenderness. Lymphadenopathy: She has no cervical adenopathy. Neurological: She is alert and oriented. Skin: Skin is warm and dry. No rash noted. Psychiatric: She has a normal mood and affect. Procedures Radiology/EKG/Labs: EKG reveals a right bundle branch pattern sinus rhythm. This is essentially unchanged from an EKG from February. No acute abnormalities are noted. This was interpreted by myself Results for orders placed during the hospital encounter of 11/22/10 CBC WITH AUTO DIFF Component Value Range ??? WBC 11.5 (*) 3.8-10.8 (x10(3)/mcL) ??? RBC 4.67 3.80-5.10 (x10(6)/mcL) ??? Hgb 13.3 11.7-15.5 (gm/dL) ??? Hct 39.7 35.0-45.0 (%) ??? MCV 85.0 80.0-100.0 (fL) ??? MCH 28.4 27.0-33.0 (pg) ??? MCHC 33.4 32.0-36.0 (gm/dL) ??? RDW 12.8 11.0-15.0 (%) ??? Platelet 271 140-400 (x10(3)/mcL) ??? MPV 8.1 7.5-11.5 (fL) BASIC METABOLIC PANEL Component Value Range ??? Sodium 137 135-146 (mmol/L) ??? Potassium 4.0 3.5-5.3 (mmol/L) ??? Chloride 104 98-110 (mmol/L) ??? Total CO2 26 21-33 (mmol/L) ??? Anion Gap 7 7-16 (mmol/L) ??? Calcium 9.4 8.6-10.2 (mg/dL) ??? Glucose Lvl 93 65-99 (mg/dL) ??? BUN 8 7-25 (mg/dL) ??? Creatinine 0.7 0.5-1.2 (mg/dL) ? ? GFR Afr Am >60 - ? ? GFR Non Afr Am >60 - TROPONIN-I Component Value Range ? ? Troponin-I <0.01 0.01-0.05 (ng/mL) AMYLASE LEVEL Component Value Range ??? Amylase Lvl 34 21-101 (IU/L) LIPASE LEVEL Component Value Range ??? Lipase Lvl 6 (*) 10-71 (IU/L) HEPATIC FUNCTION PANEL Component Value Range ??? Total Protein 7.3 6.2-8.3 (gm/dL) ??? Albumin 4.4 3.6-5.1 (gm/dL) ??? Bili Direct 0.2 0.0-0.2 (mg/dL) ??? Bili Total 1.0 0.2-1.2 (mg/dL) ??? AST 19 10-30 (IU/L) ??? ALT 20 6-40 (IU/L) ??? Alk Phos 72 33-115 (IU/L) D-DIMER Component Value Range ? ? D-Dimer <230 - (ng/mL) XR CHEST PA AND LATERAL Narrative: PROCEDURE: PA and lateral chest, 11/22/2010. INDICATION: Chest pain. FINDINGS: PA and lateral chest is compared to previous exam 02/28/2009. Heart size and pulmonary vascularity are normal. No infiltrates, effusion, or pneumothorax. Impression: IMPRESSION: No acute findings in the chest. AUTO DIFF Component Value Range ??? Neut Percent 85.5 (*) 40.0-80.0 (%) ??? Lymph Percent 6.7 (*) 15.0-45.0 (%) ??? [place] Percent 5.6 0.0-12.0 (%) ??? Eos Percent 0.3 0.0-8.0 (%) ??? Baso Percent 1.9 (*) 0.0-1.0 (%) ??? Neut# 9.83 (*) 1.50-7.80 (x10(3)/mcL) ??? Lymph# 0.77 (*) 0.85-3.90 (x10(3)/mcL) ??? [place]# 0.64 0.20-0.95 (x10(3)/mcL) ??? Eos# 0.03 0.01-0.50 (x10(3)/mcL) ??? Baso# 0.22 (*) 0.00-0.20 (x10(3)/mcL) ED Course: Appropriate laboratory and radiology studies reviewed Patient seen and evaluated. She seems very comfortable. She has negative troponin, negative EKG, and negative d-dimer. Patient does have a quite physical job. I told her to use a couple of the twice a day and that event that this could be musculoskeletal.. I do not think this is ischemic cardiac disease. Patient is somewhat concerned about this due to her family history. I told her she probably discuss this with her family physician about the possibilities of a stress test. Recheck if worse or any other problem ED Clinical Impression: Acute chest discomfort Critical Care time Condition at Discharge/Transfer from Department: Stable Ryan Vargas 11/22/10 1236 documented in this encounter Miscellaneous Notes * Miscellaneous - Unknown, Unknown - 03/21/2011 11:53 AM EST documented in this encounter Plan of Treatment Upcoming Encounters Date Type Department Care Team (Late st Contact Info) Description 04/24/2024 10:45 AM EST Clinical Support [facility] [address] [place] [address] documented as of this encounter Procedures Procedure Name Priority Date/Time Associated Diagnosis Comments XR CHEST PA AND LATERAL STAT 11/22/2010 11:30 AM EDT DIFFERENTIAL STAT 11/22/2010 11:22 AM EDT TROPONIN-I STAT 11/22/2010 11:22 AM EDT D-DIMER STAT 11/22/2010 11:22 AM EDT CBC WITH DIFF STAT 11/22/2010 11:22 AM EDT LIPASE LEVEL STAT 11/22/2010 11:22 AM EDT AMYLASE LEVEL STAT 11/22/2010 11:22 AM EDT HEPATIC FUNCTION PANEL STAT 11/22/2010 11:22 AM EDT BASIC METABOLIC PANEL STAT 11/22/2010 11:22 AM EDT EK EKG 12 LEAD STAT 11/22/2010 10:58 AM EDT documented in this encounter Results * XR CHEST PA AND LATERAL (11/22/2010 11:30 AM EDT) Anatomical Region Laterality Modality Chest Radiographic Kristi ging 11/22/2010 11:1 4 AM EDT Impressions 11/22/2010 11:39 AM EDT IMPRESSION: No acute findings in the chest. Narrative 11/22/2010 11:39 AM EDT PROCEDURE: PA and lateral chest, 11/22/2010. INDICATION: Chest pain. FINDINGS: PA and lateral chest is compared to previous exam 02/28/2009. Heart size and pulmonary vascularity are normal. No infiltrates, effusion, or pneumothorax. Procedure Note Alvin Saldana - 11/22/2010 PROCEDURE: PA and lateral chest, 11/22/2010. INDICATION: Chest pain. FINDINGS: PA and lateral chest is compared to previous exam 02/28/2009.Heart size and pulmonary vascularity are normal. No infiltrates, effusion, orpneumothorax. IMPRESSION: No acute findings in the chest. us Ryan Vargas MD IMG DIAGNOSTIC IMAGING ORDERAB LES Final Result * (ABNORMAL) AUTO DIFF (11/22/2010 11:22 AM EDT) Neut Percent 85.5(H) 40.0 - 80.0 % [facility] Lymph Percent 6.7(L) 15.0 - 45.0 % [facility] [place] Percent 5.6 0.0 - 12.0 % [facility] Eos Percent 0.3 0.0 - 8.0 % [facility] Baso Percent 1.9(H) 0.0 - 1.0 % [facility] Neut# 9.83(H) 1.50 - 7.80 x10(3)/mcL [facility] Lymph# 0.77(L) 0.85 - 3.90 x10(3)/mcL [facility] [place]# 0.64 0.20 - 0.95 x10(3)/mcL [facility] Eos# 0.03 0.01 - 0.50 x10(3)/mcL [facility] Baso# 0.22(H) 0.00 - 0.20 x10(3)/mcL [facility] Blood specimen (specimen) 11/22/2010 11:22 AM EDT 11/22/2010 11:28 AM EDT us Ryan Vargas MD HEMATOLOGY ORDERABLES Final Re sult Performing Organization Address [facility] de Phone Number [facility] [address] [place] [address] * D-DIMER (11/22/2010 11:22 AM EDT) [facility] D-Dimer <230 <=230 ng/mL [facility] Comment: This test has been clinically validated by the bookmaker map and approved by the FDA for exclusion of pulmonary embolism (PE) or deep vein thrombosis (DVT) in patients with a low clinical risk assessment. ?? The cutoff for exclusion of PE and DVT is < 230 ng/mL. Increased levels of D-dimer are associated with PE, DVT, disseminated intravascular coagulation, malignancies, inflammation, sepsis, surgery, trauma, , and advanced patient age. [CHRISTIANNE 2006 11:295(2): 199-207] Blood specimen (specimen) UPPER LIMB STRUCTURE / Unknown 11/22/2010 11:22 AM EDT 11/22/2010 11:28 AM EDT Ryan Vargas MD HEMATOLOGY ORDERABLES Final Re sult Performing Organization Address [facility] de Phone Number [facility] [address] [place] [address] * HEPATIC FUNCTION PANEL (11/22/2010 11:22 AM EDT) [facility] Total Protein 7.3 6.2 - 8.3 gm/dL [facility] Albumin 4.4 3.6 - 5.1 gm/dL [facility] Bili Direct 0.2 0.0 - 0.2 mg/dL [facility] Bili Total 1.0 0.2 - 1.2 mg/dL [facility] AST 19 10 - 30 IU/L [facility] ALT 20 6 - 40 IU/L [facility] Alk Phos 72 33 - 115 IU/L [facility] Blood specimen (specimen) UPPER LIMB STRUCTURE / Unknown 11/22/2010 11:22 AM EDT 11/22/2010 11:28 AM EDT Ryan Vargas MD CHEMISTRY ORDERABLES Final Res ult Performing Organization Address [facility] Co de Phone Number [facility] [address] [place] [address] * (ABNORMAL) LIPASE LEVEL (11/22/2010 11:22 AM EDT) Lipase Lvl 6(L) 10 - 71 IU/L [facility] Blood specimen (specimen) UPPER LIMB STRUCTURE / Unknown 11/22/2010 11:22 AM EDT 11/22/2010 11:28 AM EDT Ryan Vargas MD CHEMISTRY ORDERABLES Final Res ult Performing Organization Address [facility] de Phone Number [facility] [address] [place] [address] * AMYLASE LEVEL (11/22/2010 11:22 AM EDT) Pathologist [facility] Amylase Lvl 34 21 - 101 IU/L [facility] Blood specimen (specimen) UPPER LIMB STRUCTURE / Unknown 11/22/2010 11:22 AM EDT 11/22/2010 11:28 AM EDT Ryan Vargas MD CHEMISTRY ORDERABLES Final Res ult Performing Organization Address [facility] de Phone Number [facility] [address] [place] [address] * TROPONIN-I (11/22/2010 11:22 AM EDT) Troponin-I <0.01 0.01 - 0.05 ng/mL [facility] Comment: Troponin Level ? Significance ?< 0.01 ng/mL ? Negative 0.01 - 0.05 ng/mL ?Detectable troponin of unknown significance ??>= 0.06 ?Possible myocardial injury Note: ??A variety of mechanisms may cause myocardial injury. ??The diagnosis of myocardial infarction depends both on elevated levels of troponin and on clinical data that support ischemia as a cause. ??It is not possible to reliably discriminate ischemic from nonischemic causes by a single cutoff level. ??However, a rising or falling pattern of troponin values is helpful in discriminating acute injury from chronic causes. Blood specimen (specimen) UPPER LIMB STRUCTURE / Unknown 11/22/2010 11:22 AM EDT 11/22/2010 11:28 AM EDT us Ryan Vargas MD CHEMISTRY ORDERABLES Final Res ult [facility] [address] [place] [address] * BASIC METABOLIC PANEL (11/22/2010 11:22 AM EDT) Sodium 137 135 - 146 mmol/L [facility] Potassium 4.0 3.5 - 5.3 mmol/L [facility] Chloride 104 98 - 110 mmol/L [facility] Total CO2 26 21 - 33 mmol/L [facility] Anion Gap 7 7 - 16 mmol/L [facility] Calcium 9.4 8.6 - 10.2 mg/dL [facility] Glucose Lvl 93 65 - 99 mg/dL [facility] BUN 8 7 - 25 mg/dL [facility] Creatinine 0.7 0.5 - 1.2 mg/dL [facility] GFR Afr Am >60 [facility] Comment: GFR is estimated using creatinine, age, gender, and race. ??GFR has been validated for patients between 18 and 70 years of age. GFR has not been validated for women, patients with serious comorbid conditions, or persons with extremes of body size, muscle mass, or nutritional status. ??For additional information: ??www.kidney.org. Chronic kidney disease stage ? GFR (ml/min/1.73 square meters) ? Stage 3 ? 30 - 59 ? Stage 4 ? 15 - 29 ? Stage 5 ? 14 or less GFR Non Afr Am >60 [facility] Blood specimen (specimen) UPPER LIMB STRUCTURE / Unknown 11/22/2010 11:22 AM EDT 11/22/2010 11:28 AM EDT us Ryan Vargas MD CHEMISTRY ORDERABLES Edited [facility] [address] [place] [address] * (ABNORMAL) CBC WITH AUTO DIFF (11/22/2010 11:22 AM EDT) WBC 11.5(H) 3.8 - 10.8 x10(3)/mcL [facility] RBC 4.67 3.80 - 5.10 x10(6)/mcL [facility] Hgb 13.3 11.7 - 15.5 gm/dL [facility] Hct 39.7 35.0 - 45.0 % [facility] MCV 85.0 80.0 - 100.[address] [facility] MCH 28.4 27.0 - 33.[address] [facility] MCHC 33.4 32.0 - 36.0 gm/dL [facility] RDW 12.8 11.0 - 15.0 % [facility] Platelet 271 140 - 400 x10(3)/mcL [facility] MPV 8.1 7.5 - 11.5 fL [facility] Blood specimen (specimen) UPPER LIMB STRUCTURE / Unknown 11/22/2010 11:22 AM EDT 11/22/2010 11:28 AM EDT Ryan Vargas MD HEMATOLOGY ORDERABLES Final Re sult [facility] [address] [place] [address] * EK EKG 12 LEAD (11/22/2010 10:58 AM EDT) PYRAMIS LINK PYRAMIS Anatomical Region Laterality Modality Electrocardiogra phy 11/22/2010 10:5 8 AM EDT Emergency Care Physicians [facility] I MG ECG ORDERABLES Final Result documented in this encounter Visit Diagnoses Diagnosis Chest discomfort Other chest pain documented in this encounter Care Teams Sustainability Director Relationship Specialty Start Date End Date Yuliet Norman MD PCP - General 11/22/10 09/12/14 documented as of this encounter
--- OUTSIDE RECORDS SUMMARY | 2024-03-14 18:24 | XMS_ITS | Encounter Summary ---
Author Organization [place] [address] Care Team Providers Care [place] Redevelopment Specialist Name Role Phone Unavailable Primary Care Provider Unavailabl e Encounter Details Date Type Department Care Team (Late st Contact Info) Description 02/06/2005 11:08 PM EDT - 02/07/2005 2:10 AM EDT Hospital Encounter HST E/D RED EDG Eric Tavares MD [address] [place] [address] [place] [address] Social History Tobacco Use Types [...] EST Clinical Support [facility] [address] [place] [address] Scheduled Orders Name Type Priority Associated Diagnoses Orde r Schedule EK EKG REG Imaging Cardiology Routine Once f or 1 Occurrences starting 06/27/2009 until 06/27/2009, 1 completed documented as of this encounter Procedures Procedure Name Priority Date/Time Associated Diagnosis Comments EK EKG REG Routine 02/06/2005 11:31 PM EDT documented in this encounter Results * EK EKG REG (02/06/2005 11:31 PM EDT) Anatomical Region Laterality Modality Other 02/06/2005 11:3 1 PM EDT Narrative 02/07/2005 3:17 PM EDT Sinus rhythm Incomplete RBBB Nonspecific St and/or T-wave abnormality inf leads Borderline ECG ? Levar GOEL ? Reading Mohit GODDARD ??MFazalDFazal ? Released Date Time- 02/07/051516 ? Levar GOEL ? Reading Mohit HERRERA ? Released Date Time- 02/07/051516 Procedure Mat Gutierrez - 06/27/2009 Sinus rhythm Incomplete RBBB Nonspecific St and/or T-wave abnormality inf leads Borderline ECG Levar GOEL Reading Mohit GODDARD M.D. Released Date Time- 02/07/051516 Levar HERRERA MD Released Date Time- 02/07/051516 us Eric Tavares MD [facility] Final Result documented in this encounter Visit Diagnoses Not on filedocumented in this encounter
--- OUTSIDE RECORDS SUMMARY | 2024-03-14 18:24 | XMS_ITS | Encounter Summary ---
Author Organization [place] [address] Care Team Providers Care Building Mechanic Name Role Phone Unavailable Primary Care Provider Unavailabl e Encounter Details Date Type Department Care Team (Late st Contact Info) Description 03/25/2003 9:13 PM EST - 03/25/2003 9:53 PM EST Hospital Encounter HST EPIC CON UNK COV Annamarie Short MD [address] [place] [phone] Social History Tobacco Use Types Packs/Day [...] 04/24/2024 10:45 AM EST Clinical Support [facility] [address] [place] [address] documented as of this encounter Visit Diagnoses Not on filedocumented in this encounter
--- OUTSIDE RECORDS SUMMARY | 2024-03-14 18:24 | XMS_ITS | Encounter Summary ---
Author Organization [place] [address] Care Team Providers Care Superintendent Drilling And Production Name Role Phone Unavailable Primary Care Provider Unavailabl e Encounter Details Date Type Department Care Team (Late st Contact Info) Description 03/12/2007 10:17 AM EST - 03/12/2007 11:53 AM EST Hospital Encounter HST EPIC CON UNK COV Shane Puckett MD [address] [place] [phone] Social History Tobacco Use Types Packs/Day [...] Clinical Support [facility] [address] [place] [address] Scheduled Orders Name Type Priority Associated Diagnoses Orde r Schedule EK EKG REG Imaging Cardiology Routine Once f or 1 Occurrences starting 06/28/2009 until 06/28/2009, 1 completed documented as of this encounter Procedures Procedure Name Priority Date/Time Associated Diagnosis Comments EK EKG REG Routine 03/12/2007 10:52 AM EST documented in this encounter Results * EK EKG REG (03/12/2007 10:52 AM EST) Anatomical Region Laterality Modality Other 03/12/2007 10:5 2 AM EST Narrative 03/13/2007 1:08 PM EST Probable accelerated junctional rhythm Possible right ventricular hypertrophy ??Anterior T wave changes are nonspecific Repolarization changes may be partly due to rate Nonspecific St and/or T-wave abnormality ??generalized new from previous Abnormal ECG ? Levar BRYANT ? Reading RadiologistMarilynn BRYANT ? Released Date Time- 03/13/07 1308 Procedure Note Duran Sales - 06/28/2009 Probable accelerated junctional rhythm Possible right ventricular hypertrophy Anterior T wave changes are nonspecific Repolarization changes may be partly due to rate Nonspecific St and/or T-wave abnormality generalized new from previous Abnormal ECG Data Coordinatorjerson BRYANT MD Reading RadiologistMarilynn BRYANT MD Released Date Time- 03/13/07 1308 Shane Puckett MD [facility] HIST[facility] Final Result documented in this encounter Visit Diagnoses Not on filedocumented in this encounter
--- OUTSIDE RECORDS SUMMARY | 2024-03-14 18:24 | XMS_ITS | Encounter Summary ---
Author Organization [place] [address] Care Team Providers Care State [employer] Agent Team Member Name Role Phone Unavailable Primary Care Provider Unavailabl e Encounter Details Date Type Department Care Team (Late st Contact Info) Description 09/20/1997 6:14 PM EDT - 10/28/1997 Hospital Encounter HST WOS EDG Fred Martínez [...] Clinical Support [facility] [address] [place] [phone] documented as of this encounter Visit Diagnoses Not on filedocumented in this encounter
--- OUTSIDE RECORDS SUMMARY | 2024-03-14 18:24 | XMS_ITS | Encounter Summary ---
Author [place] [address] Care Team Providers Care Truck Unloader Name Role Phone Unavailable Primary Care Provider Unavailabl e Encounter Details Date Type Department Care Team (Late st Contact Info) Description 06/06/2006 11:38 AM EST - 06/06/2006 1:04 PM EST Hospital Encounter HST ER ASAEL [...] encounter ED Notes * Unknown, Unknown - 08/17/2009 12:47 AM EDT documented in this encounter Plan of Treatment Upcoming Encounters Date Type Department Care Team (Late st Contact Info) Description 04/24/2024 10:45 AM EST Clinical Support [facility] [address] [place] [phone] Scheduled Orders Name Type Priority Associated Diagnoses Orde r Schedule XR WRIST, MIN 3 VIEWS RT Imaging Routine Once for 1 Occur rences starting 08/04/2009 until 08/04/2009, 1 completed documented as of this encounter Procedures Procedure Name Priority Date/Time Associated Diagnosis Comments DIAG WRIST, MIN 3 VIEWS RT Routine 06/06/2006 12:00 AM EST documented in this encounter Results * XR WRIST, MIN 3 VIEWS RT (06/06/2006 12:00 AM EST) Anatomical Region Laterality Modality Other 06/06/2006 06/06/2006 Narrative 06/06/2006 12:00 AM EST VERIFIED [facility] Reason: ??fall Dict.Staff: SUNNY ZHANG Verified By: SUNNY ZHANG ?Trice: 06/06/06 ?? 4:29 pm Exams: ??DIAG-WRIST MIN 3-VIEWS RT RIGHT WRIST (FOUR VIEWS): HISTORY: ??Traumatic fall. ??Pain. Normal anatomic alignment. ??No focal displaced fracture or degenerative change. ??Minimal dorsal soft tissue swelling. IMPRESSION: Unremarkable right wrist. EMERSON:ivana end of result Procedure Note Unknown, U - 08/04/2009 VERIFIED [facility] Reason: fall Dict.Staff: SUNNY ZAHNG Verified By: SUNNY ZHANG Trice: 06/06/06 4:29 pm Exams: DIAG-WRIST MIN 3-VIEWS RT RIGHT WRIST (FOUR VIEWS): HISTORY: Traumatic fall. Pain. Normal anatomic alignment. No focal displaced fracture or degenerative change. Minimal dorsal soft tissue swelling. IMPRESSION: Unremarkable right wrist. EMERSON:ivana end of result us U Unknown IMG [facility] RAD HISTORICAL Final Result documented in this encounter Visit Diagnoses Not on filedocumented in this encounter
--- OUTSIDE RECORDS SUMMARY | 2024-03-14 18:24 | XMS_ITS | Encounter Summary ---
Author [place] [address] Care Team Providers Care Alodize Machine Helper Name Role Phone Unavailable Primary Care Provider Unavailabl e Encounter Details Date Type Department Care Team (Late st Contact Info) Description 07/14/2008 Hospital Encounter HST MEDICINE FTT Generic, Historical Provider Social History Tobacco [...] 04/24/2024 10:45 AM EST Clinical Support [facility] [address] [place] [address] documented as of this encounter Visit Diagnoses Not on filedocumented in this encounter
--- OUTSIDE RECORDS SUMMARY | 2024-03-14 18:24 | XMS_ITS | Encounter Summary ---
Author Organization [place] [address] Care Team Providers Care Intertype Operator Name Role Phone Unavailable Primary Care Provider Unavailabl e Encounter Details Date Type Department Care Team (Late st Contact Info) Description 10/20/2008 Hospital Encounter HST MEDICIN ASAEL Generic, Historical [...] 04/24/2024 10:45 AM EST Clinical Support [facility] [address] [place] [phone] Scheduled Orders Name Type Priority Associated Diagnoses Orde r Schedule US TRANSVAGINAL Imaging Routine Once for 1 Occurrences starting 08/04/2009 until 08/04/2009, 1 completed US PELVIS NON-OB COMPLETE Imaging Routine Once for 1 Occur rences starting 08/04/2009 until 08/04/2009, 1 completed documented as of this encounter Procedures Procedure Name Priority Date/Time Associated Diagnosis Comments US TRANSVAGINAL Routine 10/20/2008 12:00 AM EDT US PELVIS NON-OB COMPLETE Routine 10/20/2008 12:00 AM EDT documented in this encounter Results * US PELVIS NON-OB COMPLETE (10/20/2008 12:00 AM EDT) Anatomical Region Laterality Modality Other 10/20/2008 10/20/2008 Narrative 10/20/2008 12:00 AM EDT Name: OBIE Flowers : ??1980 VERIFIED [facility] Reason: ??PAIN US PELVIC Dict.Staff: THEO WALKER [id number] Verified By: DARNELL PAK ?Trice: 10/22/08 ??10:14 am Exams: ??US-TRANSVAGINAL PELVIC ULTRASOUND: 10/20/08 HISTORY: PELVIC PAIN. BECAUSE OF THE LIMITED ADNEXAL VISUALIZATION ON THE TRANSABDOMINAL IMAGING, TRANSVAGINAL IMAGING WAS SUBSEQUENTLY PERFORMED. Transabdominal and transvaginal imaging performed. The uterus is 8.1 x 4. x 5.1cm with the endometrial thickness, 7mm. The left ovary is 1.6 x 1.4 x 2.3cm while the right is 3 x 2.4 x 2cm. ??Bilateral follicular cysts are present. No free fluid is identified. OPINION: NORMAL PELVIC ULTRSOUND. AARON/singh DICTATED ON OCTOBER 20, 2008 @ 15:21 ??HOURS. end of result Procedure Note Unknown, U - 08/04/2009 Name: OBIE Flowers : 1980 VERIFIED [facility] Reason: PAIN US PELVIC Dict.Staff: THEO WALKER [id number] Verified By: DARNELL PAK Trice: 10/22/08 10:14 am Exams: US-TRANSVAGINAL PELVIC ULTRASOUND: 10/20/08 HISTORY: PELVIC PAIN. BECAUSE OF THE LIMITED ADNEXAL VISUALIZATION ON THE TRANSABDOMINAL IMAGING, TRANSVAGINAL IMAGING WAS SUBSEQUENTLY PERFORMED. Transabdominal and transvaginal imaging performed. The uterus is 8.1 x 4. x 5.1cm with the endometrial thickness, 7mm. The left ovary is 1.6 x 1.4 x 2.3cm while the right is 3 x 2.4 x 2cm. Bilateral follicular cysts are present. No free fluid is identified. OPINION: NORMAL PELVIC ULTRSOUND. AARON/singh DICTATED ON OCTOBER 20, 2008 @ 15:21 HOURS. end of result us U Unknown IMG [facility] RAD HISTORICAL Final Result * US TRANSVAGINAL (10/20/2008 12:00 AM EDT) Anatomical Region Laterality Modality Other 10/20/2008 10/20/2008 Narrative 10/20/2008 12:00 AM EDT Name: OBIE Flowers : ??1980 VERIFIED [facility] Reason: ??PAIN US PELVIC Dict.Staff: THEO WALKER [id number] Verified By: DARNELL PAK ?Trice: 10/22/08 ??10:14 am Exams: ??US-TRANSVAGINAL PELVIC ULTRASOUND: 10/20/08 HISTORY: PELVIC PAIN. BECAUSE OF THE LIMITED ADNEXAL VISUALIZATION ON THE TRANSABDOMINAL IMAGING, TRANSVAGINAL IMAGING WAS SUBSEQUENTLY PERFORMED. Transabdominal and transvaginal imaging performed. The uterus is 8.1 x 4. x 5.1cm with the endometrial thickness, 7mm. The left ovary is 1.6 x 1.4 x 2.3cm while the right is 3 x 2.4 x 2cm. ??Bilateral follicular cysts are present. No free fluid is identified. OPINION: NORMAL PELVIC ULTRSOUND. AARON/singh DICTATED ON OCTOBER 20, 2008 @ 15:21 ??HOURS. end of result Procedure Note Unknown, U - 08/04/2009 Name: OBIE Flowers : 1980 VERIFIED [facility] Reason: PAIN US PELVIC Dict.Staff: THEO WALKER [id number] Verified By: DARNELL PAK Trice: 10/22/08 10:14 am Exams: US-TRANSVAGINAL PELVIC ULTRASOUND: 10/20/08 HISTORY: PELVIC PAIN. BECAUSE OF THE LIMITED ADNEXAL VISUALIZATION ON THE TRANSABDOMINAL IMAGING, TRANSVAGINAL IMAGING WAS SUBSEQUENTLY PERFORMED. Transabdominal and transvaginal imaging performed. The uterus is 8.1 x 4. x 5.1cm with the endometrial thickness, 7mm. The left ovary is 1.6 x 1.4 x 2.3cm while the right is 3 x 2.4 x 2cm. Bilateral follicular cysts are present. No free fluid is identified. OPINION: NORMAL PELVIC ULTRSOUND. AARON/singh DICTATED ON OCTOBER 20, 2008 @ 15:21 HOURS. end of result us U Unknown [facility] RAD HISTORICAL Final Result documented in this encounter Visit Diagnoses Not on filedocumented in this encounter
--- OUTSIDE RECORDS SUMMARY | 2024-03-14 18:24 | XMS_ITS | Encounter Summary ---
Author Organization [place] [address] Care Team Providers Care Authorization Rep Name Role Phone Unavailable Primary Care Provider Unavailabl e Encounter Details Date Type Department Care Team (Late st Contact Info) Description 12/26/2005 12:01 AM EDT - 12/26/2005 11:59 PM EDT Hospital Encounter HST RADIOLOGY [facility] [address] [address] Social History Tobacco Use Types Packs/Day Years [...] 04/24/2024 10:45 AM EST Clinical Support [facility] [address] [place] [address] Scheduled Orders Name Type Priority Associated Diagnoses Orde r Schedule US PELVIS/CARBIDER FIELD RESEARCH ASSISTANT Imaging Routine Once fo r 1 Occurrences starting 06/28/2009 until 06/28/2009, 1 completed documented as of this encounter Procedures Procedure Name Priority Date/Time Associated Diagnosis Comments US PELVIS/CARBIDER FIELD RESEARCH ASSISTANT Routine 12/26/2005 4:2 9 PM EDT documented in this encounter Results * US PELVIS/CARBIDER FIELD RESEARCH ASSISTANT (12/26/2005 4:29 PM EDT) Anatomical Region Laterality Modality Other 12/26/2005 4:29 PM EDT Narrative 12/26/2005 4:39 PM EDT PT IN US WAITING AREA Transabdominal and transvaginal pelvic ultrasound- 12/26/2005. Comparison- 12/12/2004. Indication- 25-year-old female with ovarian cyst. Findings- Uterus measures 8.3 cm in length x 4.4 cm AP diameter x 5.4 cm transverse dimension. Endometrial stripe measures 0.7 cm at the fundus. No focal myometrial defects. Right adnexa measures 2.6 x 2.1 x 2.2 cm. No solid or cystic mass lesions. Left adnexa measures 2.3 x 1.6 x 1.7 cm. It contains a number of small follicles. No free fluid is in the pelvis. No gross abnormality of bladder. Impression- ??Resolution of prior right adnexal 2.2 cm hypoechoic area. Today's exam is normal. ? Engineering Production Liaison- ASHLEE HATCH ? [place] Radiologist- SAQIB ANAND ??. ? Released Date Time- 12/27/05 0729 Procedure Note Saqib Anand - 06/28/2009 PT IN US WAITING AREA Transabdominal and transvaginal pelvic ultrasound- 12/26/2005. Comparison- 12/12/2004. Indication- 25-year-old female with ovarian cyst. Findings- Uterus measures 8.3 cm in length x 4.4 cm AP diameter x 5.4 cm transverse dimension. Endometrial stripe measures 0.7 cm at the fundus. No focal myometrial defects. Right adnexa measures 2.6 x 2.1 x 2.2 cm. No solid or cystic mass lesions. Left adnexa measures 2.3 x 1.6 x 1.7 cm. It contains a number of small follicles. No free fluid is in the pelvis. No gross abnormality of bladder. Impression- Resolution of prior right adnexal 2.2 cm hypoechoic area. Today's exam is normal. Engineering Production Liaison- ASHLEE HATCH [place] Radiologist- SAQIB ANAND MD. Released Date Time- 12/27/05 0729 [facility] RAD HISTORICAL Final Result documented in this encounter Visit Diagnoses Not on filedocumented in this encounter
--- OUTSIDE RECORDS SUMMARY | 2024-03-14 18:24 | XMS_ITS | Encounter Summary ---
Author Organization [place] [address] Care Team Providers Care Insurance Agency Sales Manager Name Role Phone Unavailable Primary Care Provider Unavailabl e Encounter Details Date Type Department Care Team (Late st Contact Info) Description 02/13/2009 5:58 PM EDT - 02/13/2009 11:49 PM EDT Hospital Encounter HST ER ASAEL Matthias Delanye MD [address] [place] [address] Rehana Bird PA-C [address] [place] [address] Social History Tobacco Use Types Packs/Day Years Used Date Smoking Tobacco: Never Assessed Comments Unknown Sex and Gender Information Value Date Recorded Sex Assigned at Not on file Legal Sex Female 1:46 PM EDT Gender Identity Not on file Sexual Orientation Not on file documented as of this encounter ED Notes * Unknown, Unknown - 07/25/2009 10:03 AM EDT documented in this encounter Plan of Treatment Upcoming Encounters Date Type Department Care Team (Late st Contact Info) Description 04/24/2024 10:45 AM EST Clinical Support [facility] [address] [place] [address] Scheduled Orders Name Type Priority [...] BETA HCG QUALITATIVE KIT TEST, URINE Routine 02/13/2009 6:31 PM EDT LIPASE LEVEL Routine 02/13/2009 6:[address] PELVIS W CONTRAST Routine 02/13/2009 12:[address] ABDOMEN W CONTRAST Routine 02/13/2009 12:00 AM EDT documented in this encounter Results * BETA HUMAN CHORIONIC GONADOTROPIN QUALITATIVE (02/13/2009 6:31 PM EDT) Beta hCG Qual Negative Negative [facility] VENOUS BLOOD / Unknown 02/13/2009 6:31 PM EDT 02/13/2009 6:39 PM EDT Narrative [facility] - 02/13/2009 7:21 PM EDT AKA:BETA HCG QUALITATIVE: us Allyn HORTON-C CHEMISTRY ORDERABLES Fin al Result [facility] [address] [place] [address]. [address] LAB * (ABNORMAL) LIPASE LEVEL (02/13/2009 6:31 PM EDT) Lipase Lvl 6(L) 10 - 71 U/L [facility] VENOUS BLOOD / Unknown 02/13/2009 6:31 PM EDT 02/13/2009 6:39 PM EDT Narrative [facility] - 02/13/2009 7:03 PM EDT AKA:LIPASE: us Allyn HORTON-C CHEMISTRY ORDERABLES Fin al Result [facility] [address] [facility]. [address] LAB * CT PELVIS W CONTRAST (02/13/2009 12:00 AM EDT) Anatomical Region Laterality Modality Other 02/13/2009 02/13/2009 Narrative 02/13/2009 12:00 AM EDT Name: OBIE Flowers : ??1980 VERIFIED [facility] Reason: ??ABD PAIN:R/O OBSTRUCTION Dict.Staff: JANA STEVENS III [id number] Verified By: INGRID ZULETA ?Trice: 02/14/09 ?? 3:16 pm Exams: ??CT-ABDOMEN WITH CONTRAST CT ABDOMEN AND PELVIS WITH CONTRAST: TECHNICAL FACTORS: ORAL CONTRAST WAS ADMINISTERED. ??100ML [address] WAS ADMINISTERED. ??SPIRAL SCANNING WAS PERFORMED THROUGH THE ABDOMEN AND PELVIS. ??COMPARISON MADE TO PRIOR STUDY DATED 04/07/2007. FINDINGS: There is altered enhancement as well as localized biliary ductal dilatation in the left lobe of the liver. ??This however is improved since 2006. ??There is also air in the biliary tree from previous manipulation of the patient's ampulla vater. ??Overall the altered enhancement and localized biliary duct dilatation, left lobe, appears improved. ??The areas of low attenuation in the left lobe have certainly improved since the prior study. The pancreas and spleen are unremarkable. ??Adrenal glands and kidneys are within normal limits. ??There are some calcifications adjacent to the pancreas. The small and large bowel loops are nondistended. ??There is no evidence of inflammatory change in the abdomen and pelvis. There is no free air or free fluid. ??There is a complex cyst in the right ovary measuring 4 x 3.1cm. IMPRESSION: NO ACUTE ABNORMALITY IDENTIFIED. ??RIGHT OVARIAN CYST. ??OVERALL IMPROVEMENT IN THE APPEARANCE OF THE ABNORMAL ENHANCEMENT AND LOCALIZED BILIARY DILATATION IN THE LEFT LOBE OF THE LIVER WHEN COMPARED TO EARLIER STUDIES DATING BACK TO 2006. HILDA/singh DICTATED ON FEBRUARY 13, 2009 @ 23:42 HOURS. end of result Procedure Note Unknown, U - 08/04/2009 Name: OBIE Flowers : 1980 VERIFIED [facility] Reason: ABD PAIN:R/O OBSTRUCTION Dict.Staff: JANA STEVENS III [id number] Verified By: INGRID ZULETA Trice: 02/14/09 3:16 pm Exams: CT-ABDOMEN WITH CONTRAST CT ABDOMEN AND PELVIS WITH CONTRAST: TECHNICAL FACTORS: ORAL CONTRAST WAS ADMINISTERED. 100ML ISOV[address] 370 WAS ADMINISTERED. SPIRAL SCANNING WAS PERFORMED THROUGH THE ABDOMEN AND PELVIS. COMPARISON MADE TO PRIOR STUDY DATED 04/07/2007. FINDINGS: There is altered enhancement as well as localized biliary ductal dilatation in the left lobe of the liver. This however is improved since 2006. There is also air in the biliary tree from previous manipulation of the patient's ampulla vater. Overall the altered enhancement and localized biliary duct dilatation, left lobe, appears improved. The areas of low attenuation in the left lobe have certainly improved since the prior study. The pancreas and spleen are unremarkable. Adrenal glands and kidneys are within normal limits. There are some calcifications adjacent to the pancreas. The small and large bowel loops are nondistended. There is no evidence of inflammatory change in the abdomen and pelvis. There is no free air or free fluid. There is a complex cyst in the right ovary measuring 4 x 3.1cm. IMPRESSION: NO ACUTE ABNORMALITY IDENTIFIED. RIGHT OVARIAN CYST. OVERALL IMPROVEMENT IN THE APPEARANCE OF THE ABNORMAL ENHANCEMENT AND LOCALIZED BILIARY DILATATION IN THE LEFT LOBE OF THE LIVER WHEN COMPARED TO EARLIER STUDIES DATING BACK TO 2006. HILDA/singh DICTATED ON FEBRUARY 13, 2009 @ 23:42 HOURS. end of result us U Unknown [facility]IST[facility] Final Result * CT ABDOMEN W CONTRAST (02/13/2009 12:00 AM EDT) Anatomical Region Laterality Modality Other 02/13/2009 02/13/2009 Narrative 02/13/2009 12:00 AM EDT Name: OBIE Flowers : ??1980 VERIFIED [facility] Reason: ??ABD PAIN:R/O OBSTRUCTION Dict.Staff: JANA STEVENS III [id number] Verified By: INGRID ZULETA ?Trice: 02/14/09 ?? 3:16 pm Exams: ??CT-ABDOMEN WITH CONTRAST CT ABDOMEN AND PELVIS WITH CONTRAST: TECHNICAL FACTORS: ORAL CONTRAST WAS ADMINISTERED. ??100ML ISOV[address] 370 WAS ADMINISTERED. ??SPIRAL SCANNING WAS PERFORMED THROUGH THE ABDOMEN AND PELVIS. ??COMPARISON MADE TO PRIOR STUDY DATED 04/07/2007. FINDINGS: There is altered enhancement as well as localized biliary ductal dilatation in the left lobe of the liver. ??This however is improved since 2006. ??There is also air in the biliary tree from previous manipulation of the patient's ampulla vater. ??Overall the altered enhancement and localized biliary duct dilatation, left lobe, appears improved. ??The areas of low attenuation in the left lobe have certainly improved since the prior study. The pancreas and spleen are unremarkable. ??Adrenal glands and kidneys are within normal limits. ??There are some calcifications adjacent to the pancreas. The small and large bowel loops are nondistended. ??There is no evidence of inflammatory change in the abdomen and pelvis. There is no free air or free fluid. ??There is a complex cyst in the right ovary measuring 4 x 3.1cm. IMPRESSION: NO ACUTE ABNORMALITY IDENTIFIED. ??RIGHT OVARIAN CYST. ??OVERALL IMPROVEMENT IN THE APPEARANCE OF THE ABNORMAL ENHANCEMENT AND LOCALIZED BILIARY DILATATION IN THE LEFT LOBE OF THE LIVER WHEN COMPARED TO EARLIER STUDIES DATING BACK TO 2006. HILDA/singh DICTATED ON FEBRUARY 13, 2009 @ 23:42 HOURS. end of result Procedure Note Unknown, U - 08/04/2009 Name: OBIE Flowers : 1980 VERIFIED [facility] Reason: ABD PAIN:R/O OBSTRUCTION Dict.Staff: JANA STEVENS III [id number] Verified By: INGRID ZULETA Trice: 02/14/09 3:16 pm Exams: CT-ABDOMEN WITH CONTRAST CT ABDOMEN AND PELVIS WITH CONTRAST: TECHNICAL FACTORS: ORAL CONTRAST WAS ADMINISTERED. 100ML [address] WAS ADMINISTERED. SPIRAL SCANNING WAS PERFORMED THROUGH THE ABDOMEN AND PELVIS. COMPARISON MADE TO PRIOR STUDY DATED 04/07/2007. FINDINGS: There is altered enhancement as well as localized biliary ductal dilatation in the left lobe of the liver. This however is improved since 2006. There is also air in the biliary tree from previous manipulation of the patient's ampulla vater. Overall the altered enhancement and localized biliary duct dilatation, left lobe, appears improved. The areas of low attenuation in the left lobe have certainly improved since the prior study. The pancreas and spleen are unremarkable. Adrenal glands and kidneys are within normal limits. There are some calcifications adjacent to the pancreas. The small and large bowel loops are nondistended. There is no evidence of inflammatory change in the abdomen and pelvis. There is no free air or free fluid. There is a complex cyst in the right ovary measuring 4 x 3.1cm. IMPRESSION: NO ACUTE ABNORMALITY IDENTIFIED. RIGHT OVARIAN CYST. OVERALL IMPROVEMENT IN THE APPEARANCE OF THE ABNORMAL ENHANCEMENT AND LOCALIZED BILIARY DILATATION IN THE LEFT LOBE OF THE LIVER WHEN COMPARED TO EARLIER STUDIES DATING BACK TO 2006. HILDA/singh DICTATED ON FEBRUARY 13, 2009 @ 23:42 HOURS. end of result us U Unknown [facility] Final Result documented in this encounter Visit Diagnoses Not on filedocumented in this encounter
--- OUTSIDE RECORDS SUMMARY | 2024-03-14 18:24 | XMS_ITS | Encounter Summary ---
Author Organization [place] [address] Care Team Providers Care Pot Press Operator Name Role Phone Unavailable Primary Care Provider Unavailabl e Encounter Details Date Type Department Care Team (Late st Contact Info) Description 02/28/2009 12:01 AM EST - 02/28/2009 11:59 PM EST Hospital Encounter HST EPIC CON UNK EDG Camila Jasso MD [address] [place] [address] Social History Tobacco Use Types Packs/Day Years [...] Description 04/24/2024 10:45 AM EST Clinical Support [facility] [address] [place] [address] Scheduled Orders Name Type Priority Associated Diagnoses Orde r Schedule ST STRESS TEST REGULAR Imaging Routine On ce for 1 Occurrences starting 06/30/2009 until 06/30/2009, 1 completed XR CHEST PA & LATERAL Imaging Routine Onc e for 1 Occurrences starting 06/30/2009 until 06/30/2009, 1 completed documented as of this encounter Procedures Procedure Name Priority Date/Time Associated Diagnosis Comments XX CHEST PA & LATERAL Routine 02/28/2009 2:[address] STRESS TEST REGULAR Routine 02/28/2009 1:45 PM EST documented in this encounter Results * XR CHEST PA & LATERAL (02/28/2009 2:37 PM EST) Anatomical Region Laterality Modality Other 02/28/2009 2:37 PM EST Narrative 02/28/2009 5:41 PM EST PA and lateral chest, 02/28/2009. History- Chest pain. The heart and lungs are within normal limits. Impression- ??Normal chest. ? Sheep And Wheat FarmerMarilynn QUARLES ? [place] Ronak REED ? Released Date Time- 02/28/091939 Procedure Note Lyndsay Reed - 06/30/2009 PA and lateral chest, 02/28/2009. History- Chest pain. The heart and lungs are within normal limits. Impression- Normal chest. Sheep And Wheat FarmerMarilynn Mendoza PhysicianMarilynn REED MD Released Date Time- 02/28/091939 Camila Jasso MD [facility] HISTORICAL Final Result * ST STRESS TEST REGULAR (02/28/2009 1:45 PM EST) Anatomical Region Laterality Modality Other 02/28/2009 1:45 PM EST Narrative 02/28/2009 2:46 PM EST PATIENT HAS SCRIPT TARGET HEART RATE- ??@75% ?85% 164 ?100% 193 TARGET REACHED- YES BASELINE ?HR ?B/P ? SYMPTOMS/COMMENTS/LEVEL OF PAIN LYING ? 84 ??107/63 STANDING ?88 ??106/67 POST HV STAGE ?MINUTES ?HR ?B/P ? SYMPTOMS/COMMENTS 1.7/10% ? 3-00 ? 124 ?? 92/71 ?SLIGHT SOB 2.5/12% ? 6-00 ? 154 ??119/71 ?SLIGHT SOB 3.4/14% ? 1-49 ? 169 ??123/65 ?SOB REASON FOR STOPPING- THR ? TOTAL TIME- 7-49 ? METS- ? 10.1 ?HR ?B/P ? SYMPTOMS/COMMENTS/LEVEL OF PAIN ? 1 MIN ?? 135 RECOVERY 2 MIN ?? 106 ??121/50 ?SOB EASING ? 4 MIN ?? 108 ??122/56 ?NO COMPLAINTS ? 6 MIN ?96 ??116/60 ?NO COMPLAINTS INTERPRETATION- EXERCISE CAPACITY ADJUSTED FOR AGE - GOOD. ?ARRYTHMIAS - NONE. CONCLUSION- ? NORMAL ECG RESPONSE. ? Sheep And Wheat Farmer- CLARENCE GOLDBERG ? [place] Physician- JACQUELIN BRADY ??M.DFazal ? Released Date Time- 02/28/09 1450 Procedure Note Jacquelin Brady - 06/30/2009 PATIENT HAS SCRIPT TARGET HEART RATE- @75% 85% 164 100% 193 TARGET REACHED- YES BASELINE HR B/P SYMPTOMS/COMMENTS/LEVEL OF PAIN LYING 84 107/63 STANDING 88 106/67 POST HV STAGE MINUTES HR B/P SYMPTOMS/COMMENTS 1.7/10% 3-00 124 92/71 SLIGHT SOB 2.5/12% 6-00 154 119/71 SLIGHT SOB 3.4/14% 1-49 169 123/65 SOB REASON FOR STOPPING- THR TOTAL TIME- 7-49 METS- 10.1 HR B/P SYMPTOMS/COMMENTS/LEVEL OF PAIN 1 MIN 135 RECOVERY 2 MIN 106 121/50 SOB EASING 4 MIN 108 122/56 NO COMPLAINTS 6 MIN 96 116/60 NO COMPLAINTS INTERPRETATION- EXERCISE CAPACITY ADJUSTED FOR AGE - GOOD. ARRYTHMIAS - NONE. CONCLUSION- NORMAL ECG RESPONSE. Sheep And Wheat Farmer- CLARENCE Mendoza Physician- JACQUELIN BRADY M.D. Released Date Time- 02/28/09 1450 Camila Jasso MD [facility] HISTORICAL Final Result documented in this encounter Visit Diagnoses Not on filedocumented in this encounter
--- OUTSIDE RECORDS SUMMARY | 2024-03-14 18:24 | XMS_ITS | Encounter Summary ---
Author Organization [place] [address] Care Team Providers Care [employer] Name Role Phone Unavailable Primary Care Provider Unavailabl e Encounter Details Date Type Department Care Team (Late st Contact Info) Description 12/12/2004 12:25 PM EDT - 12/12/2004 11:59 PM EDT Hospital Encounter [facility] RADIOLOGY EDG Thea Rubio MD [address] [place], [place] [id number] Social History Tobacco Use Types Packs/Day Years [...] EST Clinical Support [facility] [address] [place] [address] Scheduled Orders Name Type Priority Associated Diagnoses Orde r Schedule US PELVIS/SECTION CREWS ACTIVITIES CLERK RN TELEPHONIC Imaging Routine Once fo r 1 Occurrences starting 06/27/2009 until 06/27/2009, 1 completed documented as of this encounter Procedures Procedure Name Priority Date/Time Associated Diagnosis Comments US PELVIS/SECTION CREWS ACTIVITIES CLERK RN TELEPHONIC Routine 12/12/2004 12: 42 PM EDT documented in this encounter Results * US PELVIS/SECTION CREWS ACTIVITIES CLERK RN TELEPHONIC (12/12/2004 12:42 PM EDT) Anatomical Region Laterality Modality Other 12/12/2004 12:4 2 PM EDT Narrative 12/12/2004 3:29 PM EDT PT IN WAITING AREA Pelvic ultrasound 12/12/04 History- ??Pelvic pain. Transabdominal and transvaginal scans were performed. There are no prior studies for comparison. The uterus measures 9.8 x 3.8 x 5.9 cm and appears unremarkable. Endometrium measures 8 mm in thickness. Right ovary obtains a somewhat irregular hypoechoic area measuring 2.2 cm in greatest dimension with some homogeneous internal echoes. This likely represents a collapsed cyst, which has been complicated by hemorrhage or other debris. Right ovary, including the cyst, measures 3.2 x 2.9 x 2.5 cm. Left ovary measures 2.8 x 1.6 x 1.4 cm and is unremarkable. There is no free fluid. Impression- ??2.2 cm somewhat irregular hypoechoic area in the right ovary with homogeneous internal echoes. This likely represents collapsing cyst with hemorrhage or other debris. Otherwise unremarkable pelvic ultrasound. ?? Yamile ? Frame Sample And Pattern Supervisor- RADHA GONZALEZ ? Reading Radiologist- TATIANA FOX ? Released Date Time- 12/12/04 1529 Procedure Note Popeye Fox - 06/27/2009 PT IN WAITING AREA Pelvic ultrasound 12/12/04 History- Pelvic pain. Transabdominal and transvaginal scans were performed. There are no prior studies for comparison. The uterus measures 9.8 x 3.8 x 5.9 cm and appears unremarkable. Endometrium measures 8 mm in thickness. Right ovary obtains a somewhat irregular hypoechoic area measuring 2.2 cm in greatest dimension with some homogeneous internal echoes. This likely represents a collapsed cyst, which has been complicated by hemorrhage or other debris. Right ovary, including the cyst, measures 3.2 x 2.9 x 2.5 cm. Left ovary measures 2.8 x 1.6 x 1.4 cm and is unremarkable. There is no free fluid. Impression- 2.2 cm somewhat irregular hypoechoic area in the right ovary with homogeneous internal echoes. This likely represents collapsing cyst with hemorrhage or other debris. Otherwise unremarkable pelvic ultrasound. Yamile Frame Sample And Pattern Supervisor- RADHA GONZALEZ Reading Radiologist- TATIANA FOX MD Released Date Time- 12/12/04 1529 us Thea Rubio MD [facility] Final Result documented in this encounter Visit Diagnoses Not on filedocumented in this encounter
--- OUTSIDE RECORDS SUMMARY | 2024-03-14 18:24 | XMS_ITS | Encounter Summary ---
Author Organization [place] [address] Care Team Providers Care Center Administrator Name Role Phone Unavailable Primary Care Provider Unavailabl e Encounter Details Date Type Department Care Team (Late st Contact Info) Description 11/11/2007 6:05 PM EDT - 11/11/2007 8:43 PM EDT Hospital Encounter [facility] ER [facility] Generic, Historical Provider Social History Tobacco Use Types Packs/Day Years Used Date Smoking Tobacco: Never Assessed Comments Unknown Sex and Gender Information Value Date Recorded Sex Assigned at Not on file Legal Sex Female 1:46 PM EDT Gender Identity Not on file Sexual Orientation Not on file documented as of this encounter ED Notes * Unknown, Unknown - 08/10/2009 1:45 PM EDT documented in this encounter Plan of Treatment Upcoming Encounters Date Type Department Care Team (Late st Contact Info) Description 04/24/2024 10:45 AM EST Clinical Support [facility] [address] [place] [address] documented as of this encounter Visit Diagnoses Not on filedocumented in this encounter
--- OUTSIDE RECORDS SUMMARY | 2024-03-14 18:24 | XMS_ITS | Encounter Summary ---
Author Organization [place] [address] Care Team Providers Care Nursing Assistant Name Role Phone Unavailable Primary Care Provider Unavailabl e Encounter Details Date Type Department Care Team (Late st Contact Info) Description 05/30/2008 Hospital Encounter [facility] GYNECOLOGY [facility] Generic, Historical Provider Social History Tobacco [...] Clinical Support [facility] [address] [place] [address] Scheduled Orders Name Type Priority Associated Diagnoses Orde r Schedule US BREAST(S) Imaging Routine Once for 1 O ccurrences starting 08/04/2009 until 08/04/2009, 1 completed documented as of this encounter Procedures Procedure Name Priority Date/Time Associated Diagnosis Comments US BREAST(S) Routine 05/30/2008 12:00 AM EST documented in this encounter Results * US BREAST(S) (05/30/2008 12:00 AM EST) Anatomical Region Laterality Modality Other 05/30/2008 05/30/2008 Narrative 05/30/2008 12:00 AM EST Name: OBIE OLMSTEAD Kristie : ??1980 VERIFIED ? ADDENDED REPORT ? ADDENDUM# 1 [facility] Reason: ??LUMP Dict.Staff: KAI STACK [id number] Verified By: DANDRE REYNAGA ? Trice: 05/30/08 ?? 4:01 pm Exams: ??US-BREAST(S) ULTRASOUND OF THE RIGHT BREAST: 05/30/08 There is a history of a small, palpable lump in the upper inner quadrant of the right breast. Ultrasound exam was performed with attention to the area of the palpable abnormality. ??No cystic or solid mass is seen at this location. IMPRESSION: NO ABNORMALITY IDENTIFIED ON ULTRASOUND EXAM OF THE RIGHT BREAST WITH ATTENTION TO THE AREA OF A SMALL, PALPABLE LUMP. ??MAMMOGRAM WAS NOT PERFORMED DUE TO THE PATIENT'S AGE. ??MANAGEMENT MUST BE BASED ON THE CLINICAL FINDINGS. ALVARO/singh/CATEGORY 1 ??NEGATIVE DICTATED ON MAY 30, 2008 11:06 HOURS. AGE-APPROPRIATE SCREENING MAMMOGRAM IS SUGGESTED. ??lkd VERIFIED ? ADDENDED REPORT ? ADDENDUM# 0 [facility] Reason: ??LUMP Dict.Staff: KAI STACK [id number] Verified By: DANDRE REYNAGA ? Trice: 05/30/08 ??12:38 pm Exams: ??US-BREAST(S) ULTRASOUND OF THE RIGHT BREAST: 05/30/08 There is a history of a small, palpable lump in the upper inner quadrant of the right breast. Ultrasound exam was performed with attention to the area of the palpable abnormality. ??No cystic or solid mass is seen at this location. IMPRESSION: NO ABNORMALITY IDENTIFIED ON ULTRASOUND EXAM OF THE RIGHT BREAST WITH ATTENTION TO THE AREA OF A SMALL, PALPABLE LUMP. ??MAMMOGRAM WAS NOT PERFORMED DUE TO THE PATIENT'S AGE. ??MANAGEMENT MUST BE BASED ON THE CLINICAL FINDINGS. ALVARO/singh/CATEGORY 1 ??NEGATIVE DICTATED ON MAY 30, 2008 11:06 HOURS. end of result Procedure Note Unknown, U - 08/04/2009 Name: OBIE Flowers : 1980 VERIFIED ADDENDED REPORT ADDENDUM# 1 [facility] Reason: LUMP Dict.Staff: KAI STACK [id number] Verified By: DANDRE REYNAGA Trice: 05/30/08 4:01 pm Exams: US-BREAST(S) ULTRASOUND OF THE RIGHT BREAST: 05/30/08 There is a history of a small, palpable lump in the upper inner quadrant of the right breast. Ultrasound exam was performed with attention to the area of the palpable abnormality. No cystic or solid mass is seen at this location. IMPRESSION: NO ABNORMALITY IDENTIFIED ON ULTRASOUND EXAM OF THE RIGHT BREAST WITH ATTENTION TO THE AREA OF A SMALL, PALPABLE LUMP. MAMMOGRAM WAS NOT PERFORMED DUE TO THE PATIENT'S AGE. MANAGEMENT MUST BE BASED ON THE CLINICAL FINDINGS. ALVARO/singh/CATEGORY 1 NEGATIVE DICTATED ON MAY 30, 2008 11:06 HOURS. AGE-APPROPRIATE SCREENING MAMMOGRAM IS SUGGESTED. lkd VERIFIED ADDENDED REPORT ADDENDUM# 0 [facility] Reason: LUMP Dict.Staff: KAI STACK [id number] Verified By: DANDRE REYNAGA Trice: 05/30/08 12:38 pm Exams: US-BREAST(S) ULTRASOUND OF THE RIGHT BREAST: 05/30/08 There is a history of a small, palpable lump in the upper inner quadrant of the right breast. Ultrasound exam was performed with attention to the area of the palpable abnormality. No cystic or solid mass is seen at this location. IMPRESSION: NO ABNORMALITY IDENTIFIED ON ULTRASOUND EXAM OF THE RIGHT BREAST WITH ATTENTION TO THE AREA OF A SMALL, PALPABLE LUMP. MAMMOGRAM WAS NOT PERFORMED DUE TO THE PATIENT'S AGE. MANAGEMENT MUST BE BASED ON THE CLINICAL FINDINGS. ALVARO/singh/CATEGORY 1 NEGATIVE DICTATED ON MAY 30, 2008 11:06 HOURS. end of result us U Unknown IMG [facility] RAD HISTORICAL Final Result documented in this encounter Visit Diagnoses Not on filedocumented in this encounter
--- OUTSIDE RECORDS SUMMARY | 2024-03-14 18:24 | XMS_ITS | Encounter Summary ---
Author Organization [place] [address] Care Team Providers Care Sub Assembly Team Worker Name Role Phone Unavailable Primary Care Provider Unavailabl e Encounter Details Date Type Department Care Team (Latest Contact Info) Description 02/20/2009 - 02/20/2009 11:59 PM EST Hospital Encounter [facility] MEDICIN [facility] Discharge Disposition: Home or Self Care Social [...] 04/24/2024 10:45 AM EST Clinical Support [facility] [address] [place] [address] documented as of this encounter Visit Diagnoses Not on filedocumented in this encounter
--- OUTSIDE RECORDS SUMMARY | 2024-03-14 18:24 | XMS_ITS | Encounter Summary ---
Author Organization [place] [address] Care Team Providers Care Campaign Fundraiser Name Role Phone Unavailable Primary Care Provider Unavailabl e Encounter Details Date Type Department Care Team (Late st Contact Info) Description 04/23/1999 2:56 PM EST - 04/23/1999 5:34 PM EST Hospital Encounter [facility] EPIC CON UNK COV Wei Diaz MD Social History Tobacco Use Types Packs/Day [...] Clinical Support [facility] [address] [place] [address] documented as of this encounter Visit Diagnoses Not on filedocumented in this encounter
--- OUTSIDE RECORDS SUMMARY | 2024-03-14 18:24 | XMS_ITS | Encounter Summary ---
Author Organization [place] [address] Care Team Providers Care Cylinder Handler Name Role Phone Unavailable Primary Care Provider Unavailabl e Encounter Details Date Type Department Care Team (Late st Contact Info) Description 10/10/2006 12:01 AM EDT - 10/10/2006 11:59 PM EDT Hospital Encounter [facility] RADIOLOGY EDG Matthew Marino MD Social History Tobacco Use Types Packs/Day [...] Description 04/24/2024 10:45 AM EST Clinical Support [facility] [address] [place] [address] Scheduled Orders Name Type Priority Associated Diagnoses Orde r Schedule CT UPPER EXT W/O CONT Imaging Routine Onc e for 1 Occurrences starting 06/28/2009 until 06/28/2009, 1 completed IR UPPER EXT ARTHO BRIM SETTER Imaging Routine Once for 1 Occur rences starting 06/28/2009 until 06/28/2009, 1 completed documented as of this encounter Procedures Procedure Name Priority Date/Time Associated Diagnosis Comments SP UPPER EXT ARTHO BRIM SETTER Routine 10/15/2006 8:[address] UPPER EXT W/O CONT Routine 10/10/2006 8:29 AM EDT documented in this encounter Results * IR UPPER EXT ARTHO BRIM SETTER (10/15/2006 8:30 AM EDT) Anatomical Region Laterality Modality Other 10/15/2006 8:30 AM EDT Narrative 10/10/2006 9:[address] FORREST CT R WRIST ARTHROGRAM Fluoroscopic-guided right wrist arthrogram for CT 10/10/2006- Indication- Chronic wrist pain. Findings- Informed consent obtained. Patient was prepped, draped, positioned and locally anesthetized in normal fashion. Under direct fluoroscopic guidance a 25-gauge 1-1/2 inch needle was inserted into the right radiocarpal joint and intra-articular location was confirmed with a small amount of Omnipaque-180 iodinated contrast material. Subsequently, 5 cc of full strength Omnipaque-180 was injected into the radiocarpal joint. There was no evidence of extravasation of contrast through the TFCC or scapholunate ligament. No evidence of extravasation through the lunotriquetral ligament. Impression- Technically successful fluoroscopic guided right wrist arthrogram for CT. There was no evidence of ligamentous tear on this portion of the study. CT to follow. ? Food Service Technician- FAINA GUNDERSON ? Reading Radiologist- ALVIN FORREST ??M.D. ? Released Date Time- 10/10/06 1412 Procedure Note Alvin Forrest - 06/28/[address] R WRIST ARTHROGRAM Fluoroscopic-guided right wrist arthrogram for CT 10/10/2006- Indication- Chronic wrist pain. Findings- Informed consent obtained. Patient was prepped, draped, positioned and locally anesthetized in normal fashion. Under direct fluoroscopic guidance a 25-gauge 1-1/2 inch needle was inserted into the right radiocarpal joint and intra-articular location was confirmed with a small amount of Omnipaque-180 iodinated contrast material. Subsequently, 5 cc of full strength Omnipaque-180 was injected into the radiocarpal joint. There was no evidence of extravasation of contrast through the TFCC or scapholunate ligament. No evidence of extravasation through the lunotriquetral ligament. Impression- Technically successful fluoroscopic guided right wrist arthrogram for CT. There was no evidence of ligamentous tear on this portion of the study. CT to follow. Food Service Technician- FAINA Mendoza Radiologist- ALVIN FORREST M.D. Released Date Time- 10/10/061411 us Matthew Marino MD [facility] RAD HISTORICAL Antonia l Result * CT UPPER EXT W/O CONT (10/10/2006 8:29 AM EDT) Anatomical Region Laterality Modality Other 10/10/2006 8:29 AM EDT Narrative 10/10/2006 9:[address] arthrogram, right wrist, including reformats, 10/10/2006 Indication- Chronic wrist pain. Findings- CT arthrogram of the right wrist was performed after the uneventful fluoroscopically-guided injection of Omnipaque-180 into the radiocarpal joint. Report dictated separately. Thin section axial slices were obtained with 2-D sagittal and coronal reformats obtained post processing. There is no evidence of fracture or dislocation. Contrast material is seen in the radiocarpal joint without any extravasation into the DRUJ or midcarpal row. TFCC, scapholunate and lunotriquetral ligaments are intact. Otherwise negative. Impression- Negative right wrist arthrogram. Specifically the TFCC, scapholunate ligament and lunotriquetral ligament are intact. No fractures or dislocations. ? Food Service Technician- UDAY WOODY ? Reading Radiologist- ALVIN FORREST ??Jose. ? Released Date Time- 10/10/061411 Procedure Note Alvin Forrest - 06/28/2009 CT arthrogram, right wrist, including reformats, 10/10/2006 Indication- Chronic wrist pain. Findings- CT arthrogram of the right wrist was performed after the uneventful fluoroscopically-guided injection of Omnipaque-180 into the radiocarpal joint. Report dictated separately. Thin section axial slices were obtained with 2-D sagittal and coronal reformats obtained post processing. There is no evidence of fracture or dislocation. Contrast material is seen in the radiocarpal joint without any extravasation into the DRUJ or midcarpal row. TFCC, scapholunate and lunotriquetral ligaments are intact. Otherwise negative. Impression- Negative right wrist arthrogram. Specifically the TFCC, scapholunate ligament and lunotriquetral ligament are intact. No fractures or dislocations. Food Service Technician- UDAY Mendoza Radiologist- ALVIN FORREST M.D. Released Date Time- 10/10/06 1412 us Matthew Marino MD [facility] Antonia l Result documented in this encounter Visit Diagnoses Not on filedocumented in this encounter
--- OUTSIDE RECORDS SUMMARY | 2024-03-14 18:24 | XMS_ITS | Encounter Summary ---
Author Organization [place] [address] Care Team Providers Care Tint Layer Name Role Phone Unavailable Primary Care Provider Unavailabl e Encounter Details Date Type Department Care Team (Late st Contact Info) Description 07/04/2003 5:12 AM EST - 07/04/2003 11:59 PM EST Hospital Encounter HST LAB EDG Tcshelia, Thea Pimentel MD [address] [place] [address] Social History Tobacco Use Types Packs/Day Years [...] 04/24/2024 10:45 AM EST Clinical Support [facility] [address] [place] [address] documented as of this encounter Visit Diagnoses Not on filedocumented in this encounter
--- OUTSIDE RECORDS SUMMARY | 2024-03-14 18:24 | XMS_ITS | Encounter Summary ---
Author Organization [facility] [place] [address] Care Team Providers Care Stores Laborer Name Role Phone Unavailable Primary Care Provider Unavailabl e Encounter Details Date Type Department Care Team (Late st Contact Info) Description 11/19/2004 8:16 PM EDT - 11/19/2004 11:59 PM EDT Hospital Encounter HST LAB EDG Tcfinng, Thea Pimentel MD [address] [place], [place] [phone] Social History Tobacco Use Types Packs/Day Years [...] 10:45 AM EST Clinical Support [facility] [address] [place] [address] documented as of this encounter Visit Diagnoses Not on filedocumented in this encounter
--- OUTSIDE RECORDS SUMMARY | 2024-03-14 18:24 | XMS_ITS | Encounter Summary ---
Author Organization [place] [address] Care Team Providers Care High School Admissions Representative Name Role Phone Unavailable Primary Care Provider Unavailabl e Encounter Details Date Type Department Care Team (Late st Contact Info) Description 12/23/2008 7:37 AM EDT - 12/23/2008 11:59 PM EDT Hospital Encounter [facility]ST EPIC CON UNK EDG Genaro Davis [address] [place] [address] [phone] (Fax) Social History Tobacco Use Types Packs/Day Years [...] 04/24/2024 10:45 AM EST Clinical Support [facility] [address] [place] [address] documented as of this encounter Visit Diagnoses Not on filedocumented in this encounter
--- OUTSIDE RECORDS SUMMARY | 2024-03-14 18:24 | XMS_ITS | Encounter Summary ---
Author Organization [facility] [address] Care Team Providers Care Billiard Table Assembler Name Role Phone Unavailable Primary Care Provider Unavailabl e Encounter Details Date Type Department Care Team (Late st Contact Info) Description 04/12/1999 7:00 PM EST - 04/12/1999 8:05 PM EST Hospital Encounter [facility] MINOR ER EDG Kait Kumar MD [address] [place] [phone] Social History Tobacco Use Types Packs/Day [...] 04/24/2024 10:45 AM EST Clinical Support [facility] [address] [place] [address] documented as of this encounter Visit Diagnoses Not on filedocumented in this encounter
--- OUTSIDE RECORDS SUMMARY | 2024-03-14 18:24 | XMS_ITS | Encounter Summary ---
Author Organization [place] [address] Care Team Providers Care Plant Floor Automation Manager Name Role Phone Unavailable Primary Care Provider Unavailabl e Encounter Details Date Type Department Care Team (Late st Contact Info) Description 03/29/1998 2:59 PM EST - 03/29/1998 11:59 PM EST Hospital Encounter HST LAB EDG Fred Martínez [...] [facility] [address] [place] [address] documented as of this encounter Visit Diagnoses Not on filedocumented in this encounter
--- OUTSIDE RECORDS SUMMARY | 2024-03-14 18:24 | XMS_ITS | Encounter Summary ---
Author Organization [place] [address] Care Team Providers Care Justice Professor Name Role Phone Unavailable Primary Care Provider Unavailabl e Encounter Details Date Type Department Care Team (Late st Contact Info) Description 05/27/2008 Hospital Encounter [facility] MEDICIN [facility] Generic, Historical [...] 04/24/2024 10:45 AM EST Clinical Support [facility] [address] [place] [address] Scheduled Orders Name Type Priority Associated Diagnoses Orde r Schedule CT ABDOMEN W/O CONTRAST Imaging Routine Once for 1 Occur rences starting 08/04/2009 until 08/04/2009, [address] PELVIS W/O CONTRAST Imaging Routine On ce for 1 Occurrences starting 08/04/2009 until 08/04/2009, 1 completed documented as of this encounter Procedures Procedure Name Priority Date/Time Associated Diagnosis Comments CT PELVIS W/O CONTRAST Routine 05/27/2008 12:[address] ABDOMEN W/O CONTRAST Routine 05/27/2008 12:00 AM EST documented in this encounter Results * CT PELVIS W/O CONTRAST (05/27/2008 12:00 AM EST) Anatomical Region Laterality Modality Other 05/27/2008 05/27/2008 Narrative 05/27/2008 12:00 AM EST Name: OBIE Flowers : ??1980 VERIFIED [facility] Reason: ??RLQ PAIN *STAT* CT ABD/PELV W/C Dict.Staff: ANANTH MICHAEL [id number] Verified By: ANANTH MICHAEL ?Trice: 05/27/08 ?? 4:05 pm Exams: ??CT-ABDOMEN W/O CONT CT ABDOMEN WITHOUT CONTRAST AND CT PELVIS WITHOUT CONTRAST, 05-27-08: HISTORY: ??Right lower quadrant pain. ??Rule out appendicitis. Helical scanning from the diaphragm to the pelvic floor. ??No IV contrast due to inability to obtain IV access. ??Oral contrast given. ??5 mm slices. ??Comparison to 04-07-07. CT ABDOMEN: The liver again shows evidence of gas within the biliary structures. ??Areas of low attenuation are again seen in the left lobe but these are less clearly defined on today's study due to the absence of IV contrast material. ??The gallbladder is absent. Common duct is not as clearly defined as on prior exams but still is likely dilated. ??Surgical clips are noted in the expected area of the distal common duct. ??The pancreas is grossly normal considering lack of IV contrast. ??There is no obvious renal lesion. Bowel loops in the upper abdomen are partially opacified. ??There are no findings to suggest bowel obstruction. CT PELVIS: The appendix is not identified on this examination. ??Neither is there evidence of inflammatory process adjacent to the cecum. The urinary bladder is mildly distended but appears intrinsically unremarkable. ??The uterus lies slightly to the right of midline. ??There is a tiny amount of free fluid in the cul-de-sac region that may be physiologic in nature related to the patient's menstrual cycle. IMPRESSION: NONSPECIFIC FINDINGS OF FREE FLUID IN THE PELVIC CAVITY WHICH MAY BE PHYSIOLOGIC. ??LIMITED STUDY IN THE ABSENCE OF IV CONTRAST MATERIAL. ??APPENDIX NOT IDENTIFIED. ??NO SPECIFIC INFLAMMATORY PROCESS SEEN. ??EVIDENCE OF CHRONIC PRESUMABLY BENIGN LIVER LESIONS. ??EVIDENCE OF PRIOR BILIARY DUCTAL ANASTOMOSIS. ALEC/ranulfo DICTATED 05-27-08 @ 15:26 CODE JOT end of result Procedure Note Unknown, U - 08/04/2009 Name: OBIE Flowers : 1980 VERIFIED [facility] Reason: RLQ PAIN *STAT* CT ABD/PELV W/C Dict.Staff: ANANTH MICHAEL [id number] Verified By: ANANTH MICHAEL Trice: 05/27/08 4:05 pm Exams: CT-ABDOMEN W/O CONT CT ABDOMEN WITHOUT CONTRAST AND CT PELVIS WITHOUT CONTRAST, 05-27-08: HISTORY: Right lower quadrant pain. Rule out appendicitis. Helical scanning from the diaphragm to the pelvic floor. No IV contrast due to inability to obtain IV access. Oral contrast given. 5 mm slices. Comparison to 04-07-07. CT ABDOMEN: The liver again shows evidence of gas within the biliary structures. Areas of low attenuation are again seen in the left lobe but these are less clearly defined on today's study due to the absence of IV contrast material. The gallbladder is absent. Common duct is not as clearly defined as on prior exams but still is likely dilated. Surgical clips are noted in the expected area of the distal common duct. The pancreas is grossly normal considering lack of IV contrast. There is no obvious renal lesion. Bowel loops in the upper abdomen are partially opacified. There are no findings to suggest bowel obstruction. CT PELVIS: The appendix is not identified on this examination. Neither is there evidence of inflammatory process adjacent to the cecum. The urinary bladder is mildly distended but appears intrinsically unremarkable. The uterus lies slightly to the right of midline. There is a tiny amount of free fluid in the cul-de-sac region that may be physiologic in nature related to the patient's menstrual cycle. IMPRESSION: NONSPECIFIC FINDINGS OF FREE FLUID IN THE PELVIC CAVITY WHICH MAY BE PHYSIOLOGIC. LIMITED STUDY IN THE ABSENCE OF IV CONTRAST MATERIAL. APPENDIX NOT IDENTIFIED. NO SPECIFIC INFLAMMATORY PROCESS SEEN. EVIDENCE OF CHRONIC PRESUMABLY BENIGN LIVER LESIONS. EVIDENCE OF PRIOR BILIARY DUCTAL ANASTOMOSIS. LAIB/ DICTATED 05-27-08 @ 15:26 CODE JOT end of result us U Unknown IM [facility] RAD HISTORICAL Final Result * CT ABDOMEN W/O CONTRAST (05/27/2008 12:00 AM EST) Anatomical Region Laterality Modality Other 05/27/2008 05/27/2008 Narrative 05/27/2008 12:00 AM EST Name: OBIE Flowers : ??1980 VERIFIED [facility] Reason: ??RLQ PAIN *STAT* CT ABD/PELV W/C Dict.Staff: ANANTH MICHAEL [id number] Verified By: ANANTH MICHAEL ?Trice: 05/27/08 ?? 4:05 pm Exams: ??CT-ABDOMEN W/O CONT CT ABDOMEN WITHOUT CONTRAST AND CT PELVIS WITHOUT CONTRAST, 05-27-08: HISTORY: ??Right lower quadrant pain. ??Rule out appendicitis. Helical scanning from the diaphragm to the pelvic floor. ??No IV contrast due to inability to obtain IV access. ??Oral contrast given. ??5 mm slices. ??Comparison to 04-07-07. CT ABDOMEN: The liver again shows evidence of gas within the biliary structures. ??Areas of low attenuation are again seen in the left lobe but these are less clearly defined on today's study due to the absence of IV contrast material. ??The gallbladder is absent. Common duct is not as clearly defined as on prior exams but still is likely dilated. ??Surgical clips are noted in the expected area of the distal common duct. ??The pancreas is grossly normal considering lack of IV contrast. ??There is no obvious renal lesion. Bowel loops in the upper abdomen are partially opacified. ??There are no findings to suggest bowel obstruction. CT PELVIS: The appendix is not identified on this examination. ??Neither is there evidence of inflammatory process adjacent to the cecum. The urinary bladder is mildly distended but appears intrinsically unremarkable. ??The uterus lies slightly to the right of midline. ??There is a tiny amount of free fluid in the cul-de-sac region that may be physiologic in nature related to the patient's menstrual cycle. IMPRESSION: NONSPECIFIC FINDINGS OF FREE FLUID IN THE PELVIC CAVITY WHICH MAY BE PHYSIOLOGIC. ??LIMITED STUDY IN THE ABSENCE OF IV CONTRAST MATERIAL. ??APPENDIX NOT IDENTIFIED. ??NO SPECIFIC INFLAMMATORY PROCESS SEEN. ??EVIDENCE OF CHRONIC PRESUMABLY BENIGN LIVER LESIONS. ??EVIDENCE OF PRIOR BILIARY DUCTAL ANASTOMOSIS. LAIB/rh DICTATED 05-27-08 @ 15:26 CODE JOT end of result Procedure Note Unknown, U - 08/04/2009 Name: OBIE Flowers : 1980 VERIFIED [facility] Reason: RLQ PAIN *STAT* CT ABD/PELV W/C Dict.Staff: ANANTH MICHAEL [id number] Verified By: ANANTH MICHAEL Trice: 05/27/08 4:05 pm Exams: CT-ABDOMEN W/O CONT CT ABDOMEN WITHOUT CONTRAST AND CT PELVIS WITHOUT CONTRAST, 05-27-08: HISTORY: Right lower quadrant pain. Rule out appendicitis. Helical scanning from the diaphragm to the pelvic floor. No IV contrast due to inability to obtain IV access. Oral contrast given. 5 mm slices. Comparison to 04-07-07. CT ABDOMEN: The liver again shows evidence of gas within the biliary structures. Areas of low attenuation are again seen in the left lobe but these are less clearly defined on today's study due to the absence of IV contrast material. The gallbladder is absent. Common duct is not as clearly defined as on prior exams but still is likely dilated. Surgical clips are noted in the expected area of the distal common duct. The pancreas is grossly normal considering lack of IV contrast. There is no obvious renal lesion. Bowel loops in the upper abdomen are partially opacified. There are no findings to suggest bowel obstruction. CT PELVIS: The appendix is not identified on this examination. Neither is there evidence of inflammatory process adjacent to the cecum. The urinary bladder is mildly distended but appears intrinsically unremarkable. The uterus lies slightly to the right of midline. There is a tiny amount of free fluid in the cul-de-sac region that may be physiologic in nature related to the patient's menstrual cycle. IMPRESSION: NONSPECIFIC FINDINGS OF FREE FLUID IN THE PELVIC CAVITY WHICH MAY BE PHYSIOLOGIC. LIMITED STUDY IN THE ABSENCE OF IV CONTRAST MATERIAL. APPENDIX NOT IDENTIFIED. NO SPECIFIC INFLAMMATORY PROCESS SEEN. EVIDENCE OF CHRONIC PRESUMABLY BENIGN LIVER LESIONS. EVIDENCE OF PRIOR BILIARY DUCTAL ANASTOMOSIS. LAIB/rh DICTATED 05-27-08 @ 15:26 CODE JOT end of result us U Unknown IMG [facility] RAD HISTORICAL Final Result documented in this encounter Visit Diagnoses Not on filedocumented in this encounter
--- OUTSIDE RECORDS SUMMARY | 2024-03-14 18:24 | XMS_ITS | Encounter Summary ---
Author Organization [place] [address] Care Team Providers Care Telephone Engineer Name Role Phone Unavailable Primary Care Provider Unavailabl e Encounter Details Date Type Department Care Team (Late st Contact Info) Description 11/20/2002 1:21 PM EDT - 11/20/2002 2:25 PM EDT Hospital Encounter HST EPIC CON UNK COV Fred Judd MD Social History Tobacco Use [...] Clinical Support [facility] [address] [place] [phone] documented as of this encounter Visit Diagnoses Not on filedocumented in this encounter
--- OUTSIDE RECORDS SUMMARY | 2024-03-14 18:24 | XMS_ITS | Encounter Summary ---
Author Organization [facility] [place] [address] Care Team Providers Care Change Of Address Clerk Name Role Phone Unavailable Primary Care Provider Unavailabl e Encounter Details Date Type Department Care Team (Late st Contact Info) Description 06/21/2000 11:58 PM EST - 06/22/2000 12:40 AM EST Hospital Encounter [facility] ER EDG Hannah Cedeno MD [address] [place] [address] Dionisio Mckenzie DO [address] [place] [address] Social History Tobacco Use Types [...] 04/24/2024 10:45 AM EST Clinical Support [facility] [address] [place] [address] documented as of this encounter Visit Diagnoses Not on filedocumented in this encounter
--- OUTSIDE RECORDS SUMMARY | 2024-03-14 18:24 | XMS_ITS | Encounter Summary ---
[place] [address] Care Team Providers Care Principal Network Architect Name Role Phone Unavailable Primary Care Provider Unavailabl e Encounter Details Date Type Department Care Team (Late st Contact Info) Description 10/20/2008 2:16 PM EDT - 10/20/2008 11:59 PM EDT Hospital Encounter HST LAB EDG Marge Calles MD [address] [place] [address] Social History Tobacco Use Types [...] 04/24/2024 10:45 AM EST Clinical Support [facility] [address] [place] [address] documented as of this encounter Visit Diagnoses Not on filedocumented in this encounter
--- OUTSIDE RECORDS SUMMARY | 2024-03-14 18:24 | XMS_ITS | Encounter Summary ---
Author Organization [place] [address] Care Team Providers Care Living Skills Advisor Name Role Phone Unavailable Primary Care Provider Unavailabl e Encounter Details Date Type Department Care Team (Late st Contact Info) Description 04/04/2009 12:01 AM EST - 04/04/2009 11:59 PM EST Hospital Encounter [facility] [place] [address] [place] [phone] Camila Jasso MD [address] [place] [address] Social History Tobacco Use Types Packs/Day [...] EST Clinical Support [facility] [address] [place] [address] Scheduled Orders Name Type Priority Associated Diagnoses Orde r Schedule US PELVIS/BIOPROCESSING MANUFACTURING TECHNICIAN CAPTAIN ASSISTANT Imaging Routine Once fo r 1 Occurrences starting 06/30/2009 until 06/30/2009, 1 completed documented as of this encounter Procedures Procedure Name Priority Date/Time Associated Diagnosis Comments US PELVIS/BIOPROCESSING MANUFACTURING TECHNICIAN CAPTAIN ASSISTANT Routine 04/04/2009 8:3 9 AM EST documented in this encounter Results * US PELVIS/BIOPROCESSING MANUFACTURING TECHNICIAN CAPTAIN ASSISTANT (04/04/2009 8:39 AM EST) Anatomical Region Laterality Modality Other 04/04/2009 8:39 AM EST Narrative 04/04/2009 11:37 AM EST Pelvic ultrasound, 04/04/2009. Indication- Followup ovarian cyst. Findings- Transabdominal and endovaginal pelvic ultrasound is compared to previous examination, 12/26/2005, and CT abdomen and pelvis, 12/03/2006. The uterus remains normal measuring 9.0 x 4.4 x 5.9 cm. The endometrium remains thin and homogenous measuring less than 4 mm. Small simple follicle in the right ovary. The right ovary measures 2.0 x 2.6 x 1.5 cm. Left ovary measures 2.5 x 1.8 x 1.2 cm. No free pelvic fluid. Impression- 1.5 cm follicle, right ovary. Pelvic ultrasound otherwise negative. ? Customer Loyalty Representative- SAQIB ZUNIGA ? Reading Physician- ALVIN FORREST ??M.D. ? Released Date Time- 04/04/09 1650 Procedure Note Alvin Forrest - 06/30/2009 Pelvic ultrasound, 04/04/2009. Indication- Followup ovarian cyst. Findings- Transabdominal and endovaginal pelvic ultrasound is compared to previous examination, 12/26/2005, and CT abdomen and pelvis, 12/03/2006. The uterus remains normal measuring 9.0 x 4.4 x 5.9 cm. The endometrium remains thin and homogenous measuring less than 4 mm. Small simple follicle in the right ovary. The right ovary measures 2.0 x 2.6 x 1.5 cm. Left ovary measures 2.5 x 1.8 x 1.2 cm. No free pelvic fluid. Impression- 1.5 cm follicle, right ovary. Pelvic ultrasound otherwise negative. Customer Loyalty Representative- SAQIB Mendoza Physician- ALVIN FORREST M.D. Released Date Time- 04/04/09 6330 Camila Jasso MD [facility] HISTORICAL Final Result documented in this encounter Visit Diagnoses Not on filedocumented in this encounter
--- OUTSIDE RECORDS SUMMARY | 2024-03-14 18:24 | XMS_ITS | Encounter Summary ---
Author Organization [place] [address] Care Team Providers Care Multi Line Claims Adjuster Name Role Phone Unavailable Primary Care Provider Unavailabl e Encounter Details Date Type Department Care Team (Late st Contact Info) Description 02/17/1998 8:07 AM EST - 02/17/1998 8:50 AM EST Hospital Encounter HST 1C Fred Martínez [...] [facility] [address] [place] [phone] documented as of this encounter Visit Diagnoses Not on filedocumented in this encounter
--- OUTSIDE RECORDS SUMMARY | 2024-03-14 18:24 | XMS_ITS | Encounter Summary ---
Author Organization [place] [address] Care Team Providers Care Identifier Horse Name Role Phone Yuliet Norman MD Primary Care Provider [phone] Encounter Details Date Type Department Care Team (Late st Contact Info) Description 11/22/2010 1:54 PM EDT - 11/22/2010 11:59 PM EDT Hospital Encounter [facility] EKG [address] [place], [place] [id number] [facility] Discharge Disposition: Home or Self Care Social [...] 04/24/2024 10:45 AM EST Clinical Support [facility] [address] [place] [address] documented as of this encounter Procedures Procedure Name Priority Date/Time Associated Diagnosis Comments EK EKG 12 LEAD STAT 11/22/2010 10:58 AM EDT documented in this encounter Results * EK EKG 12 LEAD (11/22/2010 10:58 AM EDT) PYRAMIS LINK PYRAMIS Anatomical Region Laterality Modality Electrocardiogra phy 11/22/2010 10:5 8 AM EDT Emergency Care Physicians [facility] I MG ECG ORDERABLES Final Result documented in this encounter Visit Diagnoses Not on filedocumented in this encounter Care Teams Identifier Horse Relationship Specialty Start Date End Date Yuliet Norman MD PCP - General 11/22/10 09/12/14 documented as of this encounter
--- OUTSIDE RECORDS SUMMARY | 2024-03-14 18:24 | XMS_ITS | Encounter Summary ---
Author Organization [place] [address] Care Team Providers Care Machine Farmworker Name Role Phone Unavailable Primary Care Provider Unavailabl e Encounter Details Date Type Department Care Team (Late st Contact Info) Description 01/11/2009 10:00 AM EDT - 01/11/2009 12:29 PM EDT Hospital Encounter HST ER ASAEL Matthew Salas MD [address] [place] [phone] Social History Tobacco Use Types Packs/Day Years Used Date Smoking Tobacco: Never Assessed Comments Unknown Sex and Gender Information Value Date Recorded Sex Assigned at Not on file Legal Sex Female 1:46 PM EDT Gender Identity Not on file Sexual Orientation Not on file documented as of this encounter ED Notes * Unknown, Unknown - 07/25/2009 2:09 PM EDT documented in this encounter Plan of Treatment Upcoming Encounters Date Type Department Care Team (Late st Contact Info) Description 04/24/2024 10:45 AM EST [facility] [address] [place] [phone] documented as of this encounter Procedures Procedure Name Priority Date/Time Associated Diagnosis Comments BETA HCG QUALITATIVE KIT TEST, URINE Routine 01/11/2009 10:50 AM EDT LIPASE LEVEL Routine 01/11/2009 10:50 AM EDT documented in this encounter Results * BETA HUMAN CHORIONIC GONADOTROPIN QUALITATIVE (01/11/2009 10:50 AM EDT) Beta hCG Qual Negative Negative [facility] VENOUS BLOOD / Unknown 01/11/2009 10:50 AM EDT 01/11/2009 11:01 AM EDT Narrative [facility] - 01/11/2009 11:33 AM EDT AKA:BETA HCG QUALITATIVE: us Matthew Salas MD CHEMISTRY ORDERABLES Antonia l Result [facility] [address] [facility] LAB * (ABNORMAL) LIPASE LEVEL (01/11/2009 10:50 AM EDT) Lipase Lvl 8(L) 10 - 71 U/L [facility] VENOUS BLOOD / Unknown 01/11/2009 10:50 AM EDT 01/11/2009 11:01 AM EDT Narrative [facility] - 01/11/2009 11:26 AM EDT AKA:LIPASE: us Matthew Salas MD CHEMISTRY ORDERABLES Atnonia l Result [facility] [address] [place] [address]. [address] LAB documented in this encounter Visit Diagnoses Not on filedocumented in this encounter
--- OUTSIDE RECORDS SUMMARY | 2024-03-14 18:24 | XMS_ITS | Encounter Summary ---
Author Organization [place] [address] Care Team Providers Care Associate Director Of Nursing Name Role Phone Unavailable Primary Care Provider Unavailabl e Encounter Details Date Type Department Care Team (Late st Contact Info) Description 06/04/2004 5:20 AM EST - 06/04/2004 11:59 PM EST Hospital Encounter HST LAB EDG Tcshelia, Thea Pimentel MD [address] [place] [address] Social History Tobacco Use Types Packs/Day Years [...] 04/24/2024 10:45 AM EST Clinical Support [facility] [address] [place] [address] documented as of this encounter Visit Diagnoses Not on filedocumented in this encounter
--- OUTSIDE RECORDS SUMMARY | 2024-03-14 18:24 | XMS_ITS | Encounter Summary ---
Author Organization [place] [address] Care Team Providers Care Machine Maintenance Technician Name Role Phone Unavailable Primary Care Provider Unavailabl e Encounter Details Date Type Department Care Team (Late st Contact Info) Description 11/30/1999 8:22 PM EDT - 11/30/1999 9:05 PM EDT Hospital Encounter [facility] MIN[facility] ER EDG Tommy Hope MD Social History Tobacco Use Types Packs/Day [...] Clinical Support [facility] [address] [place] [phone] documented as of this encounter Visit Diagnoses Not on filedocumented in this encounter
--- OUTSIDE RECORDS SUMMARY | 2024-03-14 18:25 | XMS_ITS | Encounter Summary ---
Author Organization Address [address] [place] [address] Care Team Providers Care Restoration Technician Name Role Phone Marlo Rubio MD Primary Care Provider Fatmata hutchison Source Comments This information has been disclosed to you from confidential records protectfrom disclosure by state law. You shall make no further disclosure of thisinformation without the specific, written, and informed release of theindividual to whom it pertains, or as otherwise permitted by law. A generalauthorization for the release of medical or other information is not sufficientfor the purposes of the release of HIV test results or diagnoses. [id number] Health Reason for Visit * Auth/Cert Specialty Diagnoses / Procedures Referred By Contact Referred To Contact Gastroenterology Diagnoses Anemia Procedures EGD 05953 (CPT??) - [place] ESOPHAGOGASTRODUODENOSCOPY TRANSORAL DIAGNOSTIC 55374 (CPT??) - [place] EGD TRANSORAL BIOPSY SINGLE/MULTIPLE [facility] ENDOSCOPY [address] [place] [address] Phone: tel:[phone] Referral ID Status Reason Start Date Expiration Date Visits Re quested Visits Authorized [id number] 1 1 Encounter Details Date Type Department Care Team (Late st Contact Info) Description 12/02/2017 11:57 AM EDT Anesthesia Event [facility] ENDOSCOPY [address] [place] [phone] Dalia Rivera MD [address] [place] [address] Anesthesia Record Procedure Summary Procedure Name Responsible Anesthesiologist Anesthesia Start Time Anesthesia Stop Time EGD Dalia Rivera MD 12/02/17 1157 12/02/17 12 26 Events Date Time Event Comment 12/02/2017 0803 Anesthesia Prep Start 1157 An Start 1158 An Start Data 1159 An Induction 1200 Time Out 1220 An Emergence 1220 an stop data 1226 An Stop Meds Name Total propofol (DIPRIVAN) 10 mg/ml IV injectio n (BOLUS) 150 mg propofol (DIPRIVAN) 10 mg/ml infusion - 100mL VIAL SIZE 114.15 mg lidocaine (XYLOCAINE) 20 mg/mL (2%) inje ction 5 mL lactated ringers infusion 300 mL * Agents Name N2O Auxiliary O2 O2 N2O Air * Blood No blood administrations on file. Lines, Drains, and Airways Type Details Placement Removal Incision 11/07/16; 1510; Abdo men; david, sterile gauze, tegaderm; 01/12/18; 1414 11/07/16 1510 by Ruben Hemphill RN 01/12/18 1414 by Carolee Tolliver RN Peripheral IV 12/02/17; 0842; 20 G ; Left; Forearm; Chlorhexidine; Tolerated well 12/02/17 0842 by Elba Rhodes RN 12/02/17 1309 by Ulysses Dumont RN documented in this encounter Social History Tobacco Use Types Packs/Day Years Used Date Smoking Tobacco: Never Smokeless Tobacco: Never Alcohol Use Standard Drinks/Week Comments No 0 (1 standard drink = 0.6 oz pur e alcohol) Comments No Sex and Gender Information Value Date Recorded Sex Assigned at Not on file Legal Sex Female 7:46 PM EST Gender Identity Not on file Sexual Orientation Not on file documented as of this encounter Progress Notes * Dalia Rivera MD - 12/02/2017 1:33 PM EDT Anesthesia Post Note Patient: Gardenia Childress Procedure(s) Performed: Procedure(s): EGD Anesthesia type: MAC Patient location: Endoscopy PACU Post pain: Adequate analgesia Post assessment: no apparent anesthetic complications and tolerated procedure well Last Vitals: Vitals: 12/02/17 0817 12/02/17 1230 12/02/17 1245 12/02/17 1300 BP: 128/74 121/76 123/73 130/85 BP Location: Left arm Patient Position: Lying Pulse: 66 60 Resp: 16 Temp: 98.2 ??F (36.8 ??C) TempSrc: Oral SpO2: 100% 100% 100% 100% Weight: 136 lb (61.7 kg) Height: 5' 5 (1.651 m) Post vital signs: stable Level of consciousness: awake and alert Complications: None documented in this encounter H&P Notes * Dalia Rivera MD - 12/02/2017 8:04 AM EDT Images from the original note were not included. [facility] DEPARTMENT OF ANESTHESIOLOGY PRE-PROCEDURAL EVALUATION Gardenia Childress is a 37 y.o. year old female presenting for: Procedure(s): EGD Surgeon: Aaron Rocha MD Chief Complaint Anemia Review of Systems Anesthesia Evaluation Patient summary reviewed, nursing notes reviewed, INSURANCE RISK SURVEYOR/PAT note reviewed and Previous anesthesia note reviewed. No history of anesthetic complications I have reviewed the History and Physical Exam, any relevant changes are noted in the anesthesia pre-operative evaluation. Cardiovascular: Exercise tolerance: good Cummings Met score: 8 - Moving heavy furniture. Rapidly climbing stairs. Carrying 20 pounds up stairs.Valvular problems/murmurs (ASD closure 07/06/2017) related to. (-) hypertension, past HI, cardiomyopathy, CABG/stent, dysrhythmias (pvc's), angina, CHF. Neuro/Muscoloskeletal/Psych: (-) seizures, TIA, CVA, headaches (migraines on topamax ppx and triptan abortive), back problems. Pulmonary: (-) COPD, asthma, shortness of breath. 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 (-) GERD, renal disease. Endo/Other: (+) anemia (with now resolved). (-) diabetes mellitus, hypothyroidism, hyperthyroidism, no thrombocytopenia, no bleeding disorder, no cancer, no DVT, no clotting disorder, no steroid use. No opiate use Past Medical History Past Medical History: Diagnosis Date ??? Anemia gestational ??? 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 Biliary stenosis ??? Migraine ??? Thyroid disease nodule Past Surgical History Past Surgical History: Procedure Laterality Date ??? APPENDECTOMY ??? CHOLECYSTECTOMY ??? RESECTION LIVER N/A 11/07/2016 Procedure: Exploratory Laparotomy, Median Arcuate Ligament Division, Celiac Ganglian plexis injection with ETOH dehydrated; Surgeon: Deborah Parker MD; Location: OR; Service: Transplant; Laterality: N/A; Family History Family History Problem Relation Age of Onset ??? Diabetes Mother ??? Heart disease Mother ??? COPD Mother ??? Stroke Mother ??? Cancer Sister ??? Diabetes Sister Social History Social History Social History ??? Marital status: Spouse name: N/A ??? Number of children: N/A ??? Years of education: N/A Occupational History ??? Not on file. Social History Main Topics ??? Smoking status: Never Smoker ??? Smokeless tobacco: Never Used ??? Alcohol use No ??? Drug use: No ??? Sexual activity: Not on file Other Topics Concern ??? Not on file Social History Narrative ??? No narrative on file Medications Allergies: Allergies Allergen Reactions ??? Aspirin Other (See Comments) Due to biliary atresia ??? Latex, Natural Rubber ??? Morphine Nausea And Vomiting Home Meds: Prior to Admission medications as of 12/02/17 0804 Medication Sig Taking? dicyclomine (BENTYL) 20 mg tablet Take 20 mg by mouth 4 times a day with meals and at bedtime. docusate sodium (COLACE) 100 MG capsule Take 1 capsule (100 mg total) by mouth 2 times a day. esomeprazole magnesium (NEXIUM 24HR) 20 mg TbEC Take 40 mg by mouth daily. FERROUS SULFATE ORAL Take 35 mg by mouth. norethindrone-ethinyl estradiol (ORTHO-NOVUM) 0.5/0.75/1 mg- 35 mcg per tablet Take by mouth. omeprazole (PRILOSEC OTC) 20 MG tablet Take 1 tablet (20 mg total) by mouth daily. oxyCODONE (ROXICODONE) 5 MG immediate release tablet Take 1 tablet (5 mg total) by mouth every 4 hours as needed for Pain. SUMAtriptan (IMITREX) 25 MG tablet Take 25 mg by mouth once as needed for Migraine. topiramate (TOPAMAX) 25 MG sprinkle capsule Take 25 mg by mouth 2 times a day. Inpatient Meds: Scheduled: Continuous: PRN: Vital Signs Wt Readings from Last 3 Encounters: 08/20/17 142 lb (64.4 kg) 05/21/17 144 lb (65.3 kg) 03/19/17 141 lb (64 kg) Ht Readings from Last 3 Encounters: 08/20/17 5' 5 (1.651 m) 05/21/17 5' 5 (1.651 m) 03/19/17 5' 5 (1.651 m) Temp Readings from Last 3 Encounters: 08/20/17 98 ??F (36.7 ??C) (Oral) 05/21/17 97 ??F (36.1 ??C) (Oral) 03/19/17 97.4 ??F (36.3 ??C) (Oral) BP Readings from Last 3 Encounters: 08/20/17 109/75 05/21/17 98/62 03/19/17 101/71 Pulse Readings from Last 3 Encounters: 08/20/17 82 05/21/17 75 03/19/17 70 @LASTSAO2(3)@ Physical Exam Airway: Mallampati: II TM distance: > = 3 FB Neck ROM: full (-) no facial hair, neck not short, not intubated Dental: Pulmonary: - normal exam Breath sounds clear to auscultation. Cardiovascular: - normal exam Rhythm: regular Rate: normal Neuro/Musculoskeletal/Psych: Mental status: alert and oriented to person, place and time. Abdominal: - normal exam Current OB Status: Other Findings: Laboratory Data Lab Results Component Value Date WBC 7.4 02/19/2017 HGB 14.0 02/19/2017 HCT 43.3 02/19/2017 MCV 85.9 02/19/2017 PLT 268 02/19/2017 No results found for: ABORH Lab Results Component Value Date GLUCOSE 82 11/10/2016 BUN 6 (L) 11/10/2016 CO2 24 11/10/2016 CREATININE 0.67 11/10/2016 K 3.6 11/10/2016 NA 140 11/10/2016 CL 108 11/10/2016 CALCIUM 8.6 11/10/2016 ALBUMIN 3.1 (L) 11/10/2016 PROT 6.8 11/04/2016 ALKPHOS 59 11/04/2016 ALT 10 11/04/2016 AST 14 11/04/2016 BILITOT 0.3 11/04/2016 Lab Results Component Value Date INR 1.0 11/04/2016 Lab Results Component Value Date PREGTESTUR Negative 11/07/2016 Anesthesia Plan ASA 2 Female Anesthesia Type: MAC. Intravenous induction. Plan discussed with MOVIE ACTOR and attending. documented in this encounter Plan of Treatment Not on file documented as of this encounter Visit Diagnoses * Transfer of Care - Nile Muse CRNA - 12/02/2017 12:25 PM EDT Anesthesia Transfer of Care Note Patient: Gardenia Childress Procedure(s) Performed: Procedure(s): EGD Patient location: Endoscopy PACU Anesthesia type: MAC Airway Device on Arrival to PACU/ICU: Room Air IV Access: Peripheral Monitors Recommended to be Used During PACU/ICU: Standard Monitors Outstanding Issues to Address: None Level of Consciousness: awake, alert and responds to stimulation Post vital signs: Vitals: 12/02/17 1225 BP: 115/74 Pulse: 67 Resp: 14 Temp: 98.2 ??F (36.8 ??C) SpO2: 100% Complications: None Date 12/01/17699 - 12/02/17 0659(Not Admitted) 12/02/176[address] - 12/03/17 0659 Shift 9560-5506 7672-2860 3418-8497 24 Hour Total 1128-0915 8135-1579 3039-4937 24 Hour Total I N T A K E I.V. 300 (4.9) 300 (4.9) Volume (mL) (lactated Ringers infusion) 300 300 Shift Total (mL/kg) 300 (4.9) 300 (4.9) O U T P U T Shift Total (mL/kg) Weight (kg) 61.7 61.7 61.7 61.7 documented in this encounter Administered Medications Inactive Administered Medications - up to 3 most recent administrations Medication Order MAR Action Action Date Dose Rate Site lactated Ringers infusion Continuous - One Step Medications Only, Starting on Fri12/02/17 at 1159, Anesthesia Intra-op New Bag 12/02/2017 11:59 AM EDT lidocaine (PF) 20 mg/mL (2 %) Soln Intravenous, PRN - One Step Medication Only, Starting on Fri12/02/17 at 1158, Anesthesia Intra-op Given 12/02/2017 11:58 AM EDT 5 mLs propofol (DIPRIVAN) infusion 10 mg/mL Continuous - One Step Medications Only, Starting on Fri12/02/17 at 1200, Anesthesia Intra-op Rate/Dose Change 12/02/2017 12:07 PM EDT 100 mcg/kg/min 37 mL/hr New Bag 12/02/2017 12:00 PM EDT 150 mcg/kg/min 55.5 mL/ hr propofol 10 mg/ml (DIPRIVAN) injection PRN - One Step Medication Only, Starting on Fri12/02/17 at 1159, Anesthesia Intra-op Given 12/02/2017 12:05 PM EDT 50 mg Given 12/02/2017 12:00 PM EDT 50 mg Given 12/02/2017 11:59 AM EDT 50 mg documented in this encounter Additional Health Concerns Assessment Noted Time PHQ-9 Depression Total Score: 10 017 8:00 AM EDT documented as of this encounter Care Teams Restoration Technician Relationship Specialty Start Date End Date Marlo Rubio MD PCP - General Family Medicine 10/09/16 documented as of this encounter
--- OUTSIDE RECORDS SUMMARY | 2024-03-14 18:25 | XMS_ITS | Encounter Summary ---
Author Organization [facility] Address [address] [place] [address] Care Team Providers Care Row Boss Hoeing Name Role Phone Marlo Rubio MD Primary [...] release of HIV test results or diagnoses. [id number] Reason for Visit * Reason Comments Follow-up Encounter Details Date Type Department Care Team (Late st Contact Info) Description 12/24/2017 11:00 AM EDT Office Visit [facility] Hepatobiliary at [address] [phone] Aaron Rocha MD [address] [place] [phone] Diarrhea, unspecified type (Primary Dx); Iron deficiency anemia, unspecified iron deficiency anemia type Social History Tobacco Use Types Packs/Day [...] Reading Time Taken Comments Blood Pressure 118/78 12/24/2017 11:04 AM EDT Pulse 93 12/24/2017 11:04 AM EDT Temperature 36.7 ??C (98.1 ??F) 12/24/2017 11:04 AM E DT Respiratory Rate 18 12/24/2017 11:04 AM EDT Oxygen Saturation 99% 12/24/2017 11:04 AM EDT Inhaled Oxygen Concentration 99% 12/24/2017 1 1:04 AM EDT Weight 60.3 kg (133 lb) 12/24/2017 11:04 AM EDT Height 165.1 cm (5' 5 ) 12/24/2017 11:04 AM EDT Body Mass Index 22.13 12/24/2017 11:04 AM EDT documented in this encounter Patient Instructions * Patient Instructions* Aaron Rocha MD - 12/24/2017 11:00 AM EDT Our plan is as follows: 1. Imaging: none. 2. Labs: none. 3. Medications: No new medications today. 4. Schedule elective colonoscopy. Indication: iron deficiency anemia; diarrhea. 5. Follow-up to be determined. documented in this encounter Progress Notes * Aaron Rocha MD - 12/24/2017 11:00 AM EDT Chief Complaint Patient presents with ??? Follow-up Referring physician: Dr. Deborah Parker CC: Abdominal pain Baseline Medical History: The patient is a 36 y/o F with history of biliary atresia s/p Kasai (hepatoportoenterostomy). I sawher initially in April 2009. She had hospitalization on 11/07/2016-11/10/2016 for abdominal pain secondary to median arcuate ligament syndrome and underwent exploratory laparotomy with release of median arcuate ligament by Dr. Deborah Parker. Prior to her operation, she endorsed post prandial, epigastric pain that was constant innature that occurred for several months. She had an associated, intentional 20 lb weight loss preceding the onset of abdominal pain. 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 Now, post operatively, she states that her abdominal pain prompting evaluation has resolved. She now has some generalized abdominal pain she describes as hunger pains, where she gets hungry and has crampy pain in the lower quadrants that improves with food. She now takes ibuprofen (200 mg po qid) x2 days. Endoscopic history significant for EGD in 2011 which was H. Pylori negative. Otherwise, medications are significant for bentyl, which patient takes for menstraul pain. Laboratory data is significant for normal LFTs, chem-7, and normocytic anemia (hgb 9.0) w/ MCV of 84.4. Interval History: She returns today following EGD on 12/02/2017 which was normal. The EGD was performed per request of her quality improvement analyst to evaluate recent onset anemia. Duodenal biopsies were normal. She has not seen blood in her stools but continues to have diarrhea. She has loose stools, typicallyafter eating. She is not currently taking antidiarrheal medications. She takes control pills a nd has light menstrual periods. Labs on 12/16/2017: WBC-5,600, hgb/hct- 9.9/30.6, plts-354,000, Fe/TIBC- 22/463, % saturation- 5. 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 Medications: Current Outpatient Prescriptions: ??? aspirin 81 MG chewable tablet, Chew 81 mg by mouth daily., Disp: , Rfl: ??? clopidogrel (PLAVIX) 75 mg tablet, Take 75 mg by mouth daily., Disp: , Rfl: ??? cyanocobalamin (VITAMIN B-12) 500 MCG tablet, Take by mouth., Disp: , Rfl: ??? dicyclomine (BENTYL) 20 mg tablet, Take 20 mg by mouth 4 times a day with meals and at bedtime., Disp: , Rfl: ??? docusate sodium (COLACE) 100 MG capsule, Take 1 capsule (100 mg total) by mouth 2 times a day.,Disp: 60 capsule, Rfl: 0 ??? escitalopram oxalate (LEXAPRO) 10 MG tablet, Take 10 mg by mouth daily., Disp: , Rfl: ??? esomeprazole magnesium (NEXIUM 24HR) 20 mg TbEC, Take 40 mg by mouth daily., Disp: 90 tablet, Rfl: 3 ??? FERROUS SULFATE ORAL, Take 35 mg by mouth., Disp: , Rfl: ??? norethindrone-ethinyl estradiol (ORTHO-NOVUM) 0.5/0.75/1 mg- 35 mcg per tablet, Take by mouth.,Disp: , Rfl: ??? omeprazole (PRILOSEC OTC) 20 MG tablet, Take 1 tablet (20 mg total) by mouth daily., Disp: 30 tablet, Rfl: 0 ??? oxyCODONE (ROXICODONE) 5 MG immediate release tablet, Take 1 tablet (5 mg total) by mouth every4 hours as needed for Pain., Disp: 60 tablet, Rfl: 0 ??? SUMAtriptan (IMITREX) 25 MG tablet, Take 25 mg by mouth once as needed for Migraine., Disp: , Rfl: ??? topiramate (TOPAMAX) 25 MG sprinkle capsule, Take 25 mg by mouth 2 times a day., Disp: , Rfl: Allergies: Aspirin; Latex, natural rubber; and Morphine Family History: Her family history includes COPD in her mother; Cancer in her sister; Diabetes in her mother and sister; Heart disease in her mother; Stroke in her mother. Past Surgical History: She has a past surgical history that includes Cholecystectomy; Appendectomy; Resection liver (N/A, 11/07/2016); ASD repair; and Esophagogastroduodenoscopy (N/A, 12/02/2017). Social History: She reports that she has never smoked. She has never used smokeless tobacco. She reports that she does not drink alcohol or use drugs. Review of Systems: * See scanned Review of Systems sheet. Vital Signs: Blood pressure 118/78, pulse 93, temperature 98.1 ??F (36.7 ??C), temperature source Oral, resp. rate 18, height 5' 5 (1.651 m), weight 133 lb (60.3 kg), last menstrual period 12/02/2017, SpO2 99 %. Physical Exam Constitutional: She is oriented to person, place, and time. She appears well- developed and well-nourished. HENT: Head: Normocephalic and atraumatic. Mouth/Throat: Oropharynx is clear and moist. Neck: Neck supple. Cardiovascular: Normal rate and regular rhythm. Pulmonary/Chest: Effort normal and breath sounds normal. Abdominal: Soft. Bowel sounds are normal. She exhibits no distension. There is no tenderness. Musculoskeletal: She exhibits no edema. Neurological: She is alert and oriented to person, place, and time. Skin: Skin is warm. Psychiatric: She has a normal mood and affect. Review of Lab Results: Lab Results Component Value Date WBC 7.4 02/19/2017 HGB 14.0 02/19/2017 HCT 43.3 02/19/2017 MCV 85.9 02/19/2017 PLT 268 02/19/2017 CREATININE 0.67 11/10/2016 BUN 6 (L) 11/10/2016 NA 140 11/10/2016 K 3.6 11/10/2016 CL 108 11/10/2016 CO2 24 11/10/2016 ALT 10 11/04/2016 AST 14 11/04/2016 ALKPHOS 59 11/04/2016 BILITOT 0.3 11/04/2016 Assessment & Plan: Gardenia Childress is a pleasant 37 y/o with hx of biliary atresia s/p Kasai (hepatoportoenterostomy) as well as median arcuate ligament syndrome s/p release of median ligament (11/07/16). She was initiallyreferred for abdominal pain which has since resolved following surgery for median arcuate ligament syndrome. She subsequently developed post-prandial diarrhea. Evaluation for infectious etiologies was negative. She initially responded to a 2 week empiric trial of Cipro/Flagyl for SIBO, but has persistent loose stools. She lost her suddenly secondary to a heart attack at home on 08/04/2017 and is trying to adjust to this. She now has iron deficiency anemia without overt GI bleeding. EGD with duodenal biopsies on 12/02/2017 was unrevealing. Our plan is as follows: 1. Imaging: none. 2. Labs: none. 3. Medications: No new medications today. 4. Schedule elective colonoscopy. Indication: iron deficiency anemia; diarrhea. 5. Follow-up to be determined. The patient was seen in the office by Dr. Aaron Rocha. documented in this encounter Plan of Treatment Not on file documented as of this encounter Visit Diagnoses Diagnosis Diarrhea, unspecified type- Primary Iron deficiency anemia, unspecified iron deficiency anemia type documented in this encounter Additional Health Concerns Assessment Noted Time PHQ-9 Depression Total Score: 10 017 8:00 AM EDT documented as of this encounter Care Teams Row Boss Hoeing Relationship Specialty Start Date End Date Marlo Rubio MD PCP - General Family Medicine 10/09/16 documented as of this encounter
--- OUTSIDE RECORDS SUMMARY | 2024-03-14 18:25 | XMS_ITS | Encounter Summary ---
Author Organization [facility] Address [address] [place] [id number] Care Team Providers [employer] Name Role Phone Marlo Rubio MD Primary [...] release of HIV test results or diagnoses. [id number] Health Reason for Visit * Auth/Cert Specialty Diagnoses / Procedures Referred By Amalia t Referred To Contact Gastroenterology Diagnoses Anemia, diarrhea Procedures COLONOSCOPY W/ OR W/O BIOPSY 63546 (CPT??) - MO COLONOSCOPY FLX DX W/COLLJ SPEC WHEN PFRMD 30836 (CPT??) - MO COLONOSCOPY W/BIOPSY SINGLE/MULTIPLE 55376 (CPT??) - MO COLSC FLX W/RMVL OF TUMOR POLYP LESION SNARE TQ [facility] ENDOSCOPY [address] [place] [address] Phone: tel: Referral ID Status Reason Start Date Expiration Date Visits Re quested Visits Authorized [id number] 1 1 Encounter Details Date Type Department Care Team (Latest Contact Info) Description 01/12/2018 9:13 AM EDT - 01/12/2018 2:05 PM EDT Hospital Encounter [facility] ENDOSCOPY [address] [place] [id number] Aaron Rocha MD [address] [place] [phone] Diarrhea; Anemia, unspecified type; Diarrhea, unspecified type Discharge Disposition: Home or Self Care WITHOUT Home Care Services Social History Tobacco Use Types Packs/Day Years [...] Sign Reading Time Taken Comments Blood Pressure 113/70 01/12/2018 2:00 PM EDT Pulse 70 01/12/2018 2:00 PM EDT Temperature 36.8 ??C (98.2 ??F) 01/12/2018 9:28 AM ED T Respiratory Rate 18 01/12/2018 2:00 PM EDT Oxygen Saturation 95% 01/12/2018 2:00 PM EDT Inhaled Oxygen Concentration 95% 01/12/2018 2 :00 PM EDT Weight 60.3 kg (133 lb) 01/12/2018 9:28 AM EDT Height 165.1 cm (5' 5 ) 01/12/2018 9:28 AM EDT Body Mass Index 22.13 01/12/2018 9:28 AM EDT documented in this encounter Discharge Instructions * Discharge Instructions* Carolee Tolliver RN - 01/12/2018 1:36 PM EDT [facility] ENDOSCOPY INSTRUCTION/RELEASE FORMS Date: 01/12/2018 Procedure: Procedure(s): COLONOSCOPY With BIOPSY IF YOU DEVELOP EXCESSIVE BLEEDING, UNCONTROLLED PAIN OR SHORTNESS OF BREATH, GO TO THE EMERGENCY DEPARTMENT FOR AN EXAMINATION. IF YOU DEVELOP CHILLS, FEVER (greater than 100.5) OR HAVE CONCERNS ABOUT YOUR RECOVERY, CALL Dr Rocha AT [phone]. 1. You may experience lightheadedness and nausea. Rest today; no strenuous activity. 2. DO NOT: ?? Drink alcoholic beverages today. ?? Make serious financial or legal decisions today. ?? Operate automobiles, heavy machinery or use any appliances today. ?? Consult your physician about taking over the counter medications such as Motrin, Advil, Aleve, Ibuprofen or Naprosyn if you've had polyps removed. 3. Diet: ?? Resume your diet as tolerated or recommended by your primary care provider. 4. Medications: ?? The treatment you received today does not change your current medications. ?? New/revised prescriptions given to patient?: No. 5. Side Effects You May Experience: ?? Cramping, gas, bloating, belching. ?? Blood tinged mucous from rectum. 6. Additional: ?? Follow up with Dr Rocha at [phone] for biopsy results and for routine appointment/further testing. All Patient Belongings Have Been Returned: (patient initials) I understand and acknowledge receipt of the above instructions. Patient or Guardian Signature Date/Time Physician's or R.N.'s Signature Date/Time The discharge instructions have been reviewed with the patient and/or Guardian. Patient and/or Guardian signed and retained a printed copy. documented in this encounter Medications at Time of Discharge aspirin 81 MG chewable tablet Chew 81 mg by mouth daily. clopidogrel (PLAVIX) 75 mg tablet Take 75 mg by mouth daily. cyanocobalamin (VITAMIN B-12) 500 MCG tablet Take by mouth. 12/17/2017 dicyclomine (BENTYL) 20 mg tablet Take 20 mg by mouth 4 times a day with meals and at bedtime. docusate sodium (COLACE) 100 MG capsule Take 1 capsule (100 mg total) by mouth 2 times a day. 60 capsule 0 11/10/2016 escitalopram oxalate (LEXAPRO) 10 MG tablet Take 20 mg by mouth daily. esomeprazole magnesium (NEXIUM 24HR) 20 mg TbEC Take 40 mg by mouth daily. 90 tablet 3 11/20/2016 FERROUS SULFATE ORAL Take 35 mg by mouth. norethindrone-eth inyl estradiol (ORTHO-NOVUM) 0.5/0.75/1 mg- 35 mcg per tablet Take by mouth. 08/18/2017 omeprazole (PRILOSEC OTC) 20 MG tablet Take 1 tablet (20 mg total) by mouth daily. 30 tablet 0 09/26/2016 oxyCODONE (ROXICODONE) 5 MG immediate release tablet Take 1 tablet (5 mg total) by mouth every 4 hours as needed for Pain. 60 tablet 0 11/20/2016 SUMAtriptan (IMITREX) 25 MG tablet Take 25 mg by mouth once as needed for Migraine. topiramate (TOPAMAX) 25 MG sprinkle capsule Take 25 mg by mouth 2 times a day. documented as of this encounter H&P Notes * Aaron Rocha MD - 01/12/2018 9:52 AM EDT Pre-sedation Endoscopy History and Physical 01/12/2018 11:52 AM Gardenia Childress is an 37 y.o. female who is here for a COLONOSCOPY W/ OR W/O BIOPSY Reason for exam: Anemia;diarrhea Patient Active Problem List Diagnosis ??? Congenital biliary atresia ??? Cholangitis ??? Status post exploratory laparotomy ??? Anemia ??? Diarrhea History: Past Medical History: Diagnosis Date ??? Anemia gestational ??? ASD (atrial septal defect) ??? 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 Biliary stenosis ??? Migraine ??? Thyroid disease nodule Past Surgical History: Procedure Laterality Date ??? APPENDECTOMY ??? ASD REPAIR ??? CHOLECYSTECTOMY ??? ESOPHAGOGASTRODUODENOSCOPY N/A 12/02/2017 Procedure: EGD; Surgeon: Aaron Rocha MD; Location: ENDOSCOPY; Service: Gastroenterology; Laterality: N/A; ??? RESECTION LIVER N/A 11/07/2016 Procedure: Exploratory Laparotomy, Median Arcuate Ligament Division, Celiac Ganglian plexis injection with ETOH dehydrated; Surgeon: Deborah Parker MD; Location: OR; Service: Transplant; Laterality: N/A; Family History Problem Relation Age of Onset ??? Diabetes Mother ??? Heart disease Mother ??? COPD Mother ??? Stroke Mother ??? Cancer Sister ??? Diabetes Sister Social History Substance Use Topics ??? Smoking status: Never Smoker ??? Smokeless tobacco: Never Used ??? Alcohol use No Allergies Allergen Reactions ??? Latex, Natural Rubber ??? Morphine Nausea And Vomiting Home Medications: Prescriptions Prior to Admission Medication Sig Dispense Refill Last Dose ??? cyanocobalamin (VITAMIN B-12) 500 MCG tablet Take by mouth. Past Week at Unknown time ??? escitalopram oxalate (LEXAPRO) 10 MG tablet Take 10 mg by mouth daily. 01/12/2018 at Unknown time ??? norethindrone-ethinyl estradiol (ORTHO-NOVUM) 0.5/0.75/1 mg- 35 mcg per tablet Take by mouth. 01/12/2018 at Unknown time ??? aspirin 81 MG chewable tablet Chew 81 mg by mouth daily. 01/05/2018 ??? clopidogrel (PLAVIX) 75 mg tablet Take 75 mg by mouth daily. 01/05/2018 ??? dicyclomine (BENTYL) 20 mg tablet Take 20 mg by mouth 4 times a day with meals and at bedtime. not taking ??? docusate sodium (COLACE) 100 MG capsule Take 1 capsule (100 mg total) by mouth 2 times a day. 60 capsule 0 not taking ??? esomeprazole magnesium (NEXIUM 24HR) 20 mg TbEC Take 40 mg by mouth daily. 90 tablet 3 not taking ??? FERROUS SULFATE ORAL Take 35 mg by mouth. Taking ??? omeprazole (PRILOSEC OTC) 20 MG tablet Take 1 tablet (20 mg total) by mouth daily. 30 tablet 0 not taking ??? oxyCODONE (ROXICODONE) 5 MG immediate release tablet Take 1 tablet (5 mg total) by mouth every 4 hours as needed for Pain. 60 tablet 0 not taking ??? SUMAtriptan (IMITREX) 25 MG tablet Take 25 mg by mouth once as needed for Migraine. not taking ??? topiramate (TOPAMAX) 25 MG sprinkle capsule Take 25 mg by mouth 2 times a day. not taking ROS: Chest pain? No Shortness of breath? No Recent illness? Yes Prior Anesthesia? Yes Prior reaction to Anesthesia? No Review of Nursing History/Assessment: Yes IV site verified? Yes Vitals: Blood pressure 132/76, pulse 82, temperature 98.2 ??F (36.8 ??C), temperature source Oral, resp. rate 16, height 5' 5 (1.651 m), weight 133 lb (60.3 kg), last menstrual period 12/23/2017, SpO2 99 %. Physical Exam: Neuro: Alert and Oriented x 4, Follows commands Cardio: Regular rate and rhythm, no murmurs/rub/gallop Pulm: Clear to auscultation bilaterally, no wheezes, rhonchi, rub Abdomen: Soft, nontender, nondistended. Positive bowel sounds. Airway Assessment: within normal limits Mallampati Classification: II (hard and soft palate, upper portion of tonsils anduvula visible) ASA Classification: ASA 2 - Patient with mild systemic disease with no functional limitations Relevant diagnostic tests and images reviewed: Yes Medication Reconciliation Reviewed: Yes Labs: Lab Results Component Value Date GLUCOSE 82 11/10/2016 BUN 6 (L) 11/10/2016 CO2 24 11/10/2016 CREATININE 0.67 11/10/2016 K 3.6 11/10/2016 NA 140 11/10/2016 CL 108 11/10/2016 CALCIUM 8.6 11/10/2016 Lab Results Component Value Date WBC 7.4 02/19/2017 HGB 14.0 02/19/2017 HCT 43.3 02/19/2017 MCV 85.9 02/19/2017 PLT 268 02/19/2017 Lab Results Component Value Date INR 1.0 11/04/2016 Assessment/Plan: COLONOSCOPY W/ OR W/O BIOPSY Sedation plan (type/medications): Deep Sedation propofol Site Marked: Not Applicable Patient / Surrogate has consented for the above procedure. Yes This patient is in satisfactory condition for the procedure and sedation/anesthesia. Yes This patient was reevaluated immediately prior to procedure/sedation. Any changes are noted below. Yes Aaron Rocha 01/12/2018 documented in this encounter Procedure Notes * Aaron Rocha MD - 01/12/2018 12:15 PM EDT [id number] Procedure Date: 01/12/2018 12:15 PM Patient Name: Gardenia Childress Date of : 1980 Admit Type: Outpatient Age: 37 Gender: Female Note Status: Finalized Attending MD: Aaron Rocha MD Procedure: Colonoscopy Indications: The patient is a 37 y.o. female who has recent onset iron deficiency anemia. A prior upper endoscopy was normal. She also has intermittent post-prandial diarrhea. Colonoscopy was planned for further evaluation. Providers: Aaron Rocha MD, Wenceslao Quezada MD (Fellow) Referring MD: Medicines: Monitored Anesthesia Care Complications: No immediate complications. Procedure: Pre-Anesthesia Assessment: - Prior to the procedure, a History and Physical was performed, and patient medications and allergies were reviewed. The patient's tolerance of previous anesthesia was also reviewed. The risks and benefits of the procedure and the sedation options and risks were discussed with the patient. All questions were answered, and informed consent was obtained. Prior Anticoagulants: The patient has taken aspirin. ASA Grade Assessment: II - A patient with mild systemic disease. After reviewing the risks and benefits, the patient was deemed in satisfactory condition to undergo the procedure. - Pre-procedure physical examination revealed no contraindications to sedation. After I obtained informed consent, the scope was passed under direct vision. Throughout the procedure, the patient's blood pressure, pulse, and oxygen saturations were monitored continuously. The Colonoscope was introduced through the anus and advanced to the terminal ileum. The quality of the bowel preparation was poor. The terminal ileum, the ileocecal valve and the appendiceal orifice were photographed. Findings: The terminal ileum appeared normal. The entire colon appeared normal. Biopsies for histology were taken with a cold forceps from the entire colon for evaluation of microscopic colitis. The colon prep was suboptimal with pools of thick fluid scattered in the colon which could not be aspirated. Impression: - Preparation of the colon was suboptimal. A small lesion could have been miss due to suboptimal prep. - The examined portion of the ileum was normal. - The entire examined colon is normal. Biopsies were performed thoughout the colon to evaluate for microscopic colitis. Recommendation: - Patient has a contact number available for emergencies. The signs and symptoms of potential delayed complications were discussed with the patient. Return to normal activities tomorrow. Written discharge instructions were provided to the patient. - Resume previous diet today. - Continue present medications. - Await pathology results. - No repeat colonoscopy. - Return to my office as previously scheduled. Procedure Code(s): --- Professional --- 45210, GC, Colonoscopy, flexible; with biopsy, single or multiple Diagnosis Code(s): --- Professional --- R19.7, Diarrhea, unspecified D50.9, Iron deficiency anemia, unspecified CPT copyright 2016 [employer]. All rights reserved. The codes documented in this report are preliminary and upon custom dressmaker review may be revised to meet current compliance requirements. Attending Participation: I personally performed the entire procedure. Aaron Rocha MD 01/12/2018 1:11:21 PM This report has been signed electronically.Aaron Rocha MD Wenceslao Quezada MD Scope Withdrawal Time 0 hours 19 minutes 54 seconds Total Procedure Duration Time 0 hours 31 minutes 17 seconds Scope In: 12:29:53 PM Scope Out: 1:01:[address] [place] [id number] documented in this encounter Plan of Treatment Not on file documented as of this encounter Procedures Procedure Name Priority Date/Time Associated Diagnosis Comments ENDOSCOPY, COLON Routine 01/12/2018 12:1 5 PM EDT Anemia, unspecified type Diarrhea, unspecified type COLONOSCOPY W/ OR W/O BIOPSY Colonoscopy 01/12/2018 12:15 PM EDT Anemia, unspecified type Diarrhea, unspecified type Special Needs Confirm w/ [facility] SURGICAL PATHOLOGY EXAM Routine 01/12/2018 12:00 AM EDT documented in this encounter Results * Endoscopy, colon, diagnostic (01/12/2018 12:15 PM EDT) 01/12/2018 12:1 5 PM EDT Narrative [facility] - 01/12/2018 1:11 PM EDT [id number] Procedure Date: 01/12/2018 12:15 PM ?Patient Name: Gardenia Childress ? Date of : 1980 ?Admit Type: Outpatient Age: 37 ? Gender: Female Note Status: Finalized ?Attending MD: Aaron Rocha MD Procedure: ? Colonoscopy Indications: ? The patient is a 37 y.o. female who has recent onset ? iron deficiency anemia. A prior upper endoscopy was ? normal. She also has intermittent post-prandial ? diarrhea. Colonoscopy was planned for further evaluation. Providers: ? Aaron Rocha MD, Wenceslao Quezada MD (Fellow) Referring MD: ? Medicines: ? Monitored Anesthesia Care Complications: ? No immediate complications. Procedure: ? Pre-Anesthesia Assessment: ? - Prior to the procedure, a History and Physical was ? performed, and patient medications and allergies were ? reviewed. The patient's tolerance of previous anesthesia ? was also reviewed. The risks and benefits of the ? procedure and the sedation options and risks were ? discussed with the patient. All questions were answered, ? and informed consent was obtained. Prior Anticoagulants: ? The patient has taken aspirin. ASA Grade Assessment: II ? - A patient with mild systemic disease. After reviewing ? the risks and benefits, the patient was deemed in ? satisfactory condition to undergo the procedure. ? - Pre-procedure physical examination revealed no ? contraindications to sedation. ? After I obtained informed consent, the scope was passed ? under direct vision. Throughout the procedure, the ? patient's blood pressure, pulse, and oxygen saturations ? were monitored continuously. The Colonoscope was ? introduced through the anus and advanced to the terminal ? ileum. The quality of the bowel preparation was poor. ? The terminal ileum, the ileocecal valve and the ? appendiceal orifice were photographed. ? Findings: ? The terminal ileum appeared normal. ? The entire colon appeared normal. Biopsies for histology were taken with ? a cold forceps from the entire colon for evaluation of microscopic ? colitis. The colon prep was suboptimal with pools of thick fluid ? scattered in the colon which could not be aspirated. ? Impression: ?- Preparation of the colon was suboptimal. A small ? lesion could have been miss due to suboptimal prep. ? - The examined portion of the ileum was normal. ? - The entire examined colon is normal. Biopsies were ? performed thoughout the colon to evaluate for ? microscopic colitis. Recommendation: ?- Patient has a contact number available for ? emergencies. The signs and symptoms of potential delayed ? complications were discussed with the patient. Return to ? normal activities tomorrow. Written discharge ? instructions were provided to the patient. ? - Resume previous diet today. ? - Continue present medications. ? - Await pathology results. ? - No repeat colonoscopy. ? - Return to my office as previously scheduled. ? Procedure Code(s): ?? --- Professional --- ? 35027, GC, Colonoscopy, flexible; with biopsy, single or ? multiple Diagnosis Code(s): ?? --- Professional --- ? R19.7, Diarrhea, unspecified ? D50.9, Iron deficiency anemia, unspecified CPT copyright 2016 [employer]. All rights reserved. The codes documented in this report are preliminary and upon custom dressmaker review may be revised to meet current compliance requirements. Attending Participation: ? I personally performed the entire procedure. ? Aaron Rocha MD 01/12/2018 1:11:21 PM This report has been signed electronically.Aaron Rocha MD Wenceslao Quezada MD Scope Withdrawal Time 0 hours 19 minutes 54 seconds Total Procedure Duration Time 0 hours 31 minutes 17 seconds Scope In: 12:29:53 PM Scope Out: 1:01:10 PM ? [address] [place], [place] [address] us Aaron Rocha MD GI PROCEDURE ORDERABLES Final Re sult [facility] [address] [place] [address] * Surgical Pathology Exam (01/12/2018 12:00 AM EDT) 01/12/2018 01/12/2018 [facility] - 01/12/2018 12:00 AM EDT CASE: [id number] PATIENT: GARDENIA CHILDRESS Clinical History: ?? Colonoscopy with or without biopsy Pre-Operative Diagnosis: Anemia, diarrhea Post-Operative Diagnosis: ? normal Specimen(s) Submitted: ?? A. Random colon biopsies CPT Code(s): ?? 52040 X 1 Additional Information: FINAL DIAGNOSIS: Colon, random, biopsy: - Benign colonic mucosa with no significant pathologic change. - Negative for microscopic colitis, dysplasia or malignancy. LEXIE/elida Gross Description: Received in formalin, with the patient's name Gardenia Childress and random colon biopsies , is a 2.2 x 1.3 x 0.2 cm aggregate of pink-hernandez tissue, filtered into a biopsy bag and entirely submitted into cassette [id number]. ??(Vandana Holland, PT/mjs) Microscopic Description: Two HE stained slides are examined. ??LEXIE/elida I, the attending pathologist, have personally reviewed all prosector/resident work and pathology slides to determine final diagnosis. Final Diagnosis performed by AUDREY ALVAREZ MD Pathologist Electronically signed 01/13/2018 04:23:13 PM The Pathologist signing this report is located at [facility], [address] [place] [address], [place], [place], [facility] [phone], CLIA ID: [id number] Aaron Rocha MD PATHOLOGY/CYTOLOGY ORDERABLES Fi nal Result SASHA documented in this encounter Visit Diagnoses Diagnosis Diarrhea, unspecified type Anemia, unspecified type Anemia Unspecified anemia Diarrhea documented in this encounter Admitting Diagnoses Diagnosis Anemia Unspecified anemia Diarrhea documented in this encounter Administered Medications Inactive Administered Medications - up to 3 most recent administrations Medication Order MAR Action Action Date Dose Rate Site dextrose 5 % and 0.45 % NaCl infusion 1000 mL 25 mL/hr, Intravenous, Continuous, Starting on Fri01/12/18 at 1000, Pre-procedure(GI)Indications:Anemia, unspecified type,Diarrhea, unspecified type fentaNYL (SUBLIMAZE) injection 12.5 mcg 12.5 mcg, Intravenous, Every 5 min PRN, mild pain (NRS 1-3), and POSS <3, Starting on Fri01/12/18 at 1123, For 48 hours, May alternate fentaNYL with MORPHine OR HYDROmorphone (if ordered), as needed for uncontrolled pain. If POSS score is 4 call physician. May administer in PACU or Prior to Discharge. HIGH ALERT MEDICATION, PACU fentaNYL (SUBLIMAZE) injection 12.5 mcg 12.5 mcg, Intravenous, Every 5 min PRN, moderate pain (NRS-4-6), severe pain (NRS 7-10), and POSS score of 3, Starting on Fri01/12/18 at 1123, For 48 hours, May alternate fentaNYL with MORPHine or HYDROmorphone (if ordered), as needed for uncontrolled pain. If POSS score is 4 call physician. May administer in PACU or Prior to Discharge. HIGH ALERT MEDICATION, PACU fentaNYL (SUBLIMAZE) injection 25 mcg 25 mcg, Intravenous, Every 5 min PRN, moderate pain (NRS-4-6), and POSS <3, Starting on Fri01/12/18 at 1123, For 48 hours, May alternate fentaNYL with MORPHine or HYDROmorphone (if ordered), as needed for uncontrolled pain. May give in increments of 12.5 mcg doses every 5 minutes for patient somnolence. If POSS score is 4 call physician. May administer in PACU or Prior to Discharge. HIGH ALERT MEDICATION, PACU fentaNYL (SUBLIMAZE) injection 50 mcg 50 mcg, Intravenous, Every 5 min PRN, severe pain (NRS 7-10), and POSS <3, Starting on Fri01/12/18 at 1123, For 48 hours, May alternate fentaNYL with MORPHine or HYDROmorphone (if ordered), as needed for uncontrolled pain. May give in increments of 12.5 mcg doses every 5 minutes for patient somnolence. If POSS score is 4 call physician. May administer in PACU or Prior to Discharge. HIGH ALERT MEDICATION, PACU fentaNYL (SUBLIMAZE) injection 6.5 mcg 6.5 mcg (rounded from 6.25 mcg), Intravenous, Every 5 min PRN, mild pain (NRS 1-3), and POSS score of 3, Starting on Fri01/12/18 at 1123, For 48 hours, May alternate fentaNYL with MORPHine OR HYDROmorphone (if ordered), as needed for uncontrolled pain. If POSS score is 4 call physician. May administer in PACU or Prior to Discharge. HIGH ALERT MEDICATION, PACU documented in this encounter Active and Recently Administered Medications Times are shown in EDT. Continuous Medication Order 01/10/2018 01/11/2018 01/12/2018 dextrose 5 % and 0.45 % NaCl infusion 1000 mL 25 mL/hr, Intravenous, Continuous, Starting on Fri01/12/18 at 1000, Pre-procedure(GI) 1000 (Due) lactated Ringers infusion 125 mL/hr, Intravenous, Continuous, Starting on Fri01/12/18 at 1130, PACU 1130 (Due) PRN Medication Order 01/10/2018 01/11/2018 01/12/2018 dexamethasone (DECADRON) injection 4 mg 4 mg, Intravenous, Once as needed, nausea/vomiting, Starting on Fri01/12/18 at 1123, For 1 dose, PACU fentaNYL (SUBLIMAZE) injection 12.5 mcg(Linked Group 1) 12.5 mcg, Intravenous, Every 5 min PRN, mild pain (NRS 1-3), and POSS <3, Starting on Fri01/12/18 at 1123, For 48 hours, May alternate fentaNYL with MORPHine OR HYDROmorphone (if ordered), as needed for uncontrolled pain. If POSS score is 4 call physician. May administer in PACU or Prior to Discharge. HIGH ALERT MEDICATION, PACU fentaNYL (SUBLIMAZE) injection 12.5 mcg(Linked Group 1) 12.5 mcg, Intravenous, Every 5 min PRN, moderate pain (NRS-4-6), severe pain (NRS 7-10), and POSS score of 3, Starting on Fri01/12/18 at 1123, For 48 hours, May alternate fentaNYL with MORPHine or HYDROmorphone (if ordered), as needed for uncontrolled pain. If POSS score is 4 call physician. May administer in PACU or Prior to Discharge. HIGH ALERT MEDICATION, PACU fentaNYL (SUBLIMAZE) injection 25 mcg(Linked Group 1) 25 mcg, Intravenous, Every 5 min PRN, moderate pain (NRS-4-6), and POSS <3, Starting on Fri01/12/18 at 1123, For 48 hours, May alternate fentaNYL with MORPHine or HYDROmorphone (if ordered), as needed for uncontrolled pain. May give in increments of 12.5 mcg doses every 5 minutes for patient somnolence. If POSS score is 4 call physician. May administer in PACU or Prior to Discharge. HIGH ALERT MEDICATION, PACU fentaNYL (SUBLIMAZE) injection 50 mcg(Linked Group 1) 50 mcg, Intravenous, Every 5 min PRN, severe pain (NRS 7-10), and POSS <3, Starting on Fri01/12/18 at 1123, For 48 hours, May alternate fentaNYL with MORPHine or HYDROmorphone (if ordered), as needed for uncontrolled pain. May give in increments of 12.5 mcg doses every 5 minutes for patient somnolence. If POSS score is 4 call physician. May administer in PACU or Prior to Discharge. HIGH ALERT MEDICATION, PACU fentaNYL (SUBLIMAZE) injection 6.5 mcg(Linked Group 1) 6.5 mcg (rounded from 6.25 mcg), Intravenous, Every 5 min PRN, mild pain (NRS 1-3), and POSS score of 3, Starting on Fri01/12/18 at 1123, For 48 hours, May alternate fentaNYL with MORPHine OR HYDROmorphone (if ordered), as needed for uncontrolled pain. If POSS score is 4 call physician. May administer in PACU or Prior to Discharge. HIGH ALERT MEDICATION, PACU lidocaine (PF) 2% (20 mg/mL) Soln 20 mg 20 mg (1 mL), Intradermal, Once as needed, for line access pre-operatively, Starting on Fri01/12/18 at 1052, For 1 dose, For intradermal use only. 1 ml = 20 mg, Pre-op meperidine (PF) (DEMEROL) Soln 12.5 mg 12.5 mg, Intravenous, Every 5 min PRN, for shivering, Starting on Fri01/12/18 at 1053, For 2 doses, May give every 5 minutes x 2 doses. Max total dose of 25mg. PACU only., PACU naloxone (NARCAN) injection 0.04 mg 0.04 mg, Intravenous, Every 15 min PRN, Opioid Reversal, Starting on Fri01/12/18 at 1123, For 8 hours, for RR Less than 8/min or patient is unarousable., PACU ondansetron (ZOFRAN) injection 4 mg 4 mg, Intravenous, Every 8 hours PRN, Nausea and/or Vomiting, Starting on Fri01/12/18 at 1123, For 8 hours, PACU proMETHazine (PHENERGAN) injection 6.25 mg 6.25 mg, Intravenous, Every 6 hours PRN, Nausea and/or Vomiting, Starting on Fri01/12/18 at 1123, For 8 hours, IRRITANT IV Push administration REQUIRES dilution with 10 mL Saline, PACU Linked Groups Order Group 1: fentaNYL (SUBLIMAZE) injection 6.5 mcgJump to med 6.5 mcg (rounded from 6.25 mcg), Intravenous, Every 5 min PRN, mild pain (NRS 1- 3), and POSS score of 3, Starting on Fri01/12/18 at 1123, For 48 hours, May alternate fentaNYL with MORPHine OR HYDROmorphone (if ordered), as needed for uncontrolled pain. If POSS score is 4 call physician. May administer in PACU or Prior to Discharge. HIGH ALERT MEDICATION, PACU Or fentaNYL (SUBLIMAZE) injection 12.5 mcgJump to med 12.5 mcg, Intravenous, Every 5 min PRN, mild pain (NRS 1-3), and POSS <3, Starting on Fri01/12/18 at 1123, For 48 hours, May alternate fentaNYL with MORPHine OR HYDROmorphone (if ordered), as needed for uncontrolled pain. If POSS score is 4 call physician. May administer in PACU or Prior to Discharge. HIGH ALERT MEDICATION, PACU Or fentaNYL (SUBLIMAZE) injection 12.5 mcgJump to med 12.5 mcg, Intravenous, Every 5 min PRN, moderate pain (NRS-4-6), severe pain (NRS 7-10), and POSS score of 3, Starting on Fri01/12/18 at 1123, For 48 hours, May alternate fentaNYL with MORPHine or HYDROmorphone (if ordered), as needed for uncontrolled pain. If POSS score is 4 call physician. May administer in PACU or Prior to Discharge. HIGH ALERT MEDICATION, PACU Or fentaNYL (SUBLIMAZE) injection 25 mcgJump to med 25 mcg, Intravenous, Every 5 min PRN, moderate pain (NRS-4-6), and POSS <3, Starting on Fri01/12/18 at 1123, For 48 hours, May alternate fentaNYL with MORPHine or HYDROmorphone (if ordered), as needed for uncontrolled pain. May give in increments of 12.5 mcg doses every 5 minutes for patient somnolence. If POSS score is 4 call physician. May administer in PACU or Prior to Discharge. HIGH ALERT MEDICATION, PACU Or fentaNYL (SUBLIMAZE) injection 50 mcgJump to med 50 mcg, Intravenous, Every 5 min PRN, severe pain (NRS 7-10), and POSS <3, Starting on Fri01/12/18 at 1123, For 48 hours, May alternate fentaNYL with MORPHine or HYDROmorphone (if ordered), as needed for uncontrolled pain. May give in increments of 12.5 mcg doses every 5 minutes for patient somnolence. If POSS score is 4 call physician. May administer in PACU or Prior to Discharge. HIGH ALERT MEDICATION, PACU documented in this encounter Additional Health Concerns Assessment Noted Time PHQ-9 Depression Total Score: 10 017 8:00 AM EDT documented as of this encounter Care Teams Company Tanker Truck Driver Relationship Specialty Start Date End Date Marlo Rubio MD PCP - General Family Medicine 10/09/16 documented as of this encounter
--- OUTSIDE RECORDS SUMMARY | 2024-03-14 18:25 | XMS_ITS | Encounter Summary ---
Author Organization [facility] Address [address] [place] [address] Care Team Providers Care Proofer Prepress Name Role Phone Marlo Rubio MD Primary [...] release of HIV test results or diagnoses. [id number] Health Reason for Visit * Reason Comments Medication Refill Encounter Details Date Type Department Care Team (Late st Contact Info) Description 11/22/2016 Telephone [facility] Hepatobiliary at [address] [phone] Aaron Rocha MD [address] [place] [phone] Medication Refill Social History Tobacco Use Types Packs/Day Years Used Date Smoking Tobacco: Never Alcohol Use Standard Drinks/Week Comments No 0 (1 standard drink = 0.6 oz pur e alcohol) Comments No Sex and Gender Information Value Date Recorded Sex Assigned at Not on file Legal Sex Female 7:46 PM EST Gender Identity Not on file Sexual Orientation Not on file documented as of this encounter Miscellaneous Notes * Telephone Encounter - Joanne Lubin - 11/22/2016 8:19 AM EDT Received incoming call from pt stating a prescription for Nexium was to have been sent to her pharmacy but they have not received anything. Pt calling to check on it. Will call pharmacy to see if they had received it. Left message on pharmacy voicemail. Per OV note: Our plan is as follows: 1.) Defer EGD at this time.? 2.) PPI q daily (Nexium 40 mg q daily) 3.) Labs: ferritin, iron, Vitamin B12 level 4.) Follow-up as needed. documented in this encounter Plan of Treatment Not on file documented as of this encounter Visit Diagnoses Not on filedocumented in this encounter Additional Health Concerns Assessment Noted Time PHQ-9 Depression Total Score: 10 017 8:00 AM EDT documented as of this encounter Care Teams Proofer Prepress Relationship Specialty Start Date End Date Marlo Rubio MD PCP - General Family Medicine 10/09/16 documented as of this encounter
--- OUTSIDE RECORDS SUMMARY | 2024-03-14 18:25 | XMS_ITS | Encounter Summary ---
Author Organization [facility] Address [address] [place] [address] Care Team Providers Care Carbon Sequestration Plant Operator Name Role Phone Marlo Rubio MD Primary [...] release of HIV test results or diagnoses. [id number] Health Encounter Details Date Type Department Care Team (Late st Contact Info) Description 12/26/2017 Telephone [facility] [place] [facility] [address] [place] [phone] Myrtle Washington, IVETTE Social History Tobacco Use Types Packs/Day Years [...] encounter Miscellaneous Notes * Telephone Encounter - Myrtle Washington RN - 12/29/2017 4:14 PM EDT Spoke w/ patient and instructed her to take her last dose of Plavix on 01/04/[address] Rocha will instruct on when to begin again. Verbalized understanding. 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 Migue Anne as well as clearance to hold Plavix for 7 days. Sent to [employer] to be scanned She is scheduled for 01/12/18 at 11:00 am. Instructed patient on clear liquid diet as well as prep. Instructions mailed as well. documented in this encounter Plan of Treatment Not on file documented as of this encounter Visit Diagnoses Not on filedocumented in this encounter Additional Health Concerns Assessment Noted Time PHQ-9 Depression Total Score: 10 017 8:00 AM EDT documented as of this encounter Care Teams Carbon Sequestration Plant Operator Relationship Specialty Start Date End Date Marlo Rubio MD PCP - General Family Medicine 10/09/16 documented as of this encounter
--- OUTSIDE RECORDS SUMMARY | 2024-03-14 18:25 | XMS_ITS | Encounter Summary ---
Author Organization [facility] Address [address] [place] [address] Care Team Providers Care Cheese Supervisor Name Role Phone Marlo Rubio MD Primary [...] release of HIV test results or diagnoses. [id number] Health Reason for Visit * Reason Comments Advice Only Pt has concerns abou t labs Encounter Details Date Type Department Care Team (Late st Contact Info) Description 06/24/2023 Telephone [facility] Hepatobiliary at [address] [phone] Aaron Rcoha MD [address] [place] [phone] Advice Only (Pt has concerns about labs) Social History Tobacco Use Types Packs/Day Years [...] Telephone Encounter - Myrtle Washington RN - 06/25/2023 10:15 AM EST Response from Dr. Rocha: Abbey, The labs are not concerning. Thanks. MTS Spoke w/ patient and relayed Dr. Rocha's message. Encouraged her to follow up with her PCP. Verbalized understanding. * Telephone Encounter - Myrtle Washington RN - 06/24/2023 2:34 PM EST Spoke w/ patient who states she went to the ER this past weekend for chest pain. Cardiac work up negative however she is concerned over labs drawn at that time. Abnormal results are Platelets 394, total Co2 20 and BUN 20. Advised patient to contact PCP and let them guide her with a possible referral. States she would like Dr. 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 Occasional intermittent abdominal pain, denies nausea or weight loss. BM daily varies in consistency, brown stool, no blood. No recent imaging. Last office visit w/ Dr. Rocha 09/16/18 w/ recommendation to follow up prn. Staff message sent to Dr. Rocha for review and determination of treatment plan. * Telephone Encounter - Nilda Kenya - 06/24/2023 8:31 AM EST Patient called requesting to speak with Dr. Rocha about her recent lab work. She states she was concerned about her liver. Patients last appt was 09/16/18 and I advised she would be considered a new pt at this point but she insisted on speaking with someone. Patient can be reached at [phone] documented in this encounter Plan of Treatment Not on file documented as of this encounter Visit Diagnoses Not on filedocumented in this encounter Additional Health Concerns Assessment Noted Time PHQ-9 Depression Total Score: 10 017 8:00 AM EDT documented as of this encounter Care Teams Cheese Supervisor Relationship Specialty Start Date End Date Marlo Rubio MD PCP - General Family Medicine 6/21/17 documented as of this encounter
--- OUTSIDE RECORDS SUMMARY | 2024-03-14 18:25 | XMS_ITS | Encounter Summary ---
Author Organization [facility] Address [address] [place] [address] Care Team Providers Care Inspector Coated Fabrics Name Role Phone Marlo Rubio MD Primary [...] release of HIV test results or diagnoses. [id number] Health Reason for Visit * Auth/Cert Specialty Diagnoses / Procedures Referred By Amalia t Referred To Contact Gastroenterology Diagnoses Anemia, diarrhea Procedures COLONOSCOPY W/ OR W/O BIOPSY 34988 (CPT??) - CA COLONOSCOPY FLX DX W/COLLJ SPEC WHEN PFRMD 40421 (CPT??) - CA COLONOSCOPY W/BIOPSY SINGLE/MULTIPLE 19928 (CPT??) - CA COLSC FLX W/RMVL OF TUMOR POLYP LESION SNARE TQ [facility] ENDOSCOPY [address] [place] [address] Phone: tel: Referral ID Status Reason Start Date Expiration Date Visits Re quested Visits Authorized [id number] 1 1 Encounter Details Date Type Department Care Team (Late st Contact Info) Description 01/12/2018 11:00 AM EDT - 01/12/2018 12:[address] [facility] ENDOSCOPY [address] [place] [address] Aaron Rocha MD [address] [place] [phone] COLONOSCOPY W/ OR W/O BIOPSY Surgery Details Date/Time Status Location OR Service Patient Class Case Class Case Type Trauma Case? 01/12/2018 11:00 AM Posted ENDOSCOPY [facility] OP Surg/Ambu latory Colonoscopy Panel 1 Procedure LRB Anes Op Region Wound Class Comments COLONOSCOPY W/ OR W/O BIOPSY N/A MAC (Monitor Anesthesia Care) N/A Surgeon Surgeon Role Service Panel Aaron Rocha MD Primary Gastroenterology 1 Special Needs Confirm w/ Abbey documented in this encounter Social History Tobacco [...] Sign Reading Time Taken Comments Blood Pressure 132/76 01/12/2018 9:28 AM EDT Pulse 82 01/12/2018 9:28 AM EDT Temperature 36.8 ??C (98.2 ??F) 01/12/2018 9:28 AM ED T Respiratory Rate 16 01/12/2018 9:28 AM EDT Oxygen Saturation 99% 01/12/2018 9:28 AM EDT Inhaled Oxygen Concentration 99% 01/12/2018 9 :28 AM EDT Weight 60.3 kg (133 lb) 01/12/2018 9:28 AM EDT Height 165.1 cm (5' 5 ) 01/12/2018 9:28 AM EDT Body Mass Index 22.13 01/12/2018 9:28 AM EDT documented in this encounter Discharge Instructions * Discharge Instructions* Carolee Tolliver RN - 01/12/2018 1:36 PM EDT [facility] ENDOSCOPY INSTRUCTION/RELEASE FORMS Date: 01/12/2018 Procedure: Procedure(s): COLONOSCOPY With BIOPSY IF YOU DEVELOP EXCESSIVE BLEEDING, UNCONTROLLED PAIN OR SHORTNESS OF BREATH, GO TO THE EMERGENCY DEPARTMENT FOR AN EXAMINATION. IF YOU DEVELOP CHILLS, FEVER (greater than 100.5) OR HAVE CONCERNS ABOUT YOUR RECOVERY, CALL Dr Rocha AT [phone]. 1. You may experience lightheadedness and nausea. [...] ?? Follow up with Dr Rocha at [phone] for biopsy results and for routine appointment/further [...] Rocha MD - 01/12/2018 12:15 PM EDT [id number] Procedure Date: 01/12/2018 12:15 PM Patient Name: [...] previously scheduled. Procedure Code(s): --- Professional --- 93012, GC, Colonoscopy, flexible; with biopsy, single or multiple Diagnosis Code(s): --- Professional --- R19.7, Diarrhea, unspecified D50.9, Iron deficiency anemia, unspecified CPT copyright 2016 [employer]. All rights reserved. The codes documented in this report are preliminary and upon motor man review may be revised to meet current compliance requirements. Attending Participation: I personally performed the entire procedure. Aaron Rocha MD 01/12/2018 1:11:21 PM This report has been signed electronically.Aaron Rocha MD Wenceslao Quezada MD Scope Withdrawal Time 0 hours 19 minutes 54 seconds Total Procedure Duration Time 0 hours 31 minutes 17 seconds Scope In: 12:29:53 PM Scope Out: 1:01:[address] [place] [id number] documented in this encounter Plan of Treatment [...] EDT) 01/12/2018 12:1 5 PM EDT Narrative [facility] - 01/12/2018 1:11 PM EDT [id number] Procedure Date: 01/12/2018 12:15 PM ?Patient Name: [...] Procedure Code(s): ?? --- Professional --- ? 65631, GC, Colonoscopy, flexible; with biopsy, single or ? multiple Diagnosis Code(s): ?? --- Professional --- ? R19.7, Diarrhea, unspecified ? D50.9, Iron deficiency anemia, unspecified CPT copyright 2016 [employer]. All rights reserved. The codes documented in this report are preliminary and upon motor man review may be revised to meet current [...] 12:29:53 PM Scope Out: 1:01:10 PM ? [address] [place], [place] [id number] Aaron Rocha MD GI PROCEDURE ORDERABLES Final Re sult [facility] [address] [facility] 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 Colonoscopy with or without biopsy Pre-Operative Diagnosis: Anemia, diarrhea Post-Operative Diagnosis: ? normal Specimen(s) Submitted: ?? A. Random colon biopsies CPT Code(s): ?? 70547 X 1 Additional Information: FINAL DIAGNOSIS: Colon, [...] entirely submitted into cassette [id number]. ??(Vandana Holland PT/acosta) Microscopic Description: Two HE stained slides are examined. ??LEXIE/elida I, the attending pathologist, have personally reviewed all prosector/resident work and pathology slides to determine final diagnosis. Final Diagnosis performed by AUDREY ALVAREZ MD Pathologist Electronically signed 01/13/2018 04:23:13 PM The Pathologist signing this report is located at [facility], [address] [place] [address], [place], [address], , CLIA ID: [id number] us Aaron Rocha MD PATHOLOGY/CYTOLOGY ORDERABLES Fi nal Result [facility] documented in this encounter Visit Diagnoses Diagnosis Diarrhea, unspecified type Anemia, unspecified type Anemia Unspecified anemia Diarrhea Anemia, unspecified type Diarrhea, unspecified type documented in this encounter Admitting Diagnoses Diagnosis [...] documented as of this encounter Care Teams Inspector Coated Fabrics Relationship Specialty Start Date End Date Marlo Rubio MD PCP - General Family Medicine 10/09/16 documented as of this encounter
--- OUTSIDE RECORDS SUMMARY | 2024-03-14 18:25 | XMS_ITS | Encounter Summary ---
Author Organization [facility] Address [address] [place] [address] Care Team Providers Care Tribal Judge Name Role Phone Marlo Rubio MD Primary [...] release of HIV test results or diagnoses. [id number] Health Encounter Details Date Type Department Care Team (Late st Contact Info) Description 12/26/2017 Orders Only [facility]enterology at [place] [facility] [address] [place] [phone] Aaron Rocha MD [address] [place] [address] Social History Tobacco Use Types Packs/Day Years [...] as of this encounter Plan of Treatment Not on file documented as of this encounter Visit Diagnoses Not on filedocumented in this encounter Additional Health Concerns Assessment Noted Time PHQ-9 Depression Total Score: 10 08/02/2 017 8:00 AM EDT documented as of this encounter Care Teams Tribal Judge Relationship Specialty Start Date End Date Marlo Rubio MD PCP - General Family Medicine 10/09/16 documented as of this encounter
--- OUTSIDE RECORDS SUMMARY | 2024-03-14 18:25 | XMS_ITS | Encounter Summary ---
Author Organization [facility] Address [address] [place] [address] Care Team Providers Care Rn Maternity Name Role Phone Marlo Rubio MD Primary [...] release of HIV test results or diagnoses. [id number] Health Encounter Details Date Type Department Care Team (Late st Contact Info) Description 11/20/2016 Telephone [facility] [address] [place] [phone] Nilda Sullivan MSW, LISW Social History Tobacco Use Types Packs/Day Years [...] encounter Miscellaneous Notes * Telephone Encounter - CLARE Berry LISW - 11/20/2016 3:25 PM EDT SW received notification that patient scored 10 on the PHQ-9 screening tool. SW contacted patient via phone to assess for psychosocial needs. SW left a voicemail requesting a returned call. PEDRO HAZEL [phone] documented in this encounter Plan of Treatment Not on file documented as of this encounter Visit Diagnoses Not on filedocumented in this encounter Additional Health Concerns Assessment Noted Time PHQ-9 Depression Total Score: 10 017 8:00 AM EDT documented as of this encounter Care Teams Rn Maternity Relationship Specialty Start Date End Date Marlo Rubio MD PCP - General Family Medicine 10/09/16 documented as of this encounter
--- OUTSIDE RECORDS SUMMARY | 2024-03-14 18:25 | XMS_ITS | Encounter Summary ---
Author Organization [facility] Address [address] [place] [address] Care Team Providers Care Certified Scrub Tech Name Role Phone Marlo Rubio MD Primary [...] release of HIV test results or diagnoses. [id number] Health Encounter Details Date Type Department Care Team (Late st Contact Info) Description 12/08/2017 Telephone [facility] at [place] [facility] [address] [place] [phone] Myrtle Washington RN Social History Tobacco Use Types Packs/Day [...] Telephone Encounter - Myrtle Washington RN - 12/08/2017 10:40 AM EDT Patient called and requested appointment prior to 01/21/18 to discuss biopsy and EGD results. Would like to begin treatment if appropriate. Dr. Rocha does not have any availability prior to then. I left her on the schedule for 01/21/18 and have her on the cancellation list. Staff message sent to Dr. Rocha. documented in this encounter Plan of Treatment Not on file documented as of this encounter Visit Diagnoses Not on filedocumented in this encounter Additional Health Concerns Assessment Noted Time PHQ-9 Depression Total Score: 10 017 8:00 AM EDT documented as of this encounter Care Teams Certified Scrub Tech Relationship Specialty Start Date End Date Marlo Rubio MD PCP - General Family Medicine 10/09/16 documented as of this encounter
--- OUTSIDE RECORDS SUMMARY | 2024-03-14 18:25 | XMS_ITS | Encounter Summary ---
Author Organization [facility] Address [address] [place] [address] Care Team Providers Care Financial Reporting Accountant Name Role Phone Marlo Rubio MD Primary [...] release of HIV test results or diagnoses. [id number] Health Encounter Details Date Type Department Care Team (Late st Contact Info) Description 01/14/2018 Telephone [facility] at [place] [facility] [address] [place] [phone] Myrtle Washington RN Social History Tobacco Use [...] Telephone Encounter - Myrtle Washington RN - 01/14/2018 3:09 PM EDT Received return call from patient and scheduled appointment w/ Dr. Rocha on 03/18/18. Patient requested copy of colonoscopy report be sent to her PCP Dr. Margarito Rubio. Mailed to Dr. Rubio [address] [place] [address], [facility] * Telephone Encounter - Myrtle Washington RN - 01/14/2018 3:09 PM EDT ----- Message from Aaron Rocha MD sent at 01/12/2018 2:53 PM EDT ----- Abbey, Please schedule her for a routine follow-up office visit in 2-3 months. Thanks. MTS documented in this encounter Plan of Treatment Not on file documented as of this encounter Visit Diagnoses Not on filedocumented in this encounter Additional Health Concerns Assessment Noted Time PHQ-9 Depression Total Score: 10 017 8:00 AM EDT documented as of this encounter Care Teams Financial Reporting Accountant Relationship Specialty Start Date End Date Marlo Rubio MD PCP - General Family Medicine 10/09/16 documented as of this encounter
--- OUTSIDE RECORDS SUMMARY | 2024-03-14 18:25 | XMS_ITS | Encounter Summary ---
Author Organization [facility] [address] Care Team Providers Care Trains Service Conductor Name Role Phone Unavailable Primary Care Provider Unavailabl e Encounter Details Date Type Department Care Team (Late st Contact Info) Description 11/01/1994 7:32 PM EDT - 11/01/1994 11:59 PM EDT Hospital Encounter [facility] EPIC CON UNK EDG Eros Gunter MD [address] [place] [phone] Social History Tobacco Use Types Packs/Day [...] 04/24/2024 10:45 AM EST Clinical Support [facility] [address] [place] [address] documented as of this encounter Visit Diagnoses Not on filedocumented in this encounter
--- OUTSIDE RECORDS SUMMARY | 2024-03-14 18:25 | XMS_ITS | Encounter Summary ---
Author Organization [facility] Address [facility] [place] [place] [address] Care Team Providers Care Machine Former Name Role Phone Marlo Rubio MD Primary [...] release of HIV test results or diagnoses. [id number] Reason for Referral * Surgical (Routine) - Closed Specialty Diagnoses / Procedures Referred By Contact Referred To Contact Gastroenterology Diagnoses Anemia, unspecified type Procedures Case request GI: EGD IL ESOPHAGOGASTRODUODENOSCOPY TRANSORAL DIAGNOSTIC IL EGD TRANSORAL BIOPSY SINGLE/MULTIPLE Aaron Rocha MD [address] [place] [address] Phone: tel:[phone] fax:[phone] Referral ID Status Reason Start Date Expiration Date Visits Re quested Visits Authorized [id number] Closed 11/24/2017 05/23/2018 1 1 Encounter Details Date Type Department Care Team (Late st Contact Info) Description 11/24/2017 Orders Only [facility] Gastroenterology at [facility] Office [address] [place] [address] [address] [place] [address] Aaron Rocha MD [address] [place] [phone] Anemia, unspecified type (Primary Dx) Social History [...] as of this encounter Visit Diagnoses Diagnosis Anemia, unspecified type- Primary documented in this encounter Additional Health Concerns Assessment Noted Time PHQ-9 Depression Total Score: 10 017 8:00 AM EDT documented as of this encounter Care Teams Machine Former Relationship Specialty Start Date End Date Marlo Rubio MD PCP - General Family Medicine 10/09/16 documented as of this encounter
--- OUTSIDE RECORDS SUMMARY | 2024-03-14 18:25 | XMS_ITS | Encounter Summary ---
Author Organization [place] [address] Care Team Providers Care Rake Operator Name Role Phone Unavailable Primary Care Provider Unavailabl e Encounter Details Date Type Department Care Team (Late st Contact Info) Description 04/24/1997 6:51 PM EST - 04/24/1997 11:59 PM EST Hospital Encounter [facility] [...] Clinical Support [facility] [address] [place] [phone] documented as of this encounter Visit Diagnoses Not on filedocumented in this encounter
--- OUTSIDE RECORDS SUMMARY | 2024-03-14 18:25 | XMS_ITS | Encounter Summary ---
Author Organization [facility] Address [address] [place] [address] Care Team Providers Care Psychiatry Teacher Name Role Phone Marlo Rubio MD Primary [...] release of HIV test results or diagnoses. [id number] [facility] Reason for Visit * Reason Comments Follow-up Encounter Details Date Type Department Care Team (Late st Contact Info) Description 08/20/2017 11:00 AM EDT Office Visit [facility] Hepatobiliary at [address] [phone] Aaron Rocha MD [address] [place] [phone] Diarrhea, unspecified type (Primary Dx) Social History Tobacco [...] Sign Reading Time Taken Comments Blood Pressure 109/75 08/20/2017 11:14 AM EDT Pulse 82 08/20/2017 11:14 AM EDT Temperature 36.7 ??C (98 ??F) 08/20/2017 11:14 AM EDT Respiratory Rate 18 08/20/2017 11:14 AM EDT Oxygen Saturation 100% 08/20/2017 11:14 AM EDT Inhaled Oxygen Concentration 100% 08/20/2017 1 1:14 AM EDT Weight 64.4 kg (142 lb) 08/20/2017 11:14 AM EDT Height 165.1 cm (5' 5 ) 08/20/2017 11:14 AM EDT Body Mass Index 23.63 08/20/2017 11:14 AM EDT documented in this encounter Patient Instructions * Patient Instructions* Aaron Rocha MD - 08/20/2017 11:00 AM EDT Our plan is as follows: 1. Labs: none today 2. Imaging: none today. 3. We will not add new medications or additional testing at this time. 4. Return to clinic as needed. documented in this encounter Progress Notes * Aaron Rocha MD - 08/20/2017 11:00 AM EDT No chief complaint on file. Referring physician: Dr. Deborah Parker CC: Abdominal pain Baseline Medical History: The patient is a 36 y/o F with history of biliary atresia s/p Kasai (hepatoportoenterostomy). I saw initially in April 2009. She had hospitalization [...] w/ MCV of 84.4. Interval History: She presents today for follow-up of post-prandial diarrhea. Evaluation for infectious etiologies was negative. I last saw her in the office on 05/21/2017. She had received an empirictrial of Cipro/Flagyl for small bowel bacterial overgrowth. She continues to feel better overall. She lost on suddenly to a heart attack on 08/04/2017. She is eating less and has lost weight. She feels depressed. 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 Medications: Current Outpatient Prescriptions: ??? dicyclomine (BENTYL) 20 mg tablet, Take 20 mg by mouth 4 times a day with meals and at bedtime., Disp: , Rfl: ??? docusate sodium (COLACE) 100 MG capsule, Take 1 capsule (100 mg total) by mouth 2 times a day.,Disp: 60 capsule, Rfl: 0 ??? esomeprazole magnesium (NEXIUM 24HR) 20 mg TbEC, Take 40 mg by mouth daily., Disp: 90 tablet, Rfl: 3 ??? FERROUS SULFATE ORAL, Take 35 mg by mouth., Disp: , Rfl: ??? omeprazole (PRILOSEC OTC) 20 [...] past surgical history that includes Cholecystectomy; Appendectomy; and Resection liver (N/A, 11/07/2016). Social History: She reports that she has never smoked. She has never used smokeless tobacco. She reports that she does not drink alcohol or use drugs. Review of Systems: * See scanned Review of Systems sheet. Vital Signs: There were no vitals taken for this visit. Physical Exam Constitutional: She is oriented to [...] Evaluation for infectious etiologies was negative. She is now doing better after a 2 week empiric trial of Cipro/Flagyl for SIBO. She lost her suddenly secondary to a heart attack at home on 08/04/2017 and is trying to adjust to this. Our plan is as follows: 1. Labs: none today 2. Imaging: none today. 3. We will not add new medications or additional testing at this time. 4. Return to clinic as needed. The patient was seen in the office by Dr. Aaron Rocha. documented in this encounter Plan of Treatment Not on file documented as of this encounter Visit Diagnoses Diagnosis Diarrhea, unspecified type- Primary documented in this encounter Additional Health Concerns Assessment Noted Time PHQ-9 Depression Total Score: 10 017 8:00 AM EDT documented as of this encounter Care Teams Psychiatry Teacher Relationship Specialty Start Date End Date Marlo Rubio MD PCP - General Family Medicine 10/09/16 documented as of this encounter
--- OUTSIDE RECORDS SUMMARY | 2024-03-14 18:25 | XMS_ITS | Encounter Summary ---
Author Organization [place] [address] Care Team Providers Care Supervisor Meter Shop Name Role Phone Unavailable Primary Care Provider Unavailabl e Encounter Details Date Type Department Care Team (Late st Contact Info) Description 07/27/1997 10:07 AM EDT - 07/27/1997 11:59 PM EDT Hospital Encounter [facility] [...] Clinical Support [facility] [address] [place] [phone] documented as of this encounter Visit Diagnoses Not on filedocumented in this encounter
--- OUTSIDE RECORDS SUMMARY | 2024-03-14 18:25 | XMS_ITS | Encounter Summary ---
Author Organization [facility] Address [address] [place] [address] Care Team Providers Care Upper Lining Cementer Name Role Phone Marlo Rubio MD Primary [...] release of HIV test results or diagnoses. [id number] Reason for Visit * Reason Comments Follow-up Encounter Details Date Type Department Care Team (Late st Contact Info) Description 05/21/2017 8:00 AM EST Office Visit [facility] Hepatobiliary at [address] [phone] Aaron Rocha MD [address] [place] [phone] Diarrhea, unspecified type (Primary Dx) Social [...] Sign Reading Time Taken Comments Blood Pressure 98/62 05/21/2017 8:43 AM EST Pulse 75 05/21/2017 8:43 AM EST Temperature 36.1 ??C (97 ??F) 05/21/2017 8:43 AM EST Respiratory Rate 18 05/21/2017 8:43 AM EST Oxygen Saturation 97% 05/21/2017 8:43 AM EST Inhaled Oxygen Concentration 97% 05/21/2017 8 :43 AM EST Weight 65.3 kg (144 lb) 05/21/2017 8:43 AM EST Height 165.1 cm (5' 5 ) 05/21/2017 8:43 AM EST Body Mass Index 23.96 05/21/2017 8:43 AM EST documented in this encounter Patient Instructions * Patient Instructions* Aaron Rocha MD - 05/21/2017 8:00 AM EST Our plan is as follows: 1. Labs: none today 2. Imaging: none today. 3. We will not add new medications or additional testing at this time. 4. Return to clinic in 3 months documented in this encounter Progress Notes * Aaron Rocha MD - 05/21/2017 8:00 AM EST Chief Complaint Patient presents with ??? Follow-up Referring physician: Dr. Deborah Parker CC: Abdominal pain Baseline Medical History: The patient is a 36 y/o F with history of biliary atresia s/p Kasai (hepatoportoenterostomy) who presents upon referral of abdominal pain. I saw her once previously in April 2009. She had recent hospitalization on 11/07/2016-11/10/2016 for abdominal pain secondary to median arcuate ligament syndrome and underwent exploratory laparotomy with release of median arcuate ligament by Dr. Deborah Parker. She is currently POD 13. Prior to her operation, patient endorsed post prandial, e pigastric pain that was constant in nature that occurred for several months. She had an associated,intentional 20 lb weight loss preceding the onset [...] last saw her in the office on 03/19/2017 at which time she was givenan empiric trial of Cipro/Flagyl for small bowel bacterial overgrowth. She is feeling better overall. She no longer has daily diarrhea. She has 2-3 episodes per week when she has 1-2 loose stools/day. No formed stools. Her weight is stable and appetite is good. She was hospitalized earlier this month at [facility] with chest pain. Incidentally noted to have an atrial septal defect. Past Medical History: She has a past [...] daily., Disp: 30 tablet, Rfl: 0 ??? SUMAtriptan (IMITREX) 25 MG tablet, Take 25 mg by mouth once as needed for Migraine., Disp: , Rfl: ??? topiramate (TOPAMAX) 25 MG sprinkle capsule, Take 25 mg by mouth 2 times a day., Disp: , Rfl: ??? oxyCODONE (ROXICODONE) 5 MG immediate release tablet, Take 1 tablet (5 mg total) by mouth every4 hours as needed for Pain., Disp: 60 tablet, Rfl: 0 Allergies: Aspirin; Latex, natural rubber; and Morphine [...] of Systems sheet. Vital Signs: Blood pressure 98/62, pulse 75, temperature 97 ??F (36.1 ??C), temperature source Oral, resp. rate 18, height 5' 5 (1.651 m), weight 144 lb (65.3 kg), SpO2 97 %. Physical Exam Constitutional: She is oriented [...] & Plan: Gardenia Childress is a pleasant 36 y/o with hx of biliary atresia s/p Kasai (hepatoportoenterostomy) as well as median arcuate ligament syndrome s/p release of median ligament (11/07/16). She was initiallyreferred for abdominal pain which has since resolved. She subsequently developed post-prandial diarrhea. Evaluation for infectious etiologies was negative. She is now doing better after a 2 week empiric trial of Cipro/Flagyl for SIBO. Our plan is as follows: 1. Labs: none today 2. Imaging: none today. 3. We will not add new medications or additional testing at this time. 4. Return to clinic in 3 months The patient was seen in the office by Dr. Aaron Rocha. documented in this encounter Plan of Treatment Not on file documented as of this encounter Visit Diagnoses Diagnosis Diarrhea, unspecified type- Primary documented in this encounter Additional Health Concerns Assessment Noted Time PHQ-9 Depression Total Score: 10 017 8:00 AM EDT documented as of this encounter Care Teams Upper Lining Cementer Relationship Specialty Start Date End Date Marlo Rubio MD PCP - General Family Medicine 10/09/16 documented as of this encounter
--- OUTSIDE RECORDS SUMMARY | 2024-03-14 18:25 | XMS_ITS | Encounter Summary ---
Author Organization [facility] Address [address] [place] [address] Care Team Providers Care Foam Gun Operator Name Role Phone Marlo Rubio MD [...] release of HIV test results or diagnoses. [id number] Encounter Details Date Type Department Care Team (Late st Contact Info) Description 12/23/2017 Telephone [facility] at [facility] [address] [place] [phone] Myrtle Washington RN Social History Tobacco Use [...] Telephone Encounter - Myrtle Washington RN - 12/23/2017 1:06 PM EDT Spoke w/ patient and relayed 's message. * Telephone Encounter - Myrtle Washington RN - 12/23/2017 1:06 PM EDT ----- Message from Aaron Rocha MD sent at 12/18/2017 8:03 PM EDT ----- I told her that it was something I would consider during her next office visit. MTS ----- Message ----- From: Myrtle Washington RN Sent: 12/18/2017 3:28 PM To: MD Dr. Aj Mcclelland, Patient called and states that you mentioned after her procedure that she should be scheduled for colonoscopy. Ok to schedule? Thanks! Abbey documented in this encounter Plan of Treatment Not on file documented as of this encounter Visit Diagnoses Not on filedocumented in this encounter Additional Health Concerns Assessment Noted Time PHQ-9 Depression Total Score: 10 017 8:00 AM EDT documented as of this encounter Care Teams Foam Gun Operator Relationship Specialty Start Date End Date Marlo Rubio MD PCP - General Family Medicine 10/09/16 documented as of this encounter
--- OUTSIDE RECORDS SUMMARY | 2024-03-14 18:25 | XMS_ITS | Clinical Summary ---
Author Organization [facility] Address [address] [place] [address] Care Team Providers Care Teacher Hearing Impaired Name Role Phone Josafat Rubio MD Primary Care Provider Fatmata hutchison Source Comments This information has been disclosed to you from confidential records protectedfrom disclosure by state law. You shall make no further disclosure of thisinformation without the specific, written, and informed release of theindividual to whom it pertains, or as otherwise permitted by law. A generalauthorization for the release of medical or other information is not sufficientfor the purposes of therelease of HIV test results or diagnoses. [id number] Allergies Active Allergy Reactions Criticality Noted Date Comments Latex, Natural Rubber 11/07/2016 Metronidazole Rash Low 04/20/2018 Morphine Nausea And Vomiting 09/26/2016 Medications topiramate (TOPAMAX) 25 MG sprinkle capsule Take 25 mg by mouth 2 times a day. Active SUMAtriptan (IMITREX) 25 MG tablet Take 25 mg by mouth once as needed for Migraine. Active dicyclomine (BENTYL) 20 mg tablet Take 20 mg by mouth 4 times a day with meals and at bedtime. Active omeprazole (PRILOSEC OTC) 20 MG tablet Take 1 tablet (20 mg total) by mouth daily. 30 tablet 0 09/26/2016 Active docusate sodium (COLACE) 100 MG capsule Take 1 capsule (100 mg total) by mouth 2 times a day. 60 capsule 0 11/10/2016 Active esomeprazole magnesium (NEXIUM 24HR) 20 mg TbEC Take 40 mg by mouth daily. 90 tablet 3 11/20/2016 Active oxyCODONE (ROXICODONE) 5 MG immediate release tablet Take 1 tablet (5 mg total) by mouth every 4 hours as needed for Pain. 60 tablet 0 11/20/2016 Active FERROUS SULFATE ORAL Take 35 mg by mouth. Active norethindrone-e thinyl estradiol (ORTHO-NOVUM) 0.5/0.75/1 mg- 35 mcg per tablet Take by mouth. 08/18/2017 Active clopidogrel (PLAVIX) 75 mg tablet Take 75 mg by mouth daily. Active aspirin 81 MG chewable tablet Chew 81 mg by mouth daily. Active escitalopram oxalate (LEXAPRO) 10 MG tablet Take 20 mg by mouth daily. Active cyanocobalamin (VITAMIN B-12) 500 MCG tablet Take by mouth. 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 Cholangitis 12/11/2006 Immunizations Name Administration Dates Next Due DTaP, 5 pertussis antigens 04/22/2008 Family History Medical History Relation Comments COPD Mother Diabetes Mother Heart disease Mother Stroke Mother Cancer Sister Diabetes Sister Relation Status Comments Father Alive Mother Alive Sister Alive Social History Tobacco Use Types Packs/Day [...] Sign Reading Time Taken Comments Blood Pressure 115/74 09/16/2018 10:54 AM EDT Pulse 85 09/16/2018 10:54 AM EDT Temperature 36.2 ??C (97.1 ??F) 09/16/2018 10:54 AM E DT Respiratory Rate 18 09/16/2018 10:54 AM EDT Oxygen Saturation 100% 09/16/2018 10:54 AM EDT Inhaled Oxygen Concentration 100% 09/16/2018 1 0:54 AM EDT Weight 68.9 kg (152 lb) 09/16/2018 10:54 AM EDT Height 165.1 cm (5' 5 ) 09/16/2018 10:54 AM EDT Body Mass Index 25.29 09/16/2018 10:54 AM EDT Plan of Treatment Not on file Insurance [facility] care Address: [facility] [id number] [place] [address] Advance Directives For more information, please contact: [phone] * Full Code (Latest Code Status on File) Date Activated Date Inactivated Comments 11/07/2016 3:30 PM 11/10/2016 8:17 PM Care Teams Teacher Hearing Impaired Relationship Specialty Start Date End Date Josafat Rubio MD PCP - General Family Medicine 10/09/16
--- OUTSIDE RECORDS SUMMARY | 2024-03-14 18:25 | XMS_ITS | Encounter Summary ---
Author Organization [facility] Address [address] [place] [address] Care Team Providers Care Motor Bike Mechanic Name Role Phone Marlo Rubio MD Primary [...] release of HIV test results or diagnoses. [id number] Health Encounter Details Date Type Department Care Team (Late st Contact Info) Description 01/22/2018 Abstract [facility] G[facility]ology at [facility] [address] [place] [phone] Juli Rocha MA Social History Tobacco Use Types Packs/Day Years [...] Procedure Name Priority Date/Time Associated Diagnosis Comments COLONOSCOPY Routine 01/12/2018 documented in this encounter Results * COLONOSCOPY (01/12/2018) Colonoscopy Preparation of the colon was suboptimal. Bx throughout colon c/w colonic mucosa. Otherwise normal exam. No repeat colo necessary. us Historical Provider HEALTH MAINTENANCE Final Result documented in this encounter Visit Diagnoses Not on filedocumented in this encounter Additional Health Concerns Assessment Noted Time PHQ-9 Depression Total Score: 10 017 8:00 AM EDT documented as of this encounter Care Teams Motor Bike Mechanic Relationship Specialty Start Date End Date Marlo Rubio MD PCP - General Family Medicine 10/09/16 documented as of this encounter
--- OUTSIDE RECORDS SUMMARY | 2024-03-14 18:25 | XMS_ITS | Encounter Summary ---
Author Organization [facility] Address [address] [place] [address] Care Team Providers Care Pediatric Physician Name Role Phone Marlo Rubio MD Primary [...] release of HIV test results or diagnoses. [id number] Health Reason for Visit * Auth/Cert Specialty Diagnoses / Procedures Referred By Contact Referred To Contact Gastroenterology Diagnoses Anemia Procedures EGD 08503 (CPT??) - [place] ESOPHAGOGASTRODUODENOSCOPY TRANSORAL DIAGNOSTIC 91647 (CPT??) - [place] EGD TRANSORAL BIOPSY SINGLE/MULTIPLE [facility] ENDOSCOPY [address] [place] [address] Phone: tel:[phone] Referral ID Status Reason Start Date Expiration Date Visits Re quested Visits Authorized [id number] 1 1 Encounter Details Date Type Department Care Team (Latest Contact Info) Description 12/02/2017 7:47 AM EDT - 12/02/2017 1:15 PM EDT Hospital Encounter [facility] ENDOSCOPY [address] [place] [address] Aaron Rocha MD [address] [place] [address] Anemia; Anemia, unspecified type Discharge Disposition: Home or [...] Sign Reading Time Taken Comments Blood Pressure 130/85 12/02/2017 1:00 PM EDT Pulse 60 12/02/2017 12:30 PM EDT Temperature 36.8 ??C (98.2 ??F) 12/02/2017 8:17 AM ED T Respiratory Rate 16 12/02/2017 8:17 AM EDT Oxygen Saturation 100% 12/02/2017 1:00 PM EDT Inhaled Oxygen Concentration 100% 12/02/2017 1 :00 PM EDT Weight 61.7 kg (136 lb) 12/02/2017 8:17 AM EDT Height 165.1 cm (5' 5 ) 12/02/2017 8:17 AM EDT Body Mass Index 22.63 12/02/2017 8:17 AM EDT documented in this encounter Discharge Instructions * Discharge Instructions* Ulysses Dumont RN - 12/02/2017 12:58 PM EDT [facility] ENDOSCOPY INSTRUCTION/RELEASE FORMS Date: 12/02/2017 Procedure: Procedure(s): EGD IF YOU DEVELOP EXCESSIVE BLEEDING, UNCONTROLLED PAIN OR SHORTNESS OF BREATH, GO TO THE EMERGENCY DEPARTMENT FOR AN EXAMINATION. IF YOU DEVELOP CHILLS, FEVER (greater than 100.5) OR HAVE CONCERNS ABOUT YOUR RECOVERY, CALL [phone] and ask for the G.I. Fellow on-call. 1. You may experience lightheadedness and nausea. Rest today; no strenuous activity. 2. DO NOT: ?? Drink alcoholic beverages today. ?? Make serious financial or legal decisions today. ?? Operate automobiles, heavy machinery or use any appliances today. 3. Diet: ?? Resume your diet as tolerated or recommended by your primary care provider. 4. Medications: ?? The treatment you received today does not change your current medications. ?? New/revised prescriptions given to patient?: No. 5. Side Effects You May Experience: ?? Sore throat. ?? Cramping, gas, bloating, belching. 6. Additional: All Patient Belongings Have Been Returned: (patient [...] tablet Take 75 mg by mouth daily. dicyclomine (BENTYL) 20 mg tablet Take 20 [...] as of this encounter H&P Notes * Wenceslao Quezada MD - 12/02/2017 9:15 AM EDT Pre-sedation Endoscopy History and Physical 12/02/2017 9:12 AM Ishan Childress is an 37 y.o. female who is here for a EGD Reason for exam: chest tightness. Referred by her collection card clerk. Patient Active Problem List Diagnosis ??? Congenital biliary atresia ??? Cholangitis ??? Status post exploratory laparotomy ??? Anemia History: Past Medical History: Diagnosis Date ??? Anemia gestational ??? ASD (atrial septal defect) ??? 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 Biliary stenosis ??? Migraine ??? Thyroid disease nodule Past Surgical History: Procedure Laterality Date ??? APPENDECTOMY ??? ASD REPAIR ??? CHOLECYSTECTOMY ??? RESECTION LIVER N/A 11/07/2016 [...] Alcohol use No Allergies Allergen Reactions ??? Aspirin Other (See Comments) Due to biliary atresia ??? Latex, Natural Rubber ??? Morphine Nausea And Vomiting Home Medications: Prescriptions Prior to Admission Medication Sig Dispense Refill Last Dose ??? aspirin 81 MG chewable tablet Chew 81 mg by mouth daily. 12/01/2017 at Unknown time ??? clopidogrel (PLAVIX) 75 mg tablet Take 75 mg by mouth daily. 12/01/2017 at Unknown time ??? escitalopram oxalate (LEXAPRO) 10 MG tablet Take 10 mg by mouth daily. 12/01/2017 at Unknown time ??? norethindrone-ethinyl estradiol (ORTHO-NOVUM) 0.5/0.75/1 mg- 35 mcg per tablet Take by mouth. 12/01/2017 at Unknown time ??? dicyclomine (BENTYL) 20 mg tablet Take 20 mg by mouth 4 times a day with meals and at bedtime. More than a month at Unknown time ??? docusate sodium (COLACE) 100 MG capsule Take 1 capsule (100 mg total) by mouth 2 times a day. 60 capsule 0 not taking ??? esomeprazole magnesium (NEXIUM 24HR) 20 mg TbEC Take 40 mg by mouth daily. 90 tablet 3 not taking ??? FERROUS SULFATE ORAL Take 35 mg by mouth. not taking ??? omeprazole (PRILOSEC OTC) 20 MG tablet [...] No Shortness of breath? No Recent illness? No Prior Anesthesia? Yes Prior reaction to Anesthesia? No Review of Nursing History/Assessment: Yes IV site verified? Yes Vitals: Blood pressure 128/74, pulse 66, temperature 98.2 ??F (36.8 ??C), temperature source Oral, resp. rate 16, height 5' 5 (1.651 m), weight 136 lb (61.7 kg), last menstrual period 12/02/2017, SpO2 100 %. Physical Exam: Neuro: Alert and Oriented x 4, Follows commands Cardio: Regular rate and rhythm, no murmurs/rub/gallop Pulm: Clear to auscultation bilaterally, no wheezes, rhonchi, rub Abdomen: Soft, nontender, nondistended. Positive bowel sounds. Airway Assessment: within normal limits Mallampati Classification: II (hard and soft palate, upper portion of tonsils anduvula visible) ASA Classification: ASA 3 - Patient with moderate systemic disease with functional limitations Relevant diagnostic tests and images [...] Component Value Date INR 1.0 11/04/2016 Assessment/Plan: EGD Sedation plan (type/medications): Deep Sedation propofol Site Marked: Not Applicable Patient / Surrogate has consented for the above procedure. Yes This patient is in satisfactory condition for the procedure and sedation/anesthesia. Yes This patient was reevaluated immediately prior to procedure/sedation. Any changes are noted below. Yes Wenceslao Quezada 12/02/2017 documented in this encounter Procedure Notes * Aaron Rocha MD - 12/02/2017 11:56 AM EDT [id number] Procedure Date: 12/02/2017 11:56 AM Patient Name: Ishan Childress Date of : 1980 Admit Type: Outpatient Age: 37 Gender: Female Note Status: Finalized Attending MD: Aaron Rocha MD Procedure: Upper GI endoscopy Indications: The patient is a 37 y.o. female who experienced chest discomfort and was found to be anemic. EGD was planned per request of her collection card clerk. Providers: Aaron Rocha MD Referring MD: Aaron Rocha MD Medicines: Monitored Anesthesia Care Complications: No immediate complications. Procedure: Pre-Anesthesia Assessment: - Pre-procedure physical examination revealed no contraindications to sedation. After obtaining informed consent, the endoscope was passed under direct vision. Throughout the procedure, the patient's blood pressure, pulse, and oxygen saturations were monitored continuously. The endoscope was introduced through the mouth, and advanced to the second part of duodenum. The upper GI endoscopy was accomplished without difficulty. The patient tolerated the procedure well. Findings: The examined esophagus was normal. The entire examined stomach was normal. The duodenal bulb and second portion of the duodenum were normal. Biopsies for histology were taken with a cold forceps for evaluation of celiac disease. Impression: - Normal esophagus. - Normal stomach. - Normal duodenal bulb and second portion of the duodenum. Biopsied. Recommendation: - Patient has a contact number available for emergencies. The signs and symptoms of potential delayed complications were discussed with the patient. Return to normal activities tomorrow. Written discharge instructions were provided to the patient. - Resume previous diet today. - Continue present medications. - Await pathology results. - Return to my office at appointment to be scheduled. Procedure Code(s): --- Professional --- 72197, Esophagogastroduodenoscopy, flexible, transoral; with biopsy, single or multiple Diagnosis Code(s): --- Professional --- D50.9, Iron deficiency anemia, unspecified R07.9, Chest pain, unspecified CPT copyright 2016 [employer]. All rights reserved. The codes documented in this report are preliminary and upon mgmt specialist review may be revised to meet current compliance requirements. Aaron Rocha MD 12/02/2017 1:19:41 PM This report has been signed electronically.Aaron Rocha MD Total Procedure Duration Time 0 hours 9 minutes 28 seconds Scope In: 12:06:26 PM Scope Out: 12:15:[address] [place] [id number] documented in this encounter Plan of Treatment Not on file documented as of this encounter Procedures Procedure Name Priority Date/Time Associated Diagnosis Comments EGD EGD/Sm Bowel 12/02/2017 11:59 AM EDT Anemia, unspecified type Special Needs Confirm w/ [facility] SURGICAL PATHOLOGY EXAM Routine 12/02/2017 12:00 AM EDT documented in this encounter Results * Surgical Pathology Exam (12/02/2017 12:00 AM EDT) 12/02/2017 12/02/2017 Narrative [facility] - 12/02/2017 12:00 AM EDT CASE: [id number] PATIENT: ISHAN CHILDRESS Clinical History: ?? EGD Pre-Operative Diagnosis: anemia Post-Operative Diagnosis: ? Normal EGD Specimen(s) Submitted: ?? A. duodenal bx CPT Code(s): ?? 82766 X 1 Additional Information: FINAL DIAGNOSIS: Duodenum, biopsy: - Duodenal mucosa with preserved villous architecture, focally increased intraepithelial lymphocytes and reactive epithelial change. - Negative for dysplasia or malignancy. Comment: ??Sections show duodenal mucosa with preserved villous architecture and focally increased intraepithelial lymphocytes. ??Reactive epithelial change is noted. ??These findings are nonspecific and differential diagnosis includes small intestinal bacterial overgrowth (SIBO), peptic injury, medication induced injury (NSAIDs, olmesartan), celiac disease and sensitivity to non-gluten proteins. DS/elida Gross Description: Received in formalin, with the patient's name Ishan Childress and duodenal biopsy , is a 1.5 x 0.4 x 0.2 cm aggregate of pink-hernandez tissue, filtered into a biopsy bag and entirely submitted into cassette [id number]. (Vandana Holland, DANIELLE/mjs) Microscopic Description: Two HE stained slides are examined. ??LEXIE/elida Warren, the attending pathologist, have personally reviewed all prosector/resident work and pathology slides to determine final diagnosis. Final Diagnosis performed by AUDREY ALVAREZ MD Pathologist Electronically signed 12/04/2017 11:56:31 AM The Pathologist signing this report is located at [facility], [address] [place] [address], [place], [place], [facility], , CLIA ID: [id number] Aaron Rocha MD PATHOLOGY/CYTOLOGY ORDERABLES Fi nal Result [facility] documented in this encounter Visit Diagnoses Diagnosis Anemia- Primary Unspecified anemia Anemia, unspecified type documented in this encounter Admitting Diagnoses Diagnosis Anemia Unspecified anemia documented in this encounter Administered Medications Inactive Administered Medications - up to 3 most recent administrations Medication Order MAR Action Action Date Dose Rate Site sodium chloride 0.9 % infusion 50 mL/hr, Intravenous, Continuous, Starting on Fri12/02/17 at 0900, Pre-procedure(GI)Indications:Anemia, unspecified type documented in this encounter Active and Recently Administered Medications Times are shown in EDT. Continuous Medication Order 11/30/2017 12/01/2017 12/02/2017 sodium chloride 0.9 % infusion 50 mL/hr, Intravenous, Continuous, Starting on Fri12/02/17 at 0900, Pre-procedure(GI) 0900 (Due) documented in this encounter Additional Health Concerns Assessment Noted Time PHQ-9 Depression Total Score: 10 017 8:00 AM EDT documented as of this encounter Care Teams Pediatric Physician Relationship Specialty Start Date End Date Marlo Rubio MD PCP - General Family Medicine 10/09/16 documented as of this encounter
--- OUTSIDE RECORDS SUMMARY | 2024-03-14 18:25 | XMS_ITS | Encounter Summary ---
Author Organization [facility] Address [address] [place] [address] Care Team Providers Care Fish Worm Grower Name Role Phone Marlo Rubio MD Primary [...] release of HIV test results or diagnoses. [id number] Health Encounter Details Date Type Department Care Team (Late st Contact Info) Description 01/12/2018 Telephone [facility] [place] [facility] [address] [place] [phone] Myrtle Washington RN Social History Tobacco Use [...] Telephone Encounter - Myrtle Washington RN - 01/12/2018 5:31 PM EDT Message left for return call. * Telephone Encounter - Myrtle Washington RN - 01/12/2018 5:31 PM EDT ----- Message from Aaron Rocha [...] documented as of this encounter Care Teams Fish Worm Grower Relationship Specialty Start Date End Date Marlo Rubio MD PCP - General Family Medicine 10/09/16 documented as of this encounter
--- OUTSIDE RECORDS SUMMARY | 2024-03-14 18:25 | XMS_ITS | Encounter Summary ---
Author Organization [facility] Address [address] [place] [address] Care Team Providers Care Electrical Parts Reconditioner Name Role Phone Marlo Rubio MD Primary [...] release of HIV test results or diagnoses. [id number] Health Reason for Visit * Auth/Cert Specialty Diagnoses / Procedures Referred By Amalia t Referred To Contact Gastroenterology Diagnoses Anemia, diarrhea Procedures COLONOSCOPY W/ OR W/O BIOPSY 77337 (CPT??) - GA COLONOSCOPY FLX DX W/COLLJ SPEC WHEN PFRMD 70782 (CPT??) - GA COLONOSCOPY W/BIOPSY SINGLE/MULTIPLE 56131 (CPT??) - GA COLSC FLX W/RMVL OF TUMOR POLYP LESION SNARE TQ [facility] ENDOSCOPY [address] [place] [address] Phone: tel: Referral ID Status Reason Start Date Expiration Date Visits Re quested Visits Authorized [id number] 1 1 Encounter Details Date Type Department Care Team (Late st Contact Info) Description 01/12/2018 12:14 PM EDT Anesthesia Event [facility] ENDOSCOPY [address] [place] [address] Jesus Honeycutt MD [address] [place] [address] Anesthesia Record Procedure Summary Procedure Name Responsible Anesthesiologist Anesthesia Start Time Anesthesia Stop Time COLONOSCOPY W/ OR W/O BIOPSY Jesus Honeycutt MD 01/12/18 1214 01/12/18 1310 Events Date Time Event Comment 01/12/2018 1136 1214 An Start 1214 An Start Data 1219 An Induction 1226 Time Out 1301 An Emergence 1305 an stop data 1310 An Stop Meds Name Total propofol (DIPRIVAN) 10 mg/ml IV injectio n (BOLUS) 30 mg propofol (DIPRIVAN) 10 mg/ml infusion - 100mL VIAL SIZE 379.89 mg lactated ringers infusion 400 mL * Agents Name N2O Auxiliary O2 O2 N2O Air * Blood No blood administrations on file. Lines, Drains, and Airways Type Details Placement Removal Incision 11/07/16; 1510; Abdomen; david, sterile gauze, tegaderm; 01/12/18; 1414 11/07/16 1510 by Ruben Hemphill RN 01/12/18 1414 by Carolee Tolliver RN Peripheral IV 01/12/18; 1000; 20 G ; Right; Forearm; Chlorhexidine; Standard; Tolerated well 01/12/18 1000 by Elba Rhodes RN 01/12/18 1414 by Carolee Tolliver, IVETTE Anesthesia Airway Device 01/12/18; 1214; Nasal Cannula Salter; I.V.; 01/12/18; 1414 01/12/18 1214 by Karen Bryant CRNA 01/12/18 1414 by Carolee Tolliver, IVETTE documented in this encounter Social History Tobacco [...] as of this encounter Progress Notes * Jesus Honeycutt MD - 01/13/2018 10:10 AM EDT Anesthesia Post Note Patient: Gardenia Childress Procedure(s) Performed: Procedure(s): COLONOSCOPY W/ OR W/O BIOPSY Anesthesia type: MAC Patient location: Endoscopy PACU Post pain: Adequate analgesia Post assessment: no apparent anesthetic complications Last Vitals: Vitals: 01/12/18 1315 01/12/18 1330 01/12/18 1345 01/12/18 1400 BP: 114/70 120/82 113/70 113/70 BP Location: Patient Position: Pulse: 69 68 70 70 Resp: 16 16 18 Temp: TempSrc: SpO2: 99% 98% 96% 95% Weight: Height: Post vital signs: stable Level of consciousness: awake Complications: None documented in this encounter H&P Notes * Jesus Honeycutt MD - 01/12/2018 11:34 AM EDT Images from the original note were not included. [facility] DEPARTMENT OF ANESTHESIOLOGY PRE-PROCEDURAL EVALUATION Gardenia Childress is a 37 y.o. year old female presenting for: Procedure(s): COLONOSCOPY W/ OR W/O BIOPSY Surgeon: Aaron Rocha MD Chief Complaint Review of Systems Anesthesia Evaluation Patient summary reviewed, nursing notes reviewed, JIGGER CROWN POUNCING MACHINE OPERATOR/PAT note reviewed and Previous anesthesia note reviewed. No history of anesthetic complications I have reviewed the History and Physical Exam, any relevant changes are noted in the anesthesia pre-operative evaluation. Cardiovascular: Exercise tolerance: good Cummings Met score: 8 - Moving heavy furniture. Rapidly climbing stairs. Carrying 20 pounds up stairs.Valvular problems/murmurs (ASD closure 07/06/2017) related to. (-) hypertension, past MO, cardiomyopathy, CABG/stent, dysrhythmias (pvc's), angina, CHF. Neuro/Muscoloskeletal/Psych: (-) seizures, TIA, CVA, headaches (migraines on topamax ppx and triptan abortive), back problems. Pulmonary: (-) COPD, asthma, shortness of breath. 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 (-) GERD, renal disease. Endo/Other: (+) anemia. (-) diabetes mellitus, hypothyroidism, hyperthyroidism, no thrombocytopenia, [...] Not on file Other Topics Concern ??? Caffeine Use Yes ??? Occupational Exposure No ??? Exercise Yes ??? Seat Belt Yes Social History Narrative ??? No narrative on file Medications Allergies: Allergies Allergen Reactions ??? Latex, Natural Rubber ??? Morphine Nausea And Vomiting Home Meds: Prior to Admission medications as of 01/12/18 0946 Medication Sig Taking? aspirin 81 MG chewable tablet Chew 81 mg by mouth daily. clopidogrel (PLAVIX) 75 mg tablet Take 75 mg by mouth daily. cyanocobalamin (VITAMIN B-12) 500 MCG tablet Take by mouth. dicyclomine (BENTYL) 20 mg tablet Take 20 mg by mouth 4 times a day with meals and at bedtime. docusate sodium (COLACE) 100 MG capsule Take 1 capsule (100 mg total) by mouth 2 times a day. escitalopram oxalate (LEXAPRO) 10 MG tablet Take 10 mg by mouth daily. esomeprazole magnesium (NEXIUM [...] Signs Wt Readings from Last 3 Encounters: 01/12/18 133 lb (60.3 kg) 12/24/17 133 lb (60.3 kg) 12/02/17 136 lb (61.7 kg) Ht Readings from Last 3 Encounters: 01/12/18 5' 5 (1.651 m) 12/24/17 5' 5 (1.651 m) 12/02/17 5' 5 (1.651 m) Temp Readings from Last 3 Encounters: 01/12/18 98.2 ??F (36.8 ??C) (Oral) 12/24/17 98.1 ??F (36.7 ??C) (Oral) 12/02/17 98.2 ??F (36.8 ??C) (Oral) BP Readings from Last 3 Encounters: 01/12/18 132/76 12/24/17 118/78 12/02/17 130/85 Pulse Readings from Last 3 Encounters: 01/12/18 82 12/24/17 93 12/02/17 60 @LASTSAO2(3)@ Physical Exam Airway: Mallampati: II Mouth Opening: >2 FB TM distance: > = 3 FB Neck [...] Date PREGTESTUR Negative 11/07/2016 Anesthesia Plan ASA 3 Female Anesthesia Type: MAC. Intravenous induction. Anesthetic plan and risks discussed with patient. Plan, alternatives, and risks of anesthesia, including , have been explained to and discussed with the patient/legal guardian. By my assessment, the patient/legal guardian understands and agrees. Scenario presented in detail. Questions answered. Blood products not discussed. Plan discussed with SACK DEPARTMENT SUPERVISOR and attending. documented in this encounter Plan of Treatment Not on file documented as of this encounter Visit Diagnoses * Transfer of Care - Karen Bryant CRNA - 01/12/2018 1:09 PM EDT Anesthesia Transfer of Care Note Patient: Gardenia Childress Procedure(s) Performed: Procedure(s): COLONOSCOPY W/ OR W/O BIOPSY Patient location: Endoscopy PACU Anesthesia type: MAC Airway Device on Arrival to PACU/ICU: Nasal Cannula IV Access: Peripheral Monitors Recommended to be Used During PACU/ICU: Standard Monitors Outstanding Issues to Address: None Level of Consciousness: lethargic and responds to stimulation Post vital signs: Vitals: 01/12/18 13:09 BP: 114/70 Pulse: 73 Resp: 16 Temp: 98.2 ??F (36.8 ??C) SpO2: 99% Complications: None Date 01/11/18699 - 01/12/18 0659(Not Admitted) 01/12/18699 - 01/13/18 0659 Shift 9325-4211 1449-1595 0829-5892 24 Hour Total 1908-3045 0413-1631 6008-6838 24 Hour Total I N T A K E I.V. 400 (6.6) 400 (6.6) Volume (mL) (lactated Ringers infusion) 400 400 Shift Total (mL/kg) 400 (6.6) 400 (6.6) O U T P U T Shift Total (mL/kg) Weight (kg) 60.3 60.3 60.3 60.3 documented in this encounter Administered Medications Inactive Administered Medications - up to 3 most recent administrations Medication Order MAR Action Action Date Dose Rate Site lactated Ringers infusion Continuous - One Step Medications Only, Starting on Fri01/12/18 at 1203, Anesthesia Intra-op New Bag 01/12/2018 12:03 PM EDT propofol (DIPRIVAN) infusion 10 mg/mL Continuous - One Step Medications Only, Starting on Fri01/12/18 at 1219, Anesthesia Intra-op New Bag 01/12/2018 12:19 PM EDT 150 mcg/kg/min 54.3 mL/hr propofol 10 mg/ml (DIPRIVAN) injection PRN - One Step Medication Only, Starting on Fri01/12/18 at 1219, Anesthesia Intra-op Given 01/12/2018 12:19 PM EDT 30 mg documented in this encounter Additional Health Concerns Assessment Noted Time PHQ-9 Depression Total Score: 10 017 8:00 AM EDT documented as of this encounter Care Teams Electrical Parts Reconditioner Relationship Specialty Start Date End Date Marlo Rubio MD PCP - General Family Medicine 10/09/16 documented as of this encounter
--- OUTSIDE RECORDS SUMMARY | 2024-03-14 18:25 | XMS_ITS | Encounter Summary ---
Author Organization [facility] Address [address] [place] [address] Care Team Providers Care Strategic Analyst Name Role Phone Marlo Rubio MD Primary [...] release of HIV test results or diagnoses. [id number] [facility] Encounter Details Date Type Department Care Team (Late st Contact Info) Description 01/16/2017 Telephone [facility] Liver Transplant at [address] [phone] Chasidy Ruiz RN Social History Tobacco Use Types Packs/Day [...] encounter Miscellaneous Notes * Telephone Encounter - Chasidy Bess RN - 01/16/2017 12:39 PM EDT Patient called about small area (less than 1cm) of her wound that is not healed. There is no drainage or redness and area is much improved since her post-op visit. After viewing a picture sent by thepatient, she was instructed on wound care and diet to enhance recovery of this wound. At this time,there are no further guidelines and patient will follow up as needed. documented in this encounter Plan of Treatment Not on file documented as of this encounter Visit Diagnoses Not on filedocumented in this encounter Additional Health Concerns Assessment Noted Time PHQ-9 Depression Total Score: 10 017 8:00 AM EDT documented as of this encounter Care Teams Strategic Analyst Relationship Specialty Start Date End Date Marlo Rubio MD PCP - General Family Medicine 10/09/16 documented as of this encounter
--- OUTSIDE RECORDS SUMMARY | 2024-03-14 18:25 | XMS_ITS | Encounter Summary ---
Author Organization [place] [address] Care Team Providers Care Audio Visual Facilities Engineer Name Role Phone Unavailable Primary Care Provider Unavailabl e Encounter Details Date Type Department Care Team (Late st Contact Info) Description 08/07/1995 8:52 AM EDT - 08/07/1995 11:59 PM EDT Hospital Encounter [facility] EPIC CON UNK EDG Fred Martínez MD Social History Tobacco [...] [facility] [address] [place] [id number] documented as of this encounter Visit Diagnoses Not on filedocumented in this encounter
--- OUTSIDE RECORDS SUMMARY | 2024-03-14 18:25 | XMS_ITS | Encounter Summary ---
Author Organization [facility] Address [address] [place] [id number] Care Team Providers Care Fire Prevention Chief Name Role Phone Marlo Rubio MD Primary [...] release of HIV test results or diagnoses. [id number] Reason for Visit * Reason Comments Follow-up Encounter Details Date Type Department Care Team (Late st Contact Info) Description 04/22/2018 10:00 AM EST Office Visit [facility] Hepatobiliary at [address] [phone] Aaron Rocha MD [address] [place] [phone] Abdominal pain, unspecified abdominal location (Primary Dx) Social History Tobacco Use Types [...] Sign Reading Time Taken Comments Blood Pressure 132/79 04/22/2018 10:20 AM EST Pulse 67 04/22/2018 10:20 AM EST Temperature 36 ??C (96.8 ??F) 04/22/2018 10:20 AM EST Respiratory Rate 16 04/22/2018 10:20 AM EST Oxygen Saturation 99% 04/22/2018 10:20 AM EST Inhaled Oxygen Concentration 99% 04/22/2018 1 0:20 AM EST Weight 61.7 kg (136 lb) 04/22/2018 10:20 AM EST Height 165.1 cm (5' 5 ) 04/22/2018 10:20 AM EST Body Mass Index 22.63 04/22/2018 10:20 AM EST documented in this encounter Patient Instructions * Patient Instructions* Aaron Rocha MD - 04/22/2018 10:00 AM EST Our plan is as follows: 1. Imaging: none. 2. Labs: none. 3. Medications: No new medications today. 4. Follow-up to be determined. documented in this encounter Progress Notes * Aaron Rocha MD - 04/22/2018 10:00 AM EST Chief Complaint Patient presents with ??? Follow-up Referring physician: Dr. Deborah Parker CC: Abdominal pain Baseline Medical History: The patient is a 38 y/o F with history of biliary atresia [...] of 84.4. Interval History: She returns today for follow-up office visit. Daughter was present during the visit (home from [facility]). I performed a colonoscopy on 01/12/2018 for evaluation of iron deficiency anemia. Colonoscopy was normal to the terminal ileum although prep was suboptimal with pools of thick fluid which could not be aspirated. Biopsies for microscopic colitis were negative. She developed severe epigastric pain for which she was seen in the ED at [place] on [facility] [place]. Evaluation was unremarkable including CBD, liver tests. Iron studies are but to normal. She was treated for bacterial vaginosis. She continues to have constant MASON pain but much better than previously. Weight is stable appetite is ok. Past Medical History: She has a past [...] escitalopram oxalate (LEXAPRO) 10 MG tablet, Take 20 mg by mouth daily. , Disp: , Rfl: ??? esomeprazole magnesium (NEXIUM [...] Pain., Disp: 60 tablet, Rfl: 0 Allergies: Latex, natural rubber; Morphine; and Metronidazole Family History: Her family history includes COPD in her mother; Cancer in her sister; Diabetes in her mother and sister; Heart disease in her mother; Stroke in her mother. Past Surgical History: She has a past surgical history that includes Cholecystectomy; Appendectomy; Resection liver (N/A, 11/07/2016); ASD repair; Esophagogastroduodenoscopy (N/A, 12/02/2017); and Colonoscopy (N/A, 01/12/2018). Social History: She reports that she has never smoked. She has never used smokeless tobacco. She reports that she does not drink alcohol or use drugs. Review of Systems: * See scanned Review of Systems sheet. Vital Signs: Blood pressure 132/79, pulse 67, temperature 96.8 ??F (36 ??C), temperature source Temporal, resp. rate 16, height 5' 5 (1.651 m), weight 136 lb (61.7 kg), SpO2 99 %. Physical Exam Constitutional: She [...] & Plan: Gardenia Childress is a pleasant 38 y/o with hx of biliary atresia s/p [...] is trying to adjust to this. She later developed iron deficiency anemia without overt GI bleeding. EGD with duodenal biopsies on12/02/2017 was unrevealing. Colonoscopy on 01/12/2018 was also normal although her prep was suboptimal. She was recently seenin the ER at [place] for MASON pain. Work-up of this was negative. She is now feeling better. Looks well. We will take a conservative approach for now. Our plan is as follows: 1. Imaging: none. 2. Labs: none. 3. Medications: No new medications today. 4. Follow-up to be determined. The patient was seen in the office by Dr. Aaron Rocha. documented in this encounter Plan of Treatment Not on file documented as of this encounter Visit Diagnoses Diagnosis Abdominal pain, unspecified abdominal location- Primary documented in this encounter Additional Health Concerns Assessment Noted Time PHQ-9 Depression Total Score: 10 017 8:00 AM EDT documented as of this encounter Care Teams Fire Prevention Chief Relationship Specialty Start Date End Date Marlo Rubio MD PCP - General Family Medicine 10/09/16 documented as of this encounter
--- OUTSIDE RECORDS SUMMARY | 2024-03-14 18:25 | XMS_ITS | Encounter Summary ---
Author Organization [facility] Address [address] [place] [address] Care Team Providers Care Dishwasher Name Role Phone Marlo Rubio MD Primary [...] release of HIV test results or diagnoses. [id number] Reason for Visit * Reason Comments Follow-up Encounter Details Date Type Department Care Team (Late st Contact Info) Description 03/19/2017 9:00 AM EST Office Visit [facility] Hepatobiliary at [address] [phone] Aaron Rocha MD [address] [place] [phone] Diarrhea, unspecified type (Primary Dx) Social [...] Sign Reading Time Taken Comments Blood Pressure 101/71 03/19/2017 9:00 AM EST Pulse 70 03/19/2017 9:00 AM EST Temperature 36.3 ??C (97.4 ??F) 03/19/2017 9:00 AM ES T Respiratory Rate 18 03/19/2017 9:00 AM EST Oxygen Saturation 100% 03/19/2017 9:00 AM EST Inhaled Oxygen Concentration 100% 03/19/2017 9 :00 AM EST Weight 64 kg (141 lb) 03/19/2017 9:00 AM EST Height 165.1 cm (5' 5 ) 03/19/2017 9:00 AM EST Body Mass Index 23.46 03/19/2017 9:00 AM EST documented in this encounter Patient Instructions * Patient Instructions* Hao Bruce MD - 03/19/2017 9:00 AM EST Our plan is as follows: 1. Please complete the 14 day course of ciprofloxacin and metronidazole which have been prescribed to you and sent to your [facility] pharmacy. Please do not consume alcohol while taking metronidazole. 2. Follow up with us in 1 month. Please call following completion of antibiotics regarding responseto therapy. documented in this encounter Progress Notes * Aaron Rocha MD - 03/19/2017 9:00 AM EST Chief Complaint Patient presents with [...] 9.0) w/ MCV of 84.4. Interval History: Ms Childress was seen today for 1 month follow up. She was last seen by me in early Feb 2017 at which time she was complaining of post-prandial diarrhea. Infectious work up was sent including C diff, O&P and stool cx, all of which returned negative. Since her last visit, she continues to have post- prandial diarrhea within 20 minutes of eating. She has not noted any food associations including gluten or dairy products. Ms Childress reports 4-6 BM/day with none at night. Associated sxincluding cramping pain which is relieved by defecation. The BM continue to be watery with no chunks of stool noted nor blood/pus/mucus. She is trying to re-gain weight and has gained about 4 lbs sinc e the last visit. Past Medical History: She has a past [...] times a day., Disp: , Rfl: ??? ciprofloxacin HCl (CIPRO) 500 MG tablet, Take 1 tablet (500 mg total) by mouth 2 times a day for 14 days., Disp: 28 tablet, Rfl: 0 ??? metroNIDAZOLE (FLAGYL) 250 MG tablet, Take 1 tablet (250 mg total) by mouth 3 times a day for 14 days., Disp: 42 tablet, Rfl: 0 ??? oxyCODONE (ROXICODONE) 5 [...] of Systems sheet. Vital Signs: Blood pressure 101/71, pulse 70, temperature 97.4 ??F (36.3 ??C), temperature source Oral, resp. rate 18, height 5' 5 (1.651 m), weight 141 lb (64 kg), SpO2 100 %. Physical Exam Constitutional: [...] for abdominal pain which has since resolved. However now she reports post-prandial diarrhea for the last 2 months. Infectious etiologies have been negative. Her post-prandial diarrhea is concerning for a malabsorptive or maldigestive process. The latter seems less likely given she has no reason to have pancreatic exocrine insufficiency. Given her altered anatomy, SiBO (small bowel bacterial overgrowth) and bile acid induced diarrhea are two likely possibilities. However, she returns today for diarrhea evaluation. Given her recent hospitalization, need to rule out infectious etiologies such a C diff. Her weight loss (11 lbs in our system since October) and post-prandial diarrhea are concerning for a malabsorptive process. She has no reason to have pancreatic ex ocrine insufficency. More likely etiologies would be bile acid induced diarrhea or small bowel bacterial overgrowth (SiBO). Given her altered anatomy, intestinal stasis and subsequent SiBO are a possibility. We will empirically treat for SiBO with 2 weeks of ciprofloxacin and Flagyl. If the above still does not work, possibilities at that point would be to do a hydrogen breath test to confirm or r/o SiBO, or treat for another 2 weeks per guidelines or consider bile acid induced diarrhea. Our plan is as follows: 1. Please complete the 14 day course of ciprofloxacin and metronidazole which have been prescribed to you and sent to your [facility] pharmacy. Please do not consume alcohol while taking metronidazole. 2. Follow up with us in 1 month. Please call following completion of antibiotics regarding responseto therapy. The patient was seen in the office by Drs. Aaron Rocha (GI attending) and Hao Bruce (GI fellow). Dr. Rocha is responsible for all clinical decisions and final editing of the note. documented in this encounter Plan of Treatment Not on file documented as of this encounter Visit Diagnoses Diagnosis Diarrhea, unspecified type- Primary documented in this encounter Additional Health Concerns Assessment Noted Time PHQ-9 Depression Total Score: 10 017 8:00 AM EDT documented as of this encounter Care Teams Dishwasher Relationship Specialty Start Date End Date Marlo Rubio MD PCP - General Family Medicine 10/09/16 documented as of this encounter
--- OUTSIDE RECORDS SUMMARY | 2024-03-14 18:25 | XMS_ITS | Encounter Summary ---
Author Organization [facility] Address [address] [place] [id number] Care Team Providers Care Manager Emergency Department Name Role Phone Marlo Rubio MD Primary [...] release of HIV test results or diagnoses. [id number] Reason for Visit * Reason Comments Labs Only Encounter Details Date Type Department Care Team (Late st Contact Info) Description 02/21/2017 9:55 AM EDT Specimen [facility] Outreach Lab [address] [facility] [address] [place] [phone] Aaron Rocha MD [address] [place] [phone] Diarrhea, unspecified type Social History Tobacco Use Types [...] Procedure Name Priority Date/Time Associated Diagnosis Comments CLOSTRIDIUM DIFFICILE DNA AMPLIFICATION Routine 02/21/2017 9:55 AM EDT Diarrhea, unspecified type GIARDIA CRYPTOSPORIDIUM ANTIGENS Routine 02/21/2017 9:55 AM EDT SHIGA TOXIN 1 AND 2 ASSAY Routine 02/21/2017 9:55 AM EDT OVA AND PARASITE COMPREHENSIVE W/ GIARDIA/CRYPTO Routine 02/21/2017 9:55 AM EDT Diarrhea, unspecified type STL-FRANC, SHIG, CAMPY, AER, PLE, [id number] Routine 02/21/2017 9:55 AM EDT documented in this encounter Results * Giardia Cryptosporidium Antigens (02/21/2017 9:55 AM EDT) Cryptosporidium Ag Negative Negative 2016 7:59 AM EST [facility] Giardia Ag Negative Negative 02/24/2017 7:59 AM EST [facility] Comment: Detection of Giardia and Cryptosporidium antigen is more sensitive and specific than microscopy. ??Because antigens are shed continuously, repeat testing is rarely warranted. ?? Stool specimen (specimen) 02/21/2017 9:55 AM EDT 02/21/2017 3:08 PM EDT Comment:F us Aaron Rocha MD MICROBIOLOGY - GENERAL ORDERABLE S Final Result Performing Organization Address [facility]/ZIP Co de Phone Number [facility] [address] * Shiga Toxin 1 and 2 Assay (02/21/2017 9:55 AM EDT) Shigatoxin No Shiga toxin detected [facility] Stool specimen (specimen) 02/21/2017 9:55 AM EDT 02/21/2017 3:08 PM EDT Comment:F us Aaron Rocha MD BODY FLUIDS AND STOOLS ORDERABLE S Final Result Performing Organization Address City/State/[facility] Co de Phone Number [facility] [address] * STL-Franc, Shig, Campy, Aer, Ple, [id number] (02/21/2017 9:55 AM EDT) Culture Result No Salmonella, Shigella, Campy, Aero/Plesiom onas or E.coli 0157 isolated [facility] Stool specimen (specimen) 02/21/2017 9:55 AM EDT 02/21/2017 3:08 PM EDT Comment:F Narrative [facility] - 02/25/2017 10:34 AM [facility] [employer] recommends testing for Clostridium difficile toxin, rather than stool examination for enteric pathogens or parasites, on patients that have been hospitalized for more than 3 days. us Aaron Rocha MD MICROBIOLOGY - GENERAL ORDERABLE S Final Result Performing Organization Address [facility]/ZIP Co de Phone Number [facility] [address] * Ova and Parasite Comprehensive w/ Giardia/Crypto (02/21/2017 9:55 AM EDT) Pathologist [facility] O & P Method: Concentration and Trichrome Stain [facility] Results No Amoeba, Ova, Or Parasites Seen. -- O and P examination of additional specimens is recommended only for symptomatic patients, immunosuppressed patients or those with an appropriate travel history. [facility] Stool specimen (specimen) FECES / Unknown 02/21/2017 9:55 AM EDT 02/21/2017 3:08 PM EDT Comment:F us Aaron Rocha MD MICROBIOLOGY - GENERAL ORDERABLE S Final Result [facility] [address] Ang[facility]. [address] * Clost difficile DNA Amplification (02/21/2017 9:55 AM EDT) Clost. Diff DNA Amp. Negative Negative 02/21/2017 10:58 PM EDT [facility] Comment:Positive indicates t oxigenic C. difficile was detected in the sample. Negative indicates that toxigenic C. difficile was not detected above the limit of the detection of the assay. The test methodology is a FDA approved DNA amplification assay. Stool specimen (specimen) FECES / Unknown 02/21/2017 9:55 AM EDT 02/21/2017 3:08 PM EDT Comment:F Aaron Rocha MD BODY FLUIDS AND STOOLS ORDERABLE S Final Result Performing Organization Address City/State/[facility] Co de Phone Number [facility] [address] documented in this encounter Visit Diagnoses Diagnosis Diarrhea, unspecified type documented in this encounter Additional Health Concerns Assessment Noted Time PHQ-9 Depression Total Score: 10 11/20/ 017 8:00 AM EDT documented as of this encounter Care Teams Manager Emergency Department Relationship Specialty Start Date End Date Marlo Rubio MD PCP - General Family Medicine 10/09/16 documented as of this encounter
--- OUTSIDE RECORDS SUMMARY | 2024-03-14 18:25 | XMS_ITS | Encounter Summary ---
Author Organization [facility] Address [address] [place] [address] Care Team Providers Care Event Av Operator Name Role Phone Marlo Rubio MD [...] release of HIV test results or diagnoses. [id number] Health Encounter Details Date Type Department Care Team (Late st Contact Info) Description 05/21/2017 Chart Note [facility] [place] [facility] [address] [place] [phone] Myrtle Washington, IVETTE Patient seen in pancreas clinic today by Dr. Rocha. Follow up appointment Social History Tobacco Use Types Packs/Day Years [...] as of this encounter Progress Notes * Myrtle Washington RN - 05/21/2017 9:17 AM EST Patient seen in pancreas clinic today by Dr. Rocha. Follow up appointment scheduled for 3 months, 08/13/17 at 10:30am. No other orders at this time. Verbalized understanding. documented in this encounter Plan of Treatment Not on file documented as of this encounter Visit Diagnoses Not on filedocumented in this encounter Additional Health Concerns Assessment Noted Time PHQ-9 Depression Total Score: 10 017 8:00 AM EDT documented as of this encounter Care Teams Event Av Operator Relationship Specialty Start Date End Date Marlo Rubio MD PCP - General Family Medicine 10/09/16 documented as of this encounter
--- OUTSIDE RECORDS SUMMARY | 2024-03-14 18:25 | XMS_ITS | Encounter Summary ---
Author Organization [facility] Address [address] [place] [address] Care Team Providers Care Compliance Vice President Name Role Phone Marlo Rubio MD Primary [...] release of HIV test results or diagnoses. [id number] Health Reason for Visit * Reason Comments Follow-up Encounter Details Date Type Department Care Team (Late st Contact Info) Description 02/19/2017 10:30 AM EDT Office Visit [facility] at [address] [phone] Aaron Rocha MD [address] [place] [phone] Diarrhea, unspecified type (Primary Dx) Social [...] Sign Reading Time Taken Comments Blood Pressure 113/74 02/19/2017 10:54 AM EDT Pulse 71 02/19/2017 10:54 AM EDT Temperature 36.6 ??C (97.8 ??F) 02/19/2017 10:54 AM E DT Respiratory Rate 18 02/19/2017 10:54 AM EDT Oxygen Saturation 100% 02/19/2017 10:54 AM EDT Inhaled Oxygen Concentration 100% 02/19/2017 1 0:54 AM EDT Weight 62.1 kg (137 lb) 02/19/2017 10:54 AM EDT Height 165.1 cm (5' 5 ) 02/19/2017 10:54 AM EDT Body Mass Index 22.8 02/19/2017 10:54 AM EDT documented in this encounter Patient Instructions * Patient Instructions* Aaron Rocha MD - 02/19/2017 10:30 AM EDT Our plan is as follows: 1. Labs: CBC. Stool studies- C diff, culture, O&P. 2. Imaging: none 3. Medications: Continue Imodium as needed for now but hold it to collect stool studies. We will consider a trial of therapy for small bowel bacterial overgrowth pending review of stool studies. 4. Follow-up in one month. documented in this encounter Progress Notes * Aaron Rocha MD - 02/19/2017 10:30 AM EDT Chief Complaint Patient presents with [...] w/ MCV of 84.4. Interval History: She was seen in the office today for follow-up. Her was present for the visit. She developed diarrhea which began in November 2016. Currently having 6-7 BM/day without Imodium. She takes 4 pills once/day and does not have any bowel movements. She generally has a bowel movement approximately 20 mins after eating anything, regardless of type of food. She has not noticed any food associations with dairy or gluten products. Denies nocturnal BM. There were few occasions whereshe still had BM despite not eating. BM are watery with no chunks of stool. She has a sense of urgency along with abdominal cramping which resolve after defecation. Denies blood/pus/mucus in the stools. Denies night sweats, fevers, chills. Has lost ~15 lbs since surgery. Her appetite is unchanged. Denies dysphagia, odynophagia, early satiety,N/V, bloating. No recent sick contacts, recent travel, camping, alternative water sources. No new medications besides iron pills. Takes iron 325 daily. Past Medical History: She has a past [...] daily., Disp: 90 tablet, Rfl: 3 ??? omeprazole (PRILOSEC OTC) 20 MG tablet, [...] reports that she has never smoked. She does not have any smokeless tobacco history on file. Shereports that she does not drink alcohol or use drugs. Review of Systems: * See scanned Review of Systems sheet. Vital Signs: Blood pressure 113/74, pulse 71, temperature 97.8 ??F (36.6 ??C), temperature source Oral, resp. rate 18, height 5' 5 (1.651 m), weight 137 lb (62.1 kg), SpO2 100 %. Physical Exam Constitutional: [...] Results: Lab Results Component Value Date WBC 7.5 11/10/2016 HGB 9.0 (L) 11/10/2016 HCT 26.7 (L) 11/10/2016 MCV 84.4 11/10/2016 PLT 211 11/10/2016 CREATININE 0.67 11/10/2016 BUN 6 (L) 11/10/2016 [...] was initiallyreferred for abdominal pain which has now resolved. However, she returns today for diarrhea evaluation. Given her recent hospitalization, need to rule out infectious etiologies such a C diff. Her weight loss (11 lbs in our system since October) and post-prandial diarrhea are concerning for a malabsorptive process. She has no reason to have pancreatic exocrine insufficency. More likely etiologies would be bile acid induced diarrhea or small bowel bacterial overgrowth (SiBO). Given her altered anatomy, intestinal stasis and subsequent SiBO are a possibility. Our plan is as follows: 1. Labs: CBC. Stool studies- C diff, culture, O&P. 2. Imaging: none 3. Medications: Continue Imodium as needed for now but hold it to collect stool studies. We will consider a trial of therapy for small bowel bacterial overgrowth pending review of stool studies. 4. Follow-up in one month. The patient was seen in the office by Drs. Aaron Rocha (GI attending) and Hao Bruce (GI fellow). Dr. Rocha is responsible for all clinical decisions and final editing of the note. documented in this encounter Plan of Treatment Scheduled Orders Name Type Priority Associated Diagnoses Orde r Schedule Stool Culture Panel Microbiology Routine Diarrhea, unspecified type 1 Occurrences starting 02/19/2017 until 02/20/2018 documented as of this encounter Results * Ova and Parasite Comprehensive w/ Giardia/Crypto (02/21/2017 9:55 AM EDT) Pathologist [facility] O & P Method: Concentration and Trichrome Stain [facility] Results No Amoeba, Ova, Or Parasites Seen. -- O and P examination of additional specimens is recommended only for symptomatic patients, immunosuppressed patients or those with an appropriate travel history. [facility] Stool specimen (specimen) FECES / Unknown 02/21/2017 9:55 AM EDT 02/21/2017 3:08 PM EDT Comment:F us Aaron Rocha MD MICROBIOLOGY - GENERAL ORDERABLE S Final Result Performing Organization Address [facility] Co de Phone Number [facility] [address] * Clost difficile DNA Amplification (02/21/2017 9:55 AM EDT) [facility] Clost. Diff DNA Amp. Negative Negative 02/21/2017 10:58 PM EDT [facility] Comment:Positive indicates t oxigenic C. [...] ORDERABLE S Final Result Performing Organization Address [facility] de Phone Number [facility] [address] * Differential (02/19/2017 11:43 AM EDT) [facility] Neutrophils Relative 60.6 40.0 - 80.0 % 02/19/2017 11:53 AM EDT [facility] Lymphocytes Relative 25.6 15.0 - 45.0 % 02/19/2017 11:53 AM EDT [facility] Monocytes Relative 8.0 0.0 - 12.0 % 02/19/2017 11:53 AM EDT [facility] Eosinophils Relative 5.3 0.0 - 8.0 % 02/19/2017 11:53 AM EDT [facility] Basophils Relative 0.5 0.0 - 1.0 % 02/19/2017 11:53 AM EDT [facility] nRBC 0 0 - 0 /100 WBC 02/19/2017 11:53 AM EDT [facility] Neutrophils Absolute 4,484 1,500 - 7,800 /uL 02/19/2017 11:53 AM EDT [facility] Lymphocytes Absolute 1,894 850 - 3,900 /uL 02/19/2017 11:53 AM EDT [facility] Monocytes Absolute 592 200 - 950 /uL 02/19/2017 11:53 AM EDT [facility] Eosinophils Absolute 392 15 - 500 /uL 02/19/2017 11:53 AM EDT [facility] Basophils Absolute 37 0 - 200 /uL 02/19/2017 11:53 AM EDT [facility] Whole blood specimen (specimen) 02/19/2017 11:43 AM EDT 02/19/2017 11:50 AM EDT us Aaron Rocha MD LAB BLOOD ORDERABLES Final Resul t [facility] [address] [place] [address], [facility] * (ABNORMAL) CBC (02/19/2017 11:43 AM EDT) WBC 7.4 3.8 - 10.8 10E3/uL 02/19/2017 11:53 AM EDT [facility] RBC 5.04 3.80 - 5.10 10E6/uL 02/19/2017 11:53 AM EDT [facility] Hemoglobin 14.0 11.7 - 15.5 g/dL 02/19/2017 11:53 AM EDT [facility] Hematocrit 43.3 35.0 - 45.0 % 02/19/2017 11:53 AM EDT [facility] MCV 85.9 80.0 - 100.0 fL 02/19/2017 11:53 AM EDT [facility] MCH 27.8 27.0 - 33.0 pg 02/19/2017 11:53 AM EDT [facility] MCHC 32.3 32.0 - 36.0 g/dL 02/19/2017 11:53 AM EDT [facility] RDW 15.1(H) 11.0 - 15.0 % 02/19/2017 11:53 AM EDT [facility] Platelets 268 140 - 400 10E3/uL 02/19/2017 11:53 AM EDT [facility] MPV 7.9 7.5 - 11.5 fL 02/19/2017 11:53 AM EDT [facility] Whole blood specimen (specimen) 02/19/2017 11:43 AM EDT 02/19/2017 11:50 AM EDT Aaron Rocha MD LAB BLOOD ORDERABLES Final Resul t Performing Organization Address City/State/[facility] Co de Phone Number [facility] [address] documented in this encounter Visit Diagnoses Diagnosis Diarrhea, unspecified type- Primary documented in this encounter Additional Health Concerns Assessment Noted Time PHQ-9 Depression Total Score: 10 017 8:00 AM EDT documented as of this encounter Care Teams Compliance Vice President Relationship Specialty Start Date End Date Marlo Rubio MD PCP - General Family Medicine 10/09/16 documented as of this encounter
--- OUTSIDE RECORDS SUMMARY | 2024-03-14 18:25 | XMS_ITS | Encounter Summary ---
Author Organization [facility] Address [address] [place] [address] Care Team Providers Care Fruit Dryer Name Role Phone Marlo Rubio MD Primary [...] release of HIV test results or diagnoses. [id number] Reason for Visit * Reason Comments Follow-up Encounter Details Date Type Department Care Team (Late st Contact Info) Description 09/16/2018 10:30 AM EDT Office Visit [facility] at [address] [phone] Aaron Rocha MD [address] [place] [phone] Abdominal pain, unspecified abdominal location (Primary [...] Mass Index 25.29 09/16/2018 10:54 AM EDT documented in this encounter Patient Instructions * Patient Instructions* Aaron Rocha MD - 09/16/2018 10:30 AM EDT Our plan is as follows: 1. Imaging: none. 2. Labs: none. 3. Medications: No new medications today. 4. Follow-up: as needed. documented in this encounter Progress Notes * Aaron Rocha MD - 09/16/2018 10:30 AM EDT No chief complaint on file. [...] She returns today for follow-up office visit. Last seen on 04/22/2018. I performed a colonoscopy on 01/12/2018 for evaluation of iron deficiency anemia. Colonoscopy was normal to the terminal ileum although prep was suboptimal with pools of thick fluid which could not be aspirated. Biopsies for microscopic colitis were negative. She developed severe epigastric pain for which she was seen in the ED at [place] [facility]. Evaluation was unremarkable including CBD, liver tests. Iron studies are but to normal. She was treated for bacterial vaginosis. S She is currently feeling well. No abdominal pain. No recent ER visits. Bowel habits are normal. Good appetite. She feels that she has gained weight. She remains on iron from her PCP. Past Medical History: She has a past [...] times a day., Disp: , Rfl: Allergies: Latex, natural rubber; Morphine; and Metronidazole [...] Evaluation for infectious etiologies was negative. She rsponded to a 2 week empiric trial of Cipro/Flagyl for SIBO. Bowel habits are currently back to normal. She lost her suddenly secondary to a heart attack at home on 08/04/2017. She later developed iron deficiency anemia without overt GI bleeding. EGD with duodenal biopsies on12/02/2017 was unrevealing. Colonoscopy on 01/12/2018 was also normal although her prep was suboptimal. She was seen in the ER at [place] for MASON pain. Work-up of this was negative. She is now feeling better. Looks well. We will take a conservative approach for now. Our plan is as follows: 1. Imaging: none. 2. Labs: none. 3. Medications: No new medications today. 4. Follow-up: as needed. The patient was seen in the office by Dr. Aaron Rocha. documented in this encounter Plan of Treatment Not on file documented as of this encounter Visit Diagnoses Diagnosis Abdominal pain, unspecified abdominal location- Primary documented in this encounter Additional Health Concerns Assessment Noted Time PHQ-9 Depression Total Score: 10 017 8:00 AM EDT documented as of this encounter Care Teams Fruit Dryer Relationship Specialty Start Date End Date Marlo Rubio MD PCP - General Family Medicine 10/09/16 documented as of this encounter
--- OUTSIDE RECORDS SUMMARY | 2024-03-14 18:25 | XMS_ITS | Encounter Summary ---
Author Organization [facility] Address [address] [place] [address] Care Team Providers Care Supervising Film Or Videotape Editor Name Role Phone Marlo Rubio MD Primary [...] release of HIV test results or diagnoses. [id number] Encounter Details Date Type Department Care Team (Late st Contact Info) Description 08/19/2017 Telephone [facility] at [facility] [address] [place] [phone] Di Pearl Social History Tobacco Use Types Packs/Day Years [...] encounter Miscellaneous Notes * Telephone Encounter - Di Pearl - 08/19/2017 2:11 PM EDT Called to Welcome and remind pt of upcoming appt. on 08/20/17 Asked pt to be here @ 11:00 am confirmed address Pt verbalized understanding and Thanked for reminder call documented in this encounter Plan of Treatment Not on file documented as of this encounter Visit Diagnoses Not on filedocumented in this encounter Additional Health Concerns Assessment Noted Time PHQ-9 Depression Total Score: 10 017 8:00 AM EDT documented as of this encounter Care Teams Supervising Film Or Videotape Editor Relationship Specialty Start Date End Date Marlo Rubio MD PCP - General Family Medicine 10/09/16 documented as of this encounter
--- OUTSIDE RECORDS SUMMARY | 2024-03-14 18:25 | XMS_ITS | Encounter Summary ---
Author Organization [facility] Address [address] [place] [address] Care Team Providers Care Manager Multicultural Name Role Phone Marlo Ruboi MD Primary Care Provider Fatmata hutchison Source [...] release of HIV test results or diagnoses. [id number] Health Reason for Visit * Auth/Cert Specialty Diagnoses / Procedures Referred By Contact Referred To Contact Gastroenterology Diagnoses Anemia Procedures EGD 01776 (CPT??) - SD ESOPHAGOGASTRODUODENOSCOPY TRANSORAL DIAGNOSTIC 30239 (CPT??) - SD EGD TRANSORAL BIOPSY SINGLE/MULTIPLE [facility] ENDOSCOPY [address] [place] [address] Phone: tel: Referral ID Status Reason Start Date Expiration Date Visits Re quested Visits Authorized [id number] 1 1 Encounter Details Date Type Department Care Team (Late st Contact Info) Description 12/02/2017 11:00 AM EDT - 12/02/2017 11:30 AM EDT Surgery [facility] ENDOSCOPY [address] [place] [address] Aaron Rocha MD [address] [place] [address] EGD Surgery Details Date/Time Status Location OR Service Patient Class Case Class Case Type Trauma Case? 12/02/2017 11:00 AM Posted ENDOSCOPY E7 Gastroenterology Hosp OP Surg/Ambul atory EGD/Sm Bowel Panel 1 Procedure LRB Anes Op Region Wound Class Comments EGD N/A MAC (Monitor Anesthesia Care) N/A Surgeon [...] Sign Reading Time Taken Comments Blood Pressure 128/74 12/02/2017 8:17 AM EDT Pulse 66 12/02/2017 8:17 AM EDT Temperature 36.8 ??C (98.2 ??F) 12/02/2017 8:17 AM ED T Respiratory Rate 16 12/02/2017 8:17 AM EDT Oxygen Saturation 100% 12/02/2017 8:17 AM EDT Inhaled Oxygen Concentration 100% 12/02/2017 8 :17 AM EDT Weight 61.7 kg (136 lb) 12/02/2017 8:17 AM EDT Height 165.1 cm (5' 5 ) 12/02/2017 8:17 AM EDT Body Mass Index 22.63 12/02/2017 8:17 AM EDT documented in this encounter Discharge Instructions * Discharge Instructions* Ulysses Dumont RN - 12/02/2017 12:58 PM EDT [facility] ENDOSCOPY INSTRUCTION/RELEASE FORMS Date: 12/02/2017 Procedure: Procedure(s): EGD IF YOU DEVELOP EXCESSIVE BLEEDING, UNCONTROLLED PAIN OR SHORTNESS OF BREATH, GO TO THE EMERGENCY DEPARTMENT FOR AN EXAMINATION. IF YOU DEVELOP CHILLS, FEVER (greater than 100.5) OR HAVE CONCERNS ABOUT YOUR RECOVERY, CALL [phone] and ask for the G.I. Fellow on-call. [...] for exam: chest tightness. Referred by her farm crew member. Patient Active Problem List Diagnosis ??? Congenital [...] ETOH dehydrated; Surgeon: Deborah Parker MD; Location: [facility]; Service: Transplant; Laterality: N/A; Family History Problem [...] Rocha MD - 12/02/2017 11:56 AM EDT [id number] Procedure Date: 12/02/2017 11:56 AM Patient Name: Ishan Childress Date of : 1980 Admit Type: Outpatient Age: 37 Gender: Female Note Status: Finalized Attending MD: Aaron Rocha MD Procedure: Upper GI endoscopy Indications: The patient is a 37 y.o. female who experienced chest discomfort and was found to be anemic. EGD was planned per request of her farm crew member. Providers: Aaron Rocha MD Referring MD: Aaron [...] be scheduled. Procedure Code(s): --- Professional --- 26718, Esophagogastroduodenoscopy, flexible, transoral; with biopsy, single or multiple Diagnosis Code(s): --- Professional --- D50.9, Iron deficiency anemia, unspecified R07.9, Chest pain, unspecified CPT copyright 2016 [employer]. All rights reserved. The codes documented in this report are preliminary and upon e learning developer review may be revised to meet current compliance requirements. Aaron Rocha MD 12/02/2017 1:19:41 PM This report has been signed electronically.Aaron Rocha MD Total Procedure Duration Time 0 hours 9 minutes 28 seconds Scope In: 12:06:26 PM Scope Out: 12:15:[address] [place] [address] documented in this encounter Plan of Treatment [...] [facility] - 12/02/2017 12:00 AM EDT CASE: [id number] PATIENT: ISHAN CHILDRESS Clinical History: ?? EGD Pre-Operative Diagnosis: anemia Post-Operative Diagnosis: ? Normal EGD Specimen(s) Submitted: ?? A. duodenal bx CPT Code(s): ?? 68861 X 1 Additional Information: FINAL DIAGNOSIS: Duodenum, [...] submitted into cassette [id number]. (Vandana Holland, PT/mjs) Microscopic Description: Two HE stained slides are examined. ??DS/elida Warren, the attending pathologist, have personally reviewed all prosector/resident work and pathology slides to determine final diagnosis. Final Diagnosis performed by AUDREY ALVAREZ MD Pathologist Electronically signed 12/04/2017 11:56:31 AM The Pathologist signing this report is located at [facility], [address] [place] [address], [place], [place], [facility], , CLIA ID: [id number] Aaron Rocha MD PATHOLOGY/CYTOLOGY ORDERABLES Fi nal Result Performing Organization Address [facility]/State/ZIP Co de Phone Number [facility] documented in this encounter Visit Diagnoses Diagnosis Anemia- Primary Unspecified anemia Anemia, unspecified type Anemia, unspecified type documented in this encounter [...] as of this encounter Care Teams Manager Multicultural Relationship Specialty Start Date End Date Marlo Rubio MD PCP - General Family Medicine 10/09/16 documented as of this encounter
--- OUTSIDE RECORDS SUMMARY | 2024-03-14 18:25 | XMS_ITS | Encounter Summary ---
Author Organization [facility] Address [address] [place] [address] Care Team Providers Care Rollway Worker Name Role Phone Marlo Rubio MD Primary [...] release of HIV test results or diagnoses. [id number] Reason for Referral * Surgical (Routine) - Closed Specialty Diagnoses / Procedures Referred By Amalia t Referred To Contact Gastroenterology Diagnoses Anemia, unspecified type Diarrhea, unspecified type Procedures Case request GI: COLONOSCOPY W/ OR W/O BIOPSY DC COLONOSCOPY FLX DX W/COLLJ SPEC WHEN PFRMD DC COLONOSCOPY W/BIOPSY SINGLE/MULTIPLE DC COLSC FLX W/RMVL OF TUMOR POLYP LESION SNARE TQ Aaron Rocha MD [address] [place] [address] Phone: tel: fax: Referral ID Status Reason Start Date Expiration Date Visits Re quested Visits Authorized [id number] Closed 12/25/2017 06/23/2018 1 1 Encounter Details Date Type Department Care Team (Late st Contact Info) Description 12/25/2017 Orders Only [facility] Gastroenterology at [facility] [address] [place] [phone] Aaron Rocha MD [address] [place] [address] Anemia, unspecified type (Primary Dx); Diarrhea, unspecified type Social History Tobacco Use [...] Visit Diagnoses Diagnosis Anemia, unspecified type- Primary Diarrhea, unspecified type documented in this encounter Additional Health Concerns Assessment Noted Time PHQ-9 Depression Total Score: 10 017 8:00 AM EDT documented as of this encounter Care Teams Rollway Worker Relationship Specialty Start Date End Date Marlo Rubio MD PCP - General Family Medicine 10/09/16 documented as of this encounter
--- OUTSIDE RECORDS SUMMARY | 2024-03-14 18:25 | XMS_ITS | Encounter Summary ---
Author Organization [facility] Address [address] [place] [address] Care Team Providers Care Lay Up Operator Name Role Phone Marlo Rubio MD [...] release of HIV test results or diagnoses. [id number] Health Encounter Details Date Type Department Care Team (Late st Contact Info) Description 01/24/2017 Telephone [facility] [address] [place], [place] [phone] Aaron Rocha MD [address] [place] [address] Social History Tobacco Use Types [...] encounter Miscellaneous Notes * Telephone Encounter - Haider Andrade RN - 02/11/2017 12:19 PM EDT Attempted to contact pt. lVM telling pt appointment is scheduled for 02/19/17 @ 10:[address] Rochaat the . Told pt to call with any questions. * Telephone Encounter - Aaron Rocha MD - 02/11/2017 11:37 AM EDT Please schedule her for a f/u office visit with me. Thanks. MTS * Telephone Encounter - Haider Andrade RN - 02/11/2017 10:34 AM EDT Spoke with pt. Pt stated every time she eats anything it just goes right through her. Started late november after your office visit with her. Told pt I would speak with Dr. Rocha to get a POC. * Telephone Encounter - Jyoti Rocha - 02/07/2017 4:47 PM EDT Patient called in following up on messages below. Please follow up and advise. Patient can be reached at [phone]. * Telephone Encounter - Joann Avitia - 01/29/2017 12:23 PM EDT Patient call in to follow up on message below. Please follow up advise * Telephone Encounter - Jyoti Rocha - 01/24/2017 9:30 AM EDT Patient called in wanting to schedule a follow up appointment with Dr. Rocha. Patient can be reached at [phone]. documented in this encounter Plan of Treatment Not on file documented as of this encounter Visit Diagnoses Not on filedocumented in this encounter Additional Health Concerns Assessment Noted Time PHQ-9 Depression Total Score: 10 017 8:00 AM EDT documented as of this encounter Care Teams Lay Up Operator Relationship Specialty Start Date End Date Marlo Rubio MD PCP - General Family Medicine 10/09/16 documented as of this encounter
--- OUTSIDE RECORDS SUMMARY | 2024-03-14 18:25 | XMS_ITS | Encounter Summary ---
Author Organization [facility] Address [address] [place] [address] Care Team Providers Care Jewelry Estimator Name Role Phone Marlo Rubio MD Primary [...] release of HIV test results or diagnoses. [id number] Health Encounter Details Date Type Department Care Team (Late st Contact Info) Description 12/18/2017 Telephone [facility] Gastroenterology at [place] [facility] [address] [place] [phone] Myrtle Washington RN Social History Tobacco Use [...] Telephone Encounter - Myrtle Washington RN - 12/18/2017 3:31 PM EDT Patient called and states that you mentioned after her procedure that she should be scheduled for colonoscopy. Staff message sent to Dr. Rocha for determination. documented in this encounter Plan of Treatment Not on file documented as of this encounter Visit Diagnoses Not on filedocumented in this encounter Additional Health Concerns Assessment Noted Time PHQ-9 Depression Total Score: 10 017 8:00 AM EDT documented as of this encounter Care Teams Jewelry Estimator Relationship Specialty Start Date End Date Marlo Rubio MD PCP - General Family Medicine 10/09/16 documented as of this encounter
--- OUTSIDE RECORDS SUMMARY | 2024-03-14 18:25 | XMS_ITS | Encounter Summary ---
Author Organization [facility] Address [address] [place] [address] Care Team Providers Care Human Resources Services Specialist Name Role Phone Marlo Rubio MD Primary [...] release of HIV test results or diagnoses. [id number] Encounter Details Date Type Department Care Team (Late st Contact Info) Description 11/24/2017 Telephone [facility] [place] [facility] [address] [place] [phone] Myrtle Washington, IVETTE Social History Tobacco Use [...] Telephone Encounter - Myrtle Washington RN - 11/24/2017 1:[address] Rocha no need for patient to hold Plavix for EGD. Called and spoke w/ patient. Instructed patient to be NPO after midnight with the exception of blood pressure medication. Instructed to arrive at [facility] at 9:00 am with escort. Directions given, verbalized understanding. * Telephone Encounter - Myrtle Washington RN - 11/24/2017 11:26 AM EDT Spoke w/ Dr. Rocha who states that he will possibly do EGD. Patient would like to schedule for 12/02/17 however she does take Plavix. Staff message sent to Dr. Rocha regarding how many days to hold. * Telephone Encounter - Myrtle Washington RN - 11/24/2017 10:24 AM EDT This patient called to schedule an appointment upon the recommendation of her shingle cutter. Patientstates that shingle cutter thinks she has a bleeding ulcer or that she is bleeding somewhere. Dr. Rocha's first available is 01/21/18 and I scheduled her then as well as put her on the cancellation list. Staff message sent to Dr. Rocha asking if he would like for Dr. Quezada to see her. documented in this encounter Plan of Treatment Not on file documented as of this encounter Visit Diagnoses Not on filedocumented in this encounter Additional Health Concerns Assessment Noted Time PHQ-9 Depression Total Score: 10 017 8:00 AM EDT documented as of this encounter Care Teams Human Resources Services Specialist Relationship Specialty Start Date End Date Marlo Rubio MD PCP - General Family Medicine 10/09/16 documented as of this encounter
[2024-03-14 18:26] LABS: Basophils # 0.2 K/mm3 (0-0.2); Basophils % 0.8 % (0.1-2.0); Eosinophils # 0.6 K/mm3 (0.0-0.4); Eosinophils % 2.7 % (0.1-12.0); Hematocrit 45.8 % (37.0-47.0); Hemoglobin 15.5 g/dL (12.2-16.2); Lymphocytes % 18.5 % (10-50); Mean Corpuscular HGB Conc 33.8 g/dL (31.8-35.4); Mean Corpuscular Hemoglobin 28.8 pg (27.0-31.2); Mean Corpuscular Volume 85.3 fl (81-99); Monocytes # 1.2 K/mm3 (0.1-1.0); Monocytes % 5.6 % (1.7-9.3); Neutrophils # 15.5 K/mm3 (1.8-7.8); Neutrophils % 72.4 % (37.0-80.0); Platelet Count 450 K/mm3 (142-424); Red Blood Count 5.37 M/mm3 (4.20-5.40); Red Cell Distribution Width 13.5 % (11.5-17.5); White Blood Count 21.4 K/mm3 (4.8-10.8)
--- OUTSIDE RECORDS SUMMARY | 2024-03-14 18:26 | XMS_ITS | Encounter Summary ---
Author Organization [facility] Address [address] [place] [address] Care Team Providers Care Research Program Internship Name Role Phone Camila Jasso MD Primary Care Provider [phone] Source Comments This information has been disclosed [...] release of HIV test results or diagnoses. [id number] Health Encounter Details Date Type Department Care Team (Late st Contact Info) Description 09/08/2011 - 09/08/2011 11:59 PM EDT Emergency [facility] Emergency Department [address] [place] [phone] Jacob Ibarra MD Discharge Disposition: Home or Self Care WITHOUT [...] on filedocumented in this encounter Care Teams Research Program Internship Relationship Specialty Start Date End Date Camila Jasso MD [address] [place] [address] (work) PCP - General 12/03/06 10/08/16 documented as of this encounter
--- OUTSIDE RECORDS SUMMARY | 2024-03-14 18:26 | XMS_ITS | Encounter Summary ---
Author Organization [facility] Address [address] [place] [address] Care Team Providers Care Blending Machine Operator Name Role Phone Camila Jasso MD Primary Care Provider Marlo Rubio MD Primary Care Provider Unavaila ble Source Comments This information has been disclosed [...] release of HIV test results or diagnoses. [id number] Health Encounter Details Date Type Department Care Team (Late st Contact Info) Description 09/26/2016 Telephone [facility]IENT SERVICES [address] [place] [address] Aaron Rocha MD [address] [place] [phone] Social History Tobacco Use Types Packs/Day Years Used Date Smoking Tobacco: Never Alcohol Use Standard Drinks/Week Comments Yes 0 (1 standard drink = 0.6 oz pur e alcohol) occ Comments No Sex and Gender Information Value Date Recorded Sex Assigned at Not on file Legal Sex Female 7:46 PM EST Gender Identity Not on file Sexual Orientation Not on file documented as of this encounter Miscellaneous Notes * Telephone Encounter - Joanne Lubin - 09/26/2016 2:12 PM EDT Spoke with pt who states she was seen in [facility] ER today and treated for upper quadrant pain and tenderness. Was d/c'd and was advised to f/u with . Pt states that she hasn't seen Dr. Rocha in a while but her symptoms today were pretty much the same as the last time seen by Dr. Rocha . Requesting an appointment. * Telephone Encounter - Ana David - 09/26/2016 11:46 AM EDT Patient states that Dr. Rocha put in a drain tube back in 2011 and the patient would now like to schedule an appt for f/u. The patient can be contacted at [phone]. documented in this encounter Plan of Treatment Not on file documented as of this encounter Visit Diagnoses Not on filedocumented in this encounter Care Teams Blending Machine Operator Relationship Specialty Start Date End Date Camila Jasso MD [address] [place] [address] PCP - General 12/03/06 10/08/16 Marlo Rubio MD [address] [place] [address] PCP - General Family Medicine 10/09/16 documented as of this encounter
--- OUTSIDE RECORDS SUMMARY | 2024-03-14 18:26 | XMS_ITS | Encounter Summary ---
Author Organization [facility] Address [address] [place] [address] Care Team Providers Care Bed Laborer Name Role Phone Marlo Rubio MD Primary [...] release of HIV test results or diagnoses. [id number] Reason for Visit * Auth/Cert Specialty Diagnoses / Procedures Referred By Amalia tuttle Referred To Contact Radiology [facility] [address] [place] [address] Phone: tel: Referral ID Status Reason Start Date Expiration Date Visits Re quested Visits Authorized [id number] 1 1 Encounter Details Date Type Department Care Team (Late st Contact Info) Description 10/14/2016 8:11 AM EDT - 10/14/2016 11:59 PM EDT Hospital Encounter [facility] [address] [place] [phone] Kushal Telles MD [address] [facility] [address] [facility] [place] [address] Discharge Disposition: Home or Self Care WITHOUT [...] this encounter Medications at Time of Discharge dicyclomine (BENTYL) 20 mg tablet Take 20 mg by mouth 4 times a day with meals and at bedtime. omeprazole (PRILOSEC OTC) 20 MG tablet Take 1 tablet (20 mg total) by mouth daily. 30 tablet 0 09/26/2016 SUMAtriptan (IMITREX) 25 MG tablet Take 25 mg by mouth once as needed for Migraine. topiramate (TOPAMAX) 25 MG sprinkle capsule Take 25 mg by mouth 2 times a day. documented as of this encounter Plan of Treatment Not on file documented as of this encounter Procedures Procedure Name Priority Date/Time Associated Diagnosis Comments CT ANGIOGRAPHY LIVER BIPHASIC Routine 10/14/2016 9:32 AM EDT Biliary stricture documented in this encounter Visit Diagnoses Not on filedocumented in this encounter Administered Medications Inactive Administered Medications - up to 3 most recent administrations Medication Order MAR Action Action Date Dose Rate Site OMNIPAQUE (iohexol) 350 mg iodine/mL 150 mL 150 mL, Intravenous, IMG once as needed, contrast, Starting on 10/14/16 at 0956, For 1 dose Given 10/14/2016 9:33 AM EDT 116 mLs documented in this encounter Care Teams Bed Laborer Relationship Specialty Start Date End Date Marlo Rubio MD PCP - General Family Medicine 10/09/16 documented as of this encounter
--- OUTSIDE RECORDS SUMMARY | 2024-03-14 18:26 | XMS_ITS | Encounter Summary ---
Author Organization [facility] Address [address] [place] [address] Care Team Providers Care L Tacker Name Role Phone Camila Jasso MD Primary Care Provider [phone] Source Comments This information has been disclosed [...] release of HIV test results or diagnoses. [id number] Health Encounter Details Date Type Department Care Team (Latest Contact Info) Description 05/08/2011 10:06 AM EST - 05/10/2011 4:11 PM [facility] Encounter [facility] [address] [place] [phone] Callum Gallagher MD [address] [place] [phone] Discharge Disposition: Home or Self Care WITHOUT Home Care Services Social History Tobacco Use Types Packs/Day Years Used Date Smoking Tobacco: Never Assessed Comments Unknown Sex and Gender Information Value Date Recorded Sex Assigned at Not on file Legal Sex Female 7:46 PM EST Gender Identity Not on file Sexual Orientation Not on file documented as of this encounter Discharge Summaries * Eric Mcadams MD - 05/10/2011 12:22 PM EST FOR COMPLETE DISCHARGE INSTRUCTIONS INCLUDING SIGNATURES AND NON-PHYSICIAN DOCUMENTATION, PLEASE CONSULT ACCESS ANYWHERE. [address] [address] _ DISCHARGE MEDICATION INSTRUCTIONS PATIENT NAME: ISHAN CHILDRESS DATE OF : 1980 TAKE THESE MEDICATIONS: [facility] OMEPRAZOLE 20 MG TBEC (OMEPRAZOLE) Take one tablet daily THESE MEDICATIONS WERE STOPPED: Your medication list was updated to reflect your current regimen. You are to start taking omeprazole daily. PATIENT INSTRUCTIONS: You were hospitalized for abdominal pain and found to have pancreatitis. Your abdominal pain improved and you are to follow up in outpatient primary care clinic. FOLLOW-UP: Doctor/Test: PCP - Dr. Oswaldo Jasso What: Pt elected to call PCP to schedule a follow up appointment Patients confirmed best contact number: DISCHARGE INSTRUCTIONS Smoking cessation: see below Congestive Heart Failure and other appropriate patients - take & record your weight daily CHF: No Is this an AMI patient: No Activity: No restrictions Diet: Regular Short Stay: Yes Admission Date: 05/08/2011 Discharge Date: 05/10/2011 Final Diagnosis and/or Procedures Performed: Diagnosis 1) Acute Pancreatitis Procedures: 1) CT Abd/Pelvis: Mild stable intrahepatic biliary ductal dilation with pneumobilia, no other acute findings. 2) EGD: Mild patchy erosions and erythema of stomach mucosa. No ulcers noted. Final Progress Note/Discharge Instructions: 1) Pancreatitis: Patient presented with abdominal pain and elevated lipase c/w acute pancreatitis. Patient was mantained NPO with IV fluid hydration, her abdominal pain improved and her diet was advanced. Considering her history of peptic ulcer disease patient underwent EGD with no acute findings. Patient was tolerating regular diet with no abdominal pain prior to discharge. She was discharged to follow up with her primary care physician. Pt elected to call and schedule follow up herself. PRIMARY PHYSICIAN: Oswaldo Jasso MD [phone] - not contacted Discharge Note All Belongings with Patient Nurse Signature: Date: Time: I have received and understand my discharge instructions. Patient Signature: Date: Time: Quit Smoking, this is the most important action you can take to improve your current and future health. If you smoke, you should quit. Smoking hurts you and the people around you. Most people hurt by smoking wish they had quit. Don't wait -- contact the community resources below for help in quitting. There are five community resources that you can contact for more information on smoking cessation or support groups: 1. [facility] 'Win by Quitting' Program 875-721-IKVX 2. Pulmonary Hypertension Association 218-470-1331 or www.phassociation.org 3. [place] [employer] 655-622-6526 4. [place] [employer] 722-872-6942 5. [place] [employer] [phone] _ PATIENT NAME: ISHAN CHILDRESS : 1980 [facility] _ Signed by Eric Mcadams MD on 05/10/2011 at 12:24 PM HOSPITAL _ Signed by Eric Mcadams MD on 05/10/2011 at 12:24 PM documented in this encounter ED Notes * Marcus Plasencia MD - 05/08/2011 11:01 AM EST [facility] PATIENT NAME: ISHAN CHILDRESS MR #: [id number] DATE OF : 1980 ED PHYSICIAN: Marcus Plasencia M.D. ROOM #: APOD PRIMARY: Camila Jasso M.D. NURSING UNIT: [facility] REFERRING: Selected Referral Pt FC: S DICTATED BY: Marcus Plasencia M.D. ADMIT DATE: 05/08/2011 VISIT DATE: 05/08/2011 DISCHARGE DATE: EMERGENCY DEPARTMENT NOTE *-*-* TIME SEEN: 07:29. Nursing notes reviewed. CHIEF COMPLAINT: Abdominal pain. HISTORY OF PRESENT ILLNESS: Ms. 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 It is nonradiating. It is associated with nausea but no vomiting, no diarrhea, no fever. She reports that nothing has relieved her pain. It has been intermittent since then. 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 She has been told in the past to present to the emergency department for similar complaints. She is without other complaints at this time. PAST MEDICAL AND SURGICAL HISTORY: 1. History of gastric ulcer disease. 2. She is status post Kasai procedure for biliary atresia. 3. She has had biliary catheterization in June 2009 with biliary stenting for a stricture at that time. ALLERGIES: No known drug allergies. She does not take aspirin or Tylenol because of her liver disease. MEDICATIONS: Please see nursing notes. REVIEW OF SYSTEMS: Negative for fevers, chills. Positive for nausea, positive for abdominal pain. Negative for diarrhea. Negative for cough. Further review of systems negative. FAMILY HISTORY: Noncontributory. SOCIAL HISTORY: Negative for tobacco, alcohol, IV drugs. PHYSICAL EXAMINATION: VITAL SIGNS: BP 132/80, pulse 89, respiratory rate 16, temperature 97.1, O2 sat 100% on room air. GENERAL: She is no acute distress, alert and oriented. HEENT: Normocephalic, atraumatic. Nonicteric sclerae. Oropharynx normal. Tongue midline. Airway widely patent. LUNGS: Respirations are unlabored. MUSCULOSKELETAL: Moves all extremities equally. ABDOMEN: Soft, generally nontender. She has some tenderness to palpation in the mid epigastrium. GENITOURINARY: Deferred. SKIN: Warm, dry and intact. NEUROLOGIC: Cranial nerves II through XII intact. PSYCHIATRIC: She is alert and oriented x 4. Affect is appropriate. LABORATORY RESULTS AND RADIOLOGY: Patient had a white count of 10.5 with an H&H of 13.3 and 39.4 with normal platelet count. She had a renal panel which was unremarkable. She had an amylase at 1105 and a lipase of 7488. She had a urinalysis which was essentially within normal limits with the exception of rare bacteria and trace lysed blood. Beta HCG negative. The patient had a chest x-ray which demonstrated no free air under the diaphragm and normal lung king. She had a CT abdomen and pelvis with IV contrast only after discussion with radiology. There is mild stable intrahepatic biliary ductal dilatation of left hepatic lobe, associated dependent pneumobilia without any evidence of acute abnormality of her pancreas. EMERGENCY DEPARTMENT COURSE: The patient presented to the emergency department with chief complaint and history of present illness as above. Was evaluated. Bedside IV access was obtained. Laboratory tests were sent. White count was noted to be within normal limits. CT was done. CT demonstrated a pneumobilia without any evidence of intrahepatic abscess, normal pancreas, however, her lipase and amylase are both elevated. I think it is a diagnosis of pancreatitis. The cause of pancreatitis is unclear. I spoke with the GI fellow at 10:00 hours. The patient will be admitted to the GI service under Dr. Gallagher at this time. DIAGNOSIS: 1. Pancreatitis. 2. Pneumobilia. 3. Biliary dilatation. CONDITION: She is currently stable. She has been given Dilaudid for pain control as well as Zofran for nausea. She is comfortable at this time. She received a liter of normal saline. She has normal saline running now at 75 mL an hour. She will be made nothing by mouth. *-*-* JOB/maisha Marcus Plasencia M.D. EMERGENCY DEPARTMENT NOTE PAGE 1 of 1 documented in this encounter Plan of Treatment Not on file documented as of this encounter Procedures Procedure Name Priority Date/Time Associated Diagnosis Comments SURGICAL PATHOLOGY EXAM Routine 05/09/2011 12:00 AM EST documented in this encounter Results * Surgical Pathology Exam (05/09/2011 12:00 AM EST) 05/09/2011 Narrative [facility] - 05/09/2011 12:00 AM EST CASE: [id number] PATIENT: Ishan CHILDRESS Clinical History: ?? Migraines, Biliary Atresia Pre-Operative Diagnosis: None Given Post-Operative Diagnosis: ? S/P EGD with Bx Hiatal Hernia Specimen(s) Submitted: ?? A. Antrum Bx R/O H. Pylori CPT Code(s): ?? 16599 X 1; 58184 X 1 FINAL DIAGNOSIS: Antrum, biopsy: - Reactive gastropathy, mild. - No evidence of intestinal metaplasia or acute gastritis. - Immunoperoxidase stain for Helicobacter negative. KT/FL/bk Gross Description: Received in formalin, labeled with the patient's name Ishan Childress and antral biopsy, consists of multiple fragments of hernandez irregular soft tissue aggregating 0.6 x 0.4 x 0.1 cm, which are entirely submitted in cassette [id number], that is labeled HP on the side. ??MZ/akg Microscopic Description: Two HE slides and 1 Helicobacter pylori immunostain examined. ??KT/bk I have reviewed all diagnostic slides and have edited the gross and/or microscopic portion of this report as part of my pathologic assessment and final diagnosis. Some tests use analyte-specific reagents (ASRs). These tests were developed and their performance characteristics determined by [facility] . They have not been cleared or approved by the US Food and Drug Administration. The FDA has determined that such clearance or approval is not necessary. These tests are used for clinical purposes. They should not be regarded as investigational or for research. Listed are all ASRs used at [facility]. ?? IHC: CMV, EBV, HSV, PIN4, AE1/3/CAM 5.2, p504s, adenovirus. Probes consist of KAVON, kappa, lambda, HPV family 6, HPV family 16, SIS HER2/evaristo. The pathologist signing this report is located at [facility], [address] [place] [address]. ANDREW WAYNE M.D. Pathologist Electronically signed 05/10/2011 us Callum Gallagher MD PATHOLOGY/CYTOLOGY ORDERABLES Final Result [facility] [address] [facility] [place] [address] documented in this encounter Visit Diagnoses Not on filedocumented in this encounter Care Teams L Tacker Relationship Specialty Start Date End Date Camila Jasso MD [address] [place] [address] PCP - General 12/03/06 10/08/16 documented as of this encounter
--- OUTSIDE RECORDS SUMMARY | 2024-03-14 18:26 | XMS_ITS | Encounter Summary ---
Author Organization [facility] Address [address] [place] [id number] Care Team Providers Care Wringer Operator Name Role Phone Marlo Rubio MD [...] release of HIV test results or diagnoses. [id number] Reason for Referral * Surgical (Routine) - Closed Specialty Diagnoses / Procedures Referred By Amalia tuttle Referred To Contact Radiology Diagnoses Difficult intravenous access Procedures IR PICC Right wo port pum > 5 years AMB Referral to Interventional Radiology (BODY IR) [place] INSERT PICC W/O SUB-Q PORT CHG FLUOROGUIDE CNTRL KRISTOPHER ACCESS,PLACE,REPLACE,REMOVE Deborah Parker MD [address] [facility] [address] [place] [phone] Phone: tel: fax: Referral ID Status Reason Start Date Expiration Date Visits Re quested Visits Authorized [id number] Closed 10/10/2016 04/08/2017 1 1 Reason for Visit * Auth/Cert Specialty Diagnoses / Procedures Referred By Amalia tuttle Referred To Contact Radiology [facility] [place] [address] [place] [phone] Phone: tel: Referral ID Status Reason Start Date Expiration Date Visits Re quested Visits Authorized [id number] 1 1 Encounter Details Date Type Department Care Team (Latest Contact Info) Description 10/14/2016 8:10 AM EDT Hospital Encounter [facility] Interventional Radiology [address] [place] [phone] Deborah Parker MD [address] [facility] [address] [place] [address] Kenn Drake PA Difficult intravenous access Discharge Disposition: Home or Self Care WITHOUT [...] as of this encounter H&P Notes * Babatunde Brower MD - 10/14/2016 9:13 AM EDT Interventional Radiology Pre-Procedure History and Physical Date: 10/14/2016 Patient: Gardenia Childress Patient is a 36 y.o. female presenting to Interventional Radiology for PICC placement prior to CT. Patient has history of difficult venous access. Past Medical History Diagnosis Date ??? Biliary stenosis ??? 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 Migraine Past Surgical History Procedure Laterality Date ??? Cholecystectomy ??? Appendectomy Allergies Allergen Reactions ??? Aspirin Other (See Comments) Due to biliary atresia ??? Morphine Nausea And Vomiting Current Outpatient Prescriptions on File Prior to Encounter Medication Sig Dispense Refill ??? dicyclomine (BENTYL) 20 mg tablet Take 20 mg by mouth 4 times a day with meals and at bedtime. ??? omeprazole (PRILOSEC OTC) 20 MG tablet Take 1 tablet (20 mg total) by mouth daily. 30 tablet 0 ??? SUMAtriptan (IMITREX) 25 MG tablet Take 25 mg by mouth once as needed for Migraine. ??? topiramate (TOPAMAX) 25 MG sprinkle capsule Take 25 mg by mouth 2 times a day. No current facility-administered medications on file prior to encounter. There were no vitals filed for this visit. Relavent Labs: Lab Results Component Value Date WBC 7.9 09/26/2016 HGB 13.8 09/26/2016 HCT 41.6 09/26/2016 MCV 85.1 09/26/2016 PLT 269 09/26/2016 Lab Results Component Value Date CREATININE 0.79 09/26/2016 Lab Results Component Value Date INR 1.0 06/07/2009 PROTIME 10.2 06/07/2009 Lab Results Component Value Date ALT 14 09/26/2016 AST 24 09/26/2016 ALKPHOS 63 09/26/2016 BILITOT 0.5 09/26/2016 ZHEN Classification: ASA 2 - Patient with mild systemic disease with no functional limitations The patient is in satisfactory condition for the procedure and sedation. Mallampati Class: 2. Sedation Type/Plan: Local/Subcutaneous Lidocaine 1% Imaging: Reviewed Assessment/Plan: PICC placement Please call with questions. Augustin Brower MD Interventional Radiology, PGY-3 Pager: [phone] IR Reading Room: [address] [place] [address] documented in this encounter Procedure Notes * Babatunde Brower MD - 10/14/2016 9:13 AM EDT Interventional Radiology Post Procedure Note Date: 10/14/2016 Patient: Gardenia Childress Name of the procedure performed: PICC placement Operators: Augustin Brower MD (Bookkeeping Teacher) Dar Drake PA-C Pre-operative diagnosis: Venous access prior to CT. Difficult peripheral venous access. Post-operative diagnosis: Same Specimens removed: None Findings: Successful right basilic PICC placement Medications: Lidocaine 1% (Local) Estimated Blood Loss: Minimal (Less Than 15 mL) Complications: None. Recommendations/Followup: Okay for immediate use. Return to IR department for removal. -Please refer to full dictated Radiology report for details of findings/procedure. Thank you, Augustin Brower MD Interventional Radiology, PGY-3 Pager: [phone] IR Reading Room: [address] [place] [address] documented in this encounter Plan of Treatment Not on file documented as of this encounter Procedures Procedure Name Priority Date/Time Associated Diagnosis Comments IR PICC RIGHT WO PORT PUMP > 5 YRS INCL IMAGING Routine 10/14/2016 9:14 AM EDT Difficult intravenous access documented in this encounter Results * IR PICC Right wo port pum > 5 years (10/14/2016 9:14 AM EDT) Anatomical Region Laterality Modality Vascular X-Ray Angiograph y 10/14/2016 9:14 AM EDT Impressions 10/14/2016 10:21 AM EDT IMPRESSION: 1. Successful right, 4-F single-lumen Power PICC placement. ?? Report Verified by: Kenn Drake at 10/14/2016 10:21 AM EDT Narrative 10/14/2016 10:21 AM EDT Procedure: PICC placement, ultrasound- and fluoroscopic-guided Performed on 10/14/2016 Indications: 36-year-old female with history of poor peripheral venous access. Requires venous access for CT contrast injection. Operators: Dar Drake PA-C; Dr. Leonarda HERNANDEZ, resident Procedure and Findings: The procedure was performed in the VIR suite following informed consent and a time out. ??1% lidocaine local anesthesia was used. ?? The right arm was prepped and draped in the usual sterile fashion. ??Ultrasonography was utilized to evaluate the veins in the right upper arm. ??The basilic vein was widely patent. ?? Using ultrasound guidance, a 21-G micropuncture needle followed by a 0.018 inch guidewire were placed into the basilic vein. ??The micropuncture needle was exchanged over the guidewire for a peel-away sheath. ?? Using fluoroscopic guidance, the PICC was placed into position. ?? A permanent fluoroscopic image was obtained which confirmed the catheter was at the cavoatrial junction. ?? The catheter was flushed with normal saline, secured with a Stat-Lock and dressed in the usual fashion. ?? There were no immediate complications. ??Total fluoroscopy time was 0.3 minutes. ?? Procedure Note Kenn Drake PA - 10/14/2016 Procedure: PICC placement, ultrasound- and fluoroscopic-guided Performed on 10/14/2016 Indications: 36-year-old female with history of poor peripheral venousaccess. Requires venous access for CT contrast injection. Operators: Dar Drake PA-C; Dr. Leonarda HERNANDEZ, resident Procedure and Findings: The procedure was performed in the VIR suite following informed consentand a time out. 1% lidocaine local anesthesia was used. The right arm was prepped and draped in the usual sterile fashion.Ultrasonography was utilized to evaluate the veins in the right upper arm.The basilic vein was widely patent. Using ultrasound guidance, a 21-G micropuncture needle followed by a 0.018inch guidewire were placed into the basilic vein. The micropunctureneedle was exchanged over the guidewire for a peel-away sheath. Using fluoroscopic guidance, the PICC was placed into position. A permanent fluoroscopic image was obtained which confirmed the catheterwas at the cavoatrial junction. The catheter was flushed with normal saline, secured with a Stat-Lock anddressed in the usual fashion. There were no immediate complications. Total fluoroscopy time was 0.3minutes. IMPRESSION: 1. Successful right, 4-F single-lumen Power PICC placement. Report Verified by: Kenn Drake at 10/14/2016 10:21 AM EDT us Deborah Parker MD IMG IR ORDERABLES Final Result documented in this encounter Visit Diagnoses Diagnosis Difficult intravenous access documented in this encounter Care Teams Wringer Operator Relationship Specialty Start Date End Date Marlo Rubio MD PCP - General Family Medicine 10/09/16 documented as of this encounter
--- OUTSIDE RECORDS SUMMARY | 2024-03-14 18:26 | XMS_ITS | Encounter Summary ---
Author Organization [facility] Address [address] [place] [address] Care Team Providers Care Watermelon Inspector Name Role Phone Camila Jasso MD Primary Care Provider [phone] Source Comments This information has been disclosed [...] release of HIV test results or diagnoses. [id number] Reason for Visit * Reason Comments Abdominal Pain Encounter Details Date Type Department Care Team (Late st Contact Info) Description 09/26/2016 9:34 AM EDT - 09/26/2016 11:38 AM EDT Emergency [facility] Emergency Department [address] [place] [phone] Aleksey Bruce MD Epigastric pain (Primary Dx) Discharge Disposition: Home or Self Care WITHOUT [...] Sign Reading Time Taken Comments Blood Pressure 113/79 09/26/2016 9:06 AM EDT Pulse 65 09/26/2016 9:06 AM EDT Temperature 36.5 ??C (97.7 ??F) 09/26/2016 9:06 AM ED T Respiratory Rate 17 09/26/2016 9:06 AM EDT Oxygen Saturation 100% 09/26/2016 9:06 AM EDT Inhaled Oxygen Concentration 100% 09/26/2016 9 :06 AM EDT Weight - - Height - - Body Mass Index - - documented in this encounter Discharge Instructions * Attachments The following attachments cannot be sent through Care Everywhere. * ABDOMINAL PAIN, ADULT ([place]) documented in this encounter Medications at Time [...] mg by mouth 2 times a day. cephALEXin (KEFLEX) 500 MG capsule Take 1 capsule (500 mg total) by mouth 4 times daily before meals and at bedtime for 3 days. 12 capsule 0 09/26/2016 09/29/2016 documented as of this encounter Progress Notes * lAeksey Bruce MD - 09/26/2016 11:14 AM EDT ED Attending Attestation Note Date of service: 09/26/2016 This patient was seen by the resident physician. I have seen and examined the patient, agree with the workup, evaluation, management and diagnosis. The care plan has been discussed and I concur. My assessment reveals a 36 y.o. female presents emergency department with a few weeks of epigastricabdominal pain. Exam reveals soft abdomen.. documented in this encounter H&P Notes * Kelvin López MD - 09/26/2016 9:36 AM EDT [facility] ED Note Date of Service: 09/26/2016 Reason for Visit: Abdominal Pain Patient History HPI: This is a 36 y.o. female with history of biliary atresia s/p [place] presenting with abdominal pain. Patient states over the last several weeks she has had constant pain in her epigastric region. She says it is normally a dull ache but sometimes gets very sharp as well. She says that the last time she had pain like this she required dilation of her biliary tree. She denies fevers, chills, vomiting, diarrhea, bloody stools, constipation, dysuria, abnormal vaginal bleeding or discharge. Last menstrual period was approximately one month ago. She denies any aggravating or alleviating factors. Past Medical History Diagnosis Date ??? Biliary stenosis ??? 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 No pertinent past surgical history. Gardenia Childress reports that she has never smoked. She does not have any smokeless tobacco history onfile. She reports that she drinks alcohol. She reports that she does not use illicit drugs. Patient's Medications New Prescriptions CEPHALEXIN (KEFLEX) 500 MG CAPSULE Take 1 capsule (500 mg total) by mouth 4 times daily before meals and at bedtime for 3 days. OMEPRAZOLE (PRILOSEC OTC) 20 MG TABLET Take 1 tablet (20 mg total) by mouth daily. Previous Medications DICYCLOMINE (BENTYL) 20 MG TABLET Take 20 mg by mouth 4 times a day with meals and at bedtime. SUMATRIPTAN (IMITREX) 25 MG TABLET Take 25 mg by mouth once as needed for Migraine. TOPIRAMATE (TOPAMAX) 25 MG SPRINKLE CAPSULE Take 25 mg by mouth 2 times a day. Modified Medications No medications on file Discontinued Medications No medications on file Allergies: Allergies as of 09/26/2016 - Fully Reviewed 09/26/2016 Allergen Reaction Noted ??? Aspirin Other (See Comments) 09/26/2016 ??? Morphine Nausea And Vomiting 09/26/2016 PMH: Nursing notes reviewed PSH: Nursing notes reviewed FH: Nursing notes reviewed MEDS: Nursing notes and chart reviewed Review of Systems ROS: CONST - no fevers, no chills HEAD - no headache EYES/EARS - no vision changes NOSE/THROAT - no rhinorrhea, no sore throat CV - no CP PULM - no SOB GI - no n/v/d - no dysuria, frequency, urgency, hematuria, abnormal vaginal bleeding, discharge, pruritis, odor MS - no arthralgias, no myalgias, no swelling NEURO - no paresis, no numbness/tingling INTEGUMENT - no lesions, no rashes Physical Exam Filed Vitals: 09/26/16 0906 BP: 113/79 Pulse: 65 Temp: 97.7 ??F (36.5 ??C) TempSrc: Oral Resp: 17 SpO2: 100% General: well developed; well appearing female in no apparent distress HEENT: normocephalic, atraumatic; pupils equal, round and reactive; sclera anicteric; conjunctiva pink; moist mucous membranes; no oropharyngeal erythema or mucosal lesions Neck: Neck moves easily; range of motion full. Pulmonary: lung sounds clear to auscultation bilaterally with good air entry; no respiratory distress; no wheezes or rales Cardiac: regular rate and regular rhythm with no murmurs, rubs, or gallops Abdomen: soft; non-distended; Endorses very mild tenderness to palpation epigastrium with no rebound or guarding; normal bowel sounds Musculoskeletal: atraumatic exam with no focal swelling or tenderness. No peripheral edema Vascular: 2+ peripheral pulses in bilateral upper and lower extremities Skin: warm and well perfused without rashes or lesions Neuro: Awake and alert. Moves all extremities spontaneously. Psych: appropriate mood and affect Diagnostic Studies Labs: Relevant labs reviewed. Please see medical record for test performed in the ED. Emergency Department Procedures Procedures ED Course and MDM Gardenia Childress is a 36 y.o. female with a history and presentation as described above in HPI. The patient was evaluated by myself and the ED Attending Physician, Dr. Bruce. All management and disposition plans were discussed and agreed upon. Upon presentation, the patient was Afebrile, with normal stable vital signs, was overall well in appearance. Normal WBC, liver enzymes, lipase, alk phos, and bilirubin makes pancreatitis, hepatitis, choledocholithiasis and biliary stasis/obstruction unlikely. Given no history or forceful vomiting and few risk factors, ruptured esophagus is unlikely. Minimal cardiac history, few risk factors, makes atypical presentation of ACS unlikely. Patient has had gallbladder and appendix removed so I do not have a suspicion for cholecystitis or appendicitis. There is no evidence of obstruction on our exam today and the patient is tolerating PO intake prior to discharge. Urinalysis was notable for trace leukocytes with 8 wbc's on microanalysis which may represent urinary tract infection. Urine culture is sent.Urine test is negative. She will be treated with a short course of Keflex. She was given some Zofran and a GI cocktail which she said did not relieve her symptoms. I do not feel patient requires any imaging studies in the emergency department at this time but do feel she would benefit from follow-up with her senior linux unix administrator, Dr. Rocha. Summary of Treatment in ED: Medications aluminum & magnesium hydroxide-simethicone (MYLANTA, MAALOX) suspension 30 mL (30 mLs Oral Given 09/26/16 1014) And lidocaine HCl (XYLOCAINE) 2 % viscous soln Soln 15 mL (15 mLs Oral Given 09/26/16 1014) ondansetron (ZOFRAN) 4 mg/2 mL injection 4 mg (4 mg Intravenous Given 09/26/16 1013) Impression 1. Epigastric pain Plan At this time the patient has been deemed safe for discharge. The patient was prescribed omeprazole and keflex. The patient was advised to follow up with her senior linux unix administrator. Risks, benefits, and alternatives were discussed. Discharge instructions including strict return precautions for worseningor new symptoms have been communicated. The patient verbalized understanding of the instructions and agreement with the plan. KELVIN LÓPEZ MD, PGY-2 Emergency Medicine Kelvin López MD Resident 09/26/16 1137 Cosigned by Aleksey Bruce MD at 09/30/2016 2:22 PM EDT documented in this encounter ED Notes * Key Leach RN - 09/26/2016 9:39 AM EDT Pt c/o dull pain in upper GI, states it is similar to when she had biliary stenosis in 2008. DeniesN/V/D * Venecia Ricardo RN - 09/26/2016 8:59 AM EDT Vague complains of epigastric pain for a while. Denies nausea, vomiting or diarrhea. documented in this encounter Plan of Treatment Not on file documented as of this encounter Procedures Procedure Name Priority Date/Time Associated Diagnosis Comments URINE CULTURE, ED PATIENT Add-On 09/26/2016 11:28 AM EDT POTASSIUM STAT 09/26/2016 11:14 AM EDT URINALYSIS, MICROSCOPIC STAT 09/26/2016 10:05 AM EDT URINALYSIS-MACROSCOPI C W/REFLEX TO MICROSCOPIC STAT 09/26/2016 10:05 AM EDT HCG URINE, QUALITATIVE STAT 09/26/2016 10:05 AM EDT HEPATIC FUNCTION PANEL STAT 09/26/2016 10:05 AM EDT DIFFERENTIAL STAT 09/26/2016 10:05 AM EDT CBC STAT 09/26/2016 10:05 AM EDT LIPASE STAT 09/26/2016 10:05 AM EDT BASIC METABOLIC PANEL STAT 09/26/2016 10:05 AM EDT documented in this encounter Results * Urine Culture, ED Patient (09/26/2016 11:28 AM EDT) Culture Result <10,000 cfu/mL [facility] Culture Result Mixed Skin/Urogeni bony Mindi. No Further Workup. [facility] Urine specimen (specimen) URINE SPECIMEN / Unknown 09/26/2016 11:28 AM EDT 09/26/2016 12:59 PM EDT Kelvin López MD MICROBIOLOGY - GENERAL ORDERABL ES Final Result [facility] [address] * Potassium (09/26/2016 11:14 AM EDT) Potassium 4.1 3.5 - 5.3 mmol/L 09/26/2016 11:30 AM EDT [facility] Plasma specimen (specimen) 09/26/2016 11:14 AM EDT 09/26/2016 11:15 AM EDT Kelvin López MD LAB BLOOD ORDERABLES Final Resu lt [facility] [address] * (ABNORMAL) Urinalysis, Microscopic (09/26/2016 10:05 AM EDT) RBC, UA 1 0 - 3 /HPF 09/26/2016 10:42 AM EDT [facility] WBC, UA 8(H) 0 - 5 /HPF 09/26/2016 10:42 AM EDT [facility] Squam Epithel, UA 4 0 - 5 /HPF 09/26/2016 10:42 AM EDT [facility] Bacteria, UA Rare(A) None Seen /HPF 09/26/2016 10:42 AM EDT [facility] Mucus, UA Present(A) None Seen /HPF 09/26/2016 10:42 AM EDT [facility] Urine specimen (specimen) 09/26/2016 10:05 AM EDT 09/26/2016 10:09 AM EDT Kelvin López MD URINE ORDERABLES Final Result [facility] [address] * Differential (09/26/2016 10:05 AM EDT) Neutrophils Relative 69.8 40.0 - 80.0 % 09/26/2016 10:27 AM EDT [facility] Lymphocytes Relative 19.1 15.0 - 45.0 % 09/26/2016 10:27 AM EDT [facility] Monocytes Relative 6.5 0.0 - 12.0 % 09/26/2016 10:27 AM EDT [facility] Eosinophils Relative 4.2 0.0 - 8.0 % 09/26/2016 10:27 AM EDT [facility] Basophils Relative 0.4 0.0 - 1.0 % 09/26/2016 10:27 AM EDT [facility] nRBC 0 0 - 0 /100 WBC 09/26/2016 10:27 AM EDT [facility] Neutrophils Absolute 5,514 1,500 - 7,800 /uL 09/26/2016 10:27 AM EDT [facility] Lymphocytes Absolute 1,509 850 - 3,900 /uL 09/26/2016 10:27 AM EDT [facility] Monocytes Absolute 514 200 - 950 /uL 09/26/2016 10:27 AM EDT [facility] Eosinophils Absolute 332 15 - 500 /uL 09/26/2016 10:27 AM EDT [facility] Basophils Absolute 32 0 - 200 /uL 09/26/2016 10:27 AM EDT [facility] Whole blood specimen (specimen) 09/26/2016 10:05 AM EDT 09/26/2016 10:16 AM EDT Kelvin López MD LAB BLOOD ORDERABLES Final Resu lt [facility] [address] [place] [address], [facility] * CBC (09/26/2016 10:05 AM EDT) WBC 7.9 3.8 - 10.8 10E3/uL 09/26/2016 10:27 AM EDT [facility] RBC 4.89 3.80 - 5.10 10E6/uL 09/26/2016 10:27 AM EDT [facility] Hemoglobin 13.8 11.7 - 15.5 g/dL 09/26/2016 10:27 AM EDT [facility] Hematocrit 41.6 35.0 - 45.0 % 09/26/2016 10:27 AM EDT [facility] MCV 85.1 80.0 - 100.0 fL 09/26/2016 10:27 AM EDT [facility] MCH 28.2 27.0 - 33.0 pg 09/26/2016 10:27 AM EDT [facility] MCHC 33.1 32.0 - 36.0 g/dL 09/26/2016 10:27 AM EDT [facility] RDW 14.1 11.0 - 15.0 % 09/26/2016 10:27 AM EDT [facility] Platelets 269 140 - 400 10E3/uL 09/26/2016 10:27 AM EDT [facility] MPV 8.3 7.5 - 11.5 fL 09/26/2016 10:27 AM EDT [facility] Whole blood specimen (specimen) 09/26/2016 10:05 AM EDT 09/26/2016 10:16 AM EDT Kelvin López MD LAB BLOOD ORDERABLES Final Resu lt Performing Organization Address City/[facility]/ZIP Co de Phone Number [facility] [address] [facility]. [address] * Lipase (09/26/2016 10:05 AM EDT) Lipase 14 4 - 82 U/L 09/26/2016 10:23 AM EDT [facility] Plasma specimen (specimen) 09/26/2016 10:05 AM EDT 09/26/2016 10:06 AM EDT Kelvin López MD LAB BLOOD ORDERABLES Final Resu lt [facility] [address] [facility]. [address] * Hepatic Function Panel (09/26/2016 10:05 AM EDT) Total Bilirubin 0.5 0.0 - 1.5 mg/dL 09/26/2016 10:23 AM EDT [facility] Bilirubin, Direct 0.1 0.0 - 0.4 mg/dL 09/26/2016 10:23 AM EDT [facility] Comment:HEMOLYSIS EVIDENT. R ESULTS MAY BE INFLUENCED. AST 24 13 - 39 U/L 09/26/2016 10:23 AM EDT [facility] ALT 14 7 - 52 U/L 09/26/2016 10:23 AM EDT [facility] Alkaline Phosphatase 63 36 - 125 U/L 09/26/2016 10:23 AM EDT [facility] Total Protein 7.6 6.4 - 8.9 g/dL 09/26/2016 10:23 AM EDT [facility] Albumin 4.3 3.5 - 5.7 g/dL 09/26/2016 10:23 AM EDT [facility] Bilirubin, Indirect 0.4 0.0 - 1.1 mg/dL 09/26/2016 10:23 AM EDT [facility] Plasma specimen (specimen) 09/26/2016 10:05 AM EDT 09/26/2016 10:06 AM EDT Kelvin López MD LAB BLOOD ORDERABLES Final Resu lt [facility] [address] * Basic metabolic panel (09/26/2016 10:05 AM EDT) Sodium 140 133 - 146 mmol/L 09/26/2016 10:23 AM EDT [facility] Potassium 4.8 3.5 - 5.3 mmol/L 09/26/2016 10:23 AM EDT [facility] Comment:Hemolysis Present: R esults may be influenced artificially. Recommend recollection as clinically indicated. Chloride 109 98 - 110 mmol/L 09/26/2016 10:23 AM EDT [facility] CO2 24 21 - 33 mmol/L 09/26/2016 10:23 AM EDT [facility] Anion Gap 7 3 - 16 mmol/L 09/26/2016 10:23 AM EDT [facility] BUN 11 7 - 25 mg/dL 09/26/2016 10:23 AM EDT [facility] Creatinine 0.79 0.60 - 1.30 mg/dL 09/26/2016 10:23 AM EDT [facility] Glucose 81 70 - 100 mg/dL 09/26/2016 10:23 AM EDT [facility] Calcium 9.2 8.6 - 10.3 mg/dL 09/26/2016 10:23 AM EDT [facility] Osmolality, Calculated 288 278 - 305 mOsm/kg 09/26/2016 10:23 AM EDT [facility] eGFR AA CKD-EPI >90 See note. 7 10:23 AM EDT [facility] eGFR NONAA CKD-EPI >90 See note. 09/26/2016 10:23 AM EDT [facility] Plasma specimen (specimen) 09/26/2016 10:05 AM EDT 09/26/2016 10:06 AM EDT Narrative [facility] - 09/26/2016 10:23 AM EDT As of 06/20/2015 the estimated GFR is calculated from serum creatinine using the Chronic Kidney Disease Epidemiology Collaboration (CKD-EPI) equation in patients 18 years and older. ??The reference range is >60 mL/min/1.73m2. ??eGFR values greater than 90 will be reported as >90mL/min/1.73m2. Reference: Marisol , Jame LA, Ben CH, Francisco YL, Marcello AF, 3rd, Bo HI, et. al. A new equation to estimate glomerular filtration rate. ??Alexa [employer] Med. 2009:150(9):604-12 Kelvin López MD LAB BLOOD ORDERABLES Final Resu lt Performing Organization Address City/[facility]/ZIP Co de Phone Number [facility] [address] [facility]. [address] * , Urine, Qualitative (09/26/2016 10:05 AM EDT) Preg Test, Ur NEGATIVE NEGATIVE 09/26/2016 10:11 AM EDT [facility] Urine specimen (specimen) 09/26/2016 10:05 AM EDT 09/26/2016 10:06 AM EDT Kelvin López MD URINE ORDERABLES Final Result Performing Organization Address [facility] de Phone Number [facility] [address] * (ABNORMAL) Urinalysis - Macroscopic w/ Reflex to Microscopic (09/26/2016 10:05 AM EDT) Color, UA Yellow Yellow,Straw 09/26/2016 10:09 AM EDT [facility] Clarity, UA Clear Clear 09/26/2016 10:09 AM EDT [facility] Specific [place], UA 1.020 1.005 - 1.035 09/26/2016 10:09 AM EDT [facility] pH, UA 7.0 5.0 - 8.0 09/26/2016 10:09 AM EDT [facility] Protein, UA Negative Negative mg/dL 09/26/2016 10:09 AM EDT [facility] Glucose, UA Negative Negative mg/dL 09/26/2016 10:09 AM EDT [facility] Ketones, UA Negative Negative mg/dL 09/26/2016 10:09 AM EDT [facility] Bilirubin, UA Negative Negative 09/26/2016 10:09 AM EDT [facility] Blood, UA Trace-intact (A) Negative 09/26/2016 10:09 AM EDT [facility] Nitrite, UA Negative Negative 09/26/2016 10:09 AM EDT [facility] Urobilinogen, UA 0.2 E.U./dL 0.2 - 1.0 EU/dL 09/26/2016 10:09 AM EDT [facility] Leukocyte Esterase, UA Trace(A) Negative 09/26/2016 10:09 AM EDT [facility] Urine specimen (specimen) 09/26/2016 10:05 AM EDT 09/26/2016 10:06 AM EDT Kelvin López MD URINE ORDERABLES Final Result Performing Organization Address City/State/[facility] Co de Phone Number [facility] [address] documented in this encounter Visit Diagnoses Diagnosis Epigastric pain- Primary Abdominal pain, epigastric documented in this encounter Administered Medications Inactive Administered Medications - up to 3 most recent administrations Medication Order MAR Action Action Date Dose Rate Site aluminum & magnesium hydroxide-simethicone (MYLANTA, MAALOX) suspension 30 mL 30 mL, Oral, Once, On Stephanie 09/26/16 at 0948, For 1 dose, Therapeutic Interchange for GI Cocktail: Administer 30mL of aluminum & magnesium hydroxide-simethicone (Mag-Al Plus XS) suspension AND Viscous lidocaine 2% 15mL solution. Given 09/26/2016 10:14 AM EDT 30 mLs lidocaine HCl (XYLOCAINE) 2 % viscous soln Soln 15 mL 15 mL, Oral, Once, On Stephanie 17 at 0948, For 1 dose, Therapeutic Interchange for GI Cocktail: Administer orally- 30mL of aluminum & magnesium hydroxide-simethicone (Mag-Al Plus XS) suspension AND Viscous lidocaine 2% 15mL solution. Given 09/26/2016 10:14 AM EDT 15 mLs ondansetron (ZOFRAN) 4 mg/2 mL injection 4 mg 4 mg, Intravenous, Once, On Stephanie 09/26/16 at 1011, For 1 dose Given 09/26/2016 10:13 AM EDT 4 mg documented in this encounter Active and Recently Administered Medications Times are shown in EDT. Scheduled Medication Order 09/24/2016 09/25/2016 09/26/2016 aluminum & magnesium hydroxide-simethicone (MYLANTA, MAALOX) suspension 30 mL (COMPLETED)(Linked Group 1) 30 mL, Oral, Once, On Stephanie 17 at 0948, For 1 dose, Therapeutic Interchange for GI Cocktail: Administer 30mL of aluminum & magnesium hydroxide-simethicone (Mag-Al Plus XS) suspension AND Viscous lidocaine 2% 15mL solution. 1014 (Given - Provid er: Key Leach RN) lidocaine HCl (XYLOCAINE) 2 % viscous soln Soln 15 mL (COMPLETED)(Linked Group 1) 15 mL, Oral, Once, On Stephanie 17 at 0948, For 1 dose, Therapeutic Interchange for GI Cocktail: Administer orally- 30mL of aluminum & magnesium hydroxide-simethicone (Mag-Al Plus XS) suspension AND Viscous lidocaine 2% 15mL solution. 1014 (Given - Provid er: Key Leach RN) ondansetron (ZOFRAN) 4 mg/2 mL injection 4 mg (COMPLETED) 4 mg, Intravenous, Once, On Stephanie 6/17 at 1011, For 1 dose 1013 (Given - Provid er: Key Leach RN) Linked Groups Order Group 1: aluminum & magnesium hydroxide-simethicone (MYLANTA, MAALOX) suspension 30 mL (COMPLETED)Jump to med 30 mL, Oral, Once, On Stephanie 09/26/16 at 0948, For 1 dose, Therapeutic Interchange for GI Cocktail: Administer 30mL of aluminum & magnesium hydroxide-simethicone (Mag-Al Plus XS) suspension AND Viscous lidocaine 2% 15mL solution. And lidocaine HCl (XYLOCAINE) 2 % viscous soln Soln 15 mL (COMPLETED)Jump to med 15 mL, Oral, Once, On Stephanie 09/26/16 at 0948, For 1 dose, Therapeutic Interchange for GI Cocktail: Administer orally- 30mL of aluminum & magnesium hydroxide-simethicone (Mag-Al Plus XS) suspension AND Viscous lidocaine 2% 15mL solution. documented in this encounter Care Teams Watermelon Inspector Relationship Specialty Start Date End Date Camila Jasso MD [address] [place] [address] PCP - General 12/03/06 10/08/16 documented as of this encounter
--- OUTSIDE RECORDS SUMMARY | 2024-03-14 18:26 | XMS_ITS | Encounter Summary ---
Author Organization [facility] Address [address] [place] [id number] Care Team Providers Care Group Work Program Aide Name Role Phone Marlo Rubio MD Primary [...] release of HIV test results or diagnoses. [id number] Health Encounter Details Date Type Department Care Team (Late st Contact Info) Description 10/09/2016 Orders Only [facility] Transplant Surgery at [facility] [address] [facility] [address] [place], [place] [id number] Deborah Parker MD [address] [facility] [address] Trans[place] [id number] Generalized abdominal pain (Primary Dx) Social History Tobacco Use [...] as of this encounter Visit Diagnoses Diagnosis Generalized abdominal pain- Primary Abdominal pain, generalized documented in this encounter Care Teams Group Work Program Aide Relationship Specialty Start Date End Date Marlo Rubio MD PCP - General Family Medicine 10/09/16 documented as of this encounter
--- OUTSIDE RECORDS SUMMARY | 2024-03-14 18:26 | XMS_ITS | Encounter Summary ---
Author Organization [facility] Address [address] [place] [address] Care Team Providers Care Landman Name Role Phone Marlo Rubio MD Primary [...] release of HIV test results or diagnoses. [id number] Reason for Referral * (Routine) - Closed Specialty Diagnoses / Procedures Referred By Amalia t Referred To Contact Radiology Diagnoses Celiac artery stenosis ([facility]-HCC) Procedures IR inj nerve block Lum-Thor Bilat AMB Referral to Interventional Radiology (BODY IR) Deborah Parker MD [address] [facility] [address] [place] [address] Phone: tel: fax: Referral ID Status Reason Start Date Expiration Date Visits Re quested Visits Authorized [id number] Closed 10/29/2016 04/27/2017 1 1 Encounter Details Date Type Department Care Team (Late st Contact Info) Description 10/29/2016 Orders Only [facility] Transplant Surgery at [facility] [address] [facility] [address] [place], [place] [id number] Deborah Parker MD [address] [facility] [address] [place] [phone] Celiac artery stenosis (CMS-HCC) (Primary Dx) Social History Tobacco Use Types [...] on file documented as of this encounter Results * IR inj nerve block Lum-Thor Bilat (10/31/2016 3:01 PM EDT) Anatomical Region Laterality Modality L-spine, T-spine X-Ray Angiograp hy 10/31/2016 1:02 PM EDT Impressions 11/06/2016 4:47 PM EDT IMPRESSION: Technically successful CT-guided, percutaneous, bilateral posterior paravertebral antecrural approach celiac plexus block. Plan/recommendations: The patient will be monitored in the IR holding area for signs and symptoms of bleeding. A follow-up chest x-ray was obtained which demonstrated no enlarging pneumothorax. The patient was instructed to monitor for signs and symptoms bleeding or neurologic changes. While in the procedure room, the patient stated that her symptoms after ingestion of food improved which may be a sign of early successful celiac plexus block. Following discharge, ??short-term follow-up of the patient has reported resolution of symptoms associated with ingestion of food. Follow-up surgical intervention planned for next week, will be coordinated via Dr. Deborah Parker. Approved by Guerita Wilson on 10/31/2016 6:51 PM EDT I have personally reviewed the images and I agree with this report. Report Verified by: Nithya Roger M.D. at 11/06/2016 4:47 PM EDT Narrative 11/06/2016 4:47 PM EDT PROCEDURE: Celiac plexus block, CT-guided Performed on 10/31/2016 INDICATIONS: 36-year-old female with refractory abdominal pain with median arcuate ligament syndrome with symptoms exacerbated by food intake. Recent CT identified anatomical celiac artery stenosis. IR was consulted for celiac plexus block. There is impending plan for surgical release, and a celiac plexus block was requested as an assessment prior to surgery. OPERATORS: Guerita Wilson MD (VIR Fellow) and Nithya Roger MD (VIR attending) COMPARISONS: CT angiography performed on October 14, 2016 PROCEDURE AND FINDINGS: The procedure was performed in the IR CT room following informed consent and a time out. ??The patient received 45 minutes of IV moderate sedation under the supervision of the radiologist. ??1% lidocaine local anesthesia was used. ??With the patient in the prone position, limited axial CT images were obtained to localize the celiac artery, specifically localizing celiac plexus. ??The precise skin entry site was identified. ??The back was prepped and draped in the usual sterile fashion. ?? Using planning CT information, two 22-gauge Chiba needle were advanced alongside the vertebral bodies on each side (right and left approach) into the antecrural space. After the position of the needle tips were confirmed utilizing CT fluoroscopy, aspiration was performed, no blood return was observed, and approximately 5 mL of dilute iodinated contrast material was injected into the antecrual space. After confirming free diffusion of contrast material in the intracrural space, approximately 20 mL of 0.25 % Marcaine (5 ml of 25mg/10mL Marcaine) / 1% lidocaine solution was injected through each needle, totaling volume of 40 mL into antecrural space. The needles were removed and the entry sites were dressed in the usual sterile fashion. Completion CT images show diffuse spread of the solution in the preaortic space. There is a trace basilar left pneumothorax. No additional immediate complications otherwise. This procedure was performed under the personal supervision of Dr. Roger, who was present for the entire procedure. Procedure Note Nithya Roger MD - 11/06/2016 PROCEDURE: Celiac plexus block, CT-guided Performed on 10/31/2016 INDICATIONS: 36-year-old female with refractory abdominal pain with medianarcuate ligament syndrome with symptoms exacerbated by food intake. RecentCT identified anatomical celiac artery stenosis. IR was consulted forceliac plexus block. There is impending plan for surgical release, and aceliac plexus block was requested as an assessment prior to surgery. OPERATORS: Guerita Wilson MD (VIR Fellow) and Nithya Roger MD(VIR attending) COMPARISONS: CT angiography performed on October 14, 2016 PROCEDURE AND FINDINGS: The procedure was performed in the IR CT room following informed consentand a time out. The patient received 45 minutes of IV moderate sedationunder the supervision of the radiologist. 1% lidocaine local anesthesiawas used. With the patient in the prone position, limited axial CT imageswere obtained to localize the celiac artery, specifically localizingceliac plexus. The precise skin entry site was identified. The back wasprepped and draped in the usual sterile fashion. Using planning CT information, two 22-gauge Chiba needle were advancedalongside the vertebral bodies on each side (right and left approach) intothe antecrural space. After the position of the needle tips were confirmedutilizing CT fluoroscopy, aspiration was performed, no blood return wasobserved, and approximately 5 mL of dilute iodinated contrast material wasinjected into the antecrual space. After confirming free diffusion ofcontrast material in the intracrural space, approximately 20 mL of 0.25 %Marcaine (5 ml of 25mg/10mL Marcaine) / 1% lidocaine solution was injectedthrough each needle, totaling volume of 40 mL into antecrural space. Theneedles were removed and the entry sites were dressed in the usual sterilefashion. Completion CT images show diffuse spread of the solution in the preaorticspace. There is a trace basilar left pneumothorax. No additional immediatecomplications otherwise. This procedure was performed under the personal supervision of , who was present for the entire procedure. IMPRESSION: Technically successful CT-guided, percutaneous, bilateral posteriorparavertebral antecrural approach celiac plexus block. Plan/recommendations: The patient will be monitored in the IR holding area for signs andsymptoms of bleeding. A follow-up chest x-ray was obtained whichdemonstrated no enlarging pneumothorax. The patient was instructed tomonitor for signs and symptoms bleeding or neurologic changes. While inthe procedure room, the patient stated that her symptoms after ingestionof food improved which may be a sign of early successful celiac plexusblock. Following discharge, short-term follow-up of the patient hasreported resolution of symptoms associated with ingestion of food.Follow-up surgical intervention planned for next week, will be coordinatedvia Dr. Deborah Parker. Approved by Guerita Wilson on 10/31/2016 6:51 PM EDT I have personally reviewed the images and I agree with this report. Report Verified by: Nithya Roger M.D. at 11/06/2016 4:47 PM EDT us Deborah Parker MD IMG IR ORDERABLES Final Result documented in this encounter Visit Diagnoses Diagnosis Celiac artery stenosis (CMS-HCC)- Primary Stricture of artery documented in this encounter Care Teams Landman Relationship Specialty Start Date End Date Marlo Rubio MD PCP - General Family Medicine 10/09/16 documented as of this encounter
--- OUTSIDE RECORDS SUMMARY | 2024-03-14 18:26 | XMS_ITS | Encounter Summary ---
Author Organization [facility] Address [address] [place] [address] Care Team Providers Care Pulp Roller Name Role Phone Marlo Rubio MD Primary [...] release of HIV test results or diagnoses. [id number] Health Encounter Details Date Type Department Care Team (Latest Contact Info) Description 10/31/2016 3:02 PM EDT - 10/31/2016 11:59 PM EDT Hospital Encounter [facility] Rad[facility] [address] [place] [phone] Guerita Wilson MD [address] [place] [address] [phone] Discharge Disposition: Home or Self Care WITHOUT [...] times a day. 60 capsule 0 11/10/2016 omeprazole (PRILOSEC OTC) 20 MG tablet Take 1 tablet (20 mg total) by mouth daily. 30 tablet 0 09/26/2016 SUMAtriptan (IMITREX) 25 MG tablet Take 25 mg by mouth once as needed for Migraine. topiramate (TOPAMAX) 25 MG sprinkle capsule Take 25 mg by mouth 2 times a day. oxyCODONE (ROXICODONE) 10 mg Tab Take 1 tablet (10 mg total) by mouth every 4 hours as needed for up to 5 days. 30 tablet 0 11/10/2016 11/15/2016 polyethylene glycol (MIRALAX) 17 gram packet Take 17 g by mouth daily for 7 days. 7 each 0 11/10/2016 11/17/2016 documented as of this encounter Plan of Treatment Not on file documented as of this encounter Procedures Procedure Name Priority Date/Time Associated Diagnosis Comments XR PORTABLE CHEST Routine 10/31/2016 3:2 1 PM EDT documented in this encounter Results * X-ray Portable Chest (10/31/2016 3:21 PM EDT) Anatomical Region Laterality Modality Chest Radiographic Kristi ging 10/31/2016 3:11 PM EDT Impressions 10/31/2016 3:52 PM EDT IMPRESSION: No findings to suggest postprocedural complication. Report Verified by: Ramez Harding MD at 10/31/2016 3:52 PM EDT Narrative 10/31/2016 3:52 PM EDT Exam: XR PORTABLE CHEST CLINICAL HISTORY: Other - Must Specify in Comments; ??post celiac nerve block patient is in holding room 5; TECHNIQUE: Portable AP view of the chest. COMPARISON: Radiograph of the chest from 05/08/2011. FINDINGS: Medical Devices: None. Heart and Mediastinum: The cardiomediastinal contours are unchanged and within normal limits. Lungs and Pleura: ??The lungs are clear. No pneumothorax. Bones and Soft tissues: Nothing acute. Procedure Note Ramez Harding MD - 10/31/2016 Exam: XR PORTABLE CHEST CLINICAL HISTORY: Other - Must Specify in Comments; post celiac nerveblock patient is in holding room 5; TECHNIQUE: Portable AP view of the chest. COMPARISON: Radiograph of the chest from 05/08/2011. FINDINGS: Medical Devices: None. Heart and Mediastinum: The cardiomediastinal contours are unchanged andwithin normal limits. Lungs and Pleura: The lungs are clear. No pneumothorax. Bones and Soft tissues: Nothing acute. IMPRESSION: No findings to suggest postprocedural complication. Report Verified by: Ramez Hardnig MD at 10/31/2016 3:52 PM EDT us Guerita Wilson MD IMG DIAGNOSTIC IMAGING ORDER CON Final Result documented in this encounter Visit Diagnoses Not on filedocumented in this encounter Care Teams Pulp Roller Relationship Specialty Start Date End Date Marlo Rubio MD PCP - General Family Medicine 10/09/16 documented as of this encounter
--- OUTSIDE RECORDS SUMMARY | 2024-03-14 18:26 | XMS_ITS | Encounter Summary ---
Author Organization [facility] Address [address] [place] [address] Care Team Providers Care Animal Rescuer Name Role Phone Camila Jasso MD Primary Care Provider [phone] Source Comments This information has been disclosed [...] release of HIV test results or diagnoses. [id number] Health Encounter Details Date Type Department Care Team (Late st Contact Info) Description 07/20/2009 - 07/20/2009 11:59 PM EDT Hospital Encounter [facility] [address] [place] [phone] Social History Tobacco Use Types Packs/Day Years [...] Name Priority Date/Time Associated Diagnosis Comments IR INJ CHOLANGIOGRAPHY VIA EXISTING CATHETER Routine 07/20/2009 10:04 AM EDT IR CHOLANGIOGRAM VIA EXISTING T-TUBE S-I Routine 07/20/2009 10:04 AM EDT documented in this encounter Results * IR Cholangiogram via exist T-tube S-I (07/20/2009 10:04 AM EDT) Anatomical Region Laterality Modality Abdomen, Vascular X-Ray Angiogra phy 07/20/2009 10:0 4 AM EDT Narrative 07/20/2009 2:48 PM EDT ? [facility] Patient: [place] CHILDRESS : ? 1980 Accn#: ?? [id number] Interventional Radiology Exam Date/Time 07/20/2009 10:04 EDT 07/20/2009 10:04 EDT Reason for Exam: (ANG-CHOLANGIO T-TUBE S&I) ??BILIARY OBSTRUCTION (ANG-INJ CHOLANGIO EXIST CATH) ??BILIARY OBSTRUCTION Report Procedures: 1) CHOLANGIOGRAM 2) BILIARY CATHETER REMOVAL Performed on 07/20/2009. Indications: History of biliary atresia, biliary obstruction, biliary drainage catheter placement. Comparison: 06/22/2009. Operators: Drs. Nielsen, Odette, and Andrea. Procedure and Findings: The procedure was performed in the VIR suite following informed consent. The patient received preprocedure IV antibiotics. ??The patient received 10 minutes of IV moderate sedation under the supervision of the radiologist. 1% lidocaine local anesthesia was used. ??With the patient in a supine position, the upper abdomen and existing biliary drainage catheter were prepped and draped in the usual sterile fashion. Contrast was injected through the existing biliary drainage catheter in the left hepatic lobe and a cholangiogram was performed. ??The catheter was in an appropriate position. A 0.035 inch guidewire was passed through the existing biliary catheter using fluoroscopic guidance. ??The catheter was withdrawn and a 8 -F sheath was placed over the guidewire. ??A cholangiogram through the sheath was performed, which demonstrated resolution of the previously dilated biliary stricture in the lateral segment of the left hepatic lobe. ??Contrast reached the small bowel. The biliary catheter was removed and the site was dressed in the usual fashion. There were no immediate complications. Total fluoroscopy time was 1.4 minutes. IMPRESSION: Resolution of the previously dilated biliary stricture in the left hepatic lobe and successful removal of the existing biliary drainage catheter. VERIFIED REPORT Dictated: 07/20/2009 2:34 pm ?SUSANA NOWAK M.D. Signed (Electronic Signature): ??CHRISTOPHER NIELSEN M.D. 07/27/09 4:52 Resident: ??SUSANA NOWAK M.D. Technologist: JULY CHIU Procedure Note Christopher Nielsen MD - 10/25/2011 [facility] Patient: [place] CHILDRESS : 1980 Accn#: [id number] Interventional Radiology Exam Date/Time 07/20/2009 10:04 EDT 07/20/2009 10:04 EDT Reason for Exam: (ANG-CHOLANGIO T-TUBE S&I) BILIARY OBSTRUCTION (ANG-INJ CHOLANGIO EXIST CATH) BILIARY OBSTRUCTION Report Procedures: 1) CHOLANGIOGRAM 2) BILIARY CATHETER REMOVAL Performed on 07/20/2009. Indications: History of biliary atresia, biliary obstruction, biliary drainage catheter placement. Comparison: 06/22/2009. Operators: Odette Mahoney, and Andrea. Procedure and Findings: The procedure was performed in the VIR suite following informed consent. The patient received preprocedure IV antibiotics. The patient received 10 minutes of IV moderate sedation under the supervision of the radiologist. 1% lidocaine local anesthesia was used. With the patient in a supine position, the upper abdomen and existing biliary drainage catheter were prepped and draped in the usual sterile fashion. Contrast was injected through the existing biliary drainage catheter in the left hepatic lobe and a cholangiogram was performed. The catheter was in an appropriate position. A 0.035 inch guidewire was passed through the existing biliary catheter using fluoroscopic guidance. The catheter was withdrawn and a 8 -F sheath was placed over the guidewire. A cholangiogram through the sheath was performed, which demonstrated resolution of the previously dilated biliary stricture in the lateral segment of the left hepatic lobe. Contrast reached the small bowel. The biliary catheter was removed and the site was dressed in the usual fashion. There were no immediate complications. Total fluoroscopy time was 1.4 minutes. IMPRESSION: Resolution of the previously dilated biliary stricture in the left hepatic lobe and successful removal of the existing biliary drainage catheter. VERIFIED REPORT Dictated: 07/20/2009 2:34 pm SUSANA NOWAK M.D. Signed (Electronic Signature): CHRISTOPHER NIELSEN M.D. 07/27/09 4:52 Resident: SUSANA NOWAK M.D. Technologist: JULY CHIU us Christopher Nielsen MD IMG IR ORDERABLES Final Result * IR inj Cholang existing cath (07/20/2009 10:04 AM EDT) Anatomical Region Laterality Modality Abdomen X-Ray Angiograph y 07/20/2009 10:0 4 AM EDT Narrative 07/20/2009 2:48 PM EDT ? [facility] Patient: [place] CHILDRESS : ? 1980 Accn#: ?? [id number] Interventional Radiology Exam Date/Time 07/20/2009 10:04 EDT 07/20/2009 10:04 EDT Reason for Exam: (ANG-CHOLANGIO T-TUBE S&I) ??BILIARY OBSTRUCTION (ANG-INJ CHOLANGIO EXIST CATH) ??BILIARY OBSTRUCTION Report Procedures: 1) CHOLANGIOGRAM 2) BILIARY CATHETER REMOVAL Performed on 07/20/2009. Indications: History of biliary atresia, biliary obstruction, biliary drainage catheter placement. Comparison: 06/22/2009. Operators: Drs. Nielsen, Odette, and Andrea. Procedure and Findings: The procedure was performed in the VIR suite following informed consent. The patient received preprocedure IV antibiotics. ??The patient received 10 minutes of IV moderate sedation under the supervision of the radiologist. 1% lidocaine local anesthesia was used. ??With the patient in a supine position, the upper abdomen and existing biliary drainage catheter were prepped and draped in the usual sterile fashion. Contrast was injected through the existing biliary drainage catheter in the left hepatic lobe and a cholangiogram was performed. ??The catheter was in an appropriate position. A 0.035 inch guidewire was passed through the existing biliary catheter using fluoroscopic guidance. ??The catheter was withdrawn and a 8 -F sheath was placed over the guidewire. ??A cholangiogram through the sheath was performed, which demonstrated resolution of the previously dilated biliary stricture in the lateral segment of the left hepatic lobe. ??Contrast reached the small bowel. The biliary catheter was removed and the site was dressed in the usual fashion. There were no immediate complications. Total fluoroscopy time was 1.4 minutes. IMPRESSION: Resolution of the previously dilated biliary stricture in the left hepatic lobe and successful removal of the existing biliary drainage catheter. VERIFIED REPORT Dictated: 07/20/2009 2:34 pm ?SUSANA NWOAK M.D. Signed (Electronic Signature): ??CHRISTOPHER NIELSEN M.D. 07/27/09 4:52 Resident: ??SUSANA NOWAK M.D. Technologist: JULY CHIU Procedure Note Christopher Nielsen MD - 10/25/2011 [facility] Patient: [place] CHILDRESS : 1980 [facility]: [id number] Accn#: [id number] Interventional Radiology Exam Date/Time 07/20/2009 10:04 EDT 07/20/2009 10:04 EDT Reason for Exam: (ANG-CHOLANGIO T-TUBE S&I) BILIARY OBSTRUCTION (ANG-INJ CHOLANGIO EXIST CATH) BILIARY OBSTRUCTION Report Procedures: 1) CHOLANGIOGRAM 2) BILIARY CATHETER REMOVAL Performed on 07/20/2009. Indications: History of biliary atresia, biliary obstruction, biliary drainage catheter placement. Comparison: 06/22/2009. Operators: Drs. Nielsen, Odette, and Andrea. Procedure and Findings: The procedure was performed in the VIR suite following informed consent. The patient received preprocedure IV antibiotics. The patient received 10 minutes of IV moderate sedation under the supervision of the radiologist. 1% lidocaine local anesthesia was used. With the patient in a supine position, the upper abdomen and existing biliary drainage catheter were prepped and draped in the usual sterile fashion. Contrast was injected through the existing biliary drainage catheter in the left hepatic lobe and a cholangiogram was performed. The catheter was in an appropriate position. A 0.035 inch guidewire was passed through the existing biliary catheter using fluoroscopic guidance. The catheter was withdrawn and a 8 -F sheath was placed over the guidewire. A cholangiogram through the sheath was performed, which demonstrated resolution of the previously dilated biliary stricture in the lateral segment of the left hepatic lobe. Contrast reached the small bowel. The biliary catheter was removed and the site was dressed in the usual fashion. There were no immediate complications. Total fluoroscopy time was 1.4 minutes. IMPRESSION: Resolution of the previously dilated biliary stricture in the left hepatic lobe and successful removal of the existing biliary drainage catheter. VERIFIED REPORT Dictated: 07/20/2009 2:34 pm SUSANA NOWAK M.D. Signed (Electronic Signature): CHRISTOPHER NIELSEN M.D. 07/27/09 4:52 Resident: SUSANA NOWAK M.D. Technologist: JULY CHIU us Christopher Nielsen MD IMDestiny IR ORDERABLES Final Result documented in this encounter Visit Diagnoses Not on filedocumented in this encounter Care Teams Animal Rescuer Relationship Specialty Start Date End Date Camila Jasso MD [address] [place] [address] PCP - General 12/03/06 10/08/16 documented as of this encounter
--- OUTSIDE RECORDS SUMMARY | 2024-03-14 18:26 | XMS_ITS | Encounter Summary ---
Author Organization [facility] Address [address] [place] [address] Care Team Providers Care Associate Sales Manager Name Role Phone Marlo Rubio MD Primary [...] release of HIV test results or diagnoses. [id number] Health Encounter Details Date Type Department Care Team (Late st Contact Info) Description 10/30/2016 Telephone [facility] Interventional Radiology [address] [place] [phone] Eric Palomo Social History Tobacco Use Types Packs/Day Years [...] encounter Miscellaneous Notes * Telephone Encounter - RT Rafaela - 10/30/2016 7:58 AM EDT Called patient to set up celiac block per email received.called 2 times left message 10/29 10/30 called left message again .. documented in this encounter Plan of Treatment Not on file documented as of this encounter Visit Diagnoses Not on filedocumented in this encounter Care Teams Associate Sales Manager Relationship Specialty Start Date End Date Marlo Rubio MD PCP - General Family Medicine 10/09/16 documented as of this encounter
--- OUTSIDE RECORDS SUMMARY | 2024-03-14 18:26 | XMS_ITS | Encounter Summary ---
Author Organization [facility] Address [address] [place] [id number] Care Team Providers Care Educational Adviser Name Role Phone Marlo Rubio MD Primary Care Provider Fatamta hutchison Source Comments This information has been [...] release of HIV test results or diagnoses. [id number] Reason for Visit * Reason Comments Pre-op Exam generalized abdomina l pain, celiac artery stenosis Encounter Details Date Type Department Care Team (Late st Contact Info) Description 11/04/2016 9:30 AM EDT Office Visit [facility] [address] [place] [phone] Romana Hurley CNP [address] [place] [phone] Generalized abdominal pain (Primary Dx); Celiac artery stenosis (CMS-HCC); Congenital biliary atresia Social History Tobacco Use Types Packs/Day Years [...] Sign Reading Time Taken Comments Blood Pressure 120/82 11/04/2016 9:32 AM EDT Pulse 70 11/04/2016 9:32 AM EDT Temperature 36.8 ??C (98.2 ??F) 11/04/2016 9:32 AM ED T Respiratory Rate - - Oxygen Saturation 100% 11/04/2016 9:32 AM EDT Inhaled Oxygen Concentration 100% 11/04/2016 9 :32 AM EDT Weight 67.1 kg (148 lb) 11/04/2016 9:32 AM EDT Height 165.1 cm (5' 5 ) 11/04/2016 9:32 AM EDT Body Mass Index 24.63 11/04/2016 9:32 AM EDT documented in this encounter Patient Instructions * Patient Instructions* Romana Figueroa, PIG MACHINE OPERATOR HELPER - 11/04/2016 9:49 AM EDT Pre-Procedure Instructions We???re pleased that you have chosen [facility] for your upcoming procedure. The staffserving you is professionally trained to provide the highest quality care. We encourage you to ask questions and to let the staff know your special needs. We want your visit to be as comfortable as possible. Your procedure is scheduled on 11/07/16 at 7:30 AM. Please arrive at 5:30 AM at: [facility] second floor of the [facility] ??? DO NOT EAT OR DRINK ANYTHING (including gum, mints, water, etc.) after midnight the night before your procedure. You may brush your teeth and gargle on the morning of surgery, but do not swallow any water. You may take the following medications with a small sip of water: topamax ??? Please make transportation arrangements and bring a responsible adult to accompany you home davonte with you for 24 hours. ??? Leave valuables (money, jewelry, credit cards) at home. If you wear glasses or contacts, bring a case for safekeeping. ??? Wear casual, loose fitting, and comfortable clothing. A gown will be provided. If you are staying overnight, bring a small overnight bag. (Storage space is limited.) ??? Please remove all makeup, jewelry, body piercings, powder, perfume, and nail upper sorbian before you arrive. ??? Bring a list of your medications and dose including herbal and bxxy-[id number] medications. Donot bring any pills or medications to the hospital. (Exception: transplant patients.) ??? Bring a photo ID and your insurance card so we can bill your insurance company directly. ??? Please do not bring any children under the age of 14 to the hospital. ??? Do not shave in the area of the surgery for 2 days prior to surgery. If needed, a trained staffmember will clip the area immediately before your surgery. ??? Discuss discontinuing herbal medications with your doctor before surgery. ??? Please shower at home the evening before and the morning of surgery using an antiseptic agent, if provided, or soap and water. ??? If you suspect that you have an infection prior to surgery, contact your doctor and surgeon prior to surgery. Also tell the pre-surgery nurse on the day of surgery. Additional instructions:Stop Vitamins, Supplements, Ibuprofen, Advil, Aleve, Aspirin 1 week prior to surgery. May take Tylenol for pain Contact information: [facility], Friday - Friday 8:30 am - 5:00 pm [facility], - Friday 8:30 am - 5:00 pm documented in this encounter H&P Notes * Yovani Alcantar MD - 11/04/2016 8:52 AM EDT ANESTHESIOLOGY CONSULTATION AND PRE-OPERATIVE HISTORY AND PHYSICAL Subjective: [facility] Attending Physician: Yovani Alcantar MD PRODUCTION CONTROL SPECIALIST SHORE WORKING SUPERVISOR / PA: Romana Figueroa CNP Date of Surgery: 11/07/16 Surgeon: Dr. Parker Diagnosis: generalized abdominal pain, celiac artery stenosis Procedure: Exploratory laparotomy, median arcuate ligament division Patient ID: Gardenia Childress is a 36 y.o. female. Patient is being seen today at the request of Dr. Parker to render an opinion on perioperative risk optimization and to coordinate medical care as necessary prior to the following procedure: Exploratory laparotomy, median arcuate ligament division . Chief Complaint Patient presents with ??? Pre-op Exam generalized abdominal pain, celiac artery stenosis History of Present Illness: 36 yo woman with PMH of migraines with generalized abdominal pain, celiac artery stenosis. She has a h/o biliary atresia s/p Kasai. She presented to ED 09/26/16 with abd pain. She has chronic abd pain but pain 09/[address] scan 10/09/16 showed high-grade celiac stenosis. She had celiac block last week and that pain has subsided. However, she has new pain post- celiac block. She reports current pain in lungs since and it hurts to cough and take deep breaths. She reports one episode of vomiting post celiac block. She denies weight loss and fevers/chills.She is to undergo exploratory laparotomy, median arcuate ligament division and is seen today in pre-op. Chronic Medical Conditions, Severity, Optimization: See below Cummings Activity Scale: 8 - Moving heavy furniture; rapidly climbing stairs; carrying 20 pounds up stairs. Medical History: Past Medical History Diagnosis Date ??? Biliary stenosis ??? 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 Migraine ??? Anemia gestational ??? Thyroid disease nodule Surgical History: Past Surgical History Procedure Laterality Date ??? Cholecystectomy ??? Appendectomy Family History: Family History Problem Relation Age of Onset ??? Diabetes Mother ??? Heart disease Mother ??? COPD Mother ??? Stroke Mother ??? Cancer Sister ??? Diabetes Sister Social History: Social History Social History ??? Marital Status: Spouse Name: N/A ??? Number of Children: N/A ??? Years of Education: N/A Occupational History ??? Not on file. Social History Main Topics ??? Smoking status: Never Smoker ??? Smokeless tobacco: Not on file ??? Alcohol Use: No ??? Drug Use: No ??? Sexual Activity: Not on file Other Topics Concern ??? Not on file Social History Narrative Allergies: Allergies Allergen Reactions ??? Aspirin Other (See Comments) Due to biliary atresia ??? Morphine Nausea And Vomiting Medications: Prior to Admission medications taking for visit date 11/04/16 Medication Sig Taking? Authorizing Provider dicyclomine (BENTYL) 20 mg tablet Take 20 mg by mouth 4 times a day with meals and at bedtime. Yes Historical Provider, SUMAtriptan (IMITREX) 25 MG tablet Take 25 mg by mouth once as needed for Migraine. Yes Historical Provider, topiramate (TOPAMAX) 25 MG sprinkle capsule Take 25 mg by mouth 2 times a day. Yes Historical Provider, omeprazole (PRILOSEC OTC) 20 MG tablet Take 1 tablet (20 mg total) by mouth daily. Neris López MD Review of Systems Constitutional: Positive for chills, activity change and fatigue. Negative for fever, weight loss, weight gain and appetite change. Chronic fatigue- nothing new Chronic chills HENT: Positive for dental problem. Negative for congestion, ear pain, hearing loss, mouth sores, postnasal drip, rhinorrhea, sinus pressure, sneezing, sore throat, tinnitus and trouble swallowing. Several broken teeth Seasonal allergies Eyes: Negative for pain and visual disturbance. Respiratory: Positive for chest tightness and shortness of breath. Negative for apnea, choking and wheezing. Chest tightness with cardio work-out videos SOB with working out Cardiovascular: Negative for chest pain, palpitations and leg swelling. Gastrointestinal: Positive for vomiting and abdominal pain. Negative for heartburn, nausea, diarrhea, constipation, blood in stool and bloating. Genitourinary: Positive for hematuria. Negative for dysuria, urgency, frequency, decreased urine volume, difficulty urinating and nocturia. ?hemaia- once, could have been residual menses Musculoskeletal: Negative for back pain, arthralgias, gait problem, neck pain and neck stiffness. Skin: Negative for rash and wound. Neurological: Positive for headaches. Negative for dizziness, tremors, seizures, syncope, weakness,light-headedness and numbness. +migraines Hematological: Does not bruise/bleed easily. Objective: Blood pressure 120/82, pulse 70, temperature 98.2 ??F (36.8 ??C), temperature source Oral, height 5' 5 (1.651 m), weight 148 lb (67.132 kg), last menstrual period 10/28/2016, SpO2 100 %. Physical Exam Constitutional: She is oriented to person, place, and time. Vital signs are normal. She appears well-developed and well-nourished. She is active. Non-toxic appearance. She does not have a sickly appearance. She does not appear ill. No distress. Body mass index is 24.63 kg/(m^2). and young daughter present HENT: Head: Normocephalic and atraumatic. Mouth/Throat: Uvula is midline, oropharynx is clear and moist and mucous membranes are normal. Abnormal dentition. Eyes: Conjunctivae, EOM and lids are normal. Pupils are equal, round, and reactive to light. Neck: Trachea normal and normal range of motion. Neck supple. Carotid bruit is not present. Normal range of motion present. No thyroid mass and no thyromegaly present. Cardiovascular: Normal rate, regular rhythm, intact distal pulses and normal pulses. Pulses: Radial pulses are 2+ on the right side, and 2+ on the left side. Posterior tibial pulses are 2+ on the right side, and 2+ on the left side. Pulmonary/Chest: Effort normal and breath sounds normal. Abdominal: Soft. Bowel sounds are normal. There is no tenderness. Musculoskeletal: strength 5/5 BUE/BLE Lymphadenopathy: Head (right side): No submental, no submandibular, no tonsillar, no preauricular, no posterior auricular and no occipital adenopathy present. Head (left side): No submental, no submandibular, no tonsillar, no preauricular, no posterior auricular and no occipital adenopathy present. Neurological: She is alert and oriented to person, place, and time. She has normal strength. No cranial nerve deficit or sensory deficit. GCS eye subscore is 4. GCS verbal subscore is 5. GCS motor subscore is 6. Skin: Skin is warm and dry. She is not diaphoretic. No cyanosis. No pallor. Psychiatric: She has a normal mood and affect. Her speech is normal and behavior is normal. Judgment and thought content normal. Cognition and memory are normal. Airway: Mallampati II (hard and soft palate, upper portion of tonsils anduvula visible), Thyromental distance 3 finger breadths, opening 3 finger breadths. Multiple broken teeth. FROM of neck. Lab Review: Lab Results Component Value Date WBC 7.9 09/26/2016 HGB 13.8 09/26/2016 HCT 41.6 09/26/2016 MCH 28.2 09/26/2016 PLT 269 09/26/2016 GLUCOSE 81 09/26/2016 CREATININE 0.79 09/26/2016 NA 140 09/26/2016 K 4.1 09/26/2016 CL 109 09/26/2016 CO2 24 09/26/2016 BILITOT 0.5 09/26/2016 PROT 7.6 09/26/2016 AST 24 09/26/2016 ALT 14 09/26/2016 ALKPHOS 63 09/26/2016 PROTIME 13.5 10/31/2016 PROTIME 10.2 06/07/2009 Study Results: CT 10/14/16: FINDINGS: Changes of choledochojejunostomy are noted. There is mild left intrahepatic biliary dilation with pneumobilia, unchanged. The right bile ducts are not dilated. The liver is normal in attenuation with no focal lesions. The portal vein and hepatic veins are patent. There is a high-grade stenosis of the celiac artery from arcuate ligament compression, similar to prior. The spleen, pancreas, kidneys, and adrenal glands are normal in appearance. The gallbladder is absent. No abnormalities of the gastrointestinal tract are evident. The lung bases are clear. There are no lytic or blastic bone lesions. IMPRESSION: 1. Stable mild left biliary dilation and pneumobilia, post remote hepaticojejunostomy. 2. High-grade celiac stenosis. Stress 2009: INTERPRETATION- EXERCISE CAPACITY ADJUSTED FOR AGE - GOOD. ARRYTHMIAS - NONE. CONCLUSION- NORMAL ECG RESPONSE. Holter 2009: IMPRESSION- Sinus rhythm with heart rate between 62-122, aveage 88. 89 PVC'S. No VT. 2 PAC'S. No SVT. ASA Physical Status: 2 Assessment and Recommendations: 36 yo woman with generalized abdominal pain, celiac artery stenosis seen preoperatively to exploratory laparotomy, median arcuate ligament division. Concurrent medical conditions include: 1. Cardiac risk/functional status: denies CAD/CHF. Stress 2009 normal. Holter 2008 for palpitationswith SR. Reports it hurts to lie flat, but she can sleep on her side since block. Cummings activity score 8; she was doing work out videos/classes 6x/week prior to 09/2016 with worsening abd pain. She reports chest tightness and GAMING with this cardio activity. She reports she was doing activity for abouta month and then the symptoms began. She consulted with PCP who told her to stop cardio part of exercise, no work-up. She also reports increased migraines with cardio activity. Physical exam benign. 2. Generalized abdominal pain, celiac artery stenosis: to undergo exploratory laparotomy, median arcuate ligament division. Pt was taking PPI prescribed in ED, has now run out. 3. Migraines: on Topamax and Imitrex. Continue perioperatively. Last migraine a couple months ago. 4. Biliary atresia: s/p Kasai. Today we obtained T&S, CBC w/diff, renal, hepatic and coags. Pre-procedural instructions given, patient verbalized understanding. Romana Figueroa, PIG MACHINE OPERATOR HELPER Attending Addendum: I have seen and examined the patient and amended the note above. Briefly, her chest pain actually sounds like upper abdominal pain/epigastric pain. I do not think it is cardiac in origin. Other activity is not hindered. Anesthetic plan: I would recommend GETA, PIVs, large bore PIV access vs. CVC (due to marginal PIV access), arterial line, epidural for post op analgesia, ICU post op. This plan was discussed with Dr. Deborah Parker. Note, the patient was counseled on epidural and was a little unsure at the time of consultation. I told her to think about it, discuss with her family, and we could make a decision prior to OR. I discussed alternatives, benefits, and risks including but not limited to , cardiac arrest, NH, CVA, transfusion, and transfusion-associated risks. They verbalized understanding and agreed to the plan above. I have conveyed my recommendations for perioperative management of this patient???s medical problems through the shared electronic medical record. Yovani Alcantar MD Anesthesiology documented in this encounter Plan of Treatment Not on file documented as of this encounter Procedures Procedure Name Priority Date/Time Associated Diagnosis Comments HEPATIC FUNCTION PANEL Routine 11/04/2016 10:38 AM EDT Generalized abdominal pain Celiac artery stenosis (CMS-HCC) RENAL FUNCTION PANEL W/EGFR Routine 11/04/2016 10:38 AM EDT Generalized abdominal pain Celiac artery stenosis (CMS-HCC) ABO/RH Routine 11/04/2016 10:38 AM EDT Generalized abdominal pain Celiac artery stenosis (CMS-HCC) DIFFERENTIAL Routine 11/04/2016 10:38 AM EDT Generalized abdominal pain Celiac artery stenosis (CMS-HCC) APTT Routine 11/04/2016 10:38 AM EDT Generalized abdominal pain Celiac artery stenosis (CMS-HCC) PROTIME-INR Routine 11/04/2016 10:38 AM EDT Generalized abdominal pain Celiac artery stenosis (CMS-HCC) CBC Routine 11/04/2016 10:38 AM EDT Generalized abdominal pain Celiac artery stenosis (CMS-HCC) ANTIBODY SCREEN Routine 11/04/2016 10:38 AM EDT Generalized abdominal pain Celiac artery stenosis (CMS-HCC) documented in this encounter Results * APTT, No Anticoagulant (11/04/2016 10:38 AM EDT) aPTT 31.1 25.5 - 35.0 seconds 11/04/2016 11:08 AM EDT [facility] Plasma specimen (specimen) 11/04/2016 10:38 AM EDT 11/04/2016 10:49 AM EDT us Deborah Parker MD LAB BLOOD ORDERABLES Final Resu lt [facility] [address] [place] [address], [facility] * Protime-INR (11/04/2016 10:38 AM EDT) Protime 13.8 11.6 - 14.4 seconds 11/04/2016 11:07 AM EDT [facility] INR 1.0 0.9 - 1.1 11/04/2016 11:07 AM EDT [facility] Comment: RECOMMENDED THERAPEUTIC RANGES USING INR : ?Stable oral anticoagulant therapy: ? 2.0 - 3.0 ?Mechanical prosthetic heart valve: ? 2.5 - 3.5 ?Recurrent acute myocardial infarction: ? 2.5 - 3.5 Plasma specimen (specimen) 11/04/2016 10:38 AM EDT 11/04/2016 10:49 AM EDT us Deborah Parker MD LAB BLOOD ORDERABLES Final Resu lt [facility] [address] [facility] [place] [place] [address], [facility] * Differential (11/04/2016 10:38 AM EDT) Neutrophils Relative 58.8 40.0 - 80.0 % 11/04/2016 10:57 AM EDT [facility] Lymphocytes Relative 28.2 15.0 - 45.0 % 11/04/2016 10:57 AM EDT [facility] Monocytes Relative 6.8 0.0 - 12.0 % 11/04/2016 10:57 AM EDT [facility] Eosinophils Relative 5.8 0.0 - 8.0 % 11/04/2016 10:57 AM EDT [facility] Basophils Relative 0.4 0.0 - 1.0 % 11/04/2016 10:57 AM EDT [facility] nRBC 0 0 - 0 /100 WBC 11/04/2016 10:57 AM EDT [facility] Neutrophils Absolute 3,940 1,500 - 7,800 /uL 11/04/2016 10:57 AM EDT [facility] Lymphocytes Absolute 1,889 850 - 3,900 /uL 11/04/2016 10:57 AM EDT [facility] Monocytes Absolute 456 200 - 950 /uL 11/04/2016 10:57 AM EDT [facility] Eosinophils Absolute 389 15 - 500 /uL 11/04/2016 10:57 AM EDT [facility] Basophils Absolute 27 0 - 200 /uL 11/04/2016 10:57 AM EDT [facility] Whole blood specimen (specimen) 11/04/2016 10:38 AM EDT 11/04/2016 10:49 AM EDT us Deborah Parker MD LAB BLOOD ORDERABLES Final Resu lt [facility] [address] * (ABNORMAL) CBC (11/04/2016 10:38 AM EDT) WBC 6.7 3.8 - 10.8 10E3/uL 11/04/2016 10:57 AM EDT [facility] RBC 4.18 3.80 - 5.10 10E6/uL 11/04/2016 10:57 AM EDT [facility] Hemoglobin 12.1 11.7 - 15.5 g/dL 11/04/2016 10:57 AM EDT [facility] Hematocrit 34.9(L) 35.0 - 45.0 % 11/04/2016 10:57 AM EDT [facility] MCV 83.5 80.0 - 100.0 fL 11/04/2016 10:57 AM EDT [facility] MCH 29.0 27.0 - 33.0 pg 11/04/2016 10:57 AM EDT [facility] MCHC 34.7 32.0 - 36.0 g/dL 11/04/2016 10:57 AM EDT [facility] RDW 13.6 11.0 - 15.0 % 11/04/2016 10:57 AM EDT [facility] Platelets 331 140 - 400 10E3/uL 11/04/2016 10:57 AM EDT [facility] MPV 7.6 7.5 - 11.5 fL 11/04/2016 10:57 AM EDT [facility] Whole blood specimen (specimen) 11/04/2016 10:38 AM EDT 11/04/2016 10:49 AM EDT us Deborah Parker MD LAB BLOOD ORDERABLES Final Resu lt Performing Organization Address City/[facility]/ZIP Co de Phone Number [facility] [address] * Antibody screen (11/04/2016 10:38 AM EDT) Antibody Screen Negative 11/04/2016 1:20 PM EDT [facility] Blood specimen (specimen) 11/04/2016 10:38 AM EDT 11/04/2016 10:56 AM EDT Narrative [facility] - 11/04/2016 1:25 PM EDT Testing performed by [facility] Transfusion Service Deborah Parker MD BLOOD BANK TEST ORDERABLES Antonia l Result Performing Organization Address City/[facility] Co de Phone Number [facility] [address] * ABO/Rh (11/04/2016 10:38 AM EDT) ABO Grouping O 11/04/2016 1:20 PM EDT [facility] Rh Type Positive 11/04/2016 1:20 PM EDT [facility] Blood specimen (specimen) 11/04/2016 10:38 AM EDT 11/04/2016 10:56 AM EDT us Deborah Parker MD BLOOD BANK TEST ORDERABLES Antonia l Result Performing Organization Address [facility] Co de Phone Number [facility] [address] [place] [address] * (ABNORMAL) Renal Function Panel w/EGFR (11/04/2016 10:38 AM EDT) Pathologist [facility] Sodium 142 133 - 146 mmol/L 11/04/2016 11:20 AM EDT [facility] Potassium 3.8 3.5 - 5.3 mmol/L 11/04/2016 11:20 AM EDT [facility] Chloride 111(H) 98 - 110 mmol/L 11/04/2016 11:20 AM EDT [facility] CO2 24 21 - 33 mmol/L 11/04/2016 11:20 AM EDT [facility] Anion Gap 7 3 - 16 mmol/L 11/04/2016 11:20 AM EDT [facility] BUN 8 7 - 25 mg/dL 11/04/2016 11:20 AM EDT [facility] Creatinine 0.73 0.60 - 1.30 mg/dL 11/04/2016 11:20 AM EDT [facility] Glucose 71 70 - 100 mg/dL 11/04/2016 11:20 AM EDT [facility] Calcium 9.0 8.6 - 10.3 mg/dL 11/04/2016 11:20 AM EDT [facility] Phosphorus 3.4 2.1 - 4.7 mg/dL 11/04/2016 11:20 AM EDT [facility] Albumin 3.8 3.5 - 5.7 g/dL 11/04/2016 11:20 AM EDT [facility] Osmolality, Calculated 291 278 - 305 mOsm/kg 11/04/2016 11:20 AM EDT [facility] eGFR AA CKD-EPI >90 See note. 7 11:20 AM EDT [facility] eGFR NONAA CKD-EPI >90 See note. 11/04/2016 11:20 AM EDT [facility] Plasma specimen (specimen) 11/04/2016 10:38 AM EDT 11/04/2016 10:49 AM EDT Narrative [facility] - 11/04/2016 11:20 AM EDT As of 06/20/2015 the estimated GFR is calculated from serum creatinine using the Chronic Kidney Disease Epidemiology Collaboration (CKD-EPI) equation in patients 18 years and older. ??The reference range is >60 mL/min/1.73m2. ??eGFR values greater than 90 will be reported as >90mL/min/1.73m2. Reference: Marisol , Jame LA, Ben CH, Singh YL, Marcello AF, 3rd, Bo HI, et. al. A new equation to estimate glomerular filtration rate. ??[employer] Med. 2009:150(9):604-12 us Deborah Parker MD LAB BLOOD ORDERABLES Final Resu lt [facility] [address] [facility] [place] [address], [facility] * Hepatic Function Panel (11/04/2016 10:38 AM EDT) Total Bilirubin 0.3 0.0 - 1.5 mg/dL 11/04/2016 11:20 AM EDT [facility] Bilirubin, Direct 0.04 0.00 - 0.40 mg/dL 11/04/2016 11:20 AM EDT [facility] AST 14 13 - 39 U/L 11/04/2016 11:20 AM EDT [facility] ALT 10 7 - 52 U/L 11/04/2016 11:20 AM EDT [facility] Alkaline Phosphatase 59 36 - 125 U/L 11/04/2016 11:20 AM EDT [facility] Total Protein 6.8 6.4 - 8.9 g/dL 11/04/2016 11:20 AM EDT [facility] Albumin 3.8 3.5 - 5.7 g/dL 11/04/2016 11:20 AM EDT [facility] Bilirubin, Indirect 0.26 0.00 - 1.10 mg/dL 11/04/2016 11:20 AM EDT [facility] Plasma specimen (specimen) 11/04/2016 10:38 AM EDT 11/04/2016 10:49 AM EDT us Deborah Parker MD LAB BLOOD ORDERABLES Final Resu lt [facility] [address] [place] [address], [facility] documented in this encounter Visit Diagnoses Diagnosis Generalized abdominal pain- Primary Abdominal pain, generalized Celiac artery stenosis (CMS-HCC) Stricture of artery Congenital biliary atresia documented in this encounter Care Teams Educational Adviser Relationship Specialty Start Date End Date Marlo Rubio MD PCP - General Family Medicine 10/09/16 documented as of this encounter
--- OUTSIDE RECORDS SUMMARY | 2024-03-14 18:26 | XMS_ITS | Encounter Summary ---
Author Organization [facility] Address [address] [place] [id number] Care Team Providers Care Final Coat Sprayer Name Role Phone Marlo Rubio MD Primary [...] release of HIV test results or diagnoses. [id number] Health Encounter Details Date Type Department Care Team (Late st Contact Info) Description 10/25/2016 Telephone [facility] [address] [facility] [address] [place] [address] Deborah Parker MD [address] [facility] [address] [place] [place] [address] Social History Tobacco Use Types Packs/Day Years [...] encounter Miscellaneous Notes * Telephone Encounter - Chantal Duran - 10/25/2016 11:48 AM EDT Notified pt of surgery info/instructions. Pt verbalized understanding. documented in this encounter Plan of Treatment Not on file documented as of this encounter Visit Diagnoses Not on filedocumented in this encounter Care Teams Final Coat Sprayer Relationship Specialty Start Date End Date Marlo Rubio MD PCP - General Family Medicine 10/09/16 documented as of this encounter
--- OUTSIDE RECORDS SUMMARY | 2024-03-14 18:26 | XMS_ITS | Encounter Summary ---
Author Organization [facility] Address [address] [place] [id number] Care Team Providers Care Mess Attendant Crew Name Role Phone Camila Jasso MD Primary Care Provider [phone] Source Comments This information has been disclosed [...] release of HIV test results or diagnoses. [id number] Health Encounter Details Date Type Department Care Team (Latest Contact Info) Description 05/03/2009 - 04/20/2010 11:59 PM EST Hospital Encounter [facility] Hepatobiliary at [address] [phone] Aaron Rocha MD [address] [place] [phone] Discharge Disposition: Home or Self Care WITHOUT [...] on filedocumented in this encounter Care Teams Mess Attendant Crew Relationship Specialty Start Date End Date Camila Jasso MD [address] [place] [address] PCP - General 12/03/06 10/08/16 documented as of this encounter
--- OUTSIDE RECORDS SUMMARY | 2024-03-14 18:26 | XMS_ITS | Encounter Summary ---
Author Organization [facility] Address [address] [place] [address] Care Team Providers Care Edge Blacker Name Role Phone Marlo Rubio MD Primary [...] release of HIV test results or diagnoses. [id number] Health Reason for Visit * Auth/Cert Specialty Diagnoses / Procedures Referred By Amalia tuttle Referred To Contact Diagnoses Generalized abdominal pain Celiac artery stenosis (CMS-HCC) SDA 11/07 Generalized abdominal pain [R10.84] Celiac artery stenosis [I77.4] Procedures CASE REQUEST OPERATING ROOM GA DIAPHRAGM SURG PROC UNLISTED GA REVISION OF DIAPHRAGM GA RESECT DIAPHRAM,SIMPLE REPAIR EXPLORATORY LAPAROTOMY [facility] PERIOP [address] [place] [address] Phone: tel: Referral ID Status Reason Start Date Expiration Date Visits Re quested Visits Authorized [id number] 1 1 Encounter Details Date Type Department Care Team (Latest Contact Info) Description 11/07/2016 5:11 AM EDT - 11/10/2016 6:17 PM EDT Hospital Encounter [facility] 9CCP [address] [place] [address] Deborah Parker MD [address] [facility] [address] [place] [id number] Generalized abdominal pain; Celiac artery stenosis (CMS-HCC) Discharge Disposition: Home or Self Care WITHOUT [...] Sign Reading Time Taken Comments Blood Pressure 111/68 11/10/2016 4:45 PM EDT Pulse 79 11/10/2016 4:45 PM EDT Temperature 37.1 ??C (98.8 ??F) 11/10/2016 4:45 PM ED T Respiratory Rate 16 11/10/2016 4:45 PM EDT Oxygen Saturation 100% 11/10/2016 4:45 PM EDT Inhaled Oxygen Concentration 100% 11/10/2016 4 :45 PM EDT Weight 65.3 kg (144 lb) 11/07/2016 6:56 AM EDT Height 165.1 cm (5' 5 ) 11/07/2016 6:56 AM EDT Body Mass Index 23.96 11/07/2016 6:56 AM EDT documented in this encounter Discharge Summaries * Franklyn Patel MD - 11/10/2016 5:25 PM EDT Images from the original note were not included. [facility] Department of Surgery Inpatient Discharge Summary Patient: Gardenia Childress : 1980 CSN: [id number] Date of Admission: 11/07/2016 Date of Discharge: 11/10/2016 Attending Physician: Deborah Parker MD ADMISSION DIAGNOSES Past Medical History Diagnosis Date ??? Biliary stenosis ??? 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 Migraine ??? Anemia gestational ??? Thyroid disease nodule DISCHARGE DIAGNOSES Active Hospital Problems Diagnosis Date Noted ??? Status post exploratory laparotomy [Z98.890] 11/07/2016 Resolved Hospital Problems Diagnosis Date Noted Date Resolved No resolved problems to display. OPERATIONS/PROCEDURES PERFORMED Surgeries: 1^Von Case IDs Date Procedure Surgeon Location Status [id number] 11/07/16 Exploratory Laparotomy, Median Arcuate Ligament Division Deborah Parker MD OR [facility] CONSULTING SERVICES 1. None DISCHARGE MEDICATIONS Medication List TAKE these medications, which are NEW Quantity/Refills docusate sodium 100 MG capsule Commonly known as: COLACE Take 1 capsule (100 mg total) by mouth 2 times a day. Quantity: 60 capsule Refills: 0 oxyCODONE 10 mg Tab Commonly known as: ROXICODONE Take 1 tablet (10 mg total) by mouth every 4 hours as needed for up to 5 days. Quantity: 30 tablet Refills: 0 polyethylene glycol 17 gram packet Commonly known as: MIRALAX Take 17 g by mouth daily for 7 days. Quantity: 7 each Refills: 0 TAKE these medications, which you were ALREADY TAKING Quantity/Refills dicyclomine 20 mg tablet Commonly known as: BENTYL Take 20 mg by mouth 4 times a day with meals and at bedtime. Refills: 0 omeprazole 20 MG tablet Commonly known as: PRILOSEC OTC Take 1 tablet (20 mg total) by mouth daily. Quantity: 30 tablet Refills: 0 SUMAtriptan 25 MG tablet Commonly known as: IMITREX Take 25 mg by mouth once as needed for Migraine. Refills: 0 topiramate 25 MG sprinkle capsule Commonly known as: TOPAMAX Take 25 mg by mouth 2 times a day. Refills: 0 Where to Get Your Medications You can get these medications from any pharmacy Bring a paper prescription for each of these medications - docusate sodium 100 MG capsule - oxyCODONE 10 mg Tab - polyethylene glycol 17 gram packet REASON FOR ADMISSION Gardenia Childress is a 36 y.o. female with a PMH of biliary atresia s/p Kas[place] who initially presented as an outpatient with chronic epigastric pain. CT abdomen was notable for high-grade celiac stenosis concerning for median arcuate ligament syndrome. Prior to surgery, IR performed a celiac plexus nerve block which resulted in improvement of her symptoms. She was subsequently admitted for planned ex lap with median arcuate ligament release. HOSPITAL COURSE Gardenia Childress was admitted an underwent an ex lap, extensive adhesiolysis, release of the median arcuate ligament, and celiac plexus neurolysis. She tolerated the procedure well without complicationsand was transferred to the floor post-operatively. Her pain was controlled with an epidural, and she was transitioned to PO pain medications as her diet was advanced. At time of discharge, the patient was tolerating oral food and hydration, voiding spontaneously, had return of bowel function, was ambulating without difficulty, and pain was controlled on oral medications. The patient was determined to be suitable for discharge and the patient felt comfortable with that decision. Patient was discharged in good condition. CONDITION ON DISCHARGE Discharge Condition: good Discharge Physical Exam: BP 111/68 mmHg Pulse 79 Temp(Src) 98.8 ??F (37.1 ??C) (Oral) Resp 16 Ht 5' 5 (1.651 m) Wt 144 lb (65.318 kg) BMI 23.96 kg/m2 SpO2 100% LMP 10/31/2016 Gen: NAD, A+Ox3 CV: RRR, normal S1/S2, no m/r/g Resp: CTAB, no respiratory distress Abd: Soft, NT/ND Ext: Warm and well perfused Wound: incisions c/d/i, no erythema or drainage DISPOSITION Home independent FOLLOW-UP APPOINTMENTS Follow up in 1-2 weeks. Future Appointments Date Time Provider Department Center 11/20/2016 8:30 AM Aaron Rocha MD [facility] 11/20/2016 11:30 AM Deborah Parker MD [facility] PATIENT INSTRUCTIONS Activity: activity as tolerated Diet: regular diet Wound Care: keep wound clean and dry Department of Surgery Division of Transplantation [facility] [address] [place], [place] [address] [address] [facility] email: [email or web address] Deborah Parker MD, [facility] champion of sustainable design Director, Liver Transplantation and Hepatobiliary Surgery Post-Operative Patient Information Liver, Biliary and Pancreas Surgery When to call the office: ??? Fever (over 101??F), chills, night sweats ??? Excessive swelling of incision ??? You cannot urinate ??? Redness or bleeding near the incision ??? Increasing pain ??? Constipation FOLLOW - UP VISITS Your appointment should be two-three weeks from the time of your surgery. If you are doing well anddon???t have david and don???t need to see me, sometimes an email communication is just fine as well. If you leave with a drain in place, then you should be seen one week after surgery. If you haveany questions before that time please do not hesitate to call. I would ask that you email me with any concerns or questions. If you get discharged with a drain, Iwould like daily or every other day emails about the drain outputs. DRESSING A soft bandage has been placed over your incision. This will soak up any blood or fluid. You may remove the bandage in 24 hours. It is normal to see some swelling and/or discoloration around your incision. You may also notice some numbness at the incision, this may take several months to resolve. BATHING It is safe to take a shower in 24 hours, but NO tub bath until you check with us at your follow-up appointment. PAIN ??? You will be given a prescription for pain medication. It may be taken every four to six hours as needed for the first few days, after which time you should need less and less everyday. ??? Please take a stool softener with this. ??? You may place an ice bag on or near the incision if there is swelling. ACTIVITY ??? LIFTING: lift only light objects (10 to 20 lbs.) that you can manage easily for the first six weeks. If this is a second repair, then no heavy lifting for three months. When lifting, keep your back straight, and allow your legs to do most of the work. Do not start lifting a greater amount untilyou see us in follow-up. ??? DRIVING: Don???t drive while taking pain medication. You may begin driving when you feel comfortable. ??? EXERCISE: moderate exercise helps improve your circulation. You can walk as much as is comfortable. It is also okay to climb stairs, but take them slowly, one at a time. ??? WORK: If you have a desk job, you may be able to go back to work when you feel comfortable. If your job requires more physical activity, you may have to wait longer. This can be discussed in moredetail at your follow-up appointment. ??? SEX: you will be able to resume sexual relations as soon as it feels comfortable. DIET - You may resume your regular diet. ??? To avoid constipation that could be caused by your pain medication, follow these simple suggestions: ??? A) eat a high fiber diet; whole grain breads and cereals, raw fruit and vegetables, or cooked/dried fruits and vegetables. ??? B) drink plenty of liquids; water, fruit or vegetable juices. ??? C) exercise daily if possible. ??? D) be sensitive to your bowel function and answer the ???urge?? for a bowel movement promptly.If you delay you may lose the urge and have to strain later. ??? E) always report any significant changes in bowel habits. If you need a mild laxative, Konsyl works well and can be found at the drug store. (follow the directions). PLEASE CALL OUR OFFICE [phone] WITH ANY QUESTIONS OR CONCERNS Mon-Fri 9AM-5PM. Follow-up Appointment: 11/20/16 @ 11:30 AM (please arrive at 11:00 AM), on the 7th floor of the [facility] with Dr. Parker. FRANKLYN PATEL MD 11/10/2016 Cosigned by Ermelinda Arrington MD at 11/10/2016 5:32 PM EDT documented in this encounter Discharge Instructions * Discharge Instructions* Jessica Haq, DUY - 11/08/2016 3:32 PM EDT Images from the original note were not included. Department of Surgery Division of Transplantation [facility] [address] [place], [place] [address] [place] [address] [address] email: [email or web address] Deborah Parker MD, [facility] champion of sustainable design Director, Liver Transplantation and Hepatobiliary Surgery Post-Operative Patient Information Liver, Biliary and Pancreas Surgery When to call the office: ??? Fever (over 101??F), chills, night sweats ??? Excessive swelling of incision ??? You cannot urinate ??? Redness or bleeding near the incision ??? Increasing pain ??? Constipation FOLLOW - UP VISITS Your appointment should be two-three weeks from the time of your surgery. If you are doing well anddon???t have david and don???t need to see me, sometimes an email communication is just fine as well. If you leave with a drain in place, then you should be seen one week after surgery. If you haveany questions before that time please do not hesitate to call. I would ask that you email me with any concerns or questions. If you get discharged with a drain, Iwould like daily or every other day emails about the drain outputs. DRESSING A soft bandage has been placed over your incision. This will soak up any blood or fluid. You may remove the bandage in 24 hours. It is normal to see some swelling and/or discoloration around your incision. You may also notice some numbness at the incision, this may take several months to resolve. BATHING It is safe to take a shower in 24 hours, but NO tub bath until you check with us at your follow-up appointment. PAIN ??? You will be given a prescription for pain medication. It may be taken every four to six hours as needed for the first few days, after which time you should need less and less everyday. ??? Please take a stool softener with this. ??? You may place an ice bag on or near the incision if there is swelling. ACTIVITY ??? LIFTING: lift only light objects (10 to 20 lbs.) that you can manage easily for the first six weeks. If this is a second repair, then no heavy lifting for three months. When lifting, keep your back straight, and allow your legs to do most of the work. Do not start lifting a greater amount untilyou see us in follow-up. ??? DRIVING: Don???t drive while taking pain medication. You may begin driving when you feel comfortable. ??? EXERCISE: moderate exercise helps improve your circulation. You can walk as much as is comfortable. It is also okay to climb stairs, but take them slowly, one at a time. ??? WORK: If you have a desk job, you may be able to go back to work when you feel comfortable. If your job requires more physical activity, you may have to wait longer. This can be discussed in moredetail at your follow-up appointment. ??? SEX: you will be able to resume sexual relations as soon as it feels comfortable. DIET - You may resume your regular diet. ??? To avoid constipation that could be caused by your pain medication, follow these simple suggestions: ??? A) eat a high fiber diet; whole grain breads and cereals, raw fruit and vegetables, or cooked/dried fruits and vegetables. ??? B) drink plenty of liquids; water, fruit or vegetable juices. ??? C) exercise daily if possible. ??? D) be sensitive to your bowel function and answer the ???urge?? for a bowel movement promptly.If you delay you may lose the urge and have to strain later. ??? E) always report any significant changes in bowel habits. If you need a mild laxative, Konsyl works well and can be found at the drug store. (follow the directions). PLEASE CALL OUR OFFICE [phone] WITH ANY QUESTIONS OR CONCERNS Mon-Fri 9AM-5PM. Follow-up Appointment: 11/20/16 @ 11:30 AM (please arrive at 11:00 AM), on the 7th floor of [facility] with Dr. Parker. documented in this encounter Medications at Time [...] 11/10/2016 11/17/2016 documented as of this encounter Progress Notes * Franklyn Patel MD - 11/10/2016 6:09 AM EDT Surgery Progress Note Patient: Gardenia Childress Admit Date: 11/07/2016 OR Date: 11/07/2016 SUBJECTIVE -No acute events overnight. OBJECTIVE Vitals: Temp: [98 ??F (36.7 ??C)-98.6 ??F (37 ??C)] 98.3 ??F (36.8 ??C) Heart Rate: [68-92] 74 Resp: [16] 16 BP: (97-121)/(62-80) 121/77 mmHg Date 11/09/16 07 - 11/10/16 0659 11/10/16 07 - 11/11/16 0659 Shift 6173-0889 0265-4292 4307-8604 24 Hour Total 3019-4372 2046-2715 6259-6463 24 Hour Total I N T A K E P.O. 707 622 8654 P.O. 295 239 2357 I.V. (mL/kg) 236 (3.6) 236 (3.6) I.V. 236 236 Shift Total (mL/kg) 956 (14.6) 720 (11) 1676 (25.7) O U T P U T Urine (mL/kg/hr) 650 (1.2) 725 (1.4) 1300 2675 Urine 548 113 8236 2125 Output (mL) ([REMOVED] IUC (Graham) Double-lumen;Non-latex;Straight-tip 16 Fr.) 550 550 Shift Total (mL/kg) 650 (10) 725 (11.1) 1300 (19.9) 2675 (41) Weight (kg) 65.3 65.3 65.3 65.3 65.3 65.3 65.3 65.3 Physical Exam: Gen: NAD, A+Ox3 CV: RRR, normal S1/S2, no m/r/g Resp: CTAB, no respiratory distress Abd: Soft, NT/ND Ext: Warm and well perfused, SCDs Wound: incision c/d/i Labs: Recent Labs 11/08/16 035 WBC 12.6* HGB 10.1* HCT 30.3* PLT 271 Recent Labs 11/08/16 0357 NA 139 K 4.0 CL 110 CO2 22 BUN 8 CREATININE 0.67 GLUCOSE 89 CALCIUM 8.0* MG 1.8 PHOS 3.6 No results for input(s): POCGLU, POCGMD in the last 72 hours. Invalid input(s): GLU No results for input(s): AST, ALT, BILITOT, BILIDIRECT, ALKPHOS, ALBUMIN, GGT, AMYLASE, LIPASE in the last 72 hours. No results for input(s): INR, PROTIME in the last 72 hours. Current Medications: Scheduled Meds: ??? docusate sodium 100 mg Oral BID ??? heparin (porcine) 5,000 Units Subcutaneous Q8H ??? pantoprazole 40 mg Oral DAILY 0600 ??? polyethylene glycol 17 g Oral Daily 0900 ??? sodium chloride 10 mL Intravenous QS ??? topiramate 25 mg Oral BID Continuous Infusions: PRN Meds: acetaminophen, HYDROmorphone OR HYDROmorphone, ondansetron, oxyCODONE OR oxyCODONE ASSESSMENT/PLAN Gardenia Childress is a 36 y.o. female POD #3 s/p exploratory laporotomy and median arcuate ligament division. - Epidural out - PO pain meds - Graham out, voiding spontaneously - Tolerating regular diet - F/u AM Labs - Possible Discharge this afternoon FRANKLYN PATEL MD General Surgery Resident Pager: [phone] 11/10/2016 Cosigned by Ermelinda Arrington MD at 11/10/2016 5:06 PM EDT Associated attestation - Ermelinda Arrington MD - 11/10/2016 5:06 PM EDT I was present with the resident during the history and exam. I discussed the case with the residentand agree with the findings and plan as documented in the resident???s note. * Ramez Andrews MD - 11/09/2016 8:38 AM EDT Epidural removed this AM at 0815. SQH held and platelets and INR adequate for safe removal. Catheter tip intact. Meño Andrews MD Anesthesiology PGY-3 Inpatient Pain Service Pager # [phone] * Nilam Robertson MD - 11/09/2016 7:36 AM EDT Surgery Progress Note Patient: Gardenia Childress Admit Date: 11/07/2016 OR Date: 11/07/2016 SUBJECTIVE -No acute events overnight. - tolerating regular diet OBJECTIVE Vitals: Temp: [98.1 ??F (36.7 ??C)-98.6 ??F (37 ??C)] 98.5 ??F (36.9 ??C) Heart Rate: [80-94] 80 Resp: [16] 16 BP: (90-104)/(48-65) 96/55 mmHg Date 11/08/16 07 - 11/09/16 0659 11/09/16 07 - 11/10/16 0659 Shift 2462-1057 0048-7528 5793-1310 24 Hour Total 4064-2165 3110-5272 6146-3536 24 Hour Total I N T A K E P.O. 480 360 120 960 P.O. 480 360 120 960 I.V. (mL/kg) 893.2 (13.7) 575.6 (8.8) 731.6 (11.2) 2200.4 (33.7) I.V. 821 803 959 6859 Amt Infused (mL) (bupivacaine (MARCAINE) 0.0625%/HYDROmorphone (DILAUDID) 0.002% in sodium chloride0.9% 250mL epidural) 72.2 38.6 49.6 160.4 Shift Total (mL/kg) 1373.2 (21) 935.6 (14.3) 851.6 (13) 3160.4 (48.4) O U T P U T Urine (mL/kg/hr) 225 (0.4) 1100 (2.1) 400 (0.8) 1725 (1.1) Output (mL) (IUC (Graham) Double-lumen;Non-latex;Straight-tip 16 Fr.) 225 0087 455 7860 Shift Total (mL/kg) 225 (3.4) 1100 (16.8) 400 (6.1) 1725 (26.4) Weight (kg) 65.3 65.3 65.3 65.3 65.3 65.3 65.3 65.3 Physical Exam: Gen: NAD, A+Ox3 CV: RRR, normal S1/S2, no m/r/g Resp: CTAB, no respiratory distress Abd: Soft, NT/ND Ext: Warm and well perfused, SCDs Wound: incision c/d/i Labs: Recent Labs 11/08/16 0357 WBC 12.6* HGB 10.1* HCT 30.3* PLT 271 Recent Labs 11/08/16 0357 NA 139 K 4.0 CL 110 CO2 22 BUN 8 CREATININE 0.67 GLUCOSE 89 CALCIUM 8.0* MG 1.8 PHOS 3.6 No results for input(s): POCGLU, POCGMD in the last 72 hours. Invalid input(s): GLU No results for input(s): AST, ALT, BILITOT, BILIDIRECT, ALKPHOS, ALBUMIN, GGT, AMYLASE, LIPASE in the last 72 hours. No results for input(s): INR, PROTIME in the last 72 hours. Current Medications: Scheduled Meds: ??? docusate sodium 100 mg Oral BID ??? pantoprazole 40 mg Oral DAILY 0600 ??? polyethylene glycol 17 g Oral Daily 0900 ??? sodium chloride 10 mL Intravenous QS ??? topiramate 25 mg Oral BID Continuous Infusions: ??? bupivacaine (MARCAINE) 0.125%/HYDROmorphone (DILAUDID) 0.002% in sodium chloride 0.9% 250 mL epidural ??? dextrose 5 % and 0.45 % NaCl with KCl 20 mEq 75 mL/hr (11/08/162100) PRN Meds: diphenhydrAMINE OR diphenhydrAMINE, nalbuphine(NUBAIN) IV injection, naloxone, ondansetron, oxyCODONE OR oxyCODONE, proMETHazine OR proMETHazine ASSESSMENT/PLAN Gardenia Childress is a 36 y.o. female POD #2 s/p exploratory laporotomy and median arcuate ligament division. - Discontinue epidural today and transition to PO pain medications - plan to start toradol 4 hours after epidural removal - resume SQH 4 hours after epidural removal - Discontinue graham - Tolerating regular diet - HLIVF Nilam Robertson MD General Surgery Resident Pager: [phone] 11/09/2016 Cosigned by Ermelinda Arrington MD at 11/10/2016 12:13 AM EDT Associated attestation - Ermelinda Arrington MD - 11/10/2016 12:13 AM EDT I was present with the resident during the history and exam. I discussed the case with the residentand agree with the findings and plan as documented in the resident???s note. * Ronel Wilson RN - 11/09/2016 4:28 AM EDT Pt was very nauseous at the beginning of shift. Medicated with 4 mg zofran. Pt AOx4, VSS, dressing on the chevron inc appears saturated with old drainage, no leaking noted. Family member at bedside, will cont to monitor. * Essence Youngblood MD - 11/08/2016 11:41 AM EDT Surgery Progress Note Patient: Gardenia Childress Admit Date: 11/07/2016 OR Date: 11/07/2016 SUBJECTIVE -No acute events overnight. OBJECTIVE Vitals: Temp: [97.6 ??F (36.4 ??C)-100.1 ??F (37.8 ??C)] 100.1 ??F (37.8 ??C) Heart Rate: [87-102] 102 Resp: [8-16] 16 BP: (91-121)/(45-69) 94/59 mmHg FiO2: [95 %-100 %] 100 % Date 11/07/16 07 - 11/08/16 0659 11/08/16 07 - 11/09/16 0659 Shift 4096-8801 0520-0032 2127-4002 24 Hour Total 4748-5875 2223-9763 6833-3206 24 Hour Total I N T A K E P.O. 120 120 480 480 P.O. 120 120 480 480 I.V. (mL/kg) 1000 (15.3) 1942.7 (29.7) 1160 (17.8) 4102.7 (62.8) I.V. 291 1090 1381 Amt Infused (mL) (bupivacaine (MARCAINE) 0.0625%/HYDROmorphone (DILAUDID) 0.002% in sodium chloride0.9% 250mL epidural) 51.7 70 121.7 Volume (mL) (electrolyte-R (pH 7.4) (NORMOSOL-R pH 7.4) iv solution SolP) 1000 1000 Volume (mL) (lactated Ringers infusion) 5331 758 1990 Shift Total (mL/kg) 1000 (15.3) 1942.7 (29.7) 1280 (19.6) 4222.7 (64.6) 480 (7.3) 480 (7.3) O U T P U T Urine (mL/kg/hr) 150 (0.3) 250 (0.5) 375 (0.7) 775 (0.5) Urine 150 150 Output (mL) (IUC (Graham) Double-lumen;Non-latex;Straight-tip 16 Fr.) 250 375 625 Blood 125 125 Est Blood Loss 125 125 Shift Total (mL/kg) 150 (2.3) 375 (5.7) 375 (5.7) 900 (13.8) Weight (kg) 65.3 65.3 65.3 65.3 65.3 65.3 65.3 65.3 Physical Exam: Gen: NAD, A+Ox3 CV: RRR, normal S1/S2, no m/r/g Resp: CTAB, no respiratory distress Abd: Soft, NT/ND Ext: Warm and well perfused, SCDs Wound: incision c/d/i Labs: Recent Labs 11/08/16 0357 WBC 12.6* HGB 10.1* HCT 30.3* PLT 271 Recent Labs 11/08/16 0357 NA 139 K 4.0 CL 110 CO2 22 BUN 8 CREATININE 0.67 GLUCOSE 89 CALCIUM 8.0* MG 1.8 PHOS 3.6 No results for input(s): POCGLU, POCGMD in the last 72 hours. Invalid input(s): GLU No results for input(s): AST, ALT, BILITOT, BILIDIRECT, ALKPHOS, ALBUMIN, GGT, AMYLASE, LIPASE in the last 72 hours. No results for input(s): INR, PROTIME in the last 72 hours. Current Medications: Scheduled Meds: ??? docusate sodium 100 mg Oral BID ??? heparin (porcine) 5,000 Units Subcutaneous Q8H ??? pantoprazole 40 mg Oral DAILY 0600 ??? polyethylene glycol 17 g Oral Daily 0900 ??? sodium chloride 10 mL Intravenous QS ??? topiramate 25 mg Oral BID Continuous Infusions: ??? bupivacaine (MARCAINE) 0.125%/HYDROmorphone (DILAUDID) 0.002% in sodium chloride 0.9% 250 mL epidural ??? dextrose 5 % and 0.45 % NaCl with KCl 20 mEq 75 mL/hr (11/08/16 0931) PRN Meds: diphenhydrAMINE OR diphenhydrAMINE, nalbuphine(NUBAIN) IV injection, naloxone, ondansetron, oxyCODONE OR oxyCODONE, proMETHazine OR proMETHazine ASSESSMENT/PLAN Gardenia Childress is a 36 y.o. female POD #1 s/p exploratory laporotomy and median arcuate ligament division. -Pain well controlled, continue epidural. -Will hold SQH tomorrow AM for planned epidural removal -Advance to regular diet -Switch to mIVF @ 75 Final plan per attending physician. ESSENCE YOUNGBLOOD MD General Surgery Resident Pager: [phone] 11/08/2016 Cosigned by Deborah Parker MD at 11/08/2016 12:29 PM EDT Associated attestation - Deborah Parker MD - 11/08/2016 12:29 PM EDT I have seen and examined the patient and agree with the plan. All points of care were reviewed in amultidisciplinary fashion with the housestaff and teams involved. * Eli Blanco RN - 11/08/2016 10:54 AM EDT Anesthesiology Inpatient Pain Service Progress Note 11/08/2016 Patient name: Gardenia Childress 36 y.o. female : 1980 HPI: No acute events overnight Diagnosis: Generalized abdominal pain and Celiac artery stenosis S/P: Exploratory Laparotomy, Median Arcuate Ligament Division, Celiac ganglion plexus neurolysis with ETOH injection 1 Day Post-Op Current hospital day: Hospital Day: 2 Consulting Service: Transplant Pain Scores: Pain at rest: 4 Pain with movement: 6 Pain with coughin Current Pain Management: Epidural Bupivacaine 0.0625% (0.625 mg/mL) + Dilaudid 0.002% Infusion rate: 8 ml/hr; bolus dose 2 ml/20 min; max boluses/hr: 3 Systemic analgesics Complications: None Current Medications: Scheduled Meds: ??? docusate sodium 100 mg Oral BID ??? heparin (porcine) 5,000 Units Subcutaneous Q8H ??? pantoprazole 40 mg Oral DAILY 0600 ??? polyethylene glycol 17 g Oral Daily 0900 ??? sodium chloride 10 mL Intravenous QS ??? topiramate 25 mg Oral BID Continuous Infusions: ??? bupivacaine (MARCAINE) 0.125%/HYDROmorphone (DILAUDID) 0.002% in sodium chloride 0.9% 250 mL epidural ??? dextrose 5 % and 0.45 % NaCl with KCl 20 mEq 75 mL/hr (07/21/17 0931) Infusion Meds: ??? bupivacaine (MARCAINE) 0.125%/HYDROmorphone (DILAUDID) 0.002% in sodium chloride 0.9% 250 mL epidural ??? dextrose 5 % and 0.45 % NaCl with KCl 20 mEq 75 mL/hr (11/08/16930) PRN Meds:.diphenhydrAMINE OR diphenhydrAMINE, nalbuphine(NUBAIN) IV injection, naloxone, ondansetron, oxyCODONE OR oxyCODONE, proMETHazine OR proMETHazine Allergies: Allergies Allergen Reactions ??? Aspirin Other (See Comments) Due to biliary atresia ??? Latex, Natural Rubber ??? Morphine Nausea And Vomiting ROS: Pertinent items are noted in HPI. Physical Exam: General appearance: alert, well appearing, and in no distress and oriented to person, place, and time Skin: Skin color, texture, turgor normal. No rashes or lesions Catheter site: Non-tender and dressing intact, moves all extremities well and able to cough and deep breathe comfortably HEENT: NC Chest: No tachypnea Neuro/Muscular skeletal: Grossly normal Psych: Alertness: alert Orientation: time, person, place Affect: normal Vital signs 24 hour range and most current reading: Temp: [97.6 ??F (36.4 ??C)-100.1 ??F (37.8 ??C)] 100.1 ??F (37.8 ??C) Heart Rate: [87-102] 102 Resp: [8-16] 16 BP: (91-121)/(45-69) 94/59 mmHg FiO2: [95 %-100 %] 100 % Labs: Lab Results Component Value Date WBC 12.6* 11/08/2016 HGB 10.1* 11/08/2016 HCT 30.3* 11/08/2016 MCV 85.0 11/08/2016 PLT 271 11/08/2016 Lab Results Component Value Date INR 1.0 11/04/2016 INR 1.0 10/31/2016 INR 1.0 06/07/2009 PROTIME 13.8 11/04/2016 PROTIME 13.5 10/31/2016 PROTIME 10.2 06/07/2009 Impression: Inadequate analgesia Assessment: 36 y/o female with Hx of Generalized abdominal pain and Celiac artery stenosis s/p Exploratory Laparotomy, Median Arcuate Ligament Division, Celiac ganglion plexus neurolysis with ETOH injection. Plan: Continue epidural analgesia at this time. - Will increase concentration of Bupivacaine: Epidural Bupivacaine 0.125% (1.25 mg/ml) + Dilaudid 0.002% Infusion rate: 6 ml/hr; bolus dose 2 ml/20 min; max boluses/hr: 3 - Will d/c IV Dilaudid, use is contraindicated while epidural contains Dilaudid Maintain graham until epidural discontinued. Will follow. Written by Eli Blanco R.N., acting as a scribe for Dr. Barboza, Dr. Taveras, Dr. Rojas, andDrFazal Arrabal Cosigned by Thuan Barboza MD at 11/08/2016 11:23 AM EDT Associated attestation - Thuan Barboza MD - 11/08/2016 11:23 AM EDT ATTENDING NOTE: The scribe???s (Rach Blanco RN) documentation has been prepared under my direction and personally reviewed by me in its entirety. I confirm that the note above accurately reflects all work, treatment, procedures, and medical decision making performed by me. Thuan Barboza MD (IPS Attending) * Lucy Draper RN - 11/07/2016 8:50 PM EDT Pt admitted to room 9029 from PACU. Pt and family oriented to room. Call light within reach. Epi 8--20-3. Graham draining clear yellow urine. LR @ 125ml/hr. Pt resting quietly in bed @ present time. Will continue to monitor. * Breanna Dailey RN - 11/07/2016 4:25 PM EDT No family in waiting room to update. No number in chart listed. * Sandy Monte RN - 11/07/2016 10:56 AM EDT Patient and family updated on surgery-all verbalized understanding. Patient resting and talking with her family. * Sandy Monte RN - 11/07/2016 8:[address] Parker in to see patient and the patient and family are aware that the surgery is delayed until this afternoon. Column Precaster asked Dr. Parker if patient could have her pre medications now. Patient given allpre medications except for Heparin 5,000 units subq, to be given by anesthesia staff. * Magali Schulte RN - 11/07/2016 7:43 AM EDT Pt originally had an OR start time of 0730, Pt's new OR time is currently 1410. Pt updated and tolerated the news well. documented in this encounter H&P Notes * Deborah Parker MD - 11/08/2016 12:38 PM EDT No changes to H and P. Consent signed. documented in this encounter Procedure Notes * Migue Lynch MD - 11/07/2016 4:15 PM EDT [facility] OPERATIVE REPORT PATIENT: Gardenia Childress CSN: [id number] DATE OF OPERATION: 11/08/2016 ATTENDING SURGEON: Deborah Parker MD ASSISTANTS: 1. Migue Lynhc MD PREOPERATIVE DIAGNOSIS: Median arcuate ligament syndrome POSTOPERATIVE DIAGNOSIS: Median arcuate ligament syndrome OPERATIONS/PROCEDURES PERFORMED: 1. Exploratory laparotomy 2. Extensive adhesiolysis 3. Release of median arcuate ligament 4. Celiac plexus neurolysis SPECIMEN(S): 1. None FINDINGS: Thick fibrous bands surrounding the celiac trunk consistent with median arcuate ligament syndrome ESTIMATED BLOOD LOSS: 125cc ANESTHESIA: General endotracheal COMPLICATIONS: None INDICATIONS FOR OPERATION: The patient is a 36-year-old female with history and imaging findings consistent with median arcuate ligament syndrome. Patient presents today for open release of median arcuate ligament and neurolysis of the celiac plexus. Informed consent was obtained and the risks, benefits, and details of the procedure were explained to the patient who elected to proceed. DETAILS OF PROCEDURE: The patient was brought to the operating room and placed in the supine position on the operating room table. SCDs were placed on the lower extremities. General anesthesia was induced and the patient was intubated without issue. A graham catheter was placed and an orogastric tube was placed for gastric decompression. The patient's abdomen was prepped and draped in the usual sterile fashion. A routine timeout was performed which confirmed the patient, procedure, risk of fire, allergies and confirmed administration of preoperative antibiotics with Ancef. Long transverse incision was made in the upper abdomen through her previous surgical scar from her Kasai procedure as a child. Dissection was carried through the fascia and into the peritoneum. Therewere extensive adhesions present from her previous Kasai procedure. Extensive adhesiolysis was performed and Estrada retractor was placed for better visualization. Liver was freed from adhesions andretracted cephalad to identify the lesser sac. We entered the lesser sac by dividing through the gastrohepatic ligament and dissection was carried down until common hepatic artery was encountered. Then the dissection was carried out carefully following the hepatic artery to the celiac trunk. Celiactrunk was tightly encased in thick fibrous bands consistent with median arcuate ligament syndrome. These fibrous bands were carefully taken down using electrocautery. Of note, we ran into a small amount of bleeding ikely from a small arterial branch from the gastric artery which was controlled with2 figure of eight 6-0 Prolene stitches. After the release of median arcuate ligament, we injected the celiac plexus bilaterally on the lateral borders of the celiac trunk with 98% dehydrated ethanol for neurolysis. The abdomen was then irrigated and hemostasis was obtained. Fascia was closed with running 0 PDS sutures and skin was stapled closed. The patient tolerated the procedure well. There were no immediate complications. At the end of the case, all needle, instrument and sponge counts were correct. Dr. Parker, the attending surgeon, was present throughout the entirety of the case and directed all clinical and operative decision making. The patient was extubated in the operating room and transferred to the PACU in stable condition. Migue Lynch MD Cosigned by Deborah Parker MD at 11/11/2016 7:48 AM EDT Associated attestation - Deborah Parker MD - 11/11/2016 7:48 AM EDT I was present for the entire procedure. * Jayne Marley - 11/07/2016 4:15 PM EDT AMENDMENT - DEMOGRAPHIC REVISION(DOS) - 11/15/16 - akg Original Author: MD Migue Torres MD Resident Attested Transplant Surgery Op Note 11/07/2016 ??4:15 PM Attestation signed by Deborah Parker MD at 11/11/2016 7:48 AM I was present for the entire procedure. [facility] OPERATIVE REPORT ?? PATIENT: Gardenia Childress CSN: [id number] DATE OF OPERATION: 11/07/2016 ATTENDING SURGEON: Deborah Parker MD ASSISTANTS: ?? 1. Migue Lynch MD PREOPERATIVE DIAGNOSIS: Median arcuate ligament syndrome POSTOPERATIVE DIAGNOSIS: Median arcuate ligament syndrome ? OPERATIONS/PROCEDURES PERFORMED: ?? 1. Exploratory laparotomy 2. Extensive adhesiolysis 3. Release of median arcuate ligament 4. Celiac plexus neurolysis ? SPECIMEN(S): 1. None FINDINGS: Thick fibrous bands surrounding the celiac trunk consistent with median arcuate ligament syndrome ESTIMATED BLOOD LOSS: 125cc ANESTHESIA: General endotracheal COMPLICATIONS: None INDICATIONS FOR OPERATION: ?? The patient is a 36-year-old female with history and imaging findings consistent with median arcuate ligament syndrome. Patient presents today for open release of median arcuate ligament and neurolysis of the celiac plexus. Informed consent was obtained and the risks, benefits, and details of the procedure were explained to the patient who elected to proceed. DETAILS OF PROCEDURE: ?? The patient was brought to the operating room and placed in the supine position on the operating room table. SCDs were placed on the lower extremities. General anesthesia was induced and the patient was intubated without issue.?? A graham catheter was placed and an orogastric tube was placed for gastric decompression. The patient's abdomen was prepped and draped in the usual sterile fashion. A routine timeout was performed which confirmed the patient, procedure, risk of fire, allergies and confirmed administration of preoperative antibiotics with Ancef.?? Long transverse incision was made in the upper abdomen through her previous surgical scar from her Kasai procedure as a child. Dissection was carried through the fascia and into the peritoneum. Therewere extensive adhesions present from her previous Kasai procedure. Extensive adhesiolysis was performed and Estrada retractor was placed for better visualization. Liver was freed from adhesions andretracted cephalad to identify the lesser sac. We entered the lesser sac by dividing through the gastrohepatic ligament and dissection was carried down until common hepatic artery was encountered. Then the dissection was carried out carefully following the hepatic artery to the celiac trunk. Celiactrunk was tightly encased in thick fibrous bands consistent with median arcuate ligament syndrome. These fibrous bands were carefully taken down using electrocautery. Of note, we ran into a small amount of bleeding ikely from a small arterial branch from the gastric artery which was controlled with2 figure of eight 6-0 Prolene stitches. After the release of median arcuate ligament, we injected the celiac plexus bilaterally on the lateral borders of the celiac trunk with 98% dehydrated ethanol for neurolysis. The abdomen was then irrigated and hemostasis was obtained. Fascia was closed with running 0 PDS sutures and skin was stapled closed. The patient tolerated the procedure well. There were no immediate complications. At the end of the case, all needle, instrument and sponge counts were correct. Dr. Parker, the attending surgeon, was present throughout the entirety of the case and directed all clinical and operative decision making. The patient was extubated in the operating room and transferred to the PACU?? in stable condition. Migue Lynch MD Cosigned by: Deborah Parker MD at 11/11/2016 ??7:48 AM Cosigned by Deborah Parker MD at 11/15/2016 10:33 AM EDT * Migue Lynch MD - 11/07/2016 3:52 PM EDT Exploratory Laparotomy, Median Arcuate Ligament Division, Celiac Ganglian plexis injection with ETOH dehydrated Procedure Note Gardenia Childress 11/07/2016 Pre-op Diagnosis: Generalized abdominal pain [R10.84] Celiac artery stenosis [I77.4] Post-op Diagnosis: Same Procedure(s): Exploratory Laparotomy, Median Arcuate Ligament Division, Celiac ganglion plexus neurolysis with ETOH injection Surgeon(s): Deborah Parker MD Anesthesia: General Staff: Rubber Mold Maker: Eric Costa RN; Ruben Potter RN Relief Rubber Mold Maker: Mya Sanches RN Relief Scrub: Mya Sanches RN Scrub Person: Елена Cevallos CST Resident: Migue Lynch MD Estimated Blood Loss: Minimal Specimens: * No specimens in log * Drains: IUC (Graham) Double-lumen;Non-latex;Straight-tip 16 Fr. (Active) Status Chandler Drainage 11/07/2016 3:35 PM Collection Container Standard drainage bag 11/07/2016 3:35 PM Securement Method StatLock 11/07/2016 3:35 PM Number of days:0 There were no complications unless listed below. MIGUE LYNCH Date: 11/07/2016 Time: 6:52 PM * Eli Blanco RN - 11/07/2016 11:54 AM EDTAssociated Order(s): ANESTHESIA EPIDURAL PLACEMENT (SMARTFORM) Pre-Procedure Diagnose(s): Celiac artery stenosis (CMS-HCC) Post-Procedure Diagnose(s): Celiac artery stenosis (CMS-HCC) Gardenia Childress is a 36 y.o. female patient. 1. Generalized abdominal pain 2. Celiac artery stenosis Past Medical History Diagnosis Date ??? Biliary stenosis ??? 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 Migraine ??? Anemia gestational ??? Thyroid disease nodule Blood pressure 118/77, pulse 65, temperature 97.8 ??F (36.6 ??C), temperature source Oral, resp. rate 16, height 5' 5 (1.651 m), weight 144 lb (65.318 kg), last menstrual period 10/31/2016, SpO2 100%. Epidural Placement Reason for block: procedure for pain and post-op pain management Diagnosis: abdominal pain. Requesting Physician/Surgeon: Keith Patient location during procedure: pre-op holding (SDS) Performed preoperatively. Pre-procedure Pain Score: 2 Pre procedure BP: 118/77 Pre procedure HR: 65 Pre procedure RR: 16 SpO2 before procedure: 100% Patient position: sitting Preanesthetic Checklist Completed: patient identified, anesthesia consent given, pre-op evaluation, timeout performed, IV checked, risks and benefits discussed, monitors and equipment checked/attached to patient, patient being monitored and hand hygiene performed Anesthesia risks / alternatives discussed pre-op Questions answered / anesthesia plan accepted and patient agrees to proceed.. Timeout performed at: 11:44. By: Joycelyn HERNANDEZ Timeout verification: correct patient, correct procedure, correct site and allergies reviewed. Epidural Prep: ChloraPrep and site prepped and draped Approach: right paramedian Start time: 11/07/2016 11:44 AM Needle Injection technique: JAYNA air and JAYNA saline Needle type: Tuohy Needle gauge: 17 Needle length: 3.5 in (9 cm) Type: thoracic epidural Level of placement: T7-8 Needle insertion depth: 6 cm Catheter at skin depth: 11 cm Number of attempts: 1 Test Dose Time: 11/07/2016 11:55 AM Performed after negative aspiration. Test dose: lidocaine 1.5% with Epi 1:200 K 3 mL(s) Catheter secured and sterile dressing applied. Assessment Events: blood not aspirated via needle, blood not aspirated via catheter, injection not painful, noinjection resistance, no paresthesia with needle placement, no paresthesia with catheter placement,no other event, no positive intravascular test dose, no dural puncture/CSF with needle placement, no dural puncture/CSF with catheter placement and no positive intrathecal test dose Block Effect: Successful and No Unexpected/Untoward Events Post-procedure Pain Score: 0-No pain End time: 11/07/2016 11:58 AM Post procedure BP: 101/60 Post Procedure HR: 80 Post Procedure RR: 19 SpO2 after procedure: 100% Staffing Anesthesiologist: THUAN BARBOZA Resident/VOCATIONAL REHABILITATION ADMINISTRATOR: VJ ROJAS Performed by: residents Additional Notes The procedure was described in detail and the risks, benefits and alternatives were discussed with the patient (including but not limited to: bleeding, infection, nerve damage, worsening of pain, CSFleak, inability to perform injection, paralysis, seizures, and ) who agreed to proceed. Written by Eli Blanco R.N., acting as a scribe for Dr. Cornell BLANCO 11/07/2016 Cosigned by Thuan Barboza MD at 11/07/2016 1:39 PM EDT Associated attestation - Thuan Barboza MD - 11/07/2016 1:39 PM EDT Attending Note: I have supervised the resident in this assessment, reviewed their procedure note and discussed carewith them as scribed by our Pain RN, Eli Blanco RN for the resident at 11/07/16 1154. I agree with their history, physical examination, assessment and plan as noted above. Thoracic epidural placed. No immediate complications noted. Thuan Barboza MD (IPS Attending) Thuan Barboza MD documented in this encounter Consult Notes * Eli Blanco RN - 11/07/2016 11:48 AM EDT Anesthesiology Inpatient Pain Service Consultation Note 11/07/2016 Patient Name: Gardenia Childress 36 y.o. female : 1980 Day of Surgery Diagnosis: celiac artery stenosis Admitting Provider: Deborah Parker MD Consulting Service: TXP HPI: Gardenia Childress is a 36 y.o. female with the chief complaint of abdominal pain. She reports the pain does not radiate and rates the pain 2/10. Pain is described as dull and constant in nature. Patient reports the pain is aggravated by nothing and alleviated by nothing. Review of Systems: Pertinent items are noted in HPI. Labs: Lab Results Component Value Date WBC 6.7 11/04/2016 HGB 12.1 11/04/2016 HCT 34.9* 11/04/2016 MCV 83.5 11/04/2016 PLT 331 11/04/2016 Lab Results Component Value Date INR 1.0 11/04/2016 INR 1.0 10/31/2016 INR 1.0 06/07/2009 PROTIME 13.8 11/04/2016 PROTIME 13.5 10/31/2016 PROTIME 10.2 06/07/2009 Imaging: X-ray Portable Chest 10/31/2016 Exam: XR PORTABLE CHEST CLINICAL HISTORY: Other - Must Specify in Comments; post celiac nerve block patient is in holding room 5; TECHNIQUE: Portable AP view of the chest. COMPARISON: Radiograph of the chest from 05/08/2011. FINDINGS: Medical Devices: None. Heart and Mediastinum: The cardio mediastinal contours are unchanged and within normal limits. Lungs and Pleura: The lungs are clear.No pneumothorax. Bones and Soft tissues: Nothing acute. 10/31/2016 IMPRESSION: No findings to suggest postprocedural complication. Report Verified by: Ramez Harding MD at 10/31/2016 3:[address] Angio Biphasic Liver 10/14/2016 Exam: CT ANGIOGRAPHY LIVER BIPHASIC dated 10/14/2016 9:24 AM EDT CLINICAL HISTORY: Obstruction of bile duct; history of biliary atresia with remote Kasai procedure TECHNIQUE: Biphasic (arterial and venous) helical scanning was performed through the abdomen following intravenous contrast adm inistration with multiplanar reformats, maximum intensity projections, and volume rendering performed separately. FIELD OF VIEW: 34 cm CONTRAST: 150 mL Omnipaque-350. COMPARISON: April 2011 FINDINGS: Changes of choledochojejunostomy are noted. There is mild left intrahepatic biliary dilation withpneumobilia, unchanged. The right bile ducts are not dilated. The liver is normal in attenuation with no focal lesions. The portal vein and hepatic veins are patent. There is a high-grade stenosis ofthe celiac artery from arcuate ligament compression, similar to prior. The spleen, pancreas, kidneys, and adrenal glands are normal in appearance. The gallbladder is absent. No abnormalities of the gastrointestinal tract are evident. The lung bases are clear. There are no lytic or blastic bone lesions. 10/14/2016 IMPRESSION: 1. Stable mild left biliary dilation and pneumobilia, post remote hepaticojejunostomy. 2. High-grade celiac stenosis. Report Verified by: YOLANDA TIPTON M.D. at 10/14/2016 10:06 AM EDT Past medical history: Past Medical History Diagnosis Date ??? Biliary stenosis ??? 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 Migraine ??? Anemia gestational ??? Thyroid disease nodule Past surgical history: Past Surgical History Procedure Laterality Date ??? Cholecystectomy ??? Appendectomy Family History: Family History Problem Relation Age of Onset ??? Diabetes Mother ??? Heart disease Mother ??? COPD Mother ??? Stroke Mother ??? Cancer Sister ??? Diabetes Sister Social history: Social History Social History ??? Marital Status: [...] atresia ??? Morphine Nausea And Vomiting Current Medications: Scheduled Meds: ??? heparin (porcine) 5,000 Units Subcutaneous Once ??? scopolamine 1 patch Transdermal Q72H Continuous Infusions: Infusion Meds: PRN Meds:ceFAZolin (ANCEF) IVPB, lidocaine (PF) 2% (20 mg/mL) Physical Exam: General appearance: alert, well appearing, and in no distress and oriented to person, place, and time Skin: Skin color, texture, turgor normal. No rashes or lesions HEENT: NC Chest: No tachypnea CV: RRR Neuro/Muscular skeletal: Grossly normal Psych: Alertness: alert Orientation: time, person, place Affect: normal Vital signs 24 hour range and most current reading: Temp: [97.8 ??F (36.6 ??C)] 97.8 ??F (36.6 ??C) Heart Rate: [65] 65 Resp: [16] 16 BP: (118)/(77) 118/77 mmHg Assessment/Plan: 36 y/o female with Hx of abdominal pain and celiac artery stenosis presents for Exploratory laparotomy, median arcuate ligament division. Patient informed that they may benefit from thoracic epidural for post-op pain control and pulmonary toilet. The procedure was described in detail and the risks, benefits and alternatives were discussed with the patient (including but not limited to: bleeding, infection, nerve damage, worsening of pain, CSF leak, inability to perform injection, paralysis, seizures, and ) who agreed to proceed. Will follow. Written by Eli Blanco R.N., acting as a scribe for Dr. Barboza Cosigned by Thuan Barboza MD at 11/07/2016 1:38 PM EDT Associated attestation - Thuan Barboza MD - 11/07/2016 1:38 PM EDT Attending Note: I have supervised the resident in this assessment, reviewed their note and discussed care with themas scribed by our Pain RN, Eli Blanco RN for the resident at 11/07/16 1148. I agree with their history, physical examination, assessment and plan as noted above. Gardenia Childress would benefit from thoracic epidural to help in perioperative analgesia following laparotomy and arcuate ligament release. Will follow. Thuan Barboza MD (IPS Attending) documented in this encounter Nursing Notes * Dejuan Denney RN - 11/10/2016 5:33 PM EDT Pt to be discharged to home. VSS, pain controlled on PO pain medications. AVS reviewed and signed. Pt verbalized understanding. 3 IV d/c'd. Scripts given. Core measures complete. Transport called, awaiting arrival. * Dejuan Denney RN - 11/09/2016 6:26 PM EDT Pt's epidural removed this morning, pt has had increasing pain throughout the day. Transplant team notified, additional pain medication ordered and administered. Graham removed per orders, pt has spontaneously voided since removal with no issues. Pt also with complaint of nausea, team notified and an tiemetic administered. Pt currently resting in bed, CLWR. No other needs expressed at this time. * Dejuan Denney RN - 11/08/2016 8:03 PM EDT Pt with increased drowsiness during the day, pain team notified and epidural settings decreased. Ptmore alert now, ambulated to her chair with minimal assist and currently sitting upright. Graham in place draining clear yellow urine. Dressing on abdominal incision is dry and intact with minimal olddrainage. Currently resting comfortably in chair, CLWR. Will continue to monitor. * Breanna Finley RN - 11/07/2016 8:15 PM EDT Central Monitoring remote orders reconciled at this time. Breanna Finley RN, Central Monitoring Unit * Mya Sanches RN - 11/07/2016 2:22 PM EDT Call placed to waiting area informed of incision time request no updates needed till surgeon ready to speak with family. documented in this encounter Miscellaneous Notes * Care Coordination - CLARE Wray, DOCTOR ASSISTANT - 11/08/2016 11:42 AM EDT [facility] Care Management Department High Risk Screen Name: Gardenia Childress Date: 11/08/2016 High Risk Screen Patient admitted from [facility], nursing home or rehab facility: No Patient is over 70 years of age and lives alone: No Patient is active with Hospice services: No Patient is suspected victim of abuse, neglect, violence: No Current alcohol or drug abuse: No Patient is homeless: No Patient is from justice center or on police hold: No Patient has a new diagnosis of a terminal illness: No Patient has a new diagnosis of a chronic illness: No Patient has multiple co-morbidities and/or>5 home medications: Yes Patient has no PCP or medical home: No Patient has history of dementia, mental illness or DD: No Patient has no payer source: No Patient has previous admission within last 30 days: No Anticipate specialized home health needs, i.e., wounds, trach, cellulitis, ostomy, tube-feeds, TPN,DME: No Score: 2 Assignment of Risk Level Patient has been screened by Care Management and meets High Risk Indicators, psychosocial assessment to follow. (Score of > 4) Patient has been screened by Care Mangement and meets Moderate Risk Indicators, psychosocial assessment to follow. (Score of 2-4) Patient has been screened by Care Management and meets Low Risk indicators. Please call [facility] Assistant Director if needs arise. (Score 0-1) BREANNA SPARKS [facility] [phone] * Care Coordination - CLARE Wray LSW - 11/08/2016 11:37 AM EDT Sw: Patient expected discharge date of 11/10 vs. 11/11. No Sw needs expected at this time. Breanna SPARKS [facility] [phone] * Post Briefing - Ruben Potter RN - 11/07/2016 3:10 PM EDT INTRA-OP POST BRIEFING NOTE: [place] Childress Specimens: Prior to leaving the room: Nurse confirmed name of procedure, completion of instrument, sponge & needle counts, reads specimen labels aloud including patient name and addresses any equipment issues? Nurse confirmed wound class. Nurse to surgeon and anesthesia: What are floyd concerns for recoveryand management of the patient? Yes Blood products stored at appropriate temperatures prior to return to blood bank (if applicable)? Yes Patient identification band secured on patient prior to transfer out of the operating room? Yes Other Comments: Signed: RUBEN POTTER Date: 11/07/2016 Time: 3:10 PM documented in this encounter Plan of Treatment Not on file documented as of this encounter Procedures Procedure Name Priority Date/Time Associated Diagnosis Comments RENAL FUNCTION PANEL W/EGFR Routine 11/10/2016 7:37 AM EDT CBC Routine 11/10/2016 7:37 AM EDT CBC Routine 11/08/2016 3:57 AM EDT PHOSPHORUS Routine 11/08/2016 3:57 AM EDT MAGNESIUM Routine 11/08/2016 3:57 AM EDT BASIC METABOLIC PANEL Routine 11/08/2016 3:57 AM EDT RESECTION LIVER 11/07/2016 1:13 PM EDT Generalized abdominal pain Celiac artery stenosis (CMS-HCC) Special Needs Estrada, chevron incision, arterial line, epidural for s/p pain, type & cross- 2 units.-#LW ANESTHESIA EPIDURAL PLACEMENT (SMARTFORM) Routine 11/07/2016 11:58 AM EDT Celiac artery stenosis (CMS-HCC) POCT URINE HCG BY VISUAL COLOR COMPARISON TESTS Routine 11/07/2016 6:50 AM EDT RESECTION LIVER Routine 11/07/2016 4:09 AM EDT Generalized abdominal pain Celiac artery stenosis (CMS-HCC) documented in this encounter Results * (ABNORMAL) Renal Function Panel w/EGFR (11/10/2016 7:37 AM EDT) Sodium 140 133 - 146 mmol/L 11/10/2016 8:48 AM EDT [facility] Potassium 3.6 3.5 - 5.3 mmol/L 11/10/2016 8:48 AM EDT [facility] Chloride 108 98 - 110 mmol/L 11/10/2016 8:48 AM EDT [facility] CO2 24 21 - 33 mmol/L 11/10/2016 8:48 AM EDT [facility] Anion Gap 8 3 - 16 mmol/L 11/10/2016 8:48 AM EDT [facility] BUN 6(L) 7 - 25 mg/dL 11/10/2016 8:48 AM EDT [facility] Creatinine 0.67 0.60 - 1.30 mg/dL 11/10/2016 8:48 AM EDT [facility] Glucose 82 70 - 100 mg/dL 11/10/2016 8:48 AM EDT [facility] Calcium 8.6 8.6 - 10.3 mg/dL 11/10/2016 8:48 AM EDT [facility] Phosphorus 3.2 2.1 - 4.7 mg/dL 11/10/2016 8:48 AM EDT [facility] Albumin 3.1(L) 3.5 - 5.7 g/dL 11/10/2016 8:48 AM EDT [facility] Osmolality, Calculated 287 278 - 305 mOsm/kg 11/10/2016 8:48 AM EDT [facility] eGFR AA CKD-EPI >90 See note. 7 8:48 AM EDT [facility] eGFR NONAA CKD-EPI >90 See note. 11/10/2016 8:48 AM EDT [facility] Plasma specimen (specimen) 11/10/2016 7:37 AM EDT 11/10/2016 8:16 AM EDT Narrative [facility] - 11/10/2016 8:48 AM EDT As of 06/20/2015 the estimated [...] equation to estimate glomerular filtration rate. ??[employer]a [employer] Technician Med. 2009:150(9):604-12 us Migue Lynch MD LAB BLOOD ORDERABLES Final Resul t [facility] [address] [id number], [facility] * (ABNORMAL) CBC (11/10/2016 7:37 AM EDT) WBC 7.5 3.8 - 10.8 10E3/uL 11/10/2016 8:24 AM EDT [facility] RBC 3.16(L) 3.80 - 5.10 10E6/uL 11/10/2016 8:24 AM EDT [facility] Hemoglobin 9.0(L) 11.7 - 15.5 g/dL 11/10/2016 8:24 AM EDT [facility] Hematocrit 26.7(L) 35.0 - 45.0 % 11/10/2016 8:24 AM EDT [facility] MCV 84.4 80.0 - 100.0 fL 11/10/2016 8:24 AM EDT [facility] MCH 28.3 27.0 - 33.0 pg 11/10/2016 8:24 AM EDT [facility] MCHC 33.6 32.0 - 36.0 g/dL 11/10/2016 8:24 AM EDT [facility] RDW 13.6 11.0 - 15.0 % 11/10/2016 8:24 AM EDT [facility] Platelets 211 140 - 400 10E3/uL 11/10/2016 8:24 AM EDT [facility] MPV 7.6 7.5 - 11.5 fL 11/10/2016 8:24 AM EDT [facility] Whole blood specimen (specimen) 11/10/2016 7:37 AM EDT 11/10/2016 8:17 AM EDT us Migue Lynch MD LAB BLOOD ORDERABLES Final Resul t Performing Organization Address [facility]/ZIP Co de Phone Number [facility] [address] * Phosphorus (11/08/2016 3:57 AM EDT) Phosphorus 3.6 2.1 - 4.7 mg/dL 11/08/2016 5:06 AM EDT [facility] Plasma specimen (specimen) 11/08/2016 3:57 AM EDT 11/08/2016 4:38 AM EDT us Migue Lynch MD LAB BLOOD ORDERABLES Final Resul t Performing Organization Address City/[facility] Co de Phone Number [facility] [address] * Magnesium (11/08/2016 3:57 AM EDT) Magnesium 1.8 1.5 - 2.5 mg/dL 11/08/2016 5:06 AM EDT [facility] Plasma specimen (specimen) 11/08/2016 3:57 AM EDT 11/08/2016 4:38 AM EDT us Migue Lynch MD LAB BLOOD ORDERABLES Final Resul t [facility] [address] [id number] * (ABNORMAL) Basic metabolic panel (11/08/2016 3:57 AM EDT) Sodium 139 133 - 146 mmol/L 11/08/2016 5:06 AM EDT [facility] Potassium 4.0 3.5 - 5.3 mmol/L 11/08/2016 5:06 AM EDT [facility] Chloride 110 98 - 110 mmol/L 11/08/2016 5:06 AM EDT [facility] CO2 22 21 - 33 mmol/L 11/08/2016 5:06 AM EDT [facility] Anion Gap 7 3 - 16 mmol/L 11/08/2016 5:06 AM EDT [facility] BUN 8 7 - 25 mg/dL 11/08/2016 5:06 AM EDT [facility] Creatinine 0.67 0.60 - 1.30 mg/dL 11/08/2016 5:06 AM EDT [facility] Glucose 89 70 - 100 mg/dL 11/08/2016 5:06 AM EDT [facility] Calcium 8.0(L) 8.6 - 10.3 mg/dL 11/08/2016 5:06 AM EDT [facility] Osmolality, Calculated 286 278 - 305 mOsm/kg 11/08/2016 5:06 AM EDT [facility] eGFR AA CKD-EPI >90 See note. 7 5:06 AM EDT [facility] eGFR NONAA CKD-EPI >90 See note. 11/08/2016 5:06 AM EDT [facility] Plasma specimen (specimen) 11/08/2016 3:57 AM EDT 11/08/2016 4:38 AM EDT Narrative [facility] - 11/08/2016 5:06 AM EDT As of 06/20/2015 the estimated [...] equation to estimate glomerular filtration rate. ??[employer] Technician Med. 2009:150(9):604-12 Migue Lynch MD LAB BLOOD ORDERABLES Final Resul t [facility] [address] [place] [address], [facility] * (ABNORMAL) CBC (11/08/2016 3:57 AM EDT) WBC 12.6(H) 3.8 - 10.8 10E3/uL 11/08/2016 4:44 AM EDT [facility] RBC 3.57(L) 3.80 - 5.10 10E6/uL 11/08/2016 4:44 AM EDT [facility] Hemoglobin 10.1(L) 11.7 - 15.5 g/dL 11/08/2016 4:44 AM EDT [facility] Hematocrit 30.3(L) 35.0 - 45.0 % 11/08/2016 4:44 AM EDT [facility] MCV 85.0 80.0 - 100.0 fL 11/08/2016 4:44 AM EDT [facility] MCH 28.4 27.0 - 33.0 pg 11/08/2016 4:44 AM EDT [facility] MCHC 33.4 32.0 - 36.0 g/dL 11/08/2016 4:44 AM EDT [facility] RDW 13.4 11.0 - 15.0 % 11/08/2016 4:44 AM EDT [facility] Platelets 271 140 - 400 10E3/uL 11/08/2016 4:44 AM EDT [facility] MPV 8.2 7.5 - 11.5 fL 11/08/2016 4:44 AM EDT [facility] Whole blood specimen (specimen) 11/08/2016 3:57 AM EDT 11/08/2016 4:38 AM EDT us Migue Lynch MD LAB BLOOD ORDERABLES Final Resul t [facility] [address] [place] [address], [facility] * ANESTHESIA EPIDURAL PLACEMENT (SMARTFORM) (11/07/2016 11:58 AM EDT) Narrative Eli Blanco RN - 11/07/2016 11:58 AM EDT Eli Blanco RN ? 11/07/2016 11:58 AM [place] Childress is a 36 y.o. female patient. 1. Generalized abdominal pain ?? 2. Celiac artery stenosis ?? Past Medical History Diagnosis Date ? ? Biliary stenosis ? 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 Migraine ? Anemia ?gestational ? ? Thyroid disease ?nodule Blood pressure 118/77, pulse 65, temperature 97.8 ??F (36.6 ??C), temperature source Oral, resp. rate 16, height 5' 5 (1.651 m), weight 144 lb (65.318 kg), last menstrual period 10/31/2016, SpO2 100 %. Epidural Placement Reason for block: procedure for pain and post-op pain management Diagnosis: ??abdominal pain. Requesting Physician/Surgeon: Keith Patient location during procedure: pre-op holding (SDS) Performed preoperatively. Pre-procedure Pain Score: ?2 Pre procedure BP: ??118/77 Pre procedure HR: ??65 Pre procedure RR: ??16 SpO2 before procedure: ??100% Patient position: sitting Preanesthetic Checklist Completed: patient identified, anesthesia consent given, pre-op evaluation, timeout performed, IV checked, risks and benefits discussed, monitors and equipment checked/attached to patient, patient being monitored and hand hygiene performed Anesthesia risks / alternatives discussed pre-op Questions answered / anesthesia plan accepted and patient agrees to proceed.. Timeout performed at: ??11:44. By: ??Joycelyn HERNANDEZ Timeout verification: ??correct patient, correct procedure, correct site and allergies reviewed. Epidural Prep: ChloraPrep and site prepped and draped Approach: right paramedian Start time: 11/07/2016 11:44 AM Needle Injection technique: JAYNA air and JAYNA saline Needle type: Tuohy Needle gauge: 17 Needle length: 3.5 in (9 cm) Type: ??thoracic epidural Level of placement: ??T7-8 Needle insertion depth: 6 cm Catheter at skin depth: 11 cm Number of attempts: ??1 Test Dose Time: ??11/07/2016 11:55 AM ??Performed after negative aspiration. Test dose: lidocaine 1.5% with Epi 1:200 K 3 mL(s) Catheter secured and sterile dressing applied. Assessment Events: ??blood not aspirated via needle, blood not aspirated via catheter, injection not painful, no injection resistance, no paresthesia with needle placement, no paresthesia with catheter placement, no other event, no positive intravascular test dose, no dural puncture/CSF with needle placement, no dural puncture/CSF with catheter placement and no positive intrathecal test dose Block Effect: ??Successful and No Unexpected/Untoward Events Post-procedure Pain Score: ??0-No pain End time: 11/07/2016 11:58 AM Post procedure BP: ??101/60 Post Procedure HR: ??80 Post Procedure RR: ??19 SpO2 after procedure: ??100% Staffing Anesthesiologist: THUAN BARBOZA Resident/VOCATIONAL REHABILITATION ADMINISTRATOR: VJ ROJAS Performed by: residents Additional Notes The procedure was described in detail and the risks, benefits and alternatives were discussed with the patient (including but not limited to: bleeding, infection, nerve damage, worsening of pain, CSF leak, inability to perform injection, paralysis, seizures, and ) who agreed to proceed. Written by Eli Blanco R.N., acting as a scribe for Dr. Cornell BLANCO 11/07/2016 us Deborah Parker MD PROCEDURE/MINOR SURGICAL ORDERA BLES Final Result * POC HCG Qualitative, Urine (11/07/2016 6:50 AM EDT) Preg Test, POC, Ur Negative Negative 11/07/2016 6:51 AM EDT [facility] Urine specimen (specimen) 11/07/2016 6:50 AM EDT 11/07/2016 6:51 AM EDT us Deborah Parker MD POINT OF CARE TEST ORDERABLES F inal Result [facility] [address] [id number], [facility] documented in this encounter Visit Diagnoses Diagnosis Status post exploratory laparotomy- Primary Other postprocedural status Generalized abdominal pain Abdominal pain, generalized Celiac artery stenosis (CMS-HCC) Stricture of artery documented in this encounter Administered Medications Inactive Administered Medications - up to 3 most recent administrations Medication Order MAR Action Action Date Dose Rate Site acetaminophen (TYLENOL) tablet 650 mg 650 mg, Oral, Every 6 hours PRN, mild pain (NRS 1-3), Fever, Headaches, Starting on 11/09/16 at 2146, Maximum dose of acetaminophen is 4000 mg (4 grams) from all sources in 24 hours. Given 11/10/2016 12:17 PM EDT 650 mg acetaminophen (TYLENOL) tablet 975 mg 975 mg, Oral, call worker to O.R., Give 1 hour pre-op, Starting on Stephanie 11/07/16 at 0639, For 1 dose, Give 1 hour pre-op. Do NOT give if patient has received acetaminophen in the past 6 hours OR if this dose will cause the patient to exceed 4 grams acetaminophen in the past 24 hours. Do NOT give if patient consumes 3 or more alcoholic beverages per day., Pre-op Given 11/07/2016 8:38 AM EDT 975 mg bupivacaine (MARCAINE) 0.0625%/HYDROmorphone (DILAUDID) 0.002% in sodium chloride 0.9% 250mL epidural Epidural, Continuous, Starting on Stephanie 11/07/16 at 1300, For 24 hours, HIGH ALERT MEDICATION. EPIDURAL USE ONLY. CHANGE BAG EVERY 24 HOURS. PLEASE KEEP THE GRAHAM IN PLACE UNTIL THE EPIDURAL IS DISCONTINUED. ENOXAPARIN (LOVENOX) MUST BE HELD FOR FOUR HOURS AFTER PLACEMENT OR REMOVAL OF AN EPIDURAL. Bupivacaine 0.0625% (0.625 mg/mL)/HYDROmorphone 0.002% (0.02 mg/mL) in NSS 0.9% (Total Volume) 250 mL, Infusion Rate (mL/Hour): 8, EPIDURAL Patient Demand Bolus (in mL): 2, Lockout Interval (in minutes): 20, MAX Boluses per Hour: 3 Handoff 11/08/2016 7:46 AM EDT Handoff 11/07/2016 3:46 PM EDT New Bag 11/07/2016 3:15 PM EDT 8 mL/hr 8 mL/hr bupivacaine (MARCAINE) 0.125%/HYDROmorphone (DILAUDID) 0.002% in sodium chloride 0.9% 250 mL epidural Epidural, Continuous, Starting on Fri11/08/16 at 1130, For 24 hours, HIGH ALERT MEDICATION. EPIDURAL USE ONLY. CHANGE BAG EVERY 24 HOURS. PLEASE KEEP THE GRAHAM IN PLACE UNTIL THE EPIDURAL IS DISCONTINUED. ENOXAPARIN (LOVENOX) MUST BE HELD FOR FOUR HOURS AFTER PLACEMENT OR REMOVAL OF AN EPIDURAL. Bupivacaine 0.125% (1.25 mg/mL)/HYDROmorphone 0.002% (0.02 mg/mL) in NSS 0.9% (Total Volume) 250 mL, Infusion Rate (mL/Hour): 6, EPIDURAL Patient Demand Bolus (in mL): 2, Lockout Interval (in minutes): 20, MAX Boluses per Hour: 3 New Bag 11/08/2016 12:20 PM EDT bupivacaine (MARCAINE) 0.125%/HYDROmorphone (DILAUDID) 0.002% in sodium chloride 0.9% 250 mL epidural Epidural, Continuous, Starting on Fri11/08/16 at 1730, For 19 hours, HIGH ALERT MEDICATION. EPIDURAL USE ONLY. CHANGE BAG EVERY 24 HOURS. PLEASE KEEP THE GRAHAM IN PLACE UNTIL THE EPIDURAL IS DISCONTINUED. ENOXAPARIN (LOVENOX) MUST BE HELD FOR FOUR HOURS AFTER PLACEMENT OR REMOVAL OF AN EPIDURAL. Bupivacaine 0.125% (1.25 mg/mL)/HYDROmorphone 0.002% (0.02 mg/mL) in NSS 0.9% (Total Volume) 250 mL, Infusion Rate (mL/Hour): 4, EPIDURAL Patient Demand Bolus (in mL): 2, Lockout Interval (in minutes): 20, MAX Boluses per Hour: 3 Handoff 11/09/2016 7:49 AM EDT Handoff 11/08/2016 7:52 PM EDT Rate/Dose Change 11/08/2016 6:20 PM EDT dextrose 5 % and 0.45 % NaCl with KCl 20 mEq infusion 1000 mL 75 mL/hr, Intravenous, Continuous, Starting on Fri11/08/16 at 0800 New Bag 11/08/2016 9:01 PM EDT 75 mL/hr 75 mL/hr New Bag 11/08/2016 9:31 AM EDT 75 mL/hr 75 mL/hr docusate sodium (COLACE) capsule 100 mg 100 mg, Oral, 2 times daily, First dose on Stephanie 11/07/16 at 2100, Hold for diarrhea or loose stools, Post-op Given 11/10/2016 8:43 AM EDT 100 mg Given 11/09/2016 10:02 PM EDT 100 mg Given 11/09/2016 9:20 AM EDT 100 mg fentaNYL (SUBLIMAZE) injection 25 mcg 25 mcg, Intravenous, Every 5 min PRN, moderate pain (NRS-4-6), and POSS <3, Starting on Stephanie 11/07/16 at 1220, May alternate fentaNYL with MORPHine or HYDROmorphone (if ordered), as needed for uncontrolled pain. May give in increments of 12.5 mcg doses every 5 minutes for patient somnolence. If POSS score is 4 call physician. May administer in PACU or Prior to Discharge. HIGH ALERT MEDICATION, PACU Given 11/07/2016 3:58 PM EDT 25 mcg fentaNYL (SUBLIMAZE) injection 50 mcg 50 mcg, Intravenous, Every 5 min PRN, severe pain (NRS 7-10), and POSS <3, Starting on Stephanie 11/07/16 at 1220, May alternate fentaNYL with MORPHine or HYDROmorphone (if ordered), as needed for uncontrolled pain. May give in increments of 12.5 mcg doses every 5 minutes for patient somnolence. If POSS score is 4 call physician. May administer in PACU or Prior to Discharge. HIGH ALERT MEDICATION, PACU Given 11/07/2016 4:15 PM EDT 50 mcg gabapentin (NEURONTIN) capsule 900 mg 900 mg, Oral, Once, On Stephanie 11/07/16 at 0700, For 1 dose, Pre-op Given 11/07/2016 8:38 AM EDT 900 mg heparin (porcine) injection 5,000 Units 5,000 Units, Subcutaneous, Every 8 hours, First dose on Stephanie 11/07/16 at 2130, For 4 doses Given 11/08/2016 8:53 PM EDT 5,000 Units Abdominal Tissue Given 11/08/2016 1:48 PM EDT 5,000 Units A bdominal Tissue Given 11/08/2016 5:36 AM EDT 5,000 Units L eft Arm heparin (porcine) injection 5,000 Units 5,000 Units, Subcutaneous, Every 8 hours, First dose (after last reorder) on 11/09/16 at 1200, For 4 days Given 11/10/2016 12:17 PM EDT 5,000 Units Left Arm Given 11/10/2016 4:04 AM EDT 5,000 Units A bdominal Tissue Given 11/09/2016 10:02 PM EDT 5,000 Units Left Arm HYDROmorphone (DILAUDID) injection Syrg 0.4 mg 0.4 mg, Intravenous, Every 5 min PRN, moderate pain (NRS-4-6), and POSS <3, Starting on Stephanie 11/07/16 at 1220, May alternate HYDROmorphone with fentaNYL (if ordered) as needed for uncontrolled pain. If POSS score is 4 call physician. May administer in PACU or Prior to Discharge., PACU Given 11/07/2016 4:22 PM EDT 0.4 mg HYDROmorphone (DILAUDID) injection Syrg 0.5 mg 0.5 mg, Intravenous, Every 4 hours PRN, moderate pain (NRS-4-6), Starting on 11/09/16 at 1125, If on IV and PO pain medications, use IV if patient cannot tolerate oral. Given 11/09/2016 11:15 AM EDT 0.5 mg HYDROmorphone (DILAUDID) injection Syrg 0.6 mg 0.6 mg, Intravenous, Every 5 min PRN, severe pain (NRS 7-10), and POSS <3, Starting on Stephanie 11/07/16 at 1220, May alternate HYDROmorphone with fentaNYL (if ordered) as needed for uncontrolled pain. If POSS score is 4 call physician. May administer in PACU or Prior to Discharge., PACU Given 11/07/2016 4:58 PM EDT 0.6 mg Given 11/07/2016 4:09 PM EDT 0.6 mg HYDROmorphone (DILAUDID) injection Syrg 1 mg 1 mg, Intravenous, Every 4 hours PRN, severe pain (NRS 7-10), Starting on 11/09/16 at 1430, If on IV and PO pain medications, use IV if patient cannot tolerate oral. Given 11/09/2016 7:06 PM EDT 1 mg Given 11/09/2016 3:11 PM EDT 1 mg ketorolac (TORADOL) injection 15 mg 15 mg, Intravenous, Every 8 hours, First dose on 11/09/16 at 1900, For 4 days Given 11/09/2016 7:06 PM EDT 15 mg ketorolac (TORADOL) injection 15 mg 15 mg, Intravenous, Every 8 hours, First dose (after last modification) on 11/10/16 at 0300, For 1 dose Given 11/10/2016 4:04 AM EDT 15 mg lactated Ringers infusion 125 mL/hr, Intravenous, Continuous, Starting on Stephanie 11/07/16 at 1530, Post-op New Bag 11/08/2016 1:56 AM EDT 125 mL/hr 125 mL /hr New Bag 11/07/2016 6:31 PM EDT 125 mL/hr 125 mL/hr ondansetron (ZOFRAN) 4 mg/2 mL injection 4 mg 4 mg, Intravenous, Every 8 hours PRN, Nausea, for epidural, Starting on Stephanie 11/07/16 at 1229, For 24 hours Given 11/08/2016 9:55 AM EDT 4 mg Given 11/07/2016 9:08 PM EDT 4 mg ondansetron (ZOFRAN) 4 mg/2 mL injection 4 mg 4 mg, Intravenous, Every 8 hours PRN, Nausea, for epidural, Starting on 11/08/16 at 1123, For 24 hours Given 11/08/2016 9:06 PM EDT 4 mg ondansetron (ZOFRAN) 4 mg/2 mL injection 4 mg 4 mg, Intravenous, Every 6 hours PRN, Nausea and/or Vomiting, Starting on 11/09/16 at 1851 Given 11/09/2016 6:32 PM EDT 4 mg ondansetron (ZOFRAN) 4 mg/2 mL injection Starting on 11/09/16 at 1829, For 1 dose, DEJUAN DENNEY: alyssanahid override oxyCODONE (ROXICODONE) immediate release tablet 10 mg 10 mg, Oral, Every 4 hours PRN, severe pain (NRS 7-10), Starting on Fri11/08/16 at 0733 Given 11/10/2016 6:03 PM EDT 10 mg Given 11/10/2016 2:00 PM EDT 10 mg Given 11/10/2016 8:42 AM EDT 10 mg oxyCODONE (ROXICODONE) immediate release tablet 5 mg 5 mg, Oral, Every 4 hours PRN, moderate pain (NRS-4-6), Starting on Fri11/08/16 at 0733 Given 11/09/2016 6:05 AM EDT 5 mg pantoprazole (PROTONIX) EC tablet 40 mg 40 mg, Oral, Daily6, First dose on Fri11/08/16 at 0600, Therapeutic Interchange for omeprazole 20mg Oral = pantoprazole 40mg Oral Given 11/10/2016 4:0 4 AM EDT 40 mg Given 11/09/2016 6:03 AM EDT 40 mg Given 11/08/2016 5:36 AM EDT 40 mg polyethylene glycol (MIRALAX) packet 17 g 17 g, Oral, Daily, First dose on Fri11/08/16 at 0900 Given 11/10/2016 8:43 AM EDT 17 g Given 11/09/2016 9:20 AM EDT 17 g Given 11/08/2016 9:31 AM EDT 17 g proMETHazine (PHENERGAN) injection 12.5 mg 12.5 mg, IV PUSH, Every 4 hours PRN, Nausea and/or Vomiting, for epidural. If no improvement, call AIPS., Starting on Fri11/08/16 at 1123, IRRITANT IV Push administration REQUIRES dilution with 10 mL Saline Given 11/08/2016 1:48 PM EDT 12.5 mg scopolamine (TRANSDERM-SCOP) 1.5 mg (1 mg over 3 days) 1 patch 1 patch, Transdermal, Every 72 hours, First dose on Fri11/07/16 at 0700, Pre-op Patch Applied 11/07/2016 8:38 AM EDT 1 patch Behind Left Ear sodium chloride 0.9 % flush 10 mL 10 mL, Intravenous, Every Shift, First dose on Stephanie 11/07/16 at 2100, Post-op Given 11/10/2016 12:17 PM EDT 10 mLs Given 11/10/2016 4:05 AM EDT 10 mLs Given 11/09/2016 10:02 PM EDT 10 mLs topiramate (TOPAMAX) sprinkle capsule 25 mg 25 mg, Oral, 2 times daily, First dose on Stephanie 17 at 2100 Given 11/10/2016 8:43 AM EDT 25 mg Given 11/09/2016 10:02 PM EDT 25 mg Given 11/09/2016 9:20 AM EDT 25 mg documented in this encounter Active and Recently Administered Medications Times are shown in EDT. Scheduled Medication Order 11/08/2016 11/09/2016 11/10/2016 docusate sodium (COLACE) capsule 100 mg 100 mg, Oral, 2 times daily, First dose on Stephanie 17 at 2100, Hold for diarrhea or loose stools, Post-op 0931 (Given - Provider: Dejuan Denney RN)205 (Given - Provider: Ronel Wilson RN) 0920 (Given - Provider: Dejuan Denney RN)2202 (Given - Provider: Tanya Copeland RN) 0843 (Given - Provider: Dejuan Denney RN) heparin (porcine) injection 5,000 Units (COMPLETED) 5,000 Units, Subcutaneous, Every 8 hours, First dose on Stephanie 11/07/16 at 2130, For 4 doses 0536 (Given - Provider: Lucy Draper RN)1348 (Given - Provider: Dejuan Denney RN)2052 (Given - Provider: Ronel Wilson RN) heparin (porcine) injection 5,000 Units (CANCELED) 5,000 Units, Subcutaneous, Every 8 hours, First dose (after last reorder) on 11/09/16 at 1200, For 4 days 1112 (Not Given - Provider: Dejuan Denney RN - Reason: Contraindicated - Comment: epidural removed around 0900, will give next dose)220 (Given - Provider: Tanya Copeland RN) 0404 (Given - Provider: Tanya Copeland RN)1217 (Given - Provider: Dejuan Denney RN) ketorolac (TORADOL) injection 15 mg (CANCELED) 15 mg, Intravenous, Every 8 hours, First dose on Fri11/09/16 at 1900, For 4 days 1906 (Given - Provider: Dejuan Denney RN) ketorolac (TORADOL) injection 15 mg (COMPLETED) 15 mg, Intravenous, Every 8 hours, First dose (after last modification) on Fri11/10/16 at 0300, For 1 dose 0404 (Given - Provider: Tanya Copeland RN) pantoprazole (PROTONIX) EC tablet 40 mg (CANCELED) 40 mg, Oral, Daily6, First dose on Fri11/08/16 at 0600, Therapeutic Interchange for omeprazole 20mg Oral = pantoprazole 40mg Oral 0536 (Given - Provider: Lucy Draper RN) 0603 (Given - Provider: Ronel Wilson RN) 0404 (Given - Provider: Tanya Copeland RN) polyethylene glycol (MIRALAX) packet 17 g 17 g, Oral, Daily, First dose on Fri11/08/16 at 0900 0931 (Given - Provider: Dejuan Denney RN) 0920 (Given - Provider: Dejuan Denney RN) 0843 (Given - Provider: Dejuan Denney RN) sodium chloride 0.9 % flush 10 mL (CANCELED)(Linked Group 1) 10 mL, Intravenous, Every Shift, First dose on Stephanie 11/07/16 at 2100, Post-op 0537 (Given - Provider: Lucy Draper RN)1219 (Given - Provider: Dejuan Denney RN)205 (Given - Provider: Ronel Wilson RN) 06 (Given - Provider: Ronel Wilson, IVETTE)1512 (Given - Provider: Dejuan Denney, IVETTE)2202 (Given - Provider: Tanya Copeland RN) 0405 (Given - Provider: Tanya Copeland RN)1217 (Given - Provider: Dejuan Denney RN) topiramate (TOPAMAX) sprinkle capsule 25 mg (CANCELED) 25 mg, Oral, 2 times daily, First dose on Stephanie 11/07/16 at 2100 0931 (Given - Provider: Dejuan Denney RN)205 (Given - Provider: Ronel Wilson RN) 0920 (Given - Provider: Dejuan Denney RN)220 (Given - Provider: Tanya Copeland RN) 0840 (Given - Provider: Dejuan Denney RN) Continuous Medication Order 11/08/2016 11/09/2016 11/10/2016 bupivacaine (MARCAINE) 0.0625%/HYDROmorphone (DILAUDID) 0.002% in sodium chloride 0.9% 250mL epidural (CANCELED) Epidural, Continuous, Starting on Stephanie 11/07/16 at 1300, For 24 hours, HIGH ALERT MEDICATION. EPIDURAL USE ONLY. CHANGE BAG EVERY 24 HOURS. PLEASE KEEP THE GRAHAM IN PLACE UNTIL THE EPIDURAL IS DISCONTINUED. ENOXAPARIN (LOVENOX) MUST BE HELD FOR FOUR HOURS AFTER PLACEMENT OR REMOVAL OF AN EPIDURAL. Bupivacaine 0.0625% (0.625 mg/mL)/HYDROmorphone 0.002% (0.02 mg/mL) in NSS 0.9% (Total Volume) 250 mL, Infusion Rate (mL/Hour): 8, EPIDURAL Patient Demand Bolus (in mL): 2, Lockout Interval (in minutes): 20, MAX Boluses per Hour: 3 0746 (Handoff - Provider: Lucy Draper RN) bupivacaine (MARCAINE) 0.125%/HYDROmorphone (DILAUDID) 0.002% in sodium chloride 0.9% 250 mL epidural (CANCELED) Epidural, Continuous, Starting on 11/08/16 at 1130, For 24 hours, HIGH ALERT MEDICATION. EPIDURAL USE ONLY. CHANGE BAG EVERY 24 HOURS. PLEASE KEEP THE GRAHAM IN PLACE UNTIL THE EPIDURAL IS DISCONTINUED. ENOXAPARIN (LOVENOX) MUST BE HELD FOR FOUR HOURS AFTER PLACEMENT OR REMOVAL OF AN EPIDURAL. Bupivacaine 0.125% (1.25 mg/mL)/HYDROmorphone 0.002% (0.02 mg/mL) in NSS 0.9% (Total Volume) 250 mL, Infusion Rate (mL/Hour): 6, EPIDURAL Patient Demand Bolus (in mL): 2, Lockout Interval (in minutes): 20, MAX Boluses per Hour: 3 1220 (New Bag - Provider: Dejuan Denney RN) bupivacaine (MARCAINE) 0.125%/HYDROmorphone (DILAUDID) 0.002% in sodium chloride 0.9% 250 mL epidural (CANCELED) Epidural, Continuous, Starting on Fri11/08/16 at 1730, For 19 hours, HIGH ALERT MEDICATION. EPIDURAL USE ONLY. CHANGE BAG EVERY 24 HOURS. PLEASE KEEP THE GRAHAM IN PLACE UNTIL THE EPIDURAL IS DISCONTINUED. ENOXAPARIN (LOVENOX) MUST BE HELD FOR FOUR HOURS AFTER PLACEMENT OR REMOVAL OF AN EPIDURAL. Bupivacaine 0.125% (1.25 mg/mL)/HYDROmorphone 0.002% (0.02 mg/mL) in NSS 0.9% (Total Volume) 250 mL, Infusion Rate (mL/Hour): 4, EPIDURAL Patient Demand Bolus (in mL): 2, Lockout Interval (in minutes): 20, MAX Boluses per Hour: 3 1820 (Rate/Dose Change - Provider: Dejuan Denney RN)1952 (Handoff - Provider: Dejuan Denney, RN) 0749 (Handoff - Provider: Dejuan Denney, RN) dextrose 5 % and 0.45 % NaCl with KCl 20 mEq infusion 1000 mL (CANCELED) 75 mL/hr, Intravenous, Continuous, Starting on 11/08/16 at 0800 0931 (New Bag - Provider: Dejuan Denney RN)2101 (New Bag - Provider: Ronel Wilson RN) lactated Ringers infusion (CANCELED) 125 mL/hr, Intravenous, Continuous, Starting on Stephanie 11/07/16 at 1530, Post-op 0156 (New Bag - Provider: Lucy Draper RN) PRN Medication Order 11/08/2016 11/09/2016 11/10/2016 acetaminophen (TYLENOL) tablet 650 mg (CANCELED) 650 mg, Oral, Every 6 hours PRN, mild pain (NRS 1-3), Fever, Headaches, Starting on 11/09/16 at 2146, Maximum dose of acetaminophen is 4000 mg (4 grams) from all sources in 24 hours. 1217 (Given - Provider: Dejuan Denney RN) HYDROmorphone (DILAUDID) injection Syrg 0.5 mg (CANCELED) 0.5 mg, Intravenous, Every 4 hours PRN, moderate pain (NRS-4-6), Starting on 11/09/16 at 1125, If on IV and PO pain medications, use IV if patient cannot tolerate oral. 1115 (Given - Provider: Dejuan Denney RN) HYDROmorphone (DILAUDID) injection Syrg 1 mg (CANCELED)(Linked Group 2) 1 mg, Intravenous, Every 4 hours PRN, severe pain (NRS 7-10), Starting on 11/09/16 at 1430, If on IV and PO pain medications, use IV if patient cannot tolerate oral. 1511 (Given - Provider: Dejuan Denney RN)1906 (Given - Provider: Dejuan Denney RN) ondansetron (ZOFRAN) 4 mg/2 mL injection 4 mg (CANCELED) 4 mg, Intravenous, Every 8 hours PRN, Nausea, for epidural, Starting on Stephanie 11/07/16 at 1229, For 24 hours 0955 (Given - Provider: Dejuan Denney RN) ondansetron (ZOFRAN) 4 mg/2 mL injection 4 mg (CANCELED) 4 mg, Intravenous, Every 8 hours PRN, Nausea, for epidural, Starting on 11/08/16 at 1123, For 24 hours 2106 (Given - Provider: Ronel Wilson RN) ondansetron (ZOFRAN) 4 mg/2 mL injection 4 mg (CANCELED) 4 mg, Intravenous, Every 6 hours PRN, Nausea and/or Vomiting, Starting on 11/09/16 at 1851 1832 (Given - Provider: Dejuan Denney RN) oxyCODONE (ROXICODONE) immediate release tablet 10 mg(Linked Group 3) 10 mg, Oral, Every 4 hours PRN, severe pain (NRS 7-10), Starting on 11/08/16 at 0733 0605 (See Alternative - Provider: Ronel Wilson RN)0920 (Given - Provider: Dejuan Denney RN)1343 (Given - Provider: Dejuan Denney RN)1739 (Given - Provider: Dejuan Denney RN)2202 (Given - Provider: Tanya Copeland RN) 0403 (Given - Provider: Tanya Copeland RN)0842 (Given - Provider: Dejuan Denney RN)1400 (Given - Provider: Dejuan Denney RN)1803 (Given - Provider: Dejuan eDnney RN) oxyCODONE (ROXICODONE) immediate release tablet 5 mg (CANCELED)(Linked Group 3) 5 mg, Oral, Every 4 hours PRN, moderate pain (NRS-4-6), Starting on Fri11/08/16 at 0733 0605 (Given - Provider: Ronel Wilson, IVTETE)0920 (See Alternative - Provider: Dejuan Denney RN)1343 (See Alternative - Provider: Dejuan Denney RN)1739 (See Alternative - Provider: Dejuan Denney RN)2202 (See Alternative - Provider: Tanya Copeland RN) 0403 (See Alternative - Provider: Tanya Copeland RN)0842 (See Alternative - Provider: Dejuan Denney RN)1400 (See Alternative - Provider: Dejuan Denney RN)1803 (See Alternative - Provider: Dejuan Denney RN) proMETHazine (PHENERGAN) injection 12.5 mg (CANCELED)(Linked Group 4) 12.5 mg, IV PUSH, Every 4 hours PRN, Nausea and/or Vomiting, for epidural. If no improvement, call AIPS., Starting on Fri11/08/16 at 1123, IRRITANT IV Push administration REQUIRES dilution with 10 mL Saline 1348 (Given - Provider: Dejuan Denney RN) Linked Groups Order Group 1: Place saline lock (CANCELED) STAT, Once, On Stephanie 11/07/16 at 1745, For 1 occurrence, Post-op And sodium chloride 0.9 % flush 10 mL (CANCELED)Jump to med 10 mL, Intravenous, Every Shift, First dose on Stephanie 11/07/16 at 2100, Post-op Group 2: HYDROmorphone (DILAUDID) injection Syrg 0.5 mg (CANCELED) 0.5 mg, Intravenous, Every 4 hours PRN, moderate pain (NRS-4-6), Starting on 11/09/16 at 1430, If on IV and PO pain medications, use IV if patient cannot tolerate oral. Or HYDROmorphone (DILAUDID) injection Syrg 1 mg (CANCELED)Jump to med 1 mg, Intravenous, Every 4 hours PRN, severe pain (NRS 7-10), Starting on 11/09/16 at 1430, If on IV and PO pain medications, use IV if patient cannot tolerate oral. Group 3: oxyCODONE (ROXICODONE) immediate release tablet 5 mg (CANCELED)Jump to med 5 mg, Oral, Every 4 hours PRN, moderate pain (NRS-4-6), Starting on Fri11/08/16 at 0733 Or oxyCODONE (ROXICODONE) immediate release tablet 10 mgJump to med 10 mg, Oral, Every 4 hours PRN, severe pain (NRS 7-10), Starting on Fri11/08/16 at 0733 Group 4: proMETHazine (PHENERGAN) injection 6.25 mg (CANCELED) 6.25 mg, IV PUSH, Every 4 hours PRN, Nausea and/or Vomiting, for epidural. If no improvement, call AIPS., Starting on Fri11/08/16 at 1123, IRRITANT IV Push administration REQUIRES dilution with 10 mL Saline Or proMETHazine (PHENERGAN) injection 12.5 mg (CANCELED)Jump to med 12.5 mg, IV PUSH, Every 4 hours PRN, Nausea and/or Vomiting, for epidural. If no improvement, call AIPS., Starting on Fri11/08/16 at 1123, IRRITANT IV Push administration REQUIRES dilution with 10 mL Saline documented in this encounter Care Teams Edge Blacker Relationship Specialty Start Date End Date Marlo Rubio MD PCP - General Family Medicine 10/09/16 documented as of this encounter
--- OUTSIDE RECORDS SUMMARY | 2024-03-14 18:26 | XMS_ITS | Encounter Summary ---
Author Organization [facility] Address [address] [place] [id number] Care Team Providers Care Warehouse Worker Name Role Phone Marlo Rubio MD [...] release of HIV test results or diagnoses. [id number] Reason for Referral * Surgical (Routine) - Closed Specialty Diagnoses / Procedures Referred By Amalia tuttle Referred To Contact Radiology Diagnoses Difficult intravenous access Procedures IR PICC Right wo port pum > 5 years AMB Referral to Interventional Radiology (BODY IR) RI INSERT PICC W/O SUB-Q PORT CHG FLUOROGUIDE CNTRL KRISTOPHER ACCESS,PLACE,REPLACE,REMOVE Deborah Parker MD [address] [facility] [address] [place] [address] Phone: tel: fax: Referral ID Status Reason Start Date Expiration Date Visits Re quested Visits Authorized [id number] Closed 10/10/2016 04/08/2017 1 1 Encounter Details Date Type Department Care Team (Late st Contact Info) Description 10/10/2016 Orders Only [facility] Transplant Surgery at [facility] [address] [facility] [address] [place] [id number] Deborah Parker MD [address] [facility] [address] [place] [address] Difficult intravenous access (Primary Dx) Social History Tobacco Use Types [...] as of this encounter Results * IR PICC Right [...] Kenn Drake at 10/14/2016 10:21 AM EDT Deborah Parker MD IMG IR ORDERABLES Final Result documented in this encounter Visit Diagnoses Diagnosis Difficult intravenous access- Primary Difficult intravenous access documented in this encounter Care Teams Warehouse Worker Relationship Specialty Start Date End Date Marlo Rubio MD PCP - General Family Medicine 10/09/16 documented as of this encounter
--- OUTSIDE RECORDS SUMMARY | 2024-03-14 18:26 | XMS_ITS | Encounter Summary ---
Author Organization [facility] Address [address] [place] [address] Care Team Providers Care Furnace Liner Name Role Phone Marlo Rubio MD Primary [...] release of HIV test results or diagnoses. [id number] Reason for Referral * Physician/LUCERO (Routine) - Closed Specialty Diagnoses / Procedures Referred By Contact Referred To Contact Pre-Admission Testing Diagnoses Generalized abdominal pain Celiac artery stenosis ([facility]) Deborah Parker MD [address] [facility] [address] [place] [phone] Phone: tel: fax: [facility] Perioperative Care at [address] [address] Phone: tel: fax: Referral ID Status Reason Start Date Expiration Date Visits Re quested Visits Authorized [id number] Closed 10/24/2016 04/22/2017 1 1 * Surgical (Routine) - Closed Specialty Diagnoses / Procedures Referred By Contac t Referred To Contact Surgery Diagnoses Generalized abdominal pain Celiac artery stenosis (CMS-HCC) Procedures Case request operating room: Exploratory Laparotomy, Median Arcuate Ligament Division AK DIAPHRAGM SURG PROC UNLISTED AK REVISION OF DIAPHRAGM AK RESECT DIAPHRAM,SIMPLE REPAIR Deborah Parker MD [address] [facility] [address] [place] [address] Phone: tel: fax: Referral ID Status Reason Start Date Expiration Date Visits Re quested Visits Authorized [id number] Closed 10/24/2016 10/29/2016 1 1 Encounter Details Date Type Department Care Team (Late st Contact Info) Description 10/24/[address] [facility] Transplant Surgery at [facility] [address] [facility] [address] [place], [place] [id number] Deborah Parker MD [address] [facility] [address] [place] [address] Generalized abdominal pain (Primary Dx); Celiac artery stenosis (CMS-HCC) Social History Tobacco Use Types Packs/Day Years [...] as of this encounter Plan of Treatment Scheduled Referrals Name Type Priority Associated Diagnoses Order Schedule LOCK TECHNICIAN Visit with Anesthesiologist (C) Outpatient Referral Routine Generalized abdominal pain Celiac artery stenosis (CMS-HCC) Ordered: 10/24/2016 documented as of this encounter Results * APTT, No Anticoagulant (11/04/2016 10:38 AM EDT) aPTT 31.1 25.5 - 35.0 seconds 11/04/2016 11:08 AM EDT [facility] Plasma specimen (specimen) 11/04/2016 10:38 AM EDT 11/04/2016 10:49 AM EDT Deborah Parker MD LAB BLOOD ORDERABLES Final Resu lt Performing Organization Address [facility] de Phone Number [facility] [address] [facility]. [address] * Protime-INR (11/04/2016 10:38 AM EDT) Protime 13.8 11.6 - 14.4 seconds 11/04/2016 11:07 AM EDT [facility] INR 1.0 0.9 - 1.1 11/04/2016 11:07 AM EDT [facility] Comment: RECOMMENDED THERAPEUTIC RANGES USING INR : ?Stable oral anticoagulant therapy: ? 2.0 - 3.0 ?Mechanical prosthetic heart valve: ? 2.5 - 3.5 ?Recurrent acute myocardial infarction: ? 2.5 - 3.5 Plasma specimen (specimen) 11/04/2016 10:38 AM EDT 11/04/2016 10:49 AM EDT Deborah Parker MD LAB BLOOD ORDERABLES Final Resu lt Performing Organization Address [facility] de Phone Number [facility] [address] [facility]. [address] * Differential (11/04/2016 10:38 AM EDT) Neutrophils Relative 58.8 40.0 - 80.0 % 11/04/2016 10:57 AM EDT [facility] Lymphocytes Relative 28.2 15.0 - 45.0 % 11/04/2016 10:57 AM EDT [facility] Monocytes Relative 6.8 0.0 - 12.0 % 11/04/2016 10:57 AM EDT [facility] Eosinophils Relative 5.8 0.0 - 8.0 % 11/04/2016 10:57 AM EDT [facility] Basophils Relative 0.4 0.0 - 1.0 % 11/04/2016 10:57 AM EDT [facility] nRBC 0 0 - 0 /100 WBC 11/04/2016 10:57 AM EDT [facility] Neutrophils Absolute 3,940 1,500 - 7,800 /uL 11/04/2016 10:57 AM EDT [facility] Lymphocytes Absolute 1,889 850 - 3,900 /uL 11/04/2016 10:57 AM EDT [facility] Monocytes Absolute 456 200 - 950 /uL 11/04/2016 10:57 AM EDT [facility] Eosinophils Absolute 389 15 - 500 /uL 11/04/2016 10:57 AM EDT [facility] Basophils Absolute 27 0 - 200 /uL 11/04/2016 10:57 AM EDT [facility] Whole blood specimen (specimen) 11/04/2016 10:38 AM EDT 11/04/2016 10:49 AM EDT us Deborah Parker MD LAB BLOOD ORDERABLES Final Resu lt [facility] [address] [place] [address], [facility] * (ABNORMAL) CBC (11/04/2016 10:38 AM EDT) WBC 6.7 3.8 - 10.8 10E3/uL 11/04/2016 10:57 AM EDT [facility] RBC 4.18 3.80 - 5.10 10E6/uL 11/04/2016 10:57 AM EDT [facility] Hemoglobin 12.1 11.7 - 15.5 g/dL 11/04/2016 10:57 AM EDT [facility] Hematocrit 34.9(L) 35.0 - 45.0 % 11/04/2016 10:57 AM EDT [facility] MCV 83.5 80.0 - 100.0 fL 11/04/2016 10:57 AM EDT [facility] MCH 29.0 27.0 - 33.0 pg 11/04/2016 10:57 AM EDT [facility] MCHC 34.7 32.0 - 36.0 g/dL 11/04/2016 10:57 AM EDT [facility] RDW 13.6 11.0 - 15.0 % 11/04/2016 10:57 AM EDT [facility] Platelets 331 140 - 400 10E3/uL 11/04/2016 10:57 AM EDT [facility] MPV 7.6 7.5 - 11.5 fL 11/04/2016 10:57 AM EDT [facility] Whole blood specimen (specimen) 11/04/2016 10:38 AM EDT 11/04/2016 10:49 AM EDT us Deborah Parker MD LAB BLOOD ORDERABLES Final Resu lt Performing Organization Address [facility] Co de Phone Number [facility] [address] [place] [address] * Antibody screen (11/04/2016 10:38 AM EDT) Antibody Screen Negative 11/04/2016 1:20 PM EDT [facility] Blood specimen (specimen) 11/04/2016 10:38 AM EDT 11/04/2016 10:56 AM EDT Narrative [facility] - 11/04/2016 1:25 PM EDT Testing performed by [facility] Transfusion Service us Deborah Parker MD BLOOD BANK TEST ORDERABLES Antonia l Result Performing Organization Address [facility] Co de Phone Number [facility] [address] [place] [address]. [address] * ABO/Rh (11/04/2016 10:38 AM EDT) ABO Grouping O 11/04/2016 1:20 PM EDT [facility] Rh Type Positive 11/04/2016 1:20 PM EDT [facility] Blood specimen (specimen) 11/04/2016 10:38 AM EDT 11/04/2016 10:56 AM EDT us Deborah Parker MD BLOOD BANK TEST ORDERABLES Antonia l Result Performing Organization Address [facility]/ZIP Co de Phone Number [facility] [address] [id number], [facility] * (ABNORMAL) Renal Function Panel w/EGFR (11/04/2016 10:38 AM EDT) Sodium 142 133 - 146 mmol/L 11/04/2016 11:20 AM EDT [facility] Potassium 3.8 3.5 - 5.3 mmol/L 11/04/2016 11:20 AM EDT [facility] Chloride 111(H) 98 - 110 mmol/L 11/04/2016 11:20 AM EDT [facility] CO2 24 21 - 33 mmol/L 11/04/2016 11:20 AM EDT [facility] Anion Gap 7 3 - 16 mmol/L 11/04/2016 11:20 AM EDT [facility] BUN 8 7 - 25 mg/dL 11/04/2016 11:20 AM EDT [facility] Creatinine 0.73 0.60 - 1.30 mg/dL 11/04/2016 11:20 AM EDT [facility] Glucose 71 70 - 100 mg/dL 11/04/2016 11:20 AM EDT [facility] Calcium 9.0 8.6 - 10.3 mg/dL 11/04/2016 11:20 AM EDT [facility] Phosphorus 3.4 2.1 - 4.7 mg/dL 11/04/2016 11:20 AM EDT [facility] Albumin 3.8 3.5 - 5.7 g/dL 11/04/2016 11:20 AM EDT [facility] Osmolality, Calculated 291 278 - 305 mOsm/kg 11/04/2016 11:20 AM EDT [facility] eGFR AA CKD-EPI >90 See note. 7 11:20 AM EDT [facility] eGFR NONAA CKD-EPI >90 See note. 11/04/2016 11:20 AM EDT [facility] Plasma specimen (specimen) 11/04/2016 10:38 AM EDT 11/04/2016 10:49 AM EDT Narrative [facility] - 11/04/2016 11:20 AM EDT As [...] equation to estimate glomerular filtration rate. ??Alexa Senior Hr Manager Med. 2009:150(9):604-12 us Deborah Parker MD LAB BLOOD ORDERABLES Final Resu lt Performing Organization Address City/[facility]/ZIP Co de Phone Number [facility] [address] [facility]. [address] * Hepatic Function Panel (11/04/2016 10:38 AM EDT) Total Bilirubin 0.3 0.0 - 1.5 mg/dL 11/04/2016 11:20 AM EDT [facility] Bilirubin, Direct 0.04 0.00 - 0.40 mg/dL 11/04/2016 11:20 AM EDT [facility] AST 14 13 - 39 U/L 11/04/2016 11:20 AM EDT [facility] ALT 10 7 - 52 U/L 11/04/2016 11:20 AM EDT [facility] Alkaline Phosphatase 59 36 - 125 U/L 11/04/2016 11:20 AM EDT [facility] Total Protein 6.8 6.4 - 8.9 g/dL 11/04/2016 11:20 AM EDT [facility] Albumin 3.8 3.5 - 5.7 g/dL 11/04/2016 11:20 AM EDT [facility] Bilirubin, Indirect 0.26 0.00 - 1.10 mg/dL 11/04/2016 11:20 AM EDT [facility] Plasma specimen (specimen) 11/04/2016 10:38 AM EDT 11/04/2016 10:49 AM EDT us Deborah Parker MD LAB BLOOD ORDERABLES Final Resu lt Performing Organization Address City/[facility]/ZIP Co de Phone Number [facility] [address] [facility]. [address] documented in this encounter Visit Diagnoses Diagnosis Generalized abdominal pain- Primary Abdominal pain, generalized Celiac artery stenosis (CMS-HCC) Stricture of artery Generalized abdominal pain- Primary Abdominal pain, generalized Celiac artery stenosis (CMS-HCC) Stricture of artery Congenital biliary atresia documented in this encounter Care Teams Furnace Liner Relationship Specialty Start Date End Date Marlo Rubio MD PCP - General Family Medicine 10/09/16 documented as of this encounter
--- OUTSIDE RECORDS SUMMARY | 2024-03-14 18:26 | XMS_ITS | Encounter Summary ---
Author Organization [facility] Address [address] [place] [address] Care Team Providers Care Supervisor Frame Sample And Pattern Name Role Phone Marlo Rubio MD Primary [...] release of HIV test results or diagnoses. [id number] Reason for Visit * Reason Comments New Patient Visit/ Consultation Encounter Details Date Type Department Care Team (Late st Contact Info) Description 11/20/2016 8:30 AM EDT Office Visit [facility] Hepatobiliary at [address] [phone] Aaron Rocha MD [address] [place] [phone] Dyspepsia (Primary Dx); Abdominal pain, unspecified location Social History Tobacco Use Types Packs/Day Years [...] Sign Reading Time Taken Comments Blood Pressure 113/92 11/20/2016 8:27 AM EDT Pulse 71 11/20/2016 8:27 AM EDT Temperature 36 ??C (96.8 ??F) 11/20/2016 8:27 AM EDT Respiratory Rate 18 11/20/2016 8:27 AM EDT Oxygen Saturation 100% 11/20/2016 8:27 AM EDT Inhaled Oxygen Concentration 100% 11/20/2016 8 :27 AM EDT Weight 64.4 kg (142 lb) 11/20/2016 8:27 AM EDT Height 165.1 cm (5' 5 ) 11/20/2016 8:27 AM EDT Body Mass Index 23.63 11/20/2016 8:27 AM EDT documented in this encounter Patient Instructions * Patient Instructions* Arias Quiñonez MD - 11/20/2016 8:52 AM EDT 1.) No role for EGD 2.) We will start you on an acid medication. Please take omperazole 40 mg omeprazole once a day 3.) We will check our blood to see how your anemia is doing. We will check ferritin, iron, Vitamin B12 level 4.) No need to follow up documented in this encounter Progress Notes * Aaron Rocha MD - 11/20/2016 8:11 AM EDT No chief complaint on file. Referring physician: Dr. Deborah Parker CC: Abdominal pain History of Present Illness: The patient is a 36 y/o F [...] anemia (hgb 9.0) w/ MCV of 84.4. 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 Medications: Current outpatient prescriptions: ??? dicyclomine (BENTYL) 20 mg tablet, Take 20 mg by mouth 4 times a day with meals and at bedtime., Disp: , Rfl: ??? docusate sodium (COLACE) 100 MG capsule, Take 1 capsule (100 mg total) by mouth 2 times a day.,Disp: 60 capsule, Rfl: 0 ??? omeprazole (PRILOSEC OTC) 20 MG tablet, [...] her mother. Past Surgical History: She has past surgical history that includes Cholecystectomy; Appendectomy; and Resection liver (N/A, 11/07/2016). Social History: She reports that she has never smoked. She does not have any smokeless tobacco history on file. Shereports that she does not drink alcohol or use illicit drugs. Review of Systems: * See scanned Review of Systems sheet. Vital Signs: Last menstrual period 10/28/2016. Physical Exam AAOx3. NAD. NCAT. No scleral icterus or conjunctival pallor. OP clear. Neck supple. No supraclavicular LAD. RRR. Normal s1 s2. No m/r/g. Lungs CTA without w/r/r. Abdomen with normoactive BS. Soft. + Surgical scar located in the midline of the abdomen. Surgical david present. Tenderness around abdominal surgical site. Nondistended. Extremities warm. No c/c/e. No asterixis. Skin without rashes. No jaundice. No spider angiomata. Appropriate affect and mood. Review of Lab Results: Lab Results Component Value Date WBC 7.5 11/10/2016 HGB 9.0* 11/10/2016 HCT 26.7* 11/10/2016 MCV 84.4 11/10/2016 PLT 211 11/10/2016 CREATININE 0.67 11/10/2016 BUN 6* 11/10/2016 NA 140 11/10/2016 K 3.6 11/10/2016 CL 108 11/10/2016 CO2 24 11/10/2016 ALT 10 11/04/2016 AST 14 11/04/2016 ALKPHOS 59 11/04/2016 BILITOT 0.3 11/04/2016 Assessment & Plan: 36 y/o F with history of biliary atresia s/p Kasai (hepatoportoenterostomy) who presents for referral of abdominal pain. 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 Patient's abdominal pain that prompted surgical evaluation has resolved. She now has non-descript abdominal pain thatis likely a combination of surgical site pain and potential stress gastritis/duodenitis. As such, Iwould encourage PPI daily, especially as she is taking a liberal amount of NSAIDs. Repeat EGD not indicated at this time. I will further characterize her anemia iron studies and vitamin B12 levels. Our plan is as follows: 1.) Defer EGD at this time. 2.) PPI q daily (Nexium 40 mg q daily) 3.) Labs: ferritin, iron, Vitamin B12 level 4.) Follow-up as needed. The patient was seen in clinic today by Drs. Aaron Rocha (GI attending) and Arias Quiñonez (GI fellow). Dr. Rocha is responsible for all clinical decisions and final editing of the note. documented in this encounter Plan of Treatment Not on file documented as of this encounter Results * (ABNORMAL) Iron Studies (Iron + TIBC) (11/20/2016 9:05 AM EDT) Iron 45(L) 50 - 212 ug/dL 11/20/2016 9:57 AM EDT [facility] Comment:HEMOLYSIS EVIDENT. R ESULTS MAY BE INFLUENCED. % Iron Saturation 12.6(L) 15.0 - 55.0 % 11/20/2016 9:57 AM EDT [facility] TIBC 358 265 - 497 ug/dL 11/20/2016 9:57 AM EDT [facility] Serum specimen (specimen) 11/20/2016 9:05 AM EDT 11/20/2016 9:28 AM EDT Arias Quiñonez MD LAB BLOOD ORDERABLES Final Resu lt [facility] [address] * Vitamin B12 (11/20/2016 9:05 AM EDT) Vitamin B-12 372 180 - 914 pg/mL 11/20/2016 10:20 AM EDT [facility] Serum specimen (specimen) 11/20/2016 9:05 AM EDT 11/20/2016 9:28 AM EDT Arias Quiñonez MD LAB BLOOD ORDERABLES Final Resu lt [facility] [address] * Ferritin (11/20/2016 9:05 AM EDT) Ferritin 40.7 11.0 - 306.8 ng/mL 11/20/2016 10:15 AM EDT [facility] Serum specimen (specimen) 11/20/2016 9:05 AM EDT 11/20/2016 9:28 AM EDT us Arias Quiñonez MD LAB BLOOD ORDERABLES Final Resu lt [facility] [address] documented in this encounter Visit Diagnoses Diagnosis Dyspepsia- Primary Dyspepsia and other specified disorders of function of stomach Abdominal pain, unspecified location documented in this encounter Additional Health Concerns Assessment Noted Time PHQ-9 Depression Total Score: 10 017 8:00 AM EDT documented as of this encounter Care Teams Supervisor Frame Sample And Pattern Relationship Specialty Start Date End Date Marlo Rubio MD PCP - General Family Medicine 10/09/16 documented as of this encounter
--- OUTSIDE RECORDS SUMMARY | 2024-03-14 18:26 | XMS_ITS | Encounter Summary ---
Author Organization [facility] Address [address] [place] [address] Care Team Providers Care Terrazzo Polisher Name Role Phone Marlo Rubio MD Primary [...] release of HIV test results or diagnoses. [id number] [facility] Reason for Visit * Auth/Cert Specialty Diagnoses / Procedures Referred By Amalia tuttle Referred To Contact Diagnoses Generalized abdominal pain Celiac artery stenosis ([facility]) SDA 11/07 Generalized abdominal pain [R10.84] Celiac artery stenosis [I77.4] Procedures CASE REQUEST OPERATING ROOM NE DIAPHRAGM SURG PROC UNLISTED NE REVISION OF DIAPHRAGM NE RESECT DIAPHRAM,SIMPLE REPAIR EXPLORATORY LAPAROTOMY [facility] [address] [place] [address] Phone: tel: Referral ID Status Reason Start Date Expiration Date Visits Re quested Visits Authorized [id number] 1 1 Encounter Details Date Type Department Care Team (Late st Contact Info) Description 11/07/2016 1:15 PM EDT Anesthesia Event [facility] [address] [place] [phone] Alondra Monreal MD Adams, Megan Elizabeth, DO Anesthesia Record Procedure Summary Procedure Name Responsible Anesthesiologist Anesthesia Start Time Anesthesia Stop Time Exploratory Laparotomy, Median Arcuate Ligament Division, Celiac Ganglian plexis injection with ETOH dehydrated (Abdomen) Alondra Monreal MD 11/07/16 1315 11/07/16 1541 Events Date Time Event Comment 11/07/2016 1149 Anesthesia Prep Start 1301 1315 An Start 1315 An Start Data 1324 An Induction 1325 An Intubation 1347 Time Out 1456 Anesthesiologist Handoff 1520 An Emergence 1528 Extubation 1530 an stop data 1541 An Stop Meds Name Total midazolam (VERSED) injection 1 mg/ml 2 m g fentanyl IV (SUBLIMAZE) injection 50 mcg /ml 200 mcg fentanyl SAB (SUBLIMAZE) injection 50 mc g/mL 50 mcg lidocaine (XYLOCAINE) 20 mg/mL (2%) inje ction 80 mg propofol (DIPRIVAN) 10 mg/ml IV injectio n (BOLUS) 160 mg succinylcholine (QUELICIN) 20 mg/mL inje ction 120 mg rocuronium (ZEMURON) 10 mg/mL injection 45 mg hydromorphone (DILAUDID) injection 2mg/m L 0.4 mg ondansetron (ZOFRAN) 4 mg/2 mL injection 4 mg dexamethasone (DECADRON) injection 4 mg/ mL 4 mg neostigmine (PROSTIGMINE) 1 mg/mL inject ion 3 mg glycopyrrolate (ROBINUL) 0.2 mg/mL injec tion 0.6 mg heparin (porcine) injection 5,000 Units 5,000 Units ceFAZolin (ANCEF) 1 g in sodium chloride 0.9% 100 mL ADDaptor IVPB 1 g phenylephrine (NIESHA-SYNEPHRINE) injection 100 mcg bupivacaine (MARCAINE) injection 0.25% 5 mL bupivacaine (MARCAINE) 0.062 5%/HYDROmorphone (DILAUDID) 0.002% in sodium chloride 0.9% 250mL epidural 3.47 mL NORMOSOL-R pH 7.4 IV soln 1000 mL 1,000 mL lactated ringers infusion 1,600 mL * Agents Name N2O O2 N2O Air Desflurane * Blood No blood administrations on file. Lines, Drains, and Airways Type Details Placement Removal Peripheral IV 11/07/16; 0853; 20 G ; Left; Hand; Injectable; Standard 11/07/16 0853 by Sandy Monte RN 11/10/16 1733 by Dejuan Carrasco RN Epidural 11/07/16; 1156; Thor acic (T7-8); Tolerated well; 0830 11/07/16 1156 by Eli Wong RN 11/09/16 0830 by Dejuan Carrasco RN Urethral Catheter 11/07/16; 1320; Double-lumen, Non-latex, Straight-tip; 16 Fr.; Other (Comment) (patient was under general anesthesia); Per order 11/07/16 1320 by Ruben Hemphill RN 11/09/16 0930 by Dejuan Carrasco RN Peripheral IV 20 G; Left; Wrist; Alcohol; Standard; Tolerated well 11/07/16 1336 by 11/10/16 1733 by Dejuan Carrasco RN Anesthesia Airway Device I.V., Rapid Sequence; cricoid pressure; Laryngoscope Handle; Mac; 3; Oral; Grade I View; ETT; 7.5 mm; Cuffed; (to seal); 21 cm; Stylet Standard; 1; Resident; isaías preston MD; Capnograph; Yes; 11/07/16; 1528 11/07/16 1337 by 11/07/16 1528 by Cruz Daniel CRNA Peripheral IV 18 G; Right; Wrist; Alcohol; Standard; Tolerated well 11/07/16 1338 by 11/10/16 1733 by Dejuan Carrasco RN Incision 11/07/16; 1510; Abdo men; david, sterile gauze, tegaderm; 01/12/18; 1414 11/07/16 1510 by Ruben Hemphill RN 01/12/18 1414 by Carolee Tolliver RN documented in this encounter Social History [...] as of this encounter Progress Notes * Ahmet Stanford DO - 11/07/2016 5:19 PM EDT Anesthesia Post Note Patient: Gardenia Childress Procedure(s) Performed: Procedure(s): Exploratory Laparotomy, Median Arcuate Ligament Division, Celiac Ganglian plexis injection with ETOH dehydrated Anesthesia type: general endotracheal Patient location: PACU Post pain: Adequate analgesia Post assessment: no apparent anesthetic complications, tolerated procedure well and no evidence of recall Last Vitals: Filed Vitals: 11/07/16 1600 11/07/16 1615 11/07/16 1630 11/07/16 1645 BP: 118/69 111/55 102/52 98/51 Pulse: 88 89 88 93 Temp: TempSrc: Resp: 14 16 10 11 Height: Weight: SpO2: 100% 100% 100% 95% Post vital signs: stable Level of consciousness: awake, alert and oriented Complications: None documented in this encounter H&P Notes * Law De La Cruz MD - 11/06/2016 8:18 PM EDT Images from the original note were not included. [facility] DEPARTMENT OF ANESTHESIOLOGY PRE-PROCEDURAL EVALUATION Gardenia Childress is a 36 y.o. year old female presenting for: Procedure(s): Exploratory Laparotomy, Median Arcuate Ligament Division Surgeon: Deborah Parker MD Chief Complaint SDA 11/07 Generalized abdominal pain [R10.84]; Celiac artery stenosis [I77.* Review of Systems Anesthesia Evaluation Patient summary reviewed, nursing notes reviewed, VERIFIER/PAT note reviewed and Previous anesthesia note reviewed. No history of anesthetic complications I have reviewed the History and Physical Exam, any relevant changes are noted in the anesthesia pre-operative evaluation. Cardiovascular: Exercise tolerance: good Cummings Met score: 8 - Moving heavy furniture. Rapidly climbing stairs. Carrying 20 pounds up stairs. (+) dysrhythmias (pvc's). (-) hypertension, past OR, cardiomyopathy, CABG/stent, angina, CHF. Neuro/Muscoloskeletal/Psych: (+) headaches (migraines on topamax ppx and triptan abortive). (-) seizures, TIA, CVA, back problems. Pulmonary: (-) COPD, asthma, shortness of breath. 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 (-) GERD, renal disease. Endo/Other: (+) anemia (with now resolved). (-) diabetes mellitus, hypothyroidism, hyperthyroidism, no thrombocytopenia, no bleeding disorder, no cancer, no DVT, no clotting disorder, no steroid use. No opiate use Past Medical History Past Medical History Diagnosis Date ??? Biliary stenosis ??? 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 Migraine ??? Anemia gestational ??? Thyroid disease nodule Past Surgical History Past Surgical History Procedure Laterality Date ??? Cholecystectomy ??? Appendectomy Family History Family History Problem Relation Age of Onset ??? Diabetes Mother ??? Heart disease Mother ??? COPD Mother ??? Stroke Mother ??? Cancer Sister ??? Diabetes Sister Social History Social History Social History ??? Marital Status: [...] ??? Not on file Social History Narrative Medications Allergies: Allergies Allergen Reactions ??? Aspirin Other (See Comments) Due to biliary atresia ??? Morphine Nausea And Vomiting Home Meds: Prior to Admission medications as of 11/04/16 0939 Medication Sig Taking? dicyclomine (BENTYL) 20 mg tablet Take 20 mg by mouth 4 times a day with meals and at bedtime. omeprazole (PRILOSEC OTC) 20 MG tablet Take 1 tablet (20 mg total) by mouth daily. SUMAtriptan (IMITREX) 25 MG tablet Take 25 mg by mouth once as needed for Migraine. topiramate (TOPAMAX) 25 MG sprinkle capsule Take 25 mg by mouth 2 times a day. Inpatient Meds: Scheduled: Continuous: PRN: Vital Signs Wt Readings from Last 3 Encounters: 11/04/16 148 lb (67.132 kg) 10/23/16 148 lb (67.132 kg) 10/09/16 149 lb (67.586 kg) Ht Readings from Last 3 Encounters: 11/04/16 5' 5 (1.651 m) 10/31/16 5' 5 (1.651 m) 10/23/16 5' 5.5 (1.664 m) Temp Readings from Last 3 Encounters: 11/04/16 98.2 ??F (36.8 ??C) Oral 09/26/16 97.7 ??F (36.5 ??C) Oral BP Readings from Last 3 Encounters: 11/04/16 120/82 10/31/16 109/71 10/23/16 100/60 Pulse Readings from Last 3 Encounters: 11/04/16 70 10/31/16 66 10/23/16 70 SpO2 Readings from Last 3 Encounters: 11/04/16 100% 10/31/16 100% 10/23/16 97% Physical Exam Airway: Mallampati: II Mouth Opening: >2 FB TM distance: > = 3 FB Neck ROM: full (-) no facial hair, neck not short, not intubated Dental: Pulmonary: Breath sounds clear to auscultation. Cardiovascular: Rhythm: regular Rate: normal Neuro/Musculoskeletal/Psych: Mental status: alert and oriented to person, place and time. Abdominal: Current OB Status: Other Findings: Laboratory Data Lab Results Component Value Date WBC 6.7 11/04/2016 HGB 12.1 11/04/2016 HCT 34.9* 11/04/2016 MCV 83.5 11/04/2016 PLT 331 11/04/2016 No results found for: ABORH Lab Results Component Value Date GLUCOSE 71 11/04/2016 BUN 8 11/04/2016 CO2 24 11/04/2016 CREATININE 0.73 11/04/2016 K 3.8 11/04/2016 NA 142 11/04/2016 CL 111* 11/04/2016 CALCIUM 9.0 11/04/2016 ALBUMIN 3.8 11/04/2016 ALBUMIN 3.8 11/04/2016 PROT 6.8 11/04/2016 ALKPHOS 59 11/04/2016 ALT 10 11/04/2016 AST 14 11/04/2016 BILITOT 0.3 11/04/2016 Lab Results Component Value Date INR 1.0 11/04/2016 Lab Results Component Value Date PREGTESTUR NEGATIVE 09/26/2016 CT 10/14/16: FINDINGS: Changes of choledochojejunostomy are [...] 89 PVC'S. No VT. 2 PAC'S. No SVT Anesthesia Plan ASA 2 Female, current non-smoker and opiate use Planned PONV prophylaxis. Anesthesia Type: general endotracheal. (GETA with IV induction. Standard ASA monitors +/- arterial line + CVC. Multimodal analgesia including preoperative PO analgesics as appropriate. PACU v SICU post op. ) Intravenous induction. Anesthetic plan and risks discussed with patient. Plan, alternatives, and risks of anesthesia, including , have been explained to and discussed with the patient/legal guardian. By my assessment, the patient/legal guardian understands and agrees. Scenario presented in detail. Questions answered. Use of blood products discussed with patient whom consented to blood products. Plan discussed with resident and attending. documented in this encounter Miscellaneous Notes * Extubation Criteria - Cruz Daniel CRNA - 11/07/2016 3:41 PM EDT Anesthesia Extubation Criteria: Airway Device: endotracheal tube Emergence Details: Smooth _x_ Stormy __ Prolonged __ Extubation Criteria: Motor strength intact _x_ Follows commands _x_ Good airway reflexes _x_ OP suctioned _x_ Follows commands: Yes Patient extubated: Yes documented in this encounter Plan of Treatment Not on file documented as of this encounter Visit Diagnoses * Transfer of Care - Cruz Daniel CRNA - 11/07/2016 3:40 PM EDT Anesthesia Transfer of Care Note Patient: Gardenia Childress Procedure(s) Performed: Procedure(s): Exploratory Laparotomy, Median Arcuate Ligament Division, Celiac Ganglian plexis injection with ETOH dehydrated Patient location: PACU Anesthesia type: general endotracheal Airway Device on Arrival to PACU/ICU: Nasal Cannula IV Access: Peripheral Monitors Recommended to be Used During PACU/ICU: Standard Monitors Outstanding Issues to Address: None Level of Consciousness: awake, alert and oriented Post vital signs: Filed Vitals: 11/07/16 1535 BP: 121/61 Pulse: 102 Temp: 97.6 ??F (36.4 ??C) Resp: 12 SpO2: 100% Complications: None Date 11/06/16 1500 - 11/07/16 0659(Not Admitted) 11/07/16 0700 - 11/08/16 0659 Shift 7575-4795 3312-8755 24 Hour Total 0423-4543 3974-5689 8880-8035 24 Hour Total I N T A K E I.V. 1000 (15.3) 1600 (24.5) 2600 (39.8) Volume (mL) (electrolyte-R (pH 7.4) (NORMOSOL-R pH 7.4) iv solution SolP) 1000 1000 Volume (mL) (lactated Ringers infusion) 2306 651 5486 Shift Total (mL/kg) 1000 (15.3) 1600 (24.5) 2600 (39.8) O U T P U T Urine 150 (0.3) 150 Urine 150 150 Shift Total (mL/kg) 150 (2.3) 150 (2.3) Weight (kg) 65.3 65.3 65.3 65.3 65.3 65.3 documented in this encounter Administered Medications Inactive Administered Medications - up to 3 most recent administrations Medication Order MAR Action Action Date Dose Rate Site bupivacaine (MARCAINE) 0.0625%/HYDROmorphone (DILAUDID) 0.002% in sodium [...] PM EDT 8 mL/hr 8 mL/hr bupivacaine (PF)(SENSORCAINE) 0.25% injection PRN - One Step Medication Only, Starting on Stephanie 11/07/16 at 1501, Anesthesia Intra-op Given 11/07/2016 3:09 PM EDT 2 m Ls Given 11/07/2016 3:01 PM EDT 3 mLs ceFAZolin (ANCEF) 1 g in sodium chloride 0.9% 100 mL ADDaptor IVPB 1 g, Intravenous, at 200 mL/hr, call center specialist to O.R., call center specialist to O.R., Starting on Stephanie 11/07/16 at 0639, For 1 dose, Give within 1 hour of procedure. For Patient Weight 80 kg or Less. Use ADDaptor product - Mix Thoroughly Before Administration, Pre-op, Indication? Prophylaxis-Surgical, Site of diagnosed infections (select all that apply): IV LineIndications:Generalized abdominal pain,Celiac artery stenosis (CMS-HCC) New Bag 11/07/2016 1:28 PM EDT 1 g dexamethasone (DECADRON) injection PRN - One Step Medication Only, Starting on Stephanie 11/07/16 at 1330, Anesthesia Intra-op Given 11/07/2016 1:30 PM EDT 4 m g electrolyte-R (pH 7.4) (NORMOSOL-R pH 7.4) iv solution SolP Continuous - One Step Medications Only, Starting on Stephanie 11/07/16 at 1330, Anesthesia Intra-op New Bag 11/07/2016 1:30 PM EDT fentaNYL (SUBLIMAZE) injection Intravenous, PRN - One Step Medication Only, Starting on Stephanie 11/07/16 at 1315, Anesthesia Intra-op Given 11/07/2016 1:55 PM EDT 50 mcg Given 11/07/2016 1:24 PM EDT 100 mcg Given 11/07/2016 1:15 PM EDT 50 mcg fentaNYL (SUBLIMAZE) injection Intrathecal, PRN - One Step Medication Only, Starting on Stephanie 11/07/16 at 1412, Anesthesia Intra-op Given 11/07/2016 2:12 PM EDT 50 mcg glycopyrrolate (ROBINUL) injection PRN - One Step Medication Only, Starting on Stephanie 11/07/16 at 1515, Anesthesia Intra-op Given 11/07/2016 3:15 PM EDT 0.6 mg heparin (porcine) injection 5,000 Units 5,000 Units, Subcutaneous, Once, On Stephanie 11/07/16 at 0700, For 1 dose, Administer prior to surgery procedure., Pre-opIndications:Generalized abdominal pain,Celiac artery stenosis (CMS-HCC) Given 11/07/2016 1:25 PM EDT 5,000 Units HYDROmorphone (DILAUDID) injection Syrg PRN - One Step Medication Only, Starting on Stephanie 11/07/16 at 1525, Anesthesia Intra-op Given 11/07/2016 3:25 PM EDT 0.4 mg lactated Ringers infusion Continuous - One Step Medications Only, Starting on Stephanie 11/07/16 at 1152, Anesthesia Intra-op New Bag 11/07/2016 1:31 PM EDT New Bag 11/07/2016 11:52 AM EDT lidocaine (PF) 20 mg/mL (2 %) Soln Intravenous, PRN - One Step Medication Only, Starting on Stephanie 11/07/16 at 1321, Anesthesia Intra-op Given 11/07/2016 1:21 PM EDT 80 mg midazolam (PF) (VERSED) injection PRN - One Step Medication Only, Anxiety, Starting on Stephanie 11/07/16 at 1148, Anesthesia Intra-op Given 11/07/2016 1:15 PM EDT 1 mg Given 11/07/2016 11:48 AM EDT 1 mg neostigmine methylsulfate (PROSTIGMIN) IV solution PRN - One Step Medication Only, Starting on Stephanie 11/07/16 at 1515, Anesthesia Intra-op Given 11/07/2016 3:15 PM EDT 3 m g ondansetron (ZOFRAN) 4 mg/2 mL injection PRN - One Step Medication Only, Starting on Stephanie 11/07/16 at 1507, Anesthesia Intra-op Given 11/07/2016 3:07 PM EDT 4 m g phenylephrine (NIESHA-SYNEPHRINE) injection PRN - One Step Medication Only, Starting on Stephanie 11/07/16 at 1347, Anesthesia Intra-op Given 11/07/2016 1:47 PM EDT 100 mcg propofol 10 mg/ml (DIPRIVAN) injection PRN - One Step Medication Only, Starting on Stephanie 11/07/16 at 1324, Anesthesia Intra-op Given 11/07/2016 1:24 PM EDT 160 mg rocuronium (ZEMURON) injection PRN - One Step Medication Only, Starting on Stephanie 11/07/16 at 1338, Anesthesia Intra-op Given 11/07/2016 2:27 PM EDT 10 mg Given 11/07/2016 1:38 PM EDT 15 mg Given 11/07/2016 1:33 PM EDT 20 mg succinylcholine (QUELICIN) injection PRN - One Step Medication Only, Starting on Stephanie 11/07/16 at 1324, Anesthesia Intra-op Given 11/07/2016 1:24 PM EDT 120 mg documented in this encounter Care Teams Terrazzo Polisher Relationship Specialty Start Date End Date Marlo Rubio MD PCP - General Family Medicine 10/09/16 documented as of this encounter
--- OUTSIDE RECORDS SUMMARY | 2024-03-14 18:26 | XMS_ITS | Encounter Summary ---
Author Organization [facility] Address [address] [place] [id number] Care Team Providers Care Lollypop Machine Operator Name Role Phone Marlo Rubio MD [...] release of HIV test results or diagnoses. [id number] Reason for Visit * Reason Comments Appointment Encounter Details Date Type Department Care Team (Late Contact Info) Description 10/11/2016 Telephone [facility] Interventional Radiology [address] [place] [phone] Solomon Soriano Appointment Social History Tobacco Use Types Packs/Day Years [...] Miscellaneous Notes * Telephone Encounter - RT Kenny - 10/11/2016 11:26 AM EDT Spoke with patient Gardenia Childress, scheduled appointment confirmed date/time 10/14 at 830a. Patient instructed to arrive at 8a and have a truck driver flatbed. Directed to Radiology documented in this encounter Plan of Treatment Not on file documented as of this encounter Visit Diagnoses Not on filedocumented in this encounter Care Teams Lollypop Machine Operator Relationship Specialty Start Date End Date Marlo Rubio MD PCP - General Family Medicine 10/09/16 documented as of this encounter
--- OUTSIDE RECORDS SUMMARY | 2024-03-14 18:26 | XMS_ITS | Encounter Summary ---
Author Organization [facility] Address [address] [place] [id number] Care Team Providers Care Sugar Cane Planting Equipment Operator Name Role Phone Marlo Rubio MD [...] release of HIV test results or diagnoses. [id number] Health Reason for Visit * Reason Comments Post-op Evaluation Exploratory Laparoto my, Median Arcuate Ligament Division, Celiac Ganglian plexis injection with ETOH dehydrated Encounter Details Date Type Department Care Team (Late st Contact Info) Description 11/20/2016 11:30 AM EDT Office Visit [facility] Transplant Surgery at [facility] [address] [facility] [address] [place] [address] Deborah Parker MD [address] [facility] [address] [place] [address] Generalized abdominal pain (Primary Dx) Social History [...] Reading Time Taken Comments Blood Pressure 120/74 11/20/2016 10:25 AM EDT Pulse 71 11/20/2016 10:25 AM EDT Temperature - - Respiratory Rate 15 11/20/2016 10:25 AM EDT Oxygen Saturation 97% 11/20/2016 10:25 AM EDT Inhaled Oxygen Concentration 97% 11/20/2016 1 0:25 AM EDT Weight 64.4 kg (142 lb) 11/20/2016 10:25 AM EDT Height 165.1 cm (5' 5 ) 11/20/2016 10:25 AM EDT Body Mass Index 23.63 11/20/2016 10:25 AM EDT documented in this encounter Progress Notes * Deborah Parker MD - 11/20/2016 10:26 AM EDT Images from the original note were not included. Chief Complaint: Chief Complaint Patient presents with ??? Post-op Evaluation Exploratory Laparotomy, Median Arcuate Ligament Division, Celiac Ganglian plexis injection with ETOH dehydrated Subjective HPI: Patient ID: Gardenia Childress is a 36 y.o. female. HPI Post-Op Visit: Date of surgery: 11/07/16 Procedure: Exploratory Laparotomy, Median Arcuate Ligament Division, Celiac Ganglian plexis injection with ETOH dehydrated Complaints: pain Imaging: None at this time Wound/Incision: clean & dry Sutures/[place]: removed Dressing: N/A - no dressings needed Instructions Given: wound care instructions Restrictions: lifting Allergies Aspirin; Latex, natural rubber; and Morphine Medications Outpatient Encounter Prescriptions as of 11/20/2016 Medication Sig Dispense Refill ??? dicyclomine (BENTYL) 20 mg tablet Take 20 mg by mouth 4 times a day with meals and at bedtime. ??? docusate sodium (COLACE) 100 MG capsule Take 1 capsule (100 mg total) by mouth 2 times a day. 60 capsule 0 ??? esomeprazole magnesium (NEXIUM 24HR) 20 mg TbEC Take 40 mg by mouth daily. 90 tablet 3 ??? omeprazole (PRILOSEC OTC) 20 MG tablet Take 1 tablet (20 mg total) by mouth daily. 30 tablet 0 ??? SUMAtriptan (IMITREX) 25 MG tablet Take 25 mg by mouth once as needed for Migraine. ??? topiramate (TOPAMAX) 25 MG sprinkle capsule Take 25 mg by mouth 2 times a day. No facility-administered encounter medications on file as of 11/20/2016. 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 She has past surgical history that includes Cholecystectomy; Appendectomy; and Resection liver (N/A, 11/07/2016). Her family history includes COPD in her mother; Cancer in her sister; Diabetes in her mother and sister; Heart disease in her mother; Stroke in her mother. She reports that she has never smoked. She does not have any smokeless tobacco history on file. Shereports that she does not drink alcohol or use illicit drugs. The following portions of the patient's history were reviewed and updated as appropriate: allergies, current medications, past family history, past medical history, past social history, past surgicalhistory and problem list. ROS: Review of Systems Constitutional: Negative for fever, chills, diaphoresis, activity change, appetite change and fatigue. Respiratory: Negative for apnea, cough, choking, chest tightness, shortness of breath, wheezing andstridor. Cardiovascular: Negative for chest pain, palpitations and leg swelling. Gastrointestinal: Negative for heartburn, nausea, vomiting, abdominal pain, diarrhea, constipation,blood in stool, abdominal distention, anal bleeding, rectal pain and bloating. Objective: Physical Exam Abdominal: Normal appearance. She exhibits no distension and no fluid wave. No hernia. Assessment/Plan: No diagnosis found. Doing well. Follow up as needed. Pain resolved. Time spent with 30 minutes with at least 50% of face to face contact in total. Time spent reviewingchart, discussing case with transplant team including pharmacy, nutrition and coordinators. documented in this encounter Plan of Treatment Not on file documented as of this encounter Visit Diagnoses Diagnosis Generalized abdominal pain- Primary Abdominal pain, generalized documented in this encounter Additional Health Concerns Assessment Noted Time PHQ-9 Depression Total Score: 10 017 8:00 AM EDT documented as of this encounter Care Teams Sugar Cane Planting Equipment Operator Relationship Specialty Start Date End Date Marlo Rubio MD PCP - General Family Medicine 10/09/16 documented as of this encounter
--- OUTSIDE RECORDS SUMMARY | 2024-03-14 18:26 | XMS_ITS | Encounter Summary ---
Author Organization [facility] Address [address] [place] [id number] Care Team Providers Care Bone Char Operator Name Role Phone Marlo Rubio MD [...] release of HIV test results or diagnoses. [id number] Health Reason for Visit * Reason Comments Follow-up biliary atresia/sten osis follow up CT Encounter Details Date Type Department Care Team (Late st Contact Info) Description 10/23/2016 9:30 AM EDT Office Visit [facility] Transplant Surgery at [facility] [address] [facility] [address] [place] [address] Deborah Parker MD [address] [facility] [address] [place] [address] Generalized abdominal pain (Primary Dx) [...] Sign Reading Time Taken Comments Blood Pressure 100/60 10/23/2016 9:09 AM EDT Pulse 70 10/23/2016 9:09 AM EDT Temperature - - Respiratory Rate 15 10/23/2016 9:09 AM EDT Oxygen Saturation 97% 10/23/2016 9:09 AM EDT Inhaled Oxygen Concentration 97% 10/23/2016 9 :09 AM EDT Weight 67.1 kg (148 lb) 10/23/2016 9:09 AM EDT Height 166.4 cm (5' 5.5 ) 10/23/2016 9:09 AM EDT Body Mass Index 24.25 10/23/2016 9:09 AM EDT documented in this encounter Progress Notes * Deborah Parker MD - 10/23/2016 9:10 AM EDT Chief Complaint Patient presents with ??? Follow-up biliary atresia/stenosis follow up CT Gardenia Childress is a 36 y.o. female History of Present Illness: HPI Patient is here follow up CT. She continues to have abdominal pain. She had a CT scan which showed high grade stenosis of the celiac trunk which is likely accounting for her symptoms. It is not her bile duct. The following portions of the patient's history were reviewed and updated as appropriate: allergies, current medications, past family history, past medical history, past social history, past surgicalhistory and problem list. 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 She has past surgical history that includes Cholecystectomy and Appendectomy. Her family history includes COPD in her mother; Cancer in her sister; Diabetes in her mother and sister; Heart disease in her mother; Stroke in her mother. She reports that she has never smoked. She does not have any smokeless tobacco history on file. Shereports that she drinks alcohol. She reports that she does not use illicit drugs. Review of Systems Constitutional: Negative for fever, chills, diaphoresis, activity change, appetite change and fatigue. Respiratory: Negative for apnea, cough, choking, chest tightness, shortness of breath, wheezing andstridor. Cardiovascular: Negative for chest pain, palpitations and leg swelling. Gastrointestinal: Positive for abdominal pain. Negative for heartburn, nausea, vomiting, diarrhea, constipation, blood in stool, abdominal distention, anal bleeding, rectal pain and bloating. Allergies: Aspirin and Morphine Medications: Outpatient Encounter Prescriptions as of 10/23/2016 Medication Sig Dispense Refill ??? dicyclomine (BENTYL) [...] facility-administered encounter medications on file as of 10/23/2016. Objective: Blood pressure 100/60, pulse 70, resp. rate 15, height 5' 5.5 (1.664 m), weight 148 lb (67.132 kg), last menstrual period 09/02/2016, SpO2 97 %. Physical Exam Abdominal: She exhibits no shifting dullness, no distension, no pulsatile liver, no fluid wave, no abdominal bruit and no ascites. 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 We discussed the risks and benefits of surgery. She would need an open approach and division of themedian ligament and nondenominational of normal flow. 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 Consent not signed. Will do day of surgery. Total time spent with patient 45 minutes face to face in total. This did not include time spent (15minutes) reviewing the films, discussing care with the referring doctor and discussion with our multidisciplinary team. documented in this encounter Plan of Treatment Not on file documented as of this encounter Visit Diagnoses Diagnosis Generalized abdominal pain- Primary Abdominal pain, generalized documented in this encounter Care Teams Bone Char Operator Relationship Specialty Start Date End Date Marlo Rubio MD PCP - General Family Medicine 10/09/16 documented as of this encounter
--- OUTSIDE RECORDS SUMMARY | 2024-03-14 18:26 | XMS_ITS | Encounter Summary ---
Author Organization [facility] Address [address] [place] [id number] Care Team Providers Care Welding Setter Name Role Phone Marlo Rubio MD Primary [...] release of HIV test results or diagnoses. [id number] Reason for Visit * Reason Comments New Patient Visit/ Consultation Eval kelechi iary atresia/stenosis. H/O pancreatitis. No recent imaging or medical care. Older imaging/MR @ ([facility]) Encounter Details Date Type Department Care Team (Late st Contact Info) Description 10/09/2016 10:00 AM EDT Office Visit [facility] Transplant Surgery at [facility] [address] [facility] [address] [place], [place] [id number] Deborah Parker MD [address] [facility] [address] [place] [address] Biliary stricture (Primary Dx) Social History Tobacco Use Types [...] Sign Reading Time Taken Comments Blood Pressure 118/74 10/09/2016 9:46 AM EDT Pulse 72 10/09/2016 9:46 AM EDT Temperature - - Respiratory Rate 15 10/09/2016 9:46 AM EDT Oxygen Saturation 98% 10/09/2016 9:46 AM EDT Inhaled Oxygen Concentration 98% 10/09/2016 9 :46 AM EDT Weight 67.6 kg (149 lb) 10/09/2016 9:46 AM EDT Height 166.4 cm (5' 5.5 ) 10/09/2016 9:46 AM EDT Body Mass Index 24.42 10/09/2016 9:46 AM EDT documented in this encounter Progress Notes * Deborah Parker MD - 10/09/2016 9:53 AM EDT Images from the original note were not included. Chief Complaint Patient presents with ??? New Patient Visit/ Consultation Eval biliary atresia/stenosis. H/O pancreatitis. No recent imaging or medical care. Older imaging/MR @ ([facility]) Ishan Childress is a 36 y.o. female History of Present Illness: HPI Patient is here for the evaluation of eval biliary atresia. She has had chronic epigastric pain which is similar to 2010. She has been pain free until 2 months ago when she had pain and was seen in the ER. Labs were normal and she was sent home. No other problems including fevers, chills, MS changes or weight loss. Results for ISHAN CHILDRESS ( ) as of 10/09/2016 10:14 Ref. Range 11/19/2011 20:00 09/26/2016 10:05 Sodium Latest Ref Range: 133-146 mmol/L 146 140 Potassium Latest Ref Range: 3.5-5.3 mmol/L 3.7 4.8 Chloride Latest Ref Range: 98-110 mmol/L 104 109 Carbon Dioxide (CO2) Latest Ref Range: 21-33 mmol/L 26 24 Anion Gap Latest Ref Range: 3-16 mmol/L 16 7 BUN Latest Ref Range: 7-25 mg/dL 4 (L) 11 Creatinine Latest Ref Range: 0.60-1.30 mg/dL 0.72 0.79 1/Creatinine, Serum Latest Units: ratio 1.39 Glucose Latest Ref Range: 70-100 mg/dL 86 81 eGFR AA CKD-EPI Latest Units: See note. >90 eGFR NONAA CKD-EPI Latest Units: See note. >90 GFR MDRD Af Amer Latest Units: See note. 116 GFR MDRD Non Af Amer Latest Units: See note. 96 Calcium Latest Ref Range: 8.6-10.3 mg/dL 9.1 9.2 Calculated Osmolality, Serum Latest Ref Range: 278-305 mOsm/kg 288 Alkaline Phosphatase Latest Ref Range: 36-125 U/L 117 (H) 63 SGOT (AST) Latest Ref Range: 13-39 U/L 25 24 ALT (SGPT) Latest Ref Range: 7-52 U/L 18 14 Albumin Latest Ref Range: 3.5-5.7 g/dL 4.6 4.3 Protein, Total Latest Ref Range: 6.4-8.9 g/dL 8.3 7.6 Bili, Indirect Latest Ref Range: 0.0-1.1 mg/dL 0.4 Bili, Total Latest Ref Range: 0.0-1.5 mg/dL 0.7 0.5 Bili, Direct Latest Ref Range: 0.0-0.4 mg/dL <0.0 (L) 0.1 Lipase Latest Ref Range: 4-82 U/L 32 14 The following portions of the patient's history [...] diaphoresis, activity change, appetite change and fatigue. HENT: Negative for congestion, dental problem, drooling, ear discharge, ear pain, facial swelling, hearing loss, mouth sores, nosebleeds, postnasal drip, rhinorrhea, sinus pressure, sneezing, sore throat, tinnitus, trouble swallowing and voice change. Eyes: Negative for photophobia, pain, discharge, redness, itching and visual disturbance. Respiratory: Negative for apnea, cough, choking, chest tightness, shortness of breath, wheezing andstridor. Cardiovascular: Negative for chest pain, palpitations and leg swelling. Gastrointestinal: Positive for abdominal pain. Negative for heartburn, nausea, vomiting, diarrhea, constipation, blood in stool, abdominal distention, anal bleeding, rectal pain and bloating. Genitourinary: Negative for dysuria, urgency, frequency, hematuria, flank pain, decreased urine volume, vaginal bleeding, vaginal discharge, enuresis, difficulty urinating, genital sores, vaginal pain, menstrual problem, pelvic pain, dyspareunia and nocturia. Musculoskeletal: Negative for myalgias, back pain, joint swelling, arthralgias, gait problem, neck pain and neck stiffness. Skin: Negative for color change, pallor, rash and wound. Neurological: Negative for dizziness, tremors, seizures, syncope, facial asymmetry, speech difficulty, weakness, light-headedness, numbness and headaches. Hematological: Negative for adenopathy. Does not bruise/bleed easily. Psychiatric/Behavioral: Negative for depression, suicidal ideas, hallucinations, behavioral problems, confusion, sleep disturbance, self-injury, dysphoric mood, decreased concentration and agitation.The patient is not nervous/anxious and is not hyperactive. Allergies: Aspirin and Morphine Medications: Outpatient Encounter Prescriptions as of 10/09/2016 Medication Sig Dispense Refill ??? dicyclomine (BENTYL) [...] facility-administered encounter medications on file as of 10/09/2016. Objective: Blood pressure 118/74, pulse 72, resp. rate 15, height 5' 5.5 (1.664 m), weight 149 lb (67.586 kg), last menstrual period 09/02/2016, SpO2 98 %. Physical Exam Abdominal: Normal appearance. There is no tenderness. There is no CVA tenderness. No hernia. Herniaconfirmed negative in the ventral area. Review of Lab Results: Lab Results Component [...] medical decision making: Discussion of care with obiee consultant Assessment: Unclear etiology of abdominal pain after [place] procedure as a baby. She has had no imaging. Appt to see Dr. Rocha in Nov. Labs are normal. She looks well. Plan: 1. Biphasic CT scan. 2. Appt with Dr. Rocha. 3.No role for surgery at this time. We spent 60 minutes today with the patient and more than 50% was [id number] contact counseling and coordinating care. The visit involved reviewing past data, films, discussion with referring doctors and team and then analyzing present condition. documented in this encounter Plan of Treatment Not on file documented as of this encounter Results * CT Angio Biphasic Liver (10/14/2016 9:32 AM EDT) Anatomical Region Laterality Modality Abdomen Computed Tomogra phy 10/14/2016 9:24 AM EDT Impressions 10/14/2016 10:06 AM EDT IMPRESSION: 1. Stable mild left biliary dilation and pneumobilia, post remote hepaticojejunostomy. 2. High-grade celiac stenosis. Report Verified by: YOLANDA TIPTON M.D. at 10/14/2016 10:06 AM EDT Narrative 10/14/2016 10:06 AM EDT Exam: CT ANGIOGRAPHY LIVER BIPHASIC dated 10/14/2016 [...] are no lytic or blastic bone lesions. Procedure Note Yoladna Tipton MD - 10/14/2016 Exam: CT ANGIOGRAPHY LIVER BIPHASIC dated 10/14/2016 9:24 AM EDT CLINICAL HISTORY: Obstruction of bile duct; history of biliary atresiawith remote [place] procedure TECHNIQUE: Biphasic (arterial and venous) helical scanning was performedthrough the abdomen following intravenous contrast administration withmultiplanar reformats, maximum intensity projections, and volume renderingperformed separately. FIELD OF VIEW: 34 cm CONTRAST: 150 mL Omnipaque-350. COMPARISON: April 2011 FINDINGS: Changes of choledochojejunostomy are noted. There is mild leftintrahepatic biliary dilation with pneumobilia, unchanged. The right bileducts are not dilated. The liver is normal in attenuation with no focal lesions. The portal veinand hepatic veins are patent. There is a high-grade stenosis of the celiacartery from arcuate ligament compression, similar to prior. The spleen, pancreas, kidneys, and adrenal glands are normal inappearance. The gallbladder is absent. No abnormalities of thegastrointestinal tract are evident. The lung bases are clear. There are no lytic or blastic bone lesions. IMPRESSION: 1. Stable mild left biliary dilation and pneumobilia, post remotehepaticojejunostomy. 2. High-grade celiac stenosis. Report Verified by: YOLANDA TIPTON M.D. at 10/14/2016 10:06 AM EDT Kushal Telles MD IMG CT ORDERABLES Final Result documented in this encounter Visit Diagnoses Diagnosis Biliary stricture- Primary Obstruction of bile duct documented in this encounter Care Teams Welding Setter Relationship Specialty Start Date End Date Marlo Rubio MD PCP - General Family Medicine 10/09/16 documented as of this encounter
--- OUTSIDE RECORDS SUMMARY | 2024-03-14 18:26 | XMS_ITS | Encounter Summary ---
Author Organization [facility] Address [address] [place] [address] Care Team Providers Care Inspector Boiler Name Role Phone Marlo Rbuio MD Primary Care Provider Fatmata hutchison Source [...] release of HIV test results or diagnoses. [id number] Health Reason for Visit * Auth/Cert Specialty Diagnoses / Procedures Referred By Amalia tuttle Referred To Contact Diagnoses Generalized abdominal pain Celiac artery stenosis (CMS-HCC) SDA 11/07 Generalized abdominal pain [R10.84] Celiac artery stenosis [I77.4] Procedures CASE REQUEST OPERATING ROOM WY DIAPHRAGM SURG PROC UNLISTED WY REVISION OF DIAPHRAGM WY RESECT DIAPHRAM,SIMPLE REPAIR EXPLORATORY LAPAROTOMY [facility] [address] [place] [address] Phone: tel: Referral ID Status Reason Start Date Expiration Date Visits Re quested Visits Authorized [id number] 1 1 Encounter Details Date Type Department Care Team (Late st Contact Info) Description 11/07/2016 1:57 PM EDT - 11/07/2016 6:57 PM EDT Surgery [facility] [address] [place] [address] Deborah Parker MD [address] [facility] [address] [place] [id number] Exploratory Laparotomy, Median Arcuate Ligament Division, Celiac Ganglian plexis injection with ETOH dehydrated Surgery Details Date/Time Status Location OR Service Patient Class Case Class Case Type Trauma Case? 11/07/2016 1:57 PM Posted OR 17 Transplant Surgery Admit Non Trauma Panel 1 Procedure LRB Anes Op Region Wound Class Comments Exploratory Laparotomy, Medi an Arcuate Ligament Division, Celiac Ganglian plexis injection with ETOH dehydrated N/A General Abdomen Clean Surgeon Surgeon Role Service Panel Deborah Parker MD Primary Transplant 1 Special Needs Estrada, chelyon incision, arterial line, epidural for s/p pain, type & cross- 2 units.-#LW documented in this encounter Social History Tobacco [...] Sign Reading Time Taken Comments Blood Pressure 96/49 11/07/2016 6:00 PM EDT Pulse 100 11/07/2016 6:00 PM EDT Temperature 36.6 ??C (97.8 ??F) 11/07/2016 4:45 PM ED T Respiratory Rate 8 11/07/2016 6:00 PM EDT Oxygen Saturation 93% 11/07/2016 6:00 PM EDT Inhaled Oxygen Concentration 93% 11/07/2016 6 :00 PM EDT Weight 65.3 kg (144 lb) 11/07/2016 6:56 AM EDT Height 165.1 cm (5' 5 ) 11/07/2016 6:56 AM EDT Body Mass Index 23.96 11/07/2016 6:56 AM EDT documented in this encounter Discharge Summaries * Franklyn Patel MD - 11/10/2016 5:25 PM EDT Images from the original note were not included. [facility] Department of Surgery Inpatient Discharge Summary Patient: Gardenia Childress : 1980 [facility]: [id number] Date of Admission: 11/07/2016 Date of Discharge: [...] Case IDs Date Procedure Surgeon Location Status [id number] 11/07/16 Exploratory Laparotomy, Median Arcuate Ligament Division Deborah Parker MD OR [facility] CONSULTING SERVICES 1. None DISCHARGE MEDICATIONS [...] Center 11/20/2016 8:30 AM Aaron Rocha MD [facility] 11/20/2016 11:30 AM Deborah Parker MD [facility] [place] MAB MAB PATIENT INSTRUCTIONS Activity: activity as tolerated Diet: regular diet Wound Care: keep wound clean and dry Department of Surgery Division of Transplantation [facility] [address] [place], [place] [address] [place] [address] [address] email: [email or web address] Deborah Parker [employer] police shift commander Director, Liver Transplantation and Hepatobiliary Surgery Post-Operative [...] (follow the directions). PLEASE CALL OUR OFFICE [phone] WITH ANY QUESTIONS OR CONCERNS Mon-Fri 9AM-5PM. Follow-up Appointment: 11/20/16 @ 11:30 AM (please arrive at 11:00 AM), on the 7th floor of the [employer] [facility] with Dr. Parker. FRANKLYN PATEL MD 11/10/2016 Cosigned by Ermelinda Arrington MD at 11/10/2016 5:32 PM EDT documented in this encounter Discharge Instructions * Discharge Instructions* Jessica Haq CNP - 11/08/2016 3:32 PM EDT Images from the original note were not included. Department of Surgery Division of Transplantation [facility] [address] [place], [place] [address] [facility] [address] email: [email or web address] Deborah Parker MD, [facility] police shift commander Director, Liver Transplantation and Hepatobiliary Surgery Post-Operative [...] (follow the directions). PLEASE CALL OUR OFFICE [phone] WITH ANY QUESTIONS OR CONCERNS Mon-Fri 9AM-5PM. Follow-up Appointment: 11/20/16 @ 11:30 AM (please arrive at 11:00 AM), on the 7th floor of the [employer] [facility] with Dr. Parker. documented in [...] 0659 11/10/16 07 - 11/11/16 0659 Shift 3002-7381 0898-2650 3876-5477 24 Hour Total 5704-3456 6624-0366 0937-9701 24 Hour Total I N T A K E P.O. 217 418 7576 P.O. 931 886 1387 I.V. (mL/kg) 236 (3.6) 236 (3.6) I.V. 236 236 Shift Total (mL/kg) 956 (14.6) 720 (11) 1676 (25.7) O U T P U T Urine (mL/kg/hr) 650 (1.2) 725 (1.4) 1300 2675 Urine 917 252 4546 2125 Output (mL) ([REMOVED] IUC (Graham) Double-lumen;Non-latex;Straight-tip [...] FRANKLYN PATEL MD General Surgery Resident Pager: [phone] 11/10/2016 Cosigned by Ermelinda Arrington MD at [...] Anesthesiology PGY-3 Inpatient Pain Service Pager # [phone] * Nilam Robertson MD - 11/09/2016 7:36 AM EDT Surgery Progress Note Patient: Gardenia Childress Admit Date: 11/07/2016 OR Date: 11/07/2016 SUBJECTIVE -No acute events overnight. - tolerating regular diet OBJECTIVE Vitals: Temp: [98.1 ??F (36.7 ??C)-98.6 ??F (37 ??C)] 98.5 ??F (36.9 ??C) Heart Rate: [80-94] 80 Resp: [16] 16 BP: (90-104)/(48-65) 96/55 mmHg Date 11/08/16699 - 11/09/1659 11/09/16 07 - 11/10/16 0659 Shift 0987-6018 1132-4579 0465-7879 24 Hour Total 2958-3496 8887-5531 2838-1079 24 Hour Total I N T A K E P.O. 480 360 120 960 P.O. 480 360 120 960 I.V. (mL/kg) 893.2 (13.7) 575.6 (8.8) 731.6 (11.2) 2200.4 (33.7) I.V. 821 409 031 9254 Amt Infused (mL) (bupivacaine (MARCAINE) 0.0625%/HYDROmorphone (DILAUDID) 0.002% in sodium chloride0.9% 250mL epidural) 72.2 38.6 49.6 160.4 Shift Total (mL/kg) 1373.2 (21) 935.6 (14.3) 851.6 (13) 3160.4 (48.4) O U T P U T Urine (mL/kg/hr) 225 (0.4) 1100 (2.1) 400 (0.8) 1725 (1.1) Output (mL) (IUC (Graham) Double-lumen;Non-latex;Straight-tip 16 Fr.) 225 6450 822 2797 Shift Total (mL/kg) 225 (3.4) 1100 (16.8) [...] with KCl 20 mEq 75 mL/hr (11/08/16 2101) PRN Meds: diphenhydrAMINE OR diphenhydrAMINE, nalbuphine(NUBAIN) IV [...] Nilam Robertson MD General Surgery Resident Pager: [phone] 11/09/2016 Cosigned by Ermeilnda Arrington MD at 11/10/2016 12:13 AM EDT [...] 0659 11/08/16 07 - 11/09/16 0659 Shift 3864-3720 2333-6350 5386-9211 24 Hour Total 5755-2489 5070-5062 5255-2590 24 Hour Total I N T A [...] 1000 1000 Volume (mL) (lactated Ringers infusion) 6979 172 1471 Shift Total (mL/kg) 1000 (15.3) 1942.7 (29.7) [...] ESSENCE YOUNGBLOOD MD General Surgery Resident Pager: [phone] 11/08/2016 Cosigned by Deborah Parker MD at [...] with KCl 20 mEq 75 mL/hr (11/08/16930) Infusion Meds: ??? bupivacaine (MARCAINE) 0.125%/HYDROmorphone (DILAUDID) [...] to room. Call light within reach. Epi 8-2-20-3. Graham draining clear yellow urine. LR @ [...] the surgery is delayed until this afternoon. Kitchen Clerk asked Dr. Parker if patient could have [...] Lynch MD - 11/07/2016 4:[address] [facility] OPERATIVE REPORT PATIENT: Gardenia Childress CSN: [id number] DATE OF OPERATION: 11/08/2016 ATTENDING SURGEON: Deborah Parker MD ASSISTANTS: 1. Migue Lynch MD PREOPERATIVE DIAGNOSIS: Median [...] instrument and sponge counts were correct. Dr. Parekr, the attending surgeon, was present throughout the [...] present for the entire procedure. * Jayne Malheur - 11/07/2016 4:15 PM EDT AMENDMENT - DEMOGRAPHIC REVISION(DOS) - 11/15/16 - akg Original Author: MD Migue Torres MD Resident Attested Transplant Surgery Op Note 11/07/2016 ??4:15 PM Attestation signed by Deborah Parker MD at 11/11/2016 7:48 AM I was present for the entire procedure. [facility] OPERATIVE REPORT ?? PATIENT: Gardenia Childress CSN: [id number] DATE OF OPERATION: 11/07/2016 ATTENDING SURGEON: Deborah [...] injection with ETOH dehydrated Procedure Note Gardenia Kristie Childress 11/07/2016 Pre-op Diagnosis: Generalized abdominal pain [R10.84] Celiac artery stenosis [I77.4] Post-op Diagnosis: Same Procedure(s): Exploratory Laparotomy, Median Arcuate Ligament Division, Celiac ganglion plexus neurolysis with ETOH injection Surgeon(s): Deborah Parker MD Anesthesia: General Staff: Mandrel Cleaner: Eric Costa RN; Ruben Potter RN Relief Mandrel Cleaner: Mya Sanches RN Relief Scrub: Mya Sanches RN Scrub Person: Елена Cevallos, GLOBAL PROGRAM MANAGER Resident: Migue Lynch MD Estimated Blood Loss: Minimal Specimens: * No specimens in log * Drains: IUC (Graham) Double-lumen;Non-latex;Straight-tip 16 Fr. (Active) Status [place] Drainage 11/07/2016 3:35 PM Collection Container Standard drainage bag 11/07/2016 3:35 PM Securement Method StatLock 11/07/2016 3:35 PM Number of days:0 There were no complications unless listed below. MIGUE LYNCH Date: 11/07/2016 Time: 6:52 PM * Eli Blanco RN - 11/07/2016 11:54 AM EDTAssociated Order(s): ANESTHESIA EPIDURAL PLACEMENT (SMARTFORM) Pre-Procedure Diagnose(s): Celiac artery stenosis (CMS-HCC) Post-Procedure Diagnose(s): Celiac artery stenosis (CMS-[facility]) Gardenai Childress is a 36 y.o. female patient. [...] after procedure: 100% Staffing Anesthesiologist: THUAN BARBOZA Resident/SEASONAL CUSTOMER SERVICE ASSOCIATE: VJ ROJAS Performed by: residents Additional Notes [...] scribe for Dr. Barboza Cosigned by Thuan Barboaz MD at 11/07/2016 1:38 PM EDT Associated [...] in this encounter Nursing Notes * Dejuan Chester RN - 11/10/2016 5:33 PM EDT Pt to be discharged to home. VSS, pain controlled on PO pain medications. AVS reviewed and signed. Pt verbalized understanding. 3 IV d/c'd. Scripts given. Core measures complete. Transport called, awaiting arrival. * Dejuan Chester RN - 11/09/2016 6:26 PM EDT Pt's [...] needs expressed at this time. * Dejuan Chester RN - 11/08/2016 8:03 PM EDT Pt [...] Notes * Care Coordination - CLARE Wray, TOYA - 11/08/2016 11:42 AM EDT [facility] Care Management Department High Risk Screen Name: Gardenia Childress Date: 11/08/2016 High Risk Screen Patient admitted from snf, mcfp or rehab facility: No Patient is over [...] and meets Low Risk indicators. Please call Monologist if needs arise. (Score 0-1) BREANNA PSARKS [facility] [phone] * Care Coordination - CLARE Wray LSW - 11/08/2016 11:37 AM EDT Sw: Patient expected discharge date of 11/10 vs. 11/11. No Sw needs expected at this time. Breanna SPARKS [facility] [phone] * Post Briefing - Ruben Potter RN [...] - 146 mmol/L 11/10/2016 8:48 AM EDT [facility] Potassium 3.6 3.5 - 5.3 mmol/L 11/10/2016 8:48 AM EDT [facility] Chloride 108 98 - 110 mmol/L 11/10/2016 8:48 AM EDT [facility] CO2 24 21 - 33 mmol/L 11/10/2016 8:48 AM EDT [facility] Anion Gap 8 3 - 16 mmol/L 11/10/2016 8:48 AM EDT [facility] BUN 6(L) 7 - 25 mg/dL 11/10/2016 8:48 AM EDT [facility] Creatinine 0.67 0.60 - 1.30 mg/dL 11/10/2016 8:48 AM EDT [facility] Glucose 82 70 - 100 mg/dL 11/10/2016 8:48 AM EDT [facility] Calcium 8.6 8.6 - 10.3 mg/dL 11/10/2016 8:48 AM EDT [facility] Phosphorus 3.2 2.1 - 4.7 mg/dL 11/10/2016 8:48 AM EDT [facility] Albumin 3.1(L) 3.5 - 5.7 g/dL 11/10/2016 8:48 AM EDT [facility] Osmolality, Calculated 287 278 - 305 mOsm/kg 11/10/2016 8:48 AM EDT [facility] eGFR AA CKD-EPI >90 See note. 7 8:48 AM EDT [facility] eGFR NONAA CKD-EPI >90 See note. 11/10/2016 8:48 AM EDT [facility] Plasma specimen (specimen) 11/10/2016 7:37 AM EDT 11/10/2016 8:16 AM EDT Narrative [facility] - 11/10/2016 8:48 AM EDT As [...] equation to estimate glomerular filtration rate. ??Alexa Cardiovascular Sonographer Med. 2009:150(9):604-12 Migue Lynch MD LAB BLOOD ORDERABLES Final Resul t [facility] [address] * (ABNORMAL) CBC (11/10/2016 7:37 AM EDT) WBC 7.5 3.8 - 10.8 10E3/uL 11/10/2016 8:24 AM EDT [facility] RBC 3.16(L) 3.80 - 5.10 10E6/uL 11/10/2016 8:24 AM EDT [facility] Hemoglobin 9.0(L) 11.7 - 15.5 g/dL 11/10/2016 8:24 AM EDT [facility] Hematocrit 26.7(L) 35.0 - 45.0 % 11/10/2016 8:24 AM EDT [facility] MCV 84.4 80.0 - 100.0 fL 11/10/2016 8:24 AM EDT [facility] MCH 28.3 27.0 - 33.0 pg 11/10/2016 8:24 AM EDT [facility] MCHC 33.6 32.0 - 36.0 g/dL 11/10/2016 8:24 AM EDT [facility] RDW 13.6 11.0 - 15.0 % 11/10/2016 8:24 AM EDT [facility] Platelets 211 140 - 400 10E3/uL 11/10/2016 8:24 AM EDT [facility] MPV 7.6 7.5 - 11.5 fL 11/10/2016 8:24 AM EDT [facility] Whole blood specimen (specimen) 11/10/2016 7:37 AM EDT 11/10/2016 8:17 AM EDT Migue Lynch MD LAB BLOOD ORDERABLES Final Resul t [facility] [address] * Phosphorus (11/08/2016 3:57 AM EDT) Phosphorus 3.6 2.1 - 4.7 mg/dL 11/08/2016 5:06 AM EDT [facility] Plasma specimen (specimen) 11/08/2016 3:57 AM EDT 11/08/2016 4:38 AM EDT us Migue Lynch MD LAB BLOOD ORDERABLES Final Resul t Performing Organization Address City/[facility] Co de Phone Number [facility] [address] * Magnesium (11/08/2016 3:57 AM EDT) Magnesium 1.8 1.5 - 2.5 mg/dL 11/08/2016 5:06 AM EDT [facility] Plasma specimen (specimen) 11/08/2016 3:57 AM EDT 11/08/2016 4:38 AM EDT us Migue Lynch MD LAB BLOOD ORDERABLES Final Resul t Performing Organization Address [facility] Phone Number [facility] [address] * (ABNORMAL) Basic metabolic panel (11/08/2016 3:57 AM EDT) Sodium 139 133 - 146 mmol/L 11/08/2016 5:06 AM EDT [facility] Potassium 4.0 3.5 - 5.3 mmol/L 11/08/2016 5:06 AM EDT [facility] Chloride 110 98 - 110 mmol/L 11/08/2016 5:06 AM EDT [facility] CO2 22 21 - 33 mmol/L 11/08/2016 5:06 AM EDT [facility] Anion Gap 7 3 - 16 mmol/L 11/08/2016 5:06 AM EDT [facility] BUN 8 7 - 25 mg/dL 11/08/2016 5:06 AM EDT [facility] Creatinine 0.67 0.60 - 1.30 mg/dL 11/08/2016 5:06 AM EDT [facility] Glucose 89 70 - 100 mg/dL 11/08/2016 5:06 AM EDT [facility] Calcium 8.0(L) 8.6 - 10.3 mg/dL 11/08/2016 5:06 AM EDT [facility] Osmolality, Calculated 286 278 - 305 mOsm/kg 11/08/2016 5:06 AM EDT [facility] eGFR AA CKD-EPI >90 See note. 7 5:06 AM EDT [facility] eGFR NONAA CKD-EPI >90 See note. 11/08/2016 5:06 AM EDT [facility] Plasma specimen (specimen) 11/08/2016 3:57 AM EDT 11/08/2016 4:38 AM EDT Narrative [facility] - 11/08/2016 5:06 AM EDT As [...] equation to estimate glomerular filtration rate. ??Alexa Cardiovascular Sonographer Med. 2009:150(9):604-12 us Migue Lynch MD LAB BLOOD ORDERABLES Final Resul t [facility] [address] [place] [address], [facility] * (ABNORMAL) CBC (11/08/2016 3:57 AM EDT) WBC 12.6(H) 3.8 - 10.8 10E3/uL 11/08/2016 4:44 AM EDT [facility] RBC 3.57(L) 3.80 - 5.10 10E6/uL 11/08/2016 4:44 AM EDT [facility] Hemoglobin 10.1(L) 11.7 - 15.5 g/dL 11/08/2016 4:44 AM EDT [facility] Hematocrit 30.3(L) 35.0 - 45.0 % 11/08/2016 4:44 AM EDT [facility] MCV 85.0 80.0 - 100.0 fL 11/08/2016 4:44 AM EDT [facility] MCH 28.4 27.0 - 33.0 pg 11/08/2016 4:44 AM EDT [facility] MCHC 33.4 32.0 - 36.0 g/dL 11/08/2016 4:44 AM EDT [facility] RDW 13.4 11.0 - 15.0 % 11/08/2016 4:44 AM EDT [facility] Platelets 271 140 - 400 10E3/uL 11/08/2016 4:44 AM EDT [facility] MPV 8.2 7.5 - 11.5 fL 11/08/2016 4:44 AM EDT [facility] Whole blood specimen (specimen) 11/08/2016 3:57 AM EDT 11/08/2016 4:38 AM EDT us Migue Lynch MD LAB BLOOD ORDERABLES Final Resul t Performing Organization Address City/State/[facility] Co de Phone Number [facility] [address] * ANESTHESIA EPIDURAL PLACEMENT (SMARTFORM) (11/07/2016 11:58 [...] after procedure: ??100% Staffing Anesthesiologist: THUAN BARBOZA Resident/SEASONAL CUSTOMER SERVICE ASSOCIATE: VJ ROJAS Performed by: residents Additional Notes [...] a scribe for Dr. Cornell BLANCO 11/07/2016 Deborah Parker MD PROCEDURE/MINOR SURGICAL ORDERA BLES Final Result * POC HCG Qualitative, Urine (11/07/2016 6:50 AM EDT) Preg Test, POC, Ur Negative Negative 11/07/2016 6:51 AM EDT [facility] Urine specimen (specimen) 11/07/2016 6:50 AM EDT 11/07/2016 6:51 AM EDT Deborah Parker MD POINT OF CARE TEST ORDERABLES F inal Result [facility] [address] documented in this encounter Visit Diagnoses Diagnosis Status post exploratory laparotomy- Primary Other postprocedural status Generalized abdominal pain Abdominal pain, generalized Celiac artery stenosis (CMS-HCC) Stricture of artery Generalized abdominal pain Abdominal pain, generalized Celiac artery stenosis (CMS-HCC) Stricture of artery documented in this encounter Administered Medications Inactive Administered Medications - up to 3 most recent administrations Medication Order MAR Action Action Date Dose Rate Site sodium chloride, irrigation 0.9 % irrigation As needed, Starting on Stephanie 11/07/16 at 1445, Intra-op Given 11/07/2016 2:45 PM EDT 2,000 mLs Other documented in this encounter Active and Recently Administered Medications Times are shown in EDT. Scheduled Medication Order 11/08/2016 11/09/2016 11/10/2016 docusate sodium (COLACE) capsule 100 mg 100 mg, Oral, 2 times daily, First dose on Stephanie 11/07/16 at 2100, Hold for diarrhea or loose stools, Post-op 930 (Given - Provider: Dejuan Chester RN)2052 (Given - Provider: Roenl Wilson RN) 919 (Given - Provider: Dejuan Chester RN)2201 (Given - Provider: Tanya Copeland RN) 0843 (Given - Provider: Dejuan Chester RN) heparin (porcine) injection 5,000 Units (COMPLETED) 5,000 Units, Subcutaneous, Every 8 hours, First dose on Stephanie 11/07/16 at 2130, For 4 doses 0536 (Given - Provider: Lucy Draper RN)1348 (Given - Provider: Dejuan Chester, IVETTE)2053 (Given - Provider: Ronel Wilson, IVETTE) heparin (porcine) injection 5,000 Units (CANCELED) 5,000 Units, Subcutaneous, Every 8 hours, First dose (after last reorder) on 11/09/16 at 1200, For 4 days 1112 (Not Given - Provider: Dejuan Chester RN - Reason: Contraindicated - Comment: epidural removed around 0900, will give next dose)2202 (Given - Provider: Tanya Copeland RN) 0404 (Given - Provider: Tanya Copeland RN)1217 (Given - Provider: Dejuan Chester RN) ketorolac (TORADOL) injection 15 mg (CANCELED) 15 mg, Intravenous, Every 8 hours, First dose on [facility] 11/09/16 at 1900, For 4 days 1906 (Given - Provider: Dejuan Chester RN) ketorolac (TORADOL) injection 15 mg (COMPLETED) 15 mg, Intravenous, Every 8 hours, First dose (after last modification) on Spencer 11/10/16 at 0300, For 1 dose 0404 (Given - Provider: Tanya Copeland RN) pantoprazole (PROTONIX) EC tablet 40 mg (CANCELED) 40 mg, Oral, Daily6, First dose on Fri11/08/16 at 0600, Therapeutic Interchange for omeprazole 20mg Oral = pantoprazole 40mg Oral 0536 (Given - Provider: Lucy Draper RN) 0603 (Given - Provider: Ronel Wilson, IVETTE) 0404 (Given - Provider: Tanya Copeland RN) polyethylene glycol (MIRALAX) packet 17 g 17 g, Oral, Daily, First dose on Fri11/08/16 at 0900 0931 (Given - Provider: Dejuan Chester, IVETTE) 0920 (Given - Provider: Dejuan Chester RN) 0843 (Given - Provider: Dejuan Chester RN) sodium chloride 0.9 % flush 10 mL (CANCELED)(Linked Group 1) 10 mL, Intravenous, Every Shift, First dose on Stephanie 11/07/16 at 2100, Post-op 0537 (Given - Provider: Lucy Draper RN)1219 (Given - Provider: Dejuan Chester RN)2052 (Given - Provider: Ronel Wilson RN) 06 (Given - Provider: Ronel Wilson RN)1512 (Given - Provider: Dejuan Chester RN)2202 (Given - Provider: Tanya Copeland RN) 0405 (Given - Provider: Tanya Copeland RN)1217 (Given - Provider: Dejuan Chester RN) topiramate (TOPAMAX) sprinkle capsule 25 mg (CANCELED) 25 mg, Oral, 2 times daily, First dose on Stephanie 11/07/16 at 2100 0931 (Given - Provider: Dejuan Chester RN)205 (Given - Provider: Ronel Wilson RN) 0920 (Given - Provider: Dejuan Chester RN)220 (Given - Provider: Tanya Copeland RN) 0843 (Given - Provider: Dejuan Chester RN) Continuous Medication Order 11/08/2016 11/09/2016 11/10/2016 [...] (CANCELED) Epidural, Continuous, Starting on Fri11/08/16 at 1130, [...] 3 1220 (New Bag - Provider: Dejuan Chester RN) bupivacaine (MARCAINE) 0.125%/HYDROmorphone (DILAUDID) 0.002% in [...] 3 1820 (Rate/Dose Change - Provider: Dejuan Chester RN)1952 (Handoff - Provider: Dejuan Chester RN) 0749 (Handoff - Provider: Dejuan Chester RN) dextrose 5 % and 0.45 % NaCl with KCl 20 mEq infusion 1000 mL (CANCELED) 75 mL/hr, Intravenous, Continuous, Starting on Fri11/08/16 at 0800 0931 (New Bag - Provider: Dejuan Chester RN)2101 (New Bag - Provider: Ronel Wilson [...] 24 hours. 1217 (Given - Provider: Dejuan Chester RN) HYDROmorphone (DILAUDID) injection Syrg 0.5 mg (CANCELED) 0.5 mg, Intravenous, Every 4 hours PRN, moderate pain (NRS-4-6), Starting on 11/09/16 at 1125, If on IV and PO pain medications, use IV if patient cannot tolerate oral. 1115 (Given - Provider: Dejuan Chester RN) HYDROmorphone (DILAUDID) injection Syrg 1 mg (CANCELED)(Linked Group 2) 1 mg, Intravenous, Every 4 hours PRN, severe pain (NRS 7-10), Starting on 11/09/16 at 1430, If on IV and PO pain medications, use IV if patient cannot tolerate oral. 1511 (Given - Provider: Dejuan Chester RN)1906 (Given - Provider: Dejuan Chester RN) ondansetron (ZOFRAN) 4 mg/2 mL injection 4 mg (CANCELED) 4 mg, Intravenous, Every 8 hours PRN, Nausea, for epidural, Starting on Stephanie 11/07/16 at 1229, For 24 hours 0955 (Given - Provider: Dejuan Chester, IVETTE) ondansetron (ZOFRAN) 4 mg/2 mL injection 4 mg (CANCELED) 4 mg, Intravenous, Every 8 hours PRN, Nausea, for epidural, Starting on 11/08/16 at 1123, For 24 hours 2106 (Given - Provider: Ronel Wilson RN) ondansetron (ZOFRAN) 4 mg/2 mL injection 4 mg (CANCELED) 4 mg, Intravenous, Every 6 hours PRN, Nausea and/or Vomiting, Starting on 11/09/17 at 1851 1832 (Given - Provider: Dejuan Chester RN) oxyCODONE (ROXICODONE) immediate release tablet 10 mg(Linked Group 3) 10 mg, Oral, Every 4 hours PRN, severe pain (NRS 7-10), Starting on Fri11/08/16 at 0733 0605 (See Alternative - Provider: Ronel Wilson RN)0920 (Given - Provider: Dejuan Chester RN)1343 (Given - Provider: Dejuan Chester RN)1739 (Given - Provider: Dejuan Chester RN)2202 (Given - Provider: Tanya Copeland RN) 0403 (Given - Provider: Tanya Copeland RN)0842 (Given - Provider: Dejuan Chester RN)1400 (Given - Provider: Dejuan Chester RN)1803 (Given - Provider: Dejuan Chester RN) oxyCODONE (ROXICODONE) immediate release tablet 5 mg (CANCELED)(Linked Group 3) 5 mg, Oral, Every 4 hours PRN, moderate pain (NRS-4-6), Starting on Fri11/08/16 at 0733 0605 (Given - Provider: Ronel Wilson RN)0920 (See Alternative - Provider: Dejuan Chester RN)1343 (See Alternative - Provider: Dejuan Chester RN)1739 (See Alternative - Provider: Dejuan Chester, IVETTE)2202 (See Alternative - Provider: Tanya Copeland RN) 0403 (See Alternative - Provider: Tanya Copeland RN)0842 (See Alternative - Provider: Dejuan Chester RN)1400 (See Alternative - Provider: Dejuan Chester, RN)1803 (See Alternative - Provider: Dejuan Chester, RN) proMETHazine (PHENERGAN) injection 12.5 mg (CANCELED)(Linked Group 4) 12.5 mg, IV PUSH, Every 4 hours PRN, Nausea and/or Vomiting, for epidural. If no improvement, call [facility]., Starting on Fri11/08/16 at 1123, IRRITANT IV Push administration REQUIRES dilution with 10 mL Saline 1348 (Given - Provider: Dejuan Chester RN) Linked Groups Order Group 1: Place [...] Saline documented in this encounter Care Teams Inspector Boiler Relationship Specialty Start Date End Date Marlo Rubio MD PCP - General Family Medicine 10/09/16 documented as of this encounter
--- OUTSIDE RECORDS SUMMARY | 2024-03-14 18:27 | XMS_ITS | Encounter Summary ---
Author Organization [facility] Address [address] [place] [id number] Care Team Providers Care Drug Enforcement Agent Name Role Phone Camila Jasso MD Primary Care Provider [phone] Source Comments This information has been disclosed [...] release of HIV test results or diagnoses. [id number] Health Encounter Details Date Type Department Care Team (Latest Contact Info) Description 12/10/2006 - 04/20/2007 11:59 PM EST Hospital Encounter [facility] at [facility] [address] [place] [address] Ruel Davila MD [address] [facility] [address] [place] [address] Discharge Disposition: Home or Self Care WITHOUT [...] on filedocumented in this encounter Care Teams Drug Enforcement Agent Relationship Specialty Start Date End Date Camila Jasso MD [address] [place] [address] PCP - General 12/03/06 10/08/16 documented as of this encounter
--- OUTSIDE RECORDS SUMMARY | 2024-03-14 18:27 | XMS_ITS | Encounter Summary ---
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 [id number] Health Encounter Details Date Type Department Care Team (Late st Contact Info) Description 12/17/2006 - 12/17/2006 11:59 PM EDT Hospital Encounter OP HISTORICAL [address] [place] [id number] Social History Tobacco Use Types Packs/Day Years [...] Priority Date/Time Associated Diagnosis Comments CT ABDOMEN WITH IV CONTRAST Routine 12/17/2006 6:53 AM EDT documented in this encounter Results * CT Abdomen With contrast (12/17/2006 6:53 AM EDT) Anatomical Region Laterality Modality Abdomen Computed Tomogra phy 12/17/2006 6:53 AM EDT Narrative 12/17/2006 11:13 AM EDT VERIFIED [facility] Reason: ??CHOLANGITIS 576.1 Dict.Staff: CHELA DOWNEY [id number] Verified By: CHELA DOWNEY ?Trice: 12/17/06 ??11:14 am Exams: ??CT-ABDOMEN WITH CONTRAST CT of the abdomen and pelvis, biphasic, with nonionic contrast, dated 12/17/2006 Comparison with previous exam 12/08/2006 Technical note: A biphasic examination was performed after 150 cc of Isovue-370 and water for gastrointestinal distention. Axil images were reconstructed in the coronal plane in both the arterial and venous phases. Findings: Basilar consolidation in the lungs has resolved. Postoperative changes from previous kasai procedure are again noted, with mild intrahepatic biliary ductal dilation and pneumobilia, unchanged from the previous examination. Inflammatory collection is again seen posterior to the gastric antrum and anterior to the pancreas, and continues to decrease in size, with minimal residual gas visible. This measures 1.2 x 1 cm on image 31, and is somewhat difficult to separate from an adjacent small bowel loop. It is also seen on image 16 of the coronal images. Surrounding inflammatory changes are also decreasing. Other than postsurgical changes, the small bowel is otherwise normal in appearance. The spleen, pancreas, kidneys, and adrenal glands are unremarkable. No focal liver lesions are identified. Pelvic organs appear normal, with bilateral ovarian cysts, likely functional. No ascites is seen. Impression abdomen: Continued improvement in inflammatory collection in the mesentery, adjacent to small bowel loop. Surgical changes compatible with previous kasai procedure. Impression pelvis: Unremarkable pelvis CT. end of result Procedure Note Chela Downey MD - 10/24/2011 VERIFIED [facility] Reason: CHOLANGITIS 576.1 Dict.Staff: CHELA DOWNEY [id number] Verified By: CHELA DOWNEY Trice: 12/17/06 11:14 am Exams: CT-ABDOMEN WITH CONTRAST CT of the abdomen and pelvis, biphasic, with nonionic contrast, dated 12/17/2006 Comparison with previous exam 12/08/2006 Technical note: A biphasic examination was performed after 150 cc of Isovue-370 and water for gastrointestinal distention. Axil images were reconstructed in the coronal plane in both the arterial and venous phases. Findings: Basilar consolidation in the lungs has resolved. Postoperative changes from previous kasai procedure are again noted, with mild intrahepatic biliary ductal dilation and pneumobilia, unchanged from the previous examination. Inflammatory collection is again seen posterior to the gastric antrum and anterior to the pancreas, and continues to decrease in size, with minimal residual gas visible. This measures 1.2 x 1 cm on image 31, and is somewhat difficult to separate from an adjacent small bowel loop. It is also seen on image 16 of the coronal images. Surrounding inflammatory changes are also decreasing. Other than postsurgical changes, the small bowel is otherwise normal in appearance. The spleen, pancreas, kidneys, and adrenal glands are unremarkable. No focal liver lesions are identified. Pelvic organs appear normal, with bilateral ovarian cysts, likely functional. No ascites is seen. Impression abdomen: Continued improvement in inflammatory collection in the mesentery, adjacent to small bowel loop. Surgical changes compatible with previous kasai procedure. Impression pelvis: Unremarkable pelvis CT. end of result Fredy Schuster MD IMG CT ORDERABLES Final Result documented in this encounter Visit Diagnoses Not on filedocumented in this encounter Care Teams Upholstery Parts Sorter Relationship Specialty Start Date End Date Camila Jasso MD [address] [place] [address] PCP - General 12/03/06 10/08/16 documented as of this encounter
--- OUTSIDE RECORDS SUMMARY | 2024-03-14 18:27 | XMS_ITS | Encounter Summary ---
Author Organization [facility] Address [address] [place] [id number] Care Team Providers Care Provider Service Representative Name Role Phone Camila Jasso MD Primary Care Provider [phone] Source Comments This information has been disclosed [...] release of HIV test results or diagnoses. [id number] Health Encounter Details Date Type Department Care Team (Latest Contact Info) Description 06/16/2009 5:57 AM EST - 06/16/2009 6:10 PM EST Hospital Encounter Perioperative Services [address] [place] [phone] Rigoberto Kelly MD Discharge Disposition: Home or Self Care [...] Name Priority Date/Time Associated Diagnosis Comments IR US GUIDED NEEDLE PLACEMENT S-I Routine 06/16/2009 12:15 PM EST IR INJ CHOLANGIOGRAPHY TRANSHEPATIC PERC Routine 06/16/2009 12:15 PM EST IR BILIARY DILATION WITH STENT Routine 06/16/2009 12:15 PM EST IR BILIARY DILATION W OR WO STENT S-I Routine 06/16/2009 12:15 PM EST IR CHOLANGIOGRAM TRANSHEPATIC PERC S-I Routine 06/16/2009 12:15 PM EST documented in this encounter Results * IR Biliary dilation with stent (06/16/2009 12:15 PM EST) Anatomical Region Laterality Modality Abdomen X-Ray Angiograph y 06/16/2009 12:1 5 PM EST Narrative 06/19/2009 3:47 PM EST ? [facility] Patient: [place] CHILDRESS : ? 1980 Accn#: ?? [id number] ?Interventional Radiology Exam Date/Time 06/16/2009 12:15 EST 06/16/2009 12:15 EST 06/16/2009 12:15 EST 06/16/2009 12:15 EST 06/16/2009 12:15 EST Reason for Exam: (ANG-INJ CHOLANG TRANSHEP PERC) ??BILIARY OBSTRUCTION (ANG-CHOLANGIO PERC TRANS S&I) ??BILIARY OBSTRUCTION (ANG-BILIARY DIL W/ STENT) ??BILIARY OBSTRUCTION (ANG-BILI DIL W OR WO STENT S&I) ??BILIARY OBSTRUCTION (ANG-US GUIDE NEEDLE PLACE S&I) ??BILIARY OBSTRUCTION Report Total fluoroscopy time: 15.6 minutes. Procedures: 1) PERCUTANEOUS TRANSHEPATIC CHOLANGIOGRAM (PTC), ULTRASOUND AND FLUOROSCOPIC-GUIDED 2) BILIARY CATHETER PLACEMENT, FLUOROSCOPIC-GUIDED Performed on 06/16/2009. Indications: Status post Kasai procedure for biliary atresia. On dilation of the left hepatic ducts with a stone demonstrated by endoscopic ultrasound. Operators: Dr. Pino (VIR Fellow), Dr. Canas(Timber Sizer Operator), and Dr. Nielsen (VIR Attending) were present for the entire procedure. Comparison: Abdominal CT dated 06/12/2009. Procedure / Findings: ??The procedure was performed in the VIR suite following informed consent. ??The patient received preprocedure IV antibiotics. ??The patient was intubated and received general anesthesia under the care of an anesthesiologist. ??With the patient in the supine position, the upper abdomen was prepped and draped in the usual sterile fashion. A subxiphoid percutaneous entry site was identified. Using ultrasound guidance, a 15 cm, 21-G Echotip needle was inserted into a peripheral duct draining segment 3 of the left hepatic lobe. ??Previously injected contrast in the intrahepatic ducts was used as a target. ??Using fluoroscopic guidance, contrast was gently injected through the needle (to opacify a bile duct), as the needle was withdrawn. ??After several needle passes, a bile duct was successfully entered as confirmed by contrast injection. ??The following cholangiogram demonstrated a focal stricture of the main duct draining the lateral segment of the left hepatic lobe. There was prompt drainage of the inject contrast across the hepaticojejunostomy anastomosis into the jejunum. A 0.018 inch Nitrex guidewire was advanced through the needle into the left biliary duct, and into the common bile duct. ??Grebb set was inserted over the 0.018 inch guidewire. ??Using fluoroscopic guidance, a 0.035 inch guidewire was inserted through the catheter. ??A 40 cm, 5-F Kumpe catheter was advanced over the guidewire. ??Using fluoroscopic guidance, a glidewire advantage and Kumpe catheter were advanced down the common duct to the small bowel. ??The Glidewire was exchanged for a 0.038 inch Amplatz guidewire. ??The track was dilated to 14-F. ??Using a 9 mm x 4 cm Conquest balloon catheter the region of the biliary stricture was balloon plasty open. Using fluoroscopic guidance, 16-F internal / external biliary drainage catheter was placed over the guidewire. ??By fluoroscopy, the biliary catheter was positioned with the upper side holes along the peripheral left intrahepatic ducts and the distal catheter positioned in the small bowel. The biliary catheter was secured with suture and dressed in the usual fashion. ??The catheter was placed to bag drainage. General anesthesia was reversed and the patient was extubated. ??The patient was transferred to the PACU under the care of the anesthesiologist. There were no immediate complications. IMPRESSION: 1. Successful ultrasound and fluoroscopic guided, percutaneous transhepatic cholangiogram. 2. Focal intrahepatic structure of the left lateral segmental duct, dilated to 9 mm, using a Conquest balloon catheter. 2. Successful placement of a 14 -F, internal / external, skater biliary drainage catheter using a left intrahepatic biliary duct. 3. Patent hepaticojejunostomy anastomosis to right and left biliary systems. VERIFIED REPORT Dictated: 06/19/2009 3:49 pm ?ANAY CANAS M.D. Signed (Electronic Signature): ??CHRISTOPHER NIELSEN M.D. ? 06/20/09 2:05 Resident: ??ANAY CANAS M.D. Technologist: ABDIAS NORMAN Procedure Note Christopher Nielsen MD - 10/30/2011 [facility] Patient: [place] [facility] 1980 [id number] Interventional Radiology Exam Date/Time 06/16/2009 12:15 EST 06/16/2009 12:15 EST 06/16/2009 12:15 EST 06/16/2009 12:15 EST 06/16/2009 12:15 EST Reason for Exam: (ANG-INJ CHOLANG TRANSHEP PERC) BILIARY OBSTRUCTION (ANG-CHOLANGIO PERC TRANS S&I) BILIARY OBSTRUCTION (ANG-BILIARY DIL W/ STENT) BILIARY OBSTRUCTION (ANG-BILI DIL W OR WO STENT S&I) BILIARY OBSTRUCTION (ANG-US GUIDE NEEDLE PLACE S&I) BILIARY OBSTRUCTION Report Total fluoroscopy time: 15.6 minutes. Procedures: 1) PERCUTANEOUS TRANSHEPATIC CHOLANGIOGRAM (PTC), ULTRASOUND AND FLUOROSCOPIC-GUIDED 2) BILIARY CATHETER PLACEMENT, FLUOROSCOPIC-GUIDED Performed on 06/16/2009. Indications: Status post Kasai procedure for biliary atresia. Ondilation of the left hepatic ducts with a stone demonstrated by endoscopic ultrasound. Operators: Dr. Pino (VIR Fellow), Dr. Canas(Timber Sizer Operator),and Dr. Nielsen (VIR Attending) were present for the entire procedure. Comparison: Abdominal CT dated 06/12/2009. Procedure / Findings: The procedure was performed in the VIR suite following informed consent. The patient received preprocedure IV antibiotics. The patient was intubated and received general anesthesia under the care of an anesthesiologist. With the patient in the supine position, the upper abdomen was prepped and draped in the usual sterile fashion. A subxiphoid percutaneous entry site was identified. Using ultrasound guidance, a 15 cm, 21-G Echotip needle was inserted intoa peripheral duct draining segment 3 of the left hepatic lobe.Previously injected contrast in the intrahepatic ducts was used as a target.Using fluoroscopic guidance, contrast was gently injected through the needle(to opacify a bile duct), as the needle was withdrawn. After severalneedle passes, a bile duct was successfully entered as confirmed by contrast injection. The following cholangiogram demonstrated a focal strictureof the main duct draining the lateral segment of the left hepatic lobe.There was prompt drainage of the inject contrast across thehepaticojejunostomy anastomosis into the jejunum. A 0.018 inch Nitrex guidewire was advanced through the needle into theleft biliary duct, and into the common bile duct. Grebb set was insertedover the 0.018 inch guidewire. Using fluoroscopic guidance, a 0.035 inch guidewire was inserted through the catheter. A 40 cm, 5-F Kumpecatheter was advanced over the guidewire. Using fluoroscopic guidance, aglidewire advantage and Kumpe catheter were advanced down the common duct to the small bowel. The Glidewire was exchanged for a 0.038 inch Amplatz guidewire. The track was dilated to 14-F. Using a 9 mm x 4 cmConquest balloon catheter the region of the biliary stricture was balloon plasty open. Using fluoroscopic guidance, 16-F internal / external biliary drainage catheter was placed over the guidewire. By fluoroscopy, the biliary catheter was positioned with the upper side holes along the peripheral left intrahepatic ducts and the distal catheter positionedin the small bowel. The biliary catheter was secured with suture and dressed in the usual fashion. The catheter was placed to bag drainage. General anesthesia was reversed and the patient was extubated. Thepatient was transferred to the PACU under the care of the anesthesiologist. There were no immediate complications. IMPRESSION: 1. Successful ultrasound and fluoroscopic guided, percutaneoustranshepatic cholangiogram. 2. Focal intrahepatic structure of the left lateral segmental duct,dilated to 9 mm, using a Conquest balloon catheter. 2. Successful placement of a 14 -F, internal / external, skater biliary drainage catheter using a left intrahepatic biliary duct. 3. Patent hepaticojejunostomy anastomosis to right and left biliary systems. VERIFIED REPORT Dictated: 06/19/2009 3:49 pm ANAY CANAS M.D. Signed (Electronic Signature): CHRISTOPHER NIELSEN M.D. N03/05/31 2:05 Resident: ANAY CANSA M.D. Technologist: ABDIAS NORMAN us Rigoberto Kelly MD IMG IR ORDERABLES Final Result * IR US guided needle placment S-I (06/16/2009 12:15 PM EST) Anatomical Region Laterality Modality X-Ray Angiograph y 06/16/2009 12:1 5 PM EST Narrative 06/19/2009 3:47 PM EST ? [facility] Patient: [place] CHILDRESS : ? 1980 Accn#: ?? [id number] ?Interventional Radiology Exam Date/Time 06/16/2009 12:15 EST 06/16/2009 12:15 EST 06/16/2009 12:15 EST 06/16/2009 12:15 EST 06/16/2009 12:15 EST Reason for Exam: (ANG-INJ CHOLANG TRANSHEP PERC) ??BILIARY OBSTRUCTION (ANG-CHOLANGIO PERC TRANS S&I) ??BILIARY OBSTRUCTION (ANG-BILIARY DIL W/ STENT) ??BILIARY OBSTRUCTION (ANG-BILI DIL W OR WO STENT S&I) ??BILIARY OBSTRUCTION (ANG-US GUIDE NEEDLE PLACE S&I) ??BILIARY OBSTRUCTION Report Total fluoroscopy time: 15.6 minutes. Procedures: 1) PERCUTANEOUS TRANSHEPATIC CHOLANGIOGRAM (PTC), ULTRASOUND AND FLUOROSCOPIC-GUIDED 2) BILIARY CATHETER PLACEMENT, FLUOROSCOPIC-GUIDED Performed on 06/16/2009. Indications: Status post Kasai procedure for biliary atresia. On dilation of the left hepatic ducts with a stone demonstrated by endoscopic ultrasound. Operators: Dr. Pino (VIR Fellow), Dr. Canas(Timber Sizer Operator), and Dr. Nielsen (VIR Attending) were present for the entire procedure. Comparison: Abdominal CT dated 06/12/2009. Procedure / Findings: ??The procedure was performed in the VIR suite following informed consent. ??The patient received preprocedure IV antibiotics. ??The patient was intubated and received general anesthesia under the care of an anesthesiologist. ??With the patient in the supine position, the upper abdomen was prepped and draped in the usual sterile fashion. A subxiphoid percutaneous entry site was identified. Using ultrasound guidance, a 15 cm, 21-G Echotip needle was inserted into a peripheral duct draining segment 3 of the left hepatic lobe. ??Previously injected contrast in the intrahepatic ducts was used as a target. ??Using fluoroscopic guidance, contrast was gently injected through the needle (to opacify a bile duct), as the needle was withdrawn. ??After several needle passes, a bile duct was successfully entered as confirmed by contrast injection. ??The following cholangiogram demonstrated a focal stricture of the main duct draining the lateral segment of the left hepatic lobe. There was prompt drainage of the inject contrast across the hepaticojejunostomy anastomosis into the jejunum. A 0.018 inch Nitrex guidewire was advanced through the needle into the left biliary duct, and into the common bile duct. ??Grebb set was inserted over the 0.018 inch guidewire. ??Using fluoroscopic guidance, a 0.035 inch guidewire was inserted through the catheter. ??A 40 cm, 5-F Kumpe catheter was advanced over the guidewire. ??Using fluoroscopic guidance, a glidewire advantage and Kumpe catheter were advanced down the common duct to the small bowel. ??The Glidewire was exchanged for a 0.038 inch Amplatz guidewire. ??The track was dilated to 14-F. ??Using a 9 mm x 4 cm Conquest balloon catheter the region of the biliary stricture was balloon plasty open. Using fluoroscopic guidance, 16-F internal / external biliary drainage catheter was placed over the guidewire. ??By fluoroscopy, the biliary catheter was positioned with the upper side holes along the peripheral left intrahepatic ducts and the distal catheter positioned in the small bowel. The biliary catheter was secured with suture and dressed in the usual fashion. ??The catheter was placed to bag drainage. General anesthesia was reversed and the patient was extubated. ??The patient was transferred to the PACU under the care of the anesthesiologist. There were no immediate complications. IMPRESSION: 1. Successful ultrasound and fluoroscopic guided, percutaneous transhepatic cholangiogram. 2. Focal intrahepatic structure of the left lateral segmental duct, dilated to 9 mm, using a Conquest balloon catheter. 2. Successful placement of a 14 -F, internal / external, skater biliary drainage catheter using a left intrahepatic biliary duct. 3. Patent hepaticojejunostomy anastomosis to right and left biliary systems. VERIFIED REPORT Dictated: 06/19/2009 3:49 pm ?ANAY CANAS M.D. Signed (Electronic Signature): ??CHRISTOPHER NIELSEN M.D. ? 06/20/09 2:05 Resident: ??ANAY CANAS M.D. Technologist: ABDIAS NORMAN Procedure Note Christopher Nielsen MD - 10/25/2011 [facility] Patient: [place] [facility]DR[facility] 1980 [id number] Interventional Radiology Exam Date/Time 06/16/2009 12:15 EST 06/16/2009 12:15 EST 06/16/2009 12:15 EST 06/16/2009 12:15 EST 06/16/2009 12:15 EST Reason for Exam: (ANG-INJ CHOLANG TRANSHEP PERC) BILIARY OBSTRUCTION (ANG-CHOLANGIO PERC TRANS S&I) BILIARY OBSTRUCTION (ANG-BILIARY DIL W/ STENT) BILIARY OBSTRUCTION (ANG-BILI DIL W OR WO STENT S&I) BILIARY OBSTRUCTION (ANG-US GUIDE NEEDLE PLACE S&I) BILIARY OBSTRUCTION Report Total fluoroscopy time: 15.6 minutes. Procedures: 1) PERCUTANEOUS TRANSHEPATIC CHOLANGIOGRAM (PTC), ULTRASOUND AND FLUOROSCOPIC-GUIDED 2) BILIARY CATHETER PLACEMENT, FLUOROSCOPIC-GUIDED Performed on 06/16/2009. Indications: Status post Kasai procedure for biliary atresia. Ondilation of the left hepatic ducts with a stone demonstrated by endoscopic ultrasound. Operators: Dr. Pino (VIR Fellow), Dr. Canas(Timber Sizer Operator),and Dr. Nielsen (VIR Attending) were present for the entire procedure. Comparison: Abdominal CT dated 06/12/2009. Procedure / Findings: The procedure was performed in the VIR suite following informed consent. The patient received preprocedure IV antibiotics. The patient was intubated and received general anesthesia under the care of an anesthesiologist. With the patient in the supine position, the upper abdomen was prepped and draped in the usual sterile fashion. A subxiphoid percutaneous entry site was identified. Using ultrasound guidance, a 15 cm, 21-G Echotip needle was inserted intoa peripheral duct draining segment 3 of the left hepatic lobe.Previously injected contrast in the intrahepatic ducts was used as a target.Using fluoroscopic guidance, contrast was gently injected through the needle(to opacify a bile duct), as the needle was withdrawn. After severalneedle passes, a bile duct was successfully entered as confirmed by contrast injection. The following cholangiogram demonstrated a focal strictureof the main duct draining the lateral segment of the left hepatic lobe.There was prompt drainage of the inject contrast across thehepaticojejunostomy anastomosis into the jejunum. A 0.018 inch Nitrex guidewire was advanced through the needle into theleft biliary duct, and into the common bile duct. Grebb set was insertedover the 0.018 inch guidewire. Using fluoroscopic guidance, a 0.035 inch guidewire was inserted through the catheter. A 40 cm, 5-F Kumpecatheter was advanced over the guidewire. Using fluoroscopic guidance, aglidewire advantage and Kumpe catheter were advanced down the common duct to the small bowel. The Glidewire was exchanged for a 0.038 inch Amplatz guidewire. The track was dilated to 14-F. Using a 9 mm x 4 cmConquest balloon catheter the region of the biliary stricture was balloon plasty open. Using fluoroscopic guidance, 16-F internal / external biliary drainage catheter was placed over the guidewire. By fluoroscopy, the biliary catheter was positioned with the upper side holes along the peripheral left intrahepatic ducts and the distal catheter positionedin the small bowel. The biliary catheter was secured with suture and dressed in the usual fashion. The catheter was placed to bag drainage. General anesthesia was reversed and the patient was extubated. Thepatient was transferred to the PACU under the care of the anesthesiologist. There were no immediate complications. IMPRESSION: 1. Successful ultrasound and fluoroscopic guided, percutaneoustranshepatic cholangiogram. 2. Focal intrahepatic structure of the left lateral segmental duct,dilated to 9 mm, using a Conquest balloon catheter. 2. Successful placement of a 14 -F, internal / external, skater biliary drainage catheter using a left intrahepatic biliary duct. 3. Patent hepaticojejunostomy anastomosis to right and left biliary systems. VERIFIED REPORT Dictated: 06/19/2009 3:49 pm ANAY CANAS M.D. Signed (Electronic Signature): CHRISTOPHER NIELSEN M.D. N03/05/31 2:05 Resident: ANAY CANAS M.D. Technologist: ABDIAS NORMAN Rigoberto Kelly MD IM IR ORDERABLES Final Result * IR biliary dilation w or wo stent S-I (06/16/2009 12:15 PM EST) Anatomical Region Laterality Modality Abdomen X-Ray Angiograph y 06/16/2009 12:1 5 PM EST Narrative 06/19/2009 3:47 PM EST ? [facility] Patient: [place] CHILDRESS : ? 1980 Accn#: ?? [id number] ?Interventional Radiology Exam Date/Time 06/16/2009 12:15 EST 06/16/2009 12:15 EST 06/16/2009 12:15 EST 06/16/2009 12:15 EST 06/16/2009 12:15 EST Reason for Exam: (ANG-INJ CHOLANG TRANSHEP PERC) ??BILIARY OBSTRUCTION (ANG-CHOLANGIO PERC TRANS S&I) ??BILIARY OBSTRUCTION (ANG-BILIARY DIL W/ STENT) ??BILIARY OBSTRUCTION (ANG-BILI DIL W OR WO STENT S&I) ??BILIARY OBSTRUCTION (ANG-US GUIDE NEEDLE PLACE S&I) ??BILIARY OBSTRUCTION Report Total fluoroscopy time: 15.6 minutes. Procedures: 1) PERCUTANEOUS TRANSHEPATIC CHOLANGIOGRAM (PTC), ULTRASOUND AND FLUOROSCOPIC-GUIDED 2) BILIARY CATHETER PLACEMENT, FLUOROSCOPIC-GUIDED Performed on 06/16/2009. Indications: Status post Kasai procedure for biliary atresia. On dilation of the left hepatic ducts with a stone demonstrated by endoscopic ultrasound. Operators: Dr. Pino (VIR Fellow), Dr. Canas(Timber Sizer Operator), and Dr. Nielsen (VIR Attending) were present for the entire procedure. Comparison: Abdominal CT dated 06/12/2009. Procedure / Findings: ??The procedure was performed in the VIR suite following informed consent. ??The patient received preprocedure IV antibiotics. ??The patient was intubated and received general anesthesia under the care of an anesthesiologist. ??With the patient in the supine position, the upper abdomen was prepped and draped in the usual sterile fashion. A subxiphoid percutaneous entry site was identified. Using ultrasound guidance, a 15 cm, 21-G Echotip needle was inserted into a peripheral duct draining segment 3 of the left hepatic lobe. ??Previously injected contrast in the intrahepatic ducts was used as a target. ??Using fluoroscopic guidance, contrast was gently injected through the needle (to opacify a bile duct), as the needle was withdrawn. ??After several needle passes, a bile duct was successfully entered as confirmed by contrast injection. ??The following cholangiogram demonstrated a focal stricture of the main duct draining the lateral segment of the left hepatic lobe. There was prompt drainage of the inject contrast across the hepaticojejunostomy anastomosis into the jejunum. A 0.018 inch Nitrex guidewire was advanced through the needle into the left biliary duct, and into the common bile duct. ??Grebb set was inserted over the 0.018 inch guidewire. ??Using fluoroscopic guidance, a 0.035 inch guidewire was inserted through the catheter. ??A 40 cm, 5-F Kumpe catheter was advanced over the guidewire. ??Using fluoroscopic guidance, a glidewire advantage and Kumpe catheter were advanced down the common duct to the small bowel. ??The Glidewire was exchanged for a 0.038 inch Amplatz guidewire. ??The track was dilated to 14-F. ??Using a 9 mm x 4 cm Conquest balloon catheter the region of the biliary stricture was balloon plasty open. Using fluoroscopic guidance, 16-F internal / external biliary drainage catheter was placed over the guidewire. ??By fluoroscopy, the biliary catheter was positioned with the upper side holes along the peripheral left intrahepatic ducts and the distal catheter positioned in the small bowel. The biliary catheter was secured with suture and dressed in the usual fashion. ??The catheter was placed to bag drainage. General anesthesia was reversed and the patient was extubated. ??The patient was transferred to the PACU under the care of the anesthesiologist. There were no immediate complications. IMPRESSION: 1. Successful ultrasound and fluoroscopic guided, percutaneous transhepatic cholangiogram. 2. Focal intrahepatic structure of the left lateral segmental duct, dilated to 9 mm, using a Conquest balloon catheter. 2. Successful placement of a 14 -F, internal / external, skater biliary drainage catheter using a left intrahepatic biliary duct. 3. Patent hepaticojejunostomy anastomosis to right and left biliary systems. VERIFIED REPORT Dictated: 06/19/2009 3:49 pm ?ANAY CANAS M.D. Signed (Electronic Signature): ??CHRISTOPHER NIELSEN M.D. ? 06/20/09 2:05 Resident: ??ANAY CANAS M.D. Technologist: ABDIAS NORMAN Procedure Note Christopher Nielsen MD - 10/25/2011 [facility] Patient: [place] CHILDRESS : 1980 [facility]: [id number] [facility]#: [id number] Interventional Radiology Exam Date/Time 06/16/2009 12:15 EST 06/16/2009 12:15 EST 06/16/2009 12:15 EST 06/16/2009 12:15 EST 06/16/2009 12:15 EST Reason for Exam: (ANG-INJ CHOLANG TRANSHEP PERC) BILIARY OBSTRUCTION (ANG-CHOLANGIO PERC TRANS S&I) BILIARY OBSTRUCTION (ANG-BILIARY DIL W/ STENT) BILIARY OBSTRUCTION (ANG-BILI DIL W OR WO STENT S&I) BILIARY OBSTRUCTION (ANG-US GUIDE NEEDLE PLACE S&I) BILIARY OBSTRUCTION Report Total fluoroscopy time: 15.6 minutes. Procedures: 1) PERCUTANEOUS TRANSHEPATIC CHOLANGIOGRAM (PTC), ULTRASOUND AND FLUOROSCOPIC-GUIDED 2) BILIARY CATHETER PLACEMENT, FLUOROSCOPIC-GUIDED Performed on 06/16/2009. Indications: Status post Kasai procedure for biliary atresia. Ondilation of the left hepatic ducts with a stone demonstrated by endoscopic ultrasound. Operators: Dr. Pino (VIR Fellow), Dr. Canas(Timber Sizer Operator),and Dr. Nielsen (VIR Attending) were present for the entire procedure. Comparison: Abdominal CT dated 06/12/2009. Procedure / Findings: The procedure was performed in the VIR suite following informed consent. The patient received preprocedure IV antibiotics. The patient was intubated and received general anesthesia under the care of an anesthesiologist. With the patient in the supine position, the upper abdomen was prepped and draped in the usual sterile fashion. A subxiphoid percutaneous entry site was identified. Using ultrasound guidance, a 15 cm, 21-G Echotip needle was inserted intoa peripheral duct draining segment 3 of the left hepatic lobe.Previously injected contrast in the intrahepatic ducts was used as a target.Using fluoroscopic guidance, contrast was gently injected through the needle(to opacify a bile duct), as the needle was withdrawn. After severalneedle passes, a bile duct was successfully entered as confirmed by contrast injection. The following cholangiogram demonstrated a focal strictureof the main duct draining the lateral segment of the left hepatic lobe.There was prompt drainage of the inject contrast across thehepaticojejunostomy anastomosis into the jejunum. A 0.018 inch Nitrex guidewire was advanced through the needle into theleft biliary duct, and into the common bile duct. Grebb set was insertedover the 0.018 inch guidewire. Using fluoroscopic guidance, a 0.035 inch guidewire was inserted through the catheter. A 40 cm, 5-F Kumpecatheter was advanced over the guidewire. Using fluoroscopic guidance, aglidewire advantage and Kumpe catheter were advanced down the common duct to the small bowel. The Glidewire was exchanged for a 0.038 inch Amplatz guidewire. The track was dilated to 14-F. Using a 9 mm x 4 cmConquest balloon catheter the region of the biliary stricture was balloon plasty open. Using fluoroscopic guidance, 16-F internal / external biliary drainage catheter was placed over the guidewire. By fluoroscopy, the biliary catheter was positioned with the upper side holes along the peripheral left intrahepatic ducts and the distal catheter positionedin the small bowel. The biliary catheter was secured with suture and dressed in the usual fashion. The catheter was placed to bag drainage. General anesthesia was reversed and the patient was extubated. Thepatient was transferred to the PACU under the care of the anesthesiologist. There were no immediate complications. IMPRESSION: 1. Successful ultrasound and fluoroscopic guided, percutaneoustranshepatic cholangiogram. 2. Focal intrahepatic structure of the left lateral segmental duct,dilated to 9 mm, using a Conquest balloon catheter. 2. Successful placement of a 14 -F, internal / external, skater biliary drainage catheter using a left intrahepatic biliary duct. 3. Patent hepaticojejunostomy anastomosis to right and left biliary systems. VERIFIED REPORT Dictated: 06/19/2009 3:49 pm ANAY CANAS M.D. Signed (Electronic Signature): CHRISTOPHER NIELSEN M.D. N03 2:05 Resident: ANAY CANAS M.D. Technologist: ABDIAS NORMAN Rigoberto Kelly MD IMG IR ORDERABLES Final Result * IR Cholangiogram xhepatic perc (06/16/2009 12:15 PM EST) Anatomical Region Laterality Modality Abdomen, Vascular X-Ray Angiogra phy 06/16/2009 12:1 5 PM EST Narrative 06/19/2009 3:47 PM EST ? [facility] Patient: [place] CHILDRESS : ? 1980 Accn#: ?? [id number] ?Interventional Radiology Exam Date/Time 06/16/2009 12:15 EST 06/16/2009 12:15 EST 06/16/2009 12:15 EST 06/16/2009 12:15 EST 06/16/2009 12:15 EST Reason for Exam: (ANG-INJ CHOLANG TRANSHEP PERC) ??BILIARY OBSTRUCTION (ANG-CHOLANGIO PERC TRANS S&I) ??BILIARY OBSTRUCTION (ANG-BILIARY DIL W/ STENT) ??BILIARY OBSTRUCTION (ANG-BILI DIL W OR WO STENT S&I) ??BILIARY OBSTRUCTION (ANG-US GUIDE NEEDLE PLACE S&I) ??BILIARY OBSTRUCTION Report Total fluoroscopy time: 15.6 minutes. Procedures: 1) PERCUTANEOUS TRANSHEPATIC CHOLANGIOGRAM (PTC), ULTRASOUND AND FLUOROSCOPIC-GUIDED 2) BILIARY CATHETER PLACEMENT, FLUOROSCOPIC-GUIDED Performed on 06/16/2009. Indications: Status post Kasai procedure for biliary atresia. On dilation of the left hepatic ducts with a stone demonstrated by endoscopic ultrasound. Operators: Dr. Pino (VIR Fellow), Dr. Canas(Timber Sizer Operator), and Dr. Nielsen (VIR Attending) were present for the entire procedure. Comparison: Abdominal CT dated 06/12/2009. Procedure / Findings: ??The procedure was performed in the VIR suite following informed consent. ??The patient received preprocedure IV antibiotics. ??The patient was intubated and received general anesthesia under the care of an anesthesiologist. ??With the patient in the supine position, the upper abdomen was prepped and draped in the usual sterile fashion. A subxiphoid percutaneous entry site was identified. Using ultrasound guidance, a 15 cm, 21-G Echotip needle was inserted into a peripheral duct draining segment 3 of the left hepatic lobe. ??Previously injected contrast in the intrahepatic ducts was used as a target. ??Using fluoroscopic guidance, contrast was gently injected through the needle (to opacify a bile duct), as the needle was withdrawn. ??After several needle passes, a bile duct was successfully entered as confirmed by contrast injection. ??The following cholangiogram demonstrated a focal stricture of the main duct draining the lateral segment of the left hepatic lobe. There was prompt drainage of the inject contrast across the hepaticojejunostomy anastomosis into the jejunum. A 0.018 inch Nitrex guidewire was advanced through the needle into the left biliary duct, and into the common bile duct. ??Grebb set was inserted over the 0.018 inch guidewire. ??Using fluoroscopic guidance, a 0.035 inch guidewire was inserted through the catheter. ??A 40 cm, 5-F Kumpe catheter was advanced over the guidewire. ??Using fluoroscopic guidance, a glidewire advantage and Kumpe catheter were advanced down the common duct to the small bowel. ??The Glidewire was exchanged for a 0.038 inch Amplatz guidewire. ??The track was dilated to 14-F. ??Using a 9 mm x 4 cm Conquest balloon catheter the region of the biliary stricture was balloon plasty open. Using fluoroscopic guidance, 16-F internal / external biliary drainage catheter was placed over the guidewire. ??By fluoroscopy, the biliary catheter was positioned with the upper side holes along the peripheral left intrahepatic ducts and the distal catheter positioned in the small bowel. The biliary catheter was secured with suture and dressed in the usual fashion. ??The catheter was placed to bag drainage. General anesthesia was reversed and the patient was extubated. ??The patient was transferred to the PACU under the care of the anesthesiologist. There were no immediate complications. IMPRESSION: 1. Successful ultrasound and fluoroscopic guided, percutaneous transhepatic cholangiogram. 2. Focal intrahepatic structure of the left lateral segmental duct, dilated to 9 mm, using a Conquest balloon catheter. 2. Successful placement of a 14 -F, internal / external, skater biliary drainage catheter using a left intrahepatic biliary duct. 3. Patent hepaticojejunostomy anastomosis to right and left biliary systems. VERIFIED REPORT Dictated: 06/19/2009 3:49 pm ?ANAY CANAS M.D. Signed (Electronic Signature): ??CHRISTOPHER NIELSEN M.D. ? 06/20/09 2:05 Resident: ??ANAY CANAS M.D. Technologist: ABDIAS NORMAN Procedure Note Christopher Nielsen MD - 10/25/2011 [facility] Patient: [place] [facility] 1980 [id number] Interventional Radiology Exam Date/Time 06/16/2009 12:15 EST 06/16/2009 12:15 EST 06/16/2009 12:15 EST 06/16/2009 12:15 EST 06/16/2009 12:15 EST Reason for Exam: (ANG-INJ CHOLANG TRANSHEP PERC) BILIARY OBSTRUCTION (ANG-CHOLANGIO PERC TRANS S&I) BILIARY OBSTRUCTION (ANG-BILIARY DIL W/ STENT) BILIARY OBSTRUCTION (ANG-BILI DIL W OR WO STENT S&I) BILIARY OBSTRUCTION (ANG-US GUIDE NEEDLE PLACE S&I) BILIARY OBSTRUCTION Report Total fluoroscopy time: 15.6 minutes. Procedures: 1) PERCUTANEOUS TRANSHEPATIC CHOLANGIOGRAM (PTC), ULTRASOUND AND FLUOROSCOPIC-GUIDED 2) BILIARY CATHETER PLACEMENT, FLUOROSCOPIC-GUIDED Performed on 06/16/2009. Indications: Status post Kasai procedure for biliary atresia. Ondilation of the left hepatic ducts with a stone demonstrated by endoscopic ultrasound. Operators: Dr. Pino (VIR Fellow), Dr. Canas(Timber Sizer Operator),and Dr. Nielsen (VIR Attending) were present for the entire procedure. Comparison: Abdominal CT dated 06/12/2009. Procedure / Findings: The procedure was performed in the VIR suite following informed consent. The patient received preprocedure IV antibiotics. The patient was intubated and received general anesthesia under the care of an anesthesiologist. With the patient in the supine position, the upper abdomen was prepped and draped in the usual sterile fashion. A subxiphoid percutaneous entry site was identified. Using ultrasound guidance, a 15 cm, 21-G Echotip needle was inserted intoa peripheral duct draining segment 3 of the left hepatic lobe.Previously injected contrast in the intrahepatic ducts was used as a target.Using fluoroscopic guidance, contrast was gently injected through the needle(to opacify a bile duct), as the needle was withdrawn. After severalneedle passes, a bile duct was successfully entered as confirmed by contrast injection. The following cholangiogram demonstrated a focal strictureof the main duct draining the lateral segment of the left hepatic lobe.There was prompt drainage of the inject contrast across thehepaticojejunostomy anastomosis into the jejunum. A 0.018 inch Nitrex guidewire was advanced through the needle into theleft biliary duct, and into the common bile duct. Grebb set was insertedover the 0.018 inch guidewire. Using fluoroscopic guidance, a 0.035 inch guidewire was inserted through the catheter. A 40 cm, 5-F Kumpecatheter was advanced over the guidewire. Using fluoroscopic guidance, aglidewire advantage and Kumpe catheter were advanced down the common duct to the small bowel. The Glidewire was exchanged for a 0.038 inch Amplatz guidewire. The track was dilated to 14-F. Using a 9 mm x 4 cmConquest balloon catheter the region of the biliary stricture was balloon plasty open. Using fluoroscopic guidance, 16-F internal / external biliary drainage catheter was placed over the guidewire. By fluoroscopy, the biliary catheter was positioned with the upper side holes along the peripheral left intrahepatic ducts and the distal catheter positionedin the small bowel. The biliary catheter was secured with suture and dressed in the usual fashion. The catheter was placed to bag drainage. General anesthesia was reversed and the patient was extubated. Thepatient was transferred to the PACU under the care of the anesthesiologist. There were no immediate complications. IMPRESSION: 1. Successful ultrasound and fluoroscopic guided, percutaneoustranshepatic cholangiogram. 2. Focal intrahepatic structure of the left lateral segmental duct,dilated to 9 mm, using a Conquest balloon catheter. 2. Successful placement of a 14 -F, internal / external, skater biliary drainage catheter using a left intrahepatic biliary duct. 3. Patent hepaticojejunostomy anastomosis to right and left biliary systems. VERIFIED REPORT Dictated: 06/19/2009 3:49 pm SHIVA Martinez, ANAY Phillip Signed (Electronic Signature): CHRISTOPHER NIELSEN M.D. N03 2:05 Resident: ANAY CANAS M.D. Technologist: ABDIAS NORMAN us Rigoberto Kelly MD IM IR ORDERABLES Final Result * IR inj Cholang Transhepatic perc (06/16/2009 12:15 PM EST) Anatomical Region Laterality Modality Abdomen X-Ray Angiograph y 06/16/2009 12:1 5 PM EST Narrative 06/19/2009 3:47 PM EST ? [facility] Patient: [place] CHILDRESS : ? 1980 Accn#: ?? [id number] ?Interventional Radiology Exam Date/Time 06/16/2009 12:15 EST 06/16/2009 12:15 EST 06/16/2009 12:15 EST 06/16/2009 12:15 EST 06/16/2009 12:15 EST Reason for Exam: (ANG-INJ CHOLANG TRANSHEP PERC) ??BILIARY OBSTRUCTION (ANG-CHOLANGIO PERC TRANS S&I) ??BILIARY OBSTRUCTION (ANG-BILIARY DIL W/ STENT) ??BILIARY OBSTRUCTION (ANG-BILI DIL W OR WO STENT S&I) ??BILIARY OBSTRUCTION (ANG-US GUIDE NEEDLE PLACE S&I) ??BILIARY OBSTRUCTION Report Total fluoroscopy time: 15.6 minutes. Procedures: 1) PERCUTANEOUS TRANSHEPATIC CHOLANGIOGRAM (PTC), ULTRASOUND AND FLUOROSCOPIC-GUIDED 2) BILIARY CATHETER PLACEMENT, FLUOROSCOPIC-GUIDED Performed on 06/16/2009. Indications: Status post Kasai procedure for biliary atresia. On dilation of the left hepatic ducts with a stone demonstrated by endoscopic ultrasound. Operators: Dr. Pino (VIR Fellow), Dr. Canas(Timber Sizer Operator), and Dr. Nielsen (VIR Attending) were present for the entire procedure. Comparison: Abdominal CT dated 06/12/2009. Procedure / Findings: ??The procedure was performed in the VIR suite following informed consent. ??The patient received preprocedure IV antibiotics. ??The patient was intubated and received general anesthesia under the care of an anesthesiologist. ??With the patient in the supine position, the upper abdomen was prepped and draped in the usual sterile fashion. A subxiphoid percutaneous entry site was identified. Using ultrasound guidance, a 15 cm, 21-G Echotip needle was inserted into a peripheral duct draining segment 3 of the left hepatic lobe. ??Previously injected contrast in the intrahepatic ducts was used as a target. ??Using fluoroscopic guidance, contrast was gently injected through the needle (to opacify a bile duct), as the needle was withdrawn. ??After several needle passes, a bile duct was successfully entered as confirmed by contrast injection. ??The following cholangiogram demonstrated a focal stricture of the main duct draining the lateral segment of the left hepatic lobe. There was prompt drainage of the inject contrast across the hepaticojejunostomy anastomosis into the jejunum. A 0.018 inch Nitrex guidewire was advanced through the needle into the left biliary duct, and into the common bile duct. ??Grebb set was inserted over the 0.018 inch guidewire. ??Using fluoroscopic guidance, a 0.035 inch guidewire was inserted through the catheter. ??A 40 cm, 5-F Kumpe catheter was advanced over the guidewire. ??Using fluoroscopic guidance, a glidewire advantage and Kumpe catheter were advanced down the common duct to the small bowel. ??The Glidewire was exchanged for a 0.038 inch Amplatz guidewire. ??The track was dilated to 14-F. ??Using a 9 mm x 4 cm Conquest balloon catheter the region of the biliary stricture was balloon plasty open. Using fluoroscopic guidance, 16-F internal / external biliary drainage catheter was placed over the guidewire. ??By fluoroscopy, the biliary catheter was positioned with the upper side holes along the peripheral left intrahepatic ducts and the distal catheter positioned in the small bowel. The biliary catheter was secured with suture and dressed in the usual fashion. ??The catheter was placed to bag drainage. General anesthesia was reversed and the patient was extubated. ??The patient was transferred to the PACU under the care of the anesthesiologist. There were no immediate complications. IMPRESSION: 1. Successful ultrasound and fluoroscopic guided, percutaneous transhepatic cholangiogram. 2. Focal intrahepatic structure of the left lateral segmental duct, dilated to 9 mm, using a Conquest balloon catheter. 2. Successful placement of a 14 -F, internal / external, skater biliary drainage catheter using a left intrahepatic biliary duct. 3. Patent hepaticojejunostomy anastomosis to right and left biliary systems. VERIFIED REPORT Dictated: 06/19/2009 3:49 pm ?ANAY CANAS M.D. Signed (Electronic Signature): ??CHRISTOPHER NIELSEN M.D. ? 06/20/09 2:05 Resident: ??ANAY CANAS M.D. Technologist: ABDIAS NORMAN Procedure Note Christopher Nielsen MD - 10/25/2011 [facility] Patient: [place] [facility]DR[facility] 1980 [id number] Interventional Radiology Exam Date/Time 06/16/2009 12:15 EST 06/16/2009 12:15 EST 06/16/2009 12:15 EST 06/16/2009 12:15 EST 06/16/2009 12:15 EST Reason for Exam: (ANG-INJ CHOLANG TRANSHEP PERC) BILIARY OBSTRUCTION (ANG-CHOLANGIO PERC TRANS S&I) BILIARY OBSTRUCTION (ANG-BILIARY DIL W/ STENT) BILIARY OBSTRUCTION (ANG-BILI DIL W OR WO STENT S&I) BILIARY OBSTRUCTION (ANG-US GUIDE NEEDLE PLACE S&I) BILIARY OBSTRUCTION Report Total fluoroscopy time: 15.6 minutes. Procedures: 1) PERCUTANEOUS TRANSHEPATIC CHOLANGIOGRAM (PTC), ULTRASOUND AND FLUOROSCOPIC-GUIDED 2) BILIARY CATHETER PLACEMENT, FLUOROSCOPIC-GUIDED Performed on 06/16/2009. Indications: Status post Kasai procedure for biliary atresia. Ondilation of the left hepatic ducts with a stone demonstrated by endoscopic ultrasound. Operators: Dr. Pino (VIR Fellow), Dr. Canas(Timber Sizer Operator),and Dr. Nielsen (VIR Attending) were present for the entire procedure. Comparison: Abdominal CT dated 06/12/2009. Procedure / Findings: The procedure was performed in the VIR suite following informed consent. The patient received preprocedure IV antibiotics. The patient was intubated and received general anesthesia under the care of an anesthesiologist. With the patient in the supine position, the upper abdomen was prepped and draped in the usual sterile fashion. A subxiphoid percutaneous entry site was identified. Using ultrasound guidance, a 15 cm, 21-G Echotip needle was inserted intoa peripheral duct draining segment 3 of the left hepatic lobe.Previously injected contrast in the intrahepatic ducts was used as a target.Using fluoroscopic guidance, contrast was gently injected through the needle(to opacify a bile duct), as the needle was withdrawn. After severalneedle passes, a bile duct was successfully entered as confirmed by contrast injection. The following cholangiogram demonstrated a focal strictureof the main duct draining the lateral segment of the left hepatic lobe.There was prompt drainage of the inject contrast across thehepaticojejunostomy anastomosis into the jejunum. A 0.018 inch Nitrex guidewire was advanced through the needle into theleft biliary duct, and into the common bile duct. Grebb set was insertedover the 0.018 inch guidewire. Using fluoroscopic guidance, a 0.035 inch guidewire was inserted through the catheter. A 40 cm, 5-F Kumpecatheter was advanced over the guidewire. Using fluoroscopic guidance, aglidewire advantage and Kumpe catheter were advanced down the common duct to the small bowel. The Glidewire was exchanged for a 0.038 inch Amplatz guidewire. The track was dilated to 14-F. Using a 9 mm x 4 cmConquest balloon catheter the region of the biliary stricture was balloon plasty open. Using fluoroscopic guidance, 16-F internal / external biliary drainage catheter was placed over the guidewire. By fluoroscopy, the biliary catheter was positioned with the upper side holes along the peripheral left intrahepatic ducts and the distal catheter positionedin the small bowel. The biliary catheter was secured with suture and dressed in the usual fashion. The catheter was placed to bag drainage. General anesthesia was reversed and the patient was extubated. Thepatient was transferred to the PACU under the care of the anesthesiologist. There were no immediate complications. IMPRESSION: 1. Successful ultrasound and fluoroscopic guided, percutaneoustranshepatic cholangiogram. 2. Focal intrahepatic structure of the left lateral segmental duct,dilated to 9 mm, using a Conquest balloon catheter. 2. Successful placement of a 14 -F, internal / external, skater biliary drainage catheter using a left intrahepatic biliary duct. 3. Patent hepaticojejunostomy anastomosis to right and left biliary systems. VERIFIED REPORT Dictated: 06/19/2009 3:49 pm ANAY CANAS M.D. Signed (Electronic Signature): CHRISTOPHER NIELSEN M.D. N03 2:05 Resident: ANAY CANAS M.D. Technologist: ABDIAS NORMAN Rigoberto Kelly MD [facility] IR ORDERABLES Final Result documented in this encounter Visit Diagnoses Not on filedocumented in this encounter Care Teams Provider Service Representative Relationship Specialty Start Date End Date Camila Jasso MD [address] [place] [address] PCP - General 12/03/06 10/08/16 documented as of this encounter
--- OUTSIDE RECORDS SUMMARY | 2024-03-14 18:27 | XMS_ITS | Encounter Summary ---
Author Organization [facility] Address [address] [place] [id number] Care Team Providers Care Construction Project Manager Name Role Phone Camila Jasso MD Primary [...] release of HIV test results or diagnoses. [id number] Health Encounter Details Date Type Department Care Team (Latest Contact Info) Description 05/12/2009 11:16 AM EST - 05/12/2009 4:07 PM EST Hospital Encounter [facility] ENDOSCOPY [address] [place] [address] Perry Bray MD Discharge Disposition: Home or Self Care WITHOUT Home Care Services Social History Tobacco Use Types Packs/Day Years Used Date Smoking Tobacco: Never Assessed Comments Unknown Sex and Gender Information Value Date Recorded Sex Assigned at Not on file Legal Sex Female 7:46 PM EST Gender Identity Not on file Sexual Orientation Not on file documented as of this encounter Procedure Notes * Perry Bray MD - 11/06/2011 9:47 PM EDT Name: FIOR Flowers : 1980 Indications: 29y/o woman with 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 MRCP showed dilated ducts in left hepatic lobe. Consent: The benefits, risks, and alternatives to the procedure were discussed, and informed consent was obtained from the patient. Preparation: EKG, pulse, pulse oximetry and BP were monitored throughout the procedure Medications: IV MAC Estimated Blood Loss: None Procedure: A physical exam was performed. Findings: Linear echoendoscope passed form mouth to D2. Pancreas and periampullary regbion normal. Left lobe of liver looks primarily very-healthy with normal parenchyma and pneumobilia, however, there is a section of left lobe where a wedge-shaped peripheral area of liver has very-slightly mottled parenchyma upstream to a few stones in slightly dilated ducts. The section is all upstream to one dominant 4mm stone, not very far from liver hilum. We know this is the primary stone because biliary air is seen immediately downstream to it, but none upstream. No evidence of mass lesion. PV patent. No ascites. Unplanned Events: None Summary: Segmental biliary obstruction, in segment of left lateral lobe, with focal secondary parenchymal changes, related to intraductal stones, presumably related to prior transient biliary infection for which she would be predisposed. Recommendations: Would consult surgery. Procedure Codes: 70330 Performed By: The procedure was performed by Perry Bray MD. [place]: Version 1, electronically signed by Dr. Perry Bray on 05/12/2009 at 15:00. documented in this encounter Plan of Treatment Not on file documented as of this encounter Visit Diagnoses Not on filedocumented in this encounter Care Teams Construction Project Manager Relationship Specialty Start Date End Date Camila Jasso MD [address] [place] [address] PCP - General 12/03/06 10/08/16 documented as of this encounter
--- OUTSIDE RECORDS SUMMARY | 2024-03-14 18:27 | XMS_ITS | Encounter Summary ---
Author Organization [facility] Address [address] [place] [id number] Care Team Providers Care Principal Accounts Clerk Name Role Phone Camila Jasso MD Primary Care Provider [phone] Source Comments This information has been disclosed [...] release of HIV test results or diagnoses. [id number] Health Encounter Details Date Type Department Care Team (Late st Contact Info) Description 03/15/2009 - 03/15/2009 11:59 PM EST Emergency [facility] Emergency Department [address] [place] [phone] Ginny Sheehan MD Discharge Disposition: Home or Self Care WITHOUT Home Care Services Social History Tobacco Use Types Packs/Day Years Used Date Smoking Tobacco: Never Assessed Comments Unknown Sex and Gender Information Value Date Recorded Sex Assigned at Not on file Legal Sex Female 7:46 PM EST Gender Identity Not on file Sexual Orientation Not on file documented as of this encounter ED Notes * Horacio Meléndez MD - 03/16/2009 1:09 AM EST [facility] PATIENT NAME: ISHAN CHILDRESS MR #: [id number] DATE OF : 1980 ED PHYSICIAN: Ginny Sheehan M.D. ROOM #: PRIMARY: Camila Jasso M.D. NURSING UNIT: ED REFERRING: Selected Referral Pt FC: D DICTATED BY: Horacio Meléndez M.D. ADMIT DATE: 03/15/2009 VISIT DATE: 03/15/2009 DISCHARGE DATE: EMERGENCY DEPARTMENT DISCHARGE NOTE CHIEF COMPLAINT: Abdominal pain. 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 She is currently followed by Dr. Agosto as an outpatient. She presents to the emergency department with a chief complaint of abdominal pain that is generalized in nature, it is 10/10, located in her abdomen generally, provoked by nothing, relieved by nothing, radiates nowhere and is aching in nature. The patient denies any fevers, chills, night sweats. She does report some nausea and vomiting, but denies any diarrhea. She denies any discolored stool. She reports her last normal bowel movement was this morning. She denies any other issues whatsoever at this time. She simply reports that she does not have her appointment with Dr. Agosto until next week and decided to present to the emergency department for pain management. PAST MEDICAL HISTORY: 1. Biliary atresia status post multiple surgeries. FAMILY HISTORY: Noncontributory. SOCIAL HISTORY: The patient denies any tobacco, alcohol or illicit drug use. ALLERGIES: Please see nursing notes. MEDICATIONS: Please see nursing notes. REVIEW OF SYSTEMS: See HPI. All other systems reviewed and found to be negative. PHYSICAL EXAMINATION: VITAL SIGNS: Blood pressure 125/79, pulse 84, respirations 16, temperature 97.3, O2 saturations 100% on room air. GENERAL: The patient was in no acute distress. HEENT: Normocephalic, atraumatic. Eyes: Extraocular movements were intact. Sclerae were nonicteric. Mouth had moist membranes in her oropharynx. Uvula is midline. NECK: Showed a midline trachea. No cervical lymphadenopathy. RESPIRATORY: Clear to auscultation bilaterally with no rhonchi, wheezes or rales. CARDIOVASCULAR: Normal S1, S2 with no murmurs, rubs or gallops appreciated on auscultation. ABDOMEN: Diffusely tender to deep palpation, but was not tender to light palpation. The patient did not have any specific peritoneal signs, nor any rebound tenderness or guarding. Normal active bowel sounds were appreciated. No hepatosplenomegaly appreciated on palpation. MUSCULOSKELETAL: The patient was able to move all four extremities with a full range of motion. SKIN: Clean, dry and intact. No evidence of skin rashes or skin lesions. NEUROLOGIC: No focal neurologic deficits. PSYCHIATRIC: The patient good affect throughout the encounter. EMERGENCY DEPARTMENT COURSE: The patient was examined by myself, as well as the attending physician. IV was placed. Blood was drawn for laboratory analysis which revealed an elevated white blood cell count 23.4. H&H was normal. Platelets were normal. The patient did have a 14% bandemia. Renal panel was normal. Liver panel was normal with the exception of a protein of 9.0. Urinalysis was normal. KUB was nonsignificant and showed no evidence of cardiopulmonary disease or obstructive bowel gas pattern. This was normal x-ray. MEDICAL DECISION MAKING: At this point, the patient is doing quite well. The case was discussed with Dr. Agosto. He stated the patient will require continued outpatient therapy and stated that he felt that the admission requirement should be solely based on whether or not the patient feels that she can handle her discomfort at home or if she needs to be admitted. A long lengthy discussion was had with the patient and the patient does feel that she can manage her discomfort at home. She, of course, was told to return to the emergency department immediately for any concerns, questions or emergencies she may have, in particularly if she begins having any worsening abdominal discomfort or any fevers, chills, night sweats or any other issues. The patient expressed understanding of this and she was again told to come back to the emergency department immediately for any issues, but otherwise to follow up with Dr. Agosto in clinic early next week for continued care and evaluation of her chronic abdominal discomfort. The patient does report that she has this abdominal discomfort every two to three weeks for the past several years, each and every time she has an elevated white count. This is ultimately why it was deemed okay to allow the patient to be discharged to home. Given that the patient does have close followup, I do feel more comfortable allowing the patient to be discharged to home, but again it was explicitly explained to the patient that she should return to the emergency department for any complications whatsoever. DISCHARGE DIAGNOSIS: 1. Abdominal pain. JE/pjt Horacio Meléndez M.D. Ginny Sheehan M.D. EMERGENCY DEPARTMENT DISCHARGE NOTE PAGE 1 of 1 documented in this encounter Plan of Treatment Not on file documented as of this encounter Procedures Procedure Name Priority Date/Time Associated Diagnosis Comments DIAG ABDOMEN COMP ACUTE SERIES 2 OR MORE VIEWS AND 1 VIEW CHEST Routine 03/15/2009 4:28 PM EST documented in this encounter Results * X-ray Abd KUB Up-Decub and PA CXR (03/15/2009 4:28 PM EST) Anatomical Region Laterality Modality Abdomen, Chest Radiographic Kristi ging 03/15/2009 4:28 PM EST Narrative 03/15/2009 6:30 PM EST Name: OBIE Flowers : ??1980 VERIFIED [facility] Reason: ??pain, vomiting Dict.Staff: TREVON ALEGRIA [id number] Dict.Res: HARPER TRAN [id number] Verified By: TREVON ALEGRIA ? Trice: 03/15/09 ?? 9:17 pm Exams: ??DIAG-ABD KUB UP/DECUB & PA CXR Two views of the abdomen and single view of the chest dated 03/15/2009 at 16: 44 History: Pain and vomiting Comparison: 02/13/2009 Findings: A PA view of the chest was reviewed. The cardiac and mediastinal silhouettes are within normal limits. There is no evidence of airspace opacity, effusion, or pneumothorax. No acute bony abnormalities are seen. No free air is seen underneath the diaphragms. Upright and supine views of the abdomen are reviewed. The flanks are excluded on both the upright and supine views. There is air and stool within nondilated loops of colon. There is a paucity of small bowel gas. No abnormal radiopaque calculi are identified. No air-fluid levels are seen. Impression: 1. No acute cardiopulmonary disease. 2. Nonobstructive bowel gas pattern. end of result Procedure Note Interface, Rad Conversion - 10/25/2011 Name: OBIE Flowers : 1980 VERIFIED [facility] Reason: pain, vomiting Dict.Staff: TREVON ALEGRIA [id number] Dict.Res: HARPER TRAN [id number] Verified By: TREVON ALEGRIA Trice: 03/15/09 9:17 pm Exams: DIAG-ABD KUB UP/DECUB & PA CXR Two views of the abdomen and single view of the chest dated 03/15/2009 at 16: 44 History: Pain and vomiting Comparison: 02/13/2009 Findings: A PA view of the chest was reviewed. The cardiac and mediastinal silhouettes are within normal limits. There is no evidence of airspace opacity, effusion, or pneumothorax. No acute bony abnormalities are seen. No free air is seen underneath the diaphragms. Upright and supine views of the abdomen are reviewed. The flanks are excluded on both the upright and supine views. There is air and stool within nondilated loops of colon. There is a paucity of small bowel gas. No abnormal radiopaque calculi are identified. No air-fluid levels are seen. Impression: 1. No acute cardiopulmonary disease. 2. Nonobstructive bowel gas pattern. end of result Ginny Sheehan MD [facility] ORDERA BLES Final Result documented in this encounter Visit Diagnoses Not on filedocumented in this encounter Care Teams Principal Accounts Clerk Relationship Specialty Start Date End Date Camila Jasso MD [address] [place] [address] PCP - General 12/03/06 10/08/16 documented as of this encounter
--- OUTSIDE RECORDS SUMMARY | 2024-03-14 18:27 | XMS_ITS | Encounter Summary ---
Author Organization [facility] Address [address] [place] [id number] Care Team Providers Care Front Edger Name Role Phone Camila Jasso MD Primary Care Provider [phone] Source Comments This information has been disclosed [...] release of HIV test results or diagnoses. [id number] Health Encounter Details Date Type Department Care Team (Latest Contact Info) Description 12/03/2006 6:08 PM EDT - 12/09/2006 2:15 PM EDT Hospital Encounter [facility] [address] [place] [address] Ruel Davila MD [address] [facility]. [address] [place] [address] Fredy Schuster MD Discharge Disposition: Home WITH Home Health Care Services Social History Tobacco Use Types Packs/Day Years Used Date Smoking Tobacco: Never Assessed Comments Unknown Sex and Gender Information Value Date Recorded Sex Assigned at Not on file Legal Sex Female 7:46 PM EST Gender Identity Not on file Sexual Orientation Not on file documented as of this encounter Discharge Summaries * Ahmet Davila MD - 12/12/2006 11:47 AM EDT [facility] PATIENT NAME: GARDENIA CHILDRESS MR #: [id number] DATE OF : 1980 ADMITTING: Fredy Schuster M.D., Ph.D. ROOM #: [id number] ATTENDING: Fredy Schuster M.D., Ph.D. NURSING UNIT: [facility] SERVICE: Liver Transplantation FC: S PRIMARY: Margarito Rubio M.D. ADMIT DATE: 12/03/2006 REFERRING: DISCHARGE DATE: 12/09/2006 DICTATED BY: Ahmet Davila M.D. DISCHARGE SUMMARY DISCHARGE DIAGNOSIS(ES): 1. Contained bowel perforation. 2. History of biliary atresia status post Kasai procedure. OPERATIONS/PROCEDURES PERFORMED: None. CONSULTATIONS: None. ALLERGIES: 1. Aspirin. DISCHARGE MEDICATIONS: 1. Zosyn 3.375 grams IV q6h. 2. Pepcid 20 mg po bid. HISTORY OF PRESENT ILLNESS: The patient was admitted on December 03, 2006 with sudden onset of severe abdominal pain, when awakened her from her sleep. The pain was very severe. It was located diffusely in her abdomen. On arrival to the emergency department, labs were drawn. Her white blood cell count was elevated at 16.8. HOSPITAL COURSE: On the date of admission, a contrast CT scan was performed of the abdomen and pelvis. The attending radiologist believed that her CT scan revealed a soft tissue collection within the mesentery which was believed to be a contained bowel perforation. The patient has a history of biliary atresia and underwent a Kasai procedure as an . The site of the contained bowel perforation was unknown due to the anatomy of her intestines. 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 The patient was admitted and started on IV hydration and made NPO. She was started on IV Zosyn q6h. After admission, the patient's white count increased from 16.8 to a high of 22.5 on hospital day number two along with a bandemia. Because the bowel perforation was contained, it was decided that the best way to manage her would be nonoperatively. She was kept NPO and the antibiotics were continued. Over the course of her admission here, abdominal pain gradually improved. By hospital day three, her white count began to decrease down to 15. At the time of discharge, her white count has decreased all the way to the normal range at 7.6. TPN was begun on hospital day number three and was continued for three days. An upper GI with gastrografin contrast was performed which did not reveal any evidence of leak, although the study was able to adequately assess her Burton-en-Y limb from her Kasai procedure. By hospital day number four, the patient did not have any further abdominal pain. A repeat CT scan was performed on December 08, 2006 which showed improvement in the fluid collection containing bowel perforation. As a result of this CT scan as well as her improved abdominal pain, she was started on a clear liquid diet which was tolerated very well. On the day of discharge, the patient was advanced to a regular diet which was tolerated without difficulty. She was not nauseated. There was no vomiting and no abdominal pain. Social work arranged for the patient to receive eight days of IV antibiotics to complete her two week course. The patient's TPN was stopped on the day of discharge as she was taking and tolerating a regular diet. CONDITION OF PATIENT ON DISCHARGE: The patient is in good stable condition. DISCHARGE INSTRUCTIONS: 1. Diet. The patient is to be on a regular diet. She has been instructed to avoid carbonated beverages, as this may increase the gas in her bowels, which could possibly worsen the perforation. 2. Activity. The patient has no activity restrictions. 3. Follow-up. The patient is to follow-up in Dr. Schuster's clinic in one week. His office will contact her with the appointment date and time. [facility] ____ Fredy Schuster M.D., Ph.D. Dictated by: Ahmet Davila M.D. DISCHARGE SUMMARY COPY PAGE 1 of 1 DISCHARGE SUMMARY COPY PAGE 1 of 1 documented in this encounter Plan of Treatment Not on file documented as of this encounter Procedures Procedure Name Priority Date/Time Associated Diagnosis Comments CT ABDOMEN WITH IV CONTRAST Routine 12/08/2006 8:[address] PELVIS WITH IV CONTRAST Routine 12/08/2006 8:15 AM EDT XR PORTABLE CHEST Routine 12/05/2006 10: 07 AM EDT FL UPPER GI WATER SOLUBLE WITH ABD Routine 12/05/2006 9:[address] ABDOMEN WITH IV CONTRAST Routine 12/03/2006 4:[address] PELVIS WITH IV CONTRAST Routine 12/03/2006 4:42 PM EDT documented in this encounter Results * CT Pelvis With contrast (12/08/2006 8:15 AM EDT) Anatomical Region Laterality Modality Pelvis Computed Tomogra phy 12/08/2006 8:15 AM EDT Narrative 12/08/2006 11:59 AM EDT VERIFIED [facility] Reason: ??Abdominal Abscess Dict.Staff: Kostas LEONARD [id number] Dict.Res: BETTY VILLANUEVA [id number] Verified By: Kostas LEONARD ?Trice: 12/11/06 ??12:04 pm Exams: ??CT-ABDOMEN WITH CONTRAST CT-PELVIS WITH CONTRAST CT of ??the abdomen and pelvis with contrast on ??12/08/2006 Indication: 26-year-old female status post Kasai procedure in the remote past with abdominal abscess, evaluate size. Comparisons: Comparison is made to prior CT dated 12/03/2006. Technical factors: Helically acquired [address] images were obtained through the abdomen and pelvis after the administration of ??Hypaque oral and 150 mL of Isovue-370 intravenous contrast. The field of view was 36 cm. Findings: Limited images of the lung bases demonstrate scattered parenchymal bands at the left base with a small amount of consolidation likely atelectasis. Within the abdomen, postoperative changes from Kasai procedure are again noted. There continues to be intrahepatic ductal dilatation in the lateral segment of the left lobe, stable compared to prior study along with pneumobilia, unchanged. The previously seen inflammatory collection within the midabdomen is again seen and now smaller in size. This collection now measures approximately 2.3 x 1.7 cm in size on image 32, previously this measured 3.0 x 3.8 cm in size on image 78. This collection has scattered fluid and soft tissue density with it. There is mild surrounding inflammatory change. Otherwise, the small bowel is normal in caliber. An occasional diverticulum is seen within sigmoid colon. In the pelvis, the uterus and ovaries are within normal limits. The spleen, adrenal glands, pancreas and kidneys are normal in appearance. Bone windows show no lytic or blastic lesions. Impression Abdomen: 1. Interval improvement in gas and soft tissue collection within the mesentery compatible with improving inflammatory collection. 2. Surgical changes compatible with remote Kasai procedure. Impression Pelvis: 1. Unremarkable pelvis CT. end of result Procedure Note Bong Leonard MD - 10/24/2011 VERIFIED [facility] Reason: Abdominal Abscess Dict.Staff: Kostas LEONARD [id number] Dict.Res: HUNTERLILIANABETTY [id number] Verified By: Kostas LEONARD Trice: 12/11/06 12:04 pm Exams: CT-ABDOMEN WITH CONTRAST CT-PELVIS WITH CONTRAST CT of the abdomen and pelvis with contrast on 12/08/2006 Indication: 26-year-old female status post Kasai procedure in the remote past with abdominal abscess, evaluate size. Comparisons: Comparison is made to prior CT dated 12/03/2006. Technical factors: Helically acquired [address] images were obtained through the abdomen and pelvis after the administration of Hypaque oral and 150 mL of Isovue-370 intravenous contrast. The field of view was 36 cm. Findings: Limited images of the lung bases demonstrate scattered parenchymal bands at the left base with a small amount of consolidation likely atelectasis. Within the abdomen, postoperative changes from Kasai procedure are again noted. There continues to be intrahepatic ductal dilatation in the lateral segment of the left lobe, stable compared to prior study along with pneumobilia, unchanged. The previously seen inflammatory collection within the midabdomen is again seen and now smaller in size. This collection now measures approximately 2.3 x 1.7 cm in size on image 32, previously this measured 3.0 x 3.8 cm in size on image 78. This collection has scattered fluid and soft tissue density with it. There is mild surrounding inflammatory change. Otherwise, the small bowel is normal in caliber. An occasional diverticulum is seen within sigmoid colon. In the pelvis, the uterus and ovaries are within normal limits. The spleen, adrenal glands, pancreas and kidneys are normal in appearance. Bone windows show no lytic or blastic lesions. Impression Abdomen: 1. Interval improvement in gas and soft tissue collection within the mesentery compatible with improving inflammatory collection. 2. Surgical changes compatible with remote Kasai procedure. Impression Pelvis: 1. Unremarkable pelvis CT. end of result us Ahmet Davila MD IMG CT ORDERABLES Final Result * CT Abdomen With contrast (12/08/2006 8:15 AM EDT) Anatomical Region Laterality Modality Abdomen Computed Tomogra phy 12/08/2006 8:15 AM EDT Narrative 12/08/2006 11:59 AM EDT VERIFIED [facility] Reason: ??Abdominal Abscess Dict.Staff: Kostas LEONARD [id number] Dict.Res: BETTY VILLANUEVA [id number] Verified By: Kostas LEONARD ?Trice: 12/11/06 ??12:04 pm Exams: ??CT-ABDOMEN WITH CONTRAST CT-PELVIS WITH CONTRAST CT of ??the abdomen and pelvis with contrast on ??12/08/2006 Indication: 26-year-old female status post Kasai procedure in the remote past with abdominal abscess, evaluate size. Comparisons: Comparison is made to prior CT dated 12/03/2006. Technical factors: Helically acquired [address] images were obtained through the abdomen and pelvis after the administration of ??Hypaque oral and 150 mL of Isovue-370 intravenous contrast. The field of view was 36 cm. Findings: Limited images of the lung bases demonstrate scattered parenchymal bands at the left base with a small amount of consolidation likely atelectasis. Within the abdomen, postoperative changes from Kasai procedure are again noted. There continues to be intrahepatic ductal dilatation in the lateral segment of the left lobe, stable compared to prior study along with pneumobilia, unchanged. The previously seen inflammatory collection within the midabdomen is again seen and now smaller in size. This collection now measures approximately 2.3 x 1.7 cm in size on image 32, previously this measured 3.0 x 3.8 cm in size on image 78. This collection has scattered fluid and soft tissue density with it. There is mild surrounding inflammatory change. Otherwise, the small bowel is normal in caliber. An occasional diverticulum is seen within sigmoid colon. In the pelvis, the uterus and ovaries are within normal limits. The spleen, adrenal glands, pancreas and kidneys are normal in appearance. Bone windows show no lytic or blastic lesions. Impression Abdomen: 1. Interval improvement in gas and soft tissue collection within the mesentery compatible with improving inflammatory collection. 2. Surgical changes compatible with remote Kasai procedure. Impression Pelvis: 1. Unremarkable pelvis CT. end of result Procedure Note Bong Leonard MD - 10/24/2011 VERIFIED [facility] Reason: Abdominal Abscess Dict.Staff: Kostas LEONARD [id number] Dict.Res: HUNTERLILIANABETTY [id number] Verified By: Kostas LEONARD Trice: 12/11/06 12:04 pm Exams: CT-ABDOMEN WITH CONTRAST CT-PELVIS WITH CONTRAST CT of the abdomen and pelvis with contrast on 12/08/2006 Indication: 26-year-old female status post Kasai procedure in the remote past with abdominal abscess, evaluate size. Comparisons: Comparison is made to prior CT dated 12/03/2006. Technical factors: Helically acquired [address] images were obtained through the abdomen and pelvis after the administration of Hypaque oral and 150 mL of Isovue-370 intravenous contrast. The field of view was 36 cm. Findings: Limited images of the lung bases demonstrate scattered parenchymal bands at the left base with a small amount of consolidation likely atelectasis. Within the abdomen, postoperative changes from Kasai procedure are again noted. There continues to be intrahepatic ductal dilatation in the lateral segment of the left lobe, stable compared to prior study along with pneumobilia, unchanged. The previously seen inflammatory collection within the midabdomen is again seen and now smaller in size. This collection now measures approximately 2.3 x 1.7 cm in size on image 32, previously this measured 3.0 x 3.8 cm in size on image 78. This collection has scattered fluid and soft tissue density with it. There is mild surrounding inflammatory change. Otherwise, the small bowel is normal in caliber. An occasional diverticulum is seen within sigmoid colon. In the pelvis, the uterus and ovaries are within normal limits. The spleen, adrenal glands, pancreas and kidneys are normal in appearance. Bone windows show no lytic or blastic lesions. Impression Abdomen: 1. Interval improvement in gas and soft tissue collection within the mesentery compatible with improving inflammatory collection. 2. Surgical changes compatible with remote Kasai procedure. Impression Pelvis: 1. Unremarkable pelvis CT. end of result us Ahmet Davila MD IMG CT ORDERABLES Final Result * X-ray Portable Chest (12/05/2006 10:07 AM EDT) Anatomical Region Laterality Modality Chest Radiographic Kristi ging 12/05/2006 10:0 7 AM EDT Narrative 12/05/2006 12:24 PM EDT VERIFIED [facility] Reason: ??picc line placed rt arm Dict.Staff: KAROLINA CISNEROS [id number] Verified By: KAROLINA CISNEROS ? Trice: 12/05/06 ??12:24 pm Exams: ??DIAG-PORTABLE CHEST Portable chest on 12/05/2006 at 1017 hours. History: PICC line placement. Comparison: None. Findings: There has been placement of right subclavian PICC line with tip overlying the superior vena cava. Lungs are clear. Cardiomediastinal silhouette is within normal limits. Impression: Right subclavian PICC line tip overlies the superior vena cava. No acute cardiopulmonary abnormality. end of result Procedure Note Karolina Cisneros MD - 10/24/2011 VERIFIED [facility] Reason: picc line placed rt arm Dict.Staff: KAROLINA CISNEROS [id number] Verified By: KAROLINA CISNEROS Trice: 12/05/06 12:24 pm Exams: DIAG-PORTABLE CHEST Portable chest on 12/05/2006 at 1017 hours. History: PICC line placement. Comparison: None. Findings: There has been placement of right subclavian PICC line with tip overlying the superior vena cava. Lungs are clear. Cardiomediastinal silhouette is within normal limits. Impression: Right subclavian PICC line tip overlies the superior vena cava. No acute cardiopulmonary abnormality. end of result us Fredy Schuster MD IMG DIAGNOSTIC IMAGING ORDERABL ES Final Result * Fluoro UGI water soluble with Abd (12/05/2006 9:41 AM EDT) Anatomical Region Laterality Modality Abdomen, Pelvis Radiographic Kristi ging 12/05/2006 9:41 AM EDT Narrative 12/05/2006 2:59 PM EDT VERIFIED [facility] Reason: ??Abdominal Pain Dict.Staff: KAROLINA CISNEROS [id number] Dict.Res: ZAIDA STALLWORTH [id number] Verified By: KAROLINA CISNEROS ? Trice: 12/05/06 ?? 4:14 pm Exams: ??DIAG-WATER SOLUBLE UGI W/ABD Single contrast upper GI studies: 12/05/2006 Indication: History of Kasai procedure for biliary atresia, possible jejunal perforation seen on CT, please evaluate. Technical factors: After initial heel seat trimmer views, Gastrografin was given orally to obtain a single-contrast focused upper GI study. Findings: There is free passage of contrast to the stomach and proximal small bowel. The gastric folds have a normal appearance. There is no evidence of leak in the small bowel. Contrast is seen up to the proximal jejunum with normal bowel wall pattern. No strictures are seen. There is dilution of contrast distally in the small bowel. Impression: No evidence of leak. end of result Procedure Note Karolina Cisneros MD - 10/24/2011 VERIFIED [facility] Reason: Abdominal Pain Dict.Staff: KAROLINA CISNEROS [id number] Dict.Res: ZAIDA STALLWORTH [id number] Verified By: KAROLINA CISNEROS Trice: 12/05/06 4:14 pm Exams: DIAG-WATER SOLUBLE UGI W/ABD Single contrast upper GI studies: 12/05/2006 Indication: History of Kasai procedure for biliary atresia, possible jejunal perforation seen on CT, please evaluate. Technical factors: After initial heel seat trimmer views, Gastrografin was given orally to obtain a single-contrast focused upper GI study. Findings: There is free passage of contrast to the stomach and proximal small bowel. The gastric folds have a normal appearance. There is no evidence of leak in the small bowel. Contrast is seen up to the proximal jejunum with normal bowel wall pattern. No strictures are seen. There is dilution of contrast distally in the small bowel. Impression: No evidence of leak. end of result us Ahmte Davila MD IMG DIAGNOSTIC IMAGING ORDERABLE S Final Result * CT Pelvis With contrast (12/03/2006 4:42 PM EDT) Anatomical Region Laterality Modality Pelvis Computed Tomogra phy 12/03/2006 4:42 PM EDT Narrative 12/04/2006 1:41 AM EDT VERIFIED ? ADDENDED REPORT ? ADDENDUM# 1 [facility] Reason: ??r/o cholangitits Dict.Staff: EHSAN NIELSEN [id number] Dict.Res: FEDE GUTIERRES [id number] Verified By: EHSAN NIELSEN ? Trice: 12/04/06 ?? 3:44 pm Exams: ??CT-ABDOMEN WITH CONTRAST CT-PELVIS WITH CONTRAST Addendum: I have reviewed the images and agree with the preliminary findings and impression. The abnormal gas collection with surrounding soft tissue density mesenteric stranding could reflect a contained jejunal perforation. 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 Findings were discussed with Dr. Dejuan Amador with transplant surgery at 8:00 a.m. on 12/04/2006. VERIFIED ? ADDENDED REPORT ? ADDENDUM# 0 [facility] Reason: ??r/o cholangitits Dict.Staff: ELSA, OMER KENDALL Dict.Res: FEDE GUTIERRES [id number] Verified By: PRELIMINARY, COUNT INCLUDES THE [facility] ? Trice: 12/04/06 ?? 8:21 am Exams: ??CT-ABDOMEN WITH CONTRAST CT-PELVIS WITH CONTRAST Abdomen and pelvis CT with contrast Date: 12/03/2006 Indication: Abdominal pain. History of Kasai procedure. Concern for cholangitis. Comparison: None Technical factors: Helically acquired 5 mm axial sections were obtained from the lung bases through the abdomen during arterial and portal venous phases following the administration of 150 cc of Isovue-370 intravenous contrast. Imaging through the pelvis was performed during the portal venous phase. Thin section reconstructed images were obtained through the pancreas. Gastrografin oral contrast was also administered. The [id number] is 36 cm. Findings: Small amount of left greater than right dependent basilar atelectasis is present. Surgical changes are identified compatible with Kasai procedure. Tiny amount of pneumobilia is present. There is fluid layering along the anterior aspect of the body and tail the pancreas and extending into the left anterior pararenal space. Small amount of subhepatic free fluid is also identified adjacent to the inferior tip of the right hepatic lobe. Irregular collection of gas and surrounding soft tissue density and adjacent mesenteric fat stranding is identified which is immediately adjacent to, possibly continuous with, the lumen of the Burton loop immediately anterior and inferior to the body the pancreas. No free air is demonstrated. The liver demonstrates normal enhancement without evidence for intrahepatic mass or abscess collection. The pancreas, spleen, adrenal glands and kidneys enhance normally. 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 Celiac collaterals are present. Small periaortic lymph nodes are demonstrated. Small amount of fluid is layering dependently within the pelvis. CT appearance of the uterus and ovaries is unremarkable. Milner catheter balloon is present within a collapsed urinary bladder. No destructive osseous lesions demonstrated. Impression Abdomen: 1. Surgical changes compatible with Kasai procedure. 2. Gas collection with a irregular surrounding soft tissue density and mesenteric stranding is either continuous with the Burton loop or other jejunal loop or extraluminal immediately adjacent concerning for infection/abscess. 3. Subhepatic and peripancreatic fluid extending into the left anterior pararenal space. Recommend clinical correlation for possible pancreatitis. Impression Pelvis: 1. Small amount of ascites The Initial report of this examination was provided by a Resident Radiologist The report becomes the final report only after image review and report signature by the Staff Radiologist. end of result Procedure Note Ehsan Nielsen MD - 10/24/2011 VERIFIED ADDENDED REPORT ADDENDUM# 1 [facility] Reason: r/o cholangitits Dict.Staff: EHSAN NIELSEN [id number] Dict.Res: FEDE GUTIERRES [id number] Verified By: EHSAN NIELSEN Trice: 12/04/06 3:44 pm Exams: CT-ABDOMEN WITH CONTRAST CT-PELVIS WITH CONTRAST Addendum: I have reviewed the images and agree with the preliminary findings and impression. The abnormal gas collection with surrounding soft tissue density mesenteric stranding could reflect a contained jejunal perforation. 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 Findings were discussed with Dr. Dejuan Amador with transplant surgery at 8:00 a.m. on 12/04/2006. VERIFIED ADDENDED REPORT ADDENDUM# 0 [facility] Reason: r/o cholangitits Dict.Staff: ELSA [facility] Dict.Res: FEDE GUTIERRES [id number] Verified By: [facility], COUNT INCLUDES THE [facility] Trice: 12/04/06 8:21 am Exams: CT-ABDOMEN WITH CONTRAST CT-PELVIS WITH CONTRAST Abdomen and pelvis CT with contrast Date: 12/03/2006 Indication: Abdominal pain. History of Kasai procedure. Concern for cholangitis. Comparison: None Technical factors: Helically acquired 5 mm axial sections were obtained from the lung bases through the abdomen during arterial and portal venous phases following the administration of 150 cc of Isovue-370 intravenous contrast. Imaging through the pelvis was performed during the portal venous phase. Thin section reconstructed images were obtained through the pancreas. Gastrografin oral contrast was also administered. The [id number] is 36 cm. Findings: Small amount of left greater than right dependent basilar atelectasis is present. Surgical changes are identified compatible with Kasai procedure. Tiny amount of pneumobilia is present. There is fluid layering along the anterior aspect of the body and tail the pancreas and extending into the left anterior pararenal space. Small amount of subhepatic free fluid is also identified adjacent to the inferior tip of the right hepatic lobe. Irregular collection of gas and surrounding soft tissue density and adjacent mesenteric fat stranding is identified which is immediately adjacent to, possibly continuous with, the lumen of the Burton loop immediately anterior and inferior to the body the pancreas. No free air is demonstrated. The liver demonstrates normal enhancement without evidence for intrahepatic mass or abscess collection. The pancreas, spleen, adrenal glands and kidneys enhance normally. 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 Celiac collaterals are present. Small periaortic lymph nodes are demonstrated. Small amount of fluid is layering dependently within the pelvis. CT appearance of the uterus and ovaries is unremarkable. Milner catheter balloon is present within a collapsed urinary bladder. No destructive osseous lesions demonstrated. Impression Abdomen: 1. Surgical changes compatible with Kasai procedure. 2. Gas collection with a irregular surrounding soft tissue density and mesenteric stranding is either continuous with the Burton loop or other jejunal loop or extraluminal immediately adjacent concerning for infection/abscess. 3. Subhepatic and peripancreatic fluid extending into the left anterior pararenal space. Recommend clinical correlation for possible pancreatitis. Impression Pelvis: 1. Small amount of ascites The Initial report of this examination was provided by a Resident Radiologist The report becomes the final report only after image review and report signature by the Staff Radiologist. end of result Cayden Velez MD [facility] CT ORDERABLES Final Result * CT Abdomen With contrast (12/03/2006 4:42 PM EDT) Anatomical Region Laterality Modality Abdomen Computed Tomogra phy 12/03/2006 4:42 PM EDT Narrative 12/04/2006 1:41 AM EDT VERIFIED ? ADDENDED REPORT ? ADDENDUM# 1 [facility] Reason: ??r/o cholangitits Dict.Staff: EHSAN NIELSEN [id number] Dict.Res: FEDE GUTIERRES [id number] Verified By: EHSAN NIELSEN ? Trice: 12/04/06 ?? 3:44 pm Exams: ??CT-ABDOMEN WITH CONTRAST CT-PELVIS WITH CONTRAST Addendum: I have reviewed the images and agree with the preliminary findings and impression. The abnormal gas collection with surrounding soft tissue density mesenteric stranding could reflect a contained jejunal perforation. 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 Findings were discussed with Dr. Dejuan Amador with transplant surgery at 8:00 a.m. on 12/04/2006. VERIFIED ? ADDENDED REPORT ? ADDENDUM# 0 [facility] Reason: ??r/o cholangitits Dict.Staff: PRELIMINARY, [facility] Dict.Res: FEDE GUTIERRES [id number] Verified By: PRELIMINARY, COUNT INCLUDES THE [facility] ? Trice: 12/04/06 ?? 8:21 am Exams: ??CT-ABDOMEN WITH CONTRAST CT-PELVIS WITH CONTRAST Abdomen and pelvis CT with contrast Date: 12/03/2006 Indication: Abdominal pain. History of Kasai procedure. Concern for cholangitis. Comparison: None Technical factors: Helically acquired 5 mm axial sections were obtained from the lung bases through the abdomen during arterial and portal venous phases following the administration of 150 cc of Isovue-370 intravenous contrast. Imaging through the pelvis was performed during the portal venous phase. Thin section reconstructed images were obtained through the pancreas. Gastrografin oral contrast was also administered. The mekxy-yv-tyik is 36 cm. Findings: Small amount of left greater than right dependent basilar atelectasis is present. Surgical changes are identified compatible with Kasai procedure. Tiny amount of pneumobilia is present. There is fluid layering along the anterior aspect of the body and tail the pancreas and extending into the left anterior pararenal space. Small amount of subhepatic free fluid is also identified adjacent to the inferior tip of the right hepatic lobe. Irregular collection of gas and surrounding soft tissue density and adjacent mesenteric fat stranding is identified which is immediately adjacent to, possibly continuous with, the lumen of the Burton loop immediately anterior and inferior to the body the pancreas. No free air is demonstrated. The liver demonstrates normal enhancement without evidence for intrahepatic mass or abscess collection. The pancreas, spleen, adrenal glands and kidneys enhance normally. 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 Celiac collaterals are present. Small periaortic lymph nodes are demonstrated. Small amount of fluid is layering dependently within the pelvis. CT appearance of the uterus and ovaries is unremarkable. Milner catheter balloon is present within a collapsed urinary bladder. No destructive osseous lesions demonstrated. Impression Abdomen: 1. Surgical changes compatible with Kasai procedure. 2. Gas collection with a irregular surrounding soft tissue density and mesenteric stranding is either continuous with the Burton loop or other jejunal loop or extraluminal immediately adjacent concerning for infection/abscess. 3. Subhepatic and peripancreatic fluid extending into the left anterior pararenal space. Recommend clinical correlation for possible pancreatitis. Impression Pelvis: 1. Small amount of ascites The Initial report of this examination was provided by a Resident Radiologist The report becomes the final report only after image review and report signature by the Staff Radiologist. end of result Procedure Note Ehsan Nielsen MD - 10/24/2011 VERIFIED ADDENDED REPORT ADDENDUM# 1 [facility] Reason: r/o cholangitits Dict.Staff: EHSAN NIELSEN [id number] Dict.Res: FEDE GUTIERRES [id number] Verified By: EHSAN NIELSEN Trice: 12/04/06 3:44 pm Exams: CT-ABDOMEN WITH CONTRAST CT-PELVIS WITH CONTRAST Addendum: I have reviewed the images and agree with the preliminary findings and impression. The abnormal gas collection with surrounding soft tissue density mesenteric stranding could reflect a contained jejunal perforation. 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 Findings were discussed with Dr. Dejuan Amador with transplant surgery at 8:00 a.m. on 12/04/2006. VERIFIED ADDENDED REPORT ADDENDUM# 0 [facility] Reason: r/o cholangitits Dict.Staff: PRELIMINARY, [facility] Dict.Res: FEDE GUTIERRES [id number] Verified By: [facility], COUNT INCLUDES THE [facility] Trice: 12/04/06 8:21 am Exams: CT-ABDOMEN WITH CONTRAST CT-PELVIS WITH CONTRAST Abdomen and pelvis CT with contrast Date: 12/03/2006 Indication: Abdominal pain. History of Kasai procedure. Concern for cholangitis. Comparison: None Technical factors: Helically acquired 5 mm axial sections were obtained from the lung bases through the abdomen during arterial and portal venous phases following the administration of 150 cc of Isovue-370 intravenous contrast. Imaging through the pelvis was performed during the portal venous phase. Thin section reconstructed images were obtained through the pancreas. Gastrografin oral contrast was also administered. The sjzty-ht-ruyk is 36 cm. Findings: Small amount of left greater than right dependent basilar atelectasis is present. Surgical changes are identified compatible with Kasai procedure. Tiny amount of pneumobilia is present. There is fluid layering along the anterior aspect of the body and tail the pancreas and extending into the left anterior pararenal space. Small amount of subhepatic free fluid is also identified adjacent to the inferior tip of the right hepatic lobe. Irregular collection of gas and surrounding soft tissue density and adjacent mesenteric fat stranding is identified which is immediately adjacent to, possibly continuous with, the lumen of the Burton loop immediately anterior and inferior to the body the pancreas. No free air is demonstrated. The liver demonstrates normal enhancement without evidence for intrahepatic mass or abscess collection. The pancreas, spleen, adrenal glands and kidneys enhance normally. 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 Celiac collaterals are present. Small periaortic lymph nodes are demonstrated. Small amount of fluid is layering dependently within the pelvis. CT appearance of the uterus and ovaries is unremarkable. Milner catheter balloon is present within a collapsed urinary bladder. No destructive osseous lesions demonstrated. Impression Abdomen: 1. Surgical changes compatible with Kasai procedure. 2. Gas collection with a irregular surrounding soft tissue density and mesenteric stranding is either continuous with the Burton loop or other jejunal loop or extraluminal immediately adjacent concerning for infection/abscess. 3. Subhepatic and peripancreatic fluid extending into the left anterior pararenal space. Recommend clinical correlation for possible pancreatitis. Impression Pelvis: 1. Small amount of ascites The Initial report of this examination was provided by a Resident Radiologist The report becomes the final report only after image review and report signature by the Staff Radiologist. end of result Cayden Velez MD IM CT ORDERABLES Final Result documented in this encounter Visit Diagnoses Not on filedocumented in this encounter Care Teams Front Edger Relationship Specialty Start Date End Date Camila Jasso MD [address] [place] [address] PCP - General 12/03/06 10/08/16 documented as of this encounter
--- OUTSIDE RECORDS SUMMARY | 2024-03-14 18:27 | XMS_ITS | Encounter Summary ---
Author Organization [facility] Address [address] [place] [address] Care Team Providers Care Fur Examiner Name Role Phone Camila Jasso MD Primary Care Provider [phone] Source Comments This information has been disclosed [...] release of HIV test results or diagnoses. [id number] Health Encounter Details Date Type Department Care Team (Late st Contact Info) Description 03/03/2009 - 03/03/2009 11:59 PM EST Hospital Encounter OP HISTORICAL [address] [place] [phone] Social History Tobacco Use Types Packs/Day Years [...] Name Priority Date/Time Associated Diagnosis Comments MRI ABDOMEN WITHOUT CONTRAST Routine 03/03/2009 6:38 AM EST documented in this encounter Results * MRI Abdomen Without contrast (03/03/2009 6:38 AM EST) Anatomical Region Laterality Modality Abdomen Magnetic Resonan ce 03/03/2009 6:38 AM EST Narrative 03/03/2009 2:53 PM EST Name: OBIE Flowers : ??[address] [facility] Reason: ??BILIARY ATRESIA; CHOLANGITIS Dict.Staff: ADRIANO KIMBALL [id number] Dict.Res: VLADIMIR (FELLOW), LIBORIO [id number] Verified By: ADRIANO KIMBALL ? Trice: 03/08/09 ??10:39 am Exams: ??MRI-ABDOMEN W/O CONTRAST Examination: MRI abdomen without contrast, MRCP protocol Date: 03/03/2009 History: Biliary atresia status post Kasai procedure, cholangitis Comparison: CT abdomen pelvis 02/13/2009 Technique: Multiplanar T2 single shot fast spin-echo MR images of the abdomen as well as coronal thick slab and thin section long TE images of the abdomen are provided. Findings: There is segmental intrahepatic biliary ductal dilation within the lateral segment of the left hepatic lobe. The largest dilated bile duct measures up to 5 mm in diameter. The caliber of dilation is similar to that seen on the comparison CT examination. There are numerous filling defects within dilated segments of bile ducts that likely represents pneumobilia. While the site of narrowing is not clearly identified, it occurs at approximately the level of the falciform ligament. No corresponding parenchymal abnormality is seen within the left hepatic lobe. No additional sites of intrahepatic biliary ductal dilation are noted. The intrahepatic bile ducts drain into a loop of jejunum consistent with the history of a Kasai procedure. The hepatic parenchyma demonstrates normal signal characteristics without focal abnormality. The pancreatic duct within the body and tail is of normal caliber. There is a tubular fluid signal structure coursing horizontally with the posterior aspect of the pancreatic head, which may represent a remnant of the common biliary duct. The exact etiology is unclear. No pancreatic parenchymal abnormality. Visualized portions of the spleen, kidneys, and adrenal glands are within normal limits. Impression: Segmental intrahepatic biliary ductal dilation unchanged from the prior CT. Given the presence air, this is thought to be nonocclusive. No hepatic parenchymal signal abnormality. end of result Procedure Note Adriano Kimball MD - 10/25/2011 Name: OBIE Flowers : [address] [facility] Reason: BILIARY ATRESIA; CHOLANGITIS Dict.Staff: ADRIANO KIMBALL [id number] Dict.Res: VLADIMIR (FELLOW), LIBORIO [id number] Verified By: ADRIANO KIMBALL Trice: 03/08/09 10:39 am Exams: MRI-ABDOMEN W/O CONTRAST Examination: MRI abdomen without contrast, MRCP protocol Date: 03/03/2009 History: Biliary atresia status post Kasai procedure, cholangitis Comparison: CT abdomen pelvis 02/13/2009 Technique: Multiplanar T2 single shot fast spin-echo MR images of the abdomen as well as coronal thick slab and thin section long TE images of the abdomen are provided. Findings: There is segmental intrahepatic biliary ductal dilation within the lateral segment of the left hepatic lobe. The largest dilated bile duct measures up to 5 mm in diameter. The caliber of dilation is similar to that seen on the comparison CT examination. There are numerous filling defects within dilated segments of bile ducts that likely represents pneumobilia. While the site of narrowing is not clearly identified, it occurs at approximately the level of the falciform ligament. No corresponding parenchymal abnormality is seen within the left hepatic lobe. No additional sites of intrahepatic biliary ductal dilation are noted. The intrahepatic bile ducts drain into a loop of jejunum consistent with the history of a Kasai procedure. The hepatic parenchyma demonstrates normal signal characteristics without focal abnormality. The pancreatic duct within the body and tail is of normal caliber. There is a tubular fluid signal structure coursing horizontally with the posterior aspect of the pancreatic head, which may represent a remnant of the common biliary duct. The exact etiology is unclear. No pancreatic parenchymal abnormality. Visualized portions of the spleen, kidneys, and adrenal glands are within normal limits. Impression: Segmental intrahepatic biliary ductal dilation unchanged from the prior CT. Given the presence air, this is thought to be nonocclusive. No hepatic parenchymal signal abnormality. end of result Gerard Agosto MD [facility] [place] [place] MRI ORDERABLES Final Result documented in this encounter Visit Diagnoses Not on filedocumented in this encounter Care Teams Fur Examiner Relationship Specialty Start Date End Date Camila Jasso MD [address] [place] [address] PCP - General 12/03/06 10/08/16 documented as of this encounter
--- OUTSIDE RECORDS SUMMARY | 2024-03-14 18:27 | XMS_ITS | Encounter Summary ---
Author Organization [facility] Address [address] [place] [address] Care Team Providers Care Fiber Analyst Name Role Phone Camila Jasso MD Primary Care Provider [phone] Source Comments This information has been disclosed [...] release of HIV test results or diagnoses. [id number] Health Encounter Details Date Type Department Care Team (Late st Contact Info) Description 06/12/2009 - 06/12/2009 11:59 PM EST Hospital Encounter OP HISTORICAL [address] [place] [phone] Social History Tobacco Use Types Packs/Day Years [...] Name Priority Date/Time Associated Diagnosis Comments CT ANGIO ABDOMEN W AND OR WO IV CONTRAST Routine 06/12/2009 1:44 PM EST documented in this encounter Results * CT Angio Abdomen W and or WO (06/12/2009 1:44 PM EST) Anatomical Region Laterality Modality Abdomen, Vascular Computed Tomog rossana 06/12/2009 1:44 PM EST Narrative 06/13/2009 8:07 AM EST ?[employer] Patient: [place] CHILDRESS : ? 1980 Accn#: ?? [id number] ? Computed Tomography Exam ? Exam Date/Time ? Ordering Physician CT-ANGIO ABDOMEN W &/OR ?06/12/2009 13:44 EST FREDY SCHUSTER Reason for Exam BILE DUCT STRICTURE 576.[address] angiography of the abdomen with contrast on June 12, 2009. Indication: Biliary stricture. History of choledochojejunostomy. Technical factors: Thin section helical scanning was performed through the abdomen following administration of 150 cc nonionic intravenous contrast (Omnipaque-300). Ewdsv-zf-prfd is 34 cm. Multiplanar reformats and 3D volume rendering of the abdominal vasculature was performed in the 3D laboratory. Findings: There is a high-grade stenosis of the celiac artery from arcuate ligament compression with post stenotic dilation. No gastroduodenal artery is visualized. The hepatic artery is patent. The superior mesenteric artery and other visceral branches of the aorta are patent. 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 The mesenteric venous structures appear intact. There are changes of choledochojejunostomy noted. There is mild left hepatic biliary dilation with pneumobilia. No focal hepatic abnormalities are evident. The spleen is borderline enlarged. The kidneys, pancreas, adrenal glands, and visualized gastrointestinal tract appear normal. The gallbladder is not identified. The lung bases are clear. No lytic or blastic bone lesions are seen. Impression: 1. Status post choledochojejunostomy. 2. 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 3. See above for other findings. VERIFIED REPORT Dictated: 06/13/2009 8:07 am ?YOLANDA TIPTON M.D. Signed (Electronic Signature): ??DANUTA Martinez, YOLANDA Gonzalez ?06/13/09 8:09 Technologist: VIJAY Procedure Note Yolanda Tipton MD - 10/25/2011 [employer] [facility]: [place] [facility]DR[facility] 1980 [id number] Computed Tomography Exam Exam Date/Time Ordering Physician CT-ANGIO ABDOMEN W &/OR 06/12/2009 13:44 EST FREDY SCHUSTER Reason for Exam BILE DUCT STRICTURE 576.[address] angiography of the abdomen with contrast on June 12, 2009. Indication: Biliary stricture. History of choledochojejunostomy. Technical factors: Thin section helical scanning was performed throughthe abdomen following administration of 150 cc nonionic intravenouscontrast (Omnipaque-300). Mppfx-px-slbb is 34 cm. Multiplanar reformats and 3D volume rendering of the abdominal vasculature was performed in the 3D laboratory. Findings: There is a high-grade stenosis of the celiac artery from arcuateligament compression with post stenotic dilation. No gastroduodenal artery is visualized. The hepatic artery is patent. The superior mesentericartery and other visceral branches of the aorta are patent. 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 The mesenteric venous structures appear intact. There are changes of choledochojejunostomy noted. There is mild left hepatic biliary dilation with pneumobilia. No focal hepaticabnormalities are evident. The spleen is borderline enlarged. The kidneys, pancreas, adrenalglands, and visualized gastrointestinal tract appear normal. The gallbladder isnot identified. The lung bases are clear. No lytic or blastic bone lesions are seen. Impression: 1. Status post choledochojejunostomy. 2. High-grade celiac artery stenosis from arcuate ligament compressionwith post stenotic dilation. 3. See above for other findings. VERIFIED REPORT Dictated: 06/13/2009 8:07 am YOLANDA TIPTON M.D. Signed (Electronic Signature): YOLANDA TIPTON M.D. S006/13/09 8:09 Technologist: VIJAY us Fredy Schuster MD IMG CT ORDERABLES Final Result documented in this encounter Visit Diagnoses Not on filedocumented in this encounter Care Teams Fiber Analyst Relationship Specialty Start Date End Date Camila Jasso MD [address] [place] [address] PCP - General 12/03/06 10/08/16 documented as of this encounter
--- OUTSIDE RECORDS SUMMARY | 2024-03-14 18:27 | XMS_ITS | Encounter Summary ---
Author Organization [facility] Address [address] [place] [address] Care Team Providers Care Epidemiology Investigator Name Role Phone Camila Jasso MD Primary Care Provider [phone] Source Comments This information has been disclosed [...] release of HIV test results or diagnoses. [id number] Health Encounter Details Date Type Department Care Team (Late st Contact Info) Description 12/15/2006 - 04/20/2007 11:59 PM EST Hospital Encounter OP HISTORICAL [address] [place] [phone] Social History Tobacco Use Types Packs/Day Years [...] on filedocumented in this encounter Care Teams Epidemiology Investigator Relationship Specialty Start Date End Date Camila Jasso MD [address] [place] [address] PCP - General 12/03/06 10/08/16 documented as of this encounter
--- OUTSIDE RECORDS SUMMARY | 2024-03-14 18:27 | XMS_ITS | Encounter Summary ---
Author Organization [facility] Address [address] [place] [id number] Care Team Providers Care Certified Orthotist Practice Manager Name Role Phone Camila Jasso MD Primary Care Provider [phone] Source Comments This information has been disclosed [...] release of HIV test results or diagnoses. [id number] Health Encounter Details Date Type Department Care Team (Late st Contact Info) Description 06/22/2009 - 06/22/2009 11:59 PM EST Hospital Encounter OP HISTORICAL [address] [place] [id number] Social History Tobacco Use Types Packs/Day Years [...] IR INJ CHOLANGIOGRAPHY VIA EXISTING CATHETER Routine 06/22/2009 10:20 AM EST IR CHOLANGIOGRAM VIA EXISTING T-TUBE S-I Routine 06/22/2009 10:20 AM EST IR BILIARY DRAIN CATHETER CHANGE Routine 06/22/2009 10:20 AM EST IR MISCELLANEOUS TUBE CHANGE S-I Routine 06/22/2009 10:20 AM EST documented in this encounter Results * IR Cholangiogram via exist T-tube S-I (06/22/2009 10:20 AM EST) Anatomical Region Laterality Modality Abdomen, Vascular X-Ray Angiogra phy 06/22/2009 10:2 0 AM EST Narrative 06/23/2009 5:45 PM EST ? [facility] Patient: [place] CHILDRESS : ? 1980 Accn#: ?? [id number] ?Interventional Radiology Exam Date/Time 06/22/2009 10:20 EST 06/22/2009 10:20 EST 06/22/2009 10:20 EST 06/22/2009 10:20 EST Reason for Exam: (ANG-MISC TUBE CHANGE S&I) ??BILIARY OBSTRUCTION (ANG-INJ CHOLANGIO EXIST CATH) ??BILIARY OBSTRUCTION (ANG-CHOLANGIO T-TUBE S&I) ??BILIARY OBSTRUCTION (ANG-BILIARY CATH CHANGE) ??BILIARY OBSTRUCTION Report Procedures: 1) CHOLANGIOGRAM 2) BILIARY CATHETER EXCHANGE Performed on June 22, 2009 Indications: Biliary obstruction, history of biliary atresia, status post biliary drainage placement. Comparison: 06/16/2009 Operators: Attending: Dr. Nielsen (present for the entire procedure) Procedure and Findings: The procedure was performed in the VIR suite following informed consent. The patient received preprocedure IV antibiotics. ??The patient received 35 minutes of IV moderate sedation under the supervision of the radiologist. 1% lidocaine local anesthesia was used. ??With the patient in a supine position, the upper abdomen and existing biliary drainage catheter were prepped and draped in the usual sterile fashion. Contrast was injected through the existing 14 biliary drainage catheter in a biliary duct within the left hepatic lobe and a cholangiogram was performed. ??The catheter was in an appropriate position. ??There was prompt drainage Of contrast into the small bowel without evidence of biliary stricture. A 0.035 inch guidewire was passed through the existing biliary catheter using fluoroscopic guidance. ??The catheter was withdrawn and a 5 -F angled glide catheter was placed over the guidewire. The glide catheter was exchanged over the guidewire for a 16 Chilean dilator. A new 16 [place]an Bentec internal / external, biliary drainage catheter was then placed over the wire. ??An inner 8 Chilean biliary catheter was used to provide rigidity to the Bentec biliary drainage catheter during placement over the wire. This inner 8 [place]an catheter was subsequently removed following proper placement of the Bentec biliary drainage catheter. By fluoroscopy, the biliary catheter was positioned with the upper side holes along the peripheral intrahepatic ducts and the distal catheter positioned in the small bowel. The biliary catheter was secured with suture and dressed in the usual fashion. ??The catheter was capped to internal drainage. There were no immediate complications. IMPRESSION: 1. Successful exchange and upsizing of the internal / external, biliary drainage catheter. ??The patient currently has a 16 [place]an Bentec internal / external, biliary drainage catheter in a left intrahepatic biliary duct. VERIFIED REPORT Dictated: 06/23/2009 5:46 pm ?PILO PIÑA M.D. Signed (Electronic Signature): ??CHRISTOPHER NIELSEN M.D. ? 06/26/09 5:31 Resident: ??PILO PIÑA M.D. Technologist: TAS Procedure Note Christopher Nielsen MD - 10/25/2011 [facility] Patient: [place] [facility]DR[facility] 1980 [id number] Interventional Radiology Exam Date/Time 06/22/2009 10:20 EST 06/22/2009 10:20 EST 06/22/2009 10:20 EST 06/22/2009 10:20 EST Reason for Exam: (ANG-MISC TUBE CHANGE S&I) BILIARY OBSTRUCTION (ANG-INJ CHOLANGIO EXIST CATH) BILIARY OBSTRUCTION (ANG-CHOLANGIO T-TUBE S&I) BILIARY OBSTRUCTION (ANG-BILIARY CATH CHANGE) BILIARY OBSTRUCTION Report Procedures: 1) CHOLANGIOGRAM 2) BILIARY CATHETER EXCHANGE Performed on June 22, 2009 Indications: Biliary obstruction, history of biliary atresia, statuspost biliary drainage placement. Comparison: 06/16/2009 Operators: Attending: Dr. Nielsen (present for the entire procedure) Procedure and Findings: The procedure was performed in the VIR suite following informedconsent. The patient received preprocedure IV antibiotics. The patient [id number] minutes of IV moderate sedation under the supervision of theradiologist. 1% lidocaine local anesthesia was used. With the patient in a supine position, the upper abdomen and existing biliary drainage catheter were prepped and draped in the usual sterile fashion. Contrast was injected through the existing 14 biliary drainage catheterin a biliary duct within the left hepatic lobe and a cholangiogram was performed. The catheter was in an appropriate position. There wasprompt drainage Of contrast into the small bowel without evidence of biliary stricture. A 0.035 inch guidewire was passed through the existing biliary catheter using fluoroscopic guidance. The catheter was withdrawn and a 5 -Fangled glide catheter was placed over the guidewire. The glide catheter was exchanged over the guidewire for a 16 Chilean dilator. A new 16 [place]an Bentec internal / external, biliary drainage catheter was then placed over the wire. An inner 8 Chilean biliarycatheter was used to provide rigidity to the Bentec biliary drainage catheterduring placement over the wire. This inner 8 [place]an catheter was subsequently removed following proper placement of the Bentec biliary drainagecatheter. By fluoroscopy, the biliary catheter was positioned with the upper side holes along the peripheral intrahepatic ducts and the distal catheter positioned in the small bowel. The biliary catheter was secured with suture and dressed in the usual fashion. The catheter was capped to internal drainage. There were no immediate complications. IMPRESSION: 1. Successful exchange and upsizing of the internal / external, biliary drainage catheter. The patient currently has a 16 [place]an Bentec internal/ external, biliary drainage catheter in a left intrahepatic biliaryduct. VERIFIED REPORT Dictated: 06/23/2009 5:46 pm PILO PIÑA M.D.. Signed (Electronic Signature): CHRISTOPHER NIELSEN M.D. N006/26/09 5:31 Resident: PILO PIÑA M.D. Technologist: JULY us Fredy Schuster MD IMG IR ORDERABLES Final Result * IR inj Cholang existing cath (06/22/2009 10:20 AM EST) Anatomical Region Laterality Modality Abdomen X-Ray Angiograph y 06/22/2009 10:2 0 AM EST Narrative 06/23/2009 5:45 PM EST ? [facility] Patient: [place] CHILDRESS : ? 1980 Accn#: ?? [id number] ?Interventional Radiology Exam Date/Time 06/22/2009 10:20 EST 06/22/2009 10:20 EST 06/22/2009 10:20 EST 06/22/2009 10:20 EST Reason for Exam: (ANG-MISC TUBE CHANGE S&I) ??BILIARY OBSTRUCTION (ANG-INJ CHOLANGIO EXIST CATH) ??BILIARY OBSTRUCTION (ANG-CHOLANGIO T-TUBE S&I) ??BILIARY OBSTRUCTION (ANG-BILIARY CATH CHANGE) ??BILIARY OBSTRUCTION Report Procedures: 1) CHOLANGIOGRAM 2) BILIARY CATHETER EXCHANGE Performed on June 22, 2009 Indications: Biliary obstruction, history of biliary atresia, status post biliary drainage placement. Comparison: 06/16/2009 Operators: Attending: Dr. Nielsen (present for the entire procedure) Procedure and Findings: The procedure was performed in the VIR suite following informed consent. The patient received preprocedure IV antibiotics. ??The patient received 35 minutes of IV moderate sedation under the supervision of the radiologist. 1% lidocaine local anesthesia was used. ??With the patient in a supine position, the upper abdomen and existing biliary drainage catheter were prepped and draped in the usual sterile fashion. Contrast was injected through the existing 14 biliary drainage catheter in a biliary duct within the left hepatic lobe and a cholangiogram was performed. ??The catheter was in an appropriate position. ??There was prompt drainage Of contrast into the small bowel without evidence of biliary stricture. A 0.035 inch guidewire was passed through the existing biliary catheter using fluoroscopic guidance. ??The catheter was withdrawn and a 5 -F angled glide catheter was placed over the guidewire. The glide catheter was exchanged over the guidewire for a 16 [place]an dilator. A new 16 [place]an Bentec internal / external, biliary drainage catheter was then placed over the wire. ??An inner 8 [place]an biliary catheter was used to provide rigidity to the Bentec biliary drainage catheter during placement over the wire. This inner 8 [place]an catheter was subsequently removed following proper placement of the Bentec biliary drainage catheter. By fluoroscopy, the biliary catheter was positioned with the upper side holes along the peripheral intrahepatic ducts and the distal catheter positioned in the small bowel. The biliary catheter was secured with suture and dressed in the usual fashion. ??The catheter was capped to internal drainage. There were no immediate complications. IMPRESSION: 1. Successful exchange and upsizing of the internal / external, biliary drainage catheter. ??The patient currently has a 16 [place]an Bentec internal / external, biliary drainage catheter in a left intrahepatic biliary duct. VERIFIED REPORT Dictated: 06/23/2009 5:46 pm ?PILO PIÑA M.D. Signed (Electronic Signature): ??CHRISTOPHER NIELSEN M.D. ? 06/26/09 5:31 Resident: ??PILO PIÑA M.D. Technologist: TAS Procedure Note Christopher Nielsen MD - 10/25/2011 [facility] Patient: [place] CHILDRESS [facility] 1980 [id number] Interventional Radiology Exam Date/Time 06/22/2009 10:20 EST 06/22/2009 10:20 EST 06/22/2009 10:20 EST 06/22/2009 10:20 EST Reason for Exam: (ANG-MISC TUBE CHANGE S&I) BILIARY OBSTRUCTION (ANG-INJ CHOLANGIO EXIST CATH) BILIARY OBSTRUCTION (ANG-CHOLANGIO T-TUBE S&I) BILIARY OBSTRUCTION (ANG-BILIARY CATH CHANGE) BILIARY OBSTRUCTION Report Procedures: 1) CHOLANGIOGRAM 2) BILIARY CATHETER EXCHANGE Performed on June 22, 2009 Indications: Biliary obstruction, history of biliary atresia, statuspost biliary drainage placement. Comparison: 06/16/2009 Operators: Attending: Dr. Nielsen (present for the entire procedure) Procedure and Findings: The procedure was performed in the VIR suite following informedconsent. The patient received preprocedure IV antibiotics. The patient minutes of IV moderate sedation under the supervision of theradiologist. 1% lidocaine local anesthesia was used. With the patient in a supine position, the upper abdomen and existing biliary drainage catheter were prepped and draped in the usual sterile fashion. Contrast was injected through the existing 14 biliary drainage catheterin a biliary duct within the left hepatic lobe and a cholangiogram was performed. The catheter was in an appropriate position. There wasprompt drainage Of contrast into the small bowel without evidence of biliary stricture. A 0.035 inch guidewire was passed through the existing biliary catheter using fluoroscopic guidance. The catheter was withdrawn and a 5 -Fangled glide catheter was placed over the guidewire. The glide catheter was exchanged over the guidewire for a 16 Chilean dilator. A new 16 [place]an Bentec internal / external, biliary drainage catheter was then placed over the wire. An inner 8 Chilean biliarycatheter was used to provide rigidity to the Bentec biliary drainage catheterduring placement over the wire. This inner 8 [place]an catheter was subsequently removed following proper placement of the Bentec biliary drainagecatheter. By fluoroscopy, the biliary catheter was positioned with the upper side holes along the peripheral intrahepatic ducts and the distal catheter positioned in the small bowel. The biliary catheter was secured with suture and dressed in the usual fashion. The catheter was capped to internal drainage. There were no immediate complications. IMPRESSION: 1. Successful exchange and upsizing of the internal / external, biliary drainage catheter. The patient currently has a 16 [place]an Bentec internal/ external, biliary drainage catheter in a left intrahepatic biliaryduct. VERIFIED REPORT Dictated: 06/23/2009 5:46 pm PILO PIÑA M.D. Signed (Electronic Signature): MORALES Martinez CHRISTOPHER N006/26/09 5:31 Resident: PILO PIÑA M.D. Technologist: JULY us Fredy Schuster MD IMG IR ORDERABLES Final Result * IR Miscellaneous Tube Change S-I (06/22/2009 10:20 AM EST) Anatomical Region Laterality Modality Vascular X-Ray Angiograph y 06/22/2009 10:2 0 AM EST Narrative 06/23/2009 5:45 PM EST ? [facility] Patient: [place] CHILDRESS : ? 1980 Accn#: ?? [id number] ?Interventional Radiology Exam Date/Time 06/22/2009 10:20 EST 06/22/2009 10:20 EST 06/22/2009 10:20 EST 06/22/2009 10:20 EST Reason for Exam: (ANG-MISC TUBE CHANGE S&I) ??BILIARY OBSTRUCTION (ANG-INJ CHOLANGIO EXIST CATH) ??BILIARY OBSTRUCTION (ANG-CHOLANGIO T-TUBE S&I) ??BILIARY OBSTRUCTION (ANG-BILIARY CATH CHANGE) ??BILIARY OBSTRUCTION Report Procedures: 1) CHOLANGIOGRAM 2) BILIARY CATHETER EXCHANGE Performed on June 22, 2009 Indications: Biliary obstruction, history of biliary atresia, status post biliary drainage placement. Comparison: 06/16/2009 Operators: Attending: Dr. Nielsen (present for the entire procedure) Procedure and Findings: The procedure was performed in the VIR suite following informed consent. The patient received preprocedure IV antibiotics. ??The patient received 35 minutes of IV moderate sedation under the supervision of the radiologist. 1% lidocaine local anesthesia was used. ??With the patient in a supine position, the upper abdomen and existing biliary drainage catheter were prepped and draped in the usual sterile fashion. Contrast was injected through the existing 14 biliary drainage catheter in a biliary duct within the left hepatic lobe and a cholangiogram was performed. ??The catheter was in an appropriate position. ??There was prompt drainage Of contrast into the small bowel without evidence of biliary stricture. A 0.035 inch guidewire was passed through the existing biliary catheter using fluoroscopic guidance. ??The catheter was withdrawn and a 5 -F angled glide catheter was placed over the guidewire. The glide catheter was exchanged over the guidewire for a 16 [place]an dilator. A new 16 [place]an Bentec internal / external, biliary drainage catheter was then placed over the wire. ??An inner 8 [place]an biliary catheter was used to provide rigidity to the Bentec biliary drainage catheter during placement over the wire. This inner 8 [place]an catheter was subsequently removed following proper placement of the Bentec biliary drainage catheter. By fluoroscopy, the biliary catheter was positioned with the upper side holes along the peripheral intrahepatic ducts and the distal catheter positioned in the small bowel. The biliary catheter was secured with suture and dressed in the usual fashion. ??The catheter was capped to internal drainage. There were no immediate complications. IMPRESSION: 1. Successful exchange and upsizing of the internal / external, biliary drainage catheter. ??The patient currently has a 16 [place]an Bentec internal / external, biliary drainage catheter in a left intrahepatic biliary duct. VERIFIED REPORT Dictated: 06/23/2009 5:46 pm ?PILO PIÑA M.D. Signed (Electronic Signature): ??CHRISTOPHER NIELSEN M.D. ? 06/26/09 5:31 Resident: ??PILO PIÑA M.D. Technologist: TAS Procedure Note Christopher Nielsen MD - 10/25/2011 [facility] Patient: [place] CHILDRESS : 1980 [id number] Interventional Radiology Exam Date/Time 06/22/2009 10:20 EST 06/22/2009 10:20 EST 06/22/2009 10:20 EST 06/22/2009 10:20 EST Reason for Exam: (ANG-MISC TUBE CHANGE S&I) BILIARY OBSTRUCTION (ANG-INJ CHOLANGIO EXIST CATH) BILIARY OBSTRUCTION (ANG-CHOLANGIO T-TUBE S&I) BILIARY OBSTRUCTION (ANG-BILIARY CATH CHANGE) BILIARY OBSTRUCTION Report Procedures: 1) CHOLANGIOGRAM 2) BILIARY CATHETER EXCHANGE Performed on June 22, 2009 Indications: Biliary obstruction, history of biliary atresia, statuspost biliary drainage placement. Comparison: 06/16/2009 Operators: Attending: Dr. Nielsen (present for the entire procedure) Procedure and Findings: The procedure was performed in the VIR suite following informedconsent. The patient received preprocedure IV antibiotics. The patient [id number] minutes of IV moderate sedation under the supervision of theradiologist. 1% lidocaine local anesthesia was used. With the patient in a supine position, the upper abdomen and existing biliary drainage catheter were prepped and draped in the usual sterile fashion. Contrast was injected through the existing 14 biliary drainage catheterin a biliary duct within the left hepatic lobe and a cholangiogram was performed. The catheter was in an appropriate position. There wasprompt drainage Of contrast into the small bowel without evidence of biliary stricture. A 0.035 inch guidewire was passed through the existing biliary catheter using fluoroscopic guidance. The catheter was withdrawn and a 5 -Fangled glide catheter was placed over the guidewire. The glide catheter was exchanged over the guidewire for a 16 Chilean dilator. A new 16 [place]an Bentec internal / external, biliary drainage catheter was then placed over the wire. An inner 8 Chilean biliarycatheter was used to provide rigidity to the Bentec biliary drainage catheterduring placement over the wire. This inner 8 [place]an catheter was subsequently removed following proper placement of the Bentec biliary drainagecatheter. By fluoroscopy, the biliary catheter was positioned with the upper side holes along the peripheral intrahepatic ducts and the distal catheter positioned in the small bowel. The biliary catheter was secured with suture and dressed in the usual fashion. The catheter was capped to internal drainage. There were no immediate complications. IMPRESSION: 1. Successful exchange and upsizing of the internal / external, biliary drainage catheter. The patient currently has a 16 [place]an Bentec internal/ external, biliary drainage catheter in a left intrahepatic biliaryduct. VERIFIED REPORT Dictated: 06/23/2009 5:46 pm PILO PIÑA M.D. Signed (Electronic Signature): MORALES Martinez CHRISTOPHER N006/26/09 5:31 Resident: PILO PIÑA M.D. Technologist: JULY us Fredy Schuster MD IMG IR ORDERABLES Final Result * IR Biliary cath change (06/22/2009 10:20 AM EST) Anatomical Region Laterality Modality Abdomen X-Ray Angiograph y 06/22/2009 10:2 0 AM EST Narrative 06/23/2009 5:45 PM EST ? [facility] Patient: [place] CHILDRESS : ? 1980 Accn#: ?? [id number] ?Interventional Radiology Exam Date/Time 06/22/2009 10:20 EST 06/22/2009 10:20 EST 06/22/2009 10:20 EST 06/22/2009 10:20 EST Reason for Exam: (ANG-MISC TUBE CHANGE S&I) ??BILIARY OBSTRUCTION (ANG-INJ CHOLANGIO EXIST CATH) ??BILIARY OBSTRUCTION (ANG-CHOLANGIO T-TUBE S&I) ??BILIARY OBSTRUCTION (ANG-BILIARY CATH CHANGE) ??BILIARY OBSTRUCTION Report Procedures: 1) CHOLANGIOGRAM 2) BILIARY CATHETER EXCHANGE Performed on June 22, 2009 Indications: Biliary obstruction, history of biliary atresia, status post biliary drainage placement. Comparison: 06/16/2009 Operators: Attending: Dr. Nielsen (present for the entire procedure) Procedure and Findings: The procedure was performed in the VIR suite following informed consent. The patient received preprocedure IV antibiotics. ??The patient received 35 minutes of IV moderate sedation under the supervision of the radiologist. 1% lidocaine local anesthesia was used. ??With the patient in a supine position, the upper abdomen and existing biliary drainage catheter were prepped and draped in the usual sterile fashion. Contrast was injected through the existing 14 biliary drainage catheter in a biliary duct within the left hepatic lobe and a cholangiogram was performed. ??The catheter was in an appropriate position. ??There was prompt drainage Of contrast into the small bowel without evidence of biliary stricture. A 0.035 inch guidewire was passed through the existing biliary catheter using fluoroscopic guidance. ??The catheter was withdrawn and a 5 -F angled glide catheter was placed over the guidewire. The glide catheter was exchanged over the guidewire for a 16 Chilean dilator. A new 16 [place]an Bentec internal / external, biliary drainage catheter was then placed over the wire. ??An inner 8 Chilean biliary catheter was used to provide rigidity to the Bentec biliary drainage catheter during placement over the wire. This inner 8 [place]an catheter was subsequently removed following proper placement of the Bentec biliary drainage catheter. By fluoroscopy, the biliary catheter was positioned with the upper side holes along the peripheral intrahepatic ducts and the distal catheter positioned in the small bowel. The biliary catheter was secured with suture and dressed in the usual fashion. ??The catheter was capped to internal drainage. There were no immediate complications. IMPRESSION: 1. Successful exchange and upsizing of the internal / external, biliary drainage catheter. ??The patient currently has a 16 [place]an Bentec internal / external, biliary drainage catheter in a left intrahepatic biliary duct. VERIFIED REPORT Dictated: 06/23/2009 5:46 pm ?PILO PIÑA M.D. Signed (Electronic Signature): ??CHRISTOPHER NIELSEN M.D. ? 06/26/09 5:31 Resident: ??PILO PIÑA M.D. Technologist: TAS Procedure Note Christopher Nielsen MD - 10/25/2011 [facility] Patient: [place] CHILDRESS : 1980 [id number] Interventional Radiology Exam Date/Time 06/22/2009 10:20 EST 06/22/2009 10:20 EST 06/22/2009 10:20 EST 06/22/2009 10:20 EST Reason for Exam: (ANG-MISC TUBE CHANGE S&I) BILIARY OBSTRUCTION (ANG-INJ CHOLANGIO EXIST CATH) BILIARY OBSTRUCTION (ANG-CHOLANGIO T-TUBE S&I) BILIARY OBSTRUCTION (ANG-BILIARY CATH CHANGE) BILIARY OBSTRUCTION Report Procedures: 1) CHOLANGIOGRAM 2) BILIARY CATHETER EXCHANGE Performed on June 22, 2009 Indications: Biliary obstruction, history of biliary atresia, statuspost biliary drainage placement. Comparison: 06/16/2009 Operators: Attending: Dr. Nielsen (present for the entire procedure) Procedure and Findings: The procedure was performed in the VIR suite following informedconsent. The patient received preprocedure IV antibiotics. The patient [id number] minutes of IV moderate sedation under the supervision of theradiologist. 1% lidocaine local anesthesia was used. With the patient in a supine position, the upper abdomen and existing biliary drainage catheter were prepped and draped in the usual sterile fashion. Contrast was injected through the existing 14 biliary drainage catheterin a biliary duct within the left hepatic lobe and a cholangiogram was performed. The catheter was in an appropriate position. There wasprompt drainage Of contrast into the small bowel without evidence of biliary stricture. A 0.035 inch guidewire was passed through the existing biliary catheter using fluoroscopic guidance. The catheter was withdrawn and a 5 -Fangled glide catheter was placed over the guidewire. The glide catheter was exchanged over the guidewire for a 16 [place]an dilator. A new 16 [place]an Bentec internal / external, biliary drainage catheter was then placed over the wire. An inner 8 Chilean biliarycatheter was used to provide rigidity to the Bentec biliary drainage catheterduring placement over the wire. This inner 8 Chilean catheter was subsequently removed following proper placement of the Bentec biliary drainagecatheter. By fluoroscopy, the biliary catheter was positioned with the upper side holes along the peripheral intrahepatic ducts and the distal catheter positioned in the small bowel. The biliary catheter was secured with suture and dressed in the usual fashion. The catheter was capped to internal drainage. There were no immediate complications. IMPRESSION: 1. Successful exchange and upsizing of the internal / external, biliary drainage catheter. The patient currently has a 16 [place]an Bentec internal/ external, biliary drainage catheter in a left intrahepatic biliaryduct. VERIFIED REPORT Dictated: 06/23/2009 5:46 pm PILO PIÑA M.D. Signed (Electronic Signature): CHRISTOPHER NIELSEN M.D. N03 5:31 Resident: PILO PIÑA M.D. Technologist: JULY us Fredy Schuster MD IMG IR ORDERABLES Final Result documented in this encounter Visit Diagnoses Not on filedocumented in this encounter Care Teams Certified Orthotist Practice Manager Relationship Specialty Start Date End Date Camila Jasso MD [address] [place] [address] PCP - General 12/03/06 10/08/16 documented as of this encounter
[2024-03-14 18:28] LABS: MANUAL DIFFERENTIAL MANUAL DIFFERENTIAL (MANUAL DIFF)
[2024-03-14 18:30] LABS: Albumin Level 4.8 g/dl (3.5-5.0); Chloride 107 mmol/L (98-107)
[2024-03-14 18:31] LABS: Potassium 3.2 mmoL/L (3.5-5.1); Sodium 144 mmol/L (136-145)
[2024-03-14 18:33] LABS: Alanine Aminotransferase 27 U/L (12-78); Albumin/Globulin Ratio 1.4 (1.1-1.8); Alkaline Phosphatase 79 U/L (38-126); Anion Gap 16.2 mEq/L (5-15); Aspartate Amino Transferase 29 U/L (14-36); Bilirubin,Total 0.6 mg/dl (0.2-1.3); Blood Urea Nitrogen 12 mg/dl (7-17); Carbon Dioxide 24 mmol/L (22.0-30.0); Creatinine Clearance Estimated 98 mL/min (50-200); Estimated Glomerular Filt Rate 79 ml/min (>60); GFR (African American) 95 ML/MIN (>60); Globulin 3.4 g/dL (1.3-3.2); HCG Qualitative, Serum Negative (Negative); Total Protein,Serum 8.2 g/dl (6.3-8.2)
[2024-03-14 18:34] LABS: Calcium 9.5 mg/dl (8.4-10.2); Glucose 118 mg/dl (74-100)
[2024-03-14 18:47] LABS: Lactic Acid 2.7 mmol/L (0.7-2.1); Troponin I < 0.01 ng/ml (0.00-0.034)
[2024-03-14 18:50] LABS: Eosinophils % 4 % (0-3); Lymphocytes % 21 % (10-50); Monocytes % 6 % (2-9); Neutrophils % 69 % (42-76); Platelet Estimate Normal; RBC Morphology Normal; Total Cells Counted 100
[2024-03-14] MEDS: SODIUM CHLORIDE 0.9% 10ML SYR (RAD ONLY) 10 ML IV (19:05)
[2024-03-14] MEDS: IOPAMIDOL-370 (76%);100ML BOTTLE 75 ML IV (19:05)
[2024-03-14] MEDS: AMPICILLIN/SULBACTAM 3 GM in 0.9 % SODIUM CHLORIDE 100 ML IV (19:36)
[2024-03-14] MEDS: 0.9 % SODIUM CHLORIDE 1000ML 1,000 ML 999 ML IV (19:37)
[2024-03-14 19:57] LABS: Lipase 58925 U/L (23-300)
[2024-03-14] MEDS: PROMETHAZINE HCL 25MG/ML 1ML VIAL 12.5 MG IV (20:45)
[2024-03-14] MEDS: SODIUM CHLORIDE 0.9% 25ML BAG 25 ML IV (20:46)
--- NOTE | 2024-03-14 21:47 | PC.NURSE ---
attempted to call report twice, was informed the nurses were dealing with a combative patient and couldnt accept report at this time.
--- NOTE | 2024-03-14 21:51 | PC.NURSE ---
pt arrived to floor via stretcher @21:50
--- NOTE | 2024-03-14 21:58 | P.HP_ITS ---
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 Ms. Childress is accompanied by her family who is at bedside. Reports that she ate dinner this evening and developed significant severe epigastric pain. Patient reports that she has had pancreatitis in the past. Reports it feels like her prior bouts of pancreatitis reporting epigastric pain rated at a 5/10 currently. Multiple episodes of nonbloody biliary nonbloody emesis. Still has her appendix and her gallbladder. Denies any fever. Denies any alcohol intake. No cough, chest pain, shortness of breath noted. No unilateral weakness, numbness, tingling. Does not take any blood thinners. Denies tobacco use, alcohol use, illicit drug use. Lab work in the ER showed elevated white count of 21,000, platelets slightly elevated at 450. Potassium a bit low at 3.2, lactic acid elevated at 2.7. Lipase elevated 33977. Patient was given 1 L IV fluid bolus in the ER and pain medication as well as antiemetics. CT of the abdomen pelvis remarkable for pneumobilia as well as pancreatitis. She will be admitted to the hospitalist service for acute pancreatitis. [facility] Disclaimer: The information contained in this section may have been updated after the patient was seen, as this information can be updated by other users. Medical History (Updated 03/15/24 @ 08:51 by Abdifatah Patel MD) Biliary atresia Surgical History History of cholecystectomy Social History Smoking Status: Never smoker alcohol intake: never current occupational status: employed Travel in the last 8 weeks: None Review of Systems Review of Systems Review of systems (narrative): 14 point review of systems performed, pertinent positives and negatives as per HPI Constitutional Constitutional: Reports system reviewed and no additional complaints, except as documented Eyes Eyes: Reports system reviewed and no additional complaints, except as documented ENT Ears, Nose, Mouth, and Throat: Reports system reviewed and no additional complaints, except as documented *Cardiovascular Cardiovascular: Reports system reviewed and no additional complaints, except as documented *Respiratory Respiratory: Reports system reviewed and no additional complaints, except as documented *Gastrointestinal Gastrointestinal: Reports abdominal pain (Epigastric pain), Reports nausea and Reports vomiting *Genitourinary Genitourinary: Reports system reviewed and no additional complaints, except as documented *Musculoskeletal Musculoskeletal: Reports system reviewed and no additional complaints, except as documented *Neurologic Neurologic: Reports system reviewed and no additional complaints, except as documented Meds Home Medications and Allergies Home Medications ?Medication ?Instructions ?Recorded ?Confirmed ?Type amlodipine 2.5 mg tablet 2.5 mg PO DAILY 03/14/24 03/15/24 History ergocalciferol (vitamin D2) 1,250 1,250 mcg PO WEEKLY 03/14/24 03/15/24 History mcg (50,000 unit) capsule metoprolol succinate 25 mg 25 mg PO DAILY 03/14/24 03/15/24 History tablet,extended release 24 hr medroxyprogesterone 150 mg/mL 150 mg IM Q90D 03/15/24 03/15/24 History intramuscular syringe New Prescriptions to Start Prescriptions: Allergies Allergy/AdvReac Type Severity Reaction Status Date / Time acetaminophen (From Vicodin) Allergy Rash Verified 03/14/24 18:16 hydrocodone (From Vicodin) Allergy Rash Verified 03/14/24 18:16 morphine Allergy Rash Verified 03/14/24 18:16 Exam Data for Last 24 hours Vital signs and Labs for Last 24 Hours: Temp Pulse Resp BP Pulse Ox O2 Del Method 97.8 F 73 21 141/74 H 100 Room Air 03/14/24 21:46 03/14/24 21:46 03/14/24 21:46 03/14/24 21:46 03/14/24 21:45 03/14/24 21:46 Laboratory Results - last 24 hr 03/14/24 18:15: WBC 21.4 H*, RBC 5.37, Hgb 15.5, Hct 45.8, MCV 85.3, MCH 28.8, MCHC 33.8, RDW 13.5, Plt Count 450 H, MPV 7.0 L, Neut % (Auto) 72.4, Lymph % (Auto) 18.5, Coffey % (Auto) 5.6, Eos % (Auto) 2.7, Baso % (Auto) 0.8, Neut # (Auto) 15.5 H, Lymph # (Auto) 4.0, Coffey # (Auto) 1.2 H, Eos # (Auto) 0.6 H, Baso # (Auto) 0.2, Total Counted 100, Neutrophils % (Manual) 69, Lymphocytes % (Manual) 21, Monocytes % (Manual) 6, Eosinophils % (Manual) 4 H, Platelet Estimate Normal, RBC Morphology Normal, Sodium 144, Potassium 3.2 L, Chloride 107, Carbon Dioxide 24, Anion Gap 16.2 H, BUN 12, Creatinine 0.80, Estimated Creat Clear 98, Estimated GFR 79, Est GFR ( Amer) 95, Glucose 118 H, Lactate 2.7 H, Calcium 9.5, Total Bilirubin 0.6, AST 29, ALT 27, Alkaline Phosphatase 79, Troponin I < 0.01, Total Protein 8.2, Albumin 4.8, Globulin 3.4 H, Albumin/Globulin Ratio 1.4, Lipase 80376 H, Serum HCG, Qual Negative I & O for Last 24 hours: Intake & Output 03/11/24 03/12/24 03/13/24 03/14/24 23:59 23:59 23:59 23:59 Weight 68.039 kg *Routine HEENT Exam Head: Present normocephalic Eye: Present EOMI and PERRL ENT: Present mucous membranes moist *Routine Neck Exam Neck: Present supple and full ROM *Routine Respiratory Exam Respiratory: Present CTA bilaterally *Routine Cardiovascular Exam Cardiovascular: Present RRR, Normal S1 and Normal S2 *Routine Abdominal Exam Abdominal: Present soft, normoactive bowel sounds and tenderness Comments: Epigastric pain, tender to palpation, no rebound, no peritonitic signs *Routine Rectal Exam Rectal:: deferred *Routine Genitalia Exam Genitalia:: deferred *Routine Extremities Exam Extremities: Present normal capillary refill *Routine Skin Exam Skin: Present intact *Routine Neurological Exam Neurological: Present alert and oriented X3 Assessment and Plan *Assessment and plan (1) Pneumobilia: Status: Acute Category: Medical Code(s): K83.8 - Other specified diseases of biliary tract (2) Pancreatitis: Status: Acute Category: Medical Code(s): K85.90 - Acute pancreatitis without necrosis or infection, unspecified (3) HTN (hypertension): Status: Acute Category: Medical Code(s): I10 - Essential (primary) hypertension (4) 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 On my exam, patient has lying in bed in no acute distress. Reports her abdominal pain is improved, rated at a 4/10 currently. Still reporting nausea. Plan: Admit to inpatient-MedSurg Pancreatitis Pneumobilia History of biliary atresia -N.p.o. -Will give another 1 L IV fluid bolus and then start maintenance IV fluids -Antiemetics as needed -Pain management as needed -Lipase severely elevated at 59,000, repeat lipase in the morning -Consult GI in the morning - White count elevated to 21,000, likely reactive. -Per my review of CT abdomen pelvis, patient has some stranding around the pancreas. Also found to have pneumobilia. Hypokalemia -Will get a 20 mEq K rider -Recheck potassium in the morning HTN -Resume home medications where appropriate DVT prophylaxis: SCDs CODE STATUS: Full code Surrogate decision maker: Nilda [phone] Skin: Low risk Estimated length of stay: Greater than 2 midnights Rounded on patient after nurse practitioner. Personally examined and interviewed patient. Agree with exam findings and care plan as documented. Patient reports biliary atresia as an infant. Had her gallbladder removed as an . Had an episode of pancreatitis 20 years ago. This is her second such episode. Does not drink alcohol. No GLP-1 usage. Only on blood pressure meds. Pain significant. Seeing a trend and improvement of her lipase overnight. Requiring significant IV fluids. GI consulted. Right upper quadrant ordered and pending.
[2024-03-14] MEDS: LACTATED RINGERS 1000ML 1,000 ML 999 ML IV (22:02)
[2024-03-14] MEDS: PROCHLORPERAZINE 10MG/2ML VIAL 5 MG IV (22:02)
[2024-03-14] MEDS: HYDROMORPHONE 2MG/ML SYRINGE 0.5 MG IV (22:03)
[2024-03-14 22:30] LABS: Reflex Lactic Add Lactic Reflex
[2024-03-14 22:43] LABS: Chol/HDL Ratio 2.9 (1-3.5); Cholesterol 173 mg/dl (140-200); HDL Cholesterol 60 mg/dl (40-60); Triglycerides 65 mg/dl (30-150); VLDL Cholesterol 13 mg/dL (0-40)
[2024-03-14 22:46] LABS: Lactic Acid 3.1 mmol/L (0.7-2.1)
[2024-03-14 22:54] LABS: Direct LDL Cholesterol 88.66 mg/dL (100-129); Lipase 10337 U/L (23-300)
[2024-03-14] MEDS: KCl 20mEq/100ml 100 ML 50 MEQ IV (22:56)
[2024-03-14] MEDS: LACTATED RINGERS 1000ML 1,000 ML 200 ML IV (22:57)
--- NOTE | 2024-03-14 23:36 | PC.NURSE ---
Took over care from Any Valencia at 2230. Agree with her assessment
[2024-03-15] VITALS (7 sets, daily range): BP systolic 136–157; BP diastolic 68–90; PULSE 59–82; RESP 16–21; TEMP 36.4–36.9; O2SAT 96–100; BMI 27.1
[2024-03-15] MEDS: KETOROLAC 30MG/ML VIAL 30 MG IV
[2024-03-15] MEDS: PROMETHAZINE HCL 25MG/ML 1ML VIAL 12.5 MG IV (02:08)
[2024-03-15] MEDS: SODIUM CHLORIDE 0.9% 25ML BAG 25 ML IV (02:09)
[2024-03-15] MEDS: HYDROMORPHONE 2MG/ML SYRINGE 0.5 MG IV ×7 (02:13→21:45)
[2024-03-15] MEDS: LACTATED RINGERS 1000ML 1,000 ML 200 ML IV (03:21)
--- NOTE | 2024-03-15 04:58 | PC.NURSE ---
Patient complained on increased abdominal pain. RN went into the room to find the patient in a position crying out in pain. RN listened to bowel sounds and none were noted. RN verified this with 2 nurses on the floor. Patient is unsure when the last time she passed gas. RN called provider to the bedside to assess as well. Provider did listen to bowel sounds. Provider stated that it was okay to give pain medication at this time. She would put in some more lab work for this morning.
[2024-03-15 06:15] LABS: Basophils % 0.1 % (0.1-2.0); Eosinophils # 0.1 K/mm3 (0.0-0.4); Eosinophils % 0.2 % (0.1-12.0); Hematocrit 41.9 % (37.0-47.0); Hemoglobin 14.2 g/dL (12.2-16.2); Lymphocytes # 0.5 K/mm3 (0.7-4.5); Lymphocytes % 2.6 % (10-50); Mean Corpuscular HGB Conc 33.8 g/dL (31.8-35.4); Mean Corpuscular Hemoglobin 29.2 pg (27.0-31.2); Mean Corpuscular Volume 86.3 fl (81-99); Mean Platelet Volume 7.2 fl (7.4-10.4); Monocytes # 0.6 K/mm3 (0.1-1.0); Monocytes % 3.2 % (1.7-9.3); Neutrophils # 17.8 K/mm3 (1.8-7.8); Neutrophils % 93.8 % (37.0-80.0); Platelet Count 316 K/mm3 (142-424); Red Blood Count 4.86 M/mm3 (4.20-5.40); Red Cell Distribution Width 13.4 % (11.5-17.5)
[2024-03-15 06:22] LABS: MANUAL DIFFERENTIAL MANUAL DIFFERENTIAL (MANUAL DIFF)
[2024-03-15 06:45] LABS: Alanine Aminotransferase 25 U/L (12-78); Albumin Level 3.4 g/dl (3.5-5.0); Albumin/Globulin Ratio 1.4 (1.1-1.8); Alkaline Phosphatase 73 U/L (38-126); Anion Gap 11.7 mEq/L (5-15); Aspartate Amino Transferase 31 U/L (14-36); Bilirubin,Total 0.7 mg/dl (0.2-1.3); Blood Urea Nitrogen 7 mg/dl (7-17); Calcium 8.2 mg/dl (8.4-10.2); Carbon Dioxide 21 mmol/L (22.0-30.0); Chloride 108 mmol/L (98-107); Creatinine Clearance Estimated 171 mL/min (50-200); Estimated Glomerular Filt Rate 135 ml/min (>60); GFR (African American) 164 ML/MIN (>60); Globulin 2.4 g/dL (1.3-3.2); Glucose 177 mg/dl (74-100); Lactate Dehydrogenase 177 U/L (313-618); Magnesium 1.8 mg/dl (1.6-2.3); Potassium 3.7 mmoL/L (3.5-5.1); Sodium 137 mmol/L (136-145); Total Protein,Serum 5.8 g/dl (6.3-8.2)
[2024-03-15 07:08] LABS: Microscopic, Urine URINE MICROSCOPIC (MICROSCOPIC)
[2024-03-15 07:14] LABS: Lipase 4887 U/L (23-300)
[2024-03-15] MEDS: PROCHLORPERAZINE 10MG/2ML VIAL 5 MG IV ×4 (07:27→21:45)
[2024-03-15 07:28] LABS: Appearance,Urine CLEAR (Clear); Bilirubin,Urine Negative (Negative); Blood, Urine 1+ (Negative); Color,Urine YELLOW (Yellow); Glucose,Urine (UA) 1+ (Negative); Ketones,Urine TRACE (Negative); Leukocyte Esterase,Urine Negative (Negative); Nitrate,Urine Negative (Negative); Protein,Urine Negative (Negative); Specific Gravity, Urine 1.025 (1.005-1.030)
--- NOTE | 2024-03-15 07:32 | P.CONS_ITS ---
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 Ms. Childress is accompanied by her family who is at bedside. Reports that she ate dinner this evening and developed significant severe epigastric pain. Patient reports that she has had pancreatitis in the past. Reports it feels like her prior bouts of pancreatitis reporting epigastric pain rated at a 5/10 currently. Multiple episodes of nonbloody biliary nonbloody emesis. Still has her appendix and her gallbladder. Denies any fever. Denies any alcohol intake. No cough, chest pain, shortness of breath noted. No unilateral weakness, numbness, tingling. Does not take any blood thinners. Denies tobacco use, alcohol use, illicit drug use. Lab work in the ER showed elevated white count of 21,000, platelets slightly elevated at 450. Potassium a bit low at 3.2, lactic acid elevated at 2.7. Lipase elevated 98990. Patient was given 1 L IV fluid bolus in the ER and pain medication as well as antiemetics. CT of the abdomen pelvis remarkable for pneumobilia as well as pancreatitis. She will be admitted to the hospitalist service for acute pancreatitis. Former history of biliary atresia with surgical repair. The patient presents with acute pancreatitis and lipase of 58,925. Last bout of pancreatitis was more than 20 years ago. 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 The patient is not yet pain controlled and has pain this morning with nausea and vomiting. She reports no use of alcohol, tobacco or pain medication at home. Her symptoms began yesterday. [facility] Disclaimer: The information contained in this section may have been updated after the patient was seen, as this information can be updated by other users. Medical History (Updated 03/15/24 @ 15:44 by Edwin Garcia II, MD) Biliary atresia Surgical History History of cholecystectomy Social History Smoking Status: Never smoker alcohol intake: never current occupational status: employed Travel in the last 8 weeks: None Review of Systems *Neurologic Neurologic: Reports system reviewed and no additional complaints, except as documented Meds Home Medications and Allergies Home Medications ?Medication ?Instructions ?Recorded ?Confirmed ?Type amlodipine 2.5 mg tablet 2.5 mg PO DAILY 03/14/24 03/15/24 History ergocalciferol (vitamin D2) 1,250 1,250 mcg PO WEEKLY 03/14/24 03/15/24 History mcg (50,000 unit) capsule metoprolol succinate 25 mg 25 mg PO DAILY 03/14/24 03/15/24 History tablet,extended release 24 hr medroxyprogesterone 150 mg/mL 150 mg IM Q90D 03/15/24 03/15/24 History intramuscular syringe New Prescriptions to Start Prescriptions: Allergies Allergy/AdvReac Type Severity Reaction Status Date / Time acetaminophen (From Vicodin) Allergy Rash Verified 03/14/24 18:16 hydrocodone (From Vicodin) Allergy Rash Verified 03/14/24 18:16 morphine Allergy Rash Verified 03/14/24 18:16 Exam (Inpt) Vital signs and Labs for Last 24 Hours: Temp Pulse Resp BP Pulse Ox O2 Del Method 97.6 F 61 18 138/75 97 Room Air 03/15/24 04:00 03/15/24 04:00 03/15/24 04:00 03/15/24 04:00 03/15/24 04:00 03/15/24 06:50 Laboratory Results - last 24 hr 03/14/24 18:15: WBC 21.4 H*, RBC 5.37, Hgb 15.5, Hct 45.8, MCV 85.3, MCH 28.8, MCHC 33.8, RDW 13.5, Plt Count 450 H, MPV 7.0 L, Neut % (Auto) 72.4, Lymph % (Auto) 18.5, Lyman % (Auto) 5.6, Eos % (Auto) 2.7, Baso % (Auto) 0.8, Neut # (Auto) 15.5 H, Lymph # (Auto) 4.0, Lyman # (Auto) 1.2 H, Eos # (Auto) 0.6 H, Baso # (Auto) 0.2, Total Counted 100, Neutrophils % (Manual) 69, Lymphocytes % (Manual) 21, Monocytes % (Manual) 6, Eosinophils % (Manual) 4 H, Platelet Estimate Normal, RBC Morphology Normal, Sodium 144, Potassium 3.2 L, Chloride 107, Carbon Dioxide 24, Anion Gap 16.2 H, BUN 12, Creatinine 0.80, Estimated Creat Clear 98, Estimated GFR 79, Est GFR ( Amer) 95, Glucose 118 H, L actate 2.7 H, Calcium 9.5, Total Bilirubin 0.6, AST 29, ALT 27, Alkaline Phosphatase 79, Troponin I < 0.01, Total Protein 8.2, Albumin 4.8, Globulin 3.4 H, Albumin/Globulin Ratio 1.4, Lipase 12979 H, Serum HCG, Qual Negative 03/14/24 22:25: Lactate 3.1 H, Triglycerides 65, Cholesterol 173, LDL Cholesterol Direct 88.66 L, VLDL Cholesterol 13, HDL Cholesterol 60, Cholesterol/HDL Ratio 2.9, Lipase 51324 H 03/15/24 05:42: WBC 19.0 H, RBC 4.86, Hgb 14.2, Hct 41.9, MCV 86.3, MCH 29.2, MCHC 33.8, RDW 13.4, Plt Count 316 D, MPV 7.2 L, Neut % (Auto) 93.8 H, Lymph % (Auto) 2.6 L, Lyman % (Auto) 3.2, Eos % (Auto) 0.2, Baso % (Auto) 0.1, Neut # (Auto) 17.8 H, Lymph # (Auto) 0.5 L, Lyman # (Auto) 0.6, Eos # (Auto) 0.1, Baso # (Auto) 0.0, Sodium 137, Potassium 3.7, Chloride 108 H, Carbon Dioxide 21 L, Anion Gap 11.7, BUN 7 D, Creatinine 0.50 L D, Estimated Creat Clear 171, Estimated GFR 135, Est GFR ( Amer) 164 D, Glucose 177 H D, Calcium 8.2 L , Phosphorus 3.0, Magnesium 1.8, Total Bilirubin 0.7, AST 31, ALT 25, Alkaline Phosphatase 73, Lactate Dehydrogenase 177 L, Total Protein 5.8 L D, Albumin 3.4 L D, Globulin 2.4, Albumin/Globulin Ratio 1.4, Lipase 4887 H I & O for Labs for Last 24 Hours: Intake & Output 03/12/24 03/13/24 03/14/2425/24 23:59 23:59 23:59 23:59 Output Total 0 / 0 Balance 0 / 0 Weight 158 lb 9.6 oz 163 lb 1.6 oz GI: Present tenderness and guarding Comments:: Mildly hypoactive bowel sounds with tenderness over the abdomen without rebound Results Labs 03/15/24 05:42 03/15/24 05:42 Labs: Laboratory Results - last 24 hr 03/14/24 18:15: WBC 21.4 H*, RBC 5.37, Hgb 15.5, Hct 45.8, MCV 85.3, MCH 28.8, MCHC 33.8, RDW 13.5, Plt Count 450 H, MPV 7.0 L, Neut % (Auto) 72.4, Lymph % (Auto) 18.5, Lyman % (Auto) 5.6, Eos % (Auto) 2.7, Baso % (Auto) 0.8, Neut # (Auto) 15.5 H, Lymph # (Auto) 4.0, Lyman # (Auto) 1.2 H, Eos # (Auto) 0.6 H, Baso # (Auto) 0.2, Total Counted 100, Neutrophils % (Manual) 69, Lymphocytes % (Manual) 21, Monocytes % (Manual) 6, Eosinophils % (Manual) 4 H, Platelet Estimate Normal, RBC Morphology Normal, Sodium 144, Potassium 3.2 L, Chloride 107, Carbon Dioxide 24, Anion Gap 16.2 H, BUN 12, Creatinine 0.80, Estimated Creat Clear 98, Estimated GFR 79, Est GFR ( Amer) 95, Glucose 118 H, L actate 2.7 H, Calcium 9.5, Total Bilirubin 0.6, AST 29, ALT 27, Alkaline Phosphatase 79, Troponin I < 0.01, Total Protein 8.2, Albumin 4.8, Globulin 3.4 H, Albumin/Globulin Ratio 1.4, Lipase 26935 H, Serum HCG, Qual Negative 03/14/24 22:25: Lactate 3.1 H, Triglycerides 65, Cholesterol 173, LDL Cholesterol Direct 88.66 L, VLDL Cholesterol 13, HDL Cholesterol 60, Cholesterol/HDL Ratio 2.9, Lipase 89928 H 03/15/24 05:42: WBC 19.0 H, RBC 4.86, Hgb 14.2, Hct 41.9, MCV 86.3, MCH 29.2, MCHC 33.8, RDW 13.4, Plt Count 316 D, MPV 7.2 L, Neut % (Auto) 93.8 H, Lymph % (Auto) 2.6 L, Lyman % (Auto) 3.2, Eos % (Auto) 0.2, Baso % (Auto) 0.1, Neut # (Auto) 17.8 H, Lymph # (Auto) 0.5 L, Lyman # (Auto) 0.6, Eos # (Auto) 0.1, Baso # (Auto) 0.0, Sodium 137, Potassium 3.7, Chloride 108 H, Carbon Dioxide 21 L, Anion Gap 11.7, BUN 7 D, Creatinine 0.50 L D, Estimated Creat Clear 171, Estimated GFR 135, Est GFR ( Amer) 164 D, Glucose 177 H D, Calcium 8.2 L , Phosphorus 3.0, Magnesium 1.8, Total Bilirubin 0.7, AST 31, ALT 25, Alkaline Phosphatase 73, Lactate Dehydrogenase 177 L, Total Protein 5.8 L D, Albumin 3.4 L D, Globulin 2.4, Albumin/Globulin Ratio 1.4, Lipase 4887 H Assessment and Plan *Assessment and plan (1) Acute pancreatitis: Status: Acute Category: Medical Code(s): K85.90 - Acute pancreatitis without necrosis or infection, unspecified (2) Pneumobilia: Status: Acute Category: Medical Code(s): K83.8 - Other specified diseases of biliary tract (3) Biliary atresia: Problem Comment: surgery 2010 Status: Chronic Category: Medical Code(s): Q44.2 - Atresia of bile ducts Plan 1. Acute pancreatitis. The patient has had prior pancreatitis more than 20 years ago. The patient did have biliary atresia surgery with probable choledochojejunostomy or choledochoduodenostomy and I do not have her prior surgical reports. This may make it very difficult especially if choledochojejunostomy with Burton limb for ERCP. I would recommend that she have MRCP for further evaluation. I would also consider EGD when patient more stabilized to delineate anatomy to see if there is ability for access endoscopically for ERCP. There is no evidence of necrosis on early imaging. I would continue pain control. Presently, if NPO more than 24 hours, would consider early enteral feeding. The time to reinitiate oral feedings depends on the severity of pancreatitis. In the absence of ileus, nausea or vomiting, oral feeding can and should be initiated early (within 24 hours) as tolerated. This is certainly if the pain is decreasing and inflammatory markers are improved (declining white blood cell count). We should start with low residue, low-fat, soft diet and then advance the diet cautiously as tolerated. Traditionally patients have been advanced from a clear liquid diet to solid food. Early refeeding with a solid low-fat diet is safe. In patients with moderate to severe pancreatitis, oral feeding may not be tolerated due to postprandial pain, nausea or vomiting and these patient should receive enteral feeding early as well. Early refeeding (less than or equal to 48 hours after hospitalization) as compared with delayed refeeding did not increase any adverse effects or exacerbate symptoms and more importantly was associated with a reduction in length of hospital stay.
--- NOTE | 2024-03-15 07:37 | HMH.PHAINT1 ---
Pharmacy Intervention Comments: HOME MEDICATIONS VERIFIED VIA OUTPATIENT PHARMACY
[2024-03-15 07:45] LABS: WBC,Urine Occasional #/hpf (0-3)
--- NOTE | 2024-03-15 07:53 | EXP.ACUTE.PN ---
Subjective *Date: 03/15/24 *Time: 17:34 Interval history: Still having pain this morning. Stable on room air. No nausea or vomiting. Tolerating pain regimen with fair control. GI to see her today. Lipase improving. History of biliary atresia. No fevers overnight. Medical Exam Vital signs and Labs for Last 24 Hours: Vital Signs Temp Pulse Pulse Resp BP BP Pulse Ox 03/15/24 06:50 03/15/24 05:00 03/15/24 04:00 97.6 F 61 18 138/75 97 03/15/24 03:00 03/15/24 01:00 03/15/24 00:00 97.9 F 82 16 138/74 100 03/14/24 23:00 03/14/24 22:00 03/14/24 22:00 98.2 F 75 21 140/75 100 03/14/24 21:46 97.8 F 73 21 141/74 H 03/14/24 21:45 75 22 141/74 H 100 03/14/24 21:30 70 21 134/76 100 03/14/24 21:00 78 24 130/85 98 03/14/24 20:30 82 16 133/78 99 03/14/24 20:00 81 17 129/76 98 03/14/24 18:30 65 16 131/90 98 03/14/24 18:05 78 165/95 H 99 03/14/24 18:00 98.5 F 69 22 165/95 H 99 O2 Del Method 03/15/24 06:50 Room Air 03/15/24 05:00 Room Air 03/15/24 04:00 Room Air 03/15/24 03:00 Room Air 03/15/24 01:00 Room Air 03/15/24 00:00 Room Air 03/14/24 23:00 Room Air 03/14/24 22:00 Room Air 03/14/24 22:00 Room Air 03/14/24 21:46 Room Air 03/14/24 21:45 03/14/24 21:30 03/14/24 21:00 03/14/24 20:30 03/14/24 20:00 03/14/24 18:30 Room Air 03/14/24 18:05 Room Air 03/14/24 18:00 Room Air Intake and Output 03/14/24 03/14/2403/15/24 15:59 23:59 07:59 Output Total 0 / 0 Balance 0 / 0 Output: Output, Urine Amount 0 / 0 Other: Number of Unmeasured Voids 1 Weight 71.94 kg 73.981 kg Patient Weight 03/15/24 23:59 Weight 73.981 kg Laboratory Results - last 24 hr 03/14/24 18:15: WBC 21.4 H*, RBC 5.37, Hgb 15.5, Hct 45.8, MCV 85.3, MCH 28.8, MCHC 33.8, RDW 13.5, Plt Count 450 H, MPV 7.0 L, Neut % (Auto) 72.4, Lymph % (Auto) 18.5, Marshall % (Auto) 5.6, Eos % (Auto) 2.7, Baso % (Auto) 0.8, Neut # (Auto) 15.5 H, Lymph # (Auto) 4.0, Marshall # (Auto) 1.2 H, Eos # (Auto) 0.6 H, Baso # (Auto) 0.2, Total Counted 100, Neutrophils % (Manual) 69, Lymphocytes % (Manual) 21, Monocytes % (Manual) 6, Eosinophils % (Manual) 4 H, Platelet Estimate Normal, RBC Morphology Normal, Sodium 144, Potassium 3.2 L, Chloride 107, Carbon Dioxide 24, Anion Gap 16.2 H, BUN 12, Creatinine 0.80, Estimated Creat Clear 98, Estimated GFR 79, Est GFR ( Amer) 95, Glucose 118 H, Lactate 2.7 H, Calcium 9.5, Total Bilirubin 0.6, AST 29, ALT 27, Alkaline Phosphatase 79, Troponin I < 0.01, Total Protein 8.2, Albumin 4.8, Globulin 3.4 H, Albumin/Globulin Ratio 1.4, Lipase 22897 H, Serum HCG, Qual Negative 03/14/24 22:25: Lactate 3.1 H, Triglycerides 65, Cholesterol 173, LDL Cholesterol Direct 88.66 L, VLDL Cholesterol 13, HDL Cholesterol 60, Cholesterol/HDL Ratio 2.9, Lipase 78035 H 03/15/24 05:42: WBC 19.0 H, RBC 4.86, Hgb 14.2, Hct 41.9, MCV 86.3, MCH 29.2, MCHC 33.8, RDW 13.4, Plt Count 316 D, MPV 7.2 L, Neut % (Auto) 93.8 H, Lymph % (Auto) 2.6 L, Marshall % (Auto) 3.2, Eos % (Auto) 0.2, Baso % (Auto) 0.1, Neut # (Auto) 17.8 H, Lymph # (Auto) 0.5 L, Marshall # (Auto) 0.6, Eos # (Auto) 0.1, Baso # (Auto) 0.0, Sodium 137, Potassium 3.7, Chloride 108 H, Carbon Dioxide 21 L, Anion Gap 11.7, BUN 7 D, Creatinine 0.50 L D, Estimated Creat Clear 171, Estimated GFR 135, Est GFR ( Amer) 164 D, Glucose 177 H D, Calcium 8.2 L, Phosphorus 3.0, Magnesium 1.8, Total Bilirubin 0.7, AST 31, ALT 25, Alkaline Phosphatase 73, Lactate Dehydrogenase 177 L, Total Protein 5.8 L D, Albumin 3.4 L D, Globulin 2.4, Albumin/Globulin Ratio 1.4, Lipase 4887 H 03/15/24 06:25: Urine Color Yellow, Urine Appearance Clear, Urine pH 7.0, Ur Specific [place] 1.025, Urine Protein Negative, Urine Glucose (UA) 1+, Urine Ketones Trace, Urine Blood 1+ A, Urine Nitrate Negative, Urine Bilirubin Negative, Urine Urobilinogen 2.0, Ur Leukocyte Esterase Negative, Urine RBC 5-10, Urine WBC Occasional, Ur Squamous Epith Cells 3-5, Urine Bacteria None I & O for Labs for Last 24 Hours: Intake & Output 03/12/24 03/13/24 03/14/24 03/15/24 23:59 23:59 23:59 23:59 Output Total 0 / 0 Balance 0 / 0 Weight 71.94 kg 73.981 kg Constitutional: Present mild distress, average body habitus and cooperative Head: Present atraumatic and normocephalic ENT: Present normal exam Respiratory: Present normal respiratory effort; Absent rhonchi, wheezes or crackles Cardiac: Present Reg Rate and Rhythm GI: Present soft, tenderness and normal bowel sounds; Absent distention Extremities: Present normal inspection and full ROM Skin: Present intact; Absent erythema Neuro: Present Grossly Intact, alert, awake, oriented x 3 and moves all extremities Assessment and Plan *Assessment and plan (1) Pancreatitis: Status: Acute Qualifiers: Chronicity: acute Pancreatitis type: idiopathic Acute pancreatitis complication: no infection or necrosis Qualified Code(s): K85.00 - Idiopathic acute pancreatitis without necrosis or infection Category: Medical Code(s): K85.90 - Acute pancreatitis without necrosis or infection, unspecified (2) Pneumobilia: Status: Acute Category: Medical Code(s): K83.8 - Other specified diseases of biliary tract (3) HTN (hypertension): Status: Acute Qualifiers: Hypertension type: primary hypertension Qualified Code(s): I10 - Essential (primary) hypertension Category: Medical Code(s): I10 - Essential (primary) hypertension (4) 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 On my exam, patient has lying in bed in no acute distress. Reports her abdominal pain is improved, rated at a 4/10 currently. Continues to require inpatient management, still reporting pain, nausea showing improvement. Problems addressed as follows: Acute pancreatitis Pneumobilia History of biliary atresia - Spoke to GI at length, due to patient's anatomy and previous surgery, may benefit from MRCP when her pancreatitis cools down. Will consider EGD over the next 2 days to evaluate anatomy. Recommend early refeeding. Will initiate clear liquid diet today, okay to advance to low residue/low-fat diet rather quickly if tolerating p.o. intake. Patient unable to tolerate p.o. nutrition, consider NG feeds -Continue LR at 125 cc/h. -LDH low at 177. Calcium 8.2, phosphorus 3.0, kidney function normal with BUN 7, creatinine 0.5. White count elevated at 19, likely reactive. Will hold on antibiotics at this time. - Dilaudid 0.5 mg every 2 hours as needed for severe breakthrough pain along with Toradol 30 mg IV every 6 hours as needed for moderate to severe pain. Monitor for toxicity. Continue Compazine 5 mg as needed every 6 hours for nausea and vomiting -White count down from 21-19. Lipase down from 59,000 on admission to 4800 this morning. -Repeat CBC, CMP, magnesium ordered for the morning. Hypokalemia -Improved this morning with potassium 3.7. Magnesium 1.8. Monitor daily for replacement. HTN -Continue home amlodipine 2.5 mg daily along with metoprolol succinate 25 mg daily. DVT prophylaxis: SCDs CODE STATUS: Full code Surrogate decision maker: Nilda [phone] Skin: Low risk Estimated length of stay: Greater than 2 midnights
[2024-03-15 07:56] LABS: Lymphocytes % 4 % (10-50); Monocytes % 3 % (2-9); Neutrophils % 93 % (42-76); Platelet Estimate Normal; RBC Morphology Normal; Total Cells Counted 100
--- NOTE | 2024-03-15 08:48 | US_ITS ---
FINAL REPORT TECHNIQUE: Sonographic images of the right upper quadrant were obtained. CLINICAL HISTORY: eval biliary tree, Hx biliary atresia/Cholecystect COMPARISON: None FINDINGS: PANCREAS: Not well-visualized, grossly unremarkable. LIVER: Homogeneous. No focal hepatic lesion. No intrahepatic biliary ductal dilatation. GALLBLADDER: The gallbladder has been surgically resected. COMMON DUCT: 5 mm. Normal for age. RIGHT KIDNEY: The right kidney measures 11.5 cm. There is no hydronephrosis, mass, or stone. FREE FLUID: None. IMPRESSION: Prior cholecystectomy without evidence of biliary ductal dilatation. Reviewed, Interpreted and Dictated by Irina Stark MD Transcribed by Marya Peck Authenticated and [facility]
[2024-03-15] MEDS: LACTATED RINGERS 1000ML 1,000 ML 125 ML IV ×2 (09:13→22:50)
[2024-03-15] MEDS: METOPROLOL SUCCINATE XL 25MG TABLET 25 MG PO (09:41)
[2024-03-15] MEDS: AMLODIPINE 2.5MG TABLET 2.5 MG PO (09:41)
--- OUTSIDE RECORDS SUMMARY | 2024-03-15 09:51 | XMS_ITS | Clinical Summary ---
Author Organization [facility] Address [facility] [place] [address] Phone Care Team Providers Care Quilting Machine Helper Name Role Phone Abdifatah Uriarte MD Unavailable [phone] Mini Reeder MD Primary Care Provider [phone] Allergies Active Allergy Reactions Criticality Noted Date [...] Overview: Added automatically from request for surgery [id number] Anemia 11/19/2017 10/09/2018 Overview (05/01/2018): Overview: Added automatically from request for surgery [id number] Status post exploratory laparotomy 11/07/2016 10/09/2018 Obesity 09/13/2014 04/19/2016 Normal pelvic exam 03/08/2014 9 Acute pancreatitis 05/27/2011 9 Cholangitis 12/11/2006 10/09/2018 Encounters Date Type Department Care Team Description 03/03/2024 Telephone [facility] [address] [place] [address] Mini Reeder MD Results (Labs 02/26) 03/02/2024 Orders Only [facility] [address] [place] [address] Mini Reeder MD 02/27/2024 2:45 PM EST Office Visit [facility] [address] [place] [address] Mini Reeder MD Dysuria (Primary Dx); Hematuria, unspecified type 02/27/2024 Orders Only [facility] [address] [place] [address] Mini Reeder MD Hematuria, unspecified type (Primary Dx) 02/26/2024 Travel 02/09/2024 Telephone [facility] [address] [place] [address] Bud Jones APRN Results 02/09/2024 Refill [facility] [address] [address] Migue Anne MD Medication Refill 02/07/2024 9:00 AM EDT Office Visit [facility] [address] [place] [address] Bud Jones, PACO Annual physical exam (Primary Dx); Chronic midline posterior neck pain; Vitamin B 12 deficiency; Depo-Provera contraceptive status 02/02/2024 Telephone [facility] [address] [facility] [place] [address] Mini Reeder MD Appointment Needed (Dep [...] Rocha COLONOSCOPY 01/12/2018 Dr. Aaron Rocha, with [facility]. Normal colon Medical History Medical History Date [...] 04/24/2024 10:45 AM EST Clinical Support [facility] [address] [place] [address] Health Maintenance Due Date Last [...] Rubio MD Medical Devices Implanted Type Area Licensed Certified Orthotist Device Identifier Shelf Expiration Date Model / Serial / Lot Occluder Septal Amplatzer 7 Fr 14 Mm - [id number] Implanted:Qty: 1 on 07/09/2017 by Genaro Ibarra MD at [facility] [id number] / / [id number] Procedures Procedure Name Priority Date/Time Associated Diagnosis [...] screening mammogram for malignant neoplasm of breast [facility] SENIOR SALES COMPENSATION ANALYST CYTOLOGY ORDER Routine 06/17/2023 9:36 AM EST Well woman exam with routine gynecological exam from Last 3 Months or Most Recently Relevant to Health Maintenance Results * (ABNORMAL) URINE CULTURE (NO STAIN) (02/27/2024 4:05 PM EST) Culture Positive Growth(A) 03/02/2024 11:20 AM EST [facility] Culture 20,000 CFU/mL Streptococcus agalactiae (Group B) SUSCEPTIB ILITY RESULT 03/02/2024 11:20 AM EST [facility] Comment: isolated in addition to multiple bacterial species consistent with urogenital commensal organisms. No further workup. Urine URINE SPECIMEN COLLECTION, CLEAN CATCH / Unknown 02/27/2024 4:05 PM EST 02/27/2024 4:05 PM EST us Mini Reeder MD MICROBIOLOGY - GENERAL ORDERAB LES Final Result [facility] [address] [facility] , [place] [address] * (ABNORMAL) SEP URINALYSIS POC (02/27/2024 3:57 [...] POC Small(A) Negative 4:00 PM EST [facility] [place] Urine URINE SPECIMEN COLLECTION / Unknown 02/27/2024 3:57 PM EST 02/27/2024 4:00 PM EST Mini Reeder MD POINT OF CARE TEST ORDERABLES Final Result Performing Organization Address [facility] de Phone Number [address] [address] * VITAMIN B12/ FOLIC ACID (02/07/2024 10:16 AM EDT) Vitamin B12 416 232 - 1,245 pg/mL 02/07/2024 3:28 PM EDT [facility] [employer] Folate 9.21 >=4.80 ng/mL 02/07/2024 3:28 PM EDT [facility] [employer] Blood VENOUS BLOOD / Unknown Venipuncture / Unknown 02/07/2024 10:16 AM EDT 02/07/2024 10:16 AM EDT Narrative [facility] [employer] - 02/07/2024 3:28 PM EDT Ingestion of abimael doses of biotin (>5 mg/day) taken within 8 hours of drawing blood sample can interfere with this immunoassay test. us Bud Jones APRN CHEMISTRY ORDERABLES Final R esult Performing Organization Address City/[facility] Co de Phone Number [facility] [employer] [address] [facility] , [address] [place] [id number] * CBC (02/07/2024 10:16 AM EDT) WBC 6.8 3.7 - 10.3 x10(3)/mcL 02/07/2024 2:30 PM EDT [facility] RBC 4.75 3.90 - 5.20 x10(6)/mcL 02/07/2024 2:30 PM EDT [facility] Hgb 13.4 11.2 - 15.7 g/dL 02/07/2024 2:30 PM EDT [facility] Hct 41.8 34.0 - 45.0 % 02/07/2024 2:30 PM EDT [facility] MCV 88.0 80.0 - 100.0 fL 02/07/2024 2:30 PM EDT [facility] MCH 28.2 26.0 - 34.0 pg 02/07/2024 2:30 PM EDT [facility] MCHC 32.1 30.7 - 35.5 g/dL 02/07/2024 2:30 PM EDT [facility] RDW 12.7 <=14.9 % 02/07/2024 2:30 PM EDT [facility] Platelet 319 155 - 369 x10(3)/mcL 02/07/2024 2:30 PM EDT [facility] MPV 9.7 8.8 - 12.5 fL 02/07/2024 2:30 PM EDT [facility] Blood VENOUS BLOOD / Unknown Venipuncture / Unknown 02/07/2024 10:16 AM EDT 02/07/2024 10:16 AM EDT Bud Jones APRN HEMATOLOGY ORDERABLES Final Result Performing Organization Address City/[facility]/ZIP Co de Phone Number [facility] [address] [facility] , [place] [address] * THYROID STIMULATING HORMONE (02/07/2024 10:16 AM EDT) [facility] TSH 1.450 0.270 - 4.200 mcIU/mL 02/07/2024 3:09 PM EDT [facility], [facility] Blood VENOUS BLOOD / Unknown Venipuncture / Unknown 02/07/2024 10:16 AM EDT 02/07/2024 10:16 AM EDT Narrative [facility], [facility] - 02/07/2024 3:09 PM EDT Ingestion of abimael doses of biotin (>5 mg/day) taken within 8 hours of drawing blood sample can interfere with this immunoassay test. Bud Jones APRN CHEMISTRY ORDERABLES Final R esult Performing Organization Address City/[facility]/ZIP Co de Phone Number [facility] [employer], [facility] [address] [facility] , [address] [place] [id number] * HEMOGLOBIN A1C (02/07/2024 10:16 AM EDT) [facility] Hgb A1C 5.3 4.2 - 5.6 % 02/07/2024 2:52 PM EDT [facility]ED [facility]. Avg Glucose 105 mg/dL 02/07/2024 2:52 PM EDT [facility] Blood VENOUS BLOOD / Unknown Venipuncture / Unknown 02/07/2024 10:16 AM EDT 02/07/2024 10:16 AM EDT Narrative PREFERRED [employer] [facility] - 02/07/2024 2:52 PM EDT REFERENCE RANGE: Normal: 4.0-5.6% Pre-diabetes: 5.7-6.4% Provisional diagnosis of diabetes: >6.4% Hgb F>10% and anything which shortens red cell survival, such as hemolytic anemia, or unstable hemoglobin variants such as HbSS, HbSC, or HbCC, will lower the HbA1c value associated with a given level of glycemic control. ? us Bud Jones APRN CHEMISTRY ORDERABLES Final R esult [facility] [employer] [facility] 1 [facility] , [address] [place] [phone] [facility] 1 [place] [address] * LIPID SCREEN (02/07/2024 10:16 AM EDT) [facility] Cholesterol 161 <200 mg/dL 02/07/2024 3:09 PM EDT [facility] Comment: < 200 ?Desirable 200 - 239 ? Borderline High >= 240 ?High Triglyceride 74 <150 mg/dL 02/07/2024 3:09 PM EDT [facility] Comment: < 150 ? Normal 150 - [...] mg/dL 02/07/2024 3:09 PM EDT [facility] [employer] Comment: <130 ?Desirable 130-159 Above Desirable 160-189 Borderline High 190-219 High >= 220 ??Very High Fasting Specimen? Unknown None 024 3:09 PM EDT [facility] Blood VENOUS BLOOD / Unknown Venipuncture / Unknown 02/07/2024 10:16 AM EDT 02/07/2024 10:16 AM EDT Bud Jones APRN CHEMISTRY ORDERABLES Final R esult Performing Organization Address [facility]/State/ZIP Co de Phone Number PREFERRED [facility], [facility] 1 [facility], [address] [place] [phone] [facility] 1 [place] [address] * COMPREHENSIVE METABOLIC PANEL (02/07/2024 10:16 AM [...] 02/07/2024 3:09 PM EDT [facility] Calcium 9.0 8.6 - 10.4 mg/dL 02/07/2024 3:09 PM EDT [facility] Glucose Lvl 79 70 - 99 mg/dL 02/07/2024 3:09 PM EDT [facility] BUN 10 6 - 20 mg/dL 02/07/2024 3:09 PM EDT [facility] Creatinine 0.82 0.51 - 1.30 mg/dL 02/07/2024 3:09 PM EDT [facility] Albumin 3.9 3.5 - 5.2 gm/dL 02/07/2024 3:09 PM EDT [facility] Total Protein 6.9 6.4 - 8.3 gm/dL 02/07/2024 3:09 PM EDT [facility] Bili Total 0.4 0.2 - 1.3 mg/dL 02/07/2024 3:09 PM EDT [facility] ALT 5 <=41 U/L 02/07/2024 3:09 PM EDT [facility] AST 15 <=40 U/L 02/07/2024 3:09 PM EDT [facility] Alk Phos 77 36 - 123 U/L 02/07/2024 3:09 PM EDT [facility] eGFR (CKD-EPIcr 2020) 91 >=60 mL/min/1.7 3 m2 02/07/2024 3:09 PM EDT [facility] Comment:Estimated GFR was ca lculated using the CKD-EPIcr (2020) equation refit without race. The equation is recommended by the National Kidney Foundation - [place] [employer] Neph[employer] Task Force. Blood VENOUS BLOOD / Unknown Venipuncture / Unknown 02/07/2024 10:16 AM EDT 02/07/2024 10:16 AM EDT us Bud Jones POT BUILDER CHEMISTRY ORDERABLES Final R esult [facility] [address] [facility] [address] [place] [address] [address] * MM MAMMO DIGITAL MADELEINE SCREEN BILAT (08/26/2023 7:37 AM EDT) Anatomical Region Laterality Modality Breast Bilateral Mammography 08/26/2023 7:54 AM EDT Impressions 08/26/2023 7:54 AM EDT Negative ??([id number]) ~ RECOMMENDATION: Routine screening mammogram in 1 [...] the next mammogram, in accordance with the [place] [employer] and the Society of Breast Imaging recommendations. Narrative 08/26/2023 7:54 AM EDT Procedure:MM MAMMO DIGITAL MADELEINE SCREEN BILAT ~ Reason for exam: screening, asymptomatic. Z12.31-Encounter for screening mammogram for malignant neoplasm of [id number] ~ MM MAMMO DIGITAL MADELEINE SCREEN BILAT [...] for screening mammogram for malignant neoplasm of [id number]-[id number]-CM ~ MM MAMMO DIGITAL MADELEINE SCREEN BILAT Bilateral CC and MLO view(s) were taken. The breast tissue is heterogeneously dense. This may lower thesensitivity of mammography. Prior study comparison: Compared with prior studies the most recentbeing 07/10/22, 10/30/20 No mammographic evidence of malignancy. ~ IMPRESSION: Negative ([id number]) ~ RECOMMENDATION: Routine screening mammogram in 1 [...] the next mammogram, in accordance with the [place] [employer] and the Society of Breast Imaging recommendations. Misty Gillespie MD IMG MAMMOGRAPHY ORDERABLES Final Result from Last 3 Months or Most Recently Relevant to Health Maintenance Insurance [id number] [address] Care Teams Quilting Machine Helper Relationship Specialty Start Date End Date Mini Reeder MD [address] [place] [address] PCP - General Family Medicine 08/26/23 Abdifatah Uriarte MD [address] [place] [phone] Consulting Physician Obstetrics & Gynecology-Gynecologic Oncology 12/16/19
--- OUTSIDE RECORDS SUMMARY | 2024-03-15 09:52 | XMS_ITS | Encounter Summary ---
Author Organization [facility] [place] [address] Care Team Providers Care Professional Engineer Name Role Phone Abdifatah Uriarte MD Unavailable [phone] Mini Reeder MD Primary Care Provider [phone] Reason for Visit * Reason Onset Date Comments Medication Refill 10/28/2023 Encounter Details Date Type Department Care Team (Late st Contact Info) Description 10/28/2023 Refill [facility] [address] [place] [phone] Misty Gillespie MD [address] [place] [address] Medication Refill Social History Tobacco Use Types [...] 04/24/2024 10:45 AM EST Clinical Support [facility] [address] [place] [address] [phone] documented as of this encounter Goals Goal [...] documented as of this encounter Care Teams Professional Engineer Relationship Specialty Start Date End Date Mini Reeder MD [address] [place] [address] PCP - General Family Medicine 08/26/23 Abdifatah Uriarte MD [address] [place] [address] [place] [address] Consulting Physician Obstetrics & Gynecology-Gynecologic Oncology 12/16/19 documented as of this encounter
--- OUTSIDE RECORDS SUMMARY | 2024-03-15 09:52 | XMS_ITS | Encounter Summary ---
Author [place] [address] Care Team Providers Care Water And Fire Technician Name Role Phone Abdifatah Uriarte MD Unavailable [phone] Mini Reeder MD Primary Care Provider Reason for Visit * Reason Comments Weight Gain Encounter Details Date Type Department Care Team (Late Contact Info) Description 12/06/2023 9:30 AM EDT Office Visit [facility] [address] [place] [phone] Horacio Brown MD 100 [place] [address] Vitamin B 12 deficiency (Primary Dx); Chronic [...] 04/24/2024 10:45 AM EST Clinical Support [facility] [address] [place] [address] documented as of this encounter Goals Goal [...] * MISCELLANEOUS LAB (12/06/2023 10:33 AM EDT) [facility] COMMENT See Scanned Image 12/09/2023 7:48 AM EDT [facility] Blood VENOUS BLOOD / Unknown Venipuncture / Unknown 12/06/2023 10:33 AM EDT 12/07/2023 1:10 PM EDT us Horacio Brown MD HEMATOLOGY ORDERABLES F inal Result Performing Organization Address [facility]/ZIP Co de Phone Number EXTERNAL LAB See Scanned Report [facility] [address] [place] [phone] * TSH REFLEX (12/06/2023 10:33 AM EDT) TSH Reflex 1.260 0.270 - 4.200 mcIU/mL 12/06/2023 3:12 PM EDT [facility] Blood VENOUS BLOOD / Unknown Venipuncture / Unknown 12/06/2023 10:33 AM EDT 12/06/2023 10:33 AM EDT Narrative BIG [facility] - 12/06/2023 3:12 PM EDT Ingestion of abimael doses of biotin (>5 mg/day) taken within 8 hours of drawing blood sample can interfere with this immunoassay test. Horacio Brown MD CHEMISTRY ORDERABLES Fi nal Result Performing Organization Address [facility] de Phone Number [facility] [address] [place] [address] , [place] [address] * VITAMIN B12/ FOLIC ACID (12/06/2023 10:33 AM EDT) Pathologist [facility] Vitamin B12 473 232 - 1,245 pg/mL 12/06/2023 3:58 PM EDT [facility] Folate 11.10 >=4.80 ng/mL 12/06/2023 3:58 PM EDT [facility] Blood VENOUS BLOOD / Unknown Venipuncture / Unknown 12/06/2023 10:33 AM EDT 12/06/2023 10:33 AM EDT Narrative BIG Launcher - 12/06/2023 3:58 PM EDT Ingestion of abimael doses of biotin (>5 mg/day) taken within 8 hours of drawing blood sample can interfere with this immunoassay test. Horacio Brown MD CHEMISTRY ORDERABLES Fi nal Result Performing Organization Address [facility] Co de Phone Number [facility] [address] [place] [address] , [place] [address] documented in this encounter Visit Diagnoses Diagnosis [...] 12/06/2023 documented in this encounter Care Teams Water And Fire Technician Relationship Specialty Start Date End Date Mini Reeder MD [address] [place] [phone] PCP - General Family Medicine 08/26/23 Abdifatah Uriarte MD 1 [facility] [place] [address] Consulting Physician Obstetrics & Gynecology-Gynecologic Oncology 12/16/19 documented as of this encounter
--- OUTSIDE RECORDS SUMMARY | 2024-03-15 09:52 | XMS_ITS | Encounter Summary ---
Author Organization [place] [address] Care Team Providers Care Laboratory Cureman Name Role Phone Abdifatah Uriarte MD Unavailable [phone] Abdifatah Geiger MD Primary Care Provider [phone] Reason for Visit * Reason Onset Date Comments Medication Refill 08/19/2023 Encounter Details Date Type Department Care Team (Late st Contact Info) Description 08/19/2023 Refill [facility] [address] [place] [phone] Misty Gillespie MD [address] [place] [address] Medication Refill Social History Tobacco Use Types [...] Clinical Support [facility] 100 [place] [address] documented as of this encounter [...] documented as of this encounter Care Teams Laboratory Cureman Relationship Specialty Start Date End Date Abdifatah Geiger MD [address] [place] [phone] PCP - General Family Medicine 07/17/22 08/25/23 Abdifatah Uriarte MD [address] [place] [phone] Consulting Physician Obstetrics & Gynecology-Gynecologic Oncology 8/27/20 documented as of this encounter
--- OUTSIDE RECORDS SUMMARY | 2024-03-15 09:52 | XMS_ITS | Encounter Summary ---
Author Organization [place] [address] Care Team Providers Care Turbine Blade Assembler Name Role Phone Abdifatah Uriarte MD Unavailable [phone] Mini Reeder MD Primary Care Provider [phone] Encounter Details Date Type Department Care Team (Late st Contact Info) Description 03/02/2024 Orders Only [facility] 100 [place] [phone] Mini Reeder MD 100 [place] [address] Social History Tobacco Use Types Packs/Day Years [...] 04/24/2024 10:45 AM EST Clinical Support [facility] 100 [place] [address] documented as of this encounter Goals Goal Patient Goal Type Associated Problems Recent Progress Patient-Stated? Author Maintain a healthy diet, exercise regularly and maintain an ideal body weight General No Thea Rubio MD Stay Tobacco Free Lifestyle No Thea Rubio MD documented as of this encounter Visit Diagnoses Not on filedocumented in this encounter Care Teams Turbine Blade Assembler Relationship Specialty Start Date End Date Mini Reeder MD [address] [place] [phone] PCP - General Family Medicine 08/26/23 Abdifatah Uriarte MD [address] [place] [address] [place] [address] Consulting Physician Obstetrics & Gynecology-Gynecologic Oncology 12/16/19 documented as of this encounter
--- OUTSIDE RECORDS SUMMARY | 2024-03-15 09:52 | XMS_ITS | Encounter Summary ---
Author Organization [place] [address] Care Team Providers Care Recordings Librarian Name Role Phone Abdifatah Uriarte MD Unavailable [phone] Mini Reeder MD Primary Care Provider [phone] Reason for Visit * Reason Onset Date Comments Appointment Needed 10/03/2023 nurse-B12 tin t Encounter Details Date Type Department Care Team (Late Contact Info) Description 10/03/2023 Telephone [facility] 100 [place] [phone] Mini Reeder MD 100 [place] [address] Appointment Needed (nurse-B12 shot ) Social History [...] 04/24/2024 10:45 AM EST Clinical Support [facility] [place] [facility] [address] [place] [address] documented as of this encounter Goals Goal Patient Goal Type Associated Problems Recent Progress Patient-Stated? Author Maintain a healthy diet, exercise regularly and maintain an ideal body weight General No Thea Rubio MD Stay Tobacco Free Lifestyle No Thea Rubio MD documented as of this encounter Visit Diagnoses Not on filedocumented in this encounter Care Teams Recordings Librarian Relationship Specialty Start Date End Date Mini Reeder MD [address] [place], [place] [phone] PCP - General Family Medicine 08/26/23 Abdifatah Uriarte MD [address] [place] [address] [place] [address] Consulting Physician Obstetrics & Gynecology-Gynecologic Oncology 12/16/19 documented as of this encounter
--- OUTSIDE RECORDS SUMMARY | 2024-03-15 09:52 | XMS_ITS | Encounter Summary ---
Author Organization [place] [address] Care Team Providers Care Manager Intelligence Name Role Phone Abdifatah Uriarte MD Unavailable [phone] Abdifatah Geiger MD Primary Care Provider [phone] Reason for Visit * Reason Onset Date Comments Medication Refill 08/19/2023 Encounter Details Date Type Department Care Team (Late st Contact Info) Description 08/19/2023 Telephone [facility]ENL [address] [place] [phone] Misty Gillespie MD [address] [place] [address] Medication Refill Social History Tobacco Use Types [...] 04/24/2024 10:45 AM EST Clinical Support [facility] [address] [place] [address] documented as of this encounter [...] as of this encounter Care Teams Manager Intelligence Relationship Specialty Start Date End Date Abdifatah Geiger MD [address] [place] [phone] PCP - General Family Medicine 07/17/22 08/25/23 Abdifatah Uriarte MD [address] [place] [address] [place] [address] Consulting Physician Obstetrics & Gynecology-Gynecologic Oncology 12/16/19 documented as of this encounter
--- OUTSIDE RECORDS SUMMARY | 2024-03-15 09:52 | XMS_ITS | Encounter Summary ---
Author Organization [facility] [place] [address] Care Team Providers Care Chainstitch Pants Outseamer Name Role Phone Abdifatah Uriarte MD Unavailable Mini Reeder MD Primary Care Provider [phone] Encounter Details Date Type Department Care Team [...] 04/24/2024 10:45 AM EST Clinical Support [facility] [address] [place] [address] documented as of this encounter Goals Goal Patient Goal Type Associated Problems Recent Progress Patient-Stated? Author Maintain a healthy diet, exercise regularly and maintain an ideal body weight General No Thea Rubio MD Stay Tobacco Free Lifestyle No Thea Rubio MD documented as of this encounter Visit Diagnoses Not on filedocumented in this encounter Care Teams Chainstitch Pants Outseamer Relationship Specialty Start Date End Date Mini Reeder MD [address] [place], [place] [phone] PCP - General Family Medicine 08/26/23 Abdifatah Uriarte MD [address] [place] [address] [place] [address] Consulting Physician Obstetrics & Gynecology-Gynecologic Oncology 12/16/19 documented as of this encounter
--- OUTSIDE RECORDS SUMMARY | 2024-03-15 09:52 | XMS_ITS | Encounter Summary ---
Author Organization [place] [address] Care Team Providers Care Lining Scrubber Name Role Phone Abdifatah Uriarte MD Unavailable [phone] Mini Reeder MD Primary Care Provider [phone] Reason for Visit * Reason Comments Medication Refill Encounter Details Date Type Department Care Team (Late Contact Info) Description 02/09/2024 Refill [facility] [address] [place] [address] Migue Anne MD [address] [place] [address] Medication Refill Social History Tobacco Use Types [...] 04/24/2024 10:45 AM EST Clinical Support [facility] [place] [facility] [address] [place] [address] documented as of this encounter [...] documented as of this encounter Care Teams Lining Scrubber Relationship Specialty Start Date End Date Mini Reeder MD [address] [place] [address] PCP - General Family Medicine 08/26/23 Abdifatah Uriarte MD [address] [place] [address] [place] [address] Consulting Physician Obstetrics & Gynecology-Gynecologic Oncology 12/16/19 documented as of this encounter
--- OUTSIDE RECORDS SUMMARY | 2024-03-15 09:52 | XMS_ITS | Encounter Summary ---
Author [place] [address] Care Team Providers Care Washcoat Wiper Name Role Phone Abdifatah Uriarte MD Unavailable [phone] Mini Reeder MD Primary Care Provider [phone] Reason for Visit * Reason Onset Date Comments Appointment Needed 02/02/2024 Dep shot Encounter Details Date Type Department Care Team (Late Contact Info) Description 02/02/2024 Telephone [facility] [address] [place] [phone] Mini Reeder MD 100 [place] [address] Appointment Needed (Dep shot ) Social History [...] Would like to get on Saturdays at [place] if possible Reason Scheduling Assistance is Needed: Call Center not permitted to schedule Additional Information: N/A documented in this encounter Plan of Treatment Upcoming Encounters Date Type Department Care Team (Late st Contact Info) Description 04/24/2024 10:45 AM EST Clinical Support [facility] [address] [place] [phone] documented as of this encounter Goals Goal Patient Goal Type Associated Problems Recent Progress Patient-Stated? Author Maintain a healthy diet, exercise regularly and maintain an ideal body weight General No Thea Rubio MD Stay Tobacco Free Lifestyle No Thea Rubio MD documented as of this encounter Visit Diagnoses Not on filedocumented in this encounter Care Teams Washcoat Wiper Relationship Specialty Start Date End Date Mini Reeder MD [address] [place] [address] PCP - General Family Medicine 08/26/23 Abdifatah Uriarte MD [address] [place] [address] [place] [address] Consulting Physician Obstetrics & Gynecology-Gynecologic Oncology 12/16/19 documented as of this encounter
--- OUTSIDE RECORDS SUMMARY | 2024-03-15 09:52 | XMS_ITS | Referral Summary ---
Author Organization [facility] Address [address] [place] [address] Phone Care Team Providers Care Lining Repairer Name Role Phone Abdifatah Uriarte MD Unavailable [phone] Mini Reeder MD Primary Care Provider Encounters Date Type Department Care Team Description 03/03/2024 Telephone [facility] 100 [facility] [place] [address] Mini Reeder MD Results (Labs 02/26) 03/02/2024 Orders Only [facility] 100 [facility] [place] [address] Mini Reeder MD 02/27/2024 Orders Only [facility] 100 [facility] [place] [address] Mini Reeder MD Hematuria, unspecified type (Primary Dx) 02/27/2024 2:45 PM EST Office Visit [facility] [address] [place] [address] Mini Reeder MD Dysuria (Primary Dx); Hematuria, unspecified type 02/26/2024 Travel 02/09/2024 Telephone [facility] 100 [facility] [place] [address] Bud Jones APRN Results 02/09/2024 Refill [facility] [place] [address] [place] [address] Migue Anne MD Medication Refill 02/07/2024 9:00 AM EDT Office Visit [facility] [address] [place] [address] Bud Jones APRN Annual physical exam (Primary Dx); Chronic midline posterior neck pain; Vitamin B 12 deficiency; Depo-Provera contraceptive status 02/02/2024 Telephone [facility] [address] [place] [address] Mini Reeder MD Appointment Needed (Dep [...] Overview: Added automatically from request for surgery [id number] Anemia 11/19/2017 10/09/2018 Overview (05/01/2018): Overview: Added automatically from request for surgery [id number] Status post exploratory laparotomy 11/07/2016 10/09/2018 Obesity [...] 04/24/2024 10:45 AM EST Clinical Support [facility] [address] [place] [address] Goals Goal Patient Goal Type Associated Problems Recent Progress Patient-Stated? Author Maintain a healthy diet, exercise regularly and maintain an ideal body weight General No Thea Rubio MD Stay Tobacco Free Lifestyle No Thea Rubio MD Medical Devices Implanted Type Area Working Foreman Device Identifier Shelf Expiration Date Model / Serial / Lot Occluder Septal Amplatzer 7 Fr 14 Mm - [id number] Implanted:Qty: 1 on 07/09/2017 by Genaro Ibarra MD at [facility] [id number] / / [id number] Procedures Procedure Name Priority Date/Time Associated Diagnosis [...] screening mammogram for malignant neoplasm of breast [facility] CYTOLOGY ORDER Routine 06/17/2023 9:36 AM EST Well woman exam with routine gynecological exam from Last 3 Months or Most Recently Relevant to Health Maintenance Results * (ABNORMAL) URINE CULTURE (NO STAIN) (02/27/2024 4:05 PM EST) Culture Positive Growth(A) 03/02/2024 11:20 AM EST [facility] Culture 20,000 CFU/mL Streptococcus agalactiae (Group B) SUSCEPTIB ILITY RESULT 03/02/2024 11:20 AM EST [facility] Comment: isolated in addition to multiple bacterial species consistent with urogenital commensal organisms. No further workup. Urine URINE SPECIMEN COLLECTION, CLEAN CATCH / Unknown 02/27/2024 4:05 PM EST 02/27/2024 4:05 PM EST us Mini Reeder MD MICROBIOLOGY - GENERAL ORDERAB LES Final Result [facility] [address] [place] [address] , [place] [address] * (ABNORMAL) SEP URINALYSIS POC (02/27/2024 3:57 [...] - 8.0 pH 02/27/2024 4:00 PM EST [facility] Protein POC Negative Negative mg/dL 02/27/2024 4:00 PM EST [facility] Urobilinogen POC 1.0 0.2, 1.0 02/27/2024 4:00 PM EST [facility] Nitrite POC Negative Negative 02/27/2024 4:00 PM EST [facility] Leuk Est POC Small(A) Negative 4:00 PM EST [facility] Urine URINE SPECIMEN COLLECTION / Unknown 02/27/2024 3:57 PM EST 02/27/2024 4:00 PM EST Mini Reeder MD POINT OF CARE TEST ORDERABLES Final Result Performing Organization Address [facility] Co de Phone Number [address] [address] * VITAMIN B12/ FOLIC ACID (02/07/2024 10:16 AM EDT) Vitamin B12 416 232 - 1,245 pg/mL 02/07/2024 3:28 PM EDT [facility] Folate 9.21 >=4.80 ng/mL 02/07/2024 3:28 PM EDT [facility] Blood VENOUS BLOOD / Unknown Venipuncture / Unknown 02/07/2024 10:16 AM EDT 02/07/2024 10:16 AM EDT Narrative [facility] - 02/07/2024 3:28 PM EDT Ingestion of abimael doses of biotin (>5 mg/day) taken within 8 hours of drawing blood sample can interfere with this immunoassay test. us Bud Jones APRN CHEMISTRY ORDERABLES Final R esult [facility] [address] [facility] , [place] [address] * CBC (02/07/2024 10:16 AM EDT) WBC 6.8 3.7 - 10.3 x10(3)/mcL 02/07/2024 2:30 PM EDT [facility] RBC 4.75 3.90 - 5.20 x10(6)/mcL 02/07/2024 2:30 PM EDT [facility] Hgb 13.4 11.2 - 15.7 g/dL 02/07/2024 2:30 PM EDT [facility] Hct 41.8 34.0 - 45.0 % 02/07/2024 2:30 PM EDT [facility] MCV 88.0 80.0 - 100.0 fL 02/07/2024 2:30 PM EDT [facility] MCH 28.2 26.0 - 34.0 pg 02/07/2024 2:30 PM EDT [facility] MCHC 32.1 30.7 - 35.5 g/dL 02/07/2024 2:30 PM EDT [facility] RDW 12.7 <=14.9 % 02/07/2024 2:30 PM EDT [facility] Platelet 319 155 - 369 x10(3)/mcL 02/07/2024 2:30 PM EDT [facility] MPV 9.7 8.8 - 12.5 fL 02/07/2024 2:30 PM EDT [facility] Blood VENOUS BLOOD / Unknown Venipuncture / Unknown 02/07/2024 10:16 AM EDT 02/07/2024 10:16 AM EDT Bud Jones LOAN APPROVER HEMATOLOGY ORDERABLES Final Result [facility] [address] [facility] , [place] [address] * THYROID STIMULATING HORMONE (02/07/2024 10:16 AM EDT) Pathologist [facility] TSH 1.450 0.270 - 4.200 mcIU/mL 02/07/2024 3:09 PM EDT [facility] Blood VENOUS BLOOD / Unknown Venipuncture / Unknown 02/07/2024 10:16 AM EDT 02/07/2024 10:16 AM EDT Narrative [facility] - 02/07/2024 3:09 PM EDT Ingestion of abimael doses of biotin (>5 mg/day) taken within 8 hours of drawing blood sample can interfere with this immunoassay test. Bud Jones APRN CHEMISTRY ORDERABLES Final R esult Performing Organization Address City/[facility]/ZIP Co de Phone Number [facility] [address] [facility] , [place] [address] * HEMOGLOBIN A1C (02/07/2024 10:16 AM EDT) Hgb A1C 5.3 4.2 - 5.6 % 02/07/2024 2:52 PM EDT [facility] Est. Avg Glucose 105 mg/dL 02/07/2024 2:52 PM EDT [facility] Blood VENOUS BLOOD / Unknown Venipuncture / Unknown 02/07/2024 10:16 AM EDT 02/07/2024 10:16 AM EDT Narrative [facility] - 02/07/2024 2:52 PM EDT [...] ORDERABLES Final R esult Performing Organization Address City/[facility]/ZIP Co de Phone Number [facility] [address] [facility] [address], [place] [address] [facility] [address] [place] [address] * LIPID SCREEN (02/07/2024 10:16 AM EDT) Cholesterol 161 <200 mg/dL 02/07/2024 3:09 PM EDT [facility] Comment: < 200 ?Desirable 200 - 239 ? Borderline High >= 240 ?High Triglyceride 74 <150 mg/dL 02/07/2024 3:09 PM EDT [facility] Comment: < 150 ? Normal 150 - 199 ?Borderline High 200 - 499 ?High ??>= 500 ? Very High HDL 52 >=40 mg/dL 02/07/2024 3:09 PM EDT [facility] Comment: ??> 60 ?Optimal 40 - 60 ?Acceptable ?? < 40 ?Low LDL Calculated 95 <100 mg/dL 02/07/2024 3:09 PM EDT [facility] Comment: < 100 ?Optimal 100 - 129 ? Near or above optimal 130 - 159 ? Borderline High 160 - 189 ? High >= 190 ?Very High Non-HDL-C Calculated 109 <=129 mg/dL 02/07/2024 3:09 PM EDT [facility] Comment: <130 ?Desirable 130-159 Above Desirable 160-189 Borderline High 190-219 High >= 220 ??Very High Fasting Specimen? Unknown None 024 3:09 PM EDT [facility] Blood VENOUS BLOOD / Unknown Venipuncture / Unknown 02/07/2024 10:16 AM EDT 02/07/2024 10:16 AM EDT us Bud Jones LOAN APPROVER CHEMISTRY ORDERABLES Final R esult [facility] [address] [facility], [place] [address] [facility] [address] [place] [address] * COMPREHENSIVE METABOLIC PANEL (02/07/2024 10:16 AM EDT) [facility] Sodium 141 136 - 145 mmol/L 02/07/2024 [...] mL/min/1.7 3 m2 02/07/2024 3:09 PM EDT [facility] Comment:Estimated GFR was ca lculated using the CKD-EPIcr (2020) equation refit without race. The equation is recommended by the National Kidney Foundation - [place] [employer] of Nephrology Task Force. Blood VENOUS BLOOD / Unknown Venipuncture / Unknown 02/07/2024 10:16 AM EDT 02/07/2024 10:16 AM EDT us Bud Jones LOAN APPROVER CHEMISTRY ORDERABLES Final R esult [facility] [address] [facility] [place] [id number] [facility] [address] [place] [address] * MM MAMMO DIGITAL MADELEINE SCREEN BILAT (08/26/2023 7:37 AM EDT) Anatomical Region Laterality Modality Breast Bilateral Mammography 08/26/2023 7:54 AM EDT Impressions 08/26/2023 7:54 AM EDT Negative ??([id number]) ~ RECOMMENDATION: Routine screening mammogram in 1 [...] for screening mammogram for malignant neoplasm of [id number]-CM ~ MM MAMMO DIGITAL MADELEINE SCREEN BILAT [...] for screening mammogram for malignant neoplasm of [id number]-CM ~ MM MAMMO DIGITAL MADELEINE SCREEN BILAT Bilateral CC and MLO view(s) were taken. The breast tissue is heterogeneously dense. This may lower thesensitivity of mammography. Prior study comparison: Compared with prior studies the most recentbeing 07/10/22, 10/30/20 No mammographic evidence of malignancy. ~ IMPRESSION: Negative ([id number]) ~ RECOMMENDATION: Routine screening mammogram in 1 [...] recommendations. Misty Gillespie MD [facility] MAMMOGRAPHY ORDERABLES Final Result from Last 3 Months or Most Recently Relevant to Health Maintenance Insurance [id number] [id number] Care Teams Lining Repairer Relationship Specialty Start Date End Date Mini Reeder MD [address] [place] [address] PCP - General Family Medicine 08/26/23 Abdifatah Uriarte MD [address] [place] [address] [place] [address] Consulting Physician Obstetrics & Gynecology-Gynecologic Oncology 12/16/19
--- OUTSIDE RECORDS SUMMARY | 2024-03-15 09:52 | XMS_ITS | Encounter Summary ---
Author Organization [place] [address] Care Team Providers Care Sweet Potato Disintegrator Name Role Phone Abdifatah Uriarte MD Unavailable Mini Reeder MD Primary Care Provider [phone] Reason for Visit * Reason Onset Date Comments Medication Refill Central Patient Navigator Outreach 10/24/2023 med refill 1st H&V Encounter Details Date Type Department Care Team (Late st Contact Info) Description 10/24/2023 Refill [facility] [address] [place] [address] Migue Anne MD [address] [place] [address] Medication Refill; Central Patient Navigator Outreach (med [...] H&V Attempt Count: 2nd Care Gaps Addressed superintendent overhead distribution: Appointment Outcome: Left message to return call at . * Telephone Encounter - Myrtle Schulte - 10/24/2023 2:25 PM EDT Patient Outreach: Medication refill appointment, [facility] H&V Attempt Count: 1st Care Gaps Addressed superintendent overhead distribution: Appointment Outcome: Left message to return call at and MyChart Message Sent. * Telephone Encounter - Johnna Esparza CPhT - 10/24/2023 2:15 PM EDT Amlodipine Medication Refill Protocol failed due to appointment. sap [facility] consultant Reason: Chart review does not show a coded diagnosis in protocol timeframe. sap [facility] consultant Action: Approved 30-day supply of medication Routed to Patient Navigator team for outreach to schedule appointment. documented in this encounter Plan of Treatment Upcoming Encounters Date Type Department Care Team (Late st Contact Info) Description 04/24/2024 10:45 AM EST Clinical Support [facility] [address] [place] [address] documented as of this encounter [...] documented as of this encounter Care Teams Sweet Potato Disintegrator Relationship Specialty Start Date End Date Mini Reeder MD 100 [place] [address] PCP - General Family Medicine 08/26/23 Abdifatah Uriarte MD [address] [facility] [place] [address] Consulting Physician Obstetrics & Gynecology-Gynecologic Oncology 12/16/19 documented as of this encounter
--- OUTSIDE RECORDS SUMMARY | 2024-03-15 09:52 | XMS_ITS | Encounter Summary ---
Author Organization [place] [address] Care Team Providers Care Sander Hand Name Role Phone Abdifatah Uriarte MD Unavailable [phone] Mini Reeder MD Primary Care Provider [phone] Reason for Visit * Reason Onset Date Comments Results 02/09/2024 Encounter Details Date Type Department Care Team (Late Contact Info) Description 02/09/2024 Telephone [facility] [address] [place] [address] Bud Jones, STOCKROOM SELECTOR [address] [place], [place] [id number] Results Social History Tobacco Use Types Packs/Day [...] 04/24/2024 10:45 AM EST Clinical Support [facility] [address] [place] [address] documented as of this encounter Goals Goal Patient Goal Type Associated Problems Recent Progress Patient-Stated? Author Maintain a healthy diet, exercise regularly and maintain an ideal body weight General No Thea Rubio MD Stay Tobacco Free Lifestyle No Thea Rubio MD documented as of this encounter Visit Diagnoses Not on filedocumented in this encounter Care Teams Sander Hand Relationship Specialty Start Date End Date Mini Reeder MD [address] [place] [address] PCP - General Family Medicine 08/26/23 Abdifatah Uriarte MD [address] [place] [address] [place] [address] Consulting Physician Obstetrics & Gynecology-Gynecologic Oncology 12/16/19 documented as of this encounter
--- OUTSIDE RECORDS SUMMARY | 2024-03-15 09:52 | XMS_ITS | Encounter Summary ---
Author Organization [place] [address] Care Team Providers Care Loan Review Analyst Name Role Phone Abdifatah Uriarte MD Unavailable [phone] Mini Reeder MD Primary Care Provider [phone] Reason for Visit * Reason Onset Date Comments Appointment Needed 08/29/2023 Encounter Details Date Type Department Care Team (Late Contact Info) Description 08/29/2023 Telephone [facility] [address] [place] [phone] Mini Reeder MD [address] [place] [address] Appointment Needed Social History Tobacco Use Types [...] 04/24/2024 10:45 AM EST Clinical Support [facility] [address] [place] [address] documented as of this encounter Goals Goal Patient Goal Type Associated Problems Recent Progress Patient-Stated? Author Maintain a healthy diet, exercise regularly and maintain an ideal body weight General No Thea Rubio MD Stay Tobacco Free Lifestyle No Thea Rubio MD documented as of this encounter Visit Diagnoses Not on filedocumented in this encounter Care Teams Loan Review Analyst Relationship Specialty Start Date End Date Mini Reeder MD [address] [place] [address] PCP - General Family Medicine 08/26/23 Abdifatah Uriarte MD [address] [place] [address] [place] [phone] Consulting Physician Obstetrics & Gynecology-Gynecologic Oncology 12/16/19 documented as of this encounter
--- OUTSIDE RECORDS SUMMARY | 2024-03-15 09:52 | XMS_ITS | Encounter Summary ---
Author Organization [place] [address] Care Team Providers Care Spring Forger Name Role Phone Abdifatah Uriarte MD Unavailable [phone] Mini Reeder MD Primary Care Provider [phone] Reason for Visit * Reason Comments Establish Care Annual Exam Hypertension Encounter Details Date Type Department Care Team (Late st Contact Info) Description 08/26/2023 10:30 AM EDT Office Visit [facility] 100 [place] [phone] Mini Reeder MD 100 [place] [address] ASD (atrial septal defect) (Primary Dx); Celiac [...] kg/m??. SUBJECTIVE: Chief Complaint Patient presents with [facility] Care Annual Exam Hypertension HPI: Well [...] Infant COLONOSCOPY 01/12/2018 Dr. Aaron Rocha, with [facility]. Normal colon UPPER GASTROINTESTINAL ENDOSCOPY 12/04/2017 [...] 04/24/2024 10:45 AM EST Clinical Support [facility] 100 [place] [address] documented as of this encounter [...] - 150.0 ng/mL 08/26/2023 10:34 PM EDT Method Comment: Preferred: >= 30 ng/mL Insufficient: 21-29 [...] Reeder MD CHEMISTRY ORDERABLES Final Res ult Method 1 [facility] , [address] [place] [id number] * VITAMIN B12/ FOLIC ACID (08/26/2023 11:31 AM EDT) Vitamin B12 364 232 - 1,245 pg/mL 08/26/2023 10:34 PM EDT Method Folate 8.09 >=4.80 ng/mL 08/26/2023 10:34 PM EDT Method Blood VENOUS BLOOD / Unknown Venipuncture / Unknown 08/26/2023 11:31 AM EDT 08/26/2023 11:31 AM EDT Narrative Method - 08/26/2023 10:34 PM EDT Ingestion of abimael doses of biotin (>5 mg/day) taken within 8 hours of drawing blood sample can interfere with this immunoassay test. us Mini Reeder MD CHEMISTRY ORDERABLES Final Res ult Method 1 [facility] , [place] [address] documented in this encounter Visit Diagnoses Diagnosis [...] documented as of this encounter Care Teams Spring Forger Relationship Specialty Start Date End Date Mini Reeder MD [address] [place] [id number] PCP - General Family Medicine 08/26/23 Abdifatah Uriarte MD [address] [place] [address] [place] [address] Consulting Physician Obstetrics & Gynecology-Gynecologic Oncology 12/16/19 documented as of this encounter
--- OUTSIDE RECORDS SUMMARY | 2024-03-15 09:52 | XMS_ITS | Encounter Summary ---
Author Organization [place] [address] Care Team Providers Care Jewelry Polisher Name Role Phone Abdifatah Uriarte MD Unavailable [phone] Mini Reeder MD Primary Care Provider [phone] Reason for Visit * Reason Onset Date Comments Results 03/03/2024 Labs 02/26 Encounter Details Date Type Department Care Team (Late Contact Info) Description 03/03/2024 Telephone [facility] 100 [place] [address] Mini Reeder MD 100 [place] [address] Results (Labs 02/26) Social History Tobacco Use [...] No Pharmacy Location Verified: Yes Pharmacy Location: [facility] Other: Results given to patient Mini Reeder MD 03/02/2024 6:48 PM EST Small amount of growth on the culture given the symptoms med is sent. documented in this encounter Plan of Treatment Upcoming Encounters Date Type Department Care Team (Late st Contact Info) Description 04/24/2024 10:45 AM EST Clinical Support [facility] [address] [place] [address] documented as of this encounter Goals Goal Patient Goal Type Associated Problems Recent Progress Patient-Stated? Author Maintain a healthy diet, exercise regularly and maintain an ideal body weight General No Thea Rubio MD Stay Tobacco Free Lifestyle No Thea Rubio MD documented as of this encounter Visit Diagnoses Not on filedocumented in this encounter Care Teams Jewelry Polisher Relationship Specialty Start Date End Date Mini Reeder MD 100 [place] [address] PCP - General Family Medicine 08/26/23 Abdifatah Uriarte MD [address] [place] [address] [place] [address] Consulting Physician Obstetrics & Gynecology-Gynecologic Oncology 12/16/19 documented as of this encounter
--- OUTSIDE RECORDS SUMMARY | 2024-03-15 09:52 | XMS_ITS | Encounter Summary ---
Author Organization [facility] [place] [address] Care Team Providers Care Associate Financial Representative Name Role Phone Abdifatah Uriarte MD Unavailable [phone] Abdifatah Geiger MD Primary Care Provider [phone] Encounter Details Date Type Department Care Team [...] 04/24/2024 10:45 AM EST Clinical Support [facility] 100 [place] [address] documented as of this encounter Goals Goal [...] documented as of this encounter Care Teams Associate Financial Representative Relationship Specialty Start Date End Date Abdifatah Geiger MD [address] [place] [address] PCP - General Family Medicine 07/17/22 08/25/23 Abdifatah Uriarte MD [address] [place] [address] [place] [address] Consulting Physician Obstetrics & Gynecology-Gynecologic Oncology 12/16/19 documented as of this encounter
--- OUTSIDE RECORDS SUMMARY | 2024-03-15 09:52 | XMS_ITS | Encounter Summary ---
Author Organization [place] [address] Care Team Providers Care Cutting Room Supervisor Name Role Phone Abdifatah Uriarte MD Unavailable [phone] Mini Reeder MD Primary Care Provider [phone] Reason for Visit * Reason Comments Injections Depo injection Encounter Details Date Type Department Care Team (Latest Contact Info) Description 08/26/2023 9:00 AM EDT Clinical Support [facility] [address] [place] [address] Louann Mccray MA Excessive and frequent [...] [facility] 100 [place] [address] documented as of this encounter Goals Goal [...] Deltoid documented in this encounter Care Teams Cutting Room Supervisor Relationship Specialty Start Date End Date Mini Reeder MD 100 [place], [place] [id number] PCP - General Family Medicine 08/26/23 Abdifatah Uriarte MD [address] [place] [address] [place] [address] Consulting Physician Obstetrics & Gynecology-Gynecologic Oncology 12/16/19 documented as of this encounter
--- OUTSIDE RECORDS SUMMARY | 2024-03-15 09:52 | XMS_ITS | Encounter Summary ---
Author Organization [place] [address] Care Team Providers Care Felting Machine Operator Helper Name Role Phone Abdifatah Uriarte MD Unavailable Mini Reeder MD Primary Care Provider [phone] Reason for Referral * Mammography (Routine) - Pending Review Specialty Diagnoses / Procedures Referred By Amalia tuttle Referred To Contact Radiology Diagnoses Encounter for screening mammogram for malignant neoplasm of breast Procedures MM MAMMO DIGITAL MADELEINE SCREEN Misty Mary MD [address] [place] [address] Phone: tel: fax: Referral ID Status Reason Start Date Expiration Date V isits Requested Visits Authorized [id number] Pending Review 06/17/2023 06/16/2025 1 1 Reason for Visit * Mammography (Routine) - Pending Review Specialty Diagnoses / Procedures Referred By Amalia tuttle Referred To Contact Radiology Diagnoses Encounter for screening mammogram for malignant neoplasm of breast Procedures MM MAMMO DIGITAL MADELEINE SCREEN Misty Mary MD [address] [place] [address] Phone: tel: fax: Referral ID Status Reason Start Date Expiration Date V isits Requested Visits Authorized [id number] Pending Review 06/17/2023 06/16/2025 1 1 Encounter Details Date Type Department Care Team (Late st Contact Info) Description 08/26/2023 7:05 AM EDT - 08/26/2023 11:59 PM EDT Hospital Encounter [facility] [address] [place] [address] Misty Gillespie MD [address] [place] [address] Encounter for [...] Author No 08/26/2023 10:23 AM EDT Eli Kiglore RMA * Because of a physical, mental [...] EST Clinical Support [facility] 100 [place] [address] documented as of this encounter Goals Goal [...] EDT Impressions 08/26/2023 7:54 AM EDT Negative ??([id number]) ~ RECOMMENDATION: Routine screening mammogram in 1 [...] the next mammogram, in accordance with the [place] [employer] and the Society of Breast Imaging recommendations. Narrative 08/26/2023 7:54 AM EDT Procedure:MM MAMMO DIGITAL MADELEINE SCREEN BILAT ~ Reason for exam: screening, asymptomatic. Z12.31-Encounter for screening mammogram for malignant neoplasm of [id number] ~ MM MAMMO DIGITAL MADELEINE SCREEN BILAT [...] for screening mammogram for malignant neoplasm of [id number] ~ MM MAMMO DIGITAL MADELEINE SCREEN BILAT Bilateral CC and MLO view(s) were taken. The breast tissue is heterogeneously dense. This may lower thesensitivity of mammography. Prior study comparison: Compared with prior studies the most recentbeing 07/10/22, 10/30/20 No mammographic evidence of malignancy. ~ IMPRESSION: Negative ([id number]) ~ RECOMMENDATION: Routine screening mammogram in 1 [...] the next mammogram, in accordance with the [employer] [place] [employer] and the Society of Breast Imaging recommendations. Misty Gillespie MD IMG MAMMOGRAPHY ORDERABLES Final Result documented in this encounter Visit Diagnoses Diagnosis Encounter for screening mammogram for malignant neoplasm of breast Other screening mammogram documented in this encounter Care Teams Felting Machine Operator Helper Relationship Specialty Start Date End Date Mini Reeder MD [address] [place] [address] PCP - General Family Medicine 08/26/23 Abdifatah Uriarte MD [address] [place] [address] [place] [address] Consulting Physician Obstetrics & Gynecology-Gynecologic Oncology 12/16/19 documented as of this encounter
--- OUTSIDE RECORDS SUMMARY | 2024-03-15 09:52 | XMS_ITS | Encounter Summary ---
Author Organization [place] [address] Care Team Providers Care Vice President Precision Market Insights Name Role Phone Abdifatah Uriarte MD Unavailable [phone] Mini Reeder MD Primary Care Provider [phone] Reason for Visit * Reason Comments Injections Encounter Details Date Type Department Care Team (Latest Contact Info) Description 09/27/2023 9:00 AM EDT Clinical Support [facility] 100 [place] [address] Corey Cruz RMA Cyanocobalamin deficiency [...] Assessment Author No 08/26/2023 10:23 AM EDT Eil Kilgore RMA * Because of a physical, [...] [facility] [address] [place] [address] documented as of this encounter Goals Goal [...] Deltoid documented in this encounter Care Teams Vice President [employer] Ins[employer] Relationship Specialty Start Date End Date Mini Reeder MD [address] [place] [address] PCP - General Family Medicine 08/26/23 Abdifatah Uriarte MD [address] [place] [address] [place] [address] Consulting Physician Obstetrics & Gynecology-Gynecologic Oncology 12/16/19 documented as of this encounter
--- OUTSIDE RECORDS SUMMARY | 2024-03-15 09:52 | XMS_ITS | Encounter Summary ---
Author Organization [place] [address] Care Team Providers Care Furrier Apprentice Name Role Phone Abdifatah Uriarte MD Unavailable [phone] Mini Reeder MD Primary Care Provider [phone] Encounter Details Date Type Department Care Team (Late st Contact Info) Description 02/27/2024 Orders Only [facility] 100 [place] [address] Mini Reeder MD 100 [place] [address] Hematuria, unspecified type (Primary Dx) Social History [...] Clinical Support [facility] 100 [place] [address] documented as of this encounter Goals Goal [...] Growth(A) 03/02/2024 11:20 AM EST PREFERRED LAB [facility] Culture 20,000 CFU/mL Streptococcus agalactiae (Group B) SUSCEPTIB ILITY RESULT 03/02/2024 11:20 AM EST PREFERRED [facility] Comment: isolated in addition to multiple bacterial species consistent with urogenital commensal organisms. No further workup. Urine URINE SPECIMEN COLLECTION, CLEAN CATCH / Unknown 02/27/2024 4:05 PM EST 02/27/2024 4:05 PM EST us Mini Reeder MD MICROBIOLOGY - GENERAL ORDERAB LES Final Result PREFERRED [facility] 1 [facility] , [place] [address] documented in this encounter Visit Diagnoses Diagnosis Hematuria, unspecified type- Primary documented in this encounter Care Teams Furrier Apprentice Relationship Specialty Start Date End Date Mini Reeder MD [address] [place], [place] [id number] PCP - General Family Medicine 08/26/23 Abdifatah Uriarte MD 1 [facility] [place] [address] Consulting Physician Obstetrics & Gynecology-Gynecologic Oncology 12/16/19 documented as of this encounter
--- OUTSIDE RECORDS SUMMARY | 2024-03-15 09:52 | XMS_ITS | Encounter Summary ---
Author Organization [place] [address] Care Team Providers Care Home Health Assistant Name Role Phone Abdifatah Uriarte MD Unavailable [phone] Mini Reeder MD Primary Care Provider [phone] Encounter Details Date Type Department Care Team (Late st Contact Info) Description 08/27/2023 Orders Only [facility] 100 [place] [phone] Mini Reeder MD [address] [place] [address] Vitamin D deficiency (Primary Dx) Social History [...] 04/24/2024 10:45 AM EST Clinical Support [facility] 100 [place] [address] documented as of this encounter [...] deficiency documented in this encounter Care Teams Home Health Assistant Relationship Specialty Start Date End Date Mini Reeder MD [address] [place] [id number] PCP - General Family Medicine 08/26/23 bAdifatah Uriarte MD [address] [place] [address] [place] [address] Consulting Physician Obstetrics & Gynecology-Gynecologic Oncology 12/16/19 documented as of this encounter
--- OUTSIDE RECORDS SUMMARY | 2024-03-15 09:52 | XMS_ITS | Encounter Summary ---
Author Organization [place] [address] Care Team Providers Care Textile Artist Name Role Phone Abdifatah Uriarte MD Unavailable Mini Reeder MD Primary Care Provider [phone] Reason for Visit * Reason Comments Contraception Back Pain x14 years Encounter Details Date Type Department Care Team (Late Contact Info) Description 02/07/2024 9:00 AM EDT Office Visit [facility] [address] [place] [phone] Bud Jones, PARADICHLOROBENZENE TENDER 100 [place] [address] Annual physical exam (Primary Dx); Chronic midline [...] this encounter Progress Notes * Bud Jones, PARADICHLOROBENZENE TENDER - 02/07/2024 9:00 AM EDT Vitals: 02/07/24 [...] Infant COLONOSCOPY 01/12/2018 Dr. Aaron Rocha, with [facility]. Normal colon UPPER GASTROINTESTINAL ENDOSCOPY 12/04/2017 at [...] EST Clinical Support [facility] 100 [place] [address] documented as of this encounter Goals Goal [...] 1,245 pg/mL 02/07/2024 3:28 PM EDT PREFERRED [employer] Folate 9.21 >=4.80 ng/mL 02/07/2024 3:28 PM EDT [facility] Blood VENOUS BLOOD / Unknown Venipuncture / Unknown 02/07/2024 10:16 AM EDT 02/07/2024 10:16 AM EDT Narrative [employer] - 02/07/2024 3:28 PM EDT Ingestion of abimael doses of biotin (>5 mg/day) taken within 8 hours of drawing blood sample can interfere with this immunoassay test. us Bud Jones PARADICHLOROBENZENE TENDER CHEMISTRY ORDERABLES Final R esult [facility] [address] [facility] , [address] [place] [id number] * THYROID STIMULATING HORMONE (02/07/2024 10:16 AM EDT) TSH 1.450 0.270 - 4.200 mcIU/mL 02/07/2024 3:09 PM EDT [employer] Blood VENOUS BLOOD / Unknown Venipuncture / Unknown 02/07/2024 10:16 AM EDT 02/07/2024 10:16 AM EDT Narrative [employer] - 02/07/2024 3:09 PM EDT Ingestion of abimael doses of biotin (>5 mg/day) taken within 8 hours of drawing blood sample can interfere with this immunoassay test. us Bud Jones APRN CHEMISTRY ORDERABLES Final R esult [facility] 1 [facility] , [place] [address] * LIPID SCREEN (02/07/2024 10:16 AM EDT) [facility] Signature Cholesterol 161 <200 mg/dL 02/07/2024 3:09 PM EDT [employer] Comment: < 200 ?Desirable 200 - 239 ? Borderline High >= 240 ?High Triglyceride 74 <150 mg/dL 02/07/2024 3:09 PM EDT [employer] Comment: < 150 ? Normal 150 - 199 ?Borderline High 200 - 499 ?High ??>= 500 ? Very High HDL 52 >=40 mg/dL 02/07/2024 3:09 PM EDT [employer] Comment: ??> 60 ?Optimal 40 - 60 ?Acceptable ?? < 40 ?Low LDL Calculated 95 <100 mg/dL 02/07/2024 3:09 PM EDT [employer] Comment: < 100 ?Optimal 100 - 129 ? Near or above optimal 130 - 159 ? Borderline High 160 - 189 ? High >= 190 ?Very High Non-HDL-C Calculated 109 <=129 mg/dL 02/07/2024 3:09 PM EDT [employer] Comment: <130 ?Desirable 130-159 Above Desirable 160-189 Borderline High 190-219 High >= 220 ??Very High Fasting Specimen? Unknown None 024 3:09 PM EDT [facility] Blood VENOUS BLOOD / Unknown Venipuncture / Unknown 02/07/2024 10:16 AM EDT 02/07/2024 10:16 AM EDT Bud Jones APRN CHEMISTRY ORDERABLES Final R esult Performing Organization Address [facility] de Phone Number [facility] [employer] [facility] [address] [facility] , [place] [address] [facility] 1 [place] [address] * HEMOGLOBIN A1C (02/07/2024 10:16 AM EDT) Hgb A1C 5.3 4.2 - 5.6 % 02/07/2024 2:52 PM EDT [facility] [employer] [facility] Est. Avg Glucose 105 mg/dL 02/07/2024 2:52 PM EDT [facility] Blood VENOUS BLOOD / Unknown Venipuncture / Unknown 02/07/2024 10:16 AM EDT 02/07/2024 10:16 AM EDT Narrative [facility] [employer] [facility] - 02/07/2024 2:52 PM EDT REFERENCE RANGE: [...] ORDERABLES Final R esult Performing Organization Address [facility] Co de Phone Number [facility] [employer] [facility] [address] [facility] , [place] [address] [facility] 1 [place] [address] * COMPREHENSIVE METABOLIC PANEL (02/07/2024 10:16 AM EDT) Sodium 141 136 - 145 mmol/L 02/07/2024 3:09 PM EDT [facility] [employer] [facility] Potassium 4.3 3.5 - 5.0 mmol/L 02/07/2024 [...] mL/min/1.7 3 m2 02/07/2024 3:09 PM EDT [facility] Comment:Estimated GFR was ca lculated using the CKD-EPIcr (2020) equation refit without race. The equation is recommended by the National Kidney Foundation - [place] [employer] of Nephrology Task Force. Blood VENOUS BLOOD / Unknown Venipuncture / Unknown 02/07/2024 10:16 AM EDT 02/07/2024 10:16 AM EDT Bud Jones APRN CHEMISTRY ORDERABLES Final R esult [facility] 1 [facility], [place] [address] [facility] 1 [place] [address] * CBC (02/07/2024 10:16 AM EDT) [facility] WBC 6.8 3.7 - 10.3 x10(3)/mcL [...] Jones APRN HEMATOLOGY ORDERABLES Final Result [facility] [employer] [address] [facility] [place] [address] [place] [address] documented in this encounter Visit [...] Deltoid documented in this encounter Care Teams Textile Artist Relationship Specialty Start Date End Date Mini Reeder MD [address] [place] [address] PCP - General Family Medicine 08/26/23 Abdifatah Uriarte MD 1 [facility] [place] [phone] Consulting Physician Obstetrics & Gynecology-Gynecologic Oncology 12/16/19 documented as of this encounter
--- OUTSIDE RECORDS SUMMARY | 2024-03-15 09:52 | XMS_ITS | Encounter Summary ---
Author Organization [employer] [place] [address] Care Team Providers Care Lye Peel Operator Name Role Phone Abdifatah Uriarte MD Unavailable [phone] Mini Reedre MD Primary Care Provider Reason for Visit * Reason Comments Flank Pain Burning when she uri nates along with some blood when she wipes Other Questions about the depo shot Encounter Details Date Type Department Care Team (Late st Contact Info) Description 02/27/2024 2:45 PM EST Office Visit [facility] 100 [place] [phone] Mini Reeder MD 100 [place] [address] Dysuria (Primary Dx); Hematuria, unspecified type Social [...] EST Clinical Support [facility] 100 [place] [address] documented as of this encounter Goals Goal [...] (NO STAIN) (02/27/2024 4:05 PM EST) Pathologist [facility] Culture Positive Growth(A) 03/02/2024 11:20 AM EST PREFERRED LAB [employer] Culture 20,000 CFU/mL Streptococcus agalactiae (Group B) SUSCEPTIB ILITY RESULT 03/02/2024 11:20 AM EST [employer] Comment: isolated in addition to multiple bacterial species consistent with urogenital commensal organisms. No further workup. Urine URINE SPECIMEN COLLECTION, CLEAN CATCH / Unknown 02/27/2024 4:05 PM EST 02/27/2024 4:05 PM EST us Mini Reeder MD MICROBIOLOGY - GENERAL ORDERAB LES Final Result PREFERRED [employer] 1 [facility], [place] [address] * (ABNORMAL) SEP URINALYSIS POC (02/27/2024 3:57 [...] Trace-Intact (A) Negative 02/27/2024 4:00 PM EST [facility] pH POC 7.0 5.0 - 8.0 pH 02/27/2024 4:00 PM EST [facility] Protein POC Negative Negative mg/dL 02/27/2024 4:00 PM EST [facility] Urobilinogen POC 1.0 0.2, 1.0 02/27/2024 4:00 PM EST [facility] Nitrite POC Negative Negative 02/27/2024 4:00 PM EST [facility] Leuk Est POC Small(A) Negative 4:00 PM EST [facility] Urine URINE SPECIMEN COLLECTION / Unknown 02/27/2024 3:57 PM EST 02/27/2024 4:00 PM EST us Mini Reeder MD POINT OF CARE TEST ORDERABLES Final Result Performing Organization Address City/State/[facility] Co de Phone Number [address] [address] documented in this encounter Visit Diagnoses Diagnosis Dysuria- Primary Hematuria, unspecified type documented in this encounter Orders Nursing Count Last Ordered Date First Orde red Date PERFORM DIPSTICK URINALYSIS 1 02/27/2024 documented in this encounter Care Teams Lye Peel Operator Relationship Specialty Start Date End Date Mini Reeder MD 100 [place] [address] PCP - General Family Medicine 08/26/23 Abdifatah Uriarte MD [address] [place] [address] [place] [phone] Consulting Physician Obstetrics & Gynecology-Gynecologic Oncology 12/16/19 documented as of this encounter
--- OUTSIDE RECORDS SUMMARY | 2024-03-15 09:52 | XMS_ITS | Encounter Summary ---
Author Organization [place] [address] Care Team Providers Care Equipment Operat0R Name Role Phone Abdifatah Uriarte MD Unavailable [phone] Mini Reeder MD Primary Care Provider [phone] Reason for Visit * Reason Comments Medication Refill Encounter Details Date Type Department Care Team (Late Contact Info) Description 11/30/2023 Refill [facility] [place] [address] [place] [address] Migue Anne MD [address] [place] [address] Medication Refill Social History Tobacco Use Types [...] [facility] [address] [place] [address] documented as of this encounter [...] documented as of this encounter Care Teams Equipment Operat0R Relationship Specialty Start Date End Date Mini Reeder MD 100 [place] [address] PCP - General Family Medicine 08/26/23 Abdifatah Uriarte MD [address] [place] [address] [place] [address] Consulting Physician Obstetrics & Gynecology-Gynecologic Oncology 12/16/19 documented as of this encounter
--- OUTSIDE RECORDS SUMMARY | 2024-03-15 09:52 | XMS_ITS | Encounter Summary ---
Author Organization [place] [address] Care Team Providers Care Compressor House Operator Name Role Phone Abdifatah Uriarte MD Unavailable [phone] Mini Reeder MD Primary Care Provider [phone] Reason for Visit * Reason Comments Injections Encounter Details Date Type Department Care Team (Latest Contact Info) Description 11/12/2023 9:00 AM EDT Clinical Support [facility] [address] [place] [phone] La Flynn MA Excessive and frequent [...] Clinical Support [facility] 100 [place] [address] documented as of this encounter Goals Goal [...] Deltoid documented in this encounter Care Teams Compressor House Operator Relationship Specialty Start Date End Date Mini Reeder MD 100 [place], [place] [phone] PCP - General Family Medicine 08/26/23 Abdifatah Uriarte MD [address] [place] [address] [place] [address] Consulting Physician Obstetrics & Gynecology-Gynecologic Oncology 12/16/19 documented as of this encounter
--- OUTSIDE RECORDS SUMMARY | 2024-03-15 09:52 | XMS_ITS | Encounter Summary ---
Author Organization [place] [address] Care Team Providers Care Senior Trial Attorney Name Role Phone Abdifatah Uriarte MD Unavailable [phone] Abdifatah Geiger MD Primary Care Provider [phone] Encounter Details Date Type Department Care Team ([facility] Contact Info) Description 08/19/2023 Orders Only [facility] [address] [place] [phone] Cassy Trujillo, RN Social History Tobacco [...] 04/24/2024 10:45 AM EST Clinical Support [facility] [place] [facility] 100 [place] [address] documented as of this encounter [...] as of this encounter Care Teams Senior Trial Attorney Relationship Specialty Start Date End Date Abdifatah Geiger MD [address] [place] [address] PCP - General Family Medicine 07/17/22 08/25/23 Abdifatah Uriarte MD [address] [place] [address] [place] [address] Consulting Physician Obstetrics & Gynecology-Gynecologic Oncology 12/16/19 documented as of this encounter
--- OUTSIDE RECORDS SUMMARY | 2024-03-15 09:52 | XMS_ITS | Encounter Summary ---
Author Organization [place] [address] Care Team Providers Care Prototype Special Build Name Role Phone Abdifatah Uriarte MD Unavailable [phone] Mini Reeder MD Primary Care Provider [phone] Reason for Visit * Reason Comments Vitamin B12 Deficiency Encounter Details Date Type Department Care Team (Latest Contact Info) Description 11/12/2023 11:00 AM EDT Clinical Support [facility] 100 [place] [address] Viri Gore MA Cyanocobalamin deficiency [...] EST Clinical Support [facility] 100 [place] [address] documented as of this encounter Goals Goal [...] Deltoid documented in this encounter Care Teams Prototype Special Build Relationship Specialty Start Date End Date Mini Reeder MD [address] [place], [place] [phone] PCP - General Family Medicine 08/26/23 Abdifatah Uriarte MD [address] [place] [address] [place] [address] Consulting Physician Obstetrics & Gynecology-Gynecologic Oncology 12/16/19 documented as of this encounter
--- OUTSIDE RECORDS SUMMARY | 2024-03-15 09:53 | XMS_ITS | Encounter Summary ---
Author Organization [place] [address] Care Team Providers Care Tractor Sweeper Operator Name Role Phone Abdifatah Uriarte MD Unavailable [phone] Abdifatah Geiger MD Primary Care Provider [phone] Reason for Visit * Reason Comments Injections Encounter Details Date Type Department Care Team (Latest Contact Info) Description 06/04/2023 3:00 PM EST Clinical Support [facility] [address] [place] [phone] La Flynn MA Excessive and frequent [...] Clinical Support [facility] [place] [address] documented as of this encounter Goals [...] documented as of this encounter Care Teams Tractor Sweeper Operator Relationship Specialty Start Date End Date Abdifatah Geiger MD [address] [place] [address] PCP - General Family Medicine 07/17/22 08/25/23 Abdifatah Uriarte MD 1 [facility] [place] [address] Consulting Physician Obstetrics & Gynecology-Gynecologic Oncology 12/16/19 documented as of this encounter
--- OUTSIDE RECORDS SUMMARY | 2024-03-15 09:53 | XMS_ITS | Encounter Summary ---
Author Organization [place] [address] Care Team Providers Care Past Due Accounts Clerk Name Role Phone Abdifatah Uriarte MD Unavailable Abdifatah Geiger MD Primary Care Provider [phone] Reason for Visit * Reason Onset Date Comments Medication Refill 03/01/2023 Encounter Details Date Type Department Care Team (Late st Contact Info) Description 03/01/2023 Refill [facility] [address] [place] [phone] Misty Gillespie MD [address] [place] [address] Medication Refill Social History Tobacco Use Types [...] Clinical Support [facility] 100 [place] [address] documented as of this encounter [...] documented as of this encounter Care Teams Past Due Accounts Clerk Relationship Specialty Start Date End Date Abdifatah [place] [address] PCP - General Family Medicine 07/17/22 08/25/23 Abdifatah Uriarte MD 1 [facility] [place] [phone] Consulting Physician Obstetrics & Gynecology-Gynecologic Oncology 12/16/19 documented as of this encounter
--- OUTSIDE RECORDS SUMMARY | 2024-03-15 09:53 | XMS_ITS | Encounter Summary ---
Author Organization [place] [address] Care Team Providers Care Loading Shovel Oiler Name Role Phone Abdifatah Uriarte MD Unavailable [phone] Abdifatah Geiger MD Primary Care Provider [phone] Reason for Visit * Reason Onset Date Comments Medication Refill 12/13/2022 Encounter Details Date Type Department Care Team (Late st Contact Info) Description 12/13/2022 Refill [facility] [address] [place] [phone] Misty Gillespie MD [address] [place] [address] Medication Refill Social History Tobacco Use Types [...] Support [facility] 100 [place] [address] documented as of this encounter [...] documented as of this encounter Care Teams Loading Shovel Oiler Relationship Specialty Start Date End Date Abdifatah Geiger MD 1979 [facility] [place] [address] PCP - General Family Medicine 07/17/22 08/25/23 Abdifatah Uriarte MD 1 [facility] [place] [address] Consulting Physician Obstetrics & Gynecology-Gynecologic Oncology 12/16/19 documented as of this encounter
--- OUTSIDE RECORDS SUMMARY | 2024-03-15 09:53 | XMS_ITS | Encounter Summary ---
Author Organization [place] [address] Care Team Providers Care Scoop Operator Name Role Phone Abdifatah Uriarte MD Unavailable [phone] Abdifatah Geiger MD Primary Care Provider [phone] Reason for Visit * Reason Onset Date Comments Medication Refill 12/15/2022 Encounter Details Date Type Department Care Team (Late st Contact Info) Description 12/15/2022 Refill [facility] [place] [address] [place] [address] Migue Anne MD [address] [place] [address] Medication Refill Social History Tobacco Use Types [...] [facility] [place] [facility] 100 [place] [address] documented as of this encounter Goals Goal Patient Goal Type Associated Problems Recent Progress Patient-Stated? Author Maintain a healthy diet, exercise regularly and maintain an ideal body weight General No Teha Rubio MD Stay Tobacco Free Lifestyle No [...] documented as of this encounter Care Teams Scoop Operator Relationship Specialty Start Date End Date Abdifatah Geiger MD [address] [place] [address] PCP - General Family Medicine 07/17/22 08/25/23 Abdifatah Uriarte MD [address] [place] [address] [place] [address] Consulting Physician Obstetrics & Gynecology-Gynecologic Oncology 12/16/19 documented as of this encounter
--- OUTSIDE RECORDS SUMMARY | 2024-03-15 09:53 | XMS_ITS | Encounter Summary ---
Author Organization [place] [address] Care Team Providers Care Rewinder Operator Name Role Phone Abdifatah Uriarte MD Unavailable [phone] Abdifatah Geiger MD Primary Care Provider [phone] Encounter Details Date Type Department Care Team (Late st Contact Info) Description 09/18/2022 [facility] [address] [place] [address] Abdifatah Geiger MD [address] [place] [address] Social History Tobacco Use Types [...] Date fluticasone propionate (FLONASE) 50 mcg/actuation Nasl [place], Suspension 1 [place] by Nasal route 2 times daily for 30 days. 1 Each 2 09/18/2022 3 methylPREDNISolon e (MEDROL DOSPACK) 4 mg Oral Tablets, Dose Pack See package instructions 21 Tablet 09/18/2022 3 documented in this encounter Plan of Treatment Upcoming Encounters Date Type Department Care Team (Late st Contact Info) Description 04/24/2024 10:45 AM EST Clinical Support [facility] 100 [place] [address] documented as of this encounter [...] documented as of this encounter Care Teams Rewinder Operator Relationship Specialty Start Date End Date Abdifatah Geiger MD [address] [place] [phone] PCP - General Family Medicine 07/17/22 08/25/23 Abdifatah Uriarte MD [address] [place] [address] [place] [address] Consulting Physician Obstetrics & Gynecology-Gynecologic Oncology 12/16/19 documented as of this encounter
--- OUTSIDE RECORDS SUMMARY | 2024-03-15 09:53 | XMS_ITS | Encounter Summary ---
Author Organization [place] [address] Care Team Providers Care B2B Managed Service Sales Exec Name Role Phone Abdifatah Uriarte MD Unavailable [phone] Abdifatah Geiger MD Primary Care Provider [phone] Reason for Visit * Reason Comments Medication Refill Encounter Details Date Type Department Care Team (Late st Contact Info) Description 09/14/2022 Refill [facility] [employer] [address] [place] [address] Migue Anne MD [address] [place] [address] Medication Refill Social History Tobacco Use Types [...] 04/24/2024 10:45 AM EST Clinical Support [facility] 100 [facility] [place] [address] documented as of this encounter [...] documented as of this encounter Care Teams B2B Managed Service Sales Exec Relationship Specialty Start Date End Date Abdifatah Geiger MD [address] [place] [phone] PCP - General Family Medicine 07/17/22 08/25/23 Abdifatah Uriarte MD [address] [place] [address] [place] [address] Consulting Physician Obstetrics & Gynecology-Gynecologic Oncology 12/16/19 documented as of this encounter
--- OUTSIDE RECORDS SUMMARY | 2024-03-15 09:53 | XMS_ITS | Encounter Summary ---
Author Organization [place] [address] Care Team Providers Care Cryogenics Repairer Name Role Phone Abdifatah Uriarte MD Unavailable [phone] Abdifatah Geiger MD Primary Care Provider [phone] Reason for Visit * Reason Comments Injections Encounter Details Date Type Department Care Team (Latest Contact Info) Description 03/07/2023 9:00 AM EST Clinical Support [facility] [place] [address] [place] [phone] La Flynn MA Excessive and frequent [...] [facility] [address] [facility] [address] documented as of [...] Last Ordered Date First Ordered Date medroxyPROGESTERone (DEPO-VT OVERA) injection 150 mg 1 03/07/2023 documented in this encounter Additional Health Concerns Assessment Noted Time PHQ-9 Depression Total Score: 2 10/07/19 18 8:00 AM EDT PHQ-2 Depression Total Score: 2 10/07/19 18 8:00 AM EDT documented as of this encounter Care Teams Cryogenics Repairer Relationship Specialty Start Date End Date Abdifatah Geiger MD [address] [place] [phone] PCP - General Family Medicine 07/17/22 08/25/23 Abdifatah Uriarte MD [address] [place] [address] [place] [address] Consulting Physician Obstetrics & Gynecology-Gynecologic Oncology 12/16/19 documented as of this encounter
--- OUTSIDE RECORDS SUMMARY | 2024-03-15 09:53 | XMS_ITS | Encounter Summary ---
Author Organization [place] [address] Care Team Providers Care Rv Repairer Name Role Phone Abdifatah Uriarte MD Unavailable [phone] Abdifatah Geiger MD Primary Care Provider [phone] Reason for Visit * Reason Comments Medication Refill Encounter Details Date Type Department Care Team (Late st Contact Info) Description 08/17/2022 Refill [facility] [place] [address] [place] [address] Migue Anne MD [address] [place] [address] Medication Refill Social History Tobacco Use Types [...] 04/24/2024 10:45 AM EST Clinical Support [facility] 100 [place] [phone] documented as of this encounter Goals Goal [...] documented as of this encounter Care Teams Rv Repairer Relationship Specialty Start Date End Date Abdifatah Geiger MD [address] [place] [address] PCP - General Family Medicine 07/17/22 08/25/23 Abdifatah Uriarte MD [address] [place] [address] [place] [address] Consulting Physician Obstetrics & Gynecology-Gynecologic Oncology 12/16/19 documented as of this encounter
--- OUTSIDE RECORDS SUMMARY | 2024-03-15 09:53 | XMS_ITS | Encounter Summary ---
Author Organization [facility] [place] [address] Care Team Providers Care Methane Gas Collection System Operator Name Role Phone Abdifatah Uriarte MD Unavailable [phone] Abdifatah Geiger MD Primary Care Provider [phone] Encounter Details Date Type Department Care Team [...] 04/24/2024 10:45 AM EST Clinical Support [facility] [address] [place] [address] documented as of this encounter [...] documented as of this encounter Care Teams Methane Gas Collection System Operator Relationship Specialty Start Date End Date Abdifatah Geiger MD [address] [place] [phone] PCP - General Family Medicine 07/17/22 08/25/23 Abdifatah Uriarte MD [address] [place] [address] [place] [address] Consulting Physician Obstetrics & Gynecology-Gynecologic Oncology 12/16/19 documented as of this encounter
--- OUTSIDE RECORDS SUMMARY | 2024-03-15 09:53 | XMS_ITS | Encounter Summary ---
Author Organization [place] [address] Care Team Providers Care Receivables Specialist Name Role Phone Abdifatah Uriarte MD Unavailable [phone] Abdifatah Geiger MD Primary Care Provider [phone] Reason for Visit * Reason Onset Date Comments Results 06/24/2023 labs Follow-up 06/24/2023 ED f/u Encounter Details Date Type Department Care Team (Late st Contact Info) Description 06/24/2023 Telephone [facility] [address] [place] [address] Abdifatah Geiger MD [address] [place] [address] Results (labs); Follow-up (ED f/u) [...] the test: Hospital Where was test performed: [facility] Additional Notes: Pt states she went [...] 04/24/2024 10:45 AM EST Clinical Support [facility] [address] [place] [address] documented as of this encounter [...] documented as of this encounter Care Teams Receivables Specialist Relationship Specialty Start Date End Date Abdifatah Geiger MD [address] [place] [address] PCP - General Family Medicine 07/17/22 08/25/23 Abdifatah Uriarte MD [address] [place] [address] [place] [address] Consulting Physician Obstetrics & Gynecology-Gynecologic Oncology 12/16/19 documented as of this encounter
--- OUTSIDE RECORDS SUMMARY | 2024-03-15 09:53 | XMS_ITS | Encounter Summary ---
Author Organization [place] [address] Care Team Providers Care Water Treatment Plant Engineer Name Role Phone Abdifatah Uriarte MD Unavailable [phone] Abdifatah Geiger MD Primary Care Provider [phone] Reason for Visit * Reason Comments Dental Pain Abscess that started yesterday Encounter Details Date Type Department Care Team (Late st Contact Info) Description 11/26/2022 7:29 PM EDT - 11/26/2022 8:12 PM EDT Emergency [facility] [address] [facility] [place], [place] [id number] Pamela Brown MD 1 [facility] [place] [address] Dental infection (Primary Dx) Discharge [...] through Care Everywhere. * DENTAL PAIN ED ([place]) documented in this encounter Medications at Time [...] Means Destination Comment s Home or Self [facility] documented in this encounter ED Notes * ArmaanLaurenPACO - 11/26/2022 7:18 PM EDT CHIEF COMPLAINT Chief Complaint Patient presents with Dental Pain Abscess that started yesterday HPI I am seeing this patient with Dr. Pebbles rBown MD who is available for consultation during this encounter. Gardenia Childress is a 42 y.o. female with previous medical history as described below most significantly notable for biliary atresia, migraines who [facility]. Patient [...] old. COLONOSCOPY 01/12/2018 Dr. Aaron Rocha, with [facility]. Normal colon UPPER GASTROINTESTINAL ENDOSCOPY [...] 04/24/2024 10:45 AM EST Clinical Support [facility] [address] [place] [address] documented as of this encounter Goals Goal [...] documented as of this encounter Care Teams Water Treatment Plant Engineer Relationship Specialty Start Date End Date Abdifatah Geiger MD [address] [place] [phone] PCP - General Family Medicine 07/17/22 08/25/23 Abdifatah Uriarte MD [address] [place] [address] [place] [address] Consulting Physician Obstetrics & Gynecology-Gynecologic Oncology 12/16/19 documented as of this encounter
--- OUTSIDE RECORDS SUMMARY | 2024-03-15 09:53 | XMS_ITS | Encounter Summary ---
Author Organization [place] [address] Care Team Providers Care Linter Operator Name Role Phone Abdifatah Uriarte MD Unavailable [phone] Abdifatah Geiger MD Primary Care Provider Reason for Visit * Reason Comments Follow-up pts work did blood w ork and wants it looked at - new patient Encounter Details Date Type Department Care Team (Late Contact Info) Description 12/17/2022 12:00 PM EDT Office Visit [facility] [address] [place] [address] Michelle Robert APRN [address] [place] [address] Cervical pain (neck) (Primary Dx) [...] through Care Everywhere. * Neck Pain Exercises (Swedish) documented in this encounter Ordered Prescriptions Prescription [...] Care Annual PE was completed with her PATIENT REGISTRATION MANAGER in May Labs were obtained at her [...] 04/24/2024 10:45 AM EST Clinical Support [facility] [address] [place] [phone] documented as of this encounter Goals Goal [...] ODONTOID C-SPINE, ??12/17/2022 3:53 PM CLINICAL HISTORY: ??M54.8-[id number]-TKC-10-CM COMPARISON: ??07/16/2018 PROCEDURE COMMENTS: AP, lateral, and odontoid views of the cervical spine. FINDINGS: No fracture or malalignment. Soft tissues unremarkable. Minimal degenerative change with minimal disc space narrowing C5-C6 and minimal facet disease stable from prior Procedure Note Abdifatah Flores MD - 12/17/2022 AP, LATERAL, AND ODONTOID C-SPINE, 12/17/2022 3:53 PM CLINICAL HISTORY: M54.0-Iqbpywhsopr-CCK-10-CM COMPARISON: 07/16/2018 PROCEDURE COMMENTS: AP, lateral, and [...] of the ordering clinician. Michelle Xiao Jakob ALLEY WORKER IMG DIAGNOSTIC IMAGING ORDERABLES Final Result documented [...] documented as of this encounter Care Teams Linter Operator Relationship Specialty Start Date End Date Abdifatah Geiger MD [address] [place] [phone] PCP - General Family Medicine 07/17/22 08/25/23 Abdifatah Uriarte MD [address] [place] [address] [place] [address] Consulting Physician Obstetrics & Gynecology-Gynecologic Oncology 12/16/19 documented as of this encounter
--- OUTSIDE RECORDS SUMMARY | 2024-03-15 09:53 | XMS_ITS | Encounter Summary ---
Author Organization [employer] [place] [address] Care Team Providers Care Field Operations Manager Name Role Phone Abdifatah Uriarte MD Unavailable [phone] Abdifatah Geiger MD Primary Care Provider [phone] Reason for Visit * Reason Onset Date Comments Medication Refill 01/05/2023 Encounter Details Date Type Department Care Team (Late st Contact Info) Description 01/05/2023 Refill [facility] [address] [place] [address] Migue Anne MD [address] [place] [address] Medication Refill Social History Tobacco Use Types [...] 10:45 AM EST Clinical Support [facility] [address] [place] [address] documented as of this encounter [...] documented as of this encounter Care Teams Field Operations Manager Relationship Specialty Start Date End Date Abdifatah Geiger MD [address] [place] [phone] PCP - General Family Medicine 07/17/22 08/25/23 Abdifatah Uriarte MD [address] [place] [address] [place] [phone] Consulting Physician Obstetrics & Gynecology-Gynecologic Oncology 12/16/19 documented as of this encounter
--- OUTSIDE RECORDS SUMMARY | 2024-03-15 09:53 | XMS_ITS | Encounter Summary ---
Author Organization [facility] [address] Care Team Providers Care Service Line Bus Cleaner Name Role Phone Abdifatah Uriarte MD Unavailable [phone] Abdifatah Geiger MD Primary Care Provider [phone] Encounter Details Date Type Department Care Team [...] 04/24/2024 10:45 AM EST Clinical Support [facility] [address] [place] [address] documented as of this encounter Goals Goal [...] documented as of this encounter Care Teams Service Line Bus Cleaner Relationship Specialty Start Date End Date Abdifatah Geiger MD [address] [place] [phone] PCP - General Family Medicine 07/17/22 08/25/23 Abdifatah Uriarte MD [address] [place] [address] [place] [address] Consulting Physician Obstetrics & Gynecology-Gynecologic Oncology 12/16/19 documented as of this encounter
--- OUTSIDE RECORDS SUMMARY | 2024-03-15 09:53 | XMS_ITS | Encounter Summary ---
Author Organization [place] [address] Care Team Providers Care Debt Management Counselor Name Role Phone Abdifatah Uriarte MD Unavailable [phone] Abdifatah Geiger MD Primary Care Provider [phone] Reason for Visit * Reason Comments Injections Depo-Provera Encounter Details Date Type Department Care Team (Latest Contact Info) Description 10/01/2022 9:00 AM EDT Clinical Support [facility] [place] [id number] [place] [phone] Sadaf Cobian Michelle, ON LICENSE OF [facility] [address] [facility] [address] [place] [address] Excessive and frequent menstruation (Primary Dx) Social [...] 10:45 AM EST Clinical Support [facility] [address] [place] [address] documented as of this encounter [...] documented as of this encounter Care Teams Debt Management Counselor Relationship Specialty Start Date End Date Abdifatah Geiger MD [address] [place] [phone] PCP - General Family Medicine 07/17/22 08/25/23 Abdifatah Uriarte MD [address] [place] [address] [place] [address] Consulting Physician Obstetrics & Gynecology-Gynecologic Oncology 12/16/19 documented as of this encounter
--- OUTSIDE RECORDS SUMMARY | 2024-03-15 09:53 | XMS_ITS | Encounter Summary ---
Author Organization [place] [address] Care Team Providers Care Food Production Machine Operator Name Role Phone Abdifatah Uriarte MD Unavailable [phone] Abdifatah Geiger MD Primary Care Provider [phone] Reason for Referral * Echo (Routine) - Closed Specialty Diagnoses / Procedures Referred By Contac t Referred To Contact Radiology Diagnoses ASD (atrial septal defect) Palpitations Chest discomfort Procedures EC ECHOCARDIOGRAM COMPLETE W DOPPLER AND COLOR FLOW MAPPING Migue Anne MD [address] [place] [address] Phone: tel: fax: Referral ID Status Reason Start Date Expiration Date Visits Re quested Visits Authorized [id number] Closed 12/17/2022 12/16/2024 1 1 Reason for Visit * Echo (Routine) - Closed Specialty Diagnoses / Procedures Referred By Contac t Referred To Contact Radiology Diagnoses ASD (atrial septal defect) Palpitations Chest discomfort Procedures EC ECHOCARDIOGRAM COMPLETE W DOPPLER AND COLOR FLOW MAPPING Migue Anne MD [address] [place] [address] Phone: tel: fax: Referral ID Status Reason Start Date Expiration Date Visits Re quested Visits Authorized [id number] Closed 12/17/2022 12/16/2024 1 1 Encounter Details Date Type Department Care Team (Latest Contact Info) Description 06/17/2023 7:08 AM EST - 06/17/2023 11:59 PM [facility] Hospital Encounter [facility] [address] [place] [address] Migue Anne MD [address] [facility] [place] [address] ASD (atrial septal defect); [...] documented as of this encounter Care Teams Food Production Machine Operator Relationship Specialty Start Date End Date Abdifatah Geiger MD [address] [place] [phone] PCP - General Family Medicine 07/17/22 08/25/23 Abdifatah Uriarte MD [address] [place] [address] [place] [address] Consulting Physician Obstetrics & Gynecology-Gynecologic Oncology 12/16/19 documented as of this encounter
--- OUTSIDE RECORDS SUMMARY | 2024-03-15 09:53 | XMS_ITS | Encounter Summary ---
Author Organization [place] [address] Care Team Providers Care Safety Deposit Supervisor Name Role Phone Abdifatah Uriarte MD Unavailable Abdifatah Geiger MD Primary Care Provider [phone] Reason for Visit * Reason Comments Injections Encounter Details Date Type Department Care Team (Latest Contact Info) Description 12/17/2022 10:00 AM EDT Clinical Support [facility] [address] [place] [phone] Chelsea Agee, HERIBERTO Excessive and frequent [...] 04/24/2024 10:45 AM EST Clinical Support [facility] [address] [place] [address] documented as of this encounter [...] documented as of this encounter Care Teams Safety Deposit Supervisor Relationship Specialty Start Date End Date Abdifatah Geiger MD [address] [place] [phone] PCP - General Family Medicine 07/17/22 08/25/23 Abdifatah Uriarte MD [address] [place] [address] [place] [address] Consulting Physician Obstetrics & Gynecology-Gynecologic Oncology 12/16/19 documented as of this encounter
--- OUTSIDE RECORDS SUMMARY | 2024-03-15 09:53 | XMS_ITS | Encounter Summary ---
Author Organization [facility] [place] [address] Care Team Providers Care Substance Abuse Nurse Name Role Phone Thea Rubio MD Primary Care Provider [phone] Abdifatah Uriarte MD Unavailable [phone] Encounter Details Date Type Department Care Team [...] 04/24/2024 10:45 AM EST Clinical Support [facility] [address] [place] [address] documented as of this encounter [...] documented as of this encounter Care Teams Substance Abuse Nurse Relationship Specialty Start Date End Date Thea Rubio MD PCP - General Family Medicine 09/13/14 07/16/22 Abdifatah Uriarte MD [address] [place] [address] [place] [address] Consulting Physician Obstetrics & Gynecology-Gynecologic Oncology 12/16/19 documented as of this encounter
--- OUTSIDE RECORDS SUMMARY | 2024-03-15 09:53 | XMS_ITS | Encounter Summary ---
Author Organization [place] [address] Care Team Providers Care Mini Shifter Name Role Phone Abdifatah Uriarte MD Unavailable [phone] Abdifatah Geiger MD Primary Care Provider [phone] Reason for Visit * Reason Comments Chest Pain Complains of chest p ain and shortness of breath for 10 minutes. CPTA-none Encounter Details Date Type Department Care Team (Late st Contact Info) Description 06/21/2023 9:25 AM EST - 06/21/2023 12:28 PM EST [facility] [address] [place], [place] [phone] Genaro Sanchez MD [address] [place] [address] Chest pain, unspecified type (Primary Dx) [...] Care Everywhere. * Chest Pain Discharge Instructions (Ghanaian) documented in this encounter Medications at Time [...] Means Destination Comment s Home or Self Long Term documented in [...] GARDENIA CHILDRESS Department: DEPID Room: Gender: Female Managing Cognitive Engineer: [facility] : 1980 Requested By: [facility] Order Number: [id number] Reading MD: Genaro Monte MD Measurements Intervals [place] Rate: 71 P: 66 IN: 129 QRS: 85 QRSD: 101 T: 44 [...] sinus rhythm at a rate of 71. IN interval is appropriate 129. QRS is narrow [...] EST Clinical Support [facility] [address] [place] [address] documented as of this encounter [...] METABOLIC PANEL STAT 06/21/2023 10:04 AM EST [id number] A/B Routine 06/21/2023 9:4 7 AM EST XR CHEST AP PORTABLE STAT 06/21/2023 9:44 AM EST EK EKG 12 LEAD STAT 06/21/2023 9:26 AM EST documented in this encounter Results * SCANNED EKG (06/23/2023 9:53 AM EST) Anatomical Region Laterality Modality Other 06/23/2023 9:53 AM EST us Unknown Provider IMG ECG ORDERABLES Final Result * TROPONIN-T HIGH SENSITIVITY 2HR (06/21/2023 11:52 AM EST) vd-ePtxmeill-H 2HR <6 <14 ng/L 06/21/2023 12:16 PM EST [facility] Comment:See the website [employer] for rule out SD care pathway, conditions other than AMI that can cause elevated hs cTnT, and comparison of values from the 4th and 5th generation Olaf tests. https://askmayoexpert.[facility].org/topic/clinical-answers/gnt-73769131/cpm-203 00335 hs-cTnT 2Hr Delta from Baseline 06/21/2023 12:16 PM EST [facility] Comment:Unable to calculate, result is outside instrument's measuring range. Blood VENOUS BLOOD / Unknown Venipuncture / Unknown 06/21/2023 11:52 AM EST 06/21/2023 11:53 AM EST Narrative [facility] - 06/21/2023 12:16 PM EST Ingestion of abimael doses of biotin (>5 mg/day) taken within 8 hours of drawing blood sample can interfere with this immunoassay test. us Genaro Sanchez MD CHEMISTRY ORDERABLES Final Resu lt Performing Organization Address [facility] de Phone Number [facility] [address] [place] [address] * HUMAN CHORIONIC GONADOTROPIN QUANTITATIVE (06/21/2023 10:04 AM EST) Hcg Quant <1 <5 mIU/mL 06/21/2023 10:27 AM EST [facility] Blood VENOUS BLOOD / Unknown Venipuncture / Unknown 06/21/2023 10:04 AM EST 06/21/2023 10:08 AM EST Narrative [facility] - 06/21/2023 10:27 AM EST [...] ORDERABLES Final Resu lt Performing Organization Address [facility]/State/ZIP Co de Phone Number [facility] [address] [place] [address] * TROPONIN-T HIGH SENSITIVITY BASELINE W/ REFLEX (06/21/2023 10:04 AM EST) Pathologist [facility] kw-wZlfvbjlt-O <6 <14 ng/L 06/21/2023 10:32 AM EST [facility] Comment:See the website [employer] for rule out SD care pathway, conditions other than AMI that can cause elevated hs cTnT, and comparison of values from the 4th and 5th generation Olaf tests. https://askmayoexpert.[facility].org/topic/clinical-answers/gnt-49616159/cpm-203 [address] Blood VENOUS BLOOD / Unknown Venipuncture / Unknown 06/21/2023 10:04 AM EST 06/21/2023 10:08 AM EST Narrative [facility] - 06/21/2023 10:32 AM EST Ingestion of abimael doses of biotin (>5 mg/day) taken within 8 hours of drawing blood sample can interfere with this immunoassay test. us Genaro Sanchez MD CHEMISTRY ORDERABLES Final Resu lt [facility] [address] [place] [phone] * (ABNORMAL) BASIC METABOLIC PANEL (06/21/2023 10:04 AM EST) Pathologist [facility] Sodium 140 136 - 145 mmol/L 06/21/2023 10:27 AM EST [facility] Potassium 3.5 3.5 - 5.0 mmol/L 06/21/2023 10:27 AM EST [facility] Chloride 106 98 - 107 mmol/L 06/21/2023 10:27 AM EST [facility] Total CO2 20(L) 22 - 29 mmol/L 06/21/2023 10:27 AM EST [facility] Anion Gap 14 7 - 16 mmol/L 06/21/2023 10:27 AM EST [facility] Calcium 9.4 8.6 - 10.4 mg/dL 06/21/2023 10:27 AM [facility] Glucose Lvl 87 70 - 99 mg/dL 06/21/2023 10:27 AM [facility] BUN 4(L) 6 - 20 mg/dL 06/21/2023 10:27 AM [facility] Creatinine 0.73 0.51 - 1.30 mg/dL 06/21/2023 10:27 AM [facility] eGFR (CKD-EPIcr 2020) 105 >=60 mL/min/1.7 3 m2 06/21/2023 10:27 AM [facility] Comment:Estimated GFR was ca lculated using the CKD-EPIcr (2020) equation refit without race. The equation is recommended by the National Kidney Foundation - [place] [employer] of Nephrology Task Force. Blood VENOUS BLOOD / Unknown Venipuncture / Unknown 06/21/2023 10:04 AM EST 06/21/2023 10:08 AM EST us Genaro Sanchez MD CHEMISTRY ORDERABLES Final Resu lt [facility] [address] [place], [place] [phone] * (ABNORMAL) CBC (06/21/2023 10:04 AM EST) WBC 6.5 3.7 - 10.3 x10(3)/mcL 06/21/2023 10:11 AM [facility] RBC 4.86 3.90 - 5.20 x10(6)/mcL 06/21/2023 10:11 AM [facility] Hgb 13.8 11.2 - 15.7 g/dL 06/21/2023 10:11 AM [facility] Hct 41.1 34.0 - 45.0 % 06/21/2023 10:11 AM [facility] MCV 84.6 80.0 - 100.0 fL 06/21/2023 10:11 AM [facility] MCH 28.4 26.0 - 34.0 pg 06/21/2023 10:11 AM [facility] MCHC 33.6 30.7 - 35.5 g/dL 06/21/2023 10:11 AM [facility] RDW 12.8 <=14.9 % 06/21/2023 10:11 AM [facility] Platelet 394(H) 155 - 369 x10(3)/mcL 06/21/2023 10:11 AM [facility] MPV 9.2 8.8 - 12.5 fL 06/21/2023 10:11 AM [facility] Blood VENOUS BLOOD / Unknown Venipuncture / Unknown 06/21/2023 10:04 AM EST 06/21/2023 10:08 AM EST us Genaro Sanchez MD HEMATOLOGY ORDERABLES Final Res ult [facility] [address] [place] [address] * QFAB-DAS0-KER A/B (06/21/2023 9:47 AM EST) CORONAVIRUS [id number]-XDCB-GTN-2 Not Detected Not Detected 06/21/2023 10:20 AM [facility] Influenza A DNA Not Detected Not Detected 06/21/2023 10:20 AM [facility] Influenza B DNA Not Detected Not Detected 06/21/2023 10:20 AM [facility] Swab BOTH ANTERIOR NARES / Unknown 06/21/2023 9:47 AM EST 06/21/2023 9:49 AM EST Narrative [facility] - 06/21/2023 10:20 AM EST [...] and Patients: KAYLYNN Fact Sheet for Providers: https://www.fda.gov/media/537529/download KAYLYNN Fact Sheet for Patients: https://www.[employer].gov/media/017710/download us Genaro Sanchez MD MICROBIOLOGY - GENERAL ORDERABL ES Final Result [facility] [address] [place] [address] * XR CHEST AP PORTABLE [...] AM EST Impressions 06/21/2023 9:42 AM EST ?[facility] ? Test Date: ?2023-06-21 Pat Name: ? GARDENIA HANKST ?Department: ?? DEPID ? Room: ? 06 Gender: ? Female ? Managing Cognitive Engineer: ?? 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 Requested By: [facility] Order Number: [id number] ?Reading MD: ?? Genaro Monte MD ? Measurements Intervals ?[place] ? Rate: ? 71 ? P: ?66 IN: ? 129 ?QRS: ?85 QRSD: ? 101 ?T: ?44 QT: ? 373 ? QTc: ?406 ? Interpretive Statements SINUS RHYTHM WITH SINUS ARRHYTHMIA INCOMPLETE RIGHT BUNDLE BRANCH BLOCK Electronically Signed On 06-21-2023 9:42:07 EST by Genaro Monte MD Narrative Procedure Note Genaro Monte MD - 06/21/[address] [facility] Test Date: 2023-06-21 Pat Name: GARDENIA CHILDRESS Department: DEPID Room: Gender: Female Managing Cognitive Engineer: [facility] : 1980 Requested By: [facility] Order Number: [id number] Reading MD: Genaro Monte MD Measurements Intervals [place] Rate: 71 P: 66 IN: 129 QRS: 85 QRSD: 101 T: 44 [...] documented as of this encounter Care Teams Mini Shifter Relationship Specialty Start Date End Date Abdifatah Geiger MD [address] [place] [phone] PCP - General Family Medicine 07/17/22 08/25/23 Abdifatah Uriarte MD [address] [place] [address] [place] [address] Consulting Physician Obstetrics & Gynecology-Gynecologic Oncology 12/16/19 documented as of this encounter
--- OUTSIDE RECORDS SUMMARY | 2024-03-15 09:53 | XMS_ITS | Encounter Summary ---
Author Organization [place] [address] Care Team Providers Care Body Piercer Name Role Phone Abdifatah Uriarte MD Unavailable [phone] Abdifatah Geiger MD Primary Care Provider [phone] Reason for Referral * Mammography (Routine) - Pending Review Specialty Diagnoses / Procedures Referred By Contac t Referred To Contact Radiology Diagnoses Encounter for screening mammogram for malignant neoplasm of breast Procedures MM MAMMO DIGITAL MADELEINE SCREEN Misty Mary MD [address] [place] [address] Phone: tel: fax: Referral ID Status Reason Start Date Expiration Date V isits Requested Visits Authorized [id number] Pending Review 06/17/2023 06/16/2025 1 1 Reason for Visit * Reason Comments Gynecologic Exam Encounter Details Date Type Department Care Team (Late st Contact Info) Description 06/17/2023 9:00 AM EST Office Visit [facility] [address] [place] [address] Misty Gillespie MD [address] [place] [facility] Well woman exam with routine gynecological exam [...] Gillespie MD - 06/17/2023 9:00 AM EST CHUTE BUILDER ANNUAL EXAM HPI: Patient is a 43 [...] old. COLONOSCOPY 01/12/2018 Dr. Aaron Rocha, with [facility]. Normal colon UPPER GASTROINTESTINAL ENDOSCOPY 12/04/2017 [...] Well woman exam with routine gynecological exam [facility] CHUTE BUILDER CYTOLOGY ORDER 2. Encounter for screening mammogram for malignant neoplasm of breast MM MAMMO DIGITAL MADELEINE SCREEN BILAT - RTO 1 year or prn Misty Gillespie MD documented in this encounter Plan of Treatment Upcoming Encounters Date Type Department Care Team (Late st Contact Info) Description 04/24/2024 10:45 AM EST Clinical Support [facility] [address] [place] [address] documented as of this encounter Goals Goal Patient Goal Type Associated Problems Recent Progress Patient-Stated? Author Maintain a healthy diet, exercise regularly and maintain an ideal body weight General No Thea Rubio MD Stay Tobacco Free Lifestyle No Thea Rubio MD documented as of this encounter Procedures Procedure Name Priority Date/Time Associated Diagnosis Comments CHUTE BUILDER CYTOLOGY REQUEST (PAP ONLY) Routine 06/17/2023 9:36 AM EST Well woman exam with routine gynecological exam [facility] CHUTE BUILDER CYTOLOGY ORDER Routine 06/17/2023 9:36 AM EST Well woman exam with routine gynecological exam HPV HIGH RISK Routine 06/17/2023 9:36 AM EST Well woman exam with routine gynecological exam documented in this encounter Results * MM MAMMO DIGITAL MADELEINE SCREEN BILAT (08/26/2023 7:37 AM EDT) Anatomical Region Laterality Modality Breast Bilateral Mammography 08/26/2023 7:54 AM EDT Impressions 08/26/2023 7:54 AM EDT Negative ??([id number]-3) ~ RECOMMENDATION: Routine screening mammogram in 1 [...] mammogram, in accordance with the [employer] [place] [employer] and the Society of Breast Imaging recommendations. Narrative 08/26/2023 7:54 AM EDT Procedure:MM MAMMO DIGITAL MADELEINE SCREEN BILAT ~ Reason for exam: screening, asymptomatic. Z12.31-Encounter for screening mammogram for malignant neoplasm of ydangk-GFE-92-CM ~ MM MAMMO DIGITAL MADELEINE SCREEN BILAT [...] for screening mammogram for malignant neoplasm of yhjbyc-OUC-92-CM ~ MM MAMMO DIGITAL MADELEINE SCREEN BILAT Bilateral CC and MLO view(s) were taken. The breast tissue is heterogeneously dense. This may lower thesensitivity of mammography. Prior study comparison: Compared with prior studies the most recentbeing 07/10/22, 10/30/20 No mammographic evidence of malignancy. ~ IMPRESSION: Negative ([id number]-4) ~ RECOMMENDATION: Routine screening mammogram in 1 [...] mammogram, in accordance with the [employer] [place] [employer] and the Society of Breast Imaging recommendations. Misty Gillespie MD IM MAMMOGRAPHY ORDERABLES Final Result * HPV HIGH RISK (06/17/2023 9:36 AM EST) HPV HR Not Detected Not Detected 06/18/2023 3:19 PM EST [employer] Thin Prep SPECIMEN FROM UTERINE CERVIX / Unknown 06/17/2023 9:36 AM EST 06/17/2023 9:36 AM EST Narrative [employer] - 06/18/2023 3:19 PM EST This test [...] Result [facility] , [address] [place] [address] * CHUTE BUILDER CYTOLOGY REQUEST (PAP ONLY) (06/17/2023 9:36 AM EST) CASE REPORT Gynecologic Cytology Report ? Case: [id number] ? Authorizing Provider: ??Misty Gillespie MD ? Collected: ? 06/17/2023 0936 ? [id number] ?Received: ?06/17/2023 0936 ? First Screen: ?Diego Raza, ? CT ? Specimen: ?LIQUID-BASED PAP - CERVICAL/ENDOCERV ICAL, Cervix, Endocervical ? 06/19/2023 11:44 AM EST [facility] CORRECTION HISTORY . 06/19/2023 11:44 AM EST [facility] PAP FINAL DIAGNOSIS Negative for intraepithelial lesion or malignancy 06/19/2023 11:44 AM EST [facility] OSCOPIC DESCRIPTION Microscopic examination is performed and the findings corroborate the diagnosis. 06/19/2023 11:44 AM EST [facility] PAP SMEAR ADEQUACY Satisfactory for evaluation 06/19/2023 11:44 AM EST [facility] ENDOCERVICAL T-ZONE Transformation zone present 06/19/2023 11:44 AM EST [facility] EMBEDDED IMAGES 11:44 AM EST [facility] PAP DISCLAIMER The Pap Smear is a screening test that aids in the detection of cervical cancer and cancer precursors. Both false positive and false negative results can occur. The test should be used at regular intervals, and positive results should be confirmed before definitive therapy. Processed using the ThinPrep Appliance Service Technician Automated cytology screening device (Provasculon). 06/19/2023 11:44 AM EST [facility] PAP OTHER FINDINGS Many acute inflammatory cells noted. 06/19/2023 11:44 AM EST [facility] Thin Prep ENDOCERVICAL STRUCTURE / Unknown 06/17/2023 9:36 AM EST 06/17/2023 9:36 AM EST us Misty Gillespie MD CYTOLOGY ORDERABLES Final R esult [facility] [address] [place] [address] documented in this encounter Visit Diagnoses Diagnosis [...] documented as of this encounter Care Teams Body Piercer Relationship Specialty Start Date End Date Abdifatah Geiger MD [address] [place] [phone] PCP - General Family Medicine 07/17/22 08/25/23 Abdifatah Uriarte MD [address] [facility] [place] [address] Consulting Physician Obstetrics & Gynecology-Gynecologic Oncology 12/16/19 documented as of this encounter
--- OUTSIDE RECORDS SUMMARY | 2024-03-15 09:53 | XMS_ITS | Encounter Summary ---
Author Organization [place] [address] Care Team Providers Care Administrator Pesticide Name Role Phone Abdifatah Uriarte MD Unavailable [phone] Abdifatah Geiger MD Primary Care Provider [phone] Reason for Visit * Reason Onset Date Comments Medication Refill 05/26/2023 Encounter Details Date Type Department Care Team (Late st Contact Info) Description 05/26/2023 Refill [facility] [address] [place] [address] Misty Gillespie MD [address] [place] [address] Medication Refill Social History Tobacco Use Types [...] Support [facility] [address] [place] [address] documented as of this encounter [...] documented as of this encounter Care Teams Administrator Pesticide Relationship Specialty Start Date End Date Abdifatah Geiger MD [address] [place] [phone] PCP - General Family Medicine 07/17/22 08/25/23 Abdifatah Uriarte MD 1 [facility] [place] [address] Consulting Physician Obstetrics & Gynecology-Gynecologic Oncology 12/16/19 documented as of this encounter
--- OUTSIDE RECORDS SUMMARY | 2024-03-15 09:53 | XMS_ITS | Encounter Summary ---
Author Organization [place] [address] Care Team Providers Care Parking Enforcement Manager Name Role Phone Abdifatah Uriarte MD Unavailable [phone] Abdifatah Gegier MD Primary Care Provider [phone] Reason for Visit * Reason Comments Medication Refill Encounter Details Date Type Department Care Team (Late Contact Info) Description 02/03/2023 Refill [facility] [address] [place] [address] Migue Anne MD [address] [place] [address] Medication Refill Social History Tobacco Use Types [...] due to labs, vitals or acute exacerbations. workers compensation examiner Reason: Abnormal serum potassium OR potassium not on file within 6 months and Serum creatininenot on file within protocol timeframe workers compensation examiner Action: Defer to office. Patient needs labwork or vitals completed. Routed to office staff for outreach. This diagnosis was last assessed on 12/17/22. documented in this encounter Plan of Treatment Upcoming Encounters Date Type Department Care Team (Late st Contact Info) Description 04/24/2024 10:45 AM EST Clinical Support [facility] [address] [place] [address] documented as of this encounter [...] documented as of this encounter Care Teams Parking Enforcement Manager Relationship Specialty Start Date End Date Abdifatah Geiger MD [address] [place] [address] PCP - General Family Medicine 07/17/22 08/25/23 Abdifatah Uriarte MD 1 [facility] [place] [address] Consulting Physician Obstetrics & Gynecology-Gynecologic Oncology 12/16/19 documented as of this encounter
--- OUTSIDE RECORDS SUMMARY | 2024-03-15 09:53 | XMS_ITS | Encounter Summary ---
Author Organization [place] [address] Care Team Providers Care Magnesium Mill Operator Name Role Phone Abdifatah Uriarte MD Unavailable [phone] Abdifatah Geiger MD Primary Care Provider [phone] Reason for Visit * Reason Onset Date Comments Medication Refill 08/17/2022 Encounter Details Date Type Department Care Team (Late st Contact Info) Description 08/17/2022 Refill [facility] [place] [address] [place] [address] Migue Anne MD [address] [place] [address] Medication Refill Social History Tobacco Use Types [...] 04/24/2024 10:45 AM EST Clinical Support [facility] [address] [place] [address] documented as of this encounter [...] documented as of this encounter Care Teams Magnesium Mill Operator Relationship Specialty Start Date End Date Abdifatah Geiger MD [address] [place] [phone] PCP - General Family Medicine 07/17/22 08/25/23 Abdifatah Uriarte MD [address] [place] [address] [place] [address] Consulting Physician Obstetrics & Gynecology-Gynecologic Oncology 12/16/19 documented as of this encounter
--- OUTSIDE RECORDS SUMMARY | 2024-03-15 09:53 | XMS_ITS | Encounter Summary ---
Author Organization [place] [address] Care Team Providers Care Title Lawyer Name Role Phone Abdifatah Uriarte MD Unavailable [phone] Abdifatah Geiger MD Primary Care Provider [phone] Reason for Visit * Reason Onset Date Comments Medication Refill 11/16/2022 Encounter Details Date Type Department Care Team (Late st Contact Info) Description 11/16/2022 Refill [facility] [place] [address] [place] [address] Migue Anne MD [address] [place] [address] Medication Refill Social History Tobacco Use Types [...] 04/24/2024 10:45 AM EST Clinical Support [facility] [address] [place] [phone] documented as of this encounter Goals Goal [...] documented as of this encounter Care Teams Title Lawyer Relationship Specialty Start Date End Date Abdifatah Geiger MD [address] [place] [address] PCP - General Family Medicine 07/17/22 08/25/23 Abdifatah Uriarte MD [address] [place] [address] [place] [address] Consulting Physician Obstetrics & Gynecology-Gynecologic Oncology 12/16/19 documented as of this encounter
--- OUTSIDE RECORDS SUMMARY | 2024-03-15 09:53 | XMS_ITS | Encounter Summary ---
Author Organization [place] [address] Care Team Providers Care Grades 6 Through 8 Teacher Name Role Phone Abdifatah Uriarte MD Unavailable [phone] Abdifatah Geiger MD Primary Care Provider [phone] Encounter Details Date Type Department Care Team (Latest Contact Info) Description 12/17/2022 3:38 PM EDT - 12/17/2022 11:59 PM EDT Hospital Encounter GRT XRAY [address] [place] [address] Cervical pain (neck) Discharge Disposition: [...] [facility] [address] [place] [address] documented as of this [...] ODONTOID C-SPINE, ??12/17/2022 3:53 PM CLINICAL HISTORY: ??M54.9-Zfbdqnfpfuk-ZFG-10-CM COMPARISON: ??07/16/2018 PROCEDURE COMMENTS: AP, lateral, and odontoid views of the cervical spine. FINDINGS: No fracture or malalignment. Soft tissues unremarkable. Minimal degenerative change with minimal disc space narrowing C5-C6 and minimal facet disease stable from prior Procedure Note Abdifatah Flores MD - 12/17/2022 AP, LATERAL, AND ODONTOID C-SPINE, 12/17/2022 3:53 PM CLINICAL HISTORY: M54.6-Xlondofdhek-YCT-10-CM COMPARISON: 07/16/2018 PROCEDURE COMMENTS: AP, lateral, and [...] office of the ordering clinician. Michelle Robert AVIATION ELECTRONICS TECHNICIAN IMG DIAGNOSTIC IMAGING ORDERABLES Final Result documented in this encounter Visit Diagnoses Diagnosis Cervical pain (neck) Cervicalgia documented in this encounter Additional Health Concerns Assessment Noted Time PHQ-9 Depression Total Score: 2 10/07/19 18 8:00 AM EDT PHQ-2 Depression Total Score: 2 10/07/19 18 8:00 AM EDT documented as of this encounter Care Teams Grades 6 Through 8 Teacher Relationship Specialty Start Date End Date Abdifatah Geiger MD [facility] [place] [phone] PCP - General Family Medicine 07/17/22 08/25/23 Abdifatah Uriarte MD [address] [place] [address] [place] [address] Consulting Physician Obstetrics & Gynecology-Gynecologic Oncology 12/16/19 documented as of this encounter
--- OUTSIDE RECORDS SUMMARY | 2024-03-15 09:53 | XMS_ITS | Encounter Summary ---
Author Organization [place] [address] Care Team Providers Care Spindle Maker Name Role Phone Abdifatah Uriarte MD Unavailable [phone] Abdifatah Geiger MD Primary Care Provider [phone] Reason for Visit * Reason Onset Date Comments Medication Refill 09/14/2022 Encounter Details Date Type Department Care Team (Late st Contact Info) Description 09/14/2022 Refill [facility] [place] [address] [place] [address] Migue Anne MD [address] [place] [address] Medication Refill Social History Tobacco Use Types [...] 04/24/2024 10:45 AM EST Clinical Support [facility] [address] [place] [address] documented as of this encounter [...] documented as of this encounter Care Teams Spindle Maker Relationship Specialty Start Date End Date Abdifatah Geiger MD [address] [place] [phone] PCP - General Family Medicine 07/17/22 08/25/23 Abdifatah Uriarte MD [address] [place] [address] [place] [address] Consulting Physician Obstetrics & Gynecology-Gynecologic Oncology 12/16/19 documented as of this encounter
--- OUTSIDE RECORDS SUMMARY | 2024-03-15 09:53 | XMS_ITS | Encounter Summary ---
Author Organization [place] [address] Care Team Providers Care Emery Wheel Worker Name Role Phone Abdifatah Uriarte MD Unavailable [phone] Abdifatah Geiger MD Primary Care Provider [phone] Reason for Referral * Echo (Routine) - Closed Specialty Diagnoses / Procedures Referred By Amalia t Referred To Contact Radiology Diagnoses ASD (atrial septal defect) Palpitations Chest discomfort Procedures EC ECHOCARDIOGRAM COMPLETE W DOPPLER AND COLOR FLOW MAPPING Migue Anne MD [address] [place] [address] Phone: tel: fax: Referral ID Status Reason Start Date Expiration Date Visits Re quested Visits Authorized [id number] Closed 12/17/2022 12/16/2024 1 1 Reason for Visit * Reason Comments Annual Exam Annual exam * Consultation (Routine) - Closed Specialty Diagnoses / Procedures Referred By Contac t Referred To Contact Internal Medicine-Cardiovascular Disease / Cardiology Diagnoses 1 year follow up Procedures OFFICE VISIT Thea Rubio MD Phone: tel: fax: Migue Anne MD [address] [place] [address] Phone: tel: fax: Referral ID Status Reason Start Date Expiration Date Visits Re quested Visits Authorized [id number] Closed 12/17/2022 12/17/2023 99 99 Encounter Details Date Type Department Care Team (Late st Contact Info) Description 12/17/2022 8:30 AM EDT Office Visit [facility] [address] [place] [address] Migue Anne MD [address] [facility] [address] [place] [address] ASD (atrial septal defect) (Primary Dx); Palpitations; [...] Clinical Support [facility] [address] [place] [address] documented as of this encounter [...] documented as of this encounter Care Teams Emery Wheel Worker Relationship Specialty Start Date End Date Abdifatah Geiger MD [address] [place] [phone] PCP - General Family Medicine 07/17/22 08/25/23 Abdifatah Uriarte MD [address] [place] [address] [place] [address] Consulting Physician Obstetrics & Gynecology-Gynecologic Oncology 12/16/19 documented as of this encounter
--- OUTSIDE RECORDS SUMMARY | 2024-03-15 09:53 | XMS_ITS | Encounter Summary ---
Author Organization [place] [address] Care Team Providers Care Electric Sealing Machine Operator Name Role Phone Abdifatah Uriarte MD Unavailable [phone] Abdifatah Geiger MD Primary Care Provider [phone] Reason for Visit * Reason Comments Medication Refill Encounter Details Date Type Department Care Team (Late st Contact Info) Description 08/02/2023 Refill [facility] [address] [place] [address] Migue Anne MD [address] [place] [address] Medication Refill Social History Tobacco Use Types [...] EDT Metoprolol 25 Medication Refill Protocol passed. [facility] Action: Approved 90 day supply with sufficient refills to noted follow-up date by provider or protocol if no follow-up date noted, not to exceed 90 days past that date. documented in this encounter Plan of Treatment Upcoming Encounters Date Type Department Care Team (Late st Contact Info) Description 04/24/2024 10:45 AM EST Clinical Support [facility] [address] [place] [address] documented as of this encounter [...] as of this encounter Care Teams Electric Sealing Machine Operator Relationship Specialty Start Date End Date Abdifatah [place]iger [place] [address] PCP - General Family Medicine 07/17/22 08/25/23 Abdifatah Uriarte MD 1 [facility] [phone] Consulting Physician Obstetrics & Gynecology-Gynecologic Oncology 12/16/19 documented as of this encounter
--- OUTSIDE RECORDS SUMMARY | 2024-03-15 09:54 | XMS_ITS | Encounter Summary ---
Author Organization [place] [address] Care Team Providers Care Reaming Press Operator Name Role Phone Thea Rubio MD Primary Care Provider [phone] Abdifatah Uriarte MD Unavailable [phone] Reason for Visit * Reason Comments Medication Refill Encounter Details Date Type Department Care Team (Late st Contact Info) Description 05/19/2022 Refill [facility] [place] [address] [place] [address] Migue Anne MD [address] [place] [address] Medication Refill Social History Tobacco Use Types [...] 04/24/2024 10:45 AM EST Clinical Support [facility] [address] [place] [address] documented as of this encounter [...] documented as of this encounter Care Teams Reaming Press Operator Relationship Specialty Start Date End Date Thea Rubio MD PCP - General Family Medicine 09/13/14 07/16/22 Abdifatah Uriarte MD [address] [place] [address] [place] [address] Consulting Physician Obstetrics & Gynecology-Gynecologic Oncology 12/16/19 documented as of this encounter
--- OUTSIDE RECORDS SUMMARY | 2024-03-15 09:54 | XMS_ITS | Encounter Summary ---
Author Organization [place] [address] Care Team Providers Care Performance Management Consultant Name Role Phone Thea Rubio MD Primary Care Provider +1- [phone] Abdifatah Uriarte MD Unavailable [phone] Encounter Details Date Type Department Care Team (Latest Contact Info) Description 10/10/2021 8:45 AM EDT - 10/10/2021 11:59 PM EDT Hospital Encounter [facility] [address] [place] [address] ASD (atrial septal defect) Discharge [...] 04/24/2024 10:45 AM EST Clinical Support [facility] [address] [place] [address] documented as of this encounter [...] 4.200 mcIU/mL 10/10/2021 3:44 PM EDT [facility] Blood VENOUS BLOOD / Unknown Venipuncture / Unknown 10/10/2021 8:52 AM EDT 10/10/2021 8:52 AM EDT Narrative [facility] - 10/10/2021 3:44 PM EDT Ingestion of abimael doses of biotin (>5 mg/day) taken within 8 hours of drawing blood sample can interfere with this immunoassay test. us Migue Anne MD CHEMISTRY ORDERABLES nal Result [facility] [address] [facility] , [place] [address] * LIPID PANEL REFLEX (10/10/2021 8:52 AM EDT) Cholesterol 139 <200 mg/dL 10/10/2021 3:44 PM EDT [facility] Comment: < 200 ?Desirable 200 - 239 ? Borderline High >= 240 ?High Triglyceride 98 <150 mg/dL 10/10/2021 3:44 PM EDT [facility] Comment: < 150 ? Normal 150 - 199 ?Borderline High 200 - 499 ?High ??>= 500 ? Very High HDL 42 >=40 mg/dL 10/10/2021 3:44 PM EDT [facility] Comment: ??> 60 ?Optimal 40 - 60 ?Acceptable ?? < 40 ?Low LDL Calculated 79 <100 mg/dL 10/10/2021 3:44 PM EDT [facility] Non-HDL-C Calculated 97 <=129 mg/dL 10/10/2021 3:44 PM EDT [facility] [employer] [employer] Comment: <130 ?Desirable 130-159 Above Desirable 160-189 Borderline High 190-219 High >= 220 ??Very High Fasting Specimen? No None 022 3:44 PM EDT [facility] Blood VENOUS BLOOD / Unknown Venipuncture / Unknown 10/10/2021 8:52 AM EDT 10/10/2021 8:52 AM EDT Migue Anne MD CHEMISTRY ORDERABLES Fi nal Result [facility], [facility] [address] [facility] , [place] [address] [facility] 1 [place] [address] * CBC (10/10/2021 8:52 AM [...] Result [facility] [address] [facility] , [place] [address] * COMPREHENSIVE METABOLIC PANEL (10/10/2021 8:52 AM [...] U/L 10/10/2021 3:44 PM EDT [facility], [facility] AST 15 <=40 U/L 10/10/2021 3:44 PM EDT [facility], [facility] Alk Phos 75 36 - 123 U/L 10/10/2021 3:44 PM EDT [facility] eGFR (CKD-EPIcr 2020) 99 >=60 mL/min/1.7 3 m2 10/10/2021 3:44 PM EDT [facility] Comment:Estimated GFR was ca lculated using the CKD-EPIcr (2020) equation refit without race. The equation is recommended by the National Kidney Foundation - [place] [employer] of Nephrology Task Force. Blood VENOUS BLOOD / Unknown Venipuncture / Unknown 10/10/2021 8:52 AM EDT 10/10/2021 8:52 AM EDT us Migue Anne MD CHEMISTRY ORDERABLES Fi nal Result [facility], [facility] [address] [facility] , [place] [address] [facility] [address] [place] [address] documented in this encounter Visit Diagnoses Diagnosis ASD (atrial septal defect) Ostium secundum type atrial septal defect documented in this encounter Additional Health Concerns Assessment Noted Time PHQ-9 Depression Total Score: 2 10/07/19 18 8:00 AM EDT PHQ-2 Depression Total Score: 2 10/07/19 18 8:00 AM EDT documented as of this encounter Care Teams Performance Management Consultant Relationship Specialty Start Date End Date Thea Rubio MD PCP - General Family Medicine 09/13/14 07/16/22 Abdifatah Uriarte MD 1 [facility] [place] [address] Consulting Physician Obstetrics & Gynecology-Gynecologic Oncology 12/16/19 documented as of this encounter
--- OUTSIDE RECORDS SUMMARY | 2024-03-15 09:54 | XMS_ITS | Encounter Summary ---
Author Organization [place] [address] Care Team Providers Care Potable Water Treatment Operator Name Role Phone Thea Rubio MD Primary Care Provider +1- [phone] Abdifatah Uriarte MD Unavailable [phone] Reason for Visit * Reason Comments Injections Encounter Details Date Type Department Care Team (Latest Contact Info) Description 02/04/2022 9:00 AM EDT Clinical Support [facility] [address] [place] [phone] Louann Mccray MA Excessive and frequent [...] [facility] [address] [place] [phone] documented as of this encounter Goals Goal [...] documented as of this encounter Care Teams Potable Water Treatment Operator Relationship Specialty Start Date End Date Thea Rubio MD PCP - General Family Medicine 09/13/14 07/16/22 Abdifatah Uriarte MD 1 [facility] [place] [address] Consulting Physician Obstetrics & Gynecology-Gynecologic Oncology 12/16/19 documented as of this encounter
--- OUTSIDE RECORDS SUMMARY | 2024-03-15 09:54 | XMS_ITS | Encounter Summary ---
Author Organization [place] [address] Care Team Providers Care Bottom Filler Name Role Phone Thea Rubio MD Primary Care Provider +1- [phone] Abdifatah Uriarte MD Unavailable [phone] Encounter Details Date Type Department Care Team (Late st Contact Info) Description 11/07/2021 Orders Only [facility] [address] [place] [address] Misty Gillespie MD [address] [place] [address] Excessive and frequent menstruation Social History Tobacco [...] 04/24/2024 10:45 AM EST Clinical Support [facility] [address] [place] [address] documented as of this encounter [...] documented as of this encounter Care Teams Bottom Filler Relationship Specialty Start Date End Date Thea Rubio MD PCP - General Family Medicine 09/13/14 07/16/22 Abdifatah Uriarte MD [address] [place] [address] [place] [address] Consulting Physician Obstetrics & Gynecology-Gynecologic Oncology 12/16/19 documented as of this encounter
--- OUTSIDE RECORDS SUMMARY | 2024-03-15 09:54 | XMS_ITS | Encounter Summary ---
Author Organization [place] [address] Care Team Providers Care Healthcare Administration Internship Name Role Phone Thea Rubio MD Primary Care Provider +1- [phone] Abdifatah Uriarte MD Unavailable [phone] Reason for Referral * Mammography (Routine) - Pending Review Specialty Diagnoses / Procedures Referred By Amalia tuttle Referred To Contact Radiology Diagnoses Breast cancer screening by mammogram Procedures MM MAMMO DIGITAL MADELEINE SCREEN BILAT Misty Gillespie MD [address] [place] [address] Phone: tel: fax: Referral ID Status Reason Start Date Expiration Date V isits Requested Visits Authorized [id number] Pending Review 06/04/2022 06/03/2024 1 1 Reason for Visit * Reason Comments Gynecologic Exam * Consultation (Routine) - Closed Specialty Diagnoses / Procedures Referred By Amalia t Referred To Contact Obstetrics & Gynecology / Obstetrics and Gynecology Diagnoses Annual, [facility] Procedures ANNUAL OFFICE VISIT Thea Rubio MD Phone: tel: fax: Misty Gillespie MD [address] [place] [address] Phone: tel: fax: Referral ID Status Reason Start Date Expiration Date Visits Re quested Visits Authorized [id number] Closed 06/04/2022 06/04/2023 99 99 Encounter Details Date Type Department Care Team (Late st Contact Info) Description 06/04/2022 2:20 PM EST Office Visit [facility] [address] [place] [address] Misty Gillespie MD [address] [place] [address] Well woman [...] Gillespie MD - 06/04/2022 2:20 PM EST PRODUCTION MANAGER ANNUAL EXAM HPI: Patient is a 42 [...] ??? COLONOSCOPY 01/12/2018 Dr. Aaron Rocha, with [employer]. Normal colon ??? UPPER GASTROINTESTINAL ENDOSCOPY 12/04/2017 [...] Well woman exam with routine gynecological exam [facility] PRODUCTION MANAGER CYTOLOGY ORDER 2. Breast cancer screening by mammogram MM MAMMO DIGITAL MADELEINE SCREEN BILAT - RTO 1 year or prn Misty Gillespie MD documented in this encounter Plan of Treatment Upcoming Encounters Date Type Department Care Team (Late st Contact Info) Description 04/24/2024 10:45 AM EST Clinical Support [facility] [address] [facility] [phone] documented as of this encounter Goals Goal Patient Goal Type Associated Problems Recent Progress Patient-Stated? Author Maintain a healthy diet, exercise regularly and maintain an ideal body weight General No Thea Rubio MD Stay Tobacco Free Lifestyle No Thea Rubio MD documented as of this encounter Procedures Procedure Name Priority Date/Time Associated Diagnosis Comments PRODUCTION MANAGER CYTOLOGY REQUEST (PAP ONLY) Routine 06/04/2022 2:46 PM EST Well woman exam with routine gynecological exam [facility] PRODUCTION MANAGER CYTOLOGY ORDER Routine 06/04/2022 2:46 PM EST Well woman exam with routine gynecological exam HPV HIGH RISK Routine 06/04/2022 2:46 PM EST Well woman exam with routine gynecological exam documented in this encounter Results * MM MAMMO DIGITAL MADELEINE SCREEN BILAT (07/10/2022 8:14 AM EDT) Anatomical Region Laterality Modality Breast Bilateral Mammography 07/10/2022 9:09 AM EDT Impressions 07/10/2022 9:09 AM EDT Negative ??([id number]) ~ RECOMMENDATION: Routine screening mammogram in 1 [...] the next mammogram, in accordance with the [place] [employer] and the Society of Breast Imaging recommendations. Narrative 07/10/2022 9:09 AM EDT Procedure:MM MAMMO DIGITAL MADELEINE SCREEN BILAT ~ Reason for exam: screening, asymptomatic. Z12.31-Encounter for screening mammogram for malignant neoplasm of sobetw-UMD-32-CM ~ MM MAMMO DIGITAL MADELEINE SCREEN BILAT [...] for screening mammogram for malignant neoplasm of xmmemr-NUP-52-CM ~ MM MAMMO DIGITAL MADELEINE SCREEN BILAT Bilateral CC and MLO view(s) were taken. Technologist: RT Yadi The breast tissue is heterogeneously dense. This may lower thesensitivity of mammography. Prior study comparison: Compared with prior studies the most recentbeing 10/30/20, 10/07/19 No suspicious mass, architectural distortion, or microcalcifications. No mammographic evidence of malignancy. ~ IMPRESSION: Negative (EDT-[id number]-5) ~ RECOMMENDATION: Routine screening mammogram in 1 [...] the next mammogram, in accordance with the [place] [employer] and the Society of Breast Imaging recommendations. Misty Gillespie MD [facility] MAMMO[facility] ORDERABLES Final Result * HPV HIGH RISK (06/04/2022 2:46 PM EST) HPV HR Not Detected Not Detected 06/05/2022 3:47 PM EST [employer] Thin Prep SPECIMEN FROM UTERINE CERVIX / Unknown 06/04/2022 2:46 PM EST 06/04/2022 2:46 PM EST Narrative [employer] - 06/05/2022 3:47 PM EST This test [...] - GENERAL JOSE L HENLEY Final Result [employer] 1 [facility] , [place] [address] * PRODUCTION MANAGER CYTOLOGY REQUEST (PAP ONLY) (06/04/2022 2:46 PM EST) CASE REPORT Gynecologic Cytology Report ? Case: [id number] ? Authorizing Provider: ??Misty Gillespie MD ? Collected: ? 06/04/2022 1446 ? Ordering Location: ? [facility] ? Received: ?06/04/2022 1446 ? First Screen: ?Diego Raza, ? CT ? Rescreen: ?Lashell Mccann CT ? Specimen: ?LIQUID-BASED PAP - CERVICAL/ENDOCERV ICAL, Cervix, Endocervical ? 06/06/2022 10:44 AM [facility] ([employer] tool[employer])[facility] PAP FINAL DIAGNOSIS Negative for intraepithelial lesion or malignancy 06/06/2022 10:44 AM [facility] OSCOPIC DESCRIPTION Microscopic examination is performed and the findings corroborate the diagnosis. 06/06/2022 10:44 AM [facility] ([employer] toolKit)[facility] PAP SMEAR ADEQUACY Satisfactory for evaluation 06/06/2022 10:44 AM [facility] ([employer] Oper[employer] toolKit)[facility] ENDOCERVICAL T-ZONE Transformation zone present 06/06/2022 10:44 AM [employer] [facility] (Smart Operational Agricultural toolKit)[facility] EMBEDDED IMAGES 10:44 AM [facility] PAP DISCLAIMER The Pap Smear is a screening test that aids in the detection of cervical cancer and cancer precursors. Both false positive and false negative results can occur. The test should be used at regular intervals, and positive results should be confirmed before definitive therapy. Processed using the [employer] Lucidity ([employer]) Automated cytology screening device ([employer]). 06/06/2022 10:44 AM EST [facility] Thin Prep ENDOCERVICAL STRUCTURE / Unknown 06/04/2022 2:46 PM EST 06/04/2022 2:46 PM EST us Misty Gillespie MD CYTOLOGY ORDERABLES Final R esult [facility] 1 [place] [address] documented in this encounter Visit Diagnoses Diagnosis [...] documented as of this encounter Care Teams Healthcare Administration Internship Relationship Specialty Start Date End Date Thea Rubio MD PCP - General Family Medicine 09/13/14 07/16/22 Abdifatah Uriarte MD 1 [facility] [phone] Consulting Physician Obstetrics & Gynecology-Gynecologic Oncology 12/16/19 documented as of this encounter
--- OUTSIDE RECORDS SUMMARY | 2024-03-15 09:54 | XMS_ITS | Encounter Summary ---
Author Organization [place] [address] Care Team Providers Care Cardiac Monitor Technician Name Role Phone Thea Rubio MD Primary Care Provider +1- [phone] Abdifatah Uriarte MD Unavailable [phone] Reason for Visit * Reason Onset Date Comments Medication Refill 04/18/2022 Encounter Details Date Type Department Care Team (Late st Contact Info) Description 04/18/2022 Refill [facility] [address] [place] [phone] Es Vega MA Medication Refill Social [...] 04/24/2024 10:45 AM EST Clinical Support [facility] [address] [place] [address] documented as of this encounter [...] as of this encounter Care Teams Cardiac Monitor Technician Relationship Specialty Start Date End Date Thea Rubio MD PCP - General Family Medicine 09/13/14 07/16/22 Abdifatah Uriarte MD [address] [place] [address] [place] [phone] Consulting Physician Obstetrics & Gynecology-Gynecologic Oncology 12/16/19 documented as of this encounter
--- OUTSIDE RECORDS SUMMARY | 2024-03-15 09:54 | XMS_ITS | Encounter Summary ---
Author Organization [place] [address] Care Team Providers Care Water/Wastewater Project Engineer Name Role Phone Thea Rubio MD Primary Care Provider [phone]- [phone] Abdifatah Uriarte MD Unavailable [phone] Reason for Referral * Mammography (Routine) - Pending Review Specialty Diagnoses / Procedures Referred By Amalia tuttle Referred To Contact Radiology Diagnoses Breast cancer screening by mammogram Procedures MM MAMMO DIGITAL MADELEINE SCREEN Mitsy Mary MD [address] [place] [address] Phone: tel: fax: Referral ID Status Reason Start Date Expiration Date V isits Requested Visits Authorized [id number] Pending Review 06/04/2022 06/03/2024 1 1 Reason for Visit * Mammography (Routine) - Pending Review Specialty Diagnoses / Procedures Referred By Amalia tuttle Referred To Contact Radiology Diagnoses Breast cancer screening by mammogram Procedures MM MAMMO DIGITAL MADELEINE SCREEN Misty Mary MD [address] [place] [address] Phone: tel: fax: Referral ID Status Reason Start Date Expiration Date V isits Requested Visits Authorized [id number] Pending Review 06/04/2022 06/03/2024 1 1 Encounter Details Date Type Department Care Team (Late st Contact Info) Description 07/10/2022 7:54 AM EDT - 07/10/2022 11:59 PM EDT Hospital Encounter [facility] [address] [place] [address] Misty Gillespie MD [address] [place] [address] Breast cancer [...] Clinical Support [facility] [address] [place] [address] documented as of this [...] EDT Impressions 07/10/2022 9:09 AM EDT Negative ??(OCO-Wihrhyuu-8) ~ RECOMMENDATION: Routine screening mammogram in 1 [...] the next mammogram, in accordance with the [place] [employer] and the Society of Breast Imaging recommendations. Narrative 07/10/2022 9:09 AM EDT Procedure:MM MAMMO DIGITAL MADELEINE SCREEN BILAT ~ Reason for exam: screening, asymptomatic. Z12.31-Encounter for screening mammogram for malignant neoplasm of abgazd-OVN-95-CM ~ MM MAMMO DIGITAL MADELEINE SCREEN BILAT [...] for screening mammogram for malignant neoplasm of lkyzql-CDM-54-CM ~ MM MAMMO DIGITAL MADELEINE SCREEN BILAT Bilateral CC and MLO view(s) were taken. Technologist: Svetlana Sincliar RT The breast tissue is heterogeneously dense. This may lower thesensitivity of mammography. Prior study comparison: Compared with prior studies the most recentbeing 10/30/20, 10/07/19 No suspicious mass, architectural distortion, or microcalcifications. No mammographic evidence of malignancy. ~ IMPRESSION: Negative (BGG-Pxwrpwmq-2) ~ RECOMMENDATION: Routine screening mammogram in 1 [...] the next mammogram, in accordance with the [place] [employer] and the Society of Breast Imaging recommendations. Misty Gillespie MD [facility] MAMMOGRAPHY ORDERABLES Final Result documented in this encounter Visit Diagnoses Diagnosis Breast cancer screening by mammogram documented in this encounter Additional Health Concerns Assessment Noted Time PHQ-9 Depression Total Score: 2 10/07/19 18 8:00 AM EDT PHQ-2 Depression Total Score: 2 10/07/19 18 8:00 AM EDT documented as of this encounter Care Teams Water/Wastewater Project Engineer Relationship Specialty Start Date End Date Thea Rubio MD PCP - General Family Medicine 09/13/14 07/16/22 Abdifatah Uriarte MD 1 [facility] [place] [address] Consulting Physician Obstetrics & Gynecology-Gynecologic Oncology 12/16/19 documented as of this encounter
--- OUTSIDE RECORDS SUMMARY | 2024-03-15 09:54 | XMS_ITS | Encounter Summary ---
Author Organization [place] [address] Care Team Providers Care Satellite Dish Technician Name Role Phone Thea Rubio MD Primary Care Provider [phone]- [phone] Abdifatah Uriarte MD Unavailable [phone] Reason for Visit * Reason Comments Medication Refill Encounter Details Date Type Department Care Team (Late Contact Info) Description 04/18/2022 Refill [facility] [address] [place] [phone] Misty Gillespie MD [address] [place] [address] Medication Refill Social History Tobacco Use Types [...] 10:45 AM EST Clinical Support [facility] [address] [place] [address] documented as of this encounter [...] documented as of this encounter Care Teams Satellite Dish Technician Relationship Specialty Start Date End Date Thea Rubio MD PCP - General Family Medicine 09/13/14 07/16/22 Abdifatah Uriarte MD [address] [place] [address] [place] [address] Consulting Physician Obstetrics & Gynecology-Gynecologic Oncology 12/16/19 documented as of this encounter
--- OUTSIDE RECORDS SUMMARY | 2024-03-15 09:54 | XMS_ITS | Encounter Summary ---
Author Organization [place] [address] Care Team Providers Care Coat Tailor Name Role Phone Thea Rubio MD Primary Care Provider [phone]- [phone] Abdifatah Uriarte MD Unavailable [phone] Reason for Visit * Reason Onset Date Comments Medication Refill 04/30/2021 Encounter Details Date Type Department Care Team (Late Contact Info) Description 04/30/2021 Telephone [facility] [address] [place] [phone] Chelsea Agee, HERIBERTO Medication Refill Social [...] Support [facility] [address] [place] [address] documented as of this encounter [...] documented as of this encounter Care Teams Coat Tailor Relationship Specialty Start Date End Date Thea Rubio MD PCP - General Family Medicine 09/13/14 07/16/22 Abdifatah Uriarte MD 1 [facility] [place] [address] Consulting Physician Obstetrics & Gynecology-Gynecologic Oncology 12/16/19 documented as of this encounter
--- OUTSIDE RECORDS SUMMARY | 2024-03-15 09:54 | XMS_ITS | Encounter Summary ---
Author [place] [address] Care Team Providers Care Boom Supervisor Name Role Phone Thea Rubio MD Primary Care Provider [phone]- [phone] Abdifatah Uriarte MD Unavailable Reason for Visit * Reason Onset Date Comments ED Follow-Up Call 10/12/2021 Encounter Details Date Type Department Care Team (Late st Contact Info) Description 10/12/2021 Patient Outreach [facility] [address] [place] [address] Lidia Jean, BLOCK CUBER Follow-Up Call Social History Tobacco Use Types [...] voicemail was left. Letter was sent via [employer]. documented in this encounter Plan of Treatment Upcoming Encounters Date Type Department Care Team (Late st Contact Info) Description 04/24/2024 10:45 AM EST Clinical Support [facility] 100 [place] [address] documented as of this encounter [...] documented as of this encounter Care Teams Boom Supervisor Relationship Specialty Start Date End Date Thea Rubio MD PCP - General Family Medicine 09/13/14 07/16/22 Abdifatah Uriarte MD [address] [place] [address] [place] [address] Consulting Physician Obstetrics & Gynecology-Gynecologic Oncology 12/16/19 documented as of this encounter
--- OUTSIDE RECORDS SUMMARY | 2024-03-15 09:54 | XMS_ITS | Encounter Summary ---
Author Organization [place] [address] Care Team Providers Care Patrol Mother Name Role Phone Thea Rubio MD Primary Care Provider [phone]- [phone] Abdifatah Uriarte MD Unavailable [phone] Reason for Visit * Reason Comments Injections Encounter Details Date Type Department Care Team (Latest Contact Info) Description 11/07/2021 9:00 AM EDT Clinical Support [facility] [address] [place] [phone] Excessive and frequent menstruation Social History [...] 04/24/2024 10:45 AM EST Clinical Support [facility] [address] [place] [address] documented as of this encounter [...] documented as of this encounter Care Teams Patrol Mother Relationship Specialty Start Date End Date Thea Rubio MD PCP - General Family Medicine 09/13/14 07/16/22 Abdifatah Uriarte MD [address] [place] [address] [place] [address] Consulting Physician Obstetrics & Gynecology-Gynecologic Oncology 12/16/19 documented as of this encounter
--- OUTSIDE RECORDS SUMMARY | 2024-03-15 09:54 | XMS_ITS | Encounter Summary ---
Author Organization [place] [address] Care Team Providers Care Load Dispatcher Name Role Phone Thea Rubio MD Primary Care Provider +1- [phone] Abdifatah Uriarte MD Unavailable [phone] Reason for Visit * Reason Comments Injections Dep-Provera Encounter Details Date Type Department Care Team (Latest Contact Info) Description 07/10/2022 9:00 AM EDT Clinical Support [facility] [address] [place] [phone] Sadaf Cobian, [facility] 87[address] .. [facility] [address] [place] [address] Excessive and frequent menstruation (Primary Dx) Social [...] 04/24/2024 10:45 AM EST Clinical Support [facility] 100 [place] [address] documented as of this encounter [...] documented as of this encounter Care Teams Load Dispatcher Relationship Specialty Start Date End Date Thea Rubio MD PCP - General Family Medicine 09/13/14 07/16/22 Abdifatah Uriarte MD [address] [place] [address] [place] [address] Consulting Physician Obstetrics & Gynecology-Gynecologic Oncology 12/16/19 documented as of this encounter
--- OUTSIDE RECORDS SUMMARY | 2024-03-15 09:54 | XMS_ITS | Encounter Summary ---
Author Organization [place] [address] Care Team Providers Care Electrician Substation Name Role Phone Thea Rubio MD Primary Care Provider +1- [phone] Abdifatah Uriarte MD Unavailable [phone] Encounter Details Date Type Department Care Team (Late st Contact Info) Description 10/10/2021 Orders Only [facility] 7[address] [place] [address] Migue Anne MD 711 [place] [address] ASD (atrial septal defect) (Primary Dx) Social [...] AM EST Clinical Support [facility] 100 [place] [address] documented as of this encounter [...] - 4.200 mcIU/mL 10/10/2021 3:44 PM EDT [facility] Blood VENOUS BLOOD / Unknown Venipuncture / Unknown 10/10/2021 8:52 AM EDT 10/10/2021 8:52 AM EDT Narrative PREFERRED [facility] - 10/10/2021 3:44 PM EDT Ingestion of abimael doses of biotin (>5 mg/day) taken within 8 hours of drawing blood sample can interfere with this immunoassay test. us Migue Anne MD CHEMISTRY ORDERABLES nal Result PREFERRED [facility] 1 [facility] , [place] [address] * LIPID PANEL REFLEX (10/10/2021 8:52 AM EDT) Cholesterol 139 <200 mg/dL 10/10/2021 3:44 PM EDT PREFERRED [facility] Comment: < 200 ?Desirable 200 - 239 ? Borderline High >= 240 ?High Triglyceride 98 <150 mg/dL 10/10/2021 3:44 PM EDT [facility]REFERRED [facility] Comment: < 150 ? Normal 150 - 199 ?Borderline High 200 - 499 ?High ??>= 500 ? Very High HDL 42 >=40 mg/dL 10/10/2021 3:44 PM EDT [facility] Comment: ??> 60 ?Optimal 40 - 60 ?Acceptable ?? < 40 ?Low LDL Calculated 79 <100 mg/dL 10/10/2021 3:44 PM EDT [facility] Non-HDL-C Calculated 97 <=129 mg/dL 10/10/2021 3:44 PM EDT [facility] Comment: <130 ?Desirable 130-159 Above Desirable 160-189 Borderline High 190-219 High >= 220 ??Very High Fasting Specimen? No None 022 3:44 PM EDT [facility] Blood VENOUS BLOOD / Unknown Venipuncture / Unknown 10/10/2021 8:52 AM EDT 10/10/2021 8:52 AM EDT Migue Anne MD CHEMISTRY ORDERABLES Fi nal Result PREFERRED [facility], [facility] 1 [facility] , [address] [place] [id number] [facility] 1 [place] [address] * CBC (10/10/2021 8:52 AM EDT) [facility] WBC 7.4 3.7 - 10.3 x10(3)/mcL 10/10/2021 3:22 PM EDT [facility]REF[facility] RBC 4.74 3.90 - 5.20 x10(6)/mcL 10/10/2021 [...] ORDERABLES F inal Result [facility] [address] [facility] , [place] [address] * COMPREHENSIVE METABOLIC PANEL (10/10/2021 8:52 AM [...] 10/10/2021 3:44 PM EDT [facility] Calcium 9.5 8.6 - 10.4 mg/dL 10/10/2021 3:44 PM EDT [facility] Glucose Lvl 79 74 - 100 mg/dL 10/10/2021 3:44 PM EDT [facility] BUN 6 6 - 20 mg/dL 10/10/2021 3:44 PM EDT [facility] Creatinine 0.78 0.51 - 1.30 mg/dL 10/10/2021 3:44 PM EDT [facility] Albumin 4.3 3.5 - 5.2 gm/dL 10/10/2021 3:44 PM EDT [facility] Total Protein 6.8 6.4 - 8.3 gm/dL 10/10/2021 3:44 PM EDT [facility] Bili Total 0.2 0.1 - 1.3 mg/dL 10/10/2021 3:44 PM EDT [facility] ALT 20 <=41 U/L 10/10/2021 3:44 PM EDT [facility] AST 15 <=40 U/L 10/10/2021 3:44 PM EDT [facility] Alk Phos 75 36 - 123 U/L 10/10/2021 3:44 PM EDT [facility] eGFR (CKD-EPIcr 2020) 99 >=60 mL/min/1.7 3 m2 10/10/2021 3:44 PM EDT [facility] Comment:Estimated GFR was ca lculated using the CKD-EPIcr (2020) equation refit without race. The equation is recommended by the National Kidney Foundation - [place] Society of Nephrology Task Force. Blood VENOUS BLOOD / Unknown Venipuncture / Unknown 10/10/2021 8:52 AM EDT 10/10/2021 8:52 AM EDT us Migue Anne MD CHEMISTRY ORDERABLES Fi nal Result [facility] [address] [facility] , [place] [address] [address] documented in this encounter Visit Diagnoses Diagnosis ASD (atrial septal defect)- Primary Ostium secundum type atrial septal defect documented in this encounter Additional Health Concerns Assessment Noted Time PHQ-9 Depression Total Score: 2 10/07/19 18 8:00 AM EDT PHQ-2 Depression Total Score: 2 10/07/19 18 8:00 AM EDT documented as of this encounter Care Teams Electrician Substation Relationship Specialty Start Date End Date Thea Rubio MD PCP - General Family Medicine 09/13/14 07/16/22 Abdifatah Uriarte MD [address] [place] [address] [place] [address] Consulting Physician Obstetrics & Gynecology-Gynecologic Oncology 12/16/19 documented as of this encounter
--- OUTSIDE RECORDS SUMMARY | 2024-03-15 09:54 | XMS_ITS | Encounter Summary ---
Author Organization [place] [address] Care Team Providers Care Cover Creaser Name Role Phone Thea Rubio MD Primary Care Provider +1- [phone] Abdifatah Uriarte MD Unavailable [phone] Reason for Visit * Reason Comments Medication Refill Encounter Details Date Type Department Care Team (Late st Contact Info) Description 01/08/2022 Refill [facility] [address] [place] [phone] Misty Gillespie MD [address] [place] [address] Medication Refill Social History Tobacco Use Types [...] 04/24/2024 10:45 AM EST Clinical Support [facility] 100 [place] [address] documented as of this encounter [...] documented as of this encounter Care Teams Cover Creaser Relationship Specialty Start Date End Date Thea Rubio MD PCP - General Family Medicine 09/13/14 07/16/22 Abdifatah Uriarte MD [address] [place] [address] [place] [address] Consulting Physician Obstetrics & Gynecology-Gynecologic Oncology 12/16/19 documented as of this encounter
--- OUTSIDE RECORDS SUMMARY | 2024-03-15 09:54 | XMS_ITS | Encounter Summary ---
Author Organization [place] [address] Care Team Providers Care Solar Project Coordination Specialist Name Role Phone Thea Rubio MD Primary Care Provider +1- [phone] Abdifatah Uriarte MD Unavailable [phone] Reason for Visit * Reason Comments Medication Refill Encounter Details Date Type Department Care Team (Late st Contact Info) Description 08/14/2021 Refill [facility] [address] [place] [address] Misty Gillespie MD 4[address] [place] [address] Medication Refill Social History Tobacco Use Types [...] 10:45 AM EST Clinical Support [facility] 100 [place] [address] documented as of this encounter [...] documented as of this encounter Care Teams Solar Project Coordination Specialist Relationship Specialty Start Date End Date Thea Rubio MD PCP - General Family Medicine 09/13/14 07/16/22 Abdifatah Uriarte MD [address] [place] [address] [place] [address] Consulting Physician Obstetrics & Gynecology-Gynecologic Oncology 12/16/19 documented as of this encounter
--- OUTSIDE RECORDS SUMMARY | 2024-03-15 09:54 | XMS_ITS | Encounter Summary ---
Author Organization [place] [address] Care Team Providers Care Consumer Services Consultant Name Role Phone Thea Rubio MD Primary Care Provider +1- [phone] Abdifatah Uriarte MD Unavailable Reason for Visit * Reason Comments Medication Refill Encounter Details Date Type Department Care Team (Late st Contact Info) Description 06/13/2022 Refill [facility] [place] [address] [place] [address] Migue Anne MD [address] [place] [address] Medication Refill Social History Tobacco Use Types [...] 04/24/2024 10:45 AM EST Clinical Support [facility] 100 [facility] [place] [address] documented as of this encounter Goals [...] documented as of this encounter Care Teams Consumer Services Consultant Relationship Specialty Start Date End Date Thea Rubio MD PCP - General Family Medicine 09/13/14 07/16/22 Abdifatah Uriarte MD [address] [place] [address] [place] [address] Consulting Physician Obstetrics & Gynecology-Gynecologic Oncology 12/16/19 documented as of this encounter
--- OUTSIDE RECORDS SUMMARY | 2024-03-15 09:54 | XMS_ITS | Encounter Summary ---
Author Organization [facility] [place] [address] Care Team Providers Care Senior Net Developer Name Role Phone Thea Rubio MD Primary Care Provider +1- [phone] Abdifatah Uriarte MD Unavailable [phone] Encounter Details Date Type Department Care Team [...] 04/24/2024 10:45 AM EST Clinical Support [facility] 100 [place] [address] documented as of this encounter [...] as of this encounter Care Teams Senior Net Developer Relationship Specialty Start Date End Date Thea Rubio MD PCP - General Family Medicine 09/13/14 07/16/22 Abdifatah Uriarte MD [address] [place] [address] [place] [address] Consulting Physician Obstetrics & Gynecology-Gynecologic Oncology 12/16/19 documented as of this encounter
--- OUTSIDE RECORDS SUMMARY | 2024-03-15 09:54 | XMS_ITS | Encounter Summary ---
Author Organization [place] [address] Care Team Providers Care Supervisor Finishing Name Role Phone Thea Rubio MD Primary Care Provider +1- [phone] Abdifatah Uriarte MD Unavailable [phone] Reason for Visit * Reason Comments Consult * Consultation (Routine) - Closed Specialty Diagnoses / Procedures Referred By Amalia tuttle Referred To Contact Obstetrics & Gynecology / Obstetrics and Gynecology Diagnoses Consult for Hyst. , okay to add on per Dr. Gillespie Procedures RETURN E COMMERCE WEB DEVELOPER VISIT Thea Rubio MD Phone: tel: fax: Misty Gillespie MD [address] [place] [address] Phone: tel: fax: Referral ID Status Reason Start Date Expiration Date Visits Re quested Visits Authorized [id number] Closed 12/12/2021 01/18/2022 99 99 Encounter Details Date Type Department Care Team (Late st Contact Info) Description 12/12/2021 8:20 AM EDT Office Visit [facility] [address] [place] [phone] Misty Gillespie MD [address] [place] [address] On Depo-Provera for contraception (Primary Dx) Social [...] Gillespie MD - 12/12/2021 8:20 AM EDT E COMMERCE WEB DEVELOPER Problem Visit HPI: Patient is a 41 [...] ??? COLONOSCOPY 01/12/2018 Dr. Aaron Rocha, with [facility]. Normal colon ??? UPPER GASTROINTESTINAL [...] 04/24/2024 10:45 AM EST Clinical Support [facility] 100 [place] [address] documented as of this encounter Goals Goal [...] as of this encounter Care Teams Supervisor Finishing Relationship Specialty Start Date End Date Thea Rubio MD PCP - General Family Medicine 09/13/14 07/16/22 Abdifatah Uriarte MD [address] [place] [address] [place] [address] Consulting Physician Obstetrics & Gynecology-Gynecologic Oncology 12/16/19 documented as of this encounter
--- OUTSIDE RECORDS SUMMARY | 2024-03-15 09:54 | XMS_ITS | Encounter Summary ---
Author Organization [place] [address] Care Team Providers Care Resistor Testing Machine Operator Name Role Phone Thea Rubio MD Primary Care Provider +1- [phone] Abdifatah Uriarte MD Unavailable [phone] Reason for Visit * Reason Comments Medication Refill Encounter Details Date Type Department Care Team (Late st Contact Info) Description 11/07/2021 Refill [facility] [place] 7[address] [place] [address] Migue Anne MD [address] [place] [address] Medication Refill Social History Tobacco Use Types [...] 04/24/2024 10:45 AM EST Clinical Support [facility] 100 [place] [address] documented as of this encounter [...] documented as of this encounter Care Teams Resistor Testing Machine Operator Relationship Specialty Start Date End Date Thea Rubio MD PCP - General Family Medicine 09/13/14 07/16/22 Abdifatah Uriarte MD [address] [place] [address] [place] [address] Consulting Physician Obstetrics & Gynecology-Gynecologic Oncology 12/16/19 documented as of this encounter
--- OUTSIDE RECORDS SUMMARY | 2024-03-15 09:54 | XMS_ITS | Encounter Summary ---
Author Organization [place] [address] Care Team Providers Care Chief Mechanical Officer Name Role Phone Thea Rubio MD Primary Care Provider +1- [phone] Abdifatah Uriarte MD Unavailable Reason for Visit * Reason Comments Poison Jeff Poison Jeff, has tristen ointment with my DrFazal at 0900 but I cant wait that long Encounter Details Date Type Department Care Team (Late st Contact Info) Description 10/11/2021 7:20 AM EDT - 10/11/2021 8:00 AM EDT [facility] [address] [place] [address] Matthew Salas MD [address] [place] [address] Contact dermatitis due to poison jeff [...] Self [facility] documented in this encounter ED Notes * [place] Encnias RN - 10/11/2021 7:59 AM EDT Due [...] ??? COLONOSCOPY 01/12/2018 Dr. Aaron Rocha, with [facility]. Normal colon ??? UPPER GASTROINTESTINAL ENDOSCOPY [...] Support [facility] 100 [place] [address] documented as of this encounter Goals Goal [...] as of this encounter Care Teams Chief Mechanical Officer Relationship Specialty Start Date End Date Thea Rubio MD PCP - General Family Medicine 09/13/14 07/16/22 Abdifatah Uriarte MD [address] [place] [address] [place] [address] Consulting Physician Obstetrics & Gynecology-Gynecologic Oncology 12/16/19 documented as of this encounter
--- OUTSIDE RECORDS SUMMARY | 2024-03-15 09:54 | XMS_ITS | Encounter Summary ---
Author Organization [place] [address] Care Team Providers Care Tractor Operator Battery Name Role Phone Thea Rubio MD Primary Care Provider +1- [phone] Abdifatah Uriarte MD Unavailable [phone] Reason for Visit * Reason Comments Medication Refill Encounter Details Date Type Department Care Team (Late st Contact Info) Description 03/11/2022 Refill [facility] [place] [address] [place] [address] Migue Anne MD [address] [place] [address] Medication Refill Social History Tobacco Use Types [...] 04/24/2024 10:45 AM EST Clinical Support [facility] 100 [facility] [place] [address] documented as of this encounter Goals [...] as of this encounter Care Teams Tractor Operator Battery Relationship Specialty Start Date End Date Thea Rubio MD PCP - General Family Medicine 09/13/14 07/16/22 Abdifatah Uriarte MD [address] [place] [address] [place] [address] Consulting Physician Obstetrics & Gynecology-Gynecologic Oncology 12/16/19 documented as of this encounter
--- OUTSIDE RECORDS SUMMARY | 2024-03-15 09:54 | XMS_ITS | Encounter Summary ---
Author Organization [place] [address] Care Team Providers Care Premium Note Interest Calculator Clerk Name Role Phone Thea Rubio MD Primary Care Provider +1- [phone] Abdifatah Uriarte MD Unavailable Reason for Visit * Reason Comments Injections Encounter Details Date Type Department Care Team (Latest Contact Info) Description 04/22/2022 9:00 AM EST Clinical Support [facility] [address] [place] [address] Louann Mccray MA Excessive and frequent [...] Support [facility] 100 [place] [phone] documented as of this encounter Goals Goal [...] documented as of this encounter Care Teams Premium Note Interest Calculator Clerk Relationship Specialty Start Date End Date Thea Rubio MD PCP - General Family Medicine 09/13/14 07/16/22 Abdifatah Uriarte MD 1 [facility] [place] [address] Consulting Physician Obstetrics & Gynecology-Gynecologic Oncology 12/16/19 documented as of this encounter
--- OUTSIDE RECORDS SUMMARY | 2024-03-15 09:54 | XMS_ITS | Encounter Summary ---
Author Organization [place] [address] Care Team Providers Care Freight Delivery Driver Name Role Phone Thea Rubio MD Primary Care Provider +1- [phone] Abdifatah Uriarte MD Unavailable [phone] Reason for Visit * Reason Comments Injections Encounter Details Date Type Department Care Team (Latest Contact Info) Description 08/21/2021 3:30 PM EDT Clinical Support [facility] [address] [place] [phone] Louann Mccray MA Excessive and frequent [...] Clinical Support [facility] 100 [facility] [place] [phone] documented as of this encounter Goals Goal [...] documented as of this encounter Care Teams Freight Delivery Driver Relationship Specialty Start Date End Date Thea Rubio MD PCP - General Family Medicine 09/13/14 07/16/22 Abdifatah Uriarte MD 1 [facility] [place] [address] Consulting Physician Obstetrics & Gynecology-Gynecologic Oncology 12/16/19 documented as of this encounter
--- OUTSIDE RECORDS SUMMARY | 2024-03-15 09:54 | XMS_ITS | Encounter Summary ---
Author Organization [place] [address] Care Team Providers Care Postpartum Nurse Name Role Phone Thea Rubio MD Primary Care Provider +1- [phone] Abdifatah Uriarte MD Unavailable [phone] Reason for Visit * Reason Comments Medication Refill Encounter Details Date Type Department Care Team (Late st Contact Info) Description 02/13/2022 Refill [facility] [place] [address] [place] [address] Migue Anne MD [address] [place] [address] Medication Refill Social History Tobacco Use Types [...] 04/24/2024 10:45 AM EST Clinical Support [facility] 100 [place] [address] documented as of this encounter [...] documented as of this encounter Care Teams Postpartum Nurse Relationship Specialty Start Date End Date Thea Rubio MD PCP - General Family Medicine 09/13/14 07/16/22 Abdifatah Uriarte MD [address] [place] [address] [place] [address] Consulting Physician Obstetrics & Gynecology-Gynecologic Oncology 12/16/19 documented as of this encounter
--- OUTSIDE RECORDS SUMMARY | 2024-03-15 09:54 | XMS_ITS | Encounter Summary ---
Author Organization [place] [address] Care Team Providers Care Wireless Development Manager Name Role Phone Thea Rubio MD Primary Care Provider +1- [phone] Abdifatah Uriarte MD Unavailable [phone] Reason for Visit * Reason Comments Follow-up atrial septal defect * Consultation (Routine) - Closed Specialty Diagnoses / Procedures Referred By Amalia tuttle Referred To Contact Internal Medicine-Cardiovascular Disease / Cardiology Diagnoses 6-8 month check/Echo 10/04/2020 Procedures OFFICE VISIT Thea Rubio MD Phone: tel: fax: Migue Anne MD [address] [place] [address] Phone: tel: fax: Referral ID Status Reason Start Date Expiration Date Visits Re quested Visits Authorized [id number] Closed 03/06/2021 03/06/2022 99 99 Encounter Details Date Type Department Care Team (Late st Contact Info) Description 03/13/2021 8:45 AM EST [place] [address] Migue Anne MD [address] [place] [address] ASD (atrial septal defect) (Primary Dx); Palpitations; [...] 04/24/2024 10:45 AM EST Clinical Support [facility] 100 [place] [address] Scheduled Orders Name Type Priority [...] documented as of this encounter Care Teams Wireless Development Manager Relationship Specialty Start Date End Date Thea Rubio MD PCP - General Family Medicine 09/13/14 07/16/22 Abdifatah Uriarte MD [address] [place] [address] [place] [address] Consulting Physician Obstetrics & Gynecology-Gynecologic Oncology 12/16/19 documented as of this encounter
--- OUTSIDE RECORDS SUMMARY | 2024-03-15 09:54 | XMS_ITS | Encounter Summary ---
Author Organization [place] [address] Care Team Providers Care Granulator Operator Name Role Phone Thea Rubio MD Primary Care Provider +1- [phone] Abdifatah Uriarte MD Unavailable [phone] Reason for Visit * Reason Comments Atrial Septal Defect 9 month follow up G [facility] pt * Consultation (Routine) - Closed Specialty Diagnoses / Procedures Referred By Amalia tuttle Referred To Contact Internal Medicine-Cardiovascular Disease / Cardiology Diagnoses Palpitations Atrial septal defect 9 month follow up Procedures OFFICE VISIT Thea Rubio MD Phone: tel: fax: Migue Anne MD [address] [place] [address] Phone: tel: fax: Referral ID Status Reason Start Date Expiration Date Visits Re quested Visits Authorized [id number] Closed 12/07/2021 12/07/2022 99 99 Encounter Details Date Type Department Care Team (Latest Contact Info) Description 12/12/2021 10:40 AM EDT [place] [address] Ailyn Williamson PA-C ASD (atrial septal defect) [...] that she is feeling well. 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 COLONOSCOPY 01/12/2018 Dr. Aaron Rocha, with [facility]. Normal colon ??? UPPER GASTROINTESTINAL [...] yr's OV or as determined necessary per glue drier operator Thyroid Mass - no surgery - Bx 2012 - per others - being monitored - TSH 1.72 ion documented in this encounter Plan of Treatment Upcoming Encounters Date Type Department Care Team (Late st Contact Info) Description 04/24/2024 10:45 AM EST Clinical Support [facility] 100 [place] [address] documented as of this encounter [...] documented as of this encounter Care Teams Granulator Operator Relationship Specialty Start Date End Date Thea Rubio MD PCP - General Family Medicine 09/13/14 07/16/22 Abdifatah Uriarte MD [address] [place] [address] [place] [address] Consulting Physician Obstetrics & Gynecology-Gynecologic Oncology 12/16/19 documented as of this encounter
--- OUTSIDE RECORDS SUMMARY | 2024-03-15 09:54 | XMS_ITS | Encounter Summary ---
Author Organization [place] [address] Care Team Providers Care Medical Associate Name Role Phone Thea Rubio MD Primary Care Provider +1- [phone] Abdifatah Uriarte MD Unavailable [phone] Reason for Visit * Reason Comments Medication Refill Encounter Details Date Type Department Care Team (Late Contact Info) Description 03/16/2021 Refill [facility] NPTFTT [address] [place] [address] Misty Glilespie MD [address] [place] [address] Medication Refill Social History Tobacco Use Types [...] 04/24/2024 10:45 AM EST Clinical Support [facility] 100 [place] [address] documented as of this encounter [...] as of this encounter Care Teams Medical Associate Relationship Specialty Start Date End Date Thea Rubio MD PCP - General Family Medicine 09/13/14 07/16/22 Abdifatah Uriarte MD [address] [place] [address] [place] [address] Consulting Physician Obstetrics & Gynecology-Gynecologic Oncology 12/16/19 documented as of this encounter
--- OUTSIDE RECORDS SUMMARY | 2024-03-15 09:54 | XMS_ITS | Encounter Summary ---
Author Organization [place] [address] Care Team Providers Care Per Diem Name Role Phone Thea Rubio MD Primary Care Provider +1- [phone] Abdifatah Uriarte MD Unavailable [phone] Encounter Details Date Type Department Care Team (Late st Contact Info) Description 09/11/2021 Orders Only SEP [facility] [place] 711 [place], [place] [id number] Shavon Pyle MA Palpitations Social History Tobacco [...] 04/24/2024 10:45 AM EST Clinical Support [facility] 100 [place] [address] documented as of this encounter [...] documented as of this encounter Care Teams Per Diem Relationship Specialty Start Date End Date Thea Rubio MD PCP - General Family Medicine 09/13/14 07/16/22 Abdifatah Uriarte MD [address] [place] [address] [place] [address] Consulting Physician Obstetrics & Gynecology-Gynecologic Oncology 12/16/19 documented as of this encounter
--- OUTSIDE RECORDS SUMMARY | 2024-03-15 09:54 | XMS_ITS | Encounter Summary ---
Author Organization [place] [address] Care Team Providers Care Brake Assembler Name Role Phone Thea Rubio MD Primary Care Provider +1- [phone] Abdifatah Uriarte MD Unavailable [phone] Reason for Visit * Reason Comments Injections Depo-provera Encounter Details Date Type Department Care Team (Latest Contact Info) Description 05/23/2021 3:00 PM EST Clinical Support [facility]P [facility] [address] [place] [address] Es Vega MA Excessive and frequent [...] 04/24/2024 10:45 AM EST Clinical Support [facility] [place] [address] documented as of this encounter Goals Goal [...] documented as of this encounter Care Teams Brake Assembler Relationship Specialty Start Date End Date Thea Rubio MD PCP - General Family Medicine 09/13/14 07/16/22 Abdifatah Uriarte MD [address] [facility] [place] [address] Consulting Physician Obstetrics & Gynecology-Gynecologic Oncology 12/16/19 documented as of this encounter
--- OUTSIDE RECORDS SUMMARY | 2024-03-15 09:54 | XMS_ITS | Encounter Summary ---
Author Organization [place] [address] Care Team Providers Care Medical Billing Coordinator Name Role Phone Thea Rubio MD Primary Care Provider +1- [phone] Abdiftaah Uriarte MD Unavailable [phone] Reason for Visit * Reason Comments Medication Refill Encounter Details Date Type Department Care Team (Late st Contact Info) Description 05/03/2021 Refill [facility] [place] 711 [place] [address] Migue Anne MD 711 [place] [address] Medication Refill Social History Tobacco Use Types [...] 04/24/2024 10:45 AM EST Clinical Support [facility] 100 [place] [address] documented as of this encounter [...] as of this encounter Care Teams Medical Billing Coordinator Relationship Specialty Start Date End Date Thea Rubio MD PCP - General Family Medicine 09/13/14 07/16/22 Abdifatah Uriarte MD [address] [place] [address] [place] [address] Consulting Physician Obstetrics & Gynecology-Gynecologic Oncology 12/16/19 documented as of this encounter
--- OUTSIDE RECORDS SUMMARY | 2024-03-15 09:55 | XMS_ITS | Encounter Summary ---
Author Organization [place] [address] Care Team Providers Care Credit Card Clerk Name Role Phone Thea Rubio MD Primary Care Provider +1- [phone] Abdifatah Uriarte MD Unavailable [phone] Reason for Visit * Reason Comments Medication Refill Encounter Details Date Type Department Care Team (Late st Contact Info) Description 03/17/2020 Refill [facility] [place] [facility] [address] [place] [address] Migue Anne MD 711 [place] [address] Medication Refill Social History Tobacco Use Types [...] 04/24/2024 10:45 AM EST Clinical Support [facility] 100 [place] [address] documented as of this encounter [...] documented as of this encounter Care Teams Credit Card Clerk Relationship Specialty Start Date End Date Thea Rubio MD PCP - General Family Medicine 09/13/14 07/16/22 Abdifatah Uriarte MD [address] [place] [address] Consulting Physician Obstetrics & Gynecology-Gynecologic Oncology 12/16/19 documented as of this encounter
--- OUTSIDE RECORDS SUMMARY | 2024-03-15 09:55 | XMS_ITS | Encounter Summary ---
Author Organization [place] [address] Care Team Providers Care Student Ministry Pastor Name Role Phone Thea Rubio MD Primary Care Provider +1- [phone] Abdifatah Uriarte MD Unavailable [phone] Encounter Details Date Type Department Care Team (Late st Contact Info) Description 02/16/2021 Orders Only [facility] [address] [place] [address] Cassy Trujillo, RN Excessive and frequent [...] 04/24/2024 10:45 AM EST Clinical Support [facility] 100 [place] [address] documented as of this encounter [...] documented as of this encounter Care Teams Student Ministry Pastor Relationship Specialty Start Date End Date Thea Rubio MD PCP - General Family Medicine 09/13/14 07/16/22 Abdifatah Uriarte MD [address] [place] [address] [place] [address] Consulting Physician Obstetrics & Gynecology-Gynecologic Oncology 12/16/19 documented as of this encounter
--- OUTSIDE RECORDS SUMMARY | 2024-03-15 09:55 | XMS_ITS | Encounter Summary ---
Author Organization [place] [address] Care Team Providers Care Bonderizer Operator Name Role Phone Thea Rubio MD Primary Care Provider +1- [phone] Abdifatah Uriarte MD Unavailable [phone] Reason for Visit * Reason Comments Medication Refill Encounter Details Date Type Department Care Team (Late st Contact Info) Description 12/27/2020 Refill [facility] [address] [place] [address] Misty Gillespie MD [address] [place] [address] Medication Refill Social History Tobacco Use Types [...] 04/24/2024 10:45 AM EST Clinical Support [facility] 100 [place] [address] documented as of this encounter [...] documented as of this encounter Care Teams Bonderizer Operator Relationship Specialty Start Date End Date Thea Rubio MD PCP - General Family Medicine 09/13/14 07/16/22 Abdifatah Uriarte MD [address] [place] [address] [place] [address] Consulting Physician Obstetrics & Gynecology-Gynecologic Oncology 12/16/19 documented as of this encounter
--- OUTSIDE RECORDS SUMMARY | 2024-03-15 09:55 | XMS_ITS | Encounter Summary ---
Author Organization [place] [address] Care Team Providers Care Autotransfusionist Name Role Phone Thea Rubio MD Primary Care Provider +1- [phone] Abdifatah Uriarte MD Unavailable [phone] Reason for Visit * Reason Comments Medication Refill Encounter Details Date Type Department Care Team (Late st Contact Info) Description 03/08/2021 Refill [facility] [place] [facility] [address] [place] [address] Migue Anne MD 711 [place] [address] Medication Refill Social History Tobacco Use Types [...] Clinical Support [facility] 100 [place] [address] documented as of this encounter [...] documented as of this encounter Care Teams Autotransfusionist Relationship Specialty Start Date End Date Thea Rubio MD PCP - General Family Medicine 09/13/14 07/16/22 Abdifatah Uriarte MD 1 [facility] [place] [address] Consulting Physician Obstetrics & Gynecology-Gynecologic Oncology 12/16/19 documented as of this encounter
--- OUTSIDE RECORDS SUMMARY | 2024-03-15 09:55 | XMS_ITS | Encounter Summary ---
Author Organization [place] [address] Care Team Providers Care Curtain Framer Name Role Phone Thea Rubio MD Primary Care Provider +1- [phone] Abdifatah Uriarte MD Unavailable [phone] Reason for Visit * Reason Comments Injections Encounter Details Date Type Department Care Team (Latest Contact Info) Description 04/24/2020 3:00 PM EST Clinical Support [facility]P [facility] [address] [place] [address] Daniela Portillo MA Excessive and frequent [...] patient supplied. Left Deltoid, patient tolerated well. [facility] # : [id number] Lot # : [id number] Exp : 04/24/2022 documented in this encounter Plan of Treatment Upcoming Encounters Date Type Department Care Team (Late st Contact Info) Description 04/24/2024 10:45 AM EST Clinical Support [facility] 100 [place] [address] documented as of this encounter [...] documented as of this encounter Care Teams Curtain Framer Relationship Specialty Start Date End Date Thea Rubio MD PCP - General Family Medicine 09/13/14 07/16/22 Abdifatah Uriarte MD 1 [place] [address] Consulting Physician Obstetrics & Gynecology-Gynecologic Oncology 12/16/19 documented as of this encounter
--- OUTSIDE RECORDS SUMMARY | 2024-03-15 09:55 | XMS_ITS | Encounter Summary ---
Author Organization [facility] [place] [address] Care Team Providers Care Cv Rn Name Role Phone Thea Rubio MD Primary Care Provider +1- [phone] Abdifatah Uriarte MD Unavailable [phone] Encounter Details Date Type Department Care Team [...] 04/24/2024 10:45 AM EST Clinical Support [facility] 100 [place] [address] documented as of this encounter [...] documented as of this encounter Care Teams Cv Rn Relationship Specialty Start Date End Date Thea Rubio MD PCP - General Family Medicine 09/13/14 07/16/22 Abdifatah Uriarte MD [address] [place] [address] [place] [address] Consulting Physician Obstetrics & Gynecology-Gynecologic Oncology 12/16/19 documented as of this encounter
--- OUTSIDE RECORDS SUMMARY | 2024-03-15 09:55 | XMS_ITS | Encounter Summary ---
Author Organization [place] [address] Care Team Providers Care Van Loader Name Role Phone Thea Rubio MD Primary Care Provider +1- [phone] Abdifatah Uriarte MD Unavailable [phone] Reason for Visit * Reason Onset Date Comments Palpitations 09/11/2020 Encounter Details Date Type Department Care Team (Late st Contact Info) Description 09/11/2020 Telephone [facility] [place] [facility] [address] [place] [address] Migue Anne MD 711 [place] [address] Palpitations Social History Tobacco Use Types Packs/Day [...] Clinical Support [facility] 100 [place] [address] documented as of this encounter [...] documented as of this encounter Care Teams Van Loader Relationship Specialty Start Date End Date Thea Rubio MD PCP - General Family Medicine 09/13/14 07/16/22 Abdifatah Uriarte MD [address] [place] [address] [place] [address] Consulting Physician Obstetrics & Gynecology-Gynecologic Oncology 12/16/19 documented as of this encounter
--- OUTSIDE RECORDS SUMMARY | 2024-03-15 09:55 | XMS_ITS | Encounter Summary ---
Author Organization [facility] [place] [address] Care Team Providers Care Serology Technician Name Role Phone Thea Rubio MD Primary Care Provider +1- [phone] Abdifatah Uriarte MD Unavailable [phone] Encounter Details Date Type Department Care Team [...] 04/24/2024 10:45 AM EST Clinical Support [facility] 100 [place] [address] documented as of this encounter [...] documented as of this encounter Care Teams Serology Technician Relationship Specialty Start Date End Date Thea Rubio MD PCP - General Family Medicine 09/13/14 07/16/22 Abdifatah Uriarte MD [address] [place] [address] [place] [address] Consulting Physician Obstetrics & Gynecology-Gynecologic Oncology 12/16/19 documented as of this encounter
--- OUTSIDE RECORDS SUMMARY | 2024-03-15 09:55 | XMS_ITS | Encounter Summary ---
Author Organization [place] [address] Care Team Providers Care Administration Physician Name Role Phone Thea Rubio MD Primary Care Provider +1- [phone] Abdifatah Uriarte MD Unavailable [phone] Reason for Visit * Reason Onset Date Comments Medication Refill 02/16/2021 Encounter Details Date Type Department Care Team (Late Contact Info) Description 02/16/2021 Telephone [facility] [place] [address] [place] [address] Misty Gillespie MD [address] [place] [address] Medication Refill Social History Tobacco Use Types [...] inj scheduled for 03/05. Send Rx to [facility] in [place]. documented in this encounter Plan of Treatment Upcoming Encounters Date Type Department Care Team (Late st Contact Info) Description 04/24/2024 10:45 AM EST Clinical Support [facility] 100 [place] [address] documented as of this encounter [...] documented as of this encounter Care Teams Administration Physician Relationship Specialty Start Date End Date Thea Rubio MD PCP - General Family Medicine 09/13/14 07/16/22 Abdifatah Uriarte MD [address] [place] [address] Consulting Physician Obstetrics & Gynecology-Gynecologic Oncology 12/16/19 documented as of this encounter
--- OUTSIDE RECORDS SUMMARY | 2024-03-15 09:55 | XMS_ITS | Encounter Summary ---
Author Organization [place] [address] Care Team Providers Care Trauma Doctor Name Role Phone Thea Rubio MD Primary Care Provider +1- [phone] Abdifatah Uriarte MD Unavailable [phone] Reason for Visit * Reason Comments Medication Refill Encounter Details Date Type Department Care Team (Late st Contact Info) Description 10/28/2020 Refill [facility] [place] [facility] [address] [place] [address] Migue Anne MD 711 [place] [address] Medication Refill Social History Tobacco Use Types [...] 04/24/2024 10:45 AM EST Clinical Support [facility] 100 [place] [address] documented as of this encounter [...] documented as of this encounter Care Teams Trauma Doctor Relationship Specialty Start Date End Date Thea Rubio MD PCP - General Family Medicine 09/13/14 07/16/22 Abdifatah Uriarte MD [address] [place] [address] [place] [address] Consulting Physician Obstetrics & Gynecology-Gynecologic Oncology 12/16/19 documented as of this encounter
--- OUTSIDE RECORDS SUMMARY | 2024-03-15 09:55 | XMS_ITS | Encounter Summary ---
Author Organization [place] [address] Care Team Providers Care Peoplesoft Financial Developer Name Role Phone Thea Rubio MD Primary Care Provider +1- [phone] Abdifatah Uriarte MD Unavailable [phone] Encounter Details Date Type Department Care Team (Late st Contact Info) Description 12/20/2020 Orders Only [facility] [address] [place] [address] Christina Oreilly RN Excessive and [...] Clinical Support [facility] 100 [place] [address] documented as of [...] documented as of this encounter Care Teams Peoplesoft Financial Developer Relationship Specialty Start Date End Date Thea Rubio MD PCP - General Family Medicine 09/13/14 07/16/22 Abdifatah Uriarte MD [address] [place] [address] Consulting Physician Obstetrics & Gynecology-Gynecologic Oncology 12/16/19 documented as of this encounter
--- OUTSIDE RECORDS SUMMARY | 2024-03-15 09:55 | XMS_ITS | Encounter Summary ---
Author Organization [place] [address] Care Team Providers Care Cdl Bulk Driver Name Role Phone Thea Rubio MD Primary Care Provider +1- [phone] Abdifatah Uriarte MD Unavailable [phone] Reason for Visit * Reason Comments Injections Encounter Details Date Type Department Care Team (Latest Contact Info) Description 12/21/2020 10:00 AM EDT Clinical Support [facility] [address] [place] [address] Chelsea Agee RMA Excessive or frequent [...] 04/24/2024 10:45 AM EST Clinical Support [facility] 100 [place] [address] documented as of this encounter [...] Last Ordered Date First Ordered Date medroxyPROGESTERone (DEPO-[place] OVERA) injection 150 mg 1 12/21/2020 documented in this encounter Additional Health Concerns Assessment Noted Time PHQ-9 Depression Total Score: 2 10/07/19 18 8:00 AM EDT PHQ-2 Depression Total Score: 2 10/07/19 18 8:00 AM EDT documented as of this encounter Care Teams Cdl Bulk Driver Relationship Specialty Start Date End Date Thea Rubio MD PCP - General Family Medicine 09/13/14 07/16/22 Abdifatah Uriarte MD [address] [facility] [place] [address] Consulting Physician Obstetrics & Gynecology-Gynecologic Oncology 12/16/19 documented as of this encounter
--- OUTSIDE RECORDS SUMMARY | 2024-03-15 09:55 | XMS_ITS | Encounter Summary ---
Author Organization [place] [address] Care Team Providers Care Mechanic Sound Technician Name Role Phone Thea Rubio MD Primary Care Provider +1- [phone] Abdifatah Uriarte MD Unavailable [phone] Reason for Visit * Reason Onset Date Comments Medication Refill 06/27/2020 Encounter Details Date Type Department Care Team (Late st Contact Info) Description 06/27/[address] [facility] [address] [place] [address] Misty Gillespie MD 6[address] [place] [address] Medication Refill Social History Tobacco Use Types [...] Clinical Support [facility] 100 [place] [address] documented as of this encounter [...] documented as of this encounter Care Teams Mechanic Sound Technician Relationship Specialty Start Date End Date Thea Rubio MD PCP - General Family Medicine 09/13/14 07/16/22 Abdifatah Uriarte MD 1 [facility] [place] [address] Consulting Physician Obstetrics & Gynecology-Gynecologic Oncology 12/16/19 documented as of this encounter
--- OUTSIDE RECORDS SUMMARY | 2024-03-15 09:55 | XMS_ITS | Encounter Summary ---
Author Organization [facility] [place] [address] Care Team Providers Care Zoology Professor Name Role Phone Thea Rubio MD Primary Care Provider +1- [phone] Abdifatah Uriarte MD Unavailable [phone] Encounter Details Date Type Department Care Team [...] 04/24/2024 10:45 AM EST Clinical Support [facility] 100 [place] [address] documented as of this encounter [...] documented as of this encounter Care Teams Zoology Professor Relationship Specialty Start Date End Date Thea Rubio MD PCP - General Family Medicine 09/13/14 07/16/22 Abdifatah Uriarte MD [address] [place] [address] [place] [address] Consulting Physician Obstetrics & Gynecology-Gynecologic Oncology 12/16/19 documented as of this encounter
--- OUTSIDE RECORDS SUMMARY | 2024-03-15 09:55 | XMS_ITS | Encounter Summary ---
Author Organization [facility] [address] Care Team Providers Care Rn Icu Name Role Phone Thea Rubio MD Primary Care Provider +1- [phone] Abdifatah Uriarte MD Unavailable Reason for Visit * Reason Onset Date Comments Medication Refill 04/03/2020 Encounter Details Date Type Department Care Team (Late st Contact Info) Description 04/03/2020 Refill SEP [facility] [address] [place] [address] Misty Gillespie MD [address] [place] [address] Medication Refill Social History Tobacco Use Types [...] EST medroxyPROGESTERone (DEPO-PROVERA) injection 150 mg ?? [[id number]] Order Details Ordered Dose: 150 mg Route: Intramuscular Frequency: ONCE Administration Dose: 150 mg Scheduled Start Date/Time: 01/24/201544 End Date/Time: 01/24/20 154 after 1 doses ?? Diagnosis Association: Excessive and frequent menstruation (N92.0) Order Status: Completed FriJan 24, 2020 1542, originally scheduled to end FriJan 25, 2020 0345 Ordering User: La Flynn MA Ordering Date/Time: FriJan 24, 2020 1542 Ordering Provider: iMsty Gillespie MD Refill needed, appt 04/24/20 documented in this encounter Plan of Treatment Upcoming Encounters Date Type Department Care Team (Late st Contact Info) Description 04/24/2024 10:45 AM EST Clinical Support [facility] 100 [place] [address] documented as of this encounter Goals Goal [...] as of this encounter Care Teams Rn Icu Relationship Specialty Start Date End Date Thea Rubio MD PCP - General Family Medicine 09/13/14 07/16/22 Abdifatah Uriarte MD [address] [place] [address] [place] [address] Consulting Physician Obstetrics & Gynecology-Gynecologic Oncology 12/16/19 documented as of this encounter
--- OUTSIDE RECORDS SUMMARY | 2024-03-15 09:55 | XMS_ITS | Encounter Summary ---
Author Organization [place] [address] Care Team Providers Care Preschool Program Director Name Role Phone Thea Rubio MD Primary Care Provider +1- [phone] Abdifatah Uriarte MD Unavailable [phone] Reason for Visit * Reason Onset Date Comments Medication Refill 12/20/2020 Encounter Details Date Type Department Care Team (Late st Contact Info) Description 12/20/2020 Refill [facility] [address] [place] [address] Misty Gillespie MD [address] [place] [address] Medication Refill Social History Tobacco Use Types [...] Refill sent * Telephone Encounter - Luba aRin - 12/20/2020 4:00 PM EDT Images from the original note were not included. Please call in depo. Appoitnment tomorrow. medroxyPROGESTERone medroxyPROGESTERone (DEPO-PROVERA) 150 mg/mL IM Suspension INJECT ONE ML INTRAMUSCULARLY FOR 1 DOSE, Disp-1 Vial, R-0, Normal Dispense: 1 Vial Refills: 0 ordered Pharmacy: [address] [id number] [phone] ( ) Order Details Ordered on: 07/13/20 Associated Dx: Excessive and frequent menstruation Authorizing provider: Misty Gillespie MD documented in this encounter Plan of Treatment Upcoming Encounters Date Type Department Care Team (Late st Contact Info) Description 04/24/2024 10:45 AM EST Clinical Support [facility] 100 [place] [address] documented as of this encounter Goals Goal [...] documented as of this encounter Care Teams Preschool Program Director Relationship Specialty Start Date End Date Thea Rubio MD PCP - General Family Medicine 09/13/14 07/16/22 Abdifatah Uriarte MD [address] [place] [address] [place] [address] Consulting Physician Obstetrics & Gynecology-Gynecologic Oncology 12/16/19 documented as of this encounter
--- OUTSIDE RECORDS SUMMARY | 2024-03-15 09:55 | XMS_ITS | Encounter Summary ---
Author Organization [place] [address] Care Team Providers Care Professional System Administrator Name Role Phone Thea Rubio MD Primary Care Provider +1- [phone] Abdifatah Uriarte MD Unavailable [phone] Reason for Visit * Reason Comments Injections depo Encounter Details Date Type Department Care Team (Latest Contact Info) Description 07/11/2020 4:00 PM EDT Clinical Support [facility] [address] [place] [address] Es Vega MA Excessive and frequent [...] 4:00 [place] [id number] 06/2022 documented in this encounter Plan of Treatment Upcoming Encounters Date Type Department Care Team (Late st Contact Info) Description 04/24/2024 10:45 AM EST Clinical Support [facility] [address] [place] [phone] documented as of this encounter Goals Goal [...] as of this encounter Care Teams Professional System Administrator Relationship Specialty Start Date End Date Thea Rubio MD PCP - General Family Medicine 09/13/14 07/16/22 Abdifatah Uriarte MD 1 [facility] [place] [address] Consulting Physician Obstetrics & Gynecology-Gynecologic Oncology 12/16/19 documented as of this encounter
--- OUTSIDE RECORDS SUMMARY | 2024-03-15 09:55 | XMS_ITS | Encounter Summary ---
Author Organization [facility] [place] [address] Care Team Providers Care Medical Records Field Technician Name Role Phone Thea Rubio MD Primary Care Provider +1- [phone] Abdifatah Uriarte MD Unavailable [phone] Encounter Details Date Type Department Care Team [...] 04/24/2024 10:45 AM EST Clinical Support [facility] 100 [place] [address] documented as of this encounter [...] as of this encounter Care Teams Medical Records Field Technician Relationship Specialty Start Date End Date Thea Rubio MD PCP - General Family Medicine 09/13/14 07/16/22 Abdifatah Uriarte MD [address] [place] [address] [place] [address] Consulting Physician Obstetrics & Gynecology-Gynecologic Oncology 12/16/19 documented as of this encounter
--- OUTSIDE RECORDS SUMMARY | 2024-03-15 09:55 | XMS_ITS | Encounter Summary ---
Author Organization [place] [address] Care Team Providers Care Threading Machine Operator Name Role Phone Thea Rubio MD Primary Care Provider +1- [phone] Abdifatah Uriarte MD Unavailable [phone] Reason for Referral * Echo (Routine) - Closed Specialty Diagnoses / Procedures Referred By Amalia tuttle Referred To Contact Radiology Diagnoses ASD (atrial septal defect) SOB (shortness of breath) Procedures EC ECHOCARDIOGRAM COMPLETE W DOPPLER AND COLOR FLOW MAPPING Migue Anne MD Phone: tel: fax: Referral ID Status Reason Start Date Expiration Date Visits Re quested Visits Authorized [id number] Closed 08/07/2020 08/07/2022 1 1 Reason for [...] Phone: tel: fax: Migue Anne MD [address] [place] [address] Phone: tel: fax: Referral ID Status Reason Start Date Expiration Date Visits Re quested Visits Authorized [id number] Closed 12/16/2019 12/15/2020 99 99 Encounter Details Date Type Department Care Team (Late st Contact Info) Description 08/07/2020 3:15 PM EDT Office Visit [facility] [address] [place] [address] Migue Anne MD [address] [facility] [place] [address] ASD (atrial septal defect) (Primary Dx); Chest [...] Amlodipine. She recently received a promotion at [employer], now in a less labor intensive job. [...] Description 04/24/2024 10:45 AM EST Clinical Support [facility] [address] [place] [address] documented as of this encounter [...] documented as of this encounter Care Teams Threading Machine Operator Relationship Specialty Start Date End Date Thea Rubio MD PCP - General Family Medicine 09/13/14 07/16/22 Abdifatah Uriarte MD [address] [place] [address] [place] [phone] Consulting Physician Obstetrics & Gynecology-Gynecologic Oncology 12/16/19 documented as of this encounter
--- OUTSIDE RECORDS SUMMARY | 2024-03-15 09:55 | XMS_ITS | Encounter Summary ---
Author [place] [address] Care Team Providers Care Boring Mill Operator For Metal Name Role Phone Thea Rubio MD Primary Care Provider +1- [phone] Abdifatah Uriarte MD Unavailable Reason for Referral * Echo (Routine) - Closed Specialty Diagnoses / Procedures Referred By Contac t Referred To Contact Radiology Diagnoses ASD (atrial septal defect) SOB (shortness of breath) Procedures EC ECHOCARDIOGRAM COMPLETE W DOPPLER AND COLOR FLOW MAPPING Migue Anne MD Phone: tel: fax: Referral ID Status Reason Start Date Expiration Date Visits Re quested Visits Authorized [id number] Closed 08/07/2020 08/07/2022 1 1 Reason for Visit * Echo (Routine) - Closed Specialty Diagnoses / Procedures Referred By Contac t Referred To Contact Radiology Diagnoses ASD (atrial septal defect) SOB (shortness of breath) Procedures EC ECHOCARDIOGRAM COMPLETE W DOPPLER AND COLOR FLOW MAPPING Migue Anne MD Phone: tel: fax: Referral ID Status Reason Start Date Expiration Date Visits Re quested Visits Authorized [id number] Closed 08/07/2020 08/07/2022 1 1 Encounter Details Date Type Department Care Team (Latest Contact Info) Description 10/06/2020 12:47 PM EDT - 10/06/2020 11:59 PM EDT Hospital Encounter [facility] [address] [place] [address] Migue Anne MD 7[address] [facility] [place] [address] ASD (atrial septal defect); [...] EST Clinical Support [facility] 100 [place] [address] documented as of this encounter [...] documented as of this encounter Care Teams Boring Mill Operator For Metal Relationship Specialty Start Date End Date Thea Rubio MD PCP - General Family Medicine 09/13/14 07/16/22 Abdifatah Uriarte MD [address] [place] [address] [place] [address] Consulting Physician Obstetrics & Gynecology-Gynecologic Oncology 12/16/19 documented as of this encounter
--- OUTSIDE RECORDS SUMMARY | 2024-03-15 09:55 | XMS_ITS | Encounter Summary ---
Author Organization [place] [address] Care Team Providers Care Manager Control Name Role Phone Thea Rubio MD Primary Care Provider +1- [phone] Abdifatah Uriarte MD Unavailable [phone] Reason for Visit * Reason Comments Medication Refill Encounter Details Date Type Department Care Team (Late st Contact Info) Description 04/18/2020 Refill [facility] [address] [place] [address] Migue Anne MD [address] [place] [address] Medication Refill Social History Tobacco Use Types [...] 04/24/2024 10:45 AM EST Clinical Support [facility] 100 [place] [address] documented as of this [...] as of this encounter Care Teams Manager Control Relationship Specialty Start Date End Date Thea Rubio MD PCP - General Family Medicine 09/13/14 07/16/22 Abdifatah Uriarte MD [address] [place] [address] [place] [address] Consulting Physician Obstetrics & Gynecology-Gynecologic Oncology 12/16/19 documented as of this encounter
--- OUTSIDE RECORDS SUMMARY | 2024-03-15 09:55 | XMS_ITS | Encounter Summary ---
Author Organization [place] [address] Care Team Providers Care Log Rider Name Role Phone Thea Rubio MD Primary Care Provider +1- [phone] Abdifatah Urirate MD Unavailable [phone] Reason for Referral * Mammography (Routine) - Closed Specialty Diagnoses / Procedures Referred By Amalia tuttle Referred To Contact Radiology Diagnoses Breast lump on left side at 1 o'clock position Procedures MM US BREAST LIMITED LEFT Misty Gillespie MD [address] [place] [address] Phone: tel: fax: Referral ID Status Reason Start Date Expiration Date Visits Re quested Visits Authorized [id number] Closed 10/04/2020 10/04/2022 11 11 Reason for Visit * Mammography (Routine) - Closed Specialty Diagnoses / Procedures Referred By Amalia tuttle Referred To Contact Radiology Diagnoses Breast lump on left side at 1 o'clock position Procedures MM US BREAST LIMITED LEFT Misty Gillespie MD [address] [place] [address] Phone: tel: fax: Referral ID Status Reason Start Date Expiration Date Visits Re quested Visits Authorized [id number] Closed 10/04/2020 10/04/2022 11 11 Encounter Details Date Type Department Care Team (Late st Contact Info) Description 10/30/2020 7:51 AM EDT - 10/30/2020 11:59 PM EDT Hospital Encounter [facility] [address] [place], [place] [address] Misty Gillespie MD [address] [place] [id number] Breast lump on left side at 1 [...] 04/24/2024 10:45 AM EST Clinical Support [facility] 100 [place] [address] documented as of this encounter Goals Goal [...] EDT Impressions 10/30/2020 2:37 PM EDT Negative ??([id number]) ~ RECOMMENDATION: Routine screening mammogram in 1 [...] lump in the left breast, upper outer cltkmyqm-VWO-96-CM ~ MM US BREAST LIMITED LEFT Technologist: [...] N63.21-Unspecified lump in the left breast, upper nrjegjsrgbdwe-UPJ-23-CM ~ MM US BREAST LIMITED LEFT Technologist: Aliyah Forrester ~ Prior study comparison: Compared with prior studies, the most recentbeing diagnostic mammogram dated 10/30/2020. There are no sonographic findings in the left breast to correspond the patient's palpable finding. ~ IMPRESSION: Negative ([id number]) ~ RECOMMENDATION: Routine screening mammogram in 1 [...] documented as of this encounter Care Teams Log Rider Relationship Specialty Start Date End Date Thea Rubio MD PCP - General Family Medicine 09/13/14 07/16/22 Abdifatah Uriarte MD [address] [place] [address] Consulting Physician Obstetrics & Gynecology-Gynecologic Oncology 12/16/19 documented as of this encounter
--- OUTSIDE RECORDS SUMMARY | 2024-03-15 09:55 | XMS_ITS | Encounter Summary ---
Author Organization [facility] [place] [address] Care Team Providers Care Game Warden Name Role Phone Thea Rubio MD Primary Care Provider +1- [phone] Abdifatah Uriarte MD Unavailable [phone] Encounter Details Date Type Department Care Team [...] 04/24/2024 10:45 AM EST Clinical Support [facility] 100 [place] [address] documented as of this encounter Goals Goal Patient Goal Type Associated Problems Recent Progress Patient-Stated? Author Maintain a healthy diet, exercise regularly and maintain an ideal body weight General No Thea Rubio MD Stay Tobacco Free Lifestyle No Teha Rubio MD documented as of this encounter Visit Diagnoses Not on filedocumented in this encounter Additional Health Concerns Assessment Noted Time PHQ-9 Depression Total Score: 2 10/07/19 18 8:00 AM EDT PHQ-2 Depression Total Score: 2 10/07/19 18 8:00 AM EDT documented as of this encounter Care Teams Game Warden Relationship Specialty Start Date End Date Thea Rubio MD PCP - General Family Medicine 09/13/14 07/16/22 Abdifatah Uriarte MD [address] [place] [address] [place] [address] Consulting Physician Obstetrics & Gynecology-Gynecologic Oncology 12/16/19 documented as of this encounter
--- OUTSIDE RECORDS SUMMARY | 2024-03-15 09:55 | XMS_ITS | Encounter Summary ---
Author Organization [place] [address] Care Team Providers Care Welding Machine Feeder Name Role Phone Thea Rubio MD Primary Care Provider +1- [phone] Abdifatah Uriarte MD Unavailable [phone] Reason for Referral * Mammography (Routine) - Closed Specialty Diagnoses / Procedures Referred By Amalia tuttle Referred To Contact Radiology Diagnoses Breast lump on left side at 1 o'clock position Procedures MM MAMMO DIGITAL MADELEINE DIAGN BILAT MM MAMMO DIGITAL DIAGNOSTIC W CAD BILAT MM MAMMO DIGITAL DIAGNOSTIC W CAD LEFT Misty Gillespie MD [address] [place] [address] Phone: tel: fax: Referral ID Status Reason Start Date Expiration Date Visits Re quested Visits Authorized [id number] Closed 10/04/2020 10/04/2022 1 1 Reason for [...] Gillespie MD [address] [place] [address] Phone: tel: fax: Referral ID Status Reason Start Date Expiration Date Visits Re quested Visits Authorized [id number] Closed 10/04/2020 10/04/2022 1 1 Encounter Details Date Type Department Care Team (Late st Contact Info) Description 10/30/2020 7:20 AM EDT - 10/30/2020 7:50 AM EDT Hospital Encounter [facility] [address] [place] [address] Misty Gillespie MD [address] [place] [id number] Breast lump on left side at 1 [...] Support [facility] 100 [place] [address] documented as of this encounter Goals Goal Patient Goal Type Associated Problems Recent Progress Patient-Stated? Author Maintain a healthy diet, exercise regularly and maintain an ideal body weight General No Thea Rubio MD Stay Tobacco Free Lifestyle No Thea Rubio MD documented as of this encounter Procedures Procedure Name Priority Date/Time Associated Diagnosis Comments MM MAMMO DIGITAL MADELEINE DIAGN BILAT Routine 10/30/2020 7:46 AM EDT Breast lump on left side at 1 o'clock position documented in this encounter Results * MM MAMMO DIGITAL MADELEINE DIAGN BILAT (10/30/2020 7:46 AM EDT) Anatomical Region Laterality Modality Breast Bilateral Mammography 10/30/2020 2:43 PM EDT Impressions 10/30/2020 2:43 PM EDT Incomplete-need additional imaging evaluation ([id number]) ~ RECOMMENDATION: Ultrasound of the left breast. [...] the next mammogram, in accordance with the [employer] and the Society of Breast Imaging recommendations. Narrative 10/30/2020 2:43 PM EDT Procedure:MM MAMMO DIGITAL MADELEINE DIAGN BILAT ~ Reason for exam: clinical finding. N63.21-Unspecified lump in the left breast, upper outer meakizza-AKV-77-CM ~ MM MAMMO DIGITAL MADELEINE DIAGN BILAT [...] N63.21-Unspecified lump in the left breast, upper trutzuiufpwpu-ETU-39-CM ~ MM MAMMO DIGITAL MADELEINE DIAGN BILAT [...] 10/07/2019. ~ IMPRESSION: Incomplete-need additional imaging evaluation ([id number]) ~ RECOMMENDATION: Ultrasound of the left breast. [...] the next mammogram, in accordance with the [employer] and the Society of [...] documented as of this encounter Care Teams Welding Machine Feeder Relationship Specialty Start Date End Date Thea Rubio MD PCP - General Family Medicine 09/13/14 07/16/22 Abdifatah Uriarte MD [address] [place] [address] [place] [address] Consulting Physician Obstetrics & Gynecology-Gynecologic Oncology 12/16/19 documented as of this encounter
--- OUTSIDE RECORDS SUMMARY | 2024-03-15 09:55 | XMS_ITS | Encounter Summary ---
Author Organization [facility] [place] [address] Care Team Providers Care Librarian Head Name Role Phone Thea Rubio MD Primary Care Provider +1- [phone] Abdifatah Uriarte MD Unavailable [phone] Encounter Details Date Type Department Care Team [...] 04/24/2024 10:45 AM EST Clinical Support [facility] [address] [place] [address] documented as of this encounter [...] documented as of this encounter Care Teams Librarian Head Relationship Specialty Start Date End Date Thea Rubio MD PCP - General Family Medicine 09/13/14 07/16/22 Abdifatah Uriarte MD [address] [place] [address] [place] [address] Consulting Physician Obstetrics & Gynecology-Gynecologic Oncology 12/16/19 documented as of this encounter
--- OUTSIDE RECORDS SUMMARY | 2024-03-15 09:55 | XMS_ITS | Encounter Summary ---
Author Organization [place] [address] Care Team Providers Care Carton Stamper Name Role Phone Thea Rubio MD Primary Care Provider +1- [phone] Abdifatah Uriarte MD Unavailable [phone] Reason for Visit * Reason Comments Medication Refill Encounter Details Date Type Department Care Team (Late Contact Info) Description 07/13/2020 Refill [facility] [address] [place] [address] Misty Gillespie MD [address] [place] [address] Medication Refill Social History Tobacco Use Types [...] EST Clinical Support [facility] 100 [place] [address] documented as of this encounter [...] documented as of this encounter Care Teams Carton Stamper Relationship Specialty Start Date End Date Tcheng, Alvena Margarito, MD PCP - General Family Medicine 09/13/14 07/16/22 Abdifatah Uriarte MD [address] [place] [address] [place] [address] Consulting Physician Obstetrics & Gynecology-Gynecologic Oncology 12/16/19 documented as of this encounter
--- OUTSIDE RECORDS SUMMARY | 2024-03-15 09:55 | XMS_ITS | Encounter Summary ---
Author Organization [facility] [place] [address] Care Team Providers Care Machine Turner Name Role Phone Thea Rubio MD Primary Care Provider +1- [phone] Abdifatah Uriarte MD Unavailable [phone] Encounter Details Date Type Department Care Team [...] 04/24/2024 10:45 AM EST Clinical Support [facility] [address] [place] [address] documented as of this [...] as of this encounter Care Teams Machine Turner Relationship Specialty Start Date End Date Thea Rubio MD PCP - General Family Medicine 09/13/14 07/16/22 Abdifatah Uriarte MD [address] [place] [address] [place] [address] Consulting Physician Obstetrics & Gynecology-Gynecologic Oncology 12/16/19 documented as of this encounter
--- OUTSIDE RECORDS SUMMARY | 2024-03-15 09:55 | XMS_ITS | Encounter Summary ---
Author Organization [facility] [place] [address] Care Team Providers Care Social Worker Assistant Name Role Phone Thea Rubio MD Primary Care Provider +1- [phone] Abdifatah Uriarte MD Unavailable [phone] Encounter Details Date Type Department Care Team [...] 04/24/2024 10:45 AM EST Clinical Support [facility] 100 [place] [address] documented as of this encounter [...] documented as of this encounter Care Teams Social Worker Assistant Relationship Specialty Start Date End Date Thea Rubio MD PCP - General Family Medicine 09/13/14 07/16/22 Abdifatah Uriarte MD [address] [place] [address] [place] [address] Consulting Physician Obstetrics & Gynecology-Gynecologic Oncology 12/16/19 documented as of this encounter
--- OUTSIDE RECORDS SUMMARY | 2024-03-15 09:55 | XMS_ITS | Encounter Summary ---
Author Organization [facility] [address] Care Team Providers Care Lead Accountant Name Role Phone Thea Rubio MD Primary Care Provider +1- [phone] Abdifatah Uriarte MD Unavailable [phone] Encounter Details Date Type Department Care Team [...] 04/24/2024 10:45 AM EST Clinical Support [facility] [address] [place] [address] documented as of this encounter [...] as of this encounter Care Teams Lead Accountant Relationship Specialty Start Date End Date Thea Rubio MD PCP - General Family Medicine 09/13/14 07/16/22 Abdifatah Uriarte MD [address] [place] [address] [place] [address] Consulting Physician Obstetrics & Gynecology-Gynecologic Oncology 12/16/19 documented as of this encounter
--- OUTSIDE RECORDS SUMMARY | 2024-03-15 09:55 | XMS_ITS | Encounter Summary ---
Author Organization [facility] [place] [address] Care Team Providers Care Code Enforcement Officer Name Role Phone Thea Rubio MD Primary Care Provider +1- [phone] Abdifatah Uriarte MD Unavailable [phone] Reason for Referral * Mammography (Routine) - Closed Specialty Diagnoses / Procedures Referred By Contac t Referred To Contact Radiology Diagnoses Breast lump on left side at 1 o'clock position Procedures MM MAMMO DIGITAL MADELEINE DIAGN BILAT MM MAMMO DIGITAL DIAGNOSTIC W CAD BILAT MM MAMMO DIGITAL DIAGNOSTIC W CAD LEFT Misty Gillespie MD [address] [place] [address] Phone: tel: fax: Referral ID Status Reason Start Date Expiration Date Visits Re quested Visits Authorized [id number] Closed 10/04/2020 10/04/2022 1 1 * Mammography (Routine) - Closed Specialty Diagnoses / Procedures Referred By Contac t Referred To Contact Radiology Diagnoses Breast lump on left side at 1 o'clock position Procedures MM US BREAST LIMITED LEFT Misty Gillespie MD [address] [place] [address] Phone: tel: fax: Referral ID Status Reason Start Date Expiration Date Visits Re quested Visits Authorized [id number] Closed 10/04/2020 10/04/2022 11 11 Reason for Visit * Reason Comments Routine Visit Encounter Details Date Type Department Care Team (Late st Contact Info) Description 10/04/2020 3:30 PM EDT Office Visit [facility] [address] [place] [address] Misty Gillespie MD [address] [place] [id number] Well woman exam (Primary Dx); Excessive and [...] Gillespie MD - 10/04/2020 3:30 PM EDT SUPERVISOR SCREEN PRINTING ANNUAL EXAM HPI: Patient is a 40 [...] ??? COLONOSCOPY 01/12/2018 Dr. Aaron Rocha, with [facility]. Normal colon ??? UPPER GASTROINTESTINAL [...] for annual exam: 1. Well woman exam [facility] SUPERVISOR SCREEN PRINTING CYTOLOGY ORDER DISCONTINUED: medroxyPROGESTERone (DEPO-PROVERA) injection 150 mg 2. Excessive and frequent menstruation medroxyPROGESTERone (DEPO-PROVERA) injection 150 mg 3. Breast lump on left side at 1 o'clock position MM MAMMO DIGITAL DIAGNOSTIC W CAD LEFT MM US BREAST LIMITED LEFT - RTO 1 year or prn Misty Gillespie MD * Es Vega MA - 10/04/2020 3:30 PM EDT Depo inj Pt supplied [id number] 09/2022 documented in this encounter Plan of Treatment Upcoming Encounters Date Type Department Care Team (Late st Contact Info) Description 04/24/2024 10:45 AM EST Clinical Support [facility] [address] [place] [address] documented as of this encounter Goals Goal Patient Goal Type Associated Problems Recent Progress Patient-Stated? Author Maintain a healthy diet, exercise regularly and maintain an ideal body weight General No Thea Rubio MD Stay Tobacco Free Lifestyle No Thea Rubio MD documented as of this encounter Procedures Procedure Name Priority Date/Time Associated Diagnosis Comments SUPERVISOR SCREEN PRINTING CYTOLOGY REQUEST (PAP ONLY) Routine 10/04/2020 4:41 PM EDT Well woman exam [facility] SUPERVISOR SCREEN PRINTING CYTOLOGY ORDER Routine 10/04/2020 4:41 PM EDT Well woman exam HPV HIGH RISK Routine 10/04/2020 4:41 PM EDT Well woman exam documented in this encounter Results * MM US BREAST LIMITED LEFT (10/30/2020 8:03 AM EDT) Anatomical Region Laterality Modality Breast Left Ultrasound 10/30/2020 2:37 PM EDT Impressions 10/30/2020 2:37 PM EDT Negative ??(HGQ-Pruhfmzm-8) ~ RECOMMENDATION: Routine screening mammogram in 1 [...] the next mammogram, in accordance with the [employer] and the Society of Breast Imaging recommendations. Narrative 10/30/2020 2:37 PM EDT Procedure:MM US BREAST LIMITED LEFT ~ Reason for exam: characterization of a palpable mass. N63.21-Unspecified lump in the left breast, upper outer btgsoljt-AZQ-13-CM ~ MM US BREAST LIMITED LEFT Technologist: [...] N63.21-Unspecified lump in the left breast, upper razmjyzsvifkp-ATK-57-CM ~ MM US BREAST LIMITED LEFT Technologist: Aliyah Forrester ~ Prior study comparison: Compared with prior studies, the most recentbeing diagnostic mammogram dated 10/30/2020. There are no sonographic findings in the left breast to correspond the patient's palpable finding. ~ IMPRESSION: Negative (CEM-Zjvkjvrx-9) ~ RECOMMENDATION: Routine screening mammogram in 1 [...] the next mammogram, in accordance with the [employer] and the Society of Breast Imaging recommendations. us Misty Gillespie MD IMG MAMMOGRAPHY ORDERABLES Final Result * MM MAMMO DIGITAL MADELEINE DIAGN BILAT (10/30/2020 7:46 AM EDT) Anatomical Region Laterality Modality Breast Bilateral Mammography 10/30/2020 2:43 PM EDT Impressions 10/30/2020 2:43 PM EDT Incomplete-need additional imaging evaluation (KFA-Jpkikxhq-2) ~ RECOMMENDATION: Ultrasound of the left breast. [...] the next mammogram, in accordance with the [employer] and the Society of Breast Imaging recommendations. Narrative 10/30/2020 2:43 PM EDT Procedure:MM MAMMO DIGITAL MADELEINE DIAGN BILAT ~ Reason for exam: clinical finding. N63.21-Unspecified lump in the left breast, upper outer fxajaioq-SOJ-43-CM ~ MM MAMMO DIGITAL MADELIENE DIAGN BILAT Bilateral CC and MLO view(s) [...] N63.21-Unspecified lump in the left breast, upper xvwiuwzzccrdv-RYP-37-CM ~ MM MAMMO DIGITAL MADELEINE DIAGN BILAT [...] 10/07/2019. ~ IMPRESSION: Incomplete-need additional imaging evaluation (TSI-Pfqkxwqh-8) ~ RECOMMENDATION: Ultrasound of the left breast. [...] the next mammogram, in accordance with the [place] [employer] and the Society of Breast Imaging recommendations. Misty Gillespie MD [facility] [place]AM[place] ORDERABLES Final Result * HPV HIGH RISK (10/04/2020 4:41 PM EDT) HPV HR Not Detected Not Detected 10/05/2020 6:07 PM EDT [employer] Thin Prep SPECIMEN FROM UTERINE CERVIX / Unknown 10/04/2020 4:41 PM EDT 10/04/2020 4:41 PM EDT Narrative [employer] - 10/05/2020 6:07 PM EDT This test [...] us Misty Gillespie MD [facility]OLOGY - [facility] Final Result [employer] [address] [facility] [place] [address] [place] [id number] * SUPERVISOR SCREEN PRINTING CYTOLOGY REQUEST (PAP ONLY) (10/04/2020 4:41 PM EDT) CASE REPORT Gynecologic Cytology Report ? Case: [id number] ? Authorizing Provider: ??Misty Gillespie MD ? Collected: ? 10/04/2020 1641 ? Ordering Location: ? [facility] ? Received: ?10/04/2020 1641 ? First Screen: ?Diego Raza, ? CT ? Rescreen: ?Lauren De Anda CT ? Specimen: ?LIQUID-BASED PAP - CERVICAL/ENDOCERV ICAL, Cervix, Endocervical ? 10/06/2020 1:52 PM EDT [facility] CORRECTION HISTORY 10/06/2020 1:52 PM EDT [facility] PAP FINAL DIAGNOSIS Negative for intraepithelial lesion or malignancy 10/06/2020 1:52 PM EDT [facility] OSCOPIC DESCRIPTION Microscopic examination is performed and the findings corroborate the diagnosis 10/06/2020 1:52 PM EDT [facility] PAP SMEAR ADEQUACY Satisfactory for evaluation 10/06/2020 1:52 PM EDT [facility] ENDOCERVICAL T-ZONE Transformation zone present 10/06/2020 1:52 PM EDT [facility] EMBEDDED IMAGES 1:52 PM EDT [facility] PAP DISCLAIMER The Pap Smear is a screening test that aids in the detection of cervical cancer and cancer precursors. Both false positive and false negative results can occur. The test should be used at regular intervals, and positive results should be confirmed before definitive therapy. Processed using the ThinPrep Photo Optics Technician Automated cytology screening device ([employer] Lucky). 10/06/2020 1:52 PM EDT [facility] Thin Prep ENDOCERVICAL STRUCTURE / Unknown 10/04/2020 4:41 PM EDT 10/04/2020 4:41 PM EDT us Misty Gillespie MD CYTOLOGY ORDERABLES Final R esult [facility] [address] [place] [address] documented in this encounter Visit [...] Last Ordered Date First Ordered Date medroxyPROGESTERone (DEPO-MS OVERA) injection 150 mg 1 10/04/2020 documented in this encounter Additional Health Concerns Assessment Noted Time PHQ-9 Depression Total Score: 2 10/07/19 18 8:00 AM EDT PHQ-2 Depression Total Score: 2 10/07/19 18 8:00 AM EDT documented as of this encounter Care Teams Code Enforcement Officer Relationship Specialty Start Date End Date Thea Rubio MD PCP - General Family Medicine 09/13/14 07/16/22 Abdifatah Uriarte MD [address] [facility] [place] [address] Consulting Physician Obstetrics & Gynecology-Gynecologic Oncology 12/16/19 documented as of this encounter
--- OUTSIDE RECORDS SUMMARY | 2024-03-15 09:55 | XMS_ITS | Encounter Summary ---
Author Organization [facility] [address] Care Team Providers Care Skiver Box Toe Name Role Phone Thea Rubio MD Primary Care Provider [phone]- [phone] Abdifatah Uirarte MD Unavailable [phone] Reason for Visit * Reason Comments Medication Refill Encounter Details Date Type Department Care Team (Late st Contact Info) Description 07/23/2020 Refill [facility] [address] [place] [address] Migue Anne MD [address] [place] [address] Medication Refill Social History Tobacco Use Types [...] 04/24/2024 10:45 AM EST Clinical Support [facility] [address] [place] [address] documented as of this encounter [...] documented as of this encounter Care Teams Skiver Box Toe Relationship Specialty Start Date End Date Thea Rubio MD PCP - General Family Medicine 09/13/14 07/16/22 Abdifatah Uriarte MD [address] [place] [address] [place] [address] Consulting Physician Obstetrics & Gynecology-Gynecologic Oncology 12/16/19 documented as of this encounter
--- OUTSIDE RECORDS SUMMARY | 2024-03-15 09:55 | XMS_ITS | Encounter Summary ---
Author Organization [place] [address] Care Team Providers Care Plastic Mould Maker Name Role Phone Thea Rubio MD Primary Care Provider +1- [phone] Abdifatah Uriarte MD Unavailable [phone] Reason for Visit * Reason Comments Injections Encounter Details Date Type Department Care Team (Latest Contact Info) Description 03/05/2021 10:00 AM EST Clinical Support [facility] [address] [place] [address] Chelsea Agee, HERIBERTO Excessive or frequent [...] 04/24/2024 10:45 AM EST Clinical Support [facility] [address] [place] [address] documented as of this encounter [...] documented as of this encounter Care Teams Plastic Mould Maker Relationship Specialty Start Date End Date Thea Rubio MD PCP - General Family Medicine 09/13/14 07/16/22 Abdifatah Uriarte MD [address] [place] [address] [place] [address] Consulting Physician Obstetrics & Gynecology-Gynecologic Oncology 12/16/19 documented as of this encounter
--- OUTSIDE RECORDS SUMMARY | 2024-03-15 09:56 | XMS_ITS | Encounter Summary ---
Author Organization [facility] [place] [address] Care Team Providers Care Short Haul Driver Name Role Phone Thea Rubio MD Primary Care Provider +1- [phone] Encounter Details Date Type Department Care Team [...] 04/24/2024 10:45 AM EST Clinical Support [facility] [address] [place] [address] documented as of this [...] documented as of this encounter Care Teams Short Haul Driver Relationship Specialty Start Date End Date Thea Rubio MD PCP - General Family Medicine 09/13/14 07/16/22 documented as of this encounter
--- OUTSIDE RECORDS SUMMARY | 2024-03-15 09:56 | XMS_ITS | Encounter Summary ---
Author Organization [place] [address] Care Team Providers Care Manager Pediatric Name Role Phone Thea Rubio MD Primary Care Provider [phone]- [phone] Abdifatah Uriarte MD Unavailable [phone] Reason for Visit * Reason Onset Date Comments Contraception 12/22/2019 mirena info Encounter Details Date Type Department Care Team (Late Contact Info) Description 12/22/2019 Telephone [facility] [address] [place] [address] Misty Gillespie MD [address] [place] [address] Contraception (mirena info) Social History Tobacco Use [...] 02/03/2020 3:13 PM EDT IUD arrived in [place]. Called pt to schedule, LMTCB. * Telephone Encounter - Heather Ness - 01/20/2020 3:05 PM EDT Candida with [facility] called to schedule IUD delivery to office. [employer]X priority. 01/26/20 * Telephone Encounter - Eli Thorpe - 01/04/2020 2:14 PM EDT Rx was transferred from [facility] to [facility]. Spoke anya/ Antonio, the pharmacist, to confirm this order. They will ship it out [facility]. * Telephone Encounter - Eli Thorpe - 12/22/2019 10:14 AM EDT Patient Supply Mirena order submitted to [facility]. Pharmacy will contact patient withbenefits [...] Description 04/24/2024 10:45 AM EST Clinical Support [facility] [address] [place] [address] documented as of this [...] as of this encounter Care Teams Manager Pediatric Relationship Specialty Start Date End Date Thea Rubio MD PCP - General Family Medicine 09/13/14 07/16/22 Abdifatah Uriarte MD [address] [place] [address] [place] [address] Consulting Physician Obstetrics & Gynecology-Gynecologic Oncology 12/16/19 documented as of this encounter
--- OUTSIDE RECORDS SUMMARY | 2024-03-15 09:56 | XMS_ITS | Encounter Summary ---
Author Organization [facility] [place] [address] Care Team Providers Care Day Worker Name Role Phone Thea Rubio MD Primary Care Provider +1- [phone] Encounter Details Date Type Department Care Team [...] 04/24/2024 10:45 AM EST Clinical Support [facility] [address] [place] [address] documented as of this [...] documented as of this encounter Care Teams Day Worker Relationship Specialty Start Date End Date Thea Rubio MD PCP - General Family Medicine 09/13/14 07/16/22 documented as of this encounter
--- OUTSIDE RECORDS SUMMARY | 2024-03-15 09:56 | XMS_ITS | Encounter Summary ---
Author Organization [facility] [place] [address] Care Team Providers Care Bridge Instructor Name Role Phone Thea Rubio MD Primary Care Provider [phone]- [phone] Reason for Visit * Reason Comments Foot Pain 5th pmj pain bilater ally * Consultation (Routine) - Closed Specialty Diagnoses / Procedures Referred By Amalia tuttle Referred To Contact Podiatry Diagnoses Chronic pain of both feet Thea Rubio MD Phone: tel: fax: Abdifatah Contreras, FIONA [address] [place] [address] Phone: tel: fax: Referral ID Status Reason Start Date Expiration Date Visits Re quested Visits Authorized [id number] Closed 10/13/2019 10/12/2020 99 99 Encounter Details Date Type Department Care Team (Late st Contact Info) Description 10/28/2019 2:00 PM EDT Office Visit [facility] [address] [address] Abdifatah Contreras, DPM [address] [place] [address] Tailor's bunionette, right (Primary Dx); Tailor's bunionette, [...] per week which causes pain. Works in [employer]. No injury or trauma. Patients past medical, [...] leash. ? Touching money. ? Using household restaurant hospitality manager or toxic chemicals. ? Handling soiled clothes, [...] soap and water. To use a hand credit reporting clerk, follow the directions on the product, and: [...] 11/26/2005 Document Revised: 01/14/2018 Document Reviewed: 01/14/2018 [employer] Patient Education ?? 2019 Flynn. documented in this encounter Plan of Treatment Upcoming Encounters Date Type Department Care Team (Late st Contact Info) Description 04/24/2024 10:45 AM EST Clinical Support [facility] 100 [place] [address] documented as of this encounter Goals Goal [...] 2:12 PM CLINICAL HISTORY: ??M21.621-Bunionette of right sknt-JBV-99-CM M21.622-Bunionette of left gikr-CIC-26-CM M79.671-Pain in right iyxn-PLJ-00-CM M79.672-Pain in left udij-STJ-01-CM COMPARISON: ??None. PROCEDURE COMMENTS: 3 views each [...] 2:12 PM CLINICAL HISTORY: M21.621-Bunionette of right ejbj-EFF-13-CM M21.622-Bunionette of left ials-JEA-70-CM M79.671-Pain in right clft-GSO-49-CM M79.672-Pain in left hqby-VEQ-23-CM COMPARISON: None. PROCEDURE COMMENTS: 3 views each [...] documented as of this encounter Care Teams Bridge Instructor Relationship Specialty Start Date End Date Thea Rubio MD PCP - General Family Medicine 09/13/14 07/16/22 documented as of this encounter
--- OUTSIDE RECORDS SUMMARY | 2024-03-15 09:56 | XMS_ITS | Encounter Summary ---
Author Organization [place] [address] Care Team Providers Care Contact Acid Plant Operator Name Role Phone Thea Rubio MD Primary Care Provider [phone]- [phone] Reason for Visit * Reason Onset Date Comments Procedure 11/16/2019 Encounter Details Date Type Department Care Team (Late st Contact Info) Description 11/16/2019 Telephone [facility] [address] [place] [address] Misty Gillespie MD [address] [place] [address] Procedure Social History Tobacco Use Types Packs/Day [...] I was going to refer her to [facility] for hysterectomy due to her extensive [...] [facility] 100 [place] [address] documented as of this encounter Goals Goal [...] documented as of this encounter Care Teams Contact Acid Plant Operator Relationship Specialty Start Date End Date Thea Rubio MD PCP - General Family Medicine 09/13/14 07/16/22 documented as of this encounter
--- OUTSIDE RECORDS SUMMARY | 2024-03-15 09:56 | XMS_ITS | Encounter Summary ---
Author Organization [facility] [place] [address] Care Team Providers Care Sap Abap Developer Name Role Phone Thea Rubio MD Primary Care Provider [phone]- [phone] Abdifatah Uriarte MD Unavailable [phone] Encounter Details Date Type Department Care Team [...] 04/24/2024 10:45 AM EST Clinical Support [facility] [address] [place] [address] documented as of this encounter [...] documented as of this encounter Care Teams Sap Abap Developer Relationship Specialty Start Date End Date Thea Rubio MD PCP - General Family Medicine 09/13/14 07/16/22 Abdifatah Uriarte MD [address] [place] [address] [place] [address] Consulting Physician Obstetrics & Gynecology-Gynecologic Oncology 12/16/19 documented as of this encounter
--- OUTSIDE RECORDS SUMMARY | 2024-03-15 09:56 | XMS_ITS | Encounter Summary ---
Author Organization [place] [address] Care Team Providers Care Biofuels Product Manager Name Role Phone Thea Rubio MD Primary Care Provider +1- [phone] Abdifatah Uriarte MD Unavailable [phone] Reason for Visit * Reason Comments Injections Encounter Details Date Type Department Care Team (Latest Contact Info) Description 01/24/2020 4:00 PM EDT Clinical Support [facility] [address] [place] [phone] La Flynn MA Excessive and frequent [...] Clinical Support [facility] [address] [place] [address] documented as of this encounter [...] Test, Ur Negative 01/24/2020 3:29 PM EDT [facility] Urine URINE SPECIMEN COLLECTION / Unknown 01/24/2020 3:22 PM EDT 01/24/2020 3:28 PM EDT [facility] Bur Injection Nurse POINT OF C ARE TEST ORDERABLES Final Result [facility] [address] [place] [address] documented in this encounter Visit Diagnoses Diagnosis [...] as of this encounter Care Teams Biofuels Product Manager Relationship Specialty Start Date End Date Thea Rubio MD PCP - General Family Medicine 09/13/14 07/16/22 Abdifatah Uriarte MD [address] [place] [address] [place] [address] Consulting Physician Obstetrics & Gynecology-Gynecologic Oncology 12/16/19 documented as of this encounter
--- OUTSIDE RECORDS SUMMARY | 2024-03-15 09:56 | XMS_ITS | Encounter Summary ---
Author Organization [place] [address] Care Team Providers Care Automatic Packer Operator Name Role Phone Thea Rubio MD Primary Care Provider [phone]- [phone] Abdifatah Uriarte MD Unavailable [phone] Reason for Visit * Reason Onset Date Comments Other 12/30/2019 Ordering of Depo Encounter Details Date Type Department Care Team (Late Contact Info) Description 12/30/2019 Telephone [facility] [address] [place] [phone] Yolis Angeles, RN Other (Ordering of [...] happy to take over her depo provera. [facility] oncology thought Mirena would be good for her as well (which I agree) but either is appropriate. * Telephone Encounter - Yolis Angeles RN - 12/30/2019 4:00 PM EDT Patient called today asking if Dr. Gillespie can assume the responsibility of ordering her Depo injection. Previously this had been done by her PCP (Dr. Thea Rubio), but due to her history of abnormal pap/MANDREL PULLER hx, they have asked that the MANDREL PULLER now manage this medication. Patient has notes [...] 04/24/2024 10:45 AM EST Clinical Support [facility] [address] [place] [address] documented as of this encounter [...] documented as of this encounter Care Teams Automatic Packer Operator Relationship Specialty Start Date End Date Thea Rubio MD PCP - General Family Medicine 09/13/14 07/16/22 Abdifatah Uriarte MD [address] [place] [address] [place] [address] Consulting Physician Obstetrics & Gynecology-Gynecologic Oncology 12/16/19 documented as of this encounter
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
--- OUTSIDE RECORDS SUMMARY | 2024-03-15 09:56 | XMS_ITS | Encounter Summary ---
Author Organization [place] [address] Care Team Providers Care Floor Installer Name Role Phone Thea Rubio MD Primary Care Provider [phone]- [phone] Abdifatah Uriarte MD Unavailable [phone] Reason for Visit * Reason Onset Date Comments Other 12/29/2019 Encounter Details Date Type Department Care Team (Late st Contact Info) Description 12/29/2019 Telephone [facility] [address] [place] [address] Thea Rubio MD [address] [place], [place] [id number] Other Social History Tobacco Use Types Packs/Day [...] an abnormal Pap and is seeing the receiver/laborer, Dr. Gillespie, I would feel much better if she would be getting her shots from Dr. Gillespie. Can she ask automotive starter repairer instead? * Telephone Encounter - Antonietta Richards - 12/29/2019 9:56 AM EDT The patient needs to get her Depo for control. Can we schedule this? documented in this encounter Plan of Treatment Upcoming Encounters Date Type Department Care Team (Late st Contact Info) Description 04/24/2024 10:45 AM EST Clinical Support [facility] [address] [place] [address] documented as of this encounter [...] as of this encounter Care Teams Floor Installer Relationship Specialty Start Date End Date Thea Rubio MD PCP - General Family Medicine 09/13/14 07/16/22 Abdifatah Uriarte MD [address] [place] [address] [place] [address] Consulting Physician Obstetrics & Gynecology-Gynecologic Oncology 12/16/19 documented as of this encounter
--- OUTSIDE RECORDS SUMMARY | 2024-03-15 09:56 | XMS_ITS | Encounter Summary ---
Author Organization [facility] [place] [address] Care Team Providers Care Toll Testboard Worker Name Role Phone Thea Rubio MD Primary Care Provider [phone]- [phone] Abdifatah Uriarte MD Unavailable [phone] Encounter Details Date Type Department Care Team [...] 10:45 AM EST Clinical Support [facility] [address] [place] [address] documented as of this encounter [...] documented as of this encounter Care Teams Toll Testboard Worker Relationship Specialty Start Date End Date Thea Rubio MD PCP - General Family Medicine 09/13/14 07/16/22 Abdifatah Uriarte MD [address] [place] [address] [place] [address] Consulting Physician Obstetrics & Gynecology-Gynecologic Oncology 12/16/19 documented as of this encounter
--- OUTSIDE RECORDS SUMMARY | 2024-03-15 09:56 | XMS_ITS | Encounter Summary ---
Author Organization [facility] [address] Care Team Providers Care Recovery Rn Name Role Phone Thea Rubio MD Primary Care Provider [phone]- [phone] Encounter Details Date Type Department Care Team [...] 04/24/2024 10:45 AM EST Clinical Support [facility] [address] [place] [address] documented as of this encounter [...] documented as of this encounter Care Teams Recovery Rn Relationship Specialty Start Date End Date Thea Rubio MD PCP - General Family Medicine 09/13/14 07/16/22 documented as of this encounter
--- OUTSIDE RECORDS SUMMARY | 2024-03-15 09:56 | XMS_ITS | Encounter Summary ---
Author Organization [facility] [place] [address] Care Team Providers Care Pay Clerk Name Role Phone Thea Rubio MD Primary Care Provider [phone]- [phone] Encounter Details Date Type Department Care Team [...] EST Clinical Support [facility] [address] [place] [address] documented as of this encounter [...] documented as of this encounter Care Teams Pay Clerk Relationship Specialty Start Date End Date Thea Rubio MD PCP - General Family Medicine 09/13/14 07/16/22 documented as of this encounter
--- OUTSIDE RECORDS SUMMARY | 2024-03-15 09:56 | XMS_ITS | Encounter Summary ---
Author Organization [facility] Address [facility] [place] [address] Care Team Providers Care Database Marketing Specialist Name Role Phone Thea Rubio MD Primary Care Provider [phone]- [phone] Encounter Details Date Type Department Care Team (Latest Contact Info) Description 10/07/2019 10:30 AM EDT - 10/07/2019 11:59 PM EDT Hospital Encounter [facility] [address] [place] [id number] Genetic testing (Primary Dx) Discharge Disposition: Home [...] 04/24/2024 10:45 AM EST Clinical Support [facility] [address] [place] [address] documented as of this encounter [...] MISCELLANEOUS LAB (10/07/2019 10:47 AM EDT) Pathologist [facility] COMMENT See Scanned Image 10/07/2019 11:42 AM EDT [facility] Blood UPPER LIMB STRUCTURE / Unknown Venipuncture / Unknown 10/07/2019 10:47 AM EDT 10/07/2019 10:47 AM EDT us Ruel Chinchilla MD HEMATOLOGY ORDERABLES Final Result [facility] 1 [place] [address] documented in this encounter Visit Diagnoses Diagnosis Genetic testing- Primary Other investigation and testing for procreative management documented in this encounter Additional Health Concerns Assessment Noted Time PHQ-9 Depression Total Score: 2 10/07/19 18 8:00 AM EDT PHQ-2 Depression Total Score: 2 10/07/19 18 8:00 AM EDT documented as of this encounter Care Teams Database Marketing Specialist Relationship Specialty Start Date End Date Thea Rubio MD PCP - General Family Medicine 09/13/14 07/16/22 documented as of this encounter
--- OUTSIDE RECORDS SUMMARY | 2024-03-15 09:56 | XMS_ITS | Encounter Summary ---
Author Organization [place] [address] Care Team Providers Care Business Continuity Specialist Name Role Phone Thea Rubio MD Primary Care Provider [phone]- [phone] Abdifatah Uriarte MD Unavailable [phone] Reason for Visit * Reason Comments Consult Abnormal pap, wants hysterectomy Encounter Details Date Type Department Care Team (Latest Contact Info) Description 12/16/2019 2:12 PM EDT - 12/16/2019 11:59 PM EDT Hospital Encounter [facility] [place] [address] Abdifatah Uriarte MD [address] [place] [address] [place] [address] Dysplasia of cervix, low grade [...] from the original note were not included. [facility] [place] [address] GYNECOLOGIC ONCOLOGY CONSULT NOTE Patient: Gardenia Childress [facility]: [id number] Date of : 1980 Age: 40 y.o. [...] ??? COLONOSCOPY 01/12/2018 Dr. Aaron Rocha, with [facility]. Normal colon ??? UPPER GASTROINTESTINAL ENDOSCOPY 12/04/2017 [...] EST Clinical Support [facility] [address] [place] [address] documented as of this encounter [...] documented as of this encounter Care Teams Business Continuity Specialist Relationship Specialty Start Date End Date Thea Rubio MD PCP - General Family Medicine 09/13/14 07/16/22 Abdifatah Uriarte MD [address] [facility] [place] [address] Consulting Physician Obstetrics & Gynecology-Gynecologic Oncology 12/16/19 documented as of this encounter
--- OUTSIDE RECORDS SUMMARY | 2024-03-15 09:56 | XMS_ITS | Encounter Summary ---
Author Organization [place] [address] Care Team Providers Care Bible Worker Name Role Phone Thea Rubio MD Primary Care Provider +1- [phone] Abdifatah Uriarte MD Unavailable [phone] Encounter Details Date Type Department Care Team (Latest Contact Info) Description 12/16/2019 1:53 PM EDT - 12/16/2019 2:11 PM EDT Hospital Encounter [facility] D-WING X[facility] [place] [address] Tailor's bunionette, right; Tailor's bunionette, [...] 04/24/2024 10:45 AM EST Clinical Support [facility] [address] [place] [address] documented as of this encounter [...] 2:12 PM CLINICAL HISTORY: ??M21.621-Bunionette of right ohuc-ROW-84-CM M21.622-Bunionette of left ttpb-GLB-43-CM M79.671-Pain in right toie-BZL-07-CM M79.672-Pain in left bblm-LNQ-68-CM COMPARISON: ??None. PROCEDURE COMMENTS: 3 views each [...] 2:12 PM CLINICAL HISTORY: M21.621-Bunionette of right qgdx-TQS-34-CM M21.622-Bunionette of left lfhg-NYW-52-CM M79.671-Pain in right skds-TED-36-CM M79.672-Pain in left tybg-SWI-91-CM COMPARISON: None. PROCEDURE COMMENTS: 3 views each [...] documented as of this encounter Care Teams Bible Worker Relationship Specialty Start Date End Date Thea Rubio MD PCP - General Family Medicine 09/13/14 07/16/22 Abdifatah Uriarte MD 1 [facility] [place] [address] Consulting Physician Obstetrics & Gynecology-Gynecologic Oncology 12/16/19 documented as of this encounter
--- OUTSIDE RECORDS SUMMARY | 2024-03-15 09:56 | XMS_ITS | Encounter Summary ---
Author Organization [place] [address] Care Team Providers Care Cane Furniture Maker Name Role Phone Thea Rubio MD Primary Care Provider [phone]- [phone] Abdifatah Uriarte MD Unavailable [phone] Reason for Visit * Reason Comments Follow-up 8 mo ck * Consultation (Routine) - Closed Specialty Diagnoses / Procedures Referred By Amalia tuttle Referred To Contact Internal Medicine-Cardiovascula r Disease / Cardiology Diagnoses Personal history of (corrected) congenital malformations of heart and circulatory system Nereida Mendoza 8 mon ck Procedures OFFICE VISIT Thea Rubio MD Phone: tel: fax: Migue Anne MD [address] [place] [address] Phone: tel: fax: Referral ID Status Reason Start Date Expiration Date Visits Re quested Visits Authorized [id number] Closed 12/16/2019 12/15/2020 99 99 Encounter Details Date Type Department Care Team (Late st Contact Info) Description 12/16/2019 1:00 PM EDT Office Visit [facility] [address] [place] [address] Migue Anne MD [address] [place] [address] ASD (atrial septal defect) (Primary Dx); Atypical [...] routine follow up ASD 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 COLONOSCOPY 01/12/2018 Dr. Aaron Rocha, with [facility]. Normal colon ??? UPPER GASTROINTESTINAL ENDOSCOPY 12/04/2017 [...] - 12/16/2019 1:00 PM EDT Please call [phone] in late Dec for a 8 mo check due in August 2020. documented in this encounter Plan of Treatment Upcoming Encounters Date Type Department Care Team (Late st Contact Info) Description 04/24/2024 10:45 AM EST Clinical Support [facility] [address] [place] [address] documented as of this encounter Goals Goal [...] <200 mg/dL 12/16/2019 3:00 PM EDT [facility] Comment: < 200 ?Desirable 200 - 239 ? Borderline High >= 240 ?High Triglyceride 73 <150 mg/dL 12/16/2019 3:00 PM EDT [facility] Comment: < 150 ? Normal 150 - 199 ?Borderline High 200 - 499 ?High ??>= 500 ? Very High HDL 55 >=40 mg/dL 12/16/2019 3:00 PM EDT [facility] Comment: ??> 60 ?Optimal 40 - 60 ?Acceptable ?? < 40 ?Low LDL Calculated 67 <100 mg/dL 12/16/2019 3:00 PM EDT [facility] Comment: < 100 ?Optimal 100 - 129 ? Near or above optimal 130 - 159 ? Borderline High 160 - 189 ? High >= 190 ?Very High Non-HDL-C Calculated 82 <=129 mg/dL 12/16/2019 3:00 PM EDT [facility] Comment: <130 ?Desirable 130-159 Above Desirable 160-189 Borderline High 190-219 High >= 220 ??Very High Fasting Specimen? No None 020 3:00 PM EDT [facility] Blood VENOUS BLOOD / Unknown Venipuncture / Unknown 12/16/2019 2:02 PM EDT 12/16/2019 2:02 PM EDT us Tiny Mendoza SUSTAINABLE LANDSCAPE ARCHITECT CHEMISTRY ORDERABLES Final Result [facility] [address] [facility] , [address] [place] [id number] * BASIC METABOLIC PANEL (12/16/2019 2:02 PM EDT) Sodium 139 136 - 145 mmol/L 12/16/2019 3:00 PM EDT [facility] Potassium 3.9 3.5 - 5.0 mmol/L 12/16/2019 3:00 PM EDT [facility] Chloride 105 98 - 107 mmol/L 12/16/2019 3:00 PM EDT [facility] Total CO2 22 22 - 29 mmol/L 12/16/2019 3:00 PM EDT [facility] Anion Gap 12 7 - 16 mmol/L 12/16/2019 3:00 PM EDT [facility] Calcium 8.8 8.6 - 10.4 mg/dL 12/16/2019 3:00 PM EDT [facility] Glucose Lvl 83 74 - 100 mg/dL 12/16/2019 3:00 PM EDT [facility] BUN 7 6 - 20 mg/dL 12/16/2019 3:00 PM EDT [facility] Creatinine 0.66 0.51 - 1.30 mg/dL 12/16/2019 3:00 PM EDT [facility] GFR Afr Am 131 >=60 mL/min/1.7 3 m2 12/16/2019 3:00 PM EDT [facility] GFR Non Afr Am 113 >=60 mL/min/1.7 3 m2 12/16/2019 3:00 PM EDT [facility] Comment: This estimated GFR was [...] Final Result [facility] [address] [facility] , [place] [address] [facility] 1 [place] [address] * CBC (12/16/2019 2:02 PM EDT) [facility] WBC 5.3 3.7 - 10.3 x10(3)/mcL 12/16/2019 [...] Result [facility] [address] [facility] , [place] [address] * TSH REFLEX (12/16/2019 2:02 PM EDT) TSH Reflex 1.520 0.270 - 4.200 mcIU/mL 12/16/2019 3:00 PM EDT [facility] Blood VENOUS BLOOD / Unknown Venipuncture / Unknown 12/16/2019 2:02 PM EDT 12/16/2019 2:02 PM EDT Narrative [facility] - 12/16/2019 3:00 PM EDT Ingestion of abimael doses of biotin (>5 mg/day) taken within 8 hours of drawing blood sample can interfere with this immunoassay test. Tiny Mendoza APRN CHEMISTRY ORDERABLES Final Result [facility] [address] [facility] , [place] [address] documented in this encounter Visit Diagnoses Diagnosis [...] documented as of this encounter Care Teams Cane Furniture Maker Relationship Specialty Start Date End Date Thea Rubio MD PCP - General Family Medicine 09/13/14 07/16/22 Abdifatah Uriarte MD 1 [facility] [address] Consulting Physician Obstetrics & Gynecology-Gynecologic Oncology 12/16/19 documented as of this encounter
--- OUTSIDE RECORDS SUMMARY | 2024-03-15 09:56 | XMS_ITS | Encounter Summary ---
Author [place] [address] Care Team Providers Care Correspondence Clerk Name Role Phone Thea Rubio MD Primary Care Provider +1- [phone] Reason for Referral * Mammography (Routine) - Closed Specialty Diagnoses / Procedures Referred By Amalia tuttle Referred To Contact Radiology Diagnoses Encounter for screening mammogram for malignant neoplasm of breast Family history of breast cancer Procedures MM MAMMO DIGITAL MADELEINE SCREEN BILAT MM MAMMO DIGITAL SCREENING W Misty Colón MD [address] [place] [address] Phone: tel: fax: Referral ID Status Reason Start Date Expiration Date Visits Re quested Visits Authorized [id number] Closed 10/01/2019 09/30/2021 1 1 Reason for Visit * Mammography (Routine) - Closed Specialty Diagnoses / Procedures Referred By Amalia tuttle Referred To Contact Radiology Diagnoses Encounter for screening mammogram for malignant neoplasm of breast Family history of breast cancer Procedures MM MAMMO DIGITAL MADELEINE SCREEN BILAT MM MAMMO DIGITAL SCREENING W Misty Colón MD [address] [place] [address] Phone: tel: fax: Referral ID Status Reason Start Date Expiration Date Visits Re quested Visits Authorized [id number] Closed 10/01/2019 09/30/2021 1 1 Encounter Details Date Type Department Care Team (Late st Contact Info) Description 10/07/2019 9:04 AM EDT - 10/07/2019 10:29 AM EDT Hospital Encounter [facility] [address] [place] [address] Misty Gillespie MD [address] [place] [address] Encounter for [...] Clinical [facility] [place] [address] documented as of this encounter Goals Goal [...] EDT Impressions 10/07/2019 11:29 AM EDT Negative ??([id number]) ~ RECOMMENDATION: Routine screening mammogram in 1 [...] the next mammogram, in accordance with the [employer] and the Society of Breast Imaging recommendations. Narrative 10/07/2019 11:29 AM EDT Procedure:MM MAMMO DIGITAL MADELEINE SCREEN BILAT ~ Reason for exam: screening, asymptomatic. Z12.31-Encounter for screening mammogram for malignant neoplasm of whrulb-ANO-48-CM Z80.3-Family history of malignant neoplasm of rpexho-OBD-85-CM ~ MM MAMMO DIGITAL MADELEINE SCREEN BILAT [...] for screening mammogram for malignant neoplasm of ihjsid-LQJ-08-CM Z80.3-Family history of malignant neoplasm of bpszxd-HXN-25-CM ~ MM MAMMO DIGITAL MADELEINE SCREEN BILAT Bilateral CC and MLO view(s) were taken. Technologist: Mere Ayers, The breast tissue is heterogeneously dense. This may lower thesensitivity of mammography. Prior study comparison: Baseline study without comparison. No mammographic evidence of malignancy. ~ IMPRESSION: Negative ([id number]-1) ~ RECOMMENDATION: Routine screening mammogram in 1 [...] the next mammogram, in accordance with the [employer] and the Society of [...] documented as of this encounter Care Teams Correspondence Clerk Relationship Specialty Start Date End Date Thea Rubio MD PCP - General Family Medicine 09/13/14 07/16/22 documented as of this encounter
--- OUTSIDE RECORDS SUMMARY | 2024-03-15 09:56 | XMS_ITS | Encounter Summary ---
Author Organization [facility] [place] [address] Care Team Providers Care Financial Rep Name Role Phone Thea Rubio MD Primary Care Provider +1- [phone] Encounter Details Date Type Department Care Team [...] 04/24/2024 10:45 AM EST Clinical Support [facility] [address] [place] [address] documented as of this encounter [...] as of this encounter Care Teams Financial Rep Relationship Specialty Start Date End Date Thea Rubio MD PCP - General Family Medicine 09/13/14 07/16/22 documented as of this encounter
--- OUTSIDE RECORDS SUMMARY | 2024-03-15 09:56 | XMS_ITS | Encounter Summary ---
Author Organization [place] [address] Care Team Providers Care Project Control Officer Name Role Phone Thea Rubio MD Primary Care Provider +1- [phone] Abdifatah Uriarte MD Unavailable [phone] Encounter Details Date Type Department Care Team (Latest Contact Info) Description 12/16/2019 1:50 PM EDT - 12/16/2019 1:52 PM EDT Hospital Encounter [facility] [address] [place] [id number] ASD (atrial septal defect); Atypical chest pain [...] Support [facility] [address] [place] [address] documented as of this encounter Goals Goal [...] <200 mg/dL 12/16/2019 3:00 PM EDT [facility] Comment: < 200 ?Desirable 200 - 239 ? Borderline High >= 240 ?High Triglyceride 73 <150 mg/dL 12/16/2019 3:00 PM EDT [facility] Comment: < 150 ? Normal 150 - 199 ?Borderline High 200 - 499 ?High ??>= 500 ? Very High HDL 55 >=40 mg/dL 12/16/2019 3:00 PM EDT [facility] Comment: ??> 60 ?Optimal 40 - 60 ?Acceptable ?? < 40 ?Low LDL Calculated 67 <100 mg/dL 12/16/2019 3:00 PM EDT [facility] Comment: < 100 ?Optimal 100 - 129 ? Near or above optimal 130 - 159 ? Borderline High 160 - 189 ? High >= 190 ?Very High Non-HDL-C Calculated 82 <=129 mg/dL 12/16/2019 3:00 PM EDT [facility] Comment: <130 ?Desirable 130-159 Above Desirable 160-189 Borderline High 190-219 High >= 220 ??Very High Fasting Specimen? No None 020 3:00 PM EDT [facility] Blood VENOUS BLOOD / Unknown Venipuncture / Unknown 12/16/2019 2:02 PM EDT 12/16/2019 2:02 PM EDT us Tiny Mendoza RESAW TAILER CHEMISTRY ORDERABLES Final Result [facility] [address], [place] [address] * BASIC METABOLIC PANEL (12/16/2019 2:02 PM EDT) Pathologist [facility] Sodium 139 136 - 145 mmol/L 12/16/2019 3:00 PM EDT [facility] Potassium 3.9 3.5 - 5.0 mmol/L 12/16/2019 3:00 PM EDT [facility] Chloride 105 98 - 107 mmol/L 12/16/2019 3:00 PM EDT [facility] Total CO2 22 22 - 29 mmol/L 12/16/2019 3:00 PM EDT [facility] Anion Gap 12 7 - 16 mmol/L 12/16/2019 3:00 PM EDT [facility] Calcium 8.8 8.6 - 10.4 mg/dL 12/16/2019 3:00 PM EDT [facility] Glucose Lvl 83 74 - 100 mg/dL 12/16/2019 3:00 PM EDT [facility] BUN 7 6 - 20 mg/dL 12/16/2019 3:00 PM EDT [facility] Creatinine 0.66 0.51 - 1.30 mg/dL 12/16/2019 3:00 PM EDT [facility] GFR Afr Am 131 >=60 mL/min/1.7 3 m2 12/16/2019 3:00 PM EDT [facility] GFR Non Afr Am 113 >=60 mL/min/1.7 3 m2 12/16/2019 3:00 PM EDT [facility] Comment: This estimated GFR was calculated [...] 12/16/2019 2:02 PM EDT us Tiny Mendoza RESAW TAILER CHEMISTRY ORDERABLES Final Result [facility] [address] [facility] , [place] [address] [facility] 1 [place] [address] * CBC (12/16/2019 2:02 PM EDT) Pathologist [facility] WBC 5.3 3.7 - 10.3 x10(3)/mcL 12/16/2019 [...] us Tiny Mendoza APRN HEMATOLOGY ORDERABLES Antonia zahc Result [facility] [address] [facility] , [place] [address] * TSH REFLEX (12/16/2019 2:02 PM EDT) TSH Reflex 1.520 0.270 - 4.200 mcIU/mL 12/16/2019 3:00 PM EDT [facility] Blood VENOUS BLOOD / Unknown Venipuncture / Unknown 12/16/2019 2:02 PM EDT 12/16/2019 2:02 PM EDT Narrative [facility] - 12/16/2019 3:00 PM EDT Ingestion of abimael doses of biotin (>5 mg/day) taken within 8 hours of drawing blood sample can interfere with this immunoassay test. Tiny Mendoza RESAW TAILER CHEMISTRY ORDERABLES Final Result [facility] [address] [facility] , [place] [address] documented in this encounter Visit Diagnoses Diagnosis ASD (atrial septal defect) Ostium secundum type atrial septal defect Atypical chest pain Other chest pain documented in this encounter Additional Health Concerns Assessment Noted Time PHQ-9 Depression Total Score: 2 10/07/19 18 8:00 AM EDT PHQ-2 Depression Total Score: 2 10/07/19 18 8:00 AM EDT documented as of this encounter Care Teams Project Control Officer Relationship Specialty Start Date End Date Thea Rubio MD PCP - General Family Medicine 09/13/14 07/16/22 Abdifatah Uriarte MD [address] [facility] [place] [address] Consulting Physician Obstetrics & Gynecology-Gynecologic Oncology 12/16/19 documented as of this encounter
--- OUTSIDE RECORDS SUMMARY | 2024-03-15 09:56 | XMS_ITS | Encounter Summary ---
Author Organization [place] [address] Care Team Providers Care [employer] Special Education Teacher Name Role Phone Thea Rubio MD Primary Care Provider [phone]- [phone] Reason for Visit * Reason Comments Procedure colp/lgsil * Consultation (Routine) - Closed Specialty Diagnoses / Procedures Referred By Contac t Referred To Contact Obstetrics & Gynecology / Obstetrics and Gynecology Diagnoses Abnormal Pap smear of cervix Finger/[place] Medicaid *mask Procedures RETURN CONSTRUCTION MATERIALS TESTER VISIT Misty Gillespie MD [address] [place] [address] Phone: tel: fax: Misty Gillespie MD [address] [place] [address] Phone: tel: fax: Referral ID Status Reason Start Date Expiration Date Visits Re quested Visits Authorized [id number] Closed 12/01/2019 11/30/2020 1 1 Encounter Details Date Type Department Care Team (Late st Contact Info) Description 10/21/2019 8:20 AM EDT Office Visit [facility] [address] [place] [address] Misty Gillespie MD [address] [place] [address] LGSIL of cervix of undetermined significance (Primary [...] 04/24/2024 10:45 AM EST Clinical Support [facility] [address] [place] [address] Scheduled Orders Name Type Priority Associated Diagnoses Orde r Schedule MS COLPOSC,CERVIX W/ADJ VAG,W/BX & CURRETAG MS Charge Routine LGSIL of cervix of undetermined [...] AM EDT) CASE REPORT Surgical Pathology ?Case: [id number] ? Authorizing Provider: ??Misty Gillespie MD ? Collected: ? 10/21/2019 0959 ? Ordering Location: ? [facility] ?Received: ?10/21/2019 0959 ? Pathologist: ? Obdulia Hernandez MD ? Specimens: ?? A) - Cervix, Endocervical ? B) - Cervix ? 10/26/2019 9:34 AM EDT [facility] FINAL DIAGNOSIS A) Endocervix, curettage: - Mucus and inflammatory cells; insufficient for diagnosis. 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 10/26/2019 9:34 AM EDT [facility] S DESCRIPTION Part A) Received in [...] in B1. /EF 10/26/2019 9:34 AM EDT [facility] MICROSCOPIC DESCRIPTION Microscopic examination is performed and the findings corroborate the diagnosis. 10/26/2019 9:34 AM EDT [facility] EMBEDDED IMAGES 10/26/2019 9:34 AM EDT [facility] Tissue SPECIMEN FROM UTERINE CERVIX / Unknown 10/21/2019 9:59 AM EDT 10/21/2019 9:59 AM EDT Tissue specimen (specimen) SPECIMEN FROM UTERINE CERVIX / Unknown 10/21/2019 9:59 AM EDT 10/21/2019 9:59 AM EDT us Misty Gillespie MD PATHOLOGY ORDERABLES Final Result [facility] 1 [place] [address] documented in this encounter Visit Diagnoses Diagnosis [...] documented as of this encounter Care Teams [employer] Special Education Teacher Relationship Specialty Start Date End Date Thea Rubio MD PCP - General Family Medicine 09/13/14 07/16/22 documented as of this encounter
--- OUTSIDE RECORDS SUMMARY | 2024-03-15 09:56 | XMS_ITS | Encounter Summary ---
Author Organization 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 Score of 0 with no concerns indicated. Linda SPARKS, PROFESSIONAL HEALTHCARE REPRESENTATIVE Social Work - [facility] [place] documented in this encounter Plan of Treatment Upcoming Encounters Date Type Department Care Team (Late st Contact Info) Description 04/24/2024 10:45 AM EST Clinical Support [facility] [address] [place] [address] documented as of this encounter [...] documented as of this encounter Care Teams Public Health Professor Relationship Specialty Start Date End Date Thea uRbio MD PCP - General Family Medicine 09/13/14 07/16/22 Abdifatah Uriarte MD [address] [place] [address] [place] [address] Consulting Physician Obstetrics & Gynecology-Gynecologic Oncology 12/16/19 documented as of this encounter
--- OUTSIDE RECORDS SUMMARY | 2024-03-15 09:56 | XMS_ITS | Encounter Summary ---
Author Organization [facility] [place] [address] Care Team Providers Care Coil Winder Hand Name Role Phone Thea Rubio MD Primary Care Provider +1- [phone] Encounter Details Date Type Department Care Team [...] EST Clinical Support [facility] [address] [place] [address] documented as of this encounter [...] documented as of this encounter Care Teams Coil Winder Hand Relationship Specialty Start Date End Date Thea Rubio MD PCP - General Family Medicine 09/13/14 07/16/22 documented as of this encounter
--- OUTSIDE RECORDS SUMMARY | 2024-03-15 09:56 | XMS_ITS | Encounter Summary ---
Author Organization [facility] [address] Care Team Providers Care Biomedical Equipment Specialist Name Role Phone Thea Rubio MD Primary Care Provider [phone]- [phone] Encounter Details Date Type Department Care Team (Late st Contact Info) Description 10/07/2019 1:30 PM EDT Office Visit [facility] 1 [place] [address] Misty Gillespie MD [address] [place], [place] [id number] Marge Alfredo [address] [place] [address] [place] [address] Family history of breast cancer [...] GENETIC COUNSELING CONSULTATION Name: Gardenia Childress CSN: [id number] : 1980 Consultation Date: 10/07/2019 Referring M.D. [...] Ordered: A sample was collected for the [email or web address] Common Hereditary cancers panel (47 genes).Ms. Childress will be contacted via telephone once the results are in. We appreciate having been asked to participate in the care of Ms. Childress. Please feel free to call [facility] [phone] with any questions or concerns. Marcus Vu Genetic Navigator Marge Alfredo MS, [facility] [place], Certified Genetic Counselor documented in this encounter Plan of Treatment Upcoming Encounters Date Type Department Care Team (Late st Contact Info) Description 04/24/2024 10:45 AM EST Clinical Support [facility] [address] [place] [address] documented as of this encounter [...] documented as of this encounter Care Teams Biomedical Equipment Specialist Relationship Specialty Start Date End Date Thea Rubio MD PCP - General Family Medicine 09/13/14 07/16/22 documented as of this encounter
--- OUTSIDE RECORDS SUMMARY | 2024-03-15 09:56 | XMS_ITS | Encounter Summary ---
Author Organization [place] [address] Care Team Providers Care Muffle Worker Name Role Phone Thea Rubio MD Primary Care Provider +1- [phone] Reason for Visit * Reason Onset Date Comments Results 10/21/2019 Hereditary cance r genetic testing Encounter Details Date Type Department Care Team (Late st Contact Info) Description 10/21/2019 Telephone [facility] 1 [place] [address] Marge Alfredo [address] [place] [address] Results (Hereditary cancer genetic testing) Social [...] available for review under the Lab [facility] [employer]. A detailed clinic note to follow. * Telephone Encounter - Marge Alfredo - 10/21/2019 1:05 PM EDT I left a voicemail requesting Ms. Childress return my call to review the results of her hereditary cancer genetic testing. documented in this encounter Plan of Treatment Upcoming Encounters Date Type Department Care Team (Late st Contact Info) Description 04/24/2024 10:45 AM EST Clinical Support [facility] [address] [place] [address] documented as of this encounter Goals Goal [...] documented as of this encounter Care Teams Muffle Worker Relationship Specialty Start Date End Date Thea Rubio MD PCP - General Family Medicine 09/13/14 07/16/22 documented as of this encounter
--- OUTSIDE RECORDS SUMMARY | 2024-03-15 09:56 | XMS_ITS | Encounter Summary ---
Author Organization [place] [address] Care Team Providers Care Boarding Room Fixer Name Role Phone Thea Rubio MD Primary Care Provider [phone]- [phone] Reason for Visit * Reason Onset Date Comments Appointment Needed 12/03/2019 Encounter Details Date Type Department Care Team (Late st Contact Info) Description 12/03/2019 Telephone [facility] [place] [address] [place] [address] Migue Anne MD [address] [place] [address] Appointment Needed Social History Tobacco Use Types [...] Support [facility] [address] [place] [address] documented as of this [...] documented as of this encounter Care Teams Boarding Room Fixer Relationship Specialty Start Date End Date Thea Rubio MD PCP - General Family Medicine 09/13/14 07/16/22 documented as of this encounter
--- OUTSIDE RECORDS SUMMARY | 2024-03-15 09:56 | XMS_ITS | Encounter Summary ---
Author Organization [place] [address] Care Team Providers Care Apron Man Name Role Phone Thea Rubio MD Primary Care Provider +1- [phone] Reason for Visit * Reason Comments Medication Refill Encounter Details Date Type Department Care Team (Late st Contact Info) Description 12/05/2019 Refill [facility] [place] [facility] [address] [place] [address] Migue Anne MD [address] [place] [address] Medication Refill Social History Tobacco Use Types [...] Support [facility] [address] [place] [address] documented as of this encounter [...] documented as of this encounter Care Teams Apron Man Relationship Specialty Start Date End Date Thea Rubio MD PCP - General Family Medicine 09/13/14 07/16/22 documented as of this encounter
--- OUTSIDE RECORDS SUMMARY | 2024-03-15 09:56 | XMS_ITS | Encounter Summary ---
Author Organization [place] [address] Care Team Providers Care Senior Security Analyst Name Role Phone Thea Rubio MD Primary Care Provider +1- [phone] Reason for Visit * Reason Onset Date Comments ED Follow-Up Call 10/28/2019 ED Follow-Up Call 10/29/2019 Encounter Details Date Type Department Care Team (Late st Contact Info) Description 10/28/2019 Patient Outreach [facility] [address] [place] [id number] Dejuan Youngblood YARROW GATHERER Follow-Up Call; ED Follow-Up Call Social History [...] provider Socioeconomic questionnaire completed. No needs identified. FileThis already active and access confirmed with patient. * Dejuan Youngblood RN - 10/28/2019 2:27 PM EDT Attempted to reach patient regarding ED follow up. Patient didn't answer and voicemail was left perACF. documented in this encounter Plan of Treatment Upcoming Encounters Date Type Department Care Team (Late st Contact Info) Description 04/24/2024 10:45 AM EST Clinical Support [facility] [address] [place] [address] documented as of this encounter [...] as of this encounter Care Teams Senior Security Analyst Relationship Specialty Start Date End Date Thea Rubio MD PCP - General Family Medicine 09/13/14 07/16/22 documented as of this encounter
--- OUTSIDE RECORDS SUMMARY | 2024-03-15 09:56 | XMS_ITS | Encounter Summary ---
Author Organization [place] [address] Care Team Providers Care Core Feeder Name Role Phone Thea Rubio MD Primary Care Provider +1- [phone] Reason for Visit * Reason Comments Medication Refill Encounter Details Date Type Department Care Team (Late st Contact Info) Description 10/31/2019 Refill [facility] [place] [facility] [address] [place] [address] Migue Anne MD [address] [place] [address] Medication Refill Social History Tobacco Use Types [...] 04/24/2024 10:45 AM EST Clinical Support [facility] [address] [place] [address] documented as of this encounter [...] documented as of this encounter Care Teams Core Feeder Relationship Specialty Start Date End Date Thea Rubio MD PCP - General Family Medicine 09/13/14 07/16/22 documented as of this encounter
--- OUTSIDE RECORDS SUMMARY | 2024-03-15 09:57 | XMS_ITS | Encounter Summary ---
Author Organization [facility] [place] [address] Care Team Providers Care Personal Shopper Name Role Phone Thea Rubio MD Primary Care Provider +1- [phone] Encounter Details Date Type Department Care Team [...] 04/24/2024 10:45 AM EST Clinical Support [facility] [address] [place] [address] documented as of this encounter [...] documented as of this encounter Care Teams Personal Shopper Relationship Specialty Start Date End Date Thea Rubio MD PCP - General Family Medicine 09/13/14 07/16/22 documented as of this encounter
--- OUTSIDE RECORDS SUMMARY | 2024-03-15 09:57 | XMS_ITS | Encounter Summary ---
Author Organization [place] [address] Care Team Providers Care Tar Man Name Role Phone Thea Rubio MD Primary Care Provider +1- [phone] Reason for Visit * Reason Comments Medication Refill Encounter Details Date Type Department Care Team (Late Contact Info) Description 11/24/2018 Refill [facility] [place] [facility] [address] [place] [address] Migue Anne MD [address] [place] [address] Medication Refill Social History Tobacco Use Types [...] [facility] [address] [facility] [place] [address] documented as of this encounter [...] documented as of this encounter Care Teams Tar Man Relationship Specialty Start Date End Date Thea Rubio MD PCP - General Family Medicine 09/13/14 07/16/22 documented as of this encounter
--- OUTSIDE RECORDS SUMMARY | 2024-03-15 09:57 | XMS_ITS | Encounter Summary ---
Author Organization [place] [address] Care Team Providers Care Commercial Loan Underwriter Name Role Phone Thea Rubio MD Primary Care Provider +1- [phone] Reason for Visit * Reason Comments Gynecologic Exam Encounter Details Date Type Department Care Team (Latest Contact Info) Description 10/09/2018 10:30 AM EDT Office Visit [facility] [address] [place] [address] Thea Rubio MD [address] [place] [address] [phone] Well adult exam (Primary Dx); Well woman [...] ??? COLONOSCOPY 01/12/2018 Dr. Aaron Rocha, with [facility]. Normal colon ??? UPPER GASTROINTESTINAL ENDOSCOPY [...] on phone: None Gets together: None Attends druze service: None Active member of club or [...] routine gynecological exam-Pap done, exam normal. - [facility] ART FRAMING MANAGER CYTOLOGY ORDER; Future - ART FRAMING MANAGER CYTOLOGY REQUEST (PAP ONLY) - HPV HIGH [...] get fasting BW before begins steroids orally [facility] Documentation Medication Compliance: Compliant all the time Understanding of Current Medications: Good Medication Compliance Barriers: None or N/A Self-Management Tools: Home weight monitoring Self-Management Ability: Good Willingness to Adopt Healthy Behaviors: Good Potential Barriers to completing treatment plans today: No significant barriers [facility] Flowsheet was completed/reviewed as part of today's visit. Educated patient regarding the diagnosis, medication/treatment, goals, self- management tools and instructions based on their care plan. They verbalized understanding of the education given on the After Visit Summary [AVS] for today's visit. A copy of the AVS was provided either in writing and/or via Golgi. A new medicine was prescribed during this [...] job, you may need to see an therapeutic recreation specialist. How is this treated? Treatment for this [...] hot water. Medicines ?? Take or apply iudb-upj-kwboclu and prescription medicines only as told by [...] 04/04/2001 Document Revised: 11/19/2017 Document Reviewed: 08/23/2015 [employer] Interactive Patient Education ?? 2019 [employer]. documented in this encounter Plan of Treatment Upcoming Encounters Date Type Department Care Team (Late st Contact Info) Description 04/24/2024 10:45 AM EST Clinical Support [address] [address] Scheduled Orders Name Type Priority Associated Diagnoses [...] Procedure Name Priority Date/Time Associated Diagnosis Comments ART FRAMING MANAGER CYTOLOGY REQUEST (PAP ONLY) Routine 10/09/2018 11:58 AM EDT Well woman exam with routine gynecological exam [facility] ART FRAMING MANAGER CYTOLOGY ORDER Routine 10/09/2018 11:58 AM EDT Well woman exam with routine gynecological exam HPV HIGH RISK Routine 10/09/2018 11:58 AM EDT Well woman exam with routine gynecological exam documented in this encounter Results * PROLACTIN LEVEL (10/09/2018 12:29 PM EDT) Prolactin 7.97 4.79 - 23.30 ng/mL 10/09/2018 7:18 PM EDT [facility] [employer] [facility] Blood VENOUS BLOOD / Unknown Venipuncture / Unknown 10/09/2018 12:29 PM EDT 10/09/2018 12:29 PM EDT Narrative [facility] [employer] [facility] - 10/09/2018 7:18 PM EDT Ingestion of abimael doses of biotin (>5 mg/day) taken within 8 hours of drawing blood sample can interfere with this immunoassay test. us Thea Rubio MD CHEMISTRY ORDERABLES Final Result Performing Organization Address [facility] Co de Phone Number [facility] [employer])[address] , [place] [address] * VITAMIN B12 LEVEL (10/09/2018 12:29 PM EDT) Vitamin B12 383 211 - 946 pg/mL 10/09/2018 7:26 PM EDT [facility] [employer] [facility] Blood Venipuncture / Unknown 10/09/2018 12:29 PM EDT 10/09/2018 12:29 PM EDT Narrative [facility] [employer] [facility] - 10/09/2018 7:26 PM EDT Ingestion of abimael doses of biotin (>5 mg/day) taken within 8 hours of drawing blood sample can interfere with this immunoassay test. us Thea Rubio MD CHEMISTRY ORDERABLES Final Result Performing Organization Address [facility] de Phone Number [facility] [employer])[address] , [place] [address] * TSH REFLEX (10/09/2018 12:29 PM EDT) TSH Reflex 2.250 0.270 - 4.200 mcIU/mL 10/09/2018 7:18 PM EDT [facility] [employer] [facility] Blood Venipuncture / Unknown 10/09/2018 12:29 PM EDT 10/09/2018 12:29 PM EDT Narrative [facility] [employer] [facility] - 10/09/2018 7:18 PM EDT Ingestion of abimael doses of biotin (>5 mg/day) taken within 8 hours of drawing blood sample can interfere with this immunoassay test. us Thea Rubio MD CHEMISTRY ORDERABLES Final Result [facility] [address] [facility] , [address] [place] [phone] * COMPREHENSIVE METABOLIC PANEL (10/09/2018 12:29 PM [...] 123 IU/L 10/09/2018 7:18 PM EDT [facility] GFR Afr Am 119 >=60 mL/min/1.7 3 m2 10/09/2018 7:18 PM EDT [facility] GFR Non Afr Am 103 >=60 mL/min/1.7 3 m2 10/09/2018 7:18 PM EDT [facility] Comment: This estimated GFR was calculated [...] MD CHEMISTRY ORDERABLES Final Result [facility] [employer] [address] [facility], [place] [address] [facility] [address] [place], [place] [address] * CBC WITH DIFF (10/09/2018 12:29 PM [...] fL 10/09/2018 6:56 PM EDT [facility] [employer] [facility] MCH 28.6 26.0 - 34.0 pg 10/09/2018 6:56 PM EDT [facility], [facility] MCHC 32.6 30.7 - 35.5 g/dL 10/09/2018 6:56 PM EDT [facility] RDW 13.3 <=14.9 % 10/09/2018 6:56 PM EDT [facility] Platelet 324 155 - 369 x10(3)/mcL 10/09/2018 6:56 PM EDT [facility] MPV 10.1 8.8 - 12.5 fL 10/09/2018 6:56 PM EDT [facility] Neut Percent 64.4 % 10/09/2018 6:56 PM EDT [facility] Comment:Neutrophils equals s egs plus bands Imm Gran% 0.3 % 10/09/2018 6:56 PM EDT [facility] Comment:Automated count of m etamyelocytes, myelocytes and promyelocytes. Lymph Percent 21.3 % 10/09/2018 6:56 PM EDT [facility] Ozark Percent 7.6 % 10/09/2018 6:56 PM EDT [facility] Eos Percent 5.8 % 10/09/2018 6:56 PM EDT [facility] Baso Percent 0.6 % 10/09/2018 6:56 PM EDT [facility] Neut # 4.5 1.6 - 6.1 x10(3)/mcL 10/09/2018 6:56 PM EDT [facility] Comment:Neutrophils equals s egs plus bands IMMGRAN# 0.0 0.0 - 0.1 x10(3)/mcL 10/09/2018 6:56 PM EDT [facility] Comment:Automated count of m etamyelocytes, myelocytes and promyelocytes. An absolute IG <0.1 is reported as 0.0. Lymph # 1.5 1.2 - 3.9 x10(3)/mcL 10/09/2018 6:56 PM EDT [facility] Ozark # 0.5 0.3 - 0.9 x10(3)/mcL 10/09/2018 6:56 PM EDT [facility] Eos# 0.4 0.0 - 0.5 x10(3)/mcL 10/09/2018 6:56 PM EDT [facility] Baso # 0.0 0.0 - 0.1 x10(3)/[facility] 10/09/2018 6:56 PM EDT [facility] Blood Venipuncture / Unknown 10/09/2018 12:29 PM EDT 10/09/2018 12:29 PM EDT Result [facility] Thea Rubio MD HEMATOLOGY ORDERABLES Antonia l Result Performing Organization Address [facility] de Phone Number [employer] [address] [place] [address] , [place] [address] * HPV HIGH RISK (10/09/2018 11:58 AM EDT) HPV HR Not Detected Not Detected 10/10/2018 2:17 PM EDT [facility] Thin Prep SPECIMEN FROM UTERINE CERVIX / Unknown 10/09/2018 11:58 AM EDT 10/09/2018 11:58 AM EDT Narrative [facility] - 10/10/2018 2:17 PM EDT This test [...] ORD ERABLES Final Result Performing Organization Address [facility] Co de Phone Number [employer] [address] [place] [address] , [address] [place] [phone] * (ABNORMAL) ART FRAMING MANAGER CYTOLOGY REQUEST (PAP ONLY) (10/09/2018 11:58 AM EDT) CASE REPORT Gynecologic Cytology Report ? Case: [id number] ? Authorizing Provider: ??Thea Rubio MD ?Collected: ? 10/09/2018 1158 ? Ordering Location: ? [facility] ? Received: ?10/09/2018 1158 ? First Screen: ?Adilson, Lauren, CT ? Pathologist: ? Obdulia Hernandez MD ? Specimen: ?LIQUID-BASED PAP - CERVICAL, Cervix ? 10/12/2018 3:34 PM EDT [facility] PAP FINAL DIAGNOSIS Low grade squamous intraepithelial lesion(A) 10/12/2018 3:34 PM EDT [facility] OSCOPIC DESCRIPTION Microscopic examination is performed and the findings corroborate the diagnosis. 10/12/2018 3:34 PM EDT [facility] PAP SMEAR ADEQUACY Satisfactory for evaluation 10/12/2018 3:34 PM EDT [facility] ENDOCERVICAL T-ZONE Transformation zone absent. 10/12/2018 3:34 PM EDT [facility] EMBEDDED IMAGES 9 3:34 PM EDT [facility] PAP DISCLAIMER The Pap Smear is a screening test that aids in the detection of cervical cancer and cancer precursors. Both false positive and false negative results can occur. The test should be used at regular intervals, and positive results should be confirmed before definitive therapy. Processed using the ThinPrep Super[employer] Automated cytology screening device (DCITS). 10/12/2018 3:34 PM EDT [facility] Thin Prep SPECIMEN FROM UTERINE CERVIX / Unknown 10/09/2018 11:58 AM EDT 10/09/2018 11:58 AM EDT us Thea Rubio MD CYTOLOGY [place] [address] documented in this encounter Visit Diagnoses Diagnosis [...] as of this encounter Care Teams Commercial Loan Underwriter Relationship Specialty Start Date End Date Thea Rubio MD PCP - General Family Medicine 09/13/14 07/16/22 documented as of this encounter
--- OUTSIDE RECORDS SUMMARY | 2024-03-15 09:57 | XMS_ITS | Encounter Summary ---
Author Organization [place] [address] Care Team Providers Care Silk Screen Repairer Name Role Phone Thea Rubio MD Primary Care Provider +1- [phone] Reason for Visit * Reason Comments Medication Refill Encounter Details Date Type Department Care Team ([facility] Contact Info) Description 07/12/2019 Refill [facility] [place] [address] [place] [address] Migue Anne MD [address] [place] [address] Medication Refill Social History Tobacco Use Types [...] Upcoming Encounters Date Type Department Care Team ([facility] Contact Info) Description 04/24/2024 10:45 AM EST Clinical Support [facility] [address] [place] [address] documented as of this encounter [...] documented as of this encounter Care Teams Silk Screen Repairer Relationship Specialty Start Date End Date Thea Rubio MD PCP - General Family Medicine 09/13/14 07/16/22 documented as of this encounter
--- OUTSIDE RECORDS SUMMARY | 2024-03-15 09:57 | XMS_ITS | Encounter Summary ---
Author Organization [place] [address] Care Team Providers Care Powdered Sugar Pulverizer Operator Name Role Phone Thea Rubio MD Primary Care Provider +1- [phone] Reason for Visit * Reason Onset Date Comments Cough 07/14/2019 Encounter Details Date Type Department Care Team (Late st Contact Info) Description 07/14/2019 Telephone [facility] [address] [place] [address] Thea Rubio MD [address] [place] [address] [phone] Cough Social History Tobacco Use Types Packs/Day [...] ? Pt Says She Works in a [employer] house , Around a lot of people,and They Have Reported Off Work Sick but have NotBeen Tested. documented in this encounter Plan of Treatment Upcoming Encounters Date Type Department Care Team (Late st Contact Info) Description 04/24/2024 10:45 AM EST Clinical Support [facility] [address] [place] [address] documented as of this encounter Goals Goal [...] documented as of this encounter Care Teams Powdered Sugar Pulverizer Operator Relationship Specialty Start Date End Date Thea Rubio MD PCP - General Family Medicine 09/13/14 07/16/22 documented as of this encounter
--- OUTSIDE RECORDS SUMMARY | 2024-03-15 09:57 | XMS_ITS | Encounter Summary ---
Author Organization [place] [address] Care Team Providers Care Injection Molding Supervisor Name Role Phone Thea Rubio MD Primary Care Provider +1- [phone] Reason for Visit * Reason Onset Date Comments Other 08/22/2018 Encounter Details Date Type Department Care Team (Late st Contact Info) Description 08/22/2018 Refill [facility] [place] [address] [place] [address] Migue Anne MD [address] [place] [address] Other Social History Tobacco Use Types Packs/Day [...] day script was sent to [facility] [place] electronically for #30 with 1 refill * [...] EST Clinical Support [facility] [address] [place] [address] documented as of this [...] documented as of this encounter Care Teams Injection Molding Supervisor Relationship Specialty Start Date End Date Thea Rubio MD PCP - General Family Medicine 09/13/14 07/16/22 documented as of this encounter
--- OUTSIDE RECORDS SUMMARY | 2024-03-15 09:57 | XMS_ITS | Encounter Summary ---
Author Organization [place] [address] Care Team Providers Care End Touching Machine Operator Name Role Phone Thea Rubio MD Primary Care Provider +1- [phone] Reason for Visit * Reason Comments Injections Encounter Details Date Type Department Care Team (Latest Contact Info) Description 11/24/2018 3:40 PM EDT Clinical Support [facility] [address] [place] [address] Any Whitney RMA Encounter for [...] Clinical Support [facility] [address] [place] [address] documented as of this encounter [...] documented as of this encounter Care Teams End Touching Machine Operator Relationship Specialty Start Date End Date Thea Rubio MD PCP - General Family Medicine 09/13/14 07/16/22 documented as of this encounter
--- OUTSIDE RECORDS SUMMARY | 2024-03-15 09:57 | XMS_ITS | Encounter Summary ---
Author Organization [place] [address] Care Team Providers Care Oil Refinery Process Technician Name Role Phone Thea Rubio MD Primary Care Provider +1- [phone] Reason for Visit * Reason Comments Follow-up ASD * Consultation (Routine) - Closed Specialty Diagnoses / Procedures Referred By Contac t Referred To Contact Internal Medicine-Cardiovascular Disease / Cardiology Diagnoses 7 month follow up Procedures OFFICE VISIT Thea Rubio MD Phone: tel: fax: Migue Anne MD [address] [place] [address] Phone: tel: fax: Referral ID Status Reason Start Date Expiration Date Visits Re quested Visits Authorized [id number] Closed 08/11/2018 08/11/2019 99 99 Encounter Details Date Type Department Care Team (Late st Contact Info) Description 03/25/2019 3:00 PM EST Office Visit [facility] [place] [facility] [address] [place] [address] Migue Anne MD [address] [place] [address] [place] [address] H/O Amplatzer atrial septal defect closure (Primary [...] 04/24/2024 10:45 AM EST Clinical Support [facility] [address] [place] [address] documented as of this encounter Goals Goal [...] documented as of this encounter Care Teams Oil Refinery Process Technician Relationship Specialty Start Date End Date Thea Rubio MD PCP - General Family Medicine 09/13/14 07/16/22 documented as of this encounter
--- OUTSIDE RECORDS SUMMARY | 2024-03-15 09:57 | XMS_ITS | Encounter Summary ---
Author Organization [facility] [place] [address] Care Team Providers Care Audit Associate Name Role Phone Thea Rubio MD Primary Care Provider +1- [phone] Encounter Details Date Type Department Care Team [...] Clinical Support [facility] [address] [place] [address] documented as of this encounter Goals Goal [...] documented as of this encounter Care Teams Audit Associate Relationship Specialty Start Date End Date Thea Rubio MD PCP - General Family Medicine 09/13/14 07/16/22 documented as of this encounter
--- OUTSIDE RECORDS SUMMARY | 2024-03-15 09:57 | XMS_ITS | Encounter Summary ---
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 Procedures MRI LUMBAR SPINE WO CONTRAST Thea Rubio MD Phone: tel: fax: Referral ID Status Reason Start Date Expiration Date Visits Re quested Visits Authorized [id number] Closed 05/31/2019 05/30/2020 1 1 Reason for Visit * MRI/CAT Scan (Routine) - Closed Specialty Diagnoses / Procedures Referred By Contac t Referred To Contact Radiology Diagnoses 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 [address] [facility] [place] [address] Thea Rubio MD [address] [facility] [facility] [place] [address] Chronic left-sided low back [...] 10:45 AM EST Clinical Support [facility] [address] [place] [address] documented as of this encounter Goals [...] ?? CLINICAL HISTORY: ??M54.41-Lumbago with sciatica, right uuzf-XXN-86-CM G89.29-Other chronic iyfx-SWZ-26-CM COMPARISON: ??July 16, 2018. PROCEDURE COMMENTS: Multiplanar [...] AM CLINICAL HISTORY: M54.41-Lumbago with sciatica, right tsli-BKV-45-CM G89.29-Other chronic xpsi-AHJ-26-CM COMPARISON: July 16, 2018. PROCEDURE COMMENTS: Multiplanar [...] documented as of this encounter Care Teams Multimedia Artist Relationship Specialty Start Date End Date Thea Rubio MD PCP - General Family Medicine 09/13/14 07/16/22 documented as of this encounter
--- OUTSIDE RECORDS SUMMARY | 2024-03-15 09:57 | XMS_ITS | Encounter Summary ---
Author Organization [place] [address] Care Team Providers Care Air Intelligence Specialist Name Role Phone Thea Rubio MD Primary Care Provider +1- [phone] Reason for Visit * Reason Comments Procedure [place] * Consultation (Routine) - Closed Specialty Diagnoses / Procedures Referred By Contac t Referred To Contact Obstetrics & Gynecology / Obstetrics and Gynecology Diagnoses Abnormal Pap smear of cervix NEW AUTOMATION QA ANALYST - ABNORMAL PAP PER PCP Procedures NEW GYNECOLOGICAL Thea Rubio MD Phone: tel: fax: Misty Gillespie MD [address] [facility] [place] [address] Phone: tel: fax: Referral ID Status Reason Start Date Expiration Date Visits Re quested Visits Authorized [id number] Closed 10/28/2018 10/28/2019 99 99 Encounter Details Date Type Department Care Team (Late st Contact Info) Description 10/28/2018 2:20 PM EDT Office Visit [facility] [address] [place] [address] Misty Gillespie MD [address] [place] [address] LGSIL on Pap smear of cervix (Primary [...] Clinical Support [facility] [address] [place] [address] Scheduled Orders Name Type Priority Associated Diagnoses Orde r Schedule [place] COLPOSC,CERVIX W/ADJ VAG,W/BX & CURRETAG [place] Charge Routine LGSIL on Pap smear of [...] PM EDT) CASE REPORT Surgical Pathology ?Case: [id number] ? Authorizing Provider: ??Misty Gillespie MD ? Collected: ? 10/28/2018 1508 ? Ordering Location: ? [facility] ? Received: ?10/28/2018 1508 ? Pathologist: ? Makenzie Calix MD ? Specimens: ?? A) - Cervix, Endocervical ? B) - Cervix, ecto ? 10/29/2018 2:57 PM EDT [facility] FINAL DIAGNOSIS A. Endocervix, curettage: - Fragments of benign endocervical glandular tissue and detached benign squamous epithelium. B. Cervix, 9:00, biopsy: - Low-grade squamous intraepithelial lesion (LSIL, CIN1) in a background of mixed inflammation. - Negative for high-grade dysplasia and carcinoma. 10/29/2018 2:57 PM EDT [facility] S DESCRIPTION Part A) Received in [...] one cassette. /ZN 10/29/2018 2:57 PM EDT [facility] MICROSCOPIC DESCRIPTION Microscopic examination is performed and the findings corroborate the diagnosis. 10/29/2018 2:57 PM EDT [facility] EMBEDDED IMAGES 10/29/2018 2:57 PM EDT [facility] Tissue SPECIMEN FROM UTERINE CERVIX / Unknown 10/28/2018 3:08 PM EDT 10/28/2018 3:08 PM EDT Tissue specimen (specimen) SPECIMEN FROM UTERINE CERVIX / Unknown 10/28/2018 3:08 PM EDT 10/28/2018 3:08 PM EDT us Misty Gillespie MD PATHOLOGY ORDERABLES Final Result [facility] [address] [place] [id number] documented in this encounter Visit Diagnoses Diagnosis LGSIL on Pap smear of cervix- Primary documented in this encounter Additional Health Concerns Assessment Noted Time PHQ-9 Depression Total Score: 2 10/07/19 18 8:00 AM EDT PHQ-2 Depression Total Score: 2 10/07/19 18 8:00 AM EDT documented as of this encounter Care Teams Air Intelligence Specialist Relationship Specialty Start Date End Date Thea Rubio MD PCP - General Family Medicine 09/13/14 07/16/22 documented as of this encounter
--- OUTSIDE RECORDS SUMMARY | 2024-03-15 09:57 | XMS_ITS | Encounter Summary ---
Author Organization [place] [address] Care Team Providers Care Solution Director Name Role Phone Thea Rubio MD Primary Care Provider +1- [phone] Reason for Visit * Reason Comments Contraception Encounter Details Date Type Department Care Team (Latest Contact Info) Description 09/24/2019 11:10 AM EDT Clinical Support [facility] [address] [place] [address] Juana Trujillo RMA Surveillance of [...] Clinical Support [facility] [address] [place] [address] documented as of this encounter [...] TEST ORDERAB LES Final Result [facility] [address] [place], [place] [address] [address] documented in this encounter Visit Diagnoses Diagnosis [...] documented as of this encounter Care Teams Solution Director Relationship Specialty Start Date End Date Thea Rubio MD PCP - General Family Medicine 09/13/14 07/16/22 documented as of this encounter
--- OUTSIDE RECORDS SUMMARY | 2024-03-15 09:57 | XMS_ITS | Encounter Summary ---
Author Organization [place] [address] Care Team Providers Care Foundation Drill Operator Helper Name Role Phone Thea Rubio MD Primary Care Provider +1- [phone] Reason for Visit * Reason Comments Contraception Encounter Details Date Type Department Care Team (Latest Contact Info) Description 06/24/2019 9:00 AM EST Clinical Support [facility] [address] [place] [address] Any Whitney RMA Surveillance for [...] Clinical Support [facility] [address] [place] [address] documented as of this encounter [...] documented as of this encounter Care Teams Foundation Drill Operator Helper Relationship Specialty Start Date End Date Thea Rubio MD PCP - General Family Medicine 09/13/14 07/16/22 documented as of this encounter
--- OUTSIDE RECORDS SUMMARY | 2024-03-15 09:57 | XMS_ITS | Encounter Summary ---
Author Organization [facility] [place] [address] Care Team Providers Care Ribbon Cleaner Name Role Phone Thea Rubio MD Primary Care Provider +1- [phone] Encounter Details Date Type Department Care Team [...] EST Clinical Support [facility] [address] [place] [address] documented as of this encounter [...] documented as of this encounter Care Teams Ribbon Cleaner Relationship Specialty Start Date End Date Thea Rubio MD PCP - General Family Medicine 09/13/14 07/16/22 documented as of this encounter
--- OUTSIDE RECORDS SUMMARY | 2024-03-15 09:57 | XMS_ITS | Encounter Summary ---
Author Organization [place] [address] Care Team Providers Care Marble Installer Name Role Phone Thea Rubio MD Primary Care Provider +1- [phone] Reason for Referral * Consultation (Routine) - Closed Specialty Diagnoses / Procedures Referred By Amalia tuttle Referred To Contact Genetics Diagnoses Family history of ovarian cancer Misty Gillespie MD [address] [place] [place] [address] Phone: tel: fax: [facility] [address] [place] [address] Phone: tel: fax: Referral ID Status Reason Start Date Expiration Date Visits Re quested Visits Authorized [id number] Closed 09/30/2019 09/29/2020 99 99 Reason for Visit * Reason Comments Gynecologic Exam * Consultation (Routine) - Closed Specialty Diagnoses / Procedures Referred By Amalia t Referred To Contact Obstetrics & Gynecology / Obstetrics and Gynecology Diagnoses Abnormal Pap smear of cervix NEW GANG BOSS - ABNORMAL PAP PER PCP Procedures NEW GYNECOLOGICAL Thea Rubio MD Phone: tel: fax: Misty Gillespie MD [address] [place] [address] Phone: tel: fax: Referral ID Status Reason Start Date Expiration Date Visits Re quested Visits Authorized [id number] Closed 10/28/2018 10/28/2019 99 99 Encounter Details Date Type Department Care Team (Late st Contact Info) Description 09/30/2019 3:40 PM EDT Office Visit [facility] [address] [place] [address] Misty Gillespie MD [address] [place] [phone] Well woman exam (Primary Dx); Family history [...] Gillespie MD - 09/30/2019 3:40 PM EDT GANG BOSS ANNUAL EXAM HPI: Patient is a 39 [...] ??? COLONOSCOPY 01/12/2018 Dr. Aaron Rocha, with [facility]. Normal colon ??? UPPER GASTROINTESTINAL ENDOSCOPY 12/04/2017 [...] for annual exam: 1. Well woman exam [facility] GANG BOSS CYTOLOGY ORDER [facility] GANG BOSS CYTOLOGY ORDER GANG BOSS CYTOLOGY REQUEST (PAP ONLY) HPV HIGH RISK 2. Family history of breast cancer [facility] DIGITAL SCREENING W CAD BILAT 3. Family history of ovarian cancer AMB REFERRAL TO GENETIC COUNSELING Patient states she wants a hysterectomy. I explained to her that she it is safe to continue the depo provera skilled nursing as she has no contra-indications to progesterone [...] information, I will likely refer her to special weapons and tactics officer oncology for surgical management of her hysterectomy if she decides to proceed. Misty Gillespie MD documented in this encounter Plan of Treatment Upcoming Encounters Date Type Department Care Team (Late st Contact Info) Description 04/24/2024 10:45 AM EST Clinical Support [facility] [address] [place] [address] Scheduled Referrals Name Type Priority Associated Diagnoses [...] Procedure Name Priority Date/Time Associated Diagnosis Comments GANG BOSS CYTOLOGY REQUEST (PAP ONLY) Routine 09/30/2019 4:17 PM EDT Well woman exam [facility] GANG BOSS CYTOLOGY ORDER Routine 09/30/2019 4:17 PM EDT Well woman exam HPV HIGH RISK Routine 09/30/2019 4:17 PM EDT Well woman exam documented in this encounter Results * HPV HIGH RISK (09/30/2019 4:17 PM EDT) HPV HR Not Detected Not Detected 10/01/2019 2:50 AM EDT [facility] Thin Prep SPECIMEN FROM UTERINE CERVIX / Unknown 09/30/2019 4:17 PM EDT 09/30/2019 4:17 PM EDT Narrative PREFERRED [facility] - 10/01/2019 2:50 AM EDT This test [...] - GENERAL JOSE L HENLEY Final Result [facility] [address] [facility] , [place] [address] * (ABNORMAL) GANG BOSS CYTOLOGY REQUEST (PAP ONLY) (09/30/2019 4:17 PM EDT) CASE REPORT Gynecologic Cytology Report ? Case: [id number] ? Authorizing Provider: ??Misty Gillespie MD ? Collected: ? 09/30/2019 1617 ? Ordering Location: ? [facility] ? Received: ?09/30/2019 1617 ? First Screen: ?Ry, Diego Rocha, ? CT ? Pathologist: ? Jesse Rodriguez MD ? Specimen: ?LIQUID-BASED PAP - CERVICAL/ENDOCERV ICAL, Cervix, Endocervical ? 10/01/2019 12:32 PM EDT [facility] PAP FINAL DIAGNOSIS Low grade squamous intraepithelial lesion(A) 10/01/2019 12:32 PM EDT [facility] OSCOPIC DESCRIPTION Microscopic examination is performed and the findings corroborate the diagnosis. 10/01/2019 12:32 PM EDT [facility] PAP SMEAR ADEQUACY Satisfactory for evaluation 10/01/2019 12:32 PM EDT [facility] ENDOCERVICAL T-ZONE Transformation zone present 10/01/2019 12:32 PM EDT [facility] EMBEDDED IMAGES 0 12:32 PM EDT [facility] PAP DISCLAIMER The Pap Smear is a screening test that aids in the detection of cervical cancer and cancer precursors. Both false positive and false negative results can occur. The test should be used at regular intervals, and positive results should be confirmed before definitive therapy. Processed using the ThinPrep [employer] Automated cytology screening device (Pipeline). 10/01/2019 12:32 PM EDT [facility] Thin Prep ENDOCERVICAL STRUCTURE / Unknown 09/30/2019 4:17 PM EDT 09/30/2019 4:17 PM EDT us Misty Gillespie MD CYTOLOGY ORDERABLES [place] [address] documented in this encounter Visit Diagnoses Diagnosis [...] as of this encounter Care Teams Marble Installer Relationship Specialty Start Date End Date Thea Rubio MD PCP - General Family Medicine 09/13/14 07/16/22 documented as of this encounter
--- OUTSIDE RECORDS SUMMARY | 2024-03-15 09:57 | XMS_ITS | Encounter Summary ---
Author Organization [place] [address] Care Team Providers Care Privacy Compliance Manager Name Role Phone Thea Rubio MD Primary Care Provider +1- [phone] Reason for Referral * Physical Therapy (Routine) - Closed Specialty Diagnoses / Procedures Referred By Contstephanie t Referred To Contact Physical Therapy Diagnoses Right leg pain Thea Rubio MD Phone: tel: fax: Referral ID Status Reason Start Date Expiration Date Visits Re quested Visits Authorized [id number] Closed 05/12/2019 05/11/2020 1 1 Question Answer Reason for Physical Therapy Evaluate and Treat - 4-6 visits to treat chronic LBP and Rt leg pain Reason for Visit * Reason Comments Pain leg cramps Encounter Details Date Type Department Care Team (Late st Contact Info) Description 05/12/2019 1:45 PM EST Office Visit [facility] [address] [place] [address] Thea Rubio MD [address] [place] [address] Right leg pain (Primary Dx) Social [...] HISTORY: M99.03-Segmental and somatic dysfunction of lumbar [id number] ?? COMPARISON: 06/13/2012. ?? PROCEDURE COMMENTS: 3 [...] 0 - AMB REFERRAL TO PHYSICAL THERAPY [facility] Documentation Medication Compliance: Compliant all the time Understanding of Current Medications: Good Medication Compliance Barriers: None or N/A Self-Management Tools: Home blood pressure monitoring, Home weight monitoring Self-Management Ability: Good Willingness to Adopt Healthy Behaviors: Fair Potential Barriers to completing treatment plans today: No significant barriers [facility] Flowsheet was completed/reviewed as part of today's visit. Educated patient regarding the diagnosis, medication/treatment, goals, self- management tools and instructions based on their care plan. They verbalized understanding of the education given on the After Visit Summary [AVS] for today's visit. A copy of the AVS was provided either in writing and/or via [employer]. A new medicine was prescribed during this [...] becomes more flexible: 1. Get into a [id number] position on a firm surface. Keep your [...] 05/15/2005 Document Revised: 08/11/2018 Document Reviewed: 06/01/2015 [employer] Patient Education ?? 2019 [employer] documented in this encounter Plan of Treatment Upcoming Encounters Date Type Department Care Team (Late st Contact Info) Description 04/24/2024 10:45 AM EST Clinical Support [facility] [address] [place] [address] Scheduled Referrals Name Type Priority [...] documented as of this encounter Care Teams Privacy Compliance Manager Relationship Specialty Start Date End Date Thea Rubio MD PCP - General Family Medicine 09/13/14 07/16/22 documented as of this encounter
--- OUTSIDE RECORDS SUMMARY | 2024-03-15 09:57 | XMS_ITS | Encounter Summary ---
Author Organization [place] [address] Care Team Providers Care Hod Carrier Name Role Phone Thea Rubio MD Primary Care Provider +1- [phone] Reason for Visit * Reason Comments Medication Refill Encounter Details Date Type Department Care Team (Late st Contact Info) Description 10/25/2018 [facility] [address] [place] [address] Thea Rubio MD [address] [place], [place] [phone] Medication Refill Social History Tobacco Use Types [...] EST Clinical Support [facility] [address] [place] [address] documented as of this encounter [...] documented as of this encounter Care Teams Hod Carrier Relationship Specialty Start Date End Date Thea Rubio MD PCP - General Family Medicine 09/13/14 07/16/22 documented as of this encounter
--- OUTSIDE RECORDS SUMMARY | 2024-03-15 09:57 | XMS_ITS | Encounter Summary ---
Author Organization [place] [address] Care Team Providers Care Assistant Professor Nurse Education Name Role Phone Thea Rubio MD Primary Care Provider +1- [phone] Encounter Details Date Type Department Care Team (Latest Contact Info) Description 10/09/2018 12:28 PM EDT - 10/09/2018 11:59 PM EDT Hospital Encounter [facility] [address] [place] [id number] [place], [facility] [place] [facility] adult exam; Cyanocobalamin deficiency; Breast [...] [facility] [address] [place] [address] documented as of this encounter Goals Goal [...] - 23.30 ng/mL 10/09/2018 7:18 PM EDT [facility] Blood VENOUS BLOOD / Unknown Venipuncture / Unknown 10/09/2018 12:29 PM EDT 10/09/2018 12:29 PM EDT Narrative [facility] - 10/09/2018 7:18 PM EDT Ingestion of abimael doses of biotin (>5 mg/day) taken within 8 hours of drawing blood sample can interfere with this immunoassay test. us Thea Rubio MD CHEMISTRY ORDERABLES Final Result [facility] [address] [facility] , [place] [address] * VITAMIN B12 LEVEL (10/09/2018 12:29 PM EDT) Vitamin B12 383 211 - 946 pg/mL 10/09/2018 7:26 PM EDT [facility] Blood Venipuncture / Unknown 10/09/2018 12:29 PM EDT 10/09/2018 12:29 PM EDT [address]ative [facility], [facility] - 10/09/2018 7:26 PM EDT Ingestion of abimael doses of biotin (>5 mg/day) taken within 8 hours of drawing blood sample can interfere with this immunoassay test. Thea Rubio MD CHEMISTRY ORDERABLES Final Result Performing Organization Address City/[facility]/ZIP Co de Phone Number [facility] [employer] [facility] [address] [facility] , [place] [address] * TSH REFLEX (10/09/2018 12:29 PM EDT) TSH Reflex 2.250 0.270 - 4.200 mcIU/mL 10/09/2018 7:18 PM EDT [facility], [facility] Blood Venipuncture / Unknown 10/09/2018 12:29 PM EDT 10/09/2018 12:29 PM EDT Narrative [facility] - 10/09/2018 7:18 PM EDT Ingestion of abimael doses of biotin (>5 mg/day) taken within 8 hours of drawing blood sample can interfere with this immunoassay test. Thea Rubio MD CHEMISTRY ORDERABLES Final Result [facility], [facility] [address] [facility] , [place] [address] * COMPREHENSIVE METABOLIC PANEL (10/09/2018 12:29 PM EDT) Sodium 139 136 - 145 mmol/L 10/09/2018 7:18 PM EDT [facility], [facility] Potassium 3.5 3.5 - 5.0 mmol/L 10/09/2018 7:18 PM EDT [facility] Chloride 105 98 - 107 mmol/L 10/09/2018 7:18 PM EDT [facility] Total CO2 23 22 - 29 mmol/L 10/09/2018 7:18 PM EDT [facility] Anion Gap 11 7 - 16 mmol/L 10/09/2018 7:18 PM EDT [facility] Calcium 9.1 8.6 - 10.4 mg/dL 10/09/2018 7:18 PM EDT [facility] Glucose Lvl 89 74 - 100 mg/dL 10/09/2018 7:18 PM EDT [facility] BUN 6 6 - 20 mg/dL 10/09/2018 7:18 PM EDT [facility] Creatinine 0.75 0.51 - 1.30 mg/dL 10/09/2018 7:18 PM EDT [facility] Albumin 4.1 3.5 - 5.2 gm/dL 10/09/2018 7:18 PM EDT [facility] Total Protein 7.2 6.4 - 8.3 gm/dL 10/09/2018 7:18 PM EDT [facility] Bili Total 0.4 0.1 - 1.3 mg/dL 10/09/2018 7:18 PM EDT [facility] ALT 6 <=41 IU/L 10/09/2018 7:18 PM EDT [facility] AST 13 <=40 IU/L 10/09/2018 7:18 PM EDT [facility] Alk Phos 88 36 - 123 IU/L 10/09/2018 7:18 PM EDT [facility] GFR Afr Am 119 >=60 mL/min/1.7 3 m2 10/09/2018 7:18 PM EDT [facility] GFR Non Afr Am 103 >=60 mL/min/1.7 3 m2 10/09/2018 7:18 PM EDT [facility] Comment: This estimated GFR was calculated [...] PM EDT 10/09/2018 12:29 PM EDT us Teha Rubio MD CHEMISTRY ORDERABLES Final Result [facility] [address] [facility] , [place] [address] [facility] 1 [place] [address] * CBC WITH DIFF (10/09/2018 [...] 10/09/2018 6:56 PM EDT [facility] Comment:Automated count of m etamyelocytes, myelocytes and promyelocytes. Lymph Percent 21.3 % 10/09/2018 6:56 PM EDT [facility] [place] Percent 7.6 % 10/09/2018 6:56 PM EDT [facility] Eos Percent 5.8 % 10/09/2018 6:56 PM EDT [facility] Baso Percent 0.6 % 10/09/2018 6:56 PM EDT [facility] Neut # 4.5 1.6 - 6.1 x10(3)/[facility] 10/09/2018 6:[address] [facility], [facility] Comment:Neutrophils equals s egs plus bands IMMGRAN# 0.0 0.0 - 0.1 x10(3)/mcL 10/09/2018 6:[address] [facility], [facility] Comment:Automated count of m etamyelocytes, myelocytes and promyelocytes. An absolute IG <0.1 is reported as 0.0. Lymph # 1.5 1.2 - 3.9 x10(3)/mcL 10/09/2018 6:56 PM EDT [facility] [place] # 0.5 0.3 - 0.9 x10(3)/mcL 10/09/2018 6:56 PM EDT [facility] Eos# 0.4 0.0 - 0.5 x10(3)/[facility] 10/09/2018 6:[address] [facility], [facility] Baso # 0.0 0.0 - 0.1 x10(3)/mcL 10/09/2018 6:[address] [facility], [facility] Blood Venipuncture / Unknown 10/09/2018 12:29 PM EDT 10/09/2018 12:29 PM EDT us Thea Rubio MD HEMATOLOGY ORDERABLES Antonia zach Result [facility], [facility] [address] [facility] , [address] [place] [id number] documented in this encounter Visit Diagnoses Diagnosis [...] as of this encounter Care Teams Assistant Professor Nurse Education Relationship Specialty Start Date End Date Thea Rubio MD PCP - General Family Medicine 09/13/14 07/16/22 documented as of this encounter
--- OUTSIDE RECORDS SUMMARY | 2024-03-15 09:57 | XMS_ITS | Encounter Summary ---
Author Organization [facility] [place] [address] Care Team Providers Care Interventional Pain Physician Name Role Phone Thea Rubio MD Primary Care Provider +1- [phone] Encounter Details Date Type Department Care Team [...] 04/24/2024 10:45 AM EST Clinical Support [facility] [address] [place] [address] documented as of this [...] documented as of this encounter Care Teams Interventional Pain Physician Relationship Specialty Start Date End Date Thea Rubio MD PCP - General Family Medicine 09/13/14 07/16/22 documented as of this encounter
--- OUTSIDE RECORDS SUMMARY | 2024-03-15 09:57 | XMS_ITS | Encounter Summary ---
Author Organization [place] [address] Care Team Providers Care Robotics Engineer Name Role Phone Thea Rubio MD Primary Care Provider +1- [phone] Reason for Visit * Reason Comments Medication Refill Encounter Details Date Type Department Care Team (Late st Contact Info) Description 05/15/2019 Refill [facility] [address] [place] [address] Thea Rubio MD [address] [place], [place] [id number] Medication Refill Social History Tobacco Use Types [...] 04/24/2024 10:45 AM EST Clinical Support [facility] [address] [place] [address] documented as of this encounter [...] documented as of this encounter Care Teams Robotics Engineer Relationship Specialty Start Date End Date Thea Rubio MD PCP - General Family Medicine 09/13/14 07/16/22 documented as of this encounter
--- OUTSIDE RECORDS SUMMARY | 2024-03-15 09:57 | XMS_ITS | Encounter Summary ---
Author Organization [facility] [place] [address] Care Team Providers Care Planing Machine Operator Name Role Phone Thea Rubio MD Primary Care Provider +1- [phone] Encounter Details Date Type Department Care Team [...] 04/24/2024 10:45 AM EST Clinical Support [facility] [address] [place] [address] documented as of this encounter [...] documented as of this encounter Care Teams Planing Machine Operator Relationship Specialty Start Date End Date Thea Rubio MD PCP - General Family Medicine 09/13/14 07/16/22 documented as of this encounter
--- OUTSIDE RECORDS SUMMARY | 2024-03-15 09:57 | XMS_ITS | Encounter Summary ---
Author Organization [place] [address] Care Team Providers Care Lead Oxide Mill Tender Name Role Phone Thea Rubio MD Primary Care Provider +1- [phone] Reason for Visit * Reason Comments Injections control shot d epo provera Encounter Details Date Type Department Care Team (Latest Contact Info) Description 08/21/2018 1:30 PM EDT Clinical Support [facility] [address] [place] [address] Breezy Rubio MA control (Primary [...] 04/24/2024 10:45 AM EST Clinical Support [facility] [address] [place] [address] documented as of this encounter [...] Ur negative POS/NEG SEP OFFICE Lot Number [id number] SEP OFFICE Expiration Date ,020 SEP OFFICE [...] as of this encounter Care Teams Lead Oxide Mill Tender Relationship Specialty Start Date End Date Thea Rubio MD PCP - General Family Medicine 09/13/14 07/16/22 documented as of this encounter
--- OUTSIDE RECORDS SUMMARY | 2024-03-15 09:57 | XMS_ITS | Encounter Summary ---
Author Organization [place] [address] Care Team Providers Care Atv Mechanic Name Role Phone Thea Rubio MD Primary Care Provider +1- [phone] Reason for Visit * Reason Comments Follow-up atrial septal defect * Consultation (Routine) - Closed Specialty Diagnoses / Procedures Referred By Contac t Referred To Contact Internal Medicine-Cardiovascular Disease / Cardiology Diagnoses 7 month follow up Procedures OFFICE VISIT Thea Rubio MD Phone: tel: fax: Migue Anne MD [address] [place] [address] Phone: tel: fax: Referral ID Status Reason Start Date Expiration Date Visits Re quested Visits Authorized [id number] Closed 08/11/2018 08/11/2019 99 99 Encounter Details Date Type Department Care Team (Late st Contact Info) Description 09/21/2018 4:00 PM EDT Office Visit [facility] [facility] [address] [place] [address] Migue Anne MD [address] [place] [address] ASD (atrial septal defect) (Primary Dx); H/O [...] steps and less chest pain. Recently seenby Sld Teacher and given a clean bill. Admits she [...] 04/24/2024 10:45 AM EST Clinical Support [facility] [address] [place] [address] documented as of this encounter Goals Goal [...] documented as of this encounter Care Teams Atv Mechanic Relationship Specialty Start Date End Date Thea Rubio MD PCP - General Family Medicine 09/13/14 07/16/22 documented as of this encounter
--- OUTSIDE RECORDS SUMMARY | 2024-03-15 09:57 | XMS_ITS | Encounter Summary ---
Author Organization [place] [address] Care Team Providers Care Supply Chain Analyst Name Role Phone Thea Rubio MD Primary Care Provider +1- [phone] Reason for Visit * Reason Comments Contraception Encounter Details Date Type Department Care Team (Latest Contact Info) Description 03/25/2019 2:30 PM EST Clinical Support [facility] [address] [place] [address] Allyn Sumner CMA Surveillance for [...] Clinical Support [facility] [address] [place] [address] documented as of this encounter [...] documented as of this encounter Care Teams Supply Chain Analyst Relationship Specialty Start Date End Date Thea Rubio MD PCP - General Family Medicine 09/13/14 07/16/22 documented as of this encounter
--- OUTSIDE RECORDS SUMMARY | 2024-03-15 09:57 | XMS_ITS | Encounter Summary ---
Author Organization [place] [address] Care Team Providers Care Oral Surgery Physician Name Role Phone Thea Rubio MD Primary Care Provider +1- [phone] Encounter Details Date Type Department Care Team (Late st Contact Info) Description 08/26/2018 Orders Only [facility] [place] [facility] [address] [place] [address] Magdalena Tello RMA ASD (atrial [...] 04/24/2024 10:45 AM EST Clinical Support [facility] [address] [place] [address] documented as of this encounter [...] documented as of this encounter Care Teams Oral Surgery Physician Relationship Specialty Start Date End Date Thea Rubio MD PCP - General Family Medicine 09/13/14 07/16/22 documented as of this encounter
--- OUTSIDE RECORDS SUMMARY | 2024-03-15 09:57 | XMS_ITS | Encounter Summary ---
Author Organization [facility] [place] [place] [address] Care Team Providers Care Pie Bottomer Name Role Phone Thea Rubio MD Primary Care Provider +1- [phone] Encounter Details Date Type Department Care Team [...] Clinical Support [facility] [address] [place] [address] documented as of this encounter Goals Goal [...] documented as of this encounter Care Teams Pie Bottomer Relationship Specialty Start Date End Date Thea Rubio MD PCP - General Family Medicine 09/13/14 07/16/22 documented as of this encounter
--- OUTSIDE RECORDS SUMMARY | 2024-03-15 09:57 | XMS_ITS | Encounter Summary ---
Author Organization [place] [address] Care Team Providers Care Geospatial Specialist Name Role Phone Thea Rubio MD Primary Care Provider +1- [phone] Reason for Visit * Reason Comments Medication Refill Encounter Details Date Type Department Care Team (Late st Contact Info) Description 05/08/2019 Refill [facility] [address] [place] [address] Thea Rubio MD [address] [place] [address] [phone] Medication Refill Social History Tobacco Use Types [...] 10:45 AM EST Clinical Support [facility] [address] [place] [address] documented as of this encounter [...] documented as of this encounter Care Teams Geospatial Specialist Relationship Specialty Start Date End Date Thea Rubio MD PCP - General Family Medicine 09/13/14 07/16/22 documented as of this encounter
--- OUTSIDE RECORDS SUMMARY | 2024-03-15 09:57 | XMS_ITS | Encounter Summary ---
Author Organization [facility] [place] [place] [address] Care Team Providers Care Billing Representative Name Role Phone Thea Rubio MD Primary Care Provider +1- [phone] Encounter Details Date Type Department Care Team [...] Clinical Support [facility] [address] [place] [phone] documented as of this encounter Goals Goal [...] as of this encounter Care Teams Billing Representative Relationship Specialty Start Date End Date Thea Rubio MD PCP - General Family Medicine 09/13/14 07/16/22 documented as of this encounter
--- OUTSIDE RECORDS SUMMARY | 2024-03-15 09:57 | XMS_ITS | Encounter Summary ---
Author Organization [place] [address] Care Team Providers Care Pasting Machine Offbearer Name Role Phone Thea Rubio MD Primary Care Provider +1- [phone] Reason for Visit * Reason Comments Medication Refill Encounter Details Date Type Department Care Team (Late st Contact Info) Description 09/20/2018 Refill SEP [facility] [address] [place] [address] Thea Rubio MD [address] [place], [place] [phone] Medication Refill Social History Tobacco Use Types [...] Clinical Support [facility] [address] [place] [address] documented as of this encounter [...] documented as of this encounter Care Teams Pasting Machine Offbearer Relationship Specialty Start Date End Date Thea Rubio MD PCP - General Family Medicine 09/13/14 07/16/22 documented as of this encounter
--- OUTSIDE RECORDS SUMMARY | 2024-03-15 09:58 | XMS_ITS | Encounter Summary ---
Author Organization [place] [address] Care Team Providers Care Train Controller Name Role Phone Thea Rubio MD Primary Care Provider +1- [phone] Reason for Visit * Reason Onset Date Comments Other 04/02/2018 numbness and CP Encounter Details Date Type Department Care Team (Late st Contact Info) Description 04/02/2018 Telephone SEP [facility] [place] [address] [place] [address] Migue Anne MD [address] [place] [address] Other (numbness and CP) Social History Tobacco [...] afternoon at 1430 - Pt tentatively scheduled. [facility]. ([place], thank you) * Telephone Encounter - Magdalena Tello RMA - 04/02/2018 8:15 AM EST Please call the patient and triage. Will route to the spool fixer * Telephone Encounter - Magdalena Tello RMA [...] left side, and for the last few Isacc've had sharp pains on the left side of my chest that comes and goes documented in this encounter Plan of Treatment Upcoming Encounters Date Type Department Care Team (Late st Contact Info) Description 04/24/2024 10:45 AM EST Clinical Support [facility] [address] [place] [address] documented as of this encounter [...] documented as of this encounter Care Teams Train Controller Relationship Specialty Start Date End Date Thea Rubio MD PCP - General Family Medicine 09/13/14 07/16/22 documented as of this encounter
--- OUTSIDE RECORDS SUMMARY | 2024-03-15 09:58 | XMS_ITS | Encounter Summary ---
Author Organization [place] [address] Care Team Providers Care Lyric Writer Name Role Phone Thea Rubio MD Primary Care Provider +1- [phone] Reason for Visit * Reason Comments Follow-up depression f/u Encounter Details Date Type Department Care Team (Late st Contact Info) Description 02/17/2018 3:15 PM EDT Office Visit [facility] [address] [place] [address] Dallin Chou PA-C [address] [place] [address] Strain of left trapezius muscle, [...] ??? COLONOSCOPY 01/12/2018 Dr. Aaron Rocha, with [facility]. Normal colon ??? UPPER GASTROINTESTINAL ENDOSCOPY [...] Return in about 2 weeks (around 03/03/2018). [facility] Documentation Medication Compliance: Compliant all the time Understanding of Current Medications: Good Medication Compliance Barriers: None or N/A Self-Management Tools: N/A, no chronic conditions Self-Management Ability: Good Willingness to Adopt Healthy Behaviors: Good Potential Barriers to completing treatment plans today: No significant barriers [facility] Flowsheet was completed/reviewed as part of today's visit. Educated patient regarding the diagnosis, medication/treatment, goals, self- management tools and instructions based on their care plan. They verbalized understanding of the education given on the After Visit Summary [AVS] for today's visit. A copy of the AVS was provided either in writing and/or via [employer]. A new medicine was not prescribed on this visit. documented in this encounter Plan of Treatment Upcoming Encounters Date Type Department Care Team (Late st Contact Info) Description 04/24/2024 10:45 AM EST Clinical Support [facility] [address] [place] [address] documented as of this encounter Goals Goal [...] documented as of this encounter Care Teams Lyric Writer Relationship Specialty Start Date End Date Thea Rubio MD PCP - General Family Medicine 09/13/14 07/16/22 documented as of this encounter
--- OUTSIDE RECORDS SUMMARY | 2024-03-15 09:58 | XMS_ITS | Encounter Summary ---
Author Organization [place] [address] Care Team Providers Care Meat Washer Name Role Phone Thea Rubio MD Primary Care Provider +1- [phone] Encounter Details Date Type Department Care Team (Late Contact Info) Description 01/28/2018 Orders Only [facility] [address] [place] [address] Thea Rubio MD [address] [place] [address] [phone] Anemia, unspecified type (Primary Dx) Social History [...] [facility] [address] [place] [address] documented as of this encounter Goals Goal Patient Goal Type Associated Problems Recent Progress Patient-Stated? Author Maintain a healthy diet, exercise regularly and maintain an ideal body weight General No Thea Rubio MD Stay Tobacco Free Lifestyle No Tcheng, Teha Pimentel MD documented as of this encounter [...] Final Result [facility] 1 [facility] , [place] [address] * CBC WITH DIFF (04/15/2018 11:33 AM [...] 04/15/2018 2:47 PM EST [facility] MPV 10.2 8.8 - 12.5 fL 04/15/2018 2:47 PM EST [facility] Neut Percent 70.8 % 04/15/2018 2:47 PM EST [facility] Comment:Neutrophils equals s egs plus bands Imm Gran% 0.4 % 04/15/2018 2:47 PM EST [facility] Comment:Automated count of m etamyelocytes, myelocytes and promyelocytes. Lymph Percent 17.7 % 04/15/2018 2:47 PM EST [facility] [place] Percent 6.0 % 04/15/2018 2:47 PM EST [facility] Eos Percent 4.8 % 04/15/2018 2:47 PM EST [facility] Baso Percent 0.3 % 04/15/2018 2:47 PM EST [facility] Neut # 5.3 1.6 - 6.1 x10(3)/mcL 04/15/2018 2:47 PM EST [facility] Comment:Neutrophils equals s egs plus bands IMMGRAN# 0.0 0.0 - 0.1 x10(3)/mcL 04/15/2018 2:47 PM EST [facility] Comment:Automated count of m etamyelocytes, myelocytes and promyelocytes. An absolute IG <0.1 is reported as 0.0. Lymph # 1.3 1.2 - 3.9 x10(3)/mcL 04/15/2018 2:47 PM EST [facility] [place] # 0.5 0.3 - 0.9 x10(3)/mcL 04/15/2018 2:47 PM EST [facility] Eos# 0.4 0.0 - 0.5 x10(3)/mcL 04/15/2018 2:47 PM EST [facility] Baso # 0.0 0.0 - 0.1 x10(3)/mcL 04/15/2018 2:47 PM EST [facility] Blood Venipuncture / Unknown 04/15/2018 11:33 AM EST 04/15/2018 11:33 AM EST us Thea Rubio MD HEMATOLOGY ORDERABLES Antonia l Result Performing Organization Address City/[facility]/ZIP Co de Phone Number [facility] , [place] [address] * VITAMIN B12 LEVEL (04/15/2018 11:33 AM EST) Vitamin B12 440 211 - 946 pg/mL 04/15/2018 3:15 PM EST [facility] Blood Venipuncture / Unknown 04/15/2018 11:33 AM EST 04/15/2018 11:33 AM EST Narrative [facility] - 04/15/2018 3:15 PM EST Ingestion of abimael doses of biotin (>5 mg/day) taken within 8 hours of drawing blood sample can interfere with this immunoassay test. us Thea Rubio MD CHEMISTRY ORDERABLES Final Result Performing Organization Address [facility] de Phone Number [facility] [address] [facility] , [place] [address] documented in this encounter Visit Diagnoses Diagnosis Anemia, unspecified type- Primary documented in this encounter Additional Health Concerns Assessment Noted Time PHQ-9 Depression Total Score: 2 10/07/19 18 8:00 AM EDT PHQ-2 Depression Total Score: 2 10/07/19 18 8:00 AM EDT documented as of this encounter Care Teams Meat Washer Relationship Specialty Start Date End Date Thea Rubio MD PCP - General Family Medicine 09/13/14 07/16/22 documented as of this encounter
--- OUTSIDE RECORDS SUMMARY | 2024-03-15 09:58 | XMS_ITS | Encounter Summary ---
Author Organization [place] [address] Care Team Providers Care Gathering Worker Name Role Phone Thea Rubio MD Primary Care Provider +1- [phone] Encounter Details Date Type Department Care Team (Latest Contact Info) Description 05/19/2018 3:03 PM EST - 05/19/2018 11:59 PM EST Hospital Encounter [facility] [place] [address] ASD (atrial septal defect) Discharge [...] 04/24/2024 10:45 AM EST Clinical Support [facility] [address] [place] [address] documented as of this encounter Goals Goal [...] 05/19/2018 3:11 PM EST us Tiny Ortega COMPUTER ENGINEERING TECHNOLOGIST HEMATOLOGY ORDERABLES Antonia serrano Result [facility] [address] [facility] , [place] [address] * BASIC METABOLIC PANEL (05/19/2018 [...] 05/19/2018 3:11 PM EST us Tiny Ortega COMPUTER ENGINEERING TECHNOLOGIST CHEMISTRY ORDERABLES Final Result [email or web address] [address] [facility] , [place] [address] documented in this encounter Visit Diagnoses Diagnosis ASD (atrial septal defect) Ostium secundum type atrial septal defect documented in this encounter Additional Health Concerns Assessment Noted Time PHQ-9 Depression Total Score: 2 10/07/19 18 8:00 AM EDT PHQ-2 Depression Total Score: 2 10/07/19 18 8:00 AM EDT documented as of this encounter Care Teams Gathering Worker Relationship Specialty Start Date End Date Thea Rubio MD PCP - General Family Medicine 09/13/14 07/16/22 documented as of this encounter
--- OUTSIDE RECORDS SUMMARY | 2024-03-15 09:58 | XMS_ITS | Encounter Summary ---
Author Organization [place] [address] Care Team Providers Care Radio Announcer Name Role Phone Thea Rubio MD Primary Care Provider +1- [phone] Reason for Visit * Reason Comments Mass pt has a knot on her left shoulder x 2 days Depression depression med not w orking anymore ( lexapro) Encounter Details Date Type Department Care Team (Late st Contact Info) Description 02/03/2018 3:15 PM EDT Office Visit [facility] [address] [place] [address] Dallin Chou PA-C [address] [place] [address] Adjustment disorder with depressed mood [...] ??? COLONOSCOPY 01/12/2018 Dr. Aaron Rocha, with [facility]. Normal colon ??? UPPER GASTROINTESTINAL ENDOSCOPY [...] Return in about 2 weeks (around 02/17/2018). [facility] Documentation [facility] Flowsheet was completed/reviewed as part of today's visit. Educated patient regarding the diagnosis, medication/treatment, goals, self- management tools and instructions based on their care plan. They verbalized understanding of the education given on the After Visit Summary [AVS] for today's visit. A copy of the AVS was provided either in writing and/or via [employer]. A new medicine was prescribed during this [...] often as you can. ?? Only take bcst-kbh-[id number] or prescription medicines for pain, discomfort, or [...] 04/07/2006 Document Revised: 09/12/2016 Document Reviewed: 11/04/2013 [employer] Interactive Patient Education ?? 2017 [employer]. documented in this encounter Plan of Treatment Upcoming Encounters Date Type Department Care Team (Late st Contact Info) Description 04/24/2024 10:45 AM EST Clinical Support [facility] [address] [place] [address] documented as of this encounter Goals Goal [...] documented as of this encounter Care Teams Radio Announcer Relationship Specialty Start Date End Date Thea Rubio MD PCP - General Family Medicine 09/13/14 07/16/22 documented as of this encounter
--- OUTSIDE RECORDS SUMMARY | 2024-03-15 09:58 | XMS_ITS | Encounter Summary ---
Author Organization [place] [address] Care Team Providers Care Adjunct Instructor In Economics Name Role Phone Thea Rubio MD Primary Care Provider +1- [phone] Reason for Visit * Reason Onset Date Comments Results 04/15/2018 Encounter Details Date Type Department Care Team (Late st Contact Info) Description 04/15/2018 Telephone SEP [facility] [place] [address] [place] [address] Tiny Ortega, BENCH ASSEMBLER BATTERY [address] [place] [address] Results Social History Tobacco Use Types Packs/Day [...] Clinical Support [facility] [address] [place] [address] documented as of this encounter Goals Goal [...] documented as of this encounter Care Teams Adjunct Instructor In Economics Relationship Specialty Start Date End Date Thea Rubio MD PCP - General Family Medicine 09/13/14 07/16/22 documented as of this encounter
--- OUTSIDE RECORDS SUMMARY | 2024-03-15 09:58 | XMS_ITS | Encounter Summary ---
Author Organization [place] [address] Care Team Providers Care Scallop Raker Name Role Phone Thea Rubio MD Primary Care Provider +1- [phone] Reason for Visit * Reason Comments Medication Refill Encounter Details Date Type Department Care Team (Late st Contact Info) Description 07/18/2018 Refill SEP [facility] [place] [facility] [address] [place] [address] Myrtle Vincent APRN Medication Refill [...] Clinical Support [facility] [address] [place] [address] documented as of this encounter Goals Goal [...] documented as of this encounter Care Teams Scallop Raker Relationship Specialty Start Date End Date Thea Rubio MD PCP - General Family Medicine 09/13/14 07/16/22 documented as of this encounter
--- OUTSIDE RECORDS SUMMARY | 2024-03-15 09:58 | XMS_ITS | Encounter Summary ---
Author Organization [place] [address] Care Team Providers Care Equal Opportunity Representative Name Role Phone Thea Rubio MD Primary Care Provider +1- [phone] Reason for Visit * Reason Comments Follow-up 1 month ASD check * Consultation (Routine) - Closed Specialty Diagnoses / Procedures Referred By Contact Referred To Contact Nurse Practitioner / Cardiology Diagnoses Hospital follow up Procedures HOSPITAL PATIENT VISIT Thea Rubio MD Phone: tel: fax: Tiny Ortega, SUPERVISOR TUBING [address] [place] [address] Phone: tel: fax: Referral ID Status Reason Start Date Expiration Date Visits Re quested Visits Authorized [id number] Closed 11/19/2017 11/19/2018 1 99 Encounter Details Date Type Department Care Team (Late st Contact Info) Description 05/07/2018 2:30 PM EST Office Visit [facility] [place] [address] [place] [address] Tiny Ortega, SUPERVISOR TUBING [address] [place] [address] ASD (atrial septal defect) (Primary [...] this encounter Progress Notes * Tiny Ortega, SUPERVISOR TUBING - 05/07/2018 2:30 PM EST Chief Complaint [...] Rfl: ??? fluticasone (FLONASE) 50 mcg/actuation Nasl [place], Suspension, 1 [place] by Nasal route daily for14 days., Disp: [...] not limited to bleeding, infection, renal insufficiency, [place], stroke, and . The patient is willing [...] Clinical Support [facility] [address] [place] [address] documented as [...] 05/19/2018 3:11 PM EST us Tiny Ortega SUPERVISOR TUBING HEMATOLOGY ORDERABLES Antonia serrano Result [facility] [address] [place] , [address] [place], [place] [id number] * BASIC METABOLIC PANEL (05/19/2018 3:07 PM [...] 05/19/2018 3:11 PM EST us Tiny Ortega SUPERVISOR TUBING CHEMISTRY ORDERABLES Final Result [facility] [email or web address] 1 [facility] , [place] [address] documented in this encounter Visit Diagnoses Diagnosis [...] documented as of this encounter Care Teams Equal Opportunity Representative Relationship Specialty Start Date End Date Thea Rubio MD PCP - General Family Medicine 09/13/14 07/16/22 documented as of this encounter
--- OUTSIDE RECORDS SUMMARY | 2024-03-15 09:58 | XMS_ITS | Encounter Summary ---
Author Organization [place] [address] Care Team Providers Care Checking Department Supervisor Name Role Phone Thea Rubio MD Primary Care Provider +1- [phone] Reason for Visit * Reason Comments Contraception depo shot Encounter Details Date Type Department Care Team (Latest Contact Info) Description 05/29/2018 3:10 PM EST Clinical Support [facility] [place] [facility] [address] [place] [address] Breezy Rubio MA Encounter for [...] 04/24/2024 10:45 AM EST Clinical Support [facility] [place] [facility] [address] [place] [address] documented as of this encounter [...] documented as of this encounter Care Teams Checking Department Supervisor Relationship Specialty Start Date End Date Thea Rubio MD PCP - General Family Medicine 09/13/14 07/16/22 documented as of this encounter
--- OUTSIDE RECORDS SUMMARY | 2024-03-15 09:58 | XMS_ITS | Encounter Summary ---
Author Organization [place] [address] Care Team Providers Care Legal Billing Clerk Name Role Phone Thea Rubio MD Primary Care Provider +1- [phone] Reason for Visit * Reason Comments Rash pt has a itchy bumps on her back x 1 day Encounter Details Date Type Department Care Team (Late st Contact Info) Description 08/19/2018 3:45 PM EDT Office Visit [facility] [address] [place] [address] Dallin Chou PA-C [address] [place] [address] Hives (Primary Dx) Social History [...] ??? COLONOSCOPY 01/12/2018 Dr. Aaron Rocha, with [facility]. Normal colon ??? UPPER GASTROINTESTINAL ENDOSCOPY [...] was provided either in writing and/or via [employer]. A new medicine was not prescribed on [...] at home: Medicines ?? Take or apply afln-smb-faoeifm and prescription medicines only as told by [...] 04/07/2006 Document Revised: 09/04/2016 Document Reviewed: 01/24/2016 [employer] Interactive Patient Education ?? 2019 [employer]. documented in this encounter Plan of Treatment Upcoming Encounters Date Type Department Care Team (Late st Contact Info) Description 04/24/2024 10:45 AM EST Clinical Support [facility] [place] [facility] [address] [place] [address] documented as of [...] documented as of this encounter Care Teams Legal Billing Clerk Relationship Specialty Start Date End Date Thea Rubio MD PCP - General Family Medicine 09/13/14 07/16/22 documented as of this encounter
--- OUTSIDE RECORDS SUMMARY | 2024-03-15 09:58 | XMS_ITS | Encounter Summary ---
Author Organization [place] [address] Care Team Providers Care Director Business Systems Name Role Phone Thea Rubio MD Primary Care Provider +1- [phone] Reason for Visit * Reason Comments Exposure to STD Encounter Details Date Type Department Care Team (Late st Contact Info) Description 04/15/2018 10:15 AM EST Office Visit [facility] [address] [address] [address] [place] [address] Gary White, DO [address] [place] [address] Possible exposure to STD (Primary Dx); Vaginal [...] Procedure Abnormality Status --------- ------ CHLAMYDIA/GC BY TMA[[id number]] Please view results for these tests on the individual orders. CHLAMYDIA/GC Narrative The following orders were created for panel order CHLAMYDIA/GC. Procedure Abnormality Status --------- ------ CHLAMYDIA/GC BY TMA[[id number]] In process Please view results for these [...] today's visit. This chart was completed using [employer] voice recognition technology and may contain unintended [...] 07/04/2009 Document Revised: 09/12/2016 Document Reviewed: 09/17/2012 [employer] Interactive Patient Education ?? 2017 [employer]. Patient Education Sexually Transmitted Disease A sexually [...] 06/28/2003 Document Revised: 10/25/2016 Document Reviewed: 10/26/2013 Else[employer] Interactive Patient Education ?? 2018 [employer] documented in this encounter Plan of Treatment Upcoming Encounters Date Type Department Care Team (Late st Contact Info) Description 04/24/2024 10:45 AM EST Clinical Support [facility] [address] [place] [address] documented as of this encounter Goals Goal [...] 04/15/2018 3:42 PM EST [facility] Hep B Core IgM Non-Reacti ve Non-Reacti ve 04/15/2018 3:42 PM EST [facility] Hep A IgM Non-Reacti ve Non-Reacti ve 04/15/2018 3:42 PM EST [facility] Hep C Ab Non-Reacti ve Non-Reacti ve 04/15/2018 3:42 PM EST [facility] Blood VENOUS BLOOD / Unknown Venipuncture / Unknown 04/15/2018 11:31 AM EST 04/15/2018 11:31 AM EST us Gary White DO CHEMISTRY ORDERABLES Final Res ult Performing Organization Address [facility] de Phone Number [facility] [address] [facility] , [place] [address] * SYPHILIS SCREEN WITH REFLEX RPR QUANT (04/15/2018 11:31 AM EST) Trep Ab Index 0.07 <=0.99 Index Value 04/15/2018 3:39 PM EST [facility] Comment: < 1.00 - Negative ?? >=1.00 - Positive NOTE: ??All positive results will be reflexed to Quantitative Non-Treponemal(RPR)test. ?? Blood VENOUS BLOOD / Unknown Venipuncture / Unknown 04/15/2018 11:31 AM EST 04/15/2018 11:31 AM EST us Gary White DO CHEMISTRY ORDERABLES Final Res ult Performing Organization Address [facility] de Phone Number [facility] [address] [facility] , [place] [address] * HIV AG/AB (04/15/2018 11:31 AM EST) HIV Ag/AB Non-Reacti ve Non-Reactive, See Footnote 04/15/2018 3:42 PM EST [employer] [facility] Blood VENOUS BLOOD / Unknown Venipuncture / Unknown 04/15/2018 11:31 AM EST 04/15/2018 11:31 AM EST us Gary White DO IMMUNOLOGY ORDERABLES Final Re sult Performing Organization Address City/[facility] Co de Phone Number [facility] [employer] [address] [facility] , [place] [address] * CHLAMYDIA/GC BY TMA (04/15/2018 11:17 AM EST) Chlamydia trachomatis Not Detected Not Detected 04/16/2018 2:17 AM EST [facility], [facility] Neisseria gonorrhoeae Not Detected Not Detected 04/16/2018 2:17 AM EST [facility] Swab SPECIMEN FROM UTERINE CERVIX / Unknown 04/15/2018 11:17 AM EST 04/15/2018 11:17 AM EST Narrative PREFERRED [facility] - 04/16/2018 2:17 AM EST Testing methodology is hhas mediated amplification (TMA) using the Aptima Combo 2 assay from [employer]. A negative result does not completely rule [...] characteristics of this test were validated by [facility] laboratory. This assay is FDA cleared to test the following specimens: clinician-collected endocervical, vaginal and male urethral swab specimens, patient collected vaginal specimens within a clinic setting, Thin Prep Specimens in PreservCyt Solution, and first-stream, unpreserved male urine specimens. Testing on female urine is not FDA approved by this methodology, but has been developed and validated by the [facility] laboratory.?? Detailed methodology is available upon request. Gary White DO MICROBIOLOGY - GENERAL ORDERAB LES Final Result PREFERRED [facility] [address] [facility] , [place] [address] * (ABNORMAL) VAGINAL PANEL (04/15/2018 11:17 AM EST) Pathologist [facility] Brenda Species DNA probe Negative Negative 04/16/2018 9:36 PM EST [facility] Comment: Performed by [employer], [address] [place] [id number] www.[email or web address], Vinayak Barrera MD, Lab. Director Gardnerella Vaginalis DNAprobe Positive(A) Negative 04/16/2018 9:36 PM EST [facility] Trichomonas Vaginalis DNA probe Negative Negative 04/16/2018 9:36 PM EST [facility] Comment: INTERPRETIVE DATA: Vaginal Pathogen Panel by DNA Probe All test results should be correlated with clinical history. Swab SPECIMEN FROM VAGINA / Unknown 04/15/2018 11:17 AM EST 04/15/2018 11:17 AM EST Gary White DO MICROBIOLOGY - GENERAL ORDERAB LES Final Result Performing Organization Address City/[facility]/ZIP Co de Phone Number [facility] [employer] [address] [place] [address] * TRICHOMONAS VAGINALIS BY TMA (04/15/2018 10:31 AM EST) Trichomonas vaginalis by TMA Not Detected Not Detected 04/16/2018 3:41 AM EST [facility] Urine 04/15/2018 10:3 1 AM EST 04/15/2018 10:31 AM EST Narrative [facility] - 04/16/2018 3:41 AM EST Test methodology is hhas mediated amplification (TMA) using the Aptima Trichomonas vaginalis assay from [employer]. A negative result does not completely rule [...] characteristics of this test were validated by [facility]. ??This assay is FDA cleared to test the following specimens: ??clinician-collected endocervical and vaginal swab specimens, and clinician collected gynecological specimens collected in PreservCyt Solution. ??Testing on first catch male and female urine is not FDA approved by this methodology, but has been developed and validated by the [facility]. ??Detailed methodology is available upon request. us Gary White DO MICROBIOLOGY - GENERAL ORDERAB LES Final Result Performing Organization Address City/[facility]/ZIP Co de Phone Number [facility] [address] [facility] , [place] [address] documented in this encounter Visit Diagnoses Diagnosis [...] as of this encounter Care Teams Director Business Systems Relationship Specialty Start Date End Date Thea Rubio MD PCP - General Family Medicine 09/13/14 07/16/22 documented as of this encounter
--- OUTSIDE RECORDS SUMMARY | 2024-03-15 09:58 | XMS_ITS | Encounter Summary ---
Author Organization [place] [address] Care Team Providers Care Trap Operator Name Role Phone Thea Rubio MD Primary Care Provider +1- [phone] Reason for Visit * Reason Onset Date Comments ED Follow-Up Call 04/15/2018 Encounter Details Date Type Department Care Team (Late st Contact Info) Description 04/15/2018 Patient Outreach [facility] [address] Appointment [place] [address] Laxmi Pate BS, COS ED Follow-Up Call [...] aware that we always have a provider conveyor installer and offer eVisits?: No Are you aware of the [facility] or [facility]?: No Was there anything more that we [...] available until 05/2018 please call pt to [facility] sooner if possible ) It [...] Clinical Support [facility] [address] [place] [address] documented as of this encounter Goals Goal [...] documented as of this encounter Care Teams Trap Operator Relationship Specialty Start Date End Date Thea Rubio MD PCP - General Family Medicine 09/13/14 07/16/22 documented as of this encounter
--- OUTSIDE RECORDS SUMMARY | 2024-03-15 09:58 | XMS_ITS | Encounter Summary ---
Author Organization [place] [address] Care Team Providers Care Wind Plant Manager Name Role Phone Thea Rubio MD Primary Care Provider +1- [phone] Reason for Visit * Reason Comments Follow-up depression f/u Encounter Details Date Type Department Care Team (Late st Contact Info) Description 03/03/2018 3:00 PM EST [facility] [address] [place] [address] Dallin Chou PA-C [address] [place] [address] Adjustment disorder with depressed mood [...] ??? COLONOSCOPY 01/12/2018 Dr. Aaron Rocha, with [facility]. Normal colon ??? UPPER GASTROINTESTINAL ENDOSCOPY 12/04/2017 [...] about 3 months (around 06/03/2018). [facility] Flow[facility] was completed/reviewed as part of today's visit. Educated patient regarding the diagnosis, medication/treatment, goals, self- management tools and instructions based on their care plan. They verbalized understanding of the education given on the After Visit Summary [AVS] for today's visit. A copy of the AVS was provided either in writing and/or via IFTTT. A new medicine was not prescribed on [...] health care provider. General instructions ?? Take lgij-ncj-ggstvge and prescription medicines only as told by [...] important. Where to find more information: National Simpson on Mental Illness ?? www.joseph.org U.S. National [place] of Mental Health ?? www.nimh.nih.gov National Suicide Prevention Lifeline ?? 7-477-014-TALK (2351). This is free, 24-hour help. Contact a [...] 10/16/2016 Elsevier Interactive Patient Education ?? 2018 [employer]. documented in this encounter Plan of Treatment Upcoming Encounters Date Type Department Care Team (Late st Contact Info) Description 04/24/2024 10:45 AM EST Clinical Support [facility] [address] [place] [address] documented as of this encounter [...] documented as of this encounter Care Teams Wind Plant Manager Relationship Specialty Start Date End Date Thea Rubio MD PCP - General Family Medicine 09/13/14 07/16/22 documented as of this encounter
--- OUTSIDE RECORDS SUMMARY | 2024-03-15 09:58 | XMS_ITS | Encounter Summary ---
Author Organization [place] [address] Care Team Providers Care Woven Blind Loom Tender Name Role Phone Thea Rubio MD Primary Care Provider +1- [phone] Encounter Details Date Type Department Care Team (Latest Contact Info) Description 04/15/2018 11:31 AM EST - 04/15/2018 11:59 PM EST Hospital Encounter [facility] [address] [place], [place] [id number] Possible exposure to STD; Anemia, unspecified type; [...] Clinical Support [facility] [address] [place] [address] documented as of this encounter [...] <=230 ng/mL D-DU 04/15/2018 2:30 PM EST [facility] Comment: This test has been clinically validated by the street light lamp cleaner and approved by the FDA for exclusion [...] Anne MD HEMATOLOGY ORDERABLES F inal Result [facility] [address] [facility] , [place] [address] * IRON/UIBC (04/15/2018 11:33 AM [...] Result [facility] [address] [facility] , [place] [address] * CBC WITH DIFF (04/15/2018 [...] 04/15/2018 2:47 PM EST [facility], [facility] Comment:Neutrophils equals s egs plus bands Imm Gran% 0.4 % 04/15/2018 2:47 PM EST [facility] Comment:Automated count of m etamyelocytes, myelocytes and promyelocytes. Lymph Percent 17.7 % 04/15/2018 2:47 PM EST [facility] Cloud Percent 6.0 % 04/15/2018 2:47 PM EST [facility] Eos Percent 4.8 % 04/15/2018 2:47 PM EST [facility] Baso Percent 0.3 % 04/15/2018 2:47 PM EST [facility] Neut # 5.3 1.6 - 6.1 x10(3)/[facility] 04/15/2018 2:47 PM EST [facility] Comment:Neutrophils equals s egs plus bands IMMGRAN# 0.0 0.0 - 0.1 x10(3)/[facility] 04/15/2018 2:47 PM EST [facility] Comment:Automated count of m etamyelocytes, myelocytes and promyelocytes. An absolute IG <0.1 is reported as 0.0. Lymph # 1.3 1.2 - 3.9 x10(3)/[facility] 04/15/2018 2:47 PM EST [facility] Cloud # 0.5 0.3 - 0.9 x10(3)/[facility] 04/15/2018 2:47 PM EST [facility] Eos# 0.4 0.0 - 0.5 x10(3)/[facility] 04/15/2018 2:47 PM EST [facility] Baso # 0.0 0.0 - 0.1 x10(3)/[facility] 04/15/2018 2:47 PM EST [facility] Blood Venipuncture / Unknown 04/15/2018 11:33 AM EST 04/15/2018 11:33 AM EST us Thea Rubio MD HEMATOLOGY ORDERABLES Antonia l Result [facility], [address] , [place] [address] * VITAMIN B12 LEVEL (04/15/2018 11:33 AM EST) [facility] Vitamin B12 440 211 - 946 pg/mL 04/15/2018 3:15 PM EST [facility] Blood Venipuncture / Unknown 04/15/2018 11:33 AM EST 04/15/2018 11:33 AM EST Narrative [facility] - 04/15/2018 3:15 PM EST Ingestion of abimael doses of biotin (>5 mg/day) taken within 8 hours of drawing blood sample can interfere with this immunoassay test. us Thea Rubio MD CHEMISTRY ORDERABLES Final Result Performing Organization Address [facility] Phone Number [facility] , [place] [address] * ACUTE HEPATITIS PANEL (04/15/2018 11:31 AM EST) [facility] Hep Bs Ag Non-Reacti ve Non-Reacti ve 04/15/2018 3:42 PM EST [facility] Hep B Core IgM Non-Reacti ve Non-Reacti ve 04/15/2018 3:42 PM EST [facility] Hep A IgM Non-Reacti ve Non-Reacti ve 04/15/2018 3:42 PM EST [facility] Hep C Ab Non-Reacti ve Non-Reacti ve 04/15/2018 3:42 PM EST [facility] Blood VENOUS BLOOD / Unknown Venipuncture / Unknown 04/15/2018 11:31 AM EST 04/15/2018 11:31 AM EST us Gary White DO CHEMISTRY ORDERABLES Final Res ult Performing Organization Address [facility] Co de Phone Number [facility] [address] [facility] , [place] [address] * SYPHILIS SCREEN WITH REFLEX RPR QUANT (04/15/2018 11:31 AM EST) [facility] Trep Ab Index 0.07 <=0.99 Index Value 04/15/2018 3:39 PM EST [facility] Comment: < 1.00 - Negative ?? >=1.00 - Positive NOTE: ??All positive results will be reflexed to Quantitative Non-Treponemal(RPR)test. ?? Blood VENOUS BLOOD / Unknown Venipuncture / Unknown 04/15/2018 11:31 AM EST 04/15/2018 11:31 AM EST us Gary White DO CHEMISTRY ORDERABLES Final Res ult Performing Organization Address [facility]/ZIP Co de Phone Number [facility] [address] [facility] , [place] [address] * HIV AG/AB (04/15/2018 11:31 AM EST) [facility] HIV Ag/AB Non-Reacti ve Non-Reactive, See Footnote 04/15/2018 3:42 PM EST [facility] Blood VENOUS BLOOD / Unknown Venipuncture / Unknown 04/15/2018 11:31 AM EST 04/15/2018 11:31 AM EST [employer] Gary White DO IMMUNOLOGY ORDERABLES Final Re sult Performing Organization Address [facility] Co de Phone Number [facility] [employer] [facility] [address] [facility] , [place] [address] documented in this encounter Visit Diagnoses Diagnosis [...] documented as of this encounter Care Teams Woven Blind Loom Tender Relationship Specialty Start Date End Date Thea Rubio MD PCP - General Family Medicine 09/13/14 07/16/22 documented as of this encounter
--- OUTSIDE RECORDS SUMMARY | 2024-03-15 09:58 | XMS_ITS | Encounter Summary ---
Author Organization [place] [address] Care Team Providers Care Personal Secretary Name Role Phone Thea Rubio MD Primary Care Provider +1- [phone] Reason for Visit * Reason Comments Nasal Congestion couple days Encounter Details Date Type Department Care Team (Late st Contact Info) Description 05/01/2018 2:15 PM EST [facility] Visit [facility] [address] [address] [address] [place] [address] Oma Palomo APRN [address] [place] [address] Acute rhinitis (Primary Dx) Social History Tobacco [...] End Date fluticasone (FLONASE) 50 mcg/actuation Nasl Put[place], SuspensionIndicatio ns:Acute rhinitis 1 [place] by Nasal route daily for 14 days. [...] ??? COLONOSCOPY 01/12/2018 Dr. [facility]. Normal colon ??? UPPER [...] daily. - fluticasone (FLONASE) 50 mcg/actuation Nasl Putney, Suspension; 1 [place]ney by Nasal route daily for 14 days. [...] Parkinson disease. ?? Aspirin and NSAIDs. ?? Pipx-cpb-zzjghcu nasal decongestant sprays. These can cause a [...] instructions at home: ?? Take or use nokp-oec-vijqtxz and prescription medicines only as told by [...] 07/29/2016 Document Revised: 09/12/2016 Document Reviewed: 06/27/2016 [employer] Interactive Patient Education ?? 2018 [employer] Keep yourself hydrated with plenty of [...] 04/24/2024 10:45 AM EST Clinical Support [facility] [address] [place] [address] documented as of this encounter Goals Goal [...] as of this encounter Care Teams Personal Secretary Relationship Specialty Start Date End Date Thea Rubio MD PCP - General Family Medicine 09/13/14 07/16/22 documented as of this encounter
--- OUTSIDE RECORDS SUMMARY | 2024-03-15 09:58 | XMS_ITS | Encounter Summary ---
Author Organization [place] [address] Care Team Providers Care Home Health Rn Name Role Phone Thea Rubio MD Primary Care Provider +1- [phone] Reason for Visit * Reason Comments Medication Refill Encounter Details Date Type Department Care Team (Late st Contact Info) Description 06/13/2018 Refill [facility] [address] [place] [address] Dallin Chou PA-C [address] [place] [address] Medication Refill Social History Tobacco Use Types [...] 04/24/2024 10:45 AM EST Clinical Support [facility] [address] [place] [address] documented as of this encounter Goals Goal [...] as of this encounter Care Teams Home Health Rn Relationship Specialty Start Date End Date Thea Rubio MD PCP - General Family Medicine 09/13/14 07/16/22 documented as of this encounter
--- OUTSIDE RECORDS SUMMARY | 2024-03-15 09:58 | XMS_ITS | Encounter Summary ---
Author Organization [place] [address] Care Team Providers Care Cap Sewer Name Role Phone Thea Rubio MD Primary Care Provider +1- [phone] Reason for Visit * Reason Onset Date Comments Appointment Needed 04/24/2018 Canceled 04/27 Encounter Details Date Type Department Care Team (Late st Contact Info) Description 04/24/2018 Telephone [facility] [place] [address] [place] [phone] Tiny Ortega, RETAIL MANAGER IN TRAINING [address] [place] [address] Appointment Needed (Canceled 04/27) Social History Tobacco [...] Clinical Support [facility] [address] [place] [address] documented as of this encounter Goals Goal [...] documented as of this encounter Care Teams Cap Sewer Relationship Specialty Start Date End Date Thea Rubio MD PCP - General Family Medicine 09/13/14 07/16/22 documented as of this encounter
--- OUTSIDE RECORDS SUMMARY | 2024-03-15 09:58 | XMS_ITS | Encounter Summary ---
Author Organization [place] [address] Care Team Providers Care Ad Setter Name Role Phone Thea Rubio MD Primary Care Provider +1- [phone] Reason for Visit * Reason Onset Date Comments Reschedule 08/10/2018 Encounter Details Date Type Department Care Team (Late st Contact Info) Description 08/10/2018 Telephone [facility] [place] [address] [place] [address] Migue Anne MD [address] [place] [address] Reschedule Social History Tobacco Use Types Packs/Day [...] [facility] [address] [place] [address] documented as of this encounter Goals Goal [...] documented as of this encounter Care Teams Ad Setter Relationship Specialty Start Date End Date Thea Rubio MD PCP - General Family Medicine 09/13/14 07/16/22 documented as of this encounter
--- OUTSIDE RECORDS SUMMARY | 2024-03-15 09:58 | XMS_ITS | Encounter Summary ---
Author Organization [place] [address] Care Team Providers Care Document Control Specialist Name Role Phone Thea Rubio MD Primary Care Provider +1- [phone] Reason for Visit * Auth/Cert/Inpt Specialty Diagnoses / Procedures Referred By Contac t Referred To Contact Diagnoses Chest pain due to myocardial ischemia, unspecified ischemic chest pain type Chest pain due to myocardial ischemia, unspecified ischemic chest pain type [I25.9] Procedures SD CATH PLMT L HRT & ARTS W/NJX & ANGIO IMG S&I CORONARY ANGIOGRAM / CARDIAC CATHETERIZATION Referral ID Status Reason Start Date Expiration Date Visits Re quested Visits Authorized [id number] 1 1 Encounter Details Date Type Department Care Team (Late st Contact Info) Description 05/25/2018 8:00 AM EST - 05/25/2018 9:00 AM EST Surgery [facility] DICER MACHINE OPERATOR [facility] [place] [address] Migue Anne MD [address] [place] [address] [place] [address] CORONARY ANGIOGRAM / CARDIAC CATHETERIZATION Surgery Details Date/Time Status Location OR Service Patient Class Case Class Case Type Trauma Case? 05/25/2018 8:00 AM Posted [facility] CARDIAC DICER MACHINE OPERATOR IMAGING [facility] CCL 2 Cardiac Same Day [...] are extended to you on behalf of [facility] as you are discharged. Because [...] sent through Care Everywhere. * Amlodipine tablets (Qatari) documented in this encounter Ordered Prescriptions Prescription Sig Dispense Quantity Refills Last Filled Start Date End Date amLODIPine (NORVASC) 2.5 mg Oral Tablet Take 1 Tab by mouth daily. 30 Tab 2 05/25/2018 08/26/2018 documented in this encounter Discharge Disposition Disposition Code Departure Means Destination Home or Self Senior Care documented in this encounter H&P Notes * Migue Anne MD - 05/25/2018 8:11 AM EST PHYSICIAN IMMEDIATE PRE-PROCEDURE UPDATE H&P and SEDATION ASSESSMENT Risks, benefits, potential complications and alternatives have been discussed with patient and/or patient's legal authorized claims representative. HISTORY AND PHYSICAL H&P is less [...] fauces visible) Cath PCI Bleeding Risk Score Community Education Specialist; <=25 mild, 26-65 mod, >65 high = : 40 Height: 5' 5.5 (166.4 cm) Weight: 135 lb 5 oz (61.4 kg) BMI (Calculated): 22.2 Comment: Allergies Allergen Reactions ??? Latex Rash ??? Latex, Natural Rubber Rash ??? Morphine Nausea And Vomiting ??? Metronidazole Rash Source Note - Tiny Ortega, CONVERTING SUPERVISOR - 05/07/2018 2:30 PM EST Chief Complaint [...] Rfl: ??? fluticasone (FLONASE) 50 mcg/actuation Nasl [place], Suspension, 1 [place] by Nasal route daily for14 days., Disp: [...] not limited to bleeding, infection, renal insufficiency, [place], stroke, and . The patient is willing [...] EST Clinical Support [facility] [address] [place] [address] documented as of this encounter Goals Goal Patient Goal Type Associated Problems Recent Progress Patient-Stated? Author Maintain a healthy diet, exercise regularly and maintain an ideal body weight General No Thea Rubio MD Stay Tobacco Free Lifestyle No hTea Rubio MD documented as of this encounter [...] myocardial ischemia, unspecified ischemic chest pain type DICER MACHINE OPERATOR HEMODYNAMIC WAVEFORMS Routine 05/25/2018 7:51 AM EST [...] CATH ORDERABLES Final Result Performing Organization Address [facility] de Phone Number [facility] * DICER MACHINE OPERATOR HEMODYNAMIC WAVEFORMS (05/25/2018 7:51 AM EST) 05/25/2018 7:51 AM EST Migue Anne MD CARDIAC CATH ORDERABLES Final Result Performing Organization Address [facility] de Phone Number [facility] [address] [place] [address] * POCT URINE (05/25/2018 7:42 AM EST) Preg Test, Ur NEG POS/NEG [facility] Lot Number [id number] [facility] Expiration Date 08/19/2019 [facility] SeriAl # [facility] Control Line Yes YES/NO [facility] 05/25/2018 7:42 AM EST Migue Anne MD POINT OF CARE TEST ORDE LORY Final Result Performing Organization Address [facility] de Phone Number [facility] [address] [place] [address] documented in this encounter Visit Diagnoses Diagnosis [...] documented as of this encounter Care Teams Document Control Specialist Relationship Specialty Start Date End Date Thea Rubio MD PCP - General Family Medicine 09/13/14 07/16/22 documented as of this encounter
--- OUTSIDE RECORDS SUMMARY | 2024-03-15 09:58 | XMS_ITS | Encounter Summary ---
Author Organization [place] [address] Care Team Providers Care Operations Tech Name Role Phone Thea Rubio MD Primary Care Provider +1- [phone] Encounter Details Date Type Department Care Team (Latest Contact Info) Description 03/05/2018 2:53 PM EST - 03/05/2018 11:59 PM EST Hospital Encounter [facility] [id number] [place], [facility] One Amenorrhea Discharge [...] EST Clinical Support [facility] [address] [place] [address] documented as of this encounter [...] QUAL Negative 03/05/2018 6:21 PM EST PREFERRED [facility] Blood VENOUS BLOOD / Unknown Venipuncture / Unknown 03/05/2018 2:54 PM EST 03/05/2018 2:54 PM EST Narrative [facility]REFERRED [facility] - 03/05/2018 6:21 PM EST Ingestion of abimael doses of biotin (>5 mg/day) taken within 8 hours of drawing blood sample can interfere with this immunoassay test. us Thea Rubio MD CHEMISTRY ORDERABLES Final Result PREFERRED [facility] [address] [facility] , [place] [address] documented in this encounter Visit Diagnoses Diagnosis Amenorrhea Absence of menstruation documented in this encounter Additional Health Concerns Assessment Noted Time PHQ-9 Depression Total Score: 2 10/07/19 18 8:00 AM EDT PHQ-2 Depression Total Score: 2 10/07/19 18 8:00 AM EDT documented as of this encounter Care Teams Operations Tech Relationship Specialty Start Date End Date Thea Rubio MD PCP - General Family Medicine 09/13/14 07/16/22 documented as of this encounter
--- OUTSIDE RECORDS SUMMARY | 2024-03-15 09:58 | XMS_ITS | Encounter Summary ---
Author Organization [place] [address] Care Team Providers Care Wallpaper Inspector Name Role Phone Thea Rubio MD Primary Care Provider +1- [phone] Encounter Details Date Type Department Care Team (Late st Contact Info) Description 04/17/2018 Orders Only [facility] [address] [address] [address] [place] [address] Eileen Pfeiffer ARNP [address] [address] BV (bacterial vaginosis) (Primary Dx) Social History [...] 04/24/2024 10:45 AM EST Clinical Support [facility] [address] [place] [address] documented as of this encounter [...] documented as of this encounter Care Teams Wallpaper Inspector Relationship Specialty Start Date End Date Thea Rubio MD PCP - General Family Medicine 09/13/14 07/16/22 documented as of this encounter
--- OUTSIDE RECORDS SUMMARY | 2024-03-15 09:58 | XMS_ITS | Encounter Summary ---
Author Organization [place] [address] Care Team Providers Care Cement Truck Driver Name Role Phone Thea Rubio MD Primary Care Provider +1- [phone] Reason for Visit * Reason Comments Abdominal Pain lt. upper abdomen, t hinks it's from her liver Encounter Details Date Type Department Care Team (Late Contact Info) Description 04/14/2018 7:31 PM EST - 04/14/2018 9:18 PM EST Emergency [facility] [address] [facility] [place] [address] Anderson Chery MD [address] [place] [phone] Epigastric abdominal pain (Primary Dx) Discharge [...] through Care Everywhere. * Abdominal Pain Adult Sjac-rc-Wztu (Tajik) documented in this encounter Ordered Prescriptions Prescription [...] ??? COLONOSCOPY 01/12/2018 Dr. Aaron Rocha, with [facility]. Normal colon ??? UPPER GASTROINTESTINAL ENDOSCOPY 12/04/2017 [...] Percent 57.5 % Lymph Percent 29.8 % Troup Percent 7.9 % Eos Percent 4.4 % Baso Percent 0.4 % Neut # 4.0 1.8 - 7.7 x10(3)/mcL Lymph # 2.1 0.6 - 4.8 x10(3)/mcL Troup # 0.5 0.0 - 1.3 x10(3)/mcL Eos# [...] This patient was seen in coordination with PA/ENGINEERING TECHNOLOGY INSTRUCTOR. This chart was completed using voice recognition technology and may contain unintended errors documented in this encounter Plan of Treatment Upcoming Encounters Date Type Department Care Team (Late st Contact Info) Description 04/24/2024 10:45 AM EST Clinical Support [facility] [address] [place] [address] documented as of this encounter [...] HCG QUAL Negative 04/14/2018 9:01 PM EST [facility] Blood VENOUS BLOOD / Unknown Venipuncture / Unknown 04/14/2018 8:25 PM EST 04/14/2018 8:29 PM EST Narrative [facility] - 04/14/2018 9:01 PM EST Ingestion of abimael doses of biotin (>5 mg/day) taken within 8 hours of drawing blood sample can interfere with this immunoassay test. Anderson Chery MD CHEMISTRY ORDERABLES Final Re sult Performing Organization Address [facility] Co de Phone Number [facility] [address] [place] [address] * EXTRA ADAME URINE CX (04/14/2018 8:25 PM EST) Urine URINE SPECIMEN COLLECTION, CLEAN CATCH / Unknown 04/14/2018 8:25 PM EST 04/14/2018 8:29 PM EST Anderson Chery MD MICROBIOLOGY - GENERAL ORDERA BLES Final Result Performing Organization Address [facility] Co de Phone Number [facility] [address] [place] [address] * (ABNORMAL) URINALYSIS (04/14/2018 8:25 PM EST) UA Color Yellow 04/14/2018 8:43 PM EST [facility] UA Appear Clear Clear 04/14/2018 8:43 PM EST [facility] UA Glucose Negative Negative mg/dL 04/14/2018 8:43 PM EST [facility] UA Ketones Trace (5 mg/dL)(A) Negative mg/dL 04/14/2018 8:43 PM EST [facility] UA Blood Trace-Intac t(A) Negative 04/14/2018 8:43 PM EST [facility] UA pH 6.5 5.0 - 8.0 pH 04/14/2018 8:43 PM EST [facility] UA Protein Negative Negative mg/dL 04/14/2018 8:43 PM EST [facility] UA Urobilinogen 1.0 <=1 mg/dL 8 8:43 PM EST [facility] UA Bili Negative Negative 04/14/2018 8:43 PM EST [facility] UA Nitrite Negative Negative 04/14/2018 8:43 PM EST [facility] UA Leuk Est Negative Negative 04/14/2018 8:43 PM EST [facility] UA Spec Grav 1.020 1.001 - 1.035 no units 04/14/2018 8:43 PM EST [facility] Comment: Reference range valid for random specimens only. UA WBC 5(H) 0 - 4 /HPF 04/14/2018 8:43 PM EST [facility] UA RBC 1 0 - 3 /HPF 04/14/2018 8:43 PM EST [facility] UA Squam Epi Rare /LPF 04/14/2018 8:43 PM EST [facility] UA Mucus 2+ /LPF 04/14/2018 8:43 PM EST [facility] Urine URINE SPECIMEN COLLECTION, CLEAN CATCH / Unknown 04/14/2018 8:25 PM EST 04/14/2018 8:29 PM EST us Anderson Chery MD URINE ORDERABLES Final Result Performing Organization Address [facility]/ZIP Co de Phone Number [facility] [address] [place] [address] * LIPASE LEVEL (04/14/2018 8:25 PM EST) Lipase Lvl 24 13 - 60 IU/L 04/14/2018 8:48 PM EST [facility] Blood VENOUS BLOOD / Unknown Venipuncture / Unknown 04/14/2018 8:25 PM EST 04/14/2018 8:29 PM EST us Anderson Chery MD CHEMISTRY ORDERABLES Final Re sult Performing Organization Address [facility]/ZIP Co de Phone Number [facility] [address] [place] [address] * (ABNORMAL) COMPREHENSIVE METABOLIC PANEL (04/14/2018 8:25 PM EST) Sodium 141 136 - 145 mmol/L 04/14/2018 8:48 PM EST [facility] Potassium 4.0 3.5 - 5.0 mmol/L 04/14/2018 8:48 PM EST [facility] Chloride 108(H) 98 - 107 mmol/L 04/14/2018 8:48 PM EST [facility] Total CO2 25 22 - 29 mmol/L 04/14/2018 8:48 PM [facility] Anion Gap 8 7 - 16 mmol/L 04/14/2018 8:48 PM [facility] Calcium 8.9 8.6 - 10.2 mg/dL 04/14/2018 8:48 PM [facility] Glucose Lvl 95 74 - 100 mg/dL 04/14/2018 8:48 PM [facility] BUN 8 6 - 20 mg/dL 04/14/2018 8:48 PM [facility] Creatinine 0.89 0.51 - 1.30 mg/dL 04/14/2018 8:48 PM [facility] Albumin 3.7 3.5 - 5.2 gm/dL 04/14/2018 8:48 PM [facility] Total Protein 6.6 6.4 - 8.3 gm/dL 04/14/2018 8:48 PM [facility] Bili Total 0.1 0.1 - 1.3 mg/dL 04/14/2018 8:48 PM [facility] ALT 11 <=41 IU/L 04/14/2018 8:48 PM [facility] AST 15 <=40 IU/L 04/14/2018 8:48 PM [facility] Alk Phos 54 35 - 104 IU/L 04/14/2018 8:48 PM [facility] GFR Afr Am 96 >=60 mL/min/1.7 3 m2 04/14/2018 8:48 PM [facility] GFR Non Afr Am 84 >=60 mL/min/1.7 3 m2 04/14/2018 8:48 PM [facility] Comment: This estimated GFR was calculated [...] Chery MD CHEMISTRY ORDERABLES Final Re sult [facility] [address] [place], [place] [address] * CBC WITH DIFF (04/14/2018 8:25 PM EST) WBC 6.9 4.0 - 11.0 x10(3)/mcL 04/14/2018 8:32 PM EST [facility] RBC 4.45 3.80 - 5.10 x10(6)/mcL 04/14/2018 8:32 PM EST [facility] Hgb 12.4 12.0 - 15.6 g/dL 04/14/2018 8:32 PM EST [facility] Hct 37.8 35.7 - 45.9 % 04/14/2018 8:32 PM EST [facility] MCV 85.1 82.5 - 99.8 fL 04/14/2018 8:32 PM EST [facility] MCH 27.9 27.0 - 34.3 pg 04/14/2018 8:32 PM EST [facility] MCHC 32.8 32.1 - 35.3 g/dL 04/14/2018 8:32 PM EST [facility] RDW 14.2 11.5 - 15.0 % 04/14/2018 8:32 PM EST [facility] Platelet 304 144 - 423 x10(3)/mcL 04/14/2018 8:32 PM EST [facility] MPV 8.2 6.8 - 10.8 fL 04/14/2018 8:32 PM EST [facility] Neut Percent 57.5 % 04/14/2018 8:32 PM EST [facility] Lymph Percent 29.8 % 04/14/2018 8:32 PM EST [facility] Troup Percent 7.9 % 04/14/2018 8:32 PM EST [facility] Eos Percent 4.4 % 04/14/2018 8:32 PM EST [facility] Baso Percent 0.4 % 04/14/2018 8:32 PM EST [facility] Neut # 4.0 1.8 - 7.7 x10(3)/[facility] 04/14/2018 8:32 PM EST [facility] Lymph # 2.1 0.6 - 4.8 x10(3)/[facility] 04/14/2018 8:32 PM EST [facility] Troup # 0.5 0.0 - 1.3 x10(3)/[facility] 04/14/2018 8:32 PM EST [facility] Eos# 0.3 0.0 - 0.5 x10(3)/[facility] 04/14/2018 8:32 PM EST [facility] Baso # 0.0 0.0 - 0.2 x10(3)/[facility] 04/14/2018 8:32 PM EST [facility] Blood VENOUS BLOOD / Unknown Venipuncture / Unknown 04/14/2018 8:25 PM EST 04/14/2018 8:29 PM EST us Anderson Chery MD HEMATOLOGY ORDERABLES Final R esult Performing Organization Address City/State/[facility] Co de Phone Number [facility] [address] [place] [address] documented in this encounter Visit Diagnoses Diagnosis Epigastric abdominal pain- Primary Abdominal pain, epigastric documented in this encounter Additional Health Concerns Assessment Noted Time PHQ-9 Depression Total Score: 2 10/07/19 18 8:00 AM EDT PHQ-2 Depression Total Score: 2 10/07/19 18 8:00 AM EDT documented as of this encounter Care Teams Cement Truck Driver Relationship Specialty Start Date End Date Thea Rubio MD PCP - General Family Medicine 09/13/14 07/16/22 documented as of this encounter
--- OUTSIDE RECORDS SUMMARY | 2024-03-15 09:58 | XMS_ITS | Encounter Summary ---
Author Organization [place] [address] Care Team Providers Care Litigation Docket Manager Name Role Phone Thea Rubio MD Primary Care Provider +1- [phone] Encounter Details Date Type Department Care Team (Latest Contact Info) Description 07/16/2018 3:45 PM EDT - 07/16/2018 11:59 PM EDT Hospital Encounter [facility] [address] [place], [place] [id number] Cervical segment dysfunction; Somatic dysfunction of lumbar [...] Clinical Support [facility] [address] [place] [address] documented as of this encounter [...] HISTORY: ??M99.03-Segmental and somatic dysfunction of lumbar [id number]-CM COMPARISON: ??06/13/2012. PROCEDURE COMMENTS: 3 views lumbar [...] HISTORY: M99.03-Segmental and somatic dysfunction of lumbar [id number]-CM COMPARISON: 06/13/2012. PROCEDURE COMMENTS: 3 views lumbar [...] HISTORY: ??M99.01-Segmental and somatic dysfunction of cervical [id number]-[id number]-CM COMPARISON: ??Cervical spine images from June 23, [...] HISTORY: M99.01-Segmental and somatic dysfunction of cervical ohnesa-JOR-60-CM COMPARISON: Cervical spine images from June 23, [...] documented as of this encounter Care Teams Litigation Docket Manager Relationship Specialty Start Date End Date Thea Rubio MD PCP - General Family Medicine 09/13/14 07/16/22 documented as of this encounter
--- OUTSIDE RECORDS SUMMARY | 2024-03-15 09:58 | XMS_ITS | Encounter Summary ---
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) Chest discomfort ASD (atrial septal defect) Procedures CT CHEST W CONTRAST Migue Anne MD Phone: tel: fax: Referral ID Status Reason Start Date Expiration Date Visits Re quested Visits Authorized [id number] Closed 04/02/2018 04/02/2019 1 1 Reason for Visit * Reason Comments Chest Discomfort few days left side Headache Neck Pain Encounter Details Date Type Department Care Team (Late st Contact Info) Description 04/02/2018 2:30 PM EST Office Visit [facility] [address] [place] [address] Migue Anne MD [address] [place] [address] Chest discomfort (Primary Dx); Precordial pain; ASD [...] Clinical Support [facility] [address] [place] [address] Scheduled Orders Name Type Priority Associated Diagnoses [...] as of this encounter Care Teams Manual Machinist Relationship Specialty Start Date End Date Thea Rubio MD PCP - General Family Medicine 09/13/14 07/16/22 documented as of this encounter
--- OUTSIDE RECORDS SUMMARY | 2024-03-15 09:58 | XMS_ITS | Encounter Summary ---
Author Organization [place] [address] Care Team Providers Care Biodiesel Plant Superintendent Name Role Phone Thea Rubio MD Primary Care Provider +1- [phone] Reason for Visit * Auth/Cert/Inpt Specialty Diagnoses / Procedures Referred By Contac t Referred To Contact Diagnoses Chest pain due to myocardial ischemia, unspecified ischemic chest pain type Chest pain due to myocardial ischemia, unspecified ischemic chest pain type [I25.9] Procedures [facility] CATH PLMT L HRT & ARTS W/NJX & ANGIO IMG S&I CORONARY ANGIOGRAM / CARDIAC CATHETERIZATION Referral ID Status Reason Start Date Expiration Date Visits Re quested Visits Authorized [id number] 1 1 Encounter Details Date Type Department Care Team (Latest Contact Info) Description 05/25/2018 5:56 AM EST - 05/25/2018 11:25 AM EST Hospital Encounter [facility] CARD CATH REC [facility] [place] [address] Migue Anne MD [address] [place] [address] Chest pain due to myocardial ischemia, unspecified [...] are extended to you on behalf of [facility] as you are discharged. Because [...] sent through Care Everywhere. * Amlodipine tablets (Tunisian) documented in this encounter Ordered Prescriptions Prescription Sig Dispense Quantity Refills Last Filled Start Date End Date amLODIPine (NORVASC) 2.5 mg Oral Tablet Take 1 Tab by mouth daily. 30 Tab 2 05/25/2018 08/26/2018 documented in this encounter Discharge Disposition Disposition Code Departure Means Destination Home or Self Skilled Nursing documented in this encounter H&P Notes * Migue Anne MD - 05/25/2018 8:11 AM EST PHYSICIAN IMMEDIATE PRE-PROCEDURE UPDATE H&P and SEDATION ASSESSMENT Risks, benefits, potential complications and alternatives have been discussed with patient and/or patient's legal authorized home furnishings sales representative. HISTORY AND PHYSICAL H&P is less [...] fauces visible) Cath PCI Bleeding Risk Score Photographic Lithographer; <=25 mild, 26-65 mod, >65 high = : 40 Height: 5' 5.5 (166.4 cm) Weight: 135 lb 5 oz (61.4 kg) BMI (Calculated): 22.2 Comment: Allergies Allergen Reactions ??? Latex Rash ??? Latex, Natural Rubber Rash ??? Morphine Nausea And Vomiting ??? Metronidazole Rash Source Note - Tiny Ortega, JEWEL SAWYER - 05/07/2018 2:30 PM EST Chief Complaint [...] Rfl: ??? fluticasone (FLONASE) 50 mcg/actuation Nasl [place], Suspension, 1 [place] by Nasal route daily for14 days., Disp: [...] not limited to bleeding, infection, renal insufficiency, [place], stroke, and . The patient is willing [...] 10:45 AM EST Clinical Support [facility] [address] [place] [address] documented as of this encounter [...] myocardial ischemia, unspecified ischemic chest pain type NEWS REPORTER HEMODYNAMIC WAVEFORMS Routine 05/25/2018 7:51 AM EST [...] CATH ORDERABLES Final Result Performing Organization Address [facility] de Phone Number [facility] * NEWS REPORTER HEMODYNAMIC WAVEFORMS (05/25/2018 7:51 AM EST) 05/25/2018 7:51 AM EST Migue Anne MD CARDIAC CATH ORDERABLES Final Result Performing Organization Address [facility] de Phone Number [facility] [address] [place] [address] * POCT URINE (05/25/2018 7:42 AM EST) Preg Test, Ur NEG POS/NEG [facility] Lot Number [id number] [facility] Expiration Date 08/19/2019 [facility] SeriAl # [facility] Control Line Yes YES/NO [facility] 05/25/2018 7:42 AM EST Migue Anne MD POINT OF CARE TEST ORDE RABLES Final Result Performing Organization Address [facility] de Phone Number [facility] [address] [place] [address] documented in this encounter Visit Diagnoses Diagnosis [...] documented as of this encounter Care Teams Biodiesel Plant Superintendent Relationship Specialty Start Date End Date Thea Rubio MD PCP - General Family Medicine 09/13/14 07/16/22 documented as of this encounter
--- OUTSIDE RECORDS SUMMARY | 2024-03-15 09:58 | XMS_ITS | Encounter Summary ---
Author Organization [place] [address] Care Team Providers Care Stopper Setter Name Role Phone Thea Rubio MD Primary Care Provider +1- [phone] Reason for Visit * Reason Onset Date Comments Prior Authorization 04/08/2018 Other 04/08/2018 Encounter Details Date Type Department Care Team (Late st Contact Info) Description 04/08/2018 Telephone [facility] [address] [place] [address] Migue Anne MD [address] [place] [address] Prior Authorization; Other Social History Tobacco Use [...] review need for CT test. Please call [facility] @ [phone], option 3 with in 3 business days. documented in this encounter Plan of Treatment Upcoming Encounters Date Type Department Care Team (Late st Contact Info) Description 04/24/2024 10:45 AM EST Clinical Support [facility] [address] [place] [address] documented as of this encounter [...] <=230 ng/mL D-DU 04/15/2018 2:30 PM EST [employer] Comment: This test has been clinically validated by the trial paralegal and approved by the FDA for exclusion [...] Anne MD HEMATOLOGY ORDERABLES F inal Result [facility] [address], [place] [address] documented in this encounter Visit Diagnoses Diagnosis Atypical chest pain- Primary Other chest pain documented in this encounter Additional Health Concerns Assessment Noted Time PHQ-9 Depression Total Score: 2 10/07/19 18 8:00 AM EDT PHQ-2 Depression Total Score: 2 10/07/19 18 8:00 AM EDT documented as of this encounter Care Teams Stopper Setter Relationship Specialty Start Date End Date Thea Rubio MD PCP - General Family Medicine 09/13/14 07/16/22 documented as of this encounter
--- OUTSIDE RECORDS SUMMARY | 2024-03-15 09:59 | XMS_ITS | Encounter Summary ---
Author Organization [place] [address] Care Team Providers Care Metal Sprayer Protective Coating Name Role Phone Thea Rubio MD Primary Care Provider +1- [phone] Reason for Visit * Reason Onset Date Comments ED Follow-Up Call 11/18/2017 Care Management - Chart Review 11/18/2017 Encounter Details Date Type Department Care Team (Late st Contact Info) Description 11/18/2017 Patient Outreach [facility] [address] [place] [address] Thea Rubio MD [address] [place], [place] [id number] ED Follow-Up Call; Care Management - Chart [...] aware that we always have a provider independent marketing consultant and offer eVisits?: Yes Reason you chose [...] 10:45 AM EST Clinical Support [facility] [address] [place] [phone] documented as of this encounter Goals Goal [...] of this encounter Care Teams Metal Sprayer Protective Coating Relationship Specialty Start Date End Date Thea Rubio MD PCP - General Family Medicine 09/13/14 07/16/22 documented as of this encounter
--- OUTSIDE RECORDS SUMMARY | 2024-03-15 09:59 | XMS_ITS | Encounter Summary ---
Author Organization [place] [address] Care Team Providers Care Roll Forming Machine Operator Name Role Phone Thea Rubio MD Primary Care Provider +1- [phone] Reason for Visit * Reason Comments Gynecologic Exam Encounter Details Date Type Department Care Team (Late st Contact Info) Description 10/06/2017 8:45 AM EDT Office Visit [facility] [address] [place] [address] Thea Rubio MD [address] [place] [phone] ASCUS of cervix with negative high risk [...] SYPHILIS SCREEN WITH REFLEX RPR QUANT; Future [facility] Documentation Medication Compliance: Compliant all the time Understanding of Current Medications: Good Medication Compliance Barriers: None or N/A Self-Management Tools: Home weight monitoring Self-Management Ability: Good Willingness to Adopt Healthy Behaviors: Good Potential Barriers to completing treatment plans today: No significant barriers [facility] Flowsheet was completed/reviewed as part of [...] 04/24/2024 10:45 AM EST Clinical Support [facility] [address] [place] [address] documented as of this encounter Goals Goal Patient Goal Type Associated Problems Recent Progress Patient-Stated? Author Maintain a healthy diet, exercise regularly and maintain an ideal body weight General No Thea Rubio MD Stay Tobacco Free Lifestyle No Thea Rubio MD documented as of this encounter Procedures Procedure Name Priority Date/Time Associated Diagnosis Comments MATERIALS RESEARCH ENGINEER CYTOLOGY REQUEST (PAP ONLY) Routine 10/06/2017 12:18 PM EDT Visit for gynecologic examination [facility] MATERIALS RESEARCH ENGINEER CYTOLOGY ORDER Routine 10/06/2017 12:18 PM EDT [...] Detected Not Detected 018 9:48 AM EDT [employer] Thin Prep SPECIMEN FROM UTERINE CERVIX / Unknown 10/06/2017 12:18 PM EDT 10/06/2017 12:18 PM EDT Narrative [facility]REF[facility] [employer] - 10/07/2017 9:48 AM EDT This test [...] MICROBIOLOGY - GENERAL ORD ERABLES Final Result [employer] [address], [address] [place] [address] * MATERIALS RESEARCH ENGINEER CYTOLOGY REQUEST (PAP ONLY) (10/06/2017 12:18 PM EDT) CASE REPORT Gynecologic Cytology Report ? Case: [id number] ? Authorizing Provider: ??Thea Rubio MD ?Collected: ? 10/06/2017 1218 ? Ordering Location: ? [facility] ? Received: ?10/06/2017 1218 ? First Screen: ?Diego Raza, ? CT ? Rescreen: ?Lauren De Anda, CT ? Specimen: ?LIQUID-BASED PAP - CERVICAL, Cervix ? 10/09/2017 12:11 PM EDT [facility] PAP FINAL DIAGNOSIS Negative for intraepithelial lesion or malignancy 10/09/2017 12:11 PM EDT [facility] OSCOPIC DESCRIPTION Microscopic examination is performed and the findings corroborate the diagnosis. 10/09/2017 12:11 PM EDT [facility] PAP SMEAR ADEQUACY Satisfactory for evaluation 10/09/2017 12:11 PM EDT [facility] ENDOCERVICAL T-ZONE Transformation zone present 10/09/2017 12:11 PM EDT [facility] EMBEDDED IMAGES 8 12:11 PM EDT [facility] PAP DISCLAIMER The Pap Smear is a screening test that aids in the detection of cervical cancer and cancer precursors. Both false positive and false negative results can occur. The test should be used at regular intervals, and positive results should be confirmed before definitive therapy. Processed using the ThinPrep Social Worker Masters Automated cytology screening device (Yumber). 10/09/2017 12:11 PM EDT [facility] Thin Prep SPECIMEN FROM UTERINE CERVIX / Unknown 10/06/2017 12:18 PM EDT 10/06/2017 12:18 PM EDT us Thea Rubio MD CYTOLOGY ORDERABLES Final Result [facility] [address] [place] [address] * CHLAMYDIA/GC BY TMA (10/06/2017 12:15 PM EDT) Chlamydia trachomatis Not Detected Not Detected 10/07/2017 1:13 PM EDT [facility] [employer] Neisseria gonorrhoeae Not Detected Not Detected 10/07/2017 1:13 PM EDT [facility] [employer] [employer] Thin Prep SPECIMEN FROM UTERINE CERVIX / Unknown 10/06/2017 12:15 PM EDT 10/06/2017 12:15 PM EDT Narrative [employer] - 10/07/2017 1:13 PM EDT Testing methodology is gasfitter mediated amplification (TMA) using the Aptima Combo 2 assay from [employer]. A negative result does not completely rule [...] characteristics of this test were validated by [facility]. This assay is FDA cleared to test the following specimens: clinician-collected endocervical, vaginal and male urethral swab specimens, patient collected vaginal specimens within a clinic setting, Thin Prep Specimens in [employer], and first-stream, unpreserved male urine specimens. Testing on female urine is not FDA approved by this methodology, but has been developed and validated by the [facility] laboratory.?? Detailed methodology is available upon request. Thea Rubio MD MICROBIOLOGY - GENERAL ORD ERABLES Final Result Performing Organization Address City/[facility]/ZIP Co de Phone Number [employer] [address] [place] [address] , [place] [address] * SYPHILIS SCREEN WITH REFLEX RPR QUANT (10/06/2017 9:58 AM EDT) Trep Ab Index 0.06 <=0.99 Index Value 10/06/2017 10:02 PM EDT [employer] Comment: < 1.00 - Negative ?? >=1.00 - Positive NOTE: ??All positive results will be reflexed to Quantitative Non-Treponemal(RPR)test. ?? Blood Venipuncture / Unknown 10/06/2017 9:58 AM EDT 10/06/2017 9:58 AM EDT Thea Rubio MD CHEMISTRY ORDERABLES Final Result Performing Organization Address [facility]/ZIP Co de Phone Number [employer] [address] , [place] [address] * HIV AG/AB (10/06/2017 9:58 AM EDT) HIV Ag/AB Non-Reacti ve Non-Reactive, See Footnote 10/06/2017 10:01 PM EDT [facility] [employer] Blood Venipuncture / Unknown 10/06/2017 9:58 AM EDT 10/06/2017 9:58 AM EDT us Thea Rubio MD IMMUNOLOGY ORDERABLES Antonia l Result Performing Organization Address City/[facility]/ZIP Co de Phone Number [employer] [address] , [place] [address] * HEPATITIS C ANTIBODY - SCREENING (10/06/2017 9:58 AM EDT) Hep C Ab Non-Reactiv e Non-Reacti ve 10/06/2017 10:01 PM EDT [employer] Blood Venipuncture / Unknown 10/06/2017 9:58 AM EDT 10/06/2017 9:58 AM EDT Result Placido Rubio MD HEMATOLOGY ORDERABLES Antonia l Result Performing Organization Address [facility] Co de Phone Number [employer] [address] , [place] [address] * HEPATITIS B SURFACE ANTIGEN (10/06/2017 9:58 AM EDT) Hep Bs Ag Non-Reactiv e Non-Reacti ve 10/06/2017 10:01 PM EDT [employer] Blood Venipuncture / Unknown 10/06/2017 9:58 AM EDT 10/06/2017 9:58 AM EDT Result Placido Rubio MD CHEMISTRY ORDERABLES Final Result Performing Organization Address City/[facility]/ZIP Co de Phone Number [email or web address] [address] , [place] [address] documented in this encounter Visit [...] documented as of this encounter Care Teams Roll Forming Machine Operator Relationship Specialty Start Date End Date Thea Rubio MD PCP - General Family Medicine 09/13/14 07/16/22 documented as of this encounter
--- OUTSIDE RECORDS SUMMARY | 2024-03-15 09:59 | XMS_ITS | Encounter Summary ---
Author Organization [place] [address] Care Team Providers Care Marketing Officer Name Role Phone Thea Rubio MD Primary Care Provider +1- [phone] Reason for Referral * Echo (Routine) - Closed Specialty Diagnoses / Procedures Referred By Nancyac t Referred To Contact Radiology Diagnoses ASD (atrial septal defect) H/O Amplatzer atrial septal defect closure Procedures EC ECHOCARDIOGRAM LIMITED Myrtle Vincent APRN EDG ECHO [facility] [place] [address] Phone: tel: fax: Referral ID Status Reason Start Date Expiration Date Visits Re quested Visits Authorized [id number] Closed 07/18/2017 07/19/2019 1 1 Reason for Visit * Echo (Routine) - Closed Specialty Diagnoses / Procedures Referred By Amalia tuttle Referred To Contact Radiology Diagnoses ASD (atrial septal defect) H/O [employer] atrial septal defect closure Procedures EC ECHOCARDIOGRAM LIMITED Myrtle Vincent APRN EDG [facility] [place] [address] Phone: tel: fax: Referral ID Status Reason Start Date Expiration Date Visits Re quested Visits Authorized [id number] Closed 07/18/2017 07/19/2019 1 1 Encounter Details Date Type Department Care Team (Latest Contact Info) Description 01/06/2018 12:48 PM EDT - 01/06/2018 11:59 PM EDT Hospital Encounter [facility] [address] [place] [id number] Myrtle Vincent APRN ASD (atrial septal defect); [...] Support [facility] [address] [place] [address] documented as of this encounter [...] as of this encounter Care Teams Marketing Officer Relationship Specialty Start Date End Date Thea Rubio MD PCP - General Family Medicine 09/13/14 07/16/22 documented as of this encounter
--- OUTSIDE RECORDS SUMMARY | 2024-03-15 09:59 | XMS_ITS | Encounter Summary ---
Author Organization [place] [address] Care Team Providers Care Grocery Manager Name Role Phone Thea Rubio MD Primary Care Provider +1- [phone] Reason for Visit * Reason Comments Follow-up on control Anemia Encounter Details Date Type Department Care Team (Late st Contact Info) Description 12/10/2017 3:45 PM EDT Office Visit [facility] [address] [place] [address] Thea Rubio MD [address] [place] [address] Normocytic anemia (Primary Dx) Social History Tobacco [...] completing treatment plans today: No significant barriers [facility] Flowsheet was completed/reviewed as part of today's visit. Educated patient regarding the diagnosis, medication/treatment, goals, self- management tools and instructions based on their care plan. They verbalized understanding of the education given on the After Visit Summary [AVS] for today's visit. A copy of the AVS was provided either in writing and/or via [employer]. A new medicine was not prescribed on [...] Follow these instructions at home: ?? Take [id number]-bkrkuyj and prescription medicines only as told by [...] 05/15/2005 Document Revised: 05/09/2017 Document Reviewed: 05/09/2017 [employer] Patient Education ?? 2018 [employer] documented in this encounter Plan of Treatment Upcoming Encounters Date Type Department Care Team (Late st Contact Info) Description 04/24/2024 10:45 AM EST Clinical Support [facility] [address] [place] [address] documented as of this encounter [...] % 12/16/2017 7:59 PM EDT [facility] [employer] Retic # 50.8 40.0 - 110.0 x10(3)/mcL 12/16/2017 7:59 PM EDT [facility] [employer] Blood VENOUS BLOOD / Unknown Venipuncture / Unknown 12/16/2017 2:48 PM EDT 12/16/2017 2:48 PM EDT us Thea Rubio MD HEMATOLOGY ORDERABLES Antonia l Result Performing Organization Address [facility] Co de Phone Number [facility] [employer] [facility] [address] , [place] [address] * LACTATE DEHYDROGENASE (12/16/2017 2:48 PM EDT) LDH 175 135 - 214 IU/L 12/16/2017 8:31 PM EDT [facility] [employer] [facility] Blood VENOUS BLOOD / Unknown Venipuncture / Unknown 12/16/2017 2:48 PM EDT 12/16/2017 2:48 PM EDT us Thea Rubio MD CHEMISTRY ORDERABLES Final Result Performing Organization Address [facility] Co de Phone Number [facility] [employer] [facility] [address] , [place] [address] * HAPTOGLOBIN (12/16/2017 2:48 PM EDT) Haptoglobin 102 30 - 200 mg/dL 12/16/2017 8:20 PM EDT [facility] [employer] Blood VENOUS BLOOD / Unknown Venipuncture / Unknown 12/16/2017 2:48 PM EDT 12/16/2017 2:48 PM EDT us Thea Rubio MD CHEMISTRY ORDERABLES Final Result Performing Organization Address [facility] Co de Phone Number [facility] [employer] [facility] [address] , [place] [address] * VITAMIN B12/ FOLIC ACID (12/16/2017 2:48 PM EDT) Vitamin B12 222 211 - 946 pg/mL 12/16/2017 8:48 PM EDT [facility] [employer] [facility] Folate 12.00 4.50 - 16.00 ng/mL 12/16/2017 8:48 PM EDT [facility] [employer] [employer] Blood Venipuncture / Unknown 12/16/2017 2:48 PM EDT 12/16/2017 2:48 PM EDT Narrative [facility] [employer], [facility] - 12/16/2017 8:48 PM EDT Ingestion of abimael doses of biotin (>5 mg/day) taken within 8 hours of drawing blood sample can interfere with this immunoassay test. Thea Rubio MD CHEMISTRY ORDERABLES Final Result Performing Organization Address [facility]/ZIP Co de Phone Number [facility] [employer], [facility] [address] , [place] [address] * (ABNORMAL) IRON/UIBC (12/16/2017 2:48 PM EDT) Iron 22(L) 30 - 160 mcg/dL 12/16/2017 8:50 PM EDT [facility] [employer], [facility] UIBC 463(H) 112 - 347 mcg/dL 12/16/2017 8:50 PM EDT [facility] [employer] [employer] Transferrin Sat 5(L) 20 - 50 % 8 8:50 PM EDT [facility] [employer] [employer] Blood Venipuncture / Unknown 12/16/2017 2:48 PM EDT 12/16/2017 2:48 PM EDT us Thea Rubio MD CHEMISTRY ORDERABLES Final Result Performing Organization Address [facility]/ZIP Co de Phone Number [facility] [employer], [facility] [address] , [place] [address] * (ABNORMAL) CBC WITH DIFF (12/16/2017 2:48 PM EDT) WBC 5.6 3.7 - 10.3 x10(3)/mcL 12/16/2017 7:56 PM EDT [facility] [employer], [employer] RBC 3.82(L) 3.90 - 5.20 x10(6)/mcL 12/16/2017 7:56 PM EDT [facility] [employer], [facility] Hgb 9.9(L) 11.2 - 15.7 g/dL 12/16/2017 7:56 PM EDT [facility], [facility] Hct 30.6(L) 34.0 - 45.0 % 12/16/2017 7:56 PM EDT [facility], [facility] MCV 80.1 79.0 - 98.0 fL 12/16/2017 7:56 PM EDT [facility], [facility] MCH 25.9(L) 26.0 - 32.0 pg 12/16/2017 7:56 PM EDT [facility], [facility] MCHC 32.4 30.7 - 35.5 g/dL 12/16/2017 7:56 PM EDT [facility] RDW 15.6(H) <=14.9 % 12/16/2017 7:56 PM EDT [facility] Platelet 354 155 - 369 x10(3)/mcL 12/16/2017 7:56 PM EDT [facility] MPV 10.3 8.8 - 12.5 fL 12/16/2017 7:56 PM EDT [facility] Neut Percent 59.1 % 12/16/2017 7:56 PM EDT [facility] Comment:Neutrophils equals s egs plus bands Imm Gran% 0.5 % 12/16/2017 7:56 PM EDT [facility] Comment:Automated count of m etamyelocytes, myelocytes and promyelocytes. Lymph Percent 26.3 % 12/16/2017 7:56 PM EDT [facility] Charles Mix Percent 8.2 % 12/16/2017 7:56 PM EDT [facility] Eos Percent 5.5 % 12/16/2017 7:56 PM EDT [facility] Baso Percent 0.4 % 12/16/2017 7:56 PM EDT [facility] Neut # 3.3 1.6 - 6.1 x10(3)/mcL 12/16/2017 7:56 PM EDT [facility] Comment:Neutrophils equals s egs plus bands IMMGRAN# 0.0 0.0 - 0.1 x10(3)/mcL 12/16/2017 7:56 PM EDT [facility] Comment:Automated count of m etamyelocytes, myelocytes and promyelocytes. An absolute IG <0.1 is reported as 0.0. Lymph # 1.5 1.2 - 3.9 x10(3)/mcL 12/16/2017 7:56 PM EDT [facility] Charles [employer] # 0.5 0.3 - 0.9 x10(3)/mcL 12/16/2017 [...] serrano Result [facility] [address] , [place] [address] documented in this encounter Visit Diagnoses Diagnosis Normocytic anemia- Primary Anemia, unspecified documented in this encounter Additional Health Concerns Assessment Noted Time PHQ-9 Depression Total Score: 2 10/07/19 18 8:00 AM EDT PHQ-2 Depression Total Score: 2 10/07/19 18 8:00 AM EDT documented as of this encounter Care Teams Grocery Manager Relationship Specialty Start Date End Date Thea Rubio MD PCP - General Family Medicine 09/13/14 07/16/22 documented as of this encounter
--- OUTSIDE RECORDS SUMMARY | 2024-03-15 09:59 | XMS_ITS | Encounter Summary ---
Author Organization [place] [address] Care Team Providers Care Marble Carver Name Role Phone Thea Rubio MD Primary Care Provider +1- [phone] Reason for Visit * Reason Comments Follow-up 4/5 month follow up Chest Pain Edema * Consultation (Routine) - Closed Specialty Diagnoses / Procedures Referred By Contact Referred To Contact Nurse Practitioner / Cardiology Diagnoses Hospital follow up Procedures HOSPITAL PATIENT VISIT Thae Rubio MD Phone: tel: fax: Tiny Ortega, SOLAR PANEL INSTALLATION SUPERVISOR [address] [place] [address] Phone: tel: fax: Referral ID Status Reason Start Date Expiration Date Visits Re quested Visits Authorized [id number] Closed 11/19/2017 11/19/2018 1 99 Encounter Details Date Type Department Care Team (Late st Contact Info) Description 01/13/2018 3:45 PM EDT Office Visit [facility] [address] [place] [address] Migue Anne MD [address] [place] [address] ASD (atrial septal defect) (Primary Dx); Precordial [...] 04/24/2024 10:45 AM EST Clinical Support [facility] [address] [place] [address] documented as of this encounter Goals Goal [...] Carver Relationship Specialty Start Date End Date Thea Rubio MD PCP - General Family Medicine 09/13/14 07/16/22 documented as of this encounter
--- OUTSIDE RECORDS SUMMARY | 2024-03-15 09:59 | XMS_ITS | Encounter Summary ---
Author Organization [place] [address] Care Team Providers Care Leather Production Artisan Name Role Phone Thea Rubio MD Primary Care Provider +1- [phone] Reason for Visit * Reason Comments Medication Refill Encounter Details Date Type Department Care Team (Late st Contact Info) Description 01/04/2018 Refill [facility] [address] [place] [address] Thea Rubio MD [address] [place] [phone] Medication Refill Social History Tobacco Use Types [...] 04/24/2024 10:45 AM EST Clinical Support [facility] [address] [place] [address] documented as of this encounter [...] documented as of this encounter Care Teams Leather Production Artisan Relationship Specialty Start Date End Date Thea Rubio MD PCP - General Family Medicine 09/13/14 07/16/22 documented as of this encounter
--- OUTSIDE RECORDS SUMMARY | 2024-03-15 09:59 | XMS_ITS | Encounter Summary ---
Author Organization [place] [address] Care Team Providers Care Process Specialist Name Role Phone Thea Rubio MD Primary Care Provider +1- [phone] Reason for Visit * Reason Onset Date Comments Other 12/24/2017 Encounter Details Date Type Department Care Team (Late st Contact Info) Description 12/24/2017 Telephone [facility] [address] [place] [address] Thea Rubio MD [address] [place] [address] [phone] Other Social History Tobacco Use Types Packs/Day [...] 04/24/2024 10:45 AM EST Clinical Support [facility] [address] [place] [address] documented as of this encounter Goals Goal [...] as of this encounter Care Teams Process Specialist Relationship Specialty Start Date End Date Thea Rubio MD PCP - General Family Medicine 09/13/14 07/16/22 documented as of this encounter
--- OUTSIDE RECORDS SUMMARY | 2024-03-15 09:59 | XMS_ITS | Encounter Summary ---
Author Organization [place] [address] Care Team Providers Care Rubber Mold Maker Name Role Phone Thea Rubio MD Primary Care Provider +1- [phone] Reason for Visit * Reason Onset Date Comments Appointment Needed 11/17/2017 Encounter Details Date Type Department Care Team (Late st Contact Info) Description 11/17/2017 Telephone SEP [facility] [place] [address] [place] [address] Migue Anne MD [address] [place] [address] Appointment Needed Social History Tobacco Use Types [...] Description 04/24/2024 10:45 AM EST Clinical Support [facility] [address] [place] [address] documented as of this encounter Goals Goal [...] as of this encounter Care Teams Rubber Mold Maker Relationship Specialty Start Date End Date Thea Rubio MD PCP - General Family Medicine 09/13/14 07/16/22 documented as of this encounter
--- OUTSIDE RECORDS SUMMARY | 2024-03-15 09:59 | XMS_ITS | Encounter Summary ---
Author Organization [place] [address] Care Team Providers Care Manager Of Radiology Name Role Phone Thea Rubio MD Primary Care Provider +1- [phone] Encounter Details Date Type Department Care Team (Latest Contact Info) Description 10/06/2017 9:58 AM EDT - 10/06/2017 11:59 PM EDT Hospital Encounter [facility] [address] [phone] Click, [facility] One High risk [...] Clinical Support [facility] [address] [place] [address] documented as of this encounter [...] <=0.99 Index Value 10/06/2017 10:02 PM EDT [facility] Comment: < 1.00 - Negative ?? >=1.00 - Positive NOTE: ??All positive results will be reflexed to Quantitative Non-Treponemal(RPR)test. ?? Blood Venipuncture / Unknown 10/06/2017 9:58 AM EDT 10/06/2017 9:58 AM EDT us Thea Rubio MD CHEMISTRY ORDERABLES Final Result [facility] [address] [place] [address] , [place] [address] * HIV AG/AB (10/06/2017 9:58 AM EDT) HIV Ag/AB Non-Reacti ve Non-Reactive, See Footnote 10/06/2017 10:01 PM EDT [employer] Blood Venipuncture / Unknown 10/06/2017 9:58 AM EDT 10/06/2017 9:58 AM EDT us Thea Rubio MD IMMUNOLOGY ORDERABLES Antonia l Result Performing Organization Address [facility] Co de Phone Number [facility] Augment [facility] [address] , [place] [address] * HEPATITIS C ANTIBODY - SCREENING (10/06/2017 9:58 AM EDT) Hep C Ab Non-Reactiv e Non-Reacti ve 10/06/2017 10:01 PM EDT [facility] Blood Venipuncture / Unknown 10/06/2017 9:58 AM EDT 10/06/2017 9:58 AM EDT us Thea Rubio MD HEMATOLOGY ORDERABLES Antonia l Result Performing Organization Address [facility] Co de Phone Number [facility] [address] , [place] [address] * HEPATITIS B SURFACE ANTIGEN (10/06/2017 9:58 AM EDT) Hep Bs Ag Non-Reactiv e Non-Reacti ve 10/06/2017 10:01 PM EDT [facility] Blood Venipuncture / Unknown 10/06/2017 9:58 AM EDT 10/06/2017 9:58 AM EDT us Thea Rubio MD CHEMISTRY ORDERABLES Final Result Performing Organization Address [facility] Co de Phone Number [facility] Augment [facility] [address] , [place] [address] documented in this encounter Visit Diagnoses Diagnosis High risk sexual behavior Problems related to high-risk sexual behavior documented in this encounter Additional Health Concerns Assessment Noted Time PHQ-9 Depression Total Score: 2 10/07/19 18 8:00 AM EDT PHQ-2 Depression Total Score: 2 10/07/19 18 8:00 AM EDT documented as of this encounter Care Teams Manager Of Radiology Relationship Specialty Start Date End Date Thea Rubio MD PCP - General Family Medicine 09/13/14 07/16/22 documented as of this encounter
--- OUTSIDE RECORDS SUMMARY | 2024-03-15 09:59 | XMS_ITS | Encounter Summary ---
Author Organization [place] [address] Care Team Providers Care Second Officer Name Role Phone Thea Rubio MD Primary Care Provider +1- [phone] Reason for Visit * Reason Onset Date Comments Results 12/17/2017 Encounter Details Date Type Department Care Team (Late st Contact Info) Description 12/17/2017 Telephone [facility] [address] [place] [address] Thea Rubio MD [address] [place] [phone] Results Social History Tobacco Use Types Packs/Day [...] 04/24/2024 10:45 AM EST Clinical Support [facility] [address] [place] [address] documented as of this encounter [...] documented as of this encounter Care Teams Second Officer Relationship Specialty Start Date End Date Thea Rubio MD PCP - General Family Medicine 09/13/14 07/16/22 documented as of this encounter
--- OUTSIDE RECORDS SUMMARY | 2024-03-15 09:59 | XMS_ITS | Encounter Summary ---
Author Organization [place] [address] Care Team Providers Care Computer Tape Librarian Name Role Phone Thea Rubio MD Primary Care Provider +1- [phone] Reason for Visit * Reason Comments Hip Pain right hip pain after steping of of a stair wrong Back Pain right sided CPTA: no ne Encounter Details Date Type Department Care Team (Late st Contact Info) Description 10/09/2017 7:38 PM EDT - 10/09/2017 8:26 PM EDT Emergency [facility] [address] [facility] [place] [address] Anderson Chery MD [address] [place] [address] Strain of lumbar region, initial encounter [...] EXPLORATION SURGERY 11/07/2016 Median [facility] eDborah Parker MD, for biliary stenosis ??? APPENDECTOMY [...] if not improving. She may take Tylenol [id number] for pain. Advised to return to the [...] This patient was seen in coordination with PA/PLASTICS SEASONER OPERATOR. This chart was completed using voice recognition technology and may contain unintended errors documented in this encounter Plan of Treatment Upcoming Encounters Date Type Department Care Team (Late st Contact Info) Description 04/24/2024 10:45 AM EST Clinical Support [facility] [address] [place] [address] documented as of this encounter [...] as of this encounter Care Teams Computer Tape Librarian Relationship Specialty Start Date End Date Thea Rubio MD PCP - General Family Medicine 09/13/14 07/16/22 documented as of this encounter
--- OUTSIDE RECORDS SUMMARY | 2024-03-15 09:59 | XMS_ITS | Encounter Summary ---
Author Organization [place] [address] Care Team Providers Care Mirror Painter Name Role Phone Thea Rubio MD Primary Care Provider +1- [phone] Reason for Visit * Reason Onset Date Comments Medication Refill 08/18/2017 Encounter Details Date Type Department Care Team (Late st Contact Info) Description 08/18/2017 Telephone [facility] [address] [place] [address] Thea Rubio MD [address] [place], [place] [phone] Medication Refill Social History Tobacco Use Types [...] 04/24/2024 10:45 AM EST Clinical Support [facility] [address] [place] [address] documented as of this encounter Goals Goal Patient Goal Type Associated Problems Recent Progress Patient-Stated? Author Maintain a healthy diet, exercise regularly and maintain an ideal body weight General No Thea Rubio MD Stay Tobacco Free Lifestyle No Thea Rubio MD documented as of this encounter Visit Diagnoses Not on filedocumented in this encounter Care Teams Mirror Painter Relationship Specialty Start Date End Date Thea Rubio MD PCP - General Family Medicine 09/13/14 07/16/22 documented as of this encounter
--- OUTSIDE RECORDS SUMMARY | 2024-03-15 09:59 | XMS_ITS | Encounter Summary ---
Author Organization [place] [address] Care Team Providers Care Milking Machine Operator Name Role Phone Thea Rubio MD Primary Care Provider +1- [phone] Encounter Details Date Type Department Care Team (Latest Contact Info) Description 01/28/2018 2:51 PM EDT - 01/28/2018 11:59 PM EDT Hospital Encounter [facility] [address] [phone] Click, [facility] One Iron deficiency [...] Clinical Support [facility] [address] [place] [address] documented as of this encounter [...] % 8 7:38 PM EDT [facility] Blood Venipuncture / Unknown 01/28/2018 2:52 PM EDT 01/28/2018 2:52 PM EDT us Thea Rubio MD CHEMISTRY ORDERABLES Final Result [facility] [address] [facility] , [place] [address] * (ABNORMAL) CBC WITH DIFF (01/28/2018 2:52 [...] 01/28/2018 7:04 PM EDT [facility] Comment:Neutrophils equals s egs plus bands Imm Gran% 0.3 % 01/28/2018 7:04 PM EDT [facility] Comment:Automated count of m etamyelocytes, myelocytes and promyelocytes. Lymph Percent 27.0 % 01/28/2018 7:04 PM EDT [facility] Bee Percent 7.8 % 01/28/2018 7:04 PM EDT [...] 7:04 PM EDT [facility] Bee # 0.5 0.3 - 0.9 x10(3)/mcL 01/28/2018 [...] l Result [facility] [address] , [place] [address] documented in this encounter Visit Diagnoses Diagnosis Iron deficiency anemia, unspecified iron deficiency anemia type documented in this encounter Additional Health Concerns Assessment Noted Time PHQ-9 Depression Total Score: 2 10/07/19 18 8:00 AM EDT PHQ-2 Depression Total Score: 2 10/07/19 18 8:00 AM EDT documented as of this encounter Care Teams Milking Machine Operator Relationship Specialty Start Date End Date Thea Rubio MD PCP - General Family Medicine 09/13/14 07/16/22 documented as of this encounter
--- OUTSIDE RECORDS SUMMARY | 2024-03-15 09:59 | XMS_ITS | Encounter Summary ---
Author Organization [place] [address] Care Team Providers Care Campaign Specialist Name Role Phone Thea Rubio MD Primary Care Provider +1- [phone] Reason for Visit * Reason Comments Chest Pain C/o high blood press ure, left arm pain and chest pain that started today. States she is a little short of breath. denies fever. cpta- plavix and aspirin. Encounter Details Date Type Department Care Team (Late st Contact Info) Description 11/17/2017 11:12 AM EDT - 11/17/2017 2:42 PM EDT Emergency [facility] [address] [place] [address] Vilma Cotto MD [address] [place] [address] Chest pain, unspecified type (Primary Dx) [...] perform this without difficulty. Patient contacted her food service aide, Dr. Anne, and was referred here by [...] Take 1 Tab by mouthdaily. 08/18/17 Yes hTea Rubio MD methocarbamol (ROBAXIN) 750 mg Oral [...] Percent 71.2 % Lymph Percent 17.6 % [place] Percent 7.4 % Eos Percent 3.1 % Baso Percent 0.7 % Neut # 4.8 1.8 - 7.7 x10(3)/mcL Lymph # 1.2 0.6 - 4.8 x10(3)/mcL [place] # 0.5 0.0 - 1.3 x10(3)/mcL Eos# [...] EKG 12 LEAD Impression Stationary ECG Study [place] [place] Interpretive Statements SINUS RHYTHM NONSPECIFIC T-WAVE [...] troponins. I spokewith Dr. Cuellar, the on-call food service aide, who was comfortable with outpatient management. Patientwas encouraged to continue her Plavix and is to contact her food service aide today to schedule an appointment for follow-up [...] 7:35 AM EDT Associated attestation - Vilma Cotto MD - 11/20/2017 7:35 AM EDT I have reviewed the chief complaint and history of present illness and review of systems as well asthe past medical/social/family history sections for this patient. I have participated in the care of this patient. I have reviewed the pertinent clinical information including physical exam, labs, radiographic studies and the plan. This patient was seen in coordination with PA/MASTER TAX ADVISOR. This chart was completed using voice recognition technology and may contain unintended errors documented in this encounter Plan of Treatment Upcoming Encounters Date Type Department Care Team (Late st Contact Info) Description 04/24/2024 10:45 AM EST Clinical Support [facility] [address] [place] [address] documented as of this encounter Goals Goal [...] <0.01 <0.01 ng/mL 11/17/2017 2:25 PM EDT [facility] Blood VENOUS BLOOD / Unknown Venipuncture / Unknown 11/17/2017 1:29 PM EDT 11/17/2017 1:35 PM EDT Narrative [facility] - 11/17/2017 2:25 PM EDT Values > or = 0.01 ng/mL have been shown to have prognostic value. Ingestion of abimael doses of biotin (>5 mg/day) taken within 8 hours of drawing blood sample can interfere with this immunoassay test. us Vilma Cotto MD CHEMISTRY ORDERABLES Final Resul t [facility] [address] [place] [address] * XR CHEST PA AND [...] ORDERABLES Final Resu lt Performing Organization Address [facility] Co de Phone Number [facility] [address] [place] [address] * TROPONIN-T (11/17/2017 11:44 AM EDT) Pathologist [facility] Troponin-T <0.01 <0.01 ng/mL 11/17/2017 12:09 PM EDT [facility] Blood VENOUS BLOOD / Unknown Venipuncture / Unknown 11/17/2017 11:44 AM EDT 11/17/2017 11:49 AM EDT Narrative [facility] - 11/17/2017 12:09 PM EDT Values > or = 0.01 ng/mL have been shown to have prognostic value. Ingestion of abimael doses of biotin (>5 mg/day) taken within 8 hours of drawing blood sample can interfere with this immunoassay test. Vilma Cotto MD CHEMISTRY ORDERABLES Final Resul t Performing Organization Address [facility] Co de Phone Number [facility] [address] [place] [address] * BASIC METABOLIC PANEL (11/17/2017 11:44 AM EDT) Sodium 140 136 - 145 mmol/L 11/17/2017 12:33 PM EDT [facility] Potassium 3.5 3.5 - 5.0 mmol/L 11/17/2017 12:33 PM EDT [facility] Chloride 104 98 - 107 mmol/L 11/17/2017 12:33 PM [facility] Total CO2 24 22 - 29 mmol/L 11/17/2017 12:33 PM [facility] Anion Gap 12 7 - 16 mmol/L 11/17/2017 12:33 PM [facility] Calcium 9.2 8.6 - 10.2 mg/dL 11/17/2017 12:33 PM [facility] Glucose Lvl 92 74 - 100 mg/dL 11/17/2017 12:33 PM [facility] BUN 9 6 - 20 mg/dL 11/17/2017 12:33 PM [facility] Creatinine 0.72 0.51 - 1.30 mg/dL 11/17/2017 12:33 PM [facility] GFR Afr Am 125 mL/min/1.7 3 m2 11/17/2017 12:33 PM [facility] GFR Non Afr Am 109 mL/min/1.7 3 m2 11/17/2017 12:33 PM [facility] Comment: GFR Afr Am and [...] CHEMISTRY ORDERABLES Final Resul t [facility] [address] [place] [address] * (ABNORMAL) CBC WITH DIFF (11/17/2017 11:44 AM EDT) WBC 6.8 4.0 - 11.0 x10(3)/mcL 11/17/2017 11:53 AM EDT [facility] RBC 4.27 3.80 - 5.10 x10(6)/mcL 11/17/2017 11:53 AM EDT [facility] Hgb 10.9(L) 12.0 - 15.6 g/dL 11/17/2017 11:53 AM EDT [facility] Hct 33.4(L) 35.7 - 45.9 % 11/17/2017 11:53 AM EDT [facility] MCV 78.4(L) 82.5 - 99.8 fL 11/17/2017 11:53 AM EDT [facility] MCH 25.6(L) 27.0 - 34.3 pg 11/17/2017 11:53 AM EDT [facility] MCHC 32.6 32.1 - 35.3 g/dL 11/17/2017 11:53 AM EDT [facility] RDW 16.2(H) 11.5 - 15.0 % 11/17/2017 11:53 AM EDT [facility] Platelet 340 144 - 423 x10(3)/[facility] 11/17/2017 11:53 AM EDT [facility] MPV 8.3 6.8 - 10.8 fL 11/17/2017 11:53 AM EDT [facility] Neut Percent 71.2 % 11/17/2017 11:53 AM EDT [facility] Lymph Percent 17.6 % 11/17/2017 11:53 AM EDT [facility] [place] Percent 7.4 % 11/17/2017 11:53 AM EDT [facility] Eos Percent 3.1 % 11/17/2017 11:53 AM EDT [facility] Baso Percent 0.7 % 11/17/2017 11:53 AM EDT [facility] Neut # 4.8 1.8 - 7.7 x10(3)/[facility] 11/17/2017 11:53 AM EDT [facility] Lymph # 1.2 0.6 - 4.8 x10(3)/[facility] 11/17/2017 11:53 AM EDT [facility] [place] # 0.5 0.0 - 1.3 x10(3)/[facility] 11/17/2017 11:53 AM EDT [facility] Eos# 0.2 0.0 - 0.5 x10(3)/[facility] 11/17/2017 11:53 AM EDT [facility] Baso # 0.0 0.0 - 0.2 x10(3)/[facility] 11/17/2017 11:53 AM EDT [facility] Blood VENOUS BLOOD / Unknown Venipuncture / Unknown 11/17/2017 11:44 AM EDT 11/17/2017 11:49 AM EDT us Vilma Cotto MD HEMATOLOGY ORDERABLES Final Resu lt [facility] [address] [facility] [place] [address] * EK EKG 12 LEAD (11/17/2017 [...] 11-17-2017 13:45:33 EDT by Duran Sales MD Vimla Cotto MD IMG ECG ORDERABLES Final Result [...] documented as of this encounter Care Teams Campaign Specialist Relationship Specialty Start Date End Date Thea Rubio MD PCP - General Family Medicine 09/13/14 07/16/22 documented as of this encounter
--- OUTSIDE RECORDS SUMMARY | 2024-03-15 09:59 | XMS_ITS | Encounter Summary ---
Author Organization [place] [address] Care Team Providers Care Piccoloist Name Role Phone Thea Rubio MD Primary Care Provider +1- [phone] Reason for Visit * Reason Onset Date Comments Chest Discomfort 11/17/2017 Encounter Details Date Type Department Care Team (Late st Contact Info) Description 11/17/2017 Telephone SEP [facility] [address] [address] [place] [address] Migue Anne MD [address] [place] [address] Chest Discomfort Social History Tobacco Use Types [...] 04/24/2024 10:45 AM EST Clinical Support [facility] [address] [place] [address] documented as [...] documented as of this encounter Care Teams Piccoloist Relationship Specialty Start Date End Date Thea Rubio MD PCP - General Family Medicine 09/13/14 07/16/22 documented as of this encounter
--- OUTSIDE RECORDS SUMMARY | 2024-03-15 09:59 | XMS_ITS | Encounter Summary ---
Author Organization [place] [address] Care Team Providers Care Army Senior Officer Name Role Phone Thea Rubio MD Primary Care Provider +1- [phone] Reason for Visit * Reason Comments Medication Refill Encounter Details Date Type Department Care Team (Late st Contact Info) Description 12/05/2017 Refill [facility] [address] [place] [address] Thea Rubio MD [address] [place] [address] [phone] Medication Refill Social History Tobacco Use Types [...] 10:45 AM EST Clinical Support [facility] [address] [place] [address] documented as of this encounter [...] documented as of this encounter Care Teams Army Senior Officer Relationship Specialty Start Date End Date Thea Rubio MD PCP - General Family Medicine 09/13/14 07/16/22 documented as of this encounter
--- OUTSIDE RECORDS SUMMARY | 2024-03-15 09:59 | XMS_ITS | Encounter Summary ---
Author Organization [place] [address] Care Team Providers Care Radiology Physician Assistant Name Role Phone Thea Rubio MD Primary Care Provider +1- [phone] Encounter Details Date Type Department Care Team (Latest Contact Info) Description 11/24/2017 2:58 PM EDT - 11/24/2017 11:59 PM EDT Hospital Encounter [facility] [address] [phone] Click, [facility] One Anemia, unspecified [...] 11/24/2017 2:58 PM EDT us Tiny Ortega DIVISION TOLL WIRE CHIEF HEMATOLOGY ORDERABLES Antonia serrano Result [facility] [address] [facility] , [place] [address] documented in this encounter Visit Diagnoses Diagnosis Anemia, unspecified type documented in this encounter Additional Health Concerns Assessment Noted Time PHQ-9 Depression Total Score: 2 10/07/19 18 8:00 AM EDT PHQ-2 Depression Total Score: 2 10/07/19 18 8:00 AM EDT documented as of this encounter Care Teams Radiology Physician Assistant Relationship Specialty Start Date End Date Thea Rubio MD PCP - General Family Medicine 09/13/14 07/16/22 documented as of this encounter
--- OUTSIDE RECORDS SUMMARY | 2024-03-15 09:59 | XMS_ITS | Encounter Summary ---
Author Organization [place] [address] Care Team Providers Care Pupil Personnel Worker Name Role Phone Thea Rubio MD Primary Care Provider +1- [phone] Reason for Visit * Reason Onset Date Comments Cardiology Clearance 12/25/2017 Encounter Details Date Type Department Care Team (Late st Contact Info) Description 12/25/2017 Telephone SEP [facility] [address] [place] [address] Migue Anne MD [address] [place] [address] Cardiology Clearance Social History Tobacco Use Types [...] for [address] Aaron Rocha [phone] documented in this encounter Plan of Treatment Upcoming Encounters Date Type Department Care Team (Late st Contact Info) Description 04/24/2024 10:45 AM EST Clinical Support [facility] [address] [place] [address] documented as of this encounter [...] documented as of this encounter Care Teams Pupil Personnel Worker Relationship Specialty Start Date End Date Thea Rubio MD PCP - General Family Medicine 09/13/14 07/16/22 documented as of this encounter
--- OUTSIDE RECORDS SUMMARY | 2024-03-15 09:59 | XMS_ITS | Encounter Summary ---
Author Organization [facility] [address] Care Team Providers Care Potato Chip Frier Name Role Phone Thea Rubio MD Primary Care Provider +1- [phone] Encounter Details Date Type Department Care Team (Late st Contact Info) Description 12/17/2017 Orders Only [facility] [address] [place] [address] Thea Rubio MD [address] [place], [place] [id number] Iron deficiency anemia, unspecified iron deficiency anemia [...] 04/24/2024 10:45 AM EST Clinical Support [facility] [address] [place] [address] documented [...] mcg/dL 01/28/2018 7:38 PM EDT [facility] Transferrin Sat 18(L) 20 - 50 % 8 7:38 PM EDT [facility] Blood Venipuncture / Unknown 01/28/2018 2:52 PM EDT 01/28/2018 2:52 PM EDT us Thea Rubio MD CHEMISTRY ORDERABLES Final Result [facility] [address] [facility] , [place] [address] * (ABNORMAL) CBC WITH DIFF [...] 01/28/2018 7:04 PM EDT [facility] MCHC 30.9 30.7 - 35.5 g/dL 01/28/2018 7:04 PM EDT [facility] RDW 17.6(H) <=14.9 % 01/28/2018 7:04 PM EDT [facility] Platelet 347 155 - 369 x10(3)/mcL 01/28/2018 7:04 PM EDT [facility] MPV 10.4 8.8 - 12.5 fL 01/28/2018 7:04 PM EDT [facility] Neut Percent 57.6 % 01/28/2018 7:04 PM EDT [facility] Comment:Neutrophils equals s egs plus bands Imm Gran% 0.3 % 01/28/2018 7:04 PM EDT [facility] Comment:Automated count of m etamyelocytes, myelocytes and promyelocytes. Lymph Percent 27.0 % 01/28/2018 7:04 PM EDT [facility] Wood Percent 7.8 % 01/28/2018 7:04 PM EDT [facility] Eos Percent 6.8 % 01/28/2018 7:04 PM EDT [facility] Baso Percent 0.5 % 01/28/2018 7:04 PM EDT [facility] Neut # 3.4 1.6 - 6.1 x10(3)/mcL 01/28/2018 7:04 PM EDT [facility] Comment:Neutrophils equals s egs plus bands IMMGRAN# 0.0 0.0 - 0.1 x10(3)/mcL 01/28/2018 7:04 PM EDT [facility] Comment:Automated count of m etamyelocytes, myelocytes and promyelocytes. An absolute IG <0.1 is reported as 0.0. Lymph # 1.6 1.2 - 3.9 x10(3)/mcL 01/28/2018 7:04 PM EDT [facility] Wood # 0.5 0.3 - 0.9 x10(3)/mcL 01/28/2018 [...] ORDERABLES Antonia zach Result [facility] [address] [facility] , [place] [address] documented in this encounter Visit Diagnoses Diagnosis Iron deficiency anemia, unspecified iron deficiency anemia type- Primary Cyanocobalamin deficiency Other B-complex deficiencies documented in this encounter Additional Health Concerns Assessment Noted Time PHQ-9 Depression Total Score: 2 10/07/19 18 8:00 AM EDT PHQ-2 Depression Total Score: 2 10/07/19 18 8:00 AM EDT documented as of this encounter Care Teams Potato Chip Frier Relationship Specialty Start Date End Date Thea Rubio MD PCP - General Family Medicine 09/13/14 07/16/22 documented as of this encounter
--- OUTSIDE RECORDS SUMMARY | 2024-03-15 09:59 | XMS_ITS | Encounter Summary ---
Author Organization [facility] [place] [address] Care Team Providers Care Assembly Detailer Name Role Phone hTea Rubio MD Primary Care Provider +1- [phone] Reason for Visit * Reason Onset Date Comments ED Follow-Up Call 10/10/2017 Encounter Details Date Type Department Care Team (Late st Contact Info) Description 10/10/2017 Patient Outreach [facility] [address] [place] [address] Thea Rubio MD [address] [place], [place] [id number] ED Follow-Up Call Social History Tobacco Use [...] aware that we always have a provider pediatric surgeon and offer eVisits?: Yes Reason you chose [...] Support [facility] [address] [place] [address] documented as of this encounter Goals Goal [...] documented as of this encounter Care Teams Assembly Detailer Relationship Specialty Start Date End Date Thea Rubio MD PCP - General Family Medicine 09/13/14 07/16/22 documented as of this encounter
--- OUTSIDE RECORDS SUMMARY | 2024-03-15 09:59 | XMS_ITS | Encounter Summary ---
Author Organization [place] [address] Care Team Providers Care Job Site Superintendent Name Role Phone Thea Rubio MD Primary Care Provider +1- [phone] Reason for Visit * Reason Onset Date Comments ED Follow-Up Call 10/15/2017 Encounter Details Date Type Department Care Team (Late st Contact Info) Description 10/15/2017 Patient Outreach [facility] [address] [place] [address] Thea Rubio MD [address] [place], [place] [phone] ED Follow-Up Call Social History Tobacco Use [...] EST Clinical Support [facility] [address] [place] [address] documented as of this [...] documented as of this encounter Care Teams Job Site Superintendent Relationship Specialty Start Date End Date Thea Rubio MD PCP - General Family Medicine 09/13/14 07/16/22 documented as of this encounter
--- OUTSIDE RECORDS SUMMARY | 2024-03-15 09:59 | XMS_ITS | Encounter Summary ---
Author Organization [place] [address] Care Team Providers Care Office Rn Name Role Phone Thea Rubio MD Primary Care Provider +1- [phone] Reason for Visit * Reason Comments Hospital Follow Up Hospital follow up * Consultation (Routine) - Closed Specialty Diagnoses / Procedures Referred By Contact Referred To Contact Nurse Practitioner / Cardiology Diagnoses Hospital follow up Procedures HOSPITAL PATIENT VISIT Thea Rubio MD Phone: tel: fax: Tiny Ortega, COLORECTAL SURGEON [address] [place] [address] Phone: tel: fax: Referral ID Status Reason Start Date Expiration Date Visits Re quested Visits Authorized [id number] Closed 11/19/2017 11/19/2018 1 99 Encounter Details Date Type Department Care Team (Late st Contact Info) Description 11/19/2017 3:30 PM EDT Office Visit [facility] [address] [place] [address] Tiny Ortega, COLORECTAL SURGEON [address] [place] [address] Anemia, unspecified type (Primary Dx); [...] this encounter Progress Notes * Tiny Ortega, COLORECTAL SURGEON - 11/19/2017 3:30 PM EDT Chief Complaint [...] Clinical Support [facility] [address] [facility] [place] [address] documented as of this encounter Goals Goal Patient Goal Type Associated Problems Recent Progress Patient-Stated? Author Maintain a healthy diet, exercise regularly and maintain an ideal body weight General No Thea Rubio MD Stay Tobacco Free Lifestyle No Thea Ruibo MD documented as of this encounter Results [...] 11/24/2017 2:58 PM EDT Tiny M Ortega COLORECTAL SURGEON HEMATOLOGY ORDERABLES Antonia serrano Result [facility] [address] [facility] [facility] , [place] [address] documented in this encounter Visit Diagnoses Diagnosis [...] documented as of this encounter Care Teams Office Rn Relationship Specialty Start Date End Date Thea Rubio MD PCP - General Family Medicine 09/13/14 07/16/22 documented as of this encounter
--- OUTSIDE RECORDS SUMMARY | 2024-03-15 09:59 | XMS_ITS | Encounter Summary ---
Author Organization [place] [address] Care Team Providers Care Web Feeder Name Role Phone Thea Rubio MD Primary Care Provider +1- [phone] Reason for Visit * Reason Onset Date Comments Advice Only 11/19/2017 Encounter Details Date Type Department Care Team (Late st Contact Info) Description 11/19/2017 Telephone [facility] [place] [facility] [address] [place] [id number] Tiny Ortega APRN [address] [place] [address] Advice Only Social History Tobacco Use Types [...] Clinical Support [facility] [address] [place] [address] documented as of this encounter [...] as of this encounter Care Teams Web Feeder Relationship Specialty Start Date End Date Thea Rubio MD PCP - General Family Medicine 09/13/14 07/16/22 documented as of this encounter
--- OUTSIDE RECORDS SUMMARY | 2024-03-15 09:59 | XMS_ITS | Encounter Summary ---
Author Organization [place] [address] Care Team Providers Care Solutions Analyst Name Role Phone Thea Rubio MD Primary Care Provider +1- [phone] Encounter Details Date Type Department Care Team (Latest Contact Info) Description 12/16/2017 2:47 PM EDT - 12/16/2017 11:59 PM EDT Hospital Encounter [facility] [address] [place] [id number] [facility], [facility] Preop testing; [...] Clinical Support [facility] [address] [place] [address] documented as of this encounter [...] - 2.5 % 12/16/2017 7:59 PM EDT [facility] Retic # 50.8 40.0 - 110.0 x10(3)/mcL 12/16/2017 7:59 PM EDT [facility] Blood VENOUS BLOOD / Unknown Venipuncture / Unknown 12/16/2017 2:48 PM EDT 12/16/2017 2:48 PM EDT us Thea Rubio MD HEMATOLOGY ORDERABLES Atnonia l Result [facility] [address] [facility] , [place] [address] * LACTATE DEHYDROGENASE (12/16/2017 2:48 PM EDT) LDH 175 135 - 214 IU/L 12/16/2017 8:31 PM EDT [facility] Blood VENOUS BLOOD / Unknown Venipuncture / Unknown 12/16/2017 2:48 PM EDT 12/16/2017 2:48 PM EDT Result Placido Rubio MD CHEMISTRY ORDERABLES Final Result Performing Organization Address City/[facility]/ZIP Co de Phone Number [facility], [facility] [address] [facility] , [place] [address] * HAPTOGLOBIN (12/16/2017 2:48 PM EDT) Haptoglobin 102 30 - 200 mg/dL 12/16/2017 8:20 PM EDT [facility] [employer] Blood VENOUS BLOOD / Unknown Venipuncture / Unknown 12/16/2017 2:48 PM EDT 12/16/2017 2:48 PM EDT Result Placido Rubio MD CHEMISTRY ORDERABLES Final Result Performing Organization Address [facility] de Phone Number [facility], [facility] [address] [facility] , [place] [address] * VITAMIN B12/ FOLIC ACID (12/16/2017 2:48 PM EDT) Vitamin B12 222 211 - 946 pg/mL 12/16/2017 8:48 PM EDT [facility] [employer] Folate 12.00 4.50 - 16.00 ng/mL 12/16/2017 8:48 PM EDT [facility] [employer] Blood Venipuncture / Unknown 12/16/2017 2:48 PM EDT 12/16/2017 2:48 PM EDT Narrative [facility] - 12/16/2017 8:48 PM EDT Ingestion of abimael doses of biotin (>5 mg/day) taken within 8 hours of drawing blood sample can interfere with this immunoassay test. Result Placido Rubio MD CHEMISTRY ORDERABLES Final Result Performing Organization Address [facility] Co de Phone Number [facility] [address] [facility] , [place] [address] * (ABNORMAL) IRON/UIBC (12/16/2017 2:48 [...] Result [facility] [address] [facility] , [address] [place] [id number] * (ABNORMAL) CBC WITH DIFF (12/16/2017 2:48 [...] 12/16/2017 7:56 PM EDT [facility] MPV 10.3 8.8 - 12.5 fL 12/16/2017 7:56 PM EDT [facility] Neut Percent 59.1 % 12/16/2017 7:56 PM EDT [facility] Comment:Neutrophils equals s egs plus bands Imm Gran% 0.5 % 12/16/2017 7:56 PM EDT [facility] Comment:Automated count of m etamyelocytes, myelocytes and promyelocytes. Lymph Percent 26.3 % 12/16/2017 7:56 PM EDT [facility] Wise Percent 8.2 % 12/16/2017 7:56 PM EDT [facility] Eos Percent 5.5 % 12/16/2017 7:56 PM EDT [facility] Baso Percent 0.4 % 12/16/2017 7:56 PM EDT [facility], [facility] Neut # 3.3 1.6 - 6.1 x10(3)/[facility] 12/16/2017 7:56 PM EDT [facility], [facility] Comment:Neutrophils equals s egs plus bands IMMGRAN# 0.0 0.0 - 0.1 x10(3)/[facility] 12/16/2017 7:56 PM EDT [facility] Comment:Automated count of m etamyelocytes, myelocytes and promyelocytes. An absolute IG <0.1 is reported as 0.0. Lymph # 1.5 1.2 - 3.9 x10(3)/[facility] 12/16/2017 7:56 PM EDT [facility] Wise # 0.5 0.3 - 0.9 x10(3)/[facility] 12/16/2017 7:56 PM EDT [facility] Eos# 0.3 0.0 - 0.5 x10(3)/[facility] 12/16/2017 7:56 PM EDT [facility] Baso # 0.0 0.0 - 0.1 x10(3)/[facility] 12/16/2017 7:56 PM EDT [facility] Blood Venipuncture / Unknown 12/16/2017 2:48 PM EDT 12/16/2017 2:48 PM EDT us Thea Rubio MD HEMATOLOGY ORDERABLES Antonia serrano Result [facility] [address] [place] [address] , [place] [address] documented in this encounter Visit Diagnoses Diagnosis Preop testing Preoperative examination, unspecified ASD (atrial septal defect) Ostium secundum type atrial septal defect Normocytic anemia Anemia, unspecified documented in this encounter Additional Health Concerns Assessment Noted Time PHQ-9 Depression Total Score: 2 10/07/19 18 8:00 AM EDT PHQ-2 Depression Total Score: 2 10/07/19 18 8:00 AM EDT documented as of this encounter Care Teams Solutions Analyst Relationship Specialty Start Date End Date Thea Rubio MD PCP - General Family Medicine 09/13/14 07/16/22 documented as of this encounter
--- OUTSIDE RECORDS SUMMARY | 2024-03-15 09:59 | XMS_ITS | Encounter Summary ---
Author Organization [place] [address] Care Team Providers Care Electron Beam Welder Setter Name Role Phone Thea Rubio MD Primary Care Provider +1- [phone] Reason for Visit * Reason Comments Emesis Pt ambulated to [facility] ge w/ c/o vomiting since this AM. CPTA: none Encounter Details Date Type Department Care Team (Late st Contact Info) Description 10/13/2017 9:05 PM EDT - 10/13/2017 11:11 PM EDT Emergency [facility] [address] [place] [phone] Haider Forte MD [address] [place] [address] [place] [address] Non-intractable vomiting with nausea, unspecified vomiting type [...] Care Everywhere. * Nausea and Vomiting Adult (Cymro) documented in this encounter Medications at Time [...] was made to ensure the accuracy of milling planer operator, however some discrepancies may remain. This chart was completed using voice recognition technology and may contain unintended errors Haider Forte MD 10/13/17 2072 documented in this encounter Plan of Treatment [...] HCG QUALITATIVE (10/13/2017 10:03 PM EDT) Pathologist [facility] HCG QUAL Negative 10/13/2017 10:24 PM EDT [facility] Blood VENOUS BLOOD / Unknown Venipuncture / Unknown 10/13/2017 10:03 PM EDT 10/13/2017 10:11 PM EDT Narrative [facility] - 10/13/2017 10:24 PM EDT Ingestion of abimael doses of biotin (>5 mg/day) taken within 8 hours of drawing blood sample can interfere with this immunoassay test. us Haider Forte MD CHEMISTRY ORDERABLES Final Result [facility] [address] [place] [address] * LIPASE LEVEL (10/13/2017 10:03 PM EDT) [facility] Lipase Lvl 19 13 - 60 IU/L 10/13/2017 10:23 PM EDT [facility] Blood VENOUS BLOOD / Unknown Venipuncture / Unknown 10/13/2017 10:03 PM EDT 10/13/2017 10:11 PM EDT us Haider Forte MD CHEMISTRY ORDERABLES Final Result [facility] [address] [place] [id number] * COMPREHENSIVE METABOLIC PANEL (10/13/2017 10:03 PM EDT) Sodium 141 136 - 145 mmol/L 10/13/2017 10:23 PM EDT [facility] Potassium 3.5 3.5 - 5.0 mmol/L 10/13/2017 10:23 PM EDT [facility] Chloride 101 98 - 107 mmol/L 10/13/2017 10:23 PM EDT [facility] Total CO2 25 22 - 29 mmol/L 10/13/2017 10:23 PM EDT [facility] Anion Gap 15 7 - 16 mmol/L 10/13/2017 10:23 PM EDT [facility] Calcium 9.1 8.6 - 10.2 mg/dL 10/13/2017 10:23 PM EDT [facility] Glucose Lvl 93 74 - 100 mg/dL 10/13/2017 10:23 PM EDT [facility] BUN 8 6 - 20 mg/dL 10/13/2017 10:23 PM EDT [facility] Creatinine 0.75 0.51 - 1.30 mg/dL 10/13/2017 10:23 PM EDT [facility] Albumin 4.2 3.5 - 5.2 gm/dL 10/13/2017 10:23 PM EDT [facility] Total Protein 7.2 6.4 - 8.3 gm/dL 10/13/2017 10:23 PM EDT [facility] Bili Total 0.5 0.1 - 1.3 mg/dL 10/13/2017 10:23 PM EDT [facility] ALT 9 <=41 IU/L 10/13/2017 10:23 PM EDT [facility] AST 14 <=40 IU/L 10/13/2017 10:23 PM EDT [facility] Alk Phos 53 35 - 104 IU/L 10/13/2017 10:23 PM EDT [facility] GFR Afr Am 119 mL/min/1.7 3 m2 10/13/2017 10:23 PM EDT [facility] GFR Non Afr Am 104 mL/min/1.7 3 m2 10/13/2017 10:23 PM T [facility] Comment: GFR Afr Am and [...] Haider Forte MD CHEMISTRY ORDERABLES Final Result [facility] [address] [place] [address] * (ABNORMAL) CBC WITH DIFF (10/13/2017 10:03 PM EDT) WBC 6.7 4.0 - 11.0 x10(3)/mcL 10/13/2017 10:07 PM EDT [facility] RBC 4.49 3.80 - 5.10 x10(6)/mcL 10/13/2017 10:07 PM EDT [facility] Hgb 11.9(L) 12.0 - 15.6 g/dL 10/13/2017 10:07 PM EDT [facility] Hct 35.7 35.7 - 45.9 % 10/13/2017 10:07 PM EDT [facility] MCV 79.5(L) 82.5 - 99.8 fL 10/13/2017 10:07 PM EDT [facility] MCH 26.4(L) 27.0 - 34.3 pg 10/13/2017 10:07 PM EDT [facility] MCHC 33.2 32.1 - 35.3 g/dL 10/13/2017 10:07 PM EDT [facility] RDW 14.3 11.5 - 15.0 % 10/13/2017 10:07 PM EDT [facility] Platelet 369 144 - 423 x10(3)/mcL 10/13/2017 10:07 PM EDT [facility] MPV 8.1 6.8 - 10.8 fL 10/13/2017 10:07 PM EDT [facility] Neut Percent 70.8 % 10/13/2017 10:07 PM EDT [facility] Lymph Percent 20.6 % 10/13/2017 10:07 PM EDT [facility] Wise Percent 7.0 % 10/13/2017 10:07 PM EDT [facility] Eos Percent 1.1 % 10/13/2017 10:07 PM EDT [facility] Baso Percent 0.5 % 10/13/2017 10:07 PM EDT [facility] Neut # 4.7 1.8 - 7.7 x10(3)/mcL 10/13/2017 10:07 PM EDT [facility] Lymph # 1.4 0.6 - 4.8 x10(3)/[facility] 10/13/2017 10:07 PM EDT [facility] Wise # 0.5 0.0 - 1.3 x10(3)/[facility] 10/13/2017 10:07 PM EDT [facility] Eos# 0.1 0.0 - 0.5 x10(3)/[facility] 10/13/2017 10:07 PM EDT [facility] Baso # 0.0 0.0 - 0.2 x10(3)/[facility] 10/13/2017 10:07 PM EDT [facility] Blood VENOUS BLOOD / Unknown Venipuncture / Unknown 10/13/2017 10:03 PM EDT 10/13/2017 10:04 PM EDT us Haider Forte MD HEMATOLOGY ORDERABLES Final Result Performing Organization Address City/State/[facility] [place] [address] documented in this encounter Visit Diagnoses Diagnosis [...] Dawson Walters RN)[phone] (Stopped - Provider: Dawson Walters RN) documented in this encounter Additional Health Concerns Assessment Noted Time PHQ-9 Depression Total Score: 2 10/07/19 18 8:00 AM EDT PHQ-2 Depression Total Score: 2 10/07/19 18 8:00 AM EDT documented as of this encounter Care Teams Electron Beam Welder Setter Relationship Specialty Start Date End Date Thea Rubio MD PCP - General Family Medicine 09/13/14 07/16/22 documented as of this encounter
--- OUTSIDE RECORDS SUMMARY | 2024-03-15 10:00 | XMS_ITS | Encounter Summary ---
Author Organization [place] [address] Care Team Providers Care Fermenter Champagne Name Role Phone Thea Rubio MD Primary Care Provider +1- [phone] Reason for Visit * Reason Comments Medication Refill Encounter Details Date Type Department Care Team (Late st Contact Info) Description 07/29/2017 Refill [facility] [address] [place] [address] Thea Rubio MD [address] [place], [place] [id number] Medication Refill Social History Tobacco Use Types [...] Clinical Support [facility] [address] [place] [address] documented as of this encounter [...] documented as of this encounter Care Teams Fermenter Champagne Relationship Specialty Start Date End Date Thea Rubio MD PCP - General Family Medicine 09/13/14 07/16/22 documented as of this encounter
--- OUTSIDE RECORDS SUMMARY | 2024-03-15 10:00 | XMS_ITS | Encounter Summary ---
Author Organization [place] [address] Care Team Providers Care Booth Cleaner Name Role Phone Thea Rubio MD Primary Care Provider +1- [phone] Reason for Visit * Reason Comments Other Encounter Details Date Type Department Care Team (Late st Contact Info) Description 07/18/2017 Telephone [facility] [place] [facility] [address] [place] [address] Myrtle Vincent APRN Other Social [...] and schedule ECHO herself given the number [phone]. Patient verbalized understanding * Telephone Encounter - [...] Clinical Support [facility] [address] [place] [address] documented as of this encounter Goals Goal Patient Goal Type Associated Problems Recent Progress Patient-Stated? Author Maintain a healthy diet, exercise regularly and maintain an ideal body weight General No Thea Rubio MD Stay Tobacco Free Lifestyle No Thea Rubio MD documented as of this encounter Visit Diagnoses Not on filedocumented in this encounter Care Teams Booth Cleaner Relationship Specialty Start Date End Date Thea Rubio MD PCP - General Family Medicine 09/13/14 07/16/22 documented as of this encounter
--- OUTSIDE RECORDS SUMMARY | 2024-03-15 10:00 | XMS_ITS | Encounter Summary ---
Author Organization [place] [address] Care Team Providers Care Compensation Supervisor Name Role Phone Thea Rubio MD Primary Care Provider +1- [phone] Reason for Referral * Echo (Routine) - Closed Specialty Diagnoses / Procedures Referred By Amalia tuttle Referred To Contact Radiology Diagnoses Ostium secundum type atrial septal defect Procedures EC ECHOCARDIOGRAM COMPLETE W DOPPLER AND COLOR FLOW MAPPING Genaro Ibarra MD Phone: tel: fax: EDG ECHO [facility] [place] [address] Phone: tel: fax: Referral ID Status Reason Start Date Expiration Date Visits Re quested Visits Authorized [id number] Closed 06/25/2017 06/26/2019 1 1 Reason for Visit * Auth/Cert/Inpt Specialty Diagnoses / Procedures Referred By Contac t Referred To Contact Diagnoses Atrial septal defect Atrial septal defect [Q21.1] Procedures [place] PERC CLOS,RIK INTERATRIAL COMMUN W/IMPL ATRIAL SEPTAL DEFECT CLOSURE Referral ID Status Reason Start Date Expiration Date Visits Re quested Visits Authorized [id number] 1 1 Encounter Details Date Type Department Care Team (Latest Contact Info) Description 07/09/2017 12:47 PM EDT - 07/09/2017 11:59 PM EDT Hospital Encounter EDG ECHO [facility] [place] [address] Genaro Ibarra MD [address] [place], [place] [id number] Ostium secundum type atrial septal defect Discharge [...] Description 04/24/2024 10:45 AM EST Clinical Support [address] [address] documented as of this encounter [...] 07/08/2017 documented in this encounter Care Teams Compensation Supervisor Relationship Specialty Start Date End Date Thea Rubio MD PCP - General Family Medicine 09/13/14 07/16/22 documented as of this encounter
--- OUTSIDE RECORDS SUMMARY | 2024-03-15 10:00 | XMS_ITS | Encounter Summary ---
Author Organization [place] [address] Care Team Providers Care Recreation Assistant Name Role Phone Thea Rubio MD Primary Care Provider +1- [phone] Reason for Visit * Reason Onset Date Comments Precertification 07/04/2017 DOCUMENTATION F OR PRECERTIFICATION//REFERRAL DEPT. Encounter Details Date Type Department Care Team (Late st Contact Info) Description 07/04/2017 Telephone [facility] [address] [place] [phone] Payton Levy Clerical Staff Precertification (DOCUMENTATION [...] Provider: Genaro Ibarra MD Department: Sep H&V [facility] thumb region #: [phone] H&P Gardenia Childress (MR# [id number]) H&P Info Author Note Status Last Update [...] MIGUE SIDHU May 20, 2017 ??5:54 PM [phone] MIGUE SIDHU Order Providers Authorizing Encounter Billing Migue Sidhu EDG STRESS ECHO RM 2 Migue Sidhu ?? Resident Care Manager Info - ?? Associated Diagnoses Atrial septal defect and mitral stenosis Celiac artery stenosis (HCC) Previous Versions of Result Result History Show result comparison Results History EC ECHOCARDIOGRAM TRANSESOPHAGEAL W DOPPLER AND COLOR FLOW MAPPING (Order [id number]) 05/20/2017 ??5:54 PM - John, Rad Results [...] External Result Report Reviewed by Tiny Márquez, DIGITAL RESEARCH ANALYST on 05/21/2017 16:20 Order Report Order Details documented in this encounter Plan of Treatment Upcoming Encounters Date Type Department Care Team (Late st Contact Info) Description 04/24/2024 10:45 AM EST Clinical Support [facility] [address] [place] [address] documented as of this encounter Goals Goal Patient Goal Type Associated Problems Recent Progress Patient-Stated? Author Maintain a healthy diet, exercise regularly and maintain an ideal body weight General No Thea Rubio MD Stay Tobacco Free Lifestyle No Thea Rubio MD documented as of this encounter Visit Diagnoses Not on filedocumented in this encounter Care Teams Recreation Assistant Relationship Specialty Start Date End Date Thea Rubio MD PCP - General Family Medicine 09/13/14 07/16/22 documented as of this encounter
--- OUTSIDE RECORDS SUMMARY | 2024-03-15 10:00 | XMS_ITS | Encounter Summary ---
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 Educated on potential side [...] EST Clinical Support [facility] [address] [place] [address] documented as of this encounter Goals Goal Patient Goal Type Associated Problems Recent Progress Patient-Stated? Author Maintain a healthy diet, exercise regularly and maintain an ideal body weight General No Thea Rubio MD Stay Tobacco Free Lifestyle No Thea Rubio MD documented as of this encounter Visit Diagnoses Not on filedocumented in this encounter Care Teams Education Consultant Relationship Specialty Start Date End Date Thea Rubio MD PCP - General Family Medicine 09/13/14 07/16/22 Caty Porter RN [address] [place] [address] [facility] Registered Nurse 07/11/17 07/11/17 documented as of this encounter
--- OUTSIDE RECORDS SUMMARY | 2024-03-15 10:00 | XMS_ITS | Encounter Summary ---
Author Organization [place] [address] Care Team Providers Care On Site Property Manager Name Role Phone Thea Rubio MD Primary Care Provider +1- [phone] Reason for Visit * Auth/Cert/Inpt Specialty Diagnoses / Procedures Referred By Contac t Referred To Contact Diagnoses Atrial septal defect Atrial septal defect [Q21.1] Procedures [place] PERC CLOS,RIK INTERATRIAL COMMUN W/IMPL ATRIAL SEPTAL DEFECT CLOSURE Referral ID Status Reason Start Date Expiration Date Visits Re quested Visits Authorized [id number] 1 1 Encounter Details Date Type Department Care Team (Latest Contact Info) Description 07/09/2017 10:47 AM EDT - 07/10/2017 4:15 PM EDT Hospital Encounter [facility] [place] [id number] Genaro Ibarra MD [address] [place] [address] Atrial septal defect Discharge Disposition: Home or [...] this encounter Discharge Summaries * Elver Jones, SCHEDULING ASSISTANT - 07/10/2017 10:09 AM EDT [facility] Discharge Summary Patient Name: Gardenia Childress : [...] These medications were sent to [facility] [address] [place], [place] [address] [address] [address] - [phone] [address] [place] [address] ?? Aspirin 325 mg Tbec ?? clopidogrel 75 mg Tab Follow Up: Migue Anne MD [address] [place] [phone] Schedule an appointment as soon as possible for a visit in 1 week Signed: Elver Jones APRN 07/10/2017 10:09 AM Cosigned by Rosa Soriano MD at 07/10/2017 5:36 PM EDT documented in this encounter Discharge Instructions * Discharge Instructions* Mady Castro RN - 07/10/2017 4:00 PM EDT Images from the original note were not included. [facility] Discharge Instructions - Leg Access Best wishes [...] to your normal activities on {Time; dates multiple:85796}. You may return to work on {Time; dates multiple:20652}. Do NOT stop taking ASPIRIN and PLAVIX [...] EMERGENCY ROOM. PAIN ASSESSMENT Location: Condition: {Desc; acute/chronic/recent:22165} Current Pain Intensity: {Desc; severity w/0-10 scale:5014} Pain Management: {PAIN MANAGEMENT INSTRUCTIONS:96296670} IF PAIN INTENSIFIES OR PAIN IS UNRELIEVED WITH MEDICATIONS ORDERED, CALL YOUR PHYSICIAN. MEDICATIONS: *Contact your physician before resuming any medication from home not listed in the discharge medication instruction sheet. PRESCRIPTIONS: {Prescriptions for Discharge:95980803} FOLLOW-UP TO DOCTOR: {IP FOLLOW UP VISIT:85823748} ADDITIONAL INSTRUCTIONS: * Smoking is hazardous to [...] more often than directed. Talk to your director of estate regarding the use of this medicine in [...] for pain, tell your doctor or health caregivers homecare if the pain lasts more than 10 [...] if prescribed by your doctor or health caregivers homecare. Do not take aspirin or aspirin-like medicines [...] should report to your doctor or health caregivers homecare as soon as possible: -allergic reactions like [...] attention (report to your doctor or health caregivers homecare if they continue or are bothersome): -diarrhea or constipation -headache -nausea, vomiting -stomach gas, heartburn This list may not describe all possible side effects. Call your doctor for medical advice about side effects. You may report side effects to FDA at 9-770-UYL-3360. Where should I keep my medicine? Keep [...] take. The two forms of aspirin are: Csv-hzeosjn-ggenkb. This type of aspirin does not have a coating and is absorbed quickly. Ook-kxoeyws-swmwqm aspirin is usually recommended for people with chest pain. This type of aspirin also comesin a chewable form. Enteric-coated. This type of aspirin has a special coating that releases the medicine very slowly. Enteric-coated aspirin causes less stomach upset than dsp-lcafehl-xxneyp aspirin. This type of aspirin should not [...] 03/20/2009 Document Revised: 04/28/2015 Document Reviewed: 07/13/2014 [employer] Interactive Patient Education ??2016 [employer]. -stomach or intestinal ulcers -stroke or transient [...] more often than directed. Talk to your director of estate regarding the use of this medicine in [...] this medicine? Visit your doctor or health caregivers homecare for regular check ups. Do not stop taking your medicine unless your doctor tells you to. Notify your doctor or health caregivers homecare and seek emergency treatment if you develop breathing problems; changes in vision; chest pain; severe, sudden headache; pain, swelling, warmth in the leg; trouble speaking; sudden numbness or weakness of the face, arm or leg. These can be signs that your condition has gotten worse. If you are going to have surgery or dental work, tell your doctor or health caregivers homecare that you are taking this medicine. Certain genetic factors may reduce the effect of this medicine. Your doctor may use genetic tests to determine treatment. What side effects may I notice from receiving this medicine? Side effects that you should report to your doctor or health caregivers homecare as soon as possible: -allergic reactions like [...] attention (report to your doctor or health caregivers homecare if they continue or are bothersome): -constipation or diarrhea -headache -pain in back or joints -stomach upset This list may not describe all possible side effects. Call your doctor for medical advice about side effects. You may report side effects to FDA at 9-958-GER-5329. Where should I keep my medicine? Keep [...] Code Departure Means Destination Home or Self Snf documented in this encounter Progress Notes * [...] Soriano MD - 07/10/2017 9:56 AM EDT [facility] Patient: Gardeniajosafat Childress Primary Associate Music Professor: Dr Anne She has been in the [...] dry. No new rashes Left groin unremarkable Research Consultant: b SR Vitals: Vitals: 07/09/17 2215 07/10/17 [...] Date of visit 07/09/17 Visit Type Initial Confucianism Needs Pastoral care brochure * Jag Lombardo [...] ) Agency/Facility Options Offered, list provided N/A [facility] Financial Disclosure completed? N/A Follow-up Visit Follow-up Needed? Complete * Brittany Saucedo RN - 07/09/2017 5:10 PM EDT Right and left femoral sheaths removed. Pressure applied for 15 minutes. No complications. New dressings applied. CDI. No bleeding. No hematoma. BR restrictions reinforced. Verbalizes understanding. Will monitor. * Brittany Saucedo RN - 07/09/2017 4:07 PM EDT Pt [facility] from [facility] via stretcher. VSS. Right and left [...] discussed with patient and/or patient's legal authorized traffic workforce representative. HISTORY AND PHYSICAL H&P is completed [...] fauces visible) Cath PCI Bleeding Risk Score Secured Entrance Monitor; <=25 mild, 26-65 mod, >65 high: 35 [...] [facility] [address] [place] [address] documented as of this encounter Goals Goal [...] LR POC Routine 07/09/2017 1:46 PM EDT SENIOR TECHNICAL BUSINESS ANALYST HEMODYNAMIC WAVEFORMS Routine 07/09/2017 1:34 PM EDT POCT URINE Routine 07/09/2017 11:19 AM EDT documented in this encounter Results * SCANNED RHYTHM STRIPS (07/14/2017 7:59 PM EDT) Anatomical Region Laterality Modality Other 07/14/2017 7:59 PM EDT us Unknown Unknown IMG ECG ORDERABLES Final Result * EC ECHOCARDIOGRAM LIMITED (07/10/2017 12:31 PM EDT) [facility] Ejection Fraction 60-65 % PYRAMIS Anatomical [...] - 169 second(s) 07/09/2017 5:17 PM EDT [facility] Blood BLOOD SPECIMEN / Unknown 07/09/2017 4:51 PM EDT 07/09/2017 5:17 PM EDT us Genaro Ibarra MD POINT OF CARE TEST ORDERABLES Final Result Performing Organization Address City/[facility]/[place] [address] * (ABNORMAL) ACTIVATED CLOTTING TIME LR POC (07/09/2017 3:51 PM EDT) ACT-LR 186(H) 89 - 169 second(s) 07/09/2017 3:55 PM EDT [facility] Blood BLOOD SPECIMEN / Unknown 07/09/2017 3:51 PM EDT 07/09/2017 3:55 PM EDT us Genaro Ibarra MD POINT OF CARE TEST ORDERABLES Final Result Performing Organization Address City/[facility]/[place] [address] * XR CHEST AP PORTABLE (07/09/2017 3:22 [...] EDT Successful percutaneous ASD closure Right Heart Fingal-Dennis catheter inserted via the right femoral vein and advanced through right heart into pulmonary artery. Right atrial pressure is normal. There was no Pulmonary Hypertension. Pulmonary vascular resistance was normal us Genaro Ibarra MD CARDIAC CATH ORDERABLES Final Result Performing Organization Address City/[facility]/ZIP Co de Phone Number [facility] * (ABNORMAL) ACTIVATED CLOTTING TIME LR POC (07/09/2017 1:59 PM EDT) ACT-LR 344(H) 89 - 169 second(s) 07/09/2017 2:14 PM EDT [facility] Blood BLOOD SPECIMEN / Unknown 07/09/2017 1:59 PM EDT 07/09/2017 2:14 PM EDT us Genaro Ibarra MD POINT OF CARE TEST ORDERABLES Final Result [facility] [address] [place] [address] * (ABNORMAL) ACTIVATED CLOTTING TIME LR POC (07/09/2017 1:46 PM EDT) ACT-LR 394(H) 89 - 169 second(s) 07/09/2017 2:14 PM EDT [facility] Blood BLOOD SPECIMEN / Unknown 07/09/2017 1:46 PM EDT 07/09/2017 2:14 PM EDT us Genaro Ibarra MD POINT OF CARE TEST ORDERABLES Final Result Performing Organization Address [facility] de Phone Number [facility] [address] [place] [address] * SENIOR TECHNICAL BUSINESS ANALYST HEMODYNAMIC WAVEFORMS (07/09/2017 1:34 PM EDT) 07/09/2017 1:34 PM EDT us Genaro Ibarra MD CARDIAC CATH ORDERABLES Final Result Performing Organization Address [facility] Co de Phone Number [facility] [address] [place] [address] * POCT URINE (07/09/2017 11:19 AM EDT) Preg Test, Ur negative POS/NEG [facility] Lot Number [id number] [facility] Expiration Date 2018-06-18 [facility] SeriAl # [facility] Control Line Yes YES/NO [facility] 07/09/2017 11:1 9 AM EDT us Genaro Ibarra MD POINT OF CARE TEST ORDERABLES Final Result Performing Organization Address [facility] de Phone Number [facility] [address] [place], [place] [id number] documented in this encounter Visit Diagnoses Diagnosis [...] 07/09/2017 documented in this encounter Care Teams On Site Property Manager Relationship Specialty Start Date End Date Thea Rubio MD PCP - General Family Medicine 09/13/14 07/16/22 documented as of this encounter
--- OUTSIDE RECORDS SUMMARY | 2024-03-15 10:00 | XMS_ITS | Encounter Summary ---
Author Organization [place] [address] Care Team Providers Care Placement Officer Name Role Phone Thea Rubio MD Primary Care Provider +1- [phone] Reason for Visit * Reason Onset Date Comments Menstrual Problem 07/23/2017 Encounter Details Date Type Department Care Team (Late st Contact Info) Description 07/23/2017 Telephone [facility] [address] [place] [address] Thea Rubio MD [address] [place], [place] [id number] Menstrual Problem Social History Tobacco Use Types [...] 04/24/2024 10:45 AM EST Clinical Support [facility] [address] [place] [address] documented as of this encounter Goals Goal [...] menstruation documented in this encounter Care Teams Placement Officer Relationship Specialty Start Date End Date Thea Rubio MD PCP - General Family Medicine 09/13/14 07/16/22 documented as of this encounter
--- OUTSIDE RECORDS SUMMARY | 2024-03-15 10:00 | XMS_ITS | Encounter Summary ---
Author Organization [place] [address] Care Team Providers Care Geological Specialist Name Role Phone Thea Rubio MD Primary Care Provider +1- [phone] Reason for Referral * Echo (Routine) - Closed Specialty Diagnoses / Procedures Referred By Contac t Referred To Contact Radiology Diagnoses Atrial septal defect and mitral stenosis Celiac artery stenosis (HCC) Procedures EC ECHOCARDIOGRAM TRANSESOPHAGEAL W DOPPLER AND COLOR FLOW MAPPING SC ECHO TRANSESOPHAG R-T 2D W/PRB IMG ACQUISJ I&R SC DOPPLER ECHO HEART,COMPLETE SC DOPPLER COLOR FLOW VELOCITY MAP Migue Anne MD Phone: tel: fax: Referral ID Status Reason Start Date Expiration Date Visits Re quested Visits Authorized [id number] Closed 05/05/2017 05/05/2019 1 1 Reason for Visit * Echo (Routine) - Closed Specialty Diagnoses / Procedures Referred By Contac t Referred To Contact Radiology Diagnoses Atrial septal defect and mitral stenosis Celiac artery stenosis (HCC) Procedures EC ECHOCARDIOGRAM TRANSESOPHAGEAL W DOPPLER AND COLOR FLOW MAPPING SC ECHO TRANSESOPHAG R-T 2D W/PRB IMG ACQUISJ I&R SC DOPPLER ECHO HEART,COMPLETE SC DOPPLER COLOR FLOW VELOCITY MAP Migue Anne MD Phone: tel: fax: Referral ID Status Reason Start Date Expiration Date Visits Re quested Visits Authorized [id number] Closed 05/05/2017 05/05/2019 1 1 Encounter Details Date Type Department Care Team (Latest Contact Info) Description 05/20/2017 12:00 PM EST - 05/20/2017 11:59 PM EST Hospital Encounter [facility] Stress [facility] [address] [place] [address] Migue Anne MD [address] [place] [address] Atrial septal defect and mitral stenosis; Celiac [...] hours unless otherwise directed. 7. Call the Virtual Customer Assistant office for a follow up visit. 8. [...] discussed with patient and/or patient's legal authorized sales representative groceries. HISTORY AND PHYSICAL H&P is less than [...] Nausea And Vomiting Source Note - Migue Anne MD - 05/05/2017 8:30 AM EST Cardiology Follow Up Visit Name: Gardenia Childress : 1980 Referring Physician Thea Rubio MD Reason for Follow-up Chest Brennan, ASD Chief Complaint Patient presents with ??? Hospital Follow Up [place], [place] 04/23/17 HPI 37 y.o. female is seen [...] Clinical Support [facility] [address] [place] [address] documented as of this [...] Date 0.9 % NaCl infusion 1 05/19/2017 ovofrftm-wjzhidxfxi-yahrrhyj ne (CETACAINE; EXACTACAINE) spray 1 [place] 1 05/19/2017 fentaNYL (SUBLIMAZE) injection 25 mcg 1 flumazenil (ROMAZICON) injection 0.2 mg 1 0 05/19/2017 midazolam (VERSED) injection 1-2 mg 1 05/19 naloxone (NARCAN) injection 0.2 mg 1 2017 documented in this encounter Care Teams Geological Specialist Relationship Specialty Start Date End Date Thea Rubio MD PCP - General Family Medicine 09/13/14 07/16/22 documented as of this encounter
--- OUTSIDE RECORDS SUMMARY | 2024-03-15 10:00 | XMS_ITS | Encounter Summary ---
Author [place] [address] Care Team Providers Care Folder Seamer Automatic Name Role Phone Thea Rubio MD Primary Care Provider +1- [phone] Encounter Details Date Type Department Care Team (Latest Contact Info) Description 05/14/2017 12:03 PM EST - 05/14/2017 11:59 PM EST Hospital Encounter [facility] [address] [id number] [place], [facility] adult exam Discharge Disposition: Home or Self [...] EST Clinical Support [facility] [address] [place] [address] documented as of this encounter [...] - 4.200 mcIU/mL 05/14/2017 6:13 PM EST [facility] Blood Venipuncture / Unknown 05/14/2017 12:04 PM EST 05/14/2017 12:04 PM EST us Thea Rubio MD CHEMISTRY ORDERABLES Final Result Performing Organization Address City/State/[facility] Co de Phone Number [facility] [address] [place] [address] * LIPID SCREEN (05/14/2017 12:04 PM EST) Cholesterol 154 <=200 mg/dL 05/14/2017 6:13 PM EST [facility] Comment: < 200 ?Desirable 200 - 239 ? Borderline High >= 240 ?High Triglyceride 67 <=150 mg/dL 05/14/2017 6:13 PM EST [facility] Comment: < 150 ? Normal 150 - 199 ?Borderline High 200 - 499 ?High ??>= 500 ? Very High HDL 68 >=40 mg/dL 05/14/2017 6:13 PM EST [facility] Comment: ??> 60 ?Optimal 40 - 60 ?Acceptable ?? < 40 ?Low LDL Calculated 73 <=100 mg/dL 05/14/2017 6:13 PM EST [facility] Comment: < 100 ?Optimal 100 - 129 ? Near or above optimal 130 - 159 ? Borderline High 160 - 189 ? High >= 190 ?Very High Non-HDL-C Calculated 86 <=129 mg/dL 05/14/2017 6:13 PM EST [facility] Comment: <130 ?Desirable 130-159 Above Desirable 160-189 Borderline High 190-219 High >= 220 ??Very High Blood Venipuncture / Unknown 05/14/2017 12:04 PM EST 05/14/2017 12:04 PM EST us Thea Rubio MD CHEMISTRY ORDERABLES Final Result [facility] [address] [place] [address] * (ABNORMAL) COMPREHENSIVE METABOLIC PANEL (05/14/2017 12:04 PM EST) Sodium 141 136 - 145 mmol/L 05/14/2017 6:13 PM [facility] Potassium 3.9 3.5 - 5.0 mmol/L 05/14/2017 6:13 PM [facility] Chloride 108(H) 98 - 107 mmol/L 05/14/2017 6:13 PM [facility] Total CO2 21(L) 22 - 29 mmol/L 05/14/2017 6:13 PM [facility] Anion Gap 12 7 - 16 mmol/L 05/14/2017 6:13 PM [facility] Calcium 8.9 8.6 - 10.2 mg/dL 05/14/2017 6:13 PM [facility] Glucose Lvl 75 74 - 100 mg/dL 05/14/2017 6:13 PM [facility] BUN 11 6 - 20 mg/dL 05/14/2017 6:13 PM [facility] Creatinine 0.80 0.51 - 1.30 mg/dL 05/14/2017 6:13 PM [facility] Albumin 4.2 3.5 - 5.2 gm/dL 05/14/2017 6:13 PM [facility] Total Protein 7.0 6.4 - 8.3 gm/dL 05/14/2017 6:13 PM [facility] Bili Total 0.4 0.1 - 1.3 mg/dL 05/14/2017 6:13 PM [facility] ALT 11 <=41 IU/L 05/14/2017 6:13 PM [facility] AST 15 <=40 IU/L 05/14/2017 6:13 PM [facility] Alk Phos 67 35 - 104 IU/L 05/14/2017 6:13 PM [facility] GFR Afr Am 110 mL/min/1.7 3 m2 05/14/2017 6:13 PM [facility] GFR Non Afr Am 96 mL/min/1.7 3 m2 05/14/2017 6:13 PM [facility] Comment: GFR Afr Am and [...] Thea Rubio MD CHEMISTRY ORDERABLES Final Result [facility] [address] [place] [address] documented in this encounter Visit Diagnoses Diagnosis Well adult exam Routine general medical examination at a health care facility documented in this encounter Care Teams Folder Seamer Automatic Relationship Specialty Start Date End Date Thea Rubio MD PCP - General Family Medicine 09/13/14 07/16/22 documented as of this encounter
--- OUTSIDE RECORDS SUMMARY | 2024-03-15 10:00 | XMS_ITS | Encounter Summary ---
Author Organization [place] [address] Care Team Providers Care Territory Sales Consultant Name Role Phone Thea Rubio MD Primary Care Provider +1- [phone] Reason for Visit * Reason Comments Atrial Septal Defect F/u WAYNE with Dr Reggie michaud * Consultation (Routine) - Closed Specialty Diagnoses / Procedures Referred By Contac t Referred To Contact Internal Medicine-Cardiovascular Disease / Cardiology Diagnoses Dayana pt- needs to discuss possible ASD closure Procedures OFFICE VISIT Thea Rubio MD Phone: tel: fax: Genaro Ibarra MD [address] [place] [address] Phone: tel: fax: Referral ID Status Reason Start Date Expiration Date Visits Re quested Visits Authorized [id number] Closed 06/02/2017 06/02/2018 1 99 Encounter Details Date Type Department Care Team (Late st Contact Info) Description 06/20/2017 3:20 PM EST Office Visit [facility] [address] [place] [address] Genaro Ibarra MD [address] [place] [address] Atrial septal defect (Primary Dx) Social History [...] Description 04/24/2024 10:45 AM EST Clinical Support [address] [address] documented as of this encounter Goals Goal [...] documented as of this encounter Care Teams Territory Sales Consultant Relationship Specialty Start Date End Date hTea Rubio MD PCP - General Family Medicine 09/13/14 07/16/22 documented as of this encounter
--- OUTSIDE RECORDS SUMMARY | 2024-03-15 10:00 | XMS_ITS | Encounter Summary ---
Author Organization [place] [address] Care Team Providers Care Lead Maintenance Technician Name Role Phone Thea Rubio MD Primary Care Provider +1- [phone] Reason for Visit * Reason Comments Follow-up H & P Scheduled with [facility] on 07/09/17 * Consultation (Routine) - Closed Specialty Diagnoses / Procedures Referred By Amalia tuttle Referred To Contact Internal Medicine-Cardiovascular Disease / Cardiology Diagnoses [facility] DC 04/23/17 Procedures OFFICE VISIT Thea Rubio MD Phone: tel: fax: Migue Anne MD [address] [place] [address] [place] [address] Phone: tel: fax: Referral ID Status Reason Start Date Expiration Date Visits Re quested Visits Authorized [id number] Closed 05/05/2017 05/05/2018 1 99 Encounter Details Date Type Department Care Team (Late st Contact Info) Description 07/07/2017 8:30 AM EDT Office Visit [facility] [address] [place] [address] Migue Anne MD [address] [place] [address] [place] [address] Atrial septal defect (Primary Dx); [...] Clinical Support [facility] [address] [place] [address] documented as of this encounter Goals Goal [...] type documented in this encounter Care Teams Lead Maintenance Technician Relationship Specialty Start Date End Date Thea Rubio MD PCP - General Family Medicine 09/13/14 07/16/22 documented as of this encounter
--- OUTSIDE RECORDS SUMMARY | 2024-03-15 10:00 | XMS_ITS | Encounter Summary ---
Author Organization [place] [address] Care Team Providers Care Political Researcher Name Role Phone Thea Rubio MD Primary Care Provider +1- [phone] Reason for Visit * Reason Comments Chest Pain hospital follow up Encounter Details Date Type Department Care Team (Late st Contact Info) Description 04/28/2017 10:00 AM EST [facility] [address] [place] [address] Thea Rubio MD [address] [place] [address] Precordial pain (Primary Dx); ASD (atrial septal [...] right ventricular dilatation. Prominent right atrial size. [id number] shunt seen at the atrial level. Shunt [...] ck pap 6 mos Overview: Mar 2017 [facility] Documentation Recent hospital discharge summary and patient instructions were reviewed with . Discharge medications were discussed and reconciled with her. [facility] Documentation Medication Compliance: Compliant all the time Understanding of Current Medications: Good Medication Compliance Barriers: None or N/A Self-Management Tools: N/A, no chronic conditions Self-Management Ability: Good Willingness to Adopt Healthy Behaviors: Good Potential Barriers to completing treatment plans today: No significant barriers [facility] Flowsheet was completed/reviewed as part of today's visit. Educated patient and spouse regarding the diagnosis, medication/treatment, goals, self-management tools and instructions based on their care plan. They verbalized understanding of the education givenon the After Visit Summary [AVS] for today's visit. A copy of the AVS was provided either in writing and/or via [employer]. A new medicine was not prescribed on [...] 7 days. Code Complexity Face to face 84653 High complexity within 7 days 16673 High complexity 8-14 days 51583 Medium complexity Within 14 days documented in this encounter Miscellaneous Notes * Patient Instructions - Thea Rubio MD - 04/28/2017 10:00 AM EST If your chest pain recurs, try Pepcid complete documented in this encounter Plan of Treatment Upcoming Encounters Date Type Department Care Team (Late st Contact Info) Description 04/24/2024 10:45 AM EST Clinical Support [facility] [address] [place] [address] documented as of this encounter [...] HPV documented in this encounter Care Teams Political Researcher Relationship Specialty Start Date End Date Thea Rubio MD PCP - General Family Medicine 09/13/14 07/16/22 documented as of this encounter
--- OUTSIDE RECORDS SUMMARY | 2024-03-15 10:00 | XMS_ITS | Encounter Summary ---
Author Organization [place] [address] Care Team Providers Care Retail Special Event Associate Name Role Phone Thea Rubio MD Primary Care Provider +1- [phone] Reason for Visit * Reason Comments Hospital Follow Up HFU, DC 04/23/17 * Consultation (Routine) - Closed Specialty Diagnoses / Procedures Referred By Amalia tuttle Referred To Contact Internal Medicine-Cardiovascular Disease / Cardiology Diagnoses [facility] DC 04/23/17 Procedures OFFICE VISIT Thea Rubio MD Phone: tel: fax: Migue Sidhu MD [address] [place] [address] [place] [address] Phone: tel: fax: Referral ID Status Reason Start Date Expiration Date Visits Re quested Visits Authorized [id number] Closed 05/05/2017 05/05/2018 1 99 Encounter Details Date Type Department Care Team (Late st Contact Info) Description 05/05/2017 8:30 AM EST Office Visit [facility] [address] [place] [address] Migue Sidhu MD [address] [place] [address] [place] [address] Chest pain, unspecified type (Primary [...] presents with ??? Hospital Follow Up [place], [place] 04/23/17 HPI 37 y.o. female is seen [...] Support [facility] [address] [place] [address] documented as of this encounter Goals Goal [...] defect documented in this encounter Care Teams Retail Special Event Associate Relationship Specialty Start Date End Date Thea Rubio MD PCP - General Family Medicine 09/13/14 07/16/22 documented as of this encounter
--- OUTSIDE RECORDS SUMMARY | 2024-03-15 10:00 | XMS_ITS | Encounter Summary ---
Author Organization [place] [address] Care Team Providers Care Supervisor Gelatin Plant Name Role Phone Thea Rubio MD Primary Care Provider +1- [phone] Reason for Visit * Reason Onset Date Comments Medication Management 08/07/2017 Encounter Details Date Type Department Care Team (Late st Contact Info) Description 08/07/2017 Telephone [facility] [address] [place] [address] Thea Rubio MD [address] [place], [place] [id number] Medication Management Social History Tobacco Use Types [...] with pt, expressed my condolences. of massive MT. Discussed fact that med can be habit [...] 04/24/2024 10:45 AM EST Clinical Support [facility] [address] [place] [address] documented as of this encounter Goals Goal Patient Goal Type Associated Problems Recent Progress Patient-Stated? Author Maintain a healthy diet, exercise regularly and maintain an ideal body weight General No Thea Rubio MD Stay Tobacco Free Lifestyle No Thea Rubio MD documented as of this encounter Visit Diagnoses Not on filedocumented in this encounter Care Teams Supervisor Gelatin Plant Relationship Specialty Start Date End Date Thea Rubio MD PCP - General Family Medicine 09/13/14 07/16/22 documented as of this encounter
--- OUTSIDE RECORDS SUMMARY | 2024-03-15 10:00 | XMS_ITS | Encounter Summary ---
Author Organization [place] [address] Care Team Providers Care Computer Systems Support Specialist Name Role Phone Thea Rubio MD Primary Care Provider +1- [phone] Reason for Visit * Reason Onset Date Comments Hospital Follow Up 04/24/2017 Care Management - Chart Review 04/24/2017 Encounter Details Date Type Department Care Team (Late st Contact Info) Description 04/24/2017 Patient Outreach [facility] [address] [place] [address] Thea Rubio MD [address] [place], [place] [id number] Hospital Follow Up; Care Management - Chart [...] 10:45 AM EST Clinical Support [facility] [address] [place] [address] documented as of this encounter Goals Goal Patient Goal Type Associated Problems Recent Progress Patient-Stated? Author Maintain a healthy diet, exercise regularly and maintain an ideal body weight General No Thea Rubio MD Stay Tobacco Free Lifestyle No Thea Rubio MD documented as of this encounter Visit Diagnoses Not on filedocumented in this encounter Care Teams Computer Systems Support Specialist Relationship Specialty Start Date End Date Thea Rubio MD PCP - General Family Medicine 09/13/14 07/16/22 documented as of this encounter
--- OUTSIDE RECORDS SUMMARY | 2024-03-15 10:00 | XMS_ITS | Encounter Summary ---
Author Organization [place] [address] Care Team Providers Care Program Administrator Name Role Phone Thea Rubio MD Primary Care Provider +1- [phone] Reason for Referral * Echo (Routine) - Closed Specialty Diagnoses / Procedures Referred By Amalia tuttle Referred To Contact Radiology Diagnoses ASD (atrial septal defect) H/O Amplatzer atrial septal defect closure Procedures ECHOCARDIOGRAM [employer] Myrtle [place] [address] Phone: tel: fax: Referral ID Status Reason Start Date Expiration Date Visits Re quested Visits Authorized [id number] Closed 07/18/2017 07/19/2019 1 1 Reason for Visit * Reason Comments Hospital Follow Up * Consultation (Routine) - Closed Specialty Diagnoses / Procedures Referred By Amalia tuttle Referred To Contact Nurse Practitioner / Cardiology Diagnoses hosp follow up Procedures OFFICE VISIT Thea Rubio MD Phone: tel: fax: Myrtle Vincent APRN Referral ID Status Reason Start Date Expiration Date Visits Re quested Visits Authorized [id number] Closed 07/17/2017 07/17/2018 1 99 Encounter Details Date Type Department Care Team (Late st Contact Info) Description 07/17/2017 10:45 AM EDT Office Visit [facility] [place] [facility] [address] [place] [address] Myrtle Vincent APRN H/O Amplatzer [...] 04/24/2024 10:45 AM EST Clinical Support [facility] [address] [place] [address] documented as of this encounter Goals Goal [...] septum without evidenceof residual shunting. Myrtle Vincent DIRECTOR [employer] IMG ECHO ORDERABLES Final Resu lt documented [...] documented as of this encounter Care Teams Program Administrator Relationship Specialty Start Date End Date Thea Rubio MD PCP - General Family Medicine 09/13/14 07/16/22 documented as of this encounter
--- OUTSIDE RECORDS SUMMARY | 2024-03-15 10:00 | XMS_ITS | Encounter Summary ---
Author Organization [place] [address] Care Team Providers Care Building Equipment Operator Name Role Phone Thea Rubio MD Primary Care Provider +1- [phone] Reason for Visit * Reason Onset Date Comments Medication Problem 05/21/2017 Encounter Details Date Type Department Care Team (Late st Contact Info) Description 05/21/2017 Telephone [facility] [place] [address] [place] [address] Migue Anne MD [address] [place] [address] Medication Problem Social History Tobacco Use Types [...] Sandoval RN - 05/21/2017 10:42 AM EST [facility] for more information * Telephone Encounter - [...] Support [facility] [address] [place] [address] documented as of this encounter Goals Goal Patient Goal Type Associated Problems Recent Progress Patient-Stated? Author Maintain a healthy diet, exercise regularly and maintain an ideal body weight General No Thea Rubio MD Stay Tobacco Free Lifestyle No Thea Rubio MD documented as of this encounter Visit Diagnoses Not on filedocumented in this encounter Care Teams Building Equipment Operator Relationship Specialty Start Date End Date Teha Rubio MD PCP - General Family Medicine 09/13/14 07/16/22 documented as of this encounter
--- OUTSIDE RECORDS SUMMARY | 2024-03-15 10:00 | XMS_ITS | Encounter Summary ---
Author Organization [place] [address] Care Team Providers Care Hip Hop Artist Name Role Phone Thea Rubio MD Primary Care Provider +1- [phone] Encounter Details Date Type Department Care Team (Latest Contact Info) Description 07/04/2017 4:19 PM EDT - 07/04/2017 11:59 PM EDT Hospital Encounter [facility] [address] [place] [address] Preop testing; ASD (atrial septal [...] Clinical Support [facility] [address] [place] [address] documented as of this [...] - 145 mmol/L 07/04/2017 8:15 PM EDT [facility] Potassium 4.0 3.5 - 5.0 mmol/L 07/04/2017 8:15 PM EDT [facility] Chloride 105 98 - 107 mmol/L 07/04/2017 8:15 PM EDT [facility] Total CO2 23 22 - 29 mmol/L 07/04/2017 8:15 PM EDT [facility] Anion Gap 12 7 - 16 mmol/L 07/04/2017 8:15 PM EDT [facility] Calcium 8.9 8.6 - 10.2 mg/dL 07/04/2017 8:15 PM EDT [facility] Glucose Lvl 85 74 - 100 mg/dL 07/04/2017 8:15 PM EDT [facility] BUN 6 6 - 20 mg/dL 07/04/2017 8:15 PM EDT [facility] Creatinine 0.79 0.51 - 1.30 mg/dL 07/04/2017 8:15 PM EDT [facility] GFR Afr Am 112 mL/min/1.7 3 m2 07/04/2017 8:15 PM EDT [facility] GFR Non Afr Am 97 mL/min/1.7 3 m2 07/04/2017 8:15 PM EDT [facility] Comment: GFR Afr [...] Ibarra MD CHEMISTRY ORDERABLES Final Res ult [facility] [address] [place] [address] * PT / INR (07/04/2017 4:26 PM EDT) PT 12.4 9.7 - 12.5 second(s) 07/04/2017 4:48 PM EDT [facility] INR 1.06 0.84 - 1.08 no units 07/04/2017 4:48 PM EDT [facility] Comment: Level of Therapy ? Indications ?Target INR Range Standard Dose Treatment and prophylaxis of venous ? 2.0 - 3.0 ? thrombosis, pulmonary embolism High Dose ? High risk patients with mechanical ? 2.5 - 3.5 ? heart valves Blood Venipuncture / Unknown 07/04/2017 4:26 PM EDT 07/04/2017 4:26 PM EDT us Genaro Ibarra MD HEMATOLOGY ORDERABLES Final Re sult [facility] [address] [place] [address] * CBC WITH DIFF (07/04/2017 4:26 PM EDT) WBC 7.7 4.0 - 11.0 x10(3)/mcL 07/04/2017 4:42 PM EDT [facility] RBC 4.54 3.80 - 5.10 x10(6)/mcL 07/04/2017 4:42 PM EDT [facility] Hgb 13.3 12.0 - 15.6 gm/dL 07/04/2017 4:42 PM EDT [facility] Hct 39.4 35.7 - 45.9 % 07/04/2017 4:42 PM EDT [facility] MCV 86.8 82.5 - 99.8 fL 07/04/2017 4:42 PM EDT [facility] MCH 29.3 27.0 - 34.3 pg 07/04/2017 4:42 PM EDT [facility] MCHC 33.7 32.1 - 35.3 gm/dL 07/04/2017 4:42 PM EDT [facility] RDW 13.2 11.5 - 15.0 % 07/04/2017 4:42 PM EDT [facility] Platelet 258 144 - 423 x10(3)/mcL 07/04/2017 4:42 PM EDT [facility] MPV 8.0 6.8 - 10.8 fL 07/04/2017 4:42 PM EDT [facility] Neut Percent 60.2 % 07/04/2017 4:42 PM EDT [facility] Lymph Percent 26.3 % 07/04/2017 4:42 PM EDT [facility] Baxter Percent 7.5 % 07/04/2017 4:42 PM EDT [facility] Eos Percent 5.4 % 07/04/2017 4:42 PM EDT [facility] Baso Percent 0.6 % 07/04/2017 4:42 PM EDT [facility] Neut # 4.6 1.8 - 7.7 x10(3)/[facility] 07/04/2017 4:42 PM EDT [facility] Lymph # 2.0 0.6 - 4.8 x10(3)/[facility] 07/04/2017 4:42 PM EDT [facility] Baxter # 0.6 0.0 - 1.3 x10(3)/[facility] 07/04/2017 4:42 PM EDT [facility] Eos# 0.4 0.0 - 0.5 x10(3)/[facility] 07/04/2017 4:42 PM EDT [facility] Baso # 0.0 0.0 - 0.2 x10(3)/[facility] 07/04/2017 4:42 PM EDT [facility] Blood Venipuncture / Unknown 07/04/2017 4:26 PM EDT 07/04/2017 4:26 PM EDT us Genaro Ibarra MD HEMATOLOGY ORDERABLES Final Re sult [facility] [address] [id number] documented in this encounter Visit Diagnoses Diagnosis Preop testing Preoperative examination, unspecified ASD (atrial septal defect) Ostium secundum type atrial septal defect documented in this encounter Care Teams Hip Hop Artist Relationship Specialty Start Date End Date Thea Rubio MD PCP - General Family Medicine 09/13/14 07/16/22 documented as of this encounter
--- OUTSIDE RECORDS SUMMARY | 2024-03-15 10:00 | XMS_ITS | Encounter Summary ---
Author Organization [place] [address] Care Team Providers Care Cullet Washer Name Role Phone Thea Rubio MD Primary Care Provider [phone]- [phone] Reason for Visit * Auth/Cert/Inpt Specialty Diagnoses / Procedures Referred By Contac t Referred To Contact Diagnoses Atrial septal defect Atrial septal defect [Q21.1] Procedures TX PERC CLOS,RIK INTERATRIAL COMMUN W/IMPL ATRIAL SEPTAL DEFECT CLOSURE Referral ID Status Reason Start Date Expiration Date Visits Re quested Visits Authorized [id number] 1 1 Encounter Details Date Type Department Care Team (Late st Contact Info) Description 07/09/2017 1:00 PM EDT - 07/09/2017 3:00 PM EDT Surgery [place] [address] Genaro Ibarra MD [address] [place] [address] PERCUTANEOUS CLOSURE PATENT FORAMEN OVALE/ ATRIAL SEPTAL DEFECT (PEST CONTROL WORKER HELPER) Surgery Details Date/Time Status Location OR Service Patient Class Case Class Case Type Trauma Case? 07/09/2017 1:00 PM Posted [facility] CARDIAC CANOE INSPECTOR IMAGING ED[facility] CCL 3 Cardiac Same Day Surgery N/A Panel 1 Procedure LRB Anes Op Region Wound Class Comments PERCUTANEOUS CLOSURE PATENT FORAMEN OVALE/ ATRIAL SEPTAL DEFECT (PEST CONTROL WORKER HELPER) N/A Moderate Sedation ATRIAL SEPTAL DEFECT CLOSURE [...] this encounter Discharge Summaries * Elver Jones, SALES SOLUTIONS REPRESENTATIVE - 07/10/2017 10:09 AM EDT [place] [facility] [...] These medications were sent to [facility] [address] [place] [address], [place] [address] - [address] - [phone], [place] [address] ?? Aspirin 325 mg Tbec ?? clopidogrel 75 mg Tab Follow Up: Migue Anne MD [address] [place] [address] Schedule an appointment as soon as [...] to your normal activities on {Time; dates multiple:26513}. You may return to work on {Time; dates multiple:20930}. Do NOT stop taking ASPIRIN and PLAVIX [...] EMERGENCY ROOM. PAIN ASSESSMENT Location: Condition: {Desc; acute/chronic/recent:60286} Current Pain Intensity: {Desc; severity w/0-10 scale:5014} Pain Management: {PAIN MANAGEMENT INSTRUCTIONS:76567281} IF PAIN INTENSIFIES OR PAIN IS UNRELIEVED WITH MEDICATIONS ORDERED, CALL YOUR PHYSICIAN. MEDICATIONS: *Contact your physician before resuming any medication from home not listed in the discharge medication instruction sheet. PRESCRIPTIONS: {Prescriptions for Discharge:66640262} FOLLOW-UP TO DOCTOR: {IP FOLLOW UP VISIT:96542595} ADDITIONAL INSTRUCTIONS: * Smoking is hazardous to [...] more often than directed. Talk to your chainer regarding the use of this medicine in [...] for pain, tell your doctor or health career placement specialist if the pain lasts more than 10 [...] if prescribed by your doctor or health career placement specialist. Do not take aspirin or aspirin-like medicines [...] should report to your doctor or health career placement specialist as soon as possible: -allergic reactions like [...] attention (report to your doctor or health career placement specialist if they continue or are bothersome): -diarrhea or constipation -headache -nausea, vomiting -stomach gas, heartburn This list may not describe all possible side effects. Call your doctor for medical advice about side effects. You may report side effects to FDA at 5-954-HLT-4609. Where should I keep my medicine? Keep [...] take. The two forms of aspirin are: Luj-risxnvr-pbnemr. This type of aspirin does not have a coating and is absorbed quickly. Pku-fpthdei-fumexz aspirin is usually recommended for people with chest pain. This type of aspirin also comesin a chewable form. Enteric-coated. This type of aspirin has a special coating that releases the medicine very slowly. Enteric-coated aspirin causes less stomach upset than ctu-axdxgtn-fjtojs aspirin. This type of aspirin should not [...] 03/20/2009 Document Revised: 04/28/2015 Document Reviewed: 07/13/2014 [employer] Patient Education ??2016 [employer]. -stomach or intestinal ulcers -stroke or transient [...] more often than directed. Talk to your chainer regarding the use of this medicine in [...] this medicine? Visit your doctor or health career placement specialist for regular check ups. Do not stop taking your medicine unless your doctor tells you to. Notify your doctor or health career placement specialist and seek emergency treatment if you develop breathing problems; changes in vision; chest pain; severe, sudden headache; pain, swelling, warmth in the leg; trouble speaking; sudden numbness or weakness of the face, arm or leg. These can be signs that your condition has gotten worse. If you are going to have surgery or dental work, tell your doctor or health career placement specialist that you are taking this medicine. Certain genetic factors may reduce the effect of this medicine. Your doctor may use genetic tests to determine treatment. What side effects may I notice from receiving this medicine? Side effects that you should report to your doctor or health career placement specialist as soon as possible: -allergic reactions like [...] attention (report to your doctor or health career placement specialist if they continue or are bothersome): -constipation or diarrhea -headache -pain in back or joints -stomach upset This list may not describe all possible side effects. Call your doctor for medical advice about side effects. You may report side effects to FDA at 9-280-JLW-2265. Where should I keep my medicine? Keep [...] Self Long Term documented in this encounter Progress Notes * [...] Soriano MD - 07/10/2017 9:56 AM EDT [facility] Patient: Gardenia Childress Primary Screw Cutter: Dr Anne She has been in the [...] dry. No new rashes Left groin unremarkable Paper Stripper: b SR Vitals: Vitals: 07/09/17 2215 07/10/17 [...] Date of visit 07/09/17 Visit Type Initial [facility] Needs Pastoral care brochure * Jag Lombardo [...] ) Agency/Facility Options Offered, list provided N/A [facility] Financial Disclosure completed? N/A Follow-up Visit Follow-up Needed? Complete * Brittany Saucedo RN - 07/09/2017 5:10 PM EDT Right and left femoral sheaths removed. Pressure applied for 15 minutes. No complications. New dressings applied. CDI. No bleeding. No hematoma. BR restrictions reinforced. Verbalizes understanding. Will monitor. * Brittany Saucedo RN - 07/09/2017 4:07 PM EDT Pt arrived [facility] room [facility] from [facility] via stretcher. VSS. Right and left [...] patient and/or patient's legal authorized sales representative graphic art. HISTORY AND PHYSICAL H&P is completed and [...] fauces visible) Cath PCI Bleeding Risk Score Travel Rn Or; <=25 mild, 26-65 mod, >65 high: 35 [...] Description 04/24/2024 10:45 AM EST Clinical Support [address] [address] documented as of this encounter Goals Goal [...] LR POC Routine 07/09/2017 1:46 PM EDT CANOE INSPECTOR HEMODYNAMIC WAVEFORMS Routine 07/09/2017 1:34 PM EDT POCT URINE Routine 07/09/2017 11:19 AM EDT documented in this encounter Results * SCANNED RHYTHM STRIPS (07/14/2017 7:59 PM EDT) Anatomical Region Laterality Modality Other 07/14/2017 7:59 PM EDT us Unknown Unknown IMG ECG ORDERABLES Final Result * EC ECHOCARDIOGRAM LIMITED (07/10/2017 12:31 PM EDT) [facility] Ejection Fraction 60-65 % PYRAMIS [...] - 169 second(s) 07/09/2017 5:17 PM EDT [facility] Blood BLOOD SPECIMEN / Unknown 07/09/2017 4:51 PM EDT 07/09/2017 5:17 PM EDT us Genaro Ibarra MD POINT OF CARE TEST ORDERABLES Final Result Performing Organization Address [facility] Co de Phone Number [place] [phone] * (ABNORMAL) ACTIVATED CLOTTING TIME LR POC (07/09/2017 3:51 PM EDT) ACT-LR 186(H) 89 - 169 second(s) 07/09/2017 3:55 PM EDT [facility] Blood BLOOD SPECIMEN / Unknown 07/09/2017 3:51 PM EDT 07/09/2017 3:55 PM EDT us Genaro Ibarra MD POINT OF CARE TEST ORDERABLES Final Result Performing Organization Address City/[facility] Co de Phone Number [address] [address] * XR CHEST AP PORTABLE (07/09/2017 3:22 [...] EDT Successful percutaneous ASD closure Right Heart [place] catheter inserted via the right femoral vein and advanced through right heart into pulmonary artery. Right atrial pressure is normal. There was no Pulmonary Hypertension. Pulmonary vascular resistance was normal us Genaro Ibarra MD CARDIAC CATH ORDERABLES Final Result Performing Organization Address City/[facility] Co de Phone Number [facility] * (ABNORMAL) ACTIVATED CLOTTING TIME LR POC (07/09/2017 1:59 PM EDT) ACT-LR 344(H) 89 - 169 second(s) 07/09/2017 2:14 PM EDT [facility] Blood BLOOD SPECIMEN / Unknown 07/09/2017 1:59 PM EDT 07/09/2017 2:14 PM EDT us Genaro Ibarra MD POINT OF CARE TEST ORDERABLES Final Result Performing Organization Address City/[facility]/ZIP Co de Phone Number [facility] [address] [place] [address] * (ABNORMAL) ACTIVATED CLOTTING TIME LR POC (07/09/2017 1:46 PM EDT) [facility] ACT-LR 394(H) 89 - 169 second(s) 07/09/2017 2:14 PM EDT [facility] Blood BLOOD SPECIMEN / Unknown 07/09/2017 1:46 PM EDT 07/09/2017 2:14 PM EDT us Genaro Ibarra MD POINT OF CARE TEST ORDERABLES Final Result Performing Organization Address [facility] de Phone Number [facility] [address] [place] [address] * CANOE INSPECTOR HEMODYNAMIC WAVEFORMS (07/09/2017 1:34 PM EDT) 07/09/2017 1:34 PM EDT us Genaro Ibarra MD CARDIAC CATH ORDERABLES Final Result Performing Organization Address [facility] Co de Phone Number [facility] [address] [place] [address] * POCT URINE (07/09/2017 11:19 AM EDT) [facility] Preg Test, Ur negative POS/NEG [facility] Lot Number [id number] [facility] Expiration Date 2018-06-18 [facility] SeriAl # [facility] Control Line Yes YES/NO [facility] 07/09/2017 11:1 9 AM EDT us Genaro Ibarra MD POINT OF CARE TEST ORDERABLES Final Result Performing Organization Address [facility] Co de Phone Number [facility] [address] [place] [address] documented in this encounter Visit [...] Provider: Brittany Saucedo RN)2243 (Stopped - Provider: Ulysess Ramos RN) 0556 (IV Started - Provider: [...] (IV Stopped by Other - Provider: Mady aCstro, RN) PRN Medication Order 07/08/2017 07/09/2017 07/10/2017 [...] Meghan Nichols, IVETTE)1333 (Given - Provider: Meghan Nihcols RN)1341 (Given - Provider: Meghan Nichols, IVETTE)1342 [...] 07/09/2017 documented in this encounter Care Teams Cullet Washer Relationship Specialty Start Date End Date Thea Rubio MD PCP - General Family Medicine 09/13/14 07/16/22 documented as of this encounter
--- OUTSIDE RECORDS SUMMARY | 2024-03-15 10:00 | XMS_ITS | Encounter Summary ---
Author Organization [place] [address] Care Team Providers Care Link Assembler Name Role Phone Thea Rubio MD Primary Care Provider +1- [phone] Caty Porter RN Unavailable [phone] Reason for Visit * Reason Onset Date Comments Care Management - Chart Review 07/11/2017 Encounter Details Date Type Department Care Team (Late Contact Info) Description 07/11/2017 Patient Outreach [facility] [address] [place] [address] Lino Castro, RN Care Management - Chart [...] Clinical Support [facility] [address] [facility] [place] [address] documented as of this encounter Goals Goal Patient Goal Type Associated Problems Recent Progress Patient-Stated? Author Maintain a healthy diet, exercise regularly and maintain an ideal body weight General No Thea Rubio MD Stay Tobacco Free Lifestyle No Thea Rubio MD documented as of this encounter Visit Diagnoses Not on filedocumented in this encounter Care Teams Link Assembler Relationship Specialty Start Date End Date Thea Rubio MD PCP - General Family Medicine 09/13/14 07/16/22 Caty Porter RN [address] [place] [address] Health Advocate Registered Nurse 07/11/17 07/11/17 documented as of this encounter
--- OUTSIDE RECORDS SUMMARY | 2024-03-15 10:00 | XMS_ITS | Encounter Summary ---
Author Organization [place] [address] Care Team Providers Care Lumber Tripper Name Role Phone Thea Rubio MD Primary Care Provider [phone]- [phone] Reason for Visit * Reason Onset Date Comments Other 06/24/2017 Encounter Details Date Type Department Care Team (Late st Contact Info) Description 06/24/2017 Telephone [facility]P [facility] [place] [address] [place] [address] Genaro Ibarra MD [address] [place] [address] Other Social History Tobacco Use Types Packs/Day [...] Clinical Support [facility] [address] [place] [address] documented as of this encounter Goals Goal [...] - 145 mmol/L 07/04/2017 8:15 PM EDT [facility] Potassium 4.0 3.5 - 5.0 mmol/L 07/04/2017 8:15 PM EDT [facility] Chloride 105 98 - 107 mmol/L 07/04/2017 8:15 PM EDT [facility] Total CO2 23 22 - 29 mmol/L 07/04/2017 8:15 PM EDT [facility] Anion Gap 12 7 - 16 mmol/L 07/04/2017 8:15 PM EDT [facility] Calcium 8.9 8.6 - 10.2 mg/dL 07/04/2017 8:15 PM EDT [facility] Glucose Lvl 85 74 - 100 mg/dL 07/04/2017 8:15 PM EDT [facility] BUN 6 6 - 20 mg/dL 07/04/2017 8:15 PM [facility] Creatinine 0.79 0.51 - 1.30 mg/dL 07/04/2017 8:15 PM [facility] GFR Afr Am 112 mL/min/1.7 3 m2 07/04/2017 8:15 PM [facility] GFR Non Afr Am 97 mL/min/1.7 3 m2 07/04/2017 8:15 PM [facility] Comment: GFR Afr Am and GFR [...] Ibarra MD CHEMISTRY ORDERABLES Final Res ult [place] [id number] documented in this encounter Visit Diagnoses Diagnosis Preop testing- Primary Preoperative examination, unspecified ASD (atrial septal defect) Ostium secundum type atrial septal defect documented in this encounter Orders Lab Orders Without Results Count Last Ordered D ate First Ordered Date CBC 1 06/26/2017 documented in this encounter Care Teams Lumber Tripper Relationship Specialty Start Date End Date Thea Rubio MD PCP - General Family Medicine 09/13/14 07/16/22 documented as of this encounter
--- OUTSIDE RECORDS SUMMARY | 2024-03-15 10:00 | XMS_ITS | Encounter Summary ---
Author Organization [place] [address] Care Team Providers Care Wash Tank Tender Name Role Phone Thea Rubio MD Primary Care Provider [phone]- [phone] Caty Porter RN Unavailable [phone] Reason for Visit * Reason Onset Date Comments Hospital Follow Up 07/11/2017 Encounter Details Date Type Department Care Team (Late st Contact Info) Description 07/11/2017 Telephone [facility]P [facility] [address] [place] [phone] Migue Anne MD [address] [place] [address] Hospital Follow Up Social History Tobacco Use [...] should be seen * Telephone Encounter - Ena Stephen, Clerical Staff - 07/11/2017 12:03 PM EDT Pt released from hospital on 07.10.17-needs a followup with dr anne. documented in this encounter Plan of Treatment Upcoming Encounters Date Type Department Care Team (Late st Contact Info) Description 04/24/2024 10:45 AM EST Clinical Support [facility] [address] [place] [address] documented as of this encounter Goals Goal Patient Goal Type Associated Problems Recent Progress Patient-Stated? Author Maintain a healthy diet, exercise regularly and maintain an ideal body weight General No Thea Rubio MD Stay Tobacco Free Lifestyle No Thea Rubio MD documented as of this encounter Visit Diagnoses Not on filedocumented in this encounter Care Teams Wash Tank Tender Relationship Specialty Start Date End Date Thea Rubio MD PCP - General Family Medicine 09/13/14 07/16/22 Caty Porter RN [address] [place] [address] Health Advocate Registered Nurse 07/11/17 07/11/17 documented as of this encounter
--- OUTSIDE RECORDS SUMMARY | 2024-03-15 10:01 | XMS_ITS | Encounter Summary ---
Author Organization [place] [address] Care Team Providers Care Inspector Of Weights And Measures Name Role Phone Thea Rubio MD Primary Care Provider [phone]- [phone] Reason for Visit * Reason Onset Date Comments Medication Refill 01/08/2016 Encounter Details Date Type Department Care Team (Late st Contact Info) Description 01/08/2016 Telephone [facility] [address] [place] [address] Thea Rubio MD [address] [place], [place] [id number] Medication Refill Social History Tobacco Use Types [...] 04/24/2024 10:45 AM EST Clinical Support [facility] [address] [place] [address] documented as of this encounter Visit Diagnoses [...] as of this encounter Care Teams Inspector Of Weights And Measures Relationship Specialty Start Date End Date Thea Rubio MD PCP - General Family Medicine 09/13/14 07/16/22 documented as of this encounter
--- OUTSIDE RECORDS SUMMARY | 2024-03-15 10:01 | XMS_ITS | Encounter Summary ---
Author Organization [place] [address] Care Team Providers Care Manager Mountain Name Role Phone Thea Rubio MD Primary Care Provider [phone]- [phone] Reason for Visit * Reason Comments Breast Mass left Encounter Details Date Type Department Care Team (Late st Contact Info) Description 10/25/2015 4:00 PM EDT Office Visit [facility] [address] [place] [address] Thea Rubio MD [address] [place] [address] Fibrocystic disease of both breasts (Primary Dx) [...] encounter Miscellaneous Notes * Patient Instructions - Teha Rubio MD - 10/25/2015 4:59 PM EDT [...] needed. Your health care provider may recommend nqkw-svp-tvshqjz pain relievers to help lessen pain or [...] has always been there. ? Only take vver-pux-geecauq or prescription medicine as directed by your [...] Document Reviewed: 09/26/2013 ExitCare?? Patient Information ??2015 [employer]. This information is not intended to replace advice given to you by your health care provider. Make sure you discuss any questions you have with your health care provider. documented in this encounter Plan of Treatment Upcoming Encounters Date Type Department Care Team (Late st Contact Info) Description 04/24/2024 10:45 AM EST Clinical Support [facility] [address] [place] [phone] documented as of this encounter Visit Diagnoses Diagnosis Fibrocystic disease of both breasts- Primary documented in this encounter Care Teams Manager Mountain Relationship Specialty Start Date End Date Thea Rubio MD PCP - General Family Medicine 09/13/14 07/16/22 documented as of this encounter
--- OUTSIDE RECORDS SUMMARY | 2024-03-15 10:01 | XMS_ITS | Encounter Summary ---
Author Organization [place] [address] Care Team Providers Care Rn Provider Relations Name Role Phone Thea Rubio MD Primary Care Provider +1- [phone] Reason for Visit * Reason Onset Date Comments Hospital Follow Up 04/23/2017 Encounter Details Date Type Department Care Team (Late st Contact Info) Description 04/23/2017 Telephone SEP H&[facility] [place] [facility] [address] [place] [address] Migue Anne MD [address] [place] [address] Hospital Follow Up Social History Tobacco Use [...] [facility] [address] [place] [address] documented as of this encounter Goals Goal Patient Goal Type Associated Problems Recent Progress Patient-Stated? Author Maintain a healthy diet, exercise regularly and maintain an ideal body weight General No Thea Rubio MD Stay Tobacco Free Lifestyle No Thea Rubio MD documented as of this encounter Visit Diagnoses Not on filedocumented in this encounter Care Teams Rn Provider Relations Relationship Specialty Start Date End Date Thea Rubio MD PCP - General Family Medicine 09/13/14 07/16/22 documented as of this encounter
--- OUTSIDE RECORDS SUMMARY | 2024-03-15 10:01 | XMS_ITS | Encounter Summary ---
Author Organization [place] [address] Care Team Providers Care Stud Sheep Farmer Name Role Phone Thea Rubio MD Primary Care Provider +1- [phone] Reason for Visit * Physical Therapy (Routine) - Closed Specialty Diagnoses / Procedures Referred By Contstephanie t Referred To Contact Physical Therapy Diagnoses Right knee pain, unspecified chronicity Thea Rubio MD Phone: tel: fax: [facility] Physical Therapy [address] [address] Phone: tel: fax: Referral ID Status Reason Start Date Expiration Date V isits Requested Visits Authorized [id number] Closed Specialty Services Required 12/26/2015 12/25/2016 30 30 Encounter Details Date Type Department Care Team (Latest Contact Info) Description 01/08/2016 3:37 PM EDT - 01/08/2016 11:59 PM EDT Hospital Encounter [facility] [place] [address] Meghan Garcia PTA Discharge Disposition: Home or [...] Garcia PTA - 01/08/2016 7:[address] [facility] Physical Therapy Daily Progress Note 01/08/2016 [place] [...] yet Treatment (30 minutes therapeutic exercise) At [employer]bour Networks Holdingset bar: GREEN hip flex, abd, ext 15 reps GREEN sidestepping 80 feet GREEN diagonal stepping 60 feet Quad stretch 3 reps hold 20 seconds Step up and hold 3 second SLS on 6 step 10 reps Hooklying: Bridges 12 reps with 3 second hold Quad stretch off edge of mat by CLINICAL DATA ANALYST 3 reps hold 20 seconds Sitting: GREEN [...] EST Clinical Support [facility] [address] [place] [address] documented as of this encounter Visit Diagnoses Not on filedocumented in this encounter Care Teams Stud Sheep Farmer Relationship Specialty Start Date End Date Thea Rubio MD PCP - General Family Medicine 09/13/14 07/16/22 documented as of this encounter
--- OUTSIDE RECORDS SUMMARY | 2024-03-15 10:01 | XMS_ITS | Encounter Summary ---
Author Organization [place] [address] Care Team Providers Care Wireless Development Manager Name Role Phone Thea Rubio MD Primary Care Provider +1- [phone] Reason for Visit * Reason Onset Date Comments ED Follow-Up Call 01/16/2017 Care Management - Chart Review 01/16/2017 Encounter Details Date Type Department Care Team (Late st Contact Info) Description 01/16/2017 Patient Outreach [facility] [address] [place] [phone] Caty Porter RN [address] [place] [address] ED Follow-Up Call; Care Management - Chart [...] [facility] [address] [place] [address] documented as of this encounter Goals Goal Patient Goal Type Associated Problems Recent Progress Patient-Stated? Author Maintain a healthy diet, exercise regularly and maintain an ideal body weight General No Thea Rubio MD Stay Tobacco Free Lifestyle No Thea Rubio MD documented as of this encounter Visit Diagnoses Not on filedocumented in this encounter Care Teams Wireless Development Manager Relationship Specialty Start Date End Date Thea Rubio MD PCP - General Family Medicine 09/13/14 07/16/22 documented as of this encounter
--- OUTSIDE RECORDS SUMMARY | 2024-03-15 10:01 | XMS_ITS | Encounter Summary ---
Author Organization [place] [address] Care Team Providers Care Hospitality Ambassador Name Role Phone Thea Rubio MD Primary Care Provider +1- [phone] Reason for Visit * Reason Onset Date Comments Migraine 07/30/2016 Encounter Details Date Type Department Care Team (Late st Contact Info) Description 07/30/2016 Telephone [facility] [address] [place] [address] Thea Rubio MD [address] [place] [address] [phone] Migraine Social History Tobacco Use Types Packs/Day [...] Support SE[facility] [address] [place] [address] documented as of this encounter Visit Diagnoses Not on filedocumented in this encounter Care Teams Hospitality Ambassador Relationship Specialty Start Date End Date Thea Rubio MD PCP - General Family Medicine 09/13/14 07/16/22 documented as of this encounter
--- OUTSIDE RECORDS SUMMARY | 2024-03-15 10:01 | XMS_ITS | Encounter Summary ---
Author Organization [place] [address] Care Team Providers Care Cyber Defense Incident Responder Name Role Phone Thea Rubio MD Primary Care Provider +1- [phone] Reason for Visit * Reason Onset Date Comments Other 12/26/2015 Encounter Details Date Type Department Care Team (Late st Contact Info) Description 12/26/2015 Telephone [facility] [address] [place] [address] Thea Rubio MD [address] [place] [address] [phone] Other Social History Tobacco Use Types Packs/Day [...] 04/24/2024 10:45 AM EST Clinical Support SE[facility] [address] [place] [address] documented as of this encounter Visit Diagnoses Not on filedocumented in this encounter Care Teams Cyber Defense Incident Responder Relationship Specialty Start Date End Date Thea Rubio MD PCP - General Family Medicine 09/13/14 07/16/22 documented as of this encounter
--- OUTSIDE RECORDS SUMMARY | 2024-03-15 10:01 | XMS_ITS | Encounter Summary ---
Author Organization [place] [address] Care Team Providers Care Child Care Group Leader Name Role Phone Thea Rubio MD Primary Care Provider +1- [phone] Encounter Details Date Type Department Care Team (Latest Contact Info) Description 10/07/2015 9:20 AM EDT - 10/07/2015 11:59 PM EDT Hospital Encounter [facility] [address] [place] [address] Well adult exam Discharge Disposition: [...] Clinical Support [facility] [address] [place] [address] Scheduled Orders Name Type Priority [...] LDL, CALCULATED (10/07/2015 9:32 AM EDT) Pathologist [facility] LDL Calculated 110(H) <=100 mg/dL [facility] Comment: ??< 100 ?Optimal 100 - 129 ? Near or above optimal 130 - 159 ? Borderline High 160 - 189 ? High >= 190 ?Very High Blood specimen (specimen) 10/07/2015 9:32 AM EDT 10/07/2015 11:58 AM EDT us Thea Rubio MD CHEMISTRY ORDERABLES Final Result [facility] [address] [place] [address] * DIFFERENTIAL (10/07/2015 9:32 AM EDT) Neut Percent 62.5 % [facility] Lymph Percent 25.0 % [facility] [place] Percent 6.9 % [facility] Eos Percent 5.0 % [facility] Baso Percent 0.6 % [facility] Neut# 4.9 1.8 - 7.7 x10(3)/mcL [facility] Lymph# 2.0 0.6 - 4.8 x10(3)/[facility] [place]# 0.5 0.0 - 1.3 x10(3)/[facility] Eos# 0.4 0.0 - 0.5 x10(3)/[facility] Baso# 0.0 0.0 - 0.2 x10(3)/[facility] Blood specimen (specimen) 10/07/2015 9:32 AM EDT 10/07/2015 9:32 AM EDT Thea Rubio MD HEMATOLOGY ORDERABLES Antonia l Result [facility] [address] [place] [address] * TSH REFLEX (10/07/2015 9:32 AM EDT) TSH Reflex 1.600 0.270 - 4.200 mcIU/mL [facility] Blood specimen (specimen) UPPER LIMB STRUCTURE / Unknown 10/07/2015 9:32 AM EDT 10/07/2015 11:58 AM EDT Thea Rubio MD CHEMISTRY ORDERABLES Final Result Performing Organization Address City/[facility]/ZIP Co de Phone Number [facility] [address] [place] [address] * LIPID PANEL REFLEX (10/07/2015 9:32 AM EDT) Cholesterol 174 <=200 mg/dL [facility] Comment: < 200 ?Desirable 200 - 239 ? Borderline High >= 240 ?High Triglyceride 71 <=150 mg/dL [facility] Comment: < 150 ? Normal 150 [...] Thea Rubio MD CHEMISTRY ORDERABLES Final Result [facility] [address] [place] [address] * (ABNORMAL) COMPREHENSIVE METABOLIC PANEL (10/07/2015 9:32 AM EDT) Sodium 141 136 - 145 mmol/L [facility] Potassium 4.4 3.5 - 5.0 mmol/L [facility] Chloride 109(H) 98 - 107 mmol/L [facility] Total CO2 21(L) 22 - 29 mmol/L [facility] Anion Gap 11 7 - 16 mmol/L [facility] Calcium 9.0 8.6 - 10.2 mg/dL [facility] Glucose Lvl 90 74 - 100 mg/dL [facility] BUN 9 6 - 20 mg/dL [facility] Creatinine 0.86 0.51 - 1.30 mg/dL [facility] Albumin 4.1 3.5 - 5.2 gm/dL [facility] Total Protein 7.0 6.4 - 8.3 gm/dL [facility] Bili Total 0.3 0.1 - 1.3 mg/dL [facility] AST 17 <=40 IU/L [facility] ALT 16 <=41 IU/L [facility] Alk Phos 69 35 - 104 IU/L [facility] GFR Afr Am >60 [facility] GFR Non Afr Am >60 [facility] Blood specimen (specimen) UPPER LIMB STRUCTURE / Unknown 10/07/2015 9:32 AM EDT 10/07/2015 11:58 AM EDT Thea Rubio MD CHEMISTRY ORDERABLES Edite d Result - Final Performing Organization Address City/[facility]/ZIP Co de Phone Number [facility] [address] [place] [address] * CBC WITH AUTO DIFF (10/07/2015 9:32 AM EDT) WBC 7.9 4.0 - 11.0 x10(3)/mcL [facility] RBC 4.64 3.80 - 5.10 x10(6)/mcL [facility] Hgb 12.8 12.0 - 15.6 gm/dL [facility] Hct 39.5 35.7 - 45.9 % [facility] MCV 85.1 82.5 - 99.8 fL [facility] MCH 27.6 27.0 - 34.3 pg [facility] MCHC 32.4 32.1 - 35.3 gm/dL [facility] RDW 13.5 11.5 - 15.0 % [facility] Platelet 298 144 - 423 x10(3)/mcL [facility] MPV 8.3 6.8 - 10.8 fL [facility] Blood specimen (specimen) UPPER LIMB STRUCTURE / Unknown 10/07/2015 9:32 AM EDT 10/07/2015 9:32 AM EDT us Thea Rubio MD HEMATOLOGY ORDERABLES Antonia l Result Performing Organization Address City/[facility]/ZIP Co de Phone Number [facility] [address] [place] [address] documented in this encounter Visit Diagnoses Diagnosis Well adult exam Routine general medical examination at a health care facility documented in this encounter Care Teams Child Care Group Leader Relationship Specialty Start Date End Date Thea Rubio MD PCP - General Family Medicine 09/13/14 07/16/22 documented as of this encounter
--- OUTSIDE RECORDS SUMMARY | 2024-03-15 10:01 | XMS_ITS | Encounter Summary ---
Author Organization [place] [address] Care Team Providers Care Card Punching Machine Operator Name Role Phone Thea Rubio MD Primary Care Provider +1- [phone] Reason for Visit * Reason Onset Date Comments Alopecia 06/18/2016 Encounter Details Date Type Department Care Team (Late st Contact Info) Description 06/18/2016 Telephone [facility] [address] [place] [address] Thea Rubio MD [address] [place] [address] [phone] Alopecia Social History Tobacco Use Types Packs/Day [...] 04/24/2024 10:45 AM EST Clinical Support [facility] [address] [place] [address] documented as of this encounter Visit Diagnoses Not on filedocumented in this encounter Care Teams Card Punching Machine Operator Relationship Specialty Start Date End Date Thea Rubio MD PCP - General Family Medicine 09/13/14 07/16/22 documented as of this encounter
--- OUTSIDE RECORDS SUMMARY | 2024-03-15 10:01 | XMS_ITS | Encounter Summary ---
Author Organization [place] [address] Care Team Providers Care Casket Liner Name Role Phone Thea Rubio MD Primary Care Provider +1- [phone] Reason for Visit * Reason Onset Date Comments Medication Refill 03/25/2017 Encounter Details Date Type Department Care Team (Late st Contact Info) Description 03/25/2017 Telephone [facility] [address] [place] [address] Thea Rubio MD [address] [place], [place] [phone] Medication Refill Social History Tobacco Use Types [...] 04/24/2024 10:45 AM EST Clinical Support [facility] [address] [place] [address] documented as of this encounter [...] documented as of this encounter Care Teams Casket Liner Relationship Specialty Start Date End Date Thea Rubio MD PCP - General Family Medicine 09/13/14 07/16/22 documented as of this encounter
--- OUTSIDE RECORDS SUMMARY | 2024-03-15 10:01 | XMS_ITS | Encounter Summary ---
Author Organization [place] [address] Care Team Providers Care Field Artillery Targeting Technician Name Role Phone Thea Rubio MD Primary Care Provider +1- [phone] Reason for Visit * Reason Comments Medication Refill Encounter Details Date Type Department Care Team (Late st Contact Info) Description 03/19/2017 Refill [facility] [place] [address] [place] [address] Thea Rubio MD [address] [place] [address] [phone] Medication Refill Social History Tobacco Use Types [...] 04/24/2024 10:45 AM EST Clinical Support [facility] [address] [place] [address] documented as of this encounter [...] as of this encounter Care Teams Field Artillery Targeting Technician Relationship Specialty Start Date End Date Thea Rubio MD PCP - General Family Medicine 09/13/14 07/16/22 documented as of this encounter
--- OUTSIDE RECORDS SUMMARY | 2024-03-15 10:01 | XMS_ITS | Encounter Summary ---
Author Organization [place] [address] Care Team Providers Care Marketing Support Manager Name Role Phone Thea Rubio MD Primary Care Provider +1- [phone] Reason for Visit * Reason Comments Migraine Thyroid Problem Encounter Details Date Type Department Care Team (Late st Contact Info) Description 04/19/2016 7:45 AM EST [facility] [address] [place] [address] Thea Rubio MD [address] [place], [place] [phone] Alopecia (Primary Dx); Migraine without aura and [...] 04/24/2024 10:45 AM EST Clinical Support [facility] [address] [place] [address] documented as of this encounter Procedures Procedure Name Priority Date/Time Associated Diagnosis Comments SCANNED LABS 07/09/2016 2:14 PM EDT documented in this encounter Results * SCANNED LABS (07/09/2016 2:14 PM EDT) 07/09/2016 2:14 PM EDT us Unknown Unknown HEMATOLOGY ORDERABLES Final Resu lt * T4, FREE (THYROXINE) (04/23/2016 4:41 PM EST) Free T4 1.06 0.80 - 2.00 ng/dL [facility] Blood specimen (specimen) 04/23/2016 4:41 PM EST 04/23/2016 7:53 PM EST us Thea Rubio MD CHEMISTRY ORDERABLES Final Result Performing Organization Address City/[facility]/[place] [address] * TSH REFLEX (04/23/2016 4:41 PM EST) TSH Reflex 2.100 0.270 - 4.200 mcIU/mL [facility] Blood specimen (specimen) UPPER LIMB STRUCTURE / Unknown 04/23/2016 4:41 PM EST 04/23/2016 7:53 PM EST us Thea Rubio MD CHEMISTRY ORDERABLES Final Result Performing Organization Address City/[facility]/[place] [address] documented in this encounter Visit Diagnoses Diagnosis [...] as of this encounter Care Teams Marketing Support Manager Relationship Specialty Start Date End Date Thea Rubio MD PCP - General Family Medicine 09/13/14 07/16/22 documented as of this encounter
--- OUTSIDE RECORDS SUMMARY | 2024-03-15 10:01 | XMS_ITS | Encounter Summary ---
Author Organization [place] [address] Care Team Providers Care Community Facilitator Name Role Phone Thea Rubio MD Primary Care Provider +1- [phone] Reason for Visit * Physical Therapy (Routine) - Closed Specialty Diagnoses / Procedures Referred By Contstephanie t Referred To Contact Physical Therapy Diagnoses Right knee pain, unspecified chronicity Thea Rubio MD Phone: tel: fax: [facility] Physical Therapy [address] [address] Phone: tel: fax: Referral ID Status Reason Start Date Expiration Date V isits Requested Visits Authorized [id number] Closed Specialty Services Required 12/26/2015 12/25/2016 30 30 Encounter Details Date Type Department Care Team (Latest Contact Info) Description 01/29/2016 3:30 PM EDT - 01/29/2016 11:59 PM EDT Hospital Encounter [facility] [place] [address] Meghan Garcia PTA Discharge Disposition: Home or [...] this encounter Discharge Summaries * Meghan Garcia, PIPE ORGAN TECHNICIAN - 01/29/2016 7:[address] [facility] Discharge/Treatment Report 01/29/2016 Gardenia Childress : 1980 [...] reps hold 20 seconds Squat, lift and pick up man 30# crate carry 10 feet put on [...] to demo ability to properly squat at pick up man 30# box and carry to counter and [...] 04/24/2024 10:45 AM EST Clinical Support [facility] [address] [place] [address] documented as of this encounter Visit Diagnoses Not on filedocumented in this encounter Care Teams Community Facilitator Relationship Specialty Start Date End Date Thea Rubio MD PCP - General Family Medicine 09/13/14 07/16/22 documented as of this encounter
--- OUTSIDE RECORDS SUMMARY | 2024-03-15 10:01 | XMS_ITS | Encounter Summary ---
Author Organization [place] [address] Care Team Providers Care Pulverizer Mill Operator Name Role Phone Thea Rubio MD Primary Care Provider +1- [phone] Reason for Visit * Reason Onset Date Comments Care Management - Chart Review 04/24/2017 h ospital discharge chart review Encounter Details Date Type Department Care Team (Late st Contact Info) Description 04/24/2017 Patient Outreach [facility] [address] [place] [phone] Shoshana Britton, RN Care Management - Chart [...] [facility] [address] [place] [phone] documented as of this encounter Goals Goal Patient Goal Type Associated Problems Recent Progress Patient-Stated? Author Maintain a healthy diet, exercise regularly and maintain an ideal body weight General No Thea Rubio MD Stay Tobacco Free Lifestyle No Thea Rubio MD documented as of this encounter Visit Diagnoses Not on filedocumented in this encounter Care Teams Pulverizer Mill Operator Relationship Specialty Start Date End Date Thea Rubio MD PCP - General Family Medicine 09/13/14 07/16/22 documented as of this encounter
--- OUTSIDE RECORDS SUMMARY | 2024-03-15 10:01 | XMS_ITS | Encounter Summary ---
Author Organization [place] [address] Care Team Providers Care Network Announcer Name Role Phone Thea Rubio MD Primary Care Provider +1- [phone] Reason for Visit * Physical Therapy (Routine) - Closed Specialty Diagnoses / Procedures Referred By Contstephanie t Referred To Contact Physical Therapy Diagnoses Right knee pain, unspecified chronicity Thea Rubio MD Phone: tel: fax: [facility] Physical Therapy [address] [address] Phone: tel: fax: Referral ID Status Reason Start Date Expiration Date V isits Requested Visits Authorized [id number] Closed Specialty Services Required 12/26/2015 12/25/2016 30 30 Encounter Details Date Type Department Care Team (Latest Contact Info) Description 01/01/2016 7:55 AM EDT - 01/01/2016 11:59 PM EDT Hospital Encounter [facility] [place] [address] Kris Barboza, DANIELLE Discharge Disposition: Home or [...] Evaluation 01/01/2016 Visit # /Insurance : 1 [place] Medicaid Onset Date: 12/01/14 Diagnosis: right knee [...] No Recent falls? 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 boxes all [...] to demo ability to properly squat at order picker/assembler 30# box and carry to counter and [...] Date: 01/01/2016 Gardenia L Childress : [id number] documented in this encounter Plan of Treatment Upcoming Encounters Date Type Department Care Team (Late st Contact Info) Description 04/24/2024 10:45 AM EST Clinical Support [address] [phone] Scheduled Referrals Name Type Priority Associated Diagnoses Orde r Schedule AMB REFERRAL TO PHYSICAL THERAPY Outpatient Referral Routine Right knee pain, unspecified chronicity Ordered: 12/26/2015 documented as of this encounter Visit Diagnoses Not on filedocumented in this encounter Care Teams Network Announcer Relationship Specialty Start Date End Date Thea Rubio MD PCP - General Family Medicine 09/13/14 07/16/22 documented as of this encounter
--- OUTSIDE RECORDS SUMMARY | 2024-03-15 10:01 | XMS_ITS | Encounter Summary ---
Author Organization [place] [address] Care Team Providers Care Decal Applier Name Role Phone Thea Rubio MD Primary Care Provider +1- [phone] Reason for Visit * Reason Comments Migraine Encounter Details Date Type Department Care Team (Late st Contact Info) Description 10/18/2016 2:00 PM EDT Office Visit [facility] [address] [place] [address] Thea Rubio MD [address] [place] [address] [phone] Migraine without aura and without status migrainosus, [...] get more migraines with cardio part of Czech butt lift exercises. No chance of , [...] Celiac artery stenosis (HCC) (Chronic)-will need surgery. [facility] Documentation Medication Compliance - compliant all of [...] was provided either in writing and/or via Anapsis. A new medicine was not prescribed on [...] Support [facility] [address] [place] [phone] documented as of this encounter Goals Goal [...] documented as of this encounter Care Teams Decal Applier Relationship Specialty Start Date End Date Thea Rubio MD PCP - General Family Medicine 09/13/14 07/16/22 documented as of this encounter
--- OUTSIDE RECORDS SUMMARY | 2024-03-15 10:01 | XMS_ITS | Encounter Summary ---
Author Organization [place] [address] Care Team Providers Care Sustainable Products Marketing Manager Name Role Phone Thea Rubio MD Primary Care Provider +1- [phone] Reason for Visit * Physical Therapy (Routine) - Closed Specialty Diagnoses / Procedures Referred By Contstephanie t Referred To Contact Physical Therapy Diagnoses Right knee pain, unspecified chronicity Thea Rubio MD Phone: tel: fax: [facility] Physical Therapy [address] [address] Phone: tel: fax: Referral ID Status Reason Start Date Expiration Date V isits Requested Visits Authorized [id number] Closed Specialty Services Required 12/26/2015 12/25/2016 30 30 Encounter Details Date Type Department Care Team (Latest Contact Info) Description 01/15/2016 3:30 PM EDT - 01/15/2016 11:59 PM EDT Hospital Encounter [facility] [place] [address] Meghan Garcia PTA Discharge Disposition: Home or [...] Garcia PTA - 01/15/2016 3:29 PM EDT [facility] Physical Therapy Daily Progress Note 01/15/2016 Gardenia [...] reps hold 20 seconds Squat, lift and warp picker 12.5# crate 5 reps Hooklying: Bridges on RED ball 12 reps with 3 second hold arms across chest BLUE SLR 12 reps Quad stretch off edge of mat by METAL CASKET MAKER 3 reps hold 20 seconds Sitting: BLUE [...] 10:45 AM EST Clinical Support [facility] [address] [place] [address] documented as of this encounter Visit Diagnoses Not on filedocumented in this encounter Care Teams Sustainable Products Marketing Manager Relationship Specialty Start Date End Date Thea Rubio MD PCP - General Family Medicine 09/13/14 07/16/22 documented as of this encounter
--- OUTSIDE RECORDS SUMMARY | 2024-03-15 10:01 | XMS_ITS | Encounter Summary ---
Author Organization [place] [address] Care Team Providers Care Business Intelligence Architect Name Role Phone Thea Rubio MD Primary Care Provider +1- [phone] Encounter Details Date Type Department Care Team (Latest Contact Info) Description 09/26/2015 8:55 PM EDT - 09/26/2015 11:59 PM EDT Hospital Encounter [facility] [place] [address] Visit for gynecologic examination Discharge [...] 04/24/2024 10:45 AM EST Clinical Support [facility] [address] [place] [address] documented as of this encounter Procedures Procedure Name Priority Date/Time Associated Diagnosis Comments INFORMATICS PHYSICIAN CYTOLOGY REPORT Routine 09/26/2015 8 :55 PM EDT documented in this encounter Results * INFORMATICS PHYSICIAN CYTOLOGY REPORT (09/26/2015 8:55 PM EDT) Shafting Cleaner Cytology Report ? PATIENT NAME:ISHAN CHILDRESS ? Shafting Cleaner Cytology Report ? Accession Number ?Collected Date/Time ? Received Date/Time ? [id number] ? 09/26/15 20:55 EDT ?09/27/15 09:07 EDT [...] definitive ? therapy. ? Processed using the schooxp AdaptiveBlue automated cytology screening device ? ([employer]). ? Cloud Subject Matter Expert: TS ?09/28/2015 ? Completed by: ??Magaly Rocha CT ?(Electronically signed by) ?09/28/2015 ?[facility] 09/26/2015 8:55 PM EDT us Thea Rubio MD PATHOLOGY ORDERABLES Final Result Performing Organization Address City/State/[facility] Co de Phone Number [facility] [address] [place] [address] documented in this encounter Visit Diagnoses Diagnosis Visit for gynecologic examination Routine gynecological examination documented in this encounter Orders Lab Orders Without Results Count Last Ordered D ate First Ordered Date INFORMATICS PHYSICIAN CYTOLOGY REQUEST (PAP ONLY) 1 6 documented in this encounter Care Teams Business Intelligence Architect Relationship Specialty Start Date End Date Thea Rubio MD PCP - General Family Medicine 09/13/14 07/16/22 documented as of this encounter
--- OUTSIDE RECORDS SUMMARY | 2024-03-15 10:01 | XMS_ITS | Encounter Summary ---
Author Organization [place] [address] Care Team Providers Care Set Up Person Name Role Phone Thea Rubio MD Primary Care Provider +1- [phone] Reason for Visit * Reason Comments Medication Refill Encounter Details Date Type Department Care Team (Late st Contact Info) Description 09/17/2016 Refill [facility] [address] [place] [address] Thea Rubio MD [address] [place], [place] [phone] Medication Refill Social History Tobacco Use Types [...] Support [facility] [address] [facility] [place] [address] documented as of this encounter Goals [...] documented as of this encounter Care Teams Set Up Person Relationship Specialty Start Date End Date Thea Rubio MD PCP - General Family Medicine 09/13/14 07/16/22 documented as of this encounter
--- OUTSIDE RECORDS SUMMARY | 2024-03-15 10:01 | XMS_ITS | Encounter Summary ---
Author Organization [place] [address] Care Team Providers Care Licensed Marine Engineer Name Role Phone Thea Rubio MD Primary Care Provider +1- [phone] Reason for Visit * Reason Onset Date Comments Other 10/24/2015 Encounter Details Date Type Department Care Team (Late st Contact Info) Description 10/24/2015 Telephone [facility] [address] [place] [address] Thea Rubio MD [address] [place] [id number] Other Social History Tobacco Use Types Packs/Day [...] 10:45 AM EST Clinical Support [facility] [address] [place] [address] documented as of this encounter Visit Diagnoses Not on filedocumented in this encounter Care Teams Licensed Marine Engineer Relationship Specialty Start Date End Date Thea Rubio MD PCP - General Family Medicine 09/13/14 07/16/22 documented as of this encounter
--- OUTSIDE RECORDS SUMMARY | 2024-03-15 10:01 | XMS_ITS | Encounter Summary ---
Author Organization [place] [address] Care Team Providers Care Cage Loader Name Role Phone Thea Rubio MD Primary Care Provider +1- [phone] Reason for Referral * Physical Therapy (Routine) - Closed Specialty Diagnoses / Procedures Referred By Amalia t Referred To Contact Physical Therapy Diagnoses Right knee pain, unspecified chronicity Thea Rubio MD Phone: tel: fax: [facility] Physical Therapy [address] [address] Phone: tel: fax: Referral ID Status Reason Start Date Expiration Date V isits Requested Visits Authorized [id number] Closed Specialty Services Required 12/26/2015 12/25/2016 30 30 Question Answer Reason for Physical Therapy Evaluate and Treat Reason for Visit * Reason Onset Date Comments Other 12/22/2015 Encounter Details Date Type Department Care Team (Late st Contact Info) Description 12/22/2015 Telephone [facility] Wilma Trujillo [address] [place] [address] Thea Rubio MD [address] [place] [phone] Other Social History Tobacco Use Types [...] EST Clinical Support [facility] [address] [place] [phone] Scheduled Referrals Name Type Priority Associated Diagnoses Orde r Schedule AMB REFERRAL TO PHYSICAL THERAPY Outpatient Referral Routine Right knee pain, unspecified chronicity Ordered: 12/26/2015 documented as of this encounter Visit Diagnoses Diagnosis Right knee pain, unspecified chronicity- Primary documented in this encounter Care Teams Cage Loader Relationship Specialty Start Date End Date Thea Rubio MD PCP - General Family Medicine 09/13/14 07/16/22 documented as of this encounter
--- OUTSIDE RECORDS SUMMARY | 2024-03-15 10:01 | XMS_ITS | Encounter Summary ---
Author Organization [place] [address] Care Team Providers Care Machine Stemmer Name Role Phone Thea Rubio MD Primary Care Provider +1- [phone] Encounter Details Date Type Department Care Team (Latest Contact Info) Description 04/23/2016 4:34 PM EST - 04/23/2016 11:59 PM EST Hospital Encounter [facility] [address] [place] [address] Alopecia Discharge Disposition: Home or [...] Clinical Support [facility] [address] [place] [address] Scheduled Orders Name Type Priority [...] TSH Reflex 2.100 0.270 - 4.200 mcIU/mL [facility] Blood specimen (specimen) UPPER LIMB STRUCTURE / Unknown 04/23/2016 4:41 PM EST 04/23/2016 7:53 PM EST us Thea Rubio MD CHEMISTRY ORDERABLES Final Result Performing Organization Address [facility] [place] [address] * T4, FREE (THYROXINE) (04/23/2016 4:41 PM EST) Free T4 1.06 0.80 - 2.00 ng/dL [facility] Blood specimen (specimen) 04/23/2016 4:41 PM EST 04/23/2016 7:53 PM EST us Thea Rubio MD CHEMISTRY ORDERABLES Final Result Performing Organization Address [facility] [place] [address] documented in this encounter Visit Diagnoses Diagnosis Alopecia Alopecia, unspecified documented in this encounter Care Teams Machine Stemmer Relationship Specialty Start Date End Date Thea Rubio MD PCP - General Family Medicine 09/13/14 07/16/22 documented as of this encounter
--- OUTSIDE RECORDS SUMMARY | 2024-03-15 10:01 | XMS_ITS | Encounter Summary ---
Author Organization [place] [address] Care Team Providers Care Mother Tester Name Role Phone Thea Rubio MD Primary Care Provider +1- [phone] Reason for Visit * Reason Comments Leg Injury right leg back of kn ee muscle pulled Encounter Details Date Type Department Care Team (Late st Contact Info) Description 12/19/2015 2:45 PM EDT [facility] [address] [place] [address] Ethel Overton MD [address] [place] [address] Knee injury, right, initial encounter [...] improved but still present. Pt works at [employer]. Pt does repetitive bending, squatting, lifting. Pain [...] Clinical Support [facility] [address] [place] [address] documented as of this encounter [...] as of this encounter Care Teams Mother Tester Relationship Specialty Start Date End Date Thea Rubio MD PCP - General Family Medicine 09/13/14 07/16/22 documented as of this encounter
--- OUTSIDE RECORDS SUMMARY | 2024-03-15 10:01 | XMS_ITS | Encounter Summary ---
Author Organization [place] [address] Care Team Providers Care Scientific Photographer Name Role Phone Thea Rubio MD Primary Care Provider +1- [phone] Reason for Visit * Reason Comments Chest Pain Pt has ahd chest martha n since 1600 today. + SOB, denies any heart hx. CPTA: topamax * Auth/Cert/Inpt Specialty Diagnoses / Procedures Referred By Amalia t Referred To Contact Diagnoses Chest pain, unspecified type Referral ID Status Reason Start Date Expiration Date Visits Re quested Visits Authorized [id number] 1 1 Encounter Details Date Type Department Care Team (Late st Contact Info) Description 04/21/2017 11:14 PM EST - 04/23/2017 9:07 AM EST Emergency [facility] DEC UNIT [facility] [place] [address] Eros Gunter MD [address] [facility] [place] [address] Popeye Brady MD [address] [place] [address] Chest pain, unspecified type (Primary [...] Anne MD - 04/23/2017 8:30 AM EST [facility] Discharge Summary Patient Name: Gardenia Childress [...] right ventricular dilatation. Prominent right atrial size. Yacu-rs-volbj shunt seen at the atrial level. Shunt [...] lb 3.2 oz (62.2 kg) LMP 03/24/2017 [id number]% ? No BMI 22.48 kg/m?? General Appearance: [...] WHEN HAVING MIGRAINE FLARES. Follow Up: Thea Rbuio MD [address] [place] [address] Schedule an appointment as soon as possible for a visit in 1 week Migue Anne MD [address] [facility] [address] Schedule an appointment as soon as [...] or Self Longterm documented in this encounter Progress Notes * [...] 04/21/2017 Primary Care Provider: Thea Rubio MD Machinist Outside: None PMHx : none SH: non smoker, [...] of blood clots, bleeding or easy bruising FINE DINING SERVER: No TIA, CVA. NO focal extremity weakness [...] SURGERY 11/07/2016 [facility] Deborah Pakrer MD, for biliary stenosis ??? APPENDECTOMY couple [...] SKIN warm and dry. No new rashes Director Medicaid: Vitals: Vitals: 04/21/17 2217 04/22/17 0134 04/22/17 [...] input to follow from Dr.Houlihan Fredy Jones, GARDENER Addendum: I personally interviewed and examined the [...] by me Rhythm: normal sinus Rate: normal [place]: normal Ectopy: none Conduction: normal ST Segments: [...] Percent 53.0 % Lymph Percent 34.4 % Colbert Percent 7.2 % Eos Percent 4.9 % Baso Percent 0.5 % Neut # 4.9 1.8 - 7.7 x10(3)/mcL Lymph # 3.2 0.6 - 4.8 x10(3)/mcL Colbert # 0.7 0.0 - 1.3 x10(3)/mcL Eos# [...] Clinical Support [facility] [address] [place] [phone] documented as of this encounter Goals Goal [...] For optimization of anatomic evaluation, advanced 3-D qli-jdjsnzgt-twxlypresf was performed. This included multi-planar reconstruction and [...] COLOR FLOW MAPPING (04/22/2017 2:59 PM EST) [facility] Ejection Fraction 60-65 % [place]IS Anatomical Region Laterality Modality Cardiac Stress T esting 04/22/2017 1:48 PM EST Impressions 04/22/2017 3:04 PM EST ??CONCLUSIONS ??Normal global left ventricular size, wall thickness, systolic function with no obvious regional wall motion abnormalities at rest. ?Normal resting echocardiogram. ?Mild right ventricular dilatation. ?Prominent right atrial size. ?Hwjl-op-hceek shunt seen at the atrial level. ??Shunt [...] right ventricular dilatation. Prominent right atrial size. Zqvv-lu-rcnzy shunt seen at the atrial level. Shunt [...] 2:50 PM EST ? Exercise ECG Report ?[facility] ? Interpretive Statements ? Type of [...] <0.01 <0.01 ng/mL 04/22/2017 7:47 AM EST [facility] Blood VENOUS BLOOD / Unknown Venipuncture / Unknown 04/22/2017 6:57 AM EST 04/22/2017 7:04 AM EST Narrative [facility] - 04/22/2017 7:47 AM EST Values > or = 0.01 ng/mL have been shown to have prognostic value. us Eros Gunter MD CHEMISTRY ORDERABLES Final Resul t Performing Organization Address [facility] de Phone Number [facility] [address] [place] [address] * HEPATIC FUNCTION PANEL (04/22/2017 1:48 AM EST) Total Protein 7.0 6.4 - 8.3 gm/dL 04/22/2017 10:46 AM EST [facility] Albumin 4.2 3.5 - 5.2 gm/dL 04/22/2017 10:46 AM EST [facility] Bili Direct <0.2 0.0 - 0.3 mg/dL 04/22/2017 10:46 AM EST [facility] Bili Total 0.3 0.1 - 1.3 mg/dL 04/22/2017 10:46 AM EST [facility] AST 22 <=40 IU/L 04/22/2017 10:46 AM EST [facility] ALT 14 <=41 IU/L 04/22/2017 10:46 AM EST [facility] Alk Phos 64 35 - 104 IU/L 04/22/2017 10:46 AM EST [facility] Blood VENOUS BLOOD / Unknown Venipuncture / Unknown 04/22/2017 1:48 AM EST 04/22/2017 1:53 AM EST us Elver Jones APRN CHEMISTRY ORDERABLES Final Res ult Performing Organization Address [facility] Co de Phone Number [facility] [address] [place] [address] * LIPID SCREEN (04/22/2017 1:48 AM EST) Cholesterol 151 <=200 mg/dL 04/22/2017 10:40 AM EST [facility] Comment: < 200 ?Desirable 200 - 239 ? Borderline High >= 240 ?High Triglyceride 72 <=150 mg/dL 04/22/2017 10:40 AM EST [facility] Comment: < 150 ? Normal 150 - 199 ?Borderline High 200 - 499 ?High ??>= 500 ? Very High HDL 63 >=40 mg/dL 04/22/2017 10:40 AM EST [facility] Comment: ??> 60 ?Optimal 40 - 60 ?Acceptable ?? < 40 ?Low LDL Calculated 74 <=100 mg/dL 04/22/2017 10:40 AM EST [facility] Comment: < 100 ?Optimal 100 - 129 ? Near or above optimal 130 - 159 ? Borderline High 160 - 189 ? High >= 190 ?Very High Blood VENOUS BLOOD / Unknown Venipuncture / Unknown 04/22/2017 1:48 AM EST 04/22/2017 1:53 AM EST us Elver Jones APRN CHEMISTRY ORDERABLES Final Res ult Performing Organization Address [facility] [place] [address] * TROPONIN-T (04/22/2017 1:48 AM EST) Troponin-T <0.01 <0.01 ng/mL 04/22/2017 2:15 AM EST [facility] Blood VENOUS BLOOD / Unknown Venipuncture / Unknown 04/22/2017 1:48 AM EST 04/22/2017 1:53 AM EST Narrative [facility] - 04/22/2017 2:15 AM EST Values > or = 0.01 ng/mL have been shown to have prognostic value. us Eros Gunter MD CHEMISTRY ORDERABLES Final Resul t Performing Organization Address [facility] [place] [address] * D-DIMER (04/22/2017 12:14 AM EST) D-Dimer <230 <=230 ng/mL D-DU 04/22/2017 12:48 AM EST [facility] Comment: This test has been clinically validated by the air valve repairer and approved by the FDA for exclusion [...] ORDERABLES Final Resu lt Performing Organization Address [facility] [place] [address] * TROPONIN-T (04/22/2017 12:14 AM EST) Troponin-T <0.01 <0.01 ng/mL 04/22/2017 1:11 AM EST [facility] Blood VENOUS BLOOD / Unknown Venipuncture / Unknown 04/22/2017 12:14 AM EST 04/22/2017 12:18 AM EST Narrative [facility] - 04/22/2017 1:11 AM EST Values > or = 0.01 ng/mL have been shown to have prognostic value. Eros Gunter MD CHEMISTRY ORDERABLES Final Resul t Performing Organization Address [facility] Co de Phone Number [facility] [address] [place] [address] * (ABNORMAL) BASIC METABOLIC PANEL (04/22/2017 12:14 AM EST) Sodium 141 136 - 145 mmol/L 04/22/2017 1:16 AM EST [facility] Potassium 4.1 3.5 - 5.0 mmol/L 04/22/2017 1:16 AM EST [facility] Chloride 108(H) 98 - 107 mmol/L 04/22/2017 1:16 AM EST [facility] Total CO2 14(L) 22 - 29 mmol/L 04/22/2017 1:16 AM [facility] Anion Gap 19(H) 7 - 16 mmol/L 04/22/2017 1:16 AM [facility] Calcium 9.1 8.6 - 10.2 mg/dL 04/22/2017 1:16 AM [facility] Glucose Lvl 79 74 - 100 mg/dL 04/22/2017 1:16 AM [facility] BUN 11 6 - 20 mg/dL 04/22/2017 1:16 AM [facility] Creatinine 0.77 0.51 - 1.30 mg/dL 04/22/2017 1:16 AM [facility] GFR Afr Am 116 mL/min/1.7 3 m2 04/22/2017 1:16 AM [facility] GFR Non Afr Am 100 mL/min/1.7 3 m2 04/22/2017 1:16 AM [facility] Comment: GFR Afr Am and GFR [...] Gunter MD CHEMISTRY ORDERABLES Final Resul t [facility] [address] [place] [address] * CBC WITH DIFF (04/22/2017 12:14 AM EST) WBC 9.2 4.0 - 11.0 x10(3)/mcL 04/22/2017 12:36 AM [facility] RBC 5.10 3.80 - 5.10 x10(6)/mcL 04/22/2017 12:36 AM [facility] Hgb 14.5 12.0 - 15.6 gm/dL 04/22/2017 12:36 AM [facility] Hct 44.1 35.7 - 45.9 % 04/22/2017 12:36 AM [facility] MCV 86.6 82.5 - 99.8 fL 04/22/2017 12:36 AM [facility] MCH 28.5 27.0 - 34.3 pg 04/22/2017 12:36 AM [facility] MCHC 32.9 32.1 - 35.3 gm/dL 04/22/2017 12:36 AM [facility] RDW 13.3 11.5 - 15.0 % 04/22/2017 12:36 AM [facility] Platelet 298 144 - 423 x10(3)/mcL 04/22/2017 12:36 AM [facility] MPV 8.0 6.8 - 10.8 fL 04/22/2017 12:36 AM [facility] Neut Percent 53.0 % 04/22/2017 12:36 AM [facility] Lymph Percent 34.4 % 04/22/2017 12:36 AM EST [facility] Colbert Percent 7.2 % 04/22/2017 12:36 AM EST [facility] Eos Percent 4.9 % 04/22/2017 12:36 AM EST [facility] Baso Percent 0.5 % 04/22/2017 12:36 AM EST [facility] Neut # 4.9 1.8 - 7.7 x10(3)/[facility] 04/22/2017 12:36 AM EST [facility] Lymph # 3.2 0.6 - 4.8 x10(3)/[facility] 04/22/2017 12:36 AM EST [facility] Colbert # 0.7 0.0 - 1.3 x10(3)/[facility] 04/22/2017 12:36 AM EST [facility] Eos# 0.5 0.0 - 0.5 x10(3)/[facility] 04/22/2017 12:36 AM EST [facility] Baso # 0.0 0.0 - 0.2 x10(3)/[facility] 04/22/2017 12:36 AM EST [facility] Blood VENOUS BLOOD / Unknown Venipuncture / Unknown 04/22/2017 12:14 AM EST 04/22/2017 12:18 AM EST us Eros Gunter MD HEMATOLOGY ORDERABLES Final Resu lt Performing Organization Address City/State/[facility] Co de Phone Number [facility] [address] [place] [address] * XR CHEST PA AND LATERAL (04/21/2017 [...] 8:37 AM EST ? Stationary ECG Study ?[facility] ? Interpretive Statements ? SINUS RHYTHM WITH SINUS ARRHYTHMIA INCOMPLETE RIGHT BUNDLE BRANCH BLOCK Electronically Signed On 04-22-2017 8:37:18 EST by Callum Hernandez MD Narrative Procedure Note Callum Hernandez MD - 04/22/2017 IMPRESSION Stationary ECG Study [facility] Interpretive Statements SINUS RHYTHM WITH SINUS ARRHYTHMIA INCOMPLETE RIGHT BUNDLE BRANCH BLOCK Electronically Signed On 04-22-2017 8:37:18 EST by Callum Hernandez MD Eros Gunter MD IMG ECG ORDERABLES [...] 04/22/2017 documented in this encounter Care Teams Scientific Photographer Relationship Specialty Start Date End Date Thea Rubio MD PCP - General Family Medicine 09/13/14 07/16/22 documented as of this encounter
--- OUTSIDE RECORDS SUMMARY | 2024-03-15 10:01 | XMS_ITS | Encounter Summary ---
Author [place] [address] Care Team Providers Care Sales Record Clerk Name Role Phone Thea Rubio MD Primary Care Provider +1- [phone] Encounter Details Date Type Department Care Team (Latest Contact Info) Description 12/19/2015 3:18 PM EDT - 12/19/2015 11:59 PM EDT Hospital Encounter [facility] [address] [facility] [place], [place] [id number] Knee injury, right, initial encounter Discharge Disposition: [...] Clinical Support [facility] [address] [facility] [place] [address] documented as of this encounter [...] encounter documented in this encounter Care Teams Sales Record Clerk Relationship Specialty Start Date End Date Thea Rubio MD PCP - General Family Medicine 09/13/14 07/16/22 documented as of this encounter
--- OUTSIDE RECORDS SUMMARY | 2024-03-15 10:01 | XMS_ITS | Encounter Summary ---
Author Organization [place] [address] Care Team Providers Care Pediatric Assistant Name Role Phone Thea Rubio MD Primary Care Provider +1- [phone] Encounter Details Date Type Department Care Team (Latest Contact Info) Description 01/20/2017 8:17 PM EDT - 01/20/2017 11:59 PM EDT Hospital Encounter [facility] [place] [address] Calculus of upper urinary tract [...] [facility] [address] [place] [address] documented as of this encounter [...] 1:00 PM EDT) Calculi Comp See Note [employer] Comment: Calculi composed primarily of: 40% [...] composition determined by FTIR analysis. Performed by [employer], ? [address] [place], [place] [id number] ? [email or web address], Vinayak Barrera MD - Lab. Director Calculi Mass 5 mg [employer] Calculi Number 2 [employer] Calculi Size 1 to 4 mm [employer] Calculi Desc See Note [employer] Comment: Specimen consists of two, small, brown/hernandez, irregular calculi fragments. Stone 01/20/2017 1:00 PM EDT 01/20/2017 11:23 PM EDT us Anderson Irwin MD MICROBIOLOGY - GENERAL ORD ERABLES Final Result [facility] [address] [place], [place] [id number] documented in this encounter Visit Diagnoses Diagnosis Calculus of upper urinary tract- Primary documented in this encounter Care Teams Pediatric Assistant Relationship Specialty Start Date End Date Thea Rubio MD PCP - General Family Medicine 09/13/14 07/16/22 documented as of this encounter
--- OUTSIDE RECORDS SUMMARY | 2024-03-15 10:01 | XMS_ITS | Encounter Summary ---
Author Organization [place] [address] Care Team Providers Care Spray Drier Operator Name Role Phone Thea Rubio MD Primary Care Provider +1- [phone] Reason for Visit * Reason Comments Back Pain Right lower back martha n. began 1.5 hours ago. Encounter Details Date Type Department Care Team (Late st Contact Info) Description 01/15/2017 9:17 PM EDT - 01/16/2017 12:41 AM EDT Emergency [facility] [address] [facility] [place] [address] Mohamud Rodgers MD [facility] EMERGENCY DEPT [address] [place] [address] Renal colic on right side [...] sent through Care Everywhere. * RENAL COLIC (PALESTINIAN) documented in this encounter Medications at Time [...] Self Skilled Nursing documented in this encounter ED Notes * [...] Clinical Support [facility] [address] [place] [address] documented as of this encounter Goals Goal [...] 10:50 PM EDT) UA Color Yellow Straw [facility] UA Appear Slightly Cloudy(A) Clear [facility] UA Glucose Negative Negative [facility] Ketones Negative Negative [facility] Blood Large(A) Negative [facility] UA pH 6.0 5.0 - 8.0 [facility] Comment:Reference range dionna d for random specimens only. UA Protein Trace(A) Negative [facility] UA Urobilinogen 1.0 E.U./dL <=1 E.U./dL [facility] UA Nitrite Negative Negative [facility] UA Leuk Est Negative Negative [facility] UA Spec Grav >=1.030 1.002 - 1.030 [facility] Comment:Reference range dionna d for random specimens only. UA RBC 5-10(A) 0 - 3 /HPF [facility] UA Squam Epi 3+ [facility] UA Mucus 4+ [facility] UA Hyal Cast 3-5(A) 0 - 2 /LPF [facility] U[facility] CA Ox Chiquis 1+ [facility] UA Trans Epi 1+ [facility] Urine specimen (specimen) URINE SPECIMEN COLLECTION, CLEAN CATCH / Unknown 01/15/2017 10:50 PM EDT 01/15/2017 10:55 PM EDT us Mohamud Rodgers MD URINE ORDERABLES Final Result [facility] [address] [facility] [place] [address] documented in this [...] 01/16/2017 documented in this encounter Care Teams Spray Drier Operator Relationship Specialty Start Date End Date Thea Rubio MD PCP - General Family Medicine 09/13/14 07/16/22 documented as of this encounter
--- OUTSIDE RECORDS SUMMARY | 2024-03-15 10:01 | XMS_ITS | Encounter Summary ---
Author Organization [place] [address] Care Team Providers Care Almond Paste Molder Name Role Phone Thea Rubio MD Primary Care Provider [phone]- [phone] Reason for Visit * Reason Comments Gynecologic Exam Encounter Details Date Type Department Care Team (Late st Contact Info) Description 04/18/2017 2:00 PM EST Office Visit [facility] [address] [place] [address] Thea Rubio MD [address] [place] [address] [phone] Well adult exam (Primary Dx); Visit for [...] REFLEX; Future Visit for gynecologic examination-NL exam [facility] Documentation Medication Compliance: Compliant all the time Understanding of Current Medications: Good Medication Compliance Barriers: None or N/A Self-Management Tools: Home blood pressure monitoring, Home weight monitoring Self-Management Ability: Good Willingness to Adopt Healthy Behaviors: Fair Potential Barriers to completing treatment plans today: No significant barriers [facility] Flowsheet was completed/reviewed as part of today's visit. Educated patient and spouse regarding the diagnosis, medication/treatment, goals, self-management tools and instructions based on their care plan. They verbalized understanding of the education givenon the After Visit Summary [AVS] for today's visit. A copy of the AVS was provided either in writing and/or via [employer]. A new medicine was not prescribed on [...] EST Clinical Support [facility] [address] [place] [address] documented as of this encounter Goals Goal Patient Goal Type Associated Problems Recent Progress Patient-Stated? Author Maintain a healthy diet, exercise regularly and maintain an ideal body weight General No Thea Rubio MD Stay Tobacco Free Lifestyle No Thea Rubio MD documented as of this encounter Procedures Procedure Name Priority Date/Time Associated Diagnosis Comments MENTAL MEASUREMENTS TEACHER CYTOLOGY REQUEST (PAP ONLY) Routine 04/18/2017 2:30 PM EST Visit for gynecologic examination [facility] MENTAL MEASUREMENTS TEACHER CYTOLOGY ORDER Routine 04/18/2017 2:30 PM EST Visit for gynecologic examination HPV HIGH RISK Routine 04/18/2017 2:30 PM EST Visit for gynecologic examination documented in this encounter Results * TSH REFLEX (05/14/2017 12:04 PM EST) TSH Reflex 2.240 0.270 - 4.200 mcIU/mL 05/14/2017 6:13 PM EST [facility] Blood Venipuncture / Unknown 05/14/2017 12:04 PM EST 05/14/2017 12:04 PM EST us Thea Rubio MD CHEMISTRY ORDERABLES Final Result [facility] [address] [place] [address] * LIPID SCREEN (05/14/2017 12:04 PM EST) Cholesterol 154 <=200 mg/dL 05/14/2017 6:13 PM EST [facility] Comment: < 200 ?Desirable 200 - 239 ? Borderline High >= 240 ?High Triglyceride 67 <=150 mg/dL 05/14/2017 6:13 PM EST [facility] Comment: < 150 ? Normal 150 - 199 ?Borderline High 200 - 499 ?High ??>= 500 ? Very High HDL 68 >=40 mg/dL 05/14/2017 6:13 PM EST [facility] Comment: ??> 60 ?Optimal 40 - 60 ?Acceptable ?? < 40 ?Low LDL Calculated 73 <=100 mg/dL 05/14/2017 6:13 PM EST [facility] Comment: < 100 ?Optimal 100 - 129 ? Near or above optimal 130 - 159 ? Borderline High 160 - 189 ? High >= 190 ?Very High Non-HDL-C Calculated 86 <=129 mg/dL 05/14/2017 6:13 PM EST [facility] Comment: <130 ?Desirable 130-159 Above Desirable 160-189 Borderline High 190-219 High >= 220 ??Very High Blood Venipuncture / Unknown 05/14/2017 12:04 PM EST 05/14/2017 12:04 PM EST us Thea Rubio MD CHEMISTRY ORDERABLES Final Result [facility] [address] [place] [address] * (ABNORMAL) COMPREHENSIVE METABOLIC PANEL (05/14/2017 12:04 PM EST) Pathologist [facility] Sodium 141 136 - 145 mmol/L 05/14/2017 6:13 PM [facility] Potassium 3.9 3.5 - 5.0 mmol/L 05/14/2017 6:13 PM [facility] Chloride 108(H) 98 - 107 mmol/L 05/14/2017 6:13 PM [facility] Total CO2 21(L) 22 - 29 mmol/L 05/14/2017 6:13 PM [facility] Anion Gap 12 7 - 16 mmol/L 05/14/2017 6:13 PM [facility] Calcium 8.9 8.6 - 10.2 mg/dL 05/14/2017 6:13 PM [facility] Glucose Lvl 75 74 - 100 mg/dL 05/14/2017 6:13 PM [facility] BUN 11 6 - 20 mg/dL 05/14/2017 6:13 PM [facility] Creatinine 0.80 0.51 - 1.30 mg/dL 05/14/2017 6:13 PM [facility] Albumin 4.2 3.5 - 5.2 gm/dL 05/14/2017 6:13 PM [facility] Total Protein 7.0 6.4 - 8.3 gm/dL 05/14/2017 6:13 PM [facility] Bili Total 0.4 0.1 - 1.3 mg/dL 05/14/2017 6:13 PM [facility] ALT 11 <=41 IU/L 05/14/2017 6:13 PM [facility] AST 15 <=40 IU/L 05/14/2017 6:13 PM [facility] Alk Phos 67 35 - 104 IU/L 05/14/2017 6:13 PM [facility] GFR Afr Am 110 mL/min/1.7 3 m2 05/14/2017 6:13 PM [facility] GFR Non Afr Am 96 mL/min/1.7 3 m2 05/14/2017 6:13 PM [facility] Comment: GFR Afr [...] Thea Rubio MD CHEMISTRY ORDERABLES Final Result [facility] [address] [place] [address] * HPV HIGH RISK (04/18/2017 2:30 PM EST) HPV HR Not Detected Not Detected 04/24/2017 6:35 PM EST [facility] Thin Prep SPECIMEN FROM UTERINE CERVIX / Unknown 04/18/2017 2:30 PM EST 04/23/2017 3:49 PM EST Narrative [facility] - 04/24/2017 6:35 PM EST This test [...] MICROBIOLOGY - GENERAL ORD ERABLES Final Result [facility] [address] [place] [address] * (ABNORMAL) MENTAL MEASUREMENTS TEACHER CYTOLOGY REQUEST (PAP ONLY) (04/18/2017 2:30 PM EST) CASE REPORT Gynecologic Cytology Report ? Case: [id number] ? Authorizing Provider: ??Thea Rubio MD ?Collected: ? 04/18/2017 1430 ? Ordering Location: ? [facility] ? Received: ?04/18/2017 1430 ? First Screen: ?Lauren De Anda, CT ? Pathologist: ? Nury Jerry MD ? Specimen: ?LIQUID-BASED PAP - CERVICAL, Cervix ? 04/23/2017 3:49 PM EST [facility] PAP FINAL DIAGNOSIS Atypical squamous cells of undetermined significance(A) 04/23/2017 3:49 PM [facility] SMEAR ADEQUACY Satisfactory for evaluation 04/23/2017 3:49 PM EST [facility] ENDOCERVICAL T-ZONE Transformation zone present 04/23/2017 3:49 PM EST [facility] EMBEDDED IMAGES 8 3:49 PM [facility] PAP DISCLAIMER The Pap Smear is a screening test that aids in the detection of cervical cancer and cancer precursors. Both false positive and false negative results can occur. The test should be used at regular intervals, and positive results should be confirmed before definitive therapy. 04/23/2017 3:49 PM EST [facility] Thin Prep SPECIMEN FROM UTERINE CERVIX / Unknown 04/18/2017 2:30 PM EST 04/18/2017 2:30 PM EST us Thea Rubio MD CYTOLOGY ORDERABLES Final Result [facility] [address] [place] [address] documented in this encounter Visit Diagnoses Diagnosis Well adult exam- Primary Routine general medical examination at a health care facility Visit for gynecologic examination Routine gynecological examination documented in this encounter Care Teams Almond Paste Molder Relationship Specialty Start Date End Date Thea Rubio MD PCP - General Family Medicine 09/13/14 07/16/22 documented as of this encounter
--- OUTSIDE RECORDS SUMMARY | 2024-03-15 10:02 | XMS_ITS | Encounter Summary ---
Author Organization [place] [address] Care Team Providers Care Instrument Maker And Repairer Name Role Phone Thea Rubio MD Primary Care Provider [phone]- [phone] Reason for Visit * Reason Comments Neck Pain pt states she thinks she pulled a muscle from coughing Cough for 4 to 5 days, als o has runny nose Encounter Details Date Type Department Care Team (Late Contact Info) Description 06/11/2015 12:48 PM EST - 06/11/2015 1:45 PM EST Emergency [facility] [address] [place] [address] Bud Ibarra MD [address] [place] [address] Bronchitis (Primary Dx); Cervical strain, acute, [...] Code Departure Means Destination Home or Self Fdc documented in this encounter ED Notes * [...] and surgical history. History provided by: Patient legal associate used: No Allergies Allergen Reactions ??? Aspirin [...] Clinical Support [facility] [address] [place] [address] documented as of this encounter Procedures Procedure [...] encounter documented in this encounter Care Teams Instrument Maker And Repairer Relationship Specialty Start Date End Date Thea Rubio MD PCP - General Family Medicine 09/13/14 07/16/22 documented as of this encounter
--- OUTSIDE RECORDS SUMMARY | 2024-03-15 10:02 | XMS_ITS | Encounter Summary ---
Author Organization [place] [address] Care Team Providers Care Manufacturing Support Engineer Name Role Phone Yuliet Norman MD Primary Care Provider [phone] Encounter Details Date Type Department Care Team (Late st Contact Info) Description 07/20/2012 1:04 PM EDT - 07/20/2012 11:59 PM EDT Hospital Encounter [facility] [address] [place] [address] [place] [address] [place] [address] Thyroid mass Discharge Disposition: Home or Self [...] in this encounter Progress Notes * Heather Garcia RDMS - 07/22/2012 10:29 AM EDT Called [...] Clinical Support [facility] [address] [place] [address] documented as of this encounter Procedures Procedure Name Priority Date/Time Associated Diagnosis Comments US GUIDED THYROID BIOPSY Routine 07/20/2012 2:18 PM EDT Thyroid mass NON-GAMMA RAY OPERATOR CYTOLOGY REPORT Routine 07/20/2012 1:56 PM EDT [...] using ultrasound guidance. us Yuliet Norman MD [facility] US ORDERABLES Final Result * NON-GAMMA RAY OPERATOR CYTOLOGY REPORT (07/20/2012 1:56 PM EDT) Non-[facility] Medical Cytology Report ? PATIENT NAME:ISHAN CHILDRESS ? Non-[facility] Medical Cytology Report ? Accession Number ?Collected Date/Time ? Received Date/Time ? [id number] ? 07/20/12 13:56 EDT ?07/21/12 10:03 EDT [...] epithelial cells present for ? evaluation. ? Pattern Shop Supervisor:Bong Miller, ??DO ?07/21/2012 ? Completed by: ?LEONARDO LOVELL MD ?(Electronically signed by) ?07/21/2012 ? [facility] ? Gross Description ? 1)FNA, Thyroid (Left Upper Lobe): received 4 direct smears. ? Evaluation Episode #1: Adequate/DRB ? 2)FNA, Thyroid (Left Lower Lobe): received 4 direct smears. ? Evaluation Episode #1: Inadequate/DRB [facility] 07/20/2012 1:56 PM EDT us Felix Ortiz III, MD CYTOLOGY ORDERABLES Final Result Performing Organization Address City/State/[facility] Co de Phone Number [facility] [address] [place] [address] documented in this encounter Visit Diagnoses Diagnosis Thyroid mass Unspecified disorder of thyroid documented in this encounter Care Teams Manufacturing Support Engineer Relationship Specialty Start Date End Date Yuliet Norman MD PCP - General 11/22/10 09/12/14 documented as of this encounter
--- OUTSIDE RECORDS SUMMARY | 2024-03-15 10:02 | XMS_ITS | Encounter Summary ---
Author Organization [place] [address] Care Team Providers Care Analysis Evaluator Name Role Phone Thea Rubio MD Primary Care Provider [phone] Reason for Visit * Reason Onset Date Comments ED Follow-Up Call 06/21/2015 Encounter Details Date Type Department Care Team (Late st Contact Info) Description 06/21/2015 Patient Outreach [facility] [address] [place] [address] Susan Oliveira RMA [address] [place], [place] [id number] ED Follow-Up Call Social History Tobacco Use [...] discharge to home / self-care from a [facility] (ED). ?? Patient reports feeling [...] contact their primary care office or physician data management consultant to ensure we meet their needs. Please remind patients to CALL THEIR DOCTOR FIRST before going to the Emergency Department. documented in this encounter Plan of Treatment Upcoming Encounters Date Type Department Care Team (Late st Contact Info) Description 04/24/2024 10:45 AM EST Clinical Support [facility] [address] [place] [address] documented as of this encounter Visit Diagnoses Not on filedocumented in this encounter Care Teams Analysis Evaluator Relationship Specialty Start Date End Date Thea Rubio MD PCP - General Family Medicine 09/13/14 07/16/22 documented as of this encounter
--- OUTSIDE RECORDS SUMMARY | 2024-03-15 10:02 | XMS_ITS | Encounter Summary ---
Author Organization [place] [address] Care Team Providers Care Desktop Operator Name Role Phone Yuliet Norman MD Primary Care Provider [phone] Reason for Visit * Reason Comments Nasal Congestion Runny nose and conge stion and feels like body aches Encounter Details Date Type Department Care Team (Late Contact Info) Description 04/24/2012 4:59 PM EST - 04/24/2012 5:47 PM EST Emergency [facility] [place] [address] Chela Last MD [address] [place] [address] [place] [address] Nasal congestion (Primary Dx); Acute URI [...] through Care Everywhere. * COLD, COMMON, ADULT (HAITIAN) * UPPER RESPIRATORY INFECTION (URI), ADULT, [id number] (HAITIAN) * VIRAL INFECTIONS, [id number] (HAITIAN) documented in this encounter Medications at Time [...] Code Departure Means Destination Home or Self Detention documented in this encounter ED Notes * [...] headache, no abdominal pain. She states her buallk-ke-zsc had similar symptoms last week. The patient [...] 04/24/2024 10:45 AM EST Clinical Support [facility] [address] [place] [address] documented as of this encounter Visit Diagnoses Diagnosis Nasal congestion- Primary Other diseases of nasal cavity and sinuses Acute URI Acute upper respiratory infections of unspecified site documented in this encounter Care Teams Desktop Operator Relationship Specialty Start Date End Date Yuliet Norman MD PCP - General 11/22/10 09/12/14 documented as of this encounter
--- OUTSIDE RECORDS SUMMARY | 2024-03-15 10:02 | XMS_ITS | Encounter Summary ---
Author Organization [place] [address] Care Team Providers Care Occupational Medicine Physician Name Role Phone Thea Rubio MD Primary Care Provider [phone] Reason for Visit * Reason Onset Date Comments Other 08/28/2015 Encounter Details Date Type Department Care Team (Late Contact Info) Description 08/28/2015 Telephone [facility] [address] [place] [address] Thea Rubio MD [address] [place] [address] [id number] Other Social History Tobacco Use Types Packs/Day [...] Clinical Support [facility] [address] [place] [address] documented as of this encounter Visit Diagnoses Not on filedocumented in this encounter Care Teams Occupational Medicine Physician Relationship Specialty Start Date End Date Thea Rubio MD PCP - General Family Medicine 09/13/14 07/16/22 documented as of this encounter
--- OUTSIDE RECORDS SUMMARY | 2024-03-15 10:02 | XMS_ITS | Encounter Summary ---
Author Organization [place] [address] Care Team Providers Care Lining Caser Name Role Phone Yuliet Norman MD Primary Care Provider [phone] Reason for Visit * Reason Comments Headache started last night, states has gotten worse as the day has progrees. Encounter Details Date Type Department Care Team (Late Contact Info) Description 06/07/2013 5:19 PM EST - 06/07/2013 7:34 PM EST Emergency [facility] [address] [facility] [place] [address] Gerard Geiger, [address] [address] Migraine (Primary Dx) Discharge Disposition: [...] Document Reviewed: 03/27/2012 ExitCare?? Patient Information ??2013 [employer] 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 ED Clinical Impression: [...] EST Clinical Support [facility] [address] [place] [address] documented as of this encounter [...] RN) documented in this encounter Care Teams Lining Caser Relationship Specialty Start Date End Date Yuliet Norman MD PCP - General 11/22/10 09/12/14 documented as of this encounter
--- OUTSIDE RECORDS SUMMARY | 2024-03-15 10:02 | XMS_ITS | Encounter Summary ---
Author Organization [place] [address] Care Team Providers Care Fractionating Still Operator Name Role Phone Yuliet Norman MD Primary Care Provider [phone] Reason for Visit * Reason Comments Cough Pt. amb to triage c/ o cough, fever, congestion and runny nose for the past few days. CPTA: Nyquill/Dayquill Encounter Details Date Type Department Care Team (Late st Contact Info) Description 04/17/2014 6:17 PM EST - 04/17/2014 6:50 PM EST [facility] [place] [address] Ulysses Quiros MD Viral syndrome (Primary Dx); [...] not have a doctor, you can call [phone] for a family doctor. Return here for worsening of symptoms. * Attachments The following attachments cannot be sent through Care Everywhere. * VIRAL SYNDROME (DIVEHI) documented in this encounter Discharge Disposition Disposition [...] 04/24/2024 10:45 AM EST Clinical Support [facility] [address] [place] [address] documented as of this encounter Visit Diagnoses Diagnosis Viral syndrome- Primary Unspecified viral infection, in conditions classified elsewhere and of unspecified site Unspecified viral infection, in conditions classified elsewhere and of unspecified site documented in this encounter Care Teams Fractionating Still Operator Relationship Specialty Start Date End Date Yuliet Norman MD PCP - General 11/22/10 09/12/14 documented as of this encounter
--- OUTSIDE RECORDS SUMMARY | 2024-03-15 10:02 | XMS_ITS | Encounter Summary ---
Author Organization [place] [address] Care Team Providers Care Coat Joiner Name Role Phone Thea Rubio MD Primary Care Provider [phone] Encounter Details Date Type Department Care Team (Late Contact Info) Description 06/12/2015 Abstract [facility] [address] [place] [address] Thea Rubio MD [address] [place], [place] [id number] Social History Tobacco Use Types Packs/Day Years [...] Clinical Support [facility] [address] [place] [address] documented as of this encounter Visit Diagnoses Not on filedocumented in this encounter Care Teams Coat Joiner Relationship Specialty Start Date End Date Thea Rubio MD PCP - General Family Medicine 09/13/14 07/16/22 documented as of this encounter
--- OUTSIDE RECORDS SUMMARY | 2024-03-15 10:02 | XMS_ITS | Encounter Summary ---
Author Organization [place] [address] Care Team Providers Care Director Of Global Talent Name Role Phone Thea Rubio MD Primary Care Provider [phone] Reason for Visit * Reason Comments Establish Care Encounter Details Date Type Department Care Team (Late st Contact Info) Description 09/13/2014 9:30 AM EDT Office Visit [facility] [address] [place] [address] Thea Rubio MD [address] [place], [place] [id number] Well adult (Primary Dx); Congenital biliary atresia [...] 04/24/2024 10:45 AM EST Clinical Support [facility] [address] [place] [address] documented as of this encounter [...] 03/25/2017 added in this encounter Care Teams Director Of Global Talent Relationship Specialty Start Date End Date Thea Rubio MD PCP - General Family Medicine 09/13/14 07/16/22 documented as of this encounter
--- OUTSIDE RECORDS SUMMARY | 2024-03-15 10:02 | XMS_ITS | Encounter Summary ---
Author Organization [place] [address] Care Team Providers Care Briar Cutter Name Role Phone Thea Rubio MD Primary Care Provider [phone] Reason for Visit * Reason Onset Date Comments ED Follow-Up Call 06/12/2015 Encounter Details Date Type Department Care Team (Late st Contact Info) Description 06/12/2015 Patient Outreach [facility] [address] [place] [address] Susan Oliveira RMA [address] [place], [place] [id number] ED Follow-Up Call Social History Tobacco Use [...] discharge to home / self-care from a [facility] (ED). ?? Patient reports feeling [...] contact their primary care office or physician application processor to ensure we meet their needs. Please remind patients to CALL THEIR DOCTOR FIRST before going to the Emergency Department. documented in this encounter Plan of Treatment Upcoming Encounters Date Type Department Care Team (Late st Contact Info) Description 04/24/2024 10:45 AM EST Clinical Support [facility] [address] [place] [address] documented as of this encounter Visit Diagnoses Not on filedocumented in this encounter Care Teams Briar Cutter Relationship Specialty Start Date End Date Thea Rubio MD PCP - General Family Medicine 09/13/14 07/16/22 documented as of this encounter
--- OUTSIDE RECORDS SUMMARY | 2024-03-15 10:02 | XMS_ITS | Encounter Summary ---
Author Organization [place] [address] Care Team Providers Care Commercial Real Estate Assistant Name Role Phone Thea Rubio MD Primary Care Provider [phone] Encounter Details Date Type Department Care Team (Latest Contact Info) Description 06/23/2015 10:44 AM EST - 06/23/2015 11:59 PM EST Hospital Encounter [facility] [address] [place], [place] [phone] Neck pain Discharge Disposition: Home or Self [...] Description 04/24/2024 10:45 AM EST Clinical Support [facility] [address] [place] [address] documented as of this encounter Procedures Procedure [...] ODONTOID AND OBLIQUE ??06/23/2015 11:05 AM HISTORY: ??M54.2-[id number]-CM Alignment is anatomic. Disc interspaces and vertebral body heights are maintained. No fracture-dislocation or significant degenerative changes noted. Procedure Note Kris Pendleton MD - 06/23/2015 XR CERVICAL SPINE AP LATERAL ODONTOID AND OBLIQUE 06/23/2015 11:05 AM HISTORY: M54.3-Skhezzuqwzy-IKD-10-CM Alignment is anatomic. Disc interspaces and vertebral body heights are maintained. No fracture-dislocation or significant degenerative changes noted. IMPRESSION: Normal cervical spine. us Thea [facility] ORD ERABLES Final Result documented in this encounter Visit Diagnoses Diagnosis Neck pain Cervicalgia documented in this encounter Care Teams Commercial Real Estate Assistant Relationship Specialty Start Date End Date Thea Rubio MD PCP - General Family Medicine 09/13/14 07/16/22 documented as of this encounter
--- OUTSIDE RECORDS SUMMARY | 2024-03-15 10:02 | XMS_ITS | Encounter Summary ---
Author [place] [address] Care Team Providers Care Social And Political Studies Professor Name Role Phone Yuliet Norman MD Primary Care Provider [phone] Reason for Visit * Reason Comments Otalgia x today has been hav ing right ear, jaw, and neck pain. States unsure if it is more her teeth or ear. Denies discharge from ear. Encounter Details Date Type Department Care Team (Late st Contact Info) Description 03/13/2011 6:35 PM EST - 03/13/2011 7:14 PM EST Emergency [facility] [address] [place] [address] Genaro Savage MD [address] [place] [address] TMJ inflammation Discharge Disposition: Home [...] Care Everywhere. 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
--- OUTSIDE RECORDS SUMMARY | 2024-03-15 10:02 | XMS_ITS | Encounter Summary ---
Author Organization [place] [address] Care Team Providers Care Shipping And Receiving Name Role Phone Thea Rubio MD Primary Care Provider [phone] Reason for Visit * Reason Onset Date Comments Other 08/28/2015 Encounter Details Date Type Department Care Team (Late st Contact Info) Description 08/28/2015 Telephone [facility] [address] [place] [address] Thea Rubio MD [address] [place] [address] [phone] Other Social History Tobacco Use Types Packs/Day [...] 04/24/2024 10:45 AM EST Clinical Support [facility] [address] [place] [address] documented as of this encounter Visit Diagnoses Not on filedocumented in this encounter Care Teams Shipping And Receiving Relationship Specialty Start Date End Date Thea Rubio MD PCP - General Family Medicine 09/13/14 07/16/22 documented as of this encounter
--- OUTSIDE RECORDS SUMMARY | 2024-03-15 10:02 | XMS_ITS | Encounter Summary ---
Author Organization [place] [address] Care Team Providers Care Lining Marker Name Role Phone Yuliet Norman MD Primary Care Provider [phone] Reason for Visit * Reason Comments Headache head pressure in bas e of skull, started few hours ago. also having dizziness/lightheadedness. denies fever. denies photo/phonophobia. denies nausea. denies stiff neck. no meds taken for pain Encounter Details Date Type Department Care Team (Late st Contact Info) Description 04/10/2012 8:44 PM EST - 04/10/2012 9:43 PM EST Emergency [facility] [address] [facility] [place] [address] Gerard Geiger, [address] [address] Cephalgia (Primary Dx) Discharge Disposition: [...] sent through Care Everywhere. * HEADACHE, FAQ'S ([place]) documented in this encounter Medications at Time [...] Clinical Support [facility] [address] [facility] [place] [address] documented as of this encounter Visit [...] documented in this encounter Care Teams Lining Marker Relationship Specialty Start Date End Date Yuliet Norman MD PCP - General 11/22/10 09/12/14 documented as of this encounter
--- OUTSIDE RECORDS SUMMARY | 2024-03-15 10:02 | XMS_ITS | Encounter Summary ---
Author Organization [place] [address] Care Team Providers Care Respiratory Therapy Technician Name Role Phone Yuliet Norman MD Primary Care Provider [phone] Encounter Details Date Type Department Care Team (Latest Contact Info) Description 03/12/2014 11:20 AM EST - 03/12/2014 11:59 PM EST Hospital Encounter [facility] [address] [place] [address] Routine gynecological examination (Primary Dx); [...] Clinical Support [facility] [address] [place] [address] Scheduled Orders Name Type Priority [...] LAB Lymph Percent 29.2 % SE [facility] [place] Percent 7.2 % SE LAB Eos Percent 3.9 % SE LAB Baso Percent 0.9 % [facility] Neut# 4.7 1.8 - 7.7 x10(3)/mcL [facility] Lymph# 2.3 0.6 - 4.8 x10(3)/mcL [facility] [place]# 0.6 0.0 - 1.3 x10(3)/mcL [facility] Eos# 0.3 0.0 - 0.5 x10(3)/mcL [facility] Baso# 0.1 0.0 - 0.2 x10(3)/[facility] Blood specimen (specimen) 03/12/2014 11:34 AM EST 03/12/2014 11:34 AM EST us Yuliet Norman MD HEMATOLOGY ORDERABLES Final Res ult [facility] [address] [place] [address] * CBC WITH AUTO DIFF (03/12/2014 11:34 AM EST) WBC 8.0 4.0 - 11.0 x10(3)/mcL [facility] RBC 4.78 3.80 - 5.10 x10(6)/mcL [facility] Hgb 13.6 12.0 - 15.6 gm/dL [facility] Hct 40.9 35.7 - 45.9 % [facility] MCV 85.6 82.5 - 99.8 fL [facility] MCH 28.5 27.0 - 34.3 pg [facility] MCHC 33.4 32.1 - 35.3 gm/dL [facility] RDW 13.7 11.5 - 15.0 % [facility] Platelet 307 144 - 423 x10(3)/mcL [facility] MPV 7.9 6.8 - 10.8 fL [facility] Blood specimen (specimen) UPPER LIMB STRUCTURE / Unknown 03/12/2014 11:34 AM EST 03/12/2014 11:34 AM EST us Yuliet Norman MD HEMATOLOGY ORDERABLES Final Res ult Performing Organization Address [facility] Co de Phone Number [facility] [address] [place] [address] * TSH REFLEX (03/12/2014 11:34 AM EST) TSH Reflex 1.250 0.270 - 4.200 mcIU/mL [facility] Blood specimen (specimen) UPPER LIMB STRUCTURE / Unknown 03/12/2014 11:34 AM EST 03/12/2014 2:06 PM EST us Yuliet Norman MD CHEMISTRY ORDERABLES Final Resu lt Performing Organization Address City/[facility] Co de Phone Number [facility] [address] [place] [address] * COMPREHENSIVE METABOLIC PANEL (03/12/2014 11:34 AM EST) Sodium 139 136 - 145 mmol/L [facility] Potassium 4.1 3.5 - 5.0 mmol/L [facility] Chloride 103 98 - 107 mmol/L [facility] Total CO2 24 22 - 29 mmol/L [facility] Anion Gap 12 7 - 16 mmol/L [facility] Calcium 9.2 8.6 - 10.2 mg/dL [facility] Glucose Lvl 83 74 - 100 mg/dL [facility] BUN 8 6 - 20 mg/dL [facility] Creatinine 0.73 0.51 - 1.30 mg/dL [facility] Albumin 4.2 3.5 - 5.2 gm/dL [facility] Total Protein 7.8 6.4 - 8.3 gm/dL [facility] Bili Total 0.2 0.1 - 1.3 mg/dL [facility] AST 18 <=40 IU/L [facility] ALT 9 <=41 IU/L [facility] Alk Phos 69 35 - 104 IU/L [facility] GFR Afr Am >60 SE LAB [...] CHEMISTRY ORDERABLES Edited Res ult - Final [facility] [address] [place] [address] documented in this encounter Visit Diagnoses Diagnosis Routine gynecological examination- Primary Goiter, unspecified documented in this encounter Care Teams Respiratory Therapy Technician Relationship Specialty Start Date End Date Yuliet Norman MD PCP - General 11/22/10 09/12/14 documented as of this encounter
--- OUTSIDE RECORDS SUMMARY | 2024-03-15 10:02 | XMS_ITS | Encounter Summary ---
Author Organization [place] [address] Care Team Providers Care Accounting Instructor Name Role Phone Yuliet Norman MD Primary Care Provider [phone] Reason for Visit * Reason Comments Hand Pain states carried garba ge out last night and no other injury, but pain since I carried the garbage ,pain mostly at base of fingers Encounter Details Date Type Department Care Team (Late st Contact Info) Description 05/07/2013 9:45 AM EST - 05/07/2013 11:33 AM EST Emergency [facility] [address] [place] [address] Vilma Cotto MD [address] [place] [address] Finger strain (Primary Dx) Discharge Disposition: [...] Code Departure Means Destination Home or Self Prison documented in this encounter ED Notes * Elba Saunders - 05/07/2013 11:26 AM EST Finger splint was held in place with a small mariaa wrap * Chery Quiñones PA-C - 05/07/2013 10:42 AM EST [...] history is provided by the patient. No english as a second language teacher was used. Allergies Allergen Reactions ??? Aspirin [...] 04/24/2024 10:45 AM EST Clinical Support [facility] [address] [place] [address] documented as of this encounter Procedures Procedure [...] 05/07/2013 documented in this encounter Care Teams Accounting Instructor Relationship Specialty Start Date End Date Yuliet Norman MD PCP - General 11/22/10 09/12/14 documented as of this encounter
--- OUTSIDE RECORDS SUMMARY | 2024-03-15 10:02 | XMS_ITS | Encounter Summary ---
Author Organization [place] [address] Care Team Providers Care Agriculture Manager Name Role Phone Thea Rubio MD Primary Care Provider [phone] Reason for Visit * Reason Onset Date Comments Other 06/28/2015 Encounter Details Date Type Department Care Team (Late st Contact Info) Description 06/28/2015 Telephone [facility] [address] [place] [address] Thea Rubio MD [address] [place] [address] [phone] Other Social History Tobacco Use Types Packs/Day [...] [facility] [address] [place] [address] documented as of this encounter Visit Diagnoses Diagnosis Claustrophobia- Primary Other isolated or specific phobias documented in this encounter Care Teams Agriculture Manager Relationship Specialty Start Date End Date Thea Rubio MD PCP - General Family Medicine 09/13/14 07/16/22 documented as of this encounter
--- OUTSIDE RECORDS SUMMARY | 2024-03-15 10:02 | XMS_ITS | Encounter Summary ---
Author [place] [address] Care Team Providers Care Hub Cutter Apprentice Name Role Phone Yuliet Norman MD Primary Care Provider [phone] Reason for Visit * Reason Comments Migraine Pt states that for t he past couple of hours she has had a severe migraine. Pt states that she has hx of migraines. Pt is out of topamax, did take imitrex. Encounter Details Date Type Department Care Team (Late st Contact Info) Description 10/18/2013 12:20 AM EDT - 10/18/2013 1:42 AM EDT Emergency [facility] [address] [place] [address] Adithya Chen MD [address] [place] [address] Migraine (Primary Dx); Vomiting Discharge Disposition: [...] Document Reviewed: 03/27/2012 ExitCare?? Patient Information ??2013 [employer]. documented in this encounter Discharge Disposition Disposition Code Departure Means Destination Home or Self Half-Way documented in this encounter ED Notes * [...] Clinical Support [facility] [address] [place] [address] documented as of [...] RN) documented in this encounter Care Teams Hub Cutter Apprentice Relationship Specialty Start Date End Date Yuliet Norman MD PCP - General 11/22/10 09/12/14 documented as of this encounter
--- OUTSIDE RECORDS SUMMARY | 2024-03-15 10:02 | XMS_ITS | Encounter Summary ---
Author Organization [place] [address] Care Team Providers Care Fuel Quality Tech Name Role Phone Yuliet Norman MD Primary Care Provider [phone] Reason for Visit * Reason Onset Date Comments Other 08/09/2014 appt. request Encounter Details Date Type Department Care Team (Late st Contact Info) Description 08/09/2014 Telephone [facility] [address] [place] [address] Thea Rubio MD [address] [place] [address] Other (appt. request) Social History Tobacco Use [...] 04/24/2024 10:45 AM EST Clinical Support [facility] [address] [place] [address] documented as of this encounter Visit Diagnoses Not on filedocumented in this encounter Care Teams Fuel Quality Tech Relationship Specialty Start Date End Date Yuliet Norman MD PCP - General 11/22/10 09/12/14 documented as of this encounter
--- OUTSIDE RECORDS SUMMARY | 2024-03-15 10:02 | XMS_ITS | Encounter Summary ---
Author Organization [place] [address] Care Team Providers Care Marketing Intern Name Role Phone Thea Rubio MD Primary Care Provider [phone] Reason for Referral * MRI/CAT Scan (Routine) - Closed Specialty Diagnoses / Procedures Referred By Contac t Referred To Contact Radiology Diagnoses New daily persistent headache Procedures MRI BRAIN W WO CONTRAST Thea Rubio MD Phone: tel: fax: Referral ID Status Reason Start Date Expiration Date Visits Re quested Visits Authorized [id number] Closed 06/23/2015 06/22/2016 1 1 Reason for Visit * Reason Comments Hospital Follow Up Encounter Details Date Type Department Care Team (Late st Contact Info) Description 06/23/2015 10:00 AM EST Office Visit [facility] [address] [place] [address] Thea Rubio MD [address] [place] [phone] New daily persistent headache (Primary Dx); [...] the brain. Treatment for migraine may include qrge-feh-tjvrowz or prescription medications. It may also include [...] the headache after it has started. Examples iqty-dwf-aqrcurn medications, NSAIDs, ergots, and triptans. Q: What [...] a main cause of migraine. Q: Are fbcc-hpc-fvrtcds medications for migraine effective? A: Ktro-dav-rwvvhix, or OTC, medications may be effective in [...] neck. Treatment for tension-type headache may include yjto-noz-clqwxuo or prescriptionmedications. Treatment may also include self- [...] Document Reviewed: 12/05/2008 ExitCare?? Patient Information ??2015 [employer]. This information is not intended to replace advice given to you by your health care provider. Make sure you discuss any questions you have with your health care provider. documented in this encounter Plan of Treatment Upcoming Encounters Date Type Department Care Team (Late st Contact Info) Description 04/24/2024 10:45 AM EST Clinical Support [facility] [address] [place] [address] documented as of this encounter Results * [...] as of this encounter Care Teams Marketing Intern Relationship Specialty Start Date End Date Thea Rubio MD PCP - General Family Medicine 09/13/14 07/16/22 documented as of this encounter
--- OUTSIDE RECORDS SUMMARY | 2024-03-15 10:02 | XMS_ITS | Encounter Summary ---
Author Organization [place] [address] Care Team Providers Care Hybrid Tester Name Role Phone Yuliet Norman MD Primary Care Provider [phone] Reason for Visit * Reason Comments Headache X 1 day. + N/V. Yoan es vision problems. States feels like heart is racing sometimes. CPTA: Diclofenac at 0100. 4 Tylenol at 0100. Encounter Details Date Type Department Care Team (Late st Contact Info) Description 10/09/2012 2:56 AM EDT - 10/09/2012 4:22 AM EDT Emergency [facility] [address] [place] [address] Bud Ibarra MD [address] [place] [address] Headache (Primary Dx) Discharge Disposition: Home [...] It is located mainly in the right anabaptism area and retro-orbital area on the right. [...] Clinical Support [facility] [address] [place] [address] documented as of this encounter Visit Diagnoses [...] RN) documented in this encounter Care Teams Hybrid Tester Relationship Specialty Start Date End Date Yuliet Norman MD PCP - General 11/22/10 09/12/14 documented as of this encounter
--- OUTSIDE RECORDS SUMMARY | 2024-03-15 10:02 | XMS_ITS | Encounter Summary ---
Author Organization [place] [address] Care Team Providers Care Sas Administrator Name Role Phone Thea Rubio MD Primary Care Provider [phone] Reason for Visit * Reason Comments Follow-up on migraines Encounter Details Date Type Department Care Team (Late st Contact Info) Description 03/17/2015 4:15 PM EST [facility] [address] [place] [address] Thea Rubio MD [address] [place] [address] Migraine without aura and without status migrainosus, [...] due to Topamax. ORTEGA are her typical ROTEGA. ORTEGA begin in back of neck as [...] migraines. HOME CARE INSTRUCTIONS ?? Only take gpsv-hno-jakirgl or prescription medicines for pain or discomfort [...] Document Reviewed: 12/13/2013 ExitCare?? Patient Information ??2015 [employer]. This information is not intended to replace advice given to you by your health care provider. Make sure you discuss any questions you have with your health care provider. documented in this encounter Plan of Treatment Upcoming Encounters Date Type Department Care Team (Late st Contact Info) Description 04/24/2024 10:45 AM EST Clinical Support [facility] [address] [place] [address] documented as [...] documented as of this encounter Care Teams Sas Administrator Relationship Specialty Start Date End Date Thea Rubio MD PCP - General Family Medicine 09/13/14 07/16/22 documented as of this encounter
--- OUTSIDE RECORDS SUMMARY | 2024-03-15 10:02 | XMS_ITS | Encounter Summary ---
Author Organization [place] [address] Care Team Providers Care Hydraulic Rubbish Compactor Mechanic Name Role Phone Thea Rubio MD Primary Care Provider [phone] Reason for Visit * Reason Onset Date Comments Other 06/13/2015 Encounter Details Date Type Department Care Team (Late st Contact Info) Description 06/13/2015 Telephone [facility] [address] [place] [address] Thea Rubio MD [address] [place] [address] [phone] Other Social History Tobacco Use Types Packs/Day [...] [facility] [address] [place] [address] documented as of this encounter Visit Diagnoses Not on filedocumented in this encounter Care Teams Hydraulic Rubbish Compactor Mechanic Relationship Specialty Start Date End Date Thea Rubio MD PCP - General Family Medicine 09/13/14 07/16/22 documented as of this encounter
--- OUTSIDE RECORDS SUMMARY | 2024-03-15 10:02 | XMS_ITS | Encounter Summary ---
Author Organization [place] [address] Care Team Providers Care Machine Tailer Name Role Phone Thea Rubio MD Primary Care Provider [phone] Reason for Referral * MRI/CAT Scan (Routine) - Closed Specialty Diagnoses / Procedures Referred By Nancyac t Referred To Contact Radiology Diagnoses New daily persistent headache Procedures MRI BRAIN W WO CONTRAST Thea Rubio MD Phone: tel: fax: Referral ID Status Reason Start Date Expiration Date Visits Re quested Visits Authorized [id number] Closed 06/23/2015 06/22/2016 1 1 Reason for Visit * MRI/CAT Scan (Routine) - Closed Specialty Diagnoses / Procedures Referred By Amalia tuttle Referred To Contact Radiology Diagnoses New daily persistent headache Procedures MRI BRAIN W WO CONTRAST Thea Rubio MD Phone: tel: fax: Referral ID Status Reason Start Date Expiration Date Visits Re quested Visits Authorized [id number] Closed 06/23/2015 06/22/2016 1 1 Encounter Details Date Type Department Care Team (Latest Contact Info) Description 06/29/2015 3:18 PM EST - 06/29/2015 11:59 PM EST Hospital Encounter [facility] [address] [place] [address] Thea Rubio MD [address] [place] [address] New daily persistent headache Discharge [...] AM EST Clinical Support [facility] [address] [place] [address] documented as of this encounter [...] Intravenous, ONCE PRN, 1 dose, Starting on Stephanie 06/29/15 at 1553, Until Stephanie 06/29/15 at 1623, Other, Radiology Procedure, VESICANT , MRI (Contrasts) Given 06/29/2015 4:23 PM EST 15 mL Right Arm documented in this encounter Care Teams Machine Tailer Relationship Specialty Start Date End Date Thea Rubio MD PCP - General Family Medicine 09/13/14 07/16/22 documented as of this encounter
--- OUTSIDE RECORDS SUMMARY | 2024-03-15 10:02 | XMS_ITS | Encounter Summary ---
Author [place] [address] Care Team Providers Care Flatwork Presser Name Role Phone Yuliet Norman MD Primary Care Provider [phone] Encounter Details Date Type Department Care Team (Late st Contact Info) Description 07/11/2012 12:43 PM EDT - 07/11/2012 11:59 PM EDT Hospital Encounter [facility] [address] [place] [address] [place] [address] [place], [place] [phone] Thyroid mass Discharge Disposition: Home or Self [...] Clinical Support [facility] [address] [place] [address] documented as of this encounter Procedures Procedure [...] thyroid documented in this encounter Care Teams Flatwork Presser Relationship Specialty Start Date End Date Yuliet Norman MD PCP - General 11/22/10 09/12/14 documented as of this encounter
--- OUTSIDE RECORDS SUMMARY | 2024-03-15 10:02 | XMS_ITS | Encounter Summary ---
Author Organization [place] [address] Care Team Providers Care Couples Therapist Name Role Phone Thea Rubio MD Primary Care Provider [phone] Reason for Visit * Reason Onset Date Comments Other 08/28/2015 Encounter Details Date Type Department Care Team (Late Contact Info) Description 08/28/2015 Telephone [facility] [address] [place] [address] Thea Rubio MD [address] [place] [address] [phone] Other Social History Tobacco Use Types Packs/Day [...] Clinical Support [facility] [address] [facility] [address] documented as of this encounter Visit Diagnoses Not on filedocumented in this encounter Care Teams Couples Therapist Relationship Specialty Start Date End Date Thea Rubio MD PCP - General Family Medicine 09/13/14 07/16/22 documented as of this encounter
--- OUTSIDE RECORDS SUMMARY | 2024-03-15 10:02 | XMS_ITS | Encounter Summary ---
Author Organization [place] [address] Care Team Providers Care Abrasive Coating Machine Operator Name Role Phone Thea Rubio MD Primary Care Provider [phone] Reason for Visit * Reason Comments Gynecologic Exam Encounter Details Date Type Department Care Team (Late st Contact Info) Description 09/26/2015 10:00 AM EDT Office Visit [facility] [address] [place] [address] Thea Rubio MD [address] [place] [id number] Visit for gynecologic examination (Primary Dx); Well adult exam; Abnormal menstrual cycle; Need for xhfkgukxqj-cqzzwjx-wd rtussis (Tdap) vaccine, adult/adolescent Social History Tobacco [...] Progress Notes * Thea Rubio MD - 09/26/2015 10:12 AM EDT Subjective: Patient ID: Gardenia Childress is a 35 y.o. female. Chief Complaint Patient presents with ??? Gynecologic Exam HPI: Patients past medical, family and social histories were reviewed and updated. There were no changesexcept as noted. No hx abnl pap. Does get radar technician ck yearly as pt has had ovarian and uterine CA. Mom had some type radar technician pre-CA cells. Has menses monthly, very regular, [...] is closing their doors and moving to [facility]. Anticipated last day work was September 14 [...] Patient Instructions - Teha Rubio MD - 09/26/2015 10:42 AM EDT [...] for people who have at least a 01-tlwd-imjr history of smoking and are a current [...] Document Reviewed: 03/09/2014 ExitCare?? Patient Information ??2014 [employer]. This information is not intended to replace advice given to you by your health care provider. Make sure you discuss any questions you have with your health care provider. documented in this encounter Plan of Treatment Upcoming Encounters Date Type Department Care Team (Late st Contact Info) Description 04/24/2024 10:45 AM EST Clinical Support [facility] [address] [place] [address] Scheduled Orders Name Type Priority Associated Diagnoses Orde r Schedule QUALITY CONTROL LEAD CYTOLOGY REQUEST (PAP ONLY) Lab Routine Visit [...] LABORATORY Hct 39.5 35.7 - 45.9 % [facility] MCV 85.1 82.5 - 99.8 fL [facility] MCH 27.6 27.0 - 34.3 pg [facility] MCHC 32.4 32.1 - 35.3 gm/dL [facility] RDW 13.5 11.5 - 15.0 % [facility] Platelet 298 144 - 423 x10(3)/mcL [facility] MPV 8.3 6.8 - 10.8 fL [facility] Blood specimen (specimen) UPPER LIMB STRUCTURE / Unknown 10/07/2015 9:32 AM EDT 10/07/2015 9:32 AM EDT us Thea Rubio MD HEMATOLOGY ORDERABLES Antonia l Result [facility] [address] [id number] * TSH REFLEX (10/07/2015 9:32 AM EDT) TSH Reflex 1.600 0.270 - 4.200 mcIU/mL [facility] Blood specimen (specimen) UPPER LIMB STRUCTURE / Unknown 10/07/2015 9:32 AM EDT 10/07/2015 11:58 AM EDT Thea Rubio MD CHEMISTRY ORDERABLES Final Result Performing Organization Address [facility] de Phone Number [facility] [address] [place] [address] * LIPID PANEL REFLEX (10/07/2015 9:32 AM EDT) Pathologist [facility] Cholesterol 174 <=200 mg/dL [facility] Comment: < 200 ?Desirable 200 - 239 ? Borderline High >= 240 ?High Triglyceride 71 <=150 mg/dL [facility] Comment: < 150 ? Normal 150 - 199 ?Borderline High 200 - 499 ?High ??>= 500 ? Very High HDL 50 >=40 mg/dL [facility] Comment: ?? > 60 ?Optimal 40 - 60 ?Acceptable ?? < 40 ?Low Blood specimen (specimen) UPPER LIMB STRUCTURE / Unknown 10/07/2015 9:32 AM EDT 10/07/2015 11:58 AM EDT us Thea Rubio MD CHEMISTRY ORDERABLES Final Result Performing Organization Address [facility] de Phone Number [facility] [address] [place] [address] * (ABNORMAL) COMPREHENSIVE METABOLIC PANEL (10/07/2015 9:32 AM EDT) Pathologist [facility] Sodium 141 136 - 145 mmol/L [facility] Potassium 4.4 3.5 - 5.0 mmol/L [facility] Chloride 109(H) 98 - 107 mmol/L [facility] Total CO2 21(L) 22 - 29 mmol/L [facility] Anion Gap 11 7 - 16 mmol/L [facility] Calcium 9.0 8.6 - 10.2 mg/dL [facility] Glucose Lvl 90 74 - 100 mg/dL [facility] BUN 9 6 - 20 mg/dL [facility] Creatinine 0.86 0.51 - 1.30 mg/dL [facility] Albumin 4.1 3.5 - 5.2 gm/dL [facility] Total Protein 7.0 6.4 - 8.3 gm/dL [facility] Bili Total 0.3 0.1 - 1.3 mg/dL [facility] AST 17 <=40 IU/L [facility] ALT 16 <=41 IU/L [facility] Alk Phos 69 35 - 104 IU/L [facility] GFR Afr Am >60 [facility] GFR Non Afr Am >60 [facility] Blood specimen (specimen) UPPER LIMB STRUCTURE / Unknown 10/07/2015 9:32 AM EDT 10/07/2015 11:58 AM EDT us Thea Rubio MD CHEMISTRY ORDERABLES Edite d Result - Final [facility] [address] [place] [address] documented in this encounter Visit Diagnoses Diagnosis Visit for gynecologic examination- Primary Routine gynecological examination Well adult exam Routine general medical examination at a health care facility Abnormal menstrual cycle Unspecified disorder of menstruation and other abnormal bleeding from female genital tract Need for cdecgsapjt-ybeumqz-vummhcwix (Tdap) vaccine, adult/adolescent Need for prophylactic vaccination with combined apjrzlvtex-okenxvh-ctevdwfht (DTP) vaccine documented in this encounter Orders Immunization/Injection Count Last Ordered Date First Ordered Date TDAP VACCINE =>7YO IM 1 09/26/2015 documented in this encounter Care Teams Abrasive Coating Machine Operator Relationship Specialty Start Date End Date Thea Rubio MD PCP - General Family Medicine 09/13/14 07/16/22 documented as of this encounter
--- OUTSIDE RECORDS SUMMARY | 2024-03-15 10:02 | XMS_ITS | Encounter Summary ---
Author Organization [place] [address] Care Team Providers Care Shift Supervisor Name Role Phone Thea Rubio MD Primary Care Provider [phone]- [phone] Reason for Visit * Reason Comments Hospital Follow Up Encounter Details Date Type Department Care Team (Late st Contact Info) Description 06/14/2015 2:30 PM EST Office Visit [facility] [address] [place] [address] Thea Rubio MD [address] [place], [place] [id number] Acute bronchitis, unspecified organism (Primary Dx) Social [...] No contacts have same cough. Works at [email or web address]. No travel. No itching of eyes or [...] and will prevent dehydration. ? Only take uswj-akn-biadhbz or prescription medicines as directed by your [...] Document Reviewed: 09/28/2013 ExitCare?? Patient Information ??2015 [employer]. This information is not intended to replace advice given to you by your health care provider. Make sure you discuss any questions you have with your health care provider. documented in this encounter Plan of Treatment Upcoming Encounters Date Type Department Care Team (Late st Contact Info) Description 04/24/2024 10:45 AM EST Clinical Support [address] [address] documented as of this encounter Visit Diagnoses Diagnosis Acute bronchitis, unspecified organism- Primary documented in this encounter Care Teams Shift Supervisor Relationship Specialty Start Date End Date Thea Rubio MD PCP - General Family Medicine 09/13/14 07/16/22 documented as of this encounter
--- OUTSIDE RECORDS SUMMARY | 2024-03-15 10:02 | XMS_ITS | Encounter Summary ---
Author [place] [address] Care Team Providers Care Can Cutter Name Role Phone Yuliet Norman MD Primary Care Provider [phone] Reason for Visit * Reason Comments Fall Pt fell off horse la st night. C/o head, neck pain and left elbow pain. No loc. Encounter Details Date Type Department Care Team (Late st Contact Info) Description 06/13/2012 1:58 PM EST - 06/13/2012 4:48 PM EST Emergency [facility] [place] [address] Matthias Delaney MD [address] [place] [address] Fall (Primary Dx); Closed head injury; [...] relaxer and may make you tired Aleve klmd-gnq-ldipogh as directed for pain followup as instructed for recheck an ultrasound of thyroid Return to ER 4 fever, bowel or bladder incontinence, saddle paresthesias, any numbness, tingling orweakness of the Extremities, any worsening of your symptoms, blood in urine or other concerns. * Attachments The following attachments cannot be sent through Care Everywhere. * BRUISE (CONTUSION, HEMATOMA) ([place]) * HEAD INJURIES, ADULT ([place]) * BACK PAIN ([place]) documented in this encounter Medications at Time [...] or Self Snf documented in this encounter ED Notes * [...] Right wrist, 4 views, 1449, June 03, [id number] Trauma, pain, no priors There is no arthritis. There is no fracture or destructive lesion. The cartilage spaces are maintained. Impression, Normal [place] XR LUMBAR SPINE AP AND LATERAL (Final result) Result time:06/13/12 1511 Final result by John, Rad Results In (06/13/12 15:11:46) Narrative: Lumbar spine, 3 views, 1449, June 03, [id number] Trauma, pain no priors There are 5 [...] sagittal and coronal reformats, 1430, June 03, [id number] Trauma, pain, no contrast, no priors Limited [...] Left elbow, 5 views, 1244, June 03, [id number] Trauma, pain, no priors There is no [...] from Department: Stable Rosalie Rivera PA-C 06/13/12 7130 Rosalie Rivera PA-C 06/13/12 5312 Cosigned by Matthias Delaney MD at 06/13/2012 [...] Clinical Support [facility] [address] [place] [address] documented as of this encounter Procedures Procedure [...] OF CARE TEST ORDERABLE S Final Result [facility] [address] [place] [address] * XR WRIST RIGHT PA LATERAL AND OBLIQUE (06/13/2012 3:03 PM EST) Anatomical Region Laterality Modality Wrist Radiographic Kristi ging 06/13/2012 2:20 PM EST Narrative 06/13/2012 3:34 PM EST Right wrist, 4 views, June 03, [id number] Trauma, pain, no priors There is no arthritis. There is no fracture or destructive lesion. The cartilage spaces are maintained. Impression, Normal [place] Procedure Note Ivon, Rah Avendano MD - 06/13/2012 Right wrist, 4 views, June 03, [id number] Trauma, pain, no priors There is no arthritis. There is no fracture or destructive lesion. Thecartilage spaces are maintained. Impression, Normal [place] Matthias Delaney MD [facility] DIAGNOSTIC IMAGING ORDER CON Final Result * XR LUMBAR SPINE AP AND LATERAL (06/13/2012 3:03 PM EST) Anatomical Region Laterality Modality L-spine Radiographic Kristi ging 06/13/2012 2:20 PM EST Narrative 06/13/2012 3:11 PM EST Lumbar spine, 3 views, 1449, June 03, [id number] Trauma, pain no priors There are 5 lumbar vertebrae. They are normal in shape and alignment. There is no fracture or subluxation. There is no arthritis. Impression, Normal lumbar spine [place] Procedure Note Rah [place]le MD - 06/13/2012 Lumbar spine, 3 views, 1449, June 03, [id number] Trauma, pain no priors There are 5 lumbar vertebrae. They are normal in shape and alignment.There is no fracture or subluxation. There is no arthritis. Impression, Normal lumbar spine [place] Matthias Delaney MD [facility] DIAGNOSTIC IMAGING ORDER CON Final Result * CT CERVICAL SPINE WO CONTRAST (06/13/2012 2:30 PM EST) Anatomical Region Laterality Modality C-spine Computed Tomogra phy 06/13/2012 2:20 PM EST Narrative 06/13/2012 3:[address] of the cervical spine without contrast, including sagittal and coronal reformats, 1430, June 03, [id number] Trauma, pain, no contrast, no priors Limited [...] contrast, including sagittal and coronalreformats, 143June 03, [id number] Trauma, pain, no contrast, no priors Limited [...] Normal noncontrast head CT. Matthias Delaney MD [facility] CT ORDERABLES Final Resu lt * XR ELBOW LEFT AP LATERAL AND OBLIQUES (06/13/2012 12:57 PM EST) Anatomical Region Laterality Modality Elbow Radiographic Kristi ging 06/13/2012 12:2 3 PM EST Narrative 06/13/2012 2:03 PM EST Left elbow, 5 views, 124, June 03, [id number] Trauma, pain, no priors There is no arthritis. There is no fracture or destructive lesion. There is no joint effusion. Impression, Normal [place] Procedure Note Ivon, Rah Avendano MD - 06/13/2012 Left elbow, 5 views, June 03, [id number] Trauma, pain, no priors There is no arthritis. There is no fracture or destructive lesion. Thereis no joint effusion. Impression, Normal [place] Matthias Delaney MD [facility] DIAGNOSTIC IMAGING ORDER CON Final Result documented [...] Ordered Date First Orde red Date ED EAR PULL MACHINE OPERATOR REQUEST BLUE REPORT 1 06/13/2012 PERFORM DIPSTICK URINALYSIS 1 06/13/2012 documented in this encounter Care Teams Can Cutter Relationship Specialty Start Date End Date Yuliet Norman MD PCP - General 11/22/10 09/12/14 documented as of this encounter
--- OUTSIDE RECORDS SUMMARY | 2024-03-15 10:02 | XMS_ITS | Encounter Summary ---
Author Organization [place] [address] Care Team Providers Care Fitness/Wellness Director Name Role Phone Thea Rubio MD Primary Care Provider [phone] Reason for Visit * Reason Onset Date Comments Visit Follow Up 07/03/2015 Encounter Details Date Type Department Care Team (Late Contact Info) Description 07/03/2015 Telephone [facility] [address] [place] [address] Thea Rubio MD [address] [place], [place] [id number] Visit Follow Up Social History Tobacco Use [...] 04/24/2024 10:45 AM EST Clinical Support [facility] [address] [place] [phone] documented as of this encounter Visit Diagnoses Not on filedocumented in this encounter Care Teams Fitness/Wellness Director Relationship Specialty Start Date End Date Thea Rubio MD PCP - General Family Medicine 09/13/14 07/16/22 documented as of this encounter
--- OUTSIDE RECORDS SUMMARY | 2024-03-15 10:02 | XMS_ITS | Encounter Summary ---
Author Organization [place] [address] Care Team Providers Care Honey Blender Name Role Phone Thea Rubio MD Primary Care Provider [phone] Reason for Visit * Reason Comments Neck Pain stiff neck x 4 weeks . seen in the ED last week for bronchitis and cervical strain Encounter Details Date Type Department Care Team (Late st Contact Info) Description 06/19/2015 4:06 PM EST - 06/19/2015 4:56 PM EST Emergency [facility] [address] [facility] [place] [address] Ryan Vargas MD [address] [place] [phone] Muscle spasms of neck (Primary Dx) [...] Clinical Support [facility] [address] [place] [address] documented as of this encounter Visit Diagnoses Diagnosis Muscle spasms of neck- Primary Spasm of muscle documented in this encounter Orders Nursing Count Last Ordered Date First Orde red Date ED PYROMETER TEMPERATURE REGULATOR REQUEST BLUE REPORT 1 06/19/2015 documented in this encounter Care Teams Honey Blender Relationship Specialty Start Date End Date Thea Rubio MD PCP - General Family Medicine 09/13/14 07/16/22 documented as of this encounter
--- OUTSIDE RECORDS SUMMARY | 2024-03-15 10:02 | XMS_ITS | Encounter Summary ---
Author Organization [place] [address] Care Team Providers Care Roll Tender Name Role Phone Yuliet Norman MD Primary Care Provider [phone] Reason for Visit * Reason Comments Emesis nausea since this af ternoon; Emesis x 1 a few min ago Headache posterior h/a, start ed at same time as nausea; Cpta, Diclofenac Encounter Details Date Type Department Care Team (Late st Contact Info) Description 02/27/2013 8:13 PM EST - 02/27/2013 9:58 PM EST Emergency [facility] [address] [place] [address] Matthew Salas MD [address] [place] [phone] Cephalgia (Primary Dx) Discharge Disposition: Home [...] Code Departure Means Destination Home or Self Alf documented in this encounter ED Notes * [...] denies fever, chills or neck pain. Took oyae-iza-prugnbd Tylenol Motrin home without relief. She continues [...] [facility] [address] [place] [address] documented as of this encounter Visit Diagnoses [...] 2051 (IV Started - P rovider: Shara Rapheal RN)2148 (IV STOP - Provider: Sandy Mayberry RN)2151 (Due: IV STOP - Provider: Shara Raphael, IVETTE) documented in this encounter Care Teams Roll Tender Relationship Specialty Start Date End Date Yuliet Norman MD PCP - General 11/22/10 09/12/14 documented as of this encounter
--- OUTSIDE RECORDS SUMMARY | 2024-03-15 10:02 | XMS_ITS | Encounter Summary ---
Author Organization [place] [address] Care Team Providers Care Supervisor Beam Department Name Role Phone Yuliet Norman MD Primary Care Provider [phone] Reason for Visit * Reason Comments Headache ambulated to triage with c/o sharp pain left posterior head. denies other c/o CPTA: ibuprofen Encounter Details Date Type Department Care Team (Late st Contact Info) Description 11/05/2011 12:39 AM EDT - 11/05/2011 1:03 AM EDT [facility] [address] [place] [address] Matthew Salas MD [address] [place] [phone] Occipital neuralgia Discharge Disposition: Home or [...] Description 04/24/2024 10:45 AM EST Clinical Support [address] [address] documented as of this encounter [...] documented in this encounter Care Teams Supervisor Beam Department Relationship Specialty Start Date End Date Yuliet Norman MD PCP - General 11/22/10 09/12/14 documented as of this encounter
--- OUTSIDE RECORDS SUMMARY | 2024-03-15 10:03 | XMS_ITS | Encounter Summary ---
Author Organization [place] [address] Care Team Providers Care Unemployment Examiner Name Role Phone Unavailable Primary Care [...] Clinical Support [facility] [address] [place] [phone] documented as of this encounter Visit Diagnoses Not on filedocumented in this encounter
--- OUTSIDE RECORDS SUMMARY | 2024-03-15 10:03 | XMS_ITS | Encounter Summary ---
Author Organization [place] [address] Care Team Providers Care Automatic Vulcanizing Lead Operator Name Role Phone Unavailable Primary Care Provider Unavailabl e Encounter Details Date Type Department Care Team (Late st Contact Info) Description 03/17/2009 12:01 AM EST - 03/20/2009 6:57 AM EST Hospital Encounter HST [place] [address] [place] [address] Social History Tobacco Use Types [...] [facility] [address] [place] [address] Scheduled Orders Name Type Priority [...] No VT. 2 PAC'S. No SVT. ? Seismology Teacher- ASHLEE BUTLER ? Reading Physician- Jaison SORIANO [...] PVC'S. No VT. 2 PAC'S. No SVT. Seismology Teacher- ASHLEE Mendoza Physician- Jaison SORIANO M.D. Released Date Time- 03/23/09 1352 Yuliet Norman MD [facility] STAR CARD HISTORICAL Fi nal Result documented in this encounter Visit Diagnoses Not on filedocumented in this encounter
--- OUTSIDE RECORDS SUMMARY | 2024-03-15 10:03 | XMS_ITS | Encounter Summary ---
Author Organization [place] [address] Care Team Providers Care Truck Loader Overhead Crane Name Role Phone Unavailable Primary Care Provider [...] 04/24/2024 10:45 AM EST Clinical Support [facility] [address] [place] [address] Scheduled Orders Name Type Priority Associated Diagnoses [...] EST Name: OBIE Flowers : ??1980 VERIFIED [facility] Reason: ??RLQ PAIN *STAT* CT ABD/PELV W/C Dict.Staff: ANANTH MICHAEL [id number] Verified By: ANANTH MICHAEL ?Trice: 05/27/08 ?? [...] 08/04/2009 Name: OBIE Flowers : 1980 VERIFIED [facility] Reason: RLQ PAIN *STAT* CT ABD/PELV W/C Dict.Staff: ANANTH MICHAEL [id number] Verified By: ANANTH MICHAEL Trice: 05/27/08 4:05 [...] end of result us U Unknown IM [facility] RAD HISTORICAL Final Result * CT ABDOMEN W/O CONTRAST (05/27/2008 12:00 AM EST) Anatomical Region Laterality Modality Other 05/27/2008 05/27/2008 Narrative 05/27/2008 12:00 AM EST Name: OBIE Flowers : ??1980 VERIFIED [facility] Reason: ??RLQ PAIN *STAT* CT ABD/PELV W/C Dict.Staff: ANANTH MICHAEL [id number] Verified By: ANANTH MICHAEL ?Trice: 05/27/08 ?? [...] 08/04/2009 Name: OBIE Flowers : 1980 VERIFIED [facility] Reason: RLQ PAIN *STAT* CT ABD/PELV W/C Dict.Staff: ANANTH MICHAEL [id number] Verified By: ANANTH MICHAEL Trice: 05/27/08 4:05 [...]
--- OUTSIDE RECORDS SUMMARY | 2024-03-15 10:03 | XMS_ITS | Encounter Summary ---
Author Organization [place] [address] Care Team Providers Care Tank Car Reconditioner Name Role Phone Unavailable Primary Care Provider [...] Support [facility] [address] [place] [address] Scheduled Orders Name Type Priority Associated Diagnoses [...] VERIFIED ? ADDENDED REPORT ? ADDENDUM# [facility] Reason: ??LUMP Dict.Staff: KAI STACK [id number] Verified By: DANDRE REYNAGA ? Trice: 05/30/08 [...] VERIFIED ? ADDENDED REPORT ? ADDENDUM# [facility] Reason: ??LUMP Dict.Staff: KAI STACK [id number] Verified By: DANDRE REYNAGA ? Trice: 05/30/08 [...] : 1980 VERIFIED ADDENDED REPORT ADDENDUM# [facility] Reason: LUMP Dict.Staff: KAI STACK [id number] Verified By: DANDRE REYNAGA Trice: 05/30/08 4:01 [...] SUGGESTED. lkd VERIFIED ADDENDED REPORT ADDENDUM# [facility] Reason: LUMP Dict.Staff: KAI STACK [id number] Verified By: DANDRE REYNAGA Trice: 05/30/08 12:38 [...]
--- OUTSIDE RECORDS SUMMARY | 2024-03-15 10:03 | XMS_ITS | Encounter Summary ---
Author Organization [place] [address] Care Team Providers Care Financial Sales Associate Name Role Phone Unavailable Primary Care Provider Unavailabl e Encounter Details Date Type Department Care Team (Late st Contact Info) Description 02/13/2009 5:58 PM EDT - 02/13/2009 11:49 PM EDT Hospital Encounter [facility]ST ER ASAEL Matthias Delaney MD [address] [place] [address] Rehana Bird PA-C [address] [place] [address] Social History Tobacco Use Types [...] Clinical Support [facility] [address] [place] [address] Scheduled Orders Name Type Priority [...] PM EDT) Beta hCG Qual Negative Negative [facility] VENOUS BLOOD / Unknown 02/13/2009 6:31 PM EDT 02/13/2009 6:39 PM EDT Narrative [facility] - 02/13/2009 7:21 PM EDT AKA:BETA HCG QUALITATIVE: us Allyn HORTON-C CHEMISTRY ORDERABLES Fin al Result [facility] [address] [place] [address]. [address] LAB * (ABNORMAL) LIPASE LEVEL (02/13/2009 6:31 PM EDT) Lipase Lvl 6(L) 10 - 71 U/L [facility] VENOUS BLOOD / Unknown 02/13/2009 6:31 PM EDT 02/13/2009 6:39 PM EDT Narrative [facility] - 02/13/2009 7:03 PM EDT AKA:LIPASE: us Allyn HORTON-C CHEMISTRY ORDERABLES Fin al Result [facility] [address] [facility]. [address] LAB * CT PELVIS W CONTRAST (02/13/2009 12:00 AM EDT) Anatomical Region Laterality Modality Other 02/13/2009 02/13/2009 Narrative 02/13/2009 12:00 AM EDT Name: OBIE Flowers : ??1980 VERIFIED [facility] Reason: ??ABD PAIN:R/O OBSTRUCTION Dict.Staff: JANA STEVENS III [id number] Verified By: INGRID ZULETA ?Trice: 02/14/09 ?? [...] 08/04/2009 Name: OBIE Flowers : 1980 VERIFIED [facility] Reason: ABD PAIN:R/O OBSTRUCTION Dict.Staff: JANA STEVENS III [id number] Verified By: INGRID ZULETA Trice: 02/14/09 3:16 [...] end of result us U Unknown [facility] HISTORICAL Final Result * CT ABDOMEN W CONTRAST (02/13/2009 12:00 AM EDT) Anatomical Region Laterality Modality Other 02/13/2009 02/13/2009 Narrative 02/13/2009 12:00 AM EDT Name: OBIE Flowers : ??1980 VERIFIED [facility] Reason: ??ABD PAIN:R/O OBSTRUCTION Dict.Staff: JANA STEVENS III [id number] Verified By: INGRID ZULETA ?Trice: 02/14/09 ?? [...] 08/04/2009 Name: OBIE Flowers : 1980 VERIFIED [facility] Reason: ABD PAIN:R/O OBSTRUCTION Dict.Staff: JANA STEVENS III [id number] Verified By: INGRID ZULETA Trice: 02/14/09 3:16 [...] end of result us U Unknown [facility] HISTORICAL Final Result documented in this encounter Visit Diagnoses Not on filedocumented in this encounter
--- OUTSIDE RECORDS SUMMARY | 2024-03-15 10:03 | XMS_ITS | Encounter Summary ---
Author [place] [address] Care Team Providers Care Plate Former Name Role Phone Unavailable Primary Care Provider Unavailabl e Encounter Details Date Type Department Care Team (Late st Contact Info) Description 10/20/2008 2:16 PM EDT - 10/20/2008 11:59 PM EDT Hospital Encounter [facility] LAB EDG Marge Calles MD [address] [place] [address] Social History Tobacco Use Types [...] 04/24/2024 10:45 AM EST Clinical Support [facility] [address] [place] [address] documented as of this encounter Visit Diagnoses Not on filedocumented in this encounter
--- OUTSIDE RECORDS SUMMARY | 2024-03-15 10:03 | XMS_ITS | Encounter Summary ---
Author Organization [place] [address] Care Team Providers Care Shop Steward Name Role Phone Unavailable Primary Care Provider Unavailabl e Encounter Details Date Type Department Care Team (Late st Contact Info) Description 07/04/2003 5:12 AM EST - 07/04/2003 11:59 PM EST Hospital Encounter HST LAB EDG Tcshelia, Thea Pimentel MD [address] [place] [address] Social History Tobacco Use Types Packs/Day Years [...] 04/24/2024 10:45 AM EST Clinical Support [facility] [address] [place] [address] documented as of this encounter Visit Diagnoses Not on filedocumented in this encounter
--- OUTSIDE RECORDS SUMMARY | 2024-03-15 10:03 | XMS_ITS | Encounter Summary ---
Author Organization [place] [address] Care Team Providers Care Law Researcher Name Role Phone Yuliet Norman MD Primary Care Provider [phone] Reason for Visit * Reason Comments Chest Pain complains of chest t ightness starting approx 0715. states at work when symptoms started. also reports that left arm feels funny as well. Encounter Details Date Type Department Care Team (Late st Contact Info) Description 11/22/2010 11:01 AM EDT - 11/22/2010 1:01 PM EDT Emergency [facility] [address] [facility] [place] [address] Ryan Vargas MD [address] [place] [phone] Chest discomfort Discharge Disposition: Home or [...] not worse with exertion. Patient works in [place] but does not think she's done anything [...] is a nonsmoker. Her mother had an PR and has history of congestive heart failure [...] Lymph Percent 6.7 (*) 15.0-45.0 (%) ??? [place] Percent 5.6 0.0-12.0 (%) ??? Eos Percent 0.3 0.0-8.0 (%) ??? Baso Percent 1.9 (*) 0.0-1.0 (%) ??? Neut# 9.83 (*) 1.50-7.80 (x10(3)/mcL) ??? Lymph# 0.77 (*) 0.85-3.90 (x10(3)/mcL) ??? Brunswick# 0.64 0.20-0.95 (x10(3)/mcL) ??? Eos# 0.03 0.01-0.50 [...] Clinical Support [facility] [address] [place] [address] documented as of this encounter [...] 6.7(L) 15.0 - 45.0 % SE LAB [place] Percent 5.6 0.0 - 12.0 % SE LAB Eos Percent 0.3 0.0 - 8.0 % SE LAB Baso Percent 1.9(H) 0.0 - 1.0 % SE LAB Neut# 9.83(H) 1.50 - 7.80 x10(3)/mcL [facility] Lymph# 0.77(L) 0.85 - 3.90 x10(3)/mcL [facility] [place]# 0.64 0.20 - 0.95 x10(3)/mcL [facility] Eos# 0.03 0.01 - 0.50 x10(3)/mcL [facility] Baso# 0.22(H) 0.00 - 0.20 x10(3)/mcL [facility] Blood specimen (specimen) 11/22/2010 11:22 AM EDT 11/22/2010 11:28 AM EDT us Ryan Vargas MD HEMATOLOGY ORDERABLES Final Re sult Performing Organization Address [facility] de Phone Number [facility] [address] [place] [address] * D-DIMER (11/22/2010 11:22 AM EDT) [facility] D-Dimer <230 <=230 ng/mL [facility] Comment: This test has been clinically validated by the tone cabinet assembler and approved by the FDA for exclusion [...] ORDERABLES Final Re sult Performing Organization Address [facility] de Phone Number [facility] [address] [place] [address] * HEPATIC FUNCTION PANEL (11/22/2010 11:22 AM EDT) [facility] Total Protein 7.3 6.2 - 8.3 gm/dL [...] ORDERABLES Final Res ult Performing Organization Address [facility] Co de Phone Number [facility] [address] [place] [address] * (ABNORMAL) LIPASE LEVEL (11/22/2010 11:22 AM EDT) Lipase Lvl 6(L) 10 - 71 IU/L [facility] Blood specimen (specimen) UPPER LIMB STRUCTURE / Unknown 11/22/2010 11:22 AM EDT 11/22/2010 11:28 AM EDT Ryan Vargas MD CHEMISTRY ORDERABLES Final Res ult Performing Organization Address [facility] de Phone Number [facility] [address] [place] [address] * AMYLASE LEVEL (11/22/2010 11:22 AM EDT) Pathologist [facility] Amylase Lvl 34 21 - 101 IU/L [facility] Blood specimen (specimen) UPPER LIMB STRUCTURE / Unknown 11/22/2010 11:22 AM EDT 11/22/2010 11:28 AM EDT Ryan Vargas MD CHEMISTRY ORDERABLES Final Res ult Performing Organization Address [facility] de Phone Number [facility] [address] [place] [address] * TROPONIN-I (11/22/2010 11:22 AM EDT) Troponin-I <0.01 0.01 - 0.05 ng/mL [facility] Comment: Troponin Level ? Significance ?< [...] Vargas MD CHEMISTRY ORDERABLES Final Res ult [facility] [address] [place] [address] * BASIC METABOLIC PANEL (11/22/2010 11:22 AM EDT) Sodium 137 135 - 146 mmol/L [facility] Potassium 4.0 3.5 - 5.3 mmol/L [facility] Chloride 104 98 - 110 mmol/L [facility] Total CO2 26 21 - 33 mmol/L [facility] Anion Gap 7 7 - 16 mmol/L [facility] Calcium 9.4 8.6 - 10.2 mg/dL [facility] Glucose Lvl 93 65 - 99 mg/dL [facility] BUN 8 7 - 25 mg/dL [facility] Creatinine 0.7 0.5 - 1.2 mg/dL [facility] GFR Afr Am >60 [facility] Comment: GFR is estimated using creatinine, [...] us Ryan Vargas MD CHEMISTRY ORDERABLES Edited [facility] [address] [place] [address] * (ABNORMAL) CBC WITH AUTO DIFF (11/22/2010 11:22 AM EDT) WBC 11.5(H) 3.8 - 10.8 x10(3)/mcL [facility] RBC 4.67 3.80 - 5.10 x10(6)/mcL [facility] Hgb 13.3 11.7 - 15.5 gm/dL [facility] Hct 39.7 35.0 - 45.0 % [facility] MCV 85.0 80.0 - 100.0 fL [facility] MCH 28.4 27.0 - 33.0 pg [facility] MCHC 33.4 32.0 - 36.0 gm/dL [facility] RDW 12.8 11.0 - 15.0 % [facility] Platelet 271 140 - 400 x10(3)/mcL [facility] MPV 8.1 7.5 - 11.5 fL [facility] Blood specimen (specimen) UPPER LIMB STRUCTURE / Unknown 11/22/2010 11:22 AM EDT 11/22/2010 11:28 AM EDT Ryan Vargas MD HEMATOLOGY ORDERABLES Final Re sult [facility] [address] [place] [address] * EK EKG 12 LEAD (11/22/2010 10:58 AM EDT) PYRAMIS LINK PYRAMIS Anatomical Region Laterality Modality Electrocardiogra phy 11/22/2010 10:5 8 AM EDT [facility] I MG ECG ORDERABLES Final Result documented in this encounter Visit Diagnoses Diagnosis Chest discomfort Other chest pain documented in this encounter Care Teams Law Researcher Relationship Specialty Start Date End Date Yuliet Norman MD PCP - General 11/22/10 09/12/14 documented as of this encounter
--- OUTSIDE RECORDS SUMMARY | 2024-03-15 10:03 | XMS_ITS | Encounter Summary ---
Author Organization [place] [address] Care Team Providers Care Fax Machine Operator Name Role Phone Unavailable Primary Care [...] 10:45 AM EST Clinical Support [facility] [address] [place] [address] Scheduled Orders Name Type Priority Associated Diagnoses [...] 06/06/2006 Narrative 06/06/2006 12:00 AM EST VERIFIED [facility] Reason: ??fall Dict.Staff: SUNNY ZHANG Verified By: SUNNY ZHANG ?Trice: 06/06/06 ?? 4:29 pm Exams: ??DIAG-WRIST MIN 3-VIEWS RT RIGHT WRIST (FOUR VIEWS): HISTORY: ??Traumatic fall. ??Pain. Normal anatomic alignment. ??No focal displaced fracture or degenerative change. ??Minimal dorsal soft tissue swelling. IMPRESSION: Unremarkable right wrist. EMERSON:ivana end of result Procedure Note Unknown, U - 08/04/2009 VERIFIED [facility] Reason: fall Dict.Staff: SUNNY ZHANG Verified By: SUNNY ZHANG Trice: 06/06/06 4:29 [...]
--- OUTSIDE RECORDS SUMMARY | 2024-03-15 10:03 | XMS_ITS | Encounter Summary ---
Author Organization [place] [address] Care Team Providers Care Peanut Sorter Name Role Phone Unavailable Primary Care Provider Unavailabl e Encounter Details Date Type Department Care Team (Late st Contact Info) Description 12/19/2008 6:12 PM EDT - 12/19/2008 9:08 PM EDT Hospital Encounter HST ER ASAEL Genaro Savage MD [address] [place] [address] Social History Tobacco Use Types [...] 04/24/2024 10:45 AM EST Clinical Support [facility] [address] [place] [address] Scheduled Orders Name Type Priority [...] PM EDT) Beta hCG Qual Negative Negative [facility] VENOUS BLOOD / Unknown 12/19/2008 7:00 PM EDT 12/19/2008 7:00 PM EDT Narrative [facility] - 12/19/2008 7:42 PM EDT AKA:BETA HCG QUALITATIVE: Genaro Savage MD CHEMISTRY ORDERABLES Final Re sult Performing Organization Address [facility] Co de Phone Number [facility] [address] [place] [address]. [address] LAB * LIPASE LEVEL (12/19/2008 7:00 PM EDT) Lipase Lvl 17 10 - 71 U/L [facility] VENOUS BLOOD / Unknown 12/19/2008 7:00 PM EDT 12/19/2008 7:00 PM EDT Narrative [facility] - 12/19/2008 7:24 PM EDT AKA:LIPASE: Genaro Savage MD CHEMISTRY ORDERABLES Final Re sult Performing Organization Address [facility] Co de Phone Number [facility] [address] [place] [address]. [address] LAB * DIAG ABDOMEN KUB/UP &/OR DECUB & CHEST (12/19/2008 12:00 AM EDT) Anatomical Region Laterality Modality Other 12/19/2008 12/19/2008 Narrative 12/19/2008 12:00 AM EDT Name: OBIE Flowers : ??1980 VERIFIED [facility] Reason: ??abd pain in ac 9 Dict.Staff: JANA STEVENS III [id number] Verified By: THEO WALKER ? Trice: 12/20/08 ?? 3:00 pm Exams: ??DIAG-ABD KUB UP/DECUB & PA CXR TWO VIEW CHEST: The heart and lungs are within normal limits. IMPRESSION; ??Normal chest. HILDA/erinn Dictated 12/19/08 at 19:54 hours. end of result Procedure Note Unknown, U - 08/04/2009 Name: OBIE Flowers : 1980 VERIFIED [facility] Reason: abd pain in ac 9 Dict.Staff: JANA STEVENS III [id number] Verified By: THEO WALKER Trice: 12/20/08 3:00 [...]
--- OUTSIDE RECORDS SUMMARY | 2024-03-15 10:03 | XMS_ITS | Encounter Summary ---
Author Organization [place] [address] Care Team Providers Care Automation Test Developer Name Role Phone Unavailable Primary Care Provider Unavailabl e Encounter Details Date Type Department Care Team (Late st Contact Info) Description 01/11/2009 10:00 AM EDT - 01/11/2009 12:29 PM EDT Hospital Encounter HST ER ASAEL Matthew Salas MD [address] [place] [phone] Social History Tobacco Use Types Packs/Day [...] Clinical Support [facility] [address] [place] [phone] documented as of this encounter Procedures Procedure Name Priority Date/Time Associated Diagnosis Comments BETA HCG QUALITATIVE KIT TEST, URINE Routine 01/11/2009 10:50 AM EDT LIPASE LEVEL Routine 01/11/2009 10:50 AM EDT documented in this encounter Results * BETA HUMAN CHORIONIC GONADOTROPIN QUALITATIVE (01/11/2009 10:50 AM EDT) Beta hCG Qual Negative Negative [facility] VENOUS BLOOD / Unknown 01/11/2009 10:50 AM EDT 01/11/2009 11:01 AM EDT Narrative [facility] - 01/11/2009 11:33 AM EDT AKA:BETA HCG QUALITATIVE: us Matthew Salas MD CHEMISTRY ORDERABLES Antonia l Result [facility] [address] [facility]. [address] LAB * (ABNORMAL) LIPASE LEVEL (01/11/2009 10:50 AM EDT) Lipase Lvl 8(L) 10 - 71 U/L [facility] VENOUS BLOOD / Unknown 01/11/2009 10:50 AM EDT 01/11/2009 11:01 AM EDT Narrative [facility] - 01/11/2009 11:26 AM EDT AKA:LIPASE: us Matthew Salas MD CHEMISTRY ORDERABLES Antonia l Result [facility] [address] [place] [address]. [address] LAB documented in this encounter Visit Diagnoses Not on filedocumented in this encounter
--- OUTSIDE RECORDS SUMMARY | 2024-03-15 10:03 | XMS_ITS | Encounter Summary ---
Author Organization [place] [address] Care Team Providers Care Mud Tank Operator Name Role Phone Unavailable Primary Care [...] 04/24/2024 10:45 AM EST Clinical Support [facility] [address] [place] [phone] documented as of this encounter Visit Diagnoses Not on filedocumented in this encounter
--- OUTSIDE RECORDS SUMMARY | 2024-03-15 10:03 | XMS_ITS | Encounter Summary ---
Author Organization [place] [address] Care Team Providers Care Rubber Tire Curer Name Role Phone Unavailable Primary Care Provider Unavailabl e Encounter Details Date Type Department Care Team (Late st Contact Info) Description 11/19/2004 8:16 PM EDT - 11/19/2004 11:59 PM EDT Hospital Encounter HST LAB EDG Tcfinng, Thea Pimentel MD [address] [place], [place] [id number] Social History Tobacco Use Types Packs/Day Years [...] 04/24/2024 10:45 AM EST Clinical Support [facility] [address] [place] [address] documented as of this encounter Visit Diagnoses Not on filedocumented in this encounter
--- OUTSIDE RECORDS SUMMARY | 2024-03-15 10:03 | XMS_ITS | Encounter Summary ---
Author Organization [place] [address] Care Team Providers Care Customer Facilities Supervisor Name Role Phone Unavailable Primary Care Provider [...] Description 04/24/2024 10:45 AM EST Clinical Support [facility] [address] [place] [address] Scheduled Orders Name Type Priority Associated Diagnoses Orde r Schedule CT UPPER EXT W/O CONT Imaging Routine Onc e for 1 Occurrences starting 06/28/2009 until 06/28/2009, 1 completed IR UPPER EXT ARTHO LINK AND LINK KNITTING MACHINE OPERATOR Imaging Routine Once for 1 Occur rences starting 06/28/2009 until 06/28/2009, 1 completed documented as of this encounter Procedures Procedure Name Priority Date/Time Associated Diagnosis Comments SP UPPER EXT ARTHO LINK AND LINK KNITTING MACHINE OPERATOR Routine 10/15/2006 8:[address] UPPER EXT W/O CONT Routine 10/10/2006 8:29 AM EDT documented in this encounter Results * IR UPPER EXT ARTHO LINK AND LINK KNITTING MACHINE OPERATOR (10/15/2006 8:30 AM EDT) Anatomical Region Laterality [...] of the study. CT to follow. ? Lead Material Handler- FAINA GUNDERSON ? Reading Radiologist- ALVIN FORREST [...] portion of the study. CT to follow. Lead Material Handler- FAINA Mendoza Radiologist- ALVIN FORREST M.D. Released Date Time- 10/10/061411 us Matthew Marino MD [facility] HISTORICAL Antonia l Result * [...] are intact. No fractures or dislocations. ? Lead Material Handler- UDAY WOODY ? Reading Radiologist- ALVIN FORREST [...] ligament are intact. No fractures or dislocations. Lead Material Handler- UDAY Mendoza Radiologist- ALVIN FORREST M.D. Released Date Time- 10/10/06 1412 us Matthew Marino MD [facility] Antonia l Result documented in this encounter Visit Diagnoses Not on filedocumented in this encounter
--- OUTSIDE RECORDS SUMMARY | 2024-03-15 10:03 | XMS_ITS | Encounter Summary ---
Author Organization [place] [address] Care Team Providers Care Metal Rivet Machine Operator Name Role Phone Unavailable Primary Care Provider Unavailabl e Encounter Details Date Type Department Care Team (Late st Contact Info) Description 04/12/1999 7:00 PM EST - 04/12/1999 8:05 PM EST Hospital Encounter [facility] Kait Kumar MD [address] [place] [phone] Social History Tobacco Use Types Packs/Day [...] 04/24/2024 10:45 AM EST Clinical Support [facility] [address] [place] [address] documented as of this encounter Visit Diagnoses Not on filedocumented in this encounter
--- OUTSIDE RECORDS SUMMARY | 2024-03-15 10:03 | XMS_ITS | Encounter Summary ---
Author Organization [place] [address] Care Team Providers Care Watch Leader Name Role Phone Unavailable Primary Care Provider [...] 10:45 AM EST Clinical Support [facility] [address] [place] [address] documented as of this encounter Visit Diagnoses Not on filedocumented in this encounter
--- OUTSIDE RECORDS SUMMARY | 2024-03-15 10:03 | XMS_ITS | Encounter Summary ---
Author Organization [place] [address] Care Team Providers Care House Officer Name Role Phone Unavailable Primary Care Provider Unavailabl e Encounter Details Date Type Department Care Team (Late st Contact Info) Description 04/04/2009 12:01 AM EST - 04/04/2009 11:59 PM EST Hospital Encounter [facility] [place] [address] [place] [phone] Camila Jasso MD [address] [place] [address] Social History Tobacco Use Types Packs/Day [...] 04/24/2024 10:45 AM EST Clinical Support [facility] [address] [place] [address] Scheduled Orders Name Type Priority Associated Diagnoses Orde r Schedule US PELVIS/BUSINESS PROPOSAL REP CHIEF LIBRARIAN WORK WITH BLIND Imaging Routine Once fo r 1 Occurrences starting 06/30/2009 until 06/30/2009, 1 completed documented as of this encounter Procedures Procedure Name Priority Date/Time Associated Diagnosis Comments US PELVIS/BUSINESS PROPOSAL REP CHIEF LIBRARIAN WORK WITH BLIND Routine 04/04/2009 8:3 9 AM EST documented in this encounter Results * US PELVIS/BUSINESS PROPOSAL REP CHIEF LIBRARIAN WORK WITH BLIND (04/04/2009 8:39 AM EST) Anatomical Region Laterality [...] right ovary. Pelvic ultrasound otherwise negative. ? Priming Mixture Carrier- SAQIB ZUNIGA ? Reading Physician- ALVIN FORREST [...] follicle, right ovary. Pelvic ultrasound otherwise negative. Priming Mixture Carrier- SAQIB Mendoza Physician- ALVIN FORREST M.D. Released Date Time- 04/04/09 5100 Camila Jasso MD [facility] HISTORICAL Final Result documented in this encounter Visit Diagnoses Not on filedocumented in this encounter
--- OUTSIDE RECORDS SUMMARY | 2024-03-15 10:03 | XMS_ITS | Encounter Summary ---
Author Organization [place] [address] Care Team Providers Care Passenger Car Inspector Name Role Phone Unavailable Primary Care Provider Unavailabl e Encounter Details Date Type Department Care Team (Late st Contact Info) Description 12/12/2004 12:25 PM EDT - 12/12/2004 11:59 PM EDT Hospital Encounter HST RADIOLOGY EDG Thea Rubio MD [address] [place], [place] [id number] Social History Tobacco Use Types Packs/Day Years [...] AM EST Clinical Support [facility] [address] [place] [address] Scheduled Orders Name Type Priority Associated Diagnoses Orde r Schedule US PELVIS/CHIEF NUCLEAR MEDICINE TECHNOLOGIST SOCIAL SCIENCES LECTURER Imaging Routine Once fo r 1 Occurrences starting 06/27/2009 until 06/27/2009, 1 completed documented as of this encounter Procedures Procedure Name Priority Date/Time Associated Diagnosis Comments US PELVIS/CHIEF NUCLEAR MEDICINE TECHNOLOGIST SOCIAL SCIENCES LECTURER Routine 12/12/2004 12: 42 PM EDT documented in this encounter Results * US PELVIS/CHIEF NUCLEAR MEDICINE TECHNOLOGIST SOCIAL SCIENCES LECTURER (12/12/2004 12:42 PM EDT) Anatomical Region Laterality [...] Otherwise unremarkable pelvic ultrasound. ?? Yamile ? Renewals Specialist- RADHA GONZALEZ ? [place] Radiologist- TATIANA FOX [...] other debris. Otherwise unremarkable pelvic ultrasound. Yamile Renewals Specialist- RADHA GONZALEZ [place] Radiologist- TATIANA FOX MD Released Date Time- 12/12/04 1529 us Thea Rubio MD [facility] Final Result documented in this encounter Visit Diagnoses Not on filedocumented in this encounter
--- OUTSIDE RECORDS SUMMARY | 2024-03-15 10:03 | XMS_ITS | Encounter Summary ---
Author Organization [place] [address] Care Team Providers Care Pretzel Twister Name Role Phone Unavailable Primary Care Provider [...] Clinical Support [facility] [address] [place] [address] documented as of this encounter Visit Diagnoses Not on filedocumented in this encounter
--- OUTSIDE RECORDS SUMMARY | 2024-03-15 10:03 | XMS_ITS | Encounter Summary ---
Author Organization [place] [address] Care Team Providers Care Competitive Intelligence Analyst Name Role Phone Unavailable Primary Care [...] 04/24/2024 10:45 AM EST Clinical Support [facility] [address] [place] [address] Scheduled Orders Name Type Priority Associated Diagnoses [...] OBIE Flowers : ??1980 VERIFIED [facility] Reason: ??PAIN US PELVIC Dict.Staff: THEO WALKER [id number] Verified By: DARNELL PAK ?Trice: 10/22/08 ??10:14 [...] OBIE Flowers : 1980 VERIFIED [facility] Reason: PAIN US PELVIC Dict.Staff: THEO WALKER [id number] Verified By: DARNELL PAK Trice: 10/22/08 10:14 [...] OBIE Flowers : ??1980 VERIFIED [facility] Reason: ??PAIN US PELVIC Dict.Staff: THEO WALKER [id number] Verified By: DARNELL PAK ?Trice: 10/22/08 ??10:14 [...] OBIE Flowers : 1980 VERIFIED [facility] Reason: PAIN US PELVIC Dict.Staff: THEO WALKER [id number] Verified By: DARNELL PAK Trice: 10/22/08 10:14 [...] end of result us U Unknown IMG [facility] RAD HISTORICAL Final Result documented in this encounter Visit Diagnoses Not on filedocumented in this encounter
--- OUTSIDE RECORDS SUMMARY | 2024-03-15 10:03 | XMS_ITS | Encounter Summary ---
Author Organization [place] [address] Care Team Providers Care Director Of Curriculum Name Role Phone Unavailable Primary Care Provider Unavailabl e Encounter Details Date Type Department Care Team (Latest Contact Info) Description 05/07/2010 4:24 AM EST - 05/07/2010 11:59 PM EST Hospital Encounter EDG LAB ALEJANDRO PROCESSING [facility] [place] [address] Discharge Disposition: Home or Self [...] 04/24/2024 10:45 AM EST Clinical Support [facility] [address] [place] [address] documented as of this encounter Procedures Procedure Name Priority Date/Time Associated Diagnosis Comments HEMATOLOGIST ONCOLOGIST CYTOLOGY REPORT Routine 05/07/2010 4 :55 AM EST documented in this encounter Results * HEMATOLOGIST ONCOLOGIST CYTOLOGY REPORT (05/07/2010 4:55 AM EST) Police Patrol Lieutenant Cytology Report ? PATIENT NAME:ISHAN CHILDRESS ? Police Patrol Lieutenant Cytology Report ? Accession Number ?Collected Date/Time ? Received Date/Time ? [id number] ? 05/07/10 04:55 EST ?05/09/10 04:55 EST [...] before definitive therapy. ? Processed using the [employer] automated cytology screening device ? (Clue App). ? Grip Assembler: HK ?05/17/2010 ? Completed by: ??SHANNAN Muniz ?(Electronically signed by) ?05/17/2010 ?P Laboratory [facility] 05/07/2010 4:55 AM EST us Yuliet Norman MD PATHOLOGY ORDERABLES Final Resu lt [facility] [address] [place] [address] documented in this encounter Visit Diagnoses Not on filedocumented in this encounter
--- OUTSIDE RECORDS SUMMARY | 2024-03-15 10:03 | XMS_ITS | Encounter Summary ---
Author Organization [place] [address] Care Team Providers Care Fire Equipment Inspector Name Role Phone Unavailable Primary Care [...] Clinical Support [facility] [address] [facility] [place] [phone] documented as of this encounter Visit Diagnoses Not on filedocumented in this encounter
--- OUTSIDE RECORDS SUMMARY | 2024-03-15 10:03 | XMS_ITS | Encounter Summary ---
Author Organization [place] [address] Care Team Providers Care Breaker Off Name Role Phone Unavailable Primary Care Provider [...] 10:45 AM EST Clinical Support [facility] [address] [place] [address] documented as of this encounter Visit Diagnoses Not on filedocumented in this encounter
--- OUTSIDE RECORDS SUMMARY | 2024-03-15 10:03 | XMS_ITS | Encounter Summary ---
Author Organization [place] [address] Care Team Providers Care Bench Mover Name Role Phone Unavailable Primary Care Provider [...] 04/24/2024 10:45 AM EST Clinical Support [facility] [address] [place] [address] documented as of this encounter Visit Diagnoses Not on filedocumented in this encounter
--- OUTSIDE RECORDS SUMMARY | 2024-03-15 10:03 | XMS_ITS | Encounter Summary ---
Author Organization [place] [address] Care Team Providers Care Sawyer Cork Slabs Name Role Phone Unavailable Primary Care Provider Unavailabl e Encounter Details Date Type Department Care Team (Late st Contact Info) Description 02/06/2005 11:08 PM EDT - 02/07/2005 2:10 AM EDT Hospital Encounter HST E/D RED EDG Eric Tavares MD [address] [place] [address] [place] [address] Social History Tobacco Use Types [...] EST Clinical Support [facility] [address] [place] [address] Scheduled Orders Name Type Priority [...] Date Time- 02/07/051516 us Eric Tavares MD [facility] Final Result documented in this encounter Visit Diagnoses Not on filedocumented in this encounter
--- OUTSIDE RECORDS SUMMARY | 2024-03-15 10:03 | XMS_ITS | Encounter Summary ---
Author Organization [place] [address] Care Team Providers Care Power Saw Operator Name Role Phone Unavailable Primary Care Provider Unavailabl e Encounter Details Date Type Department Care Team (Late st Contact Info) Description 12/26/2005 12:01 AM EDT - 12/26/2005 11:59 PM EDT Hospital Encounter HST RADIOLOGY EDG [address] [address] Social History Tobacco Use Types [...] 04/24/2024 10:45 AM EST Clinical Support [facility] [address] [place] [address] Scheduled Orders Name Type Priority Associated Diagnoses Orde r Schedule US PELVIS/GATE WATCHMAN YARD PERSON Imaging Routine Once fo r 1 Occurrences starting 06/28/2009 until 06/28/2009, 1 completed documented as of this encounter Procedures Procedure Name Priority Date/Time Associated Diagnosis Comments US PELVIS/GATE WATCHMAN YARD PERSON Routine 12/26/2005 4:2 9 PM EDT documented in this encounter Results * US PELVIS/GATE WATCHMAN YARD PERSON (12/26/2005 4:29 PM EDT) Anatomical Region Laterality [...] hypoechoic area. Today's exam is normal. ? Shoe Planner- ASHLEE HATCH ? [place] Radiologist- SAQIB ANAND [...] cm hypoechoic area. Today's exam is normal. Shoe Planner- ASHLEE HATCH [place] Radiologist- SAQIB ANAND MD. Released Date Time- 12/27/05 0729 [facility] RAD HISTORICAL Final Result documented in this encounter Visit Diagnoses Not on filedocumented in this encounter
--- OUTSIDE RECORDS SUMMARY | 2024-03-15 10:03 | XMS_ITS | Encounter Summary ---
Author Organization [facility] [address] Care Team Providers Care Manhole Stripper Name Role Phone Unavailable Primary Care Provider Unavailabl e Encounter Details Date Type Department Care Team (Late st Contact Info) Description 03/25/2003 9:13 PM EST - 03/25/2003 9:53 PM EST Hospital Encounter HST EPIC CON UNK COV Annamarie Short MD [address] [place] [phone] Social History Tobacco Use Types Packs/Day [...] 10:45 AM EST Clinical Support [facility] [address] [place] [address] documented as of this encounter Visit Diagnoses Not on filedocumented in this encounter
--- OUTSIDE RECORDS SUMMARY | 2024-03-15 10:03 | XMS_ITS | Encounter Summary ---
Author Organization [facility] [address] Care Team Providers Care Claims Analyst Name Role Phone Unavailable Primary Care Provider Unavailabl e Encounter Details Date Type Department Care Team (Late st Contact Info) Description 06/04/2004 5:20 AM EST - 06/04/2004 11:59 PM EST Hospital Encounter HST LAB EDG Tcshelia, Thea Pimentel MD [address] [place] [address] Social History Tobacco Use Types Packs/Day Years [...] 04/24/2024 10:45 AM EST Clinical Support [facility] [address] [place] [address] documented as of this encounter Visit Diagnoses Not on filedocumented in this encounter
--- OUTSIDE RECORDS SUMMARY | 2024-03-15 10:03 | XMS_ITS | Encounter Summary ---
Author Organization [place] [address] Care Team Providers Care Urban Designer Name Role Phone Unavailable Primary Care Provider [...] [facility] [address] [place] [address] Scheduled Orders Name Type Priority Associated Diagnoses [...] 07/17/2004 Narrative 07/17/2004 12:00 AM EST VERIFIED [facility] Reason: ??RIGHT HAND INJURY Dict.Staff: GISELE KNOX Verified By: SUNNY MATOS ? Trice: 07/18/04 ?? 2:41 pm Exams: ??DIAG-HAND MIN 3-VIEWS RT 07-17-04 THREE-VIEW RIGHT HAND: Clinical indication for study: Right hand injury. IMPRESSION: No significant osseous, joint or soft tissue abnormality is seen. HURST:ps end of result Procedure Note Unknown, U - 08/03/2009 VERIFIED [facility] Reason: RIGHT HAND INJURY Dict.Staff: GISELE KNOX [...]
--- OUTSIDE RECORDS SUMMARY | 2024-03-15 10:03 | XMS_ITS | Encounter Summary ---
Author Organization [facility] [address] Care Team Providers Care Spray Stainer Name Role Phone Unavailable Primary Care Provider Unavailabl e Encounter Details Date Type Department Care Team (Late st Contact Info) Description 07/13/2007 11:15 AM EDT - 07/13/2007 5:20 PM EDT Hospital Encounter HST E/D BLUE EDG Shane Puckett MD [address] [place] [phone] Social History Tobacco Use Types Packs/Day [...] EST Clinical Support [facility] [address] [place] [address] Scheduled Orders Name Type Priority Associated Diagnoses Orde r Schedule PN US EXAM HYDROGEN PLANT OPERATIONS MANAGER Imaging Routine Once for 1 Occur rences starting 06/29/2009 until 06/29/2009, 1 completed documented as of this encounter Procedures Procedure Name Priority Date/Time Associated Diagnosis Comments PN US EXAM HYDROGEN PLANT OPERATIONS MANAGER Routine 07/13/2007 4:23 PM EDT documented in this encounter Results * PN US EXAM HYDROGEN PLANT OPERATIONS MANAGER (07/13/2007 4:23 PM EDT) Anatomical Region Laterality Modality Other 07/13/2007 4:23 PM EDT Narrative 07/14/2007 2:02 PM EDT ? [facility] ? ULTRASOUND EXAMINATION REPORT ISHAN CHILDRESS OB Exam, 07/13/2007 Exam Information Patient Name- ??ISHAN CHILDRESS - ??1980 Age- ??27 yrs Ref Phys- [facility] Exam Date- 07/13/2007 Procedure- TRANSVAGINAL ULTRASOUND Exam [facility] Plurality- 1 LMP- ??06/11/2007 OBHx- [G-(3)] [...] Signed and Authenticated By- Preston Hunt M.D. Entry Level Account Executive- ??Belia Garrido [facility] Thank You For This Referral ? Experimental Mechanic Electrical- ANGELA MORLEY ? [place] Radiologist- PRESTON HUNT ??Michelle ? Released Date Time- 07/14/07 1402 Procedure Note Preston Hunt - 06/29/2009 [facility] ULTRASOUND EXAMINATION REPORT ISHAN CHILDRESS OB Exam, 07/13/2007 Exam Information Patient Name- ISHAN CHILDRESS - 1980 Age- 27 yrs Ref Phys- [facility] Exam Date- 07/13/2007 Procedure- TRANSVAGINAL ULTRASOUND Exam Site- [facility] Plurality- 1 LMP- 06/11/2007 OBHx- [G-(3)] [...] Signed and Authenticated By- Preston Hunt M.D. Entry Level Account Executive- Belia Garrido RDMS Thank You For This Referral Experimental Mechanic Electrical- ANGELA Mendoza Radiologist- PRESTON HUNT M.D. Released Date Time- 07/14/07 1402 us Shane Puckett MD [facility] RAD HISTORICAL Final Result documented in this encounter Visit Diagnoses Not on filedocumented in this encounter
--- OUTSIDE RECORDS SUMMARY | 2024-03-15 10:03 | XMS_ITS | Encounter Summary ---
Author Organization [place] [address] Care Team Providers Care Attorney Lawyer Name Role Phone Unavailable Primary Care Provider Unavailabl e Encounter Details Date Type Department Care Team (Late st Contact Info) Description 05/24/2008 12:24 PM EST - 05/24/2008 11:59 PM EST Hospital Encounter HST LAB EDG Marge Calles MD [address] [place] [address] Social History Tobacco Use Types [...] 04/24/2024 10:45 AM EST Clinical Support [facility] [address] [place] [address] documented as of this encounter Visit Diagnoses Not on filedocumented in this encounter
--- OUTSIDE RECORDS SUMMARY | 2024-03-15 10:03 | XMS_ITS | Encounter Summary ---
Author Organization [place] [address] Care Team Providers Care Identifier Horse Name Role Phone Unavailable Primary Care Provider [...] [facility] [address] [place] [phone] documented as of this encounter Visit Diagnoses Not on filedocumented in this encounter
--- OUTSIDE RECORDS SUMMARY | 2024-03-15 10:03 | XMS_ITS | Encounter Summary ---
Author Organization [place] [address] Care Team Providers Care Dye Machine Operator Name Role Phone Unavailable Primary Care Provider Unavailabl e Encounter Details Date Type Department Care Team (Late st Contact Info) Description 12/23/2008 7:37 AM EDT - 12/23/2008 11:59 PM EDT Hospital Encounter HST EPIC CON UNK EDG Genaro Davis [address] [place] [address] [phone] (Fax) Social History Tobacco Use Types Packs/Day [...] 04/24/2024 10:45 AM EST Clinical Support [facility] [address] [place] [address] documented as of this encounter Visit Diagnoses Not on filedocumented in this encounter
--- OUTSIDE RECORDS SUMMARY | 2024-03-15 10:03 | XMS_ITS | Encounter Summary ---
Author Organization [place] [address] Care Team Providers Care Powder Loader Name Role Phone Yuliet Norman MD Primary Care Provider [phone] Encounter Details Date Type Department Care Team (Late st Contact Info) Description 11/22/2010 1:54 PM EDT - 11/22/2010 11:59 PM EDT Hospital Encounter ASAEL EKG [address] [place], [place] [id number] [facility] Emergency Care Physicians [facility] Discharge Disposition: Home or Self Care Social [...] 04/24/2024 10:45 AM EST Clinical Support [facility] [address] [place] [address] documented as of this encounter Procedures Procedure Name Priority Date/Time Associated Diagnosis Comments EK EKG 12 LEAD STAT 11/22/2010 10:58 AM EDT documented in this encounter Results * EK EKG 12 LEAD (11/22/2010 10:58 AM EDT) PYRAMIS LINK PYRAMIS Anatomical Region Laterality Modality Electrocardiogra phy 11/22/2010 10:5 8 AM EDT Emergency Care Physicians [facility] I MG ECG ORDERABLES Final Result documented in this encounter Visit Diagnoses Not on filedocumented in this encounter Care Teams Powder Loader Relationship Specialty Start Date End Date Yuliet Norman MD PCP - General 11/22/10 09/12/14 documented as of this encounter
--- OUTSIDE RECORDS SUMMARY | 2024-03-15 10:03 | XMS_ITS | Encounter Summary ---
Author Organization [place] [address] Care Team Providers Care Surveillance Agent Name Role Phone Unavailable Primary Care Provider [...] Clinical Support [facility] [address] [place] [address] Scheduled Orders Name Type Priority [...] 04/08/2007 Narrative 04/08/2007 12:00 AM EST VERIFIED [facility] Reason: ??ABD PAIN/CHECK FOR RESIDUAL CONTRAST Dict.Staff: DARNELL PAK [id number] Verified By: DARNELL PAK ?Trice: 04/09/07 ??11:34 am Exams: ??[id number], 04-09-07: HISTORY: Abdominal pain. DISCUSSION: [...] Procedure Note Unknown, U - 08/04/2009 VERIFIED [facility] Reason: ABD PAIN/CHECK FOR RESIDUAL CONTRAST Dict.Staff: DARNELL PAK [id number] Verified By: DARNELL PAK Trice: 04/09/07 11:34 am Exams: [id number] VIEW [facility], 04-09-07: HISTORY: Abdominal pain. DISCUSSION: Two supine [...] 04/08/2007 Narrative 04/08/2007 12:00 AM EST VERIFIED [facility] Reason: ??BILIARY ATRESIA /ABD PAIN Dict.Staff: JOHN KOEHLER [id number] Verified By: JESÚS BUCK ? Trice: 04/08/07 ?? 3:59 pm Exams: ??[id number] VIEW ABDOMEN HISTORY: ??BILIARY ATRESIA, ABDOMINAL PAIN [...] Procedure Note Unknown, U - 08/04/2009 VERIFIED [facility] Reason: BILIARY ATRESIA /ABD PAIN Dict.Staff: JOHN KOEHLER [id number] Verified By: JESÚS BUCK Trice: 04/08/07 3:59 pm Exams: [id number] VIEW ABDOMEN HISTORY: BILIARY ATRESIA, ABDOMINAL PAIN [...] HOURS end of result us U [facility] Final Result * CT PELVIS W CONTRAST (04/07/2007 12:00 AM EST) Anatomical Region Laterality Modality Other 04/07/2007 04/07/2007 Narrative 04/07/2007 12:00 AM EST VERIFIED [facility] Reason: ??ABD PAIN Dict.Staff: ELAINE MCKAY [id number] Verified By: ELAINE MCKAY ?Trice: 04/07/07 ?? [...] Procedure Note Unknown, U - 08/04/2009 VERIFIED [facility] Reason: ABD PAIN Dict.Staff: ELAINE MCKAY [id number] Verified By: ELAINE MCKAY Trice: 04/07/07 4:54 [...] end of result us U Unknown [facility] Final Result * CT ABDOMEN W CONTRAST (04/06/2007 12:00 AM EST) Anatomical Region Laterality Modality Other 04/06/2007 04/06/2007 Narrative 04/06/2007 12:00 AM EST VERIFIED [facility] Reason: ??ABD PAIN Dict.Staff: ELAINE MCKAY [id number] Verified By: ELAINE MCKAY ?Trice: 04/07/07 ?? [...] Procedure Note Unknown, U - 08/04/2009 VERIFIED [facility] Reason: ABD PAIN Dict.Staff: ELAINE MCKAY [id number] Verified By: ELAINE MCKAY Trice: 04/07/07 4:54 [...] end of result us U Unknown IM [facility] Final Result * CT PELVIS W CONTRAST (04/04/2007 12:00 AM EST) Anatomical Region Laterality Modality Other 04/04/2007 04/04/2007 Narrative 04/04/2007 12:00 AM EST VERIFIED [facility] Reason: ??llq pain h/o of kasai procedure in ac3 Dict.Staff: MONTSERRAT TERRY [id number] Verified By: HARPER DSOUZA ? Trice: 04/05/07 [...] Note Cruz Rain S - 08/04/2009 VERIFIED [facility] Reason: llq pain h/o of kasai procedure in ac3 Dict.Staff: MONTSERRAT TERRY [id number] Verified By: HARPER DSOUZA Trice: 04/05/07 11:13 [...] 04/04/2007 Narrative 04/04/2007 12:00 AM EST VERIFIED [facility] Reason: ??llq pain h/o of kasai procedure in ac3 Dict.Staff: MONTSERRAT TERRY [id number] Verified By: HARPER DSOUZA ? Trice: 04/05/07 [...] Note Rain Cruz S - 08/04/2009 VERIFIED [facility] Reason: llq pain h/o of kasai procedure in ac3 Dict.Staff: MONTSERRAT TERRY [id number] Verified By: HARPRE DSOUZA Trice: 04/05/07 11:13 am Exams: CT-ABDOMEN [...]
--- OUTSIDE RECORDS SUMMARY | 2024-03-15 10:03 | XMS_ITS | Encounter Summary ---
Author Organization [facility] [address] Care Team Providers Care Adult Basic Education Manager Name Role Phone Unavailable Primary Care Provider Unavailabl e Encounter Details Date Type Department Care Team (Late st Contact Info) Description 03/12/2007 10:17 AM EST - 03/12/2007 11:53 AM EST Hospital Encounter HST EPIC CON UNK COV Shane Puckett MD [address] [place] [phone] Social History Tobacco Use Types Packs/Day [...] AM EST Clinical Support [facility] [address] [place] [address] Scheduled Orders Name Type Priority [...] abnormality generalized new from previous Abnormal ECG Field Account Directorjerson BRYANT MD [place] RadiologistMarilynn BRYANT MD Released Date Time- 03/13/07 1308 Shane Puckett MD [facility] HISTORICAL Final Result documented in this encounter Visit Diagnoses Not on filedocumented in this encounter
--- OUTSIDE RECORDS SUMMARY | 2024-03-15 10:03 | XMS_ITS | Encounter Summary ---
Author Organization [place] [address] Care Team Providers Care Physical Therapy Resident Name Role Phone Unavailable Primary Care Provider [...] Clinical Support [facility] [address] [place] [address] documented as of this encounter Visit Diagnoses Not on filedocumented in this encounter
--- OUTSIDE RECORDS SUMMARY | 2024-03-15 10:03 | XMS_ITS | Encounter Summary ---
Author Organization [place] [address] Care Team Providers Care Oil Changer Name Role Phone Unavailable Primary Care Provider [...] Clinical Support [facility] [address] [place] [address] documented as of this encounter Visit Diagnoses Not on filedocumented in this encounter
--- OUTSIDE RECORDS SUMMARY | 2024-03-15 10:03 | XMS_ITS | Encounter Summary ---
Author Organization [place] [address] Care Team Providers Care Stock Clerk Name Role Phone Unavailable Primary Care Provider Unavailabl e Encounter Details Date Type Department Care Team (Late st Contact Info) Description 12/03/2006 9:55 AM EDT Hospital Encounter HST E/D RED EDG Kris Campbell MD [address] [place] [address] [place] [address] Social History Tobacco Use Types [...] 10:45 AM EST Clinical Support [facility] [address] [place] [address] Scheduled Orders Name Type Priority Associated Diagnoses Orde r Schedule CT ABD/PELVIS NICK SETTER Imaging Routine Once fo r 1 Occurrences starting 06/28/2009 until 06/28/2009, 1 completed documented as of this encounter Procedures Procedure Name Priority Date/Time Associated Diagnosis Comments CT ABD/PELVIS NICK SETTER Routine 12/03/2006 8:5 1 AM EDT documented in this encounter Results * CT ABD/PELVIS NICK SETTER (12/03/2006 8:51 AM EDT) Anatomical Region Laterality [...] suspected recently collapsed left adnexal cyst. ? Asparagus Cutter- JANE ESPARZA ? [place] Radiologist- SAQIB ANAND [...] cm suspected recently collapsed left adnexal cyst. Asparagus Cutter- JANE ESPARZA [place] Radiologist- SAQIB ANAND MD. Released Date Time- 12/03/06 1246 us Lex Salas MD [facility] HISTORICAL Final Result documented in this encounter Visit Diagnoses Not on filedocumented in this encounter
--- OUTSIDE RECORDS SUMMARY | 2024-03-15 10:03 | XMS_ITS | Encounter Summary ---
Author Organization [place] [address] Care Team Providers Care Fuel Cell Engineer Name Role Phone Unavailable Primary Care [...] 04/24/2024 10:45 AM EST Clinical Support [facility] [address] [place] [address] documented as of this encounter Visit Diagnoses Not on filedocumented in this encounter
--- OUTSIDE RECORDS SUMMARY | 2024-03-15 10:03 | XMS_ITS | Encounter Summary ---
Author Organization [place] [address] Care Team Providers Care Water Plant Pump Operator Name Role Phone Unavailable Primary Care Provider Unavailabl e Encounter Details Date Type Department Care Team (Late st Contact Info) Description 02/28/2009 12:01 AM EST - 02/28/2009 11:59 PM EST Hospital Encounter HST EPIC CON UNK EDG Camila Jasso MD [address] [place] [address] Social History Tobacco Use Types Packs/Day [...] Clinical Support [facility] [address] [place] [address] Scheduled Orders Name Type Priority [...] within normal limits. Impression- ??Normal chest. ? Gumming Machine OperatorMarilynn QUARLES ? Reading Ronak REED ? Released Date Time- 02/28/091939 Procedure Note Lyndsay Reed - 06/30/2009 PA and lateral chest, 02/28/2009. History- Chest pain. The heart and lungs are within normal limits. Impression- Normal chest. Gumming Machine OperatorMarilynn Mendoza PhysicianMarilynn REED MD Released Date Time- 02/28/091939 Camila Jasso MD [facility] HISTORICAL Final Result * ST STRESS TEST [...] NONE. CONCLUSION- ? NORMAL ECG RESPONSE. ? Gumming Machine Operator- CLARENCE GOLDBERG ? Reading Physician- JACQUELIN BRADY [...] ARRYTHMIAS - NONE. CONCLUSION- NORMAL ECG RESPONSE. Gumming Machine Operator- CLARENCE Mendoza Physician- JACQUELIN BRADY M.D. Released Date Time- 02/28/09 1450 Camila Jasso MD [facility] HISTORICAL Final Result documented in this encounter Visit Diagnoses Not on filedocumented in this encounter
--- OUTSIDE RECORDS SUMMARY | 2024-03-15 10:03 | XMS_ITS | Encounter Summary ---
Author Organization [place] [address] Care Team Providers Care Managed Care Manager Name Role Phone Unavailable Primary Care [...] 04/24/2024 10:45 AM EST Clinical Support [facility] [address] [place] [address] documented as of this encounter Visit Diagnoses Not on filedocumented in this encounter
--- OUTSIDE RECORDS SUMMARY | 2024-03-15 10:03 | XMS_ITS | Encounter Summary ---
Author Organization [place] [address] Care Team Providers Care Spanish Medical Interpreter Name Role Phone Unavailable Primary Care Provider Unavailabl e Encounter Details Date Type Department Care Team (Late st Contact Info) Description 02/07/1999 7:10 PM EDT - 02/07/1999 9:00 PM EDT Hospital Encounter HST MAJOR ER EDG Edmund Small [address] [place] [address] [facility] [place] [address] Fred Judd MD Social History Tobacco Use [...] 10:45 AM EST Clinical Support [facility] [address] [place] [phone] documented as of this encounter Visit Diagnoses Not on filedocumented in this encounter
--- OUTSIDE RECORDS SUMMARY | 2024-03-15 10:03 | XMS_ITS | Encounter Summary ---
Author Organization [place] [address] Care Team Providers Care Assembly Line Leader Name Role Phone Unavailable Primary Care Provider Unavailabl e Encounter Details Date Type Department Care Team (Late st Contact Info) Description 06/21/2000 11:58 PM EST - 06/22/2000 12:40 AM EST Hospital Encounter HST MAJOR ER EDG Hannah Cedeno MD [address] [place] [address] Dionisio Mckenzie DO [address] [place] [address] Social History Tobacco Use Types [...] 04/24/2024 10:45 AM EST Clinical Support [facility] [address] [place] [address] documented as of this encounter Visit Diagnoses Not on filedocumented in this encounter
--- OUTSIDE RECORDS SUMMARY | 2024-03-15 10:03 | XMS_ITS | Encounter Summary ---
Author Organization [place] [address] Care Team Providers Care Material Attendant Name Role Phone Unavailable Primary Care Provider [...] EST Clinical Support [facility] [address] [place] [address] documented as of this encounter Visit Diagnoses Not on filedocumented in this encounter
--- OUTSIDE RECORDS SUMMARY | 2024-03-15 10:04 | XMS_ITS | Encounter Summary ---
Author Organization [facility] [place] [address] Care Team Providers Care Plaster Molder Name Role Phone Unavailable Primary Care Provider Unavailabl e Encounter Details Date Type Department Care Team (Late st Contact Info) Description 11/01/1994 7:32 PM EDT - 11/01/1994 11:59 PM EDT Hospital Encounter HST EPIC CON UNK EDG Eros Gunter MD [address] [place] [address] Social History Tobacco Use Types Packs/Day [...] 04/24/2024 10:45 AM EST Clinical Support [facility] [address] [place] [address] documented as of this encounter Visit Diagnoses Not on filedocumented in this encounter
--- OUTSIDE RECORDS SUMMARY | 2024-03-15 10:04 | XMS_ITS | Encounter Summary ---
Author Organization [facility] Address [facility] [place] [address] Care Team Providers Care Construction Administrator Name Role Phone Marlo Rubio MD Primary [...] release of HIV test results or diagnoses. [id number] Reason for Referral * Surgical (Routine) - Closed Specialty Diagnoses / Procedures Referred By Contact Referred To Contact Gastroenterology Diagnoses Anemia, unspecified type Procedures Case request GI: EGD VA ESOPHAGOGASTRODUODENOSCOPY TRANSORAL DIAGNOSTIC VA EGD TRANSORAL BIOPSY SINGLE/MULTIPLE Aaron Rocha MD [address] [place] [address] Phone: tel:[phone] fax:[phone] Referral ID Status Reason Start Date Expiration Date Visits Re quested Visits Authorized [id number] Closed 11/24/2017 05/23/2018 1 1 Encounter Details Date Type Department Care Team (Late st Contact Info) Description 11/24/2017 Orders Only [facility] Gastroenterology at [facility] Office [address] [place] [address] [address] [place] [address] Aaron Rocha MD [address] [place] [phone] Anemia, unspecified type (Primary Dx) Social History [...] documented as of this encounter Care Teams Construction Administrator Relationship Specialty Start Date End Date Marlo Rubio MD PCP - General Family Medicine 10/09/16 documented as of this encounter
--- OUTSIDE RECORDS SUMMARY | 2024-03-15 10:04 | XMS_ITS | Encounter Summary ---
Author Organization [facility] Address [address] [place] [address] Care Team Providers Care Fish Hatchery Inspector Name Role Phone Marlo Rubio MD Primary [...] release of HIV test results or diagnoses. [id number] Health Reason for Visit * Auth/Cert Specialty Diagnoses / Procedures Referred By Amalia t Referred To Contact Gastroenterology Diagnoses Anemia, diarrhea Procedures COLONOSCOPY W/ OR W/O BIOPSY 83087 (CPT??) - NM COLONOSCOPY FLX DX W/COLLJ SPEC WHEN PFRMD 32576 (CPT??) - NM COLONOSCOPY W/BIOPSY SINGLE/MULTIPLE 31547 (CPT??) - NM COLSC FLX W/RMVL OF TUMOR POLYP LESION SNARE TQ [facility] ENDOSCOPY [address] [place] [address] Phone: tel: Referral ID Status Reason Start Date Expiration Date Visits Re quested Visits Authorized [id number] 1 1 Encounter Details Date Type Department Care Team (Late st Contact Info) Description 01/12/2018 11:00 AM EDT - 01/12/2018 12:00 PM EDT Surgery [facility] ENDOSCOPY [address] [place] [address] Aaron Rocha MD [address] [place] [address] COLONOSCOPY W/ OR W/O BIOPSY Surgery [...] Tolliver RN - 01/12/2018 1:36 PM EDT [facility] ENDOSCOPY INSTRUCTION/RELEASE FORMS Date: 01/12/2018 Procedure: Procedure(s): COLONOSCOPY With BIOPSY IF YOU DEVELOP EXCESSIVE BLEEDING, UNCONTROLLED PAIN OR SHORTNESS OF BREATH, GO TO THE EMERGENCY DEPARTMENT FOR AN EXAMINATION. IF YOU DEVELOP CHILLS, FEVER (greater than 100.5) OR HAVE CONCERNS ABOUT YOUR RECOVERY, CALL Dr Rocha AT [phone]. 1. You may experience lightheadedness and nausea. [...] ?? Follow up with Dr Rocha at [phone] for biopsy results and for routine appointment/further [...] Rocha MD - 01/12/2018 12:15 PM EDT [id number] Procedure Date: 01/12/2018 12:15 PM Patient Name: [...] previously scheduled. Procedure Code(s): --- Professional --- 18804, GC, Colonoscopy, flexible; with biopsy, single or multiple Diagnosis Code(s): --- Professional --- R19.7, Diarrhea, unspecified D50.9, Iron deficiency anemia, unspecified CPT copyright 2016 [employer]. All rights reserved. The codes documented in this report are preliminary and upon internetworking technician review may be revised to meet current compliance requirements. Attending Participation: I personally performed the entire procedure. Aaron Rocha MD 01/12/2018 1:11:21 PM This report has been signed electronically.Aaron Rocha MD Wenceslao Quezada MD Scope Withdrawal Time 0 hours 19 minutes 54 seconds Total Procedure Duration Time 0 hours 31 minutes 17 seconds Scope In: 12:29:53 PM Scope Out: 1:01:[address] [place] [address] documented in this encounter Plan of Treatment [...] EDT) 01/12/2018 12:1 5 PM EDT Narrative [facility] - 01/12/2018 1:11 PM EDT [id number] Procedure Date: 01/12/2018 12:15 PM ?Patient Name: [...] Procedure Code(s): ?? --- Professional --- ? 52417, GC, Colonoscopy, flexible; with biopsy, single or ? multiple Diagnosis Code(s): ?? --- Professional --- ? R19.7, Diarrhea, unspecified ? D50.9, Iron deficiency anemia, unspecified CPT copyright 2016 [employer]. All rights reserved. The codes documented in this report are preliminary and upon internetworking technician review may be revised to meet current [...] 12:29:53 PM Scope Out: 1:01:10 PM ? [address] [place], [place] [id number] Aaron Rocha MD GI PROCEDURE ORDERABLES Final Re sult [facility] [address] [facility] [place] [address] * Surgical Pathology Exam (01/12/2018 12:00 AM EDT) 01/12/2018 01/12/2018 Narrative [facility] - 01/12/2018 12:00 AM EDT CASE: [id number] PATIENT: GARDENIA CHILDRESS Clinical History: ?? Colonoscopy with or without biopsy Pre-Operative Diagnosis: Anemia, diarrhea Post-Operative Diagnosis: ? normal Specimen(s) Submitted: ?? A. Random colon biopsies CPT Code(s): ?? 06889 X 1 Additional Information: FINAL DIAGNOSIS: Colon, [...] Pathologist signing this report is located at [facility], [address] [place] [address], [place], [address], , CLIA ID: [id number] us Aaron Rocha MD PATHOLOGY/CYTOLOGY ORDERABLES Fi [...] as of this encounter Care Teams Fish Hatchery Inspector Relationship Specialty Start Date End Date Marlo Rubio MD PCP - General Family Medicine 10/09/16 documented as of this encounter
--- OUTSIDE RECORDS SUMMARY | 2024-03-15 10:04 | XMS_ITS | Encounter Summary ---
Author Organization [place] [address] Care Team Providers Care Community Service Officer Name Role Phone Unavailable Primary Care [...] Clinical Support [facility] [address] [place] [phone] documented as of this encounter Visit Diagnoses Not on filedocumented in this encounter
--- OUTSIDE RECORDS SUMMARY | 2024-03-15 10:04 | XMS_ITS | Encounter Summary ---
Author Organization [place] [address] Care Team Providers Care Computing Machine Operator Name Role Phone Unavailable Primary [...] Clinical Support [facility] [address] [facility] [place] [phone] documented as of this encounter Visit Diagnoses Not on filedocumented in this encounter
--- OUTSIDE RECORDS SUMMARY | 2024-03-15 10:04 | XMS_ITS | Encounter Summary ---
Author Organization [place] [address] Care Team Providers Care Supply Chain Intern Name Role Phone Unavailable Primary Care Provider [...] Clinical Support [facility] [address] [place] [address] documented as of this encounter Visit Diagnoses Not on filedocumented in this encounter
--- OUTSIDE RECORDS SUMMARY | 2024-03-15 10:04 | XMS_ITS | Encounter Summary ---
Author Organization [facility] Address [address] [place] [address] Care Team Providers Care Geophysical Manager Name Role Phone Marlo Rubio MD [...] release of HIV test results or diagnoses. [id number] Health Reason for Visit * Reason Comments Follow-up Encounter Details Date Type Department Care Team (Late st Contact Info) Description 03/19/2017 9:00 AM EST Office Visit [facility] Hepatobiliary at [address] [phone] Aaron Rocha MD [address] [place] [phone] Diarrhea, unspecified type (Primary Dx) Social [...] prescribed to you and sent to your [facility] pharmacy. Please do not consume alcohol while [...] prescribed to you and sent to your [facility] pharmacy. Please do not consume alcohol while [...] documented as of this encounter Care Teams Geophysical Manager Relationship Specialty Start Date End Date Marlo Rubio MD PCP - General Family Medicine 10/09/16 documented as of this encounter
--- OUTSIDE RECORDS SUMMARY | 2024-03-15 10:04 | XMS_ITS | Clinical Summary ---
Author Organization [facility] Address [address] [place] [address] Care Team Providers Care Patient Account Representative Name Role Phone Josafat Rubio MD Primary [...] therelease of HIV test results or diagnoses. 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
--- OUTSIDE RECORDS SUMMARY | 2024-03-15 10:04 | XMS_ITS | Encounter Summary ---
Author Organization [place] [address] Care Team Providers Care Clinical Dietician Name Role Phone Unavailable Primary Care Provider [...] 04/24/2024 10:45 AM EST Clinical Support [facility] [address] [place] [address] documented as of this encounter Visit Diagnoses Not on filedocumented in this encounter
--- OUTSIDE RECORDS SUMMARY | 2024-03-15 10:04 | XMS_ITS | Encounter Summary ---
Author Organization [facility] Address [address] [place] [address] Care Team Providers Care Kiln Puller Name Role Phone Marlo Rubio MD Primary [...] release of HIV test results or diagnoses. [id number] Reason for Visit * Reason Comments Follow-up Encounter Details Date Type Department Care Team (Late st Contact Info) Description 09/16/2018 10:30 AM EDT Office Visit [facility] Hepatobiliary at [address] [phone] Aaron Rocha MD [address] [place] [phone] Abdominal pain, unspecified abdominal location (Primary [...] she was seen in the ED at [facility]. Evaluation was unremarkable including CBD, liver tests. [...] She was seen in the ER at [facility] for MASON pain. Work-up of this was [...] documented as of this encounter Care Teams Kiln Puller Relationship Specialty Start Date End Date Marlo Rubio MD PCP - General Family Medicine 10/09/16 documented as of this encounter
--- OUTSIDE RECORDS SUMMARY | 2024-03-15 10:04 | XMS_ITS | Encounter Summary ---
Author Organization [facility] Address [address] [place] [address] Care Team Providers Care Marine Oiler Name Role Phone Marlo Rubio MD Primary [...] release of HIV test results or diagnoses. [id number] Health Reason for Visit * Auth/Cert Specialty Diagnoses / Procedures Referred By Amalia t Referred To Contact Gastroenterology Diagnoses Anemia, diarrhea Procedures COLONOSCOPY W/ OR W/O BIOPSY 22064 (CPT??) - TN COLONOSCOPY FLX DX W/COLLJ SPEC WHEN PFRMD 87735 (CPT??) - [place] COLONOSCOPY W/BIOPSY SINGLE/MULTIPLE 99163 (CPT??) - [place] COLSC FLX W/RMVL OF TUMOR POLYP LESION SNARE TQ [facility] ENDOSCOPY [address] [place] [address] Phone: tel: Referral ID Status Reason Start Date Expiration Date Visits Re quested Visits Authorized [id number] 1 1 Encounter Details Date Type Department Care Team (Latest Contact Info) Description 01/12/2018 9:13 AM EDT - 01/12/2018 2:05 PM EDT Hospital Encounter [facility] ENDOSCOPY [address] [place] [phone] Aaron Rocha MD [address] [place] [phone] Diarrhea; Anemia, unspecified type; Diarrhea, unspecified [...] Tolliver RN - 01/12/2018 1:36 PM EDT [facility] ENDOSCOPY INSTRUCTION/RELEASE FORMS Date: 01/12/2018 Procedure: Procedure(s): COLONOSCOPY With BIOPSY IF YOU DEVELOP EXCESSIVE BLEEDING, UNCONTROLLED PAIN OR SHORTNESS OF BREATH, GO TO THE EMERGENCY DEPARTMENT FOR AN EXAMINATION. IF YOU DEVELOP CHILLS, FEVER (greater than 100.5) OR HAVE CONCERNS ABOUT YOUR RECOVERY, CALL Dr Rocha AT [phone]. 1. You may experience lightheadedness and nausea. [...] ?? Follow up with Dr Rocha at [phone] for biopsy results and for routine appointment/further [...] Rocha MD - 01/12/2018 12:15 PM EDT [id number] Procedure Date: 01/12/2018 12:15 PM Patient Name: [...] previously scheduled. Procedure Code(s): --- Professional --- 78995, GC, Colonoscopy, flexible; with biopsy, single or multiple Diagnosis Code(s): --- Professional --- R19.7, Diarrhea, unspecified D50.9, Iron deficiency anemia, unspecified CPT copyright 2016 [employer]. All rights reserved. The codes documented in this report are preliminary and upon template fitter review may be revised to meet current compliance requirements. Attending Participation: I personally performed the entire procedure. Aaron Rocha MD 01/12/2018 1:11:21 PM This report has been signed electronically.Aaron Rocha MD Wenceslao Quezada MD Scope Withdrawal Time 0 hours 19 minutes 54 seconds Total Procedure Duration Time 0 hours 31 minutes 17 seconds Scope In: 12:29:53 PM Scope Out: 1:01:[address] [place] [address] documented in this encounter Plan of Treatment [...] EDT) 01/12/2018 12:1 5 PM EDT Narrative [facility] - 01/12/2018 1:11 PM EDT [id number] Procedure Date: 01/12/2018 12:15 PM ?Patient Name: Gardenia Childerss ? Date of : 1980 ?Admit Type: [...] Procedure Code(s): ?? --- Professional --- ? 38985, GC, Colonoscopy, flexible; with biopsy, single or ? multiple Diagnosis Code(s): ?? --- Professional --- ? R19.7, Diarrhea, unspecified ? D50.9, Iron deficiency anemia, unspecified CPT copyright 2016 [employer]. All rights reserved. The codes documented in this report are preliminary and upon template fitter review may be revised to meet current [...] PM Scope Out: 1:01:10 PM ? [address] [place], [place] [phone] us Aaron Rocha MD GI PROCEDURE ORDERABLES Final Re sult [facility] [address] [place] [address] * Surgical Pathology Exam (01/12/2018 12:00 AM EDT) 01/12/2018 01/12/2018 [facility] - 01/12/2018 12:00 AM EDT CASE: [id number] PATIENT: GARDENIA CHILDRESS Clinical History: ?? Colonoscopy with or without biopsy Pre-Operative Diagnosis: Anemia, diarrhea Post-Operative Diagnosis: ? normal Specimen(s) Submitted: ?? A. Random colon biopsies CPT Code(s): ?? 42577 X 1 Additional Information: FINAL DIAGNOSIS: Colon, [...] Pathologist signing this report is located at [facility], [address] [place] [address], [place], [place], Pending sale to [facility] [phone], CLIA ID: [id number] Aaron Rocha MD PATHOLOGY/CYTOLOGY ORDERABLES Fi nal [...] documented as of this encounter Care Teams Marine Oiler Relationship Specialty Start Date End Date Marlo Rubio MD PCP - General Family Medicine 10/09/16 documented as of this encounter
--- OUTSIDE RECORDS SUMMARY | 2024-03-15 10:04 | XMS_ITS | Encounter Summary ---
Author Organization [facility] Address [address] [place] [address] Care Team Providers Care Revenue Integrity Analyst Name Role Phone Marlo Rubio MD [...] release of HIV test results or diagnoses. [id number] Health Reason for Visit * Auth/Cert Specialty Diagnoses / Procedures Referred By Amalia t Referred To Contact Gastroenterology Diagnoses Anemia, diarrhea Procedures COLONOSCOPY W/ OR W/O BIOPSY 46050 (CPT??) - [place] COLONOSCOPY FLX DX W/COLLJ SPEC WHEN PFRMD 07776 (CPT??) - [place] COLONOSCOPY W/BIOPSY SINGLE/MULTIPLE 71537 (CPT??) - [place] COLSC FLX W/RMVL OF TUMOR POLYP LESION SNARE TQ [facility] ENDOSCOPY [address] [place] [address] Phone: tel: Referral ID Status Reason Start Date Expiration Date Visits Re quested Visits Authorized [id number] 1 1 Encounter Details Date Type Department Care Team (Late st Contact Info) Description 01/12/2018 12:14 PM EDT Anesthesia Event [facility] ENDOSCOPY [address] [place] [address] Jesus Honeycutt MD [address] [place] [address] Anesthesia Record Procedure Summary Procedure [...] from the original note were not included. [facility] DEPARTMENT OF ANESTHESIOLOGY PRE-PROCEDURAL EVALUATION Gardenia Childress is a 37 y.o. year old female presenting for: Procedure(s): COLONOSCOPY W/ OR W/O BIOPSY Surgeon: Aaron Rocha MD Chief Complaint Review of Systems Anesthesia Evaluation Patient summary reviewed, nursing notes reviewed, DIRECTOR STRATEGIC ACCOUNT MANAGEMENT/PAT note reviewed and Previous anesthesia note reviewed. No history of anesthetic complications I have reviewed the History and Physical Exam, any relevant changes are noted in the anesthesia pre-operative evaluation. Cardiovascular: Exercise tolerance: good Cummings Met score: 8 - Moving heavy furniture. Rapidly climbing stairs. Carrying 20 pounds up stairs.Valvular problems/murmurs (ASD closure 07/06/2017) related to. (-) hypertension, past NE, cardiomyopathy, CABG/stent, dysrhythmias (pvc's), angina, CHF. Neuro/Muscoloskeletal/Psych: [...] Blood products not discussed. Plan discussed with BARREL TURNER and attending. documented in this encounter Plan [...] 0659(Not Admitted) 01/12/18699 - 01/13/18 0659 Shift [id number] [phone] 0398-1517 24 Hour Total 2531-4106 [phone] 24 Hour Total I N T A [...] documented as of this encounter Care Teams Revenue Integrity Analyst Relationship Specialty Start Date End Date Marlo Rubio MD PCP - General Family Medicine 10/09/16 documented as of this encounter
--- OUTSIDE RECORDS SUMMARY | 2024-03-15 10:04 | XMS_ITS | Encounter Summary ---
Author Organization [facility] Address [address] [place] [address] Care Team Providers Care Hammer Smith Name Role Phone Marlo Rubio MD Primary [...] release of HIV test results or diagnoses. [id number] Encounter Details Date Type Department Care Team (Late st Contact Info) Description 12/23/2017 Telephone [facility] G[facility]ology at [facility] [address] [place] [phone] Myrtle [place] RN Social History Tobacco Use [...] documented as of this encounter Care Teams Hammer Smith Relationship Specialty Start Date End Date Marlo Rubio MD PCP - General Family Medicine 10/09/16 documented as of this encounter
--- OUTSIDE RECORDS SUMMARY | 2024-03-15 10:04 | XMS_ITS | Encounter Summary ---
Author Organization [facility] Address [address] [place] [address] Care Team Providers Care Marketing Production Specialist Name Role Phone Marlo Rubio MD [...] release of HIV test results or diagnoses. [id number] Encounter Details Date Type Department Care Team (Late st Contact Info) Description 12/18/2017 Telephone [facility]ology at [place] [facility] [address] [place] [phone] Myrtle Washington RN Social History Tobacco Use [...] as of this encounter Care Teams Marketing Production Specialist Relationship Specialty Start Date End Date Marlo Rubio MD PCP - General Family Medicine 10/09/16 documented as of this encounter
--- OUTSIDE RECORDS SUMMARY | 2024-03-15 10:04 | XMS_ITS | Encounter Summary ---
Author Organization [facility] Address [address] [place] [address] Care Team Providers Care Critical Care Technician Name Role Phone Marlo Rubio MD [...] release of HIV test results or diagnoses. [id number] Health Reason for Visit * Reason Comments Follow-up Encounter Details Date Type Department Care Team (Late st Contact Info) Description 02/19/2017 10:30 AM EDT Office Visit [facility] Hepatobiliary at [address] [phone] Aaron Rocha MD [address] [place] [phone] Diarrhea, unspecified type (Primary Dx) Social [...] w/ Giardia/Crypto (02/21/2017 9:55 AM EDT) Pathologist [facility] O & P Method: Concentration and Trichrome Stain HEALTH LAB Results No Amoeba, Ova, Or Parasites Seen. -- O and P examination of additional specimens is recommended only for symptomatic patients, immunosuppressed patients or those with an appropriate travel history. LAB Stool specimen (specimen) FECES / Unknown 02/21/2017 9:55 AM EDT 02/21/2017 3:08 PM EDT Comment:F us Aaron Rocha MD MICROBIOLOGY - GENERAL ORDERABLE S Final Result Performing Organization Address [facility] Co de Phone Number LAB [address] * Clost difficile DNA Amplification (02/21/2017 9:55 AM EDT) [facility] Clost. Diff DNA Amp. Negative Negative 02/21/2017 10:58 PM EDT LAB Comment:Positive indicates t oxigenic C. difficile [...] S Final Result Performing Organization Address [facility] de Phone Number LAB [address] * Differential (02/19/2017 11:43 AM EDT) [facility] Neutrophils Relative 60.6 40.0 - 80.0 % 02/19/2017 11:53 AM EDT LAB Lymphocytes Relative 25.6 15.0 - 45.0 % 02/19/2017 11:53 AM EDT [facility] Monocytes Relative 8.0 0.0 - 12.0 % 02/19/2017 11:53 AM EDT HEALTH LAB Eosinophils Relative 5.3 0.0 - 8.0 % 02/19/2017 11:53 AM EDT LAB Basophils Relative 0.5 0.0 - 1.0 % 02/19/2017 11:53 AM EDT LAB nRBC 0 0 - 0 /100 WBC 02/19/2017 11:53 AM EDT LAB Neutrophils Absolute 4,484 1,500 - 7,800 /uL 02/19/2017 11:53 AM EDT LAB Lymphocytes Absolute 1,894 850 - 3,900 /uL 02/19/2017 11:53 AM EDT LAB Monocytes Absolute 592 200 - 950 /uL 02/19/2017 11:53 AM EDT LAB Eosinophils Absolute 392 15 - 500 /uL 02/19/2017 11:53 AM EDT LAB Basophils Absolute 37 0 - 200 /uL 02/19/2017 11:53 AM EDT LAB Whole blood specimen (specimen) 02/19/2017 11:43 AM EDT 02/19/2017 11:50 AM EDT us Aaron Rocha MD LAB BLOOD ORDERABLES Final Resul t LAB [address] [place] [address], [facility] * (ABNORMAL) CBC (02/19/2017 11:43 AM EDT) WBC 7.4 3.8 - 10.8 10E3/uL 02/19/2017 11:53 AM EDT LAB RBC 5.04 3.80 - 5.10 10E6/uL 02/19/2017 11:53 AM EDT LAB Hemoglobin 14.0 11.7 - 15.5 g/dL 02/19/2017 11:53 AM EDT LAB Hematocrit 43.3 35.0 - 45.0 % 02/19/2017 11:53 AM EDT LAB MCV 85.9 80.0 - 100.0 fL 02/19/2017 11:53 AM EDT LAB MCH 27.8 27.0 - 33.0 pg 02/19/2017 11:53 AM EDT LAB MCHC 32.3 32.0 - 36.0 g/dL 02/19/2017 11:53 AM EDT LAB RDW 15.1(H) 11.0 - 15.0 % 02/19/2017 11:53 AM EDT LAB Platelets 268 140 - 400 10E3/uL 02/19/2017 11:53 AM EDT LAB MPV 7.9 7.5 - 11.5 fL 02/19/2017 11:53 AM EDT LAB Whole blood specimen (specimen) 02/19/2017 11:43 AM EDT 02/19/2017 11:50 AM EDT Aaron Rocha MD LAB BLOOD ORDERABLES Final Resul t Performing Organization Address City/State/[facility] Co de Phone Number LAB [address] documented in this encounter Visit Diagnoses Diagnosis Diarrhea, unspecified type- Primary documented in this encounter Additional Health Concerns Assessment Noted Time PHQ-9 Depression Total Score: 10 017 8:00 AM EDT documented as of this encounter Care Teams Critical Care Technician Relationship Specialty Start Date End Date Marlo Rubio MD PCP - General Family Medicine 10/09/16 documented as of this encounter
--- OUTSIDE RECORDS SUMMARY | 2024-03-15 10:04 | XMS_ITS | Encounter Summary ---
Author Organization Address [address] [place] [address] Care Team Providers Care Precast Concrete Ironworker Name Role Phone Marlo Rubio MD Primary [...] release of HIV test results or diagnoses. [id number] Encounter Details Date Type Department Care Team (Late st Contact Info) Description 12/26/2017 Telephone [facility] Gastroenterology at [place] [facility] [address] [place] [phone] Myrtle Washington, IVETTE Social History Tobacco Use [...] I have received cardiac clearance from patient's clinic physician director Dr. Migue Anne as well as clearance to hold Plavix for 7 days. Sent to [employer] to be scanned She is scheduled for [...] documented as of this encounter Care Teams Precast Concrete Ironworker Relationship Specialty Start Date End Date Marlo Rubio MD PCP - General Family Medicine 10/09/16 documented as of this encounter
--- OUTSIDE RECORDS SUMMARY | 2024-03-15 10:04 | XMS_ITS | Encounter Summary ---
Author Organization [facility] Address [address] [place] [address] Care Team Providers Care Teaching Assistant Name Role Phone Marlo Rubio MD Primary [...] release of HIV test results or diagnoses. [id number] Health Reason for Visit * Auth/Cert Specialty Diagnoses / Procedures Referred By Contact Referred To Contact Gastroenterology Diagnoses Anemia Procedures EGD 70371 (CPT??) - [place] ESOPHAGOGASTRODUODENOSCOPY TRANSORAL DIAGNOSTIC 11133 (CPT??) - [place] EGD TRANSORAL BIOPSY SINGLE/MULTIPLE [facility] ENDOSCOPY [address] [place] [address] Phone: tel:[phone] Referral ID Status Reason Start Date Expiration Date Visits Re quested Visits Authorized [id number] 1 1 Encounter Details Date Type Department Care Team (Late st Contact Info) Description 12/02/2017 11:57 AM EDT Anesthesia Event [facility] ENDOSCOPY [address] [place] [phone] Dalia Rivera MD [address] [place] [address] Anesthesia Record Procedure Summary Procedure [...] from the original note were not included. [facility] DEPARTMENT OF ANESTHESIOLOGY PRE-PROCEDURAL EVALUATION Gardenia Childress is a 37 y.o. year old female presenting for: Procedure(s): EGD Surgeon: Aaron Rocha MD Chief Complaint Anemia Review of Systems Anesthesia Evaluation Patient summary reviewed, nursing notes reviewed, CHOKE REAMER/PAT note reviewed and Previous anesthesia note reviewed. No history of anesthetic complications I have reviewed the History and Physical Exam, any relevant changes are noted in the anesthesia pre-operative evaluation. Cardiovascular: Exercise tolerance: good Cummings Met score: 8 - Moving heavy furniture. Rapidly climbing stairs. Carrying 20 pounds up stairs.Valvular problems/murmurs (ASD closure 07/06/2017) related to. (-) hypertension, past [place], cardiomyopathy, CABG/stent, dysrhythmias (pvc's), angina, CHF. Neuro/Muscoloskeletal/Psych: [...] Type: MAC. Intravenous induction. Plan discussed with DECISION ANALYST and attending. documented in this encounter Plan [...] 0659(Not Admitted) 12/02/17699 - 12/03/17 0659 Shift [id number] 6200-0486 24 Hour Total 9633-3160 4010-9061 5682-2569 24 Hour Total I N T A [...] documented as of this encounter Care Teams Teaching Assistant Relationship Specialty Start Date End Date Marlo Rubio MD PCP - General Family Medicine 10/09/16 documented as of this encounter
--- OUTSIDE RECORDS SUMMARY | 2024-03-15 10:04 | XMS_ITS | Encounter Summary ---
Author Organization [facility] Address [address] [place] [address] Care Team Providers Care Annealing Furnace Operator Name Role Phone Marlo Rubio MD [...] release of HIV test results or diagnoses. [id number] Encounter Details Date Type Department Care Team (Late st Contact Info) Description 12/08/2017 Telephone [facility] Gastroenterology at [place] [facility] [address] [place] [phone] Myrtle Washington RN Social History Tobacco Use [...] documented as of this encounter Care Teams Annealing Furnace Operator Relationship Specialty Start Date End Date Marlo Rubio MD PCP - General Family Medicine 10/09/16 documented as of this encounter
--- OUTSIDE RECORDS SUMMARY | 2024-03-15 10:04 | XMS_ITS | Encounter Summary ---
Author Organization [facility] Address [address] [place] [address] Care Team Providers Care Airport Planner Name Role Phone Marlo Rubio MD Primary [...] release of HIV test results or diagnoses. [id number] Reason for Referral * Surgical (Routine) - Closed Specialty Diagnoses / Procedures Referred By Amalia t Referred To Contact Gastroenterology Diagnoses Anemia, unspecified type Diarrhea, unspecified type Procedures Case request GI: COLONOSCOPY W/ OR W/O BIOPSY NE COLONOSCOPY FLX DX W/COLLJ SPEC WHEN PFRMD NE COLONOSCOPY W/BIOPSY SINGLE/MULTIPLE NE COLSC FLX W/RMVL OF TUMOR POLYP LESION SNARE TQ Aaron Rocha MD [address] [place] [address] Phone: tel: fax: Referral ID Status Reason Start Date Expiration Date Visits Re quested Visits Authorized [id number] Closed 12/25/2017 06/23/2018 1 1 Encounter Details Date Type Department Care Team (Late st Contact Info) Description 12/25/2017 Orders Only [facility] Gastroenterology at [facility] [address] [place] [phone] Aaron Rocha MD [address] [place] [address] Anemia, unspecified type (Primary Dx); [...] as of this encounter Care Teams Airport Planner Relationship Specialty Start Date End Date Marlo Rubio MD PCP - General Family Medicine 10/09/16 documented as of this encounter
--- OUTSIDE RECORDS SUMMARY | 2024-03-15 10:04 | XMS_ITS | Encounter Summary ---
Author Organization [facility] Address [address] [place] [address] Care Team Providers Care Digital Analytics Manager Name Role Phone Marlo Rubio MD [...] release of HIV test results or diagnoses. [id number] Reason for Visit * Reason Comments Follow-up Encounter Details Date Type Department Care Team (Late st Contact Info) Description 04/22/2018 10:00 AM EST Office Visit [facility] Hepatobiliary at [address] [phone] Aaron Rocha MD [address] [place] [phone] Abdominal pain, unspecified abdominal location (Primary [...] was present during the visit (home from [facility]). I performed a colonoscopy on 01/12/2018 for evaluation of iron deficiency anemia. Colonoscopy was normal to the terminal ileum although prep was suboptimal with pools of thick fluid which could not be aspirated. Biopsies for microscopic colitis were negative. She developed severe epigastric pain for which she was seen in the ED at [place] [facility]. Evaluation was unremarkable including CBD, liver tests. [...] She was recently seenin the ER at [place] for MASON pain. Work-up of this was [...] documented as of this encounter Care Teams Digital Analytics Manager Relationship Specialty Start Date End Date Marlo Rubio MD PCP - General Family Medicine 10/09/16 documented as of this encounter
--- OUTSIDE RECORDS SUMMARY | 2024-03-15 10:04 | XMS_ITS | Encounter Summary ---
Author Organization [facility] Address [address] [place] [address] Care Team Providers Care Jewelry Polisher Name Role Phone Marlo Rubio MD [...] release of HIV test results or diagnoses. [id number] Reason for Visit * Reason Comments Follow-up Encounter Details Date Type Department Care Team (Late st Contact Info) Description 12/24/2017 11:00 AM EDT Office Visit [facility] Hepatobiliary at [address] [phone] Aaron Rocha MD [address] [place] [phone] Diarrhea, unspecified type (Primary Dx); Iron [...] EGD was performed per request of her vehicle washer to evaluate recent onset anemia. Duodenal biopsies [...] as of this encounter Care Teams Jewelry Polisher Relationship Specialty Start Date End Date Marlo Rubio MD PCP - General Family Medicine 10/09/16 documented as of this encounter
--- OUTSIDE RECORDS SUMMARY | 2024-03-15 10:04 | XMS_ITS | Encounter Summary ---
Author Organization [facility] Address [address] [place] [address] Care Team Providers Care Housekeeping Laundry Worker Name Role Phone Marlo Rubio MD [...] release of HIV test results or diagnoses. [id number] Health Reason for Visit * Reason Comments Follow-up Encounter Details Date Type Department Care Team (Late st Contact Info) Description 08/20/2017 11:00 AM EDT Office Visit [facility] Hepatobiliary at [address] [phone] Aaron Rocha MD [address] [place] [phone] Diarrhea, unspecified type (Primary Dx) Social [...] documented as of this encounter Care Teams Housekeeping Laundry Worker Relationship Specialty Start Date End Date Marlo Rubio MD PCP - General Family Medicine 10/09/16 documented as of this encounter
--- OUTSIDE RECORDS SUMMARY | 2024-03-15 10:04 | XMS_ITS | Encounter Summary ---
Author Organization [facility] Address [address] [place] [address] Care Team Providers Care Drop Wire Aligner Name Role Phone Marlo Rubio MD Primary [...] release of HIV test results or diagnoses. [id number] Health Reason for Visit * Reason Comments Follow-up Encounter Details Date Type Department Care Team (Late st Contact Info) Description 05/21/2017 8:00 AM EST Office Visit [facility] Hepatobiliary at [address] [phone] Aaron Rocha MD [address] [place] [phone] Diarrhea, unspecified type (Primary Dx) Social [...] She was hospitalized earlier this month at [facility] with chest pain. Incidentally noted to have [...] documented as of this encounter Care Teams Drop Wire Aligner Relationship Specialty Start Date End Date Marlo Rubio MD PCP - General Family Medicine 10/09/16 documented as of this encounter
--- OUTSIDE RECORDS SUMMARY | 2024-03-15 10:04 | XMS_ITS | Encounter Summary ---
Author Organization [facility] Address [address] [place] [address] Care Team Providers Care Dry Paste Supervisor Name Role Phone Marlo Rubio MD [...] release of HIV test results or diagnoses. [id number] Encounter Details Date Type Department Care Team (Late st Contact Info) Description 01/22/2018 Abstract [facility] Gastroenterology at [place] [facility] [address] [place] [phone] Juli Rocha MA Social History Tobacco Use [...] as of this encounter Care Teams Dry Paste Supervisor Relationship Specialty Start Date End Date Marlo Rubio MD PCP - General Family Medicine 10/09/16 documented as of this encounter
--- OUTSIDE RECORDS SUMMARY | 2024-03-15 10:04 | XMS_ITS | Encounter Summary ---
Author Organization [facility] Address [address] [place] [address] Care Team Providers Care Licensed Guide Name Role Phone Marlo Rubio MD Primary [...] release of HIV test results or diagnoses. [id number] Health Encounter Details Date Type Department Care Team (Late st Contact Info) Description 05/21/2017 Chart Note [facility] Gastroenterology at [place] [facility] [address] [place] [phone] Myrtle Washington, IVETTE Patient seen in pancreas [...] documented as of this encounter Care Teams Licensed Guide Relationship Specialty Start Date End Date Marlo Rubio MD PCP - General Family Medicine 10/09/16 documented as of this encounter
--- OUTSIDE RECORDS SUMMARY | 2024-03-15 10:04 | XMS_ITS | Encounter Summary ---
Author Organization [facility] Address [address] [place] [address] Care Team Providers Care Helper Electrical Name Role Phone Marlo Rubio MD Primary [...] release of HIV test results or diagnoses. [id number] Health Reason for Visit * Reason Comments Advice Only Pt has concerns abou t labs Encounter Details Date Type Department Care Team (Late st Contact Info) Description 06/24/2023 Telephone [facility] Hepatobiliary at [address] [phone] Aaron Rocha MD [address] [place] [phone] Advice Only (Pt has concerns about [...] with someone. Patient can be reached at [phone] documented in this encounter Plan of Treatment Not on file documented as of this encounter Visit Diagnoses Not on filedocumented in this encounter Additional Health Concerns Assessment Noted Time PHQ-9 Depression Total Score: 10 017 8:00 AM EDT documented as of this encounter Care Teams Helper Electrical Relationship Specialty Start Date End Date Marlo Rubio MD PCP - General Family Medicine 6/21/17 documented as of this encounter
--- OUTSIDE RECORDS SUMMARY | 2024-03-15 10:04 | XMS_ITS | Encounter Summary ---
Author Organization [facility] Address [address] [place] [address] Care Team Providers Care Clay Dry Press Operator Name Role Phone Marlo Rubio MD [...] release of HIV test results or diagnoses. [id number] Health Reason for Visit * Auth/Cert Specialty Diagnoses / Procedures Referred By Contact Referred To Contact Gastroenterology Diagnoses Anemia Procedures EGD 03546 (CPT??) - [place] ESOPHAGOGASTRODUODENOSCOPY TRANSORAL DIAGNOSTIC 57157 (CPT??) - [place] EGD TRANSORAL BIOPSY SINGLE/MULTIPLE [facility] ENDOSCOPY [address] [place] [address] Phone: tel:[phone] Referral ID Status Reason Start Date Expiration Date Visits Re quested Visits Authorized [id number] 1 1 Encounter Details Date Type Department Care Team (Latest Contact Info) Description 12/02/2017 7:47 AM EDT - 12/02/2017 1:15 PM EDT Hospital Encounter [facility] ENDOSCOPY [address] [place] [address] Aaron Rocha MD [address] [place] [address] Anemia; Anemia, unspecified type Discharge [...] Dumont RN - 12/02/2017 12:58 PM EDT [facility] ENDOSCOPY INSTRUCTION/RELEASE FORMS Date: 12/02/2017 Procedure: Procedure(s): EGD IF YOU DEVELOP EXCESSIVE BLEEDING, UNCONTROLLED PAIN OR SHORTNESS OF BREATH, GO TO THE EMERGENCY DEPARTMENT FOR AN EXAMINATION. IF YOU DEVELOP CHILLS, FEVER (greater than 100.5) OR HAVE CONCERNS ABOUT YOUR RECOVERY, CALL [phone] and ask for the G.I. Fellow on-call. [...] for exam: chest tightness. Referred by her medical clinic manager. Patient Active Problem List Diagnosis ??? Congenital [...] Rocha MD - 12/02/2017 11:56 AM EDT [id number] Procedure Date: 12/02/2017 11:56 AM Patient Name: Ishan Childress Date of : 1980 Admit Type: Outpatient Age: 37 Gender: Female Note Status: Finalized Attending MD: Aaron Rocha MD Procedure: Upper GI endoscopy Indications: The patient is a 37 y.o. female who experienced chest discomfort and was found to be anemic. EGD was planned per request of her medical clinic manager. Providers: Aaron Rocha MD Referring MD: Aaron [...] be scheduled. Procedure Code(s): --- Professional --- 16665, Esophagogastroduodenoscopy, flexible, transoral; with biopsy, single or multiple Diagnosis Code(s): --- Professional --- D50.9, Iron deficiency anemia, unspecified R07.9, Chest pain, unspecified CPT copyright 2016 [employer]. All rights reserved. The codes documented in this report are preliminary and upon seismometer operator review may be revised to meet current compliance requirements. Aaron Rocha MD 12/02/2017 1:19:41 PM This report has been signed electronically.Aaron Rocha MD Total Procedure Duration Time 0 hours 9 minutes 28 seconds Scope In: 12:06:26 PM Scope Out: 12:15:[address] [place] [address] [id number] documented in this encounter Plan of Treatment [...] POWERPATH - 12/02/2017 12:00 AM EDT CASE: [id number] PATIENT: ISHAN CHILDRESS Clinical History: ?? EGD Pre-Operative Diagnosis: anemia Post-Operative Diagnosis: ? Normal EGD Specimen(s) Submitted: ?? A. duodenal bx CPT Code(s): ?? 86678 X 1 Additional Information: FINAL DIAGNOSIS: Duodenum, [...] Pathologist signing this report is located at [facility], [address] [place] [address], [place], [place], [facility], , CLIA ID: [id number] Aaron Rocha MD PATHOLOGY/CYTOLOGY ORDERABLES Fi nal [...] documented as of this encounter Care Teams Clay Dry Press Operator Relationship Specialty Start Date End Date Marlo Rubio MD PCP - General Family Medicine 10/09/16 documented as of this encounter
--- OUTSIDE RECORDS SUMMARY | 2024-03-15 10:04 | XMS_ITS | Encounter Summary ---
Author Organization [facility] Address [address] [place] [address] Care Team Providers Care Blow Mold Technician Name Role Phone Marlo Rubio MD [...] release of HIV test results or diagnoses. [id number] Encounter Details Date Type Department Care Team (Late st Contact Info) Description 01/14/2018 Telephone [facility] Gastroenterology at [place] [facility] [address] [place] [phone] Myrtle Washington RN Social History Tobacco Use [...] Dr. Margarito Rubio. Mailed to Dr. Rubio [address] [place] [address], [facility] * Telephone Encounter - Myrtle Washington RN [...] documented as of this encounter Care Teams Blow Mold Technician Relationship Specialty Start Date End Date Marlo Rubio MD PCP - General Family Medicine 10/09/16 documented as of this encounter
--- OUTSIDE RECORDS SUMMARY | 2024-03-15 10:04 | XMS_ITS | Encounter Summary ---
Author Organization [facility] Address [address] [place] [address] Care Team Providers Care Blood Donor Recruiter Name Role Phone Marlo Rubio MD Primary [...] release of HIV test results or diagnoses. [id number] Health Reason for Visit * Auth/Cert Specialty Diagnoses / Procedures Referred By Contact Referred To Contact Gastroenterology Diagnoses Anemia Procedures EGD 60774 (CPT??) - [place] ESOPHAGOGASTRODUODENOSCOPY TRANSORAL DIAGNOSTIC 45417 (CPT??) - [place] EGD TRANSORAL BIOPSY SINGLE/MULTIPLE [facility] ENDOSCOPY [address] [place] [address] Phone: tel:[phone] Referral ID Status Reason Start Date Expiration Date Visits Re quested Visits Authorized [id number] 1 1 Encounter Details Date Type Department Care Team (Late st Contact Info) Description 12/02/2017 11:00 AM EDT - 12/02/2017 11:30 AM EDT Surgery [facility] ENDOSCOPY [address] [place] [address] Aaron Rocha MD [address] [place] [address] EGD Surgery Details Date/Time Status [...] Dumont RN - 12/02/2017 12:58 PM EDT [facility] ENDOSCOPY INSTRUCTION/RELEASE FORMS Date: 12/02/2017 Procedure: Procedure(s): EGD IF YOU DEVELOP EXCESSIVE BLEEDING, UNCONTROLLED PAIN OR SHORTNESS OF BREATH, GO TO THE EMERGENCY DEPARTMENT FOR AN EXAMINATION. IF YOU DEVELOP CHILLS, FEVER (greater than 100.5) OR HAVE CONCERNS ABOUT YOUR RECOVERY, CALL [phone] and ask for the G.I. Fellow on-call. [...] for exam: chest tightness. Referred by her technology intern. Patient Active Problem List Diagnosis ??? Congenital [...] ETOH dehydrated; Surgeon: Deborah Parker MD; Location: [facility]; Service: Transplant; Laterality: N/A; Family History Problem [...] Rocha MD - 12/02/2017 11:56 AM EDT [id number] Procedure Date: 12/02/2017 11:56 AM Patient Name: Ishan Childress Date of : 1980 Admit Type: Outpatient Age: 37 Gender: Female Note Status: Finalized Attending MD: Aaron Rocha MD Procedure: Upper GI endoscopy Indications: The patient is a 37 y.o. female who experienced chest discomfort and was found to be anemic. EGD was planned per request of her technology intern. Providers: Aaron Rocha MD Referring MD: Aaron [...] be scheduled. Procedure Code(s): --- Professional --- 08111, Esophagogastroduodenoscopy, flexible, transoral; with biopsy, single or multiple Diagnosis Code(s): --- Professional --- D50.9, Iron deficiency anemia, unspecified R07.9, Chest pain, unspecified CPT copyright 2016 [employer]. All rights reserved. The codes documented in this report are preliminary and upon letterer review may be revised to meet current compliance requirements. Aaron Rocha MD 12/02/2017 1:19:41 PM This report has been signed electronically.Aaron Rocha MD Total Procedure Duration Time 0 hours 9 minutes 28 seconds Scope In: 12:06:26 PM Scope Out: 12:15:[address] [place] [address] documented in this encounter Plan of Treatment [...] [facility] - 12/02/2017 12:00 AM EDT CASE: [id number] PATIENT: ISHAN CHILDRESS Clinical History: ?? EGD Pre-Operative Diagnosis: anemia Post-Operative Diagnosis: ? Normal EGD Specimen(s) Submitted: ?? A. duodenal bx CPT Code(s): ?? 28334 X 1 Additional Information: FINAL DIAGNOSIS: Duodenum, [...] Pathologist signing this report is located at [facility], [address] [place] [address], [place], [place], [facility], , CLIA ID: [id number] Aaron Rocha MD PATHOLOGY/CYTOLOGY ORDERABLES Fi nal Result Performing Organization Address [facility]/State/ZIP Co de Phone Number [facility] documented [...] documented as of this encounter Care Teams Blood Donor Recruiter Relationship Specialty Start Date End Date Marlo Rubio MD PCP - General Family Medicine 10/09/16 documented as of this encounter
--- OUTSIDE RECORDS SUMMARY | 2024-03-15 10:04 | XMS_ITS | Encounter Summary ---
Author Organization [facility] Address [address] [place] [address] Care Team Providers Care Private Duty Rn Name Role Phone Marlo Rubio MD Primary [...] release of HIV test results or diagnoses. [id number] Encounter Details Date Type Department Care Team (Late st Contact Info) Description 12/26/2017 Orders Only [facility] G[facility]enterology at [facility] [address] [place] [address] Aaron Rocha MD [address] [place] [address] Social History Tobacco Use Types [...] documented as of this encounter Care Teams Private Duty Rn Relationship Specialty Start Date End Date Marlo Rubio MD PCP - General Family Medicine 10/09/16 documented as of this encounter
--- OUTSIDE RECORDS SUMMARY | 2024-03-15 10:04 | XMS_ITS | Encounter Summary ---
Author Organization [place] [address] Care Team Providers Care Supervisory Investigative Specialist Name Role Phone Unavailable Primary Care [...] 04/24/2024 10:45 AM EST Clinical Support [facility] [address] [place] [phone] documented as of this encounter Visit Diagnoses Not on filedocumented in this encounter
--- OUTSIDE RECORDS SUMMARY | 2024-03-15 10:04 | XMS_ITS | Encounter Summary ---
Author Organization [place] [address] Care Team Providers Care Paper Sheeter Name Role Phone Unavailable Primary Care Provider [...] Clinical Support [facility] [address] [place] [phone] documented as of this encounter Visit Diagnoses Not on filedocumented in this encounter
--- OUTSIDE RECORDS SUMMARY | 2024-03-15 10:04 | XMS_ITS | Encounter Summary ---
Author Organization [facility] Address [address] [place] [address] Care Team Providers Care Liberal Arts Teacher Name Role Phone Marlo Rubio MD [...] release of HIV test results or diagnoses. [id number] Encounter Details Date Type Department Care Team (Late st Contact Info) Description 01/12/2018 Telephone [facility] Gastroenterology at [facility] [address] [place] [phone] Myrtle Washington RN Social History Tobacco Use [...] documented as of this encounter Care Teams Liberal Arts Teacher Relationship Specialty Start Date End Date Marlo Rubio MD PCP - General Family Medicine 10/09/16 documented as of this encounter
--- OUTSIDE RECORDS SUMMARY | 2024-03-15 10:04 | XMS_ITS | Encounter Summary ---
Author Organization [place] [address] Care Team Providers Care Care Giver Name Role Phone Unavailable Primary Care Provider [...] [facility] [address] [place] [phone] documented as of this encounter Visit Diagnoses Not on filedocumented in this encounter
--- OUTSIDE RECORDS SUMMARY | 2024-03-15 10:04 | XMS_ITS | Encounter Summary ---
Author Organization [place] [address] Care Team Providers Care Hammer Shop Supervisor Name Role Phone Unavailable Primary Care [...] Clinical Support [facility] [address] [place] [address] documented as of this encounter Visit Diagnoses Not on filedocumented in this encounter
--- OUTSIDE RECORDS SUMMARY | 2024-03-15 10:04 | XMS_ITS | Encounter Summary ---
Author Organization [facility] Address [address] [place] [address] Care Team Providers Care Panama Hat Smearer Name Role Phone Marlo Rubio MD Primary [...] release of HIV test results or diagnoses. [id number] Encounter Details Date Type Department Care Team (Late st Contact Info) Description 08/19/2017 Telephone [facility] Gastroenterology at [facility] [address] [place] [phone] Di Pearl Social History Tobacco Use Types [...] documented as of this encounter Care Teams Panama Hat Smearer Relationship Specialty Start Date End Date Marlo Rubio MD PCP - General Family Medicine 10/09/16 documented as of this encounter
--- OUTSIDE RECORDS SUMMARY | 2024-03-15 10:04 | XMS_ITS | Encounter Summary ---
Author Organization [facility] Address [address] [place] [address] Care Team Providers Care Flume Tender Name Role Phone Marlo Rubio MD Primary [...] release of HIV test results or diagnoses. [id number] Encounter Details Date Type Department Care Team (Late st Contact Info) Description 11/24/2017 Telephone [facility] Gastroenterology at [facility] [address] [place] [phone] Myrtle Washington, IVETTE Social History Tobacco Use [...] blood pressure medication. Instructed to arrive at [facility] at 9:00 am with escort. Directions [...] an appointment upon the recommendation of her event lighting specialist. Patientstates that event lighting specialist thinks she has a bleeding ulcer or [...] documented as of this encounter Care Teams Flume Tender Relationship Specialty Start Date End Date Marlo Rubio MD PCP - General Family Medicine 10/09/16 documented as of this encounter
--- OUTSIDE RECORDS SUMMARY | 2024-03-15 10:04 | XMS_ITS | Encounter Summary ---
Author Organization [facility] Address [address] [place] [address] Care Team Providers Care Processor Solid Propellant Name Role Phone Marlo Rubio MD Primary [...] release of HIV test results or diagnoses. [id number] Reason for Visit * Reason Comments Labs Only Encounter Details Date Type Department Care Team (Late st Contact Info) Description 02/21/2017 9:55 AM EDT Specimen [facility] Outreach Lab [address] [facility] [address] [place] [address] Aaron Rocha MD [address] [place] [address] Diarrhea, unspecified type Social History [...] unspecified type STL-FRANC, SHIG, CAMPY, AER, PLE, [id number] Routine 02/21/2017 9:55 AM EDT documented in this encounter Results * Giardia Cryptosporidium Antigens (02/21/2017 9:55 AM EDT) Cryptosporidium Ag Negative Negative 2016 7:59 AM EST [facility] Giardia Ag Negative Negative 02/24/2017 7:59 AM EST [facility] Comment: Detection of Giardia and Cryptosporidium antigen is more sensitive and specific than microscopy. ??Because antigens are shed continuously, repeat testing is rarely warranted. ?? Stool specimen (specimen) 02/21/2017 9:55 AM EDT 02/21/2017 3:08 PM EDT Comment:F us Aaron Rocha MD MICROBIOLOGY - GENERAL ORDERABLE S Final Result Performing Organization Address [facility]/ZIP Co de Phone Number [facility] [address] * Shiga Toxin 1 and 2 Assay (02/21/2017 9:55 AM EDT) Shigatoxin No Shiga toxin detected [facility] Stool specimen (specimen) 02/21/2017 9:55 AM EDT 02/21/2017 3:08 PM EDT Comment:F us Aaron Rocha MD BODY FLUIDS AND STOOLS ORDERABLE S Final Result Performing Organization Address City/State/[facility] Co de Phone Number [facility] [address] * STL-Franc, Shig, Campy, Aer, Ple, [id number] (02/21/2017 9:55 AM EDT) Culture Result No Salmonella, Shigella, Campy, Aero/Plesiom onas or E.coli 0157 isolated [facility] Stool specimen (specimen) 02/21/2017 9:55 AM EDT 02/21/2017 3:08 PM EDT Comment:F Narrative [facility] - 02/25/2017 10:34 AM [facility] [employer] recommends testing for Clostridium difficile toxin, rather than stool examination for enteric pathogens or parasites, on patients that have been hospitalized for more than 3 days. us Aaron Rocha MD MICROBIOLOGY - GENERAL ORDERABLE S Final Result Performing Organization Address [facility]/ZIP Co de Phone Number [facility] [address] * Ova and Parasite Comprehensive w/ Giardia/Crypto (02/21/2017 9:55 AM EDT) Pathologist [facility] O & P Method: Concentration and Trichrome Stain [facility] Results No Amoeba, Ova, Or Parasites Seen. -- O and P examination of additional specimens is recommended only for symptomatic patients, immunosuppressed patients or those with an appropriate travel history. [facility] Stool specimen (specimen) FECES / Unknown 02/21/2017 9:55 AM EDT 02/21/2017 3:08 PM EDT Comment:F us Aaron Rocha MD MICROBIOLOGY - GENERAL ORDERABLE S Final Result [facility] [address] [facility]. [address] * Clost difficile DNA Amplification (02/21/2017 9:55 AM EDT) Clost. Diff DNA Amp. Negative Negative 02/21/2017 10:58 PM EDT [facility] Comment:Positive indicates t oxigenic C. [...] ORDERABLE S Final Result Performing Organization Address City/State/[facility] Co de Phone Number [facility] [address] documented in this encounter Visit Diagnoses Diagnosis Diarrhea, unspecified type documented in this encounter Additional Health Concerns Assessment Noted Time PHQ-9 Depression Total Score: 10 11/20/ 017 8:00 AM EDT documented as of this encounter Care Teams Processor Solid Propellant Relationship Specialty Start Date End Date Marlo Rubio MD PCP - General Family Medicine 10/09/16 documented as of this encounter
--- OUTSIDE RECORDS SUMMARY | 2024-03-15 10:05 | XMS_ITS | Encounter Summary ---
Author Organization [facility] Address [address] [place] [address] Care Team Providers Care Vessel Crew Member Name Role Phone Marlo Rubio MD Primary [...] release of HIV test results or diagnoses. [id number] Health Reason for Visit * Auth/Cert Specialty Diagnoses / Procedures Referred By Amalia tuttle Referred To Contact Diagnoses Generalized abdominal pain Celiac artery stenosis ([facility]) SDA 11/07 Generalized abdominal pain [R10.84] Celiac artery stenosis [I77.4] Procedures CASE REQUEST OPERATING ROOM VT DIAPHRAGM SURG PROC UNLISTED VT REVISION OF DIAPHRAGM VT RESECT DIAPHRAM,SIMPLE REPAIR EXPLORATORY LAPAROTOMY [facility] [address] [place] [address] Phone: tel: Referral ID Status Reason Start Date Expiration Date Visits Re quested Visits Authorized [id number] 1 1 Encounter Details Date Type Department Care Team (Late st Contact Info) Description 11/07/2016 1:15 PM EDT Anesthesia Event [facility] [address] [place] [phone] Alondra Monreal MD [address] [place] [address] Cabrera, Ly Sparkle, DO Anesthesia Record Procedure Summary Procedure Name [...] the original note were not included. [facility] DEPARTMENT OF ANESTHESIOLOGY PRE-PROCEDURAL EVALUATION Gardenia Childress is a 36 y.o. year old female presenting for: Procedure(s): Exploratory Laparotomy, Median Arcuate Ligament Division Surgeon: Deborah Parker MD Chief Complaint SDA 11/07 Generalized abdominal pain [R10.84]; Celiac artery stenosis [I77.* Review of Systems Anesthesia Evaluation Patient summary reviewed, nursing notes reviewed, OPEN HEARTH FURNACE OPERATOR HELPER/PAT note reviewed and Previous anesthesia note reviewed. No history of anesthetic complications I have reviewed the History and Physical Exam, any relevant changes are noted in the anesthesia pre-operative evaluation. Cardiovascular: Exercise tolerance: good Cummings Met score: 8 - Moving heavy furniture. Rapidly climbing stairs. Carrying 20 pounds up stairs. (+) dysrhythmias (pvc's). (-) hypertension, past ID, cardiomyopathy, CABG/stent, angina, CHF. Neuro/Muscoloskeletal/Psych: (+) headaches [...] 11/06/16 1500 - 11/07/16 0659(Not Admitted) 11/07/16 07 - 11/08/16 0659 Shift 2162-2052 0705-9909 24 Hour Total [id number] 2669-0389 4659-9710 24 Hour Total I N T A K E I.V. 1000 (15.3) 1600 (24.5) 2600 (39.8) Volume (mL) (electrolyte-R (pH 7.4) (NORMOSOL-R pH 7.4) iv solution SolP) 1000 1000 Volume (mL) (lactated Ringers infusion) 9960 510 1268 Shift Total (mL/kg) 1000 (15.3) 1600 (24.5) [...] IVPB 1 g, Intravenous, at 200 mL/hr, vacuum frame operator to O.R., vacuum frame operator to O.R., Starting on Stephanie 11/07/16 at [...] mg documented in this encounter Care Teams Vessel Crew Member Relationship Specialty Start Date End Date Marlo Rubio MD PCP - General Family Medicine 10/09/16 documented as of this encounter
--- OUTSIDE RECORDS SUMMARY | 2024-03-15 10:05 | XMS_ITS | Encounter Summary ---
Author Organization [facility] Address [address] [place] [address] Care Team Providers Care Pullman Clerk Name Role Phone Marlo Rubio MD Primary [...] release of HIV test results or diagnoses. [id number] Health Reason for Visit * Reason Comments Post-op Evaluation Exploratory Laparoto my, Median Arcuate Ligament Division, Celiac Ganglian plexis injection with ETOH dehydrated Encounter Details Date Type Department Care Team (Late st Contact Info) Description 11/20/2016 11:30 AM EDT Office Visit [facility] Transplant Surgery at [facility] [address] [facility] [address] [place] [address] Deborah Parker MD [address] [facility] [address] [place] [address] Generalized abdominal pain (Primary Dx) [...] at this time Wound/Incision: clean & dry Sutures/Stanford: removed Dressing: N/A - no dressings needed [...] documented as of this encounter Care Teams Pullman Clerk Relationship Specialty Start Date End Date Marlo Rubio MD PCP - General Family Medicine 10/09/16 documented as of this encounter
--- OUTSIDE RECORDS SUMMARY | 2024-03-15 10:05 | XMS_ITS | Encounter Summary ---
Author Organization [facility] Address [address] [place] [address] Care Team Providers Care Enzyme Chemist Name Role Phone Marlo Rubio MD Primary [...] release of HIV test results or diagnoses. [id number] Reason for Referral * Surgical (Routine) - Closed Specialty Diagnoses / Procedures Referred By Amalia tuttle Referred To Contact Radiology Diagnoses Difficult intravenous access Procedures IR PICC Right wo port pum > 5 years AMB Referral to Interventional Radiology (BODY IR) DC INSERT PICC W/O SUB-Q PORT CHG FLUOROGUIDE CNTRL KRISTOPHER ACCESS,PLACE,REPLACE,REMOVE Deborah Parker MD [address] [facility] [address] [place] [address] Phone: tel: fax: Referral ID Status Reason Start Date Expiration Date Visits Re quested Visits Authorized [id number] Closed 10/10/2016 04/08/2017 1 1 Encounter Details Date Type Department Care Team (Late st Contact Info) Description 10/10/2016 Orders Only [facility] Transplant Surgery at [facility] [address] [facility] [address] [place] [address] Deborah Parker MD [address] [facility] [place] [address] [place] [address] Difficult intravenous access (Primary Dx) [...] access documented in this encounter Care Teams Enzyme Chemist Relationship Specialty Start Date End Date Marlo Rubio MD PCP - General Family Medicine 10/09/16 documented as of this encounter
--- OUTSIDE RECORDS SUMMARY | 2024-03-15 10:05 | XMS_ITS | Encounter Summary ---
Author Organization [facility] Address [address] [place] [address] Care Team Providers Care Nursery Technician Name Role Phone Marlo Rubio MD [...] release of HIV test results or diagnoses. [id number] Health Encounter Details Date Type Department Care Team (Late st Contact Info) Description 10/25/2016 Telephone [facility] Transplant Surgery at [facility] [address] [facility] [address] [place] [address] Deborah Parker MD [address] [facility] [address] [place] [address] Social History Tobacco Use Types [...] on filedocumented in this encounter Care Teams Nursery Technician Relationship Specialty Start Date End Date Marlo Rubio MD PCP - General Family Medicine 10/09/16 documented as of this encounter
--- OUTSIDE RECORDS SUMMARY | 2024-03-15 10:05 | XMS_ITS | Encounter Summary ---
Author Organization [facility] Address [address] [place] [address] Care Team Providers Care Gin Feeder Name Role Phone Marlo Rubio MD Primary [...] release of HIV test results or diagnoses. [id number] Reason for Visit * Reason Comments Pre-op Exam generalized abdomina l pain, celiac artery stenosis Encounter Details Date Type Department Care Team (Late st Contact Info) Description 11/04/2016 9:30 AM EDT Office Visit [facility] Perioperative Care at [facility] [address] [place] [phone] Romana Hurley CNP [address] [phone] Generalized abdominal pain (Primary Dx); Celiac artery [...] Patient Instructions * Patient Instructions* Romana Figueroa, ARABIC PROFESSOR - 11/04/2016 9:49 AM EDT Pre-Procedure Instructions We???re pleased that you have chosen [facility] for your upcoming procedure. The staffserving you [...] Center on the second floor of the [facility] hospital ??? DO NOT EAT OR [...] jewelry, body piercings, powder, perfume, and nail divehi before you arrive. ??? Bring a list of your medications and dose including herbal and pfor-srm-[id number] medications. Donot bring any pills or medications [...] May take Tylenol for pain Contact information: [facility] Perioperative Care, Friday - Friday 8:30 am - 5:00 pm [facility], - Friday 8:30 am - 5:00 pm documented in this encounter H&P Notes * Yovani Alcantar MD - 11/04/2016 8:52 AM EDT ANESTHESIOLOGY CONSULTATION AND PRE-OPERATIVE HISTORY AND PHYSICAL Subjective: [facility] Attending Physician: Yovani Alcantar MD MANAGEMENT PLANNER BEEF PLUCK TRIMMER / PA: Romana Figueroa CNP Date of [...] instructions given, patient verbalized understanding. Romana Figueroa, ARABIC PROFESSOR Attending Addendum: I have seen and examined [...] but not limited to , cardiac arrest, DE, CVA, transfusion, and transfusion-associated risks. They verbalized [...] BLOOD ORDERABLES Final Resu lt [facility] [address] [place] [address], [facility] * Protime-INR (11/04/2016 10:38 [...] MD LAB BLOOD ORDERABLES Final Resu lt [facility] [address] [facility] [place] [address], [facility] * Differential (11/04/2016 10:38 AM EDT) Neutrophils Relative 58.8 40.0 - 80.0 % 11/04/2016 10:57 AM EDT [facility] Lymphocytes Relative 28.2 15.0 - 45.0 % 11/04/2016 10:57 AM EDT [facility] Monocytes Relative 6.8 0.0 - 12.0 % 11/04/2016 10:57 AM EDT [facility] Eosinophils Relative 5.8 0.0 - 8.0 % 11/04/2016 10:57 AM EDT [facility] Basophils Relative 0.4 0.0 - 1.0 % 11/04/2016 10:57 AM EDT [facility] nRBC 0 0 - 0 /100 WBC 11/04/2016 10:57 AM EDT [facility] Neutrophils Absolute 3,940 1,500 - 7,800 /uL 11/04/2016 10:57 AM EDT [facility] Lymphocytes Absolute 1,889 850 - 3,900 /uL 11/04/2016 10:57 AM EDT [facility] Monocytes Absolute 456 200 - 950 /uL 11/04/2016 10:57 AM EDT [facility] Eosinophils Absolute 389 15 - 500 /uL 11/04/2016 10:57 AM EDT [facility] Basophils Absolute 27 0 - 200 /uL 11/04/2016 10:57 AM EDT [facility] Whole blood specimen (specimen) 11/04/2016 10:38 AM EDT 11/04/2016 10:49 AM EDT us Deborah Parker MD LAB BLOOD ORDERABLES Final Resu lt [facility] [address] * (ABNORMAL) CBC (11/04/2016 10:38 AM EDT) WBC 6.7 3.8 - 10.8 10E3/uL 11/04/2016 10:57 AM EDT [facility] RBC 4.18 3.80 - 5.10 10E6/uL 11/04/2016 10:57 AM EDT [facility] Hemoglobin 12.1 11.7 - 15.5 g/dL 11/04/2016 10:57 AM EDT [facility] Hematocrit 34.9(L) 35.0 - 45.0 % 11/04/2016 10:57 AM EDT [facility] MCV 83.5 80.0 - 100.0 fL 11/04/2016 10:57 AM EDT [facility] MCH 29.0 27.0 - 33.0 pg 11/04/2016 10:57 AM EDT [facility] MCHC 34.7 32.0 - 36.0 g/dL 11/04/2016 10:57 AM EDT [facility] RDW 13.6 11.0 - 15.0 % 11/04/2016 10:57 AM EDT [facility] Platelets 331 140 - 400 10E3/uL 11/04/2016 10:57 AM EDT [facility] MPV 7.6 7.5 - 11.5 fL 11/04/2016 10:57 AM EDT [facility] Whole blood specimen (specimen) 11/04/2016 10:38 AM EDT 11/04/2016 10:49 AM EDT us Deborah Parker MD LAB BLOOD ORDERABLES Final Resu lt Performing Organization Address City/[facility]/ZIP Co de Phone Number [facility] [address] * Antibody screen (11/04/2016 10:38 AM EDT) Antibody Screen Negative 11/04/2016 1:20 PM EDT [facility] Blood specimen (specimen) 11/04/2016 10:38 AM EDT 11/04/2016 10:56 AM EDT Narrative [facility] - 11/04/2016 1:25 PM EDT Testing performed by [facility] Transfusion Service Deborah Parker MD BLOOD BANK TEST ORDERABLES Antonia l Result Performing Organization Address City/[facility] Co de Phone Number [facility] [address] * ABO/Rh (11/04/2016 10:38 AM EDT) ABO Grouping O 11/04/2016 1:20 PM EDT [facility] Rh Type Positive 11/04/2016 1:20 PM EDT [facility] Blood specimen (specimen) 11/04/2016 10:38 AM EDT 11/04/2016 10:56 AM EDT us Deborah Parker MD BLOOD BANK TEST ORDERABLES Antonia l Result Performing Organization Address [facility] Co de Phone Number [facility] [address] [place] [address] * (ABNORMAL) Renal Function Panel w/EGFR (11/04/2016 10:38 AM EDT) Pathologist [facility] Sodium 142 133 - 146 mmol/L 11/04/2016 11:20 AM EDT [facility] Potassium 3.8 3.5 - 5.3 mmol/L 11/04/2016 11:20 AM EDT [facility] Chloride 111(H) 98 - 110 mmol/L 11/04/2016 11:20 AM EDT [facility] CO2 24 21 - 33 mmol/L 11/04/2016 11:20 AM EDT [facility] Anion Gap 7 3 - 16 mmol/L 11/04/2016 11:20 AM EDT [facility] BUN 8 7 - 25 mg/dL 11/04/2016 11:20 AM EDT [facility] Creatinine 0.73 0.60 - 1.30 mg/dL 11/04/2016 11:20 AM EDT [facility] Glucose 71 70 - 100 mg/dL 11/04/2016 11:20 AM EDT [facility] Calcium 9.0 8.6 - 10.3 mg/dL 11/04/2016 11:20 AM EDT [facility] Phosphorus 3.4 2.1 - 4.7 mg/dL 11/04/2016 11:20 AM EDT [facility] Albumin 3.8 3.5 - 5.7 g/dL 11/04/2016 11:20 AM EDT [facility] Osmolality, Calculated 291 278 - 305 mOsm/kg 11/04/2016 11:20 AM EDT [facility] eGFR AA CKD-EPI >90 See note. 7 11:20 AM EDT [facility] eGFR NONAA CKD-EPI >90 See note. 11/04/2016 11:20 AM EDT [facility] Plasma specimen (specimen) 11/04/2016 10:38 AM EDT 11/04/2016 10:49 AM EDT Narrative [facility] - 11/04/2016 11:20 AM EDT As [...] equation to estimate glomerular filtration rate. ??Alexa Textile Stylist Med. 2009:150(9):604-12 us Deborah Parker MD LAB BLOOD ORDERABLES Final Resu lt [facility] [address] [facility] [place] [address], [facility] * Hepatic Function Panel (11/04/2016 10:38 AM EDT) Total Bilirubin 0.3 0.0 - 1.5 mg/dL 11/04/2016 11:20 AM EDT [facility] Bilirubin, Direct 0.04 0.00 - 0.40 mg/dL 11/04/2016 11:20 AM EDT [facility] AST 14 13 - 39 U/L 11/04/2016 11:20 AM EDT [facility] ALT 10 7 - 52 U/L 11/04/2016 11:20 AM EDT [facility] Alkaline Phosphatase 59 36 - 125 U/L 11/04/2016 11:20 AM EDT [facility] Total Protein 6.8 6.4 - 8.9 g/dL 11/04/2016 11:20 AM EDT [facility] Albumin 3.8 3.5 - 5.7 g/dL 11/04/2016 11:20 AM EDT [facility] Bilirubin, Indirect 0.26 0.00 - 1.10 mg/dL 11/04/2016 11:20 AM EDT [facility] Plasma specimen (specimen) 11/04/2016 10:38 AM EDT 11/04/2016 10:49 AM EDT us Deborah Parker MD LAB BLOOD ORDERABLES Final Resu lt [facility] [address] [place] [address], [facility] documented in this encounter Visit Diagnoses Diagnosis Generalized abdominal pain- Primary Abdominal pain, generalized Celiac artery stenosis (CMS-HCC) Stricture of artery Congenital biliary atresia documented in this encounter Care Teams Gin Feeder Relationship Specialty Start Date End Date Marlo Rubio MD PCP - General Family Medicine 10/09/16 documented as of this encounter
--- OUTSIDE RECORDS SUMMARY | 2024-03-15 10:05 | XMS_ITS | Encounter Summary ---
Author Organization [facility] Address [address] [place] [address] Care Team Providers Care Centerless Grinder Set Up Operator Name Role Phone Marlo Rubio [...] release of HIV test results or diagnoses. [id number] Health Reason for Visit * Auth/Cert Specialty Diagnoses / Procedures Referred By Amalia tuttle Referred To Contact Diagnoses Generalized abdominal pain Celiac artery stenosis (CMS-HCC) SDA 11/07 Generalized abdominal pain [R10.84] Celiac artery stenosis [I77.4] Procedures CASE REQUEST OPERATING ROOM MI DIAPHRAGM SURG PROC UNLISTED MI REVISION OF DIAPHRAGM MI RESECT DIAPHRAM,SIMPLE REPAIR EXPLORATORY LAPAROTOMY [facility] PERIOP [address] [place] [address] Phone: tel: Referral ID Status Reason Start Date Expiration Date Visits Re quested Visits Authorized [id number] 1 1 Encounter Details Date Type Department Care Team (Latest Contact Info) Description 11/07/2016 5:11 AM EDT - 11/10/2016 6:17 PM EDT Hospital Encounter [facility] 9CCP [address] [place] [address] Deborah Parker MD [address] [facility] [address] [place] [phone] Generalized abdominal pain; Celiac artery stenosis (CMS-HCC) [...] from the original note were not included. [facility] Department of Surgery Inpatient Discharge Summary Patient: Gardenia Childress : 1980 CSN: [id number] Date of Admission: 11/07/2016 Date of Discharge: [...] Case IDs Date Procedure Surgeon Location Status [id number] 11/07/16 Exploratory Laparotomy, Median Arcuate Ligament Division Deborah Parker MD OR [facility] CONSULTING SERVICES 1. None DISCHARGE MEDICATIONS Medication [...] Center 11/20/2016 8:30 AM Aaron Rocha MD [facility] 11/20/2016 11:30 AM Deborah Parker MD [facility] [place] [facility] M[facility] MAB PATIENT INSTRUCTIONS Activity: activity as tolerated Diet: regular diet Wound Care: keep wound clean and dry Department of Surgery Division of Transplantation [facility] [address] [place], [place] [address] [address] [facility] email: [email or web address] Deborah Parker MD, [facility] director bioinformatics Director, Liver Transplantation and Hepatobiliary Surgery Post-Operative [...] (follow the directions). PLEASE CALL OUR OFFICE [phone] WITH ANY QUESTIONS OR CONCERNS Mon-Fri 9AM-5PM. Follow-up Appointment: 11/20/16 @ 11:30 AM (please arrive at 11:00 AM), on the 7th floor of the [email or web address] Building with Dr. Parker. FRANKLYN PATEL MD 11/10/2016 Cosigned by Ermelinda Arrington MD at 11/10/2016 5:32 PM EDT documented in this encounter Discharge Instructions * Discharge Instructions* Jessica Haq, DUY - 11/08/2016 3:32 PM EDT Images from the original note were not included. Department of Surgery Division of Transplantation [facility] [address] [place], [place] [address] [place] [address] [address] Oneil email: [email or web address] Deborah Parker MD, [facility] director bioinformatics Director, Liver Transplantation and Hepatobiliary Surgery Post-Operative [...] (follow the directions). PLEASE CALL OUR OFFICE [phone] WITH ANY QUESTIONS OR CONCERNS Mon-Fri 9AM-5PM. [...] 0659 11/10/16 07 - 11/11/16 0659 Shift 3230-5171 8417-5178 8939-8336 24 Hour Total 7413-6228 4407-7196 5474-8964 24 Hour Total I N T A K E P.O. 702 507 6912 P.O. 810 322 5786 I.V. (mL/kg) 236 (3.6) 236 (3.6) I.V. 236 236 Shift Total (mL/kg) 956 (14.6) 720 (11) 1676 (25.7) O U T P U T Urine (mL/kg/hr) 650 (1.2) 725 (1.4) 1300 2675 Urine 138 870 5740 2125 Output (mL) ([REMOVED] IUC (Graham) Double-lumen;Non-latex;Straight-tip [...] FRANKLYN PATEL MD General Surgery Resident Pager: [phone] 11/10/2016 Cosigned by Ermelinda Arrington MD at [...] Anesthesiology PGY-3 Inpatient Pain Service Pager # [phone] * Nilam Robertson MD - 11/09/2016 7:36 [...] 0659 11/09/16 07 - 11/10/16 0659 Shift 3858-1083 7907-5446 2071-6565 24 Hour Total 8673-4823 5625-3327 5680-1041 24 Hour Total I N T A K E P.O. 480 360 120 960 P.O. 480 360 120 960 I.V. (mL/kg) 893.2 (13.7) 575.6 (8.8) 731.6 (11.2) 2200.4 (33.7) I.V. 821 461 699 1782 Amt Infused (mL) (bupivacaine (MARCAINE) 0.0625%/HYDROmorphone (DILAUDID) 0.002% in sodium chloride0.9% 250mL epidural) 72.2 38.6 49.6 160.4 Shift Total (mL/kg) 1373.2 (21) 935.6 (14.3) 851.6 (13) 3160.4 (48.4) O U T P U T Urine (mL/kg/hr) 225 (0.4) 1100 (2.1) 400 (0.8) 1725 (1.1) Output (mL) (IUC (Graham) Double-lumen;Non-latex;Straight-tip 16 Fr.) 225 0200 200 5736 Shift Total (mL/kg) 225 (3.4) 1100 (16.8) [...] Nilam Robertson MD General Surgery Resident Pager: [phone] 11/09/2016 Cosigned by Ermelinda Arrington MD at [...] 0659 11/08/16 07 - 11/09/16 0659 Shift 9379-3346 2471-7415 6776-9359 24 Hour Total 8791-1123 1235-2507 0512-6540 24 Hour Total I N T A [...] 1000 1000 Volume (mL) (lactated Ringers infusion) 7137 726 5460 Shift Total (mL/kg) 1000 (15.3) 1942.7 (29.7) [...] ESSENCE YOUNGBLOOD MD General Surgery Resident Pager: [phone] 11/08/2016 Cosigned by Deborah Parker MD at [...] the surgery is delayed until this afternoon. Research Subject asked Dr. Parker if patient could have [...] Lynch MD - 11/07/2016 4:15 PM EDT [facility] OPERATIVE REPORT PATIENT: Gardenia Childress CSN: [id number] DATE OF OPERATION: 11/08/2016 ATTENDING SURGEON: Deborah [...] I was present for the entire procedure. [facility] OPERATIVE REPORT ?? PATIENT: Gardenia Childress CSN: [id number] DATE OF OPERATION: 11/07/2016 ATTENDING SURGEON: Deborah [...] Surgeon(s): Deborah Parker MD Anesthesia: General Staff: Thickener Operator: Eric Costa RN; Ruben Potter RN Relief Thickener Operator: Mya Sanches RN Relief Scrub: Mya Sanches RN Scrub Person: Елена Cevallos CST Resident: Migue Lynch MD Estimated Blood Loss: Minimal Specimens: * No specimens in log * Drains: IUC (Graham) Double-lumen;Non-latex;Straight-tip 16 Fr. (Active) Status [place] [facility] 11/07/2016 3:35 PM Collection Container Standard [...] after procedure: 100% Staffing Anesthesiologist: THUAN BARBOZA Resident/OFFBEARER SEWER PIPE: VJ ROJAS Performed by: residents Additional Notes [...] Notes * Care Coordination - CLARE Wray, MARRIAGE THERAPIST - 11/08/2016 11:42 AM EDT [facility] Care Management Department High Risk Screen Name: Gardenia Childress Date: 11/08/2016 High Risk Screen Patient admitted from senior living, senior care or rehab facility: No Patient is over [...] and meets Low Risk indicators. Please call Director Stars if needs arise. (Score 0-1) BREANNA SPARKS [facility] [phone] * Care Coordination - CLARE Wray LSW - 11/08/2016 11:37 AM EDT Sw: Patient expected discharge date of 11/10 vs. 11/11. No Sw needs expected at this time. Breanna SPARKS [facility] [phone] * Post Briefing - Ruben Potter RN [...] - 1.30 mg/dL 11/10/2016 8:48 AM EDT [facility] Glucose 82 70 - 100 mg/dL 11/10/2016 8:48 AM EDT [facility] Calcium 8.6 8.6 - 10.3 mg/dL 11/10/2016 8:48 AM EDT [facility] Phosphorus 3.2 2.1 - 4.7 mg/dL 11/10/2016 8:48 AM EDT [facility] Albumin 3.1(L) 3.5 - 5.7 g/dL 11/10/2016 8:48 AM EDT [facility] Osmolality, Calculated 287 278 - 305 mOsm/kg 11/10/2016 8:48 AM EDT [facility] eGFR AA CKD-EPI >90 See note. 7 8:48 AM EDT [facility] eGFR NONAA CKD-EPI >90 See note. 11/10/2016 8:48 AM EDT [facility] Plasma specimen (specimen) 11/10/2016 7:37 AM EDT 11/10/2016 8:16 AM EDT Narrative [facility] - 11/10/2016 8:48 AM EDT As [...] equation to estimate glomerular filtration rate. ??Alexa Curriculum Supervisor Med. 2009:150(9):604-12 us Migue Lynch MD LAB BLOOD ORDERABLES Final Resul t [facility] [address] [id number], [facility] * (ABNORMAL) CBC (11/10/2016 7:37 AM EDT) WBC 7.5 3.8 - 10.8 10E3/uL 11/10/2016 8:24 AM EDT [facility] RBC 3.16(L) 3.80 - 5.10 10E6/uL 11/10/2016 8:24 AM EDT [facility] Hemoglobin 9.0(L) 11.7 - 15.5 g/dL 11/10/2016 8:24 AM EDT [facility] Hematocrit 26.7(L) 35.0 - 45.0 % 11/10/2016 8:24 AM EDT [facility] MCV 84.4 80.0 - 100.0 fL 11/10/2016 8:24 AM EDT [facility] MCH 28.3 27.0 - 33.0 pg 11/10/2016 8:24 AM EDT [facility] MCHC 33.6 32.0 - 36.0 g/dL 11/10/2016 8:24 AM EDT [facility] RDW 13.6 11.0 - 15.0 % 11/10/2016 8:24 AM EDT [facility] Platelets 211 140 - 400 10E3/uL 11/10/2016 8:24 AM EDT [facility] MPV 7.6 7.5 - 11.5 fL 11/10/2016 8:24 AM EDT [facility] Whole blood specimen (specimen) 11/10/2016 7:37 AM EDT 11/10/2016 8:17 AM EDT us Migue Lynch MD LAB BLOOD ORDERABLES Final Resul t Performing Organization Address [facility]/ZIP Co de Phone Number [facility] [address] * Phosphorus (11/08/2016 3:57 AM EDT) Phosphorus 3.6 2.1 - 4.7 mg/dL 11/08/2016 5:06 AM EDT [facility] Plasma specimen (specimen) 11/08/2016 3:57 AM EDT 11/08/2016 4:38 AM EDT us Migue Lynch MD LAB BLOOD ORDERABLES Final Resul t Performing Organization Address City/[facility] Co de Phone Number [facility] [address] * Magnesium (11/08/2016 3:57 AM EDT) Magnesium 1.8 1.5 - 2.5 mg/dL 11/08/2016 5:06 AM EDT [facility] Plasma specimen (specimen) 11/08/2016 3:57 AM EDT 11/08/2016 4:38 AM EDT us Migue Lynch MD LAB BLOOD ORDERABLES Final Resul t [facility] [address] [place] [id number] * (ABNORMAL) Basic metabolic panel (11/08/2016 3:57 AM EDT) Sodium 139 133 - 146 mmol/L 11/08/2016 5:06 AM EDT [facility] Potassium 4.0 3.5 - 5.3 mmol/L 11/08/2016 5:06 AM EDT [facility] Chloride 110 98 - 110 mmol/L 11/08/2016 5:06 AM EDT [facility] CO2 22 21 - 33 mmol/L 11/08/2016 5:06 AM EDT [facility] Anion Gap 7 3 - 16 mmol/L 11/08/2016 5:06 AM EDT [facility] BUN 8 7 - 25 mg/dL 11/08/2016 5:06 AM EDT [facility] Creatinine 0.67 0.60 - 1.30 mg/dL 11/08/2016 5:06 AM EDT [facility] Glucose 89 70 - 100 mg/dL 11/08/2016 5:06 AM EDT [facility] Calcium 8.0(L) 8.6 - 10.3 mg/dL 11/08/2016 5:06 AM EDT [facility] Osmolality, Calculated 286 278 - 305 mOsm/kg 11/08/2016 5:06 AM EDT [facility] eGFR AA CKD-EPI >90 See note. 7 5:06 AM EDT [facility] eGFR NONAA CKD-EPI >90 See note. 11/08/2016 5:06 AM EDT [facility] Plasma specimen (specimen) 11/08/2016 3:57 AM EDT 11/08/2016 4:38 AM EDT Narrative [facility] - 11/08/2016 5:06 AM EDT As [...] equation to estimate glomerular filtration rate. ??Alexa Curriculum Supervisor Med. 2009:150(9):604-12 Migue Lynch MD LAB BLOOD ORDERABLES Final Resul t [facility] [address] [place] [address], [facility] * (ABNORMAL) CBC (11/08/2016 3:57 AM EDT) WBC 12.6(H) 3.8 - 10.8 10E3/uL 11/08/2016 4:44 AM EDT [facility] RBC 3.57(L) 3.80 - 5.10 10E6/uL 11/08/2016 4:44 AM EDT [facility] Hemoglobin 10.1(L) 11.7 - 15.5 g/dL 11/08/2016 4:44 AM EDT [facility] Hematocrit 30.3(L) 35.0 - 45.0 % 11/08/2016 4:44 AM EDT [facility] MCV 85.0 80.0 - 100.0 fL 11/08/2016 4:44 AM EDT [facility] MCH 28.4 27.0 - 33.0 pg 11/08/2016 4:44 AM EDT [facility] MCHC 33.4 32.0 - 36.0 g/dL 11/08/2016 4:44 AM EDT [facility] RDW 13.4 11.0 - 15.0 % 11/08/2016 4:44 AM EDT [facility] Platelets 271 140 - 400 10E3/uL 11/08/2016 4:44 AM EDT [facility] MPV 8.2 7.5 - 11.5 fL 11/08/2016 4:44 AM EDT [facility] Whole blood specimen (specimen) 11/08/2016 3:57 AM EDT 11/08/2016 4:38 AM EDT us Migue Lynch MD LAB BLOOD ORDERABLES Final Resul t [facility] [address] [place] [address], [facility] * ANESTHESIA EPIDURAL PLACEMENT (SMARTFORM) (11/07/2016 11:58 [...] after procedure: ??100% Staffing Anesthesiologist: THUAN BARBOZA Resident/OFFBEARER SEWER PIPE: VJ ROJAS Performed by: residents Additional Notes [...] Ur Negative Negative 11/07/2016 6:51 AM EDT [facility] Urine specimen (specimen) 11/07/2016 6:50 AM EDT 11/07/2016 6:51 AM EDT us Deborah Parker MD POINT OF CARE TEST ORDERABLES F inal Result [facility] [address] [address], [facility] documented in this encounter Visit Diagnoses [...] (TYLENOL) tablet 975 mg 975 mg, Oral, calliope player to O.R., Give 1 hour pre-op, Starting [...] RN) 0920 (Given - Provider: Dejuan Denney RN)2207 (Given - Provider: Tanya Copeland RN) 0840 [...] Dejuan Denney RN)1803 (Given - Provider: Dejuan Denney RN) oxyCODONE (ROXICODONE) immediate release tablet 5 mg (CANCELED)(Linked Group 3) 5 mg, Oral, Every 4 hours PRN, moderate pain (NRS-4-6), Starting on Fri11/08/16 at 0733 0605 (Given - Provider: Ronel Wilson, IVETTE)0920 (See Alternative - Provider: Dejuan Denney RN)1343 [...] Saline documented in this encounter Care Teams Centerless Grinder Set Up Operator Relationship Specialty Start Date End Date Marlo Rubio MD PCP - General Family Medicine 10/09/16 documented as of this encounter
--- OUTSIDE RECORDS SUMMARY | 2024-03-15 10:05 | XMS_ITS | Encounter Summary ---
Author Organization [facility] Address [address] [place] [address] Care Team Providers Care Retail Business Development Manager Name Role Phone Marlo Rubio MD [...] release of HIV test results or diagnoses. [id number] Health Reason for Visit * Reason Comments Follow-up biliary atresia/sten osis follow up CT Encounter Details Date Type Department Care Team (Late st Contact Info) Description 10/23/2016 9:30 AM EDT Office Visit [facility] Transplant Surgery at [facility] [address] [facility] 7[address] [place] [address] Deborah Parker MD 7050 [facility] 3[address] [place] [address] Generalized abdominal pain (Primary Dx) [...] medical decision making: Discussion of care with oracle wms consultant Assessment: 36yo woman with 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 We discussed the risks and benefits of surgery. She would need an open approach and division of themedian ligament and rastafari of normal flow. 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 Consent not signed. Will do day [...] generalized documented in this encounter Care Teams Retail Business Development Manager Relationship Specialty Start Date End Date Marlo Rubio MD PCP - General Family Medicine 10/09/16 documented as of this encounter
--- OUTSIDE RECORDS SUMMARY | 2024-03-15 10:05 | XMS_ITS | Encounter Summary ---
Author Organization [facility] Address [address] [place] [address] Care Team Providers Care Parts Room Clerk Name Role Phone Marlo Rubio MD [...] release of HIV test results or diagnoses. [id number] Health Encounter Details Date Type Department Care Team (Late st Contact Info) Description 10/09/2016 Orders Only [facility] Transplant Surgery at [facility] 222 [facility] [address] [place], [place] [phone] Deborah Parker MD 3[address] [facility] [address] [place] [phone] Generalized abdominal pain (Primary Dx) Social History [...] generalized documented in this encounter Care Teams Parts Room Clerk Relationship Specialty Start Date End Date Marlo Rubio MD PCP - General Family Medicine 10/09/16 documented as of this encounter
--- OUTSIDE RECORDS SUMMARY | 2024-03-15 10:05 | XMS_ITS | Encounter Summary ---
Author Organization [facility] Address [address] [place] [address] Care Team Providers Care Sole Cutter Name Role Phone Marlo Rubio MD Primary [...] release of HIV test results or diagnoses. [id number] Reason for Referral * Physician/LUCERO (Routine) - Closed Specialty Diagnoses / Procedures Referred By Contact Referred To Contact Pre-Admission Testing Diagnoses Generalized abdominal pain Celiac artery stenosis ([facility]) Deborah Parker MD 222 [facility] [address] [place] [phone] Phone: tel: fax: [facility] Perioperative Care at [address] [phone] Phone: tel: fax: Referral ID Status Reason Start Date Expiration Date Visits Re quested Visits Authorized [id number] Closed 10/24/2016 04/22/2017 1 1 * Surgical (Routine) - Closed Specialty Diagnoses / Procedures Referred By Contac t Referred To Contact Surgery Diagnoses Generalized abdominal pain Celiac artery stenosis (CMS-HCC) Procedures Case request operating room: Exploratory Laparotomy, Median Arcuate Ligament Division MD DIAPHRAGM SURG PROC UNLISTED MD REVISION OF DIAPHRAGM MD RESECT DIAPHRAM,SIMPLE REPAIR Deborah Parker MD [address] [facility] [address] [place] [address] Phone: tel: fax: Referral ID Status Reason Start Date Expiration Date Visits Re quested Visits Authorized [id number] Closed 10/24/2016 10/29/2016 1 1 Encounter Details Date Type Department Care Team (Late st Contact Info) Description 10/24/2016 Orders Only [facility] Transplant Surgery at [facility] 222 [facility] 7[address] [place], [place] [phone] Deborah Parker MD 3130 [facility] [address] [place] [address] Generalized abdominal pain (Primary Dx); [...] Name Type Priority Associated Diagnoses Order Schedule A AND P TECHNICIAN Visit with Anesthesiologist (C) Outpatient Referral Routine Generalized abdominal pain Celiac artery stenosis (CMS-HCC) Ordered: 10/24/2016 documented as of this encounter Results * APTT, No Anticoagulant (11/04/2016 10:38 AM EDT) aPTT 31.1 25.5 - 35.0 seconds 11/04/2016 11:08 AM EDT [facility] Plasma specimen (specimen) 11/04/2016 10:38 AM EDT 11/04/2016 10:49 AM EDT Deborah Parker MD LAB BLOOD ORDERABLES Final Resu lt Performing Organization Address [facility] de Phone Number [facility] [address] [facility]. [address] * Protime-INR (11/04/2016 10:38 AM EDT) Protime 13.8 11.6 - 14.4 seconds 11/04/2016 11:07 AM EDT [facility] INR 1.0 0.9 - 1.1 11/04/2016 11:07 AM EDT [facility] Comment: RECOMMENDED THERAPEUTIC RANGES USING INR : ?Stable oral anticoagulant therapy: ? 2.0 - 3.0 ?Mechanical prosthetic heart valve: ? 2.5 - 3.5 ?Recurrent acute myocardial infarction: ? 2.5 - 3.5 Plasma specimen (specimen) 11/04/2016 10:38 AM EDT 11/04/2016 10:49 AM EDT Deborah Parker MD LAB BLOOD ORDERABLES Final Resu lt Performing Organization Address [facility] de Phone Number [facility] [address] [facility]. [address] * Differential (11/04/2016 10:38 AM EDT) Neutrophils Relative 58.8 40.0 - 80.0 % 11/04/2016 10:57 AM EDT [facility] Lymphocytes Relative 28.2 15.0 - 45.0 % 11/04/2016 10:57 AM EDT [facility] Monocytes Relative 6.8 0.0 - 12.0 % 11/04/2016 10:57 AM EDT [facility] Eosinophils Relative 5.8 0.0 - 8.0 % 11/04/2016 10:57 AM EDT [facility] Basophils Relative 0.4 0.0 - 1.0 % 11/04/2016 10:57 AM EDT [facility] nRBC 0 0 - 0 /100 WBC 11/04/2016 10:57 AM EDT [facility] Neutrophils Absolute 3,940 1,500 - 7,800 /uL 11/04/2016 10:57 AM EDT [facility] Lymphocytes Absolute 1,889 850 - 3,900 /uL 11/04/2016 10:57 AM EDT [facility] Monocytes Absolute 456 200 - 950 /uL 11/04/2016 10:57 AM EDT [facility] Eosinophils Absolute 389 15 - 500 /uL 11/04/2016 10:57 AM EDT [facility] Basophils Absolute 27 0 - 200 /uL 11/04/2016 10:57 AM EDT [facility] Whole blood specimen (specimen) 11/04/2016 10:38 AM EDT 11/04/2016 10:49 AM EDT us Deborah Parker MD LAB BLOOD ORDERABLES Final Resu lt [facility] [address] [place] [address], [facility] * (ABNORMAL) CBC (11/04/2016 10:38 AM EDT) WBC 6.7 3.8 - 10.8 10E3/uL 11/04/2016 10:57 AM EDT [facility] RBC 4.18 3.80 - 5.10 10E6/uL 11/04/2016 10:57 AM EDT [facility] Hemoglobin 12.1 11.7 - 15.5 g/dL 11/04/2016 10:57 AM EDT [facility] Hematocrit 34.9(L) 35.0 - 45.0 % 11/04/2016 10:57 AM EDT [facility] MCV 83.5 80.0 - 100.0 fL 11/04/2016 10:57 AM EDT [facility] MCH 29.0 27.0 - 33.0 pg 11/04/2016 10:57 AM EDT [facility] MCHC 34.7 32.0 - 36.0 g/dL 11/04/2016 10:57 AM EDT [facility] RDW 13.6 11.0 - 15.0 % 11/04/2016 10:57 AM EDT [facility] Platelets 331 140 - 400 10E3/uL 11/04/2016 10:57 AM EDT [facility] MPV 7.6 7.5 - 11.5 fL 11/04/2016 10:57 AM EDT [facility] Whole blood specimen (specimen) 11/04/2016 10:38 AM EDT 11/04/2016 10:49 AM EDT us Deborah Parker MD LAB BLOOD ORDERABLES Final Resu lt Performing Organization Address [facility] Co de Phone Number [facility] [address] [place] [address] * Antibody screen (11/04/2016 10:38 AM EDT) Antibody Screen Negative 11/04/2016 1:20 PM EDT [facility] Blood specimen (specimen) 11/04/2016 10:38 AM EDT 11/04/2016 10:56 AM EDT Narrative [facility] - 11/04/2016 1:25 PM EDT Testing performed by [facility] Transfusion Service us Deborah Parker MD BLOOD BANK TEST ORDERABLES Antonia l Result Performing Organization Address [facility] Co de Phone Number [facility] [address] [place] [address]. [address] * ABO/Rh (11/04/2016 10:38 AM EDT) ABO Grouping O 11/04/2016 1:20 PM EDT [facility] Rh Type Positive 11/04/2016 1:20 PM EDT [facility] Blood specimen (specimen) 11/04/2016 10:38 AM EDT 11/04/2016 10:56 AM EDT us Deborah Parker MD BLOOD BANK TEST ORDERABLES Antonia l Result Performing Organization Address [facility]/ZIP Co de Phone Number [facility] [address] [place] [id number], [facility] * (ABNORMAL) Renal Function Panel w/EGFR (11/04/2016 10:38 AM EDT) Sodium 142 133 - 146 mmol/L 11/04/2016 11:20 AM EDT [facility] Potassium 3.8 3.5 - 5.3 mmol/L 11/04/2016 11:20 AM EDT [facility] Chloride 111(H) 98 - 110 mmol/L 11/04/2016 11:20 AM EDT [facility] CO2 24 21 - 33 mmol/L 11/04/2016 11:20 AM EDT [facility] Anion Gap 7 3 - 16 mmol/L 11/04/2016 11:20 AM EDT [facility] BUN 8 7 - 25 mg/dL 11/04/2016 11:20 AM EDT [facility] Creatinine 0.73 0.60 - 1.30 mg/dL 11/04/2016 11:20 AM EDT [facility] Glucose 71 70 - 100 mg/dL 11/04/2016 11:20 AM EDT [facility] Calcium 9.0 8.6 - 10.3 mg/dL 11/04/2016 11:20 AM EDT [facility] Phosphorus 3.4 2.1 - 4.7 mg/dL 11/04/2016 11:20 AM EDT [facility] Albumin 3.8 3.5 - 5.7 g/dL 11/04/2016 11:20 AM EDT [facility] Osmolality, Calculated 291 278 - 305 mOsm/kg 11/04/2016 11:20 AM EDT [facility] eGFR AA CKD-EPI >90 See note. 7 11:20 AM EDT [facility] eGFR NONAA CKD-EPI >90 See note. 11/04/2016 11:20 AM EDT [facility] Plasma specimen (specimen) 11/04/2016 10:38 AM EDT 11/04/2016 10:49 AM EDT Narrative [facility] - 11/04/2016 11:20 AM EDT [...] equation to estimate glomerular filtration rate. ??Alexa Rework Machine Operator Med. 2009:150(9):604-12 us Deborah Parker MD LAB BLOOD ORDERABLES Final Resu lt Performing Organization Address City/[facility]/ZIP Co de Phone Number [facility] [address] [facility]. [address] * Hepatic Function Panel (11/04/2016 10:38 AM EDT) Total Bilirubin 0.3 0.0 - 1.5 mg/dL 11/04/2016 11:20 AM EDT [facility] Bilirubin, Direct 0.04 0.00 - 0.40 mg/dL 11/04/2016 11:20 AM EDT [facility] AST 14 13 - 39 U/L 11/04/2016 11:20 AM EDT [facility] ALT 10 7 - 52 U/L 11/04/2016 11:20 AM EDT [facility] Alkaline Phosphatase 59 36 - 125 U/L 11/04/2016 11:20 AM EDT [facility] Total Protein 6.8 6.4 - 8.9 g/dL 11/04/2016 11:20 AM EDT [facility] Albumin 3.8 3.5 - 5.7 g/dL 11/04/2016 11:20 AM EDT [facility] Bilirubin, Indirect 0.26 0.00 - 1.10 mg/dL 11/04/2016 11:20 AM EDT [facility] Plasma specimen (specimen) 11/04/2016 10:38 AM EDT 11/04/2016 10:49 AM EDT us Deborah Parker MD LAB BLOOD ORDERABLES Final Resu lt Performing Organization Address City/[facility]/ZIP Co de Phone Number [facility] [address] [facility]. 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
--- OUTSIDE RECORDS SUMMARY | 2024-03-15 10:05 | XMS_ITS | Encounter Summary ---
Author Organization [facility] Address [address] [place] [address] Care Team Providers Care Senior Gamemaster Name Role Phone Marlo Rubio MD Primary [...] release of HIV test results or diagnoses. [id number] Health Reason for Visit * Reason Comments Medication Refill Encounter Details Date Type Department Care Team (Late st Contact Info) Description 11/22/2016 Telephone [facility] Hepatobiliary at [address] [address] Aaron Rocha MD [address] [place] [phone] Medication Refill Social History Tobacco Use [...] as of this encounter Care Teams Senior Gamemaster Relationship Specialty Start Date End Date Marlo Rubio MD PCP - General Family Medicine 10/09/16 documented as of this encounter
--- OUTSIDE RECORDS SUMMARY | 2024-03-15 10:05 | XMS_ITS | Encounter Summary ---
Author Organization [facility] Address [address] [place] [address] Care Team Providers Care Perinatal Director Name Role Phone Marlo Rubio MD Primary [...] release of HIV test results or diagnoses. 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 H/O pancreatitis. No recent imaging or medical care. Older imaging/MR @ ([facility]) Encounter Details Date Type Department Care Team (Late st Contact Info) Description 10/09/2016 10:00 AM EDT Office Visit [facility] Transplant Surgery at [facility] [address] [facility] [address] [place], [place] [phone] Deborah Parker MD 3130 [facility] [address] [place] [address] Biliary stricture (Primary Dx) Social [...] imaging or medical care. Older imaging/MR @ ([facility]) Ishan Childress is a 36 y.o. 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 She has had no imaging. Appt to see Dr. Rocha in Nov. Labs are normal. She looks well. Plan: 1. Biphasic CT scan. 2. Appt with Dr. Rocha. 3.No role for surgery at this time. We spent 60 minutes today with the patient and more than 50% was [id number]-fe-tvpy contact counseling and coordinating care. The visit [...] lytic or blastic bone lesions. Procedure Note Yolanda Tipton MD - 10/14/2016 Exam: CT ANGIOGRAPHY [...] duct documented in this encounter Care Teams Perinatal Director Relationship Specialty Start Date End Date Marlo Rubio MD PCP - General Family Medicine 10/09/16 documented as of this encounter
--- OUTSIDE RECORDS SUMMARY | 2024-03-15 10:05 | XMS_ITS | Encounter Summary ---
Author Organization [facility] Address [address] [place] [address] Care Team Providers Care Personal Financial Representative Name Role Phone Marlo Rubio MD Primary [...] release of HIV test results or diagnoses. [id number] Reason for Visit * Auth/Cert Specialty Diagnoses / Procedures Referred By Amalia tuttle Referred To Contact Radiology [facility] [address] [place] [address] Phone: tel: Referral ID Status Reason Start Date Expiration Date Visits Re quested Visits Authorized [id number] 1 1 Encounter Details Date Type Department Care Team (Late st Contact Info) Description 10/14/2016 8:11 AM EDT - 10/14/2016 11:59 PM EDT Hospital Encounter [facility] [address] [place] [address] Kushal Telles MD [address] [place] [facility] [address] Surgery [place] [address] Discharge Disposition: Home or Self [...] mLs documented in this encounter Care Teams Personal Financial Representative Relationship Specialty Start Date End Date Marlo Rubio MD PCP - General Family Medicine 10/09/16 documented as of this encounter
--- OUTSIDE RECORDS SUMMARY | 2024-03-15 10:05 | XMS_ITS | Encounter Summary ---
Author Organization [facility] Address [address] [place] [address] Care Team Providers Care Cyber Security Engineer Name Role Phone Marlo Rubio MD Primary [...] release of HIV test results or diagnoses. [id number] Encounter Details Date Type Department Care Team (Late st Contact Info) Description 11/20/2016 Telephone [facility] [address] [place] [phone] Nilda Sullivan MSW, LISW Social History Tobacco [...] voicemail requesting a returned call. PEDRO HAZEL [phone] documented in this encounter Plan of Treatment Not on file documented as of this encounter Visit Diagnoses Not on filedocumented in this encounter Additional Health Concerns Assessment Noted Time PHQ-9 Depression Total Score: 10 017 8:00 AM EDT documented as of this encounter Care Teams Cyber Security Engineer Relationship Specialty Start Date End Date Marlo Rubio MD PCP - General Family Medicine 10/09/16 documented as of this encounter
--- OUTSIDE RECORDS SUMMARY | 2024-03-15 10:05 | XMS_ITS | Encounter Summary ---
Author Organization [facility] Address [address] [place] [address] Care Team Providers Care Food Service Worker Hospital Name Role Phone Marlo Rubio MD Primary [...] release of HIV test results or diagnoses. [id number] Encounter Details Date Type Department Care Team (Latest Contact Info) Description 10/31/2016 3:02 PM EDT - 10/31/2016 11:59 PM EDT Hospital Encounter [facility] Radiology [address] [place] [phone] Guerita Wilson MD [address] [place] [phone] Discharge Disposition: Home or Self Care WITHOUT [...] Harding MD at 10/31/2016 3:52 PM EDT us Guerita Wilson MD IMG DIAGNOSTIC IMAGING ORDER CON Final Result documented in this encounter Visit Diagnoses Not on filedocumented in this encounter Care Teams Food Service Worker Hospital Relationship Specialty Start Date End Date Marlo Rubio MD PCP - General Family Medicine 10/09/16 documented as of this encounter
--- OUTSIDE RECORDS SUMMARY | 2024-03-15 10:05 | XMS_ITS | Encounter Summary ---
Author Organization [facility] Address [address] [place] [address] Care Team Providers Care Television Production Technician Name Role Phone Marlo Rubio MD Primary Care Provider Fatmata htuchison Source Comments This information has been disclosed [...] release of HIV test results or diagnoses. [id number] Reason for Visit * Reason Comments New Patient Visit/ Consultation Encounter Details Date Type Department Care Team (Late st Contact Info) Description 11/20/2016 8:30 AM EDT Office Visit [facility] Hepatobiliary at [address] [phone] Aaron Rocha MD [address] [place] [phone] Dyspepsia (Primary Dx); Abdominal pain, unspecified [...] - 212 ug/dL 11/20/2016 9:57 AM EDT [facility] Comment:HEMOLYSIS EVIDENT. R ESULTS MAY BE INFLUENCED. % Iron Saturation 12.6(L) 15.0 - 55.0 % 11/20/2016 9:57 AM EDT [facility] TIBC 358 265 - 497 ug/dL 11/20/2016 9:57 AM EDT [facility] Serum specimen (specimen) 11/20/2016 9:05 AM EDT 11/20/2016 9:28 AM EDT Arias Quiñonez MD LAB BLOOD ORDERABLES Final Resu lt [facility] [address] * Vitamin B12 (11/20/2016 9:05 AM EDT) Vitamin B-12 372 180 - 914 pg/mL 11/20/2016 10:20 AM EDT [facility] Serum specimen (specimen) 11/20/2016 9:05 AM EDT 11/20/2016 9:28 AM EDT Arias Quiñonez MD LAB BLOOD ORDERABLES Final Resu lt [facility] [address] * Ferritin (11/20/2016 9:05 AM EDT) Ferritin 40.7 11.0 - 306.8 ng/mL 11/20/2016 10:15 AM EDT [facility] Serum specimen (specimen) 11/20/2016 9:05 AM EDT 11/20/2016 9:28 AM EDT us Arias Quiñonez MD LAB BLOOD ORDERABLES Final Resu lt [facility] [address] documented in this encounter Visit Diagnoses Diagnosis Dyspepsia- Primary Dyspepsia and other specified disorders of function of stomach Abdominal pain, unspecified location documented in this encounter Additional Health Concerns Assessment Noted Time PHQ-9 Depression Total Score: 10 017 8:00 AM EDT documented as of this encounter Care Teams Television Production Technician Relationship Specialty Start Date End Date Marlo Rubio MD PCP - General Family Medicine 10/09/16 documented as of this encounter
--- OUTSIDE RECORDS SUMMARY | 2024-03-15 10:05 | XMS_ITS | Encounter Summary ---
Author Organization [facility] Address [address] [place] [address] Care Team Providers Care Quantitative Equity Head Name Role Phone Marlo Rubio MD Primary [...] release of HIV test results or diagnoses. [id number] Health Reason for Visit * Auth/Cert Specialty Diagnoses / Procedures Referred By Amalia tuttle Referred To Contact Diagnoses Generalized abdominal pain Celiac artery stenosis (CMS-HCC) SDA 11/07 Generalized abdominal pain [R10.84] Celiac artery stenosis [I77.4] Procedures CASE REQUEST OPERATING ROOM [place] DIAPHRAGM SURG PROC UNLISTED [place] REVISION OF DIAPHRAGM [place] RESECT DIAPHRAM,SIMPLE REPAIR EXPLORATORY LAPAROTOMY [facility] [address] [place] [address] Phone: tel: Referral ID Status Reason Start Date Expiration Date Visits Re quested Visits Authorized [id number] 1 1 Encounter Details Date Type Department Care Team (Late st Contact Info) Description 11/07/2016 1:57 PM EDT - 11/07/2016 6:57 PM EDT Surgery [facility] [address] [place] [address] Deborah Parker MD [address] [facility] [address] [place] [phone] Exploratory Laparotomy, Median Arcuate Ligament Division, Celiac [...] from the original note were not included. [facility] Department of Surgery Inpatient Discharge Summary Patient: Gardenia Childress : 1980 [facility]: [id number] Date of Admission: 11/07/2016 Date of Discharge: [...] Case IDs Date Procedure Surgeon Location Status [id number] 11/07/16 Exploratory Laparotomy, Median Arcuate Ligament Division Deborah Parker MD OR [facility] CONSULTING SERVICES 1. None DISCHARGE MEDICATIONS [...] Center 11/20/2016 8:30 [address] [facility] 11/20/2016 11:30 AM Deborah Parker MD [facility] PATIENT INSTRUCTIONS Activity: activity as tolerated Diet: regular diet Wound Care: keep wound clean and dry Department of Surgery Division of Transplantation [facility] [address] [place], [place] [address] [place] [address] [address] email: [email or web address] Deborah Parker MDSUMIT map maker Director, Liver Transplantation and Hepatobiliary Surgery Post-Operative [...] (follow the directions). PLEASE CALL OUR OFFICE [phone] WITH ANY QUESTIONS OR CONCERNS Mon-Fri 9AM-5PM. Follow-up Appointment: 11/20/16 @ 11:30 AM (please arrive at 11:00 AM), on the 7th floor of the [facility] with Dr. Parker. FRANKLYN PATEL MD 11/10/2016 Cosigned by Ermelinda Arrington MD at 11/10/2016 5:32 PM EDT documented in this encounter Discharge Instructions * Discharge Instructions* Jessica Haq CNP - 11/08/2016 3:32 PM EDT Images from the original note were not included. Department of Surgery Division of Transplantation [facility] [address] [place], [place] [address] [facility] [address] email: [email or web address] Deborah Parker MD, [facility] map maker Director, Liver Transplantation and Hepatobiliary Surgery Post-Operative [...] (follow the directions). PLEASE CALL OUR OFFICE [phone] WITH ANY QUESTIONS OR CONCERNS Mon-Fri 9AM-5PM. Follow-up Appointment: 11/20/16 @ 11:30 AM (please arrive at 11:00 AM), on the 7th floor of the [facility] with Dr. Parker. documented in [...] 0659 11/10/16 07 - 11/11/16 0659 Shift 7157-1471 5332-0648 7984-0213 24 Hour Total 0976-7170 8652-8335 4594-0723 24 Hour Total I N T A K E P.O. 858 716 6557 P.O. 645 400 8950 I.V. (mL/kg) 236 (3.6) 236 (3.6) I.V. 236 236 Shift Total (mL/kg) 956 (14.6) 720 (11) 1676 (25.7) O U T P U T Urine (mL/kg/hr) 650 (1.2) 725 (1.4) 1300 2675 Urine 802 761 8828 2125 Output (mL) ([REMOVED] IUC (Graham) Double-lumen;Non-latex;Straight-tip [...] FRANKLYN PATEL MD General Surgery Resident Pager: [phone] 11/10/2016 Cosigned by Ermelinda Arrington MD at [...] Anesthesiology PGY-3 Inpatient Pain Service Pager # [phone] * Nilam Robertson MD - 11/09/2016 7:36 [...] 11/09/1659 11/09/16 07 - 11/10/16 0659 Shift 8343-2909 2205-2682 3314-8544 24 Hour Total 9231-3290 7649-7096 8511-9724 24 Hour Total I N T A K E P.O. 480 360 120 960 P.O. 480 360 120 960 I.V. (mL/kg) 893.2 (13.7) 575.6 (8.8) 731.6 (11.2) 2200.4 (33.7) I.V. 821 346 816 8280 Amt Infused (mL) (bupivacaine (MARCAINE) 0.0625%/HYDROmorphone (DILAUDID) 0.002% in sodium chloride0.9% 250mL epidural) 72.2 38.6 49.6 160.4 Shift Total (mL/kg) 1373.2 (21) 935.6 (14.3) 851.6 (13) 3160.4 (48.4) O U T P U T Urine (mL/kg/hr) 225 (0.4) 1100 (2.1) 400 (0.8) 1725 (1.1) Output (mL) (IUC (Graham) Double-lumen;Non-latex;Straight-tip 16 Fr.) 225 6601 610 9180 Shift Total (mL/kg) 225 (3.4) 1100 (16.8) [...] Nilam Robertson MD General Surgery Resident Pager: [phone] 11/09/2016 Cosigned by Ermelinda Arrington MD at [...] 0659 11/08/16 07 - 11/09/16 0659 Shift 7987-2307 8616-1404 6571-2746 24 Hour Total 6528-8202 1426-9001 6784-8274 24 Hour Total I N T A [...] 1000 1000 Volume (mL) (lactated Ringers infusion) 7293 617 4918 Shift Total (mL/kg) 1000 (15.3) 1942.7 (29.7) [...] ESSENCE YOUNGBLOOD MD General Surgery Resident Pager: [phone] 11/08/2016 Cosigned by Deborah Parker MD at [...] the surgery is delayed until this afternoon. Gin Inspector asked Dr. Parker if patient could have [...] Lynch MD - 11/07/2016 4:15 PM EDT [facility] OPERATIVE REPORT PATIENT: Gardenia Childress CSN: [id number] DATE OF OPERATION: 11/08/2016 ATTENDING SURGEON: Deborah [...] present for the entire procedure. * Jayne Overton - 11/07/2016 4:15 PM EDT AMENDMENT - DEMOGRAPHIC REVISION(DOS) - 11/15/16 - akg Original Author: MD Migue Torres MD Resident Attested Transplant Surgery Op Note 11/07/2016 ??4:15 PM Attestation signed by Deborah Parker MD at 11/11/2016 7:48 AM I was present for the entire procedure. [facility] OPERATIVE REPORT ?? PATIENT: Gardenia Childress CSN: [id number] DATE OF OPERATION: 11/07/2016 ATTENDING SURGEON: Deborah [...] Surgeon(s): Deborah Parker MD Anesthesia: General Staff: Engineering Mgr: Eric Costa RN; Ruben Potter RN Relief Engineering Mgr: Mya Sanches RN Relief Scrub: Mya Sanches RN Scrub Person: Елена Cevallos, BUSINESS SERVICES COORDINATOR Resident: Migue Lynch MD Estimated Blood Loss: Minimal Specimens: * No specimens in log * Drains: IUC (Graham) Double-lumen;Non-latex;Straight-tip 16 Fr. (Active) Status [place] Drainage 11/07/2016 3:35 PM Collection Container Standard drainage bag 11/07/2016 3:35 PM Securement Method StatLock 11/07/2016 3:35 PM Number of days:0 There were no complications unless listed below. MIGUE LYNCH Date: 11/07/2016 Time: 6:52 PM * Eli Blanco RN - 11/07/2016 11:54 AM EDTAssociated Order(s): ANESTHESIA EPIDURAL PLACEMENT (SMARTFORM) Pre-Procedure Diagnose(s): Celiac artery stenosis (CMS-HCC) Post-Procedure Diagnose(s): Celiac artery stenosis (CMS-[facility]) Gardenia Childress is a 36 y.o. female [...] after procedure: 100% Staffing Anesthesiologist: THUAN BARBOZA Resident/ASSISTANT GM OF CONTENT & DELIVERY: VJ ROJAS Performed by: residents Additional Notes [...] 11/07/2016 1:38 PM EDT Associated attestation - Tuhan Barboza MD - 11/07/2016 1:38 PM EDT [...] TOYA - 11/08/2016 11:42 AM EDT [facility] Care Management Department High Risk Screen Name: Gardenia Childress Date: 11/08/2016 High Risk Screen Patient admitted from correction, nursing home or rehab facility: No Patient [...] and meets Low Risk indicators. Please call Call Center Associate if needs arise. (Score 0-1) [facility] [phone] * Care Coordination - CLARE Wray LSW - 11/08/2016 11:37 AM EDT Sw: Patient expected discharge date of 11/10 vs. 11/11. No Sw needs expected at this time. Breanna [facility] [phone] * Post Briefing - Ruben Potter RN [...] - 146 mmol/L 11/10/2016 8:48 AM EDT [facility] Potassium 3.6 3.5 - 5.3 mmol/L 11/10/2016 8:48 AM EDT [facility] Chloride 108 98 - 110 mmol/L 11/10/2016 8:48 AM EDT [facility] CO2 24 21 - 33 mmol/L 11/10/2016 8:48 AM EDT [facility] Anion Gap 8 3 - 16 mmol/L 11/10/2016 8:48 AM EDT [facility] BUN 6(L) 7 - 25 mg/dL 11/10/2016 8:48 AM EDT [facility] Creatinine 0.67 0.60 - 1.30 mg/dL 11/10/2016 8:48 AM EDT [facility] Glucose 82 70 - 100 mg/dL 11/10/2016 8:48 AM EDT [facility] Calcium 8.6 8.6 - 10.3 mg/dL 11/10/2016 8:48 AM EDT [facility] Phosphorus 3.2 2.1 - 4.7 mg/dL 11/10/2016 8:48 AM EDT [facility] Albumin 3.1(L) 3.5 - 5.7 g/dL 11/10/2016 8:48 AM EDT [facility] Osmolality, Calculated 287 278 - 305 mOsm/kg 11/10/2016 8:48 AM EDT [facility] eGFR AA CKD-EPI >90 See note. 7 8:48 AM EDT [facility] eGFR NONAA CKD-EPI >90 See note. 11/10/2016 8:48 AM EDT [facility] Plasma specimen (specimen) 11/10/2016 7:37 AM EDT 11/10/2016 8:16 AM EDT Narrative [facility] - 11/10/2016 8:48 AM EDT As [...] equation to estimate glomerular filtration rate. ??Alexa Windows Vmware Administrator Med. 2009:150(9):604-12 Migue Lynch MD LAB BLOOD ORDERABLES Final Resul t [facility] [address] * (ABNORMAL) CBC (11/10/2016 7:37 AM EDT) WBC 7.5 3.8 - 10.8 10E3/uL 11/10/2016 8:24 AM EDT [facility] RBC 3.16(L) 3.80 - 5.10 10E6/uL 11/10/2016 8:24 AM EDT [facility] Hemoglobin 9.0(L) 11.7 - 15.5 g/dL 11/10/2016 8:24 AM EDT [facility] Hematocrit 26.7(L) 35.0 - 45.0 % 11/10/2016 8:24 AM EDT [facility] MCV 84.4 80.0 - 100.0 fL 11/10/2016 8:24 AM EDT [facility] MCH 28.3 27.0 - 33.0 pg 11/10/2016 8:24 AM EDT [facility] MCHC 33.6 32.0 - 36.0 g/dL 11/10/2016 8:24 AM EDT [facility] RDW 13.6 11.0 - 15.0 % 11/10/2016 8:24 AM EDT [facility] Platelets 211 140 - 400 10E3/uL 11/10/2016 8:24 AM EDT [facility] MPV 7.6 7.5 - 11.5 fL 11/10/2016 8:24 AM EDT [facility] Whole blood specimen (specimen) 11/10/2016 7:37 AM EDT 11/10/2016 8:17 AM EDT Migue Lynch MD LAB BLOOD ORDERABLES Final Resul t [facility] [address] * Phosphorus (11/08/2016 3:57 AM EDT) Phosphorus 3.6 2.1 - 4.7 mg/dL 11/08/2016 5:06 AM EDT [facility] Plasma specimen (specimen) 11/08/2016 3:57 AM EDT 11/08/2016 4:38 AM EDT us Migue Lynch MD LAB BLOOD ORDERABLES Final Resul t Performing Organization Address City/[facility] Co de Phone Number [facility] [address] * Magnesium (11/08/2016 3:57 AM EDT) Magnesium 1.8 1.5 - 2.5 mg/dL 11/08/2016 5:06 AM EDT [facility] Plasma specimen (specimen) 11/08/2016 3:57 AM EDT 11/08/2016 4:38 AM EDT us Migue Lynch MD LAB BLOOD ORDERABLES Final Resul t Performing Organization Address [facility] de Phone Number [facility] [address] * (ABNORMAL) Basic metabolic panel (11/08/2016 3:57 AM EDT) Sodium 139 133 - 146 mmol/L 11/08/2016 5:06 AM EDT [facility] Potassium 4.0 3.5 - 5.3 mmol/L 11/08/2016 5:06 AM EDT [facility] Chloride 110 98 - 110 mmol/L 11/08/2016 5:06 AM EDT [facility] CO2 22 21 - 33 mmol/L 11/08/2016 5:06 AM EDT [facility] Anion Gap 7 3 - 16 mmol/L 11/08/2016 5:06 AM EDT [facility] BUN 8 7 - 25 mg/dL 11/08/2016 5:06 AM EDT [facility] Creatinine 0.67 0.60 - 1.30 mg/dL 11/08/2016 5:06 AM EDT [facility] Glucose 89 70 - 100 mg/dL 11/08/2016 5:06 AM EDT [facility] Calcium 8.0(L) 8.6 - 10.3 mg/dL 11/08/2016 5:06 AM EDT [facility] Osmolality, Calculated 286 278 - 305 mOsm/kg 11/08/2016 5:06 AM EDT [facility] eGFR AA CKD-EPI >90 See note. 7 5:06 AM EDT [facility] eGFR NONAA CKD-EPI >90 See note. 11/08/2016 5:06 AM EDT [facility] Plasma specimen (specimen) 11/08/2016 3:57 AM EDT 11/08/2016 4:38 AM EDT Narrative [facility] - 11/08/2016 5:06 AM EDT As [...] equation to estimate glomerular filtration rate. ??Alexa Windows Vmware Administrator Med. 2009:150(9):604-12 us Migue Lynch MD LAB BLOOD ORDERABLES Final Resul t [facility] [address] [place] [address], [facility] * (ABNORMAL) CBC (11/08/2016 3:57 AM EDT) WBC 12.6(H) 3.8 - 10.8 10E3/uL 11/08/2016 4:44 AM EDT [facility] RBC 3.57(L) 3.80 - 5.10 10E6/uL 11/08/2016 4:44 AM EDT [facility] Hemoglobin 10.1(L) 11.7 - 15.5 g/dL 11/08/2016 4:44 AM EDT [facility] Hematocrit 30.3(L) 35.0 - 45.0 % 11/08/2016 4:44 AM EDT [facility] MCV 85.0 80.0 - 100.0 fL 11/08/2016 4:44 AM EDT [facility] MCH 28.4 27.0 - 33.0 pg 11/08/2016 4:44 AM EDT [facility] MCHC 33.4 32.0 - 36.0 g/dL 11/08/2016 4:44 AM EDT [facility] RDW 13.4 11.0 - 15.0 % 11/08/2016 4:44 AM EDT [facility] Platelets 271 140 - 400 10E3/uL 11/08/2016 4:44 AM EDT [facility] MPV 8.2 7.5 - 11.5 fL 11/08/2016 4:44 AM EDT [facility] Whole blood specimen (specimen) 11/08/2016 3:57 AM EDT 11/08/2016 4:38 AM EDT us Migue Lynch MD LAB BLOOD ORDERABLES Final Resul t Performing Organization Address City/State/[facility] Co de Phone Number [facility] [address] * ANESTHESIA EPIDURAL PLACEMENT (SMARTFORM) (11/07/2016 [...] after procedure: ??100% Staffing Anesthesiologist: THUAN BARBOZA Resident/ASSISTANT GM OF CONTENT & DELIVERY: VJ ROAJS Performed by: residents Additional Notes The procedure [...] Ur Negative Negative 11/07/2016 6:51 AM EDT [facility] Urine specimen (specimen) 11/07/2016 6:50 AM EDT 11/07/2016 6:51 AM EDT Deborah Parker MD POINT OF CARE TEST ORDERABLES F inal Result [facility] [address] documented in this encounter Visit Diagnoses [...] RN)2052 (Given - Provider: Ronel Wilson RN) 919 (Given - Provider: Dejuan [...] Intravenous, Every 8 hours, First dose on [facility] 11/09/16 at 1900, For 4 days 1906 (Given - Provider: Dejuan Chester RN) ketorolac (TORADOL) injection 15 mg (COMPLETED) 15 mg, Intravenous, Every 8 hours, First dose (after last modification) on [place] 11/10/16 at 0300, For 1 dose 0404 [...] 3 1220 (New Bag - Provider: Dejuan Chestre RN) bupivacaine (MARCAINE) 0.125%/HYDROmorphone (DILAUDID) 0.002% in [...] Saline documented in this encounter Care Teams Quantitative Equity Head Relationship Specialty Start Date End Date Marlo Rubio MD PCP - General Family Medicine 10/09/16 documented as of this encounter
--- OUTSIDE RECORDS SUMMARY | 2024-03-15 10:05 | XMS_ITS | Encounter Summary ---
Author Organization [facility] Address [address] [place] [address] Care Team Providers Care Senior Back End Java Developer Name Role Phone Marlo Rubio MD Primary [...] release of HIV test results or diagnoses. [id number] Health Encounter Details Date Type Department Care Team (Late st Contact Info) Description 01/24/2017 Telephone [facility] PATIENT SERVICES [address] [place], [place] [phone] Aaron Rocha MD [address] [place] [address] Social History Tobacco Use Types [...] and advise. Patient can be reached at [phone]. * Telephone Encounter - Joann Avitia - 01/29/2017 12:23 PM EDT Patient call in to follow up on message below. Please follow up advise * Telephone Encounter - Jyoti Rocha - 01/24/2017 9:30 AM EDT Patient called in wanting to schedule a follow up appointment with Dr. Rocha. Patient can be reached at [phone]. documented in this encounter Plan of Treatment Not on file documented as of this encounter Visit Diagnoses Not on filedocumented in this encounter Additional Health Concerns Assessment Noted Time PHQ-9 Depression Total Score: 10 017 8:00 AM EDT documented as of this encounter Care Teams Senior Back End Java Developer Relationship Specialty Start Date End Date Marlo Rubio MD PCP - General Family Medicine 10/09/16 documented as of this encounter
--- OUTSIDE RECORDS SUMMARY | 2024-03-15 10:05 | XMS_ITS | Encounter Summary ---
Author Organization [facility] Address [address] [place] [address] Care Team Providers Care Plant Breeder Scientist Name Role Phone Marlo Rubio MD Primary [...] release of HIV test results or diagnoses. [id number] Health Reason for Visit * Reason Comments Appointment Encounter Details Date Type Department Care Team (Late Contact Info) Description 10/11/2016 Telephone [facility] Interventional Radiology [address] [place] [phone] Solomon Soriano Appointment Social History Tobacco Use [...] to arrive at 8a and have a drivers' cash clerk. Directed to Radiology documented in this encounter Plan of Treatment Not on file documented as of this encounter Visit Diagnoses Not on filedocumented in this encounter Care Teams Plant Breeder Scientist Relationship Specialty Start Date End Date Marlo Rubio MD PCP - General Family Medicine 10/09/16 documented as of this encounter
--- OUTSIDE RECORDS SUMMARY | 2024-03-15 10:05 | XMS_ITS | Encounter Summary ---
Author Organization [facility] Address [address] [place] [address] Care Team Providers Care Tester Armature Or Fields Name Role Phone Marlo Rubio MD Primary [...] release of HIV test results or diagnoses. [id number] Reason for Referral * Surgical (Routine) - Closed Specialty Diagnoses / Procedures Referred By Amalia tuttle Referred To Contact Radiology Diagnoses Difficult intravenous access Procedures IR PICC Right wo port pum > 5 years AMB Referral to Interventional Radiology (BODY IR) [place] INSERT PICC W/O SUB-Q PORT CHG FLUOROGUIDE CNTRL KRISTOPHER ACCESS,PLACE,REPLACE,REMOVE Deborah Parker MD [address] [facility] [address] [phone] Phone: tel: fax: Referral ID Status Reason Start Date Expiration Date Visits Re quested Visits Authorized [id number] Closed 10/10/2016 04/08/2017 1 1 Reason for Visit * Auth/Cert Specialty Diagnoses / Procedures Referred By Amalia tuttle Referred To Contact Radiology [facility] [place] [address] [place] [address] Phone: tel: Referral ID Status Reason Start Date Expiration Date Visits Re quested Visits Authorized [id number] 1 1 Encounter Details Date Type Department Care Team (Latest Contact Info) Description 10/14/2016 8:10 AM EDT Hospital Encounter [facility] Interventional Radiology [address] [place] [phone] Deborah Parker MD [address] [facility] [address] [place] [address] Kenn Drake PA Difficult intravenous [...] 09/26/2016 ALKPHOS 63 09/26/2016 BILITOT 0.5 09/26/2016 ZHNE Classification: ASA 2 - Patient with mild systemic disease with no functional limitations The patient is in satisfactory condition for the procedure and sedation. Mallampati Class: 2. Sedation Type/Plan: Local/Subcutaneous Lidocaine 1% Imaging: Reviewed Assessment/Plan: PICC placement Please call with questions. Augustin Brower MD Interventional Radiology, PGY-3 Pager: [phone] IR Reading Room: [address] [place] [address] documented in this encounter Procedure Notes * Babatunde Brower MD - 10/14/2016 9:13 AM EDT Interventional Radiology Post Procedure Note Date: 10/14/2016 Patient: Gardenia Childress Name of the procedure performed: PICC placement Operators: Augustin Brower MD (Dry Mop Maker) Dar Drake PA-C Pre-operative diagnosis: Venous access [...] Augustin Brower MD Interventional Radiology, PGY-3 Pager: [phone] IR Reading Room: [address] [place] [address] documented in this encounter Plan of Treatment [...] access documented in this encounter Care Teams Tester Armature Or Fields Relationship Specialty Start Date End Date Marlo Rubio MD PCP - General Family Medicine 10/09/16 documented as of this encounter
--- OUTSIDE RECORDS SUMMARY | 2024-03-15 10:05 | XMS_ITS | Encounter Summary ---
Author Organization [facility] Address [address] [place] [address] Care Team Providers Care Store Assistant Name Role Phone Marlo Rubio MD [...] release of HIV test results or diagnoses. [id number] Reason for Referral * (Routine) - Closed Specialty Diagnoses / Procedures Referred By Amalia t Referred To Contact Radiology Diagnoses Celiac artery stenosis ([facility]-HCC) Procedures IR inj nerve block Lum-Thor Bilat AMB Referral to Interventional Radiology (BODY IR) Deborah Parker MD [address] [facility] [address] [place] [address] Phone: tel: fax: Referral ID Status Reason Start Date Expiration Date Visits Re quested Visits Authorized [id number] Closed 10/29/2016 04/27/2017 1 1 Encounter Details Date Type Department Care Team (Late st Contact Info) Description 10/29/2016 Orders Only [facility] Transplant Surgery at [facility] [address] [facility] [address] [place], [place] [phone] Deborah Parker MD [address] [facility] [address] [place] [phone] Celiac artery stenosis (CMS-HCC) (Primary Dx) Social [...] artery documented in this encounter Care Teams Store Assistant Relationship Specialty Start Date End Date Marlo Rubio MD PCP - General Family Medicine 10/09/16 documented as of this encounter
--- OUTSIDE RECORDS SUMMARY | 2024-03-15 10:05 | XMS_ITS | Encounter Summary ---
Author Organization [facility] Address [address] [place] [address] Care Team Providers Care Chopped Strand Operator Name Role Phone Camila Jasso MD Primary Care Provider [phone] Marlo Ruboi MD Primary Care Provider Unavaila ble Source [...] release of HIV test results or diagnoses. [id number] Health Encounter Details Date Type Department Care Team (Late st Contact Info) Description 09/26/2016 Telephone [facility] PATIENT SERVICES [address] [place] [address] Aaron Rocha MD [address] [place] [phone] Social History Tobacco Use Types Packs/Day [...] pt who states she was seen in [facility] today and treated for upper quadrant [...] f/u. The patient can be contacted at [phone]. documented in this encounter Plan of Treatment Not on file documented as of this encounter Visit Diagnoses Not on filedocumented in this encounter Care Teams Chopped Strand Operator Relationship Specialty Start Date End Date Camila Jasso MD [address] [place] [address] PCP - General 12/03/06 10/08/16 Marlo Rubio MD [address] [place] [address] PCP - General Family Medicine 10/09/16 documented as of this encounter
--- OUTSIDE RECORDS SUMMARY | 2024-03-15 10:05 | XMS_ITS | Encounter Summary ---
Author Organization [facility] Address [address] [place] [address] Care Team Providers Care Salesperson Stereo Equipment Name Role Phone Marlo Rubio MD Primary [...] release of HIV test results or diagnoses. [id number] Health Encounter Details Date Type Department Care Team (Late st Contact Info) Description 10/30/2016 Telephone [facility] Interventional Radiology [address] [place] [phone] Eric Palomo Social History Tobacco Use Types [...] on filedocumented in this encounter Care Teams Salesperson Stereo Equipment Relationship Specialty Start Date End Date Marlo Rubio MD PCP - General Family Medicine 10/09/16 documented as of this encounter
--- OUTSIDE RECORDS SUMMARY | 2024-03-15 10:05 | XMS_ITS | Encounter Summary ---
Author Organization [facility] Address [address] [place] [address] Care Team Providers Care Construction Management Instructor Name Role Phone Marlo Rubio MD Primary [...] release of HIV test results or diagnoses. [id number] [facility] Encounter Details Date Type Department Care Team (Late st Contact Info) Description 01/16/2017 Telephone [facility] Liver Transplant at [address] [phone] Chasidy Ruiz RN Social History Tobacco Use [...] as of this encounter Care Teams Construction Management Instructor Relationship Specialty Start Date End Date Marlo Rubio MD PCP - General Family Medicine 10/09/16 documented as of this encounter
--- OUTSIDE RECORDS SUMMARY | 2024-03-15 10:06 | XMS_ITS | Encounter Summary ---
Author Organization [facility] Address [address] [place] [address] Care Team Providers Care Produce Service Team Member Name Role Phone Camila Jasso MD Primary Care Provider [phone] Source Comments This information has been disclosed [...] release of HIV test results or diagnoses. [id number] Health Encounter Details Date Type Department Care Team (Late st Contact Info) Description 06/12/2009 - 06/12/2009 11:59 PM EST Hospital Encounter OP HISTORICAL [address] [place] [phone] Social History Tobacco Use Types Packs/Day Years [...] PM EST Narrative 06/13/2009 8:07 AM EST ?[facility] Patient: Gardenia CHILDRESS : ? 1980 Accn#: ?? [id number] ? Computed Tomography Exam ? Exam Date/Time [...] of 150 cc nonionic intravenous contrast (Omnipaque-300). Xjomf-bp-inif is 34 cm. Multiplanar reformats and 3D [...] Procedure Note Yolanda Tipton MD - 10/25/2011 [facility] [place] [facility] 1980 [id number]ed Tomography Exam Exam Date/Time Ordering Physician CT-ANGIO ABDOMEN W &/OR 06/12/2009 13:44 EST FREDY SCHUSTER Reason for Exam BILE DUCT STRICTURE 576.[address] angiography of the abdomen with contrast on June 12, 2009. Indication: Biliary stricture. History of choledochojejunostomy. Technical factors: Thin section helical scanning was performed throughthe abdomen following administration of 150 cc nonionic intravenouscontrast (Omnipaque-300). Gmdgg-kk-ndlz is 34 cm. Multiplanar reformats and 3D [...] on filedocumented in this encounter Care Teams Produce Service Team Member Relationship Specialty Start Date End Date Camila Jasso MD [address] [place] [address] PCP - General 12/03/06 10/08/16 documented as of this encounter
--- OUTSIDE RECORDS SUMMARY | 2024-03-15 10:06 | XMS_ITS | Encounter Summary ---
Author Organization [facility] Address [address] [place] [address] Care Team Providers Care Cupboard Builder Name Role Phone Camila Jasso MD Primary Care Provider [phone] Source Comments This information has been disclosed [...] release of HIV test results or diagnoses. [id number] Health Encounter Details Date Type Department Care Team (Late st Contact Info) Description 12/17/2006 - 12/17/2006 11:59 PM EDT Hospital Encounter OP HISTORICAL [address] [place] [phone] Social History Tobacco Use Types Packs/Day Years [...] EDT Narrative 12/17/2006 11:13 AM EDT VERIFIED [facility] Reason: ??CHOLANGITIS 576.1 Dict.Staff: CHELA DOWNEY [id number] Verified By: CHELA DOWNEY ?Trice: 12/17/06 ??11:14 [...] Note Chela Downey MD - 10/24/2011 VERIFIED [facility] Reason: CHOLANGITIS 576.1 Dict.Staff: CHELA DOWNEY [id number] Verified By: CHELA DOWNEY Trice: 12/17/06 11:14 [...] on filedocumented in this encounter Care Teams Cupboard Builder Relationship Specialty Start Date End Date Camila Jasso MD [address] [place] [address] PCP - General 12/03/06 10/08/16 documented as of this encounter
--- OUTSIDE RECORDS SUMMARY | 2024-03-15 10:06 | XMS_ITS | Encounter Summary ---
Author Organization [facility] Address [address] [place] [address] Care Team Providers Care Gallery Host Name Role Phone Camila Jasso MD Primary Care Provider [phone] Source Comments This information has been disclosed [...] release of HIV test results or diagnoses. [id number] Health Encounter Details Date Type Department Care Team (Late st Contact Info) Description 12/15/2006 - 04/20/2007 11:59 PM EST Hospital Encounter OP HISTORICAL [address] [place] [phone] Social History Tobacco Use Types Packs/Day Years [...] on filedocumented in this encounter Care Teams Gallery Host Relationship Specialty Start Date End Date Camila Jasso MD [address] [place] [address] PCP - General 12/03/06 10/08/16 documented as of this encounter
--- OUTSIDE RECORDS SUMMARY | 2024-03-15 10:06 | XMS_ITS | Encounter Summary ---
Author Organization [facility] Address [address] [place] [address] Care Team Providers Care Informatics Physician Liaison Name Role Phone Camila Jasso MD Primary Care Provider [phone] Source Comments This information has been disclosed [...] release of HIV test results or diagnoses. [id number] Health Encounter Details Date Type Department Care Team (Latest Contact Info) Description 12/10/2006 - 04/20/2007 11:59 PM EST Hospital Encounter [facility] Infusion Services at [facility] [address] [place] [address] Ruel Davila MD [address] [facility] [address] [place] [address] Discharge Disposition: Home or Self [...] on filedocumented in this encounter Care Teams Informatics Physician Liaison Relationship Specialty Start Date End Date Camila Jasso MD [address] [place] [address] PCP - General 12/03/06 10/08/16 documented as of this encounter
--- OUTSIDE RECORDS SUMMARY | 2024-03-15 10:06 | XMS_ITS | Encounter Summary ---
Author Organization [facility] Address [address] [place] [address] Care Team Providers Care Centrifugal Operator Name Role Phone Camila Jasso MD Primary Care Provider [phone] Source Comments This information has been disclosed [...] release of HIV test results or diagnoses. [id number] Health Encounter Details Date Type Department Care Team (Latest Contact Info) Description 05/08/2011 10:06 AM EST - 05/10/2011 4:11 PM [facility] Hospital Encounter [facility] [address] [place] [phone] Callum Gallagher MD [address] [place] [phone] Discharge Disposition: Home or Self Care WITHOUT [...] AND NON-PHYSICIAN DOCUMENTATION, PLEASE CONSULT ACCESS ANYWHERE. [address] [address] _ DISCHARGE MEDICATION INSTRUCTIONS PATIENT [...] up herself. PRIMARY PHYSICIAN: Oswaldo Jasso MD [phone] - not contacted Discharge Note All Belongings [...] smoking cessation or support groups: 1. The [facility] 'Win by Quitting' Program 929-991-XRKT 2. Pulmonary Hypertension Association 615-391-1400 or www.phassociation.org 3. [employer] [phone] 4. [employer] [phone] 5. [employer] [phone] _ PATIENT NAME: ISHAN CHILDRESS : 1980 [facility] _ Signed by Eric Mcadams MD on 05/10/2011 at 12:24 PM HOSPITAL _ Signed by Eric Mcadams MD on 05/10/2011 at 12:24 PM documented in this encounter ED Notes * Marcus Plasencia MD - 05/08/2011 11:01 AM EST [facility] PATIENT NAME: ISHAN CHILDRESS MR #: [id number] DATE OF : 1980 ED PHYSICIAN: Marcus Plasencia M.D. ROOM #: APOD PRIMARY: Camila Jasso M.D. NURSING UNIT: [facility] REFERRING: Selected Referral Pt FC: S DICTATED [...] Exam (05/09/2011 12:00 AM EST) 05/09/2011 Narrative [facility] - 05/09/2011 12:00 AM EST CASE: [id number] PATIENT: Ishan CHILDRESS Clinical History: ?? Migraines, Biliary Atresia Pre-Operative Diagnosis: None Given Post-Operative Diagnosis: ? S/P EGD with Bx Hiatal Hernia Specimen(s) Submitted: ?? A. Antrum Bx R/O H. Pylori CPT Code(s): ?? 74453 X 1; 17170 X 1 FINAL DIAGNOSIS: Antrum, biopsy: - [...] developed and their performance characteristics determined by [facility] . They have not been cleared or approved by the US Food and Drug Administration. The FDA has determined that such clearance or approval is not necessary. These tests are used for clinical purposes. They should not be regarded as investigational or for research. Listed are all ASRs used at [facility]. ?? IHC: CMV, EBV, HSV, PIN4, AE1/3/CAM 5.2, p504s, adenovirus. Probes consist of KAVON, kappa, lambda, HPV family 6, HPV family 16, SIS HER2/evaristo. The pathologist signing this report is located at [facility], [address] [place] [address]. ANDREW WAYNE M.D. Pathologist Electronically signed 05/10/2011 us Callum Gallagher MD PATHOLOGY/CYTOLOGY ORDERABLES Final Result [facility] [address] [place] [address] documented in this encounter Visit Diagnoses Not on filedocumented in this encounter Care Teams Centrifugal Operator Relationship Specialty Start Date End Date Camila Jasso MD [address] [place] [address] PCP - General 12/03/06 10/08/16 documented as of this encounter
--- OUTSIDE RECORDS SUMMARY | 2024-03-15 10:06 | XMS_ITS | Encounter Summary ---
Author Organization [facility] Address [address] [place] [address] Care Team Providers Care Rag Sorter And Cutter Name Role Phone Camila Jasso MD Primary Care Provider [phone] Source Comments This information has been disclosed [...] release of HIV test results or diagnoses. [id number] Health Encounter Details Date Type Department Care Team (Late st Contact Info) Description 09/08/2011 - 09/08/2011 11:59 PM EDT Emergency [facility] Emergency Department [address] [place] [phone] Jacob Ibarra MD Discharge Disposition: Home or [...] on filedocumented in this encounter Care Teams Rag Sorter And Cutter Relationship Specialty Start Date End Date Camila Jasso MD [address] [place] [address] (work) PCP - General 12/03/06 10/08/16 documented as of this encounter
--- OUTSIDE RECORDS SUMMARY | 2024-03-15 10:06 | XMS_ITS | Encounter Summary ---
Author Organization [facility] Address [address] [place] [address] Care Team Providers Care Anaesthesiologist Name Role Phone Camila Jasso MD Primary Care Provider [phone] Source Comments This information has been disclosed [...] release of HIV test results or diagnoses. [id number] Health Encounter Details Date Type Department Care Team (Late st Contact Info) Description 03/15/2009 - 03/15/2009 11:59 PM EST Emergency [facility] Emergency Department [address] [place] [phone] Ginny Sheehan MD Discharge Disposition: Home or [...] MD - 03/16/2009 1:09 AM EST [facility] PATIENT NAME: ISHAN CHILDRESS MR #: [id number] DATE OF : 1980 ED PHYSICIAN: Ginny [...] EST Name: OBIE Flowers : ??1980 VERIFIED [facility] Reason: ??pain, vomiting Dict.Staff: TREVON ALEGRIA [id number] Dict.Res: HARPER TRAN [id number] Verified By: TREVON ALEGRIA ? Trice: 03/15/09 [...] 10/25/2011 Name: OBIE Flowers : 1980 VERIFIED [facility] Reason: pain, vomiting Dict.Staff: TREVON ALEGRIA [id number] Dict.Res: HARPER TRAN [id number] Verified By: TREVON ALEGRIA Trice: 03/15/09 9:17 [...] on filedocumented in this encounter Care Teams Anaesthesiologist Relationship Specialty Start Date End Date Camila Jasso MD [address] [place] [address] PCP - General 12/03/06 10/08/16 documented as of this encounter
--- OUTSIDE RECORDS SUMMARY | 2024-03-15 10:06 | XMS_ITS | Encounter Summary ---
Author Organization [facility] Address [address] [place] [address] Care Team Providers Care Roofing Technician Name Role Phone Camila Jasso MD Primary Care Provider [phone] Source Comments This information has been disclosed [...] release of HIV test results or diagnoses. [id number] Health Encounter Details Date Type Department Care Team (Late st Contact Info) Description 07/20/2009 - 07/20/2009 11:59 PM EDT Hospital Encounter [facility] OP H[facility]ORICAL [address] [place] [phone] Social History Tobacco Use Types Packs/Day Years [...] EDT Narrative 07/20/2009 2:48 PM EDT ? [facility] Patient: Gardenia CHILDRESS : ? 1980 Accn#: ?? [id number] Interventional Radiology Exam Date/Time 07/20/2009 10:04 EDT [...] Procedure Note Christopher Nielsen MD - 10/25/2011 [facility] Patient: Gardenia CHILDRESS : 1980 Accn#: [id number] Interventional Radiology Exam Date/Time 07/20/2009 10:04 EDT [...] EDT Narrative 07/20/2009 2:48 PM EDT ? [facility] Patient: Gardenia CHILDRESS : ? 1980 Accn#: ?? [id number] Interventional Radiology Exam Date/Time 07/20/2009 10:04 EDT [...] Procedure Note Christopher Nielsen MD - 10/25/2011 [facility] Patient: Gardenia CHILDRESS : 1980 [facility]: [id number] Accn#: [id number] Interventional Radiology Exam Date/Time 07/20/2009 10:04 EDT [...] on filedocumented in this encounter Care Teams Roofing Technician Relationship Specialty Start Date End Date Camila Jasso MD [address] [place] [address] PCP - General 12/03/06 10/08/16 documented as of this encounter
--- OUTSIDE RECORDS SUMMARY | 2024-03-15 10:06 | XMS_ITS | Encounter Summary ---
Author Organization [facility] Address [address] [place] [address] Care Team Providers Care Mechanical Repair Worker Name Role Phone Camila Jasso MD Primary Care Provider [phone] Source Comments This information has been disclosed [...] release of HIV test results or diagnoses. [id number] Health Encounter Details Date Type Department Care Team (Latest Contact Info) Description 05/12/2009 11:16 AM EST - 05/12/2009 4:07 PM EST Hospital Encounter [facility] ENDOSCOPY [address] [place] [address] Perry Bray MD Discharge Disposition: Home or [...] predisposed. Recommendations: Would consult surgery. Procedure Codes: 99393 Performed By: The procedure was performed by Perry Bray MD. [place]: Version 1, electronically signed by Dr. Perry Bray on 05/12/2009 at 15:00. documented in this encounter Plan of Treatment Not on file documented as of this encounter Visit Diagnoses Not on filedocumented in this encounter Care Teams Mechanical Repair Worker Relationship Specialty Start Date End Date Camila Jasso MD [address] [place] [address] PCP - General 12/03/06 10/08/16 documented as of this encounter
--- OUTSIDE RECORDS SUMMARY | 2024-03-15 10:06 | XMS_ITS | Encounter Summary ---
Author Organization [facility] Address [address] [place] [address] Care Team Providers Care Provider Education Specialist Name Role Phone Camila Jasso MD Primary Care Provider [phone] Source Comments This information has been disclosed [...] release of HIV test results or diagnoses. [id number] Health Encounter Details Date Type Department Care Team (Latest Contact Info) Description 06/16/2009 5:57 AM EST - 06/16/2009 6:10 PM EST Hospital Encounter [facility] [address] [place] [phone] Rigoberto Kelly MD Discharge Disposition: Home or [...] EST Narrative 06/19/2009 3:47 PM EST ? [facility] Patient: Gardenia CHILDRESS : ? 1980 Accn#: ?? [id number] ?Interventional Radiology Exam Date/Time 06/16/2009 12:15 EST [...] ultrasound. Operators: Dr. Pino (VIR Fellow), Dr. Canas(Insurance Sales Assistant), and Dr. Nielsen (VIR Attending) were present [...] Procedure Note Christopher Nielsen MD - 10/30/2011 [facility]: [place] [facility] 1980 [id number] Interventional Radiology Exam Date/Time 06/16/2009 12:15 EST [...] ultrasound. Operators: Dr. Pino (VIR Fellow), Dr. Canas(Insurance Sales Assistant),and Dr. Nielsen (VIR Attending) were present for [...] EST Narrative 06/19/2009 3:47 PM EST ? [facility] Patient: Gardenia CHILDRESS : ? 1980 Accn#: ?? [id number] ?Interventional Radiology Exam Date/Time 06/16/2009 12:15 EST [...] ultrasound. Operators: Dr. Pino (VIR Fellow), Dr. Canas(Insurance Sales Assistant), and Dr. Nielsen (VIR Attending) were present [...] Procedure Note Christopher Nielsen MD - 10/25/2011 [facility] Patient: [place] CHILDRESS [facility] 1980 [id number] Interventional Radiology Exam Date/Time 06/16/2009 12:15 EST [...] ultrasound. Operators: Dr. Pino (VIR Fellow), Dr. Canas(Insurance Sales Assistant),and Dr. Nielsen (VIR Attending) were present for [...] EST Narrative 06/19/2009 3:47 PM EST ? [facility] Patient: Gardenia CHILDRESS : ? 1980 Accn#: ?? [id number] ?Interventional Radiology Exam Date/Time 06/16/2009 12:15 EST [...] ultrasound. Operators: Dr. Pino (VIR Fellow), Dr. Canas(Insurance Sales Assistant), and Dr. Nielsen (VIR Attending) were present [...] Procedure Note Christopher Nielsen MD - 10/25/2011 [facility] Patient: Gardenia CHILDRESS : 1980 [facility]: [id number] [facility]#: [id number] Interventional Radiology Exam Date/Time 06/16/2009 12:15 EST [...] ultrasound. Operators: Dr. Pino (VIR Fellow), Dr. Canas(Insurance Sales Assistant),and Dr. Nielsen (VIR Attending) were present for [...] EST Narrative 06/19/2009 3:47 PM EST ? [facility] Patient: Gardenia CHILDRESS : ? 1980 Accn#: ?? [id number] ?Interventional Radiology Exam Date/Time 06/16/2009 12:15 EST [...] ultrasound. Operators: Dr. Pino (VIR Fellow), Dr. Canas(Insurance Sales Assistant), and Dr. Nielsen (VIR Attending) were present [...] Procedure Note Christopher Nielsen MD - 10/25/2011 [facility] Patient: [place] CHILDRESS [facility] 1980 [id number] Interventional Radiology Exam Date/Time 06/16/2009 12:15 EST [...] ultrasound. Operators: Dr. Pino (VIR Fellow), Dr. Canas(Insurance Sales Assistant),and Dr. Nielsen (VIR Attending) were present for [...] EST Narrative 06/19/2009 3:47 PM EST ? [facility] Patient: Gardenia CHILDRESS : ? 1980 Accn#: ?? [id number] ?Interventional Radiology Exam Date/Time 06/16/2009 12:15 EST [...] ultrasound. Operators: Dr. Pino (VIR Fellow), Dr. Canas(Insurance Sales Assistant), and Dr. Nielsen (VIR Attending) were present [...] Procedure Note Christopher Nielsen MD - 10/25/2011 [facility] Patient: [place] CHILDRESS [facility] 1980 [id number] Interventional Radiology Exam Date/Time 06/16/2009 12:15 EST [...] ultrasound. Operators: Dr. Pino (VIR Fellow), Dr. Canas(Insurance Sales Assistant),and Dr. Nielsen (VIR Attending) were present for [...] M.D. Technologist: ABDIAS NORMAN Rigoberto Kelly MD [facility] IR ORDERABLES Final Result documented in this encounter Visit Diagnoses Not on filedocumented in this encounter Care Teams Provider Education Specialist Relationship Specialty Start Date End Date Camila Jasso MD [address] [place] [address] PCP - General 12/03/06 10/08/16 documented as of this encounter
--- OUTSIDE RECORDS SUMMARY | 2024-03-15 10:06 | XMS_ITS | Encounter Summary ---
Author Organization [facility] Address [address] [place] [address] Care Team Providers Care Pipe Installer Name Role Phone Camila Jasso MD Primary Care Provider [phone] Source Comments This information has been disclosed [...] release of HIV test results or diagnoses. [id number] Health Encounter Details Date Type Department Care Team (Latest Contact Info) Description 12/03/2006 6:08 PM EDT - 12/09/2006 2:15 PM EDT Hospital Encounter [facility] [address] [place] [address] Ruel Davila MD [address] [facility]. [address] [place] [address] Fredy Schuster MD Discharge Disposition: [...] MD - 12/12/2006 11:47 AM EDT [facility] PATIENT NAME: GARDENIA CHILDRESS MR #: [id number] DATE OF : 1980 ADMITTING: Fredy Schuster M.D., Ph.D. ROOM #: [id number] ATTENDING: Fredy Schuster M.D., Ph.D. NURSING UNIT: [facility] SERVICE: Liver Transplantation FC: S PRIMARY: [...] her with the appointment date and time. [facility] ____ Fredy Schuster M.D., Ph.D. Dictated by: [...] EDT Narrative 12/08/2006 11:59 AM EDT VERIFIED [facility] Reason: ??Abdominal Abscess Dict.Staff: Kostas LEONARD [id number] Dict.Res: BETTY VILLANUEVA [id number] Verified By: Kostas LEONARD ?Trice: 12/11/06 ??12:04 [...] Note Bong Leonard MD - 10/24/2011 VERIFIED [facility] Reason: Abdominal Abscess Dict.Staff: Kostas LEONARD [id number] Dict.Res: HUNTERLILIANABETTY [id number] Verified By: Kostas LEONARD Trice: 12/11/06 12:04 [...] EDT Narrative 12/08/2006 11:59 AM EDT VERIFIED [facility] Reason: ??Abdominal Abscess Dict.Staff: Kostas LEONARD [id number] Dict.Res: BETTY VILLANUEVA [id number] Verified By: Kostas LEONARD ?Trice: 12/11/06 ??12:04 [...] Note Bong Leonard MD - 10/24/2011 VERIFIED [facility] Reason: Abdominal Abscess Dict.Staff: Kostas LEONARD [id number] Dict.Res: HUNTERLILIANABETTY [id number] Verified By: Kostas LEONARD Trice: 12/11/06 12:04 [...] Unremarkable pelvis CT. end of result us Ahmte Davila MD IMG CT ORDERABLES Final Result * X-ray Portable Chest (12/05/2006 10:07 AM EDT) Anatomical Region Laterality Modality Chest Radiographic Kristi ging 12/05/2006 10:0 7 AM EDT Narrative 12/05/2006 12:24 PM EDT VERIFIED [facility] Reason: ??picc line placed rt arm Dict.Staff: KAROLINA CISNEROS [id number] Verified By: KAROLINA CISNEROS ? Trice: 12/05/06 [...] Note Karolina Cisneros MD - 10/24/2011 VERIFIED [facility] Reason: picc line placed rt arm Dict.Staff: KAROLINA CISNEROS [id number] Verified By: KAROLINA CISNEROS Trice: 12/05/06 12:24 [...] EDT Narrative 12/05/2006 2:59 PM EDT VERIFIED [facility] Reason: ??Abdominal Pain Dict.Staff: KAROLINA CISNEROS [id number] Dict.Res: ZAIDA STALLWORTH [id number] Verified By: KAROLINA CISNEROS ? Trice: 12/05/06 ?? 4:14 pm Exams: ??DIAG-WATER SOLUBLE UGI W/ABD Single contrast upper GI studies: 12/05/2006 Indication: History of Kasai procedure for biliary atresia, possible jejunal perforation seen on CT, please evaluate. 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 Technical factors: After initial clinical systems educator views, Gastrografin was given orally to obtain [...] evidence of leak. end of result us Ahmet Davila MD IMG DIAGNOSTIC IMAGING ORDERABLE S Final Result * CT Pelvis With contrast (12/03/2006 4:42 PM EDT) Anatomical Region Laterality Modality Pelvis Computed Tomogra phy 12/03/2006 4:42 PM EDT Narrative 12/04/2006 1:41 AM EDT VERIFIED ? ADDENDED REPORT ? ADDENDUM# 1 [facility] Reason: ??r/o cholangitits Dict.Staff: EHSAN NIELSEN [id number] Dict.Res: FEDE GUTIERRES [id number] Verified By: EHSAN NIELSEN ? Trice: 12/04/06 [...] VERIFIED ? ADDENDED REPORT ? ADDENDUM# 0 [facility] Reason: ??r/o cholangitits Dict.Staff: ELSA, OMER KENDALL Dict.Res: FEDE GUTIERRES [id number] Verified By: PRELIMINARY, [facility] ? Trice: 12/04/06 ?? 8:21 am Exams: [...] Gastrografin oral contrast was also administered. The wzlkd-za-dzlr is 36 cm. Findings: Small amount of [...] - 10/24/2011 VERIFIED ADDENDED REPORT ADDENDUM# 1 [facility] Reason: r/o cholangitits Dict.Staff: EHSAN NIELSEN [id number] Dict.Res: FEDE GUTIERRES [id number] Verified By: EHSAN NIELSEN Trice: 12/04/06 3:44 [...] on 12/04/2006. VERIFIED ADDENDED REPORT ADDENDUM# 0 [facility] Reason: r/o cholangitits Dict.Staff: ELSA [facility] Dict.Res: FEDE GUTIERRES [id number] Verified By: [facility], [facility] Trice: 12/04/06 8:21 am Exams: CT-ABDOMEN WITH [...] Gastrografin oral contrast was also administered. The mvgib-md-jktw is 36 cm. Findings: Small amount of [...] Radiologist. end of result Cayden Velez MD [facility] CT ORDERABLES Final Result * CT Abdomen With contrast (12/03/2006 4:42 PM EDT) Anatomical Region Laterality Modality Abdomen Computed Tomogra phy 12/03/2006 4:42 PM EDT Narrative 12/04/2006 1:41 AM EDT VERIFIED ? ADDENDED REPORT ? ADDENDUM# 1 [facility] Reason: ??r/o cholangitits Dict.Staff: EHSAN NIELSEN [id number] Dict.Res: FEDE GUTIERRES [id number] Verified By: EHSAN NIELSEN ? Trice: 12/04/06 [...] VERIFIED ? ADDENDED REPORT ? ADDENDUM# 0 [facility] Reason: ??r/o cholangitits Dict.Staff: PRELIMINARY, [facility] Dict.Res: FEDE GUTIERRES [id number] Verified By: PRELIMINARY, [facility] ? Trice: 12/04/06 ?? 8:21 am Exams: [...] Gastrografin oral contrast was also administered. The zoukr-ws-mpfv is 36 cm. Findings: Small amount of [...] - 10/24/2011 VERIFIED ADDENDED REPORT ADDENDUM# 1 [facility] Reason: r/o cholangitits Dict.Staff: EHSAN NIELSEN [id number] Dict.Res: FEDE GUTIERRES [id number] Verified By: EHSAN NIELSEN Trice: 12/04/06 3:44 [...] on 12/04/2006. VERIFIED ADDENDED REPORT ADDENDUM# 0 [facility] Reason: r/o cholangitits Dict.Staff: PRELIMINARY, [facility] Dict.Res: FEDE GUTIERRES [id number] Verified By: [facility], [facility] Trice: 12/04/06 8:21 am Exams: CT-ABDOMEN WITH [...] Gastrografin oral contrast was also administered. The xsmrq-mr-uxnt is 36 cm. Findings: Small amount of [...] on filedocumented in this encounter Care Teams Pipe Installer Relationship Specialty Start Date End Date Camila Jasso MD [address] [place] [address] PCP - General 12/03/06 10/08/16 documented as of this encounter
--- OUTSIDE RECORDS SUMMARY | 2024-03-15 10:06 | XMS_ITS | Encounter Summary ---
Author Organization [facility] Address [address] [place] [address] Care Team Providers Care Packing Machine Pilot Can Router Name Role Phone Camila Jasso MD Primary Care Provider [phone] Source Comments This information has been disclosed [...] release of HIV test results or diagnoses. [id number] Health Encounter Details Date Type Department Care Team (Latest Contact Info) Description 05/03/2009 - 04/20/2010 11:59 PM EST Hospital Encounter [facility] at [address] [phone] Aaron Rocha MD [address] [place] [phone] Discharge Disposition: Home or Self Care [...] on filedocumented in this encounter Care Teams Packing Machine Pilot Can Router Relationship Specialty Start Date End Date Camila Jasso MD [address] [place] [address] PCP - General 12/03/06 10/08/16 documented as of this encounter
--- OUTSIDE RECORDS SUMMARY | 2024-03-15 10:06 | XMS_ITS | Encounter Summary ---
Author Organization [facility] Address [address] [place] [address] Care Team Providers Care Shellfish Meat Separator Operator Name Role Phone Camila Jasso MD Primary Care Provider [phone] Source Comments This information has been disclosed [...] release of HIV test results or diagnoses. [id number] Reason for Visit * Reason Comments Abdominal Pain Encounter Details Date Type Department Care Team (Late st Contact Info) Description 09/26/2016 9:34 AM EDT - 09/26/2016 11:38 AM EDT Emergency [facility] Emergency Department [address] [place] [phone] Aleksey Bruce MD Epigastric pain (Primary Dx) [...] through Care Everywhere. * ABDOMINAL PAIN, ADULT (CAMBODIAN) documented in this encounter Medications at Time [...] as of this encounter Progress Notes * Aleksey Bruce MD - 09/26/2016 11:14 AM EDT [...] López MD - 09/26/2016 9:36 AM EDT [facility] ED Note Date of Service: [...] she would benefit from follow-up with her battery plate remover, Dr. Rocha. Summary of Treatment in ED: [...] was advised to follow up with her battery plate remover. Risks, benefits, and alternatives were discussed. Discharge [...] Mixed Skin/Urogeni bony Mindi. No Further Workup. [facility] Urine specimen (specimen) URINE SPECIMEN / Unknown 09/26/2016 11:28 AM EDT 09/26/2016 12:59 PM EDT Kelvin López MD MICROBIOLOGY - GENERAL ORDERABL ES Final Result [facility] [address] * Potassium (09/26/2016 11:14 AM EDT) Potassium 4.1 3.5 - 5.3 mmol/L 09/26/2016 11:30 AM EDT [facility] Plasma specimen (specimen) 09/26/2016 11:14 AM EDT 09/26/2016 11:15 AM EDT Kelvin López MD LAB BLOOD ORDERABLES Final Resu lt [facility] [address] * (ABNORMAL) Urinalysis, Microscopic (09/26/2016 10:05 AM EDT) RBC, UA 1 0 - 3 /HPF 09/26/2016 10:42 AM EDT [facility] WBC, UA 8(H) 0 - 5 /HPF 09/26/2016 10:42 AM EDT [facility] Squam Epithel, UA 4 0 - 5 /HPF 09/26/2016 10:42 AM EDT [facility] Bacteria, UA Rare(A) None Seen /HPF 09/26/2016 10:42 AM EDT [facility] Mucus, UA Present(A) None Seen /HPF 09/26/2016 10:42 AM EDT [facility] Urine specimen (specimen) 09/26/2016 10:05 AM EDT 09/26/2016 10:09 AM EDT Kelvin López MD URINE ORDERABLES Final Result [facility] [address] * Differential (09/26/2016 10:05 AM EDT) Neutrophils Relative 69.8 40.0 - 80.0 % 09/26/2016 10:27 AM EDT [facility] Lymphocytes Relative 19.1 15.0 - 45.0 % 09/26/2016 10:27 AM EDT [facility] Monocytes Relative 6.5 0.0 - 12.0 % 09/26/2016 10:27 AM EDT [facility] Eosinophils Relative 4.2 0.0 - 8.0 % 09/26/2016 10:27 AM EDT [facility] Basophils Relative 0.4 0.0 - 1.0 % 09/26/2016 10:27 AM EDT [facility] nRBC 0 0 - 0 /100 WBC 09/26/2016 10:27 AM EDT [facility] Neutrophils Absolute 5,514 1,500 - 7,800 /uL 09/26/2016 10:27 AM EDT [facility] Lymphocytes Absolute 1,509 850 - 3,900 /uL 09/26/2016 10:27 AM EDT [facility] Monocytes Absolute 514 200 - 950 /uL 09/26/2016 10:27 AM EDT [facility] Eosinophils Absolute 332 15 - 500 /uL 09/26/2016 10:27 AM EDT [facility] Basophils Absolute 32 0 - 200 /uL 09/26/2016 10:27 AM EDT [facility] Whole blood specimen (specimen) 09/26/2016 10:05 AM EDT 09/26/2016 10:16 AM EDT Kelvin López MD LAB BLOOD ORDERABLES Final Resu lt [facility] [address] [place] [address], [facility] * CBC (09/26/2016 10:05 AM EDT) WBC 7.9 3.8 - 10.8 10E3/uL 09/26/2016 10:27 AM EDT [facility] RBC 4.89 3.80 - 5.10 10E6/uL 09/26/2016 10:27 AM EDT [facility] Hemoglobin 13.8 11.7 - 15.5 g/dL 09/26/2016 10:27 AM EDT [facility] Hematocrit 41.6 35.0 - 45.0 % 09/26/2016 10:27 AM EDT [facility] MCV 85.1 80.0 - 100.0 fL 09/26/2016 10:27 AM EDT [facility] MCH 28.2 27.0 - 33.0 pg 09/26/2016 10:27 AM EDT [facility] MCHC 33.1 32.0 - 36.0 g/dL 09/26/2016 10:27 AM EDT [facility] RDW 14.1 11.0 - 15.0 % 09/26/2016 10:27 AM EDT [facility] Platelets 269 140 - 400 10E3/uL 09/26/2016 10:27 AM EDT [facility] MPV 8.3 7.5 - 11.5 fL 09/26/2016 10:27 AM EDT [facility] Whole blood specimen (specimen) 09/26/2016 10:05 AM EDT 09/26/2016 10:16 AM EDT Kelvin López MD LAB BLOOD ORDERABLES Final Resu lt Performing Organization Address City/Va Hospital/ZIP Co de Phone Number [facility] [address] [facility]. [address] * Lipase (09/26/2016 10:05 AM EDT) Lipase 14 4 - 82 U/L 09/26/2016 10:23 AM EDT [facility] Plasma specimen (specimen) 09/26/2016 10:05 AM EDT 09/26/2016 10:06 AM EDT Kelvin López MD LAB BLOOD ORDERABLES Final Resu lt [facility] [address] [facility]. [address] * Hepatic Function Panel (09/26/2016 10:05 AM EDT) Total Bilirubin 0.5 0.0 - 1.5 mg/dL 09/26/2016 10:23 AM EDT [facility] Bilirubin, Direct 0.1 0.0 - 0.4 mg/dL 09/26/2016 10:23 AM EDT [facility] Comment:HEMOLYSIS EVIDENT. R ESULTS MAY BE INFLUENCED. AST 24 13 - 39 U/L 09/26/2016 10:23 AM EDT [facility] ALT 14 7 - 52 U/L 09/26/2016 10:23 AM EDT [facility] Alkaline Phosphatase 63 36 - 125 U/L 09/26/2016 10:23 AM EDT [facility] Total Protein 7.6 6.4 - 8.9 g/dL 09/26/2016 10:23 AM EDT [facility] Albumin 4.3 3.5 - 5.7 g/dL 09/26/2016 10:23 AM EDT [facility] Bilirubin, Indirect 0.4 0.0 - 1.1 mg/dL 09/26/2016 10:23 AM EDT [facility] Plasma specimen (specimen) 09/26/2016 10:05 AM EDT 09/26/2016 10:06 AM EDT Kelvin López MD LAB BLOOD ORDERABLES Final Resu lt [facility] [address] * Basic metabolic panel (09/26/2016 10:05 AM EDT) Sodium 140 133 - 146 mmol/L 09/26/2016 10:23 AM EDT [facility] Potassium 4.8 3.5 - 5.3 mmol/L 09/26/2016 10:23 AM EDT [facility] Comment:Hemolysis Present: R esults may be influenced artificially. Recommend recollection as clinically indicated. Chloride 109 98 - 110 mmol/L 09/26/2016 10:23 AM EDT [facility] CO2 24 21 - 33 mmol/L 09/26/2016 10:23 AM EDT [facility] Anion Gap 7 3 - 16 mmol/L 09/26/2016 10:23 AM EDT [facility] BUN 11 7 - 25 mg/dL 09/26/2016 10:23 AM EDT [facility] Creatinine 0.79 0.60 - 1.30 mg/dL 09/26/2016 10:23 AM EDT [facility] Glucose 81 70 - 100 mg/dL 09/26/2016 10:23 AM EDT [facility] Calcium 9.2 8.6 - 10.3 mg/dL 09/26/2016 10:23 AM EDT [facility] Osmolality, Calculated 288 278 - 305 mOsm/kg 09/26/2016 10:23 AM EDT [facility] eGFR AA CKD-EPI >90 See note. 7 10:23 AM EDT [facility] eGFR NONAA CKD-EPI >90 See note. 09/26/2016 10:23 AM EDT [facility] Plasma specimen (specimen) 09/26/2016 10:05 AM EDT 09/26/2016 10:06 AM EDT Narrative [facility] - 09/26/2016 10:23 AM EDT [...] equation to estimate glomerular filtration rate. ??Alexa Laundry Assistant Med. 2009:150(9):604-12 Kelvin López MD LAB BLOOD ORDERABLES Final Resu lt Performing Organization Address City/Va Hospital/ZIP Co de Phone Number [facility] [address] [facility]. [address] * , Urine, Qualitative (09/26/2016 10:05 AM EDT) Preg Test, Ur NEGATIVE NEGATIVE 09/26/2016 10:11 AM EDT [facility] Urine specimen (specimen) 09/26/2016 10:05 AM EDT 09/26/2016 10:06 AM EDT Kelvin López MD URINE ORDERABLES Final Result Performing Organization Address [facility] de Phone Number [facility] [address] * (ABNORMAL) Urinalysis - Macroscopic w/ Reflex to Microscopic (09/26/2016 10:05 AM EDT) Color, UA Yellow Yellow,Straw 09/26/2016 10:09 AM EDT [facility] Clarity, UA Clear Clear 09/26/2016 10:09 AM EDT [facility] Specific [place], UA 1.020 1.005 - 1.035 09/26/2016 10:09 AM EDT [facility] pH, UA 7.0 5.0 - 8.0 09/26/2016 10:09 AM EDT [facility] Protein, UA Negative Negative mg/dL 09/26/2016 10:09 AM EDT [facility] Glucose, UA Negative Negative mg/dL 09/26/2016 10:09 AM EDT [facility] Ketones, UA Negative Negative mg/dL 09/26/2016 10:09 AM EDT [facility] Bilirubin, UA Negative Negative 09/26/2016 10:09 AM EDT [facility] Blood, UA Trace-intact (A) Negative 09/26/2016 10:09 AM EDT [facility] Nitrite, UA Negative Negative 09/26/2016 10:09 AM EDT [facility] Urobilinogen, UA 0.2 E.U./dL 0.2 - 1.0 EU/dL 09/26/2016 10:09 AM EDT [facility] Leukocyte Esterase, UA Trace(A) Negative 09/26/2016 10:09 AM EDT [facility] Urine specimen (specimen) 09/26/2016 10:05 AM EDT 09/26/2016 10:06 AM EDT Kelvin López MD URINE ORDERABLES Final Result Performing Organization Address City/State/[facility] Co de Phone Number [facility] [address] documented in this encounter Visit Diagnoses [...] solution. documented in this encounter Care Teams Shellfish Meat Separator Operator Relationship Specialty Start Date End Date Camila Jasso MD [address] [place] [address] PCP - General 12/03/06 10/08/16 documented as of this encounter
--- OUTSIDE RECORDS SUMMARY | 2024-03-15 10:06 | XMS_ITS | Encounter Summary ---
Author Organization [facility] Address [address] [place] [address] Care Team Providers Care Audio Visual Arts Director Name Role Phone Camila Jasso MD Primary Care Provider [phone] Source Comments This information has been disclosed [...] release of HIV test results or diagnoses. [id number] Health Encounter Details Date Type Department Care Team (Late st Contact Info) Description 06/22/2009 - 06/22/2009 11:59 PM EST Hospital Encounter OP HISTORICAL [address] [place] [id number] Social History Tobacco Use Types Packs/Day Years [...] EST Narrative 06/23/2009 5:45 PM EST ? [facility] Patient: [place] CHILDRESS : ? 1980 Accn#: ?? [id number] ?Interventional Radiology Exam Date/Time 06/22/2009 10:20 EST [...] exchanged over the guidewire for a 16 Malian dilator. A new 16 Malian Bentec internal / external, biliary drainage catheter was then placed over the wire. ??An inner 8 Malian biliary catheter was used to provide rigidity to the Bentec biliary drainage catheter during placement over the wire. This inner 8 Malian catheter was subsequently removed following proper placement [...] catheter. ??The patient currently has a 16 Malian Bentec internal / external, biliary drainage catheter in a left intrahepatic biliary duct. VERIFIED REPORT Dictated: 06/23/2009 5:46 pm ?PILO PIÑA M.D. Signed (Electronic Signature): ??CHRISTOPHER NIELSEN M.D. ? 06/26/09 5:31 Resident: ??PILO PIÑA M.D. Technologist: TAS Procedure Note Christopher Nielsen MD - 10/25/2011 [facility] Patient: [place] [facility] 1980 [id number] Interventional Radiology Exam Date/Time 06/22/2009 10:20 EST [...] patient received preprocedure IV antibiotics. The patient [id number] minutes of IV moderate sedation under the [...] exchanged over the guidewire for a 16 Malian dilator. A new 16 Malian Bentec internal / external, biliary drainage catheter was then placed over the wire. An inner 8 Malian biliarycatheter was used to provide rigidity to the Bentec biliary drainage catheterduring placement over the wire. This inner 8 Malian catheter was subsequently removed following proper placement [...] catheter. The patient currently has a 16 Malian Bentec internal/ external, biliary drainage catheter in [...] EST Narrative 06/23/2009 5:45 PM EST ? [facility] Patient: [place] CHILDRESS : ? 1980 Accn#: ?? [id number] ?Interventional Radiology Exam Date/Time 06/22/2009 10:20 EST [...] exchanged over the guidewire for a 16 Malian dilator. A new 16 Malian Bentec internal / external, biliary drainage catheter was then placed over the wire. ??An inner 8 Malian biliary catheter was used to provide rigidity to the Bentec biliary drainage catheter during placement over the wire. This inner 8 Malian catheter was subsequently removed following proper placement [...] catheter. ??The patient currently has a 16 Malian Bentec internal / external, biliary drainage catheter in a left intrahepatic biliary duct. VERIFIED REPORT Dictated: 06/23/2009 5:46 pm ?PILO PIÑA M.D. Signed (Electronic Signature): ??CHRISTOPHER NIELSEN M.D. ? 06/26/09 5:31 Resident: ??PILO PIÑA M.D. Technologist: TAS Procedure Note Christopher Nielsen MD - 10/25/2011 [facility] Patient: [place] [facility]ILDRESS [facility] 1980 [id number] Interventional Radiology Exam Date/Time 06/22/2009 10:20 EST [...] patient received preprocedure IV antibiotics. The patient [id number] minutes of IV moderate sedation under the [...] exchanged over the guidewire for a 16 Malian dilator. A new 16 Malian Bentec internal / external, biliary drainage catheter was then placed over the wire. An inner 8 Malian biliarycatheter was used to provide rigidity to the Bentec biliary drainage catheterduring placement over the wire. This inner 8 Malian catheter was subsequently removed following proper placement [...] catheter. The patient currently has a 16 Malian Bentec internal/ external, biliary drainage catheter in [...] EST Narrative 06/23/2009 5:45 PM EST ? [facility] Patient: [place] CHILDRESS : ? 1980 Accn#: ?? [id number] ?Interventional Radiology Exam Date/Time 06/22/2009 10:20 EST [...] exchanged over the guidewire for a 16 Malian dilator. A new 16 Malian Bentec internal / external, biliary drainage catheter was then placed over the wire. ??An inner 8 Malian biliary catheter was used to provide rigidity to the Bentec biliary drainage catheter during placement over the wire. This inner 8 Malian catheter was subsequently removed following proper placement [...] catheter. ??The patient currently has a 16 Malian Bentec internal / external, biliary drainage catheter in a left intrahepatic biliary duct. VERIFIED REPORT Dictated: 06/23/2009 5:46 pm ?PILO PIÑA M.D. Signed (Electronic Signature): ??CHRISTOPHER NIELSEN M.D. ? 06/26/09 5:31 Resident: ??PILO PIÑA M.D. Technologist: TAS Procedure Note Christopher Nielsen MD - 10/25/2011 [facility] Patient: [place] CHILDRESS : 1980 [id number] Interventional Radiology Exam Date/Time 06/22/2009 10:20 EST [...] patient received preprocedure IV antibiotics. The patient [id number] minutes of IV moderate sedation under the [...] exchanged over the guidewire for a 16 Malian dilator. A new 16 Malian Bentec internal / external, biliary drainage catheter was then placed over the wire. An inner 8 Malian biliarycatheter was used to provide rigidity to the Bentec biliary drainage catheterduring placement over the wire. This inner 8 Malian catheter was subsequently removed following proper placement [...] catheter. The patient currently has a 16 Malian Bentec internal/ external, biliary drainage catheter in [...] EST Narrative 06/23/2009 5:45 PM EST ? [facility] Patient: [place] CHILDRESS : ? 1980 Accn#: ?? [id number] ?Interventional Radiology Exam Date/Time 06/22/2009 10:20 EST [...] exchanged over the guidewire for a 16 Malian dilator. A new 16 Malian Bentec internal / external, biliary drainage catheter was then placed over the wire. ??An inner 8 Malian biliary catheter was used to provide rigidity to the Bentec biliary drainage catheter during placement over the wire. This inner 8 Malian catheter was subsequently removed following proper placement [...] catheter. ??The patient currently has a 16 Malian Bentec internal / external, biliary drainage catheter in a left intrahepatic biliary duct. VERIFIED REPORT Dictated: 06/23/2009 5:46 pm ?PILO PIÑA M.D. Signed (Electronic Signature): ??CHRISTOPHER NIELSEN M.D. ? 06/26/09 5:31 Resident: ??PILO PIÑA M.D. Technologist: TAS Procedure Note Christopher Nielsen MD - 10/25/2011 [facility] Patient: [place] CHILDRESS : 1980 [id number] Interventional Radiology Exam Date/Time 06/22/2009 10:20 EST [...] patient received preprocedure IV antibiotics. The patient [id number] minutes of IV moderate sedation under the [...] exchanged over the guidewire for a 16 Malian dilator. A new 16 Malian Bentec internal / external, biliary drainage catheter was then placed over the wire. An inner 8 Malian biliarycatheter was used to provide rigidity to the Bentec biliary drainage catheterduring placement over the wire. This inner 8 Malian catheter was subsequently removed following proper placement [...] catheter. The patient currently has a 16 Malian Bentec internal/ external, biliary drainage catheter in a left intrahepatic biliaryduct. VERIFIED REPORT Dictated: 06/23/2009 5:46 pm PILO PIÑA M.D. Signed (Electronic Signature): CHRISTOPHER NIELSEN M.D. N03 5:31 Resident: PILO PIÑA M.D. Technologist: JULY us Fredy Schuster MD IMG IR ORDERABLES Final Result documented in this encounter Visit Diagnoses Not on filedocumented in this encounter Care Teams Audio Visual Arts Director Relationship Specialty Start Date End Date Camila Jasso MD [address] [place] [address] PCP - General 12/03/06 10/08/16 documented as of this encounter
--- OUTSIDE RECORDS SUMMARY | 2024-03-15 10:06 | XMS_ITS | Encounter Summary ---
Author Organization [facility] Address [address] [place] [address] Care Team Providers Care Children'S Author Name Role Phone Camila Jasso MD Primary Care Provider [phone] Source Comments This information has been disclosed [...] release of HIV test results or diagnoses. [id number] Health Encounter Details Date Type Department Care Team (Late st Contact Info) Description 03/03/2009 - 03/03/2009 11:59 PM EST Hospital Encounter OP HISTORICAL [address] [place] [phone] Social History Tobacco Use Types Packs/Day Years [...] EST Name: OBIE Flowers : ??1980 VERIFIED [facility] Reason: ??BILIARY ATRESIA; CHOLANGITIS Dict.Staff: ADRIANO KIMBALL [id number] Dict.Res: VLADIMIR (FELLOW), LIBORIO [id number] Verified By: ADRIANO KIMBALL ? Trice: 03/08/09 [...] 10/25/2011 Name: OBIE Flowers : 1980 VERIFIED [facility] Reason: BILIARY ATRESIA; CHOLANGITIS Dict.Staff: ADRIANO KIMBALL [id number] Dict.Res: VLADIMIR (FELLOW), LIBORIO [id number] Verified By: ADRIANO KIMBALL Trice: 03/08/09 10:39 [...] abnormality. end of result Gerard Agosto MD [facility] MRI ORDERABLES Final Result documented in this encounter Visit Diagnoses Not on filedocumented in this encounter Care Teams Children'S Author Relationship Specialty Start Date End Date Camila Jasso MD [address] [place] [address] PCP - General 12/03/06 10/08/16 documented as of this encounter
[2024-03-15 12:10] LABS: Reflex Lactic Add Lactic Reflex
[2024-03-15 12:36] LABS: Lactic Acid Follow Up (RFLX 1) 1.4 mmol/L (0.7-2.1)
[2024-03-16] VITALS (8 sets, daily range): BP systolic 128–149; BP diastolic 77–96; PULSE 75–109; RESP 16–20; TEMP 36.7–36.9; O2SAT 93–97; BMI 27.1
[2024-03-16] MEDS: HYDROMORPHONE 2MG/ML SYRINGE 0.5 MG IV ×7 (00:05→22:10)
--- NOTE | 2024-03-16 04:43 | PC.NURSE ---
Addendum entered by Emely Arroyo RN 03/16/24 06:06: Patient reported moderate pain and a little nausea this morning. Toradol and compazine will be given accordingly at this time per MAR per patient requests. Addendum entered by Emely Arroyo RN 03/16/24 05:18: At this time, patient did not report any increases in her pain nor other complaints other than hiccupping. Patient was also encouraged to drink ice water this morning. She stated that so far, she has been able to tolerate it. Original Note: Patient is alert and oriented x4. Patient was observed to have eyes closed, respirations even and unlabored on room air, but periodic distress throughout the night. Patient has complained of significant abdominal pain consistently through the shift, of which has been treated with Dilautid per MAR. Patient has reported some relief after pain medication administrations, and she was able to rest occasionally before reporting that the pain's coming back. Patient also complained of some nausea with vomiting during the first half of the shift; compazine was given per MAR as well. Emesis output was documented accordingly. Lactated ringers are infusing at 125 mL/hr. Patient expressed that she has not been able to consume any fluids this shift. Patient stated that she is afraid to drink anything in case it makes her abdominal pain even worse. Patient also reported having hesitancy during voids; she has used the bedside commode this shift. Patient denied dysuria upon assessment; urine appearance was carole with a strong odor. Upon auscultation, patient's lung sounds were clear, S1/S2 heart sounds could be heard, but bowel sounds did not present. Patient has been self-turning in bed. At this time, the patient does not have any further complaints of pain nor nausea. No acute changes noted thus far. Call light within reach.
[2024-03-16] MEDS: PROCHLORPERAZINE 10MG/2ML VIAL 5 MG IV ×2 (06:08→14:09)
[2024-03-16] MEDS: KETOROLAC 30MG/ML VIAL 30 MG IV ×3 (06:08→20:30)
[2024-03-16 06:42] LABS: Basophils % 0.2 % (0.1-2.0); Eosinophils % 0.2 % (0.1-12.0); Hematocrit 45.1 % (37.0-47.0); Hemoglobin 15.4 g/dL (12.2-16.2); Lymphocytes # 0.7 K/mm3 (0.7-4.5); Lymphocytes % 3.4 % (10-50); Mean Corpuscular HGB Conc 34.2 g/dL (31.8-35.4); Mean Corpuscular Hemoglobin 29.5 pg (27.0-31.2); Mean Corpuscular Volume 86.2 fl (81-99); Mean Platelet Volume 7.3 fl (7.4-10.4); Monocytes # 0.9 K/mm3 (0.1-1.0); Monocytes % 4.5 % (1.7-9.3); Neutrophils # 18.4 K/mm3 (1.8-7.8); Neutrophils % 91.6 % (37.0-80.0); Platelet Count 369 K/mm3 (142-424); Red Blood Count 5.24 M/mm3 (4.20-5.40); Red Cell Distribution Width 13.7 % (11.5-17.5); White Blood Count 20.1 K/mm3 (4.8-10.8)
[2024-03-16 06:43] LABS: Alanine Aminotransferase 13 U/L (12-78); Albumin Level 2.7 g/dl (3.5-5.0); Albumin/Globulin Ratio 1.1 (1.1-1.8); Alkaline Phosphatase 68 U/L (38-126); Anion Gap 7.7 mEq/L (5-15); Aspartate Amino Transferase 22 U/L (14-36); Bilirubin,Total 0.6 mg/dl (0.2-1.3); Blood Urea Nitrogen 16 mg/dl (7-17); Calcium 7.9 mg/dl (8.4-10.2); Carbon Dioxide 24 mmol/L (22.0-30.0); Chloride 107 mmol/L (98-107); Creatinine Clearance Estimated 171 mL/min (50-200); Estimated Glomerular Filt Rate 135 ml/min (>60); GFR (African American) 164 ML/MIN (>60); Globulin 2.4 g/dL (1.3-3.2); Glucose 125 mg/dl (74-100); Magnesium 1.8 mg/dl (1.6-2.3); Potassium 3.7 mmoL/L (3.5-5.1); Sodium 135 mmol/L (136-145); Total Protein,Serum 5.1 g/dl (6.3-8.2)
[2024-03-16] MEDS: LACTATED RINGERS 1000ML 1,000 ML 125 ML IV ×3 (06:50→22:02)
[2024-03-16 06:52] LABS: MANUAL DIFFERENTIAL MANUAL DIFFERENTIAL (MANUAL DIFF)
--- NOTE | 2024-03-16 06:53 | PC.NURSE ---
At this time, the patient was complaining of having acid reflux more over than pain or nausea. I attempted to page the hospitalist for new interventions twice, but I was met with no answers (forwarded messages). Information will be passed along to the oncoming shift.
[2024-03-16] MEDS: AMLODIPINE 2.5MG TABLET 2.5 MG PO (08:16)
[2024-03-16] MEDS: METOPROLOL SUCCINATE XL 25MG TABLET 25 MG PO (08:16)
[2024-03-16] MEDS: BELLADONNA ALKALOIDS 60 ML ML PO (08:29)
[2024-03-16 08:31] LABS: Lymphocytes % 4 % (10-50); Monocytes % 93 % (2-9); Neutrophils % 3 % (42-76); Total Cells Counted 100
[2024-03-16 08:32] LABS: Platelet Estimate Normal; RBC Morphology Normal
[2024-03-16] MEDS: FAMOTIDINE 20MG TABLET 20 MG PO ×2 (09:33→20:27)
[2024-03-16] MEDS: PANTOPRAZOLE 40MG VIAL 40 MG IV (11:02)
[2024-03-16] MEDS: SODIUM CHLORIDE 0.9% 10ML VIAL 10 ML IV (11:02)
--- NOTE | 2024-03-16 12:34 | EXP.PN ---
Subjective *Date: 03/16/24 *Time: 12:34 Interval history: Subjectively improved today with less pain. Patient more alert and awake today. Still having moderate pain requiring opiate pain medications. Exam Data for Last 24 hours Vital signs and Labs for Last 24 Hours: Temp Pulse Resp BP Pulse Ox O2 Del Method 98.2 F 109 H 18 130/96 H 96 Room Air 03/16/24 11:36 03/16/24 11:36 03/16/24 11:36 03/16/24 11:36 03/16/24 11:36 03/16/24 11:36 Laboratory Results - last 24 hr 03/15/24 12:18: Lactate 1.4 03/16/24 05:55: WBC 20.1 H*, RBC 5.24, Hgb 15.4, Hct 45.1, MCV 86.2, MCH 29.5, MCHC 34.2, RDW 13.7, Plt Count 369, MPV 7.3 L, Neut % (Auto) 91.6 H, Lymph % (Auto) 3.4 L, [place] % (Auto) 4.5, Eos % (Auto) 0.2, Baso % (Auto) 0.2, Neut # (Auto) 18.4 H, Lymph # (Auto) 0.7, [place] # (Auto) 0.9, Eos # (Auto) 0.0, Baso # (Auto) 0.0, Total Counted 100, Neutrophils % (Manual) 3 L, Lymphocytes % (Manual) 4 L, Monocytes % (Manual) 93 H, Platelet Estimate Normal, RBC Morphology Normal, Sodium 135 L, Potassium 3.7, Chloride 107, Carbon Dioxide 24, Anion Gap 7.7, BUN 16 D, Creatinine 0.50 L, Estimated Creat Clear 171, Estimated GFR 135, Est GFR ( Amer) 164, Glucose 125 H, Calcium 7.9 L, Magnesium 1.8, Total Bilirubin 0.6, AST 22 D, ALT 13 D, Alkaline Phosphatase 68, Total Protein 5.1 L, Albumin 2.7 L D, Globulin 2.4, Albumin/Globulin Ratio 1.1 I & O for Last 24 hours: Intake & Output 03/13/24 03/14/24 03/15/24 03/16/24 23:59 23:59 23:59 23:59 Intake Total 120 / 4830 6170 / 6170 Output Total 390 / 510 120 / 120 Balance -270 / 4320 6050 / 6050 Weight 158 lb 9.6 oz 163 lb 1.6 oz 163 lb Microbiology Reports for the Last 24 Hours: Microbiology 03/14/24 18:39 Blood Blood Culture - Preliminary NO GROWTH AFTER 24 HOURS 03/14/24 18:39 Blood Blood Culture - Preliminary *Routine Abdominal Exam Abdominal: Present tenderness Comments: Moderate tenderness without rebound or guarding, normoactive bowel sounds Assessment and Plan *Assessment and plan (1) Acute pancreatitis: Status: Acute Category: Medical Code(s): K85.90 - Acute pancreatitis without necrosis or infection, unspecified Plan 1. Acute pancreatitis. 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 Depending on the type of surgery, she may not be amenable to standard ERCP especially if there is a long Burton limb. I do suspect that this is the case since the patient had surgery at and then required interventional placed stent or drainage to to the pancreas after a bout of pancreatitis 20 years ago. I do suspect that this pancreatitis is related to her former surgery. I would recommend MRCP when pancreatitis resolved which may be in a couple of weeks. I would also recommend diagnostic EGD tomorrow to evaluate anatomy and whether ERCP is amenable via standard approach. Feeding is important presently and I would begin oral or NG tube feeding depending on tolerance. Labs and clinical symptoms are improved.
--- NOTE | 2024-03-16 17:30 | PC.NURSE ---
pt resting in bed at this time. a&ox4. lung sounds clear, absent bowel sounds. pt has had minimal urine output, despite LR infusing at 125. pt has complained of pain numerous times and has been treated per mar. pt also given warm blanket to hold on abdomen for comfort. pt states that her pain is worse when lying flat. tolerating RA well with sats >90%. pt has refused to eat more than a few bites of food, stating that this makes the pain worse. pt given GI cocktail, pepcid and protonix for acid reflux. pt has not complained of reflux since these has been administered. pt did complain of n/v once this shift and was treated per jun. pt is to have an EGD tomorrow and is agreeable. pt has no complaints at this time. call light within reach, bed in low and locked position and bed alarm on for pt safety.
--- NOTE | 2024-03-16 20:46 | EXP.PN ---
Subjective *Date: 03/16/24 *Time: 20:46 Interval history: Patient continues to have poor tolerance to diet, complaining of abdominal pain. Exam Data for Last 24 hours Vital signs and Labs for Last 24 Hours: Temp Pulse Resp BP Pulse Ox O2 Del Method 98.4 F 88 16 145/80 H 97 Room Air 03/16/24 19:43 03/16/24 19:43 03/16/24 19:43 03/16/24 19:43 03/16/24 19:58 03/16/24 19:58 Laboratory Results - last 24 hr 03/16/24 05:55: WBC 20.1 H*, RBC 5.24, Hgb 15.4, Hct 45.1, MCV 86.2, MCH 29.5, MCHC 34.2, RDW 13.7, Plt Count 369, MPV 7.3 L, Neut % (Auto) 91.6 H, Lymph % (Auto) 3.4 L, [place] % (Auto) 4.5, Eos % (Auto) 0.2, Baso % (Auto) 0.2, Neut # (Auto) 18.4 H, Lymph # (Auto) 0.7, [place] # (Auto) 0.9, Eos # (Auto) 0.0, Baso # (Auto) 0.0, Total Counted 100, Neutrophils % (Manual) 3 L, Lymphocytes % (Manual) 4 L, Monocytes % (Manual) 93 H, Platelet Estimate Normal, RBC Morphology Normal, Sodium 135 L, Potassium 3.7, Chloride 107, Carbon Dioxide 24, Anion Gap 7.7, BUN 16 D, Creatinine 0.50 L, Estimated Creat Clear 171, Estimated GFR 135, Est GFR ( Amer) 164, Glucose 125 H, Calcium 7.9 L, Magnesium 1.8, Total Bilirubin 0.6, AST 22 D, ALT 13 D, Alkaline Phosphatase 68, Total Protein 5.1 L, Albumin 2.7 L D, Globulin 2.4, Albumin/Globulin Ratio 1.1 I & O for Last 24 hours: Intake & Output 03/13/24 03/14/24 03/15/24 03/16/24 23:59 23:59 23:59 23:59 Intake Total 120 / 4830 6830 / 6830 Output Total 390 / 510 520 / 520 Balance -270 / 4320 6310 / 6310 Weight 71.94 kg 73.981 kg 73.93 kg Microbiology Reports for the Last 24 Hours: Microbiology 03/14/24 18:39 Blood Blood Culture - Preliminary NO GROWTH AFTER 48 HOURS Constitutional Constitutional: no acute distress *Routine HEENT Exam Head: Present normocephalic Eye: Present EOMI and PERRL ENT: Present mucous membranes moist *Routine Neck Exam Neck: Present supple; Absent lymphadenopathy *Routine Respiratory Exam Respiratory: Present CTA bilaterally *Routine Cardiovascular Exam Cardiovascular: Present RRR *Routine Abdominal Exam Abdominal: Present tenderness Comments: Moderate tenderness without rebound or guarding, normoactive bowel sounds *Routine Extremities Exam Extremities: Absent cyanosis, clubbing or edema *Routine Skin Exam Skin: Present warm; Absent rash *Routine Neurological Exam Neurological: Present alert and oriented X3 Assessment and Plan *Assessment and plan (1) Pancreatitis: Status: Acute Qualifiers: Acute pancreatitis complication: no infection or necrosis Chronicity: acute Pancreatitis type: idiopathic Qualified Code(s): K85.00 - Idiopathic acute pancreatitis without necrosis or infection Category: Medical Code(s): K85.90 - Acute pancreatitis without necrosis or infection, unspecified (2) Pneumobilia: Status: Acute Category: Medical Code(s): K83.8 - Other specified diseases of biliary tract (3) HTN (hypertension): Status: Acute Qualifiers: Hypertension type: primary hypertension Qualified Code(s): I10 - Essential (primary) hypertension Category: Medical Code(s): I10 - Essential (primary) hypertension (4) 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 On my exam, patient has lying in bed in no acute distress. Reports her abdominal pain is improved, rated at a 4/10 currently. Continues to require inpatient management, still reporting pain, nausea showing improvement. Problems addressed as follows: #Acute pancreatitis #Pneumobilia #History of biliary atresia - Spoke to GI at length, due to patient's anatomy and previous surgery, may benefit from MRCP when her pancreatitis cools down. - GI consulted, EGD consulted as pancreatic symptoms are not improving. Required interventional radiology stenting/drainage ~20 years ago. 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 NPO at midnight. - Patient continues to have poor tolerance to diet, complaining of abdominal pain. - Continue LR at 125 cc/h. - LDH low at 177. Calcium 8.2, phosphorus 3.0, kidney function normal with BUN 7, creatinine 0.5. White count elevated at 19, likely reactive. Will hold on antibiotics at this time. - Dilaudid 0.5 mg every 2 hours as needed for severe breakthrough pain along with Toradol 30 mg IV every 6 hours as needed for moderate to severe pain. Monitor for toxicity. Continue Compazine 5 mg as needed every 6 hours for nausea and vomiting. - White count down from ~20. Lipase down from 59,000 on admission to 4800. #Hypokalemia - Improved this morning with potassium 3.7. Magnesium 1.8. Monitor daily for replacement. #HTN - Continue home amlodipine 2.5 mg daily along with metoprolol succinate 25 mg daily. DVT prophylaxis: SCDs CODE STATUS: Full code Surrogate decision maker: Nilda [phone] Skin: Low risk Estimated length of stay: Greater than 2 midnights
[2024-03-17] VITALS (16 sets, daily range): BP systolic 131–162; BP diastolic 74–99; PULSE 79–109; RESP 16–22; TEMP 36.3–37; O2SAT 91–99; BMI 28.5
[2024-03-17] MEDS: HYDROMORPHONE 2MG/ML SYRINGE 0.5 MG IV ×3 (00:23→08:20)
[2024-03-17] MEDS: ACETAMINOPHEN 325MG TAB 650 MG PO ×2 (01:58→22:04)
[2024-03-17] MEDS: KETOROLAC 30MG/ML VIAL 30 MG IV ×3 (03:06→18:12)
--- NOTE | 2024-03-17 04:34 | PC.NURSE ---
44 yo fe pt is A/O X 4. She is able to ambulate to BR without difficulty and has reportedly been voiding well. Pt has been medicated for pain 5 times during this shift, 4 times for abdominal pain and 1 time for back pain. She has denied N/V and has tolerated liquids. Pt has been NPO since MI for upcoming procedure. VS have been stable for pt
[2024-03-17] MEDS: LACTATED RINGERS 1000ML 1,000 ML 125 ML IV ×3 (05:18→23:30)
[2024-03-17 06:21] LABS: Basophils % 0.2 % (0.1-2.0); Eosinophils # 0.3 K/mm3 (0.0-0.4); Eosinophils % 1.7 % (0.1-12.0); Hematocrit 38.8 % (37.0-47.0); Lymphocytes # 0.7 K/mm3 (0.7-4.5); Lymphocytes % 4.5 % (10-50); Mean Corpuscular HGB Conc 34.5 g/dL (31.8-35.4); Mean Corpuscular Hemoglobin 29.2 pg (27.0-31.2); Mean Corpuscular Volume 84.6 fl (81-99); Mean Platelet Volume 7.3 fl (7.4-10.4); Monocytes # 0.8 K/mm3 (0.1-1.0); Monocytes % 4.6 % (1.7-9.3); Neutrophils # 14.4 K/mm3 (1.8-7.8); Neutrophils % 89.1 % (37.0-80.0); Platelet Count 285 K/mm3 (142-424); Red Blood Count 4.58 M/mm3 (4.20-5.40); Red Cell Distribution Width 13.7 % (11.5-17.5); White Blood Count 16.1 K/mm3 (4.8-10.8)
[2024-03-17 06:29] LABS: Alanine Aminotransferase 14 U/L (12-78); Albumin Level 2.5 g/dl (3.5-5.0); Albumin/Globulin Ratio 1.1 (1.1-1.8); Alkaline Phosphatase 63 U/L (38-126); Anion Gap 7.7 mEq/L (5-15); Aspartate Amino Transferase 21 U/L (14-36); Bilirubin,Total 0.8 mg/dl (0.2-1.3); Blood Urea Nitrogen 14 mg/dl (7-17); Calcium 7.8 mg/dl (8.4-10.2); Carbon Dioxide 25 mmol/L (22.0-30.0); Chloride 107 mmol/L (98-107); Creatinine Clearance Estimated 150 mL/min (50-200); Estimated Glomerular Filt Rate 110 ml/min (>60); GFR (African American) 133 ML/MIN (>60); Globulin 2.3 g/dL (1.3-3.2); Glucose 94 mg/dl (74-100); MANUAL DIFFERENTIAL MANUAL DIFFERENTIAL (MANUAL DIFF); Potassium 3.7 mmoL/L (3.5-5.1); Sodium 136 mmol/L (136-145); Total Protein,Serum 4.8 g/dl (6.3-8.2)
--- NOTE | 2024-03-17 06:39 | PC.NURSE ---
Pt to OR for EGD
--- NOTE | 2024-03-17 06:39 | PC.NURSE ---
Patient left floor with pre-op at 06:39.
--- NOTE | 2024-03-17 07:04 | EXP.ANES.CKL ---
[facility] Disclaimer: The information contained in this section may have been updated after the patient was seen, as this information can be updated by other users. Medical History (Updated 03/15/24 @ 17:35 by Abdifatah Patel MD) Biliary atresia Surgical History History of cholecystectomy Social History Smoking Status: Never smoker alcohol intake: never substance use type: denies use current occupational status: employed [employer] Anesthesia Checklist Patient Identification Patient Identification: Arm Band Structural Data Admitted From: Inpatient Planned Operative Procedure/s: EGD Consent for Planned Operative Procedure(s) Verified: Yes Verified Documents: Surgical Consent and History and Physical NPO Status Verified Time NPO: 00:00 Additional verifications Patient : No Anesthesia Reactions: No Hx Blood Transfusions: No Blood Transfusion Reaction: No Cephalosporin Allergy: No Previous Colonoscopy: No Airway Assessment Mallampati Score:: Class II C-Spine Mobility Assessed: Yes TMJ Mobility Assessed: Yes Neurological Assessment Level of Consciousness: Awake, Alert, Appropriate and Follows Commands Hx Seizures: No Numbness or tingling in extremities: No Anesthesia Plan Anesthesia Risk discussed: Yes ASA Class: II Anesthesia Type: MAC Preoperative Comments Pre-Operative Comments: Asymptomatic ASD. Woke up once during surgery. Chronic pain.
--- NOTE | 2024-03-17 07:19 | P.PCN_ITS ---
[facility] Procedure Note Date: 03/17/24 Time: 07:28 Procedure Note:: Upper Endoscopy Procedure Report: Esophagogastroduodenoscopy with cold biopsies Endoscopost: Edwin Garcia II, MD Referring Physician: Mini Reeder MD [address] [place] [id number] Date of Procedure: March 17, 2024 Equipment: Olympus GIF 190 standard upper endoscope Sedation: MAC sedation Indications: Mrs. Childress is a 44-year-old female who is here for diagnostic upper endoscopy. She does have a former history of biliary atresia that was repaired via surgery during infancy. She did have a bout of pancreatitis 20 years ago and had intervention and suspected percutaneous intervention because of her prior surgical anatomy. The patient presents presently with acute pancreatitis and normal liver chemistries. The patient is clinically improving. Diagnostic upper endoscopy is performed to determine anatomy (Burton limb with choledochojejunostomy versus choledochoduodenostomy) to determine whether ERCP can be performed with standard approach. Procedure: Prior to the procedure, a history and physical exam was performed, and patient's medications and allergies were reviewed. The risks, benefits and alternatives of the sedation and procedure were discussed with the patient. All questions were answered and informed consent was obtained. The patient was brought to the procedure room. Patient identification and proposed procedure were verified by the physician and the nurse. The patient was placed in a left lateral decubitus position and the scope was passed under direct vision. Throughout the procedure, the patient's blood pressure, pulse, and oxygen saturations were monitored continuously. The upper GI endoscopy was accomplished without difficulty. The patient tolerated the procedure well. Findings: The scope was passed directly into the upper esophagus and advanced to the third portion of the duodenum. Upon withdrawal, the ampulla was identified and was normal in appearance. There was no surgical change. The remainder of the post bulbar duodenum and duodenal bulb were normal with normal mucosa and conniventes. The scope was withdrawn through a normal duodenal bulb and pylorus into the stomach. There was minimal to no gastritis in the body of the stomach and biopsies were obtained. Upon retroflexion there was a small 2 cm hiatal hernia. The scope was then withdrawn into the esophagus. There was no evidence of reflux esophagitis or Benjamin's. The remainder of the esophageal mucosa was normal. Impression: 1. Normal upper GI anatomy with ampulla visualized and no ampullary abnormality 2. Small 2 cm hiatal hernia Plan: The patient most likely had a Kasai surgical procedure (hepatoportoenterostomy) for her biliary atresia which does not result in pancreatic ductal changes. In that regard, I do not feel that this prior Kasai surgery relates to her present pancreatitis. Indeed, all of her liver chemistries are normal. I will await MRCP to see if there is any evidence of a congenital pancreatic abnormality (i.e. pancreas divisum) which may result in recurrent pancreatitis. There is a higher incidence of congenital pancreatic abnormalities in individuals with biliary atresia. Persons with biliary atresia are more likely to have a pancreatic duct anomaly. ERCP of the pancreatic ductal system can be performed by standard approach.
[2024-03-17 08:08] LABS: Eosinophils % 2 % (0-3); Lymphocytes % 4 % (10-50); Monocytes % 2 % (2-9); Neutrophils % 86 % (42-76); Platelet Estimate Normal; RBC Morphology Normal; Total Cells Counted 100
[2024-03-17] MEDS: METOPROLOL SUCCINATE XL 25MG TABLET 25 MG PO (08:08)
[2024-03-17] MEDS: AMLODIPINE 2.5MG TABLET 2.5 MG PO (08:08)
[2024-03-17] MEDS: PANTOPRAZOLE 40MG VIAL 40 MG IV (08:08)
[2024-03-17] MEDS: SODIUM CHLORIDE 0.9% 10ML VIAL 10 ML IV (08:08)
[2024-03-17] MEDS: FAMOTIDINE 20MG TABLET 20 MG PO ×2 (08:08→20:07)
[2024-03-17 08:40] LABS: Erythrocyte Sedimentation Rate 31 mm/hr (0-20)
[2024-03-17 08:49] LABS: Hemoglobin 13.5 g/dL (12.2-16.2)
[2024-03-17] MEDS: HYDROMORPHONE 2MG/ML SYRINGE 2 MG IV ×4 (12:04→23:30)
--- NOTE | 2024-03-17 17:43 | PC.NURSE ---
a&ox4. tolerating ra w/ sats >90%.EGD this am and vss since. ambulated w/ standby assistance to the br numerous times this shift with no difficulty. pt has complained of pain numerous times and has been medicated per jun. discussed w/ md altering pain med distribution due to pt not feeling lasting relief. med order changed for dilaudid to 2mg q4 PRN. pt verbalized that this has been working much better for her. new iv placed in rt wrist by IVETTE MONACO and has LR @125. PT tolerating small amounts of po intake. no complaints at this time. call light within reach, bed in low and locked position.
--- NOTE | 2024-03-17 21:38 | P.PN_ITS ---
Subjective *Date: 03/18/24 *Time: 12:25 Exam Data for Last 24 hours Vital signs and Labs for Last 24 Hours: Temp Pulse Resp BP Pulse Ox O2 Del Method O2 Flow Rate 98.2 F 84 18 137/80 96 Room Air 5 03/17/24 19:39 03/17/24 19:39 03/17/24 19:39 03/17/24 19:39 03/17/24 19:39 03/17/24 21:00 03/17/24 07:22 Laboratory Results - last 24 hr 03/17/24 05:46: WBC 16.1 H, RBC 4.58, Hgb 13.5 D, Hct 38.8, MCV 84.6, MCH 29.2, MCHC 34.5, RDW 13.7, Plt Count 285, MPV 7.3 L, Neut % (Auto) 89.1 H, Lymph % (Auto) 4.5 L, [place] % (Auto) 4.6, Eos % (Auto) 1.7, Baso % (Auto) 0.2, Neut # (Auto) 14.4 H, Lymph # (Auto) 0.7, [place] # (Auto) 0.8, Eos # (Auto) 0.3, Baso # (Auto) 0.0, Total Counted 100, Neutrophils % (Manual) 86 H, Band Neutrophils % 6.0, Lymphocytes % (Manual) 4 L, Monocytes % (Manual) 2, Eosinophils % (Manual) 2, Platelet Estimate Normal, RBC Morphology Normal, ESR 31 H, Sodium 136, Potassium 3.7, Chloride 107, Carbon Dioxide 25, Anion Gap 7.7, BUN 14, Creatinine 0.60, Estimated Creat Clear 150, Estimated GFR 110, Est GFR ( Amer) 133, Glucose 94 D, Calcium 7.8 L, Magnesium 2.0 D, Total Bilirubin 0.8, AST 21, ALT 14, Alkaline Phosphatase 63, Total Protein 4.8 L, Albumin 2.5 L, Globulin 2.3, Albumin/Globulin Ratio 1.1, Procalcitonin 0.210 I & O for Last 24 hours: Intake & Output 03/14/24 03/15/24 03/16/24 03/17/24 23:59 23:59 23:59 23:59 Intake Total 120 / 4830 6830 / 7455 3506 / 3506 Output Total 390 / 510 520 / 720 800 / 800 Balance -270 / 4320 6310 / 6735 2706 / 2706 Weight 71.94 kg 73.981 kg 73.93 kg 77.564 kg Microbiology Reports for the Last 24 Hours: Microbiology 03/14/24 18:39 Blood Blood Culture - Preliminary NO GROWTH AFTER 48 HOURS Constitutional Constitutional: no acute distress *Routine HEENT Exam Head: Present normocephalic Eye: Present EOMI and PERRL ENT: Present mucous membranes moist *Routine Neck Exam Neck: Present supple; Absent lymphadenopathy *Routine Respiratory Exam Respiratory: Present CTA bilaterally *Routine Cardiovascular Exam Cardiovascular: Present RRR *Routine Abdominal Exam Abdominal: Present tenderness Comments: Moderate tenderness without rebound or guarding, normoactive bowel sounds *Routine Extremities Exam Extremities: Absent cyanosis, clubbing or edema *Routine Skin Exam Skin: Present warm; Absent rash *Routine Neurological Exam Neurological: Present alert and oriented X3 Assessment and Plan *Assessment and plan (1) Pancreatitis: Status: Acute Qualifiers: Acute pancreatitis complication: no infection or necrosis Chronicity: acute Pancreatitis type: idiopathic Qualified Code(s): K85.00 - Idiopathic acute pancreatitis without necrosis or infection Category: Medical Code(s): K85.90 - Acute pancreatitis without necrosis or infection, unspecified (2) Pneumobilia: Status: Acute Category: Medical Code(s): K83.8 - Other specified diseases of biliary tract (3) HTN (hypertension): Status: Acute Qualifiers: Hypertension type: primary hypertension Qualified Code(s): I10 - Essential (primary) hypertension Category: Medical Code(s): I10 - Essential (primary) hypertension (4) 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 On my exam, patient has lying in bed in no acute distress. Reports her abdominal pain is improved, rated at a 4/10 currently. Continues to require inpatient management, still reporting pain, nausea showing improvement. Problems addressed as follows: #Acute pancreatitis #Pneumobilia #History of biliary atresia - Spoke to GI at length, due to patient's anatomy and previous surgery, may benefit from MRCP when her pancreatitis cools down. - GI consulted, s/p EGD on 03/18/24 showed normal upper GI anatomy, small 2 cm hiatal hernia. Required interventional radiology stenting/drainage ~20 years ago. - Patient continues to have poor tolerance to diet, complaining of abdominal pain. - WBC has improved to 16.1 today, abdominal pain and p.o. tolerance has somewhat improved today but still having moderate to significant pain. Continue low residue diet at this time. ? Dilaudid, Toradol pain regimen as needed. ? Will follow-up with GI outpatient, can consider MRCP at that time. ? 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 #Positive blood culture ? 1 out of 2 bottles on showing staph, Moraxella growth on 03/14/2024. Likely contaminant. ? Follow-up repeat blood cultures. #Hypokalemia -Replating. #HTN - Continue home amlodipine 2.5 mg daily along with metoprolol succinate 25 mg daily. DVT prophylaxis: SCDs CODE STATUS: Full code Surrogate decision maker: Nilda [phone] Skin: Low risk Estimated length of stay: Greater than 2 midnights
[2024-03-18] VITALS: BP 129/66; PULSE 107; TEMP 36.8; O2SAT 92
[2024-03-18] MEDS: KETOROLAC 30MG/ML VIAL 30 MG IV ×4 (01:47→18:47)
[2024-03-18 04:00] VITALS: BP 144/87; PULSE 92; RESP 17; TEMP 37.1; O2SAT 94; BMI 29.5
[2024-03-18] MEDS: HYDROMORPHONE 2MG/ML SYRINGE 2 MG IV ×4 (04:06→21:53)
--- NOTE | 2024-03-18 06:20 | PC.NURSE ---
Pt A&OX4 and has tolerated room air. Lung sounds clear and bowel sounds active. Pt has complained of abdominal pain multiple times this shift and was medicated per MAR. She has denied any N/V. She has ambulated to the bathroom with standby assist. Currently resting with call light within reach.
[2024-03-18 06:22] LABS: Alanine Aminotransferase 12 U/L (12-78); Albumin Level 2.5 g/dl (3.5-5.0); Albumin/Globulin Ratio 1.1 (1.1-1.8); Alkaline Phosphatase 62 U/L (38-126); Anion Gap 7.4 mEq/L (5-15); Aspartate Amino Transferase 21 U/L (14-36); Bilirubin,Total 0.6 mg/dl (0.2-1.3); Blood Urea Nitrogen 9 mg/dl (7-17); Calcium 7.7 mg/dl (8.4-10.2); Carbon Dioxide 26 mmol/L (22.0-30.0); Chloride 106 mmol/L (98-107); Creatinine Clearance Estimated 186 mL/min (50-200); Estimated Glomerular Filt Rate 135 ml/min (>60); GFR (African American) 164 ML/MIN (>60); Globulin 2.3 g/dL (1.3-3.2); Glucose 76 mg/dl (74-100); Potassium 3.4 mmoL/L (3.5-5.1); Sodium 136 mmol/L (136-145); Total Protein,Serum 4.8 g/dl (6.3-8.2)
[2024-03-18] MEDS: OXYCODONE 5MG W/APAP 325MG TABLET 1 EACH PO (06:37)
[2024-03-18 06:38] LABS: Basophils # 0.1 K/mm3 (0-0.2); Basophils % 0.4 % (0.1-2.0); Eosinophils # 0.7 K/mm3 (0.0-0.4); Eosinophils % 5.2 % (0.1-12.0); Hematocrit 32.4 % (37.0-47.0); Lymphocytes # 0.7 K/mm3 (0.7-4.5); Mean Corpuscular Volume 85.3 fl (81-99); Mean Platelet Volume 7.7 fl (7.4-10.4); Monocytes # 0.7 K/mm3 (0.1-1.0); Monocytes % 4.8 % (1.7-9.3); Neutrophils # 11.4 K/mm3 (1.8-7.8); Neutrophils % 84.5 % (37.0-80.0); Platelet Count 270 K/mm3 (142-424); Red Cell Distribution Width 13.8 % (11.5-17.5); White Blood Count 13.5 K/mm3 (4.8-10.8)
[2024-03-18 06:44] LABS: Magnesium 1.9 mg/dl (1.6-2.3)
[2024-03-18 07:41] VITALS: BP 152/86; PULSE 100; RESP 18; TEMP 37; O2SAT 96
[2024-03-18] MEDS: LACTATED RINGERS 1000ML 1,000 ML 125 ML IV (07:56)
[2024-03-18] MEDS: METOPROLOL SUCCINATE XL 25MG TABLET 25 MG PO (08:19)
[2024-03-18] MEDS: FAMOTIDINE 20MG TABLET 20 MG PO ×2 (08:19→20:32)
[2024-03-18] MEDS: AMLODIPINE 2.5MG TABLET 2.5 MG PO (08:19)
[2024-03-18] MEDS: PANTOPRAZOLE 40MG VIAL 40 MG IV (08:19)
[2024-03-18 11:45] VITALS: BP 155/97; PULSE 100; RESP 18; TEMP 36.8; O2SAT 96
--- NOTE | 2024-03-18 12:55 | EXP.PN ---
Subjective *Date: 03/18/24 *Time: 12:55 Exam Data for Last 24 hours Vital signs and Labs for Last 24 Hours: Temp Pulse Resp BP Pulse Ox O2 Del Method O2 Flow Rate 98.2 F 100 H 18 155/97 H 96 Room Air 5 03/18/24 11:45 03/18/24 11:45 03/18/24 11:45 03/18/24 11:45 03/18/24 11:45 03/18/24 11:45 03/17/24 07:22 Laboratory Results - last 24 hr 03/18/24 05:43: Sodium 136, Potassium 3.4 L, Chloride 106, Carbon Dioxide 26, Anion Gap 7.4, BUN 9 D, Creatinine 0.50 L, Estimated Creat Clear 186, Estimated GFR 135, Est GFR ( Amer) 164 D, Glucose 76, Calcium 7.7 L, Total Bilirubin 0.6, AST 21, ALT 12, Alkaline Phosphatase 62, Total Protein 4.8 L, Albumin 2.5 L, Globulin 2.3, Albumin/Globulin Ratio 1.1 03/18/24 06:00: WBC 13.5 H, RBC 3.80 L, Hgb 11.0 L, Hct 32.4 L, MCV 85.3, MCH 29.0, MCHC 34.0, RDW 13.8, Plt Count 270, MPV 7.7, Neut % (Auto) 84.5 H, Lymph % (Auto) 5.0 L, [place] % (Auto) 4.8, Eos % (Auto) 5.2, Baso % (Auto) 0.4, Neut # (Auto) 11.4 H, Lymph # (Auto) 0.7, [place] # (Auto) 0.7, Eos # (Auto) 0.7 H, Baso # (Auto) 0.1 03/18/24 : Magnesium 1.9 I & O for Last 24 hours: Intake & Output 03/15/24 03/16/24 03/17/24 03/18/24 23:59 23:59 23:59 23:59 Intake Total 120 / 4830 6830 / 7455 3506 / 4256 950 / 950 Output Total 390 / 510 520 / 720 1150 / 1150 850 / 850 Balance -270 / 4320 6310 / 6735 2356 / 3106 100 / 100 Weight 73.981 kg 73.93 kg 77.564 kg 80.422 kg Microbiology Reports for the Last 24 Hours: Microbiology 03/14/24 18:39 Blood Blood Culture - Final Moraxella species Staphylococcus capitis Constitutional Constitutional: no acute distress *Routine HEENT Exam Head: Present normocephalic Eye: Present EOMI and PERRL ENT: Present mucous membranes moist *Routine Neck Exam Neck: Present supple; Absent lymphadenopathy *Routine Respiratory Exam Respiratory: Present CTA bilaterally *Routine Cardiovascular Exam Cardiovascular: Present RRR *Routine Abdominal Exam Abdominal: Present tenderness Comments: Moderate tenderness without rebound or guarding, normoactive bowel sounds *Routine Extremities Exam Extremities: Absent cyanosis, clubbing or edema *Routine Skin Exam Skin: Present warm; Absent rash *Routine Neurological Exam Neurological: Present alert and oriented X3 Assessment and Plan *Assessment and plan (1) Pancreatitis: Status: Acute Qualifiers: Acute pancreatitis complication: no infection or necrosis Chronicity: acute Pancreatitis type: idiopathic Qualified Code(s): K85.00 - Idiopathic acute pancreatitis without necrosis or infection Category: Medical Code(s): K85.90 - Acute pancreatitis without necrosis or infection, unspecified (2) Pneumobilia: Status: Acute Category: Medical Code(s): K83.8 - Other specified diseases of biliary tract (3) HTN (hypertension): Status: Acute Qualifiers: Hypertension type: primary hypertension Qualified Code(s): I10 - Essential (primary) hypertension Category: Medical Code(s): I10 - Essential (primary) hypertension (4) 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 On my exam, patient has lying in bed in no acute distress. Reports her abdominal pain is improved, rated at a 4/10 currently. Continues to require inpatient management, still reporting pain, nausea showing improvement. Problems addressed as follows: #Acute pancreatitis #Pneumobilia #History of biliary atresia - Spoke to GI at length, due to patient's anatomy and previous surgery, may benefit from MRCP when her pancreatitis cools down. - GI consulted, s/p EGD on 03/18/24 showed normal upper GI anatomy, small 2 cm hiatal hernia. Required interventional radiology stenting/drainage ~20 years ago. - WBC has improved to 13.5 today, abdominal pain and p.o. tolerance has improved today. Tolerating low residue diet, but continues to have epigastric postprandial pain. ? Anticipate discharge tomorrow as patient's clinical status continues to improve. ? Dilaudid, Toradol pain regimen as needed. ? Will follow-up with GI outpatient, can consider MRCP at that time. ? 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 #Positive blood culture ? 1 out of 2 bottles on showing staph, Moraxella growth on 03/14/2024. Likely contaminant. ? Follow-up repeat blood cultures. #Hypokalemia -Replating. #HTN - Continue home amlodipine 2.5 mg daily along with metoprolol succinate 25 mg daily. DVT prophylaxis: SCDs CODE STATUS: Full code Surrogate decision maker: Nilda [phone] Skin: Low risk Estimated length of stay: Greater than 2 midnights
[2024-03-18] MEDS: POTASSIUM CHLORIDE 20MEQ TAB 40 MEQ PO ×2 (14:08→18:46)
[2024-03-18] MEDS: MAGNESIUM SULFATE IN WATER 2 GM/50 ML PIGGYBACK IV (14:38)
[2024-03-18 15:44] VITALS: BP 150/92; PULSE 100; RESP 15; TEMP 36.8; O2SAT 97
--- NOTE | 2024-03-18 16:30 | PC.NURSE ---
AOX4, TOLERATING ROOM AIR. AMBULATES IN ROOM INDEPENDENTLY. MEDICATED FREQUENTLY FOR PAIN PER MAR.
[2024-03-18 20:00] VITALS: BP 147/81; PULSE 97; RESP 16; TEMP 37; O2SAT 96
[2024-03-18] MEDS: PANTOPRAZOLE 40MG TABLET 40 MG PO (20:32)
[2024-03-18] MEDS: MELATONIN 5MG TABLET 5 MG PO (21:32)
[2024-03-19] VITALS (7 sets, daily range): BP systolic 133–156; BP diastolic 67–93; PULSE 86–109; RESP 16–18; TEMP 36.7–36.9; O2SAT 94–99; BMI 29.5
[2024-03-19] MEDS: KETOROLAC 30MG/ML VIAL 30 MG IV ×4 (00:54→19:50)
[2024-03-19] MEDS: HYDROMORPHONE 2MG/ML SYRINGE 2 MG IV ×4 (03:47→22:05)
[2024-03-19 06:25] LABS: Basophils % 0.2 % (0.1-2.0); Eosinophils # 0.6 K/mm3 (0.0-0.4); Hemoglobin 10.8 g/dL (12.2-16.2); Lymphocytes # 0.9 K/mm3 (0.7-4.5); Lymphocytes % 5.5 % (10-50); Mean Corpuscular HGB Conc 34.8 g/dL (31.8-35.4); Mean Corpuscular Hemoglobin 30.1 pg (27.0-31.2); Mean Corpuscular Volume 86.3 fl (81-99); Mean Platelet Volume 7.6 fl (7.4-10.4); Monocytes # 0.8 K/mm3 (0.1-1.0); Monocytes % 4.9 % (1.7-9.3); Neutrophils # 13.3 K/mm3 (1.8-7.8); Neutrophils % 85.3 % (37.0-80.0); Platelet Count 261 K/mm3 (142-424); Red Blood Count 3.59 M/mm3 (4.20-5.40); Red Cell Distribution Width 13.6 % (11.5-17.5); White Blood Count 15.6 K/mm3 (4.8-10.8)
[2024-03-19 06:29] LABS: MANUAL DIFFERENTIAL MANUAL DIFFERENTIAL (MANUAL DIFF)
[2024-03-19 06:32] LABS: Alanine Aminotransferase 15 U/L (12-78); Albumin Level 2.8 g/dl (3.5-5.0); Albumin/Globulin Ratio 1.2 (1.1-1.8); Alkaline Phosphatase 82 U/L (38-126); Anion Gap 9.6 mEq/L (5-15); Aspartate Amino Transferase 23 U/L (14-36); Bilirubin,Total 0.6 mg/dl (0.2-1.3); Blood Urea Nitrogen 6 mg/dl (7-17); Carbon Dioxide 24 mmol/L (22.0-30.0); Chloride 106 mmol/L (98-107); Creatinine Clearance Estimated 186 mL/min (50-200); Estimated Glomerular Filt Rate 135 ml/min (>60); GFR (African American) 164 ML/MIN (>60); Globulin 2.4 g/dL (1.3-3.2); Glucose 79 mg/dl (74-100); Potassium 3.6 mmoL/L (3.5-5.1); Sodium 136 mmol/L (136-145); Total Protein,Serum 5.2 g/dl (6.3-8.2)
[2024-03-19] MEDS: AMLODIPINE 2.5MG TABLET 2.5 MG PO (08:27)
[2024-03-19] MEDS: METOPROLOL SUCCINATE XL 25MG TABLET 25 MG PO (08:27)
[2024-03-19] MEDS: 0.9 % SODIUM CHLORIDE 1000ML 1,000 ML 999 ML IV (08:27)
[2024-03-19] MEDS: FAMOTIDINE 20MG TABLET 20 MG PO ×2 (08:27→21:41)
[2024-03-19] MEDS: GLYCERIN ADULT 3GM SUPP 3 GM RC (09:23)
[2024-03-19] MEDS: POLYETHYLENE GLYCOL 3350 17 GM PACKET PO (09:23)
[2024-03-19] MEDS: BISACODYL 5MG TABLET 10 MG PO (09:23)
[2024-03-19 09:33] LABS: Eosinophils % 3 % (0-3); Lymphocytes % 4 % (10-50); Monocytes % 2 % (2-9); Neutrophils % 91 % (42-76); Platelet Estimate Normal; RBC Morphology Normal; Total Cells Counted 100
--- NOTE | 2024-03-19 14:27 | CT_ITS ---
FINAL REPORT TECHNIQUE: Thin section axial images are obtained through the abdomen and pelvis after intravenous contrast. Reconstruction images were obtained from the axial data. Exam was performed using dose reduction techniques. CLINICAL HISTORY: Follow-up pancreatitis COMPARISON: 03/14/2024 FINDINGS: LUNG BASES: There are new small to moderate bilateral pleural effusions. There is new right middle lobe, lingular, and bilateral lower lobe airspace disease, likely atelectasis. LIVER: Homogeneous. No focal lesion. Pneumobilia is again noted. GALLBLADDER/BILIARY SYSTEM: The gallbladder is absent. SPLEEN: Unremarkable. PANCREAS: There has been interval worsening of abnormal attenuation surrounding the pancreas. There has been interval increase in abnormal density surrounding the central mesenteric vessels, inferior to the pancreas which is not simple fluid but may be blood product. ADRENALS: Unremarkable. KIDNEYS/URETERS/BLADDER: No hydronephrosis, renal mass, or renal stone. Unremarkable urinary bladder. GI TRACT: There is wall thickening of the distal stomach that has worsened since the prior exam. No small bowel obstruction or dilatation. The appendix is not visualized. There is a large amount of stool in the proximal portions of the colon. PELVIC ORGANS: Unremarkable for age. LYMPH NODES/RETROPERITONEUM/MESENTERY: No lymphadenopathy. No abdominal aortic aneurysm. There are venous collaterals within the mesentery of the right lower quadrant. These were present on the prior exam. ABDOMINAL WALL: The abdominal wall is intact. FREE FLUID: There has been interval development of a small amount of abdominal and pelvic ascites. BONES: No acute osseous abnormality. IMPRESSION: 1. New small to moderate bilateral pleural effusions and basilar atelectasis. 2. Worsening acute pancreatitis with new ascites. 3. Worsening density within the root of the mesentery that is not simple fluid. Developing hemorrhagic or proteinaceous pseudocyst is a consideration. Close follow-up recommended. Authenticated and ERN
[2024-03-19] MEDS: SODIUM CHLORIDE 0.9% 10ML SYR (RAD ONLY) 10 ML IV (14:50)
[2024-03-19] MEDS: IOPAMIDOL-370 (76%);100ML BOTTLE 75 ML IV (14:50)
[2024-03-19 17:08] LABS: Lactate Dehydrogenase 313 U/L (313-618)
--- NOTE | 2024-03-19 18:08 | PC.NURSE ---
ACCEPTED TO IN [place] AWAITING BED ASSIGNMENT.
--- NOTE | 2024-03-19 18:27 | EXP.DC.SUM ---
General Admission date:: 03/14/24 HPI HPI HPI: Gardenia Childress is a 44-year-old female past medical history significant for biliary atresia with repair when she was 30, HTN who presents emergency room tonight with complaints of severe abdominal pain. Ms. Childress is accompanied by her family who is at bedside. Reports that she ate dinner this evening and developed significant severe epigastric pain. Patient reports that she has had pancreatitis in the past. Reports it feels like her prior bouts of pancreatitis reporting epigastric pain rated at a 5/10 currently. Multiple episodes of nonbloody biliary nonbloody emesis. Still has her appendix and her gallbladder. Denies any fever. Denies any alcohol intake. No cough, chest pain, shortness of breath noted. No unilateral weakness, numbness, tingling. Does not take any blood thinners. Denies tobacco use, alcohol use, illicit drug use. Lab work in the ER showed elevated white count of 21,000, platelets slightly elevated at 450. Potassium a bit low at 3.2, lactic acid elevated at 2.7. Lipase elevated [id number]. Patient was given 1 L IV fluid bolus in the ER and pain medication as well as antiemetics. CT of the abdomen pelvis remarkable for pneumobilia as well as pancreatitis. She will be admitted to the hospitalist service for acute pancreatitis. Former history of biliary atresia with surgical repair. The patient presents with acute pancreatitis and lipase of 58,925. Last bout of pancreatitis was more than 20 years ago. 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 The patient is not yet pain controlled and has pain this morning with nausea and vomiting. She reports no use of alcohol, tobacco or pain medication at home. Her symptoms began yesterday. Hospital Course Hospital Course Hospital Course: Assessment: This is a 44-year-old female being admitted for acute pancreatitis. #Acute pancreatitis #Pneumobilia #History of biliary atresia - Spoke to GI at length, due to patient's anatomy and previous surgery, may benefit from MRCP when her pancreatitis cools down. - GI consulted, s/p EGD on 03/18/24 showed normal upper GI anatomy, small 2 cm hiatal hernia. Required interventional radiology stenting/drainage ~20 years ago. - WBC has improved to 15.6 today, stil having difficulty with PO tolerance due to pain. - Repeat CT revealed Worsening acute pancreatitis with new ascites, Worsening density within the root of the mesentery that is not simple fluid, Developing hemorrhagic or proteinaceous pseudocyst is a consideration. - Hgb has downtrended from 13.5 to 10.8 in the past 2 days, 15.5 on admission. ? Dilaudid, Toradol pain regimen as needed. ? 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 - Given the possibility of developing hemorrhage around/within the pancreas as above, decision was made to transfer patient to high level facility. [facility] graciously accepted patient for transfer. #Positive blood culture ? 1 out of 2 bottles on showing staph, Moraxella growth on 03/14/2024. Likely contaminant. ? Follow-up repeat blood cultures. #Hypokalemia - Repleting. #HTN - Continue home amlodipine 2.5 mg daily along with metoprolol succinate 25 mg daily. Exam Data for Last 24 hours Vital signs and Labs for Last 24 Hours: Temp Pulse Resp BP Pulse Ox O2 Del Method O2 Flow Rate 98.3 F 98 H 18 133/67 97 Room Air 5 03/19/24 16:00 03/19/24 16:00 03/19/24 16:00 03/19/24 16:00 03/19/24 16:00 03/19/24 18:01 03/17/24 07:22 Laboratory Results - last 24 hr 03/19/24 05:51: WBC 15.6 H, RBC 3.59 L, Hgb 10.8 L, Hct 31.0 L, MCV 86.3, MCH 30.1, MCHC 34.8, RDW 13.6, Plt Count 261, MPV 7.6, Neut % (Auto) 85.3 H, Lymph % (Auto) 5.5 L, Price % (Auto) 4.9, Eos % (Auto) 4.0, Baso % (Auto) 0.2, Neut # (Auto) 13.3 H, Lymph # (Auto) 0.9, Price # (Auto) 0.8, Eos # (Auto) 0.6 H, Baso # (Auto) 0.0, Total Counted 100, Neutrophils % (Manual) 91 H, Lymphocytes % (Manual) 4 L, Monocytes % (Manual) 2, Eosinophils % (Manual) 3, Platelet Estimate Normal, RBC Morphology Normal, Sodium 136, Potassium 3.6, Chloride 106, Carbon Dioxide 24, Anion Gap 9.6, BUN 6 L D, Creatinine 0.50 L, Estimated Creat Clear 186, Estimated GFR 135, Est GFR ( Amer) 164, Glucose 79, Calcium 8.0 L, Magnesium 2.0, Total Bilirubin 0.6, AST 23, ALT 15, Alkaline Phosphatase 82, Total Protein 5.2 L, Albumin 2.8 L D, Globulin 2.4, Albumin/Globulin Ratio 1.2 03/19/24 05:57: Lactate Dehydrogenase 313 I & O for Last 24 hours: Intake & Output 03/16/24 03/17/24 03/18/24 03/19/24 23:59 23:59 23:59 23:59 Intake Total 6830 / 7455 3506 / 4256 1130 / 1380 1030 / 1030 Output Total 520 / 720 1150 / 1150 2150 / 2450 900 / 900 Balance 6310 / 6735 2356 / 3106 -1020 / -1070 130 / 130 Weight 73.93 kg 77.564 kg 80.422 kg 80.422 kg Microbiology Reports for the Last 24 Hours: Microbiology 03/18/24 08:08 Blood Blood Culture - Preliminary NO GROWTH AFTER 24 HOURS 03/18/24 08:04 Blood Blood Culture - Preliminary NO GROWTH AFTER 24 HOURS 03/14/24 18:39 Blood Blood Culture - Preliminary NO GROWTH AFTER 4 DAYS Constitutional Constitutional: no acute distress *Routine HEENT Exam Head: Present normocephalic Eye: Present EOMI and PERRL ENT: Present mucous membranes moist *Routine Neck Exam Neck: Present supple; Absent lymphadenopathy *Routine Respiratory Exam Respiratory: Present CTA bilaterally *Routine Cardiovascular Exam Cardiovascular: Present RRR *Routine Abdominal Exam Abdominal: Present tenderness Comments: Moderate tenderness without rebound or guarding, normoactive bowel sounds *Routine Extremities Exam Extremities: Absent cyanosis, clubbing or edema *Routine Skin Exam Skin: Present warm; Absent rash *Routine Neurological Exam Neurological: Present alert and oriented X3 Results Data Completed and Pending Labs on day of discharge: Labs from last 24 hours 03/19/24 03/19/24 05:57 05:51 WBC 15.6 H RBC 3.59 L Hgb 10.8 L Hct 31.0 L MCV 86.3 MCH 30.1 MCHC 34.8 RDW 13.6 Plt Count 261 MPV 7.6 Neut % (Auto) 85.3 H Lymph % (Auto) 5.5 L Price % (Auto) 4.9 Eos % (Auto) 4.0 Baso % (Auto) 0.2 Neut # (Auto) 13.3 H Lymph # (Auto) 0.9 Price # (Auto) 0.8 Eos # (Auto) 0.6 H Baso # (Auto) 0.0 Total Counted 100 Neutrophils % (Manual) 91 H Lymphocytes % (Manual) 4 L Monocytes % (Manual) 2 Eosinophils % (Manual) 3 Platelet Estimate Normal RBC Morphology Normal Sodium 136 Potassium 3.6 Chloride 106 Carbon Dioxide 24 Anion Gap 9.6 BUN 6 L D Creatinine 0.50 L Estimated Creat Clear 186 Estimated GFR 135 Est GFR ( Amer) 164 Glucose 79 Calcium 8.0 L Magnesium 2.0 Total Bilirubin 0.6 AST 23 ALT 15 Alkaline Phosphatase 82 Lactate Dehydrogenase 313 Total Protein 5.2 L Albumin 2.8 L D Globulin 2.4 Albumin/Globulin Ratio 1.2 Preliminary micro results at discharge 03/18/24 08:08 Blood Culture - Preliminary Blood NO GROWTH AFTER 24 HOURS 03/18/24 08:04 Blood Culture - Preliminary Blood NO GROWTH AFTER 24 HOURS 03/14/24 18:39 Blood Culture - Preliminary Blood NO GROWTH AFTER 4 DAYS DS: Diagnosis Discharge Diagnosis (1) Pancreatitis: Status: Acute Code(s): K85.90 - Acute pancreatitis without necrosis or infection, unspecified Qualifiers: Acute pancreatitis complication: no infection or necrosis Chronicity: acute Pancreatitis type: idiopathic Qualified Code(s): K85.00 - Idiopathic acute pancreatitis without necrosis or infection (2) Pneumobilia: Status: Acute Code(s): K83.8 - Other specified diseases of biliary tract (3) HTN (hypertension): Status: Acute Code(s): I10 - Essential (primary) hypertension Qualifiers: Hypertension type: primary hypertension Qualified Code(s): I10 - Essential (primary) hypertension (4) Biliary atresia: Status: Chronic Code(s): Q44.2 - Atresia of bile ducts Problem details: surgery 2010 Meds Home Medications and Allergies Home Medications ?Medication ?Instructions ?Recorded ?Confirmed ?Type amlodipine 2.5 mg tablet 2.5 mg PO DAILY 03/14/24 03/15/24 History ergocalciferol (vitamin D2) 1,250 1,250 mcg PO WEEKLY 03/14/24 03/15/24 History mcg (50,000 unit) capsule metoprolol succinate 25 mg 25 mg PO DAILY 03/14/24 03/15/24 History tablet,extended release 24 hr medroxyprogesterone 150 mg/mL 150 mg IM Q90D 03/15/24 03/15/24 History intramuscular syringe New Prescriptions to Start Prescriptions: Allergies Allergy/AdvReac Type Severity Reaction Status Date / Time acetaminophen (From Vicodin) Allergy Rash Verified 03/14/24 18:16 hydrocodone (From Vicodin) Allergy Rash Verified 03/14/24 18:16 morphine Allergy Rash Verified 03/14/24 18:16 Discharge Plan Disposition Patient Disposition: Xfer Short-Term Hosp Condition: Fair Discharge Order Discharge Orders: Discharge Order (Routine); Ordered 03/19/24 Ordered By: Ulysses Childs Follow up Plan Prescriptions/Medication Reconciliation: Continued amlodipine 2.5 mg tablet 2.5 mg PO DAILY Patient Comments: TAKE 1 TABLET BY MOUTH ONCE DAILY . APPOINTMENT REQUIRED FOR FUTURE REFILLS metoprolol succinate 25 mg tablet extended release 24 hr 25 mg PO DAILY Patient Comments: TAKE 1 TABLET BY MOUTH ONCE DAILY ergocalciferol (vitamin D2) 1,250 mcg (50,000 unit) capsule 1,250 mcg PO WEEKLY Patient Comments: TAKE 1 CAPSULE BY MOUTH ONCE A WEEK medroxyprogesterone 150 mg/mL syringe 150 mg IM Q90D Patient Comments: INJECT 1 SYRINGE INTRAMUSCULARLY DIRECTED FOR 1 DOSE Problem Reconciliation Problems Reviewed?: Yes Patient Discharge Instructions Patient Instructions: Low-Fiber/Low-Residue Diet, DI for Pancreatitis, GERD Diet Print Language: Chinese Providers Primary Care Provider: Mini Reeder Admit Provider: Abdifatah Patel Attending Provider: Abdifatah Patel
[2024-03-19] MEDS: PANTOPRAZOLE 40MG TABLET 40 MG PO (21:41)
[2024-03-19] MEDS: MELATONIN 5MG TABLET 5 MG PO (21:41)
--- NOTE | 2024-03-19 22:10 | PC.NURSE ---
Addendum entered by Emely Arroyo RN 03/19/24 22:22: Called at 22:15 to give report to Katerina STEELE at . Original Note: At 22:07, in [place] called at this time to report that a bed assignment is available for the patient. Transporting to Unit 8 ([facility]) Room 8434
[2024-04-07 11:23] LABS: PDF: SCANNED IMAGE
== END 2024-03-19 23:16 | disposition short-term general hospital (02) | DRG 438 ==
LOC: ER 20:10 → 2ND 03-15 01:00
PROVIDERS: Internal Medicine Gastroenterology; Nurse Practitioner Acute Care; Physician Assistant; Student in an Organized Health Care Education/Training Program; Admitting Provider Internal Medicine Adolescent Medicine; Emergency Provider Emergency Medicine; PCP Family Medicine; Visit Provider Internal Medicine Adolescent Medicine
PROC: 0DJ08ZZ Inspection of Upper Intestinal Tract, Via Natural or Artificial Opening Endoscopic (ICD-10-PCS; principal; 2024-03-17 07:30)
DX: K85.90 Acute pancreatitis without necrosis or infection, unspecified (principal); Q44.2 Atresia of bile ducts; K83.8 Other specified diseases of biliary tract; I10 Essential (primary) hypertension; E87.6 Hypokalemia; K44.9 Diaphragmatic hernia without obstruction or gangrene
CPT/HCPCS: 36415; 74177; 76705; 80053; 80061; 81001; 83605; 83615; 83690; 83735; 84100; 84145; 84484; 84703; 85007; 85025; 85651; 86305; 87040; 87186; 93005; 99291; J0295; J0780; J1171; J1885; J2405; J2550; J3010; J3475; J7030; J7120; Q9967